=== PATIENT | female | born 1960 | race Caucasian/White ===

== ENCOUNTER 2018-09-24 17:25 | Observation (INO) | payer OTHER ==
[2018-09-24 18:11] LABS: Absolute Lymphocytes (CBC) 2.4 K/uL (0.7-4.9); Absolute Monocytes 0.5 K/uL (0.1-1.3); Absolute Neutrophil 3.2 K/uL (1.8-8.0); Basophils % 0.2 % (0-1.3); Eosinophils % 4.4 % (0-4.4); Hematocrit 39.1 % (36.0-45.0); Lymphocytes % 37.8 % (15.3-44.8); MPV 9.4 fL (7.6-11.3); Monocytes % 7.7 % (3.3-12.3); RBC Red Blood Cell Count 4.21 M/uL (3.86-4.86)
[2018-09-24] MEDS ORDERED: ENOXAPARIN 60 MG/0.6 ML SQ ONE (18:11)
[2018-09-24 18:12] LABS: Protime INR 0.96
[2018-09-24 18:32] LABS: ALT/SGPT 31 U/L (12-78); AST/SGOT 20 U/L (15-37); Albumin 4.6 g/dL (3.4-5.0); Alkaline Phosphatase 106 U/L (45-117); BUN Blood Urea Nitrogen 12 mg/dL (7-18); Bicarbonate 27 mmol/L (21-32); Bilirubin Direct < 0.1 mg/dL (0-0.2); Bilirubin Total 0.3 mg/dL (0.2-1.0); Glucose Level 122 mg/dL (74-106); Magnesium 2.4 mg/dL (1.8-2.4); NT PRO-BNP 16 pg/mL (<125); Potassium 3.5 mmol/L (3.5-5.1); Protein, Total 8.1 g/dL (6.4-8.2); Sodium Level 140 mmol/L (136-145); Troponin (Emerg Dept Use Only) < 0.02 ng/mL (0.0-0.045)
--- NOTE | 2018-09-24 19:06 | RAD REPORT ---
EXAM DESCRIPTION: RAD - Chest Single View - 09/24/2018 6:52 pm CLINICAL HISTORY: Chest pain COMPARISON: July 2017 TECHNIQUE: AP portable chest image was obtained 1819 hours . FINDINGS: No focal lung parenchymal process. Interstitial markings are similar to comparison. Heart and vasculature are normal. No measurable pleural effusion and no pneumothorax. No acute bony abnorma lity seen. No acute aortic findings suspected. IMPRESSION: No acute cardiopulmonary process. No significant interval change.
--- NOTE | 2018-09-24 19:28 | EDPHYS ---
Physician Documentation [facility] Name: Dolores Pérez Age: 58 yrs Sex: Female : 1960 Arrival Date: 09/24/2018 Time: 17:26 Bed 20 Private MD: Melvin Thao R ED Physician Xavi Crow HPI: 09/24 18:00 This 58 yrs old Female presents to ER via Ambulatory with complaints of Chest snw Pain. 18:00 Onset: The symptoms/episode began/occurred 1.5 hour(s) ago, at 16:30. Associated signs snw and symptoms: The patient has no apparent associated signs or symptoms. Modifying factors: The patient symptoms are alleviated by nothing. The patient has experienced a previous episode, approximately 2 years ago, but today's symptoms are worse. It is unknown whether or not the patient has recently seen a physician, sees Dr. Thao. Historical: - Allergies: 17:52 Aspirin; jl7 17:52 NSAIDS; jl7 17:52 peanuts; jl7 17:52 Sulfa (Sulfonamide Antibiotics); jl7 - Home Meds: 17:52 Diltiazem Oral [Active]; levothyroxine 125 mcg tab [Active]; Lipitor Oral [Active]; jl7 losartan Oral [Active]; Omeprazole Oral [Active]; Plavix Oral [Active]; - PMHx: 17:52 Asthma; High Cholesterol; Hypertension; Hypothyroidism; jl7 - PSHx: 17:52 Vocal Nodules removed; Rhinoplasty; jl7 - Immunization history:: Adult Immunizations unknown. - Social history:: Smoking status: Patient/guardian denies using tobacco. - Ebola Screening: : No symptoms or risks identified at this time. ROS: 17:58 Constitutional: Negative for fever, chills, and weight loss, Eyes: Negative for injury, snw pain, redness, and discharge, ENT: Negative for injury, pain, and discharge, Neck: Negative for injury, pain, and swelling, Respiratory: Negative for shortness of breath, cough, wheezing, and pleuritic chest pain, Abdomen/GI: Negative for abdominal pain, nausea, vomiting, diarrhea, and constipation, Back: Negative for injury and pain, : Negative for injury, bleeding, discharge, and swelling, MS/Extremity: Negative for injury and deformity, Skin: Negative for injury, rash, and discoloration, Neuro: Negative for headache, weakness, numbness, tingling, and seizure, Psych: Negative for depression, anxiety, suicide ideation, homicidal ideation, and hallucinations. 17:58 Cardiovascular: Positive for chest pain, of the left breast. Exam: 17:58 Head/Face: Normocephalic, atraumatic. Eyes: Pupils equal round and reactive to light, snw extra-ocular motions intact. Lids and lashes normal. Conjunctiva and sclera are non-icteric and not injected. Cornea within normal limits. Periorbital areas with no swelling, redness, or edema. ENT: Nares patent. No nasal discharge, no septal abnormalities noted. Tympanic membranes are normal and external auditory canals are clear. Oropharynx with no redness, swelling, or masses, exudates, or evidence of obstruction, uvula midline. Mucous membranes moist. Neck: Trachea midline, no thyromegaly or masses palpated, and no cervical lymphadenopathy. Supple, full range of motion without nuchal rigidity, or vertebral point tenderness. No Meningismus. Chest/axilla: Normal chest wall appearance and motion. Nontender with no deformity. No lesions are appreciated. Cardiovascular: Regular rate and rhythm with a normal S1 and S2. No gallops, murmurs, or rubs. Normal PMI, no JVD. No pulse deficits. Respiratory: Lungs have equal breath sounds bilaterally, clear to auscultation and percussion. No rales, rhonchi or wheezes noted. No increased work of breathing, no retractions or nasal flaring. Abdomen/GI: Soft, non-tender, with normal bowel sounds. No distension or tympany. No guarding or rebound. No evidence of tenderness throughout. Back: No spinal tenderness. No costovertebral tenderness. Full range of motion. MS/ Extremity: Pulses equal, no cyanosis. Neurovascular intact. Full, normal range of motion. Neuro: Awake and alert, GCS 15, oriented to person, place, time, and situation. Cranial nerves II-XII grossly intact. Motor strength 5/5 in all extremities. Sensory grossly intact. Cerebellar exam normal. Normal gait. Psych: Awake, alert, with orientation to person, place and time. Behavior, mood, and affect are within normal limits. 17:58 Constitutional: The patient appears alert, awake, anxious, obese, uncomfortable, hyperemic 17:58 Skin: Appearance: Color: erythematous, Temperature: cool, Moisture: dry. Vital Signs: 17:52 BP 157 / 70; Pulse 77; Resp 16 S; Pulse Ox 99% on R/A; Weight 68.04 kg (R); Height 5 jl7 ft. 7 in. (170.18 cm) (R); Pain 8/10; 19:15 BP 122 / 62; Pulse 67; Resp 18; Pulse Ox 98% on R/A; tl2 17:52 Body Mass Index 23.49 (68.04 kg, 170.18 cm) jl7 MDM: 17:43 Patient medically screened. snw 19:24 Data reviewed: vital signs, nurses notes. Data interpreted: Pulse oximetry: on room air snw is 98 %. Interpretation: normal. Counseling: I had a detailed discussion with the patient and/or guardian regarding: the historical points, exam findings, and any diagnostic results supporting the discharge/admit diagnosis, lab results, radiology results. Response to treatment: the patient's symptoms have mildly improved after treatment, 2/10 chest pain. Physician consultation: Melvin Thao MD was called at 19:26, was contacted at 19:26, regarding admission, to the telemetry unit. would like consultation with Dr. Dr. Genao. 19:26 Physician consultation: Dorian Etienne MD was contacted at 19:26, pt to Obs admit for snw Chest pain. 09/24 17:44 Order name: Basic Metabolic Panel; Complete Time: 18:35 snw 09/24 17:44 Order name: CBC with Diff; Complete Time: 18:15 snw 09/24 17:44 Order name: LFT's; Complete Time: 18:35 snw 09/24 17:44 Order name: Magnesium; Complete Time: 18:35 snw 09/24 17:44 Order name: NT PRO-BNP; Complete Time: 18:35 snw 09/24 17:44 Order name: PT-INR; Complete Time: 18:15 snw 09/24 17:44 Order name: Troponin (emerg Dept Use Only); Complete Time: 18:35 snw 09/24 17:44 Order name: XRAY Chest (1 view); Complete Time: 19:12 snw 09/24 17:44 Order name: EKG; Complete Time: 17:45 snw 09/24 17:44 Order name: Cardiac monitoring; Complete Time: 18:36 snw 09/24 17:44 Order name: EKG - Nurse/Tech; Complete Time: 18:36 snw 09/24 17:44 Order name: IV Saline Lock; Complete Time: 18:36 snw 09/24 17:57 Order name: TSH; Complete Time: 19:28 snw 09/24 17:44 Order name: Labs collected and sent; Complete Time: 18:36 snw 09/24 17:44 Order name: O2 Per Protocol; Complete Time: 18:36 snw 09/24 17:44 Order name: O2 Sat Monitoring; Complete Time: 17:58 snw Administered Medications: 18:10 Drug: Lovenox 1 mg/kg Route: Sub-Q; Site: left upper abdomen; jl7 20:56 Follow up: Response: No adverse reaction tl2 Disposition: 09/25 07:21 Co-signature as Attending Physician, Xavi Crow MD I agree with the assessment and kdr plan of care. Disposition: 09/24/18 19:27 Hospitalization ordered by Melvin Thao for Observation. Preliminary diagnosis is Chest pain, unspecified. - Bed requested for Telemetry/MedSurg (observation). - Status is Observation. tl2 - Condition is Stable. - Problem is an acute exacerbation. - Symptoms are unchanged. UTI on Admission? No Signatures: Dispatcher [employer] EDMS Xavi Crow MD MD [facility] Esperanza Redd, CARTON FORMING MACHINE TENDER-C CARTON FORMING MACHINE TENDER-Csnw Ainsley Jordan RN RN cg Hananh Rubin RN RN tl2 Dewayne Coleman RN RN jl7 Corrections: (The following items were deleted from the chart) 09/24 19:53 19:27 Hospitalization Ordered by Melvin Thao MD for Observation. Preliminary diagnosis cg is Chest pain, unspecified. Bed requested for Telemetry/MedSurg (observation). Status is Observation. Condition is Stable. Problem is an acute exacerbation. Symptoms are unchanged. UTI on Admission? No. snw 20:57 19:53 09/24/2018 19:27 Hospitalization Ordered by Melvin Thao MD for Observation. tl2 Preliminary diagnosis is Chest pain, unspecified. Bed requested for Telemetry/MedSurg (observation). Status is Observation. Condition is Stable. Problem is an acute exacerbation. Symptoms are unchanged. UTI on Admission? No. cg
--- NOTE | 2018-09-24 19:28 | ER ---
Nurse's Notes [facility] Name: Dolores Pérez Age: 58 yrs Sex: Female : 1960 Arrival Date: 09/24/2018 Time: 17:26 Bed 20 Private MD: Melvin Thao R Diagnosis: Chest pain, unspecified Presentation: 09/24 17:46 Presenting complaint: Patient states: Intermittent sharp substernal chest pain started jl7 about 1430 today; bottom of left foot is tingling and hurting hurting. Transition of care: patient was not received from another setting of care. Onset of symptoms was September 24, 2018 at 14:30. Risk Assessment: Do you want to hurt yourself or someone else? Patient reports no desire to harm self or others. Initial Sepsis Screen: Does the patient meet any 2 criteria? No. Patient's initial sepsis screen is negative. Does the patient have a suspected source of infection? No. Patient's initial sepsis screen is negative. Care prior to arrival: None. 17:46 Method Of Arrival: Ambulatory [facility] 17:46 Acuity: AARON 3 jl7 Triage Assessment: 17:52 General: Appears in no apparent distress. uncomfortable, Behavior is calm, cooperative, jl7 appropriate for age. Pain: Complains of pain in mid-sternal area Pain does not radiate. Pain currently is 8 out of 10 on a pain scale. Quality of pain is described as sharp, Pain began 4 hours ago. Is intermittent. EENT: No signs and/or symptoms were reported regarding the EENT system. Neuro: Level of Consciousness is awake, alert, obeys commands, Oriented to person, place, time, situation. Cardiovascular: Patient's skin is warm and dry. Respiratory: Airway is patent Respiratory effort is even, unlabored, Respiratory pattern is regular, symmetrical. GI: No signs and/or symptoms were reported involving the gastrointestinal system. Patient currently denies diarrhea, nausea, vomiting. : No signs and/or symptoms were reported regarding the genitourinary system. Derm: Skin is pink, warm \T\ dry. Musculoskeletal: No signs and/or symptoms reported regarding the musculoskeletal system. Historical: - Allergies: 17:52 Aspirin; jl7 17:52 NSAIDS; jl7 17:52 peanuts; jl7 17:52 Sulfa (Sulfonamide Antibiotics); jl7 - Home Meds: 17:52 Diltiazem Oral [Active]; levothyroxine 125 mcg tab [Active]; Lipitor Oral [Active]; jl7 losartan Oral [Active]; Omeprazole Oral [Active]; Plavix Oral [Active]; - PMHx: 17:52 Asthma; High Cholesterol; Hypertension; Hypothyroidism; jl7 - PSHx: 17:52 Vocal Nodules removed; Rhinoplasty; jl7 - Immunization history:: Adult Immunizations unknown. - Social history:: Smoking status: Patient/guardian denies using tobacco. - Ebola Screening: : No symptoms or risks identified at this time. Screenin:55 Abuse screen: Denies threats or abuse. Denies injuries from another. Nutritional jl7 screening: No deficits noted. Tuberculosis screening: No symptoms or risk factors identified. Fall Risk IV access (20 points). Total Ta Fall Scale indicates No Risk (0-24 pts). Assessment: 17:55 General: See triage assessment. jl7 19:16 Reassessment: Patient appears in no apparent distress at this time. Patient and/or tl2 family updated on plan of care and expected duration. Pain level reassessed. Patient is alert, oriented x 3, equal unlabored respirations, skin warm/dry/pink. awaiting results. 20:52 Reassessment: Patient appears in no apparent distress at this time. pt stable and ready tl2 for transport to floor. Pain: Denies pain. Vital Signs: 17:52 BP 157 / 70; Pulse 77; Resp 16 S; Pulse Ox 99% on R/A; Weight 68.04 kg (R); Height 5 jl7 ft. 7 in. (170.18 cm) (R); Pain 8/10; 19:15 BP 122 / 62; Pulse 67; Resp 18; Pulse Ox 98% on R/A; tl2 17:52 Body Mass Index 23.49 (68.04 kg, 170.18 cm) jl7 ED Course: 17:26 Patient arrived in ED. dl4 17:26 Melvin Thao MD is Private Physician. dl4 17:43 Esperanza Redd FNP-C [facility]. snw 17:43 Xavi Crow MD is Attending Physician. snw 17:46 Dewayne Coleman RN is Primary Nurse. jl7 17:48 Triage completed. jl7 17:52 Arm band placed on right wrist. jl7 17:55 Patient has correct armband on for positive identification. Bed in low position. Call jl7 light in reach. Side rails up X 1. telemetry monitor on. Pulse ox on. NIBP on. 17:55 Initial lab(s) drawn, by me, sent to lab. Patient maintains SpO2 saturation greater jl7 than 95% on room air. 18:09 EKG done, by player piano technician. reviewed by Xavi Crow MD. 3 18:52 XRAY Chest (1 view) In Process Unspecified. EDMS 19:27 Melvin Thao MD is Hospitalizing Provider. snw 20:52 No provider procedures requiring assistance completed. Patient admitted, IV remains in tl2 place. Administered Medications: 18:10 Drug: Lovenox 1 mg/kg Route: Sub-Q; Site: left upper abdomen; jl7 20:56 Follow up: Response: No adverse reaction tl2 Outcome: 19:27 Decision to Hospitalize by Provider. snw 20:52 Admitted to Tele accompanied by tech, family with patient, via wheelchair, room 415, tl2 with chart, Report called to JADEN Guerrero 20:52 Condition: stable 20:52 Discharge instructions given to patient, Instructed on the need for admit. 20:57 Patient left the ED. tl2 Signatures: Dispatcher [employer] EDNM Esperanza Redd, PIER WORKER-C PIER WORKER-Csnw Hannah Rubin RN RN tl2 Dewayne Coleman RN RN jl7 Christiane Tejada 3 Sami Mcgee 4
[2018-09-25 00:34] VITALS: BMI 23.5
[2018-09-25 04:55] LABS: Absolute Lymphocytes (CBC) 2.4 K/uL (0.7-4.9); Absolute Monocytes 0.4 K/uL (0.1-1.3); Absolute Neutrophil 2.6 K/uL (1.8-8.0); Basophils % 0.3 % (0-1.3); Eosinophils % 4.4 % (0-4.4); Lymphocytes % 42.9 % (15.3-44.8); MPV 9.8 fL (7.6-11.3); Monocytes % 7.1 % (3.3-12.3); RBC Red Blood Cell Count 3.76 M/uL (3.86-4.86)
[2018-09-25 05:06] LABS: BUN Blood Urea Nitrogen 10 mg/dL (7-18); Bicarbonate 33 mmol/L (21-32); Glucose Level 112 mg/dL (74-106); Potassium 3.9 mmol/L (3.5-5.1); Sodium Level 144 mmol/L (136-145)
[2018-09-25 05:38] LABS: Urine Appearance CLEAR; Urine Bilirubin NEGATIVE (NEG); Urine Blood NEGATIVE (NEG); Urine Color YELLOW; Urine Glucose 1+ (NEG); Urine Protein NEGATIVE (NEG); Urine Urobilinogen 0.2 mg/dL (0.2-1.0)
[2018-09-25 05:46] LABS: Urine Microscopic Reflex NO UMIC
--- NOTE | 2018-09-25 06:02 | EKG ---
Test Date: 2018-09-24 Test Time: 17:36:18 Computer Scientist: BRYSON MEASUREMENT RESULTS: Intervals: Rate: 68 NH: 156 QRSD: 90 QT: 408 QTc: 433 [place]: P: 58 NH: 156 QRS: 30 T: 13 INTERPRETIVE STATEMENTS: Normal sinus rhythm Normal ECG Compared to ECG 11/09/2016 10:25:03 no significant change from previous ECG Electronically Signed On 09-25-18 06:01:54 CDT by Jax Genao
[2018-09-25] MEDS ORDERED: ALBUTEROL INHALER 60 PUFF/8 GM IH PRN (08:17)
[2018-09-25] MEDS ORDERED: ALPRAZOLAM 0.25 MG TABLET PO SCH ×2 (09:00→12:00)
[2018-09-25] MEDS ORDERED: HOME MED 1 EA UNK (Budesonide/Formoterol Fumarate [Symbicort 80-4.5 Mcg Inhaler] 2 PUFF) IH SCH (09:00)
[2018-09-25] MEDS ORDERED: MONTELUKAST 10 MG TAB PO SCH (09:00)
[2018-09-25] MEDS ORDERED: LOSARTAN POTASSIUM 50 MG TABLET PO SCH (09:00)
[2018-09-25] MEDS ORDERED: CLOPIDOGREL 75 MG TABLET PO SCH (09:00)
[2018-09-25] MEDS ORDERED: ENOXAPARIN 80 MG/0.8 ML SQ SCH (09:00)
[2018-09-25] MEDS ORDERED: ENOXAPARIN 60 MG/0.6 ML SQ SCH (09:00)
--- NOTE | 2018-09-25 09:46 | CON ---
Chief Complaint: Chest pain. History Of Present Illness: The patient first started having pain in the sole of her left foot. The n, she noted sharp fleeting pains throughout various parts of her chest. Since she has been in the h ospital, EKGs and cardiac enzymes are normal. The patient has no prior history of heart disease. Mena beth does not have diabetes or history of tobacco use. She has dyslipidemia that seems to be well treat ed. She has had a pharmacological stress test in the past, nuclear, at least once before, I believe twice. The last one was in 2017; it was negative. Outpatient Medications: Nexium, Lipitor, losartan, Plavix, levothyroxine, albuterol, diltiazem, alpr azolam, Singulair, and budesonide. Physical Examination: Vital Signs: 5 feet 7 inches, 150 pounds. General: Alert, oriented, pleasant, not in distress. Lungs: Clear. Carotids: No bruit. Heart: Normal. Abdomen: Soft. Extremities: Normal. Imaging: EKG normal. Laboratory Data: Normal. Recommendation: I recommend we do a stress test. If she can pass that, I do not think she needs to stay in the hospital any longer. KALYN Voice ID: [id number] Report ID: [id number]
--- NOTE | 2018-09-25 14:21 | TREADMILL ---
70% H.R.: 113 85% H.R.: 137 90% H.R.: 145 100% H.R.: 161 DX: ATYPICAL CHEST PAIN Date of Study: 09/25/2018 Ht: 5 7 Wt: 150 lb 0 oz Consulting Physician: BRITTON MEDICATIONS: XANAX, PLAVIX, LIPITOR, COZAAR, SYNTHROID HISTORY: 58 YEAR OLD FEMALE, HISTORY OF HYPERTENSION, HYPERLIPIDEMIA, HYPOTHYROIDISM, ASTHMA, GERD, NON-SMNOKER, OCCASIONAL DRINKER PHYSICIAL EXAMINATION: RESTING B.P.: 153/81 RESTING H.R.: 81 RESTING EKG: NORMAL PROTOCOL: JEFE, ROUTINE EXERCISE TIME: 8:01 MAXIMUM HEART RATE: 139 /86 % OF PREDICTED B.P. AT PEAK STRESS: 109/88 H.R. AT 1 MINUTE POST EXERCISE: 125 IMPRESSION: ROUTINE TREADMILL STOPPED DUE TO TARGET HEART RATE REACHED. NO SUPRAVENTRICULAR TACHYCARDIA, VENTRICULAR TACHYCARDIA, PREMATURE VENTRICULAR TACHYCARDIA. ONE PREMATURE ATRIAL COMPLEX IN RECOVERY. PATIENT REPORTS NO CHEST PAIN. NO ST DEPRESSION WITH LEXISCAN STRESS. NORMAL STRESS TEST.
[2018-09-25 15:04] VITALS: O2SAT 98
[2018-09-25 16:38] VITALS: BP 126/68; TEMP 97.9
[2018-09-25] MEDS ORDERED: ATORVASTATIN 10 MG TAB PO SCH (21:00)
[2018-09-25] MEDS ORDERED: PANTOPRAZOLE 40MG TABLET PO SCH (21:00)
--- NOTE | 2018-09-25 21:19 | EKG ---
Test Date: 2018-09-25 Test Time: 08:24:52 Ring Rolling Machine Operator: KIMBERLEE MEASUREMENT RESULTS: Intervals: Rate: 72 OH: 160 QRSD: 92 QT: 400 QTc: 438 [place]: P: 53 OH: 160 QRS: 27 T: 35 INTERPRETIVE STATEMENTS: Normal sinus rhythm Normal ECG Compared to ECG 09/24/2018 17:36:18 No significant changes Electronically Signed On 09-25-18 21:17:55 CDT by Jax Genao
--- NOTE | 2018-09-26 01:37 | HP ---
Date of Admission: 09/24/2018 Final Diagnoses: 1.Chest pain, nonspecific. 2.Asthma. 3.Hypertension. 4.Hyperlipidemia. History: A 58-year-old female who does not have documented coronary artery disease, was brought to [facility] emergency room with chest pain. After evaluation, her EKG and troponin did not show any acute inj ury. The patient was admitted for observation. Past Medical History: Positive for hypertension, hyperlipidemia, asthma. Family History: Diabetes present, hypertension present. Personal History: Nonsmoker. Allergies: MULTIPLE; INCLUDES ASPIRIN AND SULFA. Home Medicines: Please refer to the chart. Review of Systems: The patient denied any fever, chills, rigors. Physical Examination: General: Revealed a 58-year-old female, not in acute distress. HEENT: Negative. Neck: Supple. JVD negative. Chest: Clear. Heart: Regular. Abdomen: Soft. Extremities: No edema. Laboratory Data: Troponin negative. EKG and chest x-ray, negative. Assessment: 1.Chest pain. 2.Hypertension. 3.Hyperlipidemia. 4.Asthma. 5.Hypothyroidism. 6.Anxiety disorder. Plan: The patient had stress test; it is negative. In view of negative troponin, normal stress test . The patient will be discharged and followed up in the office. CHEL/MAX Voice ID: [id number]
[2018-09-26] MEDS ORDERED: LEVOTHYROXINE SOD 0.125 MG TAB PO SCH (06:00)
[2018-09-26] MEDS ORDERED: LEVOTHYROXINE SOD 0.1 MG TAB PO SCH (06:00)
== END 2018-09-25 16:48 | disposition home or self-care (01) ==
LOC: ER 17:25 → ERHOLD 19:41 → 4TH 20:25
PROVIDERS: ADMIT Internal Medicine; ATTEND Internal Medicine
DX: R07.9 Chest pain, unspecified (principal); J45.909 Unspecified asthma, uncomplicated; I10 Essential (primary) hypertension; E78.5 Hyperlipidemia, unspecified; E03.9 Hypothyroidism, unspecified; F41.9 Anxiety disorder, unspecified; Z88.6 Allergy status to analgesic agent; Z88.2 Allergy status to sulfonamides
CPT/HCPCS: 36415; 71045; 80048; 80076; 81003; 83735; 83880; 84443; 84484; 85025; 85610; 93005; 93017; 96372; 99285; G0378; J1650

== ENCOUNTER 2018-12-16 14:52 | Emergency (ER) | payer OTHER ==
[2018-12-16] MEDS ORDERED: IPRATROPIUM BROM 0.5MG/2.5ML ONE (15:38)
[2018-12-16] MEDS ORDERED: ALBUTEROL 2.5 MG/3 ML NEB SOL ONE (15:38)
--- NOTE | 2018-12-16 15:45 | RAD REPORT ---
EXAM DESCRIPTION: RAD - Chest Pa And Lat (2 Views) - 12/16/2018 3:23 pm CLINICAL HISTORY: Cough and congestion COMPARISON: September 24 TECHNIQUE: PA and lateral views of the chest were obtained. FINDINGS: The lungs are clear of focal infiltrate. No failure or volume overload. Lung markings are similar to comparison. Heart size is normal and central vasculature is within normal limits. No pl eural effusion or pneumothorax seen. No acute bony finding noted. No aortic abnormality. IMPRESSION: No acute cardiopulmonary process.
--- NOTE | 2018-12-16 16:34 | ER ---
Nurse's Notes [facility] Name: Dolores Pérez Age: 58 yrs Sex: Female : 1960 Arrival Date: 12/16/2018 Time: 14:57 Bed 28 Private MD: Melvin Thao R Diagnosis: Cough Presentation: 12/16 14:59 Presenting complaint: Patient states: lasr Friday, i have a high fever and went to my PCP, and was told i have bronchitis and asthma, was given an inhaler and its not working on me right now; i finished Augmentin last Friday and prednisone 2x a day;. Transition of care: patient was not received from another setting of care. Onset of symptoms was December 16, 2018. Risk Assessment: Do you want to hurt yourself or someone else? Patient reports no desire to harm self or others. Initial Sepsis Screen: Does the patient meet any 2 criteria? No. Patient's initial sepsis screen is negative. Does the patient have a suspected source of infection? No. Patient's initial sepsis screen is negative. Care prior to arrival: None. 14:59 Method Of Arrival: Ambulatory 14:59 Acuity: AARON 3 hj Historical: - Allergies: 15:02 Aspirin; 15:02 NSAIDS; 15:02 peanuts; 15:02 Sulfa (Sulfonamide Antibiotics); - Home Meds: 15:35 Diltiazem Oral [Active]; levothyroxine 125 mcg tab [Active]; rv - PMHx: 15:02 Asthma; High Cholesterol; Hypertension; Hypothyroidism; - PSHx: 15:02 Vocal Nodules removed; Rhinoplasty; hj - Immunization history:: Adult Immunizations up to date. - Social history:: Smoking status: Patient/guardian denies using tobacco, never smoked. - Ebola Screening: : No symptoms or risks identified at this time. Screenin:34 Abuse screen: Denies threats or abuse. Denies injuries from another. Nutritional rv screening: No deficits noted. Tuberculosis screening: No symptoms or risk factors identified. Fall Risk None identified. Assessment: 15:33 General: Appears in no apparent distress. comfortable, Behavior is calm, cooperative. rv Pain: Denies pain. Neuro: Level of Consciousness is awake, alert, obeys commands, Oriented to person, place, time, situation. Cardiovascular: Patient's skin is warm and dry. Respiratory: Airway is patent. GI: No signs and/or symptoms were reported involving the gastrointestinal system. : No signs and/or symptoms were reported regarding the genitourinary system. EENT: No signs and/or symptoms were reported regarding the EENT system. Derm: Skin is intact. Musculoskeletal: No signs and/or symptoms reported regarding the musculoskeletal system. Vital Signs: 15:02 BP 146 / 75; Pulse 79; Resp 18; Temp 98.7(O); Pulse Ox 98% on R/A; Weight 65.32 kg; hj Height 5 ft. 7 in. (170.18 cm); Pain 0/10; 15:30 BP 130 / 64; Pulse 73; Resp 17; Pulse Ox 99% on R/A; rv 16:00 BP 130 / 60; Pulse 76; Resp 18; Temp 97.9; Pulse Ox 100% on R/A; rv 15:02 Body Mass Index 22.55 (65.32 kg, 170.18 cm) hj 15:30 before breathing treatment rv 16:00 after breathing treatment rv ED Course: 14:57 Patient arrived in ED. rg4 14:58 Melvin Thao MD is Private Physician. rg4 15:02 Triage completed. hj 15:02 Arm band placed on left wrist. hj 15:04 Felicia Chavez FNP-C is [facility]. kb 15:04 Oniel Ag MD is Attending Physician. kb 15:06 Martínez Rod, JADEN is Primary Nurse. rv 15:24 Chest Pa And Lat (2 Views) XRAY In Process Unspecified. EDMS 15:34 Patient has correct armband on for positive identification. Bed in low position. Call rv light in reach. Side rails up X 1. Pulse ox on. NIBP on. 16:28 No provider procedures requiring assistance completed. Patient did not have IV access rv during this emergency room visit. 16:34 Melvin Thao MD is Referral Physician. kb Administered Medications: 15:30 Drug: DuoNeb (3:1) (2.5 mg - 0.5 mg) 3 ml Route: Nebulizer; rv 16:28 Follow up: Response: No adverse reaction rv Outcome: 16:34 Discharge ordered by . kb 16:41 Discharged to home ambulatory. rv 16:41 Condition: improved 16:41 Discharge instructions given to patient, Instructed on discharge instructions, follow up and referral plans. medication usage, Demonstrated understanding of instructions, follow-up care, medications, Prescriptions given X 1. 16:42 Patient left the ED. rv Signatures: Dispatcher [employer] EDMS Felicia Chavez, KEON CEE-Mohsen Scruggs RN RN Roselyn Jordan rg4 Martínez Rod RN RN rv Corrections: (The following items were deleted from the chart) 15:04 15:02 Pulse 79bpm; Resp 18bpm; Pulse Ox 98% RA; Temp 98.7F Oral; 65.32 kg; Height 5 ft. hj 7 in.; BMI: 22.5; Pain 0/10; hj 15:13 14:59 Presenting complaint: Patient states: las Friday, i have a high fever and went to my PCP, and told i have bronchitis and asthma, was given an inhaler and not working to me right now; i finished Augmentin last Friday and prednisone 2x a day;
--- NOTE | 2018-12-16 16:34 | EDPHYS ---
Physician Documentation [facility] Name: Dolores Pérez Age: 58 yrs Sex: Female : 1960 Arrival Date: 12/16/2018 Time: 14:57 Bed 28 Private MD: Melvin Thao R ED Physician Oniel Ag HPI: 12/16 16:30 This 58 yrs old Female presents to ER via Ambulatory with complaints of Cough.kb 16:30 The patient or guardian reports cough, that is intermittent, described as moderate, kb with no sputum, difficulty breathing. Onset: The symptoms/episode began/occurred 2 week(s) ago. Severity of symptoms: At their worst the symptoms were moderate, in the emergency department the symptoms are unchanged. Modifying factors: The symptoms are alleviated by nothing, the symptoms are aggravated by nothing. Associated signs and symptoms: The patient has no apparent associated signs or symptoms. The patient has not experienced similar symptoms in the past. The patient has not recently seen a physician. Pt reports she started having a cough, dyspnea and fever 2 weeks ago. Was seen by Dr Thao and given antibiotics. Finished those and fever went away, but pt still has the cough. Went to Dr Orourke 2 days ago and was prescribed prednisone. Came in today because she was coughing a lot at work and they told her she needed to get checked out. Reports the cough makes her short of breath. Historical: - Allergies: 15:02 Aspirin; hj 15:02 NSAIDS; hj 15:02 peanuts; hj 15:02 Sulfa (Sulfonamide Antibiotics); hj - Home Meds: 15:35 Diltiazem Oral [Active]; levothyroxine 125 mcg tab [Active]; rv - PMHx: 15:02 Asthma; High Cholesterol; Hypertension; Hypothyroidism; hj - PSHx: 15:02 Vocal Nodules removed; Rhinoplasty; hj - Immunization history:: Adult Immunizations up to date. - Social history:: Smoking status: Patient/guardian denies using tobacco, never smoked. - Ebola Screening: : No symptoms or risks identified at this time. ROS: 16:32 Constitutional: Negative for fever, chills, and weight loss, ENT: Negative for injury, kb pain, and discharge, Neck: Negative for injury, pain, and swelling, Cardiovascular: Negative for chest pain, palpitations, and edema, Abdomen/GI: Negative for abdominal pain, nausea, vomiting, diarrhea, and constipation, Back: Negative for injury and pain, : Negative for injury, bleeding, discharge, and swelling, MS/Extremity: Negative for injury and deformity, Skin: Negative for injury, rash, and discoloration, Neuro: Negative for headache, weakness, numbness, tingling, and seizure. 16:32 Respiratory: Positive for cough, shortness of breath, Negative for dyspnea on exertion, hemoptysis, orthopnea, pleurisy, sputum production, wheezing. Exam: 16:32 Constitutional: This is a well developed, well nourished patient who is awake, alert, kb and in no acute distress. Head/Face: Normocephalic, atraumatic. ENT: Nares patent. No nasal discharge, no septal abnormalities noted. Tympanic membranes are normal and external auditory canals are clear. Oropharynx with no redness, swelling, or masses, exudates, or evidence of obstruction, uvula midline. Mucous membranes moist. Neck: Trachea midline, no thyromegaly or masses palpated, and no cervical lymphadenopathy. Supple, full range of motion without nuchal rigidity, or vertebral point tenderness. No Meningismus. Chest/axilla: Normal chest wall appearance and motion. Nontender with no deformity. No lesions are appreciated. Cardiovascular: Regular rate and rhythm with a normal S1 and S2. No gallops, murmurs, or rubs. Normal PMI, no JVD. No pulse deficits. Respiratory: Lungs have equal breath sounds bilaterally, clear to auscultation and percussion. No rales, rhonchi or wheezes noted. No increased work of breathing, no retractions or nasal flaring. Abdomen/GI: Soft, non-tender, with normal bowel sounds. No distension or tympany. No guarding or rebound. No evidence of tenderness throughout. Skin: Warm, dry with normal turgor. Normal color with no rashes, no lesions, and no evidence of cellulitis. MS/ Extremity: Pulses equal, no cyanosis. Neurovascular intact. Full, normal range of motion. Neuro: Awake and alert, GCS 15, oriented to person, place, time, and situation. Cranial nerves II-XII grossly intact. Motor strength 5/5 in all extremities. Sensory grossly intact. Cerebellar exam normal. Normal gait. Vital Signs: 15:02 BP 146 / 75; Pulse 79; Resp 18; Temp 98.7(O); Pulse Ox 98% on R/A; Weight 65.32 kg; hj Height 5 ft. 7 in. (170.18 cm); Pain 0/10; 15:30 BP 130 / 64; Pulse 73; Resp 17; Pulse Ox 99% on R/A; rv 16:00 BP 130 / 60; Pulse 76; Resp 18; Temp 97.9; Pulse Ox 100% on R/A; rv 15:02 Body Mass Index 22.55 (65.32 kg, 170.18 cm) hj 15:30 before breathing treatment rv 16:00 after breathing treatment rv MDM: 15:04 Patient medically screened. kb 16:28 Data reviewed: vital signs, nurses notes. Data interpreted: Pulse oximetry: on room air kb is 100 %. Interpretation: normal. Counseling: I had a detailed discussion with the patient and/or guardian regarding: the historical points, exam findings, and any diagnostic results supporting the discharge/admit diagnosis, lab results, radiology results, the need for outpatient follow up, a family practitioner, to return to the emergency department if symptoms worsen or persist or if there are any questions or concerns that arise at home. 16:32 ED course: Lungs clear bilaterally. O2 sat has maintained 98-100% during ER visit. kb x-ray is negative. Will send home with brad dunn for cough. Pt to complete prednisone as prescribed by DR Orourke and follow back up with DR Thao. 12/16 15:11 Order name: Flu kb 12/16 15:12 Order name: Influenza Screen (A ; Complete Time: 16:07 EDMS 12/16 15:10 Order name: Chest Pa And Lat (2 Views) XRAY; Complete Time: 16:00 kb Administered Medications: 15:30 Drug: DuoNeb (3:1) (2.5 mg - 0.5 mg) 3 ml Route: Nebulizer; rv 16:28 Follow up: Response: No adverse reaction rv Disposition: 12/16/18 16:34 Discharged to Home. Impression: Cough. - Condition is Stable. - Discharge Instructions: Asthma, Acute Bronchospasm, Cough, Adult, [id number]. - Prescriptions for Daniel Dunn 100 mg Oral Capsule - take 1 capsule by ORAL route every 8 hours As needed; 15 capsule. - Medication Reconciliation Form, Thank You Letter, Antibiotic Education, Prescription Opioid Use, Work release form form. - Follow up: Emergency Department; When: As needed; Reason: Worsening of condition. Follow up: Melvin Thao MD; When: 2 - 3 days; Reason: Recheck today's complaints, Continuance of care, Re-evaluation by your physician. Signatures: Dispatcher [employer] Feliica Chavez, COLEMAN-C GROCERY SACKER-Mohsen Scruggs, RN RN Martínez Rod RN RN rv Corrections: (The following items were deleted from the chart) 16:42 16:34 12/16/2018 16:34 Discharged to Home. Impression: Cough. Condition is Stable. rv Forms are Medication Reconciliation Form, Thank You Letter, Antibiotic Education, Prescription Opioid Use. Follow up: Emergency Department; When: As needed; Reason: Worsening of condition. Follow up: Melvin Thao; When: 2 - 3 days; Reason: Recheck today's complaints, Continuance of care, Re-evaluation by your physician. kb
[2018-12-16 17:10] VITALS: BP 130/60; TEMP 97.9; O2SAT 100
== END 2018-12-16 16:42 | disposition home or self-care (01) ==
LOC: ER 14:52
DX: R05 Cough (principal); I10 Essential (primary) hypertension; E03.9 Hypothyroidism, unspecified; Z88.2 Allergy status to sulfonamides; E78.00 Pure hypercholesterolemia, unspecified; Z88.6 Allergy status to analgesic agent; Z91.010 Allergy to peanuts
CPT/HCPCS: 71046; 87804; 94640; 99284

== ENCOUNTER 2019-11-05 18:55 | Emergency (ER) | payer OTHER ==
--- OUTSIDE RECORDS SUMMARY | 2019-11-05 18:58 | XMS REPORT | Summary of Care ---
:1960 Author Organization [facility] - Health Address [address] [place] [address] Care Team Providers Name Role Phone Melvin Talley MD Unavailable Torres Talley MD Primary Care Provider Reason for Visit Reason Comments Nausea Diarrhea Vomiting Auth/Cert Status Reason Specialty Diagnoses / Referred By Referred To Procedures Contact Contact Emergency Medicine Ad[facility] Em ergency Dept [address] [facility] [place] [phone] Fax: Encounter Details Date Type Department Care Team Description 03/11/2019 Emergency ADC-Emergency Cristobal Kaiser MD Vomiting, intractability Department [address] [place] [address] of vomiting not [address] [facility] [address] specified, [place] [address] nausea not specified, unspecified vomiting type (Breann jania Dx) Allergies Active Allergy Reactions Severity Noted Date Comments Aspirin Rash 10/14/2017 Nsaids (Non-Steroidal Hives 10/14/2017 Anti-Inflammatory Drug) Peanut Anaphylaxis 04/11/2018 Prednisone Other - See comments 04/11/2018 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 Sesame Diarrhea 03/11/2019 Sulfa (Sulfonamide Antibiotics) Rash 8 documented as of this encounter (statuses as of 03/11/2019) Medications Medication Sig Dispensed Refills Start Date End Date Status ALPRAZolam 0.25 mg TAKE 1 TABLET BY 0 09/30/2017 Active tablet MOUTH EVERY DAY NEEDED SYMBICORT 160-4.5 TAKE 2 PUFFS BY 5 10/01/2017 Active mcg/actuation inhaler MOUTH TWICE A DAY clopidogrel 75 mg TAKE 1 TABLET BY 2 08/12/2017 Active tablet MOUTH EVERY MORNING diltiazem 60 mg tablet TAKE 1 TABLET BY 2 09/30/2017 Active MOUTH TWICE A DAY losartan 25 mg tablet TAKE 1 TABLET BY 0 08/22/2017 Active MOUTH EVERY MORNING atorvastatin 10 mg Take 10 mg by 0 Active tablet mouth at bedtime. omeprazole 20 mg Take 20 mg by 0 Active capsule mouth daily. levothyroxine 125 mcg TAKE 1 TABLET BY 90 tablet 2 10/14/2017 Active tablet MOUTH EVERY MORNING benzonatate 100 mg Take 1 capsule 14 capsule 0 04/11/2018 Active capsule by mouth 3 (three) times daily as needed for Cough. acetaminophen-codeine Take 1 tablet by 12 tablet 0 04/11/2018 Active (TYLENOL-CODEINE #3) mouth every 4 300-30 mg tablet (four) hours as needed for Pain (scale 7-10). acetaminophen-codeine Take 1 tablet by 12 tablet 0 04/11/2018 Active (TYLENOL-CODEINE #3) mouth every 4 300-30 mg tablet (four) hours as needed for Pain (scale 7-10). dicyclomine (BENTYL) 10 Take 1 capsule 20 capsule 0 03/11/2019 Active mg capsuleIndications: by mouth 4 Vomiting, (four) times intractability of daily. vomiting not specified, presence of nausea not specified, unspecified vomiting type ondansetron 4 mg Take 1 tablet by 20 tablet 0 03/11/2019 Active disintegrating mouth every 4 tabletIndications: (four) hours as Vomiting, needed for intractability of Nausea and vomiting not specified, Vomiting (N/V). presence of nausea not specified, unspecified vomiting type documented as of this encounter (statuses as of 03/11/2019) Active Problems Problem Noted Date Primary hypothyroidism 10/14/2017 documented as of this encounter (statuses as of 03/11/2019) Social History Tobacco Use Types Packs/Day Years Used Date Never Smoker Sex Assigned at Date Recorded Not on file Job Start Date Occupation Industry Not on file Not on file Not on file Travel History Travel Start Travel End No recent travel history available. documented as of this encounter Last Filed Vital Signs Vital Sign Reading Time Taken Comments Blood Pressure 141/66 03/11/2019 4:00 PM CDT Pulse 97 03/11/2019 4:00 PM CDT Temperature 36.1 C (96.9 F) 03/11/2019 2:13 PM CDT Respiratory Rate 18 03/11/2019 4:00 PM CDT Oxygen Saturation 97% 03/11/2019 4:00 PM CDT Inhaled Oxygen Concentration - - Weight 68 kg (150 lb) 03/11/2019 2:12 PM CDT Height - - Body Mass Index 23.49 04/11/2018 4:32 PM CDT documented in this encounter Discharge Instructions InstructionsCristobal Kaiser MD - 03/11/2019 RETURN FOR ANY QUESTIONS OR CONCERNS Today you were seen by Cristobal Kaiser Jr., MD You were seen today for Chief Complaint Patient presents with Nausea Diarrhea Vomiting Your ER diagnosis was ICD-10-CM ICD-9-CM 1. Vomiting, intractability of vomiting not specified, presence of nausea not specified, unspecifiedvomiting type R11.10 787.03 NO LIFE-THREATENING FINDINGS ON TODAY'S EXAM. YOUR PRESCRIPTIONS : Check out [employer] for medication discounts Medication List ASK your doctor about these medications * acetaminophen-codeine 300-30 mg tablet Commonly known as: TYLENOL-CODEINE #3 Take 1 tablet by mouth every 4 (four) hours as needed for Pain (scale 7-10). * acetaminophen-codeine 300-30 mg tablet Commonly known as: TYLENOL-CODEINE #3 Take 1 tablet by mouth every 4 (four) hours as needed for Pain (scale 7-10). ALPRAZolam 0.25 mg tablet Commonly known as: XANAX atorvastatin 10 mg tablet Commonly known as: LIPITOR benzonatate 100 mg capsule Commonly known as: TESSALON PERLES Take 1 capsule by mouth 3 (three) times daily as needed for Cough. clopidogrel 75 mg tablet Commonly known as: PLAVIX diltiazem 60 mg tablet Commonly known as: CARDIZEM levothyroxine 125 mcg tablet Commonly known as: SYNTHROID TAKE 1 TABLET BY MOUTH EVERY MORNING losartan 25 mg tablet Commonly known as: COZAAR omeprazole 20 mg capsule Commonly known as: PRILOSEC SYMBICORT 160-4.5 mcg/actuation inhaler Generic drug: budesonide-formoterol * This list has 2 medication(s) that are the same as other medications prescribed for you. Read thedirections carefully, and ask your doctor or other care provider to review them with you. ER precautions and follow up : 1. Return to ER if your symptoms should worsen or fail to improve within 72 hours. 2. The care provided in the emergency room was for acute problems only. 3. You should follow up with your primary care provider within 72 hours. 4. Fill and take all your medications as prescribed. 5. Make sure you are staying adequately hydrated. Busque attencion immediatamente si usted tiene los sitomas sigue, vuelve peor o si hay sitomas nuevas o para cualquiera preoccupacion incluyendo dolor del pecho, falta aire, se siente debile, mas fievre, mas dolor, nausea, vomitando, sangrando que no es normal, confusion, baja or pierdas conciencia. MAY FOLLOW-UP WITH A PROVIDER OF YOUR CHOICE, SUCH : 1. A PHYSICIAN OF YOUR CHOICE 2. [facility], . LOCATIONS IN [facility] 3. [facility], [address] [place] [address]; [phone] OR, IF YOU WISH TO FOLLOW-UP WITHIN THE [facility], MAY TRY THESE OPTIONS (CLINIC APPOINTMENTS AVAILABLE ON [id number] BASIS): 1. SCHEDULE AN APPOINTMENT ONLINE AT WWW[facility] 2. OR CALL THE [facility] ACCESS [facility]ENTER AT OR 3. OR CALL YOUR [facility] PHYSICIAN'S OFFICE DIRECTLY IF YOU ARE ALREADY AN ESTABLISHED [facility] PATIENT. [facility] RETURN TO WORK / SCHOOL EXCUSE Dolores Pérez WAS SEEN IN THE ER AND DISCHARGED 03/11/2019 TODAY, 4:24 PM & May return to Work / School / Incarceration on X with activity as tolerated indicated below. ___The following limitations apply until pt is seen by Physician and cleared to return to normal activity. _X_ Off for two days and return to activity as tolerated at work or school ___ No Sports ___ No work ___ Do not return until fever free for 24 hours. ___ No school CRISTOBAL KAISER Jr., MD [facility] EMERGENC[facility] DEPRTMENT [address] [place] [address] [place] [address] ### The patient may have been given Narcotic pain medications during their stay in the ED that may show up on a Drug Screen. The hospital discharge paper work will identify these medications. AttachmentsThe following attachments cannot be sent through Care Everywhere. Vomiting and Diarrhea,Self-Care for (Bulgarian)documented in this encounter Plan of Treatment Health Maintenance Due Date Last Done Comments HEPATITIS C (HCV) SCREEN 1960 DTaP,Tdap,and Td Vaccines (1 - 1978 Tdap) PAP SMEAR 1980 MAMMOGRAM 1999 COLONOSCOPY 2009 Zoster Recombinant Vaccine 2009 (SHINGRIX) (1 of 2) INFLUENZA VACCINE (Retired 03/07/2019 version) PNEUMOCOCCAL 0-64 YEARS COMBINED Aged Out No longer eligible based on SERIES patient's age to complete this topic documented as of this encounter Procedures Procedure Name Priority Date/Time Associated Diagnosis Comme nts CBC WITH STAT 03/11/2019 2:53 Vomiting, Results for this DIFFERENTIAL PM CDT intractability of procedure are in vomiting not the results specified, presence of secti on. nausea not specified, unspecified vomiting type ACTIVATED PARTIAL STAT 03/11/2019 2:53 Vomiting, Result s for this THRMPLAS VANI PM CDT intractability of procedure are in vomiting not the results specified, presence of secti on. nausea not specified, unspecified vomiting type PROTHROMBIN TIME / STAT 03/11/2019 2:53 Vomiting, Resul ts for this INR PM CDT intractability of procedure are in vomiting not the results specified, presence of secti on. nausea not specified, unspecified vomiting type CBC WITH DIFF Routine 03/11/2019 2:53 Vomiting, Results fo r this PM CDT intractability of procedure are in vomiting not the results specified, presence of secti on. nausea not specified, unspecified vomiting type BASIC METABOLIC STAT 03/11/2019 2:53 Vomiting, Results for this PANEL (NA, K, CL, PM CDT intractability of proce dure are in CO2, GLUCOSE, BUN, vomiting not the resul ts CREATININE, CA) specified, presence of se ction. nausea not specified, unspecified vomiting type HEPATIC FUNCTION STAT 03/11/2019 2:53 Vomiting, Results for this PANEL (58131) PM CDT intractability of procedure are in (ALB,T.PRO,BILI vomiting not the results T,BU/BC,ALT,AST,ALK specified, presence o f section. PHOS) nausea not specified, unspecified vomiting type LIPASE STAT 03/11/2019 2:53 Vomiting, Results for this PM CDT intractability of procedure are in vomiting not the results specified, presence of secti on. nausea not specified, unspecified vomiting type NOTICE OF PRIVACY Routine 03/11/2019 1:56 PRACTICES PM CDT documented in this encounter Results CBC WITH DIFFERENTIAL (03/11/2019 2:53 PM CDT) Pathologist Sig nature WBC 9.55 4.30 - 11.10 [facility] 10*3/L [facility] RBC 4.18 3.93 - 5.25 [facility] 10*6/L [facility] HGB 13.3 11.6 - 15.0 [facility] g/dL [facility] HCT 39.1 35.7 - 45.2 % [facility] MCV 93.5 80.6 - 95.5 fL [facility] MCH 31.8 25.9 - 32.8 pg [facility] MCHC 34.0 31.6 - 35.1 [facility] g/dL [facility] RDW-SD 44.3 39.0 - 49.9 fL [facility] RDW-CV 12.9 12.0 - 15.5 % [facility] PLT 217 166 - 358 [facility] 10*3/L [facility] MPV 10.9 9.5 - 12.9 fL [facility] NRBC/100 WBC 0.0 0.0 - 10.0 /100 [facility] WBCs [facility] NRBC x10^3 <0.01 10*3/L [facility] GRAN MAT (NEUT) % 86.3 % [facility] IMM GRAN % 0.50 % [facility] LYMPH % 8.8 % [facility] MONO % 4.0 % [facility] EOS % 0.2 % [facility] BASO % 0.2 % [facility] GRAN MAT x10^3(ANC) 8.24 (H) 1.88 - 7.09 [facility] 10*3/uL HOSPITAL LAB[facility]ATORY IMM GRAN x10^3 0.05 0.00 - 0.06 [facility] 10*3/uL [facility] LYMPH x10^3 0.84 (L) 1.32 - 3.29 [facility] 10*3/uL [facility] MONO x10^3 0.38 0.33 - 0.92 [facility] 10*3/uL [facility] EOS x10^3 <0.03 (L) 0.03 - 0.39 [facility] 10*3/uL [facility] BASO x10^3 <0.03 0.01 - 0.07 [facility] 10*3/uL [facility] Specimen Blood - VENOUS Performing Organization Address City/[facility]/Zipcode Phone Number [facility] CLIA: [id number], [address] [place] [address] Prothrombin Time (PT) / INR (03/11/2019 2:53 PM CDT) PROTIME PATIENT 12.0 12.0 - 14.7 [facility] LABORATORY INR 0.9Comment: Normal [facility] INR <1.1; Warfarin [facility] Therapeutic range LABORATORY 2.0 to 3.0 or 2.5 to 3.5, depending upon the indications. Specimen Blood - VENOUS Performing Organization Address [facility] Phone Number [facility] CLIA: [id number], [address] [place] [address] aPTT (03/11/2019 2:53 PM CDT) Pathologist Sig nature APTT Patient 22 (L) 23 - 38 Seconds [facility] Specimen Blood - VENOUS Narrative Performed At The [facility] patient population mean normal value [facility] for aPTT is 30 seconds. Performing Organization Address City/[facility]/Zipcode Phone Number [facility] CLIA: [id number], [address] [place] [address] Lipase Serum (03/11/2019 2:53 PM CDT) Pathologist Sig nature LIPASE 22 0 - 220 U/L [facility] Specimen Blood - VENOUS Performing Organization Address City/[facility] Phone Number [facility] CLIA: [id number], [address] [place] [address] Hepatic Function Panel (ALB, T.PRO, BILI T, BU/BC, ALT, AST, ALK PHOS) (03/11/2019 2:53 PM CDT) [facility] TOTAL BILI 0.6 0.1 - 1.1 mg/dL [facility] BILI UNCON 0.5 0.1 - 1.1 mg/dL [facility] BILI CONJ 0.0 0.0 - 0.3 mg/dL [facility] T PROTEIN 7.7 6.3 - 8.2 g/dL [facility] ALBUMIN 4.9 3.5 - 5.0 g/dL [facility] ALK PHOS 61 34 - 122 U/L [facility] ALT(SGPT) 26 9 - 51 U/L [facility] AST(SGOT) 28 13 - 40 U/L [facility] Specimen Blood - VENOUS Performing Organization Address City/State/Zipcode Phone Number [facility] CLIA: [id number], [address] [place] [address] Basic Metabolic Panel (NA, K, CL, CO2, GLUCOSE, BUN, CREATININE, CA) (03/11/2019 2:53 PM CDT) [facility] NA 141 135 - 145 [facility] mmol/L [facility] K 3.6 3.5 - 5.0 [facility] mmol/L [facility] CL 104 98 - 108 mmol/L [facility] CO2 TOTAL 24 23 - 31 mmol/L [facility] AGAP 13 2 - 16 [facility] BUN 19 7 - 23 mg/dL [facility] GLUCOSE 161 (H) 70 - 110 mg/dL [facility] CREATININE 0.51 0.50 - 1.04 [facility] mg/dL [facility] CALCIUM 9.4 8.6 - 10.6 [facility] mg/dL [facility] eGFR Calculation 123.4 mL/min/1.73m2 [facility] ([facility]ATORY Malian) eGFR Calculation 149.6 mL/min/1.73m2 [facility] ([facility] LABORATORY Specimen Blood - VENOUS Narrative Performed At Association of Glomerular Filtration Rate (GFR) [facility] and Staging of Kidney Disease* + + +- + | GFR (mL/min/1.73 m2)| With Kidney Damage|Without Kidney Damage + + +- + |>90| Stage one| Normal + + +- + |60-89|S tage two| Decreased GFR + + +- + |30-59|S tage three| Stage three + + +- + |15-29|S tage four | Stage four + + +- + |<15 (or dialysis)|Stage five | Stage five + + +- + *Each stage assumes the associated GFR level has been in effect for at least three months.Stages 1 to 5, with or without kidney disease, indicate chronic kidney disease . Notes: Determination of stages one and two (with eGFR >59mL/min/1.73 m2) requires estimation of kidney damage for at least three months as defined by structural or functional abnormalities of the kidney, manifested by either: Pathological abnormalities or Markers of kidney damage (including abnormalities in the composition of the blood or urine or abnormalities in imaging tests). Performing Organization Address City/State/Zipcode Phone Number [facility] CLIA: [id number], [address] [place], [place] [address] documented in this encounter Visit Diagnoses Diagnosis Vomiting, intractability of vomiting not specified, presence of nausea not specified, unspecified vomiting type - Primary documented in this encounter Administered Medications Medication Order MAR Action Action Date Dose Rate Site NaCl 0.9% (NS) bolus New Bag 03/11/2019 2:53 PM CDT 1,000 mL 99 9 mL/hr infusion 1,000 mL at 999 mL/hr, 1,000 mL, IV Infusion, ONCE, 1 dose, [facility] 03/11/19 at 1430, JEFFREY ondansetron (ZOFRAN (PF)) injection 4 mg Given 03/11/2019 2:53 PM CDT 4 mg 4 mg, Slow IV Push, ONCE, 1 dose, [facility] 03/11/19 at 1530, JEFFREY documented in this encounter documented as of this encounter"
--- OUTSIDE RECORDS SUMMARY | 2019-11-05 18:58 | XMS REPORT ---
:1960 Author Organization [facility] t Address [address] [place] [address] Dr. Joseph [address] [place] [address] Care Team Providers Name Role Phone Unavailable Unavailable Unavailable Problems This patient has no known problems. Allergies, Adverse Reactions, Alerts This patient has no known allergies or adverse reactions. Medications This patient has no known medications.
--- OUTSIDE RECORDS SUMMARY | 2019-11-05 18:58 | XMS REPORT | Summary of Care ---
:1960 Author Organization [facility] - Health Address [address] [place] [address] Care Team Providers Name Role Phone Melvin Talley MD Unavailable Torres Talley MD Primary Care Provider Encounter Details Date Type Department Care Team Description 07/27/2019 Orders Only [facility] Doctor Unassigned, No [address] [place] [address] [address] [place] [phone] Allergies Active Allergy Reactions Severity Noted Date Comments Aspirin Rash 10/14/2017 Nsaids (Non-Steroidal Hives 10/14/2017 Anti-Inflammatory Drug) Peanut Anaphylaxis 04/11/2018 Prednisone Other - See comments 04/11/2018 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 Sesame Diarrhea 03/11/2019 Sulfa (Sulfonamide Antibiotics) Rash 8 documented as of this encounter (statuses as of 07/27/2019) Medications Medication Sig Dispensed Refills Start Date [...] as of this encounter (statuses as of 07/27/2019) Active Problems Problem Noted Date Primary hypothyroidism 10/14/2017 documented as of this encounter (statuses as of 07/27/2019) Social History Tobacco Use Types Packs/Day Years Used Date Never Smoker Sex Assigned at Date Recorded Not on file Job Start Date Occupation Industry Not on file Not on file Not on file Travel History Travel Start Travel End No recent travel history available. documented as of this encounter Last Filed Vital Signs Not on filedocumented in this encounter Plan of Treatment Health Maintenance Due Date Last Done Comments HEPATITIS C (HCV) SCREEN 1960 DTaP,Tdap,and Td Vaccines (1 - 1978 Tdap) PAP SMEAR 1980 Breast Cancer Screening 1999 (MAMMOGRAM) COLONOSCOPY 2009 Zoster Recombinant Vaccine 2009 (SHINGRIX) (1 of 2) INFLUENZA VACCINE (#1) 2019 PNEUMOCOCCAL 0-64 YEARS COMBINED Aged Out No longer eligible based on SERIES patient's age to complete this topic documented as of this encounter Procedures Procedure Name Priority Date/Time Associated Diagnosis Comme nts CONSENT/REFUSAL FOR Routine 07/27/2019 5:47 PM HOSPICE RN DIAGNOSIS AND TREATMENT documented in this encounter Results Not on filedocumented in this encounter Insurance Payer Benefit Plan / Group Subscriber ID Effective Dates Phone Address Type DILEEP FALK II [id number] 2016-Present H [place]/PPO/POS documented as of this encounter
--- OUTSIDE RECORDS SUMMARY | 2019-11-05 18:59 | XMS REPORT | Summary of Care ---
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 [address] ON LICENSE OF [facility] [address] [place] [address] Reason for Visit Reason Comments CHRONIC BRONCHITIS Auth/Cert Status Reason Specialty Diagnoses / Referred By Referred To Procedures Contact Contact Emergency Medicine [facility] Em ergency Dept [address] [place] [address] [place] [address] Fax: Encounter Details Date Type Department Care Team Description 07/27/2019 Emergency ADC-Emergency Ib[place]unle, Lucíausho Cough (Pr imary Dx); 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, 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 Chronic bronchitis with COPD (chronic ob structive pulmonary disease); [address] [place] [address] [address] [facility] Moderate persistent asthma [place] [address] [address] [place] [address] Allergies Active Allergy Reactions Severity Noted Date Comments Aspirin Rash 10/14/2017 Nsaids (Non-Steroidal Hives 10/14/2017 Anti-Inflammatory Drug) Peanut Anaphylaxis 04/11/2018 Prednisone Other - See comments 04/11/2018 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 acetaminophen-codeine Take 1 tablet by 12 tablet 0 04/11/2018 Active (TYLENOL-CODEINE #3) mouth every 4 300-30 mg tablet (four) hours as needed for Pain (scale 7-10). acetaminophen-codeine Take 1 tablet by 12 tablet 0 04/11/2018 Active (TYLENOL-CODEINE #3) mouth every 4 300-30 mg tablet (four) hours as needed for Pain (scale 7-10). dicyclomine (BENTYL) Take 1 capsule by 20 capsule 0 03/11/2019 Active 10 mg mouth 4 (four) capsuleIndications: times daily. Vomiting, intractability of vomiting not specified, presence of nausea not specified, unspecified vomiting type ondansetron 4 mg Take 1 tablet by 20 tablet 0 03/11/2019 Active disintegrating mouth every 4 tabletIndications: (four) hours as Vomiting, needed for Nausea intractability of and Vomiting vomiting not (N/V). specified, presence of nausea not specified, unspecified vomiting type codeine-guaifenesin Take 10 mL by 120 mL 0 07/27/2019 Active 10-100 mg/5 mL mouth every 6 solutionIndications: (six) hours as Cough, Chronic needed for Cough. bronchitis with COPD (chronic obstructive pulmonary disease) albuterol 2.5 mg /3 mL Inhale 3 mL every 1 Box 0 0 Active (0.083 %) nebulizer 4 (four) hours as solutionIndications: needed for Cough, Chronic Wheezing or bronchitis with COPD Shortness of (chronic obstructive Breath. May also pulmonary disease) nebulize one extra every 6 hours. documented as of this encounter (statuses as [...] Sign Reading Time Taken Comments Blood Pressure 143/74 07/27/2019 7:00 PM GORING CUTTER Pulse 70 07/27/2019 7:36 PM GORING CUTTER Temperature 36.6 C (97.8 F) 07/27/2019 6:05 PM GORING CUTTER Respiratory Rate 18 07/27/2019 7:36 PM GORING CUTTER Oxygen Saturation 98% 07/27/2019 7:24 PM GORING CUTTER Inhaled Oxygen Concentration - - Weight 68 kg (150 lb) 07/27/2019 6:05 PM GORING CUTTER Height 170.2 cm (5' 7") 07/27/2019 6:05 PM GORING CUTTER Body Mass Index 23.49 07/27/2019 6:05 PM GORING CUTTER documented in this encounter Discharge Instructions Mariangel Jacinto FNP - 07/27/2019 You were seen today for Chief Complaint Patient presents with CHRONIC BRONCHITIS Your ER diagnosis was ICD-10-CM ICD-9-CM 1. Cough R05 786.2 2. Chronic bronchitis with COPD (chronic obstructive pulmonary disease) J44.9 491.20 NO LIFE-THREATENING FINDINGS ON TODAY'S EXAM. YOUR PRESCRIPTIONS : Medication List START taking these medications albuterol 2.5 mg /3 mL (0.083 %) nebulizer solution Commonly known as: PROVENTIL Inhale 3 mL every 4 (four) hours as needed for Wheezing or Shortness of Breath. May also nebulize one extra every 6 hours. codeine-guaifenesin 10-100 mg/5 mL solution Commonly known as: ROBITUSSIN AC Take 10 mL by mouth every 6 (six) hours as needed for Cough. ASK your doctor about these medications * [...] (three) times daily as needed for Cough. clopidogreL 75 mg tablet Commonly known as: PLAVIX dicyclomine 10 mg capsule Commonly known as: BENTYL Take 1 capsule by mouth 4 (four) times daily. diltiazem 60 mg tablet Commonly known as: CARDIZEM levothyroxine 125 mcg tablet Commonly known as: SYNTHROID TAKE 1 TABLET BY MOUTH EVERY MORNING losartan 25 mg tablet Commonly known as: COZAAR omeprazole 20 mg capsule Commonly known as: PRILOSEC ondansetron 4 mg disintegrating tablet Commonly known as: ZOFRAN-ODT Take 1 tablet by mouth every 4 (four) hours as needed for Nausea and Vomiting (N/V). SYMBICORT 160-4.5 mcg/actuation inhaler Generic drug: budesonide-formoteroL * This list has 2 medication(s) that are the same as other medications prescribed for you. Read thedirections carefully, and ask your doctor or other care provider to review them with you. Where to Get Your Medications You can get these medications from any pharmacy Bring a paper prescription for each of these medications albuterol 2.5 mg /3 mL (0.083 %) nebulizer solution codeine-guaifenesin 10-100 mg/5 mL solution ER precautions and follow up : 1. [...] es normal, confusion, baja or pierdas conciencia. FOLLOW-UP RECOMMENDATIONS: RECOMMEND FOLLOW-UP WITH A PRIMARY CARE PROVIDER OR SPECIALIST IN 2-5 DAYS, ESPECIALLY IF NO IMPROVEMENT IN SYMPTOMS. MAY FOLLOW-UP WITH A PROVIDER OF YOUR CHOICE, SUCH : 1. A PHYSICIAN OF YOUR CHOICE 2. [facility], . LOCATIONS IN [facility] 3. [facility], [address] [place] [address]; [phone] OR, IF YOU WISH TO FOLLOW-UP WITHIN THE [facility], MAY TRY THESE OPTIONS (CLINIC APPOINTMENTS AVAILABLE ON [id number] BASIS): 1. SCHEDULE AN APPOINTMENT ONLINE AT [facility] 2. OR CALL THE [facility] ACCESS C[facility] AT OR 3. OR CALL YOUR [facility] PHYSICIAN'S OFFICE DIRECTLY IF YOU ARE ALREADY AN ESTABLISHED [facility] PATIENT. documented in this encounter Plan of Treatment Name Type Priority Associated Diagnoses Date/Ti me THROAT CULTURE LAB STAT Cough 07/27/2019 6 :55 PM GORING CUTTER Name Type Priority Associated Diagnoses Order S chedule THROAT CULTURE LAB Routine Cough ONCE for 1 Oc currences starting 07/27/2019 unti l 07/27/2019 Health Maintenance Due Date Last Done Comments [...] encounter Procedures Procedure Name Priority Date/Time Associated Comments Diagnosis CBC WITH DIFFERENTIAL STAT 07/27/2019 6:55 Cough Re sults for this PM GORING CUTTER procedure are i n the results section. ADC,CLC OR LCC ONLY - STAT 07/27/2019 6:55 Cough Re sults for this INFLUENZA A & B PM GORING CUTTER procedure ar e in DIRECT ANTIGEN the results section. RAPID STREP SCREEN STAT 07/27/2019 6:55 Cough Resul ts for this FOR GROUP A PM GORING CUTTER procedure are i n the results section. CBC WITH DIFFERENTIAL Routine 07/27/2019 6:55 Cough Re sults for this PM GORING CUTTER procedure are i n the results section. BASIC METABOLIC PANEL STAT 07/27/2019 6:55 Cough Re sults for this (NA, K, CL, CO2, PM GORING CUTTER procedure a re in GLUCOSE, BUN, the results CREATININE, CA) section. HEPATIC FUNCTION STAT 07/27/2019 6:55 Cough Results for this PANEL (98161) PM GORING CUTTER procedure are in (ALB,T.PRO,BILI the results T,BU/BC,ALT,AST,ALK section. PHOS) XR CHEST 2 VW STAT 07/27/2019 6:28 Cough Results fo r this PM GORING CUTTER procedure are i n the results section. documented in this encounter Results ADC,CLC OR LCC ONLY - INFLUENZA A & B DIRECT ANTIGEN (07/27/2019 6:55 PM GORING CUTTER) Pathologist Sig nature Influenza A Negative Negative [facility] Influenza B Negative Negative [facility] Specimen Swab - NARE, LEFT SIDE Performing Organization Address [facility] Phone Number [facility] CLIA: [id number], [address] [place] [address] RAPID STREP SCREEN FOR GROUP A (07/27/2019 6:55 PM GORING CUTTER) Pathologist Sig nature Streptococcus pyogenes Negative Negative [facility] (group A) antigen [facility] Specimen Swab - THROAT Performing Organization Address [facility] Phone Number [facility] CLIA: [id number], [address] [place] [address] CBC WITH DIFFERENTIAL (07/27/2019 6:55 PM GORING CUTTER) WBC 8.82 4.30 - 11.10 [facility] 10*3/L HOSPITAL LAB[facility]ORY RBC 4.42 3.93 - 5.25 [facility] 10*6/L [facility] HGB 13.9 11.6 - 15.0 [facility] g/dL [facility] HCT 40.1 35.7 - 45.2 % [facility] MCV 90.7 80.6 - 95.5 [facility] MCH 31.4 25.9 - 32.8 [facility] pg [facility] MCHC 34.7 31.6 - 35.1 [facility] g/dL [facility] RDW-SD 40.8 39.0 - 49.9 [facility] RDW-CV 12.5 12.0 - 15.5 % [facility] PLT 270 166 - 358 [facility] 10*3/L [facility] MPV 11.0 9.5 - 12.9 fL [facility] IPF % 5.7Comment: Platelet 1.3 - 7.7 % [facility] count measured by HOSPITAL fluorescence method. LABORATORY NRBC/100 WBC 0.0 0.0 - 10.0 [facility] /100 WBCs [facility] NRBC x10^3 <0.01 10*3/L [facility] GRAN MAT (NEUT) % 60.2 % [facility] IMM GRAN % 1.60 % [facility] LYMPH % 29.4 % [facility] MONO % 6.2 % [facility] EOS % 2.3 % [facility] BASO % 0.3 % [facility] GRAN MAT 5.31 1.88 - 7.09 [facility] x10^3(ANC) 10*3/uL HOSPITAL [facility] IMM GRAN x10^3 0.14 (H) 0.00 - 0.06 [facility] 10*3/uL HOSPITAL [facility] LYMPH x10^3 2.59 1.32 - 3.29 [facility] 10*3/uL H[facility]ITAL [facility] MONO x10^3 0.55 0.33 - 0.92 [facility] 10*3/uL HOSPITAL LAB[facility] EOS x10^3 0.20 0.03 - 0.39 [facility] 10*3/uL [facility]PITAL [facility] BASO x10^3 0.03 0.01 - 0.07 [facility] 10*3/uL [facility] Specimen Blood - VENOUS Performing Organization Address City/State/Zipcode Phone Number [facility] CLIA: [id number], [address] Hepatic Function Panel (ALB, T.PRO, BILI T, BU/BC, ALT, AST, ALK PHOS) (07/27/2019 6:55 PM GORING CUTTER) Pathologist Sig nature TOTAL BILI 0.3 0.1 - 1.1 mg/dL [facility] BILI UNCON 0.1 0.1 - 1.1 mg/dL [facility] BILI CONJ 0.0 0.0 - 0.3 mg/dL [facility] T PROTEIN 8.2 6.3 - 8.2 g/dL [facility] ALBUMIN 5.0 3.5 - 5.0 g/dL [facility] ALK PHOS 121 34 - 122 U/L [facility] ALTv 33 5 - 35 U/L [facility] AST(SGOT) 30 13 - 40 U/L [facility] Specimen Blood - VENOUS Performing Organization Address City/State/Zipcode Phone Number [facility] CLIA: [id number], [address] [place] [address] Basic Metabolic Panel (NA, K, CL, CO2, GLUCOSE, BUN, CREATININE, CA) (07/27/2019 6:55 PM GORING CUTTER) NA 137 135 - 145 [facility] mmol/L [facility] K 3.8 3.5 - 5.0 [facility] mmol/L [facility] CL 100 98 - 108 mmol/L [facility] CO2 TOTAL 24 23 - 31 mmol/L [facility] AGAP 13 2 - 16 [facility] BUN 13 7 - 23 mg/dL [facility] GLUCOSE 245 (H) 70 - 110 mg/dL [facility] CREATININE 0.49 (L) 0.50 - 1.04 [facility] mg/dL [facility] CALCIUM 9.8 8.6 - 10.6 [facility] mg/dL HOSPITAL LABORATORY eGFR Calculation 128.8 mL/min/1.73m2 [facility] ([facility] LABORATORY [place]) eGFR Calculation 156.1 mL/min/1.73m2 [facility] () [facility] Specimen Blood - VENOUS Narrative Performed At Association of Glomerular Filtration Rate (GFR) [facility] and Staging of Kidney Disease* + + +- + | GFR (mL/min/1.73 m2) | With Kidney Damage | Without Kidney Damage + + +- + | >90 | Stage one | Normal + + +- + | 60-89 | Stage two | Decreased GFR + + +- + | 30-59 | Stage three | Stage three + + +- + | 15-29 | Stage four | Stage four + + +- + | <15 (or dialysis) | Stage five | Stage five + + +- + *Each stage assumes the associated GFR level has been in effect for at least three months. Stages 1 to 5, with or without kidney disease, indicate chronic kidney disease. Notes: Determination of stages one and two (with eGFR >59mL/min/1.73 m2) requires estimation of kidney damage for at least three months as defined by structural or functional abnormalities of the kidney, manifested by either: Pathological abnormalities or Markers of kidney damage (including abnormalities in the composition of the blood or urine or abnormalities in imaging tests). Performing Organization Address City/State/Zipcode Phone Number [facility] CLIA: [id number], [address] [id number] [address] [facility] XR CHEST 2 VW (07/27/2019 6:28 PM GORING CUTTER) Specimen Impressions Performed At Impression: PACS/VR/DOSE No acute cardiopulmonary changes. Small sized hiatal hernia. Preliminary Report Dictated by Resident: Kb Vergara MD., have reviewed this study and agree with the above report. Narrative Performed At XR CHEST 2 VW PACS/VR/DOSE History: cough Comparison: None available Findings: The lungs are clear. No focal consolidation is present . No pleural effusion or pneumothorax is identified. The heart is normal in size. The osseous structures ar e unremarkable. Small sized hiatal hernia is present. Procedure Note [facility], Radiant Results Inft User - 2019 6:54 PM GORING CUTTER XR CHEST 2 VW History: cough Comparison: None available Findings: The lungs are clear. No focal consolidat ion is present. No pleural effusion or pneumothorax is identified. The heart is normal in size. The osseous structures are unremarkable. Small sized hiatal hernia is present. IMPRESSION Impression: No acute cardiopulmonary changes. Small sized hiatal hernia. Preliminary Report Dictated by Resident: Kb Vergara MD., have r eviewed this study and agree with the above report. Performing Organization Address City/State/Zipcode Phone Number PACS/VR/DOSE documented in this encounter Visit Diagnoses Diagnosis Cough - Primary Chronic bronchitis with COPD (chronic ob structive pulmonary disease) Obstructive chronic bronchitis without e xacerbation Moderate persistent asthma with exacerba tion Unspecified asthma, with exacerbation documented in this encounter Administered Medications Medication Order MAR Action Action Date Dose Rate Site codeine-guaifenesin (ROBITUSSIN Given 07/27/2019 6:55 PM GORING CUTTER 10 mL AC) 10-100 mg/5 mL solution 10 mL 10 mL, Oral, ONCE, 1 dose, 07/27/19 at 1930, JEFFREY ipratropium-albuterol (DUONEB) 0.5 mg-3 mg(2.5 Given 0 07/27/2019 7:21 PM GORING CUTTER 6 mL mg base)/3 mL nebulizer solution 6 mL 6 mL, Inhalation, ONCE, 1 dose, 07/27/19 at 2015, Routine documented in this encounter documented as of this encounter
[2019-11-05 20:09] LABS: Basophils % 0.4 % (0-1.3); Hematocrit 36.7 % (36.0-45.0); Lymphocytes % 34.5 % (15.3-44.8); RBC Red Blood Cell Count 4.03 M/uL (3.86-4.86)
[2019-11-05 20:20] LABS: Protime INR 0.96
[2019-11-05 20:32] LABS: ALT/SGPT 23 U/L (12-78); AST/SGOT 12 U/L (15-37); Alkaline Phosphatase 88 U/L (45-117); BUN Blood Urea Nitrogen 8 mg/dL (7-18); Bicarbonate 24 mmol/L (21-32); Bilirubin Direct < 0.1 mg/dL (0-0.2); Bilirubin Total 0.2 mg/dL (0.2-1.0); Glucose Level 247 mg/dL (74-106); Magnesium 1.9 mg/dL (1.8-2.4); NT PRO-BNP 18 pg/mL (<125); Potassium 3.3 mmol/L (3.5-5.1); Protein, Total 7.7 g/dL (6.4-8.2); Sodium Level 139 mmol/L (136-145); Troponin (Emerg Dept Use Only) < 0.02 ng/mL (0.0-0.045)
--- NOTE | 2019-11-05 20:38 | RAD REPORT ---
EXAM DESCRIPTION: RAD - Chest Single View - 11/05/2019 8:07 pm CLINICAL HISTORY: CHEST PAIN Chest pain. COMPARISON: Chest Pa And Lat (2 Views) dated 12/16/2018; Chest Single View dated 09/24/2018; Chest Sin gle View dated 07/24/2017; Chest Single View dated 11/09/2016 FINDINGS: Portable technique limits examination quality. The lungs are grossly clear. The heart is normal in size. No displaced fractures. IMPRESSION: No acute intrathoracic process suspected.
[2019-11-05] MEDS ORDERED: POTASSIUM CL SA 10 MEQ TAB PO ONE (21:00)
--- NOTE | 2019-11-05 21:08 | ER ---
Nurse's Notes [facility] Name: Dolores Pérez Age: 59 yrs Sex: Female : 1960 Arrival Date: 11/05/2019 Time: 18:57 Bed 18 Private MD: Melvin Thao R Diagnosis: Chest pain. Bronchitis Presentation: 11/04 18:59 Risk Assessment: Do you want to hurt yourself or someone else? Patient reports no sv desire to harm self or others. 18:59 Method Of Arrival: Ambulatory sv 19:00 Chief complaint: Patient states: dizziness, cough, hurts when she breathes in started sv last night, bilateral hand and feet cramping. Coronavirus screen: Surgical mask placed on patient. Patient moved to private room, placed in contact and droplet isolation with eye protection until further assessment. Patient reports a cough. Patient reports shortness of breath or difficulty breathing. Patient denies measured and/or subjective temperature greater than 100.4F prior to today's visit. Patient denies travel on a cruise ship or to a country the [facility] currently lists as an affected area. Patient denies contact with known and/or suspected case of COVID-19. Ebola Screen: No symptoms or risks identified at this time. Onset of symptoms was November 04, 2019. 19:00 Acuity: AARON 3 sv 19:00 Initial Sepsis Screen: Does the patient meet any 2 criteria? No. Patient's initial sv sepsis screen is negative. Does the patient have a suspected source of infection? No. Patient's initial sepsis screen is negative. Triage Assessment: 19:00 General: Appears in no apparent distress. Behavior is calm, cooperative, appropriate sv for age. Pain:. Neuro: Level of Consciousness is awake, alert, obeys commands, Gait is steady. Neuro: Reports dizziness. Respiratory: Respiratory effort is even, unlabored. Historical: - Allergies: 18:59 Aspirin; sv 18:59 NSAIDS; sv 18:59 peanuts; sv 18:59 Sulfa (Sulfonamide Antibiotics); sv - PMHx: 18:59 Asthma; High Cholesterol; Hypertension; Hypothyroidism; sv - PSHx: 18:59 Rhinoplasty; Vocal Nodules removed; sv - Immunization history:: Adult Immunizations up to date. - Social history:: Smoking status: Patient denies any tobacco usage or history of. Screenin:07 Abuse screen: Denies threats or abuse. Denies injuries from another. Nutritional rv screening: No deficits noted. Tuberculosis screening: No symptoms or risk factors identified. Fall Risk None identified. Assessment: 20:07 General: Appears uncomfortable, Behavior is calm, cooperative. Pain: Complains of pain rv in chest. Neuro: Level of Consciousness is awake, alert, obeys commands, Oriented to person, place, time, situation. Cardiovascular: Patient's skin is warm and dry. Rhythm is sinus rhythm. Respiratory: Reports cough that is productive, Airway is patent Respiratory effort is even, unlabored, Breath sounds are clear bilaterally. Vital Signs: 19:00 BP 154 / 77; Pulse 74; Resp 20; Temp 97.9(O); Pulse Ox 97% ; Weight 65.77 kg; Height 5 sv ft. 7 in. (170.18 cm); 20:11 BP 148 / 67; Pulse 70; Resp 17; Pulse Ox 99% on R/A; rv 21:18 BP 130 / 72; Pulse 70; Resp 17; Temp 98; Pulse Ox 99% on R/A; rv 19:00 Body Mass Index 22.71 (65.77 kg, 170.18 cm) sv ED Course: 18:57 Patient arrived in ED. ag5 18:57 Melvin Thao MD is Private Physician. ag5 18:59 Arm band placed on. sv 19:03 Triage completed. sv 19:13 Jaquan Campa MD is Attending Physician. pkl 19:30 Nani Plunkett, JADEN is Primary Nurse. ca1 19:45 Inserted saline lock: 20 gauge in right antecubital area, using aseptic technique. rv Blood collected. 19:45 Initial lab(s) drawn, by me, sent to lab. EKG done, by ED staff, reviewed by Jaquan Campa MD rv Flu and/or RSV swab sent to lab. Strep swab sent to lab. covid test. 20:07 Placed in gown. Bed in low position. Call light in reach. Side rails up X 1. Cardiac rv monitor on. Pulse ox on. NIBP on. 20:08 XRAY Chest (1 view) In Process Unspecified. EDMS 21:07 Melvin Thao MD is Referral Physician. pkl 21:18 No provider procedures requiring assistance completed. IV discontinued, intact, rv bleeding controlled, No redness/swelling at site. Pressure dressing applied. 11/05 11:34 Health Dept notified/ COVID swab sent to lab/ PUI # [id number]/ lab notified. eb Administered Medications: 11/04 20:55 Drug: Potassium Chloride 20 mEq Route: PO; fc 21:15 Follow up: Response: No adverse reaction rv Outcome: 21:08 Discharge ordered by . tiana 21:18 Discharged to home ambulatory. rv 21:18 Condition: good 21:18 Discharge instructions given to patient, Instructed on discharge instructions, follow up and referral plans. Demonstrated understanding of instructions, follow-up care. 21:19 Patient left the ED. rv Addendum: 11/07/2019 17:13 Addendum: Other COVID-19 not detected results called to patient. a a5 Signatures: Dispatcher [employer] Erica Caal RN RN sv Lam, Pin, MD MD pkl Chretien, Felicia, RN RN fc Calderon, Audri, RN RN aa5 Trish March Ronaldo RN JADEN Nani Plunkett RN JADEN [facility] Alejandra Perry ag5 Corrections: (The following items were deleted from the chart) 11/04 19:06 19:00 Chief complaint: Patient states: dizziness, hurts when she breathes in started sv last night, bilateral hand and feet cramping. sv 19:06 19:00 Coronavirus screen: Proceed with normal triage. Patient reports a cough. Patient sv denies shortness of breath or difficulty breathing. Patient denies measured and/or subjective temperature greater than 100.4F prior to today's visit. Patient denies travel on a cruise ship or to a country the [facility] currently lists as an affected area. Patient denies contact with known and/or suspected case of COVID-19. sv 19:06 19:00 65.77 kg; Height 5 ft. 7 in.; BMI: 22.7; sv sv 19:06 19:00 Pulse 74bpm; Resp 20bpm; Pulse Ox 97%; Temp 97.9F Oral; 65.77 kg; Height 5 ft. 7 sv in.; BMI: 22.7; sv
--- NOTE | 2019-11-05 21:09 | EDPHYS ---
Physician Documentation [facility] Name: Dolores Pérez Age: 59 yrs Sex: Female : 1960 Arrival Date: 11/05/2019 Time: 18:57 Bed 18 Private MD: Melvin Thao R ED Physician Jaquan Campa HPI: 11/04 19:40 This 59 yrs old Female presents to ER via Ambulatory with complaints of pkl Dizziness, Leg Pain, Hand Pain. 19:40 The patient or guardian reports chest pain that is located primarily in the left side pkl chest. Onset: last night. The pain does not radiate. Associated signs and symptoms: Pertinent positives: cough, cramping hands and feet. The chest pain is described as dull. Historical: - Allergies: 18:59 Aspirin; sv 18:59 NSAIDS; sv 18:59 peanuts; sv 18:59 Sulfa (Sulfonamide Antibiotics); sv - PMHx: 18:59 Asthma; High Cholesterol; Hypertension; Hypothyroidism; sv - PSHx: 18:59 Rhinoplasty; Vocal Nodules removed; sv - Immunization history:: Adult Immunizations up to date. - Social history:: Smoking status: Patient denies any tobacco usage or history of. ROS: 19:40 Eyes: Negative for injury, pain, redness, and discharge, ENT: Negative for injury, pkl pain, and discharge, Neck: Negative for injury, pain, and swelling. 19:40 Cardiovascular: Positive for chest pain, with cough. 19:40 Respiratory: Positive for cough, with clear sputum. 19:40 Abdomen/GI: Negative for abdominal pain, nausea, vomiting, and diarrhea. 19:40 Back: Negative for acute changes. 19:40 : Negative for urinary symptoms. 19:40 MS/extremity: Negative for acute changes. 19:40 Skin: Negative for rash. 19:40 Neuro: Negative for altered mental status. Exam: 19:40 Head/Face: Normocephalic, atraumatic. Eyes: Pupils equal round and reactive to light, pkl extra-ocular motions intact. Lids and lashes normal. Conjunctiva and sclera are non-icteric and not injected. Cornea within normal limits. Periorbital areas with no swelling, redness, or edema. ENT: Nares patent. No nasal discharge, no septal abnormalities noted. Tympanic membranes are normal and external auditory canals are clear. Oropharynx with no redness, swelling, or masses, exudates, or evidence of obstruction, uvula midline. Mucous membranes moist. Neck: Trachea midline, no thyromegaly or masses palpated, and no cervical lymphadenopathy. Supple, full range of motion without nuchal rigidity, or vertebral point tenderness. No Meningismus. Chest/axilla: Normal chest wall appearance and motion. Nontender with no deformity. No lesions are appreciated. Cardiovascular: Regular rate and rhythm with a normal S1 and S2. No gallops, murmurs, or rubs. Normal PMI, no JVD. No pulse deficits. Respiratory: Lungs have equal breath sounds bilaterally, clear to auscultation and percussion. No rales, rhonchi or wheezes noted. No increased work of breathing, no retractions or nasal flaring. Abdomen/GI: Soft, non-tender, with normal bowel sounds. No distension or tympany. No guarding or rebound. No evidence of tenderness throughout. Back: No spinal tenderness. No costovertebral tenderness. Full range of motion. Skin: Warm, dry with normal turgor. Normal color with no rashes, no lesions, and no evidence of cellulitis. MS/ Extremity: Pulses equal, no cyanosis. Neurovascular intact. Full, normal range of motion. Neuro: Awake and alert, GCS 15, oriented to person, place, time, and situation. Cranial nerves II-XII grossly intact. Motor strength 5/5 in all extremities. Sensory grossly intact. Cerebellar exam normal. Normal gait. Vital Signs: 19:00 BP 154 / 77; Pulse 74; Resp 20; Temp 97.9(O); Pulse Ox 97% ; Weight 65.77 kg; Height 5 sv ft. 7 in. (170.18 cm); 20:11 BP 148 / 67; Pulse 70; Resp 17; Pulse Ox 99% on R/A; rv 21:18 BP 130 / 72; Pulse 70; Resp 17; Temp 98; Pulse Ox 99% on R/A; rv 19:00 Body Mass Index 22.71 (65.77 kg, 170.18 cm) sv MDM: 19:13 Patient medically screened. pkl 21:01 Data reviewed: vital signs, nurses notes, lab test result(s), EKG, radiologic studies, pkl plain films. ED course: Discussed lab. EKG and X' rays results with patient. Advised to stay home until Covid 19 result is available. Advised to follow up with PCP in 2 to 3 days. Patient understood instructions. 11/04 19:23 Order name: Basic Metabolic Panel; Complete Time: 20:39 pkl 11/04 19:23 Order name: CBC with Diff; Complete Time: 20:24 pkl 11/04 19:23 Order name: LFT's; Complete Time: 20:39 pkl 11/04 19:23 Order name: Magnesium; Complete Time: 20:39 pkl 11/04 19:23 Order name: NT PRO-BNP; Complete Time: 20:39 pkl 11/04 19:23 Order name: PT-INR; Complete Time: 20:24 pkl 11/04 19:23 Order name: Troponin (emerg Dept Use Only); Complete Time: 20:39 pkl 11/04 19:23 Order name: XRAY Chest (1 view); Complete Time: 20:59 pkl 11/04 19:23 Order name: D-Dimer; Complete Time: 20:24 pkl 11/04 19:24 Order name: COVID-19 pkl 11/04 19:24 Order name: Flu; Complete Time: 20:33 pkl 11/04 19:24 Order name: Strep; Complete Time: 20:24 pkl 11/04 20:25 Order name: Throat Culture EDVA 11/04 19:23 Order name: EKG; Complete Time: 19:24 pkl 11/04 19:23 Order name: Cardiac monitoring; Complete Time: 20:06 pkl 11/04 19:23 Order name: EKG - Nurse/Tech; Complete Time: 20:06 pkl 11/04 19:23 Order name: IV Saline Lock; Complete Time: 20:06 pkl 11/04 19:23 Order name: Labs collected and sent; Complete Time: 20:07 pkl 11/04 19:23 Order name: O2 Per Protocol; Complete Time: 20:07 pkl 11/04 19:23 Order name: O2 Sat Monitoring; Complete Time: 20:07 pkl 11/04 19:24 Order name: Document PUI#; Complete Time: 20:06 pkl 11/04 19:24 Order name: Droplet/Contact Precautions; Complete Time: 20:06 pkl Administered Medications: 20:55 Drug: Potassium Chloride 20 mEq Route: PO; 21:15 Follow up: Response: No adverse reaction rv Disposition: 11/05/19 21:08 Discharged to Home. Impression: Chest pain. Bronchitis. - Condition is Stable. - Prescriptions for Guaifenesin AC 10- 100 mg/5 mL Oral Liquid - take 10 milliliters by ORAL route every 8 hours As needed; 120 milliliter. - Medication Reconciliation Form, Thank You Letter, Antibiotic Education, Prescription Opioid Use, Work release form form. - Follow up: Melvin Thao MD; When: 2 - 3 days; Reason: Re-evaluation by your physician. - Problem is new. - Symptoms have improved. Signatures: Dispatcher [employer] Erica Caal, RN RN Jaquan Espinoza MD MD pkl Chretien, Felicia, RN RN Martínez Rod RN RN rv Corrections: (The following items were deleted from the chart) 21:19 21:08 11/05/2019 21:08 Discharged to Home. Impression: Chest pain. Bronchitis. rv Condition is Stable. Forms are Medication Reconciliation Form, Thank You Letter, Antibiotic Education, Prescription Opioid Use. Follow up: Melvin Thao; When: 2 - 3 days; Reason: Re-evaluation by your physician. Problem is new. Symptoms have improved. pkl
[2019-11-05 23:01] VITALS: O2SAT 99
[2019-11-05 23:02] VITALS: BP 130/72; TEMP 98
--- NOTE | 2019-11-07 13:11 | EKG ---
Test Date: 2019-11-05 Test Time: 19:58:26 Cook Mess: RV MEASUREMENT RESULTS: Intervals: Rate: 66 WI: 166 QRSD: 94 QT: 430 QTc: 450 [place]: P: 55 WI: 166 QRS: 13 T: 35 INTERPRETIVE STATEMENTS: Normal sinus rhythm Normal ECG Compared to ECG 09/25/2018 08:24:52 No significant changes Electronically Signed On 11-07-19 13:11:06 CDT by George Ma
== END 2019-11-05 21:19 | disposition home or self-care (01) ==
LOC: ER 18:55
DX: J40 Bronchitis, not specified as acute or chronic (principal); Z20.828 Contact with and (suspected) exposure to other viral communicable diseases; I10 Essential (primary) hypertension; Z88.2 Allergy status to sulfonamides; Z88.6 Allergy status to analgesic agent; Z91.010 Allergy to peanuts
CPT/HCPCS: 36415; 71045; 80048; 80076; 83735; 83880; 84484; 85025; 85379; 85610; 87070; 87081; 87804; 93005; 99284

== ENCOUNTER 2019-11-18 12:56 | Day surgery (SDC) | payer OTHER ==
--- OUTSIDE RECORDS SUMMARY | 2019-11-18 13:00 | XMS REPORT ---
:1960 Author Organization [facility] t Address [address] [place] [address] Care Team Providers Name Role Phone DennispatoAda Nation Attending Clinician Doctor Unassigned, Name Attending Clinician Unavailable Nikolas BARON Attending Clinician Problems This patient has no known problems. Allergies, Adverse Reactions, Alerts This patient has no known allergies or adverse reactions. Medications This patient has no known medications. Procedures This patient has no known procedures. Encounters Start End Encounter Admission Attending Care Care Encounter Source Date/Time Date/Time Type Type Clinicians Facility Department ID 2019-07-27 2019-07-27 Emergency COLLIN Ortega [id number] 18:07:12 20:13:00 Mariangel Grace [id number] [place] [id number] [place] [id number] 2019-07-27 2019-07-27 Orders Doctor LING [id number] 00:00:00 00:00:00 Only Unassigned, KIRK [id number] [facility] [phone] [id number] 2019-03-11 2019-03-11 Emergency STALIN Connor [id number] 14:05:54 16:45:00 Cristobal Grace [id number] [place] [id number] [place] [address] [id number] Results This patient has no known results.
[2019-11-18] MEDS ORDERED: NA CHLORIDE 0.9% 500 ML ONE (16:53)
[2019-11-18] MEDS ORDERED: MIDAZOLAM HCL 2 MG/2 ML INJ ONE (17:36)
[2019-11-18] MEDS ORDERED: LIDOCAINE 1% 20 ML MDV ONE (17:36)
[2019-11-18] MEDS ORDERED: ATROPINE SULF 1 MG/10 ML SYR IV ONE (17:36)
[2019-11-18] MEDS ORDERED: FENTANYL CITR 100 MCG/2 ML ONE (17:36)
[2019-11-18] MEDS ORDERED: NICARDIPINE HCL 25 MG/10 ML IV ONE (17:37)
[2019-11-18] MEDS ORDERED: HEPARIN 5000 UNIT/ML 1 ML VIAL ONE (17:37)
[2019-11-18] MEDS ORDERED: NITROGLYCERIN 100 MCG/ML SYR (for cath lab use only) IV ONE (17:37)
[2019-11-18 20:43] VITALS: TEMP 97.6
[2019-11-18 20:50] VITALS: O2SAT 96
[2019-11-18 21:08] VITALS: BP 127/71
--- NOTE | 2019-11-18 23:59 | OP ---
Date of Procedure: 11/18/2019 Surgeon: PATRICIA MACARIO Infrastructure Analyst: Dr. Patricia Macario. Name Of The Procedures: 1.Selective coronary angiogram. 2.Left heart catheterization. Indications: Unstable angina. Credit Assessment Analyst: George Ma M.D. Indications: Access right radial artery 6-Welsh closed with TR band. Description Of Procedure: Patient was brought to the cardiac catheterization laboratory, prepped and draped in usual sterile fashion. Used fentanyl and Versed to achieve adequate moderate sedation. T hen, we accessed the right radial artery using the pediatric micropuncture kit and a 6-Welsh slender sheath was placed and we took a 6-Welsh [place] catheter into the aortic root over a J-wire, engaged the left main coronary artery and standard views were obtained, then again engaged the right coronary artery and standard views were obtained, then we took the catheter out and the sheath out and closed the radial artery with TR band with good hemostasis. Findings: Normal coronary arteries. No significant coronary artery disease. Recommendation: Cardiac risk factor modification and evaluate for other sources of chest pain. SR/MODL Voice ID: [id number] Report ID: [id number]
== END 2019-11-18 21:10 | disposition home or self-care (01) ==
LOC: CCL 12:56
DX: I20.0 Unstable angina (principal); I10 Essential (primary) hypertension; E78.2 Mixed hyperlipidemia; E11.9 Type 2 diabetes mellitus without complications; E03.9 Hypothyroidism, unspecified; K21.9 Gastro-esophageal reflux disease without esophagitis; J45.909 Unspecified asthma, uncomplicated; Z88.6 Allergy status to analgesic agent; Z91.010 Allergy to peanuts; Z88.2 Allergy status to sulfonamides; Z88.8 Allergy status to other drugs, medicaments and biological substances; Z91.018 Allergy to other foods; Z82.49 Family history of ischemic heart disease and other diseases of the circulatory system
CPT/HCPCS: 36415; 84132; 85730; 93458; C1893; J1644; J2250; J3010; J7040

== ENCOUNTER 2020-03-30 18:08 | Emergency (ER) | payer OTHER ==
--- OUTSIDE RECORDS SUMMARY | 2020-03-30 18:10 | XMS REPORT | Continuity of Care Document ---
:1960 Author Organization [facility] t Address [address] [place] [address] Care Team Providers Name Role Phone DennisgildaAda Lynch Attending Clinician Doctor Unassigned, Name Attending Clinician [...] Clinicians Facility Department ID 2019-07-27 2019-07-27 Emergency Shannon [facility] [id number] 18:07:12 20:13:00 Mariangel Grace [id number] [place] [id number] [place] [id number] 2019-07-27 2019-07-27 Orders Doctor LING [id number] 00:00:00 00:00:00 Only Unassigned, KIRK [id number] [place] [facility] [id number] 2019-03-11 2019-03-11 Emergency Nikolas [facility] [id number] 14:05:54 16:45:00 Cristobal Grace [id number] [place] [id number] [place] [address] [id number] Results This patient has no known results.
[2020-03-30 20:15] LABS: Absolute Lymphocytes (CBC) 2.3 K/uL (0.7-4.9); Basophils % 0.3 % (0-1.3); Hematocrit 33.3 % (36.0-45.0); Lymphocytes % 37.2 % (15.3-44.8); MPV 9.5 fL (7.6-11.3); RBC Red Blood Cell Count 3.71 M/uL (3.86-4.86)
[2020-03-30 20:28] LABS: ALT/SGPT 22 U/L (12-78); AST/SGOT 14 U/L (15-37); Albumin 4.2 g/dL (3.4-5.0); Alkaline Phosphatase 64 U/L (45-117); BUN Blood Urea Nitrogen 9 mg/dL (7-18); Bicarbonate 26 mmol/L (21-32); Bilirubin Direct 0.1 mg/dL (0-0.2); Bilirubin Total 0.3 mg/dL (0.2-1.0); Glucose Level 126 mg/dL (74-106); NT PRO-BNP 20 pg/mL (<125); Potassium 3.3 mmol/L (3.5-5.1); Protein, Total 7.6 g/dL (6.4-8.2); Sodium Level 134 mmol/L (136-145); Troponin (Emerg Dept Use Only) < 0.02 ng/mL (0.0-0.045)
--- NOTE | 2020-03-30 20:48 | RAD REPORT ---
EXAM DESCRIPTION: [place] Single View03/30/2020 8:17 pm CLINICAL HISTORY: Chest pain COMPARISON: November 2019 FINDINGS: The lungs are hyperaerated. The lungs appear clear of acute infiltrate. The heart is norm al size IMPRESSION: No acute abnormalities displayed
--- NOTE | 2020-03-30 20:53 | RAD REPORT ---
EXAM DESCRIPTION: RAD - Hand Right 3 View - 03/30/2020 8:46 pm CLINICAL HISTORY: Right hand pain FINDINGS: No fracture or dislocation is seen. Joint spaces are well-maintained. Bones appear somewhat osteoporotic
[2020-03-30 21:23] LABS: Urine Blood NEGATIVE (NEG); Urine Glucose NEGATIVE (NEG); Urine Protein NEGATIVE (NEG); Urine pH 6.5 (5.0-7.0)
[2020-03-30] MEDS ORDERED: METHYLPREDNISOLONE 125 MG INJ ONE (22:03)
[2020-03-30] MEDS ORDERED: IPRATROPIUM BROM 0.5MG/2.5ML ONE (22:03)
[2020-03-30] MEDS ORDERED: predniSONE 20 MG TAB ONE (22:03)
[2020-03-30] MEDS ORDERED: ASPIRIN EC 81 MG TAB PO ONE (22:03)
[2020-03-30] MEDS ORDERED: AZITHROMYCIN 250 MG TAB ONE (22:03)
[2020-03-30] MEDS ORDERED: CEFTRIAXONE/SWI 1gm 1 GM/10 ML SYR ONE (22:04)
[2020-03-30] MEDS ORDERED: LEVALBUTEROL 1.25 MG/3 ML NEB ONE (22:04)
--- NOTE | 2020-03-30 22:07 | ER ---
Nurse's Notes [facility] Name: Dolores Pérez Age: 59 yrs Sex: Female : 1960 Arrival Date: 03/30/2020 Time: 18:10 Bed 20 Private MD: Melvin Thao R Diagnosis: Chronic obstructive pulmonary disease with (acute) exacerbation;Cough;Chest pain, unspecified;Hypokalemia Presentation: 03/30 18:20 Chief complaint: Patient states: i have chest pressure radiating across my back on and mg2 off since yesterday. i also cough and my right little finger hurts. Coronavirus screen: Client denies travel out of the [place] in the last 14 days. Ebola Screen: No symptoms or risks identified at this time. Initial Sepsis Screen: Does the patient meet any 2 criteria? No. Patient's initial sepsis screen is negative. Does the patient have a suspected source of infection? No. Patient's initial sepsis screen is negative. Risk Assessment: Do you want to hurt yourself or someone else? Patient reports no desire to harm self or others. Onset of symptoms was March 30, 2020. 18:20 Method Of Arrival: Ambulatory mg2 18:20 Acuity: AAORN 3 mg2 Triage Assessment: 23:03 General: Behavior is calm, cooperative, appropriate for age. General: Appears in no ll2 apparent distress. Pain: Denies pain. Musculoskeletal: Circulation, motion, and sensation intact. Range of motion: intact in all extremities. Injury Description: pt with unknown injury located right palm. Historical: - Allergies: 18:27 NSAIDS; mg2 18:27 peanuts; mg2 18:27 Sulfa (Sulfonamide Antibiotics); mg2 - Home Meds: 18:27 Hyzaar Oral [Active]; levothyroxine 125 mcg tab [Active]; mg2 - PMHx: 18:27 Asthma; High Cholesterol; Hypertension; Hypothyroidism; COPD; mg2 - PSHx: 18:27 asthma meds; nasal sx; mg2 - Immunization history:: Flu vaccine is up to date. - Social history:: Smoking status: Patient denies any tobacco usage or history of. Patient uses alcohol, but reports only rare drinking. Patient/guardian denies using street drugs, IV drugs. - Family history:: not pertinent. Screenin:30 Abuse screen: Denies threats or abuse. Nutritional screening: No deficits noted. ll2 Tuberculosis screening: No symptoms or risk factors identified. Fall Risk IV access (20 points). Ambulatory Aid- None/Bed Rest/Nurse Assist (0 pts). Gait- Normal/Bed Rest/Wheelchair (0 pts) Mental Status- Oriented to own ability (0 pts). Total Ta Fall Scale indicates No Risk (0-24 pts). Assessment: 18:36 General: Appears in no apparent distress. comfortable. mg2 20:30 Reassessment: No changes from previously documented assessment. Patient and/or family ll2 updated on plan of care and expected duration. Pain level reassessed. Patient is alert, oriented x 3, equal unlabored respirations, skin warm/dry/pink. Vital Signs: 18:20 BP 137 / 78; Pulse 71; Resp 18; Temp 98.1; Pulse Ox 98% on R/A; Weight 66.68 kg; Height mg2 5 ft. 7 in. (170.18 cm); Pain 5/10; 19:49 BP 127 / 67; Pulse 64; Resp 16; Pulse Ox 97% ; ll2 20:29 BP 139 / 61; Pulse 63; Resp 16; Pulse Ox 97% ; ll2 22:10 BP 147 / 125; Pulse 68; Resp 14; Pulse Ox 100% ; ll2 18:20 Body Mass Index 23.02 (66.68 kg, 170.18 cm) mg2 ED Course: 18:10 Patient arrived in ED. ag5 18:10 Melvin Thao MD is Private Physician. ag5 18:24 Triage completed. mg2 18:24 Arm band placed on. mg2 18:35 EKG done, by ED staff, reviewed by Dorian Etienne MD. mg2 19:24 Feng Tian MD is Attending Physician. trent 19:48 Ingris Jarrell, JADEN is Primary Nurse. ll2 19:56 Inserted saline lock: 20 gauge in left antecubital area, using aseptic technique. Blood jd3 collected. 20:17 XRAY Chest (1 view) In Process Unspecified. EDMS 20:46 XRAY Hand RIGHT 3 View In Process Unspecified. EDMS 22:06 Melvin Thao MD is Referral Physician. trent 22:06 Nakul Orourke MD is Referral Physician. trent 23:02 Patient has correct armband on for positive identification. Bed in low position. Call ll2 light in reach. Side rails up X 1. 23:05 No provider procedures requiring assistance completed. IV discontinued, intact, ll2 bleeding controlled, No redness/swelling at site. Pressure dressing applied. Administered Medications: 22:15 Drug: Xopenex 2.5 mg Route: Inhalation; mg2 22:15 Drug: AtroVENT Aerosol 0.5 mg Route: Inhalation; mg2 22:15 Drug: Aspirin 81 mg Route: PO; mg2 23:01 Follow up: Response: No adverse reaction ll2 22:15 Drug: predniSONE 20 mg Route: PO; mg2 23:02 Follow up: Response: No adverse reaction ll2 22:16 Drug: SOLU-Medrol 125 mg Route: IVP; Site: left antecubital; mg2 23:01 Follow up: Response: No adverse reaction ll2 22:16 Drug: Rocephin 1 grams Route: IV; Rate: bolus; Site: left antecubital; mg2 23:01 Follow up: IV Status: Completed infusion ll2 23:01 Follow up: Response: No adverse reaction ll2 22:16 Drug: Zithromax 500 mg Route: PO; mg2 23:01 Follow up: Response: No adverse reaction ll2 23:00 Drug: Potassium Effervescent Tablet 25 mEq Route: PO; ll2 23:00 Follow up: Response: No adverse reaction ll2 Outcome: 22:06 Discharge ordered by . trent 23:05 Discharged to home ambulatory. ll2 23:05 Condition: stable 23:05 Discharge instructions given to patient, Instructed on discharge instructions, follow up and referral plans. medication usage, Demonstrated understanding of instructions, follow-up care, medications, Prescriptions given X 4. 23:06 Patient left the ED. ll2 Signatures: Dispatcher [employer] EDOK Feng Tian MD MD cha Davies, Jonathon, RN RN Gagan Solorzano RN RN mg2 Alejandra Perry 5 Ingris Jarrell RN RN ll2
--- NOTE | 2020-03-30 22:07 | EDPHYS ---
Physician Documentation [facility] Name: Dolores Pérez Age: 59 yrs Sex: Female : 1960 Arrival Date: 03/30/2020 Time: 18:10 Bed 20 Private MD: Melvin Thao R ED Physician Feng Tian HPI: 03/30 21:14 This 59 yrs old Female presents to ER via Ambulatory with complaints of trent Finger Injury, Chest Congestion. 21:14 The patient or guardian reports decreased range of motion, pain. The complaints affect trent the DIP of right little finger, PIP of right little finger and MCP of right little finger. Context: The problem was sustained at an unknown location. The patient has shortness of breath with light activity. Onset: The symptoms/episode began/occurred 1 day(s) ago. Duration: The symptoms are continuous, and are unchanged since they started. The patient's shortness of breath is aggravated by coughing, walking. The patient or guardian reports chest pain that is located primarily in the anterior chest wall, bilaterally. The patient or guardian reports airway noise, cough, described as mild. Historical: - Allergies: 18:27 NSAIDS; mg2 18:27 peanuts; mg2 18:27 Sulfa (Sulfonamide Antibiotics); mg2 - Home Meds: 18:27 Hyzaar Oral [Active]; levothyroxine 125 mcg tab [Active]; mg2 - PMHx: 18:27 Asthma; High Cholesterol; Hypertension; Hypothyroidism; COPD; mg2 - PSHx: 18:27 asthma meds; nasal sx; mg2 - Immunization history:: Flu vaccine is up to date. - Social history:: Smoking status: Patient denies any tobacco usage or history of. Patient uses alcohol, but reports only rare drinking. Patient/guardian denies using street drugs, IV drugs. - Family history:: not pertinent. ROS: 21:14 Constitutional: Negative for fever, chills, and weight loss, Eyes: Negative for injury, trent pain, redness, and discharge, ENT: Negative for injury, pain, and discharge, Neck: Negative for injury, pain, and swelling, Cardiovascular: Negative for chest pain, palpitations, and edema, Abdomen/GI: Negative for abdominal pain, nausea, vomiting, diarrhea, and constipation, Back: Negative for injury and pain, : Negative for injury, bleeding, discharge, and swelling, MS/Extremity: Negative for injury and deformity, Skin: Negative for injury, rash, and discoloration, Neuro: Negative for headache, weakness, numbness, tingling, and seizure, Psych: Negative for depression, anxiety, suicide ideation, homicidal ideation, and hallucinations, Allergy/Immunology: Negative for hives, rash, and allergies, Endocrine: Negative for neck swelling, polydipsia, polyuria, polyphagia, and marked weight changes, Hematologic/Lymphatic: Negative for swollen nodes, abnormal bleeding, and unusual bruising. 21:14 Neck: Negative for mass, pain with movement, pain at rest, rash. 21:14 Respiratory: Positive for cough, wheezing, expiratory. Exam: 21:16 Constitutional: This is a well developed, well nourished patient who is awake, alert, trent and in no acute distress. Head/Face: Normocephalic, atraumatic. Eyes: Pupils equal round and reactive to light, extra-ocular motions intact. Lids and lashes normal. Conjunctiva and sclera are non-icteric and not injected. Cornea within normal limits. Periorbital areas with no swelling, redness, or edema. ENT: Nares patent. No nasal discharge, no septal abnormalities noted. Tympanic membranes are normal and external auditory canals are clear. Oropharynx with no redness, swelling, or masses, exudates, or evidence of obstruction, uvula midline. Mucous membranes moist. Neck: Trachea midline, no thyromegaly or masses palpated, and no cervical lymphadenopathy. Supple, full range of motion without nuchal rigidity, or vertebral point tenderness. No Meningismus. Chest/axilla: Normal chest wall appearance and motion. Nontender with no deformity. No lesions are appreciated. Cardiovascular: Regular rate and rhythm with a normal S1 and S2. No gallops, murmurs, or rubs. Normal PMI, no JVD. No pulse deficits. Abdomen/GI: Soft, non-tender, with normal bowel sounds. No distension or tympany. No guarding or rebound. No evidence of tenderness throughout. Back: No spinal tenderness. No costovertebral tenderness. Full range of motion. Female : Normal external genitalia. Skin: Warm, dry with normal turgor. Normal color with no rashes, no lesions, and no evidence of cellulitis. MS/ Extremity: Pulses equal, no cyanosis. Neurovascular intact. Full, normal range of motion. Neuro: Awake and alert, GCS 15, oriented to person, place, time, and situation. Cranial nerves II-XII grossly intact. Motor strength 5/5 in all extremities. Sensory grossly intact. Cerebellar exam normal. Normal gait. Psych: Awake, alert, with orientation to person, place and time. Behavior, mood, and affect are within normal limits. 21:16 Respiratory: the patient does not display signs of respiratory distress, Respirations: no acute changes, labored breathing, is not present, Breath sounds: bronchial sounds, decreased breath sounds, that are mild. 21:24 ECG was reviewed by the Attending Physician. [facility] Vital Signs: 18:20 BP 137 / 78; Pulse 71; Resp 18; Temp 98.1; Pulse Ox 98% on R/A; Weight 66.68 kg; Height mg2 5 ft. 7 in. (170.18 cm); Pain 5/10; 19:49 BP 127 / 67; Pulse 64; Resp 16; Pulse Ox 97% ; ll2 20:29 BP 139 / 61; Pulse 63; Resp 16; Pulse Ox 97% ; ll2 22:10 BP 147 / 125; Pulse 68; Resp 14; Pulse Ox 100% ; ll2 18:20 Body Mass Index 23.02 (66.68 kg, 170.18 cm) mg2 MDM: 19:24 Patient medically screened. trent 21:17 Differential diagnosis: closed fracture, contusion. Antibiotic administration: Rocephin trent and Zithromax given. HEART Score: History: Slightly Suspicious (0), ECG: Normal (0), Age: > 45 and < 65 years (1), Risk Factors: No Risk Factors Known (0), Troponin: < or = 1 x Normal Limit (0). The patient was given aspirin in the Emergency Department. The patient's Wells Deep Vein Thrombosis Score was calculated as follows: Total Score: 0. This patient was found to be at low risk for a deep vein thrombosis by using the Well's assessment criteria Total Score: 0-2 Pts- Low Risk. The patient's pulmonary embolism risk score was calculated as follows: Total Score: 0-2 points. This patient was found to be at low risk for a pulmonary embolism by using the Well's assessment criteria Total Score: 0-2 points. This patient was found to be at low risk for a pulmonary embolism by using the Well's assessment criteria. NAEEM Risk Score: TOTAL SCORE = 0. Immunization status: Influenza vaccine: Data reviewed: vital signs, nurses notes, lab test result(s), EKG, radiologic studies, plain films. Data interpreted: classroom monitor: rate is 63 beats/min, rhythm is regular, Pulse oximetry: on room air is 97 %. Test interpretation: by ED physician or midlevel provider: ECG, plain radiologic studies. 03/30 19:39 Order name: Basic Metabolic Panel [facility] 03/30 19:39 Order name: CBC with Diff; Complete Time: 22:03 [facility] 03/30 19:39 Order name: LFT's; Complete Time: 22:03 [facility] 03/30 19:39 Order name: Magnesium; Complete Time: 22:03 [facility] 03/30 19:39 Order name: NT PRO-BNP; Complete Time: 22:03 [facility] 03/30 19:39 Order name: Troponin (emerg Dept Use Only); Complete Time: 22:03 [facility] 03/30 19:39 Order name: XRAY Chest (1 view); Complete Time: 22:03 [facility] 03/30 19:39 Order name: Basic Metabolic Panel; Complete Time: 22:03 EDMS 03/30 20:25 Order name: XRAY Hand RIGHT 3 View; Complete Time: 22:03 jd3 03/30 21:08 Order name: Urine Dipstick--Ancillary (enter results); Complete Time: 22:03 ar5 03/30 21:13 Order name: D-Dimer; Complete Time: 22:06 [facility] 03/30 19:39 Order name: EKG; Complete Time: 19:40 [facility] 03/30 19:39 Order name: Cardiac monitoring; Complete Time: 19:40 [facility] 03/30 19:39 Order name: EKG - Nurse/Tech; Complete Time: 19:40 [facility] 03/30 19:39 Order name: IV Saline Lock; Complete Time: 19:56 [facility] 03/30 19:39 Order name: Labs collected and sent; Complete Time: 19:56 [facility] 03/30 19:39 Order name: O2 Per Protocol; Complete Time: 19:40 [facility] 03/30 19:39 Order name: O2 Sat Monitoring; Complete Time: 19:40 [facility] 03/30 19:39 Order name: Urine Dipstick-Ancillary (obtain specimen); Complete Time: 21:07 trent 03/30 22:04 Order name: PO challenge: juice; Complete Time: 23:00 trent EC:24 Rate is 68 beats/min. Rhythm is regular. QRS [place] is Normal. ME interval is normal. QRS trent interval is normal. QT interval is normal. No Q waves. T waves are Normal. No ST changes noted. Clinical impression: NSR w/ Non-specific ST/T Changes and No evidence of ischemia. Interpreted by me. Reviewed by me. Administered Medications: 22:15 Drug: Xopenex 2.5 mg Route: Inhalation; mg2 22:15 Drug: AtroVENT Aerosol 0.5 mg Route: Inhalation; mg2 22:15 Drug: Aspirin 81 mg Route: PO; mg2 23:01 Follow up: Response: No adverse reaction ll2 22:15 Drug: predniSONE 20 mg Route: PO; mg2 23:02 Follow up: Response: No adverse reaction ll2 22:16 Drug: SOLU-Medrol 125 mg Route: IVP; Site: left antecubital; mg2 23:01 Follow up: Response: No adverse reaction ll2 22:16 Drug: Rocephin 1 grams Route: IV; Rate: bolus; Site: left antecubital; mg2 23:01 Follow up: IV Status: Completed infusion ll2 23:01 Follow up: Response: No adverse reaction ll2 22:16 Drug: Zithromax 500 mg Route: PO; mg2 23:01 Follow up: Response: No adverse reaction ll2 23:00 Drug: Potassium Effervescent Tablet 25 mEq Route: PO; ll2 23:00 Follow up: Response: No adverse reaction 2 Disposition: 03/30/20 22:06 Discharged to Home. Impression: Chronic obstructive pulmonary disease with (acute) exacerbation, Cough, Chest pain, unspecified, Hypokalemia. - Condition is Stable. - Discharge Instructions: Nonspecific Chest Pain, Chest Wall Pain, Chronic Bronchitis, Chronic Obstructive Pulmonary Disease, Potassium Content of Foods, Cool Mist Vaporizer, Chest Wall Pain, [id number], Aspirin and Your Heart. - Prescriptions for Albuterol Sulfate 2.5 mg /3 mL (0.083 %) Inhalation Solution for Nebulization - inhale 1 unit by NEBULIZATION route every 8 hours As needed; 1 box. Prednisone 20 mg Oral Tablet - take 2 tablet by ORAL route once daily for 5 days; 10 tablet. Albuterol Sulfate 90 mcg/actuation - inhale 1-2 puff by INHALATION route every 4-6 hours; 1 Inhaler. Zithromax 500 mg Oral Tablet - take 1 tablet by ORAL route once daily for 4 days; 4 tablet. - Medication Reconciliation Form, Thank You Letter, Antibiotic Education, Prescription Opioid Use form. - Follow up: Melvin Thao; When: 2 - 3 days; Reason: Recheck today's complaints, Continuance of care, Re-evaluation by your physician. Follow up: Nakul Orourke; When: 2 - 3 days; Reason: Recheck today's complaints, Continuance of care, Re-evaluation by your physician. - Problem is new. - Symptoms have improved. Signatures: Dispatcher [employer] EDMS Feng Tian MD MD cha Gardose, Michele, RN RN mg2 Ingris Jarrell RN RN ll2 Corrections: (The following items were deleted from the chart) 23:06 22:06 03/30/2020 22:06 Discharged to Home. Impression: Chronic obstructive pulmonary ll2 disease with (acute) exacerbation; Cough; Chest pain, unspecified; Hypokalemia. Condition is Stable. Discharge Instructions: Nonspecific Chest Pain, Chest Wall Pain, Chronic Bronchitis, Chronic Obstructive Pulmonary Disease, Chest Wall Pain, [id number], Aspirin and Your Heart. Prescriptions for Albuterol Sulfate 2.5 mg /3 mL (0.083 %) Inhalation Solution for Nebulization - inhale 1 unit by NEBULIZATION route every 8 hours As needed; 1 box, Prednisone 20 mg Oral Tablet - take 2 tablet by ORAL route once daily for 5 days; 10 tablet, Albuterol Sulfate 90 mcg/actuation - inhale 1-2 puff by INHALATION route every 4-6 hours; 1 Inhaler, Zithromax 500 mg Oral Tablet - take 1 tablet by ORAL route once daily for 4 days; 4 tablet. and Forms are Medication Reconciliation Form, Thank You Letter, Antibiotic Education, Prescription Opioid Use. Follow up: Melvin Thao; When: 2 - 3 days; Reason: Recheck today's complaints, Continuance of care, Re-evaluation by your physician. Follow up: Nakul Orourke; When: 2 - 3 days; Reason: Recheck today's complaints, Continuance of care, Re-evaluation by your physician. Problem is new. Symptoms have improved. trent
[2020-03-30] MEDS ORDERED: POTASSIUM 25 MEQ EFFERV TAB ONE (22:51)
[2020-03-30 23:22] VITALS: TEMP 98.1
[2020-03-30 23:26] VITALS: BP 147/125; O2SAT 100
--- NOTE | 2020-03-31 07:21 | EKG ---
Test Date: 2020-03-30 Test Time: 18:32:18 Fast Food Supervisor: MG MEASUREMENT RESULTS: Intervals: Rate: 68 NH: 144 QRSD: 88 QT: 416 QTc: 442 [place]: P: 43 NH: 144 QRS: 24 T: 65 INTERPRETIVE STATEMENTS: Normal sinus rhythm Normal ECG Compared to ECG 11/05/2019 19:58:26 No significant changes Electronically Signed On 03-31-20 07:20:38 CDT by George Ma
== END 2020-03-30 23:06 | disposition home or self-care (01) ==
LOC: ER 18:08
DX: J44.1 Chronic obstructive pulmonary disease with (acute) exacerbation (principal); R05 Cough; E87.6 Hypokalemia; I10 Essential (primary) hypertension; E03.9 Hypothyroidism, unspecified; Z88.2 Allergy status to sulfonamides; Z88.6 Allergy status to analgesic agent; Z91.010 Allergy to peanuts
CPT/HCPCS: 96365; 93005; 85025; 80048; 36415; 83735; 85379; 80076; 81003; 84484; 83880; 71045; 73130; 96375; 99284; J7512; J0696; J2930

== ENCOUNTER 2020-04-02 18:34 | Emergency (ER) | payer OTHER ==
--- OUTSIDE RECORDS SUMMARY | 2020-04-02 18:36 | XMS REPORT | Continuity of Care Document ---
:1960 Author Organization [facility] t Address [address] [place] [address] Care Team Providers Name Role Phone DennisgildaAda [...] Facility Department ID 2019-07-27 2019-07-27 Emergency Shannon [facility] [[email or web address]] [id number] 18:07:12 20:13:00 Mariangel Grace [id number] [place] [id number] [place] [phone] [id number] 2019-07-27 2019-07-27 Orders Doctor LING [id number] 00:00:00 00:00:00 Only Unassigned, KIRK [id number] [place] [facility] [phone] [id number] 2019-03-11 2019-03-11 Emergency Nikolas [facility] [[email or web address]] [id number] 14:05:54 16:45:00 Cristobal Grace [id number] [place] [id number] [place] [id number] [phone] [id number] Results This patient has no known results.
--- NOTE | 2020-04-02 21:35 | ER ---
Nurse's Notes [facility] Name: Dolores Pérez Age: 59 yrs Sex: Female : 1960 Arrival Date: 04/02/2020 Time: 18:37 Bed 15 Private MD: Diagnosis: Chronic obstructive pulmonary disease, unspecified Presentation: 04/02 18:55 Chief complaint: Patient states: was seen here on , dx with COPD exacerbation, iw started running fever today, highest temp was 99.3, still doesn't feel good, called into work and was told she needed to see the doctor. Initial Sepsis Screen: Does the patient meet any 2 criteria? No. Patient's initial sepsis screen is negative. Does the patient have a suspected source of infection? No. Patient's initial sepsis screen is negative. Risk Assessment: Do you want to hurt yourself or someone else?. Onset of symptoms was April 02, 2020. 18:55 Method Of Arrival: Ambulatory iw 18:55 Acuity: AARON 3 iw 20:00 Coronavirus screen: Client denies travel out of the [place] in the last 14 days. fever. wh Ebola Screen: Patient negative for fever greater than or equal to 101.5 degrees Fahrenheit, and additional compatible Ebola Virus Disease symptoms Patient denies exposure to infectious person. Historical: - Allergies: 19:11 NSAIDS; iw 19:11 peanuts; iw 19:11 Sulfa (Sulfonamide Antibiotics); iw - PMHx: 19:11 Asthma; COPD; High Cholesterol; Hypertension; Hypothyroidism; iw - PSHx: 19:11 nasal sx; iw - Immunization history:: Adult Immunizations up to date. - Social history:: Smoking status: Patient/guardian denies using. Screenin:00 Abuse screen: Denies threats or abuse. Denies injuries from another. Nutritional wh screening: No deficits noted. Tuberculosis screening: No symptoms or risk factors identified. Fall Risk None identified. Assessment: 19:30 General: Appears in no apparent distress. Behavior is calm, cooperative, appropriate wh for age. Pain: Denies pain. Neuro: Level of Consciousness is awake, alert, obeys commands, Oriented to person, place, time, situation, Appropriate for age. Cardiovascular: Heart tones S1 S2. Respiratory: Airway is patent Respiratory effort is even, unlabored, Respiratory pattern is regular, symmetrical, Breath sounds are clear bilaterally. GI: Abdomen is flat, non-distended. : No deficits noted. EENT: No deficits noted. Derm: Skin is intact, is healthy with good turgor, Skin is pink, warm \T\ dry. normal. Musculoskeletal: Circulation, motion, and sensation intact. 21:00 Reassessment: Patient appears in no apparent distress at this time. No changes from previously documented assessment. Patient and/or family updated on plan of care and expected duration. Pain level reassessed. Patient is alert, oriented x 3, equal unlabored respirations, skin warm/dry/pink. 21:58 Reassessment: Patient appears in no apparent distress at this time. Patient and/or wh family updated on plan of care and expected duration. Pain level reassessed. Patient is alert, oriented x 3, equal unlabored respirations, skin warm/dry/pink. Vital Signs: 18:55 BP 151 / 79; Pulse 83; Resp 16 S; Temp 98.3; Pulse Ox 98% on R/A; Weight 63.5 kg; iw Height 5 ft. 7 in. (170.18 cm); 21:00 BP 147 / 76; Pulse 67; Resp 18; Pulse Ox 98% on R/A; wh 21:58 BP 141 / 72; Pulse 63; Resp 18; Pulse Ox 96% on R/A; wh 18:55 Body Mass Index 21.93 (63.50 kg, 170.18 cm) iw ED Course: 18:37 Patient arrived in ED. ds1 18:58 Triage completed. iw 19:11 Arm band placed on. iw 19:15 June Rosario is Primary Nurse. wh 19:28 Esperanza Harrison FNP-C is PHCP. snw 19:28 Jaquan Campa MD is Attending Physician. snw 20:00 Patient has correct armband on for positive identification. Bed in low position. Call light in reach. Side rails up X 1. Pulse ox on. NIBP on. 21:58 No provider procedures requiring assistance completed. Patient did not have IV access during this emergency room visit. Administered Medications: No medications were administered Outcome: 21:35 Discharge ordered by . snw 21:58 Discharged to home ambulatory. wh 21:58 Condition: stable 21:58 Discharge instructions given to patient, Instructed on discharge instructions, follow up and referral plans. no drinking with medication, no driving heavy equipment, medication usage, POC Demonstrated understanding of instructions, follow-up care, medications, POC Prescriptions given X 1. 21:59 Patient left the ED. Signatures: Esperanza Harrison, SALES AND MARKETING COORDINATOR-C SALES AND MARKETING COORDINATOR-Csnw Magdalena Tanner ds1 Shira Madrigal, RN RN June Bonds
--- NOTE | 2020-04-02 21:35 | EDPHYS ---
Physician Documentation [facility] Name: Dolores Pérez Age: 59 yrs Sex: Female : 1960 Arrival Date: 04/02/2020 Time: 18:37 Bed 15 Private MD: ED Physician Jaquan Campa HPI: 04/02 21:57 This 59 yrs old Female presents to ER via Ambulatory with complaints of Fever.snw 21:57 The patient reports fever, not measured (subjective). Onset: The symptoms/episode snw began/occurred acutely. Modifying factors: Recent medications: Zithromax, Other Prednisone, Albuterol. Associated signs and symptoms: Pertinent positives: right upper back pain with cough, movement. Severity of symptoms: At their worst the symptoms were moderate in the emergency department the symptoms are unchanged. The patient has experienced similar episodes in the past. The patient has been recently seen by a physician: The patient has been recently seen at the [facility] Emergency Department, for similar complaints. Historical: - Allergies: 19:11 NSAIDS; iw 19:11 peanuts; iw 19:11 Sulfa (Sulfonamide Antibiotics); iw - PMHx: 19:11 Asthma; COPD; High Cholesterol; Hypertension; Hypothyroidism; iw - PSHx: 19:11 nasal sx; iw - Immunization history:: Adult Immunizations up to date. - Social history:: Smoking status: Patient/guardian denies using. ROS: 21:55 Constitutional: Negative for fever, chills, and weight loss, Eyes: Negative for injury, snw pain, redness, and discharge, ENT: Negative for injury, pain, and discharge, Neck: Negative for injury, pain, and swelling, Cardiovascular: Negative for chest pain, palpitations, and edema, Abdomen/GI: Negative for abdominal pain, nausea, vomiting, diarrhea, and constipation, Back: Negative for injury and pain, : Negative for injury, bleeding, discharge, and swelling, MS/Extremity: Negative for injury and deformity, Skin: Negative for injury, rash, and discoloration, Neuro: Negative for headache, weakness, numbness, tingling, and seizure, Psych: Negative for depression, anxiety, suicide ideation, homicidal ideation, and hallucinations. 21:55 Respiratory: Positive for pleurisy, of the right lateral posterior chest. Exam: 21:55 Constitutional: This is a well developed, well nourished patient who is awake, alert, snw and in no acute distress. Head/Face: Normocephalic, atraumatic. Eyes: Pupils equal round and reactive to light, extra-ocular motions intact. Lids and lashes normal. Conjunctiva and sclera are non-icteric and not injected. Cornea within normal limits. Periorbital areas with no swelling, redness, or edema. ENT: Nares patent. No nasal discharge, no septal abnormalities noted. Tympanic membranes are normal and external auditory canals are clear. Oropharynx with no redness, swelling, or masses, exudates, or evidence of obstruction, uvula midline. Mucous membranes moist. Neck: Trachea midline, no thyromegaly or masses palpated, and no cervical lymphadenopathy. Supple, full range of motion without nuchal rigidity, or vertebral point tenderness. No Meningismus. Chest/axilla: Normal chest wall appearance and motion. Nontender with no deformity. No lesions are appreciated. Cardiovascular: Regular rate and rhythm with a normal S1 and S2. No gallops, murmurs, or rubs. Normal PMI, no JVD. No pulse deficits. Respiratory: Lungs have equal breath sounds bilaterally, clear to auscultation and percussion. No rales, rhonchi or wheezes noted. No increased work of breathing, no retractions or nasal flaring. Abdomen/GI: Soft, non-tender, with normal bowel sounds. No distension or tympany. No guarding or rebound. No evidence of tenderness throughout. Back: No spinal tenderness. No costovertebral tenderness. Full range of motion. Skin: Warm, dry with normal turgor. Normal color with no rashes, no lesions, and no evidence of cellulitis. MS/ Extremity: Pulses equal, no cyanosis. Neurovascular intact. Full, normal range of motion. Neuro: Awake and alert, GCS 15, oriented to person, place, time, and situation. Cranial nerves II-XII grossly intact. Motor strength 5/5 in all extremities. Sensory grossly intact. Cerebellar exam normal. Normal gait. Psych: Awake, alert, with orientation to person, place and time. Behavior, mood, and affect are within normal limits. Vital Signs: 18:55 BP 151 / 79; Pulse 83; Resp 16 S; Temp 98.3; Pulse Ox 98% on R/A; Weight 63.5 kg; iw Height 5 ft. 7 in. (170.18 cm); 21:00 BP 147 / 76; Pulse 67; Resp 18; Pulse Ox 98% on R/A; wh 21:58 BP 141 / 72; Pulse 63; Resp 18; Pulse Ox 96% on R/A; wh 18:55 Body Mass Index 21.93 (63.50 kg, 170.18 cm) iw MDM: 20:09 Patient medically screened. snw 21:56 Data reviewed: vital signs, nurses notes. Data interpreted: Pulse oximetry: on room air snw is 98 %. Interpretation: normal. Counseling: I had a detailed discussion with the patient and/or guardian regarding: the historical points, exam findings, and any diagnostic results supporting the discharge/admit diagnosis, radiology results, the need for outpatient follow up, to return to the emergency department if symptoms worsen or persist or if there are any questions or concerns that arise at home. Special discussion: Based on the history and exam findings, there is no indication for further emergent testing or inpatient evaluation. I discussed with the patient/guardian the need to see the primary care provider for further evaluation of the symptoms. 21:56 Special discussion: Based on the history and exam findings, there is no indication for snw further emergent testing or inpatient evaluation. I discussed with the patient/guardian the need to see the second watch sergeant for further evaluation of the symptoms. 04/02 20:10 Order name: Chest Pa And Lat (2 Views) XRAY snw Administered Medications: No medications were administered Disposition: 04/03 01:21 Co-signature as Attending Physician, Jaquan Campa MD. pkl Disposition: 04/02/20 21:35 Discharged to Home. Impression: Chronic obstructive pulmonary disease, unspecified. - Condition is Stable. - Discharge Instructions: Chronic Bronchitis, Chronic Obstructive Pulmonary Disease, How to Use an Inhaler. - Prescriptions for Ultram 50 mg Oral Tablet - take 1 tablet by ORAL route every 6 hours As needed; 12 tablet. - Medication Reconciliation Form, Thank You Letter, Antibiotic Education, Prescription Opioid Use, Work release form form. - Follow up: Emergency Department; When: As needed; Reason: Worsening of condition. Follow up: Private Physician; When: 2 - 3 days; Reason: Recheck today's complaints, Continuance of care, Re-evaluation by your physician. Signatures: Dispatcher [employer] Jaquan Mehta MD MD pkl Waters, Shelly, JEWEL STRIPPER-C JEWEL STRIPPER-Csnw Shira Madrigal, RN RN June Bonds Corrections: (The following items were deleted from the chart) 04/02 21:59 21:35 04/02/2020 21:35 Discharged to Home. Impression: Chronic obstructive pulmonary wh disease, unspecified. Condition is Stable. Forms are Medication Reconciliation Form, Thank You Letter, Antibiotic Education, Prescription Opioid Use. Follow up: Emergency Department; When: As needed; Reason: Worsening of condition. Follow up: Private Physician; When: 2 - 3 days; Reason: Recheck today's complaints, Continuance of care, Re-evaluation by your physician. snw
[2020-04-02 22:08] VITALS: TEMP 98.3
[2020-04-02 22:10] VITALS: BP 141/72; O2SAT 96
--- NOTE | 2020-04-03 07:28 | RAD REPORT ---
EXAM DESCRIPTION: RAD - Chest Pa And Lat (2 Views) - 04/02/2020 8:43 pm CLINICAL HISTORY: COPD COMPARISON: March 30 TECHNIQUE: Frontal and lateral views of the chest were obtained. FINDINGS: The lungs are clear. Heart size is normal and central vasculature is within normal limit s. No pleural effusion or pneumothorax seen. No acute bony finding noted. No aortic abnormality. IMPRESSION: No acute cardiopulmonary process. No significant change from comparison.
== END 2020-04-02 21:59 | disposition home or self-care (01) ==
LOC: ER 18:34
DX: J44.9 Chronic obstructive pulmonary disease, unspecified (principal)
CPT/HCPCS: 71046; 99283

== ENCOUNTER 2020-04-29 15:37 | Emergency (ER) | payer OTHER ==
--- OUTSIDE RECORDS SUMMARY | 2020-04-29 15:39 | XMS REPORT | Continuity of Care Document ---
:[address] [facility] t Address [address] [place] [address] Care Team Providers Name Role Phone DennisgildaAda [...] Facility Department ID 2019-07-27 2019-07-27 Emergency Shannon [facility] [id number] 18:07:12 20:13:00 Mariangel Grace [id number] [place] [id number] [place] [id number] [id number] 2019-07-27 2019-07-27 Orders Doctor LING [id number] 00:00:00 00:00:00 Only Unassigned, KIRK [id number] [place] [facility] [id number] 2019-03-11 2019-03-11 Emergency Nikolas [facility] [id number] 14:05:54 16:45:00 Cristobal Grace [id number] [place] [id number] [place] [address] [phone] [id number] Results This patient has no known results.
--- NOTE | 2020-04-29 16:55 | ER ---
Nurse's Notes [facility] Name: Dolores Pérez Age: 59 yrs Sex: Female : 1960 Arrival Date: 04/29/2020 Time: 15:42 Bed 20 Private MD: Diagnosis: Person with feared health complaint in whom no diagnosis is made Presentation: 04/29 15:45 Chief complaint: Patient states: "I think I may have taken too much of my medicine." Pt sv took a Tylenol #3 and a Xanax as prescribe and not more than what it says at 1100 today, reports feeling sleepy. Coronavirus screen: Client denies travel out of the [place] in the last 14 days. At this time, the client does not indicate any symptoms associated with coronavirus-19. Ebola Screen: No symptoms or risks identified at this time. Risk Assessment: Do you want to hurt yourself or someone else? Patient reports no desire to harm self or others. Onset of symptoms was April 29, 2020. 15:45 Method Of Arrival: Wheelchair sv 15:45 Acuity: AARON 4 sv 15:47 Initial Sepsis Screen: Does the patient meet any 2 criteria? No. Patient's initial sv sepsis screen is negative. Does the patient have a suspected source of infection? No. Patient's initial sepsis screen is negative. Historical: - Allergies: 15:47 NSAIDS; sv 15:47 peanuts; sv 15:47 Sulfa (Sulfonamide Antibiotics); sv - PMHx: 15:47 Asthma; COPD; High Cholesterol; Hypertension; Hypothyroidism; sv - PSHx: 15:47 nasal sx; sv Screenin:21 Abuse screen: Denies threats or abuse. Nutritional screening: No deficits noted. em Tuberculosis screening: No symptoms or risk factors identified. Fall Risk None identified. Assessment: 17:12 General: Appears in no apparent distress. comfortable, Behavior is calm, cooperative, em appropriate for age. Pain: Denies pain. Neuro: Level of Consciousness is awake, alert, obeys commands, Oriented to person, place, time, situation, Appropriate for age. Cardiovascular: Capillary refill < 3 seconds Patient's skin is warm and dry. Respiratory: Airway is patent Respiratory effort is even, unlabored, Respiratory pattern is regular, symmetrical. Derm: Skin is intact, is healthy with good turgor, Skin is pink, warm \\T\\ dry. Musculoskeletal: Capillary refill < 3 seconds, Range of motion: intact in all extremities. Vital Signs: 15:47 BP 131 / 82; Pulse 85; Resp 18; Temp 98; Pulse Ox 97% ; Weight 62.6 kg; Height 5 ft. 7 sv in. (170.18 cm); 15:47 Body Mass Index 21.62 (62.60 kg, 170.18 cm) sv ED Course: 15:42 Patient arrived in ED. mr 15:45 Arm band placed on. sv 15:46 Triage completed. sv 16:00 Feng Pope PA is PHCP. cp 16:00 Dorian Etienne MD is Attending Physician. cp 17:12 Urine Dipstick--Ancillary (enter results) Sent. sv 17:21 Augustine Bautista, RN is Primary Nurse. em 17:21 Patient has correct armband on for positive identification. Bed in low position. Call em light in reach. Adult w/ patient. Pulse ox on. NIBP on. 17:21 No provider procedures requiring assistance completed. Patient did not have IV access em during this emergency room visit. Administered Medications: No medications were administered Outcome: 16:54 Discharge ordered by . cp 17:21 Discharged to home ambulatory. em 17:21 Condition: good 17:21 Discharge instructions given to patient, Instructed on discharge instructions, follow up and referral plans. Demonstrated understanding of instructions, follow-up care. 17:28 Patient left the ED. em Signatures: Erica Dewitt RN RN Cherise Edmond mr Augustine Bautista RN RN em Feng Pope PA PA cp Corrections: (The following items were deleted from the chart) 15:48 15:45 Chief complaint: Patient states: "I think I may have taken too much of my sv medicine." Pt took a Tylenol #3 and a Xanax at 1100 today, reports feeling sleepy. sv 15:49 15:47 Pulse 85bpm; Resp 18bpm; Pulse Ox 97%; Temp 98F; 62.6 kg; Height 5 ft. 7 in.; sv BMI: 21.6; sv
--- NOTE | 2020-04-29 16:55 | EDPHYS ---
Physician Documentation [facility] Name: Dolores Pérez Age: 59 yrs Sex: Female : 1960 Arrival Date: 04/29/2020 Time: 15:42 Bed 20 Private MD: ED Physician Dorian Etienne HPI: 04/29 16:38 This 59 yrs old Female presents to ER via Wheelchair with complaints of cp Doesn't Feel Right. 16:40 Patient reports she took prescribed Gabapentin and Xanax earlier today and 's cp prescribed Tylenol with codeine for toe pain. Patient reports history of toe fracture 2 weeks ago and being prescribed gabapentin for pain. Xanax is prescribed for anxiety. Patient came to ED because she felt sleepy . Historical: - Allergies: 15:47 NSAIDS; sv 15:47 peanuts; sv 15:47 Sulfa (Sulfonamide Antibiotics); sv - PMHx: 15:47 Asthma; COPD; High Cholesterol; Hypertension; Hypothyroidism; sv - PSHx: 15:47 nasal sx; sv ROS: 16:40 Constitutional: Negative for fever, poor PO intake. cp 16:40 All other systems are negative. cp Exam: 16:45 Constitutional: The patient appears in no acute distress, alert, awake, cp non-diaphoretic, non-toxic, well developed, well nourished. 16:45 Head/Face: Normocephalic, atraumatic. cp 16:45 Eyes: Periorbital structures: appear normal, Conjunctiva: normal, no exudate, no injection, Lids and lashes: appear normal, bilaterally. 16:45 ENT: External ear(s): are unremarkable, Nose: is normal, Mouth: Lips: moist, Oral mucosa: moist, Posterior pharynx: Airway: no evidence of obstruction, patent. 16:45 Chest/axilla: Inspection: normal, Palpation: is normal, no crepitus, no tenderness. 16:45 Cardiovascular: Rate: normal, Rhythm: regular. 16:45 Respiratory: the patient does not display signs of respiratory distress, Respirations: normal, no use of accessory muscles, no retractions, labored breathing, is not present, Breath sounds: are clear throughout, no decreased breath sounds. 16:45 Abdomen/GI: Inspection: abdomen appears normal. 16:45 Skin: cellulitis, is not appreciated. 16:45 Neuro: Orientation: to person, place \T\ time. Mentation: is normal, Cerebellar function: is grossly normal, Motor: moves all fours, strength is normal, Sensation: is normal. Vital Signs: 15:47 BP 131 / 82; Pulse 85; Resp 18; Temp 98; Pulse Ox 97% ; Weight 62.6 kg; Height 5 ft. 7 sv in. (170.18 cm); 15:47 Body Mass Index 21.62 (62.60 kg, 170.18 cm) sv MDM: 16:02 Patient medically screened. cp 16:53 Data reviewed: vital signs, nurses notes, and as a result, I will discharge patient. cp 16:53 Differential diagnosis: acute psychotic break, depression, drug overdose. Counseling: I cp had a detailed discussion with the patient and/or guardian regarding: the historical points, exam findings, and any diagnostic results supporting the discharge/admit diagnosis, to return to the emergency department if symptoms worsen or persist or if there are any questions or concerns that arise at home. 04/29 16:20 Order name: Urine Dipstick--Ancillary (enter results) eb 04/29 16:21 Order name: Urine Dipstick-Ancillary EDMS Administered Medications: No medications were administered Disposition: 17:00 Chart complete. cp 17:30 Co-signature as Attending Physician, Dorian Etienne MD. rn Disposition: 04/29/20 16:54 Discharged to Home. Impression: Person with feared health complaint in whom no diagnosis is made. - Condition is Stable. - Medication Reconciliation Form, Thank You Letter, Antibiotic Education, Prescription Opioid Use form. - Follow up: Private Physician; When: As needed; Reason: Worsening of condition. - Problem is new. - Symptoms are unchanged. Signatures: Dispatcher [employer] EDMS Erica Dewitt RN RN Augustine Bautista RN RN em Nieto, Roman, MD MD rn Page, Corey, PA PA cp Corrections: (The following items were deleted from the chart) 17:28 16:54 04/29/2020 16:54 Discharged to Home. Impression: Person with feared health em complaint in whom no diagnosis is made. Condition is Stable. Forms are Medication Reconciliation Form, Thank You Letter, Antibiotic Education, Prescription Opioid Use. Follow up: Private Physician; When: As needed; Reason: Worsening of condition. Problem is new. Symptoms are unchanged. cp
[2020-04-29 17:04] LABS: Urine Blood NEGATIVE (NEG); Urine Glucose TRACE (NEG); Urine Protein NEGATIVE (NEG); Urine Specific Gravity 1.015 (1.005-1.030); Urine pH 6.5 (5.0-7.0)
[2020-04-29 17:38] VITALS: BP 131/82; TEMP 98; O2SAT 97
== END 2020-04-29 17:28 | disposition home or self-care (01) ==
LOC: ER 15:37
DX: Z71.1 Person with feared health complaint in whom no diagnosis is made (principal); I10 Essential (primary) hypertension; Z88.2 Allergy status to sulfonamides; Z88.6 Allergy status to analgesic agent; Z91.010 Allergy to peanuts
CPT/HCPCS: 81003; 99283

== ENCOUNTER 2020-08-06 16:05 | Emergency (ER) | payer OTHER ==
--- OUTSIDE RECORDS SUMMARY | 2020-08-06 16:07 | XMS REPORT | Continuity of Care Document ---
:1960 Author Organization [facility] t Address [address] [place] [address] Care Team Providers Name Role Phone Ada Miller Attending Clinician Doctor Unassigned, Name Attending Clinician [...] Facility Department ID 2019-07-27 2019-07-27 Emergency Shannon [place] [id number] 18:07:12 20:13:00 Mariangel Grace [id number] [place] [id number] [place] [phone] [id number] 2019-07-27 2019-07-27 Orders Doctor LING [id number] 00:00:00 00:00:00 Only Unassigned, KIRK [id number] [place] [facility] [id number] 2019-03-11 2019-03-11 Emergency STALIN Connor [id number] 14:05:54 16:45:00 Cristobal Grace [id number] [place] [id number] [place] [address] [id number] [id number] Results This patient has no known results.
[2020-08-06] MEDS ORDERED: dexAMETHasone 10 MG/ML VIAL ONE (17:43)
[2020-08-06] MEDS ORDERED: ALBUTEROL 2.5 MG/3 ML NEB SOL ONE (17:44)
[2020-08-06] MEDS ORDERED: IPRATROPIUM BROM 0.5MG/2.5ML ONE (17:44)
[2020-08-06 18:32] LABS: SARS-COV-2 RT PCR POSITIVE (NEGATIVE)
--- NOTE | 2020-08-06 18:38 | RAD REPORT ---
EXAM DESCRIPTION: [place] Single View08/06/2020 6:08 pm CLINICAL HISTORY: cough COMPARISON: March 2020 FINDINGS: The lungs appear clear of acute infiltrate. The heart is normal size IMPRESSION: No acute abnormalities displayed
--- NOTE | 2020-08-06 18:57 | EDPHYS ---
Physician Documentation [facility] Name: Dolores Pérez Age: 60 yrs Sex: Female : 1960 Arrival Date: 08/06/2020 Time: 16:09 Bed 13 Private MD: Melvin Thao R ED Physician Danyell Nascimento HPI: 08/06 17:39 This 60 yrs old Female presents to ER via Ambulatory with complaints of pm1 Shortness Of Breath, Fever. 17:39 The patient or guardian reports cough, with no sputum, SOB, fatigue, weakness. Onset: pm1 The symptoms/episode began/occurred 2 day(s) ago. Severity of symptoms: in the emergency department the symptoms are unchanged. Modifying factors: The symptoms are alleviated by nothing, the symptoms are aggravated by nothing. Associated signs and symptoms: Pertinent positives: fever, SOB, fatigue, weakness. The patient has not experienced similar symptoms in the past. The patient has not recently seen a physician. Historical: - Allergies: 16:23 peanuts; ll1 16:23 Sulfa (Sulfonamide Antibiotics); ll1 16:23 NSAIDS; ll1 - PMHx: 16:23 Asthma; COPD; High Cholesterol; Hypertension; Hypothyroidism; ll1 - PSHx: 16:23 nasal sx; heart cath; ll1 - Immunization history:: Flu vaccine is up to date. - Social history:: Smoking status: Patient denies any tobacco usage or history of. ROS: 17:39 Cardiovascular: Negative for chest pain, palpitations, and edema. pm1 17:39 Abdomen/GI: Negative for abdominal pain, nausea, vomiting, diarrhea, and constipation, Back: Negative for injury and pain, MS/Extremity: Negative for injury and deformity, Skin: Negative for injury, rash, and discoloration, Neuro: Negative for headache, weakness, numbness, tingling, and seizure. 17:39 Constitutional: Positive for fatigue, fever. 17:39 ENT: Negative for ear pain, sore throat. 17:39 Respiratory: Positive for cough, shortness of breath, Negative for sputum production, wheezing. Exam: 17:39 Constitutional: This is a well developed, well nourished patient who is awake, alert, pm1 and in no acute distress. Head/Face: Normocephalic, atraumatic. 17:39 Skin: Warm, dry with normal turgor. Normal color with no rashes, no lesions, and no evidence of cellulitis. MS/ Extremity: Pulses equal, no cyanosis. Neurovascular intact. Full, normal range of motion. 17:39 ENT: Exam is negative for acute changes, External ear(s): are unremarkable, Ear canal(s): are normal, TM's: are normal, Posterior pharynx: is normal, airway is patent, no erythema, no exudate, no peritonsilar mass, no pooling of secretions, no swelling, no acute changes. 17:39 Cardiovascular: Rate: normal, Rhythm: regular, Pulses: no pulse deficits are appreciated. 17:39 Respiratory: Exam negative for acute changes, respiratory distress, shortness of breath, Breath sounds: are clear throughout. 17:39 Abdomen/GI: Inspection: abdomen appears normal, Palpation: abdomen is soft and non-tender, in all quadrants. 17:39 Neuro: Exam negative for acute changes, Orientation: is normal, Mentation: is normal, Motor: is normal. Vital Signs: 16:23 BP 163 / 80; Pulse 94; Resp 17; Temp 99.1; Pulse Ox 97% ; Weight 63.5 kg; Height 5 ft. ll1 7 in. (170.18 cm); Pain 3/10; 16:51 BP 134 / 84; Pulse 97; Resp 18; Pulse Ox 100% on R/A; vg1 18:07 BP 146 / 76; Pulse 98; Resp 18; Pulse Ox 100% on R/A; vg1 16:23 Body Mass Index 21.93 (63.50 kg, 170.18 cm) ll1 MDM: 17:10 Patient medically screened. pm1 18:54 Data reviewed: vital signs. Data interpreted: Pulse oximetry: on room air is 100 %. pm1 Interpretation: normal. Counseling: I had a detailed discussion with the patient and/or guardian regarding: the historical points, exam findings, and any diagnostic results supporting the discharge/admit diagnosis, lab results, radiology results, the need for outpatient follow up, to return to the emergency department if symptoms worsen or persist or if there are any questions or concerns that arise at home. 18:54 ED course: Patient refused ivermectin. Patient with copd, will cover with abx. pm1 08/06 17:12 Order name: Strep; Complete Time: 18:15 pm1 08/06 17:12 Order name: CXR XRAY; Complete Time: 18:48 pm1 08/06 18:08 Order name: Throat Culture EDAZ 08/06 18:33 Order name: COVID-19/FLU A+B; Complete Time: 18:37 EDAZ 08/06 17:12 Order name: Droplet/Contact Precautions; Complete Time: 17:24 pm1 08/06 17:12 Order name: Labs collected and sent; Complete Time: 17:38 pm1 08/06 17:12 Order name: O2 Per Protocol; Complete Time: 17:24 pm1 Administered Medications: 17:38 Drug: Decadron 10 mg Route: IM; Site: right deltoid; vg1 18:07 Follow up: Response: No adverse reaction vg1 17:38 Drug: Albuterol - atroVENT (3:1) (2.5 mg - 0.5 mg) 3 ml Route: Nebulizer; vg1 18:07 Follow up: Response: No adverse reaction vg1 Disposition: 08/07 18:31 Co-signature as Attending Physician, Danyell Nascimento MD I agree with the assessment ma2 and plan of care. Disposition: 08/06/20 18:56 Discharged to Home. Impression: Coronavirus infection, unspecified. - Condition is Stable. - Discharge Instructions: COVID-19. - Prescriptions for Prednisone 20 mg Oral Tablet - take 3 tablet by ORAL route once daily for 5 days; 15 tablet. Zithromax Z- [place] 250 mg Oral Tablet - take 1 tablet by ORAL route as directed for 5 days Day 1 - take two (2) tablets one time. Day 2, 3, 4 , 5 take one (1) tablet once daily.; 6 tablet. Albuterol Sulfate 90 mcg/actuation - inhale 1-2 puff by INHALATION route every 4-6 hours; 1 Inhaler. - Medication Reconciliation Form, Thank You Letter, Antibiotic Education, Prescription Opioid Use form. - Follow up: Emergency Department; When: As needed; Reason: Worsening of condition. Follow up: Private Physician; When: 2 - 3 days; Reason: Recheck today's complaints, Continuance of care, Re-evaluation by your physician. - Problem is new. - Symptoms have improved. Signatures: Dispatcher [employer] [facility] Zac Menendez WAX POURER WAX POURER pm1 Danyell Nascimento MD MD ma2 Quita Jordan, RN RN vg1 Prabha Hummel, RN RN ll1 Corrections: (The following items were deleted from the chart) 08/06 17:41 17:14 Influenza Screen (A \T\ B)+BA.LAB.BRZ ordered. EDAZ EDAZ 17:41 17:14 CORONAVIRUS+MR.LAB.BRZ ordered. [facility] EDAZ 19:23 18:56 08/06/2020 18:56 Discharged to Home. Impression: Coronavirus infection, vg1 unspecified. Condition is Stable. Forms are Medication Reconciliation Form, Thank You Letter, Antibiotic Education, Prescription Opioid Use. Follow up: Emergency Department; When: As needed; Reason: Worsening of condition. Follow up: Private Physician; When: 2 - 3 days; Reason: Recheck today's complaints, Continuance of care, Re-evaluation by your physician. Problem is new. Symptoms have improved. pm1
--- NOTE | 2020-08-06 18:57 | ER ---
Nurse's Notes [facility] Name: Dolores Pérez Age: 60 yrs Sex: Female : 1960 Arrival Date: 08/06/2020 Time: 16:09 Bed 13 Private MD: Melvin Thao R Diagnosis: Coronavirus infection, unspecified Presentation: 08/06 16:23 Chief complaint: Patient states: Cough, SOB, fatigue, weakness, fever for 2 days. ll1 Tongue is dry with white coating on top. Fever 100 last night. Coronavirus screen: chills, cough unrelated to allergies, difficulty breathing, fatigue, fever, Client presents with at least one sign or symptom that may indicate coronavirus-19. Standard/surgical mask placed on the client. Ebola Screen: Patient denies travel to an Ebola-affected area in the 21 days before illness onset. Initial Sepsis Screen: Does the patient meet any 2 criteria? HR > 90 bpm. No. Patient's initial sepsis screen is negative. Does the patient have a suspected source of infection? Yes: Productive cough/pneumonia. Risk Assessment: Do you want to hurt yourself or someone else? Patient reports no desire to harm self or others. Onset of symptoms was August 05, 2020. 16:23 Method Of Arrival: Ambulatory ll1 16:23 Acuity: AARON 3 ll1 Historical: - Allergies: 16:23 peanuts; ll1 16:23 Sulfa (Sulfonamide Antibiotics); ll1 16:23 NSAIDS; ll1 - PMHx: 16:23 Asthma; COPD; High Cholesterol; Hypertension; Hypothyroidism; ll1 - PSHx: 16:23 nasal sx; heart cath; ll1 - Immunization history:: Flu vaccine is up to date. - Social history:: Smoking status: Patient denies any tobacco usage or history of. Screenin:52 Abuse screen: Denies threats or abuse. Nutritional screening: No deficits noted. vg1 Tuberculosis screening: No symptoms or risk factors identified. Fall Risk No fall in past 12 months (0 pts). No secondary diagnosis (0 pts). No IV (0 pts). Ambulatory Aid- None/Bed Rest/Nurse Assist (0 pts). Gait- Normal/Bed Rest/Wheelchair (0 pts) Mental Status- Oriented to own ability (0 pts). Total Ta Fall Scale indicates No Risk (0-24 pts). Assessment: 16:49 General: Appears in no apparent distress. comfortable, Behavior is calm, cooperative. vg1 Pain: Denies pain. Neuro: Level of Consciousness is awake, alert, obeys commands, Oriented to person, place, time, situation. Cardiovascular: Patient's skin is warm and dry. Respiratory: Airway is patent Respiratory effort is even, unlabored, Respiratory pattern is regular, symmetrical. GI: Reports constipation, last BM was Friday. Stated was soft and brown. : No signs and/or symptoms were reported regarding the genitourinary system. EENT: patient has white patches on tongue. . Derm: Skin is intact, is healthy with good turgor. Musculoskeletal: Circulation, motion, and sensation intact. 16:51 Respiratory: Breath sounds are clear bilaterally. vg1 18:07 Reassessment: Patient appears in no apparent distress at this time. No changes from vg1 previously documented assessment. Patient and/or family updated on plan of care and expected duration. Pain level reassessed. Patient is alert, oriented x 3, equal unlabored respirations, skin warm/dry/pink. Patient denies pain at this time. Vital Signs: 16:23 BP 163 / 80; Pulse 94; Resp 17; Temp 99.1; Pulse Ox 97% ; Weight 63.5 kg; Height 5 ft. ll1 7 in. (170.18 cm); Pain 3/10; 16:51 BP 134 / 84; Pulse 97; Resp 18; Pulse Ox 100% on R/A; vg1 18:07 BP 146 / 76; Pulse 98; Resp 18; Pulse Ox 100% on R/A; vg1 16:23 Body Mass Index 21.93 (63.50 kg, 170.18 cm) ll1 ED Course: 16:09 Patient arrived in ED. mr 16:09 Melvin Thao MD is Private Physician. mr 16:22 Arm band placed on. ll1 16:25 Triage completed. ll1 16:41 Zac Menendez NP is PHCP. pm1 16:41 Danyell Nascimento MD is Attending Physician. pm1 16:42 Quita Jordan, RN is Primary Nurse. vg1 16:52 Patient has correct armband on for positive identification. Bed in low position. Call vg1 light in reach. Side rails up X 1. 17:37 COVID swab sent to lab. Flu and/or RSV swab sent to lab. Strep swab sent to lab. jp3 18:08 CXR XRAY In Process Unspecified. EDMS 19:22 No provider procedures requiring assistance completed. Patient did not have IV access vg1 during this emergency room visit. Administered Medications: 17:38 Drug: Decadron 10 mg Route: IM; Site: right deltoid; vg1 18:07 Follow up: Response: No adverse reaction vg1 17:38 Drug: Albuterol - atroVENT (3:1) (2.5 mg - 0.5 mg) 3 ml Route: Nebulizer; vg1 18:07 Follow up: Response: No adverse reaction vg1 Outcome: 18:56 Discharge ordered by . pm1 19:22 Discharged to home ambulatory. vg1 19:22 Condition: stable 19:22 Discharge instructions given to patient, Instructed on discharge instructions, follow up and referral plans. medication usage, Demonstrated understanding of instructions, follow-up care, medications, Prescriptions given X 3. 19:23 Patient left the ED. vg1 Signatures: Dispatcher [employer] [facility] Cherise Edmond [employer]on[employer], TRAFFIC AND TRANSPORT PLANNER TRAFFIC AND TRANSPORT PLANNER pm1 Abhishek Friend jp3 Quita Jordan, RN RN vg1 Prabha Hummel RN RN ll1
[2020-08-06 19:28] VITALS: TEMP 99.1
[2020-08-06 19:29] VITALS: O2SAT 100
[2020-08-06 19:31] VITALS: BP 146/76
== END 2020-08-06 19:23 | disposition home or self-care (01) ==
LOC: ER 16:05
DX: U07.1 COVID-19 (principal); R05 Cough; R06.02 Shortness of breath; Z88.2 Allergy status to sulfonamides; Z91.010 Allergy to peanuts
CPT/HCPCS: 87070; 87081; 0240U; 71045; J1100; 96372; 99284

== ENCOUNTER 2020-08-12 18:33 | Emergency (ER) | payer OTHER ==
--- OUTSIDE RECORDS SUMMARY | 2020-08-12 18:36 | XMS REPORT | Continuity of Care Document ---
:1960 Author Organization [facility] t Address [address] [place] [address] Care Team Providers Name Role Phone Ada [...] Facility Department ID 2019-07-27 2019-07-27 Emergency Shannon [facility] [id number] 18:07:12 20:13:00 Mariangel Grace [id number] [place] [id number] [place] [phone] [id number] 2019-07-27 2019-07-27 Orders Doctor LING [id number] 00:00:00 00:00:00 Only Unassigned, KIRK [id number] [place] [facility] [phone] [id number] 2019-03-11 2019-03-11 Emergency STALIN Connor [id number] 14:05:54 16:45:00 Cristobal Grace [id number] [place] [id number] [place] [phone] [id number] Results This patient has no known results.
[2020-08-12 21:27] LABS: Absolute Lymphocytes (CBC) 1.9 K/uL (0.7-4.9); Basophils % 0.1 % (0-1.3); Hematocrit 38.1 % (36.0-45.0); Lymphocytes % 22.7 % (15.3-44.8); MPV 9.5 fL (7.6-11.3); RBC Red Blood Cell Count 4.25 M/uL (3.86-4.86)
[2020-08-12 21:30] LABS: Protime INR 0.93
[2020-08-12] MEDS ORDERED: ALBUTEROL INHALER 60 PUFF/8 GM IH ONE (21:37)
[2020-08-12 21:45] LABS: ALT/SGPT 42 U/L (12-78); AST/SGOT 20 U/L (15-37); Albumin 3.8 g/dL (3.4-5.0); Alkaline Phosphatase 90 U/L (45-117); BUN Blood Urea Nitrogen 20 mg/dL (7-18); Bicarbonate 25 mmol/L (21-32); Bilirubin Direct 0.1 mg/dL (0-0.2); Bilirubin Total 0.3 mg/dL (0.2-1.0); Glucose Level 290 mg/dL (74-106); Magnesium 2.1 mg/dL (1.8-2.4); NT PRO-BNP 35 pg/mL (<125); Potassium 3.3 mmol/L (3.5-5.1); Protein, Total 7.6 g/dL (6.4-8.2); Sodium Level 137 mmol/L (136-145); Troponin (Emerg Dept Use Only) < 0.02 ng/mL (0.0-0.045)
[2020-08-12 23:10] LABS: Urine Blood TRACE (NEG); Urine Glucose 2+ (NEG); Urine Protein 1+ (NEG); Urine Specific Gravity 1.025 (1.005-1.030)
[2020-08-12] MEDS ORDERED: NA CHLORIDE 0.9% 1,000 ML ONE (23:35)
--- NOTE | 2020-08-13 01:53 | ER ---
Nurse's Notes [facility] Name: Dolores Pérez Age: 60 yrs Sex: Female : 1960 Arrival Date: 08/12/2020 Time: 18:34 Bed 6 Private MD: Melvin Thao R Diagnosis: COVID Pneumonia Presentation: 08/12 19:04 Chief complaint: Patient states: tested positive for COVID last Friday . has been on iw steroids but still having difficulty breathing, still has cough. Coronavirus screen: Client presents with at least one sign or symptom that may indicate coronavirus-19. Standard/surgical mask placed on the client. Provider contacted for isolation considerations. Client reports previous positive COVID test result. Ebola Screen: Patient negative for fever greater than or equal to 101.5 degrees Fahrenheit, and additional compatible Ebola Virus Disease symptoms Patient denies exposure to infectious person. Patient denies travel to an Ebola-affected area in the 21 days before illness onset. No symptoms or risks identified at this time. Initial Sepsis Screen: Does the patient meet any 2 criteria? No. Patient's initial sepsis screen is negative. Does the patient have a suspected source of infection? No. Patient's initial sepsis screen is negative. Risk Assessment: Do you want to hurt yourself or someone else? Patient reports no desire to harm self or others. Onset of symptoms was August 06, 2020. 19:04 Method Of Arrival: Ambulatory iw 19:04 Acuity: AARON 3 iw Triage Assessment: 20:56 Respiratory: the patient has mild shortness of breath. rr5 Historical: - Allergies: 19:07 NSAIDS; iw 19:07 peanuts; iw 19:07 Sulfa (Sulfonamide Antibiotics); iw - Home Meds: 19:07 Hyzaar 100-25 mg oral tab once daily [Active]; levothyroxine 125 mcg tab once daily iw [Active]; - PMHx: 19:07 Asthma; COPD; High Cholesterol; Hypertension; Hypothyroidism; iw - PSHx: 19:07 nasal sx; heart cath; iw - Immunization history:: Adult Immunizations up to date, Flu vaccine is up to date. - Social history:: Smoking status: Patient denies any tobacco usage or history of. Screenin:00 Abuse screen: Denies threats or abuse. Denies injuries from another. Nutritional rr5 screening: No deficits noted. Tuberculosis screening: No symptoms or risk factors identified. Fall Risk None identified. Total Ta Fall Scale indicates No Risk (0-24 pts). Assessment: 20:56 General: Appears in no apparent distress. uncomfortable, Behavior is calm, cooperative, rr5 appropriate for age. Pain: Complains of pain in chest Pain radiates to right shoulder Pain currently is 6 out of 10 on a pain scale. Quality of pain is described as aching, Pain began gradually, Is intermittent. Neuro: Level of Consciousness is awake, alert, obeys commands, Oriented to person, place, time, situation. Cardiovascular: Reports chest pain, Capillary refill < 3 seconds Patient's skin is warm and dry. Respiratory: Reports shortness of breath Airway is patent Respiratory effort is even, unlabored, Respiratory pattern is regular, symmetrical. GI: No signs and/or symptoms were reported involving the gastrointestinal system. : No signs and/or symptoms were reported regarding the genitourinary system. EENT: No signs and/or symptoms were reported regarding the EENT system. Derm: Skin is intact, is healthy with good turgor, Skin is pink, warm \T\ dry. Musculoskeletal: Capillary refill < 3 seconds. 20:56 Cardiovascular: Rhythm is regular. rr5 20:56 Respiratory: rr5 21:30 Reassessment: Patient and/or family updated on plan of care and expected duration. Pain ea level reassessed. Patient is alert, oriented x 3, equal unlabored respirations, skin warm/dry/pink. 22:50 Reassessment: Patient and/or family updated on plan of care and expected duration. Pain ea level reassessed. Patient is alert, oriented x 3, equal unlabored respirations, skin warm/dry/pink. 08/13 00:00 Reassessment: Patient appears in no apparent distress at this time. Patient is alert, rr5 oriented x 3, equal unlabored respirations, skin warm/dry/pink. 01:08 Reassessment: Patient appears in no apparent distress at this time. Patient and/or rr5 family updated on plan of care and expected duration. Pain level reassessed. Patient is alert, oriented x 3, equal unlabored respirations, skin warm/dry/pink. awaiting for results. 01:25 Reassessment: able to ambulate going to restroom, maintaining oxygen saturation at rr5 96-98%. Vital Signs: 08/12 19:04 BP 161 / 78; Pulse 85; Resp 22 S; Pulse Ox 98% on R/A; Weight 63.5 kg; Height 5 ft. 7 iw in. (170.18 cm); Pain 6/10; 22:50 BP 136 / 69; Pulse 80; Resp 18; Pulse Ox 98% on R/A; ea 23:42 BP 166 / 68; Pulse 92; Resp 17; Pulse Ox 99% ; rr5 02 00:16 BP 132 / 67; Pulse 83; Resp 19; Temp 98.3; Pulse Ox 96% ; rr5 01:07 BP 127 / 65; Pulse 75; Resp 16; Pulse Ox 95% ; rr5 01:57 BP 127 / 60; Pulse 70; Resp 18; Pulse Ox 98% on R/A; rr5 08/12 19:04 Body Mass Index 21.93 (63.50 kg, 170.18 cm) iw ED Course: 08/12 18:34 Patient arrived in ED. ag5 18:34 Melvin Thao MD is Private Physician. ag5 19:06 Triage completed. iw 19:07 Arm band placed on. iw 20:47 Juno Khan MD is Attending Physician. mh7 20:50 Tye Aguilera RN is Primary Nurse. rr5 21:00 Patient has correct armband on for positive identification. Call light in reach. Pulse rr5 ox on. NIBP on. 21:20 Inserted saline lock: 20 gauge in right antecubital area, using aseptic technique. rr5 Blood collected. 21:53 XRAY Chest (1 view) In Process Unspecified. EDMS 22:56 Urine collected: clean catch specimen, clear. rr5 23:26 CT Chest For PE Angio In Process Unspecified. EDMS 08/13 01:52 Nakul Orourke MD is Referral Physician. 7 01:56 No provider procedures requiring assistance completed. IV discontinued, intact, ea bleeding controlled, No redness/swelling at site. Pressure dressing applied. Administered Medications: 08/12 21:24 Drug: Albuterol HFA Inhaler 2 puffs Route: Inhalation; rr5 23:56 Drug: NS 0.9% 1000 ml Route: IV; Rate: 1000 ml; Site: right antecubital; rr5 02/07 01:58 Follow up: Response: No adverse reaction; IV Status: Completed infusion; IV Intake: ea 1000ml Intake: 01:58 IV: 1000ml; Total: 1000ml. ea Outcome: 01:53 Discharge ordered by MD. lopez 01:58 Discharged to home ambulatory, with family. adore 01:58 Condition: stable 01:58 Discharge instructions given to patient, Instructed on discharge instructions, follow up and referral plans. medication usage, Demonstrated understanding of instructions, follow-up care, medications, Prescriptions given X 1. 01:58 Patient left the ED. ea Signatures: Dispatcher [employer] EDShira Serra RN Erin Kumar RN RN ea Roque, Raymond, RN RN rr5 Alejandra Perry [facility] Juno Khan MD MD [facility]
--- NOTE | 2020-08-13 01:53 | EDPHYS ---
Physician Documentation [facility] Name: Dolores Pérez Age: 60 yrs Sex: Female : 1960 Arrival Date: 08/12/2020 Time: 18:34 Bed 6 Private MD: Melvin Thao R ED Physician Juno Khan HPI: 08/12 22:38 This 60 yrs old Female presents to ER via Ambulatory with complaints of mh7 Breathing Difficulty, COVID+. 22:38 The patient has shortness of breath at rest, with light activity. mh7 22:39 Onset: The symptoms/episode began/occurred last night. Duration: The symptoms are mh7 intermittent, with no pattern. The patient's shortness of breath is aggravated by coughing, light activity, is alleviated by nothing. Associated signs and symptoms: Pertinent positives: chest pain, non-productive cough, Pertinent negatives: productive cough, diaphoresis, dizziness, fever, hemoptysis, loss of consciousness, nausea, numbness in extremities, visual changes, vomiting. Severity of symptoms: At their worst the symptoms were moderate last night, in the emergency department the symptoms have improved moderately. Diagnosed with COVID 19 last week and taking medications prescribed by PCP. Historical: - Allergies: 19:07 NSAIDS; iw 19:07 peanuts; iw 19:07 Sulfa (Sulfonamide Antibiotics); iw - Home Meds: 19:07 Hyzaar 100-25 mg oral tab once daily [Active]; levothyroxine 125 mcg tab once daily iw [Active]; - PMHx: 19:07 Asthma; COPD; High Cholesterol; Hypertension; Hypothyroidism; iw - PSHx: 19:07 nasal sx; heart cath; iw - Immunization history:: Adult Immunizations up to date, Flu vaccine is up to date. - Social history:: Smoking status: Patient denies any tobacco usage or history of. ROS: 22:39 Constitutional: Negative for fever, chills, and weight loss, Eyes: Negative for injury, mh7 pain, redness, and discharge, ENT: Negative for injury, pain, and discharge, Neck: Negative for injury, pain, and swelling, Abdomen/GI: Negative for abdominal pain, nausea, vomiting, diarrhea, and constipation, Back: Negative for injury and pain, : Negative for injury, bleeding, discharge, and swelling, MS/Extremity: Negative for injury and deformity, Skin: Negative for injury, rash, and discoloration, Neuro: Negative for headache, weakness, numbness, tingling, and seizure, Psych: Negative for depression, anxiety, suicide ideation, homicidal ideation, and hallucinations, Allergy/Immunology: Negative for hives, rash, and allergies, Endocrine: Negative for neck swelling, polydipsia, polyuria, polyphagia, and marked weight changes, Hematologic/Lymphatic: Negative for swollen nodes, abnormal bleeding, and unusual bruising. Exam: 22:39 Constitutional: This is a well developed, well nourished patient who is awake, alert, mh7 and in no acute distress. Head/Face: Normocephalic, atraumatic. Eyes: Pupils equal round and reactive to light, extra-ocular motions intact. Lids and lashes normal. Conjunctiva and sclera are non-icteric and not injected. Cornea within normal limits. Periorbital areas with no swelling, redness, or edema. Neck: Trachea midline, no thyromegaly or masses palpated, and no cervical lymphadenopathy. Supple, full range of motion without nuchal rigidity, or vertebral point tenderness. No Meningismus. 22:39 Cardiovascular: Regular rate and rhythm with a normal S1 and S2. No gallops, murmurs, or rubs. Normal PMI, no JVD. No pulse deficits. Respiratory: Lungs have equal breath sounds bilaterally, clear to auscultation and percussion. No rales, rhonchi or wheezes noted. No increased work of breathing, no retractions or nasal flaring. Abdomen/GI: Soft, non-tender, with normal bowel sounds. No distension or tympany. No guarding or rebound. No evidence of tenderness throughout. Back: No spinal tenderness. No costovertebral tenderness. Full range of motion. Skin: Warm, dry with normal turgor. Normal color with no rashes, no lesions, and no evidence of cellulitis. MS/ Extremity: Pulses equal, no cyanosis. Neurovascular intact. Full, normal range of motion. Neuro: Awake and alert, GCS 15, oriented to person, place, time, and situation. Cranial nerves II-XII grossly intact. Motor strength 5/5 in all extremities. Sensory grossly intact. Cerebellar exam normal. Normal gait. Psych: Awake, alert, with orientation to person, place and time. Behavior, mood, and affect are within normal limits. 22:39 Chest/axilla: Inspection: normal, Palpation: tenderness, that is moderate, of the anterior aspect of right upper chest, that totally reproduces the patient's complaints, Axilla: are normal, Lymph nodes: lymphadenopathy is not appreciated. Vital Signs: 19:04 BP 161 / 78; Pulse 85; Resp 22 S; Pulse Ox 98% on R/A; Weight 63.5 kg; Height 5 ft. 7 iw in. (170.18 cm); Pain 6/10; 22:50 BP 136 / 69; Pulse 80; Resp 18; Pulse Ox 98% on R/A; ea 23:42 BP 166 / 68; Pulse 92; Resp 17; Pulse Ox 99% ; rr5 07 00:16 BP 132 / 67; Pulse 83; Resp 19; Temp 98.3; Pulse Ox 96% ; rr5 01:07 BP 127 / 65; Pulse 75; Resp 16; Pulse Ox 95% ; rr5 01:57 BP 127 / 60; Pulse 70; Resp 18; Pulse Ox 98% on R/A; rr5 0206 19:04 Body Mass Index 21.93 (63.50 kg, 170.18 cm) iw MDM: 01:50 Differential diagnosis: Anemia Anxiety Reaction asthma, Bronchitis CHF exacerbation, mh7 Chronic Obstructive Pulmonary Disease Myocardial Infarction pneumonia, Pneumothorax Psychogenic pulmonary edema, Pulmonary Embolism reactive airway disease. Data reviewed: vital signs, nurses notes, old medical records, lab test result(s), cardiac enzymes, CBC, electrolytes, urinalysis, EKG, radiologic studies, CT scan, plain films. Data interpreted: Pulse oximetry: on room air is 98 %. Interpretation: normal. Counseling: I had a detailed discussion with the patient and/or guardian regarding: the historical points, exam findings, and any diagnostic results supporting the discharge/admit diagnosis, lab results, radiology results, the need for outpatient follow up, to return to the emergency department if symptoms worsen or persist or if there are any questions or concerns that arise at home. Response to treatment: the patient's symptoms have resolved after treatment, the patient's blood pressure is in an acceptable range, mental status has returned to baseline, the patient no longer shows bradycardia, the patient is not short of breath, the patient is not tachycardic, the patient's pain is gone, the patient's temperature has normalized. 01:53 Patient medically screened. [facility] 08/12 21:08 Order name: Basic Metabolic Panel [facility] 08/12 21:08 Order name: CBC with Diff [facility] 08/12 21:08 Order name: LFT's; Complete Time: 22:29 [facility] 08/12 21:08 Order name: Magnesium; Complete Time: 22:29 [facility] 08/12 21:08 Order name: NT PRO-BNP; Complete Time: 22:29 [facility] 08/12 21:08 Order name: PT-INR; Complete Time: 22:29 [facility] 08/12 21:08 Order name: Troponin (emerg Dept Use Only); Complete Time: 22:29 [facility] 08/12 21:08 Order name: XRAY Chest (1 view) [facility] 08/12 21:09 Order name: Basic Metabolic Panel; Complete Time: 22:29 [facility] 08/12 21:09 Order name: CBC with Automated Diff; Complete Time: 22:29 [facility] 08/12 22:35 Order name: CT Chest For PE Angio [facility] 08/12 22:58 Order name: Urine Dipstick--Ancillary (enter results); Complete Time: 23:14 [facility] 08/13 01:47 Order name: Glucose, Ancillary Testing [facility] 08/12 21:08 Order name: EKG; Complete Time: 21:10 [facility] 08/12 21:08 Order name: Cardiac monitoring; Complete Time: 21:16 [facility] 08/12 21:08 Order name: EKG - Nurse/Tech; Complete Time: 21:16 [facility] 08/12 21:08 Order name: IV Saline Lock; Complete Time: 21:16 [facility] 08/12 21:08 Order name: Labs collected and sent; Complete Time: 21:16 [facility] 08/12 21:08 Order name: O2 Per Protocol; Complete Time: 21:16 [facility] 08/12 21:08 Order name: O2 Sat Monitoring; Complete Time: 21:16 [facility] 08/12 22:34 Order name: Urine Dipstick-Ancillary (obtain specimen); Complete Time: 22:56 mh7 Administered Medications: 08/12 21:24 Drug: Albuterol HFA Inhaler 2 puffs Route: Inhalation; rr5 23:56 Drug: NS 0.9% 1000 ml Route: IV; Rate: 1000 ml; Site: right antecubital; rr5 08/13 01:58 Follow up: Response: No adverse reaction; IV Status: Completed infusion; IV Intake: ea 1000ml Disposition: 08/13/20 01:53 Discharged to Home. Impression: COVID Pneumonia. - Condition is Stable. - Discharge Instructions: Viral Respiratory Infection, [id number], COVID-19. - Prescriptions for Tessalon Perles 100 mg Oral Capsule - take 1 capsule by ORAL route every 8 hours As needed; 15 capsule. - Medication Reconciliation Form, Thank You Letter, Antibiotic Education, Prescription Opioid Use form. - Follow up: Private Physician; When: 1 - 2 days; Reason: Worsening of condition, Recheck today's complaints, Continuance of care, Re-evaluation by your physician. Follow up: Nakul Orourke MD; When: 1 - 2 days; Reason: Worsening of condition, Recheck today's complaints. - Problem is an ongoing problem. - Symptoms have improved. Signatures: Dispatcher [employer] EDShira Serra RN RN Erin Silveira RN RN ea Roque, Raymond, RN RN rr5 Juno Khan MD MD mh7 Corrections: (The following items were deleted from the chart) 01:58 01:53 08/13/2020 01:53 Discharged to Home. Impression: COVID Pneumonia. Condition is ea Stable. Forms are Medication Reconciliation Form, Thank You Letter, Antibiotic Education, Prescription Opioid Use. Follow up: Private Physician; When: 1 - 2 days; Reason: Worsening of condition, Recheck today's complaints, Continuance of care, Re-evaluation by your physician. Follow up: Nakul Orourke; When: 1 - 2 days; Reason: Worsening of condition, Recheck today's complaints. Problem is an ongoing problem. Symptoms have improved. mh7
[2020-08-13 02:26] VITALS: TEMP 98.3
[2020-08-13 02:28] VITALS: BP 127/60; O2SAT 98
--- NOTE | 2020-08-13 12:30 | RAD REPORT ---
EXAM DESCRIPTION: RAD - Chest Single View - 08/12/2020 9:53 pm CLINICAL HISTORY: SOB Chest pain. COMPARISON: Chest Single View dated 08/06/2020; Chest Pa And Lat (2 Views) dated 04/02/2020; Chest Sin gle View dated 03/30/2020; Chest Single View dated 11/05/2019 FINDINGS: Portable technique limits examination quality. The lungs are grossly clear. The heart is normal in size. No displaced fractures. IMPRESSION: No acute intrathoracic process suspected.
--- NOTE | 2020-08-14 11:50 | RAD REPORT ---
EXAM DESCRIPTION: CT Angiography Chest With Intravenous Contrast CLINICAL HISTORY: The patient is 60 years old and is Female; SOB TECHNIQUE: Axial computed tomographic angiography images of the chest with intravenous contrast. T his CT exam was performed using one or more of the following dose reduction techniques: automated e xposure control, adjustment of the mA and/or kV according to patient size, and/or use of iterative re construction technique. MIP reconstructed images were created and reviewed. Oblique reformatted images were created and reviewed. DLP: 270 mGy*cm COMPARISON: Chest radiograph of the same day. FINDINGS: PULMONARY ARTERIES: Unremarkable. No pulmonary embolism. AORTA: No acute findings. No thoracic aortic aneurysm. LUNGS: Scattered bilateral ground glass opacities involving predominantly the left upper lobe ling jg. PLEURAL SPACE: Unremarkable. No significant effusion. No pneumothorax. HEART: Unremarkable. No cardiomegaly. No significant pericardial effusion. No evidence of RV dysfunction. MEDIASTINUM: Moderate-sized hiatal hernia. BONES/JOINTS: Osteopenia. No acute fracture. No dislocation. SOFT TISSUES: Unremarkable. LYMPH NODES: Unremarkable. No enlarged lymph nodes. LIVER: Hepatic steatosis. IMPRESSION: 1. No pulmonary embolism. 2. Imaging features can be seen with COVID-19 pneumonia, though are nonspecific and can occur with a variety of infectious and noninfectious processes. PneInd 3. Moderate-sized hiatal hernia. 4. Hepatic steatosis. Electronically signed by: Ilia Mcclure DO 08/12/2020 11:32 PM [employer] Due to temporary technical issues with the PACS/Fluency reporting system, reports are being signed by the in house radiologist without review as a courtesy to ensure prompt reporting. The interpreting r adiologist is fully responsible for the content of the report.
== END 2020-08-13 01:58 | disposition home or self-care (01) ==
LOC: ER 18:33
DX: U07.1 COVID-19 (principal); J12.82 Pneumonia due to coronavirus disease 2019; I10 Essential (primary) hypertension; E03.9 Hypothyroidism, unspecified; E78.00 Pure hypercholesterolemia, unspecified; J44.9 Chronic obstructive pulmonary disease, unspecified; Z88.2 Allergy status to sulfonamides; Z88.6 Allergy status to analgesic agent; Z91.010 Allergy to peanuts
CPT/HCPCS: 96361; 93005; 85025; 80048; 36415; 83735; 85610; 82947; 80076; 81003; 84484; 83880; 71275; 71045; 96360; 99284; Q9967; J7030

== ENCOUNTER 2020-08-14 15:10 | Emergency (ER) | payer OTHER ==
--- NOTE | 2020-08-14 17:58 | RAD REPORT ---
EXAM DESCRIPTION: RAD - Chest Pa And Lat (2 Views) - 08/14/2020 5:32 pm CLINICAL HISTORY: SOB, COVID positive August 06, fever, cough, chest pain COMPARISON: Single-view chest August 12, CT chest August 12 TECHNIQUE: Frontal and lateral views of the chest were obtained. FINDINGS: The lungs are normal volume. Minimal infiltrative changes in the mid left lung field are p resent matching the CT study. No progressive lung parenchymal process. Heart size is normal and iva tral vasculature is within normal limits. No pleural effusion or pneumothorax seen. No acute bony f inding noted. No aortic abnormality. IMPRESSION: Minimal pneumonia changes are present showing no progression from August 12 CT chest.
[2020-08-14] MEDS ORDERED: Magnesium Sulfate 2gm IVPB 2 G/50 ML BAG IV ONE (20:00)
[2020-08-14] MEDS ORDERED: dexAMETHasone 10 MG/ML VIAL ONE (20:00)
[2020-08-14] MEDS ORDERED: LEVALBUTEROL 1.25 MG/3 ML NEB ONE (20:00)
[2020-08-14 20:09] LABS: Absolute Lymphocytes (CBC) 1.5 K/uL (0.7-4.9); Basophils % 0.1 % (0-1.3); Hematocrit 39.3 % (36.0-45.0); Lymphocytes % 22.9 % (15.3-44.8); MPV 9.1 fL (7.6-11.3)
[2020-08-14 20:40] LABS: Albumin 4.1 g/dL (3.4-5.0); Bilirubin Total 0.3 mg/dL (0.2-1.0); C-Reactive Protein 31.9 mg/L (<3.00); Potassium 3.3 mmol/L (3.5-5.1); Protein, Total 8.2 g/dL (6.4-8.2)
--- NOTE | 2020-08-14 20:54 | EDPHYS ---
Physician Documentation [facility] Name: Dolores Pérez Age: 60 yrs Sex: Female : 1960 Arrival Date: 08/14/2020 Time: 15:12 Bed 26 Private MD: ED Physician Danyell Nascimento HPI: 08/14 19:16 This 60 yrs old Female presents to ER via Ambulatory with complaints of Covid jmm + Pneumonia. 19:16 The patient or guardian reports cough. Onset: The symptoms/episode began/occurred jmm gradually, 8 day(s) ago. Modifying factors: The symptoms are alleviated by nothing. the symptoms are aggravated by nothing. Associated signs and symptoms: Pertinent positives:. This is a 60 year old female with a history of COPD, HLP, HTN that presents to the ED with complaints of ongoing shortness of breath and cough. This is her 3rd ER visit. Symptoms began 8 days ago. . Historical: - Allergies: 15:37 NSAIDS; sv 15:37 peanuts; sv 15:37 Sulfa (Sulfonamide Antibiotics); sv - PMHx: 15:37 Asthma; COPD; High Cholesterol; Hypertension; Hypothyroidism; sv - PSHx: 15:37 nasal sx; heart cath; sv - Immunization history:: Adult Immunizations up to date. - Social history:: Smoking status: Patient denies any tobacco usage or history of. ROS: 19:16 Constitutional: Positive for body aches, chills. jmm 19:16 Respiratory: Positive for cough, shortness of breath. 19:16 All other systems are negative. Exam: 19:16 Constitutional: This is a well developed, well nourished patient who is awake, alert, jmm and in no acute distress. Head/Face: atraumatic. Eyes: EOMI, no conjunctival erythema appreciated ENT: Moist Mucus Membranes Neck: Trachea midline, Supple Chest/axilla: Normal chest wall appearance and motion. Cardiovascular: Regular rate and rhythm. No edema appreciated Respiratory: Normal respirations, no respiratory distress appreciated Abdomen/GI: Non distended, soft Back: Normal ROM Skin: General appearance color normal MS/ Extremity: Moves all extremities, no obvious deformities appreciated, no edema noted to the lower extremities Neuro: Awake and alert, normal gait Psych: Behavior is normal, Mood is normal, Patient is cooperative and pleasant Vital Signs: 15:37 BP 156 / 75; Pulse 86; Resp 20; Temp 98.7(TE); Pulse Ox 100% on R/A; Weight 63.5 kg; sv Height 5 ft. 7 in. (170.18 cm); Pain 5/10; 20:45 BP 152 / 63; Pulse 96; Resp 19; Temp 99.3(O); Pulse Ox 97% on R/A; Pain 0/10; fu 15:37 Body Mass Index 21.93 (63.50 kg, 170.18 cm) sv MDM: 19:23 Patient medically screened. [facility] 20:51 Data reviewed: vital signs, nurses notes. Counseling: I had a detailed discussion with [facility] the patient and/or guardian regarding: the historical points, exam findings, and any diagnostic results supporting the discharge/admit diagnosis, lab results, radiology results, the need for outpatient follow up, to return to the emergency department if symptoms worsen or persist or if there are any questions or concerns that arise at home. ED course: Patient is alert and non toxic in appearance in the ED. Not hypoxic. Advised to follow up with pcp and otherwise given strict return precautions. . 08/14 19:24 Order name: CBC with Diff; Complete Time: 20:15 [facility] 08/14 19:24 Order name: CMP; Complete Time: 20:43 [facility] 08/14 16:34 Order name: Chest Pa And Lat (2 Views) XRAY; Complete Time: 19:16 08/14 19:24 Order name: CRP; Complete Time: 20:43 [facility] 08/14 19:25 Order name: D-Dimer; Complete Time: 20:43 [facility] 08/14 19:33 Order name: Misc. Order: ambulate o2; Complete Time: 21:02 [facility] Administered Medications: 19:20 Drug: Magnesium Sulfate 2 grams Route: IVPB; Infused Over: 2 hrs; Site: left ll2 antecubital; 20:10 Drug: Decadron - Dexamethasone 10 mg Route: IVP; Site: left antecubital; fu 20:15 Drug: Xopenex (3) 1.25 mg Route: Inhalation; fu 20:26 Not Given (Physician Discretion): Ivermectin 18 mg PO once ll2 21:10 Not Given (Duplicate Order): Magnesium Sulfate 1 grams IVPB once over 1 hrs ll2 21:10 Drug: XANax Tablet 0.5 mg Route: PO; ll2 Disposition: 08/14/20 20:53 Discharged to Home. Impression: Coronavirus infection, unspecified. - Condition is Stable. - Discharge Instructions: COVID-19. - Prescriptions for ivermectin 3 mg Oral tablet - take 6 tablet by ORAL route as directed Take a dose on day one and on day 3; 12 tablet. Xanax 0.5 mg Oral Tablet - take 1 tablet by ORAL route every 8 hours As needed; 10 tablet. - Medication Reconciliation Form, Thank You Letter, Antibiotic Education, Prescription Opioid Use form. - Follow up: Private Physician; When: 2 - 3 days; Reason: Recheck today's complaints, Continuance of care, Re-evaluation by your physician. Addendum: 08/16/2020 06:56 Co-signature as Attending Physician, Danyell Nascimento MD. m a2 Signatures: Dispatcher [employer] Erica Caal RN Anuj Marie PA PA jmm Umadhay, Felix, RN RN fu Alzahri, Mohammad, MD MD il2 Ingris Jarrell RN RN ll2 Corrections: (The following items were deleted from the chart) 08/14 21:03 20:53 08/14/2020 20:53 Discharged to Home. Impression: Coronavirus infection, ll2 unspecified. Condition is Stable. Forms are Medication Reconciliation Form, Thank You Letter, Antibiotic Education, Prescription Opioid Use. Follow up: Private Physician; When: 2 - 3 days; Reason: Recheck today's complaints, Continuance of care, Re-evaluation by your physician. [facility] 21:08 21:03 08/14/2020 20:53 Discharged to Home. Impression: Coronavirus infection, ll2 unspecified. Condition is Stable. Discharge Instructions: COVID-19. Prescriptions for ivermectin 3 mg Oral tablet - take 6 tablet by ORAL route as directed Take a dose on day one and on day 3; 12 tablet. and Forms are Medication Reconciliation Form, Thank You Letter, Antibiotic Education, Prescription Opioid Use. Follow up: Private Physician; When: 2 - 3 days; Reason: Recheck today's complaints, Continuance of care, Re-evaluation by your physician. ll2 21:20 21:08 08/14/2020 20:53 Discharged to Home. Impression: Coronavirus infection, ll2 unspecified. Condition is Stable. Discharge Instructions: COVID-19. Prescriptions for ivermectin 3 mg Oral tablet - take 6 tablet by ORAL route as directed Take a dose on day one and on day 3; 12 tablet. and Forms are Medication Reconciliation Form, Thank You Letter, Antibiotic Education, Prescription Opioid Use. Follow up: Private Physician; When: 2 - 3 days; Reason: Recheck today's complaints, Continuance of care, Re-evaluation by your physician. ll2
--- NOTE | 2020-08-14 20:54 | ER ---
Nurse's Notes [facility] Name: Dolores Pérez Age: 60 yrs Sex: Female : 1960 Arrival Date: 08/14/2020 Time: 15:12 Bed 26 Private MD: Diagnosis: Coronavirus infection, unspecified Presentation: 08/14 15:34 Chief complaint: Patient states: dx with COVID+ 08/06/20. Dr Thao sent her here to get sv admitted. c/o fever Tmax 100, cough, chest pain with cough since before Friday. Tylenol taken today at 1200/1300. Pt has been seen here 3 times since being diagnosed. Coronavirus screen: Client denies travel out of the [place] in the last 14 days. Client presents with at least one sign or symptom that may indicate coronavirus-19. Standard/surgical mask placed on the client. Provider contacted for isolation considerations. Client reports previous positive COVID test result. Ebola Screen: No symptoms or risks identified at this time. Risk Assessment: Do you want to hurt yourself or someone else? Patient reports no desire to harm self or others. Onset of symptoms was August 06, 2020. 15:34 Method Of Arrival: Ambulatory sv 15:34 Acuity: AARON 3 sv 15:37 Initial Sepsis Screen: Does the patient meet any 2 criteria? No. Patient's initial sv sepsis screen is negative. Does the patient have a suspected source of infection? No. Patient's initial sepsis screen is negative. Triage Assessment: 15:34 General: Appears in no apparent distress. comfortable, Behavior is calm, cooperative, sv appropriate for age. Pain: Complains of pain in chest Pain currently is 5 out of 10 on a pain scale. Aggravated by only with coughing. Neuro: Level of Consciousness is awake, alert, obeys commands, Oriented to person, place, time, situation, Gait is steady. Respiratory: Respiratory effort is even, unlabored. Historical: - Allergies: 15:37 NSAIDS; sv 15:37 peanuts; sv 15:37 Sulfa (Sulfonamide Antibiotics); sv - PMHx: 15:37 Asthma; COPD; High Cholesterol; Hypertension; Hypothyroidism; sv - PSHx: 15:37 nasal sx; heart cath; sv - Immunization history:: Adult Immunizations up to date. - Social history:: Smoking status: Patient denies any tobacco usage or history of. Screenin:20 Abuse screen: Denies threats or abuse. Nutritional screening: No deficits noted. ll2 Tuberculosis screening: No symptoms or risk factors identified. Fall Risk None identified. Assessment: 16:34 Reassessment: Received VO from Dr Etienne for CXR. ss 19:10 General: Appears in no apparent distress. Behavior is calm, cooperative, appropriate ll2 for age. Pain: Denies pain. Neuro: Level of Consciousness is awake, alert, obeys commands, Oriented to person, place, time, situation. Cardiovascular: Patient's skin is warm and dry. Respiratory: Airway is patent Respiratory effort is even, unlabored, Respiratory pattern is regular, symmetrical. 20:50 Reassessment: Patient and/or family updated on plan of care and expected duration. Pain ll2 level reassessed. Patient is alert, oriented x 3, equal unlabored respirations, skin warm/dry/pink. Vital Signs: 15:37 BP 156 / 75; Pulse 86; Resp 20; Temp 98.7(TE); Pulse Ox 100% on R/A; Weight 63.5 kg; sv Height 5 ft. 7 in. (170.18 cm); Pain 5/10; 20:45 BP 152 / 63; Pulse 96; Resp 19; Temp 99.3(O); Pulse Ox 97% on R/A; Pain 0/10; fu 15:37 Body Mass Index 21.93 (63.50 kg, 170.18 cm) sv ED Course: 15:12 Patient arrived in ED. ds1 15:34 Arm band placed on. sv 15:36 Triage completed. sv 17:31 Chest Pa And Lat (2 Views) XRAY In Process Unspecified. EDMS 19:11 Anuj Fernandez PA is PHCP. jmm 19:11 Danyell Nascimento MD is Attending Physician. jmm 19:20 Patient has correct armband on for positive identification. Bed in low position. Call ll2 light in reach. Side rails up X 1. Pulse ox on. NIBP on. 19:20 No provider procedures requiring assistance completed. ll2 20:00 Inserted saline lock: 22 gauge in left antecubital area, using aseptic technique. Blood fu collected. 20:01 CRP Sent. fu 20:01 CMP Sent. fu 20:01 CBC with Diff Sent. fu 20:01 D-Dimer Sent. fu 20:42 Ingris Jarrell, RN is Primary Nurse. ll2 21:07 IV discontinued, intact, bleeding controlled, No redness/swelling at site. Pressure ll2 dressing applied. Administered Medications: 19:20 Drug: Magnesium Sulfate 2 grams Route: IVPB; Infused Over: 2 hrs; Site: left ll2 antecubital; 20:10 Drug: Decadron - Dexamethasone 10 mg Route: IVP; Site: left antecubital; fu 20:15 Drug: Xopenex (3) 1.25 mg Route: Inhalation; fu 20:26 Not Given (Physician Discretion): Ivermectin 18 mg PO once ll2 21:10 Not Given (Duplicate Order): Magnesium Sulfate 1 grams IVPB once over 1 hrs ll2 21:10 Drug: XANax Tablet 0.5 mg Route: PO; ll2 Outcome: 20:53 Discharge ordered by . citlali 21:03 Patient left the ED. ll2 21:07 Discharged to home ambulatory. ll2 21:07 Condition: stable 21:07 Discharge instructions given to patient, Instructed on discharge instructions, follow up and referral plans. medication usage, Demonstrated understanding of instructions, follow-up care, medications, Prescriptions given X 1. 21:08 Patient left the ED. ll2 21:20 Patient left the ED. ll2 Signatures: Dispatcher [employer] EDMS Erica Dewitt RN RN Anuj Fernandez PA PA jmm Sanford, Demi ds1 Adelia Sarah RN RN Bubba Reyna RN RN Ingris Jarrell, RN RN ll2 Corrections: (The following items were deleted from the chart) 15:39 15:34 Chief complaint: Patient states: dx with COVID+ 08/06/20. Dr Thao sent her here sv to get admitted. c/o fever Tmax 100, cough, chest pain with cough since before Friday. Tylenol taken today at 1200/1300. sv 21:05 20:15 Magnesium Sulfate 1 grams IVPB in left antecubital over 1 hrs fu ll2
[2020-08-14] MEDS ORDERED: ALPRAZOLAM 0.5 MG TABLET ONE (21:28)
[2020-08-14 21:56] VITALS: BP 152/63; TEMP 99.3; O2SAT 97
[2020-08-15] MEDS ORDERED: KETOROLAC 30 MG/ML INJ ONE (20:09)
[2020-08-15] MEDS ORDERED: ALBUTEROL INHALER 60 PUFF/8 GM IH ONE (20:09)
[2020-08-15] MEDS ORDERED: NA CHLORIDE 0.9% 1,000 ML ONE (20:09)
[2020-08-15] MEDS ORDERED: LORazepam 2 MG/ML VIAL ONE (20:09)
--- OUTSIDE RECORDS SUMMARY | 2020-08-16 01:34 | XMS REPORT | Continuity of Care Document ---
:1960 Author Organization [facility] t Address [address] [place] [address] Care Team Providers Name Role Phone Ada [...] Facility Department ID 2019-07-27 2019-07-27 Emergency Shannon [facility] [id number] 18:07:12 20:13:00 Mariangel Grace [id number] [place] [id number] [place] [phone] [id number] 2019-07-27 2019-07-27 Orders Doctor LING [id number] 00:00:00 00:00:00 Only Unassigned, KIRK [id number] [place] [facility] [id number] 2019-03-11 2019-03-11 Emergency STALIN Connor [id number] 14:05:54 16:45:00 Cristobal Grace [id number] [place] [id number] [place] [address] [phone] [id number] Results This patient has no known results.
== END 2020-08-14 21:20 | disposition home or self-care (01) ==
LOC: ER 15:10
DX: U07.1 COVID-19 (principal); J12.82 Pneumonia due to coronavirus disease 2019; J44.0 Chronic obstructive pulmonary disease with (acute) lower respiratory infection; E78.00 Pure hypercholesterolemia, unspecified; E03.9 Hypothyroidism, unspecified; I10 Essential (primary) hypertension
CPT/HCPCS: 85025; 36415; 85379; 80053; 86140; 71046; 96375; 96374; 99284; J1100; J3475

== ENCOUNTER 2020-08-15 15:08 | Emergency (ER) | payer OTHER ==
[2020-08-15 20:35] LABS: Absolute Lymphocytes (CBC) 1.5 K/uL (0.7-4.9); Hematocrit 37.4 % (36.0-45.0); Lymphocytes % 21.1 % (15.3-44.8); MPV 9.5 fL (7.6-11.3); RBC Red Blood Cell Count 4.19 M/uL (3.86-4.86)
[2020-08-15 20:43] LABS: ALT/SGPT 24 U/L (12-78); AST/SGOT 16 U/L (15-37); Albumin 3.9 g/dL (3.4-5.0); Alkaline Phosphatase 99 U/L (45-117); BUN Blood Urea Nitrogen 12 mg/dL (7-18); Bicarbonate 24 mmol/L (21-32); Bilirubin Direct < 0.1 mg/dL (0-0.2); Bilirubin Total 0.4 mg/dL (0.2-1.0); Glucose Level 326 mg/dL (74-106); Magnesium 2.2 mg/dL (1.8-2.4); NT PRO-BNP 92 pg/mL (<125); Potassium 3.3 mmol/L (3.5-5.1); Protein, Total 7.9 g/dL (6.4-8.2); Protime INR 0.91; Sodium Level 136 mmol/L (136-145); Troponin (Emerg Dept Use Only) < 0.02 ng/mL (0.0-0.045)
[2020-08-15 21:51] LABS: Barbiturates NEGATIVE (NEGATIVE); Benzodiazepines NEGATIVE (NEGATIVE); Cocaine NEGATIVE (NEGATIVE); METHAMPHETAM NEGATIVE (NEGATIVE); Methadone NEGATIVE (NEGATIVE); Opiates NEGATIVE (NEGATIVE); Phencyclidine NEGATIVE (NEGATIVE); THC Cannibis NEGATIVE (NEGATIVE)
[2020-08-15 21:53] LABS: Urine Blood TRACE (NEG); Urine Glucose 2+ (NEG); Urine Protein NEGATIVE (NEG); Urine Specific Gravity 1.015 (1.005-1.030); Urine pH 6.5 (5.0-7.0)
--- NOTE | 2020-08-15 22:56 | ER ---
Nurse's Notes [facility] Name: Dolores Pérez Age: 60 yrs Sex: Female : 1960 Arrival Date: 08/15/2020 Time: 15:10 Bed 6 Private MD: Melvin Thao R Diagnosis: Coronavirus infection, unspecified Presentation: 08/15 15:17 Chief complaint: Patient states: Here for re-check of covid pneumonia, here last night. ll1 Still didn't meet criteria for admission, very upset about not being admitted. Fever 99.6 at home. Coronavirus screen: Client denies travel out of the [place] in the last 14 days. congestion, cough unrelated to allergies, Client presents with at least one sign or symptom that may indicate coronavirus-19. Standard/surgical mask placed on the client. Ebola Screen: Patient denies travel to an Ebola-affected area in the 21 days before illness onset. Initial Sepsis Screen: Does the patient meet any 2 criteria? No. Patient's initial sepsis screen is negative. Does the patient have a suspected source of infection? Yes: Productive cough/pneumonia. Onset of symptoms was August 15, 2020. 15:17 Method Of Arrival: Ambulatory ll1 15:17 Acuity: AARON 2 jb4 Historical: - Allergies: 15:29 Sulfa (Sulfonamide Antibiotics); ll1 15:29 peanuts; ll1 15:29 NSAIDS; ll1 - PMHx: 15:29 Asthma; High Cholesterol; Hypertension; Hypothyroidism; COPD; ll1 - PSHx: 15:29 nasal sx; heart cath; ll1 - Immunization history:: Flu vaccine is up to date. - Social history:: Smoking status: unknown Patient/guardian denies using alcohol, street drugs, The patient lives with family. - Family history:: not pertinent. Screenin:28 Abuse screen: Denies threats or abuse. Nutritional screening: No deficits noted. jb4 Tuberculosis screening: No symptoms or risk factors identified. Fall Risk None identified. Assessment: 19:28 General: Appears in no apparent distress. comfortable, Behavior is calm, cooperative, jb4 appropriate for age. Pain: Complains of pain in headache Pain does not radiate. Pain currently is 8 out of 10 on a pain scale. Neuro: Level of Consciousness is awake, alert, obeys commands, Oriented to person, place, time, situation. Cardiovascular: Patient's skin is warm and dry. Respiratory: Airway is patent Respiratory effort is even, unlabored, Respiratory pattern is regular, symmetrical. GI: No signs and/or symptoms were reported involving the gastrointestinal system. : No signs and/or symptoms were reported regarding the genitourinary system. EENT: No signs and/or symptoms were reported regarding the EENT system. Derm: Skin is intact, Skin is pink, warm \\T\\ dry. Musculoskeletal: Circulation, motion, and sensation intact. Range of motion: intact in all extremities. 20:00 Reassessment: PT reports suicidal ideations. PT states " I just can't take it any more. jb4 I feel like I should just kill myself. I can't get away from all this stress. My is telling me I am crazy. I just can't do it anymore. I want to just shoot myself and at this point either he or I have to go." Provider notified of patients, SI precautions initiated. 20:53 Reassessment: Patient appears in no apparent distress at this time. Patient and/or jb4 family updated on plan of care and expected duration. Pain level reassessed. Patient is alert, oriented x 3, equal unlabored respirations, skin warm/dry/pink. 21:30 Reassessment: Patient appears in no apparent distress at this time. Patient and/or jb4 family updated on plan of care and expected duration. Pain level reassessed. Patient is alert, oriented x 3, equal unlabored respirations, skin warm/dry/pink. 08/16 00:30 Reassessment: Patient appears in no apparent distress at this time. Patient and/or jb4 family updated on plan of care and expected duration. Pain level reassessed. Patient is alert, oriented x 3, equal unlabored respirations, skin warm/dry/pink. 01:00 Reassessment: a fax has been received with [facility] recommendations post consult with sg patient per Dr.Alzahri Misty notified of outcome, a copy of recommendations has been placed on the chart at this time. 01:06 Reassessment: Patient appears in no apparent distress at this time. Patient and/or jb4 family updated on plan of care and expected duration. Pain level reassessed. Patient is alert, oriented x 3, equal unlabored respirations, skin warm/dry/pink. Vital Signs: 08/15 15:17 BP 169 / 98; Pulse 89; Resp 17; Temp 98.0; Pulse Ox 98% ; Weight 63.5 kg; Height 5 ft. ll1 7 in. (170.18 cm); Pain 8/10; 20:30 BP 159 / 87; Pulse 76; Resp 16; Pulse Ox 99% on R/A; jb4 21:30 BP 150 / 72; Pulse 79; Resp 16; Pulse Ox 99% on R/A; jb4 22:15 BP 141 / 72; Pulse 75; Resp 18; Pulse Ox 100% on R/A; jb4 08/16 01:06 BP 125 / 95; Pulse 78; Resp 17; Pulse Ox 99% on R/A; jb4 08/15 15:17 Body Mass Index 21.93 (63.50 kg, 170.18 cm) ll1 ED Course: 08/15 15:10 Patient arrived in ED. as 15:10 Melvin Thao MD is Private Physician. as 15:25 Triage completed. ll1 15:29 Arm band placed on. ll1 19:15 Nishant Gibbs RN is Primary Nurse. jb4 19:21 Danyell Nascimento MD is Attending Physician. ma2 19:27 Patient has correct armband on for positive identification. Bed in low position. Call ea light in reach. 20:22 XRAY Chest (1 view) In Process Unspecified. EDMS 20:30 Initial lab(s) drawn, by me, sent to lab. Inserted saline lock: 18 gauge in right jb4 antecubital area, using aseptic technique. Blood collected. 22:44 called [facility] Crisis line at [phone] spoke to Elizabeth to have a screener mw2 evaluate patient. 08/16 01:06 No provider procedures requiring assistance completed. IV discontinued, intact, jb4 bleeding controlled, No redness/swelling at site. Pressure dressing applied. Administered Medications: 08/15 20:05 Drug: Ativan 0.5 mg Route: IVP; Site: right antecubital; jb4 20:30 Follow up: Response: No adverse reaction; Anxiety decreased jb4 20:06 Drug: TORadol 30 mg Route: IVP; Site: right antecubital; jb4 20:57 Follow up: Response: No adverse reaction; Pain is decreased jb4 20:07 Drug: NS 0.9% 1000 ml Route: IV; Rate: 1 bolus; Site: right antecubital; jb4 21:00 Follow up: Response: No adverse reaction; IV Status: Completed infusion; IV Intake: jb4 1000ml 20:10 Drug: Albuterol HFA Inhaler 2 puffs Route: Inhalation; jb4 20:58 Follow up: Response: No adverse reaction jb4 Intake: 21:00 IV: 1000ml; Total: 1000ml. jb4 Outcome: 22:56 ER care complete, transfer ordered by . [email or web address] 02 00:33 Discharge ordered by . santiago 01:06 Discharged to home ambulatory. jb4 01:06 Condition: stable 01:06 Discharge instructions given to patient, Instructed on discharge instructions, follow up and referral plans. Demonstrated understanding of instructions, follow-up care. 01:09 Patient left the ED. jb4 Signatures: Dispatcher [employer] EDMS Jasper Moon RN RN sg Martinez, Amelia as Bryson, James, RN RN jb4 Erin Silveira RN RN ea Alzahri, Mohammad, MD MD ma2 [place], MyKena 2 Prabha Hummel RN RN ll1 Corrections: (The following items were deleted from the chart) 08/15 15:30 15:17 Risk Assessment: Do you want to hurt yourself or someone else? Patient reports ll1 desire/thoughts of hurting themselves or someone else. Provider notified. ll1 19:09 15:17 Risk Assessment: Do you want to hurt yourself or someone else? Patient reports ll1 desire/thoughts of hurting themselves or someone else. Provider notified. Other: "shoot myself, but I couldn't get into the safe." ll1 20:57 15:17 Acuity: AARON 3 ll1 jb4
--- NOTE | 2020-08-15 22:56 | EDPHYS ---
Physician Documentation [facility] Name: Dolores Pérez Age: 60 yrs Sex: Female : 1960 Arrival Date: 08/15/2020 Time: 15:10 Bed 6 Private MD: Melvin Thao R ED Physician Danyell Nascimento HPI: 08/15 19:42 This 60 yrs old Female presents to ER via Ambulatory with complaints of covid ma2 pneumonia. 19:42 Onset: The symptoms/episode began/occurred gradually, 1 week(s) ago. Severity of ma2 symptoms: At their worst the symptoms were very mild, in the emergency department the symptoms are unchanged. Associated signs and symptoms: Pertinent negatives: ear ache, nausea, vomiting. The patient has not experienced similar symptoms in the past. Historical: - Allergies: 15:29 Sulfa (Sulfonamide Antibiotics); ll1 15:29 peanuts; ll1 15:29 NSAIDS; ll1 - PMHx: 15:29 Asthma; High Cholesterol; Hypertension; Hypothyroidism; COPD; ll1 - PSHx: 15:29 nasal sx; heart cath; ll1 - Immunization history:: Flu vaccine is up to date. - Social history:: Smoking status: unknown Patient/guardian denies using alcohol, street drugs, The patient lives with family. - Family history:: not pertinent. ROS: 19:42 Constitutional: Negative for fever, chills, and weight loss. ma2 19:42 All other systems are negative. Exam: 19:42 Constitutional: This is a well developed, well nourished patient who is awake, alert, ma2 and in no acute distress. Head/Face: Normocephalic, atraumatic. Eyes: Pupils equal round and reactive to light, extra-ocular motions intact. Lids and lashes normal. Conjunctiva and sclera are non-icteric and not injected. Cornea within normal limits. Periorbital areas with no swelling, redness, or edema. ENT: Nares patent. No nasal discharge, no septal abnormalities noted. Tympanic membranes are normal and external auditory canals are clear. Oropharynx with no redness, swelling, or masses, exudates, or evidence of obstruction, uvula midline. Mucous membranes moist. Neck: Trachea midline, no thyromegaly or masses palpated, and no cervical lymphadenopathy. Supple, full range of motion without nuchal rigidity, or vertebral point tenderness. No Meningismus. Chest/axilla: Normal chest wall appearance and motion. Nontender with no deformity. No lesions are appreciated. Cardiovascular: Regular rate and rhythm with a normal S1 and S2. No gallops, murmurs, or rubs. Normal PMI, no JVD. No pulse deficits. Respiratory: Lungs have equal breath sounds bilaterally, clear to auscultation and percussion. No rales, rhonchi or wheezes noted. No increased work of breathing, no retractions or nasal flaring. Abdomen/GI: Soft, non-tender, with normal bowel sounds. No distension or tympany. No guarding or rebound. No evidence of tenderness throughout. Back: No spinal tenderness. No costovertebral tenderness. Full range of motion. MS/ Extremity: Pulses equal, no cyanosis. Neurovascular intact. Full, normal range of motion. Neuro: Awake and alert, GCS 15, oriented to person, place, time, and situation. Cranial nerves II-XII grossly intact. Motor strength 5/5 in all extremities. Sensory grossly intact. Cerebellar exam normal. Normal gait. Vital Signs: 15:17 BP 169 / 98; Pulse 89; Resp 17; Temp 98.0; Pulse Ox 98% ; Weight 63.5 kg; Height 5 ft. ll1 7 in. (170.18 cm); Pain 8/10; 20:30 BP 159 / 87; Pulse 76; Resp 16; Pulse Ox 99% on R/A; jb4 21:30 BP 150 / 72; Pulse 79; Resp 16; Pulse Ox 99% on R/A; jb4 22:15 BP 141 / 72; Pulse 75; Resp 18; Pulse Ox 100% on R/A; jb4 08/16 01:06 BP 125 / 95; Pulse 78; Resp 17; Pulse Ox 99% on R/A; jb4 08/15 15:17 Body Mass Index 21.93 (63.50 kg, 170.18 cm) ll1 MDM: 08/15 19:21 Patient medically screened. ma2 19:42 Differential Diagnosis: Bronchitis Upper Respiratory Infection Pharyngitis Viral ma2 Syndrome Pneumonia. 21:06 Data reviewed: vital signs, nurses notes. Counseling: I had a detailed discussion with ma2 the patient and/or guardian regarding: the historical points, exam findings, and any diagnostic results supporting the discharge/admit diagnosis, the presence of at least one elevated blood pressure reading (>120/80) during this emergency department visit, the need for outpatient follow up. Response to treatment: the patient's symptoms have markedly improved after treatment. 21:06 ED course: patient states she has active si, with thought to kill herself, she has a ma2 gun at home and her plan is to shoot herself.. She has chronic depression, takes xanax prn, she is agreeable to be transferred to psych facility.. she does have covid with mild cough however her sats are 100% on ra. she has no other symptoms.. her labs are non critical and she is medically cleared for psych dispo.. . 08/16 00:32 ED course: i discussed with donte and after they evaluated her they recommended ma2 outpatient care.. . 08/15 19:41 Order name: Basic Metabolic Panel [facility] 08/15 19:41 Order name: CBC with Diff; Complete Time: 20:44 [facility] 08/15 19:41 Order name: LFT's [facility] 08/15 19:41 Order name: Magnesium; Complete Time: 22:56 [facility] 08/15 19:41 Order name: NT PRO-BNP; Complete Time: 22:56 [facility] 08/15 19:41 Order name: PT-INR; Complete Time: 22:56 [facility] 08/15 19:41 Order name: Troponin (emerg Dept Use Only); Complete Time: 22:56 [facility] 08/15 19:42 Order name: Basic Metabolic Panel; Complete Time: 22:56 [facility] 08/15 19:43 Order name: Liver (Hepatic) Function; Complete Time: 22:56 [facility] 08/15 20:43 Order name: UDS sg 08/15 20:43 Order name: Acetaminophen sg 08/15 20:43 Order name: Salicylate sg 08/15 20:44 Order name: Urine Drug Screen; Complete Time: 22:56 [facility] 08/15 19:41 Order name: XRAY Chest (1 view) [facility] 08/15 19:41 Order name: EKG; Complete Time: 19:43 [facility] 08/15 19:41 Order name: Cardiac monitoring; Complete Time: 20:37 [facility] 08/15 19:41 Order name: EKG - Nurse/Tech; Complete Time: 20:37 ma2 08/15 19:41 Order name: IV Saline Lock; Complete Time: 20:37 ma2 08/15 19:41 Order name: Labs collected and sent; Complete Time: 20:37 ms2 08/15 20:44 Order name: Salicylates Level; Complete Time: 22:56 EDMS 08/15 20:45 Order name: Acetaminophen Level; Complete Time: 22:56 EDMS 08/15 21:44 Order name: Urine Dipstick--Ancillary (enter results); Complete Time: 22:56 2 08/15 22:26 Order name: ETOH Level; Complete Time: 22:56 2 08/15 19:41 Order name: O2 Per Protocol; Complete Time: 19:51 ma2 08/15 19:41 Order name: O2 Sat Monitoring; Complete Time: 19:51 ma2 08/15 20:43 Order name: Urine Dipstick-Ancillary (obtain specimen); Complete Time: 01:06 sg 08/15 20:48 Order name: Labs - recollect needed: Need a RED top drawn and sent for tox; Complete sg Time: 01:06 Administered Medications: 08/15 20:05 Drug: Ativan 0.5 mg Route: IVP; Site: right antecubital; jb4 20:30 Follow up: Response: No adverse reaction; Anxiety decreased jb4 20:06 Drug: TORadol 30 mg Route: IVP; Site: right antecubital; jb4 20:57 Follow up: Response: No adverse reaction; Pain is decreased jb4 20:07 Drug: NS 0.9% 1000 ml Route: IV; Rate: 1 bolus; Site: right antecubital; jb4 21:00 Follow up: Response: No adverse reaction; IV Status: Completed infusion; IV Intake: jb4 1000ml 20:10 Drug: Albuterol HFA Inhaler 2 puffs Route: Inhalation; jb4 20:58 Follow up: Response: No adverse reaction jb4 Disposition: 08/16/20 00:33 Discharged to Home. Impression: Coronavirus infection, unspecified. - Condition is Stable. - Discharge Instructions: COVID-19. - Medication Reconciliation Form, Thank You Letter, Antibiotic Education, Prescription Opioid Use form. - Follow up: Private Physician; When: Tomorrow; Reason: Continuance of care. Signatures: Dispatcher [employer] EDGA Jasper Moon, RN RN sg Nishant Gibbs RN RN jb4 Danyell Nascimento MD MD ma2 Prabha Hummel RN RN ll1 Corrections: (The following items were deleted from the chart) 20:45 20:44 Acetaminophen Level ordered. [facility] 08/16 00:32 0209 22:56 08/15/2020 22:56 Transfer ordered to [facility]. Diagnosis is Suicidal ma2 ideations; Coronavirus infection, unspecified. Reason for transfer: Higher level of care. Accepting physician is os. Condition is Stable. Problem is new. Symptoms are unchanged. [facility] 08/16 01:09 00:33 08/16/2020 00:33 Discharged to Home. Impression: Coronavirus infection, jb4 unspecified. Condition is Stable. Forms are Medication Reconciliation Form, Thank You Letter, Antibiotic Education, Prescription Opioid Use. Follow up: Private Physician; When: Tomorrow; Reason: Continuance of care. ma2
[2020-08-16 01:15] VITALS: TEMP 98
[2020-08-16 01:19] VITALS: BP 125/95; O2SAT 99
--- NOTE | 2020-08-16 07:14 | RAD REPORT ---
EXAM DESCRIPTION: RAD - Chest Single View - 08/15/2020 8:22 pm CLINICAL HISTORY: CONGESTION, COVID-19 pneumonia COMPARISON: Two view chest August 14, CT chest August 12 TECHNIQUE: AP portable chest image was obtained 08/15/2020 8:22 pm . FINDINGS: Lung volumes reduced compared to the chest film. Patchy airspace opacification is present probably not of any significant change given the lower lung volumes and less penetrated film techniqu e. No failure or volume overload. Heart and vasculature are normal. No measurable pleural effusion an d no pneumothorax. No acute bony abnormality seen. No acute aortic findings suspected. IMPRESSION: Mild bilateral pneumonia findings compatible with the history of COVID-19 pneumonia. When adjusting for inspiration and technique differences, pneumonia findings are not substantially di fferent.
--- OUTSIDE RECORDS SUMMARY | 2020-08-16 11:20 | XMS REPORT | Continuity of Care Document ---
:1960 Author Organization [facility] t Address [address] [place] [address] Care Team Providers Name Role Phone Ada [...] Clinicians Facility Department ID 2019-07-27 2019-07-27 Emergency STALIN Ortega [id number] 18:07:12 20:13:00 Mariangel Grace [id number] [place] [id number] [place] [phone] 084 2019-07-27 2019-07-27 Orders Doctor LING [id number] 00:00:00 00:00:00 Only UnassignedKIRK [id number] [place] [facility] [phone] [id number] 2019-03-11 2019-03-11 Emergency STALIN Connor [id number] 14:05:54 16:45:00 Cristobal Grace [id number] [place] [id number] [place] [phone] [phone] Results This patient has no known results.
--- NOTE | 2020-08-16 11:54 | EKG ---
Test Date: 2020-08-15 Test Time: 20:02:35 Health Care Manager: JOHAN MEASUREMENT RESULTS: Intervals: Rate: 85 [place]: 132 QRSD: 88 QT: 382 QTc: 454 [place]: P: 71 [place]: 132 QRS: 58 T: 62 INTERPRETIVE STATEMENTS: Normal sinus rhythm ST abnormality, possible digitalis effect Abnormal ECG Compared to ECG 08/12/2020 21:08:53 ST (T wave) deviation now present Electronically Signed On 08-16-20 11:53:21 FRENCH TEACHER by George Ma
== END 2020-08-16 01:09 | disposition home or self-care (01) ==
LOC: ER 15:08
DX: U07.1 COVID-19 (principal); J12.82 Pneumonia due to coronavirus disease 2019; J44.9 Chronic obstructive pulmonary disease, unspecified; E03.9 Hypothyroidism, unspecified; E78.00 Pure hypercholesterolemia, unspecified; I10 Essential (primary) hypertension
CPT/HCPCS: 36415; 71045; 80048; 80076; 80307; 80320; 80329; 81003; 83735; 83880; 84484; 85025; 85610; 93005; 96361; 96374; 96375; 99284

== ENCOUNTER 2020-08-30 20:23 | Emergency (ER) | payer OTHER ==
--- OUTSIDE RECORDS SUMMARY | 2020-08-30 20:26 | XMS REPORT | Continuity of Care Document ---
:1960 Author Organization [facility] t Address [address] [place] [address] Care Team Providers Name Role Phone Ada [...] [facility] [id number] 18:07:12 20:13:00 Mariangel Grace [id number] [place] [id number] [place] [phone] [id number] 2019-07-27 2019-07-27 Orders Doctor LING [id number] 24 00:00:00 00:00:00 Only Unassigned, KIRK [id number] [place] [facility] [phone] [phone] 2019-03-11 Emergency STALIN Connor [id number] 14:05:54 16:45:00 Cristobal Grace [id number] [place] [id number] [place] [address] [phone] [id number] Results This patient has no known results.
[2020-08-30 22:45] LABS: Urine Blood NEGATIVE (NEG); Urine Glucose NEGATIVE (NEG); Urine Protein NEGATIVE (NEG); Urine pH 6.5 (5.0-7.0)
[2020-08-30 22:46] LABS: Absolute Lymphocytes (CBC) 2.2 K/uL (0.7-4.9); Basophils % 0.3 % (0-1.3); Hematocrit 34.9 % (36.0-45.0); Lymphocytes % 36.7 % (15.3-44.8); MPV 8.8 fL (7.6-11.3); RBC Red Blood Cell Count 3.84 M/uL (3.86-4.86)
[2020-08-30 22:50] LABS: Urine Bacteria <20 /HPF (<20); Urine RBC <5 /HPF (NONE SEEN)
[2020-08-30 22:55] LABS: ALT/SGPT 24 U/L (12-78); AST/SGOT 14 U/L (15-37); Albumin 3.8 g/dL (3.4-5.0); Alkaline Phosphatase 81 U/L (45-117); BUN Blood Urea Nitrogen 7 mg/dL (7-18); Bicarbonate 25 mmol/L (21-32); Bilirubin Direct < 0.1 mg/dL (0-0.2); Bilirubin Total 0.3 mg/dL (0.2-1.0); Glucose Level 185 mg/dL (74-106); Lipase 60 U/L (73-393); Potassium 3.8 mmol/L (3.5-5.1); Protein, Total 7.4 g/dL (6.4-8.2); Sodium Level 140 mmol/L (136-145)
[2020-08-30] MEDS ORDERED: FAMOTIDINE 20 MG/2 ML VIAL IV ONE (23:17)
[2020-08-30] MEDS ORDERED: NA CHLORIDE 0.9% 1,000 ML ONE (23:17)
[2020-08-30] MEDS ORDERED: FLUCONAZOLE 100 MG TAB ONE ×2 (23:20→23:46)
--- NOTE | 2020-08-30 23:38 | EDPHYS ---
Physician Documentation [facility] Name: Dolores Pérez Age: 60 yrs Sex: Female : 1960 Arrival Date: 08/30/2020 Time: 20:26 Bed 17 Private MD: Melvin Thao R ED Physician Feng Tian HPI: 08/30 22:15 This 60 yrs old Female presents to ER via Ambulatory with complaints of Pain jmm With Urination. 22:15 The patient presents with urinary symptoms, dysuria. Onset: The symptoms/episode jmm began/occurred gradually. Modifying factors: The symptoms are alleviated by nothing, the symptoms are aggravated by urinating. Associated signs and symptoms: Pertinent positives: abdominal pain. This is a 60 year old female with ahistory of asthma, copd that presents to the ED with complaints of dysuria, lower abdominal pain, vomiting with cough. Patient states she feels dehydrated beging recently diagnosed with covid 19. . Historical: - Allergies: 21:25 NSAIDS; ca1 21:25 peanuts; ca1 21:25 Sulfa (Sulfonamide Antibiotics); ca1 - Home Meds: 21:25 Spironolactone Oral [Active]; levothyroxine 125 mcg tab once daily [Active]; Albuterol ca1 Inhl [Active]; Tessalon Perles Oral [Active]; Doxycycline Oral [Active]; - PMHx: 21:25 Asthma; High Cholesterol; Hypertension; COPD; Hypothyroidism; ca1 - PSHx: 21:25 nasal sx; heart cath; ca1 - Immunization history:: Flu vaccine is up to date. - Social history:: Smoking status: Patient denies any tobacco usage or history of. ROS: 22:15 Constitutional: Negative for fever, chills, and weight loss, Cardiovascular: Negative jmm for chest pain, palpitations, and edema, Respiratory: Negative for shortness of breath, cough, wheezing, and pleuritic chest pain. 22:15 Abdomen/GI: Positive for abdominal pain. 22:15 : Positive for urinary symptoms. 22:15 All other systems are negative. Exam: 22:15 Constitutional: This is a well developed, well nourished patient who is awake, alert, jmm and in no acute distress. Head/Face: atraumatic. Eyes: EOMI, no conjunctival erythema appreciated ENT: Moist Mucus Membranes Neck: Trachea midline, Supple Chest/axilla: Normal chest wall appearance and motion. Cardiovascular: Regular rate and rhythm. No edema appreciated Respiratory: Normal respirations, no respiratory distress appreciated 22:15 Back: Normal ROM Skin: General appearance color normal MS/ Extremity: Moves all extremities, no obvious deformities appreciated, no edema noted to the lower extremities Neuro: Awake and alert, normal gait Psych: Behavior is normal, Mood is normal, Patient is cooperative and pleasant 22:15 Abdomen/GI: Inspection: abdomen appears normal, Bowel sounds: normal, Palpation: soft, mild abdominal tenderness, in the suprapubic area. Vital Signs: 21:19 BP 138 / 78; Pulse 85; Resp 16 S; Temp 97.4(TE); Pulse Ox 98% on R/A; Weight 63.5 kg ca1 (R); Height 5 ft. 7 in. (170.18 cm) (R); 21:19 Body Mass Index 21.93 (63.50 kg, 170.18 cm) ca1 MDM: 21:42 Patient medically screened. [facility] 23:30 Data reviewed: vital signs, nurses notes. Counseling: I had a detailed discussion with zaria the patient and/or guardian regarding: the historical points, exam findings, and any diagnostic results supporting the discharge/admit diagnosis, lab results, radiology results, the need for outpatient follow up, to return to the emergency department if symptoms worsen or persist or if there are any questions or concerns that arise at home. ED course: Patient is advised to follow up with pcp and otherwise given strict return precautions. Labs unremarkable. Patient prescribed oral abx for dysuria. Patient understood and agrees with the plan of care. . 08/30 22:00 Order name: Urine Culture [facility] 08/30 22:14 Order name: Urine Microscopic Only; Complete Time: 22:57 [facility] 08/30 22:14 Order name: Basic Metabolic Panel; Complete Time: 22:57 [facility] 08/30 22:14 Order name: CBC with Diff; Complete Time: 22:57 [facility] 08/30 22:14 Order name: Hepatic Function; Complete Time: 22:57 [facility] 08/30 22:14 Order name: Lipase; Complete Time: 22:57 [facility] 08/30 22:14 Order name: CT Abd/Pelvis - IV Contrast Only [facility] 08/30 22:35 Order name: Urine Dipstick--Ancillary (enter results); Complete Time: 22:57 tt3 08/30 23:56 Order name: Flu [facility] 08/30 23:56 Order name: COVID-19 : Document "Date of Symptom Onset" if Symptomatic. [facility] 08/30 22:00 Order name: Urine Dipstick-Ancillary (obtain specimen); Complete Time: 22:33 [facility] 08/30 22:14 Order name: IV Saline Lock; Complete Time: 22:33 [facility] 08/30 22:14 Order name: Labs collected and sent; Complete Time: 22:33 [facility] Administered Medications: 22:30 Drug: DiFLUcan 150 mg Route: PO; ll2 23:20 Follow up: Response: No adverse reaction ll2 22:55 Drug: NS 0.9% 1000 ml Route: IV; Rate: 1 bolus; Site: right antecubital; ll2 Disposition: 08/31 06:45 Co-signature as Attending Physician, Feng Tian MD I agree with the assessment and trent plan of care. Disposition: 08/30/20 23:38 Discharged to Home. Impression: Dysuria. - Condition is Stable. - Discharge Instructions: Dysuria. - Prescriptions for Cephalexin 500 mg Oral Capsule - take 1 capsule by ORAL route every 12 hours for 10 days; 20 capsule. - Medication Reconciliation Form, Thank You Letter, Antibiotic Education, Prescription Opioid Use form. - Follow up: Melvin Thao MD; When: 2 - 3 days; Reason: Recheck today's complaints, Continuance of care, Re-evaluation by your physician. Signatures: Dispatcher [employer] EDFeng Silva MD MD cha Mickail, Joel, PA PA [facility] aNni Plunkett RN RN ca1 [place], Lacie, RN RN ll2 Corrections: (The following items were deleted from the chart) 00:56 08/30 23:38 08/30/2020 23:38 Discharged to Home. Impression: Dysuria. Condition is ll2 Stable. Forms are Medication Reconciliation Form, Thank You Letter, Antibiotic Education, Prescription Opioid Use. Follow up: Melvin Thao; When: 2 - 3 days; Reason: Recheck today's complaints, Continuance of care, Re-evaluation by your physician. [facility]
--- NOTE | 2020-08-30 23:38 | ER ---
Nurse's Notes [facility] Name: Dolores Pérez Age: 60 yrs Sex: Female : 1960 Arrival Date: 08/30/2020 Time: 20:26 Bed 17 Private MD: Melvin Thao R Diagnosis: Dysuria Presentation: 08/30 21:19 Chief complaint: Patient states: Covid+ 08/06/2020, S/S started 08/05/2020. Here today ca1 for coughing everything up, couldn't hold anything down, and had diarrhea this morning. Also, burning with urination, suprapubic pain and vaginal itching. Coronavirus screen: Client reports previous positive COVID test result. Date of collection: August 06, 2020. Ebola Screen: Patient negative for fever greater than or equal to 101.5 degrees Fahrenheit, and additional compatible Ebola Virus Disease symptoms Patient denies exposure to infectious person. Patient denies travel to an Ebola-affected area in the 21 days before illness onset. No symptoms or risks identified at this time. Initial Sepsis Screen: Does the patient meet any 2 criteria? No. Patient's initial sepsis screen is negative. Does the patient have a suspected source of infection? No. Patient's initial sepsis screen is negative. Risk Assessment: Do you want to hurt yourself or someone else? Patient reports no desire to harm self or others. Onset of symptoms was August 30, 2020. 21:19 Method Of Arrival: Ambulatory ca1 21:19 Acuity: AARON 3 ca1 Historical: - Allergies: 21:25 NSAIDS; ca1 21:25 peanuts; ca1 21:25 Sulfa (Sulfonamide Antibiotics); ca1 - Home Meds: 21:25 Spironolactone Oral [Active]; levothyroxine 125 mcg tab once daily [Active]; Albuterol ca1 Inhl [Active]; Tessalon Perles Oral [Active]; Doxycycline Oral [Active]; - PMHx: 21:25 Asthma; High Cholesterol; Hypertension; COPD; Hypothyroidism; ca1 - PSHx: 21:25 nasal sx; heart cath; ca1 - Immunization history:: Flu vaccine is up to date. - Social history:: Smoking status: Patient denies any tobacco usage or history of. Vital Signs: 21:19 BP 138 / 78; Pulse 85; Resp 16 S; Temp 97.4(TE); Pulse Ox 98% on R/A; Weight 63.5 kg ca1 (R); Height 5 ft. 7 in. (170.18 cm) (R); 21:19 Body Mass Index 21.93 (63.50 kg, 170.18 cm) ca1 ED Course: 20:26 Patient arrived in ED. am2 20:26 Melvin Thao MD is Private Physician. am2 21:23 Triage completed. ca1 21:25 Arm band placed on right wrist. ca1 21:28 Anuj Fernandez PA is PHCP. [facility] 21:28 Feng Tian MD is Attending Physician. [facility] 22:32 Inserted saline lock: 20 gauge in right antecubital area, using aseptic technique. 4 Blood collected. 22:49 CT Abd/Pelvis - IV Contrast Only In Process Unspecified. EDMS 22:54 Ingris Jarrell RN is Primary Nurse. 2 23:38 Melvin Thao MD is Referral Physician. [facility] 08/31 06:04 COVID-19 : Document "Date of Symptom Onset" if Symptomatic. Sent. 2 06:04 Flu Sent. ll2 Administered Medications: 08/30 22:30 Drug: DiFLUcan 150 mg Route: PO; ll2 23:20 Follow up: Response: No adverse reaction 2 22:55 Drug: NS 0.9% 1000 ml Route: IV; Rate: 1 bolus; Site: right antecubital; 2 Outcome: 23:38 Discharge ordered by . [facility] 08/31 00:56 Patient left the ED. ll2 Addendum: 09/03/2020 11:39 Addendum: COVID-19 Result: Positive result giiven to ED physician to notify pt. e b Physician: Feng Tian MD Physician was able to contact pt and pt was notified of positive COVID-19 swab result. Physician answered pt questions. Signatures: Dispatcher [employer] EDMS Anuj Fernandez PA PA [facility] Donna Marx am2 Trish March Cheryl RN RN ca1 [place] Sauced[place] 4 Ingris Jarrell RN RN ll2
[2020-08-31 02:17] LABS: SARS-COV-2 RT PCR POSITIVE (NEGATIVE)
[2020-08-31 04:11] VITALS: BP 138/78; TEMP 97.4; O2SAT 98
--- NOTE | 2020-08-31 14:29 | RAD REPORT ---
EXAM DESCRIPTION: CT - Abdomen Pelvis W Contrast - 08/31/2020 7:03 am RadLex: CT ABDOMEN PELVIS WITH IV CONTRAST CLINICAL HISTORY: Lower abdominal pain. COMPARISON: CT of the abdomen and pelvis from May 20, 2016. TECHNIQUE: CT of the abdomen and pelvis was performed following intravenous administration of iodina zoila contrast. Arterial phase images through the abdomen and portal venous phase images through the ab domen and pelvis were obtained. Oral contrast was not administered. Axial, coronal, and sagittal soft tissue window reconstructions were created and sent to PACS. This exam was performed according to our departmental dose-optimization program, which includes autom ated exposure control, adjustment of the mA and/or kV according to patient size and/or use of iterati ve reconstruction technique. FINDINGS: Thoracic: No significant abnormality. Hepatobiliary: Diffuse hepatic steatosis. No concerning hepatic lesion identified. The hepatic and po rtal veins are patent. The gallbladder is unremarkable. No biliary ductal dilatation. Pancreas: Unremarkable. Spleen: Unremarkable. Gastrointestinal: Possible tiny sliding-type hiatal hernia. No evidence of bowel obstruction or perie nteric inflammation. The appendix is normal. Small amount of fecal material throughout the colon. Adrenals: No abnormality identified in either adrenal gland. Renal: Moderate diffuse bilateral renal cortical thinning. No concerning parenchymal abnormality in e ither kidney. No hydronephrosis bilaterally. In the right kidney, at the inferior pole, there is a 0. 5 cm calculus as well as a punctate calculus. There is a left interpolar 0.4 cm renal calculus, as we ll as a 0.3 cm calculus at the lower pole. Bladder/Reproductive: Unremarkable appearance of the urinary bladder by CT technique. Grossly unremar kable CT appearance of the uterus and ovaries. Vascular/Lymphatics: No lymphadenopathy identified by CT size criteria. Abdominal aorta is normal in caliber. Mild to moderate atherosclerosis. The major visceral vessels are patent. Musculoskeletal: No concerning osseous lesion identified. Chronic pars interarticularis defect on the left at L5. No anterolisthesis. Osteopenia. Fluid / peritoneum: No significant free fluid. No free intraperitoneal air identified. IMPRESSION 1. No acute abnormality identified in the abdomen or pelvis by CT. 2. Few nonobstructive bilateral renal calculi. 3. Diffuse hepatic steatosis. Electronically signed by: Jewell Martino MD 08/30/2020 11:00 PM MANAGER MINING Due to temporary technical issues with the PACS/Fluency reporting system, reports are being signed by the in house radiologists without review as a courtesy to insure prompt reporting. The interpreting radiologist is fully responsible for the content of the report.
== END 2020-08-31 00:56 | disposition home or self-care (01) ==
LOC: ER 20:23
DX: R30.0 Dysuria (principal); U07.1 COVID-19; I10 Essential (primary) hypertension; J44.9 Chronic obstructive pulmonary disease, unspecified; E03.9 Hypothyroidism, unspecified; E78.00 Pure hypercholesterolemia, unspecified; Z88.2 Allergy status to sulfonamides; Z88.6 Allergy status to analgesic agent; Z91.010 Allergy to peanuts
CPT/HCPCS: 87088; 85025; 87086; 80048; 36415; 82565; 80076; 83690; 0240U; 74177; 99284; Q9967; J7030; 81003; 81015

== ENCOUNTER 2020-12-03 11:07 | Emergency (ER) | payer OTHER ==
--- OUTSIDE RECORDS SUMMARY | 2020-12-03 11:10 | XMS REPORT | Continuity of Care Document ---
:1960 Author Organization [facility] t Address [address] [place] [address] Care Team Providers Name Role Phone Lab, Fam Pob I Attending Clinician Unavailable Arjun Madrigal DO Attending Clinician Ada Miller Attending Clinician Doctor Unassigned, Name [...] Date/Time Type Type Clinicians Facility Department ID 2020-09-16 2020-09-16 Laboratory Lab, [facility] [id number] [id number] 09:44:15 10:04:15 Only Fam Pob I Health [id number] [place] [id number] [facility] [phone] nal [address] 2020-09-13 2020-09-13 Emergency Rohan LAJIA [id number] 20:05:00 22:24:00 Diana Grace [id number] [place] [id number] [place] [phone] [id number] 2019-07-27 2019-07-27 Emergency Shannon LAJIA [id number] 18:07:12 20:13:00 Mariangel Grace [id number] [place] [id number] [place] [phone] [id number] 2019-07-27 2019-07-27 Orders Doctor SUSHIL [id number] 00:00:00 00:00:00 Only Unassigned, KIRK [id number] [place] [phone] [id number] 2019-03-11 2019-03-11 Emergency [facility] [id number] 14:05:54 16:45:00 Cristobalmegha Grace [id number] [place] [id number] [place] [phone] [phone] Results This patient has no known results.
[2020-12-03 11:51] LABS: Urine Blood Negative (Negative); Urine Glucose Trace (Negative); Urine Protein Negative (Negative); Urine Specific Gravity 1.015 (1.005-1.030); Urine pH 7.5 (5.0-7.0)
[2020-12-03 15:01] LABS: Absolute Lymphocytes (CBC) 1.7 K/uL (0.7-4.9); Basophils % 0.2 % (0-1.3); Hematocrit 38.2 % (36.0-45.0); MPV 9.1 fL (7.6-11.3); RBC Red Blood Cell Count 4.18 M/uL (3.86-4.86)
[2020-12-03 15:20] LABS: ALT/SGPT 16 U/L (12-78); AST/SGOT 9 U/L (15-37); Albumin 4.3 g/dL (3.4-5.0); Alkaline Phosphatase 71 U/L (45-117); BUN Blood Urea Nitrogen 7 mg/dL (7-18); Bicarbonate 28 mmol/L (21-32); Bilirubin Direct 0.2 mg/dL (0-0.2); Bilirubin Total 0.5 mg/dL (0.2-1.0); Glucose Level 133 mg/dL (74-106); Lipase 36 U/L (73-393); Potassium 3.4 mmol/L (3.5-5.1); Protein, Total 8.3 g/dL (6.4-8.2); Sodium Level 141 mmol/L (136-145)
--- NOTE | 2020-12-03 15:36 | RAD REPORT ---
EXAM DESCRIPTION: CT - Abdomen Pelvis W Contrast - 12/03/2020 3:10 pm CLINICAL HISTORY: Dysuria;Abd pain COMPARISON: Abdomen Pelvis W Contrast dated 08/30/2020 TECHNIQUE: Biphasic, helical CT imaging of the abdomen and pelvis was performed following 100 ml non -ionic IV contrast. No oral contrast given. All CT scans are performed using dose optimization technique as appropriate and may include automated exposure control or mA/KV adjustment according to patient size. FINDINGS: No suspicious findings in the lung bases. The liver, spleen, and pancreas show no suspicious focal findings. Liver attenuation indicates mild f atty infiltration. Gallbladder and biliary tree are also without suspicious finding. Symmetric renal function is seen with no hydronephrosis or suspicious renal mass. No pyelonephritis o r acute parenchymal process. No bladder abnormalities. No adrenal abnormalities. No uterine or ovaria n abnormality suspected. Stomach and small bowel show no acute findings. No suspicion for appendicitis. From cecum through alfreda cending colon no suspicious finding noted. There is a 12 centimeter long segment of sigmoid colon marietta wing significant irregular circumferential wall thickening. A few diverticula are present in this reg ion. Adjacent edematous/ inflammatory stranding and free fluid are present. No extraluminal free air identified. Pneumatosis is not confirmed. No hernia, mass or bulky lymphadenopathy. No suspicious bony findings. IMPRESSION: Approximately 12 centimeter long length of the sigmoid colon shows circumferential wall thickening and wall nodularity. There is stranding and free fluid in the adjacent fatty tissues. No extraluminal free air, abscess or surgically emergent finding. CT findings are typically acute diverticulitis. Patient only has a few diverticula. A nonspecific col itis would be possible as well. Malignancy is unlikely and does not typically involve such a long randa gth of the colon.
[2020-12-03 16:19] LABS: Urine Bacteria <20 /HPF (<20); Urine RBC <5 /HPF (NONE SEEN)
--- NOTE | 2020-12-03 16:21 | ER ---
Nurse's Notes [facility] Name: Dolores Pérez Age: 60 yrs Sex: Female : 1960 Arrival Date: 12/03/2020 Time: 11:12 Bed 4 Private MD: Diagnosis: Unspecified abdominal pain;Dysuria Presentation: 12/03 11:36 Chief complaint: Patient states: Lower abd pain for 1 day. States her last BM was ll1 yesterday. Reports urinary frequency and hesitancy since this morning. No fever. Coronavirus screen: Client denies travel out of the [place] in the last 14 days. At this time, the client does not indicate any symptoms associated with coronavirus-19. Ebola Screen: Patient denies travel to an Ebola-affected area in the 21 days before illness onset. Initial Sepsis Screen: Does the patient meet any 2 criteria? HR > 90 bpm. No. Patient's initial sepsis screen is negative. Does the patient have a suspected source of infection? Yes:. Risk Assessment: Do you want to hurt yourself or someone else? Patient reports no desire to harm self or others. Onset of symptoms was December 03, 2020. 11:36 Method Of Arrival: Ambulatory ll1 11:36 Acuity: AARON 3 ll1 Triage Assessment: 13:50 General: Appears distressed, uncomfortable, slender, Behavior is cooperative, bp appropriate for age, anxious. Pain: Complains of pain in right lower quadrant and left lower quadrant. EENT: No deficits noted. Neuro: No deficits noted. Cardiovascular: Rhythm is sinus rhythm. Respiratory: No deficits noted. GI: Reports lower abdominal pain. : No signs and/or symptoms were reported regarding the genitourinary system. Derm: No deficits noted. Musculoskeletal: No deficits noted. Historical: - Allergies: 11:38 NSAIDS; ll1 11:38 peanuts; ll1 11:38 Sulfa (Sulfonamide Antibiotics); ll1 - PMHx: 11:38 Asthma; COPD; High Cholesterol; Hypertension; Hypothyroidism; ll1 - PSHx: 11:38 nasal sx; heart cath; ll1 - Immunization history:: Client reports receiving the 2nd dose of the Covid vaccine, Flu vaccine is up to date. - Social history:: Smoking status: Patient denies any tobacco usage or history of. Screenin:50 Abuse screen: Denies threats or abuse. Denies injuries from another. Nutritional bp screening: No deficits noted. Tuberculosis screening: No symptoms or risk factors identified. Fall Risk None identified. Assessment: 13:50 General: SEE TRIAGE NOTE. bp 15:00 Reassessment: PT RETURNED FROM CT. bp Vital Signs: 11:36 BP 144 / 75; Pulse 93; Resp 17; Temp 98.5; Pulse Ox 99% ; Weight 58.97 kg; Height 5 ft. ll1 7 in. (170.18 cm); Pain 8/10; 15:00 BP 134 / 58; Pulse 87; Resp 16; Pulse Ox 97% ; bp 11:36 Body Mass Index 20.36 (58.97 kg, 170.18 cm) ll1 NIH Stroke Scale Scores: 13:50 NIHSS Score: 0 bp ED Course: 11:12 Patient arrived in ED. am4 11:38 Triage completed. ll1 11:39 Arm band placed on. ll1 13:49 Patient placed in an exam room, on a stretcher. ll1 13:50 Patient has correct armband on for positive identification. Bed in low position. Call bp light in reach. Side rails up X2. 13:51 Zac Menendez NP is PHCP. pm1 13:51 Feng Tian MD is Attending Physician. pm1 13:52 Hiro Valentin, JADEN is Primary Nurse. bp 14:52 Initial lab(s) drawn, by sd, sent to lab. Inserted saline lock: 20 gauge in left dh3 antecubital area, using aseptic technique. Blood collected. 15:10 CT Abd/Pelvis - IV Contrast Only In Process Unspecified. EDMS Administered Medications: 16:15 Drug: Cipro (ciprofloxacin) 500 mg Route: PO; bp 16:15 Drug: Flagyl (metroNIDAZOLE) 500 mg Volume: 100 ml; Route: IVPB; Rate: 200 ml/hr; bp Infused Over: 30 mins; Site: left forearm; Outcome: 16:21 Discharge ordered by . pm1 17:49 Patient left the ED. hb NIH Stroke Scale - NIH Stroke Score Date: 12/03/2020 Time: 13:50 Total Score = 0 1a. Level of Consciousness (LOC) - 0(Alert) 1b. Level of Consciousness (LOC) (Year \T\ Age) - 0(Both) 1c. LOC Commands (Open \T\ Closes Eyes/Elevator Adjuster) - 0(Both) 2. Best Gaze (Lateral Gaze Paresis) - 0(Normal) 3. Visual Field Loss - 0(No visual loss) 4. Facial Palsy - 0(Normal) 5a. Left Arm: Motor (10-second hold) - 0(No drift) 5b. Right Arm: Motor (10-second hold) - 0(No drift) 6a. Left Leg: Motor (5-second hold - always test supine) - 0(No drift) 6b. Right Leg: Motor (5-second hold - always test supine) - 0(No drift) 7. Limb Ataxia (finger/nose \T\ heel/cobian - test with eyes open) - 0(Absent) 8. Sensory Loss (pinprick arms/legs/face) - 0(Normal) 9. Best Language: Aphasia (description/naming/reading) - 0(No aphasia) 10. Dysarthria (speech clarity - read or repeat words) - 0(Normal) 11. Extinction and Inattention (visual/tactile/auditory/spatial/personal) - 0(No abnormality) Initials: bp Signatures: Dispatcher [employer] EDMS Zac Menendez, DATA SPECIALIST DATA SPECIALIST pm1 Rocio Read RN RN Carole Velarde 3 Hiro Valentin RN RN bp Prabha Hummel RN RN ll1 Melany Mancia am4
--- NOTE | 2020-12-03 16:21 | EDPHYS ---
Physician Documentation [facility] Name: Dolores Pérez Age: 60 yrs Sex: Female : 1960 Arrival Date: 12/03/2020 Time: 11:12 Bed 4 Private MD: ED Physician Feng Tian HPI: 12/03 14:06 This 60 yrs old Female presents to ER via Ambulatory with complaints of pm1 Abdominal Pain. 14:06 The patient presents with abdominal pain in suprapubic area. pm1 14:06 Onset: The symptoms/episode began/occurred 1 day(s) ago. The symptoms do not radiate. pm1 Associated signs and symptoms: none. Pertinent positives: dysuria, Pertinent negatives: nausea, vomiting, and diarrhea, fever. The symptoms are described as crampy. Modifying factors: The symptoms are alleviated by nothing, the symptoms are aggravated by nothing. Severity of pain: in the emergency department the pain is unchanged. The patient has not experienced similar symptoms in the past. The patient has not recently seen a physician. Patient is concerned about possible cancer due to unintentional weight loss recently around 20 pounds. Historical: - Allergies: 11:38 NSAIDS; ll1 11:38 peanuts; ll1 11:38 Sulfa (Sulfonamide Antibiotics); ll1 - PMHx: 11:38 Asthma; COPD; High Cholesterol; Hypertension; Hypothyroidism; ll1 - PSHx: 11:38 nasal sx; heart cath; ll1 - Immunization history:: Client reports receiving the 2nd dose of the Covid vaccine, Flu vaccine is up to date. - Social history:: Smoking status: Patient denies any tobacco usage or history of. ROS: 14:06 Eyes: Negative for injury, pain, redness, and discharge, ENT: Negative for injury, pm1 pain, and discharge, Neck: Negative for injury, pain, and swelling, Cardiovascular: Negative for chest pain, palpitations, and edema, Respiratory: Negative for shortness of breath, cough, wheezing, and pleuritic chest pain. 14:06 Back: Negative for injury and pain. 14:06 MS/Extremity: Negative for injury and deformity, Skin: Negative for injury, rash, and discoloration, Neuro: Negative for headache, weakness, numbness, tingling, and seizure. 14:06 Constitutional: Positive for weight loss, Negative for fever. 14:06 Abdomen/GI: Positive for abdominal pain, of the suprapubic area, Negative for nausea, vomiting, and diarrhea, constipation. 14:06 : Positive for urinary symptoms. Exam: 14:06 Constitutional: This is a well developed, well nourished patient who is awake, alert, pm1 and in no acute distress. Head/Face: Normocephalic, atraumatic. 14:06 Back: No spinal tenderness. No costovertebral tenderness. Full range of motion. 14:06 Skin: Warm, dry with normal turgor. Normal color with no rashes, no lesions, and no evidence of cellulitis. MS/ Extremity: Pulses equal, no cyanosis. Neurovascular intact. Full, normal range of motion. 14:06 Eyes: Exam is negative for acute changes, Periorbital structures: appear normal, Extraocular movements: intact throughout, Sclera: icterus, is not appreciated. 14:06 ENT: Mouth: Lips: normal, moist, Oral mucosa: normal, pink and intact, moist. 14:06 Cardiovascular: Rate: normal, Rhythm: regular, Pulses: no pulse deficits are appreciated. 14:06 Respiratory: Exam negative for acute changes, respiratory distress, shortness of breath. 14:06 Abdomen/GI: Inspection: abdomen appears normal, Palpation: abdomen is soft and non-tender, in all quadrants. 14:06 Neuro: Orientation: is normal, Mentation: is normal, Motor: is normal, moves all fours, Sensation: is normal, no obvious gross deficits. Vital Signs: 11:36 BP 144 / 75; Pulse 93; Resp 17; Temp 98.5; Pulse Ox 99% ; Weight 58.97 kg; Height 5 ft. ll1 7 in. (170.18 cm); Pain 8/10; 15:00 BP 134 / 58; Pulse 87; Resp 16; Pulse Ox 97% ; bp 11:36 Body Mass Index 20.36 (58.97 kg, 170.18 cm) ll1 NIH Stroke Scale Scores: 13:50 NIHSS Score: 0 bp MDM: 13:51 Patient medically screened. pm1 16:15 Data reviewed: vital signs. Data interpreted: Pulse oximetry: on room air is 97 %. pm1 Interpretation: normal. 16:15 ED course: Patient wanted a CT due to concern over the possibility of cancer due to pm1 unexplained unintentional weight loss. Differential with CT are diverticulitis, colitis, or possible malignancy. Patient without abdominal pain and presented here with dysuria. Will treat the patient with Flagyl and Cipro to cover diverticulitis or colitis. However patient does not have abdominal pain or nausea/vomiting/diarrhea/fever so differential are low to me. Recommended patient to follow up with GI for colonoscopy for further evaluation of possible cancer. 12/03 11:51 Order name: Urine Dipstick-Ancillary; Complete Time: 13:55 EDMS 12/03 14:06 Order name: Basic Metabolic Panel pm1 12/03 14:06 Order name: CBC with Diff; Complete Time: 15:54 pm1 12/03 14:06 Order name: Hepatic Function; Complete Time: 15:54 pm1 12/03 14:06 Order name: Lipase; Complete Time: 15:54 pm1 12/03 14:06 Order name: IV Saline Lock; Complete Time: 14:57 pm1 12/03 14:06 Order name: Labs collected and sent; Complete Time: 14:57 pm1 12/03 14:06 Order name: CT Abd/Pelvis - IV Contrast Only; Complete Time: 15:54 pm1 12/03 14:06 Order name: Urine Microscopic Only; Complete Time: 16:23 EDMS 12/03 14:06 Order name: Basic Metabolic Panel; Complete Time: 15:54 EDMS Administered Medications: 16:15 Drug: Cipro (ciprofloxacin) 500 mg Route: PO; bp 16:15 Drug: Flagyl (metroNIDAZOLE) 500 mg Volume: 100 ml; Route: IVPB; Rate: 200 ml/hr; bp Infused Over: 30 mins; Site: left forearm; Disposition: 12/04 07:30 Co-signature as Attending Physician, Fegn BARON I agree with the assessment and trent plan of care. Disposition: 12/03/20 16:21 Discharged to Home. Impression: Unspecified abdominal pain, Dysuria. - Condition is Stable. - Discharge Instructions: Abdominal Pain, Adult. - Prescriptions for Bentyl 20 mg Oral Tablet - take 1 tablet by ORAL route every 6 hours As needed; 20 tablet. Flagyl 500 mg Oral Tablet - take 1 tablet by ORAL route every 6 hours for 10 days; 40 tablet. Cipro 500 mg Oral Tablet - take 1 tablet by ORAL route every 12 hours for 10 days; 20 tablet. - Medication Reconciliation Form, Thank You Letter, Antibiotic Education, Prescription Opioid Use, Work release form form. - Follow up: Emergency Department; When: As needed; Reason: Worsening of condition. Follow up: Private Physician; When: 2 - 3 days; Reason: Recheck today's complaints, Continuance of care, Re-evaluation by your physician. - Problem is new. - Symptoms have improved. NIH Stroke Scale - NIH Stroke Score Date: 12/03/2020 Time: 13:50 Total Score = 0 1a. Level of Consciousness (LOC) - 0(Alert) 1b. Level of Consciousness (LOC) (Year \T\ Age) - 0(Both) 1c. LOC Commands (Open \T\ Closes Eyes/Grinder Hardboard) - 0(Both) 2. Best Gaze (Lateral Gaze Paresis) - 0(Normal) 3. Visual Field Loss - 0(No visual loss) 4. Facial Palsy - 0(Normal) 5a. Left Arm: Motor (10-second hold) - 0(No drift) 5b. Right Arm: Motor (10-second hold) - 0(No drift) 6a. Left Leg: Motor (5-second hold - always test supine) - 0(No drift) 6b. Right Leg: Motor (5-second hold - always test supine) - 0(No drift) 7. Limb Ataxia (finger/nose \T\ heel/cobian - test with eyes open) - 0(Absent) 8. Sensory Loss (pinprick arms/legs/face) - 0(Normal) 9. Best Language: Aphasia (description/naming/reading) - 0(No aphasia) 10. Dysarthria (speech clarity - read or repeat words) - 0(Normal) 11. Extinction and Inattention (visual/tactile/auditory/spatial/personal) - 0(No abnormality) Initials: bp Signatures: Dispatcher [employer] EDTX Feng Tian MD MD cha Marinas, Patrick, LAVATORY ATTENDANT LAVATORY ATTENDANT pm1 Rocio Read, Hiro Long RN, RN RN bp Lewis, Lynsay, RN RN ll1 Corrections: (The following items were deleted from the chart) 12/03 14:58 14:06 UA MICROSCOPIC+U.LAB.BRZ ordered. [facility] 16:23 16:15 ED course: Patient wanted a CT due to concern over the possibility of pm1 cancer due to unexplained unintentional weight loss. Differential with CT are diverticulitis, colitis, or possible malignancy. Patient without abdominal pain and presented here with dysuria. Will treat the patient with Flagyl and Cipro to cover diverticulitis or colitis. However patient does not have abdominal pain or diarrhea so differential are low to me. Recommended patient to follow up with GI for colonoscopy for further evaluation of possible cancer. pm1 16:23 16:21 12/03/2020 16:21 Discharged to Home. Impression: Urinary tract infection, pm1 site not specified; Unspecified abdominal pain. Condition is Stable. Forms are Medication Reconciliation Form, Thank You Letter, Antibiotic Education, Prescription Opioid Use. Follow up: Emergency Department; When: As needed; Reason: Worsening of condition. Follow up: Private Physician; When: 2 - 3 days; Reason: Recheck today's complaints, Continuance of care, Re-evaluation by your physician. Problem is new. Symptoms have improved. pm1 17:49 16:23 12/03/2020 16:21 Discharged to Home. Impression: Unspecified abdominal hb pain; Dysuria. Condition is Stable. Discharge Instructions: Abdominal Pain, Adult, Urinary Tract Infection, Adult. Prescriptions for Bentyl 20 mg Oral Tablet - take 1 tablet by ORAL route every 6 hours As needed; 20 tablet, Flagyl 500 mg Oral Tablet - take 1 tablet by ORAL route every 6 hours for 10 days; 40 tablet, Cipro 500 mg Oral Tablet - take 1 tablet by ORAL route every 12 hours for 10 days; 20 tablet. and Forms are Medication Reconciliation Form, Thank You Letter, Antibiotic Education, Prescription Opioid Use. Follow up: Emergency Department; When: As needed; Reason: Worsening of condition. Follow up: Private Physician; When: 2 - 3 days; Reason: Recheck today's complaints, Continuance of care, Re-evaluation by your physician. Problem is new. Symptoms have improved. pm1
[2020-12-03] MEDS ORDERED: CIPROFLOXACIN HCL 500 MG TAB ONE (16:46)
[2020-12-03] MEDS ORDERED: METRONIDAZOLE 500mg IVPB 500 MG/100 ML BAG IV ONE (16:46)
[2020-12-03 18:09] VITALS: TEMP 97.6
[2020-12-03 18:15] VITALS: O2SAT 95
[2020-12-03 18:16] VITALS: BP 104/69
== END 2020-12-03 17:49 | disposition home or self-care (01) ==
LOC: ER 11:07
DX: R30.0 Dysuria (principal); I10 Essential (primary) hypertension; Z88.2 Allergy status to sulfonamides; Z88.6 Allergy status to analgesic agent; Z91.010 Allergy to peanuts
CPT/HCPCS: 85025; 80048; 36415; 82565; 80076; 83690; 74177; 96374; 99284; Q9967; 81003; 81015

== ENCOUNTER 2021-02-06 10:35 | Emergency (ER) | payer OTHER ==
--- OUTSIDE RECORDS SUMMARY | 2021-02-06 10:37 | XMS REPORT | Continuity of Care Document ---
:1960 Author Organization [facility] t Address [address] [place] [address] Care Team Providers Name Role Phone Lab, [...] Facility Department ID 2020-09-16 2020-09-16 Laboratory Lab, [facility] [id number] 09:44:15 10:04:15 Only Fam [facility] [id number] [place] [id number] [facility] [phone] [address]al [address] 2020-09-13 2020-09-13 Emergency Rohan COJIA [id number] 20:05:00 22:24:00 Diana Grace [id number] [place] [id number] [place] [phone] [phone] 2019-07-27 Emergency Shannon COJIA [id number] 18:07:12 20:13:00 Mariangel Grace [id number] [place] [id number] [place] [phone] [phone] 2019-07-27 Orders Doctor SUSHIL [id number] 00:00:00 00:00:00 Only Unassigned, KIRK [id number] [place] [phone] [id number] 2019-03-11 2019-03-11 Emergency [facility] [id number] 14:05:54 16:45:00 Cristobalmegha Grace [id number] [place] [id number] [place] [phone] [phone] Results This patient has no known results.
--- NOTE | 2021-02-06 11:03 | RAD REPORT ---
EXAM DESCRIPTION: CT - Head Brain Wo Cont - 02/06/2021 10:49 am CLINICAL HISTORY: Pain;Trauma COMPARISON: No comparisons TECHNIQUE: All CT scans are performed using dose optimization technique as appropriate and may inclu de automated exposure control or mA/KV adjustment according to patient size. FINDINGS: No intracranial hemorrhage, hydrocephalus or extra-axial fluid collection.No areas of brai n edema or evidence of midline shift. Chronic small vessel ischemic changes The paranasal sinuses and mastoids are clear. The calvarium is intact. IMPRESSION: No acute intracranial abnormality.
--- NOTE | 2021-02-06 11:16 | RAD REPORT ---
EXAM DESCRIPTION: RAD - Knee Right 3 View - 02/06/2021 11:04 am CLINICAL HISTORY: PAIN COMPARISON: No comparisons FINDINGS: No right knee fractures identified. No malalignment. Slight medial and lateral compartment joint space narrowing IMPRESSION: No right knee fracture identified.
--- NOTE | 2021-02-06 11:17 | RAD REPORT ---
EXAM DESCRIPTION: RAD - Hip Right 2 View - 02/06/2021 11:04 am CLINICAL HISTORY: PAIN COMPARISON: Hip Right 2 View dated 12/10/2012 FINDINGS: Moderate right acetabular degenerative changes. No right hip fracture or dislocation. IMPRESSION: No right hip fracture or dislocation.
--- NOTE | 2021-02-06 11:23 | EDPHYS ---
Physician Documentation [facility] Name: Dolores Pérez Age: 60 yrs Sex: Female : 1960 Arrival Date: 02/06/2021 Time: 10:37 Bed Waiting Private MD: ED Physician Feng Tian HPI: 02/06 11:20 This 60 yrs old Female presents to ER via Unassigned with complaints of Fall jr8 injury. 11:20 Mechanism of injury: Fall: the patient fell from a standing position. Associated jr8 injuries: The patient sustained injury to the head, right leg. Onset: The symptoms/episode began/occurred acutely, today. The patient has not experienced similar symptoms in the past. The patient has not recently seen a physician. Patient stated that she tripped falling backwards hitting the back of her head. Denies loss of consciousness. Complains of right hip and knee pain as well.. ROS: 11:20 Eyes: Negative for injury, pain, redness, and discharge, ENT: Negative for injury, jr8 pain, and discharge, Neck: Negative for injury, pain, and swelling, Cardiovascular: Negative for chest pain, palpitations, and edema, Respiratory: Negative for shortness of breath, cough, wheezing, and pleuritic chest pain, Abdomen/GI: Negative for abdominal pain, nausea, vomiting, diarrhea, and constipation, Back: Negative for injury and pain, Skin: Negative for injury, rash, and discoloration. 11:20 MS/extremity: Positive for pain, tenderness, of the right leg. 11:20 Neuro: Positive for headache. Exam: 11:20 Constitutional: This is a well developed, well nourished patient who is awake, alert, jr8 and in no acute distress. Cardiovascular: Regular rate and rhythm with a normal S1 and S2. No gallops, murmurs, or rubs. Normal PMI, no JVD. No pulse deficits. Respiratory: Lungs have equal breath sounds bilaterally, clear to auscultation and percussion. No rales, rhonchi or wheezes noted. No increased work of breathing, no retractions or nasal flaring. Abdomen/GI: Soft, non-tender, with normal bowel sounds. No distension or tympany. No guarding or rebound. No evidence of tenderness throughout. Back: No spinal tenderness. No costovertebral tenderness. Full range of motion. Skin: Warm, dry with normal turgor. Normal color with no rashes, no lesions, and no evidence of cellulitis. Neuro: Awake and alert, GCS 15, oriented to person, place, time, and situation. Cranial nerves II-XII grossly intact. Motor strength 5/5 in all extremities. Sensory grossly intact. Cerebellar exam normal. Normal gait. 11:20 Head/face: Noted is Patient has small hematoma to the right occiput without laceration.. 11:20 Musculoskeletal/extremity: Extremities: grossly normal except: noted in the right leg: Patient has tenderness to the right hip and right knee. No external signs of trauma. Full range of motion but pain with range of motion noted., Circulation is intact in all extremities. Sensation intact. Vital Signs: 11:28 BP 156 / 80; Pulse 81; Resp 16; Temp 98.0; Pulse Ox 100% on R/A; iw MDM: 10:41 Patient medically screened. jr8 11:20 Data reviewed: vital signs, nurses notes, radiologic studies, plain films. Data jr8 interpreted: Pulse oximetry: on room air is 100 %. Interpretation: normal. Counseling: I had a detailed discussion with the patient and/or guardian regarding: the historical points, exam findings, and any diagnostic results supporting the discharge/admit diagnosis, radiology results, the need for outpatient follow up, a family practitioner, to return to the emergency department if symptoms worsen or persist or if there are any questions or concerns that arise at home. ED course: Discussed with patient that there is no acute findings on the CT or plain films. Recommend follow-up with physician in the next couple days. If patient were to have worsening of symptoms or signs and symptoms consistent with head injury to come back for further reevaluation. Patient understood all information given to her is good with plan.. 02/06 10:38 Order name: CT Head Brain wo Cont; Complete Time: 11:10 jr8 02/06 10:38 Order name: XRAY Hip RIGHT 2 view; Complete Time: :19 jr8 02/06 10:38 Order name: XRAY Knee RIGHT 3 view; Complete Time: 11: jr8 Administered Medications: No medications were administered Disposition: 02/07 07:04 Co-signature as Attending Physician, Feng Tian MD I agree with the assessment and trent plan of care. Disposition Summary: 02/06/21 11:22 Discharge Ordered Location: Home jr8 Problem: new jr8 Symptoms: have improved jr8 Condition: Stable jr8 Diagnosis - Unspecified superficial injury of other part of head, initial encounter jr8 - Contusion of right knee jr8 - Contusion of right hip jr8 Followup: jr8 - With: Private Physician - When: 2 - 3 days - Reason: Recheck today's complaints, Continuance of care, Re-evaluation by your physician Discharge Instructions: - Discharge Summary Sheet jr8 - Contusion jr8 - Head Injury, Adult jr8 Forms: - Medication Reconciliation Form jr8 - Thank You Letter jr8 - Work release form iw - Antibiotic Education jr8 - Prescription Opioid Use jr8 Signatures: Dispatcher [employer] EDMS Feng Tian MD MD cha Roszak, Josh, PA PA jr8
--- NOTE | 2021-02-06 11:36 | ER ---
Nurse's Notes [facility] Name: Dolores Pérez Age: 60 yrs Sex: Female : 1960 Arrival Date: 02/06/2021 Time: 10:37 Bed Waiting Private MD: Diagnosis: Unspecified superficial injury of other part of head, initial encounter;Contusion of right knee;Contusion of right hip Presentation: 02/06 11:28 Chief complaint: Patient states: slipped on garage bc the floor was wet , hit head and iw knee. Coronavirus screen: At this time, the client does not indicate any symptoms associated with coronavirus-19. Ebola Screen: Patient negative for fever greater than or equal to 101.5 degrees Fahrenheit, and additional compatible Ebola Virus Disease symptoms Patient denies exposure to infectious person. Patient denies travel to an Ebola-affected area in the 21 days before illness onset. No symptoms or risks identified at this time. Initial Sepsis Screen: Does the patient meet any 2 criteria? No. Patient's initial sepsis screen is negative. Does the patient have a suspected source of infection? No. Patient's initial sepsis screen is negative. Risk Assessment: Do you want to hurt yourself or someone else? Patient reports no desire to harm self or others. Onset of symptoms was February 06, 2021. 11:28 Method Of Arrival: EMS iw 11:28 Acuity: AARON 4 iw Screenin:30 Abuse screen: Denies threats or abuse. Denies injuries from another. Nutritional iw screening: No deficits noted. Tuberculosis screening: No symptoms or risk factors identified. Fall Risk Fall in past 12 months (25 points). Assessment: 11:29 General: Appears in no apparent distress. Behavior is calm, cooperative. Pain: iw Complains of pain in head and right leg. Vital Signs: 11:28 BP 156 / 80; Pulse 81; Resp 16; Temp 98.0; Pulse Ox 100% on R/A; iw ED Course: 10:37 Patient arrived in ED. trent 10:37 Narinder Martinez PA is PHCP. jr8 10:37 Feng Tian MD is Attending Physician. jr8 10:47 CT Head Brain wo Cont In Process Unspecified. EDMS 11:04 XRAY Hip RIGHT 2 view In Process Unspecified. EDMS 11:04 XRAY Knee RIGHT 3 view In Process Unspecified. EDMS 11:15 Shira Madrigal, RN is Primary Nurse. iw 11:29 Triage completed. iw 11:29 Arm band placed on. iw Administered Medications: No medications were administered Outcome: : Discharge ordered by . serenity 11:35 Patient left the ED. iw Signatures: Dispatcher [employer] EDWI Feng Tian MD MD cha Williams, Irene, RN RN iw Narinder Martinez PA PA jrEnoc
[2021-02-06 11:41] VITALS: BP 156/80; TEMP 98; O2SAT 100
== END 2021-02-06 11:35 | disposition home or self-care (01) ==
LOC: ER 10:35
DX: S00.80XA Unspecified superficial injury of other part of head, initial encounter (principal); S80.01XA Contusion of right knee, initial encounter; S70.01XA Contusion of right hip, initial encounter; W01.0XXA Fall on same level from slipping, tripping and stumbling without subsequent striking against object, initial encounter
CPT/HCPCS: 70450; 99283

== ENCOUNTER 2021-12-01 09:57 | Emergency (ER) | payer OTHER ==
--- OUTSIDE RECORDS SUMMARY | 2021-12-01 10:04 | XMS REPORT | Continuity of Care Document ---
:1960 Author Organization [facility] t Address [address] [place] [id number] Care Team Providers Name Role Phone Torres DUNHAM Primary Care Physician Unavailable KRYSTLE Attending Clinician Unavailable Krystle CEE Attending Clinician Doctor Unassigned, Name Attending Clinician Unavailable Jeremiah STANLEY, T Attending Clinician Unavailable LEDESMA, R Attending Clinician Unavailable Ledesma FELIPA R Attending Clinician EBRAHIM Attending Clinician Unavailable Ebrahim SALES LEDGER ADMINISTRATOR Attending Clinician YANE Attending Clinician Unavailable Leonarda Jiménez Attending Clinician Yane BARON Attending Clinician LUIS MANUEL Attending Clinician Unavailable Lab, Fam Pob I Attending Clinician Unavailable Luis Manuel SALES LEDGER ADMINISTRATOR Attending Clinician Arjun Berg DO Attending Clinician Shannon CEE, F Attending Clinician Nikolas BARON Attending Clinician KRYSTLE Admitting Clinician Unavailable LEDESMA, R Admitting Clinician Unavailable EBRAHIM Admitting Clinician Unavailable YANE Admitting Clinician Unavailable Yane BARON Admitting Clinician Payers Payer Name Policy Type Policy Number Effective Date Expiration Date Teodora FALK II [id number] 2016 00:00:00 Problems Condition Condition Condition Status Onset Resolution Last Treating Co mments Source Name Details Category Date Date Treatment Clinician Date Primary Primary Disease Active 2020-07 [facility] hypertensi hypertensi 1-14 it y of on on 00:00: [place] [facility] Other Other Disease Active 2020-07 [facility] hyperlipid hyperlipid 1-14 it y of emia emia 00:00: [place] 00 [facility] 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 1-14 ity of ischemic ischemic 00:00: [place] stroke stroke 00 Medical Branch Chest pain Chest pain Disease Active 2020-07 U nivers 1-13 ity of 00:00: [place] 00 [facility] Primary Primary Disease Active Univers hypothyroi hypothyroi 4-10 it y of dism dism 00:00: [place] 00 [facility] Primary Primary Disease Active [facility] hypothyroi hypothyroi 4-10 it y of dism dism 00:00: [place] 00 [facility] Allergies, Adverse Reactions, Alerts Allergy Allergy Status Severity Reaction(s) Onset Inactive Treating Comm ents Source Name Type Date Date Clinician NAPROXEN DRUG Active Rash 2020-07 Univers SODIUM INGREDI 1-13 ity of 00:00: [place] 00 [facility] METFORMI DRUG Active Diarrhea 2020-07 Univer s N INGREDI 1-13 ity of 00:00: [place] 00 Medical [facility] Naproxen Propensi Active Rash 2020-07 Able to Unive rs Sodium ty to 1-13 take ity of adverse 00:00: ibuprofen [place] reaction and asa Medical s Branch Metformi Propensi Active Diarrhea 2020-07 Univ ers n ty to 1-13 ity of adverse 00:00: [place] reaction 00 Medical s Branch SESAME Drug Active Anaphylaxis Unive rs Class 9-05 ity of 00:00: [place] 00 Medical Branch Sesame Propensi Active Anaphylaxis Uni vers ty to 9-05 ity of adverse 00:00: [place] reaction 00 Medical s Branch PEANUT DRUG Active Anaphylaxis 2017-07 Unive rs INGREDI 0-06 ity of 00:00: [place] 00 Medical Branch PREDNISO DRUG Active Other-Cmnt 2017-07 Univ ers NE INGREDI 0-06 ity of 00:00: [place] 00 Medical Branch Peanut Propensi Active Anaphylaxis 2017-07 Uni vers ty to 0-06 ity of adverse 00:00: [place] reaction 00 Medical s Branch Predniso Propensi Active Other - See 2017-07 Leg U nivers ne ty to comments 0-06 cramps ity of adverse 00:00: [place] reaction 00 Medical s Branch Sulfa Propensi Active Rash 2017- Univers (Sulfona ty to 4-10 ity of mide adverse 00:00: [place] Antibiot reaction 00 Medica l ics) s Branch ASPIRIN DRUG Active Unknown-Cmnt Uni vers INGREDI 4-10 ity of 00:00: [place] 00 Medical Branch NSAIDS Drug Active Hives Univers (NON-RYAN Class 4-10 ity of ROIDAL 00:00: [place] ANTI-INF 00 Medical LAMMATOR Branch Y DRUG) SULFA Drug Active Rash Univers (SULFONA Class 4-10 ity of MIDE 00:00: [place] ANTIBIOT 00 Medical ICS) Branch Aspirin Propensi Active Rash Univers ty to 4-10 ity of adverse 00:00: [place] reaction Medical s Branch Nsaids Propensi Active Hives Univers (Non-Ryan ty to 4-10 ity of roidal adverse 00:00: [place] Anti-Inf reaction 00 Medica l lammator s Branch y Drug) Social History Social Habit Start Date Stop Date Quantity Comments Source Exposure to Not sure [facility] SARS-CoV-2 (event) [facility] Tobacco use and 2017-10-14 2017-10-14 Never used [facility] exposure 00:00:00 00:00:00 Medical [place] Sex [birth year] At [birth year] [facility] 00:00:00 00:00:00 Medical [place] [facility] Smoking Status Start Date Stop Date Source Never smoker [facility] Medications Ordered Filled Start Stop Current Ordering Indication Dosage Frequency Signature Comments Components Source Medication Medication Date Date Medication? Clinician (SIG) Name Name benzonatate Yes [id number] 100mg Take 1 Univers 100 mg 2-01 capsule by ity of capsule 00:00: mouth 3 00 (three) Medical times Branch daily as needed for Cough. benzonatate Yes [id number] 100mg Take 1 [facility] 100 mg 2-01 capsule by ity of capsule 00:00: mouth 3 00 (three) Medical times Branch daily as needed for Cough. benzonatate Yes [id number] 100mg Take 1 [facility] 100 mg 2-01 capsule by ity of capsule 00:00: mouth 3 [place] 00 (three) Medical times Branch daily as needed for Cough. benzonatate Yes [id number] 100mg Take 1 [facility] 100 mg 2-01 capsule by ity of capsule 00:00: mouth 3 [place] 00 (three) Medical times Branch daily as needed for Cough. ampicillin- 2020-07- No 3g 3 g, IV Un brice sulbactam 2-25 12-25 Piggyback, ity of (UNASYN) 3 01:00: 00:47 ONCE, 1 [place] as g in NaCl 00 :00 dose, On Medica l 0.9% (NS) Fri Branch 100 mL 06/29/21 MINI-BAG at 1900, Administer over 30 Minutes, 100 mL
R varsha for Anti-Infec tive: Documented Infection< br>Documen zoila Infection Site: Abdominal< br>Dura tion of Therapy: Other (see Comments) iopamidol 2020-07- No [id number] 120mL 120 mL, Univers (ISOVUE 2-25 12-24 Intravenou ity o f 370-500 mL) 00:15: 23:08 s, ONCE, 1 [place] injection 00 :00 dose, On Medica l 120 mL Fri Branch 06/29/21 at 1815, Routine amoxicillin 2020-07- No [id number] 1{tbl} Take 1 Univers -clavulanat 2-24 -04 tablet by it y of e 875-125 00:00: 05:59 mouth [place] mg per 00 :00 every 12 Medical tablet (twelve) Branch hours for 10 days. traMADoL 50 2020-07- No [id number] 50mg Take 1 Uni vers mg tablet 2-24 12-30 tablet by ity of 00:00: 05:59 mouth [place] 00 :00 every 6 Medical (six) Branch hours for 5 days. Indication s: acute pain ondansetron 2020-07- No [id number] 4mg Take 1 Univers 4 mg tablet 2-24 12-30 tablet by it y of 00:00: 05:59 mouth [place] 00 :00 every 8 Medical (eight) Branch hours for 5 days. atorvastati 2020-07 Yes 10mg 10 mg, Univ ers n (LIPITOR) 1-15 Oral, QHS, it y of tablet 10 03:00: First dose [place] mg 00 on [facility] 05/20/21 Branch at 2100, Until Discontinu ed, Routine atorvastati 2020-07 Yes 10mg Take 10 mg Univers n 10 mg 1-14 by mouth ity of tablet 17:23: at [place] 01 bedtime. Medical Branch spironolact 2020-07 Yes 25mg Take 25 mg Univers one 25 mg 1-14 by mouth 2 ity of tablet 17:23: (two) [place] 01 times Medical daily. Branch pantoprazol 2020-07 Yes 40mg Take 40 mg Univers e sodium 1-14 by mouth ity of (PANTOPRAZO 17:23: daily. [place] LE ORAL) Medical Branch magnesium 2020-07 Yes 200mg Take 200 Uni vers gluconate 1-14 mg by ity of 200 mg 17:23: mouth [place] tablet 01 daily. At Medical night as Branch per pt metformin 2020-07 Yes 500mg Take 500 Uni vers HCl 1-14 mg by ity of (METFORMIN 17:23: mouth at [place] as ORAL) 01 bedtime. Medical Branch atorvastati 2020-07 Yes 10mg Take 10 mg Univers n 10 mg 1-14 by mouth ity of tablet 17:23: at [place] 01 bedtime. Medical Branch spironolact 2020-07 Yes 25mg Take 25 mg Univers one 25 mg 1-14 by mouth 2 ity of tablet 17:23: (two) [place] 01 times Medical daily. Branch pantoprazol 2020-07 Yes 40mg Take 40 mg Univers e sodium 1-14 by mouth ity of (PANTOPRAZO 17:23: daily. [place] LE ORAL) Medical Branch magnesium 2020-07 Yes 200mg Take 200 Uni vers gluconate 1-14 mg by ity of 200 mg 17:23: mouth [place] tablet 01 daily. At Medical night as Branch per pt metformin 2020-07 Yes 500mg Take 500 Uni vers HCl 1-14 mg by ity of (METFORMIN 17:23: mouth at [place] as ORAL) 01 bedtime. Medical Branch atorvastati 2020-07 Yes 10mg Take 10 mg Univers n 10 mg 1-14 by mouth ity of tablet 17:23: at [place] bedtime. Medical Branch spironolact 2020-07 Yes 25mg Take 25 mg Univers one 25 mg 1-14 by mouth 2 ity of tablet 17:23: (two) [place] 01 times Medical daily. Branch pantoprazol 2020-07 Yes 40mg Take 40 mg Univers e sodium 1-14 by mouth ity of (PANTOPRAZO 17:23: daily. [place] LE ORAL) Medical Branch magnesium 2020-07 Yes 200mg Take 200 Uni vers gluconate 1-14 mg by ity of 200 mg 17:23: mouth [place] tablet 01 daily. At Medical night as Branch per pt metformin 2020-07 Yes 500mg Take 500 Uni vers HCl 1-14 mg by ity of (METFORMIN 17:23: mouth at Amande[place] as ORAL) bedtime. Medical Branch atorvastati 2020-07 Yes 10mg Take 10 mg Univers n 10 mg 1-14 by mouth ity of tablet 17:23: at [place] bedtime. Medical Branch spironolact 2020-07 Yes 25mg Take 25 mg Univers one 25 mg 1-14 by mouth 2 ity of tablet 17:23: (two) [place] 01 times Medical daily. Branch pantoprazol 2020-07 Yes 40mg Take 40 mg Univers e sodium 1-14 by mouth ity of (PANTOPRAZO 17:23: daily. [place] LE ORAL) Medical Branch magnesium 2020-07 Yes 200mg Take 200 Uni vers gluconate 1-14 mg by ity of 200 mg 17:23: mouth [place] tablet 01 daily. At Medical night as Branch per pt metformin 2020-07 Yes 500mg Take 500 Uni vers HCl 1-14 mg by ity of (METFORMIN 17:23: mouth at [place] as ORAL) bedtime. Medical Branch atorvastati 2020-07 Yes 10mg Take 10 mg Univers n 10 mg 1-14 by mouth ity of tablet 17:23: at [place] bedtime. Medical Branch spironolact 2020-07 Yes 25mg Take 25 mg Univers one 25 mg 1-14 by mouth 2 ity of tablet 17:23: (two) [place] 01 times Medical daily. Branch pantoprazol 2020-07 Yes 40mg Take 40 mg Univers e sodium 1-14 by mouth ity of (PANTOPRAZO 17:23: daily. [place] LE ORAL) Medical Branch magnesium 2020-07 Yes 200mg Take 200 Uni vers gluconate 1-14 mg by ity of 200 mg 17:23: mouth [place] tablet 01 daily. At Medical night as Branch per pt metformin 2020-07 Yes 500mg Take 500 Uni vers HCl 1-14 mg by ity of (METFORMIN 17:23: mouth at [place] as ORAL) 01 bedtime. Medical Branch atorvastati 2020-07 Yes 10mg Take 10 mg Univers n 10 mg 1-14 by mouth ity of tablet 17:23: at [place] 01 bedtime. Medical Branch spironolact 2020-07 Yes 25mg Take 25 mg Univers one 25 mg 1-14 by mouth 2 ity of tablet 17:23: (two) [place] 01 times Medical daily. Branch pantoprazol 2020-07 Yes 40mg Take 40 mg Univers e sodium 1-14 by mouth ity of (PANTOPRAZO 17:23: daily. [place] LE ORAL) Medical Branch magnesium 2020-07 Yes 200mg Take 200 Uni vers gluconate 1-14 mg by ity of 200 mg 17:23: mouth [place] tablet daily. At Medical night as Branch per pt metformin 2020-07 Yes 500mg Take 500 Uni vers HCl 1-14 mg by ity of (METFORMIN 17:23: mouth at [place] as ORAL) bedtime. Medical Branch atorvastati 2020-07 Yes 10mg Take 10 mg Univers n 10 mg 1-14 by mouth ity of tablet 17:23: at [place] bedtime. Medical Branch spironolact 2020-07 Yes 25mg Take 25 mg Univers one 25 mg 1-14 by mouth 2 ity of tablet 17:23: (two) [place] 01 times Medical daily. Branch pantoprazol 2020-07 Yes 40mg Take 40 mg Univers e sodium 1-14 by mouth ity of (PANTOPRAZO 17:23: daily. [place] LE ORAL) Medical Branch magnesium 2020-07 Yes 200mg Take 200 Uni vers gluconate 1-14 mg by ity of 200 mg 17:23: mouth [place] tablet 01 daily. At Medical night as Branch per pt metformin 2020-07 Yes 500mg Take 500 Uni vers HCl 1-14 mg by ity of (METFORMIN 17:23: mouth at [place] as ORAL) bedtime. Medical Branch enoxaparin 2020-07 Yes 40mg 40 mg, Unive rs (LOVENOX) 1-14 Subcutaneo ity of injection 15:00: us, DAILY, [place] 40 mg 00 First dose Medical on [place] [facility] 05/20/21 at 0900, Until Discontinu ed, Routine clopidogreL 2020-07 Yes 75mg 75 mg, Univ ers (PLAVIX) 1-14 Oral, QAM, ity o f tablet 75 15:00: First dose [place] mg 00 on [facility] 05/20/21 Branch at 0900, Until Discontinu ed, Routine ALPRAZolam 2020-07 Yes .5mg 0.5 mg, Univ ers (XANAX) 1-14 Oral, ity of tablet 0.5 15:00: DAILY, [place] mg 00 First dose Medical on [place] [facility] 05/20/21 at 0900, Until Discontinu ed, Routine spironolact 2020-07 Yes 25mg 25 mg, Univ ers one 1-14 Oral, BID, ity of (ALDACTONE) 14:00: First dose [place] tablet 25 00 on [facility] 05/20/21 Branch at 0800, Until Discontinu ed, Routine Sliding 2020-07 Yes Subcutaneo Univ ers Scale 1-14 us, AC, ity of Insulin-Reg 13:30: First dose [place] ular + Fsbg 00 on [facility] Medica l Testing 05/20/21 Branch at 0730, Until Discontinu ed, Routine levothyroxi 2020-07 Yes 100ug 100 mcg, U nivers ne 1-14 Oral, ity of (SYNTHROID) 12:00: QAM-0600, [place] tablet 100 00 First dose Med ical mcg on [place] [facility] 05/20/21 at 0600, Until Discontinu ed, Routine pantoprazol 2020-07 Yes 40mg 40 mg, Univ ers e 1-14 Oral, ity of (PROTONIX) 06:30: DAILY, [place] EC tablet 00 First dose Medi hermelindo 40 mg (after Branch last modificati on) on 05/20/21 at 0030, Until Discontinu ed cyclobenzap 2020-07 Yes 10mg 10 mg, Univ ers rine 1-14 Oral, ity of (FLEXERIL) 06:12: TIDPRN, [place] tablet 10 13 Starting Medica l mg on [facility] 05/20/21 at 0012, Until Discontinu ed, Routine, Muscle Spasms, leg pain polyethylen 2020-07 Yes 17g 17 g, Unive rs e glycol 1-14 Oral, ity of 3350 powder 06:04: [id number], [place] 17 g 16 Starting Medical on [facility] 05/20/21 at 0004, Until Discontinu ed, Routine, Constipati on glucagon 2020-07 Yes 1mg 1 mg, Univers (GLUCAGEN 14 Intramuscu ity of DIAGNOSTIC 05:29: lar, PRN, [place] KIT) 29 Starting Medical injection 1 on [facility] 05/19/21 at 2329, Until Discontinu ed, JEFFREY, Blood Glucose < or = 70 mg/dL and patient is unable to swallow or has mental changes. dextrose 50 2020-07 Yes 25mL 25 mL, Univ ers % in water 14 Slow IV ity of (D50W) 05:29: Push, PRN, [place] injection 29 Starting Medica l 25 mL on [facility] 05/19/21 at 2329, Until Discontinu ed, JEFFREY, Blood Glucose < or = 70 mg/dL and patient is unable to swallow or has mental status changes. ondansetron 2020-07 Yes 4mg 4 mg, Slow Univers (ZOFRAN 14 IV Push, ity of (PF)) 05:29: Q6HPRN, [place] injection 4 21 Starting Medi hermelindo mg on [facility] 05/19/21 at 2329, Until Discontinu ed, Routine, Nausea and Vomiting (N/V) morpHINE 2020-07- No 2mg 2 mg, Slow Un brice injection 2 14 11-15 IV Push, ity of mg 05:29: 05:28 Q4HPRN, [place] 11 :11 Starting Medical on [facility] 05/19/21 at 2329, Until [place] 05/20/21 at 2328, Routine, Pain (scale 7-10), Chest pain traMADoL 2020-07- No 50mg 50 mg, Univer s (ULTRAM) 1-14 11-16 Oral, ity of tablet 50 05:29: 05:28 Q8HPRN, [place] mg 08 :08 Starting Medical on [facility] 05/19/21 at 2329, Until 05/21/21 at 2328, Routine, Pain (scale 4-6) acetaminoph 2020-07 Yes 650mg 650 mg, Un brice en 1-14 Oral, ity of (TYLENOL) 05:29: Q6HPRN, [place] tablet 650 05 Starting Medic al mg on [facility] Branch 05/19/21 at 2329, Until Discontinu ed, Routine, Pain (scale 1-3) omeprazole 2020-07- No 20mg Take 20 mg Univers 20 mg 07-19 by mouth ity of capsule 23:30: 00:00 daily. [place] 33 :00 [facility] guaiFENesin 2020- No 100mg 100 mg, U nivers 100 mg/5 mL 09-14 Oral, ity of solution 05:00: 16:59 ONCE, 1 [place] 100 mg 00 :00 dose, [facility] 09/13/20 at Branch 2300, Routine ketorolac 2020- No 30mg 30 mg, Unive rs (TORADOL) 09-14 Slow IV ity of injection 03:30: 02:27 Push, [place] 30 mg 00 :00 ONCE, 1 Medical dose, [facility] 09/13/20 at 2130, JEFFREY
Fa maria parham healthy member approving Restricted medication : DIANA BERG benzonatate Yes [id number] 100mg Take 1 Univers 100 mg 3-10 capsule by ity of capsule 00:00: mouth 3 [place] 00 (three) Medical times Branch daily as needed for Cough. benzonatate Yes [id number] 100mg Take 1 Univers 100 mg 3-10 capsule by ity of capsule 00:00: mouth 3 [place] 00 (three) Medical times Branch daily as needed for Cough. benzonatate 2020- No [id number] 100mg Take 1 Univers 100 mg 3-10 - capsule by ity of capsule 00:00: 00:00 mouth 3 [place] 00 :00 (three) Medical times Branch daily as needed for Cough. ipratropium 2020- No 6mL 6 mL, Univ ers -albuterol 07-28 Inhalation it y of (DUONEB) 02:15: 01:21 , ONCE, 1 [place] as 0.5 mg-3 00 :00 dose, Tue Medica l mg(2.5 mg 07/27/19 at Bran ch base)/3 mL 2014, nebulizer Routine solution 6 mL codeine-gua 2020-0 2020- No 10mL 10 mL, Uni vers ifenesin 07-28 Oral, ity of (ROBITUSSIN 01:30: 00:55 ONCE, 1 [place] AC) 10-100 00 :00 dose, Tue Medi hermelindo mg/5 mL 07/27/19 at Branch solution 10 0, JEFFREY mL codeine-gua 2020-0 Yes [id number] 10mL Take 10 mL Univers ifenesin 07-27 by mouth ity of 10-100 mg/5 00:00: every 6 [place] as mL solution 00 (six) Medical hours as Branch needed for Cough. albuterol 2020-0 Yes [id number] 2.5mg Inhale 3 Univers 2.5 mg /3 1-21 mL every 4 ity of mL (0.083 00:00: (four) [place] %) 00 hours as Medical nebulizer needed for Bran ch solution Wheezing or Shortness of Breath. May also nebulize one extra every 6 hours. albuterol 2020-0 Yes [id number] 2.5mg Inhale 3 Univers 2.5 mg /3 1-21 mL every 4 ity of mL (0.083 00:00: (four) [place] %) 00 hours as Medical nebulizer needed for Bran ch solution Wheezing or Shortness of Breath. May also nebulize one extra every 6 hours. albuterol 2020-0 Yes [id number] 2.5mg Inhale 3 Univers 2.5 mg /3 1-21 mL every 4 ity of mL (0.083 00:00: (four) [place] %) 00 hours as Medical nebulizer needed for Bran ch solution Wheezing or Shortness of Breath. May also nebulize one extra every 6 hours. albuterol 2020-0 Yes [id number] 2.5mg Inhale 3 Univers 2.5 mg /3 1-21 mL every 4 ity of mL (0.083 00:00: (four) [place] %) 00 hours as Medical nebulizer needed for Bran ch solution Wheezing or Shortness of Breath. May also nebulize one extra every 6 hours. albuterol 2020-0 Yes [id number] 2.5mg Inhale 3 Univers 2.5 mg /3 1-21 mL every 4 ity of mL (0.083 00:00: (four) [place] %) 00 hours as Medical nebulizer needed for Bran ch solution Wheezing or Shortness of Breath. May also nebulize one extra every 6 hours. albuterol 2020-0 Yes [id number] 2.5mg Inhale 3 Univers 2.5 mg /3 1-21 mL every 4 ity of mL (0.083 00:00: (four) [place] %) 00 hours as Medical nebulizer needed for Bran ch solution Wheezing or Shortness of Breath. May also nebulize one extra every 6 hours. albuterol 2020-0 Yes [id number] 2.5mg Inhale 3 Univers 2.5 mg /3 1-21 mL every 4 ity of mL (0.083 00:00: (four) [place] %) 00 hours as Medical nebulizer needed for Bran ch solution Wheezing or Shortness of Breath. May also nebulize one extra every 6 hours. albuterol 2020-0 Yes [id number] 2.5mg Inhale 3 Univers 2.5 mg /3 1-21 mL every 4 ity of mL (0.083 00:00: (four) [place] %) 00 hours as Medical nebulizer needed for Bran ch solution Wheezing or Shortness of Breath. May also nebulize one extra every 6 hours. albuterol 2020-0 Yes [id number] 2.5mg Inhale 3 Univers 2.5 mg /3 1-21 mL every 4 ity of mL (0.083 00:00: (four) [place] %) 00 hours as Medical nebulizer needed for Bran ch solution Wheezing or Shortness of Breath. May also nebulize one extra every 6 hours. albuterol 2020-0 Yes [id number] 2.5mg Inhale 3 Univers 2.5 mg /3 1-21 mL every 4 ity of mL (0.083 00:00: (four) [place] %) 00 hours as Medical nebulizer needed for Bran ch solution Wheezing or Shortness of Breath. May also nebulize one extra every 6 hours. codeine-gua 2019-0 2020- No [id number] 10mL Take 10 mL Univers ifenesin 1-21 03-10 by mouth ity of 10-100 mg/5 00:00: 00:00 every 6 [place] mL solution 00 :00 (six) Medical hours as Branch needed for Cough. ondansetron 2018- 2019- No 4mg 4 mg, Slow Univers (ZOFRAN 03-1105 IV Push, ity of (PF)) 20:30: 19:53 ONCE, 1 [place] injection 4 00 :00 dose, [place] Med ical mg 03/11/19 at Branch 1530, JEFFREY NaCl 0.9% 2019- No 1000mL at 999 Uni vers (NS) bolus 03-11 mL/hr, ity of infusion 19:30: 20:56 1,000 mL, [place] as 1,000 mL 00 :00 IV Medical Infusion, Branch ONCE, 1 dose, [place] 03/11/19 at 1430, JEFFREY dicyclomine 2019-0 Yes [id number] 10mg Take 1 Univers (BENTYL) 10 9-05 capsule by it y of mg capsule 00:00: mouth 4 [place] 00 (four) Medical times Branch daily. ondansetron 2019-0 Yes [id number] 4mg Take 1 Univers 4 mg 9-05 tablet by ity of disintegrat 00:00: mouth [place] ing tablet 00 every 4 Medica l (four) Branch hours as needed for Nausea and Vomiting (N/V). dicyclomine 2019-0 Yes [id number] 10mg Take 1 Univers (BENTYL) 10 9-05 capsule by it y of mg capsule 00:00: mouth 4 [place] 00 (four) Medical times Branch daily. ondansetron 2019-0 Yes [id number] 4mg Take 1 Univers 4 mg 9-05 tablet by ity of disintegrat 00:00: mouth [place] ing tablet 00 every 4 Medica l (four) Branch hours as needed for Nausea and Vomiting (N/V). dicyclomine 2019-0 Yes [id number] 10mg Take 1 Univers (BENTYL) 10 9-05 capsule by it y of mg capsule 00:00: mouth 4 [place] 00 (four) Medical times Branch daily. ondansetron 2019-0 Yes [id number] 4mg Take 1 Univers 4 mg 9-05 tablet by ity of disintegrat 00:00: mouth [place] ing tablet 00 every 4 Medica l (four) Branch hours as needed for Nausea and Vomiting (N/V). dicyclomine 2020- No [id number] 10mg Take 1 Univers (BENTYL) 10 - 03-10 capsule by i ty of mg capsule 00:00: 00:00 mouth 4 [place] as 00 :00 (four) Medical times Branch daily. ondansetron 2020- No [id number] 4mg Take 1 Univers 4 mg 9-05 03-10 tablet by ity of disintegrat 00:00: 00:00 mouth [place] tablet 00 :00 every 4 Medica l (four) Branch hours as needed for Nausea and Vomiting (N/V). benzonatate 2017-07 Yes 100mg Take 1 Uni vers 100 mg 0-06 capsule by ity of capsule 00:00: mouth 3 (three) Medical times Branch daily as needed for Cough. acetaminoph 2017-07 Yes 1{tbl} Take 1 Un brice en-codeine 0-06 tablet by ity of (TYLENOL-CO 00:00: mouth [place] DEINE #3) 00 every 4 Medical 300-30 mg (four) Branch tablet hours as needed for Pain (scale 7-10). acetaminoph 2017-07 Yes 1{tbl} Take 1 Un brice en-codeine 0-06 tablet by ity of (TYLENOL-CO 00:00: mouth [place] DEINE #3) 00 every 4 Medical 300-30 mg (four) Branch tablet hours as needed for Pain (scale 7-10). benzonatate 2017-07 Yes 100mg Take 1 Uni vers 100 mg 0-06 capsule by ity of capsule 00:00: mouth 3 00 (three) Medical times Branch daily as needed for Cough. acetaminoph 2017-07 Yes 1{tbl} Take 1 Un brice en-codeine 0-06 tablet by ity of (TYLENOL-CO 00:00: mouth [place] DEINE #3) 00 every 4 Medical 300-30 mg (four) Branch tablet hours as needed for Pain (scale 7-10). acetaminoph 2017-07 Yes 1{tbl} Take 1 Un brice en-codeine 0-06 tablet by ity of (TYLENOL-CO 00:00: mouth [place] DEINE #3) 00 every 4 Medical 300-30 mg (four) Branch tablet hours as needed for Pain (scale 7-10). benzonatate 2017-07 Yes 100mg Take 1 Uni vers 100 mg 0-06 capsule by ity of capsule 00:00: mouth 3 [place] 00 (three) Medical times Branch daily as needed for Cough. acetaminoph 2017-07 Yes 1{tbl} Take 1 Un brice en-codeine 0-06 tablet by ity of (TYLENOL-CO 00:00: mouth [place] DEINE #3) 00 every 4 Medical 300-30 mg (four) Branch tablet hours as needed for Pain (scale 7-10). acetaminoph 2017-07 Yes 1{tbl} Take 1 Un brice en-codeine 0-06 tablet by ity of (TYLENOL-CO 00:00: mouth [place] DEINE #3) 00 every 4 Medical 300-30 mg (four) Branch tablet hours as needed for Pain (scale 7-10). benzonatate 2017-07- No 100mg Take 1 Un brice 100 mg 0-06 03-10 capsule by ity of capsule 00:00: 00:00 mouth 3 [place] 00 :00 (three) Medical times Branch daily as needed for Cough. acetaminoph 2017-07- No 1{tbl} Take 1 U nivers en-codeine 0-06 03-10 tablet by ity of (TYLENOL-CO 00:00: 00:00 mouth [place] DEINE #3) 00 :00 every 4 Medical 300-30 mg (four) Branch tablet hours as needed for Pain (scale 7-10). acetaminoph 2017-07- No 1{tbl} Take 1 U nivers en-codeine 0-06 03-10 tablet by ity of (TYLENOL-CO 00:00: 00:00 mouth [place] DEINE #3) 00 :00 every 4 Medical 300-30 mg (four) Branch tablet hours as needed for Pain (scale 7-10). atorvastati Yes 10mg Take 10 mg Univers n 10 mg 4-10 by mouth ity of tablet 14:40: at [place] [address] bedtime. Medical Branch omeprazole Yes 20mg Take 20 mg U nivers 20 mg 4-10 by mouth ity of capsule 14:40: daily. [place] [address] Medical Branch atorvastati Yes 10mg Take 10 mg Univers n 10 mg 4-10 by mouth ity of tablet 14:40: at [place] [address] bedtime. Medical Branch omeprazole 2018-0 Yes 20mg Take 20 mg U nivers 20 mg 4-10 by mouth ity of capsule 14:40: daily. [place] [address] Medical Branch atorvastati 2017-0 Yes 10mg Take 10 mg Univers n 10 mg 4-10 by mouth ity of tablet 14:40: at [place] [address] bedtime. Medical Branch omeprazole 2018-0 Yes 20mg Take 20 mg U nivers 20 mg 4-10 by mouth ity of capsule 14:40: daily. [place] [address] Medical Branch atorvastati 2017-0 Yes 10mg Take 10 mg Univers n 10 mg 4-10 by mouth ity of tablet 14:40: at [place] [address] bedtime. Medical Branch omeprazole 2018-0 Yes 20mg Take 20 mg U nivers 20 mg 4-10 by mouth ity of capsule 14:40: daily. [place] [address] Medical Branch atorvastati 2017-0 Yes 10mg Take 10 mg Univers n 10 mg 4-10 by mouth ity of tablet 14:40: at [place] [address] bedtime. Medical Branch omeprazole 2017-0 Yes 20mg Take 20 mg U nivers 20 mg 4-10 by mouth ity of capsule 14:40: daily. [place] [address] Medical Branch levothyroxi 2018-0 Yes TAKE 1 Univ ers ne 125 mcg 4-10 TABLET BY ity of tablet 00:00: MOUTH [place] 00 EVERY Medical MORNING Branch levothyroxi 2018-0 Yes TAKE 1 Univ ers ne 125 mcg 4-10 TABLET BY ity of tablet 00:00: MOUTH [place] EVERY Medical MORNING Branch levothyroxi 2018-0 Yes TAKE 1 Univ ers ne 125 mcg 4-10 TABLET BY ity of tablet 00:00: MOUTH [place] 00 EVERY Medical MORNING Branch levothyroxi 2018-0 Yes TAKE 1 Univ ers ne 125 mcg 4-10 TABLET BY ity of tablet 00:00: MOUTH [place] EVERY Medical MORNING Branch levothyroxi 2018-0 Yes TAKE 1 Univ ers ne 125 mcg 4-10 TABLET BY ity of tablet 00:00: MOUTH [place] EVERY Medical MORNING Branch levothyroxi 2018-0 Yes TAKE 1 Univ ers ne 125 mcg 4-10 TABLET BY ity of tablet 00:00: MOUTH [place] EVERY Medical MORNING Branch levothyroxi 2018-0 Yes TAKE 1 Univ ers ne 125 mcg 4-10 TABLET BY ity of tablet 00:00: MOUTH [place] 00 EVERY Medical MORNING Branch levothyroxi 2018 Yes TAKE 1 Univ ers ne 125 mcg 4-10 TABLET BY ity of tablet 00:00: MOUTH 00 EVERY Medical MORNING Branch levothyroxi Yes TAKE 1 Univ ers ne 125 mcg 4-10 TABLET BY ity of tablet 00:00: MOUTH EVERY Medical MORNING Branch levothyroxi Yes TAKE 1 Univ ers ne 125 mcg 4-10 TABLET BY ity of tablet 00:00: MOUTH EVERY Medical MORNING Branch levothyroxi Yes TAKE 1 Univ ers ne 125 mcg 4-10 TABLET BY ity of tablet 00:00: MOUTH EVERY Medical MORNING Branch levothyroxi Yes TAKE 1 Univ ers ne 125 mcg 4-10 TABLET BY ity of tablet 00:00: MOUTH 00 EVERY Medical MORNING Branch SYMBICORT Yes TAKE 2 Univer s 160-4.5 3-28 PUFFS BY ity of mcg/actuati 00:00: MOUTH [place] on inhaler 00 TWICE A Medica l DAY Branch SYMBICORT Yes TAKE 2 Univer s 160-4.5 3-28 PUFFS BY ity of mcg/actuati 00:00: MOUTH [place] on inhaler 00 TWICE A Medica l DAY Branch SYMBICORT 0 Yes TAKE 2 Univer s 160-4.5 3-28 PUFFS BY ity of mcg/actuati 00:00: MOUTH [place] on inhaler 00 TWICE A Medica l DAY Branch SYMBICORT 0 Yes TAKE 2 Univer s 160-4.5 3-28 PUFFS BY ity of mcg/actuati 00:00: MOUTH [place] on inhaler 00 TWICE A Medica l DAY Branch SYMBICORT 0 Yes TAKE 2 Univer s 160-4.5 3-28 PUFFS BY ity of mcg/actuati 00:00: MOUTH [place] on inhaler 00 TWICE A Medica l DAY Branch SYMBICORT 0 2020- No TAKE 2 Unive rs 160-4.5 3-28 11-13 PUFFS BY ity of mcg/actuati 00:00: 00:00 M[place]TH [place] inhaler 00 :00 TWICE A Medica l DAY Branch ALPRAZolam 2018-0 Yes TAKE 1 Unive rs 0.25 mg 3-27 TABLET BY ity of tablet 00:00: MOUTH [place] 00 EVERY DAY Medical NEEDED Branch diltiazem Yes TAKE 1 Univer s 60 mg 3-27 TABLET BY ity of tablet 00:00: MOUTH [place] 00 TWICE A Medical DAY Branch ALPRAZolam Yes TAKE 1 Unive rs 0.25 mg 3-27 TABLET BY ity of tablet 00:00: MOUTH [place] 00 EVERY DAY Medical NEEDED Branch diltiazem Yes TAKE 1 Univer s 60 mg 3-27 TABLET BY ity of tablet 00:00: MOUTH [place] 00 TWICE A Medical DAY Branch ALPRAZolam Yes .5mg Take 0.5 Uni vers 0.25 mg 3-27 mg by ity of tablet 00:00: mouth [place] 00 daily. Pt Medical taking Branch 0.5mg daily ALPRAZolam Yes .5mg Take 0.5 Uni vers 0.25 mg 3-27 mg by ity of tablet 00:00: mouth [place] 00 daily. Pt Medical taking Branch 0.5mg daily ALPRAZolam Yes .5mg Take 0.5 Uni vers 0.25 mg 3-27 mg by ity of tablet 00:00: mouth [place] 00 daily. Pt Medical taking Branch 0.5mg daily ALPRAZolam Yes TAKE 1 Unive rs 0.25 mg 3-27 TABLET BY ity of tablet 00:00: MOUTH [place] 00 EVERY DAY Medical NEEDED Branch ALPRAZolam Yes .5mg Take 0.5 Uni vers 0.25 mg 3-27 mg by ity of tablet 00:00: mouth [place] 00 daily. Pt Medical taking Branch 0.5mg daily diltiazem Yes TAKE 1 Univer s 60 mg 3-27 TABLET BY ity of tablet 00:00: MOUTH [place] 00 TWICE A Medical DAY Branch ALPRAZolam Yes .5mg Take 0.5 Uni vers 0.25 mg 3-27 mg by ity of tablet 00:00: mouth [place] 00 daily. Pt Medical taking Branch 0.5mg daily ALPRAZolam Yes .5mg Take 0.5 Uni vers 0.25 mg 3-27 mg by ity of tablet 00:00: mouth [place] 00 daily. Pt Medical taking Branch 0.5mg daily ALPRAZolam Yes .5mg Take 0.5 Uni vers 0.25 mg 3-27 mg by ity of tablet 00:00: mouth [place] 00 daily. Pt Medical taking Branch 0.5mg daily ALPRAZolam Yes TAKE 1 Unive rs 0.25 mg 3-27 TABLET BY ity of tablet 00:00: MOUTH [place] 00 EVERY DAY Medical NEEDED Branch diltiazem Yes TAKE 1 Univer s 60 mg 3-27 TABLET BY ity of tablet 00:00: MOUTH [place] 00 TWICE A Medical DAY Branch ALPRAZolam Yes TAKE 1 Unive rs 0.25 mg 3-27 TABLET BY ity of tablet 00:00: MOUTH [place] 00 EVERY DAY Medical NEEDED Branch diltiazem Yes TAKE 1 Univer s 60 mg 3-27 TABLET BY ity of tablet 00:00: MOUTH [place] 00 TWICE A Medical DAY Branch diltiazem 2020- No TAKE 1 Unive rs 60 mg 3-27 11-13 TABLET BY ity of tablet 00:00: 00:00 MOUTH [place] 00 :00 TWICE A Medical DAY Branch losartan 25 Yes TAKE 1 Univ ers mg tablet 2-16 TABLET BY ity o f 00:00: MOUTH [place] 00 EVERY Medical MORNING Branch losartan 25 Yes TAKE 1 Univ ers mg tablet 2-16 TABLET BY ity o f 00:00: MOUTH [place] 00 EVERY Medical MORNING Branch losartan 25 Yes TAKE 1 Univ ers mg tablet 2-16 TABLET BY ity o f 00:00: MOUTH [place] 00 EVERY Medical MORNING Branch losartan 25 Yes TAKE 1 Univ ers mg tablet 2-16 TABLET BY ity o f 00:00: MOUTH [place] 00 EVERY Medical MORNING Branch losartan 25 Yes TAKE 1 Univ ers mg tablet 2-16 TABLET BY ity o f 00:00: MOUTH [place] 00 EVERY Medical MORNING Branch losartan 25 0 1- No TAKE 1 Uni vers mg tablet 2-16 11-13 TABLET BY ity of 00:00: 00:00 MOUTH [place] 00 :00 EVERY Medical MORNING Branch clopidogrel Yes TAKE 1 Univ ers 75 mg 2-06 TABLET BY ity of tablet 00:00: MOUTH [place] 00 EVERY Medical MORNING Branch clopidogrel Yes TAKE 1 Univ ers 75 mg 2-06 TABLET BY ity of tablet 00:00: MOUTH [place] 00 EVERY Medical MORNING Branch clopidogrel 2018-0 Yes TAKE 1 Univ ers 75 mg 2-06 TABLET BY ity of tablet 00:00: MOUTH [place] 00 EVERY Medical MORNING Branch clopidogrel 2018-0 Yes TAKE 1 Univ ers 75 mg 2-06 TABLET BY ity of tablet 00:00: MOUTH [place] 00 EVERY Medical MORNING Branch clopidogrel 2018-0 Yes TAKE 1 Univ ers 75 mg 2-06 TABLET BY ity of tablet 00:00: MOUTH [place] 00 EVERY Medical MORNING Branch clopidogrel 2018-0 Yes TAKE 1 Univ ers 75 mg 2-06 TABLET BY ity of tablet 00:00: MOUTH [place] 00 EVERY Medical MORNING Branch clopidogrel 2018-0 Yes TAKE 1 Univ ers 75 mg 2-06 TABLET BY ity of tablet 00:00: [facility] 00 EVERY Medical MORNING Branch clopidogrel 2018-0 Yes TAKE 1 Univ ers 75 mg 2-06 TABLET BY ity of tablet 00:00: MOUTH [place] 00 EVERY Medical MORNING Branch clopidogrel 2018-0 Yes TAKE 1 Univ ers 75 mg 2-06 TABLET BY ity of tablet 00:00: [facility] 00 EVERY Medical MORNING Branch clopidogrel 2018-0 Yes TAKE 1 Univ ers 75 mg 2-06 TABLET BY ity of tablet 00:00: MOUTH [place] 00 EVERY Medical MORNING Branch clopidogrel 2018-0 Yes TAKE 1 Univ ers 75 mg 2-06 TABLET BY ity of tablet 00:00: [facility] 00 EVERY Medical MORNING Branch clopidogrel 2018-0 Yes TAKE 1 Univ ers 75 mg 2-06 TABLET BY ity of tablet 00:00: [facility] 00 EVERY Medical MORNING Branch Vital Signs Vital Name Observation Time Observation Value Comments Source Systolic blood 2021-09-02 01:52:00 132 mm[Hg] Univer sity of pressure [facility] Diastolic blood 2021-09-02 01:52:00 75 mm[Hg] Unive rsity of pressure [facility] Heart rate 2021-09-02 01:52:00 67 /min [facility] Respiratory rate 2021-09-02 01:52:00 16 /min Univ ersity [facility] Oxygen saturation in 2021-09-02 01:52:00 99 /min [facility] Arterial blood by [facility] Pulse oximetry Branch Body temperature 2021-09-01 23:57:00 36.17 Brittany Univ ersity of [place] [facility] [place] Body height 2021-09-01 23:57:00 170.2 cm Universi ty [facility] [place] [facility] Body weight 2021-09-01 23:57:00 58.968 kg [facility]i ty [facility] [place] [facility] BMI 2021-09-01 23:57:00 20.36 kg/m2 [facility] ty [facility] [place] [facility] Systolic blood 2021-08-07 15:57:00 165 mm[Hg] Univer sity of pressure [place] [facility] Diastolic blood 2021-08-07 15:57:00 71 mm[Hg] Unive rsity of pressure [place] [facility] Heart rate 2021-08-07 15:57:00 97 /min [facility]i ty [facility] [place] [facility] Body temperature 2021-08-07 15:57:00 37.44 Brittany Univ ersity of [place] [facility] Respiratory rate 2021-08-07 15:57:00 18 /min Univ ersity [facility] [place] [facility] Body height 2021-08-07 15:57:00 170.2 cm [facility]i ty [facility] [place] [facility] Body weight 2021-08-07 15:57:00 56.7 kg [facility]i ty [facility] [place] [facility] BMI 2021-08-07 15:57:00 19.58 kg/m2 Universi ty [facility] [place] [facility] Oxygen saturation in 2021-08-07 15:57:00 98 /min University of Arterial blood by [place] [employer]melindo Pulse oximetry Branch Systolic blood 2021-06-30 01:29:00 132 mm[Hg] Univer sity of pressure [place] [facility] Diastolic blood 2021-06-30 01:29:00 75 mm[Hg] Unive rsity of pressure [place] [facility] Heart rate 2021-06-30 01:29:00 75 /min Universi ty [facility] [place] [facility] Respiratory rate 2021-06-30 01:29:00 18 /min Univ ersity of [place] [facility] Oxygen saturation in 2021-06-30 01:29:00 100 /min University of Arterial blood by [place] [employer] hermelindo Pulse oximetry Branch Body temperature 2021-06-29 22:01:00 36.67 Brittany Univ ersity [facility] [place] [facility] Body weight 2021-06-29 22:01:00 53.071 kg Universi ty [facility] [place] [facility] BMI 2021-06-29 22:01:00 18.32 kg/m2 [facility]i ty [facility] [place] [facility] Systolic blood 2021-05-20 21:45:00 137 mm[Hg] Univer sity of pressure [place] [facility] Diastolic blood 2021-05-20 21:45:00 75 mm[Hg] Unive rsity of pressure [place] [facility] Heart rate 2021-05-20 21:45:00 75 /min Universi ty [facility] [place] [facility] Body temperature 2021-05-20 21:45:00 36.5 Brittany Univ ersity of [place] [facility] Respiratory rate 2021-05-20 21:45:00 16 /min Univ ersity of [place] [facility] Oxygen saturation in 2021-05-20 21:45:00 97 /min University of Arterial blood by [place] [employer]indo Pulse oximetry Branch Body weight 2021-05-20 04:14:00 53.479 kg Universi ty [facility] [place] [facility] BMI 2021-05-20 04:14:00 18.47 kg/m2 [facility] ty [facility] [place] [facility] Body height 2021-05-20 03:42:00 170.2 cm [facility]i ty [facility] [place] [facility] Systolic blood 2020-09-14 03:30:00 147 mm[Hg] Univer sity of pressure [place] [facility] Diastolic blood 2020-09-14 03:30:00 89 mm[Hg] Unive rsity of pressure [place] [facility] Heart rate 2020-09-14 03:30:00 73 /min Universi ty [facility] [place] [facility] Respiratory rate 2020-09-14 03:30:00 19 /min Univ ersity of [place] [facility] Oxygen saturation in 2020-09-14 03:30:00 97 /min University of Arterial blood by [facility] hermelindo Pulse oximetry Branch Body temperature 2020-09-14 02:10:00 36.5 Brittany Univ ersity of [place] [facility] Body height 2020-09-14 02:09:00 170.2 cm Universi ty of [place] [facility] Body weight 2020-09-14 02:09:00 61.236 kg Universi ty of [place] [facility] BMI 2020-09-14 02:09:00 21.14 kg/m2 Universi ty of [place] [facility] Systolic blood 2020-09-14 03:30:00 147 mm[Hg] Univer sity of pressure [place] [facility] Diastolic blood 2020-09-14 03:30:00 89 mm[Hg] Unive rsity of pressure [place] [facility] Heart rate 2020-09-14 03:30:00 73 /min Universi ty [facility] [place] [facility] Respiratory rate 2020-09-14 03:30:00 19 /min Univ ersity of [place] [facility] Oxygen saturation in 2020-09-14 03:30:00 97 /min University of Arterial blood by [facility] hermelindo Pulse oximetry Branch Body temperature 2020-09-14 02:10:00 36.5 Brittany Univ ersity of [place] [facility] Body height 2020-09-14 02:09:00 170.2 cm Universi ty [facility] [place] [facility] Body weight 2020-09-14 02:09:00 61.236 kg [facility]i ty [facility] [place] [facility] BMI 2020-09-14 02:09:00 21.14 kg/m2 [facility] [place] [facility] Heart rate 2019-07-28 01:36:00 70 /min [facility] [place] [facility] Respiratory rate 2019-07-28 01:36:00 18 /min Univ ersity of [place] [facility] Oxygen saturation in 2019-07-28 01:24:00 98 /min University of Arterial blood by [facility] Pulse oximetry Branch Systolic blood 2019-07-28 01:00:00 143 mm[Hg] Univer sity of pressure [place] [facility] Diastolic blood 2019-07-28 01:00:00 74 mm[Hg] Unive rsity of pressure [place] [facility] Body temperature 2019-07-28 00:05:00 36.56 Brittany Univ ersity [facility] [place] [facility] Body height 2019-07-28 00:05:00 170.2 cm Universi ty [facility] [place] [facility] Body weight 2019-07-28 00:05:00 68.04 kg [facility]i ty [facility] [place] [facility] BMI 2019-07-28 00:05:00 23.49 kg/m2 [facility] [place] [facility] Heart rate 2019-07-28 01:36:00 70 /min [facility] [place] [facility] Respiratory rate 2019-07-28 01:36:00 18 /min Univ ersity of [place] [facility] Oxygen saturation in 2019-07-28 01:24:00 98 /min University of Arterial blood by [facility] Pulse oximetry Branch Systolic blood 2019-07-28 01:00:00 143 mm[Hg] Univer sity of pressure [place] [facility] Diastolic blood 2019-07-28 01:00:00 74 mm[Hg] Unive rsity of pressure [place] [facility] Body temperature 2019-07-28 00:05:00 36.56 Brittany Univ ersity of [place] [facility] Body height 2019-07-28 00:05:00 170.2 cm [facility]i ty [facility] [place] [facility] Body weight 2019-07-28 00:05:00 68.04 kg [facility]i ty [facility] [place] [facility] BMI 2019-07-28 00:05:00 23.49 kg/m2 [facility] [place] [facility] Systolic blood 2019-03-11 21:00:00 141 mm[Hg] Univer sity of pressure [place] [facility] Diastolic blood 2019-03-11 21:00:00 66 mm[Hg] Unive rsity of pressure [place] [facility] Heart rate 2019-03-11 21:00:00 97 /min Universi ty [facility] [place] [facility] Respiratory rate 2019-03-11 21:00:00 18 /min Univ ersity of [place] [facility] Oxygen saturation in 2019-03-11 21:00:00 97 /min University of Arterial blood by [employer] Pulse oximetry Branch Body temperature 2019-03-11 19:13:00 36.06 Brittany Univ ersity [facility] [place] [facility] Body weight 2019-03-11 19:12:00 68.04 kg Universi ty [facility] [place] [facility] BMI 2019-03-11 19:12:00 23.49 kg/m2 [facility] [place] [facility] Systolic blood 2019-03-11 21:00:00 141 mm[Hg] Univer sity of pressure [place] [facility] Diastolic blood 2019-03-11 21:00:00 66 mm[Hg] Unive rsity of pressure [place] [facility] Heart rate 2019-03-11 21:00:00 97 /min [facility]i ty [facility] [place] [facility] Respiratory rate 2019-03-11 21:00:00 18 /min Univ ersity [facility] [place] [facility] Oxygen saturation in 2019-03-11 21:00:00 97 /min University of Arterial blood by [employer] Pulse oximetry Branch Body temperature 2019-03-11 19:13:00 36.06 Brittany Univ [facility] [place] [facility] Body weight 2019-03-11 19:12:00 68.04 kg [facility] [place] [facility] BMI 2019-03-11 19:12:00 23.49 kg/m2 [facility] [place] [facility] Procedures Procedure Date / Time Performing Clinician Source Performed RAPID INFLUENZA A/B 2021-09-02 00:47:[address] [facility] COVID-19 (ID NOW RAPID 2021-09-02 00:47:00 Cameron Dalton [facility] TESTING) Medical Branch XR CHEST 2 VW 2021-09-02 00:27:31 Krystle [facility] CONSENT/REFUSAL FOR 2021-09-01 23:46:25 [facility] Unassigned, [facility] Name Medical Branch XR CHEST 2 VW 2021-08-07 16:43:01 Darius Ledesma [facility] CONSENT/REFUSAL FOR 2021-08-07 15:37:28 Doctor Unassigned, No [facility] CT ABDOMEN PELVIS W 2021-06-29 23:11:24 Jose Alejandro Castano [facility] CONTRAST Medical Branch LIPASE 2021-06-29 22:18:00 [facility] TROPONIN I 2021-06-29 22:18:00 [facility] COMP. METABOLIC PANEL 2021-06-29 22:18:00 Jose Alejandro Castano [facility] ([id number]) [facility] CBC WITH DIFF 2021-06-29 22:18:00 [facility] URINALYSIS 2021-06-29 22:18:00 [facility] CONSENT/REFUSAL FOR 2021-06-29 21:50:47 Doctor Unassigned, No [facility] POCT GLUCOSE (AUTOMATED) 2021-05-20 17:30:00 Suad Santana [facility] HB ECG ROUTINE & RHYTHM 2021-05-20 15:36:46 Sami Caceres [facility] STRIP [facility] TRANSTHORACIC ECHO (TTE) 2021-05-20 15:19:52 [facility] COMPLETE [facility] TROPONIN I 2021-05-20 11:04:00 Yane [facility] BASIC METABOLIC PANEL 2021-05-20 11:04:00 [facility] (NA, K, CL, CO2, Medical Branch GLUCOSE, BUN, CREATININE, CA) CBC WITH DIFF 2021-05-20 11:04[facility] 2021-05-20 01:56:00 Neida Irving [facility] XR CHEST 1 VW 2021-05-20 00:01:05 Neida Irving [facility] LIPASE 2021-05-19 23:49:00 Neida Irving [facility] MAGNESIUM 2021-05-19 23:49:00 Neida Irving [facility] TROPONIN I 2021-05-19 23:49:00 Neida Irving [facility] COMP. METABOLIC PANEL 2021-05-19 23:49:00 Neida Irving [facility] ([id number]) [facility] CBC WITH DIFF 2021-05-19 23:49:00 Neida Irving [facility] PROTHROMBIN TIME / INR 2021-05-19 23:49:00 Neida Irving [facility] ACTIVATED PARTIAL 2021-05-19 23:49:00 Neida Irving [facility] THRFormerly [facility] COVID-19 (ID NOW RAPID 2021-05-19 23:49:00 Neida Irving [facility] TESTING) [facility] CONSENT/REFUSAL FOR 2021-05-19 23:01:42 Doctor Unassigned, No Un [facility] DIAGNOSIS AND TREATMENT Name [facility] Branch URINALYSIS 2020-09-14 02:42:00 Diana Berg [facility] XR CHEST 1 VW 2020-09-14 02:30:21 Diana Berg [facility] LIPASE 2020-09-14 02:21:00 Diana Berg [facility] TROPONIN I 2020-09-14 02:21:00 Diana Berg [facility] HEPATIC FUNCTION PANEL 2020-09-14 02:21:00 [facility] [place] ([id number] (ALB,T.PRO,BILI Medical Branch T,BU/BC,ALT,AST,ALK PHOS) BASIC METABOLIC PANEL 2020-09-14 02:21:00 Diana Berg [facility] [place] (NA, K, CL, CO2, Medical Branch GLUCOSE, BUN, CREATININE, CA) CBC WITH DIFF 2020-09-14 02:21:00 Diana Berg [facility] N-TERMINAL PRO-BNP 2020-09-14 02:21:00 Diana Berg [facility] COVID-19 (ID NOW RAPID 2020-09-14 02:21:00 [facility] Medical Branch NOTICE OF PRIVACY 2020-09-14 02:00:22 Doctor Unassigned, No [facility] PRACTICES Name Medical Branch CONSENT/REFUSAL FOR 2020-09-14 01:58:28 Doctor Unassigned, No [facility] Name [facility] HEPATIC FUNCTION PANEL 2019-07-28 00:55:00 Mariangel Ortega [facility] [place] ([id number]) (ALB,T.PRO,BILI Medical Branch T,BU/BC,ALT,AST,ALK PHOS) BASIC METABOLIC PANEL 2019-07-28 00:55:00 Mariangel [facility]tega [facility] [place] (NA, K, CL, CO2, Medical Branch GLUCOSE, BUN, CREATININE, CA) CBC WITH DIFFERENTIAL 2019-07-28 00:55:00 Mariangel Ortega Un iversity of [facility] RAPID STREP SCREEN FOR 2019-07-28 00:55:00 Mariangel Ortega U [facility] GROUP A [facility] Branch ADC,CLC OR LCC ONLY - 2019-07-28 00:55:00 Mariangel Ortega Un [facility] [place] INFLUENZA A & B DIRECT Medical B ranch ANTIGEN CBC WITH DIFFERENTIAL 2019-07-28 00:55:00 Mariangel Ortega Un iversity of [facility] XR CHEST 2 VW 2019-07-28 00:28:40 Mariangel Ortega Universi [facility] CONSENT/REFUSAL FOR 2019-07-27 23:47:18 Doctor Perry, Karen [facility] DIAGNOSIS AND TREATMENT Name Medical Branch LIPASE 2019-03-11 19:53:00 Cristobal Connor [place] [facility] HEPATIC FUNCTION PANEL 2019-03-11 19:53:00 Cristobal Connor [facility] ([id number]) (ALB,T.PRO,BILI [facility] T,BU/BC,ALT,AST,ALK PHOS) BASIC METABOLIC PANEL 2019-03-11 19:53:00 Cristobal Connor [facility] (NA, K, CL, CO2, [facility] Branch GLUCOSE, BUN, CREATININE, CA) CBC WITH DIFFERENTIAL 2019-03-11 19:53:00 Cristobal Connor [facility] PROTHROMBIN TIME / INR 2019-03-11 19:53:00 Cristobal Connor [facility] ACTIVATED PARTIAL 2019-03-11 19:53:00 Cristobal Connor [facility] THRMPLAS [facility] NOTICE OF PRIVACY 2019-03-11 18:56:54 Doctor Perry, Karen [facility] PRACTICES Name [facility] Encounters Start End Encounter Admission Attending Care Care Encounter Source Date/Time Date/Time Type Type Clinicians Facility Department ID 2021-05-06 Emergency [facility] [id number] Univers 05:05:13 ity of [facility] 2021-09-01 2021-09-01 Emergency X DALTON, [facility] ERT [id number] Univers 17:59:00 19:56:00 CAMERON delaney [facility] 2021-09-01 2021-09-01 Emergency Dalton, [facility] [id number] Univers 17:59:00 19:56:00 Cameron DENNISON [id number] i ty [facility] [id number] [facility] [id number] [place] [id number] Branch 2021-09-01 2021-09-01 Orders Doctor LING [id number] Univers 00:00:00 00:00:00 Only UnassignedKIRK [id number] ity of [place] [facility] [id number] Amandeep as [phone] [facility] [address] [place] 2021-08-08 2021-08-08 Letter SUSHIL Daniels [id number] Univers 00:00:00 00:00:00 (Out) Nirmala Ballard KIRK [id number] it y of [facility] [id number] Amandeep as [id number] [facility] [address] [place] 2021-08-07 2021-08-07 Emergency X [facility] ERT [id number] Univers 09:58:00 11:43:00 DARIUS ity [facility] 2021-08-07 2021-08-07 Emergency [facility] [id number] Univers 09:58:00 11:43:00 Darius DENNISON [id number] i ty of [place] [id number] [facility] [phone] [address] 2021-08-07 2021-08-07 Orders Doctor LING 1.2.840.114 [id number] Univers 00:00:00 00:00:00 Only Unassigned, KIRK 350.1.13.10 ity of [place] [facility] 4.2.7.2.686 Amandeep as [phone] [facility] [address] [place] 2021-06-29 2021-06-29 Emergency [facility] [id number] Univers 16:04:00 19:33:00 JOSE ALEJANDRO ity [facility] 2021-06-29 2021-06-29 [facility] 1.2.840.114 [id number] Univers 16:04:00 19:33:00 Jose Alejandro DENNISON 350.1.13.10 i ty of [place] 4.2.7.2.686 [facility] [id number] [address] 2021-05-19 2021-05-20 [facility] [id number] Univers 17:04:00 17:03:00 MERCY ity [facility] 2021-05-19 2021-05-20 Emergency Neida Irving [facility] 1.2.840. 114 [id number] [facility] 17:04:00 17:03:00 Suad Santana JESI 350.1.13.10 [facility] 4.2.7.2.686 [facility] [id number] [address] 2020-09-16 2020-09-16 Outpatient [facility] [id number] Univers 10:20:00 10:20:00 [id number] ity [facility] 2020-09-16 2020-09-16 Outpatient R LUIS MANUEL [facility] [id number] Univers 10:20:00 10:20:00 NICOLE [facility] 2020-09-16 2020-09-16 Laboratory Lab, [facility] 1.2.840.114 [id number] 09:44:15 10:04:15 Only Fam Pob I Health 350.1.13.10 [place] 4.2.7.2.686 Professio [phone] [place] [address] [address] 2020-09-16 2020-09-16 Laboratory Lab, [facility] Fam Pob I [facility] 1.2. 840.114 [id number] [facility] 09:44:15 10:04:15 Only Luis Manuel [facility] 350.1.13.10 ity of [place] 4.2.7.2.686 Amandeep as Professio [phone] Al dical [address] Office [address] 2020-09-13 2020-09-13 Emergency [facility] 1.2.840.114 [id number] 20:05:00 22:24:00 Diana Dennison 350.1.13.10 [place] 4.2.7.2.686 [place] [phone] [facility] 2020-09-13 2020-09-13 Emergency [facility] 1.2.840.114 [id number] Univers 20:05:00 22:24:00 Diana Dennison 350.1.13.10 ity of [place] 4.2.7.2.686 [facility] [id number] [address] 2019-07-27 2019-07-27 Emergency Shannon [facility] 1.2.840.114 [id number] 18:07:12 20:13:00 Mariangel Dennison 350.1.13.10 [place] 4.2.7.2.686 [place] [id number] 084 2019-07-27 2019-07-27 Emergency Shannon [facility] 1.2.840.114 [id number] [facility] 18:07:12 20:13:00 Mariangel Dennison 350.1.13.10 ity of [place] 4.2.7.2.686 [facility] [id number] [address] 2019-07-27 2019-07-27 Orders Doctor SUSHIL 1.2.840.114 [id number] 00:00:00 00:00:00 Only Unassigned, KIRK 350.1.13.10 [place] [facility] 4.2.7.2.686 [id number] 009 2019-07-27 2019-07-27 Orders Doctor LING 1.2.840.114 [id number] Univers 00:00:00 00:00:00 Only Unassigned, KIRK 350.1.13.10 ity of [place] [facility] 4.2.7.2.686 [facility] [id number] [address] 2019-03-11 2019-03-11 Emergency [facility] 1.2.425.147 [id number] 14:05:54 16:45:00 Cristobal Dennison 350.1.13.10 [place] 4.2.7.2.686 [place] [phone] [facility] 2019-03-11 2019-03-11 Emergency [facility] [id number] [facility] 14:05:54 16:45:00 Cristobal Dennison 350.1.13.10 i ty of [place] 4.2.7.2.686 [facility] [phone] [address] Results Test Description Test Time Test Comments Results Result Comments Source COMP. METABOLIC PANEL (21077) 2021-06-29 23:10:56 Test Item Value Reference Range Interpretation Comme nts NA (test code = 2365514687) 137 mmol/L 135-145 K (test code = 4702798977) 3.9 mmol/L 3.5-5.0 CL (test code = 1017683167) 102 mmol/L 98-108 CO2 TOTAL (test code = 1200512089) 27 mmol/L 23-31 AGAP (test code = 2470902643) 2-16 BUN (test code = 0506654005) 10 mg/dL 7-23 GLUCOSE (test code = 9215351778) 137 mg/dL 70-110 H CREATININE (test code = 0.69 mg/dL 0.50-1.04 3962320230) TOTAL BILI (test code = 0.5 mg/dL 0.1-1.3 9753722896) CALCIUM (test code = 9927715664) 9.2 mg/dL 8.6-10.6 T PROTEIN (test code = 3635088793) 7.7 g/dL 6.3-8.2 ALBUMIN (test code = 6349465462) 4.9 g/dL 3.5-5.0 ALK PHOS (test code = 6411794130) 73 U/L 34-122 ALTv (test code = 1742-6) 15 U/L 5-35 AST(SGOT) (test code = 1381686092) 21 U/L 13-40 eGFR (test code = 0309525641) mL/min/1.73m2 MADISYN (test code = MADISYN) Association of Glomerular Filtration Rate (GFR) and Staging of Kidney Disease* + +-------- + ------+| GFR (mL/min/1.73 m2) ?| With Kidney Damage ?| ?Without Kidney Damage+ +-- + +| ?>90 ?| ?Stage one ?| ? Normal ?+ +------- + -------+| ?60-89 ?| ?Stage two ?| ? Decreased GFR ? + +-------- + ------+| ?30-59 ?| ?Stage three ?| ? Stage three ? + +-------- + ------+| ?15-29 ?| ?Stage four ? | ? Stage four ?+ +------- + -------+| ?<15 (or dialysis) ? ?| ?Stage five ? | ? Stage five ?+ +------- + -------+ *Each stage assumes the associated GFR level has been in effect for at least three months. ?Stages 1 to 5, with or without kidney disease, indicate chronic kidney disease. Notes: Determination of stages one and two (with eGFR >59mL/min/1.73 m2) requires estimation of kidney damage for at least three months as defined by structural or functional abnormalities of the kidney, manifested by either:Pathological abnormalities or Markers of kidney damage (including abnormalities in the composition of the blood or urine or abnormalities in imaging tests). Lab Interpretation (test code = Abnormal 80156-0) [facility] [id number] 22:59:27 Test Item Value Reference Interpretation Comments Range TROPONIN I (test 0.001 ng/mL See_Comment [Automated code = 3953979921) message] The system which generated this result transmitted reference range : <=0.034. The reference range was not used to interpret this result as normal/abnormal . MADISYN (test code = Reference (Normal) MADISYN) Range (defined by the 99th percentile reference limit): <= 0.034 ng/mL Note: Cardiac troponin begins to rise 3-4 hours after the onset of ischemia. Repeat in 4-6 hours if the sample was drawn within 3-4 hours of the onset of the symptom and found normal. Diagnosis of myocardial injury is made with acute changes in cTn concentrations with at least one serial sample above the 99th percentile upper reference limit (URL), taken together with the patient's clinical presentation. Biotin has been reported to cause a negative bias, interpret results relative to patient's use of biotin. Lab Interpretation Normal (test code = 60664-7) [facility] 22:49:29 Test Item Value Reference Range Interpretation Comments LIPASE (test code = 7304788330) 57 U/L 0-220 Lab Interpretation (test code = Normal 17549-8) [facility] WITH [id number] 22:29:28 Test Item Value Reference Range Interpretation Comments WBC (test code = See_Comment [Automated 3390-2) message] The sy stem which generated this result transmitted reference range : 4.30 - 11.10 10*3/?L. The reference range was not used to interpret this result as normal/abnormal . RBC (test code = See_Comment L [Automated 289-8) message] The sy stem which generated this result transmitted reference range : 3.93 - 5.25 10*6/?L. The reference range was not used to interpret this result as normal/abnormal . HGB (test code = 12.0 g/dL 11.6-15.0 718-7) HCT (test code = 35.1 % 35.7-45.2 L 4544-3) MCV (test code = 93.4 fL 80.6-95.5 787-2) MCH (test code = 31.9 pg 25.9-32.8 785-6) MCHC (test code = 34.2 g/dL 31.6-35.1 786-4) RDW-SD (test code = 43.4 fL 39.0-49.9 59697-6) RDW-CV (test code = 12.7 % 12.0-15.5 788-0) PLT (test code = See_Comment [Automated 777-3) message] The sy stem which generated this result transmitted reference range : 166 - 358 10*3/ ?L. The reference r aiden was not used to interpret this result as normal/abnormal . MPV (test code = 10.7 fL 9.5-12.9 13621-8) NRBC/100 WBC (test See_Comment [Automat ed code = 3619358530) message] The system which generated this result transmitted reference range : 0.0 - 10.0 /100 WBCs. The refer ence range was not u sed to interpret th is result as normal/abnormal . NRBC x10^3 (test code <0.01 See_Comment [Auto mated = 3757350625) message] The s ystem which generated this result transmitted reference range : 10*3/?L. The reference range was not used to interpret this result as normal/abnormal . GRAN MAT (NEUT) % 68.6 % (test code = 770-8) IMM GRAN % (test code 0.40 % = 8556035182) LYMPH % (test code = 22.9 % 736-9) MONO % (test code = 6.3 % 5905-5) EOS % (test code = 1.6 % 713-8) BASO % (test code = 0.2 % 706-2) GRAN MAT x10^3(ANC) 6.89 10*3/uL 1.88-7.09 (test code = 0234576548) IMM GRAN x10^3 (test 0.04 10*3/uL 0.00-0.06 code = 3262443217) LYMPH x10^3 (test code 2.30 10*3/uL 1.32-3.29 = 731-0) MONO x10^3 (test code 0.63 10*3/uL 0.33-0.92 = 742-7) EOS x10^3 (test code = 0.16 10*3/uL 0.03-0.39 711-2) BASO x10^3 (test code <0.03 0.01-0.07 = 704-7) Lab Interpretation Abnormal (test code = 78679-6) [facility]2021-05-20 17:33:00 Test Item Value Reference Range Interpretation Comments POCT GLU (test code = 5824155763) 80 mg/dL 70-110 Lab Interpretation (test code = Normal 97400-0) [facility] [id number] 12:36:17 Test Item Value Reference Interpretation Comments Range TROPONIN I (test 0.002 ng/mL See_Comment [Automated code = 3257872774) message] The system which generated this result transmitted reference range : <=0.034. The reference range was not used to interpret this result as normal/abnormal . MADISYN (test code = Reference (Normal) MADISYN) Range (defined by the 99th percentile reference limit): <= 0.034 ng/mL Note: Cardiac troponin begins to rise 3-4 hours after the onset of ischemia. Repeat in 4-6 hours if the sample was drawn within 3-4 hours of the onset of the symptom and found normal. Diagnosis of myocardial injury is made with acute changes in cTn concentrations with at least one serial sample above the 99th percentile upper reference limit (URL), taken together with the patient's clinical presentation. Biotin has been reported to cause a negative bias, interpret results relative to patient's use of biotin. Lab Interpretation Normal (test code = 97322-4) [facility] (NA, K, CL, CO2, GLUCOSE, BUN, CREATININE, CA)2021-05-20 12:31:20 Test Item Value Reference Range Interpretation Comments NA (test code = 138 mmol/L 135-145 1251566812) K (test code = 4.2 mmol/L 3.5-5.0 1821474670) CL (test code = 106 mmol/L 98-108 9516542589) CO2 TOTAL (test code = 25 mmol/L 23-31 1124742823) AGAP (test code = 2-16 8700770993) BUN (test code = 12 mg/dL 7-23 1770450417) GLUCOSE (test code = 146 mg/dL 70-110 H 3304677095) CREATININE (test code = 0.62 mg/dL 0.50-1.04 7155894889) CALCIUM (test code = 10.0 mg/dL 8.6-10.6 4515806772) eGFR (test code = mL/min/1.73m2 2962089103) MADISYN (test code = MADISYN) Association of Glomerular Filtration Rate (GFR) and Staging of Kidney Disease* + --+ --+ ------+| GFR (mL/min/1.73 m2) ?| With Kidney Damage ?| ?Without Kidney Damage+ --------+ --------+ +| ?>90 ?| ?Stage one ?| ? Normal ?+ ---+ ---+ -------+| ?60-89 ?| ?Stage two ?| ? Decreased GFR ? + --+ --+ ------+| ?30-59 ?| ?Stage three ?| ? Stage three ? + --+ --+ ------+| ?15-29 ?| ?Stage four ? | ? Stage four ?+ ---+ ---+ -------+| ?<15 (or dialysis) ? ?| ?Stage five ? | ? Stage five ?+ ---+ ---+ -------+ *Each stage assumes the associated GFR level has been in effect for at least three months. ?Stages 1 to 5, with or without kidney disease, indicate chronic kidney disease. Notes: Determination of stages one and two (with eGFR >59mL/min/1.73 m2) requires estimation of kidney damage for at least three months as defined by structural or functional abnormalities of the kidney, manifested by either:Pathological abnormalities or Markers of kidney damage (including abnormalities in the composition of the blood or urine or abnormalities in imaging tests). Lab Interpretation Abnormal (test code = 58557-0) [facility] with [id number] 11:49:32 Test Item Value Reference Range Interpretation Comments WBC (test code = See_Comment [Automated 6690-2) message] The sy stem which generated this result transmitted reference range : 4.30 - 11.10 10*3/?L. The reference range was not used to interpret this result as normal/abnormal . RBC (test code = See_Comment L [Automated 789-8) message] The sy stem which generated this result transmitted reference range : 3.93 - 5.25 10*6/?L. The reference range was not used to interpret this result as normal/abnormal . HGB (test code = 11.6 g/dL 11.6-15.0 718-7) HCT (test code = 33.5 % 35.7-45.2 L 4544-3) MCV (test code = 92.5 fL 80.6-95.5 787-2) MCH (test code = 32.0 pg 25.9-32.8 785-6) MCHC (test code = 34.6 g/dL 31.6-35.1 786-4) RDW-SD (test code = 40.3 fL 39.0-49.9 48523-7) RDW-CV (test code = 11.9 % 12.0-15.5 L 788-0) PLT (test code = See_Comment [Automated 777-3) message] The sy stem which generated this result transmitted reference range : 166 - 358 10*3/ ?L. The reference r aiden was not used to interpret this result as normal/abnormal . MPV (test code = 11.3 fL 9.5-12.9 47994-1) NRBC/100 WBC (test See_Comment [Automat ed code = 7316737026) message] The system which generated this result transmitted reference range : 0.0 - 10.0 /100 WBCs. The refer ence range was not u sed to interpret th is result as normal/abnormal . NRBC x10^3 (test code <0.01 See_Comment [Auto mated = 5848605839) message] The s ystem which generated this result transmitted reference range : 10*3/?L. The reference range was not used to interpret this result as normal/abnormal . GRAN MAT (NEUT) % 59.9 % (test code = 770-8) IMM GRAN % (test code 0.50 % = 9323783822) LYMPH % (test code = 30.0 % 736-9) MONO % (test code = 6.4 % 5905-5) EOS % (test code = 2.9 % 713-8) BASO % (test code = 0.3 % 706-2) GRAN MAT x10^3(ANC) 3.72 10*3/uL 1.88-7.09 (test code = 3828797158) IMM GRAN x10^3 (test 0.03 10*3/uL 0.00-0.06 code = 2514632358) LYMPH x10^3 (test code 1.86 10*3/uL 1.32-3.29 = 731-0) MONO x10^3 (test code 0.40 10*3/uL 0.33-0.92 = 742-7) EOS x10^3 (test code = 0.18 10*3/uL 0.03-0.39 711-2) BASO x10^3 (test code <0.03 0.01-0.07 = 704-7) Lab Interpretation Abnormal (test code = 78271-0) [facility] CenterFILOMENAALICIAMARCYGarcia [id number] 02:24:28 Test Item Value Reference Interpretation Comments Range TROPONIN I (test 0.003 ng/mL See_Comment [Automated code = 8221130811) message] The system which generated this result transmitted reference range : <=0.034. The reference range was not used to interpret this result as normal/abnormal . MADISYN (test code = Reference (Normal) MADISYN) Range (defined by the 99th percentile reference limit): <= 0.034 ng/mL Note: Cardiac troponin begins to rise 3-4 hours after the onset of ischemia. Repeat in 4-6 hours if the sample was drawn within 3-4 hours of the onset of the symptom and found normal. Diagnosis of myocardial injury is made with acute changes in cTn concentrations with at least one serial sample above the 99th percentile upper reference limit (URL), taken together with the patient's clinical presentation. Biotin has been reported to cause a negative bias, interpret results relative to patient's use of biotin. Lab Interpretation Normal (test code = 61680-5) [facility]2021-[facility]-14 00:25:00 Test Item Value Reference Range Interpretation Comments MAGNESIUM (test code = 9831752627) 1.9 mg/dL 1.7-2.4 Lab Interpretation (test code = Normal 68403-5) [facility] [id number] 00:20:03 Test Item Value Reference Interpretation Comments Range TROPONIN I (test 0.002 ng/mL See_Comment [Automated code = 1685361414) message] The system which generated this result transmitted reference range : <=0.034. The reference range was not used to interpret this result as normal/abnormal . MADISYN (test code = Reference (Normal) MADISYN) Range (defined by the 99th percentile reference limit): <= 0.034 ng/mL Note: Cardiac troponin begins to rise 3-4 hours after the onset of ischemia. Repeat in 4-6 hours if the sample was drawn within 3-4 hours of the onset of the symptom and found normal. Diagnosis of myocardial injury is made with acute changes in cTn concentrations with at least one serial sample above the 99th percentile upper reference limit (URL), taken together with the patient's clinical presentation. Biotin has been reported to cause a negative bias, interpret results relative to patient's use of biotin. Lab Interpretation Normal (test code = 94830-8) [facility] (31598)2021-05-20 00:09:00 Test Item Value Reference Range Interpretation Comments NA (test code = 139 mmol/L 135-145 8479312808) K (test code = 3.9 mmol/L 3.5-5.0 9983732336) CL (test code = 101 mmol/L 98-108 3311205016) CO2 TOTAL (test code = 28 mmol/L 23-31 0670196309) AGAP (test code = 2-16 6317923677) BUN (test code = 13 mg/dL 7-23 0251693394) GLUCOSE (test code = 143 mg/dL 70-110 H 7838908583) CREATININE (test code = 0.68 mg/dL 0.50-1.04 7801054979) TOTAL BILI (test code = 0.4 mg/dL 0.1-1.7 3580005313) CALCIUM (test code = 10.4 mg/dL 8.6-10.6 7569436534) T PROTEIN (test code = 8.0 g/dL 6.3-8.2 2049188513) ALBUMIN (test code = 5.0 g/dL 3.5-5.0 4651344463) ALK PHOS (test code = 93 U/L 34-122 5123475890) ALTv (test code = 21 U/L 5-35 1742-6) AST(SGOT) (test code = 31 U/L 13-40 1650882646) eGFR (test code = mL/min/1.73m2 2269858691) MADISYN (test code = MADISYN) Association of Glomerular Filtration Rate (GFR) and Staging of Kidney Disease* + --+ --+ ------+| GFR (mL/min/1.73 m2) ?| With Kidney Damage ?| ?Without Kidney Damage+ --------+ --------+ +| ?>90 ?| ?Stage one ?| ? Normal ?+ ---+ ---+ -------+| ?60-89 ?| ?Stage two ?| ? Decreased GFR ? + --+ --+ ------+| ?30-59 ?| ?Stage three ?| ? Stage three ? + --+ --+ ------+| ?15-29 ?| ?Stage four ? | ? Stage four ?+ ---+ ---+ -------+| ?<15 (or dialysis) ? ?| ?Stage five ? | ? Stage five ?+ ---+ ---+ -------+ *Each stage assumes the associated GFR level has been in effect for at least three months. ?Stages 1 to 5, with or without kidney disease, indicate chronic kidney disease. Notes: Determination of stages one and two (with eGFR >59mL/min/1.73 m2) requires estimation of kidney damage for at least three months as defined by structural or functional abnormalities of the kidney, manifested by either:Pathological abnormalities or Markers of kidney damage (including abnormalities in the composition of the blood or urine or abnormalities in imaging tests). Lab Interpretation Abnormal (test code = 11872-3) [facility] 00:08:20 Test Item Value Reference Range Interpretation Comments LIPASE (test code = 4296829472) 66 U/L 0-220 Lab Interpretation (test code = Normal 41881-6) [facility]PTT2021-[facility]-14 00:06:19 Test Item Value Reference Range Interpretation Comments APTT Patient (test See_Comment [Automat ed code = 3173-2) message] The system which generated this result transmitted reference range : 23 - 38 Seconds . The reference range was not used to interpr et this result as normal/abnormal . MADISYN (test code = MADISYN) The [facility] patient population mean normal value for aPTT is 30 seconds. Lab Interpretation Normal (test code = 53542-5) [facility] CenterPROTHROMBIN [facility] / [id number] 00:04:19 Test Item Value Reference Range Interpretation Comments PROTIME PATIENT (test See_Comment [Auto mated message] code = 5964-2) The system wh ich generated this result transmitted ref erence range: 12.0 - 1 4.7 Seconds. The re ference range was not u sed to interpret this result as normal/abnor mal. INR (test code = 6301-6) Nor mal INR <1.1; Warfarin Therap eutic range 2.0 to 3. 0 or 2.5 to 3.5, dep ending upon the indica tions. Lab Interpretation (test Normal code = 38934-0) [facility] WITH [id number] 23:55:39 Test Item Value Reference Range Interpretation Comments WBC (test code = See_Comment [Automated 6090-2) message] The sy stem which generated this result transmitted reference range : 4.30 - 11.10 10*3/?L. The reference range was not used to interpret this result as normal/abnormal . RBC (test code = See_Comment [Automated 719-8) message] The sy stem which generated this result transmitted reference range : 3.93 - 5.25 10*6/?L. The reference range was not used to interpret this result as normal/abnormal . HGB (test code = 12.7 g/dL 11.6-15.0 718-7) HCT (test code = 36.7 % 35.7-45.2 4544-3) MCV (test code = 92.2 fL 80.6-95.5 787-2) MCH (test code = 31.9 pg 25.9-32.8 785-6) MCHC (test code = 34.6 g/dL 31.6-35.1 786-4) RDW-SD (test code = 40.4 fL 39.0-49.9 49532-6) RDW-CV (test code = 11.9 % 12.0-15.5 L 788-0) PLT (test code = See_Comment [Automated 777-3) message] The sy stem which generated this result transmitted reference range : 166 - 358 10*3/ ?L. The reference r aiden was not used to interpret this result as normal/abnormal . MPV (test code = 11.0 fL 9.5-12.9 32517-3) NRBC/100 WBC (test See_Comment [Automat ed code = 0543151400) message] The system which generated this result transmitted reference range : 0.0 - 10.0 /100 WBCs. The refer ence range was not u sed to interpret th is result as normal/abnormal . NRBC x10^3 (test code <0.01 See_Comment [Auto mated = 8373271724) message] The s ystem which generated this result transmitted reference range : 10*3/?L. The reference range was not used to interpret this result as normal/abnormal . GRAN MAT (NEUT) % 53.4 % (test code = 770-8) IMM GRAN % (test code 0.60 % = 9583555219) LYMPH % (test code = 36.2 % 736-9) MONO % (test code = 6.4 % 5905-5) EOS % (test code = 3.3 % 713-8) BASO % (test code = 0.1 % 706-2) GRAN MAT x10^3(ANC) 3.58 10*3/uL 1.88-7.09 (test code = 6982330462) IMM GRAN x10^3 (test 0.04 10*3/uL 0.00-0.06 code = 7447655943) LYMPH x10^3 (test code 2.43 10*3/uL 1.32-3.29 = 731-0) MONO x10^3 (test code 0.43 10*3/uL 0.33-0.92 = 742-7) EOS x10^3 (test code = 0.22 10*3/uL 0.03-0.39 711-2) BASO x10^3 (test code <0.03 0.01-0.07 = 704-7) Lab Interpretation Abnormal (test code = 08079-1) [facility] CenterUrinalysis2021-[facility]-11 03:27:11 Test Item Value Reference Range Interpretation Comments APPEARANCE (test code = Clear Clear 4604913780) COLOR (test code = Straw Yellow A 9616924194) PH (test code = 4.8-8.0 2910418532) SP GRAVITY (test code = 1.003-1.030 7257105323) GLU U QUAL (test code = 500 mg/dL Normal A 6307012112) BLOOD (test code = Negative Negative 1576341702) KETONES (test code = Negative Negative 8842543067) PROTEIN (test code = Negative Negative 2887-8) UROBILIN (test code = Normal Normal 0668595495) BILIRUBIN (test code = Negative Negative 0148876995) NITRITE (test code = Negative Negative 0539751691) LEUK KEVEN (test code = 25/uL Negative A 2090784770) RBC/HPF (test code = See_Comment [Autom ated message] 9486744342) The system [email or web address] generated this result transmit zoila reference range : 0 - 3 HPF. The refe rence range was not u sed to interpret th is result as normal/abnormal . WBC/HPF (test code = See_Comment [Autom ated message] 7256199982) The system [email or web address] generated this result transmit zoila reference range : 0 - 5 HPF. The refe rence range was not u sed to interpret th is result as normal/abnormal . BACTERIA (test code = Negative Negative 6004770859) MUCOUS (test code = Slight Negative LPF A 6517474111) SQ EPITH (test code = HPF 8239099643) Lab Interpretation (test Abnormal code = 79770-7) [facility] Center[facility] [id number] 03:00:28 Test Item Value Reference Range Interpretation Comments TROPONIN I (test <0.012 See_Comment [Automated code = 4290172885) message] The system which generated this result transmitted reference range : <=0.034 ng/mL. The reference range was not used to interpr et this result as normal/abnormal . MADISYN (test code = Equal or Less than MADISYN) 0.034 ng/ml---Normal ?Note: Cardiac troponin begins to rise 3-4 hours after the onset of ischemia. Repeat in 4-6 hours if the sample was drawn within 3-4 hours of the onset of the symptom and found normal. Between 0.035 and 0.120 ng/mL--- Borderline. Questionable myocardial injury or necrosis ? ?Note: Serial measurement may be necessary to confirm or exclude the diagnosis of myocardial injury or necrosis; Clinical correlation (symptoms, EKGs, imaging studies, and others) required; Repeat in 4-6 hours if clinically indicated. ? Equal or Higher than 0.121 ng/mL---Abnormal. Myocardial Injury or Necrosis Likely ? Biotin has been reported to cause a negative bias, interpret results relative to patient's use of biotin. ? Lab Interpretation Normal (test code = 21444-2) [id number] 02:57:10 Test Item Value Reference Range Interpretation Comments NT-proBNP (test code 25 pg/mL See_Comment [Autom ated = 7943317063) message] The system which generated this result transmitted reference range : <=125. The reference range was not used to interpret this result as normal/abnormal . MADISYN (test code = MADISYN) Biotin has been reported to cause a negative bias, interpret results relative to patient's use of biotin. Lab Interpretation Normal (test code = 13049-4) [facility] (NA, K, CL, CO2, GLUCOSE, BUN, CREATININE, CA)2020-09-14 02:48:49 Test Item Value Reference Range Interpretation Comments NA (test code = 135 mmol/L 135-145 6225277888) K (test code = 3.6 mmol/L 3.5-5.0 6905118375) CL (test code = 101 mmol/L 98-108 1542554520) CO2 TOTAL (test code = 23 mmol/L 23-31 8295066690) AGAP (test code = 2-16 4152172121) BUN (test code = 10 mg/dL 7-23 0282734551) GLUCOSE (test code = 296 mg/dL 70-110 H 6545359916) CREATININE (test code = 0.62 mg/dL 0.50-1.04 1816738726) CALCIUM (test code = 9.7 mg/dL 8.6-10.6 1688075646) eGFR Calculation mL/min/1.73m2 (Non-) (test code = 4708889633) eGFR Calculation mL/min/1.73m2 () (test code = 8152468961) MADISYN (test code = MADISYN) Association of Glomerular Filtration Rate (GFR) and Staging of Kidney Disease* + --+ --+ ------+| GFR (mL/min/1.73 m2) ?| With Kidney Damage ?| ?Without Kidney Damage+ --------+ --------+ +| ?>90 ?| ?Stage one ?| ? Normal ?+ ---+ ---+ -------+| ?60-89 ?| ?Stage two ?| ? Decreased GFR ? + --+ --+ ------+| ?30-59 ?| ?Stage three ?| ? Stage three ? + --+ --+ ------+| ?15-29 ?| ?Stage four ? | ? Stage four ?+ ---+ ---+ -------+| ?<15 (or dialysis) ? ?| ?Stage five ? | ? Stage five ?+ ---+ ---+ -------+ *Each stage assumes the associated GFR level has been in effect for at least three months. ?Stages 1 to 5, with or without kidney disease, indicate chronic kidney disease. Notes: Determination of stages one and two (with eGFR >59mL/min/1.73 m2) requires estimation of kidney damage for at least three months as defined by structural or functional abnormalities of the kidney, manifested by either:Pathological abnormalities or Markers of kidney damage (including abnormalities in the composition of the blood or urine or abnormalities in imaging tests). Lab Interpretation Abnormal (test code = 34228-4) [facility] (ALB, T.PRO, BILI T, BU/BC, ALT, AST, ALK PHOS)2020-09-14 02:48:48 Test Item Value Reference Range Interpretation Comments TOTAL BILI (test code = 4485478717) 0.4 mg/dL 0.1-1.1 BILI UNCON (test code = 4941172715) 0.4 mg/dL 0.1-1.1 BILI CONJ (test code = 1089212809) 0.0 mg/dL 0.0-0.3 T PROTEIN (test code = 9674633971) 7.7 g/dL 6.3-8.2 ALBUMIN (test code = 4465254758) 5.0 g/dL 3.5-5.0 ALK PHOS (test code = 1471720298) 78 U/L 34-122 ALTv (test code = 1742-6) 19 U/L 5-35 AST(SGOT) (test code = 2441798751) 25 U/L 13-40 Lab Interpretation (test code = Normal 73968-5) [facility] CenterLipase [id number] 02:48:48 Test Item Value Reference Range Interpretation Comments LIPASE (test code = 3472430694) 38 U/L 0-220 Lab Interpretation (test code = Normal 34288-4) [facility] NOW RAPID TESTING)2020-09-14 02:36:29 Test Item Value Reference Range Interpretation Comments SARS-CoV-2 Rapid ID NOW Positive Not Detected A (test code = 96147-2) MADISYN (test code = MADISYN) ID NOW COVID-19 Assay is an isothermal nucleic acid amplification test intended for the qualitative detection of nucleic acid from SARS-CoV-2 viral RNA in nasopharyngeal (HELP DESK ANALYST) specimens. It is used under Emergency Use Authorization (EUA) by FDA. The limit of detection (LOD) of the assay is 125 Genome Equivalents/mL. A positive result is indicative of the presence of SARS-CoV-2 RNA. ?Clinical correlation with patient history and other diagnostic information is necessary to determine patient infection status. A negative (Not Detected) result does not preclude SARS-CoV-2 infection. In patients with clinical symptoms and other tests that are consistent with SARS-CoV-2 infection, negative results should be treated as presumptive negative and a new specimen should be tested with alternative PCR molecular test. Invalid: Please collect a new specimen for repeat patient testing if clinically indicated. Lab Interpretation Abnormal (test code = 23400-9) [facility] with [id number] 02:30:06 Test Item Value Reference Range Interpretation Comments WBC (test code = See_Comment [Automated message] 6690-2) The system [email or web address] generated this result transmitted ref erence range: 4.30 - 1 1.10 10*3/?L. The re ference range was not u sed to interpret this result as normal/abnor mal. RBC (test code = See_Comment [Automated message] 459-8) The system [email or web address] generated this result transmitted ref erence range: 3.93 - 5 .25 10*6/?L. The re ference range was not u sed to interpret this result as normal/abnor mal. HGB (test code = 12.6 g/dL 11.6-15.0 718-7) HCT (test code = 36.5 % 35.7-45.2 4544-3) MCV (test code = 89.5 fL 80.6-95.5 787-2) MCH (test code = 30.9 pg 25.9-32.8 785-6) MCHC (test code = 34.5 g/dL 31.6-35.1 786-4) RDW-SD (test code 41.8 fL 39.0-49.9 = 62530-1) RDW-CV (test code 12.8 % 12.0-15.5 = 788-0) PLT (test code = See_Comment [Automated message] 397-3) The system [email or web address] generated this result transmitted ref erence range: 166 - 35 8 10*3/?L. The re ference range was not u sed to interpret this result as normal/abnor mal. MPV (test code = 11.2 fL 9.5-12.9 09310-2) NRBC/100 WBC (test See_Comment [Automat ed message] code = 0379599525) The [employer] which generated this result transmitted ref erence range: 0.0 - 10 .0 /100 WBCs. The refer ence range was not u sed to interpret this result as normal/abnor mal. NRBC x10^3 (test <0.01 See_Comment [Automated message] code = 5047599255) The syste m which generated this result transmitted ref erence range: 10*3/?L. The reference range was not used to interpr et this result as normal/abnormal . GRAN MAT (NEUT) % 54.0 % (test code = 770-8) IMM GRAN % (test 0.70 % code = 1128293073) LYMPH % (test code 36.2 % = 736-9) MONO % (test code 6.0 % = 5905-5) EOS % (test code = 2.8 % 713-8) BASO % (test code 0.3 % = 706-2) GRAN MAT 3.13 10*3/uL 1.88-7.09 x10^3(ANC) (test code = 8913031572) IMM GRAN x10^3 0.04 10*3/uL 0.00-0.06 (test code = 6050205613) LYMPH x10^3 (test 2.10 10*3/uL 1.32-3.29 code = 731-0) MONO x10^3 (test 0.35 10*3/uL 0.33-0.92 code = 742-7) EOS x10^3 (test 0.16 10*3/uL 0.03-0.39 code = 711-2) BASO x10^3 (test <0.03 0.01-0.07 code = 704-7) [facility] WITH [id number] 01:35:00 Test Item Value Reference Range Interpretation Comments WBC (test code = See_Comment [Automated 3590-2) message] The sy stem which generated this result transmitted reference range : 4.30 - 11.10 10*3/?L. The reference range was not used to interpret this result as normal/abnormal . RBC (test code = See_Comment [Automated 477-8) message] The sy stem which generated this result transmitted reference range : 3.93 - 5.25 10*6/?L. The reference range was not used to interpret this result as normal/abnormal . HGB (test code = 13.9 g/dL 11.6-15 718-7) HCT (test code = 40.1 % 35.7-45.2 4544-3) MCV (test code = 90.7 fL 80.6-95.5 787-2) MCH (test code = 31.4 pg 25.9-32.8 785-6) MCHC (test code = 34.7 g/dL 31.6-35.1 786-4) RDW-SD (test code = 40.8 fL 39-49.9 24830-8) RDW-CV (test code = 12.5 % 12-15.5 788-0) PLT (test code = See_Comment [Automated 777-3) message] The sy stem which generated this result transmitted reference range : 166 - 358 10*3/ ?L. The reference r aiden was not used to interpret this result as normal/abnormal . MPV (test code = 11.0 fL 9.5-12.9 21583-2) IPF % (test code = 5.7 % 1.3-7.7 Platelet count 1871928746) measured by fluorescence method. NRBC/100 WBC (test See_Comment [Automat ed code = 3676071832) message] The system which generated this result transmitted reference range : 0.0 - 10.0 /100 WBCs. The refer ence range was not u sed to interpret th is result as normal/abnormal . NRBC x10^3 (test code <0.01 See_Comment [Auto mated = 5684644483) message] The s ystem which generated this result transmitted reference range : 10*3/?L. The reference range was not used to interpret this result as normal/abnormal . GRAN MAT (NEUT) % 60.2 % (test code = 770-8) IMM GRAN % (test code 1.60 % = 6041314880) LYMPH % (test code = 29.4 % 736-9) MONO % (test code = 6.2 % 5905-5) EOS % (test code = 2.3 % 713-8) BASO % (test code = 0.3 % 706-2) GRAN MAT x10^3(ANC) 5.31 10*3/uL 1.88-7.09 (test code = 6163623308) IMM GRAN x10^3 (test 0.14 10*3/uL 0-0.06 H code = 8893686627) LYMPH x10^3 (test code 2.59 10*3/uL 1.32-3.29 = 731-0) MONO x10^3 (test code 0.55 10*3/uL 0.33-0.92 = 742-7) EOS x10^3 (test code = 0.20 10*3/uL 0.03-0.39 711-2) BASO x10^3 (test code 0.03 10*3/uL 0.01-0.07 = 704-7) Lab Interpretation Abnormal (test code = 17515-2) [facility] - INFLUENZA A & B DIRECT [id number] 01:26:00 Test Item Value Reference Range Interpretation Comments Influenza A (test code = 86427-5) Negative Negative Influenza B (test code = 97733-9) Negative Negative Lab Interpretation (test code = Normal 09823-6) [facility] Metabolic Panel (NA, K, CL, CO2, GLUCOSE, BUN, CREATININE, CA)2019-07-28 01:21:00 Test Item Value Reference Range Interpretation Comments NA (test code = 137 mmol/L 135-145 3304607873) K (test code = 3.8 mmol/L 3.5-5 9903911466) CL (test code = 100 mmol/L 98-108 8277672417) CO2 TOTAL (test code = 24 mmol/L 23-31 9855095424) AGAP (test code = 2-16 9526014589) BUN (test code = 13 mg/dL 7-23 2642052617) GLUCOSE (test code = 245 mg/dL 70-110 H 3506788791) CREATININE (test code = 0.49 mg/dL 0.5-1.04 L 0335091436) CALCIUM (test code = 9.8 mg/dL 8.6-10.6 1230203019) eGFR Calculation mL/min/1.73m2 (Non-) (test code = 7706040208) eGFR Calculation mL/min/1.73m2 () (test code = 5291761325) MADISYN (test code = MADISYN) Association of Glomerular Filtration Rate (GFR) and Staging of Kidney Disease* + --+ --+ ------+| GFR (mL/min/1.73 m2) ?| With Kidney Damage ?| ?Without Kidney Damage+ --------+ --------+ +| ?>90 ?| ?Stage one ?| ? Normal ?+ ---+ ---+ -------+| ?60-89 ?| ?Stage two ?| ? Decreased GFR ? + --+ --+ ------+| ?30-59 ?| ?Stage three ?| ? Stage three ? + --+ --+ ------+| ?15-29 ?| ?Stage four ? | ? Stage four ?+ ---+ ---+ -------+| ?<15 (or dialysis) ? ?| ?Stage five ? | ? Stage five ?+ ---+ ---+ -------+ *Each stage assumes the associated GFR level has been in effect for at least three months. ?Stages 1 to 5, with or without kidney disease, indicate chronic kidney disease. Notes: Determination of stages one and two (with eGFR >59mL/min/1.73 m2) requires estimation of kidney damage for at least three months as defined by structural or functional abnormalities of the kidney, manifested by either:Pathological abnormalities or Markers of kidney damage (including abnormalities in the composition of the blood or urine or abnormalities in imaging tests). Lab Interpretation Abnormal (test code = 75891-9) [facility] (ALB, T.PRO, BILI T, BU/BC, ALT, AST, ALK PHOS)2019-07-28 01:21:00 Test Item Value Reference Range Interpretation Comments TOTAL BILI (test code = 4140475383) 0.3 mg/dL 0.1-1.1 BILI UNCON (test code = 0968544947) 0.1 mg/dL 0.1-1.1 BILI CONJ (test code = 3956614903) 0.0 mg/dL 0-0.3 T PROTEIN (test code = 2874985259) 8.2 g/dL 6.3-8.2 ALBUMIN (test code = 4208460686) 5.0 g/dL 3.5-5 ALK PHOS (test code = 1317431478) 121 U/L 34-122 ALTv (test code = 1742-6) 33 U/L 5-35 AST(SGOT) (test code = 6042055823) 30 U/L 13-40 Lab Interpretation (test code = Normal 06798-0) [facility] FOR GROUP [id number] 01:19:00 Test Item Value Reference Range Interpretation Comments Streptococcus pyogenes (group A) Negative Negative antigen (test code = 00013-3) Lab Interpretation (test code = Normal 38937-7) [facility] CenterXR [facility] 2 [id number] 00:53:20Impression: No acute cardiopulmonary changes. Small sized hiatal hernia. Preliminary Report Dictatedby Resident: Kb Vergara MD., have reviewed this study and agree withthe above report.XR CHEST 2 VW History: cough Comparison: None available Findings: The lungs are clear. No focal consolidation is present. No pleural effusionor pneumothorax is identified. The heart is normal in size. The osseous structures are unremarkable. Smallsized hiatal hernia is present. Nemb, Radiant Results Inft User - 07/27/2019 6:54 PM CSTXR CHEST 2 VWHistory: cough Comparison: None availableFindings:The lungs are clear. No focal consolidation is present. No pleural effusionor pneumothorax is identified. The heart is normal in size. The osseous structures are unremarkable. Smallsized hiatal hernia is present.IMPRESSIONImpression:No acute cardiopulmonary changes.Small sized hiatal hernia.Preliminary Report Dictated by Resident: Kb Hernandez MD., have reviewed this study and agree withthe above report.[facility] (NA, K, CL, CO2, GLUCOSE, BUN, CREATININE, CA)2019-03-11 20:52:00 Test Item Value Reference Range Interpretation Comments NA (test code = 141 mmol/L 135-145 4343140821) K (test code = 3.6 mmol/L 3.5-5 3563688170) CL (test code = 104 mmol/L 98-108 1376734682) CO2 TOTAL (test code = 24 mmol/L 23-31 8602444156) AGAP (test code = 2-16 5969306976) BUN (test code = 19 mg/dL 7-23 5907826469) GLUCOSE (test code = 161 mg/dL 70-110 H 4433843857) CREATININE (test code = 0.51 mg/dL 0.5-1.04 4842402928) CALCIUM (test code = 9.4 mg/dL 8.6-10.6 6364835096) eGFR Calculation mL/min/1.73m2 (Non-) (test code = 1813627377) eGFR Calculation mL/min/1.73m2 () (test code = 7731483489) MADISYN (test code = MADISYN) Association of Glomerular Filtration Rate (GFR) and Staging of Kidney Disease*+ + + +| GFR (mL/min/1.73 m2)?| With Kidney Damage?|?Without Kidney Damage+ --------+ --------+ +|?>90?|?S tage one?|? Normal?+ ---------+ ---------+ +|?60-89? |?Stage two?|? Decreased GFR? + --+ --+ ------+|?30-59?|?Stage three?|? Stage three? + --+ --+ ------+|?15-29?|?Stage four? |? Stage four?+ -------+ -------+ +|?<15 (or dialysis)?|?Stage five? |? Stage five?+ -------+ -------+ +*Each stage assumes the associated GFR level has been in effect for at least three months.?Stages 1 to 5, with or without kidney disease, indicate chronic kidney disease.Notes: Determination of stages one and two (with eGFR >59mL/min/1.73 m2) requires estimation of kidney damage for at least three months as defined by structural or functional abnormalities of the kidney, manifested by either:Pathological abnormalities or Markers of kidney damage (including abnormalities in the composition of the blood or urine or abnormalities in imaging tests). Lab Interpretation Abnormal (test code = 34956-1) [facility] (ALB, T.PRO, BILI T, BU/BC, ALT, AST, ALK PHOS)2019-03-11 20:52:00 Test Item Value Reference Range Interpretation Comments TOTAL BILI (test code = 2631545444) 0.6 mg/dL 0.1-1.1 BILI UNCON (test code = 7205369079) 0.5 mg/dL 0.1-1.1 BILI CONJ (test code = 4874018117) 0.0 mg/dL 0-0.3 T PROTEIN (test code = 2386080865) 7.7 g/dL 6.3-8.2 ALBUMIN (test code = 3527399985) 4.9 g/dL 3.5-5 ALK PHOS (test code = 0256050926) 61 U/L 34-122 ALT(SGPT) (test code = 1531788926) 26 U/L 9-51 AST(SGOT) (test code = 4391866603) 28 U/L 13-40 Lab Interpretation (test code = Normal 63551-0) [facility] CenterLipase [id number] 20:52:00 Test Item Value Reference Range Interpretation Comments LIPASE (test code = 3462458782) 22 U/L 0-220 Lab Interpretation (test code = Normal 40062-2) [facility] CenteraPTT2019-09-05 20:40:00 Test Item Value Reference Range Interpretation Comments APTT Patient (test See_Comment L [Automat ed code = 3173-2) message] The system which generated this result transmitted reference range : 23 - 38 Seconds . The reference range was not used to interpr et this result as normal/abnormal . MADISYN (test code = MADISYN) The [facility] patient population mean normal value for aPTT is 30 seconds. Lab Interpretation Abnormal (test code = 63178-3) [facility] CenterProthrombin Time (PT) / [id number] 20:38:00 Test Item Value Reference Range Interpretation Comments PROTIME PATIENT (test See_Comment [Auto mated message] code = 5964-2) The system wh ich generated this result transmitted ref erence range: 12.0 - 1 4.7 Seconds. The re ference range was not u sed to interpret this result as normal/abnor mal. INR (test code = 6301-6) Nor mal INR <1.1; Warfarin Therap eutic range 2.0 to 3. 0 or 2.5 to 3.5, dep ending upon the indica tions. Lab Interpretation (test Normal code = 98469-7) [facility] CenterCBC WITH [id number] 20:33:00 Test Item Value Reference Range Interpretation Comments WBC (test code = See_Comment [Automated 6690-2) message] The sy stem which generated this result transmitted reference range : 4.30 - 11.10 10*3/?L. The reference range was not used to interpret this result as normal/abnormal . RBC (test code = See_Comment [Automated 789-8) message] The sy stem which generated this result transmitted reference range : 3.93 - 5.25 10*6/?L. The reference range was not used to interpret this result as normal/abnormal . HGB (test code = 13.3 g/dL 11.6-15 718-7) HCT (test code = 39.1 % 35.7-45.2 4544-3) MCV (test code = 93.5 fL 80.6-95.5 787-2) MCH (test code = 31.8 pg 25.9-32.8 785-6) MCHC (test code = 34.0 g/dL 31.6-35.1 786-4) RDW-SD (test code = 44.3 fL 39-49.9 75660-6) RDW-CV (test code = 12.9 % 12-15.5 788-0) PLT (test code = See_Comment [Automated 777-3) message] The sy stem which generated this result transmitted reference range : 166 - 358 10*3/ ?L. The reference r aiden was not used to interpret this result as normal/abnormal . MPV (test code = 10.9 fL 9.5-12.9 15941-7) NRBC/100 WBC (test See_Comment [Automat ed code = 7795520363) message] The system which generated this result transmitted reference range : 0.0 - 10.0 /100 WBCs. The refer ence range was not u sed to interpret th is result as normal/abnormal . NRBC x10^3 (test code <0.01 See_Comment [Auto mated = 5554769940) message] The s ystem which generated this result transmitted reference range : 10*3/?L. The reference range was not used to interpret this result as normal/abnormal . GRAN MAT (NEUT) % 86.3 % (test code = 770-8) IMM GRAN % (test code 0.50 % = 9945372684) LYMPH % (test code = 8.8 % 736-9) MONO % (test code = 4.0 % 5905-5) EOS % (test code = 0.2 % 713-8) BASO % (test code = 0.2 % 706-2) GRAN MAT x10^3(ANC) 8.24 10*3/uL 1.88-7.09 H (test code = 2888625474) IMM GRAN x10^3 (test 0.05 10*3/uL 0-0.06 code = 6268315178) LYMPH x10^3 (test code 0.84 10*3/uL 1.32-3.29 L = 731-0) MONO x10^3 (test code 0.38 10*3/uL 0.33-0.92 = 742-7) EOS x10^3 (test code = <0.03 0.03-0.39 L 711-2) BASO x10^3 (test code <0.03 0.01-0.07 = 704-7) Lab Interpretation Abnormal (test code = 93142-6) [facility]"
[2021-12-01] MEDS ORDERED: CEFAZOLIN SODIUM 1 GM/VIAL ONE (10:20)
[2021-12-01] MEDS ORDERED: D5W 250 ML IV ONE (10:20)
[2021-12-01] MEDS ORDERED: NA CHLORIDE 0.9% 100 ML ONE (10:20)
[2021-12-01 10:53] LABS: Absolute Lymphocytes (CBC) 1.6 K/uL (0.7-4.9); Hematocrit 35.3 % (36.0-45.0); Lymphocytes % 18.1 % (15.3-44.8); MPV 9.1 fL (7.6-11.3); RBC Red Blood Cell Count 3.86 M/uL (3.86-4.86)
[2021-12-01 11:03] LABS: Potassium 3.8 mmol/L (3.5-5.1)
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
[2021-12-01 11:44] LABS: Barbiturates NEGATIVE (NEGATIVE); Benzodiazepines NEGATIVE (NEGATIVE); METHAMPHETAM NEGATIVE (NEGATIVE); Methadone NEGATIVE (NEGATIVE); Opiates NEGATIVE (NEGATIVE); Phencyclidine NEGATIVE (NEGATIVE); THC Cannibis NEGATIVE (NEGATIVE)
[2021-12-01 11:45] LABS: Urine Blood Negative (Negative); Urine Glucose Negative (Negative); Urine Protein Negative (Negative)
[2021-12-01 11:58] LABS: Protime INR 0.96
[2021-12-01 12:34] LABS: ALT/SGPT 21 U/L (12-78); AST/SGOT 12 U/L (15-37); Albumin 4.2 g/dL (3.4-5.0); Alkaline Phosphatase 74 U/L (45-117); Bilirubin Total 0.3 mg/dL (0.2-1.0); Protein, Total 7.7 g/dL (6.4-8.2)
[2021-12-01 12:35] LABS: Bilirubin Direct < 0.1 mg/dL (0-0.2)
[2021-12-01] MEDS ORDERED: DERMABOND SKIN ADHESIVE TOP ONE (14:45)
[2021-12-01 15:57] LABS: Cocaine NEGATIVE (NEGATIVE)
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
[2021-12-01 19:00] VITALS: O2SAT 98
[2021-12-01 19:01] VITALS: BP 122/63; TEMP 98.1
--- NOTE | 2021-12-04 12:24 | EKG ---
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
== END 2021-12-01 18:46 ==
LOC: ER 09:57
DX: S21.112A Laceration without foreign body of left front wall of thorax without penetration into thoracic cavity, initial encounter (principal); X78.1XXA Intentional self-harm by knife, initial encounter; I10 Essential (primary) hypertension; E03.9 Hypothyroidism, unspecified; E78.00 Pure hypercholesterolemia, unspecified; J44.9 Chronic obstructive pulmonary disease, unspecified; J45.909 Unspecified asthma, uncomplicated; Z88.2 Allergy status to sulfonamides; Z88.6 Allergy status to analgesic agent; Z91.010 Allergy to peanuts; Z20.822 Contact with and (suspected) exposure to COVID-19
CPT/HCPCS: 96365; 93005; 85025; 80048; 36415; 80320; 86900; 86850; 80329 ×2; 85610; 86901; 80076; 85730; 81003; 80307; 71250; 71045; 99291; 99292; 96366; U0003; J7060; J0690

== ENCOUNTER 2022-01-11 15:42 | Emergency (ER) | payer OTHER ==
--- NOTE | 2022-01-11 16:48 | RAD REPORT ---
EXAM DESCRIPTION: [place] Single View01/11/2022 4:22 pm CLINICAL HISTORY: cough COMPARISON: November 2021 FINDINGS: The lungs appear clear of acute infiltrate. The heart is normal size IMPRESSION: No acute abnormalities displayed
--- NOTE | 2022-01-11 19:07 | ER ---
Nurse's Notes [facility] Name: Dolores Pérez Age: 61 yrs Sex: Female : 1960 Arrival Date: 01/11/2022 Time: 15:44 Bed 10 Private MD: Melvin Thao R Diagnosis: Acute bronchitis, unspecified Presentation: 01/11 16:38 Chief complaint: Patient states: Cough, fever, hoarse voice x5 days. Coronavirus jl7 screen: Client presents with at least one sign or symptom that may indicate coronavirus-19. Standard/surgical mask placed on the client. Provider contacted for isolation considerations. Ebola Screen: No symptoms or risks identified at this time. Initial Sepsis Screen: Does the patient meet any 2 criteria? No. Patient's initial sepsis screen is negative. Does the patient have a suspected source of infection? No. Patient's initial sepsis screen is negative. Risk Assessment: Do you want to hurt yourself or someone else? Patient reports no desire to harm self or others. Onset of symptoms was January 06, 2022. 16:38 Method Of Arrival: Ambulatory [facility] 16:38 Acuity: AARON 4 jl7 Triage Assessment: 16:40 General: Appears in no apparent distress. uncomfortable, Behavior is calm, cooperative, jl7 appropriate for age. Pain: Complains of pain in sore throat. EENT: Reports pain in mouth. Historical: - Allergies: 16:40 NSAIDS; jl7 16:40 peanuts; jl7 16:40 Sulfa (Sulfonamide Antibiotics); jl7 16:40 Prednisone; jl7 - PMHx: 16:40 Hypothyroidism; Asthma; COPD; High Cholesterol; Hypertension; Diabetes mellitus; jl7 Transient cerebral ischemia; - Immunization history:: Client reports receiving the 2nd dose of the Covid vaccine. - Social history:: Smoking status: Patient denies any tobacco usage or history of. Screenin:00 Abuse screen: Denies threats or abuse. Denies injuries from another. Nutritional jl7 screening: No deficits noted. Tuberculosis screening: No symptoms or risk factors identified. Fall Risk None identified. Assessment: 16:00 Respiratory: Airway is patent Respiratory effort is even, unlabored, Respiratory jl7 pattern is regular, symmetrical, . EENT: Throat is clear. 17:00 Reassessment: Patient appears in no apparent distress at this time. No changes from jl7 previously documented assessment. Patient and/or family updated on plan of care and expected duration. Pain level reassessed. Patient is alert, oriented x 3, equal unlabored respirations, skin warm/dry/pink. 18:00 Reassessment: Patient appears in no apparent distress at this time. No changes from jl7 previously documented assessment. Patient and/or family updated on plan of care and expected duration. Pain level reassessed. Patient is alert, oriented x 3, equal unlabored respirations, skin warm/dry/pink. 19:47 Reassessment: Patient states feeling better. Patient states symptoms have improved. tw5 Vital Signs: 16:38 BP 147 / 98; Pulse 103; Resp 22; Temp 99; Pulse Ox 99% ; Weight 58.97 kg; Height 5 ft. jl7 7 in. (170.18 cm); 19:47 Pulse 81; Resp 18; Pulse Ox 100% ; tw5 16:38 Body Mass Index 20.36 (58.97 kg, 170.18 cm) jl7 ED Course: 15:44 Patient arrived in ED. am2 15:45 Melvin Thao MD is Private Physician. am2 15:48 Felicia Chavez [facility]-C [facility] kb 15:48 Lam Yi DO is Attending Physician. kb 16:00 No provider procedures requiring assistance completed. jl7 16:00 Patient has correct armband on for positive identification. Bed in low position. Call [facility] light in reach. Side rails up X 1. 16:24 Chest Single View XRAY In Process Unspecified. EDMS 16:24 COVID-19 SARS RT PCR (Document "Date of Onset" if Symptomatic) Sent. mb7 16:24 Flu Sent. mb7 16:40 Triage completed. jl7 16:40 Arm band placed on right wrist. jl7 19:13 Dewayne Coleman, JADEN is Primary Nurse. jl7 19:47 Pulse ox on. tw5 Administered Medications: 19:46 Drug: Xopenex (levalbuterol) 1.25 mg Route: Inhalation; tw5 19:46 Drug: AtroVENT (ipratropium) Aerosol 0.5 mg Route: Inhalation; tw5 Medication: 19:14 VIS not applicable for this client. jl7 Outcome: 19:07 Discharge ordered by . kb 20:04 Patient left the ED. tw5 Signatures: Dispatcher [employer] EDFelicia Triana FNP-C FNP-Dewayne Pimentel RN RN jl7 Donna Marx Tiffany tw5 Cherise Encarnacion mb7
--- NOTE | 2022-01-11 19:07 | EDPHYS ---
Physician Documentation [facility] Name: Dolores Pérez Age: 61 yrs Sex: Female : 1960 Arrival Date: 01/11/2022 Time: 15:44 Bed 10 Private MD: Melvin Thao R ED Physician Lam Yi HPI: 01/11 23:59 This 61 yrs old Female presents to ER via Ambulatory with complaints of Cough, Sore kb Throat. 23:59 The patient has not experienced similar symptoms in the past. The patient has not kb recently seen a physician. 23:59 The patient or guardian reports cough. Onset: The symptoms/episode began/occurred 5 kb day(s) ago, and became worse. Severity of symptoms: At their worst the symptoms were moderate, in the emergency department the symptoms are unchanged. Modifying factors: The symptoms are alleviated by nothing, the symptoms are aggravated by nothing. Associated signs and symptoms: Pertinent positives: fever, sore throat. Pt reports fever, cough and hoarseness that started 5 days ago and has gotten worse. States she tested negative for covid when symptoms started, but her employer is requiring another test now because pt has gotten worse. . Historical: - Allergies: 16:40 NSAIDS; jl7 16:40 peanuts; jl7 16:40 Sulfa (Sulfonamide Antibiotics); jl7 16:40 Prednisone; jl7 - PMHx: 16:40 Hypothyroidism; Asthma; COPD; High Cholesterol; Hypertension; Diabetes mellitus; jl7 Transient cerebral ischemia; - Immunization history:: Client reports receiving the 2nd dose of the Covid vaccine. - Social history:: Smoking status: Patient denies any tobacco usage or history of. ROS: 01/12 00:00 Cardiovascular: Negative for chest pain, palpitations, and edema. kb Constitutional: Positive for fever, malaise. ENT: Positive for hoarseness. Respiratory: Positive for cough. All other systems are negative. Exam: 00:09 Constitutional: This is a well developed, well nourished patient who is awake, alert, kb and in no acute distress. Head/Face: Normocephalic, atraumatic. ENT: Moist Mucous membranes Cardiovascular: Regular rate and rhythm with a normal S1 and S2. No gallops, murmurs, or rubs. No pulse deficits. Abdomen/GI: Soft, non-tender. No distention Skin: Warm, dry with normal turgor. Normal color. MS/ Extremity: Pulses equal, no cyanosis. Neurovascular intact. Full, normal range of motion. Neuro: Awake and alert, GCS 15, oriented to person, place, time, and situation. Moves all extremities. Normal gait. Psych: Awake, alert, with orientation to person, place and time. Behavior, mood, and affect are within normal limits. 00:09 Respiratory: the patient does not display signs of respiratory distress, Respirations: normal, Breath sounds: wheezing: expiratory that is mild, is scattered. Vital Signs: 01/11 16:38 BP 147 / 98; Pulse 103; Resp 22; Temp 99; Pulse Ox 99% ; Weight 58.97 kg; Height 5 ft. jl7 7 in. (170.18 cm); 19:47 Pulse 81; Resp 18; Pulse Ox 100% ; tw5 16:38 Body Mass Index 20.36 (58.97 kg, 170.18 cm) jl7 MDM: 15:55 Patient medically screened. kb 01/12 00:01 Data reviewed: vital signs, nurses notes. Data interpreted: Pulse oximetry: on room air kb is 100 %. Interpretation: normal. Counseling: I had a detailed discussion with the patient and/or guardian regarding: the historical points, exam findings, and any diagnostic results supporting the discharge/admit diagnosis, lab results, radiology results, the need for outpatient follow up, a family practitioner, to return to the emergency department if symptoms worsen or persist or if there are any questions or concerns that arise at home. ED course: Antibiotics given due to history of asthma and COPD. Pt feeling better after neb treatment. 01/11 16:07 Order name: Flu; Complete Time: 17:13 kb 01/11 16:07 Order name: COVID-19 SARS RT PCR (Document "Date of Onset" if Symptomatic); Complete kb Time: 18:41 01/11 16:07 Order name: Chest Single View XRAY; Complete Time: 16:54 kb Administered Medications: 01/11 19:46 Drug: Xopenex (levalbuterol) 1.25 mg Route: Inhalation; tw5 19:46 Drug: AtroVENT (ipratropium) Aerosol 0.5 mg Route: Inhalation; tw5 Disposition Summary: 01/11/22 19:07 Discharge Ordered Location: Home kb Condition: Stable kb Diagnosis - Acute bronchitis, unspecified kb Followup: kb - With: Emergency Department - When: As needed - Reason: Worsening of condition Followup: kb - With: Private Physician - When: 2 - 3 days - Reason: Recheck today's complaints, Continuance of care, Re-evaluation by your physician Discharge Instructions: - Discharge Summary Sheet kb - Acute Bronchitis, Adult, [id number] kb Forms: - Medication Reconciliation Form kb - Thank You Letter kb - Antibiotic Education kb - Prescription Opioid Use kb Prescriptions: - albuterol sulfate 90 mcg/actuation Inhalation HFA aerosol inhaler - inhale 2 puff by INHALATION route every 4-6 hours As needed; 1 Inhaler; kb Refills: 0, Product Selection Permitted - Zithromax 500 mg Oral Tablet - take 1 tablet by ORAL route once daily for 5 days; 5 tablet; Refills: 0, kb Product Selection Permitted Signatures: Dispatcher [employer] EDMS Felicia Chavez, COLEMAN-C COLEMAN-Dewayne Pimentel RN RN jl7 Conchita Syed tw5 Corrections: (The following items were deleted from the chart) 19:14 19:07 Acute upper respiratory infection, unspecified kb kb 01/12 00:09 00:01 ED course: Antibiotics given due to history of asthma and COPD. kb kb
[2022-01-11] MEDS ORDERED: LEVALBUTEROL 1.25 MG/3 ML NEB ONE (19:45)
[2022-01-11] MEDS ORDERED: IPRATROPIUM BROM 0.5MG/2.5ML ONE (19:45)
[2022-01-11 20:08] VITALS: BP 147/98; TEMP 99
[2022-01-11 20:09] VITALS: O2SAT 100
== END 2022-01-11 20:04 | disposition home or self-care (01) ==
LOC: ER 15:42
DX: J20.9 Acute bronchitis, unspecified (principal); Z20.822 Contact with and (suspected) exposure to COVID-19; I10 Essential (primary) hypertension; Z88.2 Allergy status to sulfonamides; Z88.6 Allergy status to analgesic agent; Z88.8 Allergy status to other drugs, medicaments and biological substances; Z91.010 Allergy to peanuts
CPT/HCPCS: 87804 ×2; 71045; U0003

== ENCOUNTER 2022-11-25 19:35 | Emergency (ER) | payer OTHER ==
--- OUTSIDE RECORDS SUMMARY | 2022-11-25 19:42 | XMS REPORT | Continuity of Care Document ---
:1960 Author Organization [facility] t Address [address] [facility] [address] [place] [id number] Care Team Providers Name Role Phone PAULINA DUNHAM Primary Care Physician Unavailable Susan Rodriguez Attending Clinician Unknown, Attending Attending Clinician Unavailable SUSAN LEE Attending Clinician Unavailable Doctor Unassigned, [place] Attending Clinician Unavailable Only, Ang Db Test Attending Clinician Unavailable Monik Charles MD Attending Clinician MONIK CHARLES Attending Clinician Unavailable ALEX OCONNELL Attending Clinician Unavailable Alex Abdi Attending Clinician SHERRILL CONNOR Attending Clinician Unavailable Sherrill Connor MD Attending Clinician CAMERON DALTON Attending Clinician Unavailable Cameron Nick Attending Clinician Nirmala Daniels RN Attending Clinician Unavailable DARIUS LEDESMA Attending Clinician Unavailable Darius Barragan Attending Clinician JOSE ALEJANDRO CASTANO Attending Clinician Unavailable Jose Alejandro Rosas Attending Clinician MARCELINA CHE Attending Clinician Unavailable Neida Jiménez Attending Clinician Marcelina Che MD Attending Clinician NICOLE ISSA Attending Clinician Unavailable Lab, Adc Fam Pob I Attending Clinician Unavailable Nicole Miller Attending Clinician Diana Berg DO Attending Clinician Mariangel Miller Attending Clinician ALEX OCONNELL Admitting Clinician Unavailable CAMERON DALTON Admitting Clinician Unavailable DARIUS LEDESMA Admitting Clinician Unavailable JOSE ALEJANDRO CASTANO Admitting Clinician Unavailable MARCELINA CHE Admitting Clinician Unavailable Marcelina Che MD Admitting Clinician Payers Payer Name Policy Type Policy Number Effective Date Expiration Date Teodora FALK II [id number] 2016 00:00:00 Problems Condition Condition Condition Status [...] 4-10 it y of dism dism 00:00: Medical Branch Primary Primary Disease Active Univers hypothyroi hypothyroi 4-10 it y of dism dism 00:00: [place] 00 Medical Branch Allergies, Adverse Reactions, Alerts Allergy Allergy Status Severity Reaction(s) Onset Inactive Treating Comm ents Source Name Type Date Date Clinician ALBA DRUG Active Anaphylaxis Unive rs INGREDI 01-06 ity of 00:00: [place] [facility] Alba Propensi Active Anaphylaxis Uni vers ty to 01-06 ity of adverse 00:00: [place] reaction 00 Medical s Branch NAPROXEN DRUG Active Rash 2020-07 Univers SODIUM INGREDI 1-13 ity of 00:00: [place] 00 Medical Branch METFORMI DRUG Active Diarrhea 2020-07 Univer s N INGREDI 1 ity of 00:00: [place] 00 Medical Branch Naproxen Propensi Active Rash 2020-07 Able to Unive rs Sodium ty to 13 take ity of adverse 00:00: ibuprofen [place] reaction and asa Medical s Branch Metformi Propensi Active Diarrhea 2020-07 Univ ers n ty to 13 ity of adverse 00:00: [place] reaction 00 [...] 00:00: [place] reaction 00 Medical s Branch ASPIRIN DRUG Active Unknown-Cmnt Uni [...] 4-10 ity of adverse 00:00: [place] reaction 00 Medical s Branch Nsaids Propensi Active Hives Univers (Non-Ryan ty to 4-10 ity of roidal adverse 00:00: [place] Anti-Inf reaction 00 Medica l lammator s Branch y Drug) Sulfa Propensi Active Rash Univers (Sulfona ty to 4-10 ity of mide adverse 00:00: [place] Antibiot reaction 00 Medica l ics) s Branch Sulfa Propensi Active Rash Univers (Sulfona ty to 4-10 ity of mide adverse 00:00: [place] Antibiot reaction 00 Medica l ics) s Branch Social History Social Habit Start Date Stop Date Quantity Comments Source Exposure to 2022-08-14 2022-08-24 Not sure [facility] SARS-CoV-2 00:00:00 09:35:00 [facility] (event) Branch Tobacco use and 2022-08-24 2022-08-24 Smokeless tobacco Un iversity of exposure 00:00:00 00:00:00 non-user [facility] Sex Assigned At [birth year] Universit y of 00:00:00 00:00:00 [facility] Smoking Status Start Date Stop Date Source Never smoked tobacco [facility] Medications Ordered Filled Start Stop Current Ordering Indication Dosage Frequency Signature Comments Components Source Medication Medication Date Date Medication? Clinician (SIG) Name Name altagracia Yes [id number] 5mL Take 5 mL Univers mine-pseudo 2-18 by mouth 4 it y of ephedrine-D 00:00: (four) [place] M (BROMFED 00 times Medical DM) 2-30-10 daily as Bran ch mg/5 mL needed for syrup Congestion /Allergies . benzonatate Yes [id number] 100mg Take 1 Univers 100 mg 7-03 capsule by ity of capsule 00:00: mouth 3 [place] 00 (three) Medical times Branch daily as needed for Cough. loratadine Yes [id number] 10mg Take 1 U nivers (CLARITIN) 7-03 tablet by ity of 10 mg 00:00: mouth at [place] tablet 00 bedtime as Medical needed for Branch Allergies. benzonatate Yes [id number] 100mg Take 1 Univers 100 mg 7-03 capsule by ity of capsule 00:00: mouth 3 [place] 00 (three) Medical times Branch daily as needed for Cough. loratadine Yes [id number] 10mg Take 1 U nivers (CLARITIN) 7-03 tablet by ity of 10 mg 00:00: mouth at [place] tablet 00 bedtime as Medical needed for Branch Allergies. benzonatate 0 Yes [id number] 100mg Take 1 Univers 100 mg 7-03 capsule by ity of capsule 00:00: mouth 3 (three) Medical times Branch daily as needed for Cough. loratadine 2-0 Yes [id number] 10mg Take 1 U nivers (CLARITIN) 7-03 tablet by ity of 10 mg 00:00: mouth at [place] tablet 00 bedtime as Medical needed for Branch Allergies. benzonatate 2-0 Yes [id number] 100mg Take 1 Univers 100 mg 7-03 capsule by ity of capsule 00:00: mouth 3 (three) Medical times Branch daily as needed for Cough. loratadine 2-0 Yes [id number] 10mg Take 1 U nivers (CLARITIN) 7-03 tablet by ity of 10 mg 00:00: mouth at [place] tablet 00 bedtime as Medical needed for Branch Allergies. benzonatate 2-0 Yes [id number] 100mg Take 1 Univers 100 mg 7-03 capsule by ity of capsule 00:00: mouth (three) Medical times Branch daily as needed for Cough. loratadine 2-0 Yes [id number] 10mg Take 1 U nivers (CLARITIN) 7-03 tablet by ity of 10 mg 00:00: mouth at [place] tablet 00 bedtime as Medical needed for Branch Allergies. benzonatate 2-0 Yes [id number] 100mg Take 1 Univers 100 mg 2-01 capsule by ity of capsule 00:00: mouth (three) Medical times Branch daily as needed for Cough. benzonatate 2-0 Yes [id number] 100mg Take 1 Univers 100 mg 2-01 capsule by ity of capsule 00:00: mouth (three) Medical times Branch daily as needed for Cough. benzonatate 2-0 Yes [id number] 100mg Take 1 Univers 100 mg 2-01 capsule by ity of capsule 00:00: mouth (three) Medical times Branch daily as needed for Cough. benzonatate 2022-0 Yes [id number] 100mg Take 1 Univers 100 mg 2-01 capsule by ity of capsule 00:00: mouth (three) Medical times Branch daily as needed for Cough. benzonatate 2022-0 Yes [id number] 100mg Take 1 Univers 100 mg 2-01 capsule by ity of capsule 00:00: mouth (three) Medical times Branch daily as needed for Cough. benzonatate 0 Yes [id number] 100mg Take 1 Univers 100 mg 2-01 capsule by ity of capsule 00:00: mouth 3 00 (three) Medical times Branch daily as needed for Cough. benzonatate 2021-0 Yes [id number] 100mg Take 1 Univers 100 mg 2-01 capsule by ity of capsule 00:00: mouth 3 00 (three) Medical times Branch daily as needed for Cough. benzonatate 0 Yes [id number] 100mg Take 1 Univers 100 mg 2-01 capsule by ity of capsule 00:00: mouth 3 00 (three) Medical times Branch daily as needed for Cough. benzonatate 2021-0 Yes [id number] 100mg Take 1 Univers 100 mg 2-01 capsule by ity of capsule 00:00: mouth 3 [place] 00 (three) Medical times Branch daily as needed for Cough. ampicillin- 2020-07- No 3g 3 g, IV Un brice sulbactam 08-31 Piggyback, ity of (UNASYN) 3 01:00: 00:47 ONCE, 1 [place] as g in NaCl 00 :00 dose, On Medica l 0.9% (NS) Fri Branch 100 mL 06/29/21 MINI-BAG at 1900, Administer over 30 Minutes, 100 mL
R varsha for Anti-Infec tive: Documented Infection< br>Documen zoila Infection Site: Abdominal< br>Dura tion of Therapy: Other (see Comments) iopamidol 2020-07- No [id number] 120mL 120 mL, Univers (ISOVUE 08-31 Intravenou ity o f 370-500 mL) 00:15: 23:08 s, ONCE, 1 [place] injection 00 :00 dose, On Medica l 120 mL Fri Branch 06/29/21 at 1815, Routine amoxicillin 2020-07- No [id number] 1{tbl} Take 1 Univers -clavulanat 08-30 tablet by it y of e 875-125 [...] Indication s: acute pain ondansetron 2020-07- No [id number] 4mg Take 1 Univers 4 mg tablet 2-24 12-30 tablet by it y of 00:00: 05:59 mouth [place] 00 :00 every 8 Medical (eight) Branch hours for 5 days. atorvastati 2020-07 Yes 10mg 10 mg, Univ ers n (LIPITOR) 1-15 Oral, QHS, it y of tablet 10 03:00: First dose [place] mg 00 on [facility] 05/20/21 Branch at 2100, Until Discontinu ed, Routine atorvastati 2020-07 Yes 10mg Take 10 mg Univers n 10 mg 1-14 by mouth ity of tablet 17:23: at [place] bedtime. Medical Branch spironolact 2020-07 Yes 25mg [...] 2 ity of tablet 17:23: (two) [place] times Medical daily. Branch pantoprazol 2020-07 Yes [...] mouth at Amandeep as ORAL) 01 bedtime. [facility] Branch enoxaparin 2020-07 Yes 40mg 40 mg, Unive rs (LOVENOX) 1-14 Subcutaneo ity of injection 15:00: [place], DAILY, [place] 40 mg 00 First dose Medical on [facility] 05/20/21 at 0900, Until Discontinu ed, Routine clopidogreL 2020-07 Yes 75mg 75 mg, Univ ers (PLAVIX) 1-14 Oral, QAM, ity o f tablet 75 15:00: First dose [place] mg 00 on [facility] 05/20/21 Branch at 0900, Until Discontinu ed, Routine ALPRAZolam 2020-07 Yes .5mg 0.5 mg, Univ ers (XANAX) 1-14 Oral, ity of tablet 0.5 15:00: DAILY, [place] mg 00 First dose Medical on [facility] 05/20/21 at 0900, Until Discontinu ed, Routine spironolact 2020-07 Yes 25mg 25 mg, Univ ers one 1-14 Oral, BID, ity of (ALDACTONE) 14:00: First dose [place] tablet 25 00 on [facility] 05/20/21 Branch at 0800, Until Discontinu ed, Routine Sliding 2020-07 Yes Subcutaneo Univ ers Scale 1-14 us, AC, ity of Insulin-Reg 13:30: First dose [place] ular + [facility] Branch at 0730, Until Discontinu ed, Routine levothyroxi 2020-07 Yes 100ug 100 mcg, U nivers ne 1-14 Oral, ity of (SYNTHROID) 12:00: QAM-0600, [place] tablet 100 00 First dose Med ical mcg on [facility] 05/20/21 at 0600, Until Discontinu ed, Routine pantoprazol 2020-07 Yes 40mg 40 mg, Univ ers e 1-14 Oral, ity of (PROTONIX) 06:30: DAILY, [place] EC tablet 00 First dose Medi hermelindo 40 mg (after Branch last modificati on) on [place] 05/20/21 at 0030, Until Discontinu ed cyclobenzap 2020-07 Yes 10mg 10 mg, Univ ers rine 1-14 Oral, ity of (FLEXERIL) 06:12: TIDPRN, [place] tablet 10 13 Starting Medica l mg on [facility] 05/20/21 at 0012, Until Discontinu ed, Routine, Muscle Spasms, leg pain polyethylen 2020-07 Yes 17g 17 g, Unive rs e glycol 1-14 Oral, ity of 3350 powder 06:04: [id number], [place] 17 g 16 Starting Medical on [facility] 05/20/21 at 0004, Until Discontinu ed, Routine, Constipati on glucagon 2020-07 Yes 1mg 1 mg, Univers (GLUCAGEN 1-14 Intramuscu ity of DIAGNOSTIC 05:29: lar, PRN, [place] KIT) 29 Starting Medical injection 1 on [facility] 05/19/21 at 2329, Until Discontinu ed, JEFFREY, Blood Glucose < or = 70 mg/dL and patient is unable to swallow or has mental changes. dextrose 50 2020-07 Yes 25mL 25 mL, Univ ers % in water -14 Slow IV ity of (D50W) 05:29: Push, PRN, [place] injection 29 Starting Medica l 25 mL on [facility] 05/19/21 at 2329, Until Discontinu ed, JEFFREY, Blood Glucose < or = 70 mg/dL and patient is unable to swallow or has mental status changes. ondansetron 2020-07 Yes 4mg 4 mg, Slow Univers (ZOFRAN 1-14 IV Push, ity of (PF)) 05:29: Q6HPRN, [place] injection 4 21 Starting Medi hermelindo mg on [facility] 05/19/21 at 2329, Until Discontinu ed, Routine, Nausea and Vomiting (N/V) morpHINE 2020-07 No 2mg 2 mg, Slow Un brice injection 2 1-14 11-15 IV Push, ity of mg 05:29: 05:28 Q4HPRN, [place] 11 :11 Starting Medical on [facility] Branch 05/19/21 at 2329, Until 05/20/21 at 2328, Routine, Pain (scale 7-10), Chest pain traMADoL 2020-07- No 50mg 50 mg, Univer s (ULTRAM) 07-2016 Oral, ity of tablet 50 05:29: 05:28 Q8HPRN, [place] mg 08 :08 Starting Medical on [facility] Branch 05/19/21 at 2329, Until 05/21/21 at 2328, Routine, Pain (scale 4-6) acetaminoph 2020-07 Yes 650mg 650 mg, Un brice en 14 Oral, ity of (TYLENOL) 05:29: Q6HPRN, [place] tablet 650 05 Starting Medic al mg on [facility] Branch 05/19/21 at 2329, Until Discontinu ed, Routine, Pain (scale 1-3) omeprazole 2020-07- No 20mg Take 20 mg Univers 20 mg 07-1913 by mouth ity of capsule 23:30: 00:00 daily. [place] 33 :00 [facility] guaiFENesin 2020- No 100mg 100 mg, U nivers 100 mg/5 mL 09-1411 Oral, ity of solution 05:00: 16:59 ONCE, 1 [place] 100 mg 00 :00 dose, Fri [facility] 09/13/20 at Branch 2300, Routine ketorolac 2020- No 30mg 30 mg, Unive rs (TORADOL) 09-1411 Slow IV ity of injection 03:30: 02:27 Push, [place] 30 mg 00 :00 ONCE, 1 Medical dose, [facility] 09/13/20 at 2130, JEFFREY
Fa culty member approving Restricted medication : DIANA BERG benzonatate Yes [id number] 100mg Take 1 Univers 100 mg 3-10 capsule by ity of capsule 00:00: mouth 3 [place] 00 (three) Medical times [place] daily as needed for Cough. benzonatate Yes [id number] 100mg Take 1 Univers 100 mg 3-10 capsule by ity of capsule 00:00: mouth 3 [place] 00 (three) Medical times Branch daily as needed for Cough. benzonatate 2020- No [id number] 100mg Take 1 Univers 100 mg 09-13 capsule by ity of capsule 00:00: 00:00 mouth 3 [place] 00 :00 (three) Medical times Branch daily as needed for Cough. ipratropium 2019-0 2019- No 6mL 6 mL, Univ ers -albuterol 07-28 Inhalation it y of (DUONEB) 02:15: 01:21 , ONCE, 1 [place] as 0.5 mg-3 00 :00 dose, Tue Medica l mg(2.5 mg 07/27/19 at Bran ch base)/3 mL 2014, nebulizer Routine solution 6 mL codeine-gua 2019-0 2019- No 10mL 10 mL, Uni vers ifenesin 07-28 Oral, ity of (ROBITUSSIN 01:30: 00:55 ONCE, 1 [place] AC) 10-100 00 :00 dose, Tue Medi hermelindo mg/5 mL 07/27/19 at Branch solution 10 1929, JEFFREY mL codeine-gua 2019-0 Yes [id number] 10mL Take 10 mL Univers ifenesin -21 by mouth ity of 10-100 mg/5 00:00: every 6 [place] as mL solution 00 (six) Medical hours as Branch needed for Cough. albuterol 2020-0 Yes [id number] 2.5mg Inhale 3 Univers 2.5 mg /3 1-21 mL every 4 ity of mL (0.083 00:00: (four) [place] %) 00 hours as Medical nebulizer needed for Bran ch solution Wheezing or Shortness of Breath. May also nebulize one extra every 6 hours. albuterol 2020-0 Yes [id number] 2.5mg Inhale 3 Univers 2.5 mg /3 1-21 mL every 4 ity of mL (0.083 00:00: (four) [place] %) 00 hours as Medical nebulizer needed for Bran ch solution Wheezing or Shortness of Breath. May also nebulize one extra every 6 hours. albuterol 2020-0 Yes [id number] 2.5mg Inhale 3 Univers 2.5 mg /3 1-21 mL every 4 ity of mL (0.083 00:00: (four) [place] %) 00 hours as Medical nebulizer needed for Bran ch solution Wheezing or Shortness of Breath. May also nebulize one extra every 6 hours. albuterol 2020-0 Yes [id number] 2.5mg Inhale 3 Univers 2.5 mg /3 1-21 mL every 4 ity of mL (0.083 00:00: (four) [place] %) 00 hours as Medical nebulizer needed for Bran ch solution Wheezing or Shortness of Breath. May also nebulize one extra every 6 hours. albuterol 2020-0 Yes [id number] 2.5mg Inhale 3 Univers 2.5 mg /3 1-21 mL every 4 ity of mL (0.083 00:00: (four) [place] %) 00 hours as Medical nebulizer needed for Bran ch solution Wheezing or Shortness of Breath. May also nebulize one extra every 6 hours. albuterol 2020-0 Yes [id number] 2.5mg Inhale 3 Univers 2.5 mg /3 1-21 mL every 4 ity of mL (0.083 00:00: (four) [place] %) 00 hours as Medical nebulizer needed for Bran ch solution Wheezing or Shortness of Breath. May also nebulize one extra every 6 hours. albuterol 2020-0 Yes [id number] 2.5mg Inhale 3 Univers 2.5 mg /3 1-21 mL every 4 ity of mL (0.083 00:00: (four) [place] %) 00 hours as Medical nebulizer needed for Bran ch solution Wheezing or Shortness of Breath. May also nebulize one extra every 6 hours. albuterol 2020-0 Yes [id number] 2.5mg Inhale 3 Univers 2.5 mg /3 1-21 mL every 4 ity of mL (0.083 00:00: (four) [place] %) 00 hours as Medical nebulizer needed for Bran ch solution Wheezing or Shortness of Breath. May also nebulize one extra every 6 hours. albuterol 2020-0 Yes [id number] 2.5mg Inhale 3 Univers 2.5 mg /3 1-21 mL every 4 ity of mL (0.083 00:00: (four) [place] %) 00 hours as Medical nebulizer needed for Bran ch solution Wheezing or Shortness of Breath. May also nebulize one extra every 6 hours. albuterol 2020-0 Yes [id number] 2.5mg Inhale 3 Univers 2.5 mg /3 1-21 mL every 4 ity of mL (0.083 00:00: (four) [place] %) 00 hours as Medical nebulizer needed for Bran ch solution Wheezing or Shortness of Breath. May also nebulize one extra every 6 hours. albuterol 2020-0 Yes [id number] 2.5mg Inhale 3 Univers 2.5 mg /3 1-21 mL every 4 ity of mL (0.083 00:00: (four) [place] %) 00 hours as Medical nebulizer needed for Bran ch solution Wheezing or Shortness of Breath. May also nebulize one extra every 6 hours. albuterol 2020-0 Yes [id number] 2.5mg Inhale 3 Univers 2.5 mg /3 1-21 mL every 4 ity of mL (0.083 00:00: (four) [place] %) 00 hours as Medical nebulizer needed for Bran ch solution Wheezing or Shortness of Breath. May also nebulize one extra every 6 hours. albuterol 2020-0 Yes [id number] 2.5mg Inhale 3 Univers 2.5 mg /3 1-21 mL every 4 ity of mL (0.083 00:00: (four) [place] %) 00 hours as Medical nebulizer needed for Bran ch solution Wheezing or Shortness of Breath. May also nebulize one extra every 6 hours. albuterol 2020-0 Yes [id number] 2.5mg Inhale 3 Univers 2.5 mg /3 1-21 mL every 4 ity of mL (0.083 00:00: (four) [place] %) 00 hours as Medical nebulizer needed for Bran ch solution Wheezing or Shortness of Breath. May also nebulize one extra every 6 hours. albuterol 2020-0 Yes [id number] 2.5mg Inhale 3 Univers 2.5 mg /3 1-21 mL every 4 ity of mL (0.083 00:00: (four) [place] %) 00 hours as Medical nebulizer needed for Bran ch solution Wheezing or Shortness of Breath. May also nebulize one extra every 6 hours. codeine-gua 2020-0 2020- No [id number] 10mL Take 10 mL Univers ifenesin 1-21 03-10 by mouth ity of 10-100 mg/5 00:00: 00:00 every 6 [place] mL solution 00 :00 (six) Medical hours as Branch needed for Cough. ondansetron 2018- 2019- No 4mg 4 mg, Slow Univers (ZOFRAN 03-11-05 IV Push, ity of (PF)) 20:30: 19:53 ONCE, 1 [place] injection 4 00 :00 dose, [place] Med ical mg 03/11/19 at Branch 1530, JEFFREY NaCl 0.9% 2019- No 1000mL at 999 Uni vers (NS) bolus 03-1105 mL/hr, ity of infusion 19:30: 20:56 1,000 mL, [place] as 1,000 mL 00 :00 IV Medical Infusion, Branch ONCE, 1 dose, [place] 03/11/19 at 1430, JEFFREY dicyclomine 2018-0 Yes [id number] 10mg Take 1 Univers (BENTYL) 10 9-05 capsule by it y of mg capsule 00:00: mouth 4 [place] 00 (four) Medical times Branch daily. ondansetron 2019-0 Yes [id number] 4mg Take 1 Univers 4 mg 9-05 tablet by ity of disintegrat 00:00: mouth [place] ing tablet 00 every 4 Medica l (four) Branch hours as needed for Nausea and Vomiting (N/V). dicyclomine 2019-0 Yes [id number] 10mg Take 1 Univers (BENTYL) 10 9-05 capsule by it y of mg capsule 00:00: mouth 4 [place] 00 (four) Medical times Branch daily. ondansetron 2019-0 Yes [id number] 4mg Take 1 Univers 4 mg 9-05 tablet by ity of disintegrat 00:00: mouth [place] ing tablet 00 every 4 Medica l (four) Branch hours as needed for Nausea and Vomiting (N/V). dicyclomine 2019-0 Yes [id number] 10mg Take 1 Univers (BENTYL) 10 9-05 capsule by it y of mg capsule 00:00: mouth 4 [place] 00 (four) Medical times Branch daily. ondansetron 2019-0 Yes [id number] 4mg Take 1 Univers 4 mg 9-05 tablet by ity of disintegrat 00:00: mouth [place] ing tablet 00 every 4 Medica l (four) Branch hours as needed for Nausea and Vomiting (N/V). dicyclomine 2020- No [id number] 10mg Take 1 Univers (BENTYL) 10 -05 03-10 capsule by i ty of mg capsule 00:00: 00:00 mouth 4 [place] as 00 :00 (four) Medical times Branch daily. ondansetron 2020- No [id number] 4mg Take 1 Univers 4 mg 9-05 [...] as needed for Pain (scale 7-10). atorvastati 2018 Yes 10mg Take 10 mg Univers n 10 mg 4-10 by mouth ity of tablet 14:40: at [place] [address] bedtime. Medical Branch omeprazole 2018- Yes 20mg Take 20 mg U nivers 20 mg 4-10 by mouth ity of capsule 14:40: daily. [place] [address] Medical Branch atorvastati 2017-0 Yes 10mg Take 10 mg Univers n 10 mg 4-10 by mouth ity of tablet 14:40: at [place] [address] bedtime. Medical Branch omeprazole 2018-0 Yes 20mg Take 20 mg U nivers 20 mg 4-10 by mouth ity of capsule 14:40: daily. [place] [address] Medical Branch atorvastati 2017-0 Yes 10mg Take 10 mg Univers n 10 mg 4-10 by mouth ity of tablet 14:40: at [place] [address] bedtime. Medical Branch omeprazole 2018-0 Yes 20mg Take 20 mg U nivers 20 mg 4-10 by mouth ity of capsule 14:40: daily. [place] [address] Medical Branch atorvastati 2017-0 Yes 10mg Take 10 mg Univers n 10 mg 4-10 by mouth ity of tablet 14:40: at [place] [address] bedtime. Medical Branch omeprazole 2017-0 Yes 20mg Take 20 mg U nivers 20 mg 4-10 by mouth ity of capsule 14:40: daily. [place] [address] Medical Branch atorvastati 2017-0 Yes 10mg Take 10 mg Univers n 10 mg 4-10 by mouth ity of tablet 14:40: at [place] [address] bedtime. Medical Branch omeprazole 2017-0 Yes 20mg Take 20 mg U nivers 20 mg 4-10 by mouth ity of capsule 14:40: daily. [place] [address] Medical Branch levothyroxi 2018-0 Yes TAKE 1 Univ ers ne 125 mcg 4-10 TABLET BY ity of tablet 00:00: MOUTH [place] EVERY Medical MORNING Branch levothyroxi 2018-0 Yes TAKE 1 Univ ers ne 125 mcg 4-10 TABLET BY ity of tablet 00:00: MOUTH [place] EVERY Medical MORNING Branch levothyroxi 2018-0 Yes TAKE 1 Univ ers ne 125 mcg 4-10 TABLET BY ity of tablet 00:00: MOUTH [place] EVERY Medical MORNING Branch levothyroxi 2018-0 Yes TAKE 1 Univ ers ne 125 mcg 4-10 TABLET BY ity of tablet 00:00: MOUTH [place] EVERY Medical MORNING Branch levothyroxi 2018-0 Yes TAKE 1 Univ ers ne 125 mcg 4-10 TABLET BY ity of tablet 00:00: MOUTH [place] EVERY Medical MORNING Branch levothyroxi 2018-0 Yes TAKE 1 Univ ers ne 125 mcg 4-10 TABLET BY ity of tablet 00:00: MOUTH 00 EVERY Medical MORNING Branch levothyroxi 2018-0 Yes TAKE 1 Univ ers ne 125 mcg 4-10 TABLET BY ity of tablet 00:00: MOUTH 00 EVERY Medical MORNING Branch levothyroxi 2018-0 Yes TAKE 1 Univ ers ne 125 mcg 4-10 TABLET BY ity of tablet 00:00: MOUTH 00 EVERY Medical MORNING Branch levothyroxi 2018-0 Yes TAKE 1 Univ ers ne 125 mcg 4-10 TABLET BY ity of tablet 00:00: MOUTH 00 EVERY Medical MORNING Branch levothyroxi 2018-0 Yes TAKE 1 Univ ers ne 125 mcg 4-10 TABLET BY ity of tablet 00:00: MOUTH 00 EVERY Medical MORNING Branch levothyroxi 2018-0 Yes TAKE 1 Univ ers ne 125 mcg 4-10 TABLET BY ity of tablet 00:00: MOUTH EVERY Medical MORNING Branch levothyroxi 2017-0 Yes TAKE 1 Univ ers ne 125 mcg 4-10 TABLET BY ity of tablet 00:00: MOUTH EVERY Medical MORNING Branch levothyroxi 2018-0 Yes TAKE 1 Univ ers ne 125 mcg 4-10 TABLET BY ity of tablet 00:00: MOUTH EVERY Medical MORNING Branch levothyroxi 2018-0 Yes TAKE 1 Univ ers ne 125 mcg 4-10 TABLET BY ity of tablet 00:00: MOUTH 00 EVERY Medical MORNING Branch levothyroxi 2018-0 Yes TAKE 1 Univ ers ne 125 mcg 4-10 TABLET BY ity of tablet 00:00: MOUTH 00 EVERY Medical MORNING Branch levothyroxi 2018-0 Yes TAKE 1 Univ ers ne 125 mcg 4-10 TABLET BY ity of tablet 00:00: MOUTH EVERY Medical MORNING Branch levothyroxi 2018-0 Yes TAKE 1 Univ ers ne 125 mcg 4-10 TABLET BY ity of tablet 00:00: MOUTH EVERY Medical MORNING Branch SYMBICORT 2018-0 Yes TAKE 2 Univer s 160-4.5 3-28 PUFFS BY ity of mcg/actuati 00:00: MOUTH on inhaler 00 TWICE A Medica l DAY Branch SYMBICORT 2018-0 Yes TAKE 2 Univer s 160-4.5 3-28 PUFFS BY ity of mcg/actuati 00:00: MOUTH on inhaler 00 TWICE A Medica l DAY Branch SYMBICORT 2018-0 Yes TAKE 2 Univer s 160-4.5 3-28 [...] TWICE A Medica l DAY Branch SYMBICORT 2020- No TAKE 2 Unive rs 160-4.5 3-28 11-13 PUFFS BY ity of mcg/actuati 00:00: 00:00 MOUTH [place] on inhaler 00 :00 TWICE A Medica l DAY Branch ALPRAZolam Yes TAKE 1 Unive rs 0.25 mg 3-27 TABLET BY ity of tablet 00:00: MOUTH 00 EVERY DAY Medical NEEDED Branch diltiazem Yes TAKE 1 Univer s 60 mg 3-27 TABLET BY ity of tablet 00:00: MOUTH 00 TWICE A Medical DAY Branch ALPRAZolam Yes TAKE 1 Unive rs 0.25 mg 3-27 TABLET BY ity of tablet 00:00: MOUTH 00 EVERY DAY Medical NEEDED Branch diltiazem Yes TAKE 1 Univer s 60 mg 3-27 TABLET BY ity of tablet 00:00: MOUTH 00 TWICE A Medical DAY Branch ALPRAZolam Yes .5mg Take 0.5 Uni vers 0.25 mg 3-27 mg by ity of tablet 00:00: mouth 00 daily. Pt Medical taking Branch 0.5mg daily ALPRAZolam Yes .5mg Take 0.5 Uni vers 0.25 mg 3-27 mg by ity of tablet 00:00: mouth 00 daily. Pt Medical taking Branch 0.5mg daily ALPRAZolam Yes .5mg Take 0.5 Uni vers 0.25 mg 3-27 mg by ity of tablet 00:00: mouth 00 daily. Pt Medical taking Branch 0.5mg [...] 00 TWICE A Medical DAY Branch diltiazem 0 2021- No TAKE 1 Unive rs 60 mg [...] EVERY Medical MORNING Branch losartan 25 0 Yes TAKE 1 Univ ers mg tablet 2-16 TABLET BY ity o f 00:00: MOUTH [place] 00 EVERY Medical MORNING Branch losartan 25 0 Yes TAKE 1 Univ ers mg tablet 2-16 TABLET BY ity o f 00:00: MOUTH [place] 00 EVERY Medical MORNING Branch losartan 25 0 2021- No TAKE 1 Uni vers mg tablet 2-16 11-13 TABLET BY ity of 00:00: 00:00 MOUTH [place] 00 :00 EVERY Medical MORNING Branch clopidogrel Yes TAKE 1 Univ ers 75 mg 2-06 TABLET BY ity of tablet 00:00: MOUTH [place] 00 EVERY Medical MORNING Branch clopidogrel 2017- Yes TAKE 1 Univ ers 75 mg 2-06 TABLET BY ity of tablet 00:00: MOUTH [place] 00 EVERY Medical MORNING Branch clopidogrel Yes TAKE 1 Univ ers 75 mg 2-06 TABLET BY ity of tablet 00:00: MOUTH [place] 00 EVERY Medical MORNING Branch clopidogrel 2017- Yes TAKE 1 Univ ers 75 mg 2-06 TABLET BY ity of tablet 00:00: MOUTH [place] 00 EVERY Medical MORNING Branch clopidogrel 2018-0 Yes TAKE 1 Univ ers 75 mg 2-06 TABLET BY ity of tablet 00:00: MOUTH [place] 00 EVERY Medical MORNING Branch clopidogrel 2018-0 Yes TAKE 1 Univ ers 75 mg 2-06 TABLET BY ity of tablet 00:00: MOUTH [place] 00 EVERY Medical MORNING Branch clopidogrel 2018-0 Yes TAKE 1 Univ ers 75 mg 2-06 TABLET BY ity of tablet 00:00: MOUTH [place] 00 EVERY Medical MORNING Branch clopidogrel 2018-0 Yes TAKE 1 Univ ers 75 mg 2-06 TABLET BY ity of tablet 00:00: MOUTH [place] 00 EVERY Medical MORNING Branch clopidogrel 2018-0 Yes TAKE 1 Univ ers 75 mg 2-06 TABLET BY ity of tablet 00:00: MOUTH [place] 00 EVERY Medical MORNING Branch clopidogrel 2018-0 Yes TAKE 1 Univ ers 75 mg 2-06 TABLET BY ity of tablet 00:00: MOUTH [place] 00 EVERY Medical MORNING Branch clopidogrel 2018-0 Yes TAKE 1 Univ ers 75 mg 2-06 TABLET BY ity of tablet 00:00: [facility] 00 EVERY Medical MORNING Branch clopidogrel 2018-0 Yes TAKE 1 Univ ers 75 mg 2-06 TABLET BY ity of tablet 00:00: [facility] 00 EVERY Medical MORNING Branch clopidogrel 2018-0 Yes TAKE 1 Univ ers 75 mg 2-06 TABLET BY ity of tablet 00:00: [facility] 00 EVERY Medical MORNING Branch clopidogrel 2018-0 Yes TAKE 1 Univ ers 75 mg 2-06 TABLET BY ity of tablet 00:00: [facility] 00 EVERY Medical MORNING Branch clopidogrel 2018-0 Yes TAKE 1 Univ ers 75 mg 2-06 TABLET BY ity of tablet 00:00: [facility] 00 EVERY Medical MORNING Branch clopidogrel 2018-0 Yes TAKE 1 Univ ers 75 mg 2-06 TABLET BY ity of tablet 00:00: [facility] 00 EVERY Medical MORNING Branch clopidogrel 2018-0 Yes TAKE 1 Univ ers 75 mg 2-06 TABLET BY ity of tablet 00:00: [facility] 00 EVERY Medical MORNING Branch Vital Signs Vital Name Observation Time Observation Value Comments Source Systolic blood 2022-08-24 15:43:00 135 mm[Hg] Univer sity of pressure [facility] Diastolic blood 2022-08-24 15:43:00 83 mm[Hg] Unive rsity of pressure [facility] Heart rate 2022-08-24 15:43:00 94 /min [facility] Body temperature 2022-08-24 15:43:00 36.83 Brittany [facility] [place] [facility] Respiratory rate 2022-08-24 15:43:00 18 /min [facility] [place] [facility] Body height 2022-08-24 15:43:00 170.2 cm [facility] [place] [facility] Body weight 2022-08-24 15:43:00 58.968 kg [facility] [place] [facility] BMI 2022-08-24 15:43:00 20.36 kg/m2 [facility] [place] [facility] Oxygen saturation in 2022-08-24 15:43:00 99 /min University of Arterial blood by [facility] Pulse oximetry Branch Systolic blood 2022-01-08 02:02:00 147 mm[Hg] Univer sity of pressure [place] [facility] Diastolic blood 2022-01-08 02:02:00 78 mm[Hg] Unive rsity of pressure [place] [facility] Heart rate 2022-01-08 02:02:00 78 /min [facility] [place] [facility] Respiratory rate 2022-01-08 02:02:00 18 /min [facility] [place] [facility] Oxygen saturation in 2022-01-08 02:02:00 100 /min University [facility] Arterial blood by [facility] Pulse oximetry Branch Body temperature 2022-01-07 23:24:00 37.17 Brittany [facility] [place] [facility] Body weight 2022-01-07 23:24:00 58.968 kg [facility] [place] [facility] BMI 2022-01-07 23:24:00 20.36 kg/m2 [facility] [place] [facility] Systolic blood 2022-01-06 20:29:00 140 mm[Hg] Univer sity of pressure [place] [facility] Diastolic blood 2022-01-06 20:29:00 106 mm[Hg] Unive rsity of pressure [place] [facility] Heart rate 2022-01-06 20:29:00 102 /min [facility] [place] [facility] Body temperature 2022-01-06 20:29:00 37.5 Brittany [facility] [place] [facility] Respiratory rate 2022-01-06 20:29:00 16 /min [facility] [place] [facility] Body height 2022-01-06 20:29:00 170.2 cm [facility] [place] [facility] Body weight 2022-01-06 20:29:00 58.968 kg [facility] [place] [facility] BMI 2022-01-06 20:29:00 20.36 kg/m2 [facility] [place] [facility] Oxygen saturation in 2022-01-06 20:29:00 99 /min [facility] Arterial blood by [facility] Pulse oximetry Branch Systolic blood 2021-09-02 01:52:00 132 mm[Hg] Univer sity of pressure [place] [facility] Diastolic blood 2021-09-02 01:52:00 75 mm[Hg] Unive rsity of pressure [place] [facility] Heart rate 2021-09-02 01:52:00 67 /min [facility] [place] [facility] Respiratory rate 2021-09-02 01:52:00 16 /min [facility] [place] [facility] Oxygen saturation in 2021-09-02 01:52:00 99 /min [facility] Arterial blood by [facility] Pulse oximetry Branch Body temperature 2021-09-01 23:57:00 36.17 Brittany [facility] [place] [facility] Body height 2021-09-01 23:57:00 170.2 cm [facility] [place] [facility] Body weight 2021-09-01 23:57:00 58.968 kg [facility] [place] [facility] BMI 2021-09-01 23:57:00 20.36 kg/m2 [facility] [place] [facility] Systolic blood 2021-08-07 15:57:00 165 mm[Hg] Univer sity of pressure [place] [facility] Diastolic blood 2021-08-07 15:57:00 71 mm[Hg] Unive rsity of pressure [place] [facility] Heart rate 2021-08-07 15:57:00 97 /min [facility] [place] [facility] Body temperature 2021-08-07 15:57:00 37.44 Brittany [facility] [place] [facility] Respiratory rate 2021-08-07 15:57:00 18 /min [facility] [place] [facility] Body height 2021-08-07 15:57:00 170.2 cm [facility] [place] [facility] Body weight 2021-08-07 15:57:00 56.7 kg [facility] [place] [facility] BMI 2021-08-07 15:57:00 19.58 kg/m2 [facility] [place] [facility] Oxygen saturation in 2021-08-07 15:57:00 98 /min [facility] Arterial blood by [facility] hermelindo Pulse oximetry Branch Systolic blood 2021-06-30 01:29:00 132 mm[Hg] Univer sity of pressure [place] [facility] Diastolic blood 2021-06-30 01:29:00 75 mm[Hg] Unive rsity of pressure [place] [facility] Heart rate 2021-06-30 01:29:00 75 /min [facility] [place] [facility] Respiratory rate 2021-06-30 01:29:00 18 /min [facility] [place] [facility] Oxygen saturation in 2021-06-30 01:29:00 100 /min [facility] Arterial blood by [facility] Pulse oximetry Branch Body temperature 2021-06-29 22:01:00 36.67 Brittany [facility] [place] [facility] Body weight 2021-06-29 22:01:00 53.071 kg [facility] [place] [facility] BMI 2021-06-29 22:01:00 18.32 kg/m2 [facility] [place] [facility] Systolic blood 2021-05-20 21:45:00 137 mm[Hg] Univer sity of pressure [place] [facility] Diastolic blood 2021-05-20 21:45:00 75 mm[Hg] Unive rsity of pressure [place] [facility] Heart rate 2021-05-20 21:45:00 75 /min [facility] [place] [facility] Body temperature 2021-05-20 21:45:00 36.5 Brittany [facility] [place] [facility] Respiratory rate 2021-05-20 21:45:00 16 /min [facility] [place] [facility] Oxygen saturation in 2021-05-20 21:45:00 97 /min [facility] Arterial blood by [facility] Pulse oximetry Branch Body weight 2021-05-20 04:14:00 53.479 kg [facility] [place] [facility] BMI 2021-05-20 04:14:00 18.47 kg/m2 [facility] [place] [facility] Body height 2021-05-20 03:42:00 170.2 cm [facility] [place] [facility] Systolic blood 2020-09-14 03:30:00 147 mm[Hg] Univer sity of pressure [place] [facility] Diastolic blood 2020-09-14 03:30:00 89 mm[Hg] Unive rsity of pressure [place] [facility] Heart rate 2020-09-14 03:30:00 73 /min [facility] [place] [facility] Respiratory rate 2020-09-14 03:30:00 19 /min [facility] [place] [facility] Oxygen saturation in 2020-09-14 03:30:00 97 /min [facility] of Arterial blood by [facility] hermelindo Pulse oximetry Branch Body temperature 2020-09-14 02:10:00 36.5 Brittany [facility] [place] [facility] Body height 2020-09-14 02:09:00 170.2 cm [facility] [place] [facility] Body weight 2020-09-14 02:09:00 61.236 kg [facility] [place] [facility] BMI 2020-09-14 02:09:00 21.14 kg/m2 [facility] [place] [facility] Systolic blood 2020-09-14 03:30:00 147 mm[Hg] Univer sity of pressure [place] [facility] Diastolic blood 2020-09-14 03:30:00 89 mm[Hg] Unive rsity of pressure [place] [facility] Heart rate 2020-09-14 03:30:00 73 /min [facility] [place] [facility] Respiratory rate 2020-09-14 03:30:00 19 /min [facility] [place] [facility] Oxygen saturation in 2020-09-14 03:30:00 97 /min [facility] Arterial blood by [facility] Pulse oximetry Branch Body temperature 2020-09-14 02:10:00 36.5 Brittany [facility] [place] [facility] Body height 2020-09-14 02:09:00 170.2 cm [facility] [place] [facility] Body weight 2020-09-14 02:09:00 61.236 kg [facility] [place] [facility] BMI 2020-09-14 02:09:00 21.14 kg/m2 [facility] [place] [facility] Heart rate 2019-07-28 01:36:00 70 /min [facility] [place] [facility] Respiratory rate 2019-07-28 01:36:00 18 /min [facility] [place] [facility] Oxygen saturation in 2019-07-28 01:24:00 98 /min [facility] Arterial blood by [place] [employer] hermelindo Pulse oximetry Branch Systolic blood 2019-07-28 01:00:00 143 mm[Hg] Univer sity of pressure [place] [facility] Diastolic blood 2019-07-28 01:00:00 74 mm[Hg] Unive rsity of pressure [place] [facility] Body temperature 2019-07-28 00:05:00 36.56 Brittany [facility] [place] [facility] Body height 2019-07-28 00:05:00 170.2 cm [facility] [place] [facility] Body weight 2019-07-28 00:05:00 68.04 kg [facility] [place] [facility] BMI 2019-07-28 00:05:00 23.49 kg/m2 [facility] [place] [facility] Heart rate 2019-07-28 01:36:00 70 /min [facility] [place] [facility] Respiratory rate 2019-07-28 01:36:00 18 /min [facility] [place] [facility] Oxygen saturation in 2019-07-28 01:24:00 98 /min [facility] Arterial blood by [facility] Pulse oximetry Branch Systolic blood 2019-07-28 01:00:00 143 mm[Hg] Univer sity of pressure [place] [facility] Diastolic blood 2019-07-28 01:00:00 74 mm[Hg] Unive rsity of pressure [place] [facility] Body temperature 2019-07-28 00:05:00 36.56 Brittany [facility] [place] [facility] Body height 2019-07-28 00:05:00 170.2 cm [facility] [place] [facility] Body weight 2019-07-28 00:05:00 68.04 kg [facility] [place] [facility] BMI 2019-07-28 00:05:00 23.49 kg/m2 [facility] [place] [facility] Systolic blood 2019-03-11 21:00:00 141 mm[Hg] Univer sity of pressure [place] [facility] Diastolic blood 2019-03-11 21:00:00 66 mm[Hg] Unive rsity of pressure [place] [facility] Heart rate 2019-03-11 21:00:00 97 /min [facility] [place] [facility] Respiratory rate 2019-03-11 21:00:00 18 /min [facility] [place] [facility] Oxygen saturation in 2019-03-11 21:00:00 97 /min [facility] Arterial blood by [facility] Pulse oximetry Branch Body temperature 2019-03-11 19:13:00 36.06 Brittany [facility] [place] [facility] Body weight 2019-03-11 19:12:00 68.04 kg [facility] BMI 2019-03-11 19:12:00 23.49 kg/m2 [facility] Systolic blood 2019-03-11 21:00:00 141 mm[facility]Hg[facility] Diastolic blood 2019-03-11 21:00:00 66 mm[Hg] [facility] Heart rate 2019-03-11 21:00:00 97 /min [facility] Respiratory rate 2019-03-11 21:00:00 18 /min [facility] Oxygen saturation in 2019-03-11 21:00:00 97 /min [facility] Arterial blood by [facility] Pulse oximetry [place] Body temperature 2019-03-11 19:13:00 36.06 Brittany [facility] Body weight 2019-03-11 19:12:00 68.04 kg [facility] BMI 2019-03-11 19:12:00 23.49 kg/m2 [facility] Procedures Procedure Date / Time Performing Clinician Source Performed POCT SARS-COV-2 ANTIGEN 2022-08-24 15:52:00 Susan Lee [facility] (BINAX NOW) [facility] POCT MOLECULAR FLU 2022-08-24 15:51:00 Unknown, Attending [facility] ASSIGNMENT OF BENEFITS 2022-08-24 15:38:07 Doctor Unassigned, No [facility] Name [facility] XR CHEST 1 VW 2022-01-08 00:24:42 Alex Oconnell [facility] RAPID STREP SCREEN FOR 2022-01-06 20:47:00 Sherrill Connor [facility] GROUP A Medical Branch COVID-19 (ID NOW RAPID 2022-01-06 20:47:00 Sherrill Connor [facility] TESTING) Medical Branch CONSENT/REFUSAL FOR 2022-01-06 20:26:18 Doctor Unassigned, No [facility] DIAGNOSIS AND TREATMENT Name [facility] RAPID INFLUENZA A/B 2021-09-02 00:47:00 Cameron Dalton [facility] COVID-19 (ID NOW RAPID 2021-09-02 00:47:00 Cameron Dalton [facility] TESTING) Medical Branch XR CHEST 2 VW 2021-09-02 00:27:31 [facility]US[facility] FOR 2021-09-01 23:46:25 Doctor Unassigned, No [facility] Name Medical Branch XR CHEST 2 VW 2021-08-07 16:43:01 Darius [facility] CONSENT/REFUSAL FOR 2021-08-07 15:37:28 Doctor Unassigned, No [facility] Name Medical [facility] CT ABDOMEN PELVIS W 2021-06-29 23:11:24 Jose Alejandro Castano [facility] CONTRAST Medical Branch LIPASE 2021-06-29 22:18[facility] 2021-06-29 22:18:00 Omaira [facility] COMP. METABOLIC PANEL 2021-06-29 22:18:00 Omaira [facility] ([id number]) Medical Branch CBC WITH DIFF 2021-06-29 22:18:00 Omaira [facility] URINALYSIS 2021-06-29 22:18:00 [facility] CONSENT/REFUSAL FOR 2021-06-29 21:50:47 Doctor Unassigned, No [facility] POCT GLUCOSE (AUTOMATED) 2021-05-20 17:30:[address] [facility] HB ECG ROUTINE & RHYTHM 2021-05-20 15:36:46 Sami Caceres [facility] STRIP [facility] TRANSTHORACIC ECHO (TTE) 2021-05-20 15:19:[address] [facility] COMPLETE [facility] TROPONIN I 2021-05-20 11:04:00 Esther [facility] BASIC METABOLIC PANEL 2021-05-20 11:04[facility] (NA, K, CL, CO2, Medical Branch GLUCOSE, BUN, CREATININE, CA) CBC WITH DIFF 2021-05-20 11:04:00 Marcelina Che [facility] TROPONIN I 2021-05-20 01:56:00 Neida Irving [facility] XR CHEST 1 VW 2021-05-20 00:01:05 Neida Irving [facility] LIPASE 2021-05-19 23:49:00 Neida Irving [facility] MAGNESIUM 2021-05-19 23:49:00 Neida Irving [facility] TROPONIN I 2021-05-19 23:49:00 Neida Irving [facility] COMP. METABOLIC PANEL 2021-05-19 23:49:00 Neida Irving [facility] ([id number]) [facility] CBC WITH DIFF 2021-05-19 23:49:00 Neida Irving [facility] PROTHROMBIN TIME / INR 2021-05-19 23:49:00 [facility] ACTIVATED PARTIAL 2021-05-19 23:49:00 Neida Irving [facility] THRMPLAS [facility] COVID-19 (ID NOW RAPID 2021-05-19 23:49:00 Neida Irving [facility] TESTING) [facility] CONSENT/REFUSAL FOR 2021-05-19 23:01:42 Doctor Unassigned, No [facility] DIAGNOSIS AND TREATMENT Name Medical Branch URINALYSIS 2020-09-14 02:42:00 Diana Berg [facility] XR CHEST 1 VW 2020-09-14 02:30:21 Diana Berg [facility] LIPASE 2020-09-14 02:21:00 Diana Berg [facility] TROPONIN I 2020-09-14 02:21:00 Diana Berg [facility] HEPATIC FUNCTION PANEL 2020-09-14 02:21:00 Diana Berg [facility] ([id number]) (ALB,T.PRO,BILI Medical Branch T,BU/BC,ALT,AST,ALK PHOS) BASIC METABOLIC PANEL 2020-09-14 02:21:00 Diana Berg [facility] [place] (NA, K, CL, CO2, Medical Branch GLUCOSE, BUN, CREATININE, CA) CBC WITH DIFF 2020-09-14 02:21:00 Diana Berg [facility] N-TERMINAL PRO-BNP 2020-09-14 02:21:00 Diana Berg [facility] sity [facility] [place] [facility] COVID-19 (ID NOW RAPID 2020-09-14 02:21:00 Diana [facility] [place] [facility] NOTICE OF PRIVACY 2020-09-14 02:00:22 Doctor Unassigned, No [facility] CONSENT/REFUSAL FOR 2020-09-14 01:58:28 Doctor Unassigned, No [facility] [place] DIAGNOSIS AND TREATMENT Name [facility] HEPATIC FUNCTION PANEL 2019-07-28 00:55:00 Mariangel [facility]tega [facility] [place] ([id number]) (ALB,T.PRO,BILI Medical Branch T,BU/BC,ALT,AST,ALK PHOS) BASIC METABOLIC PANEL 2019-07-28 00:55:00 Mariangel Ortega [facility] [place] (NA, K, CL, CO2, Medical Branch GLUCOSE, BUN, CREATININE, CA) CBC WITH DIFFERENTIAL 2019-07-28 00:55:00 Mariangel Ortega Un iversity of [facility] RAPID STREP SCREEN FOR 2019-07-28 00:55:00 Mariangel [facility] ADC,CLC OR LCC ONLY - 2019-07-28 00:55:00 Mariangel Ortega [facility] [place] INFLUENZA A & B DIRECT Medical [facility] ANTIGEN CBC WITH DIFFERENTIAL 2019-07-28 00:55:00 Mariangel Ortega Un iversity of [facility] XR CHEST 2 VW 2019-07-28 00:28:40 Mariangel Ortega [facility] CONSENT/REFUSAL FOR 2019-07-27 23:47:18 Doctor Unassigned, No [facility] [place] DIAGNOSIS AND TREATMENT Name Medical Branch LIPASE 2019-03-11 19:53:00 Sherrill Connor [place] [facility] HEPATIC FUNCTION PANEL 2019-03-11 19:53:00 Sherrill Connor [facility] ([id number]) (ALB,T.PRO,BILI [facility] T,BU/BC,ALT,AST,ALK PHOS) BASIC METABOLIC PANEL 2019-03-11 19:53:00 Sherrill Connor [facility] (NA, K, CL, CO2, [facility] GLUCOSE, BUN, CREATININE, CA) CBC WITH DIFFERENTIAL 2019-03-11 19:53:00 Sherrill Connor [facility] PROTHROMBIN TIME / INR 2019-03-11 19:53:00 Sherrill Connor [facility] ACTIVATED PARTIAL 2019-03-11 19:53:00 Sherrill Connor [facility] THRMPLAS [facility] NOTICE OF PRIVACY 2019-03-11 18:56:54 Doctor Unassigned, No [facility] PRACTICES Name [facility] Encounters Start End Encounter Admission Attending Care Care Encounter Source Date/Time Date/Time Type Type Clinicians Facility Department ID 2021-05-06 Emergency [facility] [id number] Univers 05:05:13 ity of [facility] 2022-08-24 2022-08-24 Urgent Susan Lee [facility] [id number] Univers 09:40:00 10:00:00 Care Unknown, Attending HEALTH [id number] ity [facility] [id number] Amandeep as JOCELYN?BLEA [phone] Ma lennie [address] MEDICAL OFFICE BUILDING 2022-08-24 2022-08-24 Outpatient R TAMIKO [facility] [id number] Univers 09:40:00 09:40:00 SUSAN ity of [facility] 2022-08-24 2022-08-24 Orders Doctor SUSHIL [id number] Univers 00:00:00 00:00:00 Only Unassigned, KIRK [id number] [facility] [id number] Amandeep as [phone] [address] 2022-01-11 2022-01-11 Laboratory Only, Ang Db Test [facility] 1.2.8 [id number] Univers 13:15:00 13:30:00 Only Monik Charles [facility] [id number] [facility] [id number] Amandeep as JOCELYN?BLEA [id number] [address] MEDICAL OFFICE BUILDING 2022-01-11 2022-01-11 [facility] [id number] Univers 13:15:00 13:24:38 MONIK itradha [facility] 2022-01-07 2022-01-07 [facility] ERT [id number] Univers 18:26:00 21:08:00 ALEX garcia [facility] 2022-01-07 2022-01-07 Emergency [place], [facility] [id number] Univers 18:26:00 21:08:00 Alex DENNISON [id number] [facility] [id number] [facility] [id number] [address] 2022-01-06 2022-01-06 Emergency X [facility] ERT [id number] Univers 15:31:00 16:32:00 SHERRILL [facility] 2022-01-06 2022-01-06 [facility] [id number] Univers 15:31:00 16:32:00 Sherrill DENNISON [id number] i ty of [place] [id number] [facility] [id number] [address] 2021-09-01 2021-09-01 Emergency X [facility] ERT [id number] Univers 17:59:00 19:56:00 CAMERON delaney [facility] 2021-09-01 2021-09-01 Emergency [facility] [id number] Univers 17:59:00 19:56:00 Cameron DENNISON [id number] i ty [facility] [id number] [facility] [id number] [address] 2021-09-01 2021-09-01 Orders Doctor SUSHIL [id number] Univers 00:00:00 00:00:00 Only Unassigned, KIRK [id number] ity of [place] [facility] [id number] Amandeep as [id number] [facility] [address] [place] 2021-08-08 2021-08-08 SUSHIL Coe [id number] Univers 00:00:00 00:00:00 (Out) Nirmala Ballard KIRK [id number] it y of HOSPITAL [id number] Amandeep as [id number] [facility] [address] 2021-08-07 2021-08-07 Emergency X [facility] ERT [id number] Univers 09:58:00 11:43:00 DARIUS ity [facility] 2021-08-07 2021-08-07 Emergency [facility] [id number] Univers 09:58:00 11:43:00 Darius DENNISON 350.1.13.10 i ty of [place] 4.2.7.2.686 [facility] [id number] [address] 2021-08-07 2021-08-07 Orders Doctor SUSHIL 1.2.840.114 [id number] Univers 00:00:00 00:00:00 Only Unassigned, KIRK 350.1.13.10 ity of [place] [facility] 4.2.7.2.686 Amandeep as [id number] [address] 2021-06-29 2021-06-29 Emergency X [facility] ERT [id number] Univers 16:04:00 19:33:[address] [facility] 2021-06-29 2021-06-29 [facility] 1.2.840.114 [id number] Univers 16:04:00 19:33:00 Jose Alejandro DENNISON 350.1.13.10 i ty of [place] 4.2.7.2.686 [facility] [id number] [address] 2021-05-19 2021-05-20 Outpatient X [facility] YEISON [id number] Univers 17:04:00 17:03:00 MARCELINA delaney [facility] 2021-05-19 2021-05-20 Emergency Neida Irving [facility] 1.2.840. 114 [id number] Univers 17:04:00 17:03:00 Marcelina Che 350.1.13.10 ity of [place] 4.2.7.2.686 [facility] [id number] [address] 2020-09-16 2020-09-16 Outpatient R LUIS MANUEL [facility] [id number] Univers 10:20:00 10:20:00 NICOLE itradha [facility] 2020-09-16 2020-09-16 Laboratory Lab, [facility] 1.2.840.114 [id number] 09:44:15 10:04:15 Only Fam Pob I Health 350.1.13.10 [place] 4.2.7.2.686 Professio [phone] [place] [address] Office [facility] 2020-09-16 2020-09-16 Laboratory Lab, [facility] Fam Pob I [facility] 1.2. 840.114 [id number] Univers 09:44:15 10:04:15 Only Nicole Issa 350.1.13.10 ity of [place] 4.2.7.2.686 Amandeep as Professio [phone] Ma dical [address] Office [facility] 2020-09-13 2020-09-13 [facility] 1.2.840.114 [id number] 20:05:00 22:24:00 Diana Dennison 350.1.13.10 [place] 4.2.7.2.686 [place] [phone] [facility] 2020-09-13 2020-09-13 [facility] 1.2.840.114 [id number] Univers 20:05:00 22:24:00 Diana Dennison 350.1.13.10 ity of [place] 4.2.7.2.686 [facility] [id number] [address] 2019-07-27 2019-07-27 Emergency Shannon [facility] 1.2.840.114 [id number] 18:07:12 20:13:00 Mariangel Dennison 350.1.13.10 [place] 4.2.7.2.686 [place] [id number] 084 2019-07-27 2019-07-27 Emergency Shannon [facility] 1.2.840.114 [id number] [facility] 18:07:12 20:13:00 Mariangel Dennison 350.1.13.10 ity of [place] 4.2.7.2.686 [facility] [id number] [address] 2019-07-27 2019-07-27 Orders Doctor SUSHIL 1.2.840.114 [id number] 00:00:00 00:00:00 Only Unassigned, KIRK 350.1.13.10 [place] [facility] 4.2.7.2.68 [id number] 009 2019-07-27 2019-07-27 Orders Doctor SUSHIL 1.2.840.114 [id number] Univers 00:00:00 00:00:00 Only Unassigned, KIRK 350.1.13.10 ity of [place] [facility] 4.2.7.2.[address] [place] [phone] 2019-03-11 2019-03-11 [facility] 1.2.444.034 [id number] 14:05:54 16:45:00 Sherrill Dennison 350.1.13.10 [place] 4.2.7.2.686 [place] [phone] [facility] 2019-03-11 2019-03-11 [facility] 1.2.712.906 [id number] [facility] 14:05:54 16:45:00 Sherrill Dennison 350.1.13.10 i ty of [place] 4.2.7.2.686 [facility] [phone] [address] Results Test Description Test Time Test Comments Results Result Comments Source POCT MOLECULAR FLU 2022-08-24 16:02:31 Test Item Value Reference Range Interpretation Comme nts POCT Molecular FluA (test code = 63507-7) Negative Negative POCT Molecular FluB (test code = 55855-5) Negative Negative Lab Interpretation (test code = 17105-3) Normal [facility] SARS-[facility]OV-2 ANTIGEN (BINAX NOW)2022-08-24 15:52:00 Test Item Value Reference Range Interpretation Comments POCT SARS-COV-2 ANTIGEN (test Not Detected Not Detected code = 00823-8) On board controls acceptable Yes with C Line (test code = 3574) Lab Interpretation (test code = Normal 70535-2) [facility]. METABOLIC PANEL (14152)2021-06-29 23:10:56 Test Item Value Reference Range Interpretation Comments NA (test code = 137 mmol/L 135-145 2284128292) K (test code = 3.9 mmol/L 3.5-5.0 3174626151) CL (test code = 102 mmol/L 98-108 2217792136) CO2 TOTAL (test code = 27 mmol/L 23-31 9595133002) AGAP (test code = 2-16 0484286797) BUN (test code = 10 mg/dL 7-23 3691385475) GLUCOSE (test code = 137 mg/dL 70-110 H 1250163799) CREATININE (test code = 0.69 mg/dL 0.50-1.04 3726965257) TOTAL BILI (test code = 0.5 mg/dL 0.1-1.3 8106117382) CALCIUM (test code = 9.2 mg/dL 8.6-10.6 5162854201) T PROTEIN (test code = 7.7 g/dL 6.3-8.2 9610323890) ALBUMIN (test code = 4.9 g/dL 3.5-5.0 6822073594) ALK PHOS (test code = 73 U/L 34-122 0116325904) ALTv (test code = 15 U/L 5-35 1742-6) AST(SGOT) (test code = 21 U/L 13-40 7237654496) eGFR (test code = mL/min/1.73m2 1842812293) MADISYN (test code = MADISYN) Association of [...] tests). Lab Interpretation Abnormal (test code = 59695-0) [facility] [id number] 22:59:27 Test Item Value Reference Interpretation Comments Range TROPONIN I (test 0.001 ng/mL See_Comment [Automated code = 0278848268) message] The system which generated this result [...] biotin. Lab Interpretation Normal (test code = 80907-0) [facility]2021-12-24 22:49:29 Test Item Value Reference Range Interpretation Comments LIPASE (test code = 5871398808) 57 U/L 0-220 Lab Interpretation (test code = Normal 61834-1) [facility] WITH [id number] 22:29:28 Test Item Value Reference Range Interpretation [...] RDW-SD (test code = 43.4 fL 39.0-49.9 91211-0) RDW-CV (test code = 12.7 % 12.0-15.5 788-0) PLT (test code = See_Comment [Automated 777-3) message] The sy stem which generated this result transmitted reference range : 166 - 358 10*3/ ?L. The reference r aiden was not used to interpret this result as normal/abnormal . MPV (test code = 10.7 fL 9.5-12.9 53205-7) NRBC/100 WBC (test See_Comment [Automat ed code = 8692562949) message] The system which generated this result transmitted reference range : 0.0 - 10.0 /100 WBCs. The refer ence range was not u sed to interpret th is result as normal/abnormal . NRBC x10^3 (test code <0.01 See_Comment [Auto mated = 8336741193) message] The s ystem which generated this result transmitted reference range : 10*3/?L. The reference range was not used to interpret this result as normal/abnormal . GRAN MAT (NEUT) % 68.6 % (test code = 770-8) IMM GRAN % (test code 0.40 % = 1848504226) LYMPH % (test code = 22.9 % 736-9) MONO % (test code = 6.3 % 5905-5) EOS % (test code = 1.6 % 713-8) BASO % (test code = 0.2 % 706-2) GRAN MAT x10^3(ANC) 6.89 10*3/uL 1.88-7.09 (test code = 3003115275) IMM GRAN x10^3 (test 0.04 10*3/uL 0.00-0.06 code = 1214424856) LYMPH x10^3 (test code 2.30 10*3/uL 1.32-3.29 = 731-0) MONO x10^3 (test code 0.63 10*3/uL 0.33-0.92 = 742-7) EOS x10^3 (test code = 0.16 10*3/uL 0.03-0.39 711-2) BASO x10^3 (test code <0.03 0.01-0.07 = 704-7) Lab Interpretation Abnormal (test code = 60785-6) [facility] GLU[facility]SE (AUTOMATED)2021-05-20 17:33:00 Test Item Value Reference Range Interpretation Comments POCT GLU (test code = 6698925028) 80 mg/dL 70-110 Lab Interpretation (test code = Normal 07894-5) [facility]landsTROPONIN [id number] 12:36:17 Test Item Value Reference Interpretation Comments Range TROPONIN I (test 0.002 ng/mL See_Comment [Automated code = 0341375097) message] The system which generated this result [...] biotin. Lab Interpretation Normal (test code = 38427-0) [facility] Metabolic Panel (NA, K, CL, CO2, GLUCOSE, BUN, CREATININE, CA)2021-05-20 12:31:20 Test Item Value Reference Range Interpretation Comments NA (test code = 138 mmol/L 135-145 6837773617) K (test code = 4.2 mmol/L 3.5-5.0 0399455542) CL (test code = 106 mmol/L 98-108 8367951855) CO2 TOTAL (test code = 25 mmol/L 23-31 5234227840) AGAP (test code = 2-16 6798940764) BUN (test code = 12 mg/dL 7-23 9224698974) GLUCOSE (test code = 146 mg/dL 70-110 H 6023588874) CREATININE (test code = 0.62 mg/dL 0.50-1.04 7576005556) CALCIUM (test code = 10.0 mg/dL 8.6-10.6 2172028654) eGFR (test code = mL/min/1.73m2 9745199994) MADISYN (test code = MADISYN) Association of [...] tests). Lab Interpretation Abnormal (test code = 95981-0) [facility] with [id number] 11:49:32 Test Item Value Reference Range Interpretation Comments WBC (test code = See_Comment [Automated 9161-2) message] The sy stem which generated this [...] RDW-SD (test code = 40.3 fL 39.0-49.9 32215-5) RDW-CV (test code = 11.9 % 12.0-15.5 L 788-0) PLT (test code = See_Comment [Automated 807-3) message] The sy stem which generated this result transmitted reference range : 166 - 358 10*3/ ?L. The reference r aiden was not used to interpret this result as normal/abnormal . MPV (test code = 11.3 fL 9.5-12.9 95573-1) NRBC/100 WBC (test See_Comment [Automat ed code = 1943976014) message] The system which generated this result transmitted reference range : 0.0 - 10.0 /100 WBCs. The refer ence range was not u sed to interpret th is result as normal/abnormal . NRBC x10^3 (test code <0.01 See_Comment [Auto mated = 7046755314) message] The s ystem which generated this result transmitted reference range : 10*3/?L. The reference range was not used to interpret this result as normal/abnormal . GRAN MAT (NEUT) % 59.9 % (test code = 770-8) IMM GRAN % (test code 0.50 % = 0413683692) LYMPH % (test code = 30.0 % 736-9) MONO % (test code = 6.4 % 5905-5) EOS % (test code = 2.9 % 713-8) BASO % (test code = 0.3 % 706-2) GRAN MAT x10^3(ANC) 3.72 10*3/uL 1.88-7.09 (test code = 6683624505) IMM GRAN x10^3 (test 0.03 10*3/uL 0.00-0.06 code = 9910431459) LYMPH x10^3 (test code 1.86 10*3/uL 1.32-3.29 = 731-0) MONO x10^3 (test code 0.40 10*3/uL 0.33-0.92 = 742-7) EOS x10^3 (test code = 0.18 10*3/uL 0.03-0.39 711-2) BASO x10^3 (test code <0.03 0.01-0.07 = 704-7) Lab Interpretation Abnormal (test code = 31821-3) [facility]landsMARTA [id number] 02:24:28 Test Item Value Reference Interpretation Comments Range TROPONIN I (test 0.003 ng/mL See_Comment [Automated code = 7342198234) message] The system which generated this result [...] biotin. Lab Interpretation Normal (test code = 47472-5) [facility]MAGNESIUM2021-11-14 00:25:00 Test Item Value Reference Range Interpretation Comments MAGNESIUM (test code = 8540136046) 1.9 mg/dL 1.7-2.4 Lab Interpretation (test code = Normal 34579-0) [facility]landsTROPONIN [id number] 00:20:03 Test Item Value Reference Interpretation Comments Range TROPONIN I (test 0.002 ng/mL See_Comment [Automated code = 0476223593) message] The system which generated this result [...] biotin. Lab Interpretation Normal (test code = 45954-6) [facility]. METABOLIC PANEL (02777)2021-05-20 00:09:00 Test Item Value Reference Range Interpretation Comments NA (test code = 139 mmol/L 135-145 2351157157) K (test code = 3.9 mmol/L 3.5-5.0 9516960008) CL (test code = 101 mmol/L 98-108 9749832054) CO2 TOTAL (test code = 28 mmol/L 23-31 7171801175) AGAP (test code = 2-16 7987409424) BUN (test code = 13 mg/dL 7-23 1692875129) GLUCOSE (test code = 143 mg/dL 70-110 H 4076237508) CREATININE (test code = 0.68 mg/dL 0.50-1.04 5888046540) TOTAL BILI (test code = 0.4 mg/dL 0.1-1.1 9316006812) CALCIUM (test code = 10.4 mg/dL 8.6-10.6 7745192684) T PROTEIN (test code = 8.0 g/dL 6.3-8.2 7133981737) ALBUMIN (test code = 5.0 g/dL 3.5-5.0 3230570905) ALK PHOS (test code = 93 U/L 34-122 3195108338) ALTv (test code = 21 U/L 5-35 1742-6) AST(SGOT) (test code = 31 U/L 13-40 2329338662) eGFR (test code = mL/min/1.73m2 5432252283) MADISYN (test code = MADISYN) Association of [...] tests). Lab Interpretation Abnormal (test code = 48638-9) [facility]LIPASE2021-11-14 00:08:20 Test Item Value Reference Range Interpretation Comments LIPASE (test code = 9293626724) 66 U/L 0-220 Lab Interpretation (test code = Normal 90722-1) [facility]landsaPTT2021-11-14 00:06:19 Test Item Value Reference Range Interpretation Comments APTT Patient (test See_Comment [Automat ed code = 3173-2) message] The system which generated this result transmitted reference range : 23 - 38 Seconds . The reference range was not used to interpr et this result as normal/abnormal . MADISYN (test code = MADISYN) The [facility] patient population mean normal value for aPTT is 30 seconds. Lab Interpretation Normal (test code = 57932-3) [facility]landsPROTHROMBIN TIME / [id number] 00:04:19 Test Item Value Reference Range Interpretation [...] tions. Lab Interpretation (test Normal code = 67064-0) [facility] WITH [id number] 23:55:39 Test Item Value Reference Range Interpretation [...] RDW-SD (test code = 40.4 fL 39.0-49.9 24545-5) RDW-CV (test code = 11.9 % 12.0-15.5 L 788-0) PLT (test code = See_Comment [Automated 777-3) message] The sy stem which generated this result transmitted reference range : 166 - 358 10*3/ ?L. The reference r aiden was not used to interpret this result as normal/abnormal . MPV (test code = 11.0 fL 9.5-12.9 39227-7) NRBC/100 WBC (test See_Comment [Automat ed code = 3502487499) message] The system which generated this result transmitted reference range : 0.0 - 10.0 /100 WBCs. The refer ence range was not u sed to interpret th is result as normal/abnormal . NRBC x10^3 (test code <0.01 See_Comment [Auto mated = 4195747263) message] The s ystem which generated this result transmitted reference range : 10*3/?L. The reference range was not used to interpret this result as normal/abnormal . GRAN MAT (NEUT) % 53.4 % (test code = 770-8) IMM GRAN % (test code 0.60 % = 2179207554) LYMPH % (test code = 36.2 % 736-9) MONO % (test code = 6.4 % 5905-5) EOS % (test code = 3.3 % 713-8) BASO % (test code = 0.1 % 706-2) GRAN MAT x10^3(ANC) 3.58 10*3/uL 1.88-7.09 (test code = 7087460842) IMM GRAN x10^3 (test 0.04 10*3/uL 0.00-0.06 code = 1262141464) LYMPH x10^3 (test code 2.43 10*3/uL 1.32-3.29 = 731-0) MONO x10^3 (test code 0.43 10*3/uL 0.33-0.92 = 742-7) EOS x10^3 (test code = 0.22 10*3/uL 0.03-0.39 711-2) BASO x10^3 (test code <0.03 0.01-0.07 = 704-7) Lab Interpretation Abnormal (test code = 71230-7) [facility]landsUrinalysis2021-03-11 03:27:11 Test Item Value Reference Range Interpretation Comments APPEARANCE (test code = Clear Clear 8617791907) COLOR (test code = Straw Yellow A 9756520118) PH (test code = 4.8-8.0 9130939294) SP GRAVITY (test code = 1.003-1.030 9859201649) GLU U QUAL (test code = 500 mg/dL Normal A 7529174273) BLOOD (test code = Negative Negative 6262447918) KETONES (test code = Negative Negative 0841212895) PROTEIN (test code = Negative Negative 2887-8) UROBILIN (test code = Normal Normal 5829196239) BILIRUBIN (test code = Negative Negative 8049952537) NITRITE (test code = Negative Negative 1360334069) LEUK KEVEN (test code = 25/uL Negative A 4411583790) RBC/HPF (test code = See_Comment [Autom ated message] 1719816058) The system [employer] generated this result transmit zoila reference range : 0 - 3 HPF. The refe rence range was not u sed to interpret th is result as normal/abnormal . WBC/HPF (test code = See_Comment [Autom ated message] 1589242834) The system [employer] generated this result transmit zoila reference range : 0 - 5 HPF. The refe rence range was not u sed to interpret th is result as normal/abnormal . BACTERIA (test code = Negative Negative 8680985624) MUCOUS (test code = Slight Negative LPF A 8593009412) SQ EPITH (test code = HPF 4508070360) Lab Interpretation (test Abnormal code = 16228-6) [facility]landsTroponin [id number] 03:00:28 Test Item Value Reference Range Interpretation Comments TROPONIN I (test <0.012 See_Comment [Automated code = 2021491793) message] The system which generated this result [...] ? Lab Interpretation Normal (test code = 92890-4) [facility]landsN-TERMINAL [id number] 02:57:10 Test Item Value Reference Range Interpretation Comments NT-proBNP (test code 25 pg/mL See_Comment [Autom ated = 8798286084) message] The system which generated this result transmitted reference range : <=125. The reference range was not used to interpret this result as normal/abnormal . MADISYN (test code = MADISYN) Biotin has been reported to cause a negative bias, interpret results relative to patient's use of biotin. Lab Interpretation Normal (test code = 12278-0) [facility] Metabolic Panel (NA, K, CL, CO2, GLUCOSE, BUN, CREATININE, CA)2020-09-14 02:48:49 Test Item Value Reference Range Interpretation Comments NA (test code = 135 mmol/L 135-145 9133074819) K (test code = 3.6 mmol/L 3.5-5.0 8555016669) CL (test code = 101 mmol/L 98-108 9737613861) CO2 TOTAL (test code = 23 mmol/L 23-31 9886961983) AGAP (test code = 2-16 0684286968) BUN (test code = 10 mg/dL 7-23 7536969356) GLUCOSE (test code = 296 mg/dL 70-110 H 3937044715) CREATININE (test code = 0.62 mg/dL 0.50-1.04 7814215888) CALCIUM (test code = 9.7 mg/dL 8.6-10.6 5505856202) eGFR Calculation mL/min/1.73m2 (Non-) (test code = 5519924806) eGFR Calculation mL/min/1.73m2 () (test code = 8759008608) MADISYN (test code = MADISYN) Association of [...] tests). Lab Interpretation Abnormal (test code = 34818-5) [facility]landsHepatic Function Panel (ALB, T.PRO, BILI T, BU/BC, ALT, AST, ALK PHOS)2020-09-14 02:48:48 Test Item Value Reference Range Interpretation Comments TOTAL BILI (test code = 1625440638) 0.4 mg/dL 0.1-1.1 BILI UNCON (test code = 4757278423) 0.4 mg/dL 0.1-1.1 BILI CONJ (test code = 7971642612) 0.0 mg/dL 0.0-0.3 T PROTEIN (test code = 0339489094) 7.7 g/dL 6.3-8.2 ALBUMIN (test code = 0604089498) 5.0 g/dL 3.5-5.0 ALK PHOS (test code = 3639589307) 78 U/L 34-122 ALTv (test code = 1742-6) 19 U/L 5-35 AST(SGOT) (test code = 6229299620) 25 U/L 13-40 Lab Interpretation (test code = Normal 62941-2) [facility]landsLipase [id number] 02:48:48 Test Item Value Reference Range Interpretation Comments LIPASE (test code = 8526732420) 38 U/L 0-220 Lab Interpretation (test code = Normal 50689-8) [facility]landsCOVID-19 (ID NOW RAPID TESTING)2020-09-14 02:36:29 Test Item Value Reference Range Interpretation Comments SARS-CoV-2 Rapid ID NOW Positive Not Detected A (test code = 58679-8) MADISYN (test code = MADISYN) ID NOW COVID-19 Assay is an isothermal nucleic acid amplification test intended for the qualitative detection of nucleic acid from SARS-CoV-2 viral RNA in nasopharyngeal (SHAKER OUT) specimens. It is used under Emergency Use [...] indicated. Lab Interpretation Abnormal (test code = 54681-2) [facility] with [id number] 02:30:06 Test Item Value Reference Range Interpretation Comments WBC (test code = See_Comment [Automated message] 6690-2) The system [employer] generated this result transmitted ref erence range: 4.30 - 1 1.10 10*3/?L. The re ference range was not u sed to interpret this result as normal/abnor mal. RBC (test code = See_Comment [Automated message] 789-8) The system [employer] generated this result transmitted ref erence range: [...] RDW-SD (test code 41.8 fL 39.0-49.9 = 03224-2) RDW-CV (test code 12.8 % 12.0-15.5 = 788-0) PLT (test code = See_Comment [Automated message] 777-3) The system whic h generated this result transmitted ref erence range: 166 - 35 8 10*3/?L. The re ference range was not u sed to interpret this result as normal/abnor mal. MPV (test code = 11.2 fL 9.5-12.9 01174-7) NRBC/100 WBC (test See_Comment [Automat ed message] code = 0377933515) The syste m which generated this result transmitted ref erence range: 0.0 - 10 .0 /100 WBCs. The refer ence range was not u sed to interpret this result as normal/abnor mal. NRBC x10^3 (test <0.01 See_Comment [Automated message] code = 8191660634) The syste m which generated this result transmitted ref erence range: 10*3/?L. The reference range was not used to interpr et this result as normal/abnormal . GRAN MAT (NEUT) % 54.0 % (test code = 770-8) IMM GRAN % (test 0.70 % code = 2381439631) LYMPH % (test code 36.2 % = 736-9) MONO % (test code 6.0 % = 5905-5) EOS % (test code = 2.8 % 713-8) BASO % (test code 0.3 % = 706-2) GRAN MAT 3.13 10*3/uL 1.88-7.09 x10^3(ANC) (test code = 4683086035) IMM GRAN x10^3 0.04 10*3/uL 0.00-0.06 (test code = 8981975022) LYMPH x10^3 (test 2.10 10*3/uL 1.32-3.29 code = 731-0) MONO x10^3 (test 0.35 10*3/uL 0.33-0.92 code = 742-7) EOS x10^3 (test 0.16 10*3/uL 0.03-0.39 code = 711-2) BASO x10^3 (test <0.03 0.01-0.07 code = 704-7) [facility] WITH [id number] 01:35:00 Test Item Value Reference Range Interpretation [...] RDW-SD (test code = 40.8 fL 39-49.9 92486-0) RDW-CV (test code = 12.5 % 12-15.5 788-0) PLT (test code = See_Comment [Automated 777-3) message] The sy stem which generated this result transmitted reference range : 166 - 358 10*3/ ?L. The reference r aiden was not used to interpret this result as normal/abnormal . MPV (test code = 11.0 fL 9.5-12.9 29429-5) IPF % (test code = 5.7 % 1.3-7.7 Platelet count 3806931577) measured by fluorescence method. NRBC/100 WBC (test See_Comment [Automat ed code = 1487939527) message] The system which generated this result transmitted reference range : 0.0 - 10.0 /100 WBCs. The refer ence range was not u sed to interpret th is result as normal/abnormal . NRBC x10^3 (test code <0.01 See_Comment [Auto mated = 1113906961) message] The s ystem which generated this result transmitted reference range : 10*3/?L. The reference range was not used to interpret this result as normal/abnormal . GRAN MAT (NEUT) % 60.2 % (test code = 770-8) IMM GRAN % (test code 1.60 % = 9264175833) LYMPH % (test code = 29.4 % 736-9) MONO % (test code = 6.2 % 5905-5) EOS % (test code = 2.3 % 713-8) BASO % (test code = 0.3 % 706-2) GRAN MAT x10^3(ANC) 5.31 10*3/uL 1.88-7.09 (test code = 1440141858) IMM GRAN x10^3 (test 0.14 10*3/uL 0-0.06 H code = 4961521817) LYMPH x10^3 (test code 2.59 10*3/uL 1.32-3.29 = 731-0) MONO x10^3 (test code 0.55 10*3/uL 0.33-0.92 = 742-7) EOS x10^3 (test code = 0.20 10*3/uL 0.03-0.39 711-2) BASO x10^3 (test code 0.03 10*3/uL 0.01-0.07 = 704-7) Lab Interpretation Abnormal (test code = 44804-4) [facility] - INFLUENZA A & B DIRECT [id number] 01:26:00 Test Item Value Reference Range Interpretation Comments Influenza A (test code = 01257-5) Negative Negative Influenza B (test code = 78381-2) Negative Negative Lab Interpretation (test code = Normal 75799-1) [facility] Metabolic Panel (NA, K, CL, CO2, GLUCOSE, BUN, CREATININE, CA)2019-07-28 01:21:00 Test Item Value Reference Range Interpretation Comments NA (test code = 137 mmol/L 135-145 [id number]) K (test code = 3.8 mmol/L 3.5-5 7840437779) CL (test code = 100 mmol/L 98-108 6566891670) CO2 TOTAL (test code = 24 mmol/L 23-31 3332710995) AGAP (test code = 2-16 2352146987) BUN (test code = 13 mg/dL 7-23 3231166627) GLUCOSE (test code = 245 mg/dL 70-110 H 6117378725) CREATININE (test code = 0.49 mg/dL 0.5-1.04 L 2400103196) CALCIUM (test code = 9.8 mg/dL 8.6-10.6 8849399208) eGFR Calculation mL/min/1.73m2 (Non-) (test code = 0513753572) eGFR Calculation mL/min/1.73m2 () (test code = 8466814323) MADISYN (test code = MADISYN) Association of [...] tests). Lab Interpretation Abnormal (test code = 84411-4) [facility] (ALB, T.PRO, BILI T, BU/BC, ALT, AST, ALK PHOS)2019-07-28 01:21:00 Test Item Value Reference Range Interpretation Comments TOTAL BILI (test code = 0865119871) 0.3 mg/dL 0.1-1.1 BILI UNCON (test code = 6595972929) 0.1 mg/dL 0.1-1.1 BILI CONJ (test code = 4784019955) 0.0 mg/dL 0-0.3 T PROTEIN (test code = 9442956775) 8.2 g/dL 6.3-8.2 ALBUMIN (test code = 7077179188) 5.0 g/dL 3.5-5 ALK PHOS (test code = 6690963289) 121 U/L 34-122 ALTv (test code = 1742-6) 33 U/L 5-35 AST(SGOT) (test code = 2289466830) 30 U/L 13-40 Lab Interpretation (test code = Normal 57223-5) [facility]landsRAPID STREP SCREEN FOR GROUP [id number] 01:19:00 Test Item Value Reference Range Interpretation Comments Streptococcus pyogenes (group A) Negative Negative antigen (test code = 96697-5) Lab Interpretation (test code = Normal 62138-4) [facility] CHEST 2 [id number] 00:53:20Impression: No acute cardiopulmonary changes. Small sized hiatal hernia. Preliminary Report Dictatedby Resident: Kb Vergara MD., have reviewed this study and agree withthe above report.XR CHEST 2 VW History: cough Comparison: None available Findings: The lungs are clear. No focal consolidation is present. No pleural effusionor pneumothorax is identified. The heart isnormal in size. The osseous structures are unremarkable. Smallsized hiatal hernia is present. [facility], Radiant Results Inft User - 07/27/2019 6:54 [...] reviewed this study and agree withthe above report.[facility] (NA, K, CL, CO2, GLUCOSE, BUN, CREATININE, CA)2019-03-11 20:52:00 Test Item Value Reference Range Interpretation Comments NA (test code = 141 mmol/L 135-145 5668195160) K (test code = 3.6 mmol/L 3.5-5 9784897106) CL (test code = 104 mmol/L 98-108 4963134000) CO2 TOTAL (test code = 24 mmol/L 23-31 8772248902) AGAP (test code = 2-16 6208924648) BUN (test code = 19 mg/dL 7-23 1310475087) GLUCOSE (test code = 161 mg/dL 70-110 H 4180057036) CREATININE (test code = 0.51 mg/dL 0.5-1.04 7363785464) CALCIUM (test code = 9.4 mg/dL 8.6-10.6 9397990589) eGFR Calculation mL/min/1.73m2 (Non-) (test code = 0151622641) eGFR Calculation mL/min/1.73m2 () (test code = 4014418227) MADISYN (test code = MADISYN) Association of [...] tests). Lab Interpretation Abnormal (test code = 83416-0) [facility] (ALB, T.PRO, BILI T, BU/BC, ALT, AST, ALK PHOS)2019-03-11 20:52:00 Test Item Value Reference Range Interpretation Comments TOTAL BILI (test code = 6230205911) 0.6 mg/dL 0.1-1.1 BILI UNCON (test code = 4731295102) 0.5 mg/dL 0.1-1.1 BILI CONJ (test code = 7051667315) 0.0 mg/dL 0-0.3 T PROTEIN (test code = 7363578284) 7.7 g/dL 6.3-8.2 ALBUMIN (test code = 8664652066) 4.9 g/dL 3.5-5 ALK PHOS (test code = 8891967222) 61 U/L 34-122 ALT(SGPT) (test code = 6848568959) 26 U/L 9-51 AST(SGOT) (test code = 1060841890) 28 U/L 13-40 Lab Interpretation (test code = Normal 57576-5) [facility]landsLipase [id number] 20:52:00 Test Item Value Reference Range Interpretation Comments LIPASE (test code = 1951093748) 22 U/L 0-220 Lab Interpretation (test code = Normal 37303-9) [facility]landsaPTT2019-09-05 20:40:00 Test Item Value Reference Range Interpretation Comments APTT Patient (test See_Comment L [Automat ed code = 3173-2) message] The system which generated this result transmitted reference range : 23 - 38 Seconds . The reference range was not used to interpr et this result as normal/abnormal . MADISYN (test code = MADISYN) The [facility] patient population mean normal value for aPTT is 30 seconds. Lab Interpretation Abnormal (test code = 50413-1) [facility]landsProthrombin Time (PT) / [id number] 20:38:00 Test Item Value Reference Range Interpretation [...] tions. Lab Interpretation (test Normal code = 34061-3) [facility] WITH [id number] 20:33:00 Test Item Value Reference Range Interpretation Comments WBC (test code = See_Comment [Automated 4390-2) message] The sy stem which generated this result transmitted reference range : 4.30 - 11.10 10*3/?L. The reference range was not used to interpret this result as normal/abnormal . RBC (test code = See_Comment [Automated 119-8) message] The sy stem which generated this [...] RDW-SD (test code = 44.3 fL 39-49.9 14503-7) RDW-CV (test code = 12.9 % 12-15.5 788-0) PLT (test code = See_Comment [Automated 777-3) message] The sy stem which generated this result transmitted reference range : 166 - 358 10*3/ ?L. The reference r aiden was not used to interpret this result as normal/abnormal . MPV (test code = 10.9 fL 9.5-12.9 60883-3) NRBC/100 WBC (test See_Comment [Automat ed code = 3264919203) message] The system which generated this result transmitted reference range : 0.0 - 10.0 /100 WBCs. The refer ence range was not u sed to interpret th is result as normal/abnormal . NRBC x10^3 (test code <0.01 See_Comment [Auto mated = 1969436373) message] The s ystem which generated this result transmitted reference range : 10*3/?L. The reference range was not used to interpret this result as normal/abnormal . GRAN MAT (NEUT) % 86.3 % (test code = 770-8) IMM GRAN % (test code 0.50 % = 8059208458) LYMPH % (test code = 8.8 % 736-9) MONO % (test code = 4.0 % 5905-5) EOS % (test code = 0.2 % 713-8) BASO % (test code = 0.2 % 706-2) GRAN MAT x10^3(ANC) 8.24 10*3/uL 1.88-7.09 H (test code = 1598843641) IMM GRAN x10^3 (test 0.05 10*3/uL 0-0.06 code = 3362001815) LYMPH x10^3 (test code 0.84 10*3/uL 1.32-3.29 L = 731-0) MONO x10^3 (test code 0.38 10*3/uL 0.33-0.92 = 742-7) EOS x10^3 (test code = <0.03 0.03-0.39 L 711-2) BASO x10^3 (test code <0.03 0.01-0.07 = 704-7) Lab Interpretation Abnormal (test code = 28185-3) [facility]"
[2022-11-25 20:54] LABS: Absolute Lymphocytes (CBC) 2.1 K/uL (0.7-4.9); Hematocrit 34.5 % (36.0-45.0); Lymphocytes % 28.3 % (15.3-44.8); MCV 91.4 fL (80-100); MPV 8.5 fL (7.6-11.3); RBC Red Blood Cell Count 3.77 M/uL (3.86-4.86)
[2022-11-25] MEDS ORDERED: LORazepam 2 MG/ML VIAL ONE (21:03)
[2022-11-25 21:10] LABS: Potassium 3.9 mEq/L (3.5-5.1); Troponin High Sensitivity 4.7 pg/mL (<58.9)
--- NOTE | 2022-11-25 21:57 | EDPHYS ---
Physician Documentation [facility] Name: Dolores Pérez Age: 62 yrs Sex: Female : 1960 Arrival Date: 11/25/2022 Time: 19:35 Bed 8 Private MD: ED Physician Crystal Levy HPI: 11/25 21:53 This 62 yrs old Female presents to ER via Ambulatory with complaints of High Blood jmm Pressure. 21:53 Onset: The symptoms/episode began/occurred today. This is a 62 year old female with a jmm history of asthma, tia, hlp dm, that present to the D with complaints of anxiety and elevated blood pressure. Patient is worried she may have a heart attack. Currently having no chest pain or shortness of breath. Denies weakness. States having increased stress due to taking care of her and paying her bills. . Historical: - Allergies: 20:02 NSAIDS; kd3 20:02 peanuts; kd3 20:02 Sulfa (Sulfonamide Antibiotics); kd3 20:02 Prednisone; kd3 - PMHx: 20:02 Asthma; Transient cerebral ischemia; High Cholesterol; diabetes mellitus; Hypertension; kd3 COPD; Hypothyroidism; - Immunization history:: Adult Immunizations up to date. - Social history:: Smoking status: Patient denies any tobacco usage or history of. ROS: 21:53 Constitutional: Negative for fever, chills, and weight loss, Cardiovascular: Negative jmm for chest pain, palpitations, and edema, Respiratory: Negative for shortness of breath, cough, wheezing, and pleuritic chest pain. 21:53 Psych: Positive for anxiety. 21:53 All other systems are negative. Exam: 21:53 Head/Face: atraumatic. Eyes: EOMI, no conjunctival erythema appreciated ENT: Moist jmm Mucus Membranes Neck: Trachea midline, Supple Chest/axilla: Normal chest wall appearance and motion. Cardiovascular: Regular rate and rhythm. No edema appreciated Respiratory: Normal respirations, no respiratory distress appreciated Abdomen/GI: Non distended Back: Normal ROM Skin: General appearance color normal MS/ Extremity: Moves all extremities, no obvious deformities appreciated, no edema noted to the lower extremities Neuro: Awake and alert 21:53 Constitutional: The patient appears alert, awake, anxious. 21:53 Psych: Behavior/mood is pleasant, cooperative, anxious. Vital Signs: 19:58 BP 176 / 74; Pulse 88; Resp 21; Temp 99.3; Pulse Ox 96% on R/A; Weight 58.51 kg; Height kd3 5 ft. 7 in. ; 20:09 BP 165 / 75; Pulse 86; Resp 19; Pulse Ox 98% on R/A; kd3 20:21 BP 155 / 73; Pulse 76; Resp 18; Pulse Ox 97% on R/A; kd3 22:00 BP 127 / 66; Pulse 70; Resp 18; Pulse Ox 96% on R/A; vc1 19:58 Body Mass Index 20.20 (58.51 kg, 170.18 cm) kd3 MDM: 20:11 Patient medically screened. [facility] 21:55 Differential diagnosis: hypertensive crisis, Malignant HTN, CVA. Data reviewed: vital [facility] signs, nurses notes, lab test result(s), EKG. I considered the following discharge prescriptions or medication management in the emergency department Medications were administered in the Emergency Department. See MAR. Counseling: I had a detailed discussion with the patient and/or guardian regarding: the historical points, exam findings, and any diagnostic results supporting the discharge/admit diagnosis, lab results, the need for outpatient follow up, to return to the emergency department if symptoms worsen or persist or if there are any questions or concerns that arise at home. ED course: Patient states feeling much better. Patient is advised to follow up with pcp and otherwise given strict return precautions. patient understood and agrees with the plan of care. . 11/25 20:11 Order name: Basic Metabolic Panel; Complete Time: 21: [facility] 11/25 20:11 Order name: CBC with Diff; Complete Time: 21:02 [facility] 11/25 20:11 Order name: Troponin HS; Complete Time: 21: [facility] 11/25 20:11 Order name: EKG; Complete Time: 20:11 [facility] 11/25 20:11 Order name: Cardiac monitoring; Complete Time: 21:02 [facility] 11/25 20:11 Order name: EKG - Nurse/Tech; Complete Time: 20:12 [facility] 11/25 20:11 Order name: IV Saline Lock; Complete Time: 20:41 [facility] 11/25 20:11 Order name: Labs collected and sent; Complete Time: 20:41 [facility] 11/25 20:11 Order name: O2 Per Protocol; Complete Time: 21:02 [facility] 11/25 20:11 Order name: O2 Sat Monitoring; Complete Time: 21: [facility] Administered Medications: 21: Drug: Ativan IVP 1 mg Route: IVP; Site: left forearm; mb9 22:18 Follow up: Response: No adverse reaction; Marked relief of symptoms; Blood pressure is vc1 lowered Disposition Summary: 11/25/22 21:57 Discharge Ordered Location: Home [facility] Condition: Stable [facility] Diagnosis - Generalized anxiety disorder [facility] - Elevated Blood Pressure [facility] Followup: [facility] - With: Private Physician - When: 2 - 3 days - Reason: Recheck today's complaints, Continuance of care, Re-evaluation by your physician Discharge Instructions: - Discharge Summary Sheet [facility] - Panic Attack jmm - Generalized Anxiety Disorder, Adult [facility] Forms: - Medication Reconciliation Form [facility] - Thank You Letter [facility] - Antibiotic Education [facility] - Prescription Opioid Use [facility] Prescriptions: - Hydroxyzine HCl 25 mg Oral Tablet - take 1 tablet by ORAL route every 6 hours As needed; 30 tablet; Refills: 0, [facility] Product Selection Permitted Signatures: Dispatcher [employer] EDMS Anuj Fernandez PA PA [facility] Suzanne Banuelos RN RN kd3 Cherise Encarnacion RN RN mb9 Spring Ramirez RN vc1 Corrections: (The following items were deleted from the chart) :57 21:57 Elevated blood-pressure reading, without diagnosis of hypertension [facility]
--- NOTE | 2022-11-25 21:57 | ER ---
Nurse's Notes [facility] Name: Dolores Pérez Age: 62 yrs Sex: Female : 1960 Arrival Date: 11/25/2022 Time: 19:35 Bed 8 Private MD: Diagnosis: Generalized anxiety disorder;Elevated Blood Pressure Presentation: 11/25 19:59 Chief complaint: Patient states: I am very stressed. My went into the hospital kd3 and I am having to pay for all of our bills out of my inheritance. I do not work. I feel like I am going to pop and my blood pressure is really high. I am already taking pills for anxiety and depression. Coronavirus screen: Vaccine status: Patient reports receiving the 2nd dose of the covid vaccine. Ebola Screen: No symptoms or risks identified at this time. Initial Sepsis Screen: Does the patient meet any 2 criteria? No. Patient's initial sepsis screen is negative. Does the patient have a suspected source of infection? No. Patient's initial sepsis screen is negative. Risk Assessment: Do you want to hurt yourself or someone else? Patient reports no desire to harm self or others. Onset of symptoms was November 25, 2022. 19:59 Method Of Arrival: Ambulatory kd3 19:59 Acuity: AARON 3 kd3 Triage Assessment: 20:02 General: Appears distressed, Behavior is anxious. General: Behavior is crying. Pain: kd3 Denies pain. Neuro: Level of Consciousness is awake, alert, obeys commands, Oriented to person, place, time, situation. Historical: - Allergies: 20:02 NSAIDS; kd3 20:02 peanuts; kd3 20:02 Sulfa (Sulfonamide Antibiotics); kd3 20:02 Prednisone; kd3 - PMHx: 20:02 Asthma; Transient cerebral ischemia; High Cholesterol; diabetes mellitus; Hypertension; kd3 COPD; Hypothyroidism; - Immunization history:: Adult Immunizations up to date. - Social history:: Smoking status: Patient denies any tobacco usage or history of. Screenin:03 [facility] ED Fall Risk Assessment (Adult) History of falling in the last 3 months, mb9 including since admission No falls in past 3 months (0 pts) Confusion or Disorientation No (0 pts) Intoxicated or Sedated No (0 pts) Impaired Gait No (0 pts) Mobility Assist Device Used No (0 pt) Altered Elimination No (0 pt) Score/Fall Risk Level 0 - 2 = Low Risk Oriented to surroundings, Maintained a safe environment, Educated pt \T\ family on fall prevention, incl call for assistance when getting out of bed. Abuse screen: Denies threats or abuse. Nutritional screening: No deficits noted. Tuberculosis screening: No symptoms or risk factors identified. Assessment: 21:02 General: Appears in no apparent distress. Behavior is anxious. Pain: Denies pain. mb9 Neuro: Level of Consciousness is awake, alert, obeys commands, Oriented to person, place, time, situation, Appropriate for age. Cardiovascular: Rhythm is regular. Respiratory: Airway is patent Respiratory effort is even, unlabored, Respiratory pattern is regular, symmetrical. Derm: Skin is pink, warm \T\ dry. 21:59 Reassessment: No changes from previously documented assessment. Patient and/or family vc1 updated on plan of care and expected duration. Pain level reassessed. Patient is alert, oriented x 3, equal unlabored respirations, skin warm/dry/pink. Vital Signs: 19:58 BP 176 / 74; Pulse 88; Resp 21; Temp 99.3; Pulse Ox 96% on R/A; Weight 58.51 kg; Height kd3 5 ft. 7 in. ; 20:09 BP 165 / 75; Pulse 86; Resp 19; Pulse Ox 98% on R/A; kd3 20:21 BP 155 / 73; Pulse 76; Resp 18; Pulse Ox 97% on R/A; kd3 22:00 BP 127 / 66; Pulse 70; Resp 18; Pulse Ox 96% on R/A; vc1 19:58 Body Mass Index 20.20 (58.51 kg, 170.18 cm) kd3 ED Course: 19:40 Patient arrived in ED. ja2 20:02 Triage completed. kd3 20:02 Arm band placed on right wrist. kd3 20:03 Anuj Fernandez PA is PHCP. [facility] 20:03 Crystal Levy MD is Attending Physician. [facility] 20:41 Initial lab(s) drawn, by ri, sent to lab. Inserted saline lock: 22 gauge in left jw7 antecubital area, using aseptic technique. Blood collected. 20:42 Basic Metabolic Panel Sent. jw7 20:42 CBC with Diff Sent. jw7 20:42 Troponin HS Sent. jw7 20:52 Cherise Encarnacion, RN is Primary Nurse. mb9 20:57 Basic Metabolic Panel Sent. jw7 20:57 CBC with Diff Sent. jw7 20:57 Troponin HS Sent. jw7 21:03 Placed in gown. Bed in low position. Call light in reach. Side rails up X 1. Client mb9 placed on continuous cardiac and pulse oximetry monitoring. NIBP monitoring applied. school bus monitor on. 22:17 No provider procedures requiring assistance completed. IV discontinued, intact, vc1 bleeding controlled, No redness/swelling at site. Pressure dressing applied. Administered Medications: 21:02 Drug: Ativan IVP 1 mg Route: IVP; Site: left forearm; mb9 22:18 Follow up: Response: No adverse reaction; Marked relief of symptoms; Blood pressure is vc1 lowered Medication: 21:03 VIS not applicable for this client. mb9 Outcome: 21:57 Discharge ordered by . zaria 22:17 Discharged to home ambulatory. vc1 22:17 Condition: good 22:17 Discharge instructions given to patient, Instructed on discharge instructions, follow up and referral plans. medication usage, Demonstrated understanding of instructions, follow-up care, medications, Prescriptions given X 1. 22:18 Patient left the ED. vc1 Signatures: Anuj Fernandez PA PA jmm Alexander, Jessica ja2 Doucette, Kyli RN RN kd3 Spring Ramirez RN RN vc1 Lorena Valdez jw7 Cherise Encarnacion, RN RN mb9
[2022-11-25 23:22] VITALS: TEMP 99.3
[2022-11-25 23:26] VITALS: BP 127/66; O2SAT 96
--- NOTE | 2022-11-27 04:58 | EKG ---
Test Date: 2022-11-25 Test Time: 20:09:03 End Worker: HARPAL MEASUREMENT RESULTS: Intervals: Rate: 84 DC: 142 QRSD: 88 QT: 376 QTc: 444 Curtis: P: 77 DC: 142 QRS: 60 T: 70 INTERPRETIVE STATEMENTS: Normal sinus rhythm Nonspecific ST abnormality Abnormal ECG Compared to ECG 05/08/2022 20:03:47 No significant changes Electronically Signed On 11-27-22 04:54:31 CDT by George Ma
== END 2022-11-25 22:18 | disposition home or self-care (01) ==
LOC: ER 19:35
DX: F41.1 Generalized anxiety disorder (principal); I10 Essential (primary) hypertension; E11.9 Type 2 diabetes mellitus without complications; E78.00 Pure hypercholesterolemia, unspecified; J44.9 Chronic obstructive pulmonary disease, unspecified; Z86.73 Personal history of transient ischemic attack (TIA), and cerebral infarction without residual deficits; Z88.2 Allergy status to sulfonamides; Z88.6 Allergy status to analgesic agent; Z88.8 Allergy status to other drugs, medicaments and biological substances; Z91.010 Allergy to peanuts
CPT/HCPCS: 36415; 80048; 84484; 85025; 93005

== ENCOUNTER 2022-11-30 13:20 | Emergency (ER) | payer OTHER ==
--- OUTSIDE RECORDS SUMMARY | 2022-11-30 13:27 | XMS REPORT | Continuity of Care Document ---
:1960 Author Organization [facility] t Address [address] [facility] [address] [place] [id number] Care Team Providers Name Role Phone PAULINA DUNHAM Primary Care Physician Unavailable Susan Rodriguez Attending Clinician Unknown, Attending Attending Clinician Unavailable SUSAN LEE Attending Clinician Unavailable Doctor Unassigned, [place] Attending Clinician Unavailable Only, Ang Db Test [...] Effective Date Expiration Date Teodora FALK II [id number] 2016 00:00:00 Problems Condition Condition Condition Status [...] to 4-10 ity of mide adverse 00:00: [place] Antibiot reaction 00 Medica l ics) s Branch Social History Social Habit Start Date Stop Date Quantity Comments Source Exposure to 2022-08-14 2022-08-24 Not sure [facility] SARS-CoV-2 00:00:00 09:35:00 [facility] (event) Branch Tobacco use and 2022-08-24 2022-08-24 Smokeless tobacco Un iversity of exposure 00:00:00 00:00:00 non-[address] [facility] Sex Assigned At [birth year] Universit y of 00:00:00 00:00:[address] [facility] Smoking Status Start Date Stop Date Source Never smoked tobacco [facility] Medications Ordered Filled Start Stop Current Ordering Indication Dosage Frequency Signature Comments Components Source Medication Medication Date Date Medication? Clinician (SIG) Name Name altagracia Yes [id number] 5mL Take 5 mL Univers mine-pseudo 2-18 by mouth 4 it y of ephedrine-D 00:00: (four[place] (BROMFED 00 times Medical DM) 2-30-10 daily as Bran ch mg/5 mL needed for syrup Congestion /Allergies . benzonatate Yes [id number] 100mg Take 1 Univers 100 mg 7-03 capsule by ity of capsule 00:00: mouth 3 [place] 00 (three) Medical times Branch daily as needed for Cough. loratadine Yes [id number] 10mg Take 1 U nivers (CLARITIN) 7-03 tablet by ity of 10 mg 00:00: mouth at [place] tablet 00 bedtime as Medical needed for Branch Allergies. benzonatate Yes [id number] 100mg Take 1 Univers 100 mg 7-03 capsule by ity of capsule 00:00: mouth 3 [place] 00 (three) Medical times Branch daily as needed for Cough. loratadine Yes [id number] 10mg Take 1 U nivers (CLARITIN) 7-03 tablet by ity of 10 mg 00:00: mouth at [place] tablet 00 bedtime as Medical needed for Branch Allergies. benzonatate 0 Yes [id number] 100mg Take 1 [facility] 100 mg 7-03 capsule by ity of capsule 00:00: mouth 3 (three) Medical times Branch daily as needed for Cough. loratadine 2-0 Yes [id number] 10mg Take 1 U nivers (CLARITIN) 7-03 tablet by ity of 10 mg 00:00: mouth at [place] tablet 00 bedtime as Medical needed for Branch Allergies. benzonatate 2-0 Yes [id number] 100mg Take 1 [facility] 100 mg 7-03 capsule by ity of capsule 00:00: mouth 3 (three) Medical times Branch daily as needed for Cough. loratadine 2-0 Yes [id number] 10mg Take 1 U nivers (CLARITIN) 7-03 tablet by ity of 10 mg 00:00: mouth at [place] tablet 00 bedtime as Medical needed for Branch Allergies. benzonatate 2-0 Yes [id number] 100mg Take 1 Univers 100 mg 7-03 capsule by ity of capsule 00:00: mouth (three) Medical times Branch daily as needed for Cough. loratadine 2-0 Yes [id number] 10mg Take 1 U nivers (CLARITIN) 7-03 tablet by ity of 10 mg 00:00: mouth at [place] tablet 00 bedtime as Medical needed for Branch Allergies. benzonatate 2-0 Yes [id number] 100mg Take 1 Univers 100 mg 2-01 capsule by ity of capsule 00:00: mouth (three) Medical times Branch daily as needed for Cough. benzonatate 2-0 Yes [id number] 100mg Take 1 [facility] 100 mg 2-01 capsule by ity of capsule 00:00: mouth (three) Medical times Branch daily as needed for Cough. benzonatate 2-0 Yes [id number] 100mg Take 1 [facility] 100 mg 2-01 capsule by ity of capsule 00:00: mouth (three) Medical times Branch daily as needed for Cough. benzonatate 2022-0 Yes [id number] 100mg Take 1 [facility] 100 mg 2-01 capsule by ity of capsule 00:00: mouth (three) Medical times Branch daily as needed for Cough. benzonatate 2022-0 Yes [id number] 100mg Take 1 [facility] 100 mg 2-01 capsule by ity of capsule 00:00: mouth (three) Medical times Branch daily as needed for Cough. benzonatate 0 Yes [id number] 100mg Take 1 [facility] 100 mg 2-01 capsule by ity of capsule 00:00: mouth 3 00 (three) Medical times Branch daily as needed for Cough. benzonatate 2021-0 Yes [id number] 100mg Take 1 [facility] 100 mg 2-01 capsule by ity of capsule 00:00: mouth 3 00 (three) Medical times Branch daily as needed for Cough. benzonatate 0 Yes [id number] 100mg Take 1 [facility] 100 mg 2-01 capsule by ity of capsule 00:00: mouth 3 00 (three) Medical times Branch daily as needed for Cough. benzonatate 2021-0 Yes [id number] 100mg Take 1 Univers 100 mg 2-01 [...] Therapy: Other (see Comments) iopamidol 2020-07- No [id number] 120mL 120 mL, Univers (ISOVUE 08-31 Intravenou ity o f 370-500 mL) 00:15: 23:08 s, ONCE, 1 [place] injection 00 :00 dose, On Medica l 120 mL Fri Branch 06/29/21 at 1815, Routine amoxicillin 2020-07- No [id number] 1{tbl} Take 1 Univers -clavulanat 08-30 tablet [...] Indication s: acute pain ondansetron 2020-07- No [id number] 4mg Take 1 Univers 4 mg tablet 2-24 12-30 tablet by it y of 00:00: 05:59 mouth [place] 00 :00 every 8 Medical (eight) Branch hours for 5 days. atorvastati 2020-07 Yes 10mg 10 mg, Univ ers n (LIPITOR) 1-15 Oral, QHS, it y of tablet 10 03:00: First dose [place] mg 00 on [facility] 05/20/21 Branch at 2100, Until Discontinu ed, Routine atorvastati 2020-07 Yes 10mg Take 10 mg Univers n 10 mg 1-14 by mouth ity of tablet 17:23: at [place] bedtime. Medical Branch spironolact 2020-07 Yes 25mg [...] mouth at [place] as ORAL) 01 bedtime. [facility] Branch enoxaparin 2020-07 Yes 40mg 40 mg, Unive rs (LOVENOX) 1-14 Subcutaneo ity of injection 15:00: us, DAILY, [place] 40 mg 00 First dose Medical on [facility] 05/20/21 at 0900, Until Discontinu ed, Routine clopidogreL 2020-07 Yes 75mg 75 mg, Univ ers (PLAVIX) 1-14 Oral, QAM, ity o f tablet 75 15:00: First dose [place] mg 00 on [facility] 05/20/21 Branch at 0900, Until Discontinu ed, Routine ALPRAZolam 2020-07 Yes .5mg 0.5 mg, Univ ers (XANAX) 1-14 Oral, ity of tablet 0.5 15:00: DAILY, [place] mg 00 First dose Medical on [facility] 05/20/21 at 0900, Until Discontinu ed, Routine spironolact 2020-07 Yes 25mg 25 mg, Univ ers one 1-14 Oral, BID, ity of (ALDACTONE) 14:00: First dose [place] tablet 25 00 on [facility] 05/20/21 Branch at 0800, Until Discontinu ed, Routine Sliding 2020-07 Yes Subcutaneo Univ ers Scale 1-14 us, AC, ity of Insulin-Reg 13:30: First dose [place] ular + Fsbg [facility] Branch at 0730, Until Discontinu ed, Routine levothyroxi 2020-07 Yes 100ug 100 mcg, U nivers ne 1-14 Oral, ity of (SYNTHROID) 12:00: QAM-0600, [place] tablet 100 00 First dose Med ical mcg on [facility] 05/20/21 at 0600, Until Discontinu ed, Routine pantoprazol 2020-07 Yes 40mg 40 mg, Univ ers e 1-14 Oral, ity of (PROTONIX) 06:30: DAILY, [place] EC tablet 00 First dose Medi hermelindo 40 mg (after Branch last modificati on) on [place] 05/20/21 at 0030, Until Discontinu ed cyclobenzap 2020-07 Yes 10mg 10 mg, Univ ers rine 1-14 Oral, ity of (FLEXERIL) 06:12: TIDPRN, [place] tablet 10 13 Starting Medica l mg on [facility] 05/20/21 at 0012, Until Discontinu ed, Routine, Muscle Spasms, leg pain polyethylen 2020-07 Yes 17g 17 g, Unive rs e glycol 1-14 Oral, ity of 3350 powder 06:04: [id number], [place] 17 g 16 Starting Medical on [facility] 05/20/21 at 0004, Until Discontinu ed, Routine, Constipati on glucagon 2020-07 Yes 1mg 1 mg, Univers (GLUCAGEN 1-14 Intramuscu ity of DIAGNOSTIC 05:29: lar, PRN, [place] KIT) 29 Starting Medical injection 1 on [facility] 05/19/21 at 2329, Until Discontinu ed, [...] Q4HPRN, [place] 11 :11 Starting Medical on [facility] Branch 05/19/21 at 2329, Until 05/20/21 at 2328, Routine, Pain (scale 7-10), Chest pain traMADoL 2020-07- No 50mg 50 mg, Univer s (ULTRAM) 07-2016 Oral, ity of tablet 50 05:29: 05:28 Q8HPRN, [place] mg 08 :08 Starting Medical on [facility] Branch 05/19/21 at 2329, Until 05/21/21 at 2328, Routine, Pain (scale 4-6) acetaminoph 2020-07 Yes 650mg 650 mg, Un brice en 14 Oral, ity of (TYLENOL) 05:29: Q6HPRN, [place] tablet 650 05 Starting Medic al mg on [facility] Branch 05/19/21 at 2329, Until Discontinu ed, Routine, Pain (scale 1-3) omeprazole 2020-07- No 20mg Take 20 mg Univers 20 mg 07-1913 by mouth ity of capsule 23:30: 00:00 daily. [place] 33 :00 [facility] guaiFENesin 2020- No 100mg 100 mg, U nivers 100 mg/5 mL 09-1411 Oral, ity of solution 05:00: 16:59 ONCE, 1 [place] 100 mg 00 :00 dose, Fri [facility] 09/13/20 at Branch 2300, Routine ketorolac 2020- No 30mg 30 mg, Unive rs (TORADOL) 09-1411 Slow IV ity of injection 03:30: 02:27 Push, [place] 30 mg 00 :00 ONCE, 1 Medical dose, [facility] 09/13/20 at 2130, JEFFREY
Fa culty member approving Restricted medication : DIANA BERG benzonatate Yes [id number] 100mg Take 1 [facility] 100 mg 3-10 capsule by ity of capsule 00:00: mouth 3 [place] 00 (three) Medical times [place] daily as needed for Cough. benzonatate Yes [id number] 100mg Take 1 [facility] 100 mg 3-10 capsule by ity of capsule 00:00: mouth 3 [place] 00 (three) Medical times Branch daily as needed for Cough. benzonatate 2020- No [id number] 100mg Take 1 Univers 100 mg 09-13 [...] 10 1929, JEFFREY mL codeine-gua 2019-0 Yes [id number] 10mL Take 10 mL Univers ifenesin -21 by mouth ity of 10-100 mg/5 00:00: every 6 [place] as mL solution 00 (six) Medical hours as Branch needed for Cough. albuterol 2020-0 Yes [id number] 2.5mg Inhale 3 Univers 2.5 mg /3 1-21 mL every 4 ity of mL (0.083 00:00: (four) [place] %) 00 hours as Medical nebulizer needed for Bran ch solution Wheezing or Shortness of Breath. May also nebulize one extra every 6 hours. albuterol 2020-0 Yes [id number] 2.5mg Inhale 3 Univers 2.5 mg /3 1-21 mL every 4 ity of mL (0.083 00:00: (four) [place] %) 00 hours as Medical nebulizer needed for Bran ch solution Wheezing or Shortness of Breath. May also nebulize one extra every 6 hours. albuterol 2020-0 Yes [id number] 2.5mg Inhale 3 Univers 2.5 mg /3 1-21 mL every 4 ity of mL (0.083 00:00: (four) [place] %) 00 hours as Medical nebulizer needed for Bran ch solution Wheezing or Shortness of Breath. May also nebulize one extra every 6 hours. albuterol 2020-0 Yes [id number] 2.5mg Inhale 3 Univers 2.5 mg /3 1-21 mL every 4 ity of mL (0.083 00:00: (four) [place] %) 00 hours as Medical nebulizer needed for Bran ch solution Wheezing or Shortness of Breath. May also nebulize one extra every 6 hours. albuterol 2020-0 Yes [id number] 2.5mg Inhale 3 Univers 2.5 mg /3 1-21 mL every 4 ity of mL (0.083 00:00: (four) [place] %) 00 hours as Medical nebulizer needed for Bran ch solution Wheezing or Shortness of Breath. May also nebulize one extra every 6 hours. albuterol 2020-0 Yes [id number] 2.5mg Inhale 3 Univers 2.5 mg /3 1-21 mL every 4 ity of mL (0.083 00:00: (four) [place] %) 00 hours as Medical nebulizer needed for Bran ch solution Wheezing or Shortness of Breath. May also nebulize one extra every 6 hours. albuterol 2020-0 Yes [id number] 2.5mg Inhale 3 Univers 2.5 mg /3 1-21 mL every 4 ity of mL (0.083 00:00: (four) [place] %) 00 hours as Medical nebulizer needed for Bran ch solution Wheezing or Shortness of Breath. May also nebulize one extra every 6 hours. albuterol 2020-0 Yes [id number] 2.5mg Inhale 3 Univers 2.5 mg /3 1-21 mL every 4 ity of mL (0.083 00:00: (four) [place] %) 00 hours as Medical nebulizer needed for Bran ch solution Wheezing or Shortness of Breath. May also nebulize one extra every 6 hours. albuterol 2020-0 Yes [id number] 2.5mg Inhale 3 Univers 2.5 mg /3 1-21 mL every 4 ity of mL (0.083 00:00: (four) [place] %) 00 hours as Medical nebulizer needed for Bran ch solution Wheezing or Shortness of Breath. May also nebulize one extra every 6 hours. albuterol 2020-0 Yes [id number] 2.5mg Inhale 3 Univers 2.5 mg /3 1-21 mL every 4 ity of mL (0.083 00:00: (four) [place] %) 00 hours as Medical nebulizer needed for Bran ch solution Wheezing or Shortness of Breath. May also nebulize one extra every 6 hours. albuterol 2020-0 Yes [id number] 2.5mg Inhale 3 Univers 2.5 mg /3 1-21 mL every 4 ity of mL (0.083 00:00: (four) [place] %) 00 hours as Medical nebulizer needed for Bran ch solution Wheezing or Shortness of Breath. May also nebulize one extra every 6 hours. albuterol 2020-0 Yes [id number] 2.5mg Inhale 3 Univers 2.5 mg /3 1-21 mL every 4 ity of mL (0.083 00:00: (four) [place] %) 00 hours as Medical nebulizer needed for Bran ch solution Wheezing or Shortness of Breath. May also nebulize one extra every 6 hours. albuterol 2020-0 Yes [id number] 2.5mg Inhale 3 Univers 2.5 mg /3 1-21 mL every 4 ity of mL (0.083 00:00: (four) [place] %) 00 hours as Medical nebulizer needed for Bran ch solution Wheezing or Shortness of Breath. May also nebulize one extra every 6 hours. albuterol 2020-0 Yes [id number] 2.5mg Inhale 3 Univers 2.5 mg /3 1-21 mL every 4 ity of mL (0.083 00:00: (four) [place] %) 00 hours as Medical nebulizer needed for Bran ch solution Wheezing or Shortness of Breath. May also nebulize one extra every 6 hours. albuterol 2020-0 Yes [id number] 2.5mg Inhale 3 Univers 2.5 mg /3 1-21 mL every 4 ity of mL (0.083 00:00: (four) [place] %) 00 hours as Medical nebulizer needed for Bran ch solution Wheezing or Shortness of Breath. May also nebulize one extra every 6 hours. codeine-gua 2020-0 2020- No [id number] 10mL Take 10 mL Univers ifenesin 1-21 [...] 03/11/19 at 1430, JEFFREY dicyclomine 2018-0 Yes [id number] 10mg Take 1 Univers (BENTYL) 10 9-05 capsule by it y of mg capsule 00:00: mouth 4 [place] 00 (four) Medical times Branch daily. ondansetron 2019-0 Yes [id number] 4mg Take 1 Univers 4 mg 9-05 tablet by ity of disintegrat 00:00: mouth [place] ing tablet 00 every 4 Medica l (four) Branch hours as needed for Nausea and Vomiting (N/V). dicyclomine 2019-0 Yes [id number] 10mg Take 1 Univers (BENTYL) 10 9-05 capsule by it y of mg capsule 00:00: mouth 4 [place] 00 (four) Medical times Branch daily. ondansetron 2019-0 Yes [id number] 4mg Take 1 Univers 4 mg 9-05 tablet by ity of disintegrat 00:00: mouth [place] ing tablet 00 every 4 Medica l (four) Branch hours as needed for Nausea and Vomiting (N/V). dicyclomine 2019-0 Yes [id number] 10mg Take 1 Univers (BENTYL) 10 9-05 capsule by it y of mg capsule 00:00: mouth 4 [place] 00 (four) Medical times Branch daily. ondansetron 2019-0 Yes [id number] 4mg Take 1 Univers 4 mg 9-05 tablet by ity of disintegrat 00:00: mouth [place] ing tablet 00 every 4 Medica l (four) Branch hours as needed for Nausea and Vomiting (N/V). dicyclomine 2020- No [id number] 10mg Take 1 Univers (BENTYL) 10 -05 03-10 capsule by i ty of mg capsule 00:00: 00:00 mouth 4 [place] as 00 :00 (four) Medical times Branch daily. ondansetron 2020- No [id number] 4mg Take 1 Univers 4 mg 9-05 [...] by mouth ity of tablet 14:40: at [place] [address] bedtime. Medical Branch omeprazole 2018- Yes 20mg Take 20 mg U nivers 20 mg 4-10 by mouth ity of capsule 14:40: daily. [place] [address] Medical Branch atorvastati 2017-0 Yes 10mg Take 10 mg Univers n 10 mg 4-10 by mouth ity of tablet 14:40: at [place] [address] bedtime. Medical Branch omeprazole 2018-0 Yes 20mg Take 20 mg U nivers 20 mg 4-10 by mouth ity of capsule 14:40: daily. [place] [address] Medical Branch atorvastati 2017-0 Yes 10mg Take 10 mg Univers n 10 mg 4-10 by mouth ity of tablet 14:40: at [place] [address] bedtime. Medical Branch omeprazole 2018-0 Yes 20mg Take 20 mg U nivers 20 mg 4-10 by mouth ity of capsule 14:40: daily. [place] [address] Medical Branch atorvastati 2017-0 Yes 10mg Take 10 mg Univers n 10 mg 4-10 by mouth ity of tablet 14:40: at [place] [address] bedtime. Medical Branch omeprazole 2017-0 Yes 20mg Take 20 mg U nivers 20 mg 4-10 by mouth ity of capsule 14:40: daily. [place] [address] Medical Branch atorvastati 2017-0 Yes 10mg Take 10 mg Univers n 10 mg 4-10 by mouth ity of tablet 14:40: at [place] [address] bedtime. Medical Branch omeprazole 2017-0 Yes 20mg Take 20 mg U nivers 20 mg 4-10 by mouth ity of capsule 14:40: daily. [place] [address] Medical Branch levothyroxi 2018-0 Yes TAKE 1 Univ ers ne 125 mcg 4-10 TABLET BY ity of tablet 00:00: MOUTH [place] EVERY Medical MORNING Branch levothyroxi 2018-0 Yes TAKE 1 Univ ers ne 125 mcg 4-10 TABLET BY ity of tablet 00:00: MOUTH [place] EVERY Medical MORNING Branch levothyroxi 2018-0 Yes TAKE 1 Univ ers ne 125 mcg 4-10 TABLET BY ity of tablet 00:00: MOUTH [place] EVERY Medical MORNING Branch levothyroxi 2018-0 Yes TAKE 1 Univ ers ne 125 mcg 4-10 TABLET BY ity of tablet 00:00: MOUTH [place] EVERY Medical MORNING Branch levothyroxi 2018-0 Yes TAKE 1 Univ ers ne 125 mcg 4-10 TABLET BY ity of tablet 00:00: MOUTH [place] EVERY Medical MORNING Branch levothyroxi 2018-0 Yes [...] TABLET BY ity of tablet 00:00: MOUTH [place] 00 EVERY Medical MORNING Branch clopidogrel 2018-0 Yes TAKE 1 Univ ers 75 mg 2-06 TABLET BY ity of tablet 00:00: MOUTH [place] 00 EVERY Medical MORNING Branch clopidogrel 2018-0 Yes TAKE 1 Univ ers 75 mg 2-06 TABLET BY ity of tablet 00:00: MOUTH [place] 00 EVERY Medical MORNING Branch clopidogrel 2018-0 Yes TAKE 1 Univ ers 75 mg 2-06 TABLET BY ity of tablet 00:00: MOUTH [place] 00 EVERY Medical MORNING Branch clopidogrel 2018-0 Yes TAKE 1 Univ ers 75 mg 2-06 TABLET BY ity of tablet 00:00: MOUTH [place] 00 EVERY Medical MORNING Branch clopidogrel 2018-0 Yes TAKE 1 Univ ers 75 mg 2-06 TABLET BY ity of tablet 00:00: MOUTH [place] 00 EVERY Medical MORNING Branch clopidogrel 2018-0 Yes TAKE 1 Univ ers 75 mg 2-06 TABLET BY ity of tablet 00:00: [facility] 00 EVERY Medical MORNING Branch clopidogrel 2018-0 Yes TAKE 1 Univ ers 75 mg 2-06 TABLET BY ity of tablet 00:00: [facility] 00 EVERY Medical MORNING Branch clopidogrel 2018-0 Yes TAKE 1 Univ ers 75 mg 2-06 TABLET BY ity of tablet 00:00: [facility] 00 EVERY Medical MORNING Branch clopidogrel 2018-0 Yes TAKE 1 Univ ers 75 mg 2-06 TABLET BY ity of tablet 00:00: [facility] 00 EVERY Medical MORNING Branch clopidogrel 2018-0 Yes TAKE 1 Univ ers 75 mg 2-06 TABLET BY ity of tablet 00:00: [facility] 00 EVERY Medical MORNING Branch clopidogrel 2018-0 Yes TAKE 1 Univ ers 75 mg 2-06 TABLET BY ity of tablet 00:00: [facility] 00 EVERY Medical MORNING Branch clopidogrel 2018-0 Yes TAKE 1 Univ ers 75 mg 2-06 TABLET BY ity of tablet 00:00: [facility] 00 EVERY Medical MORNING Branch Vital Signs Vital Name Observation Time Observation Value Comments Source Systolic blood 2022-08-24 15:43:00 135 mm[Hg] Univer sity of pressure [facility] Diastolic blood 2022-08-24 15:43:00 83 mm[Hg] Unive rsity of pressure [facility] Heart rate 2022-08-24 15:43:00 94 /min [facility] Body temperature 2022-08-24 15:43:00 36.83 [place]any Univ ers[facility] [place] [facility] Respiratory rate 2022-08-24 15:43:00 18 /min Univ [facility] [place] [facility] Body height 2022-08-24 15:43:00 170.2 cm [facility] [place] [facility] Body weight 2022-08-24 15:43:00 58.968 kg [facility] [place] [facility] BMI 2022-08-24 15:43:00 20.36 kg/m2 [facility] [place] [facility] Oxygen saturation in 2022-08-24 15:43:00 99 /min University of Arterial blood by [facility] Pulse oximetry Branch Systolic blood 2022-01-08 02:02:00 147 mm[Hg] Univer sity of pressure [place] [facility] Diastolic blood 2022-01-08 02:02:00 78 mm[Hg] Unive rsity of pressure [place] [facility] Heart rate 2022-01-08 02:02:00 78 /min [facility] [place] [facility] Respiratory rate 2022-01-08 02:02:00 18 /min Univ ers[facility] [place] [facility] Oxygen saturation in 2022-01-08 02:02:00 100 /min University of Arterial blood by [facility] Pulse oximetry Branch Body temperature 2022-01-07 23:24:00 37.17 [place]any [facility] [place] [facility] Body weight 2022-01-07 23:24:00 58.968 kg Universi ty [facility] [place] [facility] BMI 2022-01-07 23:24:00 20.36 kg/m2 [facility] [place] [facility] Systolic blood 2022-01-06 20:29:00 140 mm[Hg] Univer sity of pressure [place] [facility] Diastolic blood 2022-01-06 20:29:00 106 mm[Hg] Unive rsity of pressure [place] [facility] Heart rate 2022-01-06 20:29:00 102 /min [facility] [place] [facility] Body temperature 2022-01-06 20:29:00 37.5 [place] [facility] [place] [facility] Respiratory rate 2022-01-06 20:29:00 16 /min Univ [facility] [place] [facility] Body height 2022-01-06 20:29:00 170.2 cm [facility] [place] [facility] Body weight 2022-01-06 20:29:00 58.968 kg [facility] [place] [facility] BMI 2022-01-06 20:29:00 20.36 kg/m2 [facility] [place] [facility] Oxygen saturation in 2022-01-06 20:29:00 99 /min University of Arterial blood by [facility] Pulse oximetry Branch Systolic blood 2021-09-02 01:52:00 132 mm[Hg] Univer sity of pressure [place] [facility] Diastolic blood 2021-09-02 01:52:00 75 mm[Hg] Unive rsity of pressure [place] [facility] Heart rate 2021-09-02 01:52:00 67 /min [facility] [place] [facility] Respiratory rate 2021-09-02 01:52:00 16 /min Univ ers[facility] [place] [facility] Oxygen saturation in 2021-09-02 01:52:00 99 /min University of Arterial blood by [facility] Pulse oximetry Branch Body temperature 2021-09-01 23:57:00 36.17 [place]any [facility] [place] [facility] Body height 2021-09-01 23:57:00 170.2 cm [facility] [place] [facility] Body weight 2021-09-01 23:57:00 58.968 kg [facility] [place] [facility] BMI 2021-09-01 23:57:00 20.36 kg/m2 [facility] [place] [facility] Systolic blood 2021-08-07 15:57:00 165 mm[Hg] Univer sity of pressure [place] [facility] Diastolic blood 2021-08-07 15:57:00 71 mm[Hg] Unive rsity of pressure [place] [facility] Heart rate 2021-08-07 15:57:00 97 /min [facility] [place] [facility] Body temperature 2021-08-07 15:57:00 37.44 Brittany [facility] [place] [facility] Respiratory rate 2021-08-07 15:57:00 18 /min [facility] [place] [facility] Body height 2021-08-07 15:57:00 170.2 cm [facility] [place] [facility] Body weight 2021-08-07 15:57:00 56.7 kg [facility] [place] [facility] BMI 2021-08-07 15:57:00 19.58 kg/m2 [facility] [place] [facility] Oxygen saturation in 2021-08-07 15:57:00 98 /min University of Arterial blood by [place] [facility] hermelindo Pulse oximetry Branch Systolic blood 2021-06-30 01:29:00 132 mm[Hg] Univer sity of pressure [place] [facility] Diastolic blood 2021-06-30 01:29:00 75 mm[Hg] Unive rsity of pressure [place] [facility] Heart rate 2021-06-30 01:29:00 75 /min [facility] [place] [facility] Respiratory rate 2021-06-30 01:29:00 18 /min [facility] [place] [facility] Oxygen saturation in 2021-06-30 01:29:00 100 /min University of Arterial blood by [facility] Pulse oximetry Branch Body temperature 2021-06-29 22:01:00 36.67 Brittany [facility] [place] [facility] Body weight 2021-06-29 22:01:00 53.071 kg [facility] [place] [facility] BMI 2021-06-29 22:01:00 18.32 kg/m2 [facility] [place] [facility] Systolic blood 2021-05-20 21:45:00 137 mm[Hg] Univer sity of pressure [place] [facility] Diastolic blood 2021-05-20 21:45:00 75 mm[Hg] Unive rsity of pressure [place] [facility] Heart rate 2021-05-20 21:45:00 75 /min [facility] [place] [facility] Body temperature 2021-05-20 21:45:00 36.5 [place]any [facility] [place] [facility] Respiratory rate 2021-05-20 21:45:00 16 /min [facility] [place] [facility] Oxygen saturation in 2021-05-20 21:45:00 97 /min University of Arterial blood by [facility] Pulse oximetry Branch Body weight 2021-05-20 04:14:00 53.479 kg [facility] BMI 2021-05-20 04:14:00 18.47 kg/m2 [facility] Body height 2021-05-20 03:42:00 170.2 cm [facility] Systolic blood 2020-09-14 03:30:00 147 mm[Hg] [facility] [place] [facility] Diastolic blood 2020-09-14 03:30:00 89 mm[Hg] [facility] [place] [facility] Heart rate 2020-09-14 03:30:00 73 /min [facility] Respiratory rate 2020-09-14 03:30:00 19 /min [facility] [place] [facility] Oxygen saturation in 2020-09-14 03:30:00 97 /min [facility] of Arterial blood by [facility] hermelindo Pulse oximetry Branch Body temperature 2020-09-14 02:10:00 36.5 Brittany [facility] [place] [facility] Body height 2020-09-14 02:09:00 170.2 cm [facility] Body weight 2020-09-14 02:09:00 61.236 kg [facility] BMI 2020-09-14 02:09:00 21.14 kg/m2 [facility] [place] [facility] Systolic blood 2020-09-14 03:30:00 147 mm[Hg] [facility] [place] [facility] Diastolic blood 2020-09-14 03:30:00 89 mm[Hg] [facility] [place] [facility] Heart rate 2020-09-14 03:30:00 73 /min [facility] Respiratory rate 2020-09-14 03:30:00 19 /min [facility] [place] [facility] Oxygen saturation in 2020-09-14 03:30:00 97 /min [facility] of Arterial blood by [facility] Pulse oximetry Branch Body temperature 2020-09-14 02:10:00 36.5 Brittany [facility] [place] [facility] Body height 2020-09-14 02:09:00 170.2 cm [facility] Body weight 2020-09-14 02:09:00 61.236 kg [facility] BMI 2020-09-14 02:09:00 21.14 kg/m2 [facility] Heart rate 2019-07-28 01:36:00 70 /min [facility] [place] [facility] Respiratory rate 2019-07-28 01:36:00 18 /min [facility] [place] [facility] Oxygen saturation in 2019-07-28 01:24:00 98 /min [facility]ial blood by [place] [facility] hermelindo Pulse oximetry Branch Systolic blood 2019-07-28 01:00:00 143 mm[Hg] [facility] [place] [facility] Diastolic blood 2019-07-28 01:00:00 74 mm[Hg] [facility] [place] [facility] Body temperature 2019-07-28 00:05:00 36.56 Brittany [facility] [place] [facility] Body height 2019-07-28 00:05:00 170.2 cm [facility] [place] [facility] Body weight 2019-07-28 00:05:00 68.04 kg [facility] [place] [facility] BMI 2019-07-28 00:05:00 23.49 kg/m2 [facility] [place] [facility] Heart rate 2019-07-28 01:36:00 70 /min [facility] [place] [facility] Respiratory rate 2019-07-28 01:36:00 18 /min [facility] [place] [facility] Oxygen saturation in 2019-07-28 01:24:00 98 /min [facility] of Arterial blood by [facility] Pulse oximetry Branch Systolic blood 2019-07-28 01:00:00 143 mm[Hg] [facility] [place] [facility] Diastolic blood 2019-07-28 01:00:00 74 mm[Hg] [facility] [place] [facility] Body temperature 2019-07-28 00:05:00 36.56 Brittany [facility] [place] [facility] Body height 2019-07-28 00:05:00 170.2 cm [facility] [place] [facility] Body weight 2019-07-28 00:05:00 68.04 kg [facility] [place] [facility] BMI 2019-07-28 00:05:00 23.49 kg/m2 [facility] [place] [facility] Systolic blood 2019-03-11 21:00:00 141 mm[Hg] [facility] [place] [facility] Diastolic blood 2019-03-11 21:00:00 66 mm[Hg] [facility] [place] [facility] Heart rate 2019-03-11 21:00:00 97 /min [facility] [place] [facility] Respiratory rate 2019-03-11 21:00:00 18 /min [facility] [place] [facility] Oxygen saturation in 2019-03-11 21:00:00 97 /min [facility] Arterial blood by [facility] Pulse oximetry Branch Body temperature 2019-03-11 19:13:00 36.06 Brittany [facility] [place] [facility] Body weight 2019-03-11 19:12:00 [facility]04 [facility] BMI 2019-03-11 19:12:00 23.49 kg/m2 [facility] Systolic blood 2019-03-11 21:00:00 141 mm[facility]Hg[facility] Diastolic blood 2019-03-11 21:00:00 66 mm[Hg] [facility] Heart rate 2019-03-11 21:00:00 97 /min [facility] Respiratory rate 2019-03-11 21:00:00 18 /min [facility] Oxygen saturation in 2019-03-11 21:00:00 97 /min [facility] Arterial blood by [facility] Pulse oximetry [place] Body temperature 2019-03-11 19:13:00 36.06 Brittany [facility] Body weight 2019-03-11 19:12:00 68.04 kg [facility] BMI 2019-03-11 19:12:00 23.49 kg/m2 [facility] Procedures Procedure Date / Time Performing Clinician Source Performed POCT SARS-COV-2 ANTIGEN 2022-08-24 15:52:00 Susan Lee [facility] (BINAX NOW) [facility] POCT MOLECULAR FLU 2022-08-24 15:51:00 Unknown, Attending [facility] ASSIGNMENT OF BENEFITS 2022-08-24 15:38:07 Doctor Unassigned, No [facility] Name [facility] XR CHEST 1 VW 2022-01-08 00:24:42 Alex O[facility]nell [facility] RAPID STREP SCREEN FOR 2022-01-06 20:47:00 [facility] Medical Branch COVID-19 (ID NOW RAPID 2022-01-06 20:47:00 Sher[facility] Medical Branch CONSENT/REFUSAL FOR 2022-01-06 20:26:18 Doctor Unassigned, No [facility] DIAGNOSIS AND TREATMENT Name [facility] RAPID INFLUENZA A/B 2021-09-02 00:47:00 Cameron Dalton [facility] COVID-19 (ID NOW RAPID 2021-09-02 00:47:00 Cameron Dalton [facility] TESTING) Medical Branch XR CHEST 2 VW 2021-09-02 00:27:31 [facility] FOR 2021-09-01 23:46:25 Doctor Unassigned, No [facility] Name Medical Branch XR CHEST 2 VW 2021-08-07 16:43:01 Darius Ledesma [facility] CONSENT/REFUSAL FOR 2021-08-07 15:37:28 Doctor Unassigned, No [facility] Name [facility] Branch CT ABDOMEN PELVIS W 2021-06-29 23:11:24 Jose Alejandro Castano [facility] CONTRAST Medical Branch LIPASE 2021-06-29 22:18[facility] 2021-06-29 22:18:00 [facility] COMP. METABOLIC PANEL 2021-06-29 22:18:00 Omaira [facility] ([id number]) Medical Branch CBC WITH DIFF 2021-06-29 22:18:00 [facility] URINALYSIS 2021-06-29 22:18:00 [facility] CONSENT/REFUSAL FOR 2021-06-29 21:50:47 Doctor Unassigned, No [facility] POCT GLUCOSE (AUTOMATED) 2021-05-20 17:30:00 [facility] HB ECG ROUTINE & RHYTHM 2021-05-20 15:36:46 Sami Caceres [facility] STRIP [facility] TRANSTHORACIC ECHO (TTE) 2021-05-20 15:19:52 [facility] COMPLETE [facility] TROPONIN I 2021-05-20 11:04:00 Esther [facility] BASIC METABOLIC PANEL 2021-05-20 11:04:[facility] ([facility], K, CL, CO2, Medical Branch GLUCOSE, BUN, CREATININE, CA) CBC WITH DIFF 2021-05-20 11:04:00 Marcelina Che [facility] TROPONIN I 2021-05-20 01:56:00 Neida Irving [facility] XR CHEST 1 VW 2021-05-20 00:01:05 Neida Irving [facility] LIPASE 2021-05-19 23:49:00 Neida Irving [facility] MAGNESIUM 2021-05-19 23:49:00 Neida Irving [facility] TROPONIN I 2021-05-19 23:49:00 Neida Irving [facility] COMP. METABOLIC PANEL 2021-05-19 23:49:00 Neida Irving [facility] ([id number]) [facility] CBC WITH DIFF 2021-05-19 23:49:00 Neida Irving [facility] PROTHROMBIN TIME / INR 2021-05-19 23:49:00 [facility]ida [facility] ACTIVATED PARTIAL 2021-05-19 23:49:00 Neida Irving [facility] THRMPLAS [facility] COVID-19 (ID NOW RAPID 2021-05-19 23:49:00 Neida [facility] TESTING) [facility] CONSENT/REFUSAL FOR 2021-05-19 23:01:42 Doctor Unassigned, No [facility] DIAGNOSIS AND TREATMENT Name Medical Branch URINALYSIS 2020-09-14 02:42:[address] [facility] XR CHEST 1 VW 2020-09-14 02:30:[address] [facility] LIPASE 2020-09-14 02:21:[address] [facility] TROPONIN I 2020-09-14 02:21:[address] [facility] HEPATIC FUNCTION PANEL 2020-09-14 02:21:00 Diana Berg [facility] ([id number]) (ALB,T.PRO,BILI Medical Branch T,BU/BC,ALT,AST,ALK PHOS) BASIC METABOLIC PANEL 2020-09-14 02:21:00 Diana Berg [facility] [place] (NA, K, CL, CO2, Medical Branch GLUCOSE, BUN, CREATININE, CA) CBC WITH DIFF 2020-09-14 02:21:[address] [facility] N-TERMINAL PRO-BNP 2020-09-14 02:21:00 Diana Berg [facility] sity [facility] [place] COVID-19 (ID NOW RAPID 2020-09-14 02:21:00 Diana Berg [facility] [place] [facility] Medical Branch NOTICE OF PRIVACY 2020-09-14 02:00:22 Doctor Unassigned, No [facility] CONSENT/REFUSAL FOR 2020-09-14 01:58:28 Doctor Unassigned, No [facility] [place] DIAGNOSIS AND TREATMENT Name [facility] HEPATIC FUNCTION PANEL 2019-07-28 00:55:00 Mariangel Ortega [facility] [place] ([id number]) (ALB,T.PRO,BILI Medical Branch T,BU/BC,ALT,AST,ALK PHOS) BASIC METABOLIC PANEL 2019-07-28 00:55:00 Mariangel Ortega [facility] [place] (NA, K, CL, CO2, Medical Branch GLUCOSE, BUN, CREATININE, CA) CBC WITH DIFFERENTIAL 2019-07-28 00:55:00 Mariangel Ortega Un iversity of [facility] RAPID STREP SCREEN FOR 2019-07-28 00:55:00 Mariangel [facility] ADC,CLC OR LCC ONLY - 2019-07-28 00:55:00 Mariangel Ortega [facility] [place] INFLUENZA A & B DIRECT Medical B ranch ANTIGEN CBC WITH DIFFERENTIAL 2019-07-28 00:55:00 Mariangel Ortega Un iversity of [facility] XR CHEST 2 VW 2019-07-28 00:28:40 Mariangel [facility] CONSENT/REFUSAL FOR 2019-07-27 23:47:18 Doctor Unassigned, No [facility] [place] DIAGNOSIS AND TREATMENT Name Medical Branch LIPASE 2019-03-11 19:53:00 Sherrill Connor Sabin o f [facility] HEPATIC FUNCTION PANEL 2019-03-11 19:53:00 Sherrill [facility] ([id number]) (ALB,T.PRO,BILI [facility] T,BU/BC,ALT,AST,ALK PHOS) BASIC METABOLIC PANEL 2019-03-11 19:53:00 Sherrill Connor [facility] (NA, K, CL, CO2, [facility] GLUCOSE, BUN, CREATININE, CA) CBC WITH DIFFERENTIAL 2019-03-11 19:53:00 Sherrill Connor [facility] PROTHROMBIN TIME / INR 2019-03-11 19:53:00 Sherrill Connor [facility] ACTIVATED PARTIAL 2019-03-11 19:53:00 Sherrill Connor [facility] THRMPLAS [facility] NOTICE OF PRIVACY 2019-03-11 18:56:54 Doctor Unassigned, No [facility] PRACTICES Name [facility] Encounters Start End Encounter Admission Attending Care Care Encounter Source Date/Time Date/Time Type Type Clinicians Facility Department ID 2021-05-06 Emergency [facility] [id number] Univers 05:05:[address] [facility] 2022-08-24 2022-08-24 Urgent Susan Lee [facility] [id number] Univers 09:40:00 10:00:00 Care Unknown, Attending HEALTH [id number] ity [facility] [id number] Amandeep as JOCELYN?BLEA [id number] Oh lennie [address] MEDICAL OFFICE BUILDING 2022-08-24 2022-08-24 Outpatient R TAM[facility]KO [facility] [id number] Univers 09:40:00 09:40:00 SUSAN ity of [facility] 2022-08-24 2022-08-24 Orders Doctor SUSHIL [id number] Univers 00:00:00 00:00:00 Only Unassigned, KIRK [id number] [facility] [id number] Amandeep as [phone] [address] 2022-01-11 2022-01-11 Laboratory Only, Ang Db Test [facility] 1.2.8 40.114 [id number] Univers 13:15:00 13:30:00 Only Monik Charles [facility] [id number] it[facility] [id number] Amandeep as JOCELYN?BLEA [id number] [address] MEDICAL OFFICE BUILDING 2022-01-11 2022-01-11 [facility] [id number] Univers 13:15:00 13:24:[address] [facility] [place] 2022-01-07 2022-01-07 [facility] ERT [id number] Univers 18:26:00 21:08:[address] [facility] [place] 2022-01-07 2022-01-07 Emergency [place], [facility] [id number] Univers 18:26:00 21:08:00 Alex DENNISON [id number] ity of [place] [facility] 4.2.7.2.686 [facility] [id number] [address] 2022-01-06 2022-01-06 Emergency X [facility] ERT [id number] Univers 15:31:00 16:32:00 SHERRILL [facility] 2022-01-06 2022-01-06 [facility] [id number] Univers 15:31:00 16:32:00 Sherrill DENNISON [id number] i ty of [place] 4.2.7.2.686 [facility] [id number] [address] 2021-09-01 2021-09-01 Emergency X [facility] ERT [id number] Univers 17:59:00 19:56:[address] [facility] [place] 2021-09-01 2021-09-01 Emergency [facility] 1.2.840.114 [id number] Univers 17:59:00 19:56:00 Cameron DENNISON [id number] i ty of [place] [facility] 4.2.7.2.686 [facility] [id number] [address] 2021-09-01 2021-09-01 Orders Doctor SUSHIL 1.2.840.114 [id number] Univers 00:00:00 00:00:00 Only Unassigned, KIRK [id number] ity of [place] [facility] 4.2.7.2.686 Amandeep as [id number] [facility] [address] [place] 2021-08-08 2021-08-08 SUSHIL Coe 1.2.840.114 [id number] Univers 00:00:00 00:00:00 (Out) Nirmala Ballard KIRK [id number] it y of HOSPITAL 4.2.7.2.686 Amandeep as [id number] [facility] 019 Branch 2021-08-07 2021-08-07 Emergency X [facility] ERT [id number] Univers 09:58:00 11:43:[address] [facility] [place] 2021-08-07 2021-08-07 Emergency [facility] [id number] Univers 09:58:00 11:43:00 Darius DENNISON [id number] i ty of [place] 4.2.7.2.686 [facility] [id number] [address] 2021-08-07 2021-08-07 Orders Doctor SUSHIL 1.2.840.114 [id number] Univers 00:00:00 00:00:00 Only Unassigned, KIRK [id number] ity of [place] [facility] 4.2.7.2.686 Amandeep as [id number] [address] 2021-06-29 2021-06-29 Emergency X [facility] ERT [id number] Univers 16:04:00 19:33:00 [facility]ANC[facility]CA [facility] 2021-06-29 2021-06-29 [facility] 1.2.840.114 [id number] Univers 16:04:00 19:33:00 Jose Alejandro DENNISON 350.1.13.10 i ty of [place] 4.2.7.2.686 [facility] [id number] [address] 2021-05-19 2021-05-20 Outpatient X [facility] YE[facility] [id number] Univers 17:04:00 17:03:[address] [facility] [place] 2021-05-19 2021-05-20 Emergency Neida Irving [facility] 1.2.840. 114 [id number] Univers 17:04:00 17:03:00 Marcelina Che 350.1.13.10 ity of [place] 4.2.7.2.686 [facility] [id number] [address] 2020-09-16 2020-09-16 Outpatient R [facility]IS [facility] [id number] Univers 10:20:00 10:20:[address] [facility] [place] 2020-09-16 2020-09-16 Laboratory Lab, [facility] 1.2.840.114 [id number] 09:44:15 10:04:15 Only Fam Pob I Health [id number] [place] 4.2.7.2.686 Professio [phone] [place] [address] Office [facility] 2020-09-16 2020-09-16 Laboratory Lab, [facility] Fam Pob I [facility] 1.2. 840.114 [id number] Univers 09:44:15 10:04:15 Only Nicole Issa 350.1.13.10 ity of [place] 4.2.7.2.686 Amandeep as Professio [phone] Oh dical [address] Office [facility] 2020-09-13 2020-09-13 [facility] 1.2.840.114 [id number] 20:05:00 22:24:00 Diana Dennison 350.1.13.10 [place] 4.2.7.2.686 [place] [id number] [facility] 2020-09-13 2020-09-13 [facility] 1.2.840.114 [id number] Univers 20:05:00 22:24:00 Diana Dennison 350.1.13.10 ity of [place] 4.2.7.2.686 [facility] [id number] [address] 2019-07-27 2019-07-27 Emergency Shannon [facility] 1.2.840.114 [id number] 18:07:12 20:13:00 Mariangel Dennison 350.1.13.10 [place] 4.2.7.2.686 [place] [id number] 2019-07-27 2019-07-27 Emergency Shannon [facility] 1.2.840.114 [id number] [facility] 18:07:12 20:13:00 Mariangel Dennison 350.1.13.10 ity of [place] 4.2.7.2.686 [facility] [id number] [address] 2019-07-27 2019-07-27 Orders Doctor SUSHIL 1.2.840.114 [id number] 00:00:00 00:00:00 Only Unassigned, KIRK 350.1.13.10 [place] [facility] 4.2.7.2.68 [id number] 2019-07-27 2019-07-27 Orders Doctor SUSHIL 1.2.840.114 [id number] Univers 00:00:00 00:00:00 Only Unassigned, KIRK 350.1.13.10 ity of [place] [facility] 4.[address] [place] [id number] 2019-03-11 2019-03-11 [facility] [id number] 14:05:54 16:45:00 Sherrill Dennison 350.1.13.10 [place] 4.2.7.2.686 [place] [id number] [facility] 2019-03-11 2019-03-11 [facility] [id number] [facility] 14:05:54 16:45:00 Sherrill Dennison 350.1.13.10 i ty of [place] 4.2.7.2.686 [facility] [id number] [address] Results Test Description Test Time Test Comments Results Result Comments Source POCT MOLECULAR FLU 2022-08-24 16:02:31 Test Item Value Reference Range Interpretation Comme nts POCT Molecular FluA (test code = 56756-5) Negative Negative POCT Molecular FluB (test code = 45958-3) Negative Negative Lab Interpretation (test code = 70954-1) Normal [facility] ANTIGEN (BINAX NOW)2022-08-24 15:52:00 Test Item Value Reference Range Interpretation Comments POCT SARS-COV-2 ANTIGEN (test Not Detected Not Detected code = 91611-7) On board controls acceptable Yes with C Line (test code = 3574) Lab Interpretation (test code = Normal 64752-3) [facility] METABOLIC PANEL ([id number])2021-06-29 23:10:56 Test Item Value Reference Range Interpretation Comments NA (test code = 137 mmol/L 135-145 1345033940) K (test code = 3.9 mmol/L 3.5-5.0 7405301435) CL (test code = 102 mmol/L 98-108 5372861065) CO2 TOTAL (test code = 27 mmol/L 23-31 3145718873) AGAP (test code = 2-16 4283057400) BUN (test code = 10 mg/dL 7-23 7355799449) GLUCOSE (test code = 137 mg/dL 70-110 H 5001872805) CREATININE (test code = 0.69 mg/dL 0.50-1.04 5977779211) TOTAL BILI (test code = 0.5 mg/dL 0.1-1.8 9803220778) CALCIUM (test code = 9.2 mg/dL 8.6-10.6 1244179750) T PROTEIN (test code = 7.7 g/dL 6.3-8.2 5962228519) ALBUMIN (test code = 4.9 g/dL 3.5-5.0 5299469437) ALK PHOS (test code = 73 U/L 34-122 2346801227) ALTv (test code = 15 U/L 5-35 1742-6) AST(SGOT) (test code = 21 U/L 13-40 8377370523) eGFR (test code = mL/min/1.73m2 8158787717) MADISYN (test code = MADISYN) Association of [...] tests). Lab Interpretation Abnormal (test code = 65518-2) [facility] [id number] 22:59:27 Test Item Value Reference Interpretation Comments Range TROPONIN I (test 0.001 ng/mL See_Comment [Automated code = 5250384360) message] The system which generated this result [...] biotin. Lab Interpretation Normal (test code = 83660-6) [facility]2021-[facility]-24 22:49:29 Test Item Value Reference Range Interpretation Comments LIPASE (test code = 6731889480) 57 U/L 0-220 Lab Interpretation (test code = Normal 75373-1) [facility] Center[facility] WITH [id number] 22:29:28 Test Item Value Reference Range Interpretation [...] RDW-SD (test code = 43.4 fL 39.0-49.9 31794-1) RDW-CV (test code = 12.7 % 12.0-15.5 788-0) PLT (test code = See_Comment [Automated 777-3) message] The sy stem which generated this result transmitted reference range : 166 - 358 10*3/ ?L. The reference r aiden was not used to interpret this result as normal/abnormal . MPV (test code = 10.7 fL 9.5-12.9 23429-7) NRBC/100 WBC (test See_Comment [Automat ed code = 8614179297) message] The system which generated this result transmitted reference range : 0.0 - 10.0 /100 WBCs. The refer ence range was not u sed to interpret th is result as normal/abnormal . NRBC x10^3 (test code <0.01 See_Comment [Auto mated = 4338811873) message] The s ystem which generated this result transmitted reference range : 10*3/?L. The reference range was not used to interpret this result as normal/abnormal . GRAN MAT (NEUT) % 68.6 % (test code = 770-8) IMM GRAN % (test code 0.40 % = 9260321482) LYMPH % (test code = 22.9 % 736-9) MONO % (test code = 6.3 % 5905-5) EOS % (test code = 1.6 % 713-8) BASO % (test code = 0.2 % 706-2) GRAN MAT x10^3(ANC) 6.89 10*3/uL 1.88-7.09 (test code = 7979036694) IMM GRAN x10^3 (test 0.04 10*3/uL 0.00-0.06 code = 1867775006) LYMPH x10^3 (test code 2.30 10*3/uL 1.32-3.29 = 731-0) MONO x10^3 (test code 0.63 10*3/uL 0.33-0.92 = 742-7) EOS x10^3 (test code = 0.16 10*3/uL 0.03-0.39 711-2) BASO x10^3 (test code <0.03 0.01-0.07 = 704-7) Lab Interpretation Abnormal (test code = 39467-5) [facility] (AUTOMATED)2021-05-20 17:33:00 Test Item Value Reference Range Interpretation Comments POCT GLU (test code = 7449135975) 80 mg/dL 70-110 Lab Interpretation (test code = Normal 46853-2) [facility] CenterTR[facility] [id number] 12:36:17 Test Item Value Reference Interpretation Comments Range TROPONIN I (test 0.002 ng/mL See_Comment [Automated code = 9335387158) message] The system which generated this result [...] biotin. Lab Interpretation Normal (test code = 81357-2) [facility] Metabolic Panel (NA, K, CL, CO2, GLUCOSE, BUN, CREATININE, CA)2021-05-20 12:31:20 Test Item Value Reference Range Interpretation Comments NA (test code = 138 mmol/L 135-145 9619101705) K (test code = 4.2 mmol/L 3.5-5.0 7583853024) CL (test code = 106 mmol/L 98-108 1242299201) CO2 TOTAL (test code = 25 mmol/L 23-31 7521985940) AGAP (test code = 2-16 8077337042) BUN (test code = 12 mg/dL 7-23 4462480710) GLUCOSE (test code = 146 mg/dL 70-110 H 3637074852) CREATININE (test code = 0.62 mg/dL 0.50-1.04 8428063220) CALCIUM (test code = 10.0 mg/dL 8.6-10.6 7590095607) eGFR (test code = mL/min/1.73m2 1920889437) MADISYN (test code = MADISYN) Association of [...] tests). Lab Interpretation Abnormal (test code = 45595-9) [facility] with [id number] 11:49:32 Test Item Value Reference Range Interpretation Comments WBC (test code = See_Comment [Automated 4792-2) message] The sy stem which generated this result transmitted reference range : 4.30 - 11.10 10*3/?L. The reference range was not used to interpret this result as normal/abnormal . RBC (test code = See_Comment L [Automated 759-8) message] The sy stem which generated this [...] RDW-SD (test code = 40.3 fL 39.0-49.9 67541-4) RDW-CV (test code = 11.9 % 12.0-15.5 L 788-0) PLT (test code = See_Comment [Automated 827-3) message] The sy stem which generated this result transmitted reference range : 166 - 358 10*3/ ?L. The reference r aiden was not used to interpret this result as normal/abnormal . MPV (test code = 11.3 fL 9.5-12.9 34810-3) NRBC/100 WBC (test See_Comment [Automat ed code = 0042735282) message] The system which generated this result transmitted reference range : 0.0 - 10.0 /100 WBCs. The refer ence range was not u sed to interpret th is result as normal/abnormal . NRBC x10^3 (test code <0.01 See_Comment [Auto mated = 0773631671) message] The s ystem which generated this result transmitted reference range : 10*3/?L. The reference range was not used to interpret this result as normal/abnormal . GRAN MAT (NEUT) % 59.9 % (test code = 770-8) IMM GRAN % (test code 0.50 % = 4450079983) LYMPH % (test code = 30.0 % 736-9) MONO % (test code = 6.4 % 5905-5) EOS % (test code = 2.9 % 713-8) BASO % (test code = 0.3 % 706-2) GRAN MAT x10^3(ANC) 3.72 10*3/uL 1.88-7.09 (test code = 3179405383) IMM GRAN x10^3 (test 0.03 10*3/uL 0.00-0.06 code = 1845419647) LYMPH x10^3 (test code 1.86 10*3/uL 1.32-3.29 = 731-0) MONO x10^3 (test code 0.40 10*3/uL 0.33-0.92 = 742-7) EOS x10^3 (test code = 0.18 10*3/uL 0.03-0.39 711-2) BASO x10^3 (test code <0.03 0.01-0.07 = 704-7) Lab Interpretation Abnormal (test code = 86281-6) [facility] CenterMART[facility] [id number] 02:24:28 Test Item Value Reference Interpretation Comments Range TROPONIN I (test 0.003 ng/mL See_Comment [Automated code = 7600771777) message] The system which generated this result [...] biotin. Lab Interpretation Normal (test code = 63883-6) [facility] CenterMAGNESIUM2021-11-14 00:25:00 Test Item Value Reference Range Interpretation Comments MAGNESIUM (test code = 2401907746) 1.9 mg/dL 1.7-2.4 Lab Interpretation (test code = Normal 15381-9) [facility] CenterTROPONIN [id number] 00:20:03 Test Item Value Reference Interpretation Comments Range TROPONIN I (test 0.002 ng/mL See_Comment [Automated code = 6698154320) message] The system which generated this result [...] biotin. Lab Interpretation Normal (test code = 39859-3) [facility]. METABOLIC PANEL (96642)2021-05-20 00:09:00 Test Item Value Reference Range Interpretation Comments NA (test code = 139 mmol/L 135-145 2158390444) K (test code = 3.9 mmol/L 3.5-5.0 0799144872) CL (test code = 101 mmol/L 98-108 2260085327) CO2 TOTAL (test code = 28 mmol/L 23-31 3494709476) AGAP (test code = 2-16 0781612768) BUN (test code = 13 mg/dL 7-23 8075781205) GLUCOSE (test code = 143 mg/dL 70-110 H 3267238196) CREATININE (test code = 0.68 mg/dL 0.50-1.04 9716428638) TOTAL BILI (test code = 0.4 mg/dL 0.1-1.4 6578949506) CALCIUM (test code = 10.4 mg/dL 8.6-10.6 9721517291) T PROTEIN (test code = 8.0 g/dL 6.3-8.2 7167250247) ALBUMIN (test code = 5.0 g/dL 3.5-5.0 0443646047) ALK PHOS (test code = 93 U/L 34-122 0372206148) ALTv (test code = 21 U/L 5-35 1742-6) AST(SGOT) (test code = 31 U/L 13-40 6145766415) eGFR (test code = mL/min/1.73m2 6271818838) MADISYN (test code = MADISYN) Association of [...] tests). Lab Interpretation Abnormal (test code = 30930-9) [facility] CenterLIP[facility]2021-[facility] 00:08:20 Test Item Value Reference Range Interpretation Comments LIPASE (test code = 8763440307) 66 U/L 0-220 Lab Interpretation (test code = Normal 02596-5) [facility] CenteraPTT2021-11-14 00:06:19 Test Item Value Reference Range Interpretation Comments APTT Patient (test See_Comment [Automat ed code = 3173-2) message] The system which generated this result transmitted reference range : 23 - 38 Seconds . The reference range was not used to interpr et this result as normal/abnormal . MADISYN (test code = MADISYN) The [facility] patient population mean normal value for aPTT is 30 seconds. Lab Interpretation Normal (test code = 60217-8) [facility] CenterPROTHROMBIN TIME / [id number] 00:04:19 Test Item Value Reference Range Interpretation [...] tions. Lab Interpretation (test Normal code = 89749-2) [facility] CenterCB WITH [id number] 23:55:39 Test Item Value Reference Range Interpretation [...] RDW-SD (test code = 40.4 fL 39.0-49.9 76515-4) RDW-CV (test code = 11.9 % 12.0-15.5 L 788-0) PLT (test code = See_Comment [Automated 777-3) message] The sy stem which generated this result transmitted reference range : 166 - 358 10*3/ ?L. The reference r aiden was not used to interpret this result as normal/abnormal . MPV (test code = 11.0 fL 9.5-12.9 42024-5) NRBC/100 WBC (test See_Comment [Automat ed code = 2264290712) message] The system which generated this result transmitted reference range : 0.0 - 10.0 /100 WBCs. The refer ence range was not u sed to interpret th is result as normal/abnormal . NRBC x10^3 (test code <0.01 See_Comment [Auto mated = 6495348353) message] The s ystem which generated this result transmitted reference range : 10*3/?L. The reference range was not used to interpret this result as normal/abnormal . GRAN MAT (NEUT) % 53.4 % (test code = 770-8) IMM GRAN % (test code 0.60 % = 7285180279) LYMPH % (test code = 36.2 % 736-9) MONO % (test code = 6.4 % 5905-5) EOS % (test code = 3.3 % 713-8) BASO % (test code = 0.1 % 706-2) GRAN MAT x10^3(ANC) 3.58 10*3/uL 1.88-7.09 (test code = 1976240814) IMM GRAN x10^3 (test 0.04 10*3/uL 0.00-0.06 code = 1767645284) LYMPH x10^3 (test code 2.43 10*3/uL 1.32-3.29 = 731-0) MONO x10^3 (test code 0.43 10*3/uL 0.33-0.92 = 742-7) EOS x10^3 (test code = 0.22 10*3/uL 0.03-0.39 711-2) BASO x10^3 (test code <0.03 0.01-0.07 = 704-7) Lab Interpretation Abnormal (test code = 56388-0) [facility] CenterUrinalysis2021-03-11 03:27:11 Test Item Value Reference Range Interpretation Comments APPEARANCE (test code = Clear Clear 5038150444) COLOR (test code = Straw Yellow A 1040864926) PH (test code = 4.8-8.0 6102393080) SP GRAVITY (test code = 1.003-1.030 9231268563) GLU U QUAL (test code = 500 mg/dL Normal A 4208847630) BLOOD (test code = Negative Negative 1030800390) KETONES (test code = Negative Negative 9375769812) PROTEIN (test code = Negative Negative 2887-8) UROBILIN (test code = Normal Normal 5084916618) BILIRUBIN (test code = Negative Negative 8367360647) NITRITE (test code = Negative Negative 5736442144) LEUK KEVEN (test code = 25/uL Negative A 9083072579) RBC/HPF (test code = See_Comment [Autom ated message] 2264868518) The system [employer] generated this result transmit zoila reference range : 0 - 3 HPF. The refe rence range was not u sed to interpret th is result as normal/abnormal . WBC/HPF (test code = See_Comment [Autom ated message] 9554658141) The system [employer] generated this result transmit zoila reference range : 0 - 5 HPF. The refe rence range was not u sed to interpret th is result as normal/abnormal . BACTERIA (test code = Negative Negative 7993376103) MUCOUS (test code = Slight Negative LPF A 1073736523) SQ EPITH (test code = HPF 9465442023) Lab Interpretation (test Abnormal code = 21689-0) [facility] CenterTroponin [id number] 03:00:28 Test Item Value Reference Range Interpretation Comments TROPONIN I (test <0.012 See_Comment [Automated code = 9717386400) message] The system which generated this result [...] ? Lab Interpretation Normal (test code = 48605-3) [facility] CenterN-TERMINAL [id number] 02:57:10 Test Item Value Reference Range Interpretation Comments NT-proBNP (test code 25 pg/mL See_Comment [Autom ated = 4037029258) message] The system which generated this result transmitted reference range : <=125. The reference range was not used to interpret this result as normal/abnormal . MADISYN (test code = MADISYN) Biotin has been reported to cause a negative bias, interpret results relative to patient's use of biotin. Lab Interpretation Normal (test code = 48030-8) [facility] Metabolic Panel (NA, K, CL, CO2, GLUCOSE, BUN, CREATININE, CA)2020-09-14 02:48:49 Test Item Value Reference Range Interpretation Comments NA (test code = 135 mmol/L 135-145 4887856718) K (test code = 3.6 mmol/L 3.5-5.0 0620913777) CL (test code = 101 mmol/L 98-108 9847339025) CO2 TOTAL (test code = 23 mmol/L 23-31 3483125353) AGAP (test code = 2-16 8367016748) BUN (test code = 10 mg/dL 7-23 9443451954) GLUCOSE (test code = 296 mg/dL 70-110 H 1164987433) CREATININE (test code = 0.62 mg/dL 0.50-1.04 8360848685) CALCIUM (test code = 9.7 mg/dL 8.6-10.6 8847028143) eGFR Calculation mL/min/1.73m2 (Non-) (test code = 6709952082) eGFR Calculation mL/min/1.73m2 () (test code = 6080491950) MADISYN (test code = MADISYN) Association of [...] tests). Lab Interpretation Abnormal (test code = 12349-6) [facility] CenterHepatic Function Panel (ALB, T.PRO, BILI T, BU/BC, ALT, AST, ALK PHOS)2020-09-14 02:48:48 Test Item Value Reference Range Interpretation Comments TOTAL BILI (test code = 3245605522) 0.4 mg/dL 0.1-1.1 BILI UNCON (test code = 2158185681) 0.4 mg/dL 0.1-1.1 BILI CONJ (test code = 9211646730) 0.0 mg/dL 0.0-0.3 T PROTEIN (test code = 6974434122) 7.7 g/dL 6.3-8.2 ALBUMIN (test code = 0246359621) 5.0 g/dL 3.5-5.0 ALK PHOS (test code = 0551059879) 78 U/L 34-122 ALTv (test code = 1742-6) 19 U/L 5-35 AST(SGOT) (test code = 2005209269) 25 U/L 13-40 Lab Interpretation (test code = Normal 53887-8) [facility] CenterLipase [id number] 02:48:48 Test Item Value Reference Range Interpretation Comments LIPASE (test code = 1056919807) 38 U/L 0-220 Lab Interpretation (test code = Normal 31576-1) [facility] CenterCOVID-19 (ID NOW RAPID TESTING)2020-09-14 02:36:29 Test Item Value Reference Range Interpretation Comments SARS-CoV-2 Rapid ID NOW Positive Not Detected A (test code = 28068-3) MADISYN (test code = MADISYN) ID NOW COVID-19 Assay is an isothermal nucleic acid amplification test intended for the qualitative detection of nucleic acid from SARS-CoV-2 viral RNA in nasopharyngeal ([employer]) specimens. It is used under Emergency Use [...] indicated. Lab Interpretation Abnormal (test code = 69213-1) [facility] with [id number] 02:30:06 Test Item Value Reference Range Interpretation Comments WBC (test code = See_Comment [Automated message] 6690-2) The system [employer] generated this result transmitted ref erence range: 4.30 - 1 1.10 10*3/?L. The re ference range was not u sed to interpret this result as normal/abnor mal. RBC (test code = See_Comment [Automated message] 789-8) The system [employer] generated this result transmitted ref erence range: [...] RDW-SD (test code 41.8 fL 39.0-49.9 = 10027-7) RDW-CV (test code 12.8 % 12.0-15.5 = 788-0) PLT (test code = See_Comment [Automated message] 777-3) The system whic h generated this result transmitted ref erence range: 166 - 35 8 10*3/?L. The re ference range was not u sed to interpret this result as normal/abnor mal. MPV (test code = 11.2 fL 9.5-12.9 71192-4) NRBC/100 WBC (test See_Comment [Automat ed message] code = 0990107180) The syste m which generated this result transmitted ref erence range: 0.0 - 10 .0 /100 WBCs. The refer ence range was not u sed to interpret this result as normal/abnor mal. NRBC x10^3 (test <0.01 See_Comment [Automated message] code = 6813556171) The syste m which generated this result transmitted ref erence range: 10*3/?L. The reference range was not used to interpr et this result as normal/abnormal . GRAN MAT (NEUT) % 54.0 % (test code = 770-8) IMM GRAN % (test 0.70 % code = 5526703137) LYMPH % (test code 36.2 % = 736-9) MONO % (test code 6.0 % = 5905-5) EOS % (test code = 2.8 % 713-8) BASO % (test code 0.3 % = 706-2) GRAN MAT 3.13 10*3/uL 1.88-7.09 x10^3(ANC) (test code = 6401403305) IMM GRAN x10^3 0.04 10*3/uL 0.00-0.06 (test code = 5555771387) LYMPH x10^3 (test 2.10 10*3/uL 1.32-3.29 code = 731-0) MONO x10^3 (test 0.35 10*3/uL 0.33-0.92 code = 742-7) EOS x10^3 (test 0.16 10*3/uL 0.03-0.39 code = 711-2) BASO x10^3 (test <0.03 0.01-0.07 code = 704-7) [facility] WITH [id number] 01:35:00 Test Item Value Reference Range Interpretation [...] RDW-SD (test code = 40.8 fL 39-49.9 75145-0) RDW-CV (test code = 12.5 % 12-15.5 788-0) PLT (test code = See_Comment [Automated 777-3) message] The sy stem which generated this result transmitted reference range : 166 - 358 10*3/ ?L. The reference r aiden was not used to interpret this result as normal/abnormal . MPV (test code = 11.0 fL 9.5-12.9 25203-4) IPF % (test code = 5.7 % 1.3-7.7 Platelet count 2307974621) measured by fluorescence method. NRBC/100 WBC (test See_Comment [Automat ed code = 1487973708) message] The system which generated this result transmitted reference range : 0.0 - 10.0 /100 WBCs. The refer ence range was not u sed to interpret th is result as normal/abnormal . NRBC x10^3 (test code <0.01 See_Comment [Auto mated = 4832622640) message] The s ystem which generated this result transmitted reference range : 10*3/?L. The reference range was not used to interpret this result as normal/abnormal . GRAN MAT (NEUT) % 60.2 % (test code = 770-8) IMM GRAN % (test code 1.60 % = 6006288963) LYMPH % (test code = 29.4 % 736-9) MONO % (test code = 6.2 % 5905-5) EOS % (test code = 2.3 % 713-8) BASO % (test code = 0.3 % 706-2) GRAN MAT x10^3(ANC) 5.31 10*3/uL 1.88-7.09 (test code = 6212977020) IMM GRAN x10^3 (test 0.14 10*3/uL 0-0.06 H code = 5025059797) LYMPH x10^3 (test code 2.59 10*3/uL 1.32-3.29 = 731-0) MONO x10^3 (test code 0.55 10*3/uL 0.33-0.92 = 742-7) EOS x10^3 (test code = 0.20 10*3/uL 0.03-0.39 711-2) BASO x10^3 (test code 0.03 10*3/uL 0.01-0.07 = 704-7) Lab Interpretation Abnormal (test code = 83489-3) [facility] CenterAD,CLC OR [facility] ONLY - INFLUENZA A & B DIRECT [id number] 01:26:00 Test Item Value Reference Range Interpretation Comments Influenza A (test code = 48869-4) Negative Negative Influenza B (test code = 84689-6) Negative Negative Lab Interpretation (test code = Normal 70719-2) [facility] Metabolic Panel (NA, K, CL, CO2, GLUCOSE, BUN, CREATININE, CA)2019-07-28 01:21:00 Test Item Value Reference Range Interpretation Comments NA (test code = 137 mmol/L 135-145 4125140105) K (test code = 3.8 mmol/L 3.5-5 3808181300) CL (test code = 100 mmol/L 98-108 7856226584) CO2 TOTAL (test code = 24 mmol/L 23-31 5494430727) AGAP (test code = 2-16 3872006059) BUN (test code = 13 mg/dL 7-23 4897325780) GLUCOSE (test code = 245 mg/dL 70-110 H 8782137541) CREATININE (test code = 0.49 mg/dL 0.5-1.04 L 2595793339) CALCIUM (test code = 9.8 mg/dL 8.6-10.6 7945174185) eGFR Calculation mL/min/1.73m2 (Non-) (test code = 2611796881) eGFR Calculation mL/min/1.73m2 () (test code = 4657023392) MADISYN (test code = MADISYN) Association of [...] tests). Lab Interpretation Abnormal (test code = 10153-4) [facility] CenterHepatic Function Panel (ALB, T.PRO, BILI T, BU/BC, ALT, AST, ALK PHOS)2019-07-28 01:21:00 Test Item Value Reference Range Interpretation Comments TOTAL BILI (test code = 6576534625) 0.3 mg/dL 0.1-1.1 BILI UNCON (test code = 4427302598) 0.1 mg/dL 0.1-1.1 BILI CONJ (test code = 0678645038) 0.0 mg/dL 0-0.3 T PROTEIN (test code = 3101387730) 8.2 g/dL 6.3-8.2 ALBUMIN (test code = 9773599397) 5.0 g/dL 3.5-5 ALK PHOS (test code = 6865322766) 121 U/L 34-122 ALTv (test code = 1742-6) 33 U/L 5-35 AST(SGOT) (test code = 0258974921) 30 U/L 13-40 Lab Interpretation (test code = Normal 40365-8) [facility] CenterRAPID STREP SCREEN FOR GROUP [id number] 01:19:00 Test Item Value Reference Range Interpretation Comments Streptococcus pyogenes (group A) Negative Negative antigen (test code = 07371-7) Lab Interpretation (test code = Normal 69713-6) [facility] CenterXR CHEST 2 [id number] 00:53:20Impression: No acute cardiopulmonary changes. Small sized [...] reviewed this study and agree withthe above report.[facility] CenterB[facility] Met[facility] (NA, K, CL, CO2, GLUCOSE, BUN, CREATININE, CA)2019-03-11 20:52:00 Test Item Value Reference Range Interpretation Comments NA (test code = 141 mmol/L 135-145 1360795845) K (test code = 3.6 mmol/L 3.5-5 4243954293) CL (test code = 104 mmol/L 98-108 8154935842) CO2 TOTAL (test code = 24 mmol/L 23-31 6859460633) AGAP (test code = 2-16 9070782853) BUN (test code = 19 mg/dL 7-23 8856884377) GLUCOSE (test code = 161 mg/dL 70-110 H 4376605088) CREATININE (test code = 0.51 mg/dL 0.5-1.04 3039739028) CALCIUM (test code = 9.4 mg/dL 8.6-10.6 6216898246) eGFR Calculation mL/min/1.73m2 (Non-) (test code = 3254984708) eGFR Calculation mL/min/1.73m2 () (test code = 7706746136) MADISYN (test code = MADISYN) Association of [...] tests). Lab Interpretation Abnormal (test code = 99957-9) [facility] CenterHepatic Function Panel (ALB, T.PRO, BILI T, BU/BC, ALT, AST, ALK PHOS)2019-03-11 20:52:00 Test Item Value Reference Range Interpretation Comments TOTAL BILI (test code = 3740381290) 0.6 mg/dL 0.1-1.1 BILI UNCON (test code = 0489854339) 0.5 mg/dL 0.1-1.1 BILI CONJ (test code = 6901506307) 0.0 mg/dL 0-0.3 T PROTEIN (test code = 7109797871) 7.7 g/dL 6.3-8.2 ALBUMIN (test code = 9785076462) 4.9 g/dL 3.5-5 ALK PHOS (test code = 1424412242) 61 U/L 34-122 ALT(SGPT) (test code = 6497818950) 26 U/L 9-51 AST(SGOT) (test code = 6762539456) 28 U/L 13-40 Lab Interpretation (test code = Normal 97456-3) [facility] CenterLipase [id number] 20:52:00 Test Item Value Reference Range Interpretation Comments LIPASE (test code = 8892294189) 22 U/L 0-220 Lab Interpretation (test code = Normal 74273-3) [facility] CenteraPTT2019-09-05 20:40:00 Test Item Value Reference Range Interpretation Comments APTT Patient (test See_Comment L [Automat ed code = 3173-2) message] The system which generated this result transmitted reference range : 23 - 38 Seconds . The reference range was not used to interpr et this result as normal/abnormal . MADISYN (test code = MADISYN) The [facility] patient population mean normal value for aPTT is 30 seconds. Lab Interpretation Abnormal (test code = 19896-5) [facility] CenterProthrombin Time (PT) / [id number] 20:38:00 Test Item Value Reference Range Interpretation [...] tions. Lab Interpretation (test Normal code = 45106-1) [facility] WITH [id number] 20:33:00 Test Item Value Reference Range Interpretation Comments WBC (test code = See_Comment [Automated 2690-2) message] The sy stem which generated this result transmitted reference range : 4.30 - 11.10 10*3/?L. The reference range was not used to interpret this result as normal/abnormal . RBC (test code = See_Comment [Automated 019-8) message] The sy stem which generated this [...] RDW-SD (test code = 44.3 fL 39-49.9 15511-1) RDW-CV (test code = 12.9 % 12-15.5 788-0) PLT (test code = See_Comment [Automated 777-3) message] The sy stem which generated this result transmitted reference range : 166 - 358 10*3/ ?L. The reference r aiden was not used to interpret this result as normal/abnormal . MPV (test code = 10.9 fL 9.5-12.9 65491-6) NRBC/100 WBC (test See_Comment [Automat ed code = 1199930560) message] The system which generated this result transmitted reference range : 0.0 - 10.0 /100 WBCs. The refer ence range was not u sed to interpret th is result as normal/abnormal . NRBC x10^3 (test code <0.01 See_Comment [Auto mated = 4236119437) message] The s ystem which generated this result transmitted reference range : 10*3/?L. The reference range was not used to interpret this result as normal/abnormal . GRAN MAT (NEUT) % 86.3 % (test code = 770-8) IMM GRAN % (test code 0.50 % = 4548759480) LYMPH % (test code = 8.8 % 736-9) MONO % (test code = 4.0 % 5905-5) EOS % (test code = 0.2 % 713-8) BASO % (test code = 0.2 % 706-2) GRAN MAT x10^3(ANC) 8.24 10*3/uL 1.88-7.09 H (test code = 3242636626) IMM GRAN x10^3 (test 0.05 10*3/uL 0-0.06 code = 8613379906) LYMPH x10^3 (test code 0.84 10*3/uL 1.32-3.29 L = 731-0) MONO x10^3 (test code 0.38 10*3/uL 0.33-0.92 = 742-7) EOS x10^3 (test code = <0.03 0.03-0.39 L 711-2) BASO x10^3 (test code <0.03 0.01-0.07 = 704-7) Lab Interpretation Abnormal (test code = 05933-1) [facility]"
[2022-11-30 14:57] LABS: Absolute Lymphocytes (CBC) 1.8 K/uL (0.7-4.9); Lymphocytes % 24.7 % (15.3-44.8); MCV 91.4 fL (80-100); MPV 8.4 fL (7.6-11.3); RBC Red Blood Cell Count 4.16 M/uL (3.86-4.86)
[2022-11-30 15:14] LABS: BUN Blood Urea Nitrogen 11 mg/dL (7-18); Bicarbonate 27 mEq/L (21-32); Glucose Level 181 mg/dL (74-106); Potassium 3.9 mEq/L (3.5-5.1); Sodium Level 133 mEq/L (136-145)
[2022-11-30 15:15] LABS: Glomerular Filtration Rate 74 ml/min (=/>90)
[2022-11-30 15:16] LABS: Troponin High Sensitivity < 3.0 pg/mL (<58.9)
[2022-11-30] MEDS ORDERED: LORazepam 2 MG/ML VIAL ONE (15:23)
--- NOTE | 2022-11-30 15:49 | EDPHYS ---
Physician Documentation [facility] Name: Dolores Pérez Age: 62 yrs Sex: Female : 1960 Arrival Date: 11/30/2022 Time: 13:20 Bed 14 Private MD: ED Physician Feng Tian HPI: 11/30 13:42 This 62 yrs old Female presents to ER via Ambulatory with complaints of Anxiety, jmm Depression. 13:42 This is a 62-year-old female with history of asthma, COPD, diabetes mellitus, jmm hyperlipidemia, hypertension the presents emerged department with complaints of elevated blood pressure and anxiety. Patient is concerned she may be having a heart attack. Denies chest pain. Denies weakness. Patient was recently seen for similar episode. Historical: - Allergies: 13:40 NSAIDS; nj1 13:40 peanuts; nj1 13:40 Prednisone; nj1 13:40 Sulfa (Sulfonamide Antibiotics); nj1 - PMHx: 13:40 Asthma; COPD; diabetes mellitus; High Cholesterol; Hypertension; Hypothyroidism; nj1 Transient cerebral ischemia; - Immunization history:: Client reports receiving the 2nd dose of the Covid vaccine. - Social history:: Smoking status: Patient denies any tobacco usage or history of. ROS: 13:42 Constitutional: Negative for fever, chills, and weight loss, Cardiovascular: Negative jmm for chest pain, palpitations, and edema, Respiratory: Negative for shortness of breath, cough, wheezing, and pleuritic chest pain. 13:42 Psych: Positive for anxiety. 13:42 All other systems are negative. Exam: 13:42 Constitutional: This is a well developed, well nourished patient who is awake, alert, jmm and in no acute distress. Head/Face: atraumatic. Eyes: EOMI, no conjunctival erythema appreciated ENT: Moist Mucus Membranes Neck: Trachea midline, Supple Chest/axilla: Normal chest wall appearance and motion. Cardiovascular: Regular rate and rhythm. No edema appreciated Respiratory: Normal respirations, no respiratory distress appreciated Abdomen/GI: Non distended Back: Normal ROM Skin: General appearance color normal MS/ Extremity: Moves all extremities, no obvious deformities appreciated, no edema noted to the lower extremities Neuro: Awake and alert Psych: Behavior is normal, Mood is normal, Patient is cooperative and pleasant Vital Signs: 13:33 BP 197 / 93; Pulse 86; Resp 18; Temp 98.2(O); Pulse Ox 100% ; Weight 56.7 kg; Height 5 nj1 ft. 7 in. ; Pain 0/10; 15:29 BP 161 / 64; Pulse 72; Resp 19; Pulse Ox 100% ; db 13:33 Body Mass Index 19.58 (56.70 kg, 170.18 cm) nj1 13:33 Pain Scale: Adult nj1 MDM: 13:42 Patient medically screened. zaria 15:45 Differential diagnosis: Anxiety attack, hypertension, acute kidney injury, ACS. Data jmtabatha reviewed: vital signs, nurses notes, lab test result(s). I considered the following discharge prescriptions or medication management in the emergency department Medications were administered in the Emergency Department. See MAR. Counseling: I had a detailed discussion with the patient and/or guardian regarding: the historical points, exam findings, and any diagnostic results supporting the discharge/admit diagnosis, lab results, the need for outpatient follow up, to return to the emergency department if symptoms worsen or persist or if there are any questions or concerns that arise at home. 15:45 ED course: Patient states feeling much better. Blood pressure has decreased. Patient citlalim advised to follow-up with PCP for reevaluation otherwise given strict return precautions. Patient and family understood and agrees plan of care.. 11/30 13:43 Order name: Basic Metabolic Panel; Complete Time: 15:18 [facility] 11/30 13:43 Order name: CBC with Diff; Complete Time: 15:02 [facility] 11/30 13:43 Order name: Troponin HS; Complete Time: 15:18 [facility] 11/30 13:43 Order name: EKG; Complete Time: 13:43 [facility] 11/30 13:43 Order name: Cardiac monitoring; Complete Time: 15:26 [facility] 11/30 13:43 Order name: EKG - Nurse/Tech; Complete Time: 15:26 [facility] 11/30 13:43 Order name: IV Saline Lock; Complete Time: 14:52 [facility] 11/30 13:43 Order name: Labs collected and sent; Complete Time: 14:52 [facility] 11/30 13:43 Order name: O2 Per Protocol; Complete Time: 15:26 [facility] 11/30 13:43 Order name: O2 Sat Monitoring; Complete Time: 15:26 jmm Administered Medications: 15:19 Drug: Ativan IVP 1 mg Route: IVP; Site: left antecubital; nj1 Disposition Summary: 11/30/22 15:48 Discharge Ordered Location: Home [facility] Condition: Stable jmm Diagnosis - Anxiety disorder, unspecified jmm - Elevated Blood Pressure jm Followup: jmm - With: Private Physician - When: 1 - 2 days - Reason: Recheck today's complaints, Continuance of care, Re-evaluation by your physician Discharge Instructions: - Discharge Summary Sheet jm - Panic Attack [facility] Forms: - Medication Reconciliation Form [facility] - Thank You Letter [facility] - Antibiotic Education jm - Prescription Opioid Use [facility] Prescriptions: - Hydroxyzine HCl 25 mg Oral Tablet - take 1 tablet by ORAL route every 6 hours As needed; 30 tablet; Refills: 0, [facility] Product Selection Permitted Signatures: Dispatcher [employer] EDAnuj Peterson PA PA jmm Jaco, Norma RN RN nj1 Corrections: (The following items were deleted from the chart) 13:41 13:40 PSHx: Tonsillectomy; nj1 nj1
--- NOTE | 2022-11-30 15:49 | ER ---
Nurse's Notes [facility] Name: Dolores Pérez Age: 62 yrs Sex: Female : 1960 Arrival Date: 11/30/2022 Time: 13:20 Bed 14 Private MD: Diagnosis: Anxiety disorder, unspecified;Elevated Blood Pressure Presentation: 11/30 13:33 Chief complaint: Patient states: I was here Friday night for the same. "I have been nj1 taking care of my but it is not reciprocating, im the only one for him and he doesn't appreciate that". Denies suicidal ideations. "Im afraid im going to have a stroke or a heart attack". Coronavirus screen: Vaccine status: Patient reports receiving the 2nd dose of the covid vaccine. Ebola Screen: Patient denies travel to an Ebola-affected area in the 21 days before illness onset. Initial Sepsis Screen: Does the patient meet any 2 criteria? No. Patient's initial sepsis screen is negative. Does the patient have a suspected source of infection? No. Patient's initial sepsis screen is negative. Risk Assessment: Do you want to hurt yourself or someone else? Patient reports no desire to harm self or others. Onset of symptoms was November 30, 2022. 13:33 Method Of Arrival: Ambulatory [facility] 13:33 Acuity: AARON 3 nj1 Triage Assessment: 16:15 General: Appears in no apparent distress. Behavior is. Pain: Denies pain. db Historical: - Allergies: 13:40 NSAIDS; nj1 13:40 peanuts; nj1 13:40 Prednisone; mi1 13:40 Sulfa (Sulfonamide Antibiotics); nj1 - PMHx: 13:40 Asthma; COPD; diabetes mellitus; High Cholesterol; Hypertension; Hypothyroidism; nj1 Transient cerebral ischemia; - Immunization history:: Client reports receiving the 2nd dose of the Covid vaccine. - Social history:: Smoking status: Patient denies any tobacco usage or history of. Screenin:15 [facility] ED Fall Risk Assessment (Adult) History of falling in the last 3 months, db including since admission No falls in past 3 months (0 pts) Confusion or Disorientation No (0 pts) Intoxicated or Sedated No (0 pts) Impaired Gait No (0 pts) Mobility Assist Device Used No (0 pt) Altered Elimination No (0 pt) Score/Fall Risk Level 0 - 2 = Low Risk Oriented to surroundings, Educated pt \\T\\ family on fall prevention, incl call for assistance when getting out of bed. Abuse screen: Denies threats or abuse. Denies injuries from another. Nutritional screening: No deficits noted. Tuberculosis screening: No symptoms or risk factors identified. Assessment: 15:30 Reassessment: Patient appears in no apparent distress at this time. Patient and/or db family updated on plan of care and expected duration. Pain level reassessed. Patient is alert, oriented x 3, equal unlabored respirations, skin warm/dry/pink. General: Appears in no apparent distress. comfortable, Behavior is calm, cooperative. Pain: Denies pain. Neuro: Level of Consciousness is awake, alert, obeys commands, Oriented to person, place, time, situation. 16:15 Reassessment: Patient appears in no apparent distress at this time. Patient and/or db family updated on plan of care and expected duration. Pain level reassessed. Patient is alert, oriented x 3, equal unlabored respirations, skin warm/dry/pink. General: Appears in no apparent distress. comfortable, Behavior is calm, cooperative. Psych: 16:15 Pt denies substance abuse. db 16:31 [place] Suicide Severity Screening: In the past month, have you wished you were db or wished you could go to sleep and not wake up? Patient responds "No." "In the past month, have you actually had any thoughts of killing yourself?" Patient responds "no." "In your lifetime, have you ever done anything, started to do anything, or prepared to do anything to end your life?" Patient responds "no.". Objective: Patient is cooperative. Interventions: Patient reassessed during use of restraints. Patient is physically safe. Safety Checks: Visitors are present. 16:32 Subjective:. db Vital Signs: 13:33 BP 197 / 93; Pulse 86; Resp 18; Temp 98.2(O); Pulse Ox 100% ; Weight 56.7 kg; Height 5 nj1 ft. 7 in. ; Pain 0/10; 15:29 BP 161 / 64; Pulse 72; Resp 19; Pulse Ox 100% ; db 13:33 Body Mass Index 19.58 (56.70 kg, 170.18 cm) [facility] 13:33 Pain Scale: Adult [facility] ED Course: 13:22 Patient arrived in ED. ts1 13:28 Anuj Fernandez PA is PHCP. [facility] 13:28 Feng Tian MD is Attending Physician. [facility] 13:40 Triage completed. nj1 13:41 Arm band placed on right wrist. nj1 14:52 Basic Metabolic Panel Sent. bc6 14:52 CBC with Diff Sent. bc6 14:52 Troponin HS Sent. bc6 14:52 Inserted saline lock: 20 gauge in left antecubital area, using aseptic technique. bc6 15:45 Callie Berg, RN is Primary Nurse. db 16:15 Patient has correct armband on for positive identification. db 16:15 No provider procedures requiring assistance completed. IV discontinued, intact, db bleeding controlled, No redness/swelling at site. Administered Medications: 15:19 Drug: Ativan IVP 1 mg Route: IVP; Site: left antecubital; [facility] Medication: 16:15 VIS not applicable for this client. db Outcome: 15:48 Discharge ordered by MD. [facility] 16:15 Discharged to home ambulatory. db 16:15 Condition: stable 16:15 Discharge instructions given to patient, Instructed on discharge instructions, follow up and referral plans. Prescriptions given X 1. 16:16 Patient left the ED. Signatures: Anuj Fernandez PA PA [facility] Rocio Read, JADEN STANLEY Callie Berg, RN RN Leeanna Werner 6 Lisa Velazquez RN RN nj1 Uma Acharya, LACEY PAS ts1 Corrections: (The following items were deleted from the chart) 13:41 13:40 PSHx: Tonsillectomy; nj1 nj1
[2022-11-30 16:25] VITALS: TEMP 98.2; O2SAT 100
[2022-11-30 16:31] VITALS: BP 161/64
--- NOTE | 2022-12-01 07:27 | EKG ---
Test Date: 2022-11-30 Test Time: 15:23:01 Diploma Maker: BROOK MEASUREMENT RESULTS: Intervals: Rate: 74 NH: 162 QRSD: 90 QT: 402 QTc: 446 [place]: P: 66 NH: 162 QRS: 49 T: 55 INTERPRETIVE STATEMENTS: Normal sinus rhythm Normal ECG Compared to ECG 11/25/2022 20:09:03 ST (T wave) deviation no longer present Electronically Signed On 12-01-22 07:25:20 CDT by George Ma
== END 2022-11-30 16:16 | disposition home or self-care (01) ==
LOC: ER 13:20
DX: F41.9 Anxiety disorder, unspecified (principal); I10 Essential (primary) hypertension; Z88.2 Allergy status to sulfonamides; Z88.6 Allergy status to analgesic agent; Z88.8 Allergy status to other drugs, medicaments and biological substances; Z91.010 Allergy to peanuts
CPT/HCPCS: 36415; 80048; 84484; 85025; 93005; 96374; 99284

== ENCOUNTER 2022-12-28 10:33 | Emergency (ER) | payer OTHER ==
--- OUTSIDE RECORDS SUMMARY | 2022-12-28 10:40 | XMS REPORT | Continuity of Care Document ---
:1960 Author Organization [facility] t Address [address] [facility] [address] [place] [id number] Care Team Providers Name Role Phone PAULINA DUNHAM Primary Care Physician Unavailable Susan Rodriguez Attending Clinician Unknown, Attending Attending Clinician Unavailable SUSAN LEE Attending Clinician Unavailable Doctor Unassigned, [place] Attending Clinician Unavailable Only, Ang Db Test [...] Effective Date Expiration Date Teodora FALK II [id number] 2016 00:00:00 Problems Condition Condition Condition Status [...] 01-06 ity of 00:00: [place] [facility] Fajardo Propensi Active Anaphylaxis Uni vers ty to [...] to 4-10 ity of mide adverse 00:00: [place] Antibiot reaction 00 Medica l ics) s Branch Social History Social Habit Start Date Stop Date Quantity Comments Source Exposure to 2022-08-14 2022-08-24 Not sure [facility] SARS-CoV-2 00:00:00 09:35:00 [facility] (event) Branch Tobacco use and 2022-08-24 2022-08-24 Smokeless tobacco Un iversity of exposure 00:00:00 00:00:00 non-user [facility] Sex Ass[birth year] At [birth year] Universit y of 00:00:00 00:00:00 [facility] Smoking Status Start Date Stop Date Source Never smoked tobacco [facility] Medications Ordered Filled Start Stop Current Ordering Indication Dosage Frequency Signature Comments Components Source Medication Medication Date Date Medication? Clinician (SIG) Name Name altagracia Yes [id number] 5mL Take 5 mL Univers mine-pseudo 2-18 by mouth 4 it y of ephedrine-D 00:00: (four[place] (BROMFED 00 times Medical DM) 2-30-10 daily as Bran ch mg/5 mL needed for syrup Congestion /Allergies . benzonatate Yes [id number] 100mg Take 1 Univers 100 mg 7-03 capsule by ity of capsule 00:00: mouth 3 [place] 00 (three) Medical times Branch daily as needed for Cough. loratadine Yes [id number] 10mg Take 1 U nivers (CLARITIN) 7-03 tablet by ity of 10 mg 00:00: mouth at [place] tablet 00 bedtime as Medical needed for Branch Allergies. benzonatate Yes [id number] 100mg Take 1 Univers 100 mg 7-03 capsule by ity of capsule 00:00: mouth 3 [place] 00 (three) Medical times Branch daily as needed for Cough. loratadine Yes [id number] 10mg Take 1 U nivers (CLARITIN) 7-03 tablet by ity of 10 mg 00:00: mouth at [place] tablet 00 bedtime as Medical needed for Branch Allergies. benzonatate 0 Yes [id number] 100mg Take 1 Univers 100 mg 7-03 capsule by ity of capsule 00:00: mouth 3 (three) Medical times Branch daily as needed for Cough. loratadine 2-0 Yes [id number] 10mg Take 1 U nivers (CLARITIN) 7-03 tablet by ity of 10 mg 00:00: mouth at [place] tablet 00 bedtime as Medical needed for Branch Allergies. benzonatate 2-0 Yes [id number] 100mg Take 1 Univers 100 mg 7-03 capsule by ity of capsule 00:00: mouth 3 (three) Medical times Branch daily as needed for Cough. loratadine 2-0 Yes [id number] 10mg Take 1 U nivers (CLARITIN) 7-03 tablet by ity of 10 mg 00:00: mouth at [place] tablet 00 bedtime as Medical needed for Branch Allergies. benzonatate 2-0 Yes [id number] 100mg Take 1 Univers 100 mg 7-03 capsule by ity of capsule 00:00: mouth (three) Medical times Branch daily as needed for Cough. loratadine 2-0 Yes [id number] 10mg Take 1 U nivers (CLARITIN) 7-03 tablet by ity of 10 mg 00:00: mouth at [place] tablet 00 bedtime as Medical needed for Branch Allergies. benzonatate 2-0 Yes [id number] 100mg Take 1 Univers 100 mg 2-01 capsule by ity of capsule 00:00: mouth (three) Medical times Branch daily as needed for Cough. benzonatate 2-0 Yes [id number] 100mg Take 1 Univers 100 mg 2-01 capsule by ity of capsule 00:00: mouth (three) Medical times Branch daily as needed for Cough. benzonatate 2-0 Yes [id number] 100mg Take 1 Univers 100 mg 2-01 capsule by ity of capsule 00:00: mouth (three) Medical times Branch daily as needed for Cough. benzonatate 2022-0 Yes [id number] 100mg Take 1 Univers 100 mg 2-01 capsule by ity of capsule 00:00: mouth (three) Medical times Branch daily as needed for Cough. benzonatate 2022-0 Yes [id number] 100mg Take 1 Univers 100 mg 2-01 capsule by ity of capsule 00:00: mouth (three) Medical times Branch daily as needed for Cough. benzonatate 0 Yes [id number] 100mg Take 1 Univers 100 mg 2-01 capsule by ity of capsule 00:00: mouth 3 00 (three) Medical times Branch daily as needed for Cough. benzonatate 2021-0 Yes [id number] 100mg Take 1 Univers 100 mg 2-01 capsule by ity of capsule 00:00: mouth 3 00 (three) Medical times Branch daily as needed for Cough. benzonatate 0 Yes [id number] 100mg Take 1 Univers 100 mg 2-01 capsule by ity of capsule 00:00: mouth 3 00 (three) Medical times Branch daily as needed for Cough. benzonatate 2021-0 Yes [id number] 100mg Take 1 Univers 100 mg 2-01 [...] Therapy: Other (see Comments) iopamidol 2020-07- No [id number] 120mL 120 mL, Univers (ISOVUE 08-31 Intravenou ity o f 370-500 mL) 00:15: 23:08 s, ONCE, 1 [place] injection 00 :00 dose, On Medica l 120 mL Fri Branch 06/29/21 at 1815, Routine amoxicillin 2020-07- No [id number] 1{tbl} Take 1 Univers -clavulanat 08-30 tablet [...] Indication s: acute pain ondansetron 2020-07- No [id number] 4mg Take 1 Univers 4 mg tablet 2-24 12-30 tablet by it y of 00:00: 05:59 mouth [place] 00 :00 every 8 Medical (eight) Branch hours for 5 days. atorvastati 2020-07 Yes 10mg 10 mg, Univ ers n (LIPITOR) 1-15 Oral, QHS, it y of tablet 10 03:00: First dose [place] mg 00 on [facility] 05/20/21 Branch at 2100, Until Discontinu ed, Routine atorvastati 2020-07 Yes 10mg Take 10 mg Univers n 10 mg 1-14 by mouth ity of tablet 17:23: at [place] bedtime. Medical Branch spironolact 2020-07 Yes 25mg [...] mouth at [place] as ORAL) 01 bedtime. [facility] Branch enoxaparin 2020-07 Yes 40mg 40 mg, Unive rs (LOVENOX) 1-14 Subcutaneo ity of injection 15:00: us, DAILY, [place] 40 mg 00 First dose Medical on [facility] 05/20/21 at 0900, Until Discontinu ed, Routine clopidogreL 2020-07 Yes 75mg 75 mg, Univ ers (PLAVIX) 1-14 Oral, QAM, ity o f tablet 75 15:00: First dose [place] mg 00 on [facility] 05/20/21 Branch at 0900, Until Discontinu ed, Routine ALPRAZolam 2020-07 Yes .5mg 0.5 mg, Univ ers (XANAX) 1-14 Oral, ity of tablet 0.5 15:00: DAILY, [place] mg 00 First dose Medical on [facility] 05/20/21 at 0900, Until Discontinu ed, Routine spironolact 2020-07 Yes 25mg 25 mg, Univ ers one 1-14 Oral, BID, ity of (ALDACTONE) 14:00: First dose [place] tablet 25 00 on [facility] 05/20/21 Branch at 0800, Until Discontinu ed, Routine Sliding 2020-07 Yes Subcutaneo Univ ers Scale 1-14 us, AC, ity of Insulin-Reg 13:30: First dose [place] ular + Fsbg 00 on [facility] Branch at 0730, Until Discontinu ed, Routine levothyroxi 2020-07 Yes 100ug 100 mcg, U nivers ne 1-14 Oral, ity of (SYNTHROID) 12:00: QAM-0600, [place] tablet 100 00 First dose Med ical mcg on [facility] 05/20/21 at 0600, Until Discontinu ed, Routine pantoprazol 2020-07 Yes 40mg 40 mg, Univ ers e 1-14 Oral, ity of (PROTONIX) 06:30: DAILY, [place] EC tablet 00 First dose Medi hermelindo 40 mg (after Branch last modificati on) on [place] 05/20/21 at 0030, Until Discontinu ed cyclobenzap 2020-07 Yes 10mg 10 mg, Univ ers rine 1-14 Oral, ity of (FLEXERIL) 06:12: TIDPRN, [place] tablet 10 13 Starting Medica l mg on [facility] 05/20/21 at 0012, Until Discontinu ed, Routine, Muscle Spasms, leg pain polyethylen 2020-07 Yes 17g 17 g, Unive rs e glycol 1-14 Oral, ity of 3350 powder 06:04: C64CMIP, [place] 17 g 16 Starting Medical on [facility] 05/20/21 at 0004, Until Discontinu ed, Routine, Constipati on glucagon 2020-07 Yes 1mg 1 mg, Univers (GLUCAGEN 1-14 Intramuscu ity of DIAGNOSTIC 05:29: lar, PRN, [place] KIT) 29 Starting Medical injection 1 on [facility] 05/19/21 at 2329, Until Discontinu ed, JEFFREY, Blood Glucose < or = 70 mg/dL and patient is unable to swallow or has mental changes. dextrose 50 2020-07 Yes 25mL 25 mL, Univ ers % in water -14 Slow IV ity of (D50W) 05:29: Push, PRN, [place] injection 29 Starting Medica l 25 mL on [facility] 05/19/21 at 2329, Until Discontinu ed, JEFFREY, Blood Glucose < or = 70 mg/dL and patient is unable to swallow or has mental status changes. ondansetron 2020-07 Yes 4mg 4 mg, Slow Univers (ZOFRAN 1-14 IV Push, ity of (PF)) 05:29: Q6HPRN, [place] injection 4 21 Starting Medi hermelindo mg on [facility] 05/19/21 at 2329, Until Discontinu ed, [...] 14 Oral, ity of (TYLENOL) 05:29: Q6HPRN, [place] tablet 650 05 Starting Medic al mg on [facility] Branch 05/19/21 at 2329, Until Discontinu ed, Routine, Pain (scale 1-3) omeprazole 2020-07- No 20mg Take 20 mg Univers 20 mg 07-1913 by mouth ity of capsule 23:30: 00:00 daily. [place] 33 :00 [facility] guaiFENesin 2020- No 100mg 100 mg, U nivers 100 mg/5 mL 09-1411 Oral, ity of solution 05:00: 16:59 ONCE, 1 [place] 100 mg 00 :00 dose, Fri [facility] 09/13/20 at Branch 2300, Routine ketorolac 2020- No 30mg 30 mg, Unive rs (TORADOL) 09-1411 Slow IV ity of injection 03:30: 02:27 Push, [place] 30 mg 00 :00 ONCE, 1 Medical dose, [facility] 09/13/20 at 2130, JEFFREY
Fa culty member approving Restricted medication : DIANA BERG benzonatate Yes [id number] 100mg Take 1 Univers 100 mg 3-10 capsule by ity of capsule 00:00: mouth 3 [place] 00 (three) Medical times [place] daily as needed for Cough. benzonatate Yes [id number] 100mg Take 1 Univers 100 mg 3-10 capsule by ity of capsule 00:00: mouth 3 [place] 00 (three) Medical times Branch daily as needed for Cough. benzonatate 2020- No [id number] 100mg Take 1 Univers 100 mg 09-13 [...] 10 1929, JEFFREY mL codeine-gua 2019-0 Yes [id number] 10mL Take 10 mL Univers ifenesin -21 by mouth ity of 10-100 mg/5 00:00: every 6 [place] as mL solution 00 (six) Medical hours as Branch needed for Cough. albuterol 2020-0 Yes [id number] 2.5mg Inhale 3 Univers 2.5 mg /3 1-21 mL every 4 ity of mL (0.083 00:00: (four) [place] %) 00 hours as Medical nebulizer needed for Bran ch solution Wheezing or Shortness of Breath. May also nebulize one extra every 6 hours. albuterol 2020-0 Yes [id number] 2.5mg Inhale 3 Univers 2.5 mg /3 1-21 mL every 4 ity of mL (0.083 00:00: (four) [place] %) 00 hours as Medical nebulizer needed for Bran ch solution Wheezing or Shortness of Breath. May also nebulize one extra every 6 hours. albuterol 2020-0 Yes [id number] 2.5mg Inhale 3 Univers 2.5 mg /3 1-21 mL every 4 ity of mL (0.083 00:00: (four) [place] %) 00 hours as Medical nebulizer needed for Bran ch solution Wheezing or Shortness of Breath. May also nebulize one extra every 6 hours. albuterol 2020-0 Yes [id number] 2.5mg Inhale 3 Univers 2.5 mg /3 1-21 mL every 4 ity of mL (0.083 00:00: (four) [place] %) 00 hours as Medical nebulizer needed for Bran ch solution Wheezing or Shortness of Breath. May also nebulize one extra every 6 hours. albuterol 2020-0 Yes [id number] 2.5mg Inhale 3 Univers 2.5 mg /3 1-21 mL every 4 ity of mL (0.083 00:00: (four) [place] %) 00 hours as Medical nebulizer needed for Bran ch solution Wheezing or Shortness of Breath. May also nebulize one extra every 6 hours. albuterol 2020-0 Yes [id number] 2.5mg Inhale 3 Univers 2.5 mg /3 1-21 mL every 4 ity of mL (0.083 00:00: (four) [place] %) 00 hours as Medical nebulizer needed for Bran ch solution Wheezing or Shortness of Breath. May also nebulize one extra every 6 hours. albuterol 2020-0 Yes [id number] 2.5mg Inhale 3 Univers 2.5 mg /3 1-21 mL every 4 ity of mL (0.083 00:00: (four) [place] %) 00 hours as Medical nebulizer needed for Bran ch solution Wheezing or Shortness of Breath. May also nebulize one extra every 6 hours. albuterol 2020-0 Yes [id number] 2.5mg Inhale 3 Univers 2.5 mg /3 1-21 mL every 4 ity of mL (0.083 00:00: (four) [place] %) 00 hours as Medical nebulizer needed for Bran ch solution Wheezing or Shortness of Breath. May also nebulize one extra every 6 hours. albuterol 2020-0 Yes [id number] 2.5mg Inhale 3 Univers 2.5 mg /3 1-21 mL every 4 ity of mL (0.083 00:00: (four) [place] %) 00 hours as Medical nebulizer needed for Bran ch solution Wheezing or Shortness of Breath. May also nebulize one extra every 6 hours. albuterol 2020-0 Yes [id number] 2.5mg Inhale 3 Univers 2.5 mg /3 1-21 mL every 4 ity of mL (0.083 00:00: (four) [place] %) 00 hours as Medical nebulizer needed for Bran ch solution Wheezing or Shortness of Breath. May also nebulize one extra every 6 hours. albuterol 2020-0 Yes [id number] 2.5mg Inhale 3 Univers 2.5 mg /3 1-21 mL every 4 ity of mL (0.083 00:00: (four) [place] %) 00 hours as Medical nebulizer needed for Bran ch solution Wheezing or Shortness of Breath. May also nebulize one extra every 6 hours. albuterol 2020-0 Yes [id number] 2.5mg Inhale 3 Univers 2.5 mg /3 1-21 mL every 4 ity of mL (0.083 00:00: (four) [place] %) 00 hours as Medical nebulizer needed for Bran ch solution Wheezing or Shortness of Breath. May also nebulize one extra every 6 hours. albuterol 2020-0 Yes [id number] 2.5mg Inhale 3 Univers 2.5 mg /3 1-21 mL every 4 ity of mL (0.083 00:00: (four) [place] %) 00 hours as Medical nebulizer needed for Bran ch solution Wheezing or Shortness of Breath. May also nebulize one extra every 6 hours. albuterol 2020-0 Yes [id number] 2.5mg Inhale 3 Univers 2.5 mg /3 1-21 mL every 4 ity of mL (0.083 00:00: (four) [place] %) 00 hours as Medical nebulizer needed for Bran ch solution Wheezing or Shortness of Breath. May also nebulize one extra every 6 hours. albuterol 2020-0 Yes [id number] 2.5mg Inhale 3 Univers 2.5 mg /3 1-21 mL every 4 ity of mL (0.083 00:00: (four) [place] %) 00 hours as Medical nebulizer needed for Bran ch solution Wheezing or Shortness of Breath. May also nebulize one extra every 6 hours. codeine-gua 2020-0 2020- No [id number] 10mL Take 10 mL Univers ifenesin 1-21 [...] 03/11/19 at 1430, JEFFREY dicyclomine 2018-0 Yes [id number] 10mg Take 1 Univers (BENTYL) 10 9-05 capsule by it y of mg capsule 00:00: mouth 4 [place] 00 (four) Medical times Branch daily. ondansetron 2019-0 Yes [id number] 4mg Take 1 Univers 4 mg 9-05 tablet by ity of disintegrat 00:00: mouth [place] ing tablet 00 every 4 Medica l (four) Branch hours as needed for Nausea and Vomiting (N/V). dicyclomine 2019-0 Yes [id number] 10mg Take 1 Univers (BENTYL) 10 9-05 capsule by it y of mg capsule 00:00: mouth 4 [place] 00 (four) Medical times Branch daily. ondansetron 2019-0 Yes [id number] 4mg Take 1 Univers 4 mg 9-05 tablet by ity of disintegrat 00:00: mouth [place] ing tablet 00 every 4 Medica l (four) Branch hours as needed for Nausea and Vomiting (N/V). dicyclomine 2019-0 Yes [id number] 10mg Take 1 Univers (BENTYL) 10 9-05 capsule by it y of mg capsule 00:00: mouth 4 [place] (four) Medical times Branch daily. ondansetron 2019-0 Yes [id number] 4mg Take 1 Univers 4 mg 9-05 tablet by ity of disintegrat 00:00: mouth [place] ing tablet 00 every 4 Medica l (four) Branch hours as needed for Nausea and Vomiting (N/V). dicyclomine 2020- No [id number] 10mg Take 1 Univers (BENTYL) 10 -05 03-10 capsule by i ty of mg capsule 00:00: 00:00 mouth 4 [place] as 00 :00 (four) Medical times Branch daily. ondansetron 2020- No [id number] 4mg Take 1 Univers 4 mg 9-05 [...] by mouth ity of tablet 14:40: at [place] [address] bedtime. Medical Branch omeprazole 2018- Yes 20mg Take 20 mg U nivers 20 mg 4-10 by mouth ity of capsule 14:40: daily. [place] [address] Medical Branch atorvastati 2017-0 Yes 10mg Take 10 mg Univers n 10 mg 4-10 by mouth ity of tablet 14:40: at [place] [address] bedtime. Medical Branch omeprazole 2018-0 Yes 20mg Take 20 mg U nivers 20 mg 4-10 by mouth ity of capsule 14:40: daily. [place] [address] Medical Branch atorvastati 2017-0 Yes 10mg Take 10 mg Univers n 10 mg 4-10 by mouth ity of tablet 14:40: at [place] [address] bedtime. Medical Branch omeprazole 2018-0 Yes 20mg Take 20 mg U nivers 20 mg 4-10 by mouth ity of capsule 14:40: daily. [place] [address] Medical Branch atorvastati 2017-0 Yes 10mg Take 10 mg Univers n 10 mg 4-10 by mouth ity of tablet 14:40: at [place] [address] bedtime. Medical Branch omeprazole 2017-0 Yes 20mg Take 20 mg U nivers 20 mg 4-10 by mouth ity of capsule 14:40: daily. [place] [address] Medical Branch atorvastati 2017-0 Yes 10mg Take 10 mg Univers n 10 mg 4-10 by mouth ity of tablet 14:40: at [place] [address] bedtime. Medical Branch omeprazole 2017-0 Yes 20mg Take 20 mg U nivers 20 mg 4-10 by mouth ity of capsule 14:40: daily. [place] [address] Medical Branch levothyroxi 2018-0 Yes TAKE 1 Univ ers ne 125 mcg 4-10 TABLET BY ity of tablet 00:00: MOUTH [place] EVERY Medical MORNING Branch levothyroxi 2018-0 Yes TAKE 1 Univ ers ne 125 mcg 4-10 TABLET BY ity of tablet 00:00: MOUTH [place] EVERY Medical MORNING Branch levothyroxi 2018-0 Yes TAKE 1 Univ ers ne 125 mcg 4-10 TABLET BY ity of tablet 00:00: MOUTH [place] EVERY Medical MORNING Branch levothyroxi 2018-0 Yes TAKE 1 Univ ers ne 125 mcg 4-10 TABLET BY ity of tablet 00:00: MOUTH [place] EVERY Medical MORNING Branch levothyroxi 2018-0 Yes TAKE 1 Univ ers ne 125 mcg 4-10 TABLET BY ity of tablet 00:00: MOUTH [place] EVERY Medical MORNING Branch levothyroxi 2018-0 Yes [...] TABLET BY ity of tablet 00:00: MOUTH [place] 00 EVERY Medical MORNING Branch clopidogrel 2018-0 Yes TAKE 1 Univ ers 75 mg 2-06 TABLET BY ity of tablet 00:00: MOUTH [place] 00 EVERY Medical MORNING Branch clopidogrel 2018-0 Yes TAKE 1 Univ ers 75 mg 2-06 TABLET BY ity of tablet 00:00: MOUTH [place] 00 EVERY Medical MORNING Branch clopidogrel 2018-0 Yes TAKE 1 Univ ers 75 mg 2-06 TABLET BY ity of tablet 00:00: MOUTH [place] 00 EVERY Medical MORNING Branch clopidogrel 2018-0 Yes TAKE 1 Univ ers 75 mg 2-06 TABLET BY ity of tablet 00:00: MOUTH [place] 00 EVERY Medical MORNING Branch clopidogrel 2018-0 Yes TAKE 1 Univ ers 75 mg 2-06 TABLET BY ity of tablet 00:00: MOUTH [place] 00 EVERY Medical MORNING Branch clopidogrel 2018-0 Yes TAKE 1 Univ ers 75 mg 2-06 TABLET BY ity of tablet 00:00: [facility] 00 EVERY Medical MORNING Branch clopidogrel 2018-0 Yes TAKE 1 Univ ers 75 mg 2-06 TABLET BY ity of tablet 00:00: [facility] 00 EVERY Medical MORNING Branch clopidogrel 2018-0 Yes TAKE 1 Univ ers 75 mg 2-06 TABLET BY ity of tablet 00:00: [facility] 00 EVERY Medical MORNING Branch clopidogrel 2018-0 Yes TAKE 1 Univ ers 75 mg 2-06 TABLET BY ity of tablet 00:00: [facility] 00 EVERY Medical MORNING Branch clopidogrel 2018-0 Yes TAKE 1 Univ ers 75 mg 2-06 TABLET BY ity of tablet 00:00: [facility] 00 EVERY Medical MORNING Branch clopidogrel 2018-0 Yes TAKE 1 Univ ers 75 mg 2-06 TABLET BY ity of tablet 00:00: [facility] 00 EVERY Medical MORNING Branch clopidogrel 2018-0 Yes TAKE 1 Univ ers 75 mg 2-06 TABLET BY ity of tablet 00:00: [facility] 00 EVERY Medical MORNING Branch Vital Signs Vital Name Observation Time Observation Value Comments Source Systolic blood 2022-08-24 15:43:00 135 mm[Hg] Univer sity of pressure [facility] Diastolic blood 2022-08-24 15:43:00 83 mm[Hg] Unive rsity of pressure [facility] Heart rate 2022-08-24 15:43:00 94 /min [facility] Body temperature 2022-08-24 15:43:00 36.83 Brittany Univ ersity of [place] [facility] Respiratory rate 2022-08-24 15:43:00 18 /min Univ ersity [facility] [place] [facility] Body height 2022-08-24 15:43:00 170.2 cm [facility] [place] [facility] Body weight 2022-08-24 15:43:00 58.968 kg Universi ty [facility] [place] [facility] BMI 2022-08-24 15:43:00 20.36 kg/m2 [facility] ty [facility] [place] [facility] Oxygen saturation in 2022-08-24 15:43:00 99 /min University of Arterial blood by [facility] Pulse oximetry Branch Systolic blood 2022-01-08 02:02:00 147 mm[Hg] Univer sity of pressure [place] [facility] Diastolic blood 2022-01-08 02:02:00 78 mm[Hg] Unive rsity of pressure [place] [facility] Heart rate 2022-01-08 02:02:00 78 /min Universi ty of [place] [facility] Respiratory rate 2022-01-08 02:02:00 18 /min Univ ersity of [place] [facility] Oxygen saturation in 2022-01-08 02:02:00 100 /min University of Arterial blood by [facility] Pulse oximetry Branch Body temperature 2022-01-07 23:24:00 37.17 Brittany [facility] [place] [facility] Body weight 2022-01-07 23:24:00 58.968 kg Universi ty [facility] [place] [facility] BMI 2022-01-07 23:24:00 20.36 kg/m2 [facility] [place] [facility] Systolic blood 2022-01-06 20:29:00 140 mm[Hg] Univer sity of pressure [place] [facility] Diastolic blood 2022-01-06 20:29:00 106 mm[Hg] Unive rsity of pressure [place] [facility] Heart rate 2022-01-06 20:29:00 102 /min [facility] [place] [facility] Body temperature 2022-01-06 20:29:00 37.5 Brittany [facility] [place] [facility] Respiratory rate 2022-01-06 20:29:00 16 /min Univ ers[facility] [place] [facility] Body height 2022-01-06 20:29:00 170.2 cm [facility] [place] [facility] Body weight 2022-01-06 20:29:00 58.968 kg [facility] [place] [facility] BMI 2022-01-06 20:29:00 20.36 kg/m2 [facility] [place] [facility] Oxygen saturation in 2022-01-06 20:29:00 99 /min University of Arterial blood by [facility] Pulse oximetry Branch Systolic blood 2021-09-02 01:52:00 132 mm[Hg] Univer sity of pressure [place] [facility] Diastolic blood 2021-09-02 01:52:00 75 mm[Hg] Unive rsity of pressure [place] [facility] Heart rate 2021-09-02 01:52:00 67 /min [facility] [place] [facility] Respiratory rate 2021-09-02 01:52:00 16 /min Univ ersity [facility] [place] [facility] Oxygen saturation in 2021-09-02 01:52:00 99 /min University of Arterial blood by [facility] Pulse oximetry Branch Body temperature 2021-09-01 23:57:00 36.17 Brittany [facility] [place] [facility] Body height 2021-09-01 23:57:00 170.2 cm [facility] [place] [facility] Body weight 2021-09-01 23:57:00 58.968 kg [facility] [place] [facility] BMI 2021-09-01 23:57:00 20.36 kg/m2 [facility] [place] [facility] Systolic blood 2021-08-07 15:57:00 165 mm[Hg] Univer sity of pressure [place] [facility] Diastolic blood 2021-08-07 15:57:00 71 mm[Hg] Unive rsity of pressure [place] [facility] Heart rate 2021-08-07 15:57:00 97 /min [facility] [place] [facility] Body temperature 2021-08-07 15:57:00 37.44 Brittany [facility] [place] [facility] Respiratory rate 2021-08-07 15:57:00 18 /min [facility] [place] [facility] Body height 2021-08-07 15:57:00 170.2 cm [facility] [place] [facility] Body weight 2021-08-07 15:57:00 56.7 kg [facility] [place] [facility] BMI 2021-08-07 15:57:00 19.58 kg/m2 [facility] [place] [facility] Oxygen saturation in 2021-08-07 15:57:00 98 /min University of Arterial blood by [facility] hermelindo Pulse oximetry Branch Systolic blood 2021-06-30 01:29:00 132 mm[Hg] Univer sity of pressure [place] [facility] Diastolic blood 2021-06-30 01:29:00 75 mm[Hg] Unive rsity of pressure [place] [facility] Heart rate 2021-06-30 01:29:00 75 /min [facility] [place] [facility] Respiratory rate 2021-06-30 01:29:00 18 /min Univ [facility] [place] [facility] Oxygen saturation in 2021-06-30 01:29:00 100 /min University of Arterial blood by [facility] Pulse oximetry Branch Body temperature 2021-06-29 22:01:00 36.67 Brittany [facility] [place] [facility] Body weight 2021-06-29 22:01:00 53.071 kg [facility] [place] [facility] BMI 2021-06-29 22:01:00 18.32 kg/m2 [facility] [place] [facility] Systolic blood 2021-05-20 21:45:00 137 mm[Hg] Univer sity of pressure [place] [facility] Diastolic blood 2021-05-20 21:45:00 75 mm[Hg] Unive rsity of pressure [place] [facility] Heart rate 2021-05-20 21:45:00 75 /min Universi ty of [facility] Body temperature 2021-05-20 21:45:00 36.5 Brittany [facility] Respiratory rate 2021-05-20 21:45:00 16 /min [facility] Oxygen saturation in 2021-05-20 21:45:00 97 /min [facility] Arterial blood by [facility] Pulse oximetry Branch Body weight 2021-05-20 04:14:00 53.479 kg [facility] BMI 2021-05-20 04:14:00 18.47 kg/m2 [facility] Body height 2021-05-20 03:42:00 170.2 cm [facility] Systolic blood 2020-09-14 03:30:00 147 mm[Hg] [facility] Diastolic blood 2020-09-14 03:30:00 89 mm[Hg] Unive rsity of pressure [facility] Heart rate 2020-09-14 03:30:00 73 /min [facility] Respiratory rate 2020-09-14 03:30:00 19 /min [facility] Oxygen saturation in 2020-09-14 03:30:00 97 /min [facility] Arterial blood by [facility] hermelindo Pulse oximetry Branch Body temperature 2020-09-14 02:10:00 36.5 Brittany [facility] Body height 2020-09-14 02:09:00 170.2 cm [facility] Body weight 2020-09-14 02:09:00 61.236 kg [facility] BMI 2020-09-14 02:09:00 21.14 kg/m2 [facility] Systolic blood 2020-09-14 03:30:00 147 mm[Hg] [facility] Diastolic blood 2020-09-14 03:30:00 89 mm[Hg] [facility] Heart rate 2020-09-14 03:30:00 73 /min [facility] Respiratory rate 2020-09-14 03:30:00 19 /min [facility] Oxygen saturation in 2020-09-14 03:30:00 97 /min [facility] Arterial blood by [facility] Pulse oximetry Branch Body temperature 2020-09-14 02:10:00 36.5 Brittany [facility] Body height 2020-09-14 02:09:00 170.2 cm [facility] Body weight 2020-09-14 02:09:00 61.236 kg [facility] BMI 2020-09-14 02:09:00 21.14 kg/m2 [facility] Heart rate 2019-07-28 01:36:00 70 /min [facility] Respiratory rate 2019-07-28 01:36:00 18 /min [facility] Oxygen saturation in 2019-07-28 01:24:00 98 /min [facility] by [place] [facility] hermelindo Pulse oximetry Branch Systolic blood 2019-07-28 01:00:00 143 mm[Hg] [facility] Diastolic blood 2019-07-28 01:00:00 74 mm[Hg] [facility] Body temperature 2019-07-28 00:05:00 36.56 Brittany [facility] Body height 2019-07-28 00:05:00 170.2 cm [facility] Body weight 2019-07-28 00:05:00 68.04 kg [facility] BMI 2019-07-28 00:05:00 23.49 kg/m2 [facility] Heart rate 2019-07-28 01:36:00 70 /min [facility] Respiratory rate 2019-07-28 01:36:00 18 /min [facility] Oxygen saturation in 2019-07-28 01:24:00 98 /min [facility] Arterial blood by [facility] Pulse oximetry Branch Systolic blood 2019-07-28 01:00:00 143 mm[Hg] [facility] [place] [facility] Diastolic blood 2019-07-28 01:00:00 74 mm[Hg] [facility] Body temperature 2019-07-28 00:05:00 36.56 Brittany [facility] Body height 2019-07-28 00:05:00 170.2 cm [facility] Body weight 2019-07-28 00:05:00 68.04 kg [facility] BMI 2019-07-28 00:05:00 23.49 kg/m2 [facility] Systolic blood 2019-03-11 21:00:00 141 mm[Hg] [facility] Diastolic blood 2019-03-11 21:00:00 66 mm[Hg] [facility] Heart rate 2019-03-11 21:00:00 97 /min [facility] Respiratory rate 2019-03-11 21:00:00 18 /min [facility] Oxygen saturation in 2019-03-11 21:00:00 97 /min [facility] Arterial blood by [facility] Pulse oximetry Branch Body temperature 2019-03-11 19:13:00 36.06 Brittany [facility] Body weight 2019-03-11 19:12:00 68.04 kg [facility] BMI 2019-03-11 19:12:00 23.49 kg/m2 [facility] Systolic blood 2019-03-11 21:00:00 141 mm[Hg] [facility] pressure [facility] Diastolic blood 2019-03-11 21:00:00 66 mm[Hg] [facility] Heart rate 2019-03-11 21:00:00 97 /min [facility] Respiratory rate 2019-03-11 21:00:00 18 /min [facility] Oxygen saturation in 2019-03-11 21:00:00 97 /min [facility] Arterial blood by [facility] Pulse oximetry [place] Body temperature 2019-03-11 19:13:00 36.06 Brittany [facility] Body weight 2019-03-11 19:12:00 68.04 kg [facility] BMI 2019-03-11 19:12:00 23.49 kg/m2 [facility] Procedures Procedure Date / Time Performing Clinician Source Performed POCT SARS-COV-2 ANTIGEN 2022-08-24 15:52:00 Susan Lee [facility] (BINAX NOW) [facility] POCT MOLECULAR FLU 2022-08-24 15:51:00 Unknown, Attending [facility] ASSIGNMENT OF BENEFITS 2022-08-24 15:38:07 Doctor Unassigned, No [facility] Name [facility] Branch XR CHEST 1 VW 2022-01-08 00:24:42 Alex Oconnell [facility] RAPID STREP SCREEN FOR 2022-01-06 20:47:00 Sherrill Connor [facility] GROUP A Medical Branch COVID-19 (ID NOW RAPID 2022-01-06 20:47:00 Sherrill Connor [facility] TESTING) Medical Branch CONSENT/REFUSAL FOR 2022-01-06 20:26:18 Doctor Unassigned, No [facility] DIAGNOSIS AND TREATMENT Name [facility] RAPID INFLUENZA A/B 2021-09-02 00:47:00 Cameron Dalton [facility] COVID-19 (ID NOW RAPID 2021-09-02 00:47:00 Cameron Dalton [facility] TESTING) Medical Branch XR CHEST 2 VW 2021-09-02 00:27:31 [facility] CONSENT/REFUSAL FOR 2021-09-01 23:46:25 Doctor Unassigned, No [facility] Name Medical Branch XR CHEST 2 VW 2021-08-07 16:43:01 Darius [facility] CONSENT/REFUSAL FOR 2021-08-07 15:37:28 Doctor Unassigned, No [facility] Name Medical Branch CT ABDOMEN PELVIS W 2021-06-29 23:11:[address] [facility] CONTRAST Medical Branch LIPASE 2021-06-29 22:18:00 [facility] 2021-06-29 22:18:00 Omaira [facility] COMP. METABOLIC PANEL 2021-06-29 22:18:00 Omaira [facility] ([id number]) Medical Branch CBC WITH DIFF 2021-06-29 22:18:00 Omaira [facility] URINALYSIS 2021-06-29 22:18:00 [facility] CONSENT/REFUSAL FOR 2021-06-29 21:50:47 Doctor Unassigned, No [facility] POCT GLUCOSE (AUTOMATED) 2021-05-20 17:30:00 [facility] HB ECG ROUTINE & RHYTHM 2021-05-20 15:36:46 Sami Caceres [facility] STRIP [facility] Branch TRANSTHORACIC ECHO (TTE) 2021-05-20 15:19:52 Esther [facility] COMPLETE [facility] TROPONIN I 2021-05-20 11:04:00 Esther [facility] BASIC METABOLIC PANEL 2021-05-20 11:04[facility] ([facility], K, CL, CO2, Medical Branch GLUCOSE, BUN, CREATININE, CA) CBC WITH DIFF 2021-05-20 11:04:00 Marcelina Che [facility] TROPONIN I 2021-05-20 01:56:00 Neida Irving [facility] XR CHEST 1 VW 2021-05-20 00:01:05 Neida Irving [facility] LIPASE 2021-05-19 23:49:00 Neida Irving [facility] MAGNESIUM 2021-05-19 23:49:00 Neida Irving [facility] TROPONIN I 2021-05-19 23:49:00 Neida Irving [facility] COMP. METABOLIC PANEL 2021-05-19 23:49:00 Neida Irving [facility] ([id number]) [facility] CBC WITH DIFF 2021-05-19 23:49:00 Neida Irving [facility] PROTHROMBIN TIME / INR 2021-05-19 23:49:00 Neida Irving [facility] ACTIVATED PARTIAL 2021-05-19 23:49:00 Neida Irving [facility] THRMPLAS [facility] COVID-19 (ID NOW RAPID 2021-05-19 23:49:00 Neida Irving [facility] TESTING) [facility] CONSENT/REFUSAL FOR 2021-05-19 23:01:42 Doctor Unassigned, No [facility] DIAGNOSIS AND TREATMENT Name Medical Branch URINALYSIS 2020-09-14 02:42:00 Diana Berg [facility] XR CHEST 1 VW 2020-09-14 02:30:21 Diana Berg [facility] LIPASE 2020-09-14 02:21:00 Diana Berg [facility] TROPONIN I 2020-09-14 02:21:00 Diana Berg [facility] HEPATIC FUNCTION PANEL 2020-09-14 02:21:00 Diana Berg [facility] ([id number]) (ALB,T.PRO,BILI Medical Branch T,BU/BC,ALT,AST,ALK PHOS) BASIC METABOLIC PANEL 2020-09-14 02:21:00 Diana [facility] [place] (NA, K, CL, CO2, Medical Branch GLUCOSE, BUN, CREATININE, CA) CBC WITH DIFF 2020-09-14 02:21:00 Diana Berg [facility] N-TERMINAL PRO-BNP 2020-09-14 02:21:00 Diana Berg [facility] sity [facility] COVID-19 (ID NOW RAPID 2020-09-14 02:21:00 Diana [facility] [place] [facility] NOTICE OF PRIVACY 2020-09-14 02:00:22 Doctor Unassigned, No [facility] CONSENT/REFUSAL FOR 2020-09-14 01:58:28 Doctor Unassigned, No [facility] [place] [facility]REAT[facility] Name [facility] HEPATIC FUNCTION PANEL 2019-07-28 00:55:00 Mariangel Ortega [facility] [place] ([id number]) (ALB,T.PRO,BILI Medical Branch T,BU/BC,ALT,AST,ALK PHOS) BASIC METABOLIC PANEL 2019-07-28 00:55:00 Mariangel Ortega [facility] [place] (NA, K, CL, CO2, Medical Branch GLUCOSE, BUN, CREATININE, CA) CBC WITH DIFFERENTIAL 2019-07-28 00:55:00 Mariangel Ortega Un iversity of [facility] RAPID STREP SCREEN FOR 2019-07-28 00:55:00 Mariangel [facility] A [facility] ADC,CLC OR LCC ONLY - 2019-07-28 00:55:00 Mariangel Ortega [facility] [place] INFLUENZA A & B DIRECT Medical B ranch ANTIGEN CBC WITH DIFFERENTIAL 2019-07-28 00:55:00 Mariangel Ortega Un iversity of [facility] XR CHEST 2 VW 2019-07-28 00:28:40 Mariangel Ortega [facility] CONSENT/REFUSAL FOR 2019-07-27 23:47:18 Doctor Unassigned, No [facility] [place] DIAGNOSIS AND TREATMENT Name Medical Branch LIPASE 2019-03-11 19:53:00 Sherrill Connor Lejunior o f [facility] HEPATIC FUNCTION PANEL 2019-03-11 19:53:00 Sherrill Connor [facility] ([id number]) (ALB,T.PRO,BILI [facility] T,BU/BC,ALT,AST,ALK PHOS) BASIC METABOLIC PANEL 2019-03-11 19:53:00 Sherrill Connor [facility] (NA, K, CL, CO2, [facility] Branch GLUCOSE, BUN, CREATININE, CA) CBC WITH DIFFERENTIAL 2019-03-11 19:53:00 Sherrill Connor [facility] PROTHROMBIN TIME / INR 2019-03-11 19:53:00 Sherrill Connor [facility] ACTIVATED PARTIAL 2019-03-11 19:53:00 Sherrill Connor [facility] THRMPLAS [facility] NOTICE OF PRIVACY 2019-03-11 18:56:54 Doctor Unassigned, No [facility] PRACTICES Name [facility] Encounters Start End Encounter Admission Attending Care Care Encounter Source Date/Time Date/Time Type Type Clinicians Facility Department ID 2021-05-06 Emergency [facility] [id number] Univers 05:05:13 ity of [facility] 2022-08-24 2022-08-24 Urgent Susan Lee [facility] [id number] Univers 09:40:00 10:00:00 Care Unknown, Attending HEALTH [id number] ity [facility] 4.2.7.2.686 Amandeep as JOCELYN?BLEA [phone] Or lennie [address] MEDICAL OFFICE BUILDING 2022-08-24 2022-08-24 Outpatient R TAMIKO [facility] [id number] Univers 09:40:00 09:40:00 SUSAN ity of [facility] 2022-08-24 2022-08-24 Orders Doctor SUSHIL [id number] Univers 00:00:00 00:00:00 Only Unassigned, KIRK [id number] [facility] [id number] Amandeep as [phone] [address] 2022-01-11 2022-01-11 Laboratory Only, Ang Db Test [facility] 1.2.8 40.114 [id number] Univers 13:15:00 13:30:00 Only Monik Charles [facility] [id number] ity [facility] 4.2.7.2.686 Amandeep as JOCELYN?BLEA [phone] [address] MEDICAL OFFICE BUILDING 2022-01-11 2022-01-11 [facility] [id number] Univers 13:15:00 13:24:38 MONIK itradha [facility] 2022-01-07 2022-01-07 Emergency X [facility] ERT [id number] Univers 18:26:00 21:08:00 ALEX garcia [facility] 2022-01-07 2022-01-07 Emergency [place], [facility] [id number] Univers 18:26:00 21:08:00 Alex DENNISON [id number] ity of [facility] 4.2.7.2.686 [facility] [id number] [address] 2022-01-06 2022-01-06 Emergency X [facility] ERT [id number] Univers 15:31:00 16:32:00 SHERRILL [facility] 2022-01-06 2022-01-06 Emergency [facility] [id number] Univers 15:31:00 16:32:00 Sherrill DENNISON [id number] i ty of [place] 4.2.7.2.686 [facility] [id number] [address] 2021-09-01 2021-09-01 Emergency X [facility] ERT [id number] Univers 17:59:00 19:56:00 CAMERON delaney [facility] 2021-09-01 2021-09-01 Emergency [facility] 1.2.840.114 [id number] Univers 17:59:00 19:56:00 Cameron DENNISON 350.1.13.10 i ty of [facility] 4.2.7.2.686 [facility] [id number] [address] 2021-09-01 2021-09-01 Orders Doctor SUSHIL 1.2.840.114 [id number] Univers 00:00:00 00:00:00 Only Unassigned, KIRK [id number] ity [place] [facility] 4.2.7.2.686 Amandeep as [phone] [facility] 009 [place] 2021-08-08 2021-08-08 SUSHIL Coe 1.2.840.114 [id number] Univers 00:00:00 00:00:00 (Out) Nirmala Ballard KIRK 350.1.13.10 it y of HOSPITAL 4.2.7.2.686 Amandeep as [id number] [facility] 019 Branch 2021-08-07 2021-08-07 Emergency X [facility] ERT [id number] Univers 09:58:00 11:43:00 DARIUS ity [facility] 2021-08-07 2021-08-07 Emergency [facility] [id number] Univers 09:58:00 11:43:00 Darius DENNISON 350.1.13.10 i ty of [place] 4.2.7.2.686 [facility] [id number] [address] 2021-08-07 2021-08-07 Orders Doctor SUSHIL 1.2.840.114 [id number] Univers 00:00:00 00:00:00 Only Unassigned, KIRK [id number] [place]y [place] [facility] 4.2.7.2.686 Amandeep as [phone] [address] 2021-06-29 2021-06-29 Emergency X [facility] ERT [id number] Univers 16:04:00 19:33:00 [facility] 2021-06-29 2021-06-29 [facility] 1.2.840.114 [id number] Univers 16:04:00 19:33:00 Jose Alejandro DENNISON 350.1.13.10 i ty of [place] 4.2.7.2.686 [facility] [id number] [address] 2021-05-19 2021-05-20 [facility] [id number] Univers 17:04:00 17:03:00 MARCELINA delaney [facility] 2021-05-19 2021-05-20 Emergency Neida Irving [facility] 1.2.840. 114 [id number] Univers 17:04:00 17:03:00 Marcelina Che 350.1.13.10 ity of [place] 4.2.7.2.686 [facility] [id number] [address] 2020-09-16 2020-09-16 Outpatient R LUIS MANUEL [facility] [id number] Univers 10:20:00 10:20:00 NICOLE itradha [facility] 2020-09-16 2020-09-16 Laboratory Lab, [facility] 1.2.840.114 [id number] 09:44:15 10:04:15 Only Fam Pob I Health 350.1.13.10 [place] 4.2.7.2.686 Professio [id number] [place] [address] Office [facility] 2020-09-16 2020-09-16 Laboratory Lab, [facility] Fam Pob I [facility] 1.2. 840.114 [id number] Univers 09:44:15 10:04:15 Only Nicole Issa 350.1.13.10 ity of [place] 4.2.7.2.686 Amandeep as Professio [phone] Or dical [address] Office [facility] 2020-09-13 2020-09-13 [facility] 1.2.840.114 [id number] 20:05:00 22:24:00 Diana Dennison 350.1.13.10 [place] 4.2.7.2.686 [place] [id number] [facility] 2020-09-13 2020-09-13 [facility] 1.2.840.114 [id number] Univers 20:05:00 22:24:00 Diana Dennison 350.1.13.10 ity of [place] 4.2.7.2.686 [facility] [id number] [address] 2019-07-27 2019-07-27 Emergency Shannon [facility] 1.2.840.114 [id number] 18:07:12 20:13:00 Mariangel Dennison 350.1.13.10 [place] 4.2.7.2.686 [place] [id number] 2019-07-27 2019-07-27 Emergency Shannon [facility] 1.2.840.114 [id number] [facility] 18:07:12 20:13:00 Mariangel Dennison 350.1.13.10 ity of [place] 4.2.7.2.686 [facility] [id number] [address] 2019-07-27 2019-07-27 Orders Doctor SUSHIL 1.2.840.114 [id number] 00:00:00 00:00:00 Only Unassigned, KIRK 350.1.13.10 [place] [facility] 4.2.7.2.68 [id number] 2019-07-27 2019-07-27 Orders Doctor SUSHIL 1.2.840.114 [id number] Univers 00:00:00 00:00:00 Only Unassigned, KIRK 350.1.13.10 ity of [place] [facility] [address] [place] [id number] 2019-03-11 2019-03-11 [facility] [id number] 14:05:54 16:45:00 Sherrill Dennison 350.1.13.10 [place] 4.2.7.2.686 [place] [id number] [facility] 2019-03-11 2019-03-11 [facility] [id number] [facility] 14:05:54 16:45:00 Sherrill Dennison 350.1.13.10 i ty of [place] 4.2.7.2.686 [facility] [id number] [address] Results Test Description Test Time Test Comments Results Result Comments Source POCT MOLECULAR FLU 2022-08-24 16:02:31 Test Item Value Reference Range Interpretation Comme nts POCT Molecular FluA (test code = 62842-2) Negative Negative POCT Molecular FluB (test code = 65304-5) Negative Negative Lab Interpretation (test code = 53227-9) Normal [facility] ANTIGEN (BINAX NOW)2022-08-24 15:52:00 Test Item Value Reference Range Interpretation Comments POCT SARS-COV-2 ANTIGEN (test Not Detected Not Detected code = 70173-9) On board controls acceptable Yes with C Line (test code = 3574) Lab Interpretation (test code = Normal 88077-5) [facility]. METABOLIC PANEL (65562)2021-06-29 23:10:56 Test Item Value Reference Range Interpretation Comments NA (test code = 137 mmol/L 135-145 6346866025) K (test code = 3.9 mmol/L 3.5-5.0 3006321673) CL (test code = 102 mmol/L 98-108 9099075985) CO2 TOTAL (test code = 27 mmol/L 23-31 9953530562) AGAP (test code = 2-16 7275568261) BUN (test code = 10 mg/dL 7-23 1857894282) GLUCOSE (test code = 137 mg/dL 70-110 H 9020912470) CREATININE (test code = 0.69 mg/dL 0.50-1.04 4508908927) TOTAL BILI (test code = 0.5 mg/dL 0.1-1.7 3600182788) CALCIUM (test code = 9.2 mg/dL 8.6-10.6 4395801096) T PROTEIN (test code = 7.7 g/dL 6.3-8.2 5124180402) ALBUMIN (test code = 4.9 g/dL 3.5-5.0 0694990598) ALK PHOS (test code = 73 U/L 34-122 9957870859) ALTv (test code = 15 U/L 5-35 1742-6) AST(SGOT) (test code = 21 U/L 13-40 2441123269) eGFR (test code = mL/min/1.73m2 6477648980) MADISYN (test code = MADISYN) Association of [...] tests). Lab Interpretation Abnormal (test code = 90415-1) [facility] [id number] 22:59:27 Test Item Value Reference Interpretation Comments Range TROPONIN I (test 0.001 ng/mL See_Comment [Automated code = 2009835913) message] The system which generated this result [...] biotin. Lab Interpretation Normal (test code = 99898-6) [facility] 22:49:29 Test Item Value Reference Range Interpretation Comments LIPASE (test code = 2727436178) 57 U/L 0-220 Lab Interpretation (test code = Normal 40972-2) [facility] WITH [id number] 22:29:28 Test Item Value Reference Range Interpretation [...] RDW-SD (test code = 43.4 fL 39.0-49.9 61324-2) RDW-CV (test code = 12.7 % 12.0-15.5 788-0) PLT (test code = See_Comment [Automated 777-3) message] The sy stem which generated this result transmitted reference range : 166 - 358 10*3/ ?L. The reference r aiden was not used to interpret this result as normal/abnormal . MPV (test code = 10.7 fL 9.5-12.9 89908-1) NRBC/100 WBC (test See_Comment [Automat ed code = 9064381786) message] The system which generated this result transmitted reference range : 0.0 - 10.0 /100 WBCs. The refer ence range was not u sed to interpret th is result as normal/abnormal . NRBC x10^3 (test code <0.01 See_Comment [Auto mated = 9654770058) message] The s ystem which generated this result transmitted reference range : 10*3/?L. The reference range was not used to interpret this result as normal/abnormal . GRAN MAT (NEUT) % 68.6 % (test code = 770-8) IMM GRAN % (test code 0.40 % = 5702007832) LYMPH % (test code = 22.9 % 736-9) MONO % (test code = 6.3 % 5905-5) EOS % (test code = 1.6 % 713-8) BASO % (test code = 0.2 % 706-2) GRAN MAT x10^3(ANC) 6.89 10*3/uL 1.88-7.09 (test code = 1555025109) IMM GRAN x10^3 (test 0.04 10*3/uL 0.00-0.06 code = 9035099623) LYMPH x10^3 (test code 2.30 10*3/uL 1.32-3.29 = 731-0) MONO x10^3 (test code 0.63 10*3/uL 0.33-0.92 = 742-7) EOS x10^3 (test code = 0.16 10*3/uL 0.03-0.39 711-2) BASO x10^3 (test code <0.03 0.01-0.07 = 704-7) Lab Interpretation Abnormal (test code = 45898-1) [facility]2021-05-20 17:33:00 Test Item Value Reference Range Interpretation Comments POCT GLU (test code = 7888709548) 80 mg/dL 70-110 Lab Interpretation (test code = Normal 86432-7) [facility] [id number] 12:36:17 Test Item Value Reference Interpretation Comments Range TROPONIN I (test 0.002 ng/mL See_Comment [Automated code = 4523627681) message] The system which generated this result [...] biotin. Lab Interpretation Normal (test code = 91207-0) [facility] Metabolic Panel (NA, K, CL, CO2, GLUCOSE, BUN, CREATININE, CA)2021-05-20 12:31:20 Test Item Value Reference Range Interpretation Comments NA (test code = 138 mmol/L 135-145 1894330250) K (test code = 4.2 mmol/L 3.5-5.0 6855841902) CL (test code = 106 mmol/L 98-108 4171190336) CO2 TOTAL (test code = 25 mmol/L 23-31 3685294336) AGAP (test code = 2-16 6605428629) BUN (test code = 12 mg/dL 7-23 4324615506) GLUCOSE (test code = 146 mg/dL 70-110 H 4566291825) CREATININE (test code = 0.62 mg/dL 0.50-1.04 4596439489) CALCIUM (test code = 10.0 mg/dL 8.6-10.6 6861642507) eGFR (test code = mL/min/1.73m2 4466309360) MADISYN (test code = MADISYN) Association of [...] tests). Lab Interpretation Abnormal (test code = 28683-1) [facility] with [id number] 11:49:32 Test Item Value Reference Range Interpretation Comments WBC (test code = See_Comment [Automated 8337-2) message] The sy stem which generated this result transmitted reference range : 4.30 - 11.10 10*3/?L. The reference range was not used to interpret this result as normal/abnormal . RBC (test code = See_Comment L [Automated 319-8) message] The sy stem which generated this [...] RDW-SD (test code = 40.3 fL 39.0-49.9 87279-7) RDW-CV (test code = 11.9 % 12.0-15.5 L 788-0) PLT (test code = See_Comment [Automated 007-3) message] The sy stem which generated this result transmitted reference range : 166 - 358 10*3/ ?L. The reference r aiden was not used to interpret this result as normal/abnormal . MPV (test code = 11.3 fL 9.5-12.9 02461-9) NRBC/100 WBC (test See_Comment [Automat ed code = 8485906258) message] The system which generated this result transmitted reference range : 0.0 - 10.0 /100 WBCs. The refer ence range was not u sed to interpret th is result as normal/abnormal . NRBC x10^3 (test code <0.01 See_Comment [Auto mated = 6906111508) message] The s ystem which generated this result transmitted reference range : 10*3/?L. The reference range was not used to interpret this result as normal/abnormal . GRAN MAT (NEUT) % 59.9 % (test code = 770-8) IMM GRAN % (test code 0.50 % = 5297561921) LYMPH % (test code = 30.0 % 736-9) MONO % (test code = 6.4 % 5905-5) EOS % (test code = 2.9 % 713-8) BASO % (test code = 0.3 % 706-2) GRAN MAT x10^3(ANC) 3.72 10*3/uL 1.88-7.09 (test code = 7640236588) IMM GRAN x10^3 (test 0.03 10*3/uL 0.00-0.06 code = 0812763923) LYMPH x10^3 (test code 1.86 10*3/uL 1.32-3.29 = 731-0) MONO x10^3 (test code 0.40 10*3/uL 0.33-0.92 = 742-7) EOS x10^3 (test code = 0.18 10*3/uL 0.03-0.39 711-2) BASO x10^3 (test code <0.03 0.01-0.07 = 704-7) Lab Interpretation Abnormal (test code = 21894-7) [facility] [id number] 02:24:28 Test Item Value Reference Interpretation Comments Range TROPONIN I (test 0.003 ng/mL See_Comment [Automated code = 2204612475) message] The system which generated this result [...] biotin. Lab Interpretation Normal (test code = 88920-3) [facility]14 00:25:00 Test Item Value Reference Range Interpretation Comments MAGNESIUM (test code = 4961874793) 1.9 mg/dL 1.7-2.4 Lab Interpretation (test code = Normal 18267-7) [facility] [id number] 00:20:03 Test Item Value Reference Interpretation Comments Range TROPONIN I (test 0.002 ng/mL See_Comment [Automated code = 9510700325) message] The system which generated this result [...] biotin. Lab Interpretation Normal (test code = 43398-8) [facility]. METABOLIC PANEL (34831)2021-05-20 00:09:00 Test Item Value Reference Range Interpretation Comments NA (test code = 139 mmol/L 135-145 5065156302) K (test code = 3.9 mmol/L 3.5-5.0 8365102803) CL (test code = 101 mmol/L 98-108 1417711792) CO2 TOTAL (test code = 28 mmol/L 23-31 6932348882) AGAP (test code = 2-16 3860219735) BUN (test code = 13 mg/dL 7-23 6107937171) GLUCOSE (test code = 143 mg/dL 70-110 H 0972335375) CREATININE (test code = 0.68 mg/dL 0.50-1.04 7352090002) TOTAL BILI (test code = 0.4 mg/dL 0.1-1.7 5459424382) CALCIUM (test code = 10.4 mg/dL 8.6-10.6 4339357358) T PROTEIN (test code = 8.0 g/dL 6.3-8.2 6262043296) ALBUMIN (test code = 5.0 g/dL 3.5-5.0 6586808859) ALK PHOS (test code = 93 U/L 34-122 4170562178) ALTv (test code = 21 U/L 5-35 1742-6) AST(SGOT) (test code = 31 U/L 13-40 7873087853) eGFR (test code = mL/min/1.73m2 7156450650) MADISYN (test code = MADISYN) Association of [...] tests). Lab Interpretation Abnormal (test code = 52407-0) [facility] 00:08:20 Test Item Value Reference Range Interpretation Comments LIPASE (test code = 2646392885) 66 U/L 0-220 Lab Interpretation (test code = Normal 07331-3) [facility]2021-[facility]14 00:06:19 Test Item Value Reference Range Interpretation Comments APTT Patient (test See_Comment [Automat ed code = 3173-2) message] The system which generated this result transmitted reference range : 23 - 38 Seconds . The reference range was not used to interpr et this result as normal/abnormal . MADISYN (test code = MADISYN) The [facility] patient population mean normal value for aPTT is 30 seconds. Lab Interpretation Normal (test code = 91288-6) [facility] CentralPROTHROMBIN TIME / [id number] 00:04:19 Test Item Value Reference Range Interpretation [...] tions. Lab Interpretation (test Normal code = 32133-4) [facility] WITH [id number] 23:55:39 Test Item Value Reference Range Interpretation [...] RDW-SD (test code = 40.4 fL 39.0-49.9 44047-5) RDW-CV (test code = 11.9 % 12.0-15.5 L 788-0) PLT (test code = See_Comment [Automated 777-3) message] The sy stem which generated this result transmitted reference range : 166 - 358 10*3/ ?L. The reference r aiden was not used to interpret this result as normal/abnormal . MPV (test code = 11.0 fL 9.5-12.9 90974-5) NRBC/100 WBC (test See_Comment [Automat ed code = 2773939404) message] The system which generated this result transmitted reference range : 0.0 - 10.0 /100 WBCs. The refer ence range was not u sed to interpret th is result as normal/abnormal . NRBC x10^3 (test code <0.01 See_Comment [Auto mated = 6438603189) message] The s ystem which generated this result transmitted reference range : 10*3/?L. The reference range was not used to interpret this result as normal/abnormal . GRAN MAT (NEUT) % 53.4 % (test code = 770-8) IMM GRAN % (test code 0.60 % = 3122475093) LYMPH % (test code = 36.2 % 736-9) MONO % (test code = 6.4 % 5905-5) EOS % (test code = 3.3 % 713-8) BASO % (test code = 0.1 % 706-2) GRAN MAT x10^3(ANC) 3.58 10*3/uL 1.88-7.09 (test code = 4061600575) IMM GRAN x10^3 (test 0.04 10*3/uL 0.00-0.06 code = 0355428977) LYMPH x10^3 (test code 2.43 10*3/uL 1.32-3.29 = 731-0) MONO x10^3 (test code 0.43 10*3/uL 0.33-0.92 = 742-7) EOS x10^3 (test code = 0.22 10*3/uL 0.03-0.39 711-2) BASO x10^3 (test code <0.03 0.01-0.07 = 704-7) Lab Interpretation Abnormal (test code = 77617-0) [facility] Central[facility]inalysis2021-[facility]11 03:27:11 Test Item Value Reference Range Interpretation Comments APPEARANCE (test code = Clear Clear 9054443408) COLOR (test code = Straw Yellow A 1426081652) PH (test code = 4.8-8.0 3162169596) SP GRAVITY (test code = 1.003-1.030 4625567203) GLU U QUAL (test code = 500 mg/dL Normal A 8362262821) BLOOD (test code = Negative Negative 2626120612) KETONES (test code = Negative Negative 3831965614) PROTEIN (test code = Negative Negative 2887-8) UROBILIN (test code = Normal Normal 6781120406) BILIRUBIN (test code = Negative Negative 6237039474) NITRITE (test code = Negative Negative 1857819619) LEUK KEVEN (test code = 25/uL Negative A 5170427706) RBC/HPF (test code = See_Comment [Autom ated message] 7161169735) The system [employer] generated this result transmit zoila reference range : 0 - 3 HPF. The refe rence range was not u sed to interpret th is result as normal/abnormal . WBC/HPF (test code = See_Comment [Autom ated message] 9227936836) The system [employer] generated this result transmit zoila reference range : 0 - 5 HPF. The refe rence range was not u sed to interpret th is result as normal/abnormal . BACTERIA (test code = Negative Negative 6843428869) MUCOUS (test code = Slight Negative LPF A 2141071791) SQ EPITH (test code = HPF 9356258491) Lab Interpretation (test Abnormal code = 40310-1) [facility] CentralTroponin [id number] 03:00:28 Test Item Value Reference Range Interpretation Comments TROPONIN I (test <0.012 See_Comment [Automated code = 4518012881) message] The system which generated this result [...] ? Lab Interpretation Normal (test code = 96512-6) [facility] CentralN-TERMINAL [id number] 02:57:10 Test Item Value Reference Range Interpretation Comments NT-proBNP (test code 25 pg/mL See_Comment [Autom ated = 8810127439) message] The system which generated this result transmitted reference range : <=125. The reference range was not used to interpret this result as normal/abnormal . MADISYN (test code = MADISYN) Biotin has been reported to cause a negative bias, interpret results relative to patient's use of biotin. Lab Interpretation Normal (test code = 57548-1) [facility] Metabolic Panel (NA, K, CL, CO2, GLUCOSE, BUN, CREATININE, CA)2020-09-14 02:48:49 Test Item Value Reference Range Interpretation Comments NA (test code = 135 mmol/L 135-145 8104078747) K (test code = 3.6 mmol/L 3.5-5.0 7419917967) CL (test code = 101 mmol/L 98-108 1205338578) CO2 TOTAL (test code = 23 mmol/L 23-31 7908419475) AGAP (test code = 2-16 9466774335) BUN (test code = 10 mg/dL 7-23 4115922481) GLUCOSE (test code = 296 mg/dL 70-110 H 1205108400) CREATININE (test code = 0.62 mg/dL 0.50-1.04 0452705255) CALCIUM (test code = 9.7 mg/dL 8.6-10.6 6408487308) eGFR Calculation mL/min/1.73m2 (Non-) (test code = 4420839411) eGFR Calculation mL/min/1.73m2 () (test code = 2282470880) MADISYN (test code = MADISYN) Association of [...] tests). Lab Interpretation Abnormal (test code = 33313-3) [facility] (ALB, T.PRO, BILI T, BU/BC, ALT, AST, ALK PHOS)2020-09-14 02:48:48 Test Item Value Reference Range Interpretation Comments TOTAL BILI (test code = 7244155110) 0.4 mg/dL 0.1-1.1 BILI UNCON (test code = 1528736094) 0.4 mg/dL 0.1-1.1 BILI CONJ (test code = 9547651129) 0.0 mg/dL 0.0-0.3 T PROTEIN (test code = 8675288293) 7.7 g/dL 6.3-8.2 ALBUMIN (test code = 9599648446) 5.0 g/dL 3.5-5.0 ALK PHOS (test code = 4242764345) 78 U/L 34-122 ALTv (test code = 1742-6) 19 U/L 5-35 AST(SGOT) (test code = 0866254103) 25 U/L 13-40 Lab Interpretation (test code = Normal 59838-1) [facility] CentralLipase [id number] 02:48:48 Test Item Value Reference Range Interpretation Comments LIPASE (test code = 3199182180) 38 U/L 0-220 Lab Interpretation (test code = Normal 16307-3) [facility] Central[facility]OVID[facility] (ID NOW RAPID TESTING)2020-09-14 02:36:29 Test Item Value Reference Range Interpretation Comments SARS-CoV-2 Rapid ID NOW Positive Not Detected A (test code = 36500-5) MADISYN (test code = MADISYN) ID NOW COVID-19 Assay is an isothermal nucleic acid amplification test intended for the qualitative detection of nucleic acid from SARS-CoV-2 viral RNA in nasopharyngeal ([employer]EF[employer]IST) specimens. It is used under Emergency Use [...] indicated. Lab Interpretation Abnormal (test code = 72603-0) [facility] with [id number] 02:30:06 Test Item Value Reference Range Interpretation Comments WBC (test code = See_Comment [Automated message] 6690-2) The system [employer] generated this result transmitted ref erence range: 4.30 - 1 1.10 10*3/?L. The re ference range was not u sed to interpret this result as normal/abnor mal. RBC (test code = See_Comment [Automated message] 789-8) The system [employer] generated this result transmitted ref erence range: [...] RDW-SD (test code 41.8 fL 39.0-49.9 = 33973-6) RDW-CV (test code 12.8 % 12.0-15.5 = 788-0) PLT (test code = See_Comment [Automated message] 777-3) The system whic h generated this result transmitted ref erence range: 166 - 35 8 10*3/?L. The re ference range was not u sed to interpret this result as normal/abnor mal. MPV (test code = 11.2 fL 9.5-12.9 85831-5) NRBC/100 WBC (test See_Comment [Automat ed message] code = 6051976536) The syste m which generated this result transmitted ref erence range: 0.0 - 10 .0 /100 WBCs. The refer ence range was not u sed to interpret this result as normal/abnor mal. NRBC x10^3 (test <0.01 See_Comment [Automated message] code = 5476515746) The syste m which generated this result transmitted ref erence range: 10*3/?L. The reference range was not used to interpr et this result as normal/abnormal . GRAN MAT (NEUT) % 54.0 % (test code = 770-8) IMM GRAN % (test 0.70 % code = 0019740598) LYMPH % (test code 36.2 % = 736-9) MONO % (test code 6.0 % = 5905-5) EOS % (test code = 2.8 % 713-8) BASO % (test code 0.3 % = 706-2) GRAN MAT 3.13 10*3/uL 1.88-7.09 x10^3(ANC) (test code = 8233231634) IMM GRAN x10^3 0.04 10*3/uL 0.00-0.06 (test code = 5292841745) LYMPH x10^3 (test 2.10 10*3/uL 1.32-3.29 code = 731-0) MONO x10^3 (test 0.35 10*3/uL 0.33-0.92 code = 742-7) EOS x10^3 (test 0.16 10*3/uL 0.03-0.39 code = 711-2) BASO x10^3 (test <0.03 0.01-0.07 code = 704-7) [facility] WITH [id number] 01:35:00 Test Item Value Reference Range Interpretation [...] RDW-SD (test code = 40.8 fL 39-49.9 37920-6) RDW-CV (test code = 12.5 % 12-15.5 788-0) PLT (test code = See_Comment [Automated 777-3) message] The sy stem which generated this result transmitted reference range : 166 - 358 10*3/ ?L. The reference r aiden was not used to interpret this result as normal/abnormal . MPV (test code = 11.0 fL 9.5-12.9 94472-1) IPF % (test code = 5.7 % 1.3-7.7 Platelet count 1119524189) measured by fluorescence method. NRBC/100 WBC (test See_Comment [Automat ed code = 1722830468) message] The system which generated this result transmitted reference range : 0.0 - 10.0 /100 WBCs. The refer ence range was not u sed to interpret th is result as normal/abnormal . NRBC x10^3 (test code <0.01 See_Comment [Auto mated = 6762988071) message] The s ystem which generated this result transmitted reference range : 10*3/?L. The reference range was not used to interpret this result as normal/abnormal . GRAN MAT (NEUT) % 60.2 % (test code = 770-8) IMM GRAN % (test code 1.60 % = 3767065019) LYMPH % (test code = 29.4 % 736-9) MONO % (test code = 6.2 % 5905-5) EOS % (test code = 2.3 % 713-8) BASO % (test code = 0.3 % 706-2) GRAN MAT x10^3(ANC) 5.31 10*3/uL 1.88-7.09 (test code = 1044518374) IMM GRAN x10^3 (test 0.14 10*3/uL 0-0.06 H code = 7203442541) LYMPH x10^3 (test code 2.59 10*3/uL 1.32-3.29 = 731-0) MONO x10^3 (test code 0.55 10*3/uL 0.33-0.92 = 742-7) EOS x10^3 (test code = 0.20 10*3/uL 0.03-0.39 711-2) BASO x10^3 (test code 0.03 10*3/uL 0.01-0.07 = 704-7) Lab Interpretation Abnormal (test code = 58043-9) [facility],CLC OR [facility] ONLY - INFLUENZA A & B DIRECT [id number] 01:26:00 Test Item Value Reference Range Interpretation Comments Influenza A (test code = 24181-5) Negative Negative Influenza B (test code = 59232-2) Negative Negative Lab Interpretation (test code = Normal 11557-3) [facility] Metabolic Panel (NA, K, CL, CO2, GLUCOSE, BUN, CREATININE, CA)2019-07-28 01:21:00 Test Item Value Reference Range Interpretation Comments NA (test code = 137 mmol/L 135-145 4312438706) K (test code = 3.8 mmol/L 3.5-5 6590905037) CL (test code = 100 mmol/L 98-108 7088566652) CO2 TOTAL (test code = 24 mmol/L 23-31 7754677986) AGAP (test code = 2-16 0932294592) BUN (test code = 13 mg/dL 7-23 3153215460) GLUCOSE (test code = 245 mg/dL 70-110 H 6363076986) CREATININE (test code = 0.49 mg/dL 0.5-1.04 L 2491575286) CALCIUM (test code = 9.8 mg/dL 8.6-10.6 1264678457) eGFR Calculation mL/min/1.73m2 (Non-) (test code = 2508355449) eGFR Calculation mL/min/1.73m2 () (test code = 7285816445) MADISYN (test code = MADISYN) Association of [...] tests). Lab Interpretation Abnormal (test code = 19277-4) [facility] (ALB, T.PRO, BILI T, BU/BC, ALT, AST, ALK PHOS)2019-07-28 01:21:00 Test Item Value Reference Range Interpretation Comments TOTAL BILI (test code = 0372759760) 0.3 mg/dL 0.1-1.1 BILI UNCON (test code = 7383266146) 0.1 mg/dL 0.1-1.1 BILI CONJ (test code = 1303835040) 0.0 mg/dL 0-0.3 T PROTEIN (test code = 2333493731) 8.2 g/dL 6.3-8.2 ALBUMIN (test code = 9190705476) 5.0 g/dL 3.5-5 ALK PHOS (test code = 3894542303) 121 U/L 34-122 ALTv (test code = 1742-6) 33 U/L 5-35 AST(SGOT) (test code = 8811244833) 30 U/L 13-40 Lab Interpretation (test code = Normal 98744-4) [facility] CentralRAPID STREP SCREEN FOR GROUP [id number] 01:19:00 Test Item Value Reference Range Interpretation Comments Streptococcus pyogenes (group A) Negative Negative antigen (test code = 34420-9) Lab Interpretation (test code = Normal 93709-8) [facility] CentralXR CHEST 2 [id number] 00:53:20Impression: No acute cardiopulmonary changes. Small sized [...] reviewed this study and agree withthe above report.[facility] (NA, K, CL, CO2, GLUCOSE, BUN, CREATININE, CA)2019-03-11 20:52:00 Test Item Value Reference Range Interpretation Comments NA (test code = 141 mmol/L 135-145 1305890823) K (test code = 3.6 mmol/L 3.5-5 8307144850) CL (test code = 104 mmol/L 98-108 4312490962) CO2 TOTAL (test code = 24 mmol/L 23-31 4863427244) AGAP (test code = 2-16 2687204891) BUN (test code = 19 mg/dL 7-23 9965306738) GLUCOSE (test code = 161 mg/dL 70-110 H 2921732408) CREATININE (test code = 0.51 mg/dL 0.5-1.04 0422819826) CALCIUM (test code = 9.4 mg/dL 8.6-10.6 4846981594) eGFR Calculation mL/min/1.73m2 (Non-) (test code = 8978855460) eGFR Calculation mL/min/1.73m2 () (test code = 6507613112) MADISYN (test code = MADISYN) Association of [...] tests). Lab Interpretation Abnormal (test code = 25703-9) [facility] (ALB, T.PRO, BILI T, BU/BC, ALT, AST, ALK PHOS)2019-03-11 20:52:00 Test Item Value Reference Range Interpretation Comments TOTAL BILI (test code = 3038860428) 0.6 mg/dL 0.1-1.1 BILI UNCON (test code = 1209279306) 0.5 mg/dL 0.1-1.1 BILI CONJ (test code = 4499554189) 0.0 mg/dL 0-0.3 T PROTEIN (test code = 5809976409) 7.7 g/dL 6.3-8.2 ALBUMIN (test code = 6647634793) 4.9 g/dL 3.5-5 ALK PHOS (test code = 6119971169) 61 U/L 34-122 ALT(SGPT) (test code = 7975483745) 26 U/L 9-51 AST(SGOT) (test code = 5642578099) 28 U/L 13-40 Lab Interpretation (test code = Normal 14489-7) [facility] CentralLipase [id number] 20:52:00 Test Item Value Reference Range Interpretation Comments LIPASE (test code = 0930976071) 22 U/L 0-220 Lab Interpretation (test code = Normal 05261-6) [facility] CentralaPTT2019-09-05 20:40:00 Test Item Value Reference Range Interpretation Comments APTT Patient (test See_Comment L [Automat ed code = 3173-2) message] The system which generated this result transmitted reference range : 23 - 38 Seconds . The reference range was not used to interpr et this result as normal/abnormal . MADISYN (test code = MADISYN) The [facility] patient population mean normal value for aPTT is 30 seconds. Lab Interpretation Abnormal (test code = 16363-5) [facility] CentralProthrombin Time (PT) / [id number] 20:38:00 Test Item Value Reference Range Interpretation [...] tions. Lab Interpretation (test Normal code = 18961-6) [facility] WITH [id number] 20:33:00 Test Item Value Reference Range Interpretation Comments WBC (test code = See_Comment [Automated 5190-2) message] The sy stem which generated this result transmitted reference range : 4.30 - 11.10 10*3/?L. The reference range was not used to interpret this result as normal/abnormal . RBC (test code = See_Comment [Automated 309-8) message] The sy stem which generated this [...] RDW-SD (test code = 44.3 fL 39-49.9 44600-5) RDW-CV (test code = 12.9 % 12-15.5 788-0) PLT (test code = See_Comment [Automated 777-3) message] The sy stem which generated this result transmitted reference range : 166 - 358 10*3/ ?L. The reference r aiden was not used to interpret this result as normal/abnormal . MPV (test code = 10.9 fL 9.5-12.9 76110-5) NRBC/100 WBC (test See_Comment [Automat ed code = 9049596325) message] The system which generated this result transmitted reference range : 0.0 - 10.0 /100 WBCs. The refer ence range was not u sed to interpret th is result as normal/abnormal . NRBC x10^3 (test code <0.01 See_Comment [Auto mated = 0317016645) message] The s ystem which generated this result transmitted reference range : 10*3/?L. The reference range was not used to interpret this result as normal/abnormal . GRAN MAT (NEUT) % 86.3 % (test code = 770-8) IMM GRAN % (test code 0.50 % = 9639621746) LYMPH % (test code = 8.8 % 736-9) MONO % (test code = 4.0 % 5905-5) EOS % (test code = 0.2 % 713-8) BASO % (test code = 0.2 % 706-2) GRAN MAT x10^3(ANC) 8.24 10*3/uL 1.88-7.09 H (test code = 5666236550) IMM GRAN x10^3 (test 0.05 10*3/uL 0-0.06 code = 7982892871) LYMPH x10^3 (test code 0.84 10*3/uL 1.32-3.29 L = 731-0) MONO x10^3 (test code 0.38 10*3/uL 0.33-0.92 = 742-7) EOS x10^3 (test code = <0.03 0.03-0.39 L 711-2) BASO x10^3 (test code <0.03 0.01-0.07 = 704-7) Lab Interpretation Abnormal (test code = 99401-3) [facility]"
--- NOTE | 2022-12-28 11:40 | RAD REPORT ---
EXAM DESCRIPTION: RAD - Foot Left 3 View - 12/28/2022 11:25 am CLINICAL HISTORY: Left Foot pain FINDINGS: No fracture or dislocation is seen. Osteoporosis
--- NOTE | 2022-12-28 11:43 | ER ---
Nurse's Notes [facility] – [place], [place] Name: Dolores Pérez Age: 62 yrs Sex: Female : 1960 Arrival Date: 12/28/2022 Time: 10:33 Bed 12 Private MD: Diagnosis: Sprain of toe Presentation: 12/28 10:56 Chief complaint: Patient states: twisted her left 2nd toe yesterday , now has pain to iw the toe. Coronavirus screen: At this time, the client does not indicate any symptoms associated with coronavirus-19. Ebola Screen: Patient negative for fever greater than or equal to 101.5 degrees Fahrenheit, and additional compatible Ebola Virus Disease symptoms Patient denies exposure to infectious person. Patient denies travel to an Ebola-affected area in the 21 days before illness onset. No symptoms or risks identified at this time. Initial Sepsis Screen: Does the patient meet any 2 criteria? No. Patient's initial sepsis screen is negative. Does the patient have a suspected source of infection? No. Patient's initial sepsis screen is negative. Risk Assessment: Do you want to hurt yourself or someone else? Patient reports no desire to harm self or others. 10:56 Method Of Arrival: Wheelchair iw 10:56 Acuity: AARON 4 iw 10:56 Onset of symptoms was December 27, 2029. iw Triage Assessment: 12:45 General: Appears in no apparent distress. Behavior is calm, cooperative, appropriate db for age. Pain: Complains of pain in left foot. Musculoskeletal: Swelling present in left foot. 12:46 Injury Description: Left 2nd toe inside rotation with ankle. db Historical: - Allergies: 10:57 NSAIDS; iw 10:57 peanuts; iw 10:57 Prednisone; iw 10:57 Sulfa (Sulfonamide Antibiotics); iw - PMHx: 10:57 Asthma; COPD; diabetes mellitus; High Cholesterol; Hypertension; Hypothyroidism; iw Transient cerebral ischemia; - Immunization history:: Adult Immunizations up to date. Screenin:44 [facility] ED Fall Risk Assessment (Adult) History of falling in the last 3 months, db including since admission No falls in past 3 months (0 pts) Confusion or Disorientation No (0 pts) Intoxicated or Sedated No (0 pts) Impaired Gait No (0 pts) Mobility Assist Device Used Yes (1 pt). Abuse screen: Denies threats or abuse. Nutritional screening: No deficits noted. Tuberculosis screening: No symptoms or risk factors identified. Vital Signs: 10:56 BP 127 / 76; Pulse 75; Resp 16; Temp 98.4; Pulse Ox 98% ; Pain 8/10; iw 12:44 BP 124 / 80; Pulse 77; Resp 18; Pulse Ox 98% on R/A; db 10:56 Pain Scale: Adult iw ED Course: 10:39 Patient arrived in ED. im 10:41 Esperanza Harrison FNP-C is PHCP. snw 10:41 Feng Tian MD is Attending Physician. snw 10:57 Triage completed. iw 10:57 Arm band placed on. iw 10:58 Shira Madrigal, RN is Primary Nurse. iw 11:27 Foot Left 3 View XRAY In Process Unspecified. EDMS 11:31 Wound care: ice pack applied. tm3 12:45 No provider procedures requiring assistance completed. db 12:46 Patient did not have IV access during this emergency room visit. db Administered Medications: 12:10 Drug: HYDROcodone-acetaminophen PO 5 mg-325 mg 1 tabs Route: PO; os 12:44 Follow up: Response: No adverse reaction; Pain is decreased db Outcome: 11:42 Discharge ordered by MD. snw 12:45 Discharged to home ambulatory. db 12:45 Condition: improved 12:45 Discharge instructions given to patient, Instructed on discharge instructions, Demonstrated understanding of instructions, follow-up care. 12:46 Patient left the ED. iw Signatures: Dispatcher [employer] EDMS Aaron Toney tm3 Esperanza Harrison FNP-C NUCLEAR CARDIOLOGY TECHNOLOGIST-Csnw Shira Madrigal RN RN iw Callie Berg RN RN db Osmin Ríos RN RN os Jenn Brady im Corrections: (The following items were deleted from the chart) 10:58 10:56 Pulse 75bpm; Resp 16bpm; Pulse Ox 98%; Temp 98.4F; iw iw
--- NOTE | 2022-12-28 11:43 | EDPHYS ---
Physician Documentation [facility] Name: Dolores Pérez Age: 62 yrs Sex: Female : 1960 Arrival Date: 12/28/2022 Time: 10:33 Bed 12 Private MD: MICHEAL Physician Feng Tian HPI: 12/28 11:02 This 62 yrs old Female presents to ER via Wheelchair with complaints of Foot Injury. snw 11:02 The patient presents with pain, that is acute. The complaints affect the dorsum of left snw foot. Context: The problem was sustained at home, resulted from the patient tripping, the patient can fully bear weight, the patient is able to ambulate. Onset: The symptoms/episode began/occurred suddenly, yesterday. Treatment prior to arrival includes: no previous treatment. Severity of symptoms: At their worst the symptoms were mild. The patient has not experienced similar symptoms in the past. Saw Dr. Ma with BP medication change. Historical: - Allergies: 10:57 NSAIDS; iw 10:57 peanuts; iw 10:57 Prednisone; iw 10:57 Sulfa (Sulfonamide Antibiotics); iw - PMHx: 10:57 Asthma; COPD; diabetes mellitus; High Cholesterol; Hypertension; Hypothyroidism; iw Transient cerebral ischemia; - Immunization history:: Adult Immunizations up to date. ROS: 11:02 Constitutional: Negative for fever, chills, and weight loss, Eyes: Negative for injury, snw pain, redness, and discharge, ENT: Negative for injury, pain, and discharge, Neck: Negative for injury, pain, and swelling, Cardiovascular: Negative for chest pain, palpitations, and edema, Respiratory: Negative for shortness of breath, cough, wheezing, and pleuritic chest pain, Abdomen/GI: Negative for abdominal pain, nausea, vomiting, diarrhea, and constipation, Back: Negative for injury and pain, : Negative for injury, bleeding, discharge, and swelling, MS/Extremity: Positive for injury, no deformity, Skin: Negative for injury, rash, and discoloration, Neuro: Negative for headache, weakness, numbness, tingling, and seizure, Psych: Negative for depression, anxiety, suicide ideation, homicidal ideation, and hallucinations. Exam: 11:01 Constitutional: This is a well developed, well nourished patient who is awake, alert, snw and in no acute distress. Head/Face: Normocephalic, atraumatic. Eyes: Pupils equal round and reactive to light, extra-ocular motions intact. Lids and lashes normal. Conjunctiva and sclera are non-icteric and not injected. Cornea within normal limits. Periorbital areas with no swelling, redness, or edema. ENT: Nares patent. No nasal discharge, no septal abnormalities noted. Tympanic membranes are normal and external auditory canals are clear. Oropharynx with no redness, swelling, or masses, exudates, or evidence of obstruction, uvula midline. Mucous membranes moist. Neck: Trachea midline, no thyromegaly or masses palpated, and no cervical lymphadenopathy. Supple, full range of motion without nuchal rigidity, or vertebral point tenderness. No Meningismus. Chest/axilla: Normal chest wall appearance and motion. Nontender with no deformity. No lesions are appreciated. Cardiovascular: Regular rate and rhythm with a normal S1 and S2. No gallops, murmurs, or rubs. Normal PMI, no JVD. No pulse deficits. Respiratory: Lungs have equal breath sounds bilaterally, clear to auscultation and percussion. No rales, rhonchi or wheezes noted. No increased work of breathing, no retractions or nasal flaring. Abdomen/GI: Soft, non-tender, with normal bowel sounds. No distension or tympany. No guarding or rebound. No evidence of tenderness throughout. Back: No spinal tenderness. No costovertebral tenderness. Full range of motion. Skin: Warm, dry with normal turgor. Normal color with no rashes, no lesions, and no evidence of cellulitis. Neuro: Awake and alert, GCS 15, oriented to person, place, time, and situation. Cranial nerves II-XII grossly intact. Motor strength 5/5 in all extremities. Sensory grossly intact. Cerebellar exam normal. Normal gait. Psych: Awake, alert, with orientation to person, place and time. Behavior, mood, and affect are within normal limits. 11:01 Musculoskeletal/extremity: Extremities: grossly normal except: noted in the dorsum of left foot: swelling, tenderness. Vital Signs: 10:56 BP 127 / 76; Pulse 75; Resp 16; Temp 98.4; Pulse Ox 98% ; Pain 8/10; iw 12:44 BP 124 / 80; Pulse 77; Resp 18; Pulse Ox 98% on R/A; db 10:56 Pain Scale: Adult iw MDM: 10:59 Patient medically screened. snw 11:41 Differential diagnosis: dislocation, closed fracture, contusion, tendonitis, sprain. snw Data reviewed: vital signs, nurses notes. Counseling: I had a detailed discussion with the patient and/or guardian regarding: the historical points, exam findings, and any diagnostic results supporting the discharge/admit diagnosis, the need for outpatient follow up, for definitive care, to return to the emergency department if symptoms worsen or persist or if there are any questions or concerns that arise at home. Special discussion: Based on the history and exam findings, there is no indication for further emergent testing or inpatient evaluation. I discussed with the patient/guardian the need to see the primary care provider for further evaluation of the symptoms. 12/28 11:01 Order name: Foot Left 3 View XRAY; Complete Time: 11:40 snw 12/28 11:44 Order name: Post-op shoe snw Administered Medications: 12:10 Drug: HYDROcodone-acetaminophen PO 5 mg-325 mg 1 tabs Route: PO; os 12:44 Follow up: Response: No adverse reaction; Pain is decreased db Disposition Summary: 12/28/22 11:42 Discharge Ordered Location: Home snw Condition: Stable snw Diagnosis - Sprain of toe snw Followup: snw - With: Emergency Department - When: As needed - Reason: Worsening of condition Followup: snw - With: Private Physician - When: 2 - 3 days - Reason: Recheck today's complaints, Continuance of care, Re-evaluation by your physician Discharge Instructions: - Discharge Summary Sheet snw - Foot Sprain snw - How to Use a Cast Shoe snw Forms: - Medication Reconciliation Form snw - Thank You Letter snw - Antibiotic Education snw - Prescription Opioid Use snw Signatures: Dispatcher [employer] Esperanza Sagastume FNP-C HYDRAULIC PRESS OPERATOR-Csnw Shira Madrigal RN RN iw Callie Berg RN RN db Osmin Ríos RN RN os
[2022-12-28] MEDS ORDERED: HYDROCODONE/APAP 5/325 MG TAB ONE (12:16)
[2022-12-28 12:51] VITALS: TEMP 98.4; O2SAT 98
[2022-12-28 12:53] VITALS: BP 124/80
== END 2022-12-28 12:46 | disposition home or self-care (01) ==
LOC: ER 10:33
DX: S93.505A Unspecified sprain of left lesser toe(s), initial encounter (principal)
CPT/HCPCS: 99284

== ENCOUNTER 2023-01-12 10:24 | Observation (INO) | payer OTHER ==
--- OUTSIDE RECORDS SUMMARY | 2023-01-12 10:30 | XMS REPORT | Continuity of Care Document ---
:1960 Author Organization [facility] t Address [address] [place] [address] Care Team Providers Name Role Phone PAULINA DUNHAM Primary Care Physician Unavailable Susan Rodriguez Attending Clinician Unknown, Attending Attending Clinician Unavailable SUSAN LEE Attending Clinician Unavailable Doctor Unassigned, [place] Attending Clinician Unavailable Only, Ang Db Test [...] Attending Clinician Diana Berg DO Attending Clinician Shannon CEE, Mariangel Caballero Attending Clinician ALEX OCONNELL Admitting Clinician Unavailable CAMERON DALTON Admitting Clinician Unavailable DARIUS LEDESMA Admitting Clinician Unavailable JOSE ALEJANDRO CASTANO Admitting Clinician Unavailable MARCELINA CHE Admitting Clinician Unavailable Marcelina Che MD Admitting Clinician Payers Payer Name Policy Type Policy Number Effective Date Expiration Date Teodora FALK II [id number] 2016 00:00:00 Problems Condition Condition Condition Status Onset Resolution Last Treating Co mments Source Name Details Category Date Date Treatment Clinician Date Primary Primary Disease Active 2020-07 Univers hypertensi hypertensi 1-14 it y of on on 00:00: Medical Branch Other Other Disease Active 2020-07 [...] ALBA DRUG Active Anaphylaxis Unive rs INGREDI - ity of 00:00: [place] 00 Medical Branch Alba Propensi Active Anaphylaxis Uni [...] 00 Medical Branch NSAIDS Drug Active Hives 2017- Univers (NON-RYAN Class 4-10 ity of ROIDAL 00:00: [place] ANTI-INF 00 Medical LAMMATOR Branch Y DRUG) SULFA Drug Active Rash Univers (SULFONA Class 4-10 ity of MIDE 00:00: [place] ANTIBIOT 00 Medical ICS) Branch Aspirin Propensi Active Rash Univers ty to 4-10 ity of adverse 00:00: [place] reaction 00 Medical s Branch Nsaids Propensi Active Hives 2017- Univers (Non-Ryan ty to 4-10 ity of roidal adverse 00:00: [place] Anti-Inf reaction 00 Medica l lammator s Branch y Drug) Sulfa Propensi Active Rash Univers (Sulfona ty to 4-10 ity of mide adverse 00:00: [place] Antibiot reaction 00 Medica l ics) s Branch Sulfa Propensi Active Rash Univers (Sulfona ty to 4-10 ity of mide adverse 00:00: [place] Antibiot reaction 00 Medica l ics) s Branch Social History Social Habit Start Date Stop Date Quantity Comments Source Exposure to 2022-08-14 2022-08-24 Not sure [facility] SARS-CoV-2 00:00:00 09:35:00 [place] Medical (event) Branch Tobacco use and 2022-08-24 2022-08-24 Smokeless tobacco Un iversity of exposure 00:00:00 00:00:00 non-user [facility] Sex Ass[birth year] At [birth year] Universit y of 00:00:00 00:00:00 [facility] Smoking Status Start Date Stop Date Source Never smoked tobacco [facility] Medications Ordered Filled Start Stop Current Ordering Indication Dosage Frequency Signature Comments Components Source Medication Medication Date Date Medication? Clinician (SIG) Name Name chiragphentracy Yes [id number] 5mL Take 5 mL Univers mine-pseudo 2-18 by mouth 4 it y of ephedrine-D 00:00: (four[place] M (BROMFED 00 times Medical DM) 2-30-10 daily as Bran ch mg/5 mL needed for syrup Congestion /Allergies . benzonatate Yes [id number] 100mg Take 1 Univers 100 mg 7-03 capsule by ity of capsule 00:00: mouth 3 [place] 00 (three) Medical times Branch daily as needed for Cough. loratadine Yes [id number] 10mg Take 1 U nivers (CLARITIN) 7-03 tablet by ity of 10 mg 00:00: mouth at [place] tablet 00 bedtime as Medical needed for Branch Allergies. benzonatate Yes [id number] 100mg Take 1 Univers 100 mg 7-03 capsule by ity of capsule 00:00: mouth 3 [place] 00 (three) Medical times Branch daily as needed for Cough. loratadine 0 Yes [id number] 10mg Take 1 U nivers (CLARITIN) 7-03 tablet by ity of 10 mg 00:00: mouth at [place] tablet 00 bedtime as Medical needed for Branch Allergies. benzonatate 0 Yes [id number] 100mg Take 1 Univers 100 mg 7-03 capsule by ity of capsule 00:00: mouth 3 [place] 00 (three) Medical times Branch daily as needed for Cough. loratadine 2-0 Yes [id number] 10mg Take 1 U nivers (CLARITIN) 7-03 tablet by ity of 10 mg 00:00: mouth at [place] tablet 00 bedtime as Medical needed for Branch Allergies. benzonatate 2021-0 Yes [id number] 100mg Take 1 Univers 100 mg 7-03 capsule by ity of capsule 00:00: mouth 3 (three) Medical times Branch daily as needed for Cough. loratadine 2-0 Yes [id number] 10mg Take 1 U nivers (CLARITIN) 7-03 tablet by ity of 10 mg 00:00: mouth at [place] tablet 00 bedtime as Medical needed for Branch Allergies. benzonatate 2021-0 Yes [id number] 100mg Take 1 Univers 100 mg 7-03 capsule by ity of capsule 00:00: mouth (three) Medical times Branch daily as needed for Cough. loratadine 2021-0 Yes [id number] 10mg Take 1 U nivers (CLARITIN) 7-03 tablet by ity of 10 mg 00:00: mouth at [place] tablet 00 bedtime as Medical needed for Branch Allergies. benzonatate 2021-0 Yes [id number] 100mg Take 1 Univers 100 mg 2-01 capsule by ity of capsule 00:00: mouth (three) Medical times Branch daily as needed for Cough. benzonatate 2021-0 Yes [id number] 100mg Take 1 Univers 100 mg 2-01 capsule by ity of capsule 00:00: mouth (three) Medical times Branch daily as needed for Cough. benzonatate 2021-0 Yes [id number] 100mg Take 1 Univers 100 mg 2-01 capsule by ity of capsule 00:00: mouth (three) Medical times Branch daily as needed for Cough. benzonatate 2021-0 Yes [id number] 100mg Take 1 Univers 100 mg 2-01 capsule by ity of capsule 00:00: mouth (three) Medical times Branch daily as needed for Cough. benzonatate 2-0 Yes [id number] 100mg Take 1 Univers 100 mg 2-01 capsule by ity of capsule 00:00: mouth (three) Medical times Branch daily as needed for Cough. benzonatate 2022-0 Yes [id number] 100mg Take 1 Univers 100 mg 2-01 capsule by ity of capsule 00:00: mouth 3 [place] 00 (three) Medical times Branch daily as needed for Cough. benzonatate 0 Yes [id number] 100mg Take 1 Univers 100 mg 2-01 capsule by ity of capsule 00:00: mouth 3 [place] 00 (three) Medical times Branch daily as needed for Cough. benzonatate 0 Yes [id number] 100mg Take 1 Univers 100 mg 2-01 capsule by ity of capsule 00:00: mouth 3 [place] 00 (three) Medical times Branch daily as needed for Cough. benzonatate 0 Yes [id number] 100mg Take 1 Univers 100 mg 2-01 capsule by ity of capsule 00:00: mouth 3 [place] 00 (three) Medical times Branch daily as needed for Cough. ampicillin- 2020-07- No 3g 3 g, IV Un brice sulbactam 08-31- Piggyback, ity of (UNASYN) 3 01:00: 00:47 ONCE, 1 [place] as g in NaCl 00 :00 dose, On Medica l 0.9% (NS) Fri Branch 100 mL 06/29/21 MINI-BAG at 1900, Administer over 30 Minutes, 100 mL
R varsha for Anti-Infec tive: Documented Infection< br>Documen zoila Infection Site: Abdominal< br>Dura tion of Therapy: Other (see Comments) iopamidol 2020-07- No [id number] 120mL 120 mL, Univers (ISOVUE 08-31 12-24 Intravenou ity o f 370-500 mL) 00:15: 23:08 s, ONCE, 1 [place] injection 00 :00 dose, On Medica l 120 mL Fri Branch 06/29/21 at 1815, Routine amoxicillin 2020-07- No [id number] 1{tbl} Take 1 Univers -clavulanat 2-24 -04 [...] Indication s: acute pain ondansetron 2020-07- No [id number] 4mg Take 1 Univers 4 mg tablet 2-24 12-30 tablet by it y of 00:00: 05:59 mouth [place] 00 :00 every 8 Medical (eight) Branch hours for 5 days. atorvastati 2020-07 Yes 10mg 10 mg, Univ ers n (LIPITOR) 1-15 Oral, QHS, it y of tablet 10 03:00: First dose [place] mg 00 on [facility] 05/20/21 Branch at 2100, Until Discontinu ed, Routine atorvastati 2020-07 Yes 10mg Take 10 mg Univers n 10 mg 1-14 by mouth ity of tablet 17:23: at [place] bedtime. Medical Branch spironolact 2020-07 Yes 25mg [...] by mouth ity of tablet 17:23: at [place] bedtime. Medical Branch spironolact 2020-07 Yes 25mg [...] by ity of (METFORMIN 17:23: mouth at [place] as ORAL) 01 bedtime. Medical Branch enoxaparin 2020-07 Yes 40mg 40 mg, Unive rs (LOVENOX) 1-14 Subcutaneo ity of injection 15:00: us, DAILY, [place] 40 mg 00 First dose Medical on [facility] 05/20/21 at 0900, Until Discontinu ed, Routine clopidogreL 2020-07 Yes 75mg 75 mg, Univ ers (PLAVIX) 1-14 Oral, QAM, ity o f tablet 75 15:00: First dose [place] mg 00 on [facility] 05/20/21 Branch at 0900, Until Discontinu ed, Routine ALPRAZolam 2020-07 Yes .5mg 0.5 mg, Univ ers (XANAX) 1-14 Oral, ity of tablet 0.5 15:00: DAILY, [place] mg 00 First dose Medical on [facility] 05/20/21 at 0900, Until Discontinu ed, Routine spironolact 2020-07 Yes 25mg 25 mg, Univ ers one 1-14 Oral, BID, ity of (ALDACTONE) 14:00: First dose [place] tablet 25 00 on [facility] mg 05/20/21 Branch at 0800, Until Discontinu ed, Routine Sliding 2020-07 Yes Subcutaneo Univ ers Scale 1-14 us, AC, ity of Insulin-Reg 13:30: First dose [place] ular + [facility]sbg [facility] Branch at 0730, Until Discontinu ed, Routine levothyroxi 2020-07 Yes 100ug 100 mcg, U nivers ne 1-14 Oral, ity of (SYNTHROID) 12:00: QAM-0600, [place] tablet 100 00 First dose Med ical mcg on [facility] 05/20/21 at 0600, Until Discontinu ed, Routine pantoprazol 2020-07 Yes 40mg 40 mg, Univ ers e 1-14 Oral, ity of (PROTONIX) 06:30: DAILY, [place] EC tablet 00 First dose Medi hermelindo 40 mg (after Branch last modificati on) on [place] 05/20/21 at 0030, Until Discontinu ed cyclobenzap 2020-07 Yes 10mg 10 mg, Univ ers rine 1-14 Oral, ity of (FLEXERIL) 06:12: TIDPRN, [place] tablet 10 13 Starting Medica l mg on [facility] 05/20/21 at 0012, Until Discontinu ed, Routine, Muscle Spasms, leg pain polyethylen 2020-07 Yes 17g 17 g, Unive rs e glycol 1-14 Oral, ity of 3350 powder 06:04: [id number], [place] 17 g 16 Starting Medical on [facility] 05/20/21 at 0004, Until Discontinu ed, Routine, Constipati on glucagon 2020-07 Yes 1mg 1 mg, Univers (GLUCAGEN -14 Intramuscu ity of DIAGNOSTIC 05:29: lar, PRN, [place] KIT) 29 Starting Medical injection 1 on [facility] 05/19/21 at 2329, Until Discontinu ed, JEFFREY, Blood Glucose < or = 70 mg/dL and patient is unable to swallow or has mental changes. dextrose 50 2020-07 Yes 25mL 25 mL, Univ ers % in water 14 Slow IV ity of (D50W) 05:29: Push, PRN, [place] injection 29 Starting Medica l 25 mL on [facility] 05/19/21 at 2329, Until Discontinu ed, JEFFREY, Blood Glucose < or = 70 mg/dL and patient is unable to swallow or has mental status changes. ondansetron 2020-07 Yes 4mg 4 mg, Slow Univers (ZOFRAN 1-14 IV Push, ity of (PF)) 05:29: Q6HPRN, [place] injection 4 21 Starting Medi hermelindo mg on [facility] Branch 05/19/21 at 2329, Until Discontinu ed, Routine, Nausea and Vomiting (N/V) morpHINE 2020-07 No 2mg 2 mg, Slow Un brice injection 2 14 11-15 IV Push, ity of mg 05:29: 05:28 Q4HPRN, [place] 11 :11 Starting Medical on [facility] Branch 05/19/21 at 2329, Until 05/20/21 at 2328, Routine, Pain (scale 7-10), Chest pain traMADoL 2020-07- No 50mg 50 mg, Univer s (ULTRAM) 07-20 1116 Oral, ity of tablet 50 05:29: 05:28 Q8HPRN, [place] mg 08 :08 Starting Medical on [facility] Branch 05/19/21 at 2329, Until 05/21/21 at 2328, Routine, Pain (scale 4-6) acetaminoph 2020-07 Yes 650mg 650 mg, Un brice en 14 Oral, ity of (TYLENOL) 05:29: Q6HPRN, [place] tablet 650 05 Starting Medic al mg on [facility] Branch 05/19/21 at 2329, Until Discontinu ed, Routine, Pain (scale 1-3) omeprazole 2020-07- No 20mg Take 20 mg Univers 20 mg 07-19 by mouth ity of capsule 23:30: 00:00 daily. [place] 33 :00 [facility] guaiFENesin 2020- No 100mg 100 mg, U nivers 100 mg/5 mL 09-14 Oral, ity of solution 05:00: 16:59 ONCE, 1 [place] 100 mg 00 :00 dose, Fri Medical 09/13/20 at Branch 2300, Routine ketorolac 2020- No 30mg 30 mg, Unive rs (TORADOL) 09-1411 Slow IV ity of injection 03:30: 02:27 Push, [place] 30 mg 00 :00 ONCE, 1 Medical dose, [facility] 09/13/20 at 2130, JEFFREY
Fa culty member approving Restricted medication : DIANA BERG benzonatate Yes [id number] 100mg Take 1 Univers 100 mg 3-10 capsule by ity of capsule 00:00: mouth 3 [place] 00 (three) Medical times [place] daily as needed for Cough. benzonatate Yes [id number] 100mg Take 1 Univers 100 mg 3-10 capsule by ity of capsule 00:00: mouth 3 [place] 00 (three) Medical times Branch daily as needed for Cough. benzonatate 2020- No [id number] 100mg Take 1 Univers 100 mg 09-13- capsule by ity of capsule 00:00: 00:00 [...] mg/5 mL 07/27/19 at Branch solution 10 193, JEFFREY mL codeine-gua 2019-0 Yes [id number] 10mL Take 10 mL Univers ifenesin -21 by mouth ity of 10-100 mg/5 00:00: every 6 [place] as mL solution 00 (six) Medical hours as Branch needed for Cough. albuterol 2020-0 Yes [id number] 2.5mg Inhale 3 Univers 2.5 mg /3 1-21 mL every 4 ity of mL (0.083 00:00: (four) [place] %) 00 hours as Medical nebulizer needed for Bran ch solution Wheezing or Shortness of Breath. May also nebulize one extra every 6 hours. albuterol 2020-0 Yes [id number] 2.5mg Inhale 3 Univers 2.5 mg /3 1-21 mL every 4 ity of mL (0.083 00:00: (four) [place] %) 00 hours as Medical nebulizer needed for Bran ch solution Wheezing or Shortness of Breath. May also nebulize one extra every 6 hours. albuterol 2020-0 Yes [id number] 2.5mg Inhale 3 Univers 2.5 mg /3 1-21 mL every 4 ity of mL (0.083 00:00: (four) [place] %) 00 hours as Medical nebulizer needed for Bran ch solution Wheezing or Shortness of Breath. May also nebulize one extra every 6 hours. albuterol 2020-0 Yes [id number] 2.5mg Inhale 3 Univers 2.5 mg /3 1-21 mL every 4 ity of mL (0.083 00:00: (four) [place] %) 00 hours as Medical nebulizer needed for Bran ch solution Wheezing or Shortness of Breath. May also nebulize one extra every 6 hours. albuterol 2020-0 Yes [id number] 2.5mg Inhale 3 Univers 2.5 mg /3 1-21 mL every 4 ity of mL (0.083 00:00: (four) [place] %) 00 hours as Medical nebulizer needed for Bran ch solution Wheezing or Shortness of Breath. May also nebulize one extra every 6 hours. albuterol 2020-0 Yes [id number] 2.5mg Inhale 3 Univers 2.5 mg /3 1-21 mL every 4 ity of mL (0.083 00:00: (four) [place] %) 00 hours as Medical nebulizer needed for Bran ch solution Wheezing or Shortness of Breath. May also nebulize one extra every 6 hours. albuterol 2020-0 Yes [id number] 2.5mg Inhale 3 Univers 2.5 mg /3 1-21 mL every 4 ity of mL (0.083 00:00: (four) [place] %) 00 hours as Medical nebulizer needed for Bran ch solution Wheezing or Shortness of Breath. May also nebulize one extra every 6 hours. albuterol 2020-0 Yes [id number] 2.5mg Inhale 3 Univers 2.5 mg /3 1-21 mL every 4 ity of mL (0.083 00:00: (four) [place] %) 00 hours as Medical nebulizer needed for Bran ch solution Wheezing or Shortness of Breath. May also nebulize one extra every 6 hours. albuterol 2020-0 Yes [id number] 2.5mg Inhale 3 Univers 2.5 mg /3 1-21 mL every 4 ity of mL (0.083 00:00: (four) [place] %) 00 hours as Medical nebulizer needed for Bran ch solution Wheezing or Shortness of Breath. May also nebulize one extra every 6 hours. albuterol 2020-0 Yes [id number] 2.5mg Inhale 3 Univers 2.5 mg /3 1-21 mL every 4 ity of mL (0.083 00:00: (four) [place] %) 00 hours as Medical nebulizer needed for Bran ch solution Wheezing or Shortness of Breath. May also nebulize one extra every 6 hours. albuterol 2020-0 Yes [id number] 2.5mg Inhale 3 Univers 2.5 mg /3 1-21 mL every 4 ity of mL (0.083 00:00: (four) [place] %) 00 hours as Medical nebulizer needed for Bran ch solution Wheezing or Shortness of Breath. May also nebulize one extra every 6 hours. albuterol 2020-0 Yes [id number] 2.5mg Inhale 3 Univers 2.5 mg /3 1-21 mL every 4 ity of mL (0.083 00:00: (four) [place] %) 00 hours as Medical nebulizer needed for Bran ch solution Wheezing or Shortness of Breath. May also nebulize one extra every 6 hours. albuterol 2020-0 Yes [id number] 2.5mg Inhale 3 Univers 2.5 mg /3 1-21 mL every 4 ity of mL (0.083 00:00: (four) [place] %) 00 hours as Medical nebulizer needed for Bran ch solution Wheezing or Shortness of Breath. May also nebulize one extra every 6 hours. albuterol 2020-0 Yes [id number] 2.5mg Inhale 3 Univers 2.5 mg /3 1-21 mL every 4 ity of mL (0.083 00:00: (four) [place] %) 00 hours as Medical nebulizer needed for Bran ch solution Wheezing or Shortness of Breath. May also nebulize one extra every 6 hours. albuterol 2020-0 Yes [id number] 2.5mg Inhale 3 Univers 2.5 mg /3 1-21 mL every 4 ity of mL (0.083 00:00: (four) [place] %) 00 hours as Medical nebulizer needed for Bran ch solution Wheezing or Shortness of Breath. May also nebulize one extra every 6 hours. codeine-gua 2020-0 2020- No [id number] 10mL Take 10 mL Univers ifenesin 1-21 [...] 03/11/19 at 1430, JEFFREY dicyclomine 2018-0 Yes [id number] 10mg Take 1 Univers (BENTYL) 10 9-05 capsule by it y of mg capsule 00:00: mouth 4 [place] 00 (four) Medical times Branch daily. ondansetron 2018-0 Yes [id number] 4mg Take 1 Univers 4 mg 9-05 tablet by ity of disintegrat 00:00: mouth [place] ing tablet 00 every 4 Medica l (four) Branch hours as needed for Nausea and Vomiting (N/V). dicyclomine 2019-0 Yes [id number] 10mg Take 1 Univers (BENTYL) 10 9-05 capsule by it y of mg capsule 00:00: mouth 4 [place] 00 (four) Medical times Branch daily. ondansetron 2019-0 Yes [id number] 4mg Take 1 Univers 4 mg 9-05 tablet by ity of disintegrat 00:00: mouth [place] ing tablet 00 every 4 Medica l (four) Branch hours as needed for Nausea and Vomiting (N/V). dicyclomine 2019-0 Yes [id number] 10mg Take 1 Univers (BENTYL) 10 9-05 capsule by it y of mg capsule 00:00: mouth 4 [place] 00 (four) Medical times Branch daily. ondansetron 2019-0 Yes [id number] 4mg Take 1 Univers 4 mg 9-05 tablet by ity of disintegrat 00:00: mouth [place] ing tablet 00 every 4 Medica l (four) Branch hours as needed for Nausea and Vomiting (N/V). dicyclomine 2020- No [id number] 10mg Take 1 Univers (BENTYL) 10 03-11 03-10 capsule by i ty of mg capsule 00:00: 00:00 mouth 4 [place] as 00 :00 (four) Medical times Branch daily. ondansetron 2020- No [id number] 4mg Take 1 Univers 4 mg 9-05 [...] as needed for Pain (scale 7-10). atorvastati 2018-0 Yes 10mg Take 10 mg Univers n 10 mg 4-10 by mouth ity of tablet 14:40: at [place] [address] bedtime. Medical Branch omeprazole 2018 Yes 20mg Take 20 mg U nivers 20 mg 4-10 by mouth ity of capsule 14:40: daily. [place] [address] Medical Branch atorvastati 2018-0 Yes 10mg Take 10 mg Univers n 10 mg 4-10 by mouth ity of tablet 14:40: at [place] [address] bedtime. Medical Branch omeprazole 2018-0 Yes 20mg Take 20 mg U nivers 20 mg 4-10 by mouth ity of capsule 14:40: daily. [place] [address] Medical Branch atorvastati 2018-0 Yes 10mg Take 10 mg Univers n 10 mg 4-10 by mouth ity of tablet 14:40: at [place] [address] bedtime. Medical Branch omeprazole 2017-0 Yes 20mg Take 20 mg U nivers 20 mg 4-10 by mouth ity of capsule 14:40: daily. [place] [address] Medical Branch atorvastati 2017-0 Yes 10mg Take 10 mg Univers n 10 mg 4-10 by mouth ity of tablet 14:40: at [place] [address] bedtime. Medical Branch omeprazole 2017-0 Yes 20mg Take 20 mg U nivers 20 mg 4-10 by mouth ity of capsule 14:40: daily. [place] [address] Medical Branch atorvastati 2017-0 Yes 10mg Take 10 mg Univers n 10 mg 4-10 by mouth ity of tablet 14:40: at [place] [address] bedtime. Medical Branch omeprazole 2017-0 Yes 20mg Take 20 mg U nivers 20 mg 4-10 by mouth ity of capsule 14:40: daily. [place] [address] Medical Branch levothyroxi 2018-0 Yes TAKE 1 Univ ers ne 125 mcg 4-10 TABLET BY ity of tablet 00:00: MOUTH [place] 00 EVERY Medical MORNING Branch levothyroxi 2018-0 Yes TAKE 1 Univ ers ne 125 mcg 4-10 TABLET BY ity of tablet 00:00: MOUTH [place] EVERY Medical MORNING Branch levothyroxi 2018-0 Yes TAKE 1 Univ ers ne 125 mcg 4-10 TABLET BY ity of tablet 00:00: MOUTH [place] 00 EVERY Medical MORNING Branch levothyroxi 2018-0 Yes TAKE 1 Univ ers ne 125 mcg 4-10 TABLET BY ity of tablet 00:00: MOUTH [place] EVERY Medical MORNING Branch levothyroxi 2018-0 Yes TAKE 1 Univ ers ne 125 mcg 4-10 TABLET BY ity of tablet 00:00: MOUTH [place] EVERY Medical MORNING Branch levothyroxi 2018-0 Yes TAKE 1 Univ ers ne 125 mcg 4-10 TABLET BY ity of tablet 00:00: MOUTH [place] EVERY Medical MORNING Branch levothyroxi 2018-0 Yes [...] 4-10 TABLET BY ity of tablet 00:00: EVERY Medical MORNING Branch levothyroxi 2018-0 Yes [...] TWICE A Medica l DAY Branch SYMBICORT 1- No TAKE 2 Unive rs 160-4.5 3-28 [...] TWICE A Medical DAY Branch diltiazem 0 1- No TAKE 1 Unive rs 60 mg [...] 00 EVERY Medical MORNING Branch losartan 25 2017-0 Yes TAKE 1 Univ ers mg tablet 2-16 TABLET BY ity o f 00:00: MOUTH [place] 00 EVERY Medical MORNING Branch losartan 25 2017-0 1- No TAKE 1 Uni vers mg tablet 2-16 11-13 TABLET BY ity of 00:00: 00:00 MOUTH [place] 00 :00 EVERY Medical MORNING Branch clopidogrel 2017-0 Yes TAKE 1 Univ ers 75 mg [...] [place] 00 EVERY Medical MORNING Branch clopidogrel 2017-0 Yes TAKE 1 Univ ers 75 mg 2-06 TABLET BY ity of tablet 00:00: MOUTH [place] 00 EVERY Medical MORNING Branch clopidogrel 2017-0 Yes TAKE 1 Univ ers 75 mg 2-06 TABLET BY ity of tablet 00:00: MOUTH 00 EVERY Medical MORNING Branch clopidogrel 2018-0 Yes TAKE 1 Univ ers 75 mg 2-06 TABLET BY ity of tablet 00:00: MOUTH [place] 00 EVERY Medical MORNING Branch clopidogrel 2018-0 Yes TAKE 1 Univ ers 75 mg 2-06 TABLET BY ity of tablet 00:00: MOUTH 00 EVERY Medical MORNING Branch clopidogrel 2018-0 Yes TAKE 1 Univ ers 75 mg 2-06 TABLET BY ity of tablet 00:00: MOUTH [place] 00 EVERY Medical MORNING Branch clopidogrel 2018-0 Yes TAKE 1 Univ ers 75 mg 2-06 TABLET BY ity of tablet 00:00: MOUTH 00 EVERY Medical MORNING Branch clopidogrel 2018-0 Yes TAKE 1 Univ ers 75 mg 2-06 TABLET BY ity of tablet 00:00: MOUTH [place] 00 EVERY Medical MORNING Branch clopidogrel 2018-0 Yes TAKE 1 Univ ers 75 mg 2-06 TABLET BY ity of tablet 00:00: MOUTH [place] 00 EVERY Medical MORNING Branch clopidogrel 2018-0 Yes TAKE 1 Univ ers 75 mg 2-06 TABLET BY ity of tablet 00:00: MOUTH [place] 00 EVERY Medical MORNING Branch clopidogrel 2018-0 Yes TAKE 1 Univ ers 75 mg 2-06 TABLET BY ity of tablet 00:00: MOUTH [place] 00 EVERY Medical MORNING Branch clopidogrel 2018-0 Yes TAKE 1 Univ ers 75 mg 2-06 TABLET BY ity of tablet 00:00: MOUTH [place] 00 EVERY Medical MORNING Branch clopidogrel 2018-0 Yes TAKE 1 Univ ers 75 mg 2-06 TABLET BY ity of tablet 00:00: MOUTH [place] 00 EVERY Medical MORNING Branch clopidogrel 2018-0 Yes TAKE 1 Univ ers 75 mg 2-06 TABLET BY ity of tablet 00:00: MOUTH [place] 00 EVERY Medical MORNING Branch clopidogrel 2018-0 Yes TAKE 1 Univ ers 75 mg 2-06 TABLET BY ity of tablet 00:00: MOUTH [place] 00 EVERY Medical MORNING Branch Vital Signs Vital Name Observation Time Observation Value Comments Source Systolic blood 2022-08-24 15:43:00 135 mm[Hg] Univer sity of pressure [facility] Diastolic blood 2022-08-24 15:43:00 83 mm[Hg] Unive rsity of pressure [facility] Heart rate 2022-08-24 15:43:00 94 /min [facility] of [facility] Body temperature 2022-08-24 15:43:00 36.83 Brittany Univ ersity of [place] [facility] Respiratory rate 2022-08-24 15:43:00 18 /min Univ ers[facility] [place] [facility] Body height 2022-08-24 15:43:00 170.2 cm [facility] [place] [facility] Body weight 2022-08-24 15:43:00 58.968 kg [facility] [place] [facility] BMI 2022-08-24 15:43:00 20.36 kg/m2 [facility] ty [facility] [place] [facility] Oxygen saturation in 2022-08-24 15:43:00 99 /min University of Arterial blood by [facility] Pulse oximetry Branch Systolic blood 2022-01-08 02:02:00 147 mm[Hg] Univer sity of pressure [place] [facility] Diastolic blood 2022-01-08 02:02:00 78 mm[Hg] Unive rsity of pressure [place] [facility] Heart rate 2022-01-08 02:02:00 78 /min [facility]i ty [facility] [place] [facility] Respiratory rate 2022-01-08 02:02:00 18 /min Univ ersity of [place] [facility] Oxygen saturation in 2022-01-08 02:02:00 100 /min University of Arterial blood by [facility] Pulse oximetry Branch Body temperature 2022-01-07 23:24:00 37.17 Brittany Univ ers[facility] [place] [facility] Body weight 2022-01-07 23:24:00 58.968 kg [facility] BMI 2022-01-07 23:24:00 20.36 kg/m2 [facility] Systolic blood 2022-01-06 20:29:00 140 mm[Hg] [facility] Diastolic blood 2022-01-06 20:29:00 106 mm[Hg] [facility] Heart rate 2022-01-06 20:29:00 102 /min [facility] Body temperature 2022-01-06 20:29:00 37.5 Brittany [facility] Respiratory rate 2022-01-06 20:29:00 16 /min [facility] Body height 2022-01-06 20:29:00 170.2 cm [facility] Body weight 2022-01-06 20:29:00 58.968 kg [facility] BMI 2022-01-06 20:29:00 20.36 kg/m2 [facility] Oxygen saturation in 2022-01-06 20:29:00 99 /min [facility] Arterial blood by [facility] Pulse oximetry Branch Systolic blood 2021-09-02 01:52:00 132 mm[Hg] [facility] Diastolic blood 2021-09-02 01:52:00 75 mm[Hg] [facility] Heart rate 2021-09-02 01:52:00 67 /min [facility] Respiratory rate 2021-09-02 01:52:00 16 /min [facility] Oxygen saturation in 2021-09-02 01:52:00 99 /min [facility] Arterial blood by [facility] Pulse oximetry Branch Body temperature 2021-09-01 23:57:00 36.17 Brittany [facility] Body height 2021-09-01 23:57:00 170.2 cm [facility] Body weight 2021-09-01 23:57:00 58.968 kg [facility] BMI 2021-09-01 23:57:00 20.36 kg/m2 [facility] Systolic blood 2021-08-07 15:57:00 165 mm[Hg] [facility] Diastolic blood 2021-08-07 15:57:00 71 mm[Hg] [facility] Heart rate 2021-08-07 15:57:00 97 /min [facility] Body temperature 2021-08-07 15:57:00 37.44 Brittany [facility] Respiratory rate 2021-08-07 15:57:00 18 /min [facility] Body height 2021-08-07 15:57:00 170.2 cm [facility] Body weight 2021-08-07 15:57:00 56.7 kg [facility] BMI 2021-08-07 15:57:00 19.58 kg/m2 [facility] Oxygen saturation in 2021-08-07 15:57:00 98 /min [facility] Arterial blood by [facility] Pulse oximetry Branch Systolic blood 2021-06-30 01:29:00 132 mm[Hg] [facility] Diastolic blood 2021-06-30 01:29:00 75 mm[Hg] [facility] Heart rate 2021-06-30 01:29:00 75 /min [facility] Respiratory rate 2021-06-30 01:29:00 18 /min [facility] Oxygen saturation in 2021-06-30 01:29:00 100 /min [facility] Arterial blood by [facility] Pulse oximetry Branch Body temperature 2021-06-29 22:01:00 36.67 Brittany [facility] Body weight 2021-06-29 22:01:00 53.071 kg [facility] BMI 2021-06-29 22:01:00 18.32 kg/m2 [facility] Systolic blood 2021-05-20 21:45:00 137 mm[Hg] [facility] Diastolic blood 2021-05-20 21:45:00 75 mm[Hg] [facility] Heart rate 2021-05-20 21:45:00 75 /min [facility] Body temperature 2021-05-20 21:45:00 36.5 Brittany [facility] Respiratory rate 2021-05-20 21:45:00 16 /min [facility] Oxygen saturation in 2021-05-20 21:45:00 97 /min [facility] Arterial blood by [facility] Pulse oximetry Branch Body weight 2021-05-20 04:14:00 53.479 kg [facility] BMI 2021-05-20 04:14:00 18.47 kg/m2 [facility] Body height 2021-05-20 03:42:00 170.2 cm [facility] Systolic blood 2020-09-14 03:30:00 147 mm[Hg] [facility] Diastolic blood 2020-09-14 03:30:00 89 mm[Hg] [facility] Heart rate 2020-09-14 03:30:00 73 /min [facility] Respiratory rate 2020-09-14 03:30:00 19 /min [facility] Oxygen saturation in 2020-09-14 03:30:00 97 /min [facility] Arterial blood by [facility] Pulse oximetry Branch Body temperature 2020-09-14 02:10:00 36.5 Brittany [facility] Body height 2020-09-14 02:09:00 170.2 cm [facility] Body weight 2020-09-14 02:09:00 61.236 kg [facility] BMI 2020-09-14 02:09:00 21.14 kg/m2 [facility] Systolic blood 2020-09-14 03:30:00 147 mm[Hg] [facility] Diastolic blood 2020-09-14 03:30:00 89 mm[Hg] [facility] Heart rate 2020-09-14 03:30:00 73 /min [facility] Respiratory rate 2020-09-14 03:30:00 19 /min [facility] Oxygen saturation in 2020-09-14 03:30:00 97 /min [facility] Arterial blood by [facility] Pulse oximetry Branch Body temperature 2020-09-14 02:10:00 36.5 Brittany [facility] Body height 2020-09-14 02:09:00 170.2 cm [facility] Body weight 2020-09-14 02:09:00 61.236 kg [facility] BMI 2020-09-14 02:09:00 21.14 kg/m2 [facility] Heart rate 2019-07-28 01:36:00 70 /min [facility] Respiratory rate 2019-07-28 01:36:00 18 /min [facility] Oxygen saturation in 2019-07-28 01:24:00 98 /min [facility] Arterial blood by [facility] Pulse oximetry Branch Systolic blood 2019-07-28 01:00:00 143 mm[Hg] [facility] Diastolic blood 2019-07-28 01:00:00 74 mm[Hg] [facility] Body temperature 2019-07-28 00:05:00 36.56 Brittany [facility] Body height 2019-07-28 00:05:00 170.2 cm [facility] Body weight 2019-07-28 00:05:00 68.04 kg [facility] BMI 2019-07-28 00:05:00 23.49 kg/m2 [facility] Heart rate 2019-07-28 01:36:00 70 /min [facility] Respiratory rate 2019-07-28 01:36:00 18 /min [facility] Oxygen saturation in 2019-07-28 01:24:00 98 /min [facility] Arterial blood by [facility] Pulse oximetry Branch Systolic blood 2019-07-28 01:00:00 143 mm[Hg] [facility] Diastolic blood 2019-07-28 01:00:00 74 mm[Hg] [facility] Body temperature 2019-07-28 00:05:00 36.56 Brittany [facility] Body height 2019-07-28 00:05:00 170.2 cm [facility] Body weight 2019-07-28 00:05:00 68.04 kg [facility] BMI 2019-07-28 00:05:00 23.49 kg/m2 [facility] Systolic blood 2019-03-11 21:00:00 141 mm[Hg] [facility] Diastolic blood 2019-03-11 21:00:00 66 mm[Hg] [facility] Heart rate 2019-03-11 21:00:00 97 /min [facility] Respiratory rate 2019-03-11 21:00:00 18 /min [facility] Oxygen saturation in 2019-03-11 21:00:00 97 /min [facility] Arterial blood by [facility] Pulse oximetry Branch Body temperature 2019-03-11 19:13:00 36.06 Brittany [facility] Body weight 2019-03-11 19:12:[address] [facility] BMI 2019-03-11 19:12:00 23.49 kg/m2 [facility] Systolic blood 2019-03-11 21:00:00 141 mm[Hg] [facility] Diastolic blood 2019-03-11 21:00:00 66 mm[Hg] [facility] Heart rate 2019-03-11 21:00:00 97 /min [facility] Respiratory rate 2019-03-11 21:00:00 18 /min [facility] acute hospital Oxygen saturation in 2019-03-11 21:00:00 97 /min [facility] Arterial blood by [facility] Pulse oximetry [place] Body temperature 2019-03-11 19:13:00 36.06 Brittany [facility] Body weight 2019-03-11 19:12:[address] [facility] BMI 2019-03-11 19:12:00 23.49 kg/m2 [facility] Procedures Procedure Date / Time Performing Clinician Source Performed POCT SARS-COV-2 ANTIGEN 2022-08-24 15:52:00 Susan Lee [facility] (BINAX NOW) [facility] POCT MOLECULAR FLU 2022-08-24 15:51:00 Unknown, Attending [facility] ASSIGNMENT OF BENEFITS 2022-08-24 15:38:07 Doctor Unassigned, No [facility] Name [facility] XR CHEST 1 VW 2022-01-08 00:24:[address] [facility] RAPID STREP SCREEN FOR 2022-01-06 20:47:00 Sherrill Connor [facility] GROUP A Medical Branch COVID-19 (ID NOW RAPID 2022-01-06 20:47:00 Sherrill Connor [facility] TESTING) Medical Branch CONSENT/REFUSAL FOR 2022-01-06 20:26:18 Doctor Unassigned, No [facility] DIAGNOSIS AND TREATMENT Name [facility] RAPID INFLUENZA A/B 2021-09-02 00:47:00 Cameron Dalton [facility] COVID-19 (ID NOW RAPID 2021-09-02 00:47:00 [facility] XR CHEST 2 VW 2021-09-02 00:27:31 Miki [facility] CONSENT/REFUSAL FOR 2021-09-01 23:46:25 Doctor Unassigned, No [facility] Name Medical Branch XR CHEST 2 VW 2021-08-07 16:43:01 Darius Ledesma [facility] CONSENT/REFUSAL FOR 2021-08-07 15:37:28 Doctor Unassigned, No [facility] [place] [facility] Name [facility] CT ABDOMEN PELVIS W 2021-06-29 23:11:24 Jose Alejandro Castano [facility] CONTRAST Medical Branch LIPASE 2021-06-29 22:18:00 [facility] TROPONIN I 2021-06-29 22:18:00 [facility] COMP. METABOLIC PANEL 2021-06-29 22:18:00 Omaira [facility] ([id number]) Medical Branch CBC WITH DIFF 2021-06-29 22:18:00 [facility] URINALYSIS 2021-06-29 22:18:00 [facility] CONSENT/REFUSAL FOR 2021-06-29 21:50:47 Doctor Unassigned, No [facility] [place] [facility] POCT GLUCOSE (AUTOMATED) 2021-05-20 17:30:00 Marcelina Che [facility] HB ECG ROUTINE & RHYTHM 2021-05-20 15:36:46 Sami Caceres [facility] STRIP [facility] TRANSTHORACIC ECHO (TTE) 2021-05-20 15:19:52 [facility] COMPLETE [facility] TROPONIN I 2021-05-20 11:04:00 Esther [facility] BASIC METABOLIC PANEL 2021-05-20 11:04:00 Esther [facility] (NA, K, CL, CO2, Medical Branch GLUCOSE, BUN, CREATININE, CA) CBC WITH DIFF 2021-05-20 11:04:00 Marcelina Che [facility] TROPONIN I 2021-05-20 01:56:00 Neida Irving [facility] XR CHEST 1 VW 2021-05-20 00:01:05 Neida Irving [facility] LIPASE 2021-05-19 23:49:00 Neida Irving [facility] MAGNESIUM 2021-05-19 23:49:00 Neida Irving [facility] TROPONIN I 2021-05-19 23:49:00 Neida Irving [facility] COMP. METABOLIC PANEL 2021-05-19 23:49:00 Neida Irving [facility] ([id number]) [facility] CBC WITH DIFF 2021-05-19 23:49:00 Neida Irving [facility] PROTHROMBIN TIME / INR 2021-05-19 23:49:00 Neida Irving [facility] ACTIVATED PARTIAL 2021-05-19 23:49:00 Neida Irving [facility] THRMPLAS [facility] COVID-19 (ID NOW RAPID 2021-05-19 23:49:00 Neida Irving [facility] TESTING) [facility] CONSENT/REFUSAL FOR 2021-05-19 23:01:42 Doctor Unassigned, No Un [facility] DIAGNOSIS AND TREATMENT Name Medical Branch URINALYSIS 2020-09-14 02:42:00 Diana Berg [facility] XR CHEST 1 VW 2020-09-14 02:30:21 Diana Berg [facility] LIPASE 2020-09-14 02:21:00 Diana Berg [facility] TROPONIN I 2020-09-14 02:21:00 Diana Berg [facility] HEPATIC FUNCTION PANEL 2020-09-14 02:21:00 Diana Berg [facility] ([id number]) (ALB,T.PRO,BILI Medical Branch T,BU/BC,ALT,AST,ALK PHOS) BASIC METABOLIC PANEL 2020-09-14 02:21:00 Diana [facility] [place] (NA, K, CL, CO2, Medical Branch GLUCOSE, BUN, CREATININE, CA) CBC WITH DIFF 2020-09-14 02:21:00 Diana Berg [facility] N-TERMINAL PRO-BNP 2020-09-14 02:21:00 Diana Berg [facility] COVID-19 (ID NOW RAPID 2020-09-14 02:21:00 Diana [facility] NOTICE OF PRIVACY 2020-09-14 02:00:22 Doctor Unassigned, No Univ [facility] PRACTICES Name [facility] CONSENT/REFUSAL FOR 2020-09-14 01:58:28 Doctor Unassigned, No [facility] [place] [facility] Name [facility] HEPATIC FUNCTION PANEL 2019-07-28 00:55:00 Mariangel [facility] [place] ([id number] (ALB,T.PRO,BILI Medical Branch T,BU/BC,ALT,AST,ALK PHOS) BASIC METABOLIC PANEL 2019-07-28 00:55:00 Mariangel Ortega [facility] [place] (NA, K, CL, CO2, Medical Branch GLUCOSE, BUN, CREATININE, CA) CBC WITH DIFFERENTIAL 2019-07-28 00:55:00 Mariangel [facility] RAPID STREP SCREEN FOR 2019-07-28 00:55:00 [facility] ADC,CLC OR LCC ONLY - 2019-07-28 00:55:00 Mariangel Ortega [facility] [place] INFLUENZA A & B DIRECT [facility] ANTIGEN CBC WITH DIFFERENTIAL 2019-07-28 00:55:00 Mariangel [facility] XR CHEST 2 VW 2019-07-28 00:28:[address] [facility] CONSENT/REFUSAL FOR 2019-07-27 23:47:18 Doctor Unassigned, No [facility] [place] [facility] Name Medical Branch LIPASE 2019-03-11 19:53:00 Sherrill Connor [place] [facility] HEPATIC FUNCTION PANEL 2019-03-11 19:53:00 Sherrill Connor [facility] ([id number]) (ALB,T.PRO,BILI [facility] T,BU/BC,ALT,AST,ALK PHOS) BASIC METABOLIC PANEL 2019-03-11 19:53:00 Sherrill Connor [facility] (NA, K, CL, CO2, Medical Branch GLUCOSE, BUN, CREATININE, CA) CBC WITH DIFFERENTIAL 2019-03-11 19:53:00 Sherrill Connor [facility] PROTHROMBIN TIME / INR 2019-03-11 19:53:00 Sherrill Connor [facility] ACTIVATED PARTIAL 2019-03-11 19:53:00 Sherrill Connor [facility] THRMPLAS [facility] NOTICE OF PRIVACY 2019-03-11 18:56:54 Doctor Unassigned, [facility] PRACTICES Name [facility] Encounters Start End Encounter Admission Attending Care Care Encounter Source Date/Time Date/Time Type Type Clinicians Facility Department ID 2021-05-06 Emergency [facility] [id number] Univers 05:05:13 ity of [facility] 2022-08-24 2022-08-24 Urgent Susan Lee [facility] [id number] Univers 09:40:00 10:00:00 Care Unknown, [facility]ending [id number] [id number] Amandeep as JOCELYN?BLEA [id number] Ne dical [address] MEDICAL OFFICE BUILDING 2022-08-24 2022-08-24 Outpatient R TAMIKO [facility] [id number] Univers 09:40:00 09:40:00 SUSAN ity of [facility] 2022-08-24 2022-08-24 Orders Doctor SUSHIL [id number] Univers 00:00:00 00:00:00 Only Unassigned, KIRK [id number] ity of [facility] [id number] Amandeep as [id number] [address] 2022-01-11 2022-01-11 Laboratory Only, Ang Db Test [facility] 1.2.8 40.114 [id number] Univers 13:15:00 13:30:00 Only Monik Charles [facility] [id number] ity of [place] [id number] Amandeep as JOCELYN?BLEA [phone] Ne lennie [address] MEDICAL OFFICE BUILDING 2022-01-11 2022-01-[address] [facility] [id number] Univers 13:15:00 13:24:38 MONIK radha [facility] 2022-01-07 2022-01-07 Emergency X [facility] ERT [id number] Univers 18:26:00 21:08:00 [facility] 2022-01-07 2022-01-07 Emergency [facility] [id number] Univers 18:26:00 21:08:00 Alex DENNISON [id number] ity of [place] [id number] [facility] [id number] [address] 2022-01-06 2022-01-06 Emergency X CONNORRUST ERT [id number] Univers 15:31:00 16:32:00 SHERRILL [facility] 2022-01-06 2022-01-06 Emergency NikolasRUST [id number] Univers 15:31:00 16:32:00 Sherrill DENNISON [id number] i ty of [place] [id number] [facility] [id number] [address] 2021-09-01 2021-09-01 Emergency X DALTONRUST ERT [id number] Univers 17:59:00 19:56:00 CAMERON delaney [facility] 2021-09-01 2021-09-01 Emergency [facility] 1.2.840.114 [id number] Univers 17:59:00 19:56:00 Cameron DENNISON [id number] i ty of [facility] [id number] [facility] [id number] [address] 2021-09-01 2021-09-01 Orders Doctor LING 1.2.840.114 [id number] Univers 00:00:00 00:00:00 Only Unassigned, KIRK [id number] ity of [place] [facility] [id number] Amandeep as [phone] [facility] 009 Branch 2021-08-08 2021-08-08 Letter SUSHIL Daniels 1.2.840.114 [id number] Univers 00:00:00 00:00:00 (Out) Nirmala Ballard KIRK [id number] it y of HOSPITAL [id number] Amandeep as [phone] [facility] 019 Branch 2021-08-07 2021-08-07 Emergency X [facility] ERT [id number] Univers 09:58:00 11:43:00 DARIUS ity of [facility] 2021-08-07 2021-08-07 Emergency [facility] [id number] Univers 09:58:00 11:43:00 Darius DENNISON [id number] i ty of [place] 4.2.7.2.6 [facility] [phone] [facility] [address] [place] 2021-08-07 2021-08-07 Orders Doctor LING 1.2.840.114 [id number] Univers 00:00:00 00:00:00 Only Unassigned, KIRK [id number] ity of [place] [facility] [id number] Amandeep as [phone] [facility] 009 Branch 2021-06-29 2021-06-29 Emergency X [facility] ERT [id number] Univers 16:04:00 19:33:00 JOSE ALEJANDRO ity [facility] 2021-06-29 2021-06-29 Emergency [facility] 1.2.840.114 [id number] Univers 16:04:00 19:33:00 Jose Alejandro DENNISON [id number] i ty of [place] [id number] [facility] [id number] [address] 2021-05-19 2021-05-20 Outpatient [facility] YEISON [id number] Univers 17:04:00 17:03:00 MARCELINA itradha [facility] 2021-05-19 2021-05-20 Emergency Neida Irving [facility] 1.2.840. 114 [id number] [facility] 17:04:00 17:03:00 Marcelina Che [id number] ity of [facility] [id number] [place] [id number] [address] 2020-09-16 2020-09-16 Outpatient R LUIS MANUEL [facility] [id number] Univers 10:20:00 10:20:00 NICOLE ity [facility] 2020-09-16 2020-09-16 Laboratory Lab, [facility] 1.2.840.114 [id number] 09:44:15 10:04:15 Only Fam Pob I Health [id number] [place] 4.2.7.2.686 Professio [id number] [place] [address] [address] 2020-09-16 2020-09-16 Laboratory Lab, [facility] Fam Pob I [facility] 1.2. 840.114 [id number] [facility] 09:44:15 10:04:15 Only Nicole Issa [id number] ity of [place] 4.2.7.2.686 Amandeep as Professio [phone] Ne dical [address] Office [facility] One 2020-09-13 2020-09-13 Emergency RohanRUST 1.2.840.114 [id number] 20:05:00 22:24:00 Diaan Dennison [id number] [place] 4.2.7.2.686 [place] [id number] [facility] 2020-09-13 2020-09-13 Emergency RohanRUST 1.2.840.114 [id number] [facility] 20:05:00 22:24:00 Diana Dennison [id number] ity of [place].2.[place] [id number] [address] 2019-07-27 2019-07-27 Emergency Shannon [facility] 1.2.840.114 [id number] 18:07:12 20:13:00 Mariangel Dennison [id number] [place] 4.2.7.2.686 [place] [id number] 2019-07-27 2019-07-27 Emergency ShannonRUST 1.2.840.114 [id number] [facility] 18:07:12 20:13:00 Mariangel Dennison [id number] ity of [place] 4.2.7.2.686 [facility] [id number] [address] 2019-07-27 2019-07-27 Orders Doctor SUSHIL 1.2.840.114 [id number] 00:00:00 00:00:00 Only Unassigned, KIRK 350.1.13.10 [place] [facility] 4.2.7.2.686 [id number] 2019-07-27 2019-07-27 Orders Doctor SUSHIL 1.2.840.114 [id number] Univers 00:00:00 00:00:00 Only Unassigned, KIRK [id number] ity of [place] [facility] [id number] Amandeep [id number] [address] 2019-03-11 2019-03-11 Emergency [facility] [id number] 14:05:54 16:45:00 Sherrill Dennison [id number] [place] 4.2.7.2.686 [place] [id number] [facility] 2019-03-11 2019-03-11 [facility] [id number] [facility] 14:05:54 16:45:00 Sherrill Dennison [id number] i ty of [place] 4.2.7.2.686 [facility] [id number] [address] Results Test Description Test Time Test Comments Results Result Comments Source POCT MOLECULAR FLU 2022-08-24 16:02:31 Test Item Value Reference Range Interpretation Comme nts POCT Molecular FluA (test code = 70186-0) Negative Negative POCT Molecular FluB (test code = 09676-2) Negative Negative Lab Interpretation (test code = 19969-1) [facility] SARS-COV-2 ANTIGEN (BINAX NOW)2022-08-24 15:52:00 Test Item Value Reference Range Interpretation Comments POCT SARS-COV-2 ANTIGEN (test Not Detected Not Detected code = 79698-4) On board controls acceptable Yes with C Line (test code = 3574) Lab Interpretation (test code = Normal 27037-0) [facility]. METABOLIC PANEL (52462)2021-06-29 23:10:56 Test Item Value Reference Range Interpretation Comments NA (test code = 137 mmol/L 135-145 2726461675) K (test code = 3.9 mmol/L 3.5-5.0 7689992404) CL (test code = 102 mmol/L 98-108 5419967616) CO2 TOTAL (test code = 27 mmol/L 23-31 0690539485) AGAP (test code = 2-16 2190089246) BUN (test code = 10 mg/dL 7-23 2270929017) GLUCOSE (test code = 137 mg/dL 70-110 H 9563408108) CREATININE (test code = 0.69 mg/dL 0.50-1.04 0261512257) TOTAL BILI (test code = 0.5 mg/dL 0.1-1.2 9900924180) CALCIUM (test code = 9.2 mg/dL 8.6-10.6 4431180550) T PROTEIN (test code = 7.7 g/dL 6.3-8.2 0247464942) ALBUMIN (test code = 4.9 g/dL 3.5-5.0 5424366619) ALK PHOS (test code = 73 U/L 34-122 8995194023) ALTv (test code = 15 U/L 5-35 1742-6) AST(SGOT) (test code = 21 U/L 13-40 4950476613) eGFR (test code = mL/min/1.73m2 2320363373) MADISYN (test code = MADISYN) Association of [...] tests). Lab Interpretation Abnormal (test code = 76502-6) [id number] 22:59:27 Test Item Value Reference Interpretation Comments Range TROPONIN I (test 0.001 ng/mL See_Comment [Automated code = 3250024164) message] The system which generated this result transmitted reference range : <=0.034. The reference range was not used to interpret this result as normal/abnormal . MADISYN (test code = Reference (Normal) AMDISYN) Range (defined by the 99th percentile reference [...] biotin. Lab Interpretation Normal (test code = 32469-0) [facility]29 Test Item Value Reference Range Interpretation Comments LIPASE (test code = 3486119430) 57 U/L 0-220 Lab Interpretation (test code = Normal 03793-3) [facility] WITH [id number] 22:29:28 Test Item Value Reference Range Interpretation [...] RDW-SD (test code = 43.4 fL 39.0-49.9 30020-3) RDW-CV (test code = 12.7 % 12.0-15.5 788-0) PLT (test code = See_Comment [Automated 777-3) message] The sy stem which generated this result transmitted reference range : 166 - 358 10*3/ ?L. The reference r aiden was not used to interpret this result as normal/abnormal . MPV (test code = 10.7 fL 9.5-12.9 04481-3) NRBC/100 WBC (test See_Comment [Automat ed code = 4536076475) message] The system which generated this result transmitted reference range : 0.0 - 10.0 /100 WBCs. The refer ence range was not u sed to interpret th is result as normal/abnormal . NRBC x10^3 (test code <0.01 See_Comment [Auto mated = 5532988666) message] The s ystem which generated this result transmitted reference range : 10*3/?L. The reference range was not used to interpret this result as normal/abnormal . GRAN MAT (NEUT) % 68.6 % (test code = 770-8) IMM GRAN % (test code 0.40 % = 1874441171) LYMPH % (test code = 22.9 % 736-9) MONO % (test code = 6.3 % 5905-5) EOS % (test code = 1.6 % 713-8) BASO % (test code = 0.2 % 706-2) GRAN MAT x10^3(ANC) 6.89 10*3/uL 1.88-7.09 (test code = 6814426175) IMM GRAN x10^3 (test 0.04 10*3/uL 0.00-0.06 code = 8766434859) LYMPH x10^3 (test code 2.30 10*3/uL 1.32-3.29 = 731-0) MONO x10^3 (test code 0.63 10*3/uL 0.33-0.92 = 742-7) EOS x10^3 (test code = 0.16 10*3/uL 0.03-0.39 711-2) BASO x10^3 (test code <0.03 0.01-0.07 = 704-7) Lab Interpretation Abnormal (test code = 69633-2) [facility]2021-[facility]-20 17:33:00 Test Item Value Reference Range Interpretation Comments POCT GLU (test code = 8091566361) 80 mg/dL 70-110 Lab Interpretation (test code = Normal 67652-3) [facility]TR[facility] [id number] 12:36:17 Test Item Value Reference Interpretation Comments Range TROPONIN I (test 0.002 ng/mL See_Comment [Automated code = 5898403376) message] The system which generated this result [...] biotin. Lab Interpretation Normal (test code = 24489-4) [facility] Metabolic Panel (NA, K, CL, CO2, GLUCOSE, BUN, CREATININE, CA)2021-05-20 12:31:20 Test Item Value Reference Range Interpretation Comments NA (test code = 138 mmol/L 135-145 6983283155) K (test code = 4.2 mmol/L 3.5-5.0 6463530668) CL (test code = 106 mmol/L 98-108 3717354711) CO2 TOTAL (test code = 25 mmol/L 23-31 0888151539) AGAP (test code = 2-16 9129650326) BUN (test code = 12 mg/dL 7-23 6808833821) GLUCOSE (test code = 146 mg/dL 70-110 H 5842657629) CREATININE (test code = 0.62 mg/dL 0.50-1.04 5686804762) CALCIUM (test code = 10.0 mg/dL 8.6-10.6 0737325131) eGFR (test code = mL/min/1.73m2 8868752967) MADISYN (test code = MADISYN) Association of [...] tests). Lab Interpretation Abnormal (test code = 85063-9) [facility] with [id number] 11:49:32 Test Item Value Reference Range Interpretation Comments WBC (test code = See_Comment [Automated 2115-2) message] The sy stem which generated this result transmitted reference range : 4.30 - 11.10 10*3/?L. The reference range was not used to interpret this result as normal/abnormal . RBC (test code = See_Comment L [Automated 349-8) message] The sy stem which generated this [...] RDW-SD (test code = 40.3 fL 39.0-49.9 58157-7) RDW-CV (test code = 11.9 % 12.0-15.5 L 788-0) PLT (test code = See_Comment [Automated 497-3) message] The sy stem which generated this result transmitted reference range : 166 - 358 10*3/ ?L. The reference r aiden was not used to interpret this result as normal/abnormal . MPV (test code = 11.3 fL 9.5-12.9 39731-3) NRBC/100 WBC (test See_Comment [Automat ed code = 9537198641) message] The system which generated this result transmitted reference range : 0.0 - 10.0 /100 WBCs. The refer ence range was not u sed to interpret th is result as normal/abnormal . NRBC x10^3 (test code <0.01 See_Comment [Auto mated = 9810968136) message] The s ystem which generated this result transmitted reference range : 10*3/?L. The reference range was not used to interpret this result as normal/abnormal . GRAN MAT (NEUT) % 59.9 % (test code = 770-8) IMM GRAN % (test code 0.50 % = 8939795550) LYMPH % (test code = 30.0 % 736-9) MONO % (test code = 6.4 % 5905-5) EOS % (test code = 2.9 % 713-8) BASO % (test code = 0.3 % 706-2) GRAN MAT x10^3(ANC) 3.72 10*3/uL 1.88-7.09 (test code = 2576220813) IMM GRAN x10^3 (test 0.03 10*3/uL 0.00-0.06 code = 5763716164) LYMPH x10^3 (test code 1.86 10*3/uL 1.32-3.29 = 731-0) MONO x10^3 (test code 0.40 10*3/uL 0.33-0.92 = 742-7) EOS x10^3 (test code = 0.18 10*3/uL 0.03-0.39 711-2) BASO x10^3 (test code <0.03 0.01-0.07 = 704-7) Lab Interpretation Abnormal (test code = 97091-4) [facility] HospitalMARTA [id number] 02:24:28 Test Item Value Reference Interpretation Comments Range TROPONIN I (test 0.003 ng/mL See_Comment [Automated code = 8420606818) message] The system which generated this result [...] biotin. Lab Interpretation Normal (test code = 60392-1) [facility]MAG[facility]UM2021-[facility]-14 00:25:00 Test Item Value Reference Range Interpretation Comments MAGNESIUM (test code = 6672957874) 1.9 mg/dL 1.7-2.4 Lab Interpretation (test code = Normal 70260-6) [facility] HospitalTROPONIN [id number] 00:20:03 Test Item Value Reference Interpretation Comments Range TROPONIN I (test 0.002 ng/mL See_Comment [Automated code = 9614640198) message] The system which generated this result [...] biotin. Lab Interpretation Normal (test code = 14566-5) [facility] HospitalCOM. METABOLIC PANEL (39985)2021-05-20 00:09:00 Test Item Value Reference Range Interpretation Comments NA (test code = 139 mmol/L 135-145 0629733077) K (test code = 3.9 mmol/L 3.5-5.0 6744060955) CL (test code = 101 mmol/L 98-108 4381687622) CO2 TOTAL (test code = 28 mmol/L 23-31 4365681206) AGAP (test code = 2-16 0888395663) BUN (test code = 13 mg/dL 7-23 3170564970) GLUCOSE (test code = 143 mg/dL 70-110 H 4882639980) CREATININE (test code = 0.68 mg/dL 0.50-1.04 1714943726) TOTAL BILI (test code = 0.4 mg/dL 0.1-1.1 2187787527) CALCIUM (test code = 10.4 mg/dL 8.6-10.6 2136963288) T PROTEIN (test code = 8.0 g/dL 6.3-8.2 6388829012) ALBUMIN (test code = 5.0 g/dL 3.5-5.0 5881948629) ALK PHOS (test code = 93 U/L 34-122 3984529039) ALTv (test code = 21 U/L 5-35 1742-6) AST(SGOT) (test code = 31 U/L 13-40 7879102319) eGFR (test code = mL/min/1.73m2 5189873935) MADISYN (test code = MADISYN) Association of [...] tests). Lab Interpretation Abnormal (test code = 15736-2) [facility] 00:08:20 Test Item Value Reference Range Interpretation Comments LIPASE (test code = 6711961868) 66 U/L 0-220 Lab Interpretation (test code = Normal 31319-1) [facility] HospitalaPTT2021-11-14 00:06:19 Test Item Value Reference Range Interpretation Comments APTT Patient (test See_Comment [Automat ed code = 3173-2) message] The system which generated this result transmitted reference range : 23 - 38 Seconds . The reference range was not used to interpr et this result as normal/abnormal . MADISYN (test code = MADISYN) The [facility] patient population mean normal value for aPTT is 30 seconds. Lab Interpretation Normal (test code = 69261-0) [facility] HospitalPROTHROMBIN TIME / [id number] 00:04:19 Test Item Value Reference Range Interpretation [...] tions. Lab Interpretation (test Normal code = 13118-6) [facility] HospitalCBC WITH [id number] 23:55:39 Test Item Value Reference Range Interpretation [...] RDW-SD (test code = 40.4 fL 39.0-49.9 20222-4) RDW-CV (test code = 11.9 % 12.0-15.5 L 788-0) PLT (test code = See_Comment [Automated 777-3) message] The sy stem which generated this result transmitted reference range : 166 - 358 10*3/ ?L. The reference r aiden was not used to interpret this result as normal/abnormal . MPV (test code = 11.0 fL 9.5-12.9 79073-5) NRBC/100 WBC (test See_Comment [Automat ed code = 6801567917) message] The system which generated this result transmitted reference range : 0.0 - 10.0 /100 WBCs. The refer ence range was not u sed to interpret th is result as normal/abnormal . NRBC x10^3 (test code <0.01 See_Comment [Auto mated = 1458960520) message] The s ystem which generated this result transmitted reference range : 10*3/?L. The reference range was not used to interpret this result as normal/abnormal . GRAN MAT (NEUT) % 53.4 % (test code = 770-8) IMM GRAN % (test code 0.60 % = 9701541066) LYMPH % (test code = 36.2 % 736-9) MONO % (test code = 6.4 % 5905-5) EOS % (test code = 3.3 % 713-8) BASO % (test code = 0.1 % 706-2) GRAN MAT x10^3(ANC) 3.58 10*3/uL 1.88-7.09 (test code = 7895817654) IMM GRAN x10^3 (test 0.04 10*3/uL 0.00-0.06 code = 8212681689) LYMPH x10^3 (test code 2.43 10*3/uL 1.32-3.29 = 731-0) MONO x10^3 (test code 0.43 10*3/uL 0.33-0.92 = 742-7) EOS x10^3 (test code = 0.22 10*3/uL 0.03-0.39 711-2) BASO x10^3 (test code <0.03 0.01-0.07 = 704-7) Lab Interpretation Abnormal (test code = 82522-6) [facility] HospitalUrinalysis2021-03-11 03:27:11 Test Item Value Reference Range Interpretation Comments APPEARANCE (test code = Clear Clear 9219706022) COLOR (test code = Straw Yellow A 7334821410) PH (test code = 4.8-8.0 8913009627) SP GRAVITY (test code = 1.003-1.030 9762054611) GLU U QUAL (test code = 500 mg/dL Normal A 7712225804) BLOOD (test code = Negative Negative 4423212757) KETONES (test code = Negative Negative 5885986671) PROTEIN (test code = Negative Negative 2887-8) UROBILIN (test code = Normal Normal 9627403389) BILIRUBIN (test code = Negative Negative 1914634247) NITRITE (test code = Negative Negative 3593599980) LEUK KEVEN (test code = 25/uL Negative A 1521400064) RBC/HPF (test code = See_Comment [Autom ated message] 9914846246) The system [employer] generated this result transmit zoila reference range : 0 - 3 HPF. The refe rence range was not u sed to interpret th is result as normal/abnormal . WBC/HPF (test code = See_Comment [Autom ated message] 5831654688) The system [employer] generated this result transmit zoila reference range : 0 - 5 HPF. The refe rence range was not u sed to interpret th is result as normal/abnormal . BACTERIA (test code = Negative Negative 3137195630) MUCOUS (test code = Slight Negative LPF A 2372943727) SQ EPITH (test code = HPF 0140242840) Lab Interpretation (test Abnormal code = 39584-3) [facility] HospitalTroponin [id number] 03:00:28 Test Item Value Reference Range Interpretation Comments TROPONIN I (test <0.012 See_Comment [Automated code = 3332029983) message] The system which generated this result [...] ? Lab Interpretation Normal (test code = 78797-4) [facility] HospitalN-TERMINAL [id number] 02:57:10 Test Item Value Reference Range Interpretation Comments NT-proBNP (test code 25 pg/mL See_Comment [Autom ated = 9087922558) message] The system which generated this result transmitted reference range : <=125. The reference range was not used to interpret this result as normal/abnormal . MADISYN (test code = MADISYN) Biotin has been reported to cause a negative bias, interpret results relative to patient's use of biotin. Lab Interpretation Normal (test code = 28291-7) [facility] Metabolic Panel (NA, K, CL, CO2, GLUCOSE, BUN, CREATININE, CA)2020-09-14 02:48:49 Test Item Value Reference Range Interpretation Comments NA (test code = 135 mmol/L 135-145 5911081195) K (test code = 3.6 mmol/L 3.5-5.0 2809207882) CL (test code = 101 mmol/L 98-108 4123114892) CO2 TOTAL (test code = 23 mmol/L 23-31 5954136550) AGAP (test code = 2-16 5511633725) BUN (test code = 10 mg/dL 7-23 2829863937) GLUCOSE (test code = 296 mg/dL 70-110 H 5704032443) CREATININE (test code = 0.62 mg/dL 0.50-1.04 5440508002) CALCIUM (test code = 9.7 mg/dL 8.6-10.6 5618847584) eGFR Calculation mL/min/1.73m2 (Non-) (test code = 8064473257) eGFR Calculation mL/min/1.73m2 () (test code = 6453157492) MADISYN (test code = MADISYN) Association of [...] tests). Lab Interpretation Abnormal (test code = 82716-5) [facility] HospitalHepatic Function Panel (ALB, T.PRO, BILI T, BU/BC, ALT, AST, ALK PHOS)2020-09-14 02:48:48 Test Item Value Reference Range Interpretation Comments TOTAL BILI (test code = 0842912053) 0.4 mg/dL 0.1-1.1 BILI UNCON (test code = 8059954482) 0.4 mg/dL 0.1-1.1 BILI CONJ (test code = 3863437911) 0.0 mg/dL 0.0-0.3 T PROTEIN (test code = 2924005949) 7.7 g/dL 6.3-8.2 ALBUMIN (test code = 6003739687) 5.0 g/dL 3.5-5.0 ALK PHOS (test code = 3856713540) 78 U/L 34-122 ALTv (test code = 1742-6) 19 U/L 5-35 AST(SGOT) (test code = 2394941142) 25 U/L 13-40 Lab Interpretation (test code = Normal 07659-8) [facility] HospitalLipase [id number] 02:48:48 Test Item Value Reference Range Interpretation Comments LIPASE (test code = 4995273643) 38 U/L 0-220 Lab Interpretation (test code = Normal 33965-3) [facility] HospitalCOVID-19 (ID NOW RAPID TESTING)2020-09-14 02:36:29 Test Item Value Reference Range Interpretation Comments SARS-CoV-2 Rapid ID NOW Positive Not Detected A (test code = 22870-7) MADISYN (test code = MADISYN) ID NOW COVID-19 Assay is an isothermal nucleic acid amplification test intended for the qualitative detection of nucleic acid from SARS-CoV-2 viral RNA in nasopharyngeal (WOOD T[employer] ERECTOR) specimens. It is used under Emergency Use [...] indicated. Lab Interpretation Abnormal (test code = 12119-7) [facility] with Ommhxenkdctw0794-52-27 02:30:06 Test Item Value Reference Range Interpretation Comments WBC (test code = See_Comment [Automated message] 3690-2) The system [employer] generated this result transmitted ref erence range: 4.30 - 1 1.10 10*3/?L. The re ference range was not u sed to interpret this result as normal/abnor mal. RBC (test code = See_Comment [Automated message] 789-8) The system [employer] generated this result transmitted ref erence range: [...] RDW-SD (test code 41.8 fL 39.0-49.9 = 00282-8) RDW-CV (test code 12.8 % 12.0-15.5 = 788-0) PLT (test code = See_Comment [Automated message] 777-3) The system whic h generated this result transmitted ref erence range: 166 - 35 8 10*3/?L. The re ference range was not u sed to interpret this result as normal/abnor mal. MPV (test code = 11.2 fL 9.5-12.9 00265-8) NRBC/100 WBC (test See_Comment [Automat ed message] code = 7775507203) The syste m which generated this result transmitted ref erence range: 0.0 - 10 .0 /100 WBCs. The refer ence range was not u sed to interpret this result as normal/abnor mal. NRBC x10^3 (test <0.01 See_Comment [Automated message] code = 9252831275) The syste m which generated this result transmitted ref erence range: 10*3/?L. The reference range was not used to interpr et this result as normal/abnormal . GRAN MAT (NEUT) % 54.0 % (test code = 770-8) IMM GRAN % (test 0.70 % code = 8198181020) LYMPH % (test code 36.2 % = 736-9) MONO % (test code 6.0 % = 5905-5) EOS % (test code = 2.8 % 713-8) BASO % (test code 0.3 % = 706-2) GRAN MAT 3.13 10*3/uL 1.88-7.09 x10^3(ANC) (test code = 4253633192) IMM GRAN x10^3 0.04 10*3/uL 0.00-0.06 (test code = 0433450630) LYMPH x10^3 (test 2.10 10*3/uL 1.32-3.29 code = 731-0) MONO x10^3 (test 0.35 10*3/uL 0.33-0.92 code = 742-7) EOS x10^3 (test 0.16 10*3/uL 0.03-0.39 code = 711-2) BASO x10^3 (test <0.03 0.01-0.07 code = 704-7) [facility] WITH [id number] 01:35:00 Test Item Value Reference Range Interpretation [...] RDW-SD (test code = 40.8 fL 39-49.9 58827-5) RDW-CV (test code = 12.5 % 12-15.5 788-0) PLT (test code = See_Comment [Automated 777-3) message] The sy stem which generated this result transmitted reference range : 166 - 358 10*3/ ?L. The reference r aiden was not used to interpret this result as normal/abnormal . MPV (test code = 11.0 fL 9.5-12.9 91508-8) IPF % (test code = 5.7 % 1.3-7.7 Platelet count 6628260826) measured by fluorescence method. NRBC/100 WBC (test See_Comment [Automat ed code = 9693269016) message] The system which generated this result transmitted reference range : 0.0 - 10.0 /100 WBCs. The refer ence range was not u sed to interpret th is result as normal/abnormal . NRBC x10^3 (test code <0.01 See_Comment [Auto mated = 7632439738) message] The s ystem which generated this result transmitted reference range : 10*3/?L. The reference range was not used to interpret this result as normal/abnormal . GRAN MAT (NEUT) % 60.2 % (test code = 770-8) IMM GRAN % (test code 1.60 % = 1890208451) LYMPH % (test code = 29.4 % 736-9) MONO % (test code = 6.2 % 5905-5) EOS % (test code = 2.3 % 713-8) BASO % (test code = 0.3 % 706-2) GRAN MAT x10^3(ANC) 5.31 10*3/uL 1.88-7.09 (test code = 8013338691) IMM GRAN x10^3 (test 0.14 10*3/uL 0-0.06 H code = 0669595505) LYMPH x10^3 (test code 2.59 10*3/uL 1.32-3.29 = 731-0) MONO x10^3 (test code 0.55 10*3/uL 0.33-0.92 = 742-7) EOS x10^3 (test code = 0.20 10*3/uL 0.03-0.39 711-2) BASO x10^3 (test code 0.03 10*3/uL 0.01-0.07 = 704-7) Lab Interpretation Abnormal (test code = 31392-3) [facility] HospitalAD,CLC OR LCC ONLY - INFLUENZA A & B DIRECT [id number] 01:26:00 Test Item Value Reference Range Interpretation Comments Influenza A (test code = 91740-3) Negative Negative Influenza B (test code = 40053-0) Negative Negative Lab Interpretation (test code = Normal 62663-6) [facility] Metabolic Panel (NA, K, CL, CO2, GLUCOSE, BUN, CREATININE, CA)2019-07-28 01:21:00 Test Item Value Reference Range Interpretation Comments NA (test code = 137 mmol/L 135-145 1675599088) K (test code = 3.8 mmol/L 3.5-5 5973229641) CL (test code = 100 mmol/L 98-108 0241926673) CO2 TOTAL (test code = 24 mmol/L 23-31 0832751842) AGAP (test code = 2-16 4878953187) BUN (test code = 13 mg/dL 7-23 1193246253) GLUCOSE (test code = 245 mg/dL 70-110 H 8352286036) CREATININE (test code = 0.49 mg/dL 0.5-1.04 L 1513408393) CALCIUM (test code = 9.8 mg/dL 8.6-10.6 0616982789) eGFR Calculation mL/min/1.73m2 (Non-) (test code = 6825361736) eGFR Calculation mL/min/1.73m2 () (test code = 8596580946) MADISYN (test code = MADISYN) Association of [...] tests). Lab Interpretation Abnormal (test code = 87347-1) [facility] HospitalHepatic Function Panel (ALB, T.PRO, BILI T, BU/BC, ALT, AST, ALK PHOS)2019-07-28 01:21:00 Test Item Value Reference Range Interpretation Comments TOTAL BILI (test code = 5738144059) 0.3 mg/dL 0.1-1.1 BILI UNCON (test code = 5251075761) 0.1 mg/dL 0.1-1.1 BILI CONJ (test code = 8464655735) 0.0 mg/dL 0-0.3 T PROTEIN (test code = 6146760607) 8.2 g/dL 6.3-8.2 ALBUMIN (test code = 4520538888) 5.0 g/dL 3.5-5 ALK PHOS (test code = 8246254971) 121 U/L 34-122 ALTv (test code = 1742-6) 33 U/L 5-35 AST(SGOT) (test code = 8865696472) 30 U/L 13-40 Lab Interpretation (test code = Normal 99420-5) [facility] HospitalRAPID STREP SCREEN FOR GROUP [id number] 01:19:00 Test Item Value Reference Range Interpretation Comments Streptococcus pyogenes (group A) Negative Negative antigen (test code = 34238-5) Lab Interpretation (test code = Normal 71323-4) [facility] HospitalXR CHEST 2 [id number] 00:53:20Impression: No acute cardiopulmonary changes. Small sized [...] reviewed this study and agree withthe above report.[facility] (NA, K, CL, CO2, GLUCOSE, BUN, CREATININE, CA)2019-03-11 20:52:00 Test Item Value Reference Range Interpretation Comments NA (test code = 141 mmol/L 135-145 3876941801) K (test code = 3.6 mmol/L 3.5-5 9723166496) CL (test code = 104 mmol/L 98-108 5286913520) CO2 TOTAL (test code = 24 mmol/L 23-31 2381819071) AGAP (test code = 2-16 4101555651) BUN (test code = 19 mg/dL 7-23 9479687508) GLUCOSE (test code = 161 mg/dL 70-110 H 6353840131) CREATININE (test code = 0.51 mg/dL 0.5-1.04 6524001666) CALCIUM (test code = 9.4 mg/dL 8.6-10.6 6345072279) eGFR Calculation mL/min/1.73m2 (Non-) (test code = 7030249866) eGFR Calculation mL/min/1.73m2 () (test code = 7940769099) MADISYN (test code = MADISYN) Association of [...] tests). Lab Interpretation Abnormal (test code = 24592-8) [facility] HospitalHep[facility] Function Panel (ALB, T.PRO, BILI T, BU/BC, ALT, AST, ALK PHOS)2019-03-11 20:52:00 Test Item Value Reference Range Interpretation Comments TOTAL BILI (test code = 0651499881) 0.6 mg/dL 0.1-1.1 BILI UNCON (test code = 7052826406) 0.5 mg/dL 0.1-1.1 BILI CONJ (test code = 1451169270) 0.0 mg/dL 0-0.3 T PROTEIN (test code = 7661720817) 7.7 g/dL 6.3-8.2 ALBUMIN (test code = 9033926203) 4.9 g/dL 3.5-5 ALK PHOS (test code = 6736022408) 61 U/L 34-122 ALT(SGPT) (test code = 2922329007) 26 U/L 9-51 AST(SGOT) (test code = 9348951394) 28 U/L 13-40 Lab Interpretation (test code = Normal 13572-3) [facility] HospitalLipase [id number] 20:52:00 Test Item Value Reference Range Interpretation Comments LIPASE (test code = 8696966686) 22 U/L 0-220 Lab Interpretation (test code = Normal 23034-5) [facility] HospitalaPTT2019-09-05 20:40:00 Test Item Value Reference Range Interpretation Comments APTT Patient (test See_Comment L [Automat ed code = 3173-2) message] The system which generated this result transmitted reference range : 23 - 38 Seconds . The reference range was not used to interpr et this result as normal/abnormal . MADISYN (test code = MADISYN) The [facility] patient population mean normal value for aPTT is 30 seconds. Lab Interpretation Abnormal (test code = 27351-5) [facility] HospitalProthrombin Time (PT) / [id number] 20:38:00 Test Item Value Reference Range Interpretation [...] tions. Lab Interpretation (test Normal code = 99919-6) [facility] WITH [id number] 20:33:00 Test Item Value Reference Range Interpretation Comments WBC (test code = See_Comment [Automated 7690-2) message] The sy stem which generated this [...] RDW-SD (test code = 44.3 fL 39-49.9 25842-1) RDW-CV (test code = 12.9 % 12-15.5 788-0) PLT (test code = See_Comment [Automated 777-3) message] The sy stem which generated this result transmitted reference range : 166 - 358 10*3/ ?L. The reference r aiden was not used to interpret this result as normal/abnormal . MPV (test code = 10.9 fL 9.5-12.9 59611-4) NRBC/100 WBC (test See_Comment [Automat ed code = 4859576714) message] The system which generated this result transmitted reference range : 0.0 - 10.0 /100 WBCs. The refer ence range was not u sed to interpret th is result as normal/abnormal . NRBC x10^3 (test code <0.01 See_Comment [Auto mated = 8585698990) message] The s ystem which generated this result transmitted reference range : 10*3/?L. The reference range was not used to interpret this result as normal/abnormal . GRAN MAT (NEUT) % 86.3 % (test code = 770-8) IMM GRAN % (test code 0.50 % = [id number]) LYMPH % (test code = 8.8 % 736-9) MONO % (test code = 4.0 % 5905-5) EOS % (test code = 0.2 % 713-8) BASO % (test code = 0.2 % 706-2) GRAN MAT x10^3(ANC) 8.24 10*3/uL 1.88-7.09 H (test code = [id number]) IMM GRAN x10^3 (test 0.05 10*3/uL 0-0.06 code = [id number]) LYMPH x10^3 (test code 0.84 10*3/uL 1.32-3.29 L = 731-0) MONO x10^3 (test code 0.38 10*3/uL 0.33-0.92 = 742-7) EOS x10^3 (test code = <0.03 0.03-0.39 L 711-2) BASO x10^3 (test code <0.03 0.01-0.07 = 704-7) Lab Interpretation Abnormal (test code = 09869-9) [facility]"
--- NOTE | 2023-01-12 11:18 | EDPHYS ---
Physician Documentation [facility] Name: Dolores Pérez Age: 62 yrs Sex: Female : 1960 Arrival Date: 01/12/2023 Time: 10:24 Bed 6 Private MD: ED Physician Feng Tian HPI: 01/12 11:13 This 62 yrs old Female presents to ER via EMS with complaints of syncopex trent multiple episodes. 11:13 The patient or guardian reports injury, swelling, tenderness. The complaints affect the trent top of head, right frontal area, right side of the back of head and right temporal area. Context of injury: The problem was sustained at home, resulted from a fall. 11:14 Onset: The symptoms/episode began/occurred yesterday. Associated signs and symptoms: trent Loss of consciousness: This patient experience a loss of consciousness, for an unknown period of time. The patient has experienced syncope, became unresponsive, collapsed. Onset: The symptoms/episode began/occurred last night. Severity of symptoms: At their worst the symptoms were mild, in the emergency department the symptoms are unchanged. Historical: - Allergies: 10:35 Prednisone; bp 10:35 Sulfa (Sulfonamide Antibiotics); bp 10:35 peanuts; bp 10:35 NSAIDS; bp - Home Meds: 10:35 levothyroxine 125 mcg tab once daily [Active]; ropinirole oral [Active]; Trazodone Oral bp [Active]; Spironolactone Oral [Active]; losartan oral [Active]; Plavix 75 mg Oral tablet daily [Active]; Metformin Oral [Active]; Lipitor Oral [Active]; gabapentin oral [Active]; sertraline oral [Active]; Alprazolam Oral [Active]; - PMHx: 10:35 Asthma; COPD; diabetes mellitus; High Cholesterol; Hypertension; Hypothyroidism; bp Transient cerebral ischemia; Anxiety; Depressive disorder; - Immunization history:: Adult Immunizations up to date. - Social history:: Smoking status: Patient denies any tobacco usage or history of. - Family history:: not pertinent. ROS: 11:14 Constitutional: Negative for fever, chills, and weight loss, Eyes: Negative for injury, trent pain, redness, and discharge, ENT: Negative for injury, pain, and discharge, Neck: Negative for injury, pain, and swelling, Cardiovascular: Negative for chest pain, palpitations, and edema, Respiratory: Negative for shortness of breath, cough, wheezing, and pleuritic chest pain, Abdomen/GI: Negative for abdominal pain, nausea, vomiting, diarrhea, and constipation, Back: Negative for injury and pain, : Negative for injury, bleeding, discharge, and swelling, MS/Extremity: Negative for injury and deformity, Skin: Negative for injury, rash, and discoloration, Psych: Negative for depression, anxiety, suicide ideation, homicidal ideation, and hallucinations, Allergy/Immunology: Negative for hives, rash, and allergies, Endocrine: Negative for neck swelling, polydipsia, polyuria, polyphagia, and marked weight changes, Hematologic/Lymphatic: Negative for swollen nodes, abnormal bleeding, and unusual bruising. 11:14 Constitutional: Positive for 11:14 Neuro: Positive for syncope, near syncope, weakness. Exam: 11:14 Abdomen/GI: Exam negative for Inspection: abdomen appears normal, Bowel sounds: normal, trent Palpation: abdomen is soft and non-tender. 11:14 Constitutional: This is a well developed, well nourished patient who is awake, alert, and in no acute distress. Head/Face: Normocephalic, atraumatic. Eyes: Pupils equal round and reactive to light, extra-ocular motions intact. Lids and lashes normal. Conjunctiva and sclera are non-icteric and not injected. Cornea within normal limits. Periorbital areas with no swelling, redness, or edema. ENT: Nares patent. No nasal discharge, no septal abnormalities noted. Tympanic membranes are normal and external auditory canals are clear. Oropharynx with no redness, swelling, or masses, exudates, or evidence of obstruction, uvula midline. Mucous membranes moist. Neck: Trachea midline, no thyromegaly or masses palpated, and no cervical lymphadenopathy. Supple, full range of motion without nuchal rigidity, or vertebral point tenderness. No Meningismus. Chest/axilla: Normal chest wall appearance and motion. Nontender with no deformity. No lesions are appreciated. Cardiovascular: Regular rate and rhythm with a normal S1 and S2. No gallops, murmurs, or rubs. Normal PMI, no JVD. No pulse deficits. Respiratory: Lungs have equal breath sounds bilaterally, clear to auscultation and percussion. No rales, rhonchi or wheezes noted. No increased work of breathing, no retractions or nasal flaring. Abdomen/GI: Soft, non-tender, with normal bowel sounds. No distension or tympany. No guarding or rebound. No evidence of tenderness throughout. Back: No spinal tenderness. No costovertebral tenderness. Full range of motion. Skin: Warm, dry with normal turgor. Normal color with no rashes, no lesions, and no evidence of cellulitis. MS/ Extremity: Pulses equal, no cyanosis. Neurovascular intact. Full, normal range of motion. Neuro: Awake and alert, GCS 15, oriented to person, place, time, and situation. Cranial nerves II-XII grossly intact. Motor strength 5/5 in all extremities. Sensory grossly intact. Cerebellar exam normal. Normal gait. Psych: Awake, alert, with orientation to person, place and time. Behavior, mood, and affect are within normal limits. 11:14 Musculoskeletal/extremity: DVT Exam: No signs of deep vein thrombosis. no pain, no swelling, no tenderness, negative Homans' sign noted on exam, no appreciated bluish discoloration, no erythema, no increased warmth. 11:20 ECG was reviewed by the Attending Physician. [facility] Vital Signs: 10:34 BP 112 / 80; Pulse 85; Resp 18; Temp 98; Pulse Ox 96% ; Weight 58.97 kg; Height 5 ft. 7 bp in. ; 11:30 BP 122 / 58; Pulse 83; Resp 16; Pulse Ox 97% on R/A; eh3 13:00 BP 126 / 61; Pulse 65; Resp 17; Pulse Ox 98% on R/A; hb 14:55 BP 125 / 60; Pulse 72; Resp 16; Pulse Ox 98% ; bp 10:34 Body Mass Index 20.36 (58.97 kg, 170.18 cm) bp [place] Coma Score: 11:14 Eye Response: spontaneous(4). Motor Response: obeys commands(6). Verbal Response: trent oriented(5). Total: 15. 11:16 Eye Response: spontaneous(4). Motor Response: obeys commands(6). Verbal Response: trent oriented(5). Total: 15. MDM: 10:38 Patient medically screened. [facility] 11:16 Differential diagnosis: Contusion of Hematoma on Laceration of Intracranial bleed- trent cerebral contusion. Differential Diagnosis: cardiac arrhythmia, cerebrovascular accident, emotional response, GI bleed, pseudo seizure, seizure, vasovagal episode. Data reviewed: vital signs, nurses notes, EMS record, lab test result(s), EKG, radiologic studies, CT scan, plain films. Consideration of Admission/Observation Escalation of care including admission/observation considered. I considered the following discharge prescriptions or medication management in the emergency department Medications were administered in the Emergency Department. See MAR. Test considered but Not performed: Ultrasound no 2d echo. Care significantly affected by the following chronic conditions: Diabetes, Hypertension, Chronic Obstructive Pulmonary Disease, asthma, high cholesterol. 01/12 11:08 Order name: Basic Metabolic Panel; Complete Time: 12:14 [facility] 01/12 11:08 Order name: CBC with Diff [facility] 01/12 11:08 Order name: LFT's; Complete Time: 12:14 [facility] 01/12 11:08 Order name: Magnesium; Complete Time: 12:14 [facility] 01/12 11:08 Order name: NT PRO-BNP; Complete Time: 12:14 [facility] 01/12 11:08 Order name: PT-INR; Complete Time: 11:58 [facility] 01/12 11:08 Order name: Troponin HS; Complete Time: 12:14 [facility] 01/12 11:08 Order name: Lipase; Complete Time: 12:14 [facility] 01/12 11:08 Order name: Urinalysis w/ reflexes [facility] 01/12 11:08 Order name: TSH; Complete Time: 12:14 [facility] 01/12 11:52 Order name: CBC Smear Scan [facility]MO 01/12 12:06 Order name: SARS RAPID [facility] 01/12 12:06 Order name: Flu [facility] 01/12 13:57 Order name: Urinalysis w/ reflexes [facility]MO 01/12 13:57 Order name: Basic Metabolic Panel EDMS 01/12 13:57 Order name: Basic Metabolic Panel [facility]MS 01/12 13:57 Order name: CBC with Automated Diff [facility]MS 01/12 13:57 Order name: CBC with Automated Diff EDMS 01/12 13:57 Order name: Magnesium EDMS 01/12 13:57 Order name: Magnesium EDMS 01/12 13:57 Order name: Phosphorus EDMS 01/12 13:57 Order name: Phosphorus EDMS 01/12 13:57 Order name: Troponin High Sensitivity [facility]MS 01/12 13:57 Order name: Troponin High Sensitivity [facility]MS 01/12 13:57 Order name: Troponin High Sensitivity [facility] 01/12 13:57 Order name: Troponin High Sensitivity [facility] 01/12 14:08 Order name: Blood Culture Adult (2) [facility] 01/12 14:08 Order name: Lactate w/ 2H reflex if indic. [facility] 01/12 14:12 Order name: Hemoglobin A1c [facility] 01/12 14:12 Order name: Procalcitonin [facility] 01/12 14:12 Order name: T4 Free [facility] 01/12 11:08 Order name: XRAY Chest (1 view); Complete Time: 12:05 [facility] 01/12 11:08 Order name: CT Traumagram (Head C Spine CAP W Con) [facility] 01/12 14:12 Order name: Echo with Doppler [facility] 01/12 14:12 Order name: Echo with Doppler [facility] 01/12 14:12 Order name: ERT ORTHOSTATIC V/S [facility] 01/12 10:44 Order name: EKG; Complete Time: 11:19 bp 01/12 13:57 Order name: Heart Healthy [facility] 01/12 10:44 Order name: EKG - Nurse/Tech; Complete Time: 10:44 bp 01/12 11:08 Order name: Cardiac monitoring; Complete Time: 11:08 [facility] 01/12 11:08 Order name: IV Saline Lock; Complete Time: 11:08 [facility] 01/12 11:08 Order name: Labs collected and sent; Complete Time: 11:23 [facility] 01/12 11:08 Order name: O2 Per Protocol; Complete Time: 11:08 [facility] 01/12 11:08 Order name: O2 Sat Monitoring; Complete Time: 11:08 [facility] EC:20 Rate is 78 beats/min. Rhythm is regular. QRS [place] is Normal. IA interval is normal. QRS trent interval is normal. QT interval is normal. No Q waves. T waves are Normal. No ST changes noted. Clinical impression: NSR w/ Non-specific ST/T Changes and No evidence of ischemia. Interpreted by me. Reviewed by me. Administered Medications: 11:20 Drug: NS 0.9% IV 1000 ml Route: IV; Rate: 1 bolus; Site: right forearm; bp 14:58 Follow up: IV Status: Completed infusion; IV Intake: 1000ml bp 11:20 Drug: Famotidine IVP 20 mg Route: IVP; Site: right forearm; bp 14:58 Follow up: Response: No adverse reaction bp 14:52 Drug: Rocephin IV 2 grams Route: IV; Rate: per protocol; Site: right forearm; bp 14:58 Follow up: IV Status: Completed infusion; IV Intake: 100ml bp 14:52 Drug: Zithromax IVPB 500 mg Route: IVPB; Infused Over: 1 hrs; Site: right forearm; bp 14:57 Follow up: IV Status: Completed infusion; IV Intake: 250ml bp 14:52 Drug: NS 0.9% IV 1000 ml Route: IV; Rate: 1 bolus; Site: right forearm; bp 14:57 Follow up: IV Status: Infusion continued upon admission bp Disposition Summary: 01/12/23 11:18 Hospitalization Ordered Provider: Vlad Bland cha Condition: Fair trent Problem: new trent Symptoms: have improved trent Bed/Room Type: Standard trent Hospitalization Status: Inpatient Admission(01/12/23 14:11) trent Location: Telemetry/MedSurg (Inpatient)(01/12/23 14:11) trent Room Assignment: 409(01/12/23 14:34) eb Diagnosis - Fall on same level, unspecified trent - Syncope Near trent - Weakness trent - Pneumonia due to other specified bacteria - multifocal right lung trent Forms: - Medication Reconciliation Form trent - SBAR form trent Signatures: Dispatcher [employer] EDFeng Silva MD MD cha Peltier, Brian, RN RN bp Trish March Corrections: (The following items were deleted from the chart) 14:06 11:18 trent eb 14:11 11:18 Observation trent trent 14:11 11:18 Telemetry/MedSurg (observation) trent trent 14:11 14:[address] [place] [address] 14:34 14:11 trent eb
--- NOTE | 2023-01-12 11:18 | ER ---
Nurse's Notes [facility] [place] [place] Name: Dolores Pérez Age: 62 yrs Sex: Female : 1960 Arrival Date: 01/12/2023 Time: 10:24 Bed 6 Private MD: Diagnosis: Fall on same level, unspecified;Syncope Near;Weakness;Pneumonia due to other specified bacteria-multifocal right lung Presentation: 01/12 10:34 Chief complaint: EMS states: DIZZINESS AND SYNCOPE THIS AM. Coronavirus screen: At this bp time, the client does not indicate any symptoms associated with coronavirus-19. Ebola Screen: No symptoms or risks identified at this time. Initial Sepsis Screen: Does the patient meet any 2 criteria? No. Patient's initial sepsis screen is negative. Does the patient have a suspected source of infection? No. Patient's initial sepsis screen is negative. Risk Assessment: Do you want to hurt yourself or someone else? Patient reports no desire to harm self or others. Onset of symptoms was January 12, 2023. Care prior to arrival: IV initiated. 20 GA, in the right antecubital area, Glucose check: 325. 10:34 Method Of Arrival: EMS: [facility] bp 10:34 Acuity: AARON 3 bp Triage Assessment: 10:35 General: Appears in no apparent distress. Behavior is cooperative, appropriate for age, bp anxious. Pain: Complains of pain in right temporal area, left elbow and right knee. Historical: - Allergies: 10:35 Prednisone; bp 10:35 Sulfa (Sulfonamide Antibiotics); bp 10:35 peanuts; bp 10:35 NSAIDS; bp - Home Meds: 10:35 levothyroxine 125 mcg tab once daily [Active]; ropinirole oral [Active]; Trazodone Oral bp [Active]; Spironolactone Oral [Active]; losartan oral [Active]; Plavix 75 mg Oral tablet daily [Active]; Metformin Oral [Active]; Lipitor Oral [Active]; gabapentin oral [Active]; sertraline oral [Active]; Alprazolam Oral [Active]; - PMHx: 10:35 Asthma; COPD; diabetes mellitus; High Cholesterol; Hypertension; Hypothyroidism; bp Transient cerebral ischemia; Anxiety; Depressive disorder; - Immunization history:: Adult Immunizations up to date. - Social history:: Smoking status: Patient denies any tobacco usage or history of. - Family history:: not pertinent. Screenin:00 Tuberculosis screening: No symptoms or risk factors identified. hb 13:10 [facility] ED Fall Risk Assessment (Adult) Score/Fall Risk Level 0 - 2 = Low Risk hb Oriented to surroundings, Maintained a safe environment. Abuse screen: Denies threats or abuse. Denies injuries from another. Nutritional screening: No deficits noted. Assessment: 12:45 Reassessment: Admission ordered, awaiting inpatient orders at this time. NAD, VSS. hb 14:55 Reassessment: ADMIT COMPLETE FOR 409 TO SHANE STANLEY. bp Vital Signs: 10:34 BP 112 / 80; Pulse 85; Resp 18; Temp 98; Pulse Ox 96% ; Weight 58.97 kg; Height 5 ft. 7 bp in. ; 11:30 BP 122 / 58; Pulse 83; Resp 16; Pulse Ox 97% on R/A; eh3 13:00 BP 126 / 61; Pulse 65; Resp 17; Pulse Ox 98% on R/A; hb 14:55 BP 125 / 60; Pulse 72; Resp 16; Pulse Ox 98% ; bp 10:34 Body Mass Index 20.36 (58.97 kg, 170.18 cm) bp [place] Coma Score: 11:14 Eye Response: spontaneous(4). Motor Response: obeys commands(6). Verbal Response: ternt oriented(5). Total: 15. 11:16 Eye Response: spontaneous(4). Motor Response: obeys commands(6). Verbal Response: trent oriented(5). Total: 15. ED Course: 10:30 Patient arrived in ED. eb 10:34 Hiro Valentin, RN is Primary Nurse. bp 10:35 Triage completed. bp 10:35 Arm band placed on. bp 10:38 Feng Tian MD is Attending Physician. trent 10:43 Maintain EMS IV. Dressing intact. Good blood return noted. Site clean \T\ dry. Gauge \T\ bp site: 20 GA R AC. 11:17 Vlad Bland MD is Hospitalizing Provider. trent 11:28 XRAY Chest (1 view) In Process Unspecified. EDMS 12:26 CT Traumagram (Head C Spine CAP W Con) In Process Unspecified. EDMS 12:48 Flu Sent. hb 12:48 SARS RAPID Sent. hb 14:55 Patient has correct armband on for positive identification. Bed in low position. Call bp light in reach. Side rails up X2. 14:55 No provider procedures requiring assistance completed. Patient admitted, IV remains in bp place. Administered Medications: 11:20 Drug: NS 0.9% IV 1000 ml Route: IV; Rate: 1 bolus; Site: right forearm; bp 14:58 Follow up: IV Status: Completed infusion; IV Intake: 1000ml bp 11:20 Drug: Famotidine IVP 20 mg Route: IVP; Site: right forearm; bp 14:58 Follow up: Response: No adverse reaction bp 14:52 Drug: Rocephin IV 2 grams Route: IV; Rate: per protocol; Site: right forearm; bp 14:58 Follow up: IV Status: Completed infusion; IV Intake: 100ml bp 14:52 Drug: Zithromax IVPB 500 mg Route: IVPB; Infused Over: 1 hrs; Site: right forearm; bp 14:57 Follow up: IV Status: Completed infusion; IV Intake: 250ml bp 14:52 Drug: NS 0.9% IV 1000 ml Route: IV; Rate: 1 bolus; Site: right forearm; bp 14:57 Follow up: IV Status: Infusion continued upon admission bp Medication: 14:55 VIS not applicable for this client. bp Intake: 14:57 IV: 250ml; Total: 250ml. bp 14:58 IV: 100ml; Total: 350ml. bp 14:58 IV: 1000ml; Total: 1350ml. bp Outcome: 11:18 Decision to Hospitalize by Provider. [facility] 14:55 Admitted to Med/surg accompanied by tech, family with patient, via wheelchair, room bp 409, with chart, Report called to SHANE STANLEY 14:55 Condition: stable 14:55 Instructed on the need for admit. 15:05 Patient left the ED. bp Signatures: Dispatcher [employer] EDFeng Silva MD MD cha Baxter, Heather, RN RN Hiro Bee, RN RN Trish Henry Erin, JADEN RN eh3
[2023-01-12 11:42] LABS: Protime INR 1.02
[2023-01-12 11:47] LABS: Absolute Lymphocytes (CBC) 0.7 K/uL (0.7-4.9); Hematocrit 31.8 % (36.0-45.0); Lymphocytes % 5.1 % (15.3-44.8); MCV 91.3 fL (80-100); MPV 8.8 fL (7.6-11.3); RBC Red Blood Cell Count 3.49 M/uL (3.86-4.86)
[2023-01-12] MEDS ORDERED: NA CHLORIDE 0.9% 1,000 ML ONE ×2 (11:50→14:45)
[2023-01-12] MEDS ORDERED: FAMOTIDINE 20 MG/2 ML VIAL IV ONE (11:50)
--- NOTE | 2023-01-12 11:59 | RAD REPORT ---
EXAM DESCRIPTION: RADChest Single View01/12/2023 11:26 am CLINICAL HISTORY: COUGH COMPARISON: Chest Pa And Lat (2 Views) dated 09/06/2022; Chest Single View dated 05/08/2022; Chest Sing le View dated 01/11/2022; Chest Single View dated 12/01/2021 TECHNIQUE: Portable AP view of the chest. FINDINGS: The lungs show no focal consolidation. Mild perihilar streaky opacities, could reflect bro nchial wall thickening. No pneumothorax or effusion. The cardiomediastinal contours are unremarkable . IMPRESSION: Findings suggestive of reactive airway changes or viral infection. No evidence of focal pneumonia.
[2023-01-12 12:05] LABS: ALT/SGPT 18 U/L (13-56); AST/SGOT 12 U/L (15-37); Albumin 3.8 g/dL (3.4-5.0); Alkaline Phosphatase 73 U/L (45-117); BUN Blood Urea Nitrogen 15 mg/dL (7-18); Bicarbonate 24 mEq/L (21-32); Bilirubin Total 0.3 mg/dL (0.2-1.0); Glomerular Filtration Rate 66 ml/min (=/>90); Glucose Level 243 mg/dL (74-106); Lipase 19 U/L (13-75); Magnesium 2.2 mg/dL (1.6-2.4); NT PRO-BNP 145 pg/mL (<125); Potassium 3.8 mEq/L (3.5-5.1); Protein, Total 7.4 g/dL (6.4-8.2); Sodium Level 130 mEq/L (136-145); Thyroid Stimulating Hormone 0.085 uIU/mL (0.358-3.740); Troponin High Sensitivity 3.5 pg/mL (<58.9)
[2023-01-12 12:08] LABS: Bilirubin Direct < 0.1 mg/dL (0-0.2); Bilirubin Indirect, Calculated ND mg/dL (0.2-0.8)
[2023-01-12 12:22] LABS: Urine Bacteria None Seen /HPF (<20); Urine Bilirubin NEGATIVE (Negative); Urine Blood Negative (Negative); Urine Clarity Turbid (Clear); Urine Color Light-Yellow (Yellow); Urine Glucose 1+ (Negative); Urine Mucus Slight /HPF (None Seen); Urine Protein NEGATIVE (Negative); Urine RBC None Seen /HPF (None Seen); Urine Urobilinogen Normal (Normal); Urine pH 5.5 (5.0-7.0)
[2023-01-12 12:52] LABS: Blood Morphology Comment NOT SEEN (NOT SEEN); Platelet Estimate ADEQ; White Blood Cell Scan NEUTROPHILIA (OK)
[2023-01-12 13:13] LABS: SARS-CoV-2 Antigen Rapid Res Negative (Negative)
--- NOTE | 2023-01-12 13:25 | RAD REPORT ---
EXAM DESCRIPTION: CT - Head C Spine Cap Cheikh Quiles - 01/12/2023 12:24 pm CLINICAL HISTORY: PAIN. Dizziness and syncope. COMPARISON: Chest Single View dated 01/12/2023; Chest For Pe Angio dated 05/08/2022 TECHNIQUE: Head and cervical spine CT images were obtained without IV contrast. Chest, abdomen, and pelvis CT images were obtained following intravenous administration of 95 mL Isovue-300. Multiplanar reformats were generated and reviewed. All CT scans are performed using dose optimization technique as appropriate and may include automated exposure control or mA/KV adjustment according to patient size. FINDINGS: CT HEAD: No intracranial hemorrhage, mass effect, or edema. No evidence of acute territorial infarct. No midli ne shift or abnormal fluid collection. The ventricles are normal in caliber and configuration for age . Basal cisterns are patent. Mastoid aircells and paranasal sinuses are clear. No acute skull fractur e. CT CERVICAL SPINE: No acute cervical spine fracture or subluxation. Vertebral body heights are well maintained. Facet iveth ints are normal in alignment, with mild degenerative changes. Multilevel disc space narrowing, most p ronounced at C5-6. No hyperattenuating canal hematoma. Prevertebral and paraspinous soft tissues are unremarkable. CT CHEST: No pneumothorax, pulmonary contusion or pleural fluid collection. Multifocal airspace opacities throu ghout the right lung, most confluent in the peripheral right basal lower lobe. Left lung is clear. No mediastinal hematoma and the aorta and pulmonary arteries are unremarkable. No chest will mass or ab normal axillary finding. No displaced rib fracture or other significant bony finding. CT ABDOMEN/ PELVIS: No evidence of traumatic injury to solid abdominal viscera. Right lower renal pole calculi, largest m easuring 4 millimeter. Small hiatal hernia. Colonic diverticulosis. Gallbladder and biliary tree are unremarkable. No bowel injury or significant finding. No free air, free fluid or abnormal fat strandi ng. No urinary bladder abnormality. No significant bony finding. IMPRESSION: No acute traumatic abnormalities. Multifocal airspace opacities throughout the right lung most confluent in the peripheral right basal lower lobe, concerning for pneumonia. Other incidental findings as above, including nonobstructing right lower renal pole calculi.
--- NOTE | 2023-01-12 13:58 | P.HP ---
Certification for Inpatient Patient admitted to: Observation With expected LOS: <2 Midnights Patient will require the following post-hospital care: None Practitioner: I am a practitioner with admitting privileges, knowledge of patient current condition, hospital course, and medical plan of care. Services: Services provided to patient in accordance with Admission requirements found in Title 42 Section 412.3 of the Code of Federal Regulations Patient History Date of Service: 01/12/23 Reason for admission: Syncope History of Present Illness: Ms. Dolores Pérez is a 62 year old female who has a past medical history of a possible transient ischemic attack, type II diabetes mellitus, cervical radiculopathy, hypertension, hypothyroidism, dyslipidemia, asthma, depression, anxiety, and restless leg syndrome who presents to the [facility] Emergency Department for syncope. She reports that, this morning around 04:30 AM, while walking into her kitchen to taken her morning medications, she began to feel significant dizziness. She states that she does not remember any other events, except waking up on the floor. She believes she hit her head, but does not recall the events. She denies any obvious inciting or alleviating factors. However, she states that, about 3 weeks ago, her PCP started her on losartan-hydrochlorothiazide for hypertension. On review of systems, she denies any fevers, chills, headaches, chest pain, palpitations, shortness of breath, wheezing, cough, abdominal pain, nausea/vomiting, diarrhea, constipation, hematochezia, melena, dysuria, hematuria, myalgia, or any other symptoms. She presented to the Emergency Department for further evaluation. Upon presentation, her vital signs were stable. Her laboratory studies were notable for a white blood cell count of 13,300, a sodium of 130, a glucose of 243, and a TSH of 0.085. Blood cultures x 2 were obtained. EKG was without STEMI criteria. Chest x-ray revealed findings concerning for a viral infection/reactive airway disease. Her CT head/cervical spine/chest/abdomen/pelvis revealed, "no acute traumatic abnormalities. Multifocal airspace opacities throughout the right lung most confluent in the peripheral right basal lower lobe, concerning for pneumonia. Other incidental findings as above, including nonobstructing right lower renal pole calculi." In the Emergency Department, she was given ceftriaxone, azithromycin, famotidine, and 2 L Normal Saline. She was admitted to the General Internal Medicine service for further evaluation. Allergies aspirin Allergy (Verified 11/17/19 11:43) Hives/Rash sesame seed Allergy (Verified 11/17/19 11:43) Anaphylaxis Sulfa (Sulfonamide Antibiotics) [Sulfa(Sulfonamide Antibiotics)] Allergy (Verified 11/17/19 11:43) Anaphylaxis GRAPES Allergy (Uncoded 11/17/19 11:43) Unknown NSAIDS Allergy (Uncoded 11/17/19 11:43) Hives/Rash peanuts Allergy (Uncoded 11/17/19 11:43) Anaphylaxis oranges Adverse Reaction (Uncoded 11/17/19 11:43) reflux Home medications list reviewed: Yes Home Medications: Albuterol Sulfate [Proair Respiclick] 2 puff IH Q8HP PRN 09/10/16 Atorvastatin Calcium [Lipitor*] 40 mg PO DAILY 09/10/16 Clopidogrel Bisulfate [Plavix*] 75 mg PO DAILY 09/10/16 Levothyroxine [Synthroid*] 0.1 mg PO DAILY 09/10/16 ALPRAZolam [Alprazolam] 0.25 mg PO DAILY 09/24/18 Fluticasone/Umeclidin/Vilanter [Trelegy Ellipta 200-62.5-25] 1 puff IN DAILY 01/12/23 Gabapentin 300 mg PO TID 01/12/23 Losartan/Hydrochlorothiazide [Losartan-Hctz 100-25 mg Tab] 1 each PO DAILY 01/12/23 Metformin HCl [Metformin HCl ER] 750 mg PO DAILY 01/12/23 Ropinirole HCl 0.25 mg PO BEDTIME 01/12/23 Sertraline [Zoloft] 100 mg PO DAILY 01/12/23 Spironolactone 25 mg PO DAILY 01/12/23 Trazodone HCl 100 mg PO BEDTIME 01/12/23 - Past Medical/Surgical History Diabetic: No -: Hypertension -: Hyperlipidemia -: Hypothyroidism -: Asthma -: GERD -: Anxiety -: Depression -: TIA? -: DM2 -: rhinoplasty -: vocal nodules removed -: adenoids removed - Family History Father -: Stroke, Other (see notes) Notes: heart attack Mother -: GI disease, Cancer Notes: colorectal cancer, chrons disease - Social History Alcohol use: No CD- Drugs: No Caffeine use: Yes Review of Systems General: Weakness (generalized) Eyes: Unremarkable ENT: Unremarkable Respiratory: Cough Cardiovascular: Unremarkable Gastrointestinal: Unremarkable Genitourinary: Unremarkable Musculoskeletal: Unremarkable Integumentary: Unremarkable Neurological: Other (syncope) Lymphatics: Unremarkable Physical Examination - Vital Signs Temperature: 98.0 F Blood Pressure: 112/80 Pulse: 85 Respirations: 18 Pulse Ox (%): 96 - Physical Exam General: Alert, In no apparent distress, Oriented x3 HEENT: Atraumatic, Mucous membr. moist/pink, Sclerae nonicteric Neck: JVD not distended Respiratory: Diminished, Rhonchi/gurgles (right lower lung grimm) Cardiovascular: No edema, Regular rate/rhythm, Normal S1 S2, No gallops, No rubs, No murmurs Gastrointestinal: Normal bowel sounds, Soft and benign, Non-distended, No tenderness, No rebound, No guarding Musculoskeletal: No clubbing, Other (small cut to left elbow, small bruise to right anterior cobian) Integumentary: No rashes Neurological: Normal speech, Normal affect - Studies Laboratory Data (last 24 hrs) 01/12/23 11:21: PT 11.2, INR 1.02 01/12/23 11:21: WBC 13.30 H, Hgb 10.5 L, Hct 31.8 L, Plt Count 275 01/12/23 11:21: Sodium 130 L, Potassium 3.8, BUN 15, Creatinine 0.96, Glucose 243 H, Magnesium 2.2, Total Bilirubin 0.3, AST 12 L, ALT 18, Alkaline Phosphatase 73, Lipase 19 Microbiology Data (last 24 hrs): 01/12/23 12:46 Nasopharnyx Influenza Type A Antigen Screen - Final 01/12/23 12:46 Nasopharnyx Influenza Type B Antigen Screen - Final Assessment and Plan - Plan # Syncope Differential diagnoses include, but are not limited to, vasovagal syncope, ortho static hypotension, cardiac etiology (i.e. arrhythmia, valvulopathy), and neurogenic etiologies. She was also recently started on losartan- hydrochlorothiazide, which may be contributing to her syncopal episoe. - Orthostatic vital signs Telemetry - EKG, serial troponin - Transthoracic echocardiogram - Serial neuro checks # Suspect Aspiration Pneumonia due to Syncope - Evaluation thus far: - Does not meet sepsis criteria - Procalcitonin = pending - Infulenza = negative - CT head/cervical spine/chest/abdomen/pelvis revealed, "no acute traumatic abnormalities. Multifocal airspace opacities throughout the right lung most confluent in the peripheral right basal lower lobe, concerning for pneumonia. Other incidental findings as above, including nonobstructing right lower renal pole calculi." - Management plan: - Continue ceftriaxone + azithromycin - Consulted Respiratory Therapy - Supplemental oxygen to maintain SpO2 > 92% - As needed guaifenesin, benzonatate - Encouraged incentive spirometry # Hyperglycemia in Type II Diabetes Mellitus - Hgb A1c ordered - Hold home metformin - Correction scale insulin # Hyperthyroidism due to Oversupplementation # Hypothyroidism - TSH 0.085 - Requested Free T4 - Hold home levothyroxine # Right Cervical Radiculopathy - Hold gabapentin given syncopal episode # Cerebrovascular Disease - reported possible prior Transient Ischemic Attack # Hypertension # Dyslipidemia - Continue home atorvastatin, clopidogrel - Hold home losartan-hydrochlorothiazide, spironolactone # Asthma - Continue home Trelegy, PRN albuterol # Depression # Anxiety - Continue home sertraline, alprazolam # Restless Leg Syndrome - Continue home ropinirole Vlad Bland M.D. - Advance Directives Does patient have a Living Will: No Does patient have a Durable POA for Healthcare: No
[2023-01-12] MEDS ORDERED: CEFTRIAXONE 1000 MG/VIAL ONE (14:44)
[2023-01-12] MEDS ORDERED: AZITHROMYCIN 500 MG INJ IVPB ONE (14:45)
[2023-01-12] MEDS ORDERED: guaiFENesin 100 MG/5 ML UCUP PO PRN (15:20)
[2023-01-12] MEDS ORDERED: Albuterol Sulfate [Proair Respiclick] 90 MCG Aer.Pow.Ba IH PRN (15:22)
[2023-01-12 15:23] VITALS: O2SAT 98
[2023-01-12] MEDS ORDERED: GLUCAGON 1 MG/VIAL IM PRN (15:29)
[2023-01-12] MEDS ORDERED: D50W 25 GM/50 ML SYRINGE IV PRN (15:29)
[2023-01-12] MEDS ORDERED: D10W 125 ML IV PRN (15:32)
[2023-01-12] MEDS ORDERED: ACETAMINOPHEN 325 MG TABLET ONE (15:33)
[2023-01-12 15:42] VITALS: BMI 20.3
[2023-01-12] MEDS: INSULIN -REGULAR HUMAN 50 UNIT/0.5 ML ML SQ SCH ×2 (16:18→21:00)
[2023-01-12] MEDS: ACETAMINOPHEN 325 MG TABLET PO PRN (19:53)
[2023-01-12] MEDS ORDERED: ATORVASTATIN 40 MG TAB PO SCH (21:00)
[2023-01-12] MEDS ORDERED: ROPINIROLE HCL 0.25 MG TAB PO SCH (21:00)
[2023-01-12] MEDS: BENZONATATE 100 MG CAP PO PRN (22:26)
[2023-01-13] MEDS: ACETAMINOPHEN 325 MG TABLET PO PRN ×2 (00:21→13:44)
[2023-01-13] MEDS ORDERED: CYCLOBENZAPRINE 10 MG TAB PO ONE (02:05)
[2023-01-13 03:57] LABS: Absolute Lymphocytes (CBC) 1.8 K/uL (0.7-4.9); Hematocrit 29.1 % (36.0-45.0); Lymphocytes % 22.7 % (15.3-44.8); MCV 90.4 fL (80-100); MPV 9.1 fL (7.6-11.3); RBC Red Blood Cell Count 3.22 M/uL (3.86-4.86)
[2023-01-13 04:03] LABS: Magnesium 2.3 mg/dL (1.6-2.4); Phosphorus 2.4 mg/dL (2.5-4.9); Potassium 3.7 mEq/L (3.5-5.1)
[2023-01-13] MEDS: INSULIN -REGULAR HUMAN 50 UNIT/0.5 ML ML SQ SCH ×3 (07:30→16:30)
[2023-01-13] MEDS ORDERED: AZITHROMYCIN IV 500 MG in NA CHLORIDE 0.9% 250 ML IVPB SCH (09:00)
[2023-01-13] MEDS ORDERED: CLOPIDOGREL 75 MG TABLET PO SCH (09:00)
[2023-01-13] MEDS ORDERED: Fluticasone/Umeclidin/Vilanter [Trelegy Ellipta 200-62.5-25] Blst.W.Dev IH SCH (09:00)
[2023-01-13] MEDS ORDERED: ALPRAZOLAM 0.25 MG TABLET PO SCH (09:00)
[2023-01-13] MEDS ORDERED: SERTRALINE HCL 100 MG TAB PO SCH (09:00)
[2023-01-13] MEDS ORDERED: ENOXAPARIN 40 MG/0.4 ML SQ SCH (09:00)
[2023-01-13] MEDS ORDERED: CEFTRIAXONE 1,000 MG in NA CHLORIDE 0.9% 50 ML IVPB SCH (09:00)
[2023-01-13] MEDS: BENZONATATE 100 MG CAP PO PRN (09:12)
[2023-01-13 10:14] VITALS: TEMP 97.9
--- NOTE | 2023-01-13 17:13 | EKG ---
Test Date: 2023-01-12 Test Time: 10:43:18 Loss Prevention Specialist: JOSE MEASUREMENT RESULTS: Intervals: Rate: 78 MI: 154 QRSD: 98 QT: 388 QTc: 442 [place]: P: 62 MI: 154 QRS: 34 T: 63 INTERPRETIVE STATEMENTS: Normal sinus rhythm Normal ECG Compared to ECG 11/30/2022 15:23:01 No significant changes Electronically Signed On 01-13-23 17:11:05 CDT by Stephen Childress
--- NOTE | 2023-01-13 18:22 | P.DS ---
Admission Date: 01/12/23 Discharge Date: 01/13/23 Disposition: ROUTINE DISCHARGE Discharge Condition: FAIR Reason for Admission: Syncope Brief History of Present Illness: Ms. Dolores Pérez is a 62 year old female who has a past medical history of a possible transient ischemic attack, type II diabetes mellitus, cervical radiculopathy, hypertension, hypothyroidism, dyslipidemia, asthma, depression, anxiety, and restless leg syndrome who presents to the [facility] Emergency Department for syncope. She reports that, while walking into her kitchen to taken her morning medications, she began to feel significant dizziness. No known preceding event or symptoms. She reported hitting her head. She stated that, about 3 weeks ago, her PCP started her on losartan-hydrochlorothiazide for hypertension. Upon presentation, her vital signs were stable. Her laboratory studies were notable for a white blood cell count of 13,300, a sodium of 130, a glucose of 243, and a TSH of 0.085. Blood cultures x 2 were obtained. EKG was without STEMI criteria. Chest x-ray revealed findings concerning for a viral infection/reactive airway disease. Her CT head/cervical spine/chest/abdomen/pelvis revealed, "no acute traumatic abnormalities. Multifocal airspace opacities throughout the right lung most confluent in the peripheral right basal lower lobe, concerning for pneumonia. Other incidental findings as above, including nonobstructing right lower renal pole calculi." In the Emergency Department, she was given ceftriaxone, azithromycin, famotidine, and 2 L Normal Saline. She was admitted to the General Internal Medicine service for further evaluation. Hospital Course: Patient was placed under observation on the medical floor for syncope work-up. Orthostatic vitals were negative. Echocardiogram done showed normal EF, no significant valvular abnormality. Patient was ambulatory, tolerated her diet. EKG on presentation demonstrated normal sinus rhythm. Orthostatic hypotension s econdary to antihypertensives suspected. Patient was recently started on losartan hydrochlorothiazide which has been discontinued on discharge. She is informed to monitor her blood pressure and to call her PCP for a different antihypertensive class as needed for hypertension. Vital Signs/Physical Exam: Temp Pulse Resp BP Pulse Ox 97.9 F 71 18 120/48 L 100 01/13/23 08:00 01/13/23 08:00 01/13/23 08:00 01/13/23 08:00 01/13/23 08:00 General: Alert, In no apparent distress, Oriented x3 HEENT: Mucous membr. moist/pink Neck: JVD not distended Respiratory: Clear to auscultation bilaterally, Normal air movement Cardiovascular: No edema, Regular rate/rhythm, Normal S1 S2 Gastrointestinal: Soft and benign, Non-distended, No tenderness Musculoskeletal: No swelling Integumentary: No rashes, No cyanosis Neurological: Normal strength at 5/5 x4 extr Laboratory Data at Discharge: WBC 7.90 thou/uL (4.3-10.9) 01/13/23 02:21 Hgb 10.1 g/dL (12.0-15.0) L 01/13/23 02:21 Hct 29.1 % (36.0-45.0) L 01/13/23 02:21 Plt Count 249 thou/uL (152-406) 01/13/23 02:21 PT 11.2 SECONDS (9.5-12.5) 01/12/23 11:21 INR 1.02 01/12/23 11:21 Sodium 137 mEq/L (136-145) D 01/13/23 02:21 Potassium 3.7 mEq/L (3.5-5.1) 01/13/23 02:21 BUN 9 mg/dL (7-18) 01/13/23 02:21 Creatinine 0.67 mg/dL (0.55-1.02) 01/13/23 02:21 Glucose 159 mg/dL (74-106) H 01/13/23 02:21 Phosphorus 2.4 mg/dL (2.5-4.9) L 01/13/23 02:21 Magnesium 2.3 mg/dL (1.6-2.4) 01/13/23 02:21 Total Bilirubin 0.3 mg/dL (0.2-1.0) 01/12/23 11:21 AST 12 U/L (15-37) L 01/12/23 11:21 ALT 18 U/L (13-56) 01/12/23 11:21 Alkaline Phosphatase 73 U/L (45-117) 01/12/23 11:21 Lipase 19 U/L (13-75) 01/12/23 11:21 Home Medications: Albuterol Sulfate [Proair Respiclick] 2 puff IH Q8HP PRN 09/10/16 Atorvastatin Calcium [Lipitor*] 40 mg PO DAILY 09/10/16 Clopidogrel Bisulfate [Plavix*] 75 mg PO DAILY 09/10/16 Levothyroxine [Synthroid*] 0.1 mg PO DAILY 09/10/16 ALPRAZolam [Alprazolam] 0.25 mg PO DAILY 09/24/18 Fluticasone/Umeclidin/Vilanter [Trelegy Ellipta 200-62.5-25] 1 puff IN DAILY 01/12/23 Gabapentin 300 mg PO TID 01/12/23 Metformin HCl [Metformin HCl ER] 750 mg PO DAILY 01/12/23 Pantoprazole Sodium [Protonix] 40 mg PO DAILY 01/12/23 Ropinirole HCl 0.25 mg PO BEDTIME 01/12/23 Sertraline [Zoloft*] 100 mg PO DAILY 01/12/23 Spironolactone 25 mg PO DAILY 01/12/23 Trazodone HCl 100 mg PO BEDTIME 01/12/23 Azithromycin [Zithromax] 500 mg PO DAILY #7 tab 01/13/23 Cefuroxime Axetil [Cefuroxime] 500 mg PO BID #14 tab 01/13/23 guaiFENesin [Robitussin 100MG/5ML*] 5 ml PO QID PRN #237 ml 01/13/23 New Medications: Cefuroxime Axetil [Cefuroxime] 500 mg PO BID #14 tab guaiFENesin [Robitussin 100MG/5ML*] 5 ml PO QID PRN #237 ml PRN Reason: COUGH - 2ND LINE Azithromycin [Zithromax] 500 mg PO DAILY #7 tab Diet: AHA Activity: Ad cynthia Followup: Unknown,U [Primary Care Provider] - Time spent managing pt's care (in minutes): 28
[2023-01-13 18:32] VITALS: BP 148/61
--- NOTE | 2023-01-14 06:58 | ECHO ---
HEIGHT: 5 ft 7 in WEIGHT: 130 lb 0 oz DATE OF STUDY: 01/13/[address]: Vlad Bland MD 2-DIMENSIONAL: YES M.MODE: YES DOPPLER: YES COLOR FLOW: YES TDS: PORTABLE: YES DEFINITY: BUBBLE STUDY: DIAGNOSIS: SYNCOPE CARDIAC HISTORY: CATHERIZATION: NO SURGERY: NO PROSTHETIC VALVE: NO PACEMAKER: NO MEASUREMENTS (cm) DIASTOLIC (NORMALS) SYSTOLIC (NORMALS) IVSd 1.0 (0.6-1.2) LA Diam 2.0 (1.9-4.0) LVEF 62% LVIDd 4.1 (3.5-5.7) LVIDs 2.8 (2.0-3.5) %FS 33% LVPWd 1.1 (0.6-1.2) Ao Diam 2.3 (2.0-3.7) 2 DIMENSIONAL ASSESSMENT: RIGHT ATRIUM: NORMAL LEFT ATRIUM: NORMAL RIGHT VENTRICLE: NORMAL LEFT VENTRICLE: NORMAL TRICUSPID VALVE: MILD TRICUSPID REGURGITATION MITRAL VALVE: MILD MITRAL REGURGITATION PULMONIC VALVE: NORMAL AORTIC VALVE: MILD AORTIC INSUFFICIENCY PERICARDIAL EFFUSION: NONE AORTIC ROOT: NORMAL LEFT VENTRICULAR WALL MOTION: NORMAL DOPPLER/COLOR FLOW: SEE BELOW COMMENTS: 1. NORMAL LEFT VENTRICULAR EJECTION FRACTION 60-65% 2. NORMAL WALL MOTION 3. NORMAL DIASTOLIC FUNCTION 4. MILD MITRAL REGURGITATION, AORTIC INSUFFICIENCY, TRICUSPID REGURGITATION TECHNOLOGIST: KANDY BERG
[2023-01-14] MEDS ORDERED: Fluticasone/Umeclidin/Vilanter [Trelegy Ellipta 200-62.5-25] Blst.W.Dev IH SCH (09:00)
== END 2023-01-13 18:50 | disposition home or self-care (01) ==
LOC: ER 10:24 → ERHOLD 13:53 → 4TH 14:34
PROVIDERS: ADMIT Internal Medicine; ATTEND Internal Medicine
DX: R55 Syncope and collapse (principal); I95.9 Hypotension, unspecified; I10 Essential (primary) hypertension; E03.9 Hypothyroidism, unspecified; E78.5 Hyperlipidemia, unspecified; E11.65 Type 2 diabetes mellitus with hyperglycemia; J45.909 Unspecified asthma, uncomplicated; F32.A Depression, unspecified; F41.9 Anxiety disorder, unspecified; M54.12 Radiculopathy, cervical region; G25.81 Restless legs syndrome; Z86.73 Personal history of transient ischemic attack (TIA), and cerebral infarction without residual deficits; Z88.2 Allergy status to sulfonamides
CPT/HCPCS: 96361; 93005; 93306; 87040 ×2; 85025 ×2; 81001; 80048 ×2; 36415 ×2; 83735 ×2; 84100; 85610; 82947 ×5; 80076; 83605; 84443; 83036; 84484 ×4; 84439; 83690; 84145; 83880; 87804 ×2; 70450; 72125; 71260; 74177; 71045; 94010; 96375; 96374; 99285; 87811; Q9967; J1650; J7050; J7030 ×2; J0696 ×2; G0378

== ENCOUNTER 2023-01-15 14:58 | Emergency (ER) | payer OTHER ==
[2023-01-15 16:51] LABS: Absolute Lymphocytes (CBC) 1.8 K/uL (0.7-4.9); Hematocrit 31.7 % (36.0-45.0); Lymphocytes % 23.1 % (15.3-44.8); MCV 90.2 fL (80-100); MPV 8.3 fL (7.6-11.3); RBC Red Blood Cell Count 3.51 M/uL (3.86-4.86)
[2023-01-15] MEDS ORDERED: FOLIC ACID 1 MG, MULTIVITAMINS INJ 10 ML, THIAMINE HCL 100 MG in NA CHLORIDE 0.9% 1,000 ML IV ONE (17:00)
[2023-01-15 17:01] LABS: Albumin 4.1 g/dL (3.4-5.0); Bilirubin Total 0.2 mg/dL (0.2-1.0); Potassium 3.4 mEq/L (3.5-5.1); Protein, Total 7.9 g/dL (6.4-8.2)
[2023-01-15] MEDS ORDERED: POTASSIUM 25 MEQ EFFERV TAB ONE (17:26)
--- NOTE | 2023-01-15 17:47 | RAD REPORT ---
EXAM DESCRIPTION: RAD - Chest Single View - 01/15/2023 5:35 pm CLINICAL HISTORY: COUGH COMPARISON: Chest Single View dated 01/12/2023; Chest Pa And Lat (2 Views) dated 09/06/2022; Chest Singl e View dated 05/08/2022; Chest Single View dated 01/11/2022 FINDINGS: Lines: None. Lungs: No evidence of edema or pneumonia. Pleural: No significant pleural effusions or pneumothorax. Cardiac: The heart size is within normal limits. Mediastinum: Within normal limits. Bones: No acute fractures. Other: None IMPRESSION: No acute cardiopulmonary disease.
--- NOTE | 2023-01-15 20:02 | RAD REPORT ---
EXAM DESCRIPTION: MRI - Brain Wo Cont - 01/15/2023 7:41 pm CLINICAL HISTORY: WEAKNESS COMPARISON: No comparisons TECHNIQUE: Sagittal T1-weighted images were obtained along with PD/heavily T2-weighted and T2-FLAIR images. Axial DWI and ADC mapping sequences were also obtained along with coronal heavily T2-weighted images were obtained. FINDINGS: No intracranial hemorrhage, mass or acute infarction. There is no edema or shift of midlin e structures. No extra-axial fluid collections. Signal voids are seen as a normal finding in the di r intracranial vessels. Mild T2/FLAIR hyperintense signal foci throughout the subcortical and deep wh ite matter. Mastoid air cells and paranasal sinuses are clear. IMPRESSION: No acute intracranial abnormality. Specifically, no evidence of acute infarct. Mild to m oderate chronic small vessel ischemic changes.
--- NOTE | 2023-01-15 20:16 | EDPHYS ---
Physician Documentation [facility] Name: Dolores Pérez Age: 62 yrs Sex: Female : 1960 Arrival Date: 01/15/2023 Time: 14:58 Bed 10 Private MD: Arianna Ford ED Physician Feng Tian HPI: 01/15 17:07 This 62 yrs old Female presents to ER via Wheelchair with complaints of Fall trent Injury - 3 days ago, Trouble Walking. 17:07 Details of fall: The patient fell from an upright position, while walking. Onset: The trent symptoms/episode began/occurred 3 day(s) ago. Associated injuries: The patient sustained left arm and right leg, contusion. Severity of symptoms: At their worst the symptoms were mild, in the emergency department the symptoms are unchanged. The patient has experienced similar episodes in the past, several times. Historical: - Allergies: 15:33 NSAIDS; ll1 15:33 peanuts; ll1 15:33 Prednisone; ll1 15:33 Sulfa (Sulfonamide Antibiotics); ll1 15:33 sesame seed; ll1 - PMHx: 15:33 COPD; depressive disorder; High Cholesterol; Hypertension; diabetes mellitus; Asthma; ll1 Anxiety; Hypothyroidism; Transient cerebral ischemia; - Immunization history:: Adult Immunizations up to date. - Social history:: Smoking status: Patient denies any tobacco usage or history of. ROS: 17:09 Constitutional: Negative for fever, chills, and weight loss, Eyes: Negative for injury, trent pain, redness, and discharge, ENT: Negative for injury, pain, and discharge, Neck: Negative for injury, pain, and swelling, Cardiovascular: Negative for chest pain, palpitations, and edema, Respiratory: Negative for shortness of breath, cough, wheezing, and pleuritic chest pain, Abdomen/GI: Negative for abdominal pain, nausea, vomiting, diarrhea, and constipation, Back: Negative for injury and pain, : Negative for injury, bleeding, discharge, and swelling, MS/Extremity: Negative for injury and deformity, Skin: Negative for injury, rash, and discoloration, Neuro: Negative for headache, weakness, numbness, tingling, and seizure, Psych: Negative for depression, anxiety, suicide ideation, homicidal ideation, and hallucinations, Allergy/Immunology: Negative for hives, rash, and allergies, Endocrine: Negative for neck swelling, polydipsia, polyuria, polyphagia, and marked weight changes, Hematologic/Lymphatic: Negative for swollen nodes, abnormal bleeding, and unusual bruising. 17:09 Neuro: Positive for weakness, of the right leg and left leg. Exam: 17:09 Constitutional: This is a well developed, well nourished patient who is awake, alert, trent and in no acute distress. Head/Face: Normocephalic, atraumatic. Eyes: Pupils equal round and reactive to light, extra-ocular motions intact. Lids and lashes normal. Conjunctiva and sclera are non-icteric and not injected. Cornea within normal limits. Periorbital areas with no swelling, redness, or edema. ENT: Nares patent. No nasal discharge, no septal abnormalities noted. Tympanic membranes are normal and external auditory canals are clear. Oropharynx with no redness, swelling, or masses, exudates, or evidence of obstruction, uvula midline. Mucous membranes moist. Neck: Trachea midline, no thyromegaly or masses palpated, and no cervical lymphadenopathy. Supple, full range of motion without nuchal rigidity, or vertebral point tenderness. No Meningismus. Chest/axilla: Normal chest wall appearance and motion. Nontender with no deformity. No lesions are appreciated. Cardiovascular: Regular rate and rhythm with a normal S1 and S2. No gallops, murmurs, or rubs. Normal PMI, no JVD. No pulse deficits. Respiratory: Lungs have equal breath sounds bilaterally, clear to auscultation and percussion. No rales, rhonchi or wheezes noted. No increased work of breathing, no retractions or nasal flaring. Abdomen/GI: Soft, non-tender, with normal bowel sounds. No distension or tympany. No guarding or rebound. No evidence of tenderness throughout. Back: No spinal tenderness. No costovertebral tenderness. Full range of motion. Female : Normal external genitalia. Skin: Warm, dry with normal turgor. Normal color with no rashes, no lesions, and no evidence of cellulitis. MS/ Extremity: Pulses equal, no cyanosis. Neurovascular intact. Full, normal range of motion. Neuro: Awake and alert, GCS 15, oriented to person, place, time, and situation. Cranial nerves II-XII grossly intact. Motor strength 5/5 in all extremities. Sensory grossly intact. Cerebellar exam normal. Normal gait. Psych: Awake, alert, with orientation to person, place and time. Behavior, mood, and affect are within normal limits. 17:09 Musculoskeletal/extremity: DVT Exam: No signs of deep vein thrombosis. no pain, no swelling, no tenderness, negative Homans' sign noted on exam, no appreciated bluish discoloration, no erythema, no increased warmth. Vital Signs: 15:30 BP 146 / 75; Pulse 84; Resp 16; Temp 98.5; Pulse Ox 98% ; Weight 58.97 kg; Height 5 ft. ll1 7 in. ; Pain 6/10; 16:39 BP 129 / 79; Pulse 74; Resp 18; Pulse Ox 100% on R/A; mb9 20:02 BP 122 / 81; Pulse 79; Resp 16; Pulse Ox 99% on R/A; mb9 15:30 Body Mass Index 20.36 (58.97 kg, 170.18 cm) ll1 15:30 Pain Scale: Adult ll1 MDM: 15:[address] [facility] 17:11 Differential diagnosis: abrasion, tendonitis. Differential Diagnosis. Data reviewed: [facility] vital signs, nurses notes, lab test result(s), radiologic studies, MRI, plain films. Consideration of Admission/Observation Escalation of care including admission/observation considered. I considered the following discharge prescriptions or medication management in the emergency department Medications were administered in the Emergency Department. See MAR. Test considered but Not performed: MRI: NO MRI LUMBAR , REVIEW RECENT TRAUMAGRAM. Care significantly affected by the following chronic conditions: Diabetes, Hypertension, Chronic Obstructive Pulmonary Disease, DEPRESSIVE, HIGH CHOLESTEROL. Counseling: I had a detailed discussion with the patient and/or guardian regarding: the historical points, exam findings, and any diagnostic results supporting the discharge/admit diagnosis, lab results, radiology results, the need for outpatient follow up, for definitive care, a family practitioner, a neurologist. 01/15 16:25 Order name: CBC with Diff; Complete Time: 17:06 [facility] 01/15 16:25 Order name: Comprehensive Metabolic Panel; Complete Time: 17:06 [facility] 01/15 16:25 Order name: Chest Single View XRAY; Complete Time: 18:07 [facility] 01/15 19:17 Order name: Brain Wo Cont; Complete Time: 20:15 EDMS 01/15 16:27 Order name: IV Start; Complete Time: 16:39 mb9 Administered Medications: 16:40 Drug: Thiamine IV 100 mg Route: IV; Rate: bolus; Site: right forearm; mb9 17:04 Drug: Banana Bag - (NS 0.9% IV 1000 ml, foLIC Acid IVPB 1 mg, Thiamine IV 100 mg, mb9 Multivitamin IV 1 amp) Route: IV; Rate: 500 ml/hr; Site: right forearm; 17:20 Drug: Potassium PO Effervescent Tablet 25 mEq Route: PO; mb9 20:02 Follow up: Response: No adverse reaction mb9 Disposition Summary: 01/15/23 20:15 Discharge Ordered Location: Home trent Problem: new trent Symptoms: have improved trent Condition: Stable trent Diagnosis - Weakness trent - Repeated falls trent - Abrasion of left elbow trent - Abrasion of lower leg trent - Hypokalemia trent Followup: trent - With: - When: 2 - 3 days - Reason: Recheck today's complaints, Continuance of care, Re-evaluation by your physician Followup: trent - With: - When: 2 - 3 days - Reason: Recheck today's complaints, Re-evaluation by your physician Discharge Instructions: - Discharge Summary Sheet trent - Potassium Content of Foods trent - Fall Prevention in the Home, Adult trent - Weakness trent - Fatigue trent - Weakness, [id number] trent - Hypokalemia trent - Deconditioning trent Forms: - Medication Reconciliation Form trent - Thank You Letter trent - Antibiotic Education trent - Prescription Opioid Use trent - Patient Portal [email or web address] trent Signatures: Dispatcher [employer] EDFeng Silva MD MD cha Lewis, Lynsay RN RN ll1 Cherise Encarnacion RN RN mb9 Corrections: (The following items were deleted from the chart) 19:17 16:26 MR STROKE PROTOCOL+MRI.RAD.BRZ ordered. EDUT EDMS
--- NOTE | 2023-01-15 20:16 | ER ---
Nurse's Notes [facility] Name: Dolores Pérez Age: 62 yrs Sex: Female : 1960 Arrival Date: 01/15/2023 Time: 14:58 Bed 10 Private MD: Arianna Ford Diagnosis: Weakness;Repeated falls;Abrasion of left elbow;Abrasion of lower leg;Hypokalemia Presentation: 01/15 15:30 Chief complaint: Patient states: 2 syncopal events Friday. Was seen here and admitted ll1 for possible aspiration pneumonia. Released Friday night. States she still has FERNANDO and pain in her extremities which causes her to worry about falling again. Coronavirus screen: Vaccine status: Patient reports receiving the 2nd dose of the covid vaccine. Client denies travel out of the [place] in the last 14 days. At this time, the client does not indicate any symptoms associated with coronavirus-19. Ebola Screen: Patient denies travel to an Ebola-affected area in the 21 days before illness onset. Initial Sepsis Screen: Does the patient meet any 2 criteria? No. Patient's initial sepsis screen is negative. Does the patient have a suspected source of infection? No. Patient's initial sepsis screen is negative. Risk Assessment: Do you want to hurt yourself or someone else? Patient reports no desire to harm self or others. Onset of symptoms was January 12, 2023. 15:30 Method Of Arrival: Wheelchair ll1 15:30 Acuity: AARON 4 ll1 16:52 Acuity: AARON 3 mb9 Triage Assessment: 15:33 General: Appears uncomfortable, Behavior is calm, cooperative, appropriate for age. ll1 Pain: Complains of pain in right leg Quality of pain is described as aching. Neuro: Reports headache weakness. Musculoskeletal: Reports pain in left arm and right leg. Historical: - Allergies: 15:33 NSAIDS; ll1 15:33 peanuts; ll1 15:33 Prednisone; ll1 15:33 Sulfa (Sulfonamide Antibiotics); ll1 15:33 sesame seed; ll1 - PMHx: 15:33 COPD; depressive disorder; High Cholesterol; Hypertension; diabetes mellitus; Asthma; ll1 Anxiety; Hypothyroidism; Transient cerebral ischemia; - Immunization history:: Adult Immunizations up to date. - Social history:: Smoking status: Patient denies any tobacco usage or history of. Screenin:38 [facility] ED Fall Risk Assessment (Adult) History of falling in the last 3 months, mb9 including since admission Yes- fall prone (multiple falls) (3 pts) Confusion or Disorientation No (0 pts) Intoxicated or Sedated No (0 pts) Impaired Gait Yes (1 pt) Mobility Assist Device Used Yes (1 pt) Altered Elimination No (0 pt) Score/Fall Risk Level 3 or more points = High Risk Oriented to surroundings, Maintained a safe environment, Educated pt \T\ family on fall prevention, incl call for assistance when getting out of bed. Abuse screen: Denies threats or abuse. Nutritional screening: No deficits noted. Tuberculosis screening: No symptoms or risk factors identified. Assessment: 16:38 General: Appears in no apparent distress. Pain: Complains of pain in right leg and mb9 head. Neuro: Gardner Agitation-Sedation Scale (RASS): 0 - Alert and Calm Level of Consciousness is awake, alert, obeys commands, Oriented to person, place, time, situation, Appropriate for age Reports headache. Respiratory: Airway is patent Respiratory effort is even, unlabored, Respiratory pattern is regular, symmetrical. Derm: Skin is pink, warm \T\ dry. Musculoskeletal: Range of motion: intact in all extremities. 18:55 Reassessment: No changes from previously documented assessment. Patient and/or family mb9 updated on plan of care and expected duration. Pain level reassessed. Patient is alert, oriented x 3, equal unlabored respirations, skin warm/dry/pink. 20:02 Reassessment: No changes from previously documented assessment. Patient and/or family mb9 updated on plan of care and expected duration. Pain level reassessed. Patient is alert, oriented x 3, equal unlabored respirations, skin warm/dry/pink. Vital Signs: 15:30 BP 146 / 75; Pulse 84; Resp 16; Temp 98.5; Pulse Ox 98% ; Weight 58.97 kg; Height 5 ft. ll1 7 in. ; Pain 6/10; 16:39 BP 129 / 79; Pulse 74; Resp 18; Pulse Ox 100% on R/A; mb9 20:02 BP 122 / 81; Pulse 79; Resp 16; Pulse Ox 99% on R/A; mb9 15:30 Body Mass Index 20.36 (58.97 kg, 170.18 cm) ll1 15:30 Pain Scale: Adult ll1 ED Course: 14:59 Patient arrived in ED. am2 15:00 Arianna Ford DO is Private Physician. am2 15:05 Feng Tian MD is Attending Physician. trent 15:33 Triage completed. ll1 15:35 Arm band placed on. ll1 15:38 Cherise Encarnacion, JADEN is Primary Nurse. mb9 15:38 Placed in gown. Bed in low position. Call light in reach. Side rails up X 1. Client mb9 placed on continuous cardiac and pulse oximetry monitoring. NIBP monitoring applied. 15:39 No provider procedures requiring assistance completed. mb9 16:25 Inserted saline lock: 22 gauge in right forearm, using aseptic technique. mb9 16:39 Comprehensive Metabolic Panel Sent. mb9 16:39 CBC with Diff Sent. mb9 17:36 Chest Single View XRAY In Process Unspecified. EDMS 19:25 Brain Wo Cont In Process Unspecified. EDMS 20:15 Arianna Ford DO is Referral Physician. trent 20:15 Davide Gonzalez MD is Referral Physician. trent 20:23 IV discontinued, intact, bleeding controlled, No redness/swelling at site. Pressure mb9 dressing applied. Administered Medications: 16:40 Drug: Thiamine IV 100 mg Route: IV; Rate: bolus; Site: right forearm; mb9 17:04 Drug: Banana Bag - (NS 0.9% IV 1000 ml, foLIC Acid IVPB 1 mg, Thiamine IV 100 mg, mb9 Multivitamin IV 1 amp) Route: IV; Rate: 500 ml/hr; Site: right forearm; 17:20 Drug: Potassium PO Effervescent Tablet 25 mEq Route: PO; mb9 20:02 Follow up: Response: No adverse reaction mb9 Medication: 15:38 VIS not applicable for this client. mb9 Outcome: 20:15 Discharge ordered by . trent 20:23 Discharged to home ambulatory. mb9 20:23 Condition: stable 20:23 Discharge instructions given to patient, Instructed on discharge instructions, follow up and referral plans. Demonstrated understanding of instructions, follow-up care. 20:23 Patient left the ED. mb9 Signatures: Dispatcher [employer] EDMS Feng Tian MD MD cha Moreno, Amanda [facility] Prabha Hummel RN RN ll1 Cherise Encarnacion RN RN mb9 Corrections: (The following items were deleted from the chart) 15:35 15:30 Chief complaint: Patient states: 2 syncopal events Friday. Was seen here and ll1 admitted for possible aspiration pneumonia. Released Friday. States she still has FERNANDO and pain in her extremities. ll1
[2023-01-15 21:59] VITALS: TEMP 98.5
[2023-01-15 22:02] VITALS: BP 122/81; O2SAT 99
== END 2023-01-15 20:23 | disposition home or self-care (01) ==
LOC: ER 14:58
DX: R53.1 Weakness (principal); R29.6 Repeated falls; S50.312A Abrasion of left elbow, initial encounter; S80.812A Abrasion, left lower leg, initial encounter; E87.6 Hypokalemia; I10 Essential (primary) hypertension; Z88.2 Allergy status to sulfonamides; Z88.6 Allergy status to analgesic agent; Z88.8 Allergy status to other drugs, medicaments and biological substances; Z91.018 Allergy to other foods
CPT/HCPCS: 85025; 36415; 80053; 71045; 70551; J3411; J7030

== ENCOUNTER 2023-01-21 22:29 | Emergency (ER) | payer OTHER ==
--- OUTSIDE RECORDS SUMMARY | 2023-01-21 23:02 | XMS REPORT | Continuity of Care Document ---
:1960 Author Organization [facility] t Address [address] [place] [address] Care Team Providers Name Role Phone PAULINA DUNHAM Primary Care Physician Unavailable Susan Rodriguez Attending Clinician Unknown, Attending Attending Clinician Unavailable SUSAN LEE Attending Clinician Unavailable Doctor Unassigned, [place] Attending Clinician Unavailable Only, Ang Db Test [...] Fam Pob I Attending Clinician Unavailable Nicole Mliler Attending Clinician Diana Berg DO Attending Clinician Shannon CEE, Mariangel Caballero Attending Clinician ALEX OCONNELL Admitting Clinician Unavailable CAMERON DALTON Admitting Clinician Unavailable DARIUS LEDESMA Admitting Clinician Unavailable JOSE ALEJANDRO CASTANO Admitting Clinician Unavailable MARCELINA CHE Admitting Clinician Unavailable Marcelina Che MD Admitting Clinician Payers Payer Name Policy Type Policy Number Effective Date Expiration Date Teodora FALK II [id number] 2016 00:00:00 Problems Condition Condition Condition Status [...] to 4-10 ity of mide adverse 00:00: [place] Antibiot reaction 00 Medica l ics) s Branch Social History Social Habit Start Date Stop Date Quantity Comments Source Exposure to 2022-08-14 2022-08-24 Not sure [facility] SARS-CoV-2 00:00:00 09:35:00 [place] Medical (event) Branch Tobacco use and 2022-08-24 2022-08-24 Smokeless tobacco Un iversity of exposure 00:00:00 00:00:00 non-user [facility] Sex Ass[birth year] At [birth year] Universit y of 00:00:00 00:00:00 [facility] Smoking Status Start Date Stop Date Source Never smoked tobacco [facility] Medications Ordered Filled Start Stop Current Ordering Indication Dosage Frequency Signature Comments Components Source Medication Medication Date Date Medication? Clinician (SIG) Name Name chiragphentracy Yes [id number] 5mL Take 5 mL Univers mine-pseudo 2-18 by mouth 4 it y of ephedrine-D 00:00[place] (four[place] (BROMFED 00 times Medical DM) 2-30-10 daily as Bran ch mg/5 mL needed for syrup Congestion /Allergies . benzonatate Yes [id number] 100mg Take 1 Univers 100 mg 7-03 capsule by ity of capsule 00:00: mouth 3 [place] 00 (three) Medical times Branch daily as needed for Cough. loratadine Yes [id number] 10mg Take 1 U nivers (CLARITIN) 7-03 tablet by ity of 10 mg 00:00: mouth at [place] tablet 00 bedtime as Medical needed for Branch Allergies. benzonatate Yes [id number] 100mg Take 1 Univers 100 mg 7-03 capsule by ity of capsule 00:00: mouth 3 [place] 00 (three) Medical times Branch daily as needed for Cough. loratadine 0 Yes [id number] 10mg Take 1 U nivers (CLARITIN) 7-03 tablet by ity of 10 mg 00:00: mouth at [place] tablet 00 bedtime as Medical needed for Branch Allergies. benzonatate 0 Yes [id number] 100mg Take 1 Univers 100 mg 7-03 capsule by ity of capsule 00:00: mouth 3 [place] 00 (three) Medical times Branch daily as needed for Cough. loratadine 2-0 Yes [id number] 10mg Take 1 U nivers (CLARITIN) 7-03 tablet by ity of 10 mg 00:00: mouth at [place] tablet 00 bedtime as Medical needed for Branch Allergies. benzonatate 2021-0 Yes [id number] 100mg Take 1 Univers 100 mg 7-03 capsule by ity of capsule 00:00: mouth 3 (three) Medical times Branch daily as needed for Cough. loratadine 2-0 Yes [id number] 10mg Take 1 U nivers (CLARITIN) 7-03 tablet by ity of 10 mg 00:00: mouth at [place] tablet 00 bedtime as Medical needed for Branch Allergies. benzonatate 2021-0 Yes [id number] 100mg Take 1 Univers 100 mg 7-03 capsule by ity of capsule 00:00: mouth (three) Medical times Branch daily as needed for Cough. loratadine 2021-0 Yes [id number] 10mg Take 1 U nivers (CLARITIN) 7-03 tablet by ity of 10 mg 00:00: mouth at [place] tablet 00 bedtime as Medical needed for Branch Allergies. benzonatate 2021-0 Yes [id number] 100mg Take 1 Univers 100 mg 2-01 capsule by ity of capsule 00:00: mouth (three) Medical times Branch daily as needed for Cough. benzonatate 2021-0 Yes [id number] 100mg Take 1 Univers 100 mg 2-01 capsule by ity of capsule 00:00: mouth (three) Medical times Branch daily as needed for Cough. benzonatate 2021-0 Yes [id number] 100mg Take 1 Univers 100 mg 2-01 capsule by ity of capsule 00:00: mouth (three) Medical times Branch daily as needed for Cough. benzonatate 2021-0 Yes [id number] 100mg Take 1 Univers 100 mg 2-01 capsule by ity of capsule 00:00: mouth (three) Medical times Branch daily as needed for Cough. benzonatate 2-0 Yes [id number] 100mg Take 1 Univers 100 mg 2-01 capsule by ity of capsule 00:00: mouth (three) Medical times Branch daily as needed for Cough. benzonatate 2022-0 Yes [id number] 100mg Take 1 Univers 100 mg 2-01 capsule by ity of capsule 00:00: mouth 3 [place] 00 (three) Medical times Branch daily as needed for Cough. benzonatate 0 Yes [id number] 100mg Take 1 Univers 100 mg 2-01 capsule by ity of capsule 00:00: mouth 3 [place] 00 (three) Medical times Branch daily as needed for Cough. benzonatate 0 Yes [id number] 100mg Take 1 Univers 100 mg 2-01 capsule by ity of capsule 00:00: mouth 3 [place] 00 (three) Medical times Branch daily as needed for Cough. benzonatate 0 Yes [id number] 100mg Take 1 Univers 100 mg 2-01 [...] Therapy: Other (see Comments) iopamidol 2020-07- No [id number] 120mL 120 mL, Univers (ISOVUE 08-31 12-24 Intravenou ity o f 370-500 mL) 00:15: 23:08 s, ONCE, 1 [place] injection 00 :00 dose, On Medica l 120 mL Fri Branch 06/29/21 at 1815, Routine amoxicillin 2020-07- No [id number] 1{tbl} Take 1 Univers -clavulanat 2-24 -04 [...] Indication s: acute pain ondansetron 2020-07- No [id number] 4mg Take 1 Univers 4 mg tablet 2-24 12-30 tablet by it y of 00:00: 05:59 mouth [place] 00 :00 every 8 Medical (eight) Branch hours for 5 days. atorvastati 2020-07 Yes 10mg 10 mg, Univ ers n (LIPITOR) 1-15 Oral, QHS, it y of tablet 10 03:00: First dose [place] mg 00 on [facility] 05/20/21 Branch at 2100, Until Discontinu ed, Routine atorvastati 2020-07 Yes 10mg Take 10 mg Univers n 10 mg 1-14 by mouth ity of tablet 17:23: at [place] bedtime. Medical Branch spironolact 2020-07 Yes 25mg [...] by mouth ity of tablet 17:23: at [place] bedtime. Medical Branch spironolact 2020-07 Yes 25mg [...] Amandeep as ORAL) 01 bedtime. Medical Branch enoxaparin 2020-07 Yes 40mg 40 mg, Unive rs (LOVENOX) 1-14 Subcutaneo ity of injection 15:00: us, DAILY, [place] 40 mg 00 First dose Medical on [facility] 05/20/21 at 0900, Until Discontinu ed, Routine clopidogreL 2020-07 Yes 75mg 75 mg, Univ ers (PLAVIX) 1-14 Oral, QAM, ity o f tablet 75 15:00: First dose [place] mg 00 on [facility] 05/20/21 Branch at 0900, Until Discontinu ed, Routine ALPRAZolam 2020-07 Yes .5mg 0.5 mg, Univ ers (XANAX) 1-14 Oral, ity of tablet 0.5 15:00: DAILY, [place] mg 00 First dose Medical on [facility] 05/20/21 at 0900, Until Discontinu ed, Routine spironolact 2020-07 Yes 25mg 25 mg, Univ ers one 1-14 Oral, BID, ity of (ALDACTONE) 14:00: First dose [place] tablet 25 00 on [facility] mg 05/20/21 Branch at 0800, Until Discontinu ed, Routine Sliding 2020-07 Yes Subcutaneo Univ ers Scale 1-14 us, AC, ity of Insulin-Reg 13:30: First dose [place] ular + [facility] Branch at 0730, Until Discontinu ed, Routine levothyroxi 2020-07 Yes 100ug 100 mcg, U nivers ne 1-14 Oral, ity of (SYNTHROID) 12:00: QAM-0600, [place] tablet 100 00 First dose Med ical mcg on [facility] 05/20/21 at 0600, Until Discontinu ed, Routine pantoprazol 2020-07 Yes 40mg 40 mg, Univ ers e 1-14 Oral, ity of (PROTONIX) 06:30: DAILY, [place] EC tablet 00 First dose Medi hermelindo 40 mg (after Branch last modificati on) on [facility] 05/20/21 at 0030, Until Discontinu ed cyclobenzap 2020-07 Yes 10mg 10 mg, Univ ers rine 1-14 Oral, ity of (FLEXERIL) 06:12: TIDPRN, [place] tablet 10 13 Starting Medica l mg on [facility] 05/20/21 at 0012, Until Discontinu ed, Routine, Muscle Spasms, leg pain polyethylen 2020-07 Yes 17g 17 g, Unive rs e glycol 1-14 Oral, ity of 3350 powder 06:04: C28BGDB, [place] 17 g 16 Starting Medical on [facility] 05/20/21 at 0004, Until Discontinu ed, Routine, Constipati on glucagon 2020-07 Yes 1mg 1 mg, Univers (GLUCAGEN -14 Intramuscu ity of DIAGNOSTIC 05:29: lar, PRN, [place] KIT) 29 Starting Medical injection 1 on [facility] 05/19/21 at 2329, Until Discontinu ed, JEFFREY, Blood Glucose < or = 70 mg/dL and patient is unable to swallow or has mental changes. dextrose 50 2020-07 Yes 25mL 25 mL, Univ ers % in water 14 Slow IV ity of (D50W) 05:29: Push, PRN, [place] injection 29 Starting Medica l 25 mL on [facility] 05/19/21 at 2329, Until Discontinu ed, JEFFREY, Blood Glucose < or = 70 mg/dL and patient is unable to swallow or has mental status changes. ondansetron 2020-07 Yes 4mg 4 mg, Slow Univers (ZOFRAN 1-14 IV Push, ity of (PF)) 05:29: Q6HPRN, [place] injection 4 21 Starting Medi hermelindo mg on [facility] Branch 05/19/21 at 2329, Until Discontinu ed, Routine, Nausea and Vomiting (N/V) morpHINE 2020-07 No 2mg 2 mg, Slow Un brice injection 2 14 11-15 IV Push, ity of mg 05:29: 05:28 Q4HPRN, [place] 11 :11 Starting Medical on [facility] Branch 05/19/21 at 2329, Until 05/20/21 at 2328, Routine, Pain (scale 7-10), Chest pain traMADoL 2020-07- No 50mg 50 mg, Univer s (ULTRAM) 07-20 1116 Oral, ity of tablet 50 05:29: 05:28 Q8HPRN, [place] mg 08 :08 Starting Medical on [facility] Branch 05/19/21 at 2329, Until 05/21/21 at 2328, Routine, Pain (scale 4-6) acetaminoph 2020-07 Yes 650mg 650 mg, Un brice en 14 Oral, ity of (TYLENOL) 05:29: Q6HPRN, [place] tablet 650 05 Starting Medic al mg on [facility] Branch 05/19/21 at 2329, Until Discontinu ed, Routine, Pain (scale 1-3) omeprazole 2020-07- No 20mg Take 20 mg Univers 20 mg 07-19 by mouth ity of capsule 23:30: 00:00 daily. [place] 33 :00 [facility] guaiFENesin 2020- No 100mg 100 mg, U nivers 100 mg/5 mL 09-14 Oral, ity of solution 05:00: 16:59 ONCE, 1 [place] 100 mg 00 :00 dose, Fri Medical 09/13/20 at Branch 2300, Routine ketorolac 2020- No 30mg 30 mg, Unive rs (TORADOL) 09-1411 Slow IV ity of injection 03:30: 02:27 Push, [place] 30 mg 00 :00 ONCE, 1 Medical dose, [facility] 09/13/20 at 2130, JEFFREY
Fa culty member approving Restricted medication : DIANA BERG benzonatate Yes [id number] 100mg Take 1 Univers 100 mg 3-10 capsule by ity of capsule 00:00: mouth 3 [place] 00 (three) Medical times [place] daily as needed for Cough. benzonatate Yes [id number] 100mg Take 1 Univers 100 mg 3-10 capsule by ity of capsule 00:00: mouth 3 [place] 00 (three) Medical times Branch daily as needed for Cough. benzonatate 2020- No [id number] 100mg Take 1 Univers 100 mg 09-13- [...] 10 193, JEFFREY mL codeine-gua 2019-0 Yes [id number] 10mL Take 10 mL Univers ifenesin -21 by mouth ity of 10-100 mg/5 00:00: every 6 [place] as mL solution 00 (six) Medical hours as Branch needed for Cough. albuterol 2020-0 Yes [id number] 2.5mg Inhale 3 Univers 2.5 mg /3 1-21 mL every 4 ity of mL (0.083 00:00: (four) [place] %) 00 hours as Medical nebulizer needed for Bran ch solution Wheezing or Shortness of Breath. May also nebulize one extra every 6 hours. albuterol 2020-0 Yes [id number] 2.5mg Inhale 3 Univers 2.5 mg /3 1-21 mL every 4 ity of mL (0.083 00:00: (four) [place] %) 00 hours as Medical nebulizer needed for Bran ch solution Wheezing or Shortness of Breath. May also nebulize one extra every 6 hours. albuterol 2020-0 Yes [id number] 2.5mg Inhale 3 Univers 2.5 mg /3 1-21 mL every 4 ity of mL (0.083 00:00: (four) [place] %) 00 hours as Medical nebulizer needed for Bran ch solution Wheezing or Shortness of Breath. May also nebulize one extra every 6 hours. albuterol 2020-0 Yes [id number] 2.5mg Inhale 3 Univers 2.5 mg /3 1-21 mL every 4 ity of mL (0.083 00:00: (four) [place] %) 00 hours as Medical nebulizer needed for Bran ch solution Wheezing or Shortness of Breath. May also nebulize one extra every 6 hours. albuterol 2020-0 Yes [id number] 2.5mg Inhale 3 Univers 2.5 mg /3 1-21 mL every 4 ity of mL (0.083 00:00: (four) [place] %) 00 hours as Medical nebulizer needed for Bran ch solution Wheezing or Shortness of Breath. May also nebulize one extra every 6 hours. albuterol 2020-0 Yes [id number] 2.5mg Inhale 3 Univers 2.5 mg /3 1-21 mL every 4 ity of mL (0.083 00:00: (four) [place] %) 00 hours as Medical nebulizer needed for Bran ch solution Wheezing or Shortness of Breath. May also nebulize one extra every 6 hours. albuterol 2020-0 Yes [id number] 2.5mg Inhale 3 Univers 2.5 mg /3 1-21 mL every 4 ity of mL (0.083 00:00: (four) [place] %) 00 hours as Medical nebulizer needed for Bran ch solution Wheezing or Shortness of Breath. May also nebulize one extra every 6 hours. albuterol 2020-0 Yes [id number] 2.5mg Inhale 3 Univers 2.5 mg /3 1-21 mL every 4 ity of mL (0.083 00:00: (four) [place] %) 00 hours as Medical nebulizer needed for Bran ch solution Wheezing or Shortness of Breath. May also nebulize one extra every 6 hours. albuterol 2020-0 Yes [id number] 2.5mg Inhale 3 Univers 2.5 mg /3 1-21 mL every 4 ity of mL (0.083 00:00: (four) [place] %) 00 hours as Medical nebulizer needed for Bran ch solution Wheezing or Shortness of Breath. May also nebulize one extra every 6 hours. albuterol 2020-0 Yes [id number] 2.5mg Inhale 3 Univers 2.5 mg /3 1-21 mL every 4 ity of mL (0.083 00:00: (four) [place] %) 00 hours as Medical nebulizer needed for Bran ch solution Wheezing or Shortness of Breath. May also nebulize one extra every 6 hours. albuterol 2020-0 Yes [id number] 2.5mg Inhale 3 Univers 2.5 mg /3 1-21 mL every 4 ity of mL (0.083 00:00: (four) [place] %) 00 hours as Medical nebulizer needed for Bran ch solution Wheezing or Shortness of Breath. May also nebulize one extra every 6 hours. albuterol 2020-0 Yes [id number] 2.5mg Inhale 3 Univers 2.5 mg /3 1-21 mL every 4 ity of mL (0.083 00:00: (four) [place] %) 00 hours as Medical nebulizer needed for Bran ch solution Wheezing or Shortness of Breath. May also nebulize one extra every 6 hours. albuterol 2020-0 Yes [id number] 2.5mg Inhale 3 Univers 2.5 mg /3 1-21 mL every 4 ity of mL (0.083 00:00: (four) [place] %) 00 hours as Medical nebulizer needed for Bran ch solution Wheezing or Shortness of Breath. May also nebulize one extra every 6 hours. albuterol 2020-0 Yes [id number] 2.5mg Inhale 3 Univers 2.5 mg /3 1-21 mL every 4 ity of mL (0.083 00:00: (four) [place] %) 00 hours as Medical nebulizer needed for Bran ch solution Wheezing or Shortness of Breath. May also nebulize one extra every 6 hours. albuterol 2020-0 Yes [id number] 2.5mg Inhale 3 Univers 2.5 mg /3 1-21 mL every 4 ity of mL (0.083 00:00: (four) [place] %) 00 hours as Medical nebulizer needed for Bran ch solution Wheezing or Shortness of Breath. May also nebulize one extra every 6 hours. codeine-gua 2020-0 2020- No [id number] 10mL Take 10 mL Univers ifenesin 1-21 [...] 03/11/19 at 1430, JEFFREY dicyclomine 2018-0 Yes [id number] 10mg Take 1 Univers (BENTYL) 10 9-05 capsule by it y of mg capsule 00:00: mouth 4 [place] 00 (four) Medical times Branch daily. ondansetron 2018-0 Yes [id number] 4mg Take 1 Univers 4 mg 9-05 tablet by ity of disintegrat 00:00: mouth [place] ing tablet 00 every 4 Medica l (four) Branch hours as needed for Nausea and Vomiting (N/V). dicyclomine 2019-0 Yes [id number] 10mg Take 1 Univers (BENTYL) 10 9-05 capsule by it y of mg capsule 00:00: mouth 4 [place] 00 (four) Medical times Branch daily. ondansetron 2019-0 Yes [id number] 4mg Take 1 Univers 4 mg 9-05 tablet by ity of disintegrat 00:00: mouth [place] ing tablet 00 every 4 Medica l (four) Branch hours as needed for Nausea and Vomiting (N/V). dicyclomine 2019-0 Yes [id number] 10mg Take 1 Univers (BENTYL) 10 9-05 capsule by it y of mg capsule 00:00: mouth 4 [place] 00 (four) Medical times Branch daily. ondansetron 2019-0 Yes [id number] 4mg Take 1 Univers 4 mg 9-05 tablet by ity of disintegrat 00:00: mouth [place] ing tablet 00 every 4 Medica l (four) Branch hours as needed for Nausea and Vomiting (N/V). dicyclomine 2020- No [id number] 10mg Take 1 Univers (BENTYL) 10 03-11 03-10 capsule by i ty of mg capsule 00:00: 00:00 mouth 4 [place] as 00 :00 (four) Medical times Branch daily. ondansetron 2020- No [id number] 4mg Take 1 Univers 4 mg 9-05 [...] by mouth ity of tablet 14:40: at [place] [address] bedtime. Medical Branch omeprazole 2018 Yes 20mg Take 20 mg U nivers 20 mg 4-10 by mouth ity of capsule 14:40: daily. [place] [address] Medical Branch atorvastati 2018-0 Yes 10mg Take 10 mg Univers n 10 mg 4-10 by mouth ity of tablet 14:40: at [place] [address] bedtime. Medical Branch omeprazole 2018-0 Yes 20mg Take 20 mg U nivers 20 mg 4-10 by mouth ity of capsule 14:40: daily. [place] [address] Medical Branch atorvastati 2018-0 Yes 10mg Take 10 mg Univers n 10 mg 4-10 by mouth ity of tablet 14:40: at [place] [address] bedtime. Medical Branch omeprazole 2017-0 Yes 20mg Take 20 mg U nivers 20 mg 4-10 by mouth ity of capsule 14:40: daily. [place] [address] Medical Branch atorvastati 2017-0 Yes 10mg Take 10 mg Univers n 10 mg 4-10 by mouth ity of tablet 14:40: at [place] [address] bedtime. Medical Branch omeprazole 2017-0 Yes 20mg Take 20 mg U nivers 20 mg 4-10 by mouth ity of capsule 14:40: daily. [place] [address] Medical Branch atorvastati 2017-0 Yes 10mg Take 10 mg Univers n 10 mg 4-10 by mouth ity of tablet 14:40: at [place] [address] bedtime. Medical Branch omeprazole 2017-0 Yes 20mg Take 20 mg U nivers 20 mg 4-10 by mouth ity of capsule 14:40: daily. [place] [address] Medical Branch levothyroxi 2018-0 Yes TAKE 1 Univ ers ne 125 mcg 4-10 TABLET BY ity of tablet 00:00: MOUTH [place] 00 EVERY Medical MORNING Branch levothyroxi 2018-0 Yes TAKE 1 Univ ers ne 125 mcg 4-10 TABLET BY ity of tablet 00:00: MOUTH [place] EVERY Medical MORNING Branch levothyroxi 2018-0 Yes TAKE 1 Univ ers ne 125 mcg 4-10 TABLET BY ity of tablet 00:00: MOUTH [place] 00 EVERY Medical MORNING Branch levothyroxi 2018-0 Yes TAKE 1 Univ ers ne 125 mcg 4-10 TABLET BY ity of tablet 00:00: MOUTH [place] EVERY Medical MORNING Branch levothyroxi 2018-0 Yes TAKE 1 Univ ers ne 125 mcg 4-10 TABLET BY ity of tablet 00:00: MOUTH [place] EVERY Medical MORNING Branch levothyroxi 2018-0 Yes TAKE 1 Univ ers ne 125 mcg 4-10 TABLET BY ity of tablet 00:00: MOUTH [place] EVERY Medical MORNING Branch levothyroxi 2018-0 Yes [...] TABLET BY ity of tablet 00:00: MOUTH [place] 00 EVERY Medical MORNING Branch clopidogrel 2018-0 Yes TAKE 1 Univ ers 75 mg 2-06 TABLET BY ity of tablet 00:00: MOUTH 00 EVERY Medical MORNING Branch clopidogrel 2018-0 Yes TAKE 1 Univ ers 75 mg 2-06 TABLET BY ity of tablet 00:00: MOUTH [place] 00 EVERY Medical MORNING Branch clopidogrel 2018-0 Yes TAKE 1 Univ ers 75 mg 2-06 TABLET BY ity of tablet 00:00: MOUTH 00 EVERY Medical MORNING Branch clopidogrel 2018-0 Yes TAKE 1 Univ ers 75 mg 2-06 TABLET BY ity of tablet 00:00: MOUTH [place] 00 EVERY Medical MORNING Branch clopidogrel 2018-0 Yes TAKE 1 Univ ers 75 mg 2-06 TABLET BY ity of tablet 00:00: MOUTH [place] 00 EVERY Medical MORNING Branch clopidogrel 2018-0 Yes TAKE 1 Univ ers 75 mg 2-06 TABLET BY ity of tablet 00:00: MOUTH [place] 00 EVERY Medical MORNING Branch clopidogrel 2018-0 Yes TAKE 1 Univ ers 75 mg 2-06 TABLET BY ity of tablet 00:00: MOUTH [place] 00 EVERY Medical MORNING Branch clopidogrel 2018-0 Yes TAKE 1 Univ ers 75 mg 2-06 TABLET BY ity of tablet 00:00: MOUTH [place] 00 EVERY Medical MORNING Branch clopidogrel 2018-0 Yes TAKE 1 Univ ers 75 mg 2-06 TABLET BY ity of tablet 00:00: MOUTH [place] 00 EVERY Medical MORNING Branch clopidogrel 2018-0 Yes TAKE 1 Univ ers 75 mg 2-06 TABLET BY ity of tablet 00:00: MOUTH [place] 00 EVERY Medical MORNING Branch clopidogrel 2018-0 Yes TAKE 1 Univ ers 75 mg 2-06 TABLET BY ity of tablet 00:00: MOUTH [place] 00 EVERY Medical MORNING Branch Vital Signs Vital Name Observation Time Observation Value Comments Source Systolic blood 2022-08-24 15:43:00 135 mm[Hg] Univer sity of pressure [facility] Diastolic blood 2022-08-24 15:43:00 83 mm[Hg] Unive rsity of pressure [facility] Heart rate 2022-08-24 15:43:00 94 /min [facility] Body temperature 2022-08-24 15:43:00 36.83 Brittany Univ ers[facility] of [place] [facility] Respiratory rate 2022-08-24 15:43:00 18 /min Univ ers[facility] of [place] [facility] Body height 2022-08-24 15:43:00 170.2 cm Universi ty [facility] [place] [facility] Body weight 2022-08-24 15:43:00 58.968 kg Universi ty of [place] [facility] BMI 2022-08-24 15:43:00 20.36 kg/m2 Universi ty of [place] [facility] Oxygen saturation in 2022-08-24 15:43:00 99 /min University of Arterial blood by [facility] [place] [facility] Pulse oximetry Branch Systolic blood 2022-01-08 02:02:00 147 mm[Hg] Univer sity of pressure [place] [facility] Diastolic blood 2022-01-08 02:02:00 78 mm[Hg] Unive rsity of pressure [place] [facility] Heart rate 2022-01-08 02:02:00 78 /min Universi ty of [place] [facility] Respiratory rate 2022-01-08 02:02:00 18 /min Univ ersity of [place] [facility] Oxygen saturation in 2022-01-08 02:02:00 100 /min University of Arterial blood by [facility] [place] [facility] Pulse oximetry Branch Body temperature 2022-01-07 23:24:00 37.17 Brittany [facility] [place] [facility] Body weight 2022-01-07 23:24:00 58.968 kg Universi ty [facility] [place] [facility] BMI 2022-01-07 23:24:00 20.36 kg/m2 [facility] [place] [facility] Systolic blood 2022-01-06 20:29:00 140 mm[Hg] Univer sity of pressure [place] [facility] Diastolic blood 2022-01-06 20:29:00 106 mm[Hg] Unive rsity of pressure [place] [facility] Heart rate 2022-01-06 20:29:00 102 /min [facility]i ty [facility] [place] [facility] Body temperature 2022-01-06 20:29:00 37.5 Brittany [facility] [place] [facility] Respiratory rate 2022-01-06 20:29:00 16 /min Univ ers[facility] of [place] [facility] Body height 2022-01-06 20:29:00 170.2 cm [facility] [place] [facility] Body weight 2022-01-06 20:29:00 58.968 kg [facility] [place] [facility] BMI 2022-01-06 20:29:00 20.36 kg/m2 [facility] [place] [facility] Oxygen saturation in 2022-01-06 20:29:00 99 /min University of Arterial blood by [facility] [place] [facility] Pulse oximetry Branch Systolic blood 2021-09-02 01:52:00 132 mm[Hg] Univer sity of pressure [place] [facility] Diastolic blood 2021-09-02 01:52:00 75 mm[Hg] Unive rsity of pressure [place] [facility] Heart rate 2021-09-02 01:52:00 67 /min [facility] [place] [facility] Respiratory rate 2021-09-02 01:52:00 16 /min Univ ersity of [place] [facility] Oxygen saturation in 2021-09-02 01:52:00 99 /min University of Arterial blood by [facility] [place] [facility] Pulse oximetry Branch Body temperature 2021-09-01 23:57:00 36.17 Brittany [facility] [place] [facility] Body height 2021-09-01 23:57:00 170.2 cm [facility] [place] [facility] Body weight 2021-09-01 23:57:00 58.968 kg [facility] [place] [facility] BMI 2021-09-01 23:57:00 20.36 kg/m2 [facility] [place] [facility] Systolic blood 2021-08-07 15:57:00 165 mm[Hg] Univer sity of pressure [place] [facility] Diastolic blood 2021-08-07 15:57:00 71 mm[Hg] Unive rsity of pressure [place] [facility] Heart rate 2021-08-07 15:57:00 97 /min [facility] [place] [facility] Body temperature 2021-08-07 15:57:00 37.44 Brittany [facility] [place] [facility] Respiratory rate 2021-08-07 15:57:00 18 /min [facility] [place] [facility] Body height 2021-08-07 15:57:00 170.2 cm [facility] [place] [facility] Body weight 2021-08-07 15:57:00 56.7 kg [facility] [place] [facility] BMI 2021-08-07 15:57:00 19.58 kg/m2 [facility] [place] [facility] Oxygen saturation in 2021-08-07 15:57:00 98 /min University of Arterial blood by [facility] [place] [facility] Pulse oximetry Branch Systolic blood 2021-06-30 01:29:00 132 mm[Hg] [facility] Diastolic blood 2021-06-30 01:29:00 75 mm[Hg] [facility] Heart rate 2021-06-30 01:29:00 75 /min [facility] Respiratory rate 2021-06-30 01:29:00 18 /min [facility] Oxygen saturation in 2021-06-30 01:29:00 100 /min University of Arterial blood by [facility] Pulse oximetry Branch Body temperature 2021-06-29 22:01:00 36.67 Brittany [facility] Body weight 2021-06-29 22:01:00 53.071 kg [facility] BMI 2021-06-29 22:01:00 18.32 kg/m2 [facility] Systolic blood 2021-05-20 21:45:00 137 mm[Hg] [facility] Diastolic blood 2021-05-20 21:45:00 75 mm[Hg] [facility] Heart rate 2021-05-20 21:45:00 75 /min [facility] Body temperature 2021-05-20 21:45:00 36.5 Brittany [facility] Respiratory rate 2021-05-20 21:45:00 16 /min [facility] Oxygen saturation in 2021-05-20 21:45:00 97 /min University of Arterial blood by [facility] Pulse oximetry Branch Body weight 2021-05-20 04:14:00 53.479 kg [facility] BMI 2021-05-20 04:14:00 18.47 kg/m2 [facility] Body height 2021-05-20 03:42:00 170.2 cm [facility] Systolic blood 2020-09-14 03:30:00 147 mm[Hg] [facility] Diastolic blood 2020-09-14 03:30:00 89 mm[Hg] [facility] Heart rate 2020-09-14 03:30:00 73 /min [facility] Respiratory rate 2020-09-14 03:30:00 19 /min [facility] Oxygen saturation in 2020-09-14 03:30:00 97 /min University of Arterial blood by [facility] Pulse oximetry Branch Body temperature 2020-09-14 02:10:00 36.5 Brittany [facility] Body height 2020-09-14 02:09:00 170.2 cm [facility] Body weight 2020-09-14 02:09:00 61.236 kg [facility] BMI 2020-09-14 02:09:00 21.14 kg/m2 [facility] Systolic blood 2020-09-14 03:30:00 147 mm[Hg] [facility] Diastolic blood 2020-09-14 03:30:00 89 mm[Hg] [facility] Heart rate 2020-09-14 03:30:00 73 /min [facility] Respiratory rate 2020-09-14 03:30:00 19 /min [facility] Oxygen saturation in 2020-09-14 03:30:00 97 /min University [facility] Arterial blood by [facility] Pulse oximetry Branch Body temperature 2020-09-14 02:10:00 36.5 Brittany [facility] Body height 2020-09-14 02:09:00 170.2 [...] 98 /min University [facility] Arterial blood by [facility] Pulse oximetry Branch Systolic blood 2019-07-28 01:00:00 143 mm[Hg] [facility] Diastolic blood 2019-07-28 01:00:00 74 mm[Hg] [facility] Body temperature 2019-07-28 00:05:00 36.56 Brittany [facility] Body height 2019-07-28 00:05:00 170.2 cm [facility] Body weight 2019-07-28 00:05:00 68.04 kg [facility] BMI 2019-07-28 00:05:00 23.49 kg/m2 [facility] Heart rate 2019-07-28 01:36:00 70 /min [facility] Respiratory rate 2019-07-28 01:36:00 18 /min [facility] Oxygen saturation in 2019-07-28 01:24:00 98 /min [facility] Arterial blood by [facility] Pulse oximetry Branch Systolic blood 2019-07-28 01:00:00 143 mm[Hg] [facility] Diastolic blood 2019-07-28 01:00:00 74 mm[Hg] [facility] Body temperature 2019-07-28 00:05:00 36.56 Brittany [facility] Body height 2019-07-28 00:05:00 170.2 cm [facility] Body weight 2019-07-28 00:05:00 68.04 kg [facility] BMI 2019-07-28 00:05:00 23.49 kg/m2 [facility] Systolic blood 2019-03-11 21:00:00 141 mm[Hg] [facility] Diastolic blood 2019-03-11 21:00:00 66 mm[Hg] [facility] Heart rate 2019-03-11 21:00:00 97 /min [facility] Respiratory rate 2019-03-11 21:00:00 18 /min [facility] Oxygen saturation in 2019-03-11 21:00:00 97 /min University [facility] Arterial blood by [facility] Pulse oximetry Branch Body temperature 2019-03-11 19:13:00 36.06 Brittany [facility] Body weight 2019-03-11 19:12:00 68.04 kg [facility] BMI 2019-03-11 19:12:00 23.49 kg/m2 [facility] Systolic blood 2019-03-11 21:00:00 141 mm[Hg] [facility] Diastolic blood 2019-03-11 21:00:00 66 mm[Hg] [facility] Heart rate 2019-03-11 21:00:00 97 /min [facility] Respiratory rate 2019-03-11 21:00:00 18 /min [facility] Oxygen saturation in 2019-03-11 21:00:00 97 /min [facility] Arterial blood by [facility] Pulse oximetry [place] Body temperature 2019-03-11 19:13:00 36.06 Brittany [facility] Body weight 2019-03-11 19:12:00 68.04 kg [facility] BMI 2019-03-11 19:12:00 23.49 kg/m2 [facility] Procedures Procedure Date / Time Performing Clinician Source Performed POCT SARS-COV-2 ANTIGEN 2022-08-24 15:52:00 Susan Lee [facility] (BINAX NOW) [facility] POCT MOLECULAR FLU 2022-08-24 15:51:00 Unknown, Attending [facility] ASSIGNMENT OF BENEFITS 2022-08-24 15:38:07 Doctor Unassigned, No [facility] Name [facility] XR CHEST 1 VW 2022-01-08 00:24:42 Alex Oconnell [facility] RAPID STREP SCREEN FOR 2022-01-06 20:47:00 Sherrill [facility] GROUP A Medical Branch COVID-19 (ID NOW RAPID 2022-01-06 20:47:00 Sherrill Connor [facility] TESTING) Medical Branch CONSENT/REFUSAL FOR 2022-01-06 20:26:18 Doctor Unassigned, No [facility] DIAGNOSIS AND TREATMENT Name [facility] RAPID INFLUENZA A/B 2021-09-02 00:47:00 Cameron Dalton [facility] COVID-19 (ID NOW RAPID 2021-09-02 00:47:00 [facility] XR CHEST 2 VW 2021-09-02 00:27:31 [facility] FOR 2021-09-01 23:46:25 Doctor Unassigned, No [facility] Name Medical Branch XR CHEST 2 VW 2021-08-07 16:43:01 Darius Ledesma [facility] CONSENT/REFUSAL FOR 2021-08-07 15:37:28 Doctor Unassigned, No [facility] [place] [facility] Name Medical Branch CT ABDOMEN PELVIS W 2021-06-29 23:11:24 Jose Alejandro Castano [facility] CONTRAST Medical Branch LIPASE 2021-06-29 22:18:00 Omaira [facility] TROPONIN I 2021-06-29 22:18:00 [facility] COMP. METABOLIC PANEL 2021-06-29 22:18:00 Omaira [facility] ([id number]) Medical Branch CBC WITH DIFF 2021-06-29 22:18:00 [facility] URINALYSIS 2021-06-29 22:18:00 O[facility] CONSENT/REFUSAL FOR 2021-06-29 21:50:47 Doctor Unassigned, No [facility] [place] [facility] TREATMENT [facility] POCT GLUCOSE (AUTOMATED) 2021-05-20 17:30:00 Marcelina Che [facility] HB ECG ROUTINE & RHYTHM 2021-05-20 15:36:46 Sami Caceres [facility] STRIP [facility] TRANSTHORACIC ECHO (TTE) 2021-05-20 15:19:52 [facility] COMPLETE [facility] TROPONIN I 2021-05-20 11:04:00 Esther [facility] BASIC METABOLIC PANEL 2021-05-20 11:04:00 Esther [facility] (NA, K, CL, CO2, Medical Branch GLUCOSE, BUN, CREATININE, CA) CBC WITH DIFF 2021-05-20 11:04:00 Marcelina Che [facility] TROPONIN I 2021-05-20 01:56:00 Neida Irving [facility] XR CHEST 1 VW 2021-05-20 00:01:05 Neida Irving [facility] LIPASE 2021-05-19 23:49:00 Neida Irving [facility] MAGNESIUM 2021-05-19 23:49:00 Neida Irving [facility] TROPONIN I 2021-05-19 23:49:00 Neida Irving [facility] COMP. METABOLIC PANEL 2021-05-19 23:49:00 Neida Irving [facility] ([id number]) [facility] CBC WITH DIFF 2021-05-19 23:49:00 Neida Irving [facility] PROTHROMBIN TIME / INR 2021-05-19 23:49:00 Neida [facility] ACTIVATED PARTIAL 2021-05-19 23:49:00 Neida Irving [facility] THRMPLAS [facility] COVID-19 (ID NOW RAPID 2021-05-19 23:49:00 Neida Irving [facility] TESTING) [facility] CONSENT/REFUSAL FOR 2021-05-19 23:01:42 Doctor Unassigned, No Un [facility] DIAGNOSIS AND TREATMENT Name Medical Branch URINALYSIS 2020-09-14 02:42:00 Diana Berg [facility] XR CHEST 1 VW 2020-09-14 02:30:21 Diana Berg [facility] LIPASE 2020-09-14 02:21:00 Diana Berg [facility] TROPONIN I 2020-09-14 02:21:00 Diana Berg [facility] HEPATIC FUNCTION PANEL 2020-09-14 02:21:00 Diana Berg [facility] ([id number]) (ALB,T.PRO,BILI Medical Branch T,BU/BC,ALT,AST,ALK PHOS) BASIC METABOLIC PANEL 2020-09-14 02:21:00 Diana Berg [facility] [place] (NA, K, CL, CO2, Medical Branch GLUCOSE, BUN, CREATININE, CA) CBC WITH DIFF 2020-09-14 02:21:00 Diana Berg [facility] N-TERMINAL PRO-BNP 2020-09-14 02:21:00 Diana Berg [facility] COVID-19 (ID NOW RAPID 2020-09-14 02:21:00 Diana [facility] [place] [facility] Medical Branch NOTICE OF PRIVACY 2020-09-14 02:00:22 Doctor Unassigned, No Univ [facility] PRACTICES Name [facility] CONSENT/REFUSAL FOR 2020-09-14 01:58:28 Doctor Unassigned, No [facility] [place] DI[facility] TREATMENT Name [facility] HEPATIC FUNCTION PANEL 2019-07-28 00:55:00 Mariangel [facility]tega [facility] [place] ([id number]) (ALB,T.PRO,BILI Medical Branch T,BU/BC,ALT,AST,ALK PHOS) BASIC METABOLIC PANEL 2019-07-28 00:55:00 Mariangel Ortega [facility] [place] (NA, K, CL, CO2, Medical Branch GLUCOSE, BUN, CREATININE, CA) CBC WITH DIFFERENTIAL 2019-07-28 00:55:00 Mariangel Ortega [facility] RAPID STREP SCREEN FOR 2019-07-28 00:55:00 [facility] ADC,CLC OR LCC ONLY - 2019-07-28 00:55:00 Mariangel Ortega [facility] [place] INFLUENZA A & B DIRECT Medical [facility] [place] ANTIGEN CBC WITH DIFFERENTIAL 2019-07-28 00:55:00 Mariangel Ortega [facility] XR CHEST 2 VW 2019-07-28 00:28:40 Mariangel Ortega [facility] CONSENT/REFUSAL FOR 2019-07-27 23:47:18 Doctor Unassigned, No [facility] [place] DI[facility]NOSIS AND TREATMENT Name Medical Branch LIPASE 2019-03-11 19:53:00 Sherrill Connor [place] [facility] HEPATIC FUNCTION PANEL 2019-03-11 19:53:00 Sherrill Connor [facility] ([id number]) (ALB,T.PRO,BILI [facility] T,BU/BC,ALT,AST,ALK PHOS) BASIC METABOLIC PANEL 2019-03-11 19:53:00 Sherrill Connor [facility] (NA, K, CL, CO2, Medical Branch GLUCOSE, BUN, CREATININE, CA) CBC WITH DIFFERENTIAL 2019-03-11 19:53:00 Sherrill Connor [facility] PROTHROMBIN TIME / INR 2019-03-11 19:53:00 Sherrill Connor [facility] ACTIVATED PARTIAL 2019-03-11 19:53:00 Sherrill Connor [facility] THRMPLAS [facility] NOTICE OF PRIVACY 2019-03-11 18:56:54 Doctor Unassigned, [facility] PRACTICES Name [facility] Encounters Start End Encounter Admission Attending Care Care Encounter Source Date/Time Date/Time Type Type Clinicians Facility Department ID 2021-05-06 Emergency [facility] [id number] Univers 05:05:13 ity of [facility] 2022-08-24 2022-08-24 Urgent Susan Lee [facility] [id number] Univers 09:40:00 10:00:00 Care Unknown, Attending [id number] Amandeep as JOCELYN?BLEA [phone] Nv dical [address] MEDICAL OFFICE BUILDING 2022-08-24 2022-08-24 Outpatient R TAMIKO [facility] [id number] Univers 09:40:00 09:40:00 SUSAN ity of [facility] 2022-08-24 2022-08-24 Orders Doctor SUSHIL [id number] Univers 00:00:00 00:00:00 Only Unassigned, KIRK [id number] [facility] [id number] Amandeep as [id number] [address] 2022-01-11 2022-01-11 Laboratory Only, Ang Db Test [facility] 1.2.8 40.114 [id number] Univers 13:15:00 13:30:00 Only Monik Charles [facility] [id number] ity of [place] [id number] Amandeep as JOCELYN?BLEA [phone] Nv lennie [address] MEDICAL OFFICE BUILDING 2022-01-11 2022-01-11 [facility] [id number] Univers 13:15:00 13:24:38 MONIK radha [facility] 2022-01-07 2022-01-07 Emergency X [facility] ERT [id number] Univers 18:26:00 21:08:[address] [facility] [facility] 2022-01-07 2022-01-07 Emergency [facility] [id number] Univers 18:26:00 21:08:00 Alex DENNISON [id number] ity of [place] 4.2.7.2.686 [facility] [id number] [address] 2022-01-06 2022-01-06 Emergency [facility] [id number] Univers 15:31:00 16:32:00 SHERRILL [facility] 2022-01-06 2022-01-06 [facility] [id number] Univers 15:31:00 16:32:00 Sherrill DENNISON [id number] i ty of [place] 4.2.7.2.686 [facility] [id number] [address] 2021-09-01 2021-09-01 Emergency [facility] [id number] Univers 17:59:00 19:56:00 CAMERON delaney [facility] 2021-09-01 2021-09-01 Emergency [facility] 1.2.840.114 [id number] Univers 17:59:00 19:56:00 Cameron DENNISON [id number] i ty of [place] 4.2.7.2.686 [facility] [id number] [address] 2021-09-01 2021-09-01 Orders Doctor LING 1.2.840.114 [id number] Univers 00:00:00 00:00:00 Only Unassigned, KIRK [id number] ity of [place] [facility] 4.2.7.2.686 Amandeep as [phone] [facility] 009 Branch 2021-08-08 2021-08-08 Letter SUSHIL Daniels 1.2.840.114 [id number] Univers 00:00:00 00:00:00 (Out) Nirmala Balalrd KIRK [id number] it y of HOSPITAL 4.2.7.2.686 Amandeep as [id number] [facility] 019 Branch 2021-08-07 2021-08-07 Emergency X [facility] ERT [id number] Univers 09:58:00 11:43:00 DARIUS ity of [facility] 2021-08-07 2021-08-07 Emergency [facility] [id number] Univers 09:58:00 11:43:00 Darius DENNISON [id number] i ty of [place] 4.2.7.2.6 [facility] [id number] [facility] 084 [place] 2021-08-07 2021-08-07 Orders Doctor LING 1.2.840.114 [id number] Univers 00:00:00 00:00:00 Only Unassigned, KIRK [id number] ity of [place] [facility] [id number] Amandeep as [phone] [facility] 009 Branch 2021-06-29 2021-06-29 Emergency X [facility] ERT [id number] Univers 16:04:00 19:33:00 JOSE ALEJANDRO ity [facility] 2021-06-29 2021-06-29 Emergency [facility] 1.2.840.114 [id number] Univers 16:04:00 19:33:00 Jose Alejandro DENNISON [id number] i ty of [place] 4.2.7.2.686 [facility] [id number] [address] 2021-05-19 2021-05-20 [facility]patient [facility] [id number] Univers 17:04:00 17:03:00 MARCELINA itradha [facility] 2021-05-19 2021-05-20 Emergency Neida Irving [facility] 1.2.840. 114 [id number] [facility] 17:04:00 17:03:00 Marcelina Che 350.1.13.10 ity of [place] [id number] [address] 2020-09-16 2020-09-16 Outpatient R LUIS MANUEL [facility] [id number] Univers 10:20:00 10:20:00 NICOLE ity [facility] 2020-09-16 2020-09-16 Laboratory Lab, [facility] 1.2.840.114 [id number] 09:44:15 10:04:15 Only Fam Pob I Health [id number] [place] 4.2.7.2.686 Professio [phone] [place] [address] [address] 2020-09-16 2020-09-16 Laboratory Lab, [facility] Fam Pob I [facility] 1.2. 840.114 [id number] [facility] 09:44:15 10:04:15 Only Nicole Issa [id number] ity of [place] 4.2.7.2.686 Amandeep as Professio [phone] Nv dical [address] Office [facility] One 2020-09-13 2020-09-13 Emergency [facility] 1.2.840.114 [id number] 20:05:00 22:24:00 Diana Dennison 350.1.13.10 [place] 4.2.7.2.686 [place] [id number] [facility] 2020-09-13 2020-09-13 Emergency [facility] 1.2.840.114 [id number] [facility] 20:05:00 22:24:00 Diana Dennison 350.1.13.10 [place].2.[place] [id number] [address] 2019-07-27 2019-07-27 Emergency Shannon [facility] 1.2.840.114 [id number] 18:07:12 20:13:00 Mariangel Dennison 350.1.13.10 [place] 4.2.7.2.686 [place] [id number] [id number] 2019-07-27 2019-07-27 [facility] 1.2.840.114 [id number] [facility] 18:07:12 20:13:00 Mariangel Dennison 350.1.13.10 ity of [place] 4.2.7.2.686 [facility] [id number] [address] 2019-07-27 2019-07-27 Orders Doctor SUSHIL 1.2.840.114 [id number] 00:00:00 00:00:00 Only Unassigned, KIRK 350.1.13.10 [place] [facility] 4.2.7.2.686 [id number] 009 2019-07-27 2019-07-27 Orders Doctor SUSHIL 1.2.840.114 [id number] Univers 00:00:00 00:00:00 Only Unassigned, KIRK 350.1.13.10 ity of [place] [facility] 4.2.7.2.686 Amandeep [id number] [address] 2019-03-11 2019-03-11 Emergency [facility] [id number] 14:05:54 16:45:00 Sherrill Dennison 350.1.13.10 [place] 4.2.7.2.686 [place] [phone] [facility] 2019-03-11 2019-03-11 [facility] [id number] [facility] 14:05:54 16:45:00 Sherrill Dennison 350.1.13.10 i ty of [place] 4.2.7.2.686 [facility] [id number] [address] Results Test Description Test Time Test Comments Results Result Comments Source POCT MOLECULAR FLU 2022-08-24 16:02:31 Test Item Value Reference Range Interpretation Comme nts POCT Molecular FluA (test code = 04432-2) Negative Negative POCT Molecular FluB (test code = 38672-5) Negative Negative Lab Interpretation (test code = 77184-6) [facility] SARS-COV-2 ANTIGEN (BINAX NOW)2022-08-24 15:52:00 Test Item Value Reference Range Interpretation Comments POCT SARS-COV-2 ANTIGEN (test Not Detected Not Detected code = 15835-3) On board controls acceptable Yes with C Line (test code = 3574) Lab Interpretation (test code = Normal 94564-6) [facility]. METABOLIC PANEL (47884)2021-06-29 23:10:56 Test Item Value Reference Range Interpretation Comments NA (test code = 137 mmol/L 135-145 4179918977) K (test code = 3.9 mmol/L 3.5-5.0 1221130371) CL (test code = 102 mmol/L 98-108 8800952440) CO2 TOTAL (test code = 27 mmol/L 23-31 3020916326) AGAP (test code = 2-16 9911953218) BUN (test code = 10 mg/dL 7-23 3327298423) GLUCOSE (test code = 137 mg/dL 70-110 H 6746269486) CREATININE (test code = 0.69 mg/dL 0.50-1.04 9576257950) TOTAL BILI (test code = 0.5 mg/dL 0.1-1.7 9283303300) CALCIUM (test code = 9.2 mg/dL 8.6-10.6 4781289436) T PROTEIN (test code = 7.7 g/dL 6.3-8.2 3007164418) ALBUMIN (test code = 4.9 g/dL 3.5-5.0 9765717038) ALK PHOS (test code = 73 U/L 34-122 1511435517) ALTv (test code = 15 U/L 5-35 1742-6) AST(SGOT) (test code = 21 U/L 13-40 1112524298) eGFR (test code = mL/min/1.73m2 7218217619) MADISYN (test code = MADISYN) Association of [...] tests). Lab Interpretation Abnormal (test code = 57496-1) [facility] [id number] 22:59:27 Test Item Value Reference Interpretation Comments Range TROPONIN I (test 0.001 ng/mL See_Comment [Automated code = 3277982754) message] The system which generated this result [...] biotin. Lab Interpretation Normal (test code = 17906-1) [facility] 22:49:29 Test Item Value Reference Range Interpretation Comments LIPASE (test code = 3972187976) 57 U/L 0-220 Lab Interpretation (test code = Normal 24708-7) [facility] WITH [id number] 22:29:28 Test Item Value Reference Range Interpretation [...] RDW-SD (test code = 43.4 fL 39.0-49.9 49437-0) RDW-CV (test code = 12.7 % 12.0-15.5 788-0) PLT (test code = See_Comment [Automated 777-3) message] The sy stem which generated this result transmitted reference range : 166 - 358 10*3/ ?L. The reference r aiden was not used to interpret this result as normal/abnormal . MPV (test code = 10.7 fL 9.5-12.9 34354-6) NRBC/100 WBC (test See_Comment [Automat ed code = 8490312569) message] The system which generated this result transmitted reference range : 0.0 - 10.0 /100 WBCs. The refer ence range was not u sed to interpret th is result as normal/abnormal . NRBC x10^3 (test code <0.01 See_Comment [Auto mated = 1808448737) message] The s ystem which generated this result transmitted reference range : 10*3/?L. The reference range was not used to interpret this result as normal/abnormal . GRAN MAT (NEUT) % 68.6 % (test code = 770-8) IMM GRAN % (test code 0.40 % = 9266704631) LYMPH % (test code = 22.9 % 736-9) MONO % (test code = 6.3 % 5905-5) EOS % (test code = 1.6 % 713-8) BASO % (test code = 0.2 % 706-2) GRAN MAT x10^3(ANC) 6.89 10*3/uL 1.88-7.09 (test code = 4246328237) IMM GRAN x10^3 (test 0.04 10*3/uL 0.00-0.06 code = 9973006566) LYMPH x10^3 (test code 2.30 10*3/uL 1.32-3.29 = 731-0) MONO x10^3 (test code 0.63 10*3/uL 0.33-0.92 = 742-7) EOS x10^3 (test code = 0.16 10*3/uL 0.03-0.39 711-2) BASO x10^3 (test code <0.03 0.01-0.07 = 704-7) Lab Interpretation Abnormal (test code = 49867-6) [facility]2021-05-20 17:33:00 Test Item Value Reference Range Interpretation Comments POCT GLU (test code = 4146429720) 80 mg/dL 70-110 Lab Interpretation (test code = Normal 60987-6) [facility] [id number] 12:36:17 Test Item Value Reference Interpretation Comments Range TROPONIN I (test 0.002 ng/mL See_Comment [Automated code = 5788665955) message] The system which generated this result [...] biotin. Lab Interpretation Normal (test code = 46356-6) [facility] Metabolic Panel (NA, K, CL, CO2, GLUCOSE, BUN, CREATININE, [place])2021-05-20 12:31:20 Test Item Value Reference Range Interpretation Comments NA (test code = 138 mmol/L 135-145 0252221908) K (test code = 4.2 mmol/L 3.5-5.0 6318334916) CL (test code = 106 mmol/L 98-108 1679570053) CO2 TOTAL (test code = 25 mmol/L 23-31 0012774896) AGAP (test code = 2-16 1624182188) BUN (test code = 12 mg/dL 7-23 0820689156) GLUCOSE (test code = 146 mg/dL 70-110 H 5294939383) CREATININE (test code = 0.62 mg/dL 0.50-1.04 4428905079) CALCIUM (test code = 10.0 mg/dL 8.6-10.6 1580555150) eGFR (test code = mL/min/1.73m2 1907785839) MADISYN (test code = MADISYN) Association of [...] tests). Lab Interpretation Abnormal (test code = 83516-3) [facility] with [id number] 11:49:32 Test Item Value Reference Range Interpretation Comments WBC (test code = See_Comment [Automated 2250-2) message] The sy stem which generated this result transmitted reference range : 4.30 - 11.10 10*3/?L. The reference range was not used to interpret this result as normal/abnormal . RBC (test code = See_Comment L [Automated 869-8) message] The sy stem which generated this [...] RDW-SD (test code = 40.3 fL 39.0-49.9 51770-7) RDW-CV (test code = 11.9 % 12.0-15.5 L 788-0) PLT (test code = See_Comment [Automated 597-3) message] The sy stem which generated this result transmitted reference range : 166 - 358 10*3/ ?L. The reference r aiden was not used to interpret this result as normal/abnormal . MPV (test code = 11.3 fL 9.5-12.9 57978-3) NRBC/100 WBC (test See_Comment [Automat ed code = 3138111122) message] The system which generated this result transmitted reference range : 0.0 - 10.0 /100 WBCs. The refer ence range was not u sed to interpret th is result as normal/abnormal . NRBC x10^3 (test code <0.01 See_Comment [Auto mated = 7684054273) message] The s ystem which generated this result transmitted reference range : 10*3/?L. The reference range was not used to interpret this result as normal/abnormal . GRAN MAT (NEUT) % 59.9 % (test code = 770-8) IMM GRAN % (test code 0.50 % = 9680134735) LYMPH % (test code = 30.0 % 736-9) MONO % (test code = 6.4 % 5905-5) EOS % (test code = 2.9 % 713-8) BASO % (test code = 0.3 % 706-2) GRAN MAT x10^3(ANC) 3.72 10*3/uL 1.88-7.09 (test code = 4003375593) IMM GRAN x10^3 (test 0.03 10*3/uL 0.00-0.06 code = 6101128805) LYMPH x10^3 (test code 1.86 10*3/uL 1.32-3.29 = 731-0) MONO x10^3 (test code 0.40 10*3/uL 0.33-0.92 = 742-7) EOS x10^3 (test code = 0.18 10*3/uL 0.03-0.39 711-2) BASO x10^3 (test code <0.03 0.01-0.07 = 704-7) Lab Interpretation Abnormal (test code = 34804-2) [id number] 02:24:28 Test Item Value Reference Interpretation Comments Range TROPONIN I (test 0.003 ng/mL See_Comment [Automated code = 7202940706) message] The system which generated this result [...] biotin. Lab Interpretation Normal (test code = 17153-7) [facility]20[facility] 00:25:00 Test Item Value Reference Range Interpretation Comments MAGNESIUM (test code = 3086762611) 1.9 mg/dL 1.7-2.4 Lab Interpretation (test code = Normal 27629-4) [facility] CenterTROP[facility] [id number] 00:20:03 Test Item Value Reference Interpretation Comments Range TROPONIN I (test 0.002 ng/mL See_Comment [Automated code = 2393901375) message] The system which generated this result [...] biotin. Lab Interpretation Normal (test code = 85776-8) [facility] CenterCOM[facility]OL[facility] PAN[facility] (15297)2021-05-20 00:09:00 Test Item Value Reference Range Interpretation Comments NA (test code = 139 mmol/L 135-145 5769026796) K (test code = 3.9 mmol/L 3.5-5.0 1986786096) CL (test code = 101 mmol/L 98-108 8073326947) CO2 TOTAL (test code = 28 mmol/L 23-31 7970312151) AGAP (test code = 2-16 6508120228) BUN (test code = 13 mg/dL 7-23 4991786933) GLUCOSE (test code = 143 mg/dL 70-110 H 6629488334) CREATININE (test code = 0.68 mg/dL 0.50-1.04 5964763384) TOTAL BILI (test code = 0.4 mg/dL 0.1-1.1 8765451352) CALCIUM (test code = 10.4 mg/dL 8.6-10.6 3324720864) T PROTEIN (test code = 8.0 g/dL 6.3-8.2 2085078766) ALBUMIN (test code = 5.0 g/dL 3.5-5.0 7953158570) ALK PHOS (test code = 93 U/L 34-122 6665654768) ALTv (test code = 21 U/L 5-35 1742-6) AST(SGOT) (test code = 31 U/L 13-40 2379131729) eGFR (test code = mL/min/1.73m2 7748169060) MADISYN (test code = MADISYN) Association of [...] tests). Lab Interpretation Abnormal (test code = 19094-0) [facility] 00:08:20 Test Item Value Reference Range Interpretation Comments LIPASE (test code = 0757252091) 66 U/L 0-220 Lab Interpretation (test code = Normal 28670-1) [facility] CenteraPTT2021-11-14 00:06:19 Test Item Value Reference Range Interpretation Comments APTT Patient (test See_Comment [Automat ed code = 3173-2) message] The system which generated this result transmitted reference range : 23 - 38 Seconds . The reference range was not used to interpr et this result as normal/abnormal . MADISYN (test code = MADISYN) The [facility] patient population mean normal value for aPTT is 30 seconds. Lab Interpretation Normal (test code = 78136-0) [facility] CenterPROTHROMBIN TIME / [id number] 00:04:19 Test Item Value Reference Range Interpretation [...] tions. Lab Interpretation (test Normal code = 77829-6) [facility] CenterCBC WITH [id number] 23:55:39 Test Item Value Reference Range Interpretation [...] RDW-SD (test code = 40.4 fL 39.0-49.9 12881-3) RDW-CV (test code = 11.9 % 12.0-15.5 L 788-0) PLT (test code = See_Comment [Automated 777-3) message] The sy stem which generated this result transmitted reference range : 166 - 358 10*3/ ?L. The reference r aiden was not used to interpret this result as normal/abnormal . MPV (test code = 11.0 fL 9.5-12.9 62957-7) NRBC/100 WBC (test See_Comment [Automat ed code = 9887746209) message] The system which generated this result transmitted reference range : 0.0 - 10.0 /100 WBCs. The refer ence range was not u sed to interpret th is result as normal/abnormal . NRBC x10^3 (test code <0.01 See_Comment [Auto mated = 7182893589) message] The s ystem which generated this result transmitted reference range : 10*3/?L. The reference range was not used to interpret this result as normal/abnormal . GRAN MAT (NEUT) % 53.4 % (test code = 770-8) IMM GRAN % (test code 0.60 % = 9861562129) LYMPH % (test code = 36.2 % 736-9) MONO % (test code = 6.4 % 5905-5) EOS % (test code = 3.3 % 713-8) BASO % (test code = 0.1 % 706-2) GRAN MAT x10^3(ANC) 3.58 10*3/uL 1.88-7.09 (test code = 1628058004) IMM GRAN x10^3 (test 0.04 10*3/uL 0.00-0.06 code = 2742170962) LYMPH x10^3 (test code 2.43 10*3/uL 1.32-3.29 = 731-0) MONO x10^3 (test code 0.43 10*3/uL 0.33-0.92 = 742-7) EOS x10^3 (test code = 0.22 10*3/uL 0.03-0.39 711-2) BASO x10^3 (test code <0.03 0.01-0.07 = 704-7) Lab Interpretation Abnormal (test code = 94613-6) [facility] CenterUrinalysis2021-03-11 03:27:11 Test Item Value Reference Range Interpretation Comments APPEARANCE (test code = Clear Clear 8827035720) COLOR (test code = Straw Yellow A 3618483978) PH (test code = 4.8-8.0 1950750146) SP GRAVITY (test code = 1.003-1.030 5681541265) GLU U QUAL (test code = 500 mg/dL Normal A 3568689223) BLOOD (test code = Negative Negative 2184241486) KETONES (test code = Negative Negative 9314564643) PROTEIN (test code = Negative Negative 2887-8) UROBILIN (test code = Normal Normal 4476616030) BILIRUBIN (test code = Negative Negative 7556554301) NITRITE (test code = Negative Negative 7327545640) LEUK KEVEN (test code = 25/uL Negative A 3507506587) RBC/HPF (test code = See_Comment [Autom ated message] 5424907732) The system [employer] generated this result transmit zoila reference range : 0 - 3 HPF. The refe rence range was not u sed to interpret th is result as normal/abnormal . WBC/HPF (test code = See_Comment [Autom ated message] 2479962102) The system [employer] generated this result transmit zoila reference range : 0 - 5 HPF. The refe rence range was not u sed to interpret th is result as normal/abnormal . BACTERIA (test code = Negative Negative 5034683249) MUCOUS (test code = Slight Negative LPF A 9693443996) SQ EPITH (test code = HPF 1715371903) Lab Interpretation (test Abnormal code = 37822-9) [facility] CenterTroponin [id number] 03:00:28 Test Item Value Reference Range Interpretation Comments TROPONIN I (test <0.012 See_Comment [Automated code = 4323615716) message] The system which generated this result [...] ? Lab Interpretation Normal (test code = 19458-4) [facility] CenterN-TERMINAL [id number] 02:57:10 Test Item Value Reference Range Interpretation Comments NT-proBNP (test code 25 pg/mL See_Comment [Autom ated = 5487560885) message] The system which generated this result transmitted reference range : <=125. The reference range was not used to interpret this result as normal/abnormal . MADISYN (test code = MADISYN) Biotin has been reported to cause a negative bias, interpret results relative to patient's use of biotin. Lab Interpretation Normal (test code = 67612-7) [facility] Metabolic Panel (NA, K, CL, CO2, GLUCOSE, BUN, CREATININE, CA)2020-09-14 02:48:49 Test Item Value Reference Range Interpretation Comments NA (test code = 135 mmol/L 135-145 0648939133) K (test code = 3.6 mmol/L 3.5-5.0 5279680369) CL (test code = 101 mmol/L 98-108 3605342407) CO2 TOTAL (test code = 23 mmol/L 23-31 6659835579) AGAP (test code = 2-16 6789791938) BUN (test code = 10 mg/dL 7-23 7503681007) GLUCOSE (test code = 296 mg/dL 70-110 H 4884041901) CREATININE (test code = 0.62 mg/dL 0.50-1.04 6304086976) CALCIUM (test code = 9.7 mg/dL 8.6-10.6 6889010531) eGFR Calculation mL/min/1.73m2 (Non-) (test code = 9648260477) eGFR Calculation mL/min/1.73m2 () (test code = 7076049080) MADISYN (test code = MADISYN) Association of [...] tests). Lab Interpretation Abnormal (test code = 43288-7) [facility] CenterHepatic Function Panel (ALB, T.PRO, BILI T, BU/BC, ALT, AST, ALK PHOS)2020-09-14 02:48:48 Test Item Value Reference Range Interpretation Comments TOTAL BILI (test code = 4735162577) 0.4 mg/dL 0.1-1.1 BILI UNCON (test code = 6242749877) 0.4 mg/dL 0.1-1.1 BILI CONJ (test code = 2428885442) 0.0 mg/dL 0.0-0.3 T PROTEIN (test code = 3191762437) 7.7 g/dL 6.3-8.2 ALBUMIN (test code = 4232719829) 5.0 g/dL 3.5-5.0 ALK PHOS (test code = 5453227789) 78 U/L 34-122 ALTv (test code = 1742-6) 19 U/L 5-35 AST(SGOT) (test code = 5797832658) 25 U/L 13-40 Lab Interpretation (test code = Normal 11026-5) [facility] CenterLipase [id number] 02:48:48 Test Item Value Reference Range Interpretation Comments LIPASE (test code = 1459014498) 38 U/L 0-220 Lab Interpretation (test code = Normal 89121-8) [facility] CenterCOVID-19 (ID NOW RAPID TESTING)2020-09-14 02:36:29 Test Item Value Reference Range Interpretation Comments SARS-CoV-2 Rapid ID NOW Positive Not Detected A (test code = 67252-2) MADISYN (test code = MADISYN) ID NOW COVID-19 Assay is an isothermal nucleic acid amplification test intended for the qualitative detection of nucleic acid from SARS-CoV-2 viral RNA in nasopharyngeal (LOAD DISPATCHER LOCAL) specimens. It is used under Emergency Use [...] indicated. Lab Interpretation Abnormal (test code = 88046-3) [facility] with Bnrdadvykcmj8376-82-41 02:30:06 Test Item Value Reference Range Interpretation Comments WBC (test code = See_Comment [Automated message] 7490-2) The system [employer] generated this result transmitted ref erence range: 4.30 - 1 1.10 10*3/?L. The re ference range was not u sed to interpret this result as normal/abnor mal. RBC (test code = See_Comment [Automated message] 789-8) The system [employer] generated this result transmitted ref erence range: [...] RDW-SD (test code 41.8 fL 39.0-49.9 = 58463-0) RDW-CV (test code 12.8 % 12.0-15.5 = 788-0) PLT (test code = See_Comment [Automated message] 777-3) The system whic h generated this result transmitted ref erence range: 166 - 35 8 10*3/?L. The re ference range was not u sed to interpret this result as normal/abnor mal. MPV (test code = 11.2 fL 9.5-12.9 14950-2) NRBC/100 WBC (test See_Comment [Automat ed message] code = 7818084295) The syste m which generated this result transmitted ref erence range: 0.0 - 10 .0 /100 WBCs. The refer ence range was not u sed to interpret this result as normal/abnor mal. NRBC x10^3 (test <0.01 See_Comment [Automated message] code = 3687871697) The syste m which generated this result transmitted ref erence range: 10*3/?L. The reference range was not used to interpr et this result as normal/abnormal . GRAN MAT (NEUT) % 54.0 % (test code = 770-8) IMM GRAN % (test 0.70 % code = 1557392622) LYMPH % (test code 36.2 % = 736-9) MONO % (test code 6.0 % = 5905-5) EOS % (test code = 2.8 % 713-8) BASO % (test code 0.3 % = 706-2) GRAN MAT 3.13 10*3/uL 1.88-7.09 x10^3(ANC) (test code = 6001192842) IMM GRAN x10^3 0.04 10*3/uL 0.00-0.06 (test code = 4900452925) LYMPH x10^3 (test 2.10 10*3/uL 1.32-3.29 code = 731-0) MONO x10^3 (test 0.35 10*3/uL 0.33-0.92 code = 742-7) EOS x10^3 (test 0.16 10*3/uL 0.03-0.39 code = 711-2) BASO x10^3 (test <0.03 0.01-0.07 code = 704-7) [facility] WITH [id number] 01:35:00 Test Item Value Reference Range Interpretation [...] RDW-SD (test code = 40.8 fL 39-49.9 05959-2) RDW-CV (test code = 12.5 % 12-15.5 788-0) PLT (test code = See_Comment [Automated 777-3) message] The sy stem which generated this result transmitted reference range : 166 - 358 10*3/ ?L. The reference r aiden was not used to interpret this result as normal/abnormal . MPV (test code = 11.0 fL 9.5-12.9 00958-1) IPF % (test code = 5.7 % 1.3-7.7 Platelet count 1292309564) measured by fluorescence method. NRBC/100 WBC (test See_Comment [Automat ed code = 0936782836) message] The system which generated this result transmitted reference range : 0.0 - 10.0 /100 WBCs. The refer ence range was not u sed to interpret th is result as normal/abnormal . NRBC x10^3 (test code <0.01 See_Comment [Auto mated = 2669860575) message] The s ystem which generated this result transmitted reference range : 10*3/?L. The reference range was not used to interpret this result as normal/abnormal . GRAN MAT (NEUT) % 60.2 % (test code = 770-8) IMM GRAN % (test code 1.60 % = 2054156293) LYMPH % (test code = 29.4 % 736-9) MONO % (test code = 6.2 % 5905-5) EOS % (test code = 2.3 % 713-8) BASO % (test code = 0.3 % 706-2) GRAN MAT x10^3(ANC) 5.31 10*3/uL 1.88-7.09 (test code = 4066493943) IMM GRAN x10^3 (test 0.14 10*3/uL 0-0.06 H code = 8486557314) LYMPH x10^3 (test code 2.59 10*3/uL 1.32-3.29 = 731-0) MONO x10^3 (test code 0.55 10*3/uL 0.33-0.92 = 742-7) EOS x10^3 (test code = 0.20 10*3/uL 0.03-0.39 711-2) BASO x10^3 (test code 0.03 10*3/uL 0.01-0.07 = 704-7) Lab Interpretation Abnormal (test code = 12192-9) [facility] CenterAD,CLC OR L[facility] ONLY - INFLUENZA A & B DIRECT [id number] 01:26:00 Test Item Value Reference Range Interpretation Comments Influenza A (test code = 93501-1) Negative Negative Influenza B (test code = 82998-4) Negative Negative Lab Interpretation (test code = Normal 99320-1) [facility] Metabolic Panel (NA, K, CL, CO2, GLUCOSE, BUN, CREATININE, CA)2019-07-28 01:21:00 Test Item Value Reference Range Interpretation Comments NA (test code = 137 mmol/L 135-145 5746044436) K (test code = 3.8 mmol/L 3.5-5 0825292743) CL (test code = 100 mmol/L 98-108 4163547957) CO2 TOTAL (test code = 24 mmol/L 23-31 6211550938) AGAP (test code = 2-16 2756567227) BUN (test code = 13 mg/dL 7-23 5918290524) GLUCOSE (test code = 245 mg/dL 70-110 H 6744624215) CREATININE (test code = 0.49 mg/dL 0.5-1.04 L 8351756820) CALCIUM (test code = 9.8 mg/dL 8.6-10.6 4384738768) eGFR Calculation mL/min/1.73m2 (Non-) (test code = 7522608866) eGFR Calculation mL/min/1.73m2 () (test code = 1002635805) MADISYN (test code = MADISYN) Association of [...] tests). Lab Interpretation Abnormal (test code = 51448-7) [facility] CenterHep[facility] Function [facility] (ALB, T.PRO, BILI T, BU/BC, ALT, AST, ALK PHOS)2019-07-28 01:21:00 Test Item Value Reference Range Interpretation Comments TOTAL BILI (test code = 5367842314) 0.3 mg/dL 0.1-1.1 BILI UNCON (test code = 1162704043) 0.1 mg/dL 0.1-1.1 BILI CONJ (test code = 4087254290) 0.0 mg/dL 0-0.3 T PROTEIN (test code = 5891866705) 8.2 g/dL 6.3-8.2 ALBUMIN (test code = 8690354862) 5.0 g/dL 3.5-5 ALK PHOS (test code = 7273133431) 121 U/L 34-122 ALTv (test code = 1742-6) 33 U/L 5-35 AST(SGOT) (test code = 1660268229) 30 U/L 13-40 Lab Interpretation (test code = Normal 82610-3) [facility] CenterRAPID STREP SCREEN FOR GROUP [id number] 01:19:00 Test Item Value Reference Range Interpretation Comments Streptococcus pyogenes (group A) Negative Negative antigen (test code = 10529-8) Lab Interpretation (test code = Normal 93600-1) [facility] CenterXR CHEST 2 [id number] 00:53:20Impression: No acute cardiopulmonary changes. Small sized [...] reviewed this study and agree withthe above report.[facility] (NA, K, CL, CO2, GLUCOSE, BUN, CREATININE, CA)2019-03-11 20:52:00 Test Item Value Reference Range Interpretation Comments NA (test code = 141 mmol/L 135-145 4992684587) K (test code = 3.6 mmol/L 3.5-5 5535274098) CL (test code = 104 mmol/L 98-108 7050197739) CO2 TOTAL (test code = 24 mmol/L 23-31 3870127901) AGAP (test code = 2-16 6483465319) BUN (test code = 19 mg/dL 7-23 0006654742) GLUCOSE (test code = 161 mg/dL 70-110 H 2521560939) CREATININE (test code = 0.51 mg/dL 0.5-1.04 5469767875) CALCIUM (test code = 9.4 mg/dL 8.6-10.6 1791029157) eGFR Calculation mL/min/1.73m2 (Non-) (test code = 0991228485) eGFR Calculation mL/min/1.73m2 () (test code = 1407819164) MADISYN (test code = MADISYN) Association of [...] tests). Lab Interpretation Abnormal (test code = 76605-3) [facility] CenterHep[facility] Function [facility] (ALB, T.PRO, BILI T, BU/BC, ALT, AST, ALK PHOS)2019-03-11 20:52:00 Test Item Value Reference Range Interpretation Comments TOTAL BILI (test code = 0027452841) 0.6 mg/dL 0.1-1.1 BILI UNCON (test code = 7251955587) 0.5 mg/dL 0.1-1.1 BILI CONJ (test code = 5370873638) 0.0 mg/dL 0-0.3 T PROTEIN (test code = 4586219308) 7.7 g/dL 6.3-8.2 ALBUMIN (test code = 5700518152) 4.9 g/dL 3.5-5 ALK PHOS (test code = 4319470865) 61 U/L 34-122 ALT(SGPT) (test code = 2746252082) 26 U/L 9-51 AST(SGOT) (test code = 9401168265) 28 U/L 13-40 Lab Interpretation (test code = Normal 99446-6) [facility] CenterLipase [id number] 20:52:00 Test Item Value Reference Range Interpretation Comments LIPASE (test code = 7893121095) 22 U/L 0-220 Lab Interpretation (test code = Normal 03294-7) [facility] CenteraPTT2019-09-05 20:40:00 Test Item Value Reference Range Interpretation Comments APTT Patient (test See_Comment L [Automat ed code = 3173-2) message] The system which generated this result transmitted reference range : 23 - 38 Seconds . The reference range was not used to interpr et this result as normal/abnormal . MADISYN (test code = MADISYN) The [facility] patient population mean normal value for aPTT is 30 seconds. Lab Interpretation Abnormal (test code = 27734-9) [facility] CenterProthrombin Time (PT) / [id number] 20:38:00 Test Item Value Reference Range Interpretation [...] tions. Lab Interpretation (test Normal code = 45824-3) [facility] WITH [id number] 20:33:00 Test Item Value Reference Range Interpretation Comments WBC (test code = See_Comment [Automated 3690-2) message] The sy stem which generated this [...] RDW-SD (test code = 44.3 fL 39-49.9 14553-2) RDW-CV (test code = 12.9 % 12-15.5 788-0) PLT (test code = See_Comment [Automated 777-3) message] The sy stem which generated this result transmitted reference range : 166 - 358 10*3/ ?L. The reference r aiden was not used to interpret this result as normal/abnormal . MPV (test code = 10.9 fL 9.5-12.9 88236-8) NRBC/100 WBC (test See_Comment [Automat ed code = 3158483924) message] The system which generated this result transmitted reference range : 0.0 - 10.0 /100 WBCs. The refer ence range was not u sed to interpret th is result as normal/abnormal . NRBC x10^3 (test code <0.01 See_Comment [Auto mated = 1053442493) message] The s ystem which generated this result transmitted reference range : 10*3/?L. The reference range was not used to interpret this result as normal/abnormal . GRAN MAT (NEUT) % 86.3 % (test code = 770-8) IMM GRAN % (test code 0.50 % = 5509751886) LYMPH % (test code = 8.8 % 736-9) MONO % (test code = 4.0 % 5905-5) EOS % (test code = 0.2 % 713-8) BASO % (test code = 0.2 % 706-2) GRAN MAT x10^3(ANC) 8.24 10*3/uL 1.88-7.09 H (test code = 8014672588) IMM GRAN x10^3 (test 0.05 10*3/uL 0-0.06 code = 2363226678) LYMPH x10^3 (test code 0.84 10*3/uL 1.32-3.29 L = 731-0) MONO x10^3 (test code 0.38 10*3/uL 0.33-0.92 = 742-7) EOS x10^3 (test code = <0.03 0.03-0.39 L 711-2) BASO x10^3 (test code <0.03 0.01-0.07 = 704-7) Lab Interpretation Abnormal (test code = 11037-2) [facility]"
--- NOTE | 2023-01-21 23:30 | EDPHYS ---
Physician Documentation [facility] Name: Dolores Pérez Age: 62 yrs Sex: Female : 1960 Arrival Date: 01/21/2023 Time: 22:29 Bed 6 Private MD: ED Physician Crystal Levy HPI: 01/21 23:06 This 62 yrs old Female presents to ER via Wheelchair with complaints of Cough. sp3 23:06 62-year-old female with a history of hypertension, TIA, anxiety, hypothyroidism, and sp3 recent pneumonia who just finished Zithromax 2 days ago who is still on Keflex prescribed by other physicians presents to the ED for recurrent worsening cough that started at 5 PM today. She states she is anxious about the cough and wants to "get ahead of it". She denies any fever, chest pain, back pain, production of the cough, wheezing, abdominal pain, nausea, vomiting, diarrhea, rash, syncope, neuro symptoms, travel history, or any other signs or symptoms on ROS at this time.. Historical: - Allergies: 22:38 NSAIDS; as6 22:38 peanuts; as6 22:38 Prednisone; as6 22:38 sesame seed; as6 22:38 Sulfa (Sulfonamide Antibiotics); as6 - PMHx: 22:38 Anxiety; Transient cerebral ischemia; Hypertension; Hypothyroidism; High Cholesterol; as6 diabetes mellitus; depressive disorder; COPD; Asthma; - Immunization history:: Client reports receiving the 2nd dose of the Covid vaccine, pfizer. - Social history:: Smoking status: Patient denies any tobacco usage or history of. ROS: 23:08 Constitutional: Negative for fever, chills, and weight loss, Eyes: Negative for injury, sp3 pain, redness, and discharge, ENT: Negative for injury, pain, and discharge, Neck: Negative for injury, pain, and swelling, Cardiovascular: Negative for chest pain, palpitations, and edema, Abdomen/GI: Negative for abdominal pain, nausea, vomiting, diarrhea, and constipation, Back: Negative for injury and pain, MS/Extremity: Negative for injury and deformity, Skin: Negative for injury, rash, and discoloration, Neuro: Negative for headache, weakness, numbness, tingling, and seizure, Psych: Negative for depression, anxiety, suicide ideation, homicidal ideation, and hallucinations, Allergy/Immunology: Negative for hives, rash, and allergies, Endocrine: Negative for neck swelling, polydipsia, polyuria, polyphagia, and marked weight changes, Hematologic/Lymphatic: Negative for swollen nodes, abnormal bleeding, and unusual bruising. 23:08 All other systems are negative. Exam: 23:08 Constitutional: This is a well developed, well nourished patient who is awake, alert, sp3 and in no acute distress. Head/Face: Normocephalic, atraumatic. Eyes: Pupils equal round and reactive to light, extra-ocular motions intact. Lids and lashes normal. Conjunctiva and sclera are non-icteric and not injected. Cornea within normal limits. Periorbital areas with no swelling, redness, or edema. Neck: Trachea midline, no thyromegaly or masses palpated, and no cervical lymphadenopathy. Supple, full range of motion without nuchal rigidity, or vertebral point tenderness. No Meningismus. Chest/axilla: Normal chest wall appearance and motion. Nontender with no deformity. No lesions are appreciated. Cardiovascular: Regular rate and rhythm with a normal S1 and S2. No gallops, murmurs, or rubs. Normal PMI, no JVD. No pulse deficits. Respiratory: Lungs have equal breath sounds bilaterally, clear to auscultation and percussion. No rales, rhonchi or wheezes noted. No increased work of breathing, no retractions or nasal flaring. Abdomen/GI: Soft, non-tender, with normal bowel sounds. No distension or tympany. No guarding or rebound. No evidence of tenderness throughout. Back: No spinal tenderness. No costovertebral tenderness. Full range of motion. Skin: Warm, dry with normal turgor. Normal color with no rashes, no lesions, and no evidence of cellulitis. MS/ Extremity: Pulses equal, no cyanosis. Neurovascular intact. Full, normal range of motion. Neuro: Awake and alert, GCS 15, oriented to person, place, time, and situation. Cranial nerves II-XII grossly intact. Motor strength 5/5 in all extremities. Sensory grossly intact. Cerebellar exam normal. Normal gait. Psych: Awake, alert, with orientation to person, place and time. Behavior, mood, and affect are within normal limits. Vital Signs: 22:37 BP 130 / 63; Pulse 68; Resp 18 S; Temp 97.5(TE); Pulse Ox 98% on R/A; Weight 58.97 kg as6 (R); Height 5 ft. 7 in. (R); Pain 0/10; 23:31 BP 136 / 62; Pulse 66; Resp 16; Pulse Ox 100% on R/A; mb9 22:37 Body Mass Index 20.36 (58.97 kg, 170.18 cm) as6 22:37 Pain Scale: Adult as6 MDM: 22:44 Patient medically screened. sp3 23:08 Data reviewed: vital signs, nurses notes, radiologic studies. ED course: 62-year-old sp3 female who still on antibiotics with the PMH above now presents with a cough x6 hours. I am not highly concerned that this is sepsis, severe pneumonia, acute coronary syndrome, PE, or any other critical findings at this time.. 23:29 ED course: X-ray demonstrates no pneumonia or other infectious findings. Will discharge sp3 patient on Tessalon Perles and follow-up with her PCP.. 01/21 22:44 Order name: CXR XRAY sp3 Administered Medications: No medications were administered Disposition Summary: 01/21/23 23:30 Discharge Ordered Location: Home sp3 Condition: Stable sp3 Diagnosis - Cough sp3 Followup: sp3 - With: Private Physician - When: Upon discharge from the Emergency Department - Reason: Continuance of care Discharge Instructions: - Discharge Summary Sheet sp3 - Cough, Adult, [id number] sp3 Forms: - Medication Reconciliation Form sp3 - Thank You Letter sp3 - Antibiotic Education sp3 - Prescription Opioid Use sp3 - Patient Portal Instructions sp3 Prescriptions: - Tessalon Perles 100 mg Oral Capsule - take 1 capsule by ORAL route every 8 hours As needed; 15 capsule; Refills: 0, sp3 Product Selection Permitted Signatures: Dispatcher [employer] EDMS Crystal Levy MD MD sp3 Luis Felipe Ro RN RN as6
--- NOTE | 2023-01-21 23:30 | ER ---
Nurse's Notes [facility] Name: Dolores Pérez Age: 62 yrs Sex: Female : 1960 Arrival Date: 01/21/2023 Time: 22:29 Bed 6 Private MD: Diagnosis: Cough Presentation: 01/21 22:34 Chief complaint: Patient states: "I can't stop coughing. I was here recently and had as6 pneumonia". Coronavirus screen: At this time, the client does not indicate any symptoms associated with coronavirus-19. Ebola Screen: No symptoms or risks identified at this time. Risk Assessment: Do you want to hurt yourself or someone else? Patient reports no desire to harm self or others. 22:34 Method Of Arrival: Wheelchair as6 22:37 Initial Sepsis Screen: Does the patient meet any 2 criteria? No. Patient's initial as6 sepsis screen is negative. Does the patient have a suspected source of infection? No. Patient's initial sepsis screen is negative. Onset of symptoms was January 21, 2023. 22:37 Acuity: AARON 4 as6 Historical: - Allergies: 22:38 NSAIDS; as6 22:38 peanuts; as6 22:38 Prednisone; as6 22:38 sesame seed; as6 22:38 Sulfa (Sulfonamide Antibiotics); as6 - PMHx: 22:38 Anxiety; Transient cerebral ischemia; Hypertension; Hypothyroidism; High Cholesterol; as6 diabetes mellitus; depressive disorder; COPD; Asthma; - Immunization history:: Client reports receiving the 2nd dose of the Covid vaccine, pfizer. - Social history:: Smoking status: Patient denies any tobacco usage or history of. Screenin:40 [facility] ED Fall Risk Assessment (Adult) History of falling in the last 3 months, mb9 including since admission Yes- fall prone (multiple falls) (3 pts) Confusion or Disorientation No (0 pts) Intoxicated or Sedated No (0 pts) Impaired Gait Yes (1 pt) Mobility Assist Device Used Yes (1 pt) Altered Elimination No (0 pt) Score/Fall Risk Level 3 or more points = High Risk Oriented to surroundings, Maintained a safe environment, Educated pt \\T\\ family on fall prevention, incl call for assistance when getting out of bed, Assessed \\T\\ reinforced patient's understanding of fall precautions, Used ambulatory aids as needed (educated on \\T\\ assisted with). Abuse screen: Denies threats or abuse. Nutritional screening: No deficits noted. Tuberculosis screening: No symptoms or risk factors identified. Assessment: 22:44 General: Appears in no apparent distress. Behavior is calm, cooperative. Pain: Denies mb9 pain. Neuro: Gardner Agitation-Sedation Scale (RASS): 0 - Alert and Calm Level of Consciousness is awake, alert, obeys commands, Oriented to person, place, time, situation, Appropriate for age. Cardiovascular: Patient's skin is warm and dry. Respiratory: Reports cough that is non-productive, Breath sounds are clear bilaterally. GI: No signs and/or symptoms were reported involving the gastrointestinal system. : No signs and/or symptoms were reported regarding the genitourinary system. Derm: Skin is pink, warm \\T\\ dry. Musculoskeletal: Range of motion: intact in all extremities. 23:31 Reassessment: No changes from previously documented assessment. Patient and/or family mb9 updated on plan of care and expected duration. Pain level reassessed. Patient is alert, oriented x 3, equal unlabored respirations, skin warm/dry/pink. Vital Signs: 22:37 BP 130 / 63; Pulse 68; Resp 18 S; Temp 97.5(TE); Pulse Ox 98% on R/A; Weight 58.97 kg as6 (R); Height 5 ft. 7 in. (R); Pain 0/10; 23:31 BP 136 / 62; Pulse 66; Resp 16; Pulse Ox 100% on R/A; mb9 22:37 Body Mass Index 20.36 (58.97 kg, 170.18 cm) as6 22:37 Pain Scale: Adult as6 ED Course: 22:33 Patient arrived in ED. mr 22:35 Crystal Levy MD is Attending Physician. sp3 22:35 Arm band placed on. as6 22:38 Triage completed. as6 22:39 Cherise Encarnacion RN is Primary Nurse. mb9 22:39 Placed in gown. Bed in low position. Call light in reach. Side rails up X 1. Client mb9 placed on continuous cardiac and pulse oximetry monitoring. NIBP monitoring applied. 22:40 No provider procedures requiring assistance completed. mb9 22:45 Patient did not have IV access during this emergency room visit. mb9 23:23 CXR XRAY In Process Unspecified. EDMS Administered Medications: No medications were administered Medication: 22:40 VIS not applicable for this client. mb9 Outcome: 23:30 Discharge ordered by . sp3 23:32 Discharged to home ambulatory. mb9 23:32 Condition: stable 23:32 Discharge instructions given to patient, Instructed on discharge instructions, follow up and referral plans. Demonstrated understanding of instructions, follow-up care, medications, Prescriptions given X 1. 23:38 Patient left the ED. mb9 Signatures: Dispatcher [employer] MICHEALHI Cherise Edmond Crystal Levy MD MD sp3 Luis Felipe Ro RN RN as6 Cherise Encarnacion, RN RN mb9
[2023-01-22 01:23] VITALS: TEMP 97.5
[2023-01-22 01:24] VITALS: BP 136/62; O2SAT 100
--- NOTE | 2023-01-22 12:33 | RAD REPORT ---
EXAM DESCRIPTION: Chest Single View CLINICAL HISTORY: 62 years Female COUGH COMPARISON: None FINDINGS: Lung volumes adequate. Cardiac silhouette is normal in size. No pneumothorax. No large pleural effusion. No focal consolidation. No acute bony finding. IMPRESSION: No acute cardiopulmonary abnormality. Electronically signed by: Smitha Klein MD 01/21/2023 11:31 PM CDT Due to temporary technical issues with the PACS/Fluency reporting system, reports are being signed by the in house radiologists without review as a courtesy to insure prompt reporting. The interpreting radiologist is fully responsible for the content of the report.
== END 2023-01-21 23:38 | disposition home or self-care (01) ==
LOC: ER 22:29
DX: R05.9 Cough, unspecified (principal); J44.9 Chronic obstructive pulmonary disease, unspecified; Z88.2 Allergy status to sulfonamides; Z88.6 Allergy status to analgesic agent; Z88.8 Allergy status to other drugs, medicaments and biological substances; Z91.010 Allergy to peanuts; Z91.018 Allergy to other foods; Z91.048 Other nonmedicinal substance allergy status
CPT/HCPCS: 71045; 99283

== ENCOUNTER 2023-01-29 22:06 | Emergency (ER) | payer OTHER ==
--- OUTSIDE RECORDS SUMMARY | 2023-01-29 22:14 | XMS REPORT | Continuity of Care Document ---
:1960 Author Organization [facility] t Address [address] [place] [address] Care Team Providers Name Role Phone PAULINA DUNHAM Primary Care Physician Unavailable Susan Rodriguez Attending Clinician Unknown, Attending Attending Clinician Unavailable SUSAN LEE Attending Clinician Unavailable Doctor Unassigned, [place] Attending Clinician Unavailable Only, Ang Db Test [...] Attending Clinician Unavailable Neida Jiménez Attending Clinician Mareclina Che MD Attending Clinician NICOLE ISSA Attending [...] Effective Date Expiration Date Teodora FALK II [id number] 2016 00:00:00 Problems Condition Condition Condition Status [...] to 4-10 ity of mide adverse 00:00: [place] Antibiot reaction 00 Medica l ics) s Branch Social History Social Habit Start Date Stop Date Quantity Comments Source Exposure to 2022-08-14 2022-08-24 Not sure [facility] SARS-CoV-2 00:00:00 09:35:00 [place] [facility] (event) Branch Tobacco use and 2022-08-24 2022-08-24 Smokeless tobacco Un iversity of exposure 00:00:00 00:00:00 non-user [facility] Sex Ass[birth year] At [birth year] Universit y of 00:00:00 00:00:00 [facility] Smoking Status Start Date Stop Date Source Never smoked tobacco [facility] Medications Ordered Filled Start Stop Current Ordering Indication Dosage Frequency Signature Comments Components Source Medication Medication Date Date Medication? Clinician (SIG) Name Name chiragphentracy Yes [id number] 5mL Take 5 mL Univers mine-pseudo 2-18 by mouth 4 it y of ephedrine-D 00:00[place] (four[place] (BROMFED 00 times Medical DM) 2-30-10 daily as Bran ch mg/5 mL needed for syrup Congestion /Allergies . benzonatate Yes [id number] 100mg Take 1 Univers 100 mg 7-03 capsule by ity of capsule 00:00: mouth 3 [place] 00 (three) Medical times Branch daily as needed for Cough. loratadine Yes [id number] 10mg Take 1 U nivers (CLARITIN) 7-03 tablet by ity of 10 mg 00:00: mouth at [place] tablet 00 bedtime as Medical needed for Branch Allergies. benzonatate Yes [id number] 100mg Take 1 Univers 100 mg 7-03 capsule by ity of capsule 00:00: mouth 3 [place] 00 (three) Medical times Branch daily as needed for Cough. loratadine 0 Yes [id number] 10mg Take 1 U nivers (CLARITIN) 7-03 tablet by ity of 10 mg 00:00: mouth at [place] tablet 00 bedtime as Medical needed for Branch Allergies. benzonatate 0 Yes [id number] 100mg Take 1 Univers 100 mg 7-03 capsule by ity of capsule 00:00: mouth 3 [place] 00 (three) Medical times Branch daily as needed for Cough. loratadine 2-0 Yes [id number] 10mg Take 1 U nivers (CLARITIN) 7-03 tablet by ity of 10 mg 00:00: mouth at [place] tablet 00 bedtime as Medical needed for Branch Allergies. benzonatate 2021-0 Yes [id number] 100mg Take 1 Univers 100 mg 7-03 capsule by ity of capsule 00:00: mouth 3 (three) Medical times Branch daily as needed for Cough. loratadine 2-0 Yes [id number] 10mg Take 1 U nivers (CLARITIN) 7-03 tablet by ity of 10 mg 00:00: mouth at [place] tablet 00 bedtime as Medical needed for Branch Allergies. benzonatate 2021-0 Yes [id number] 100mg Take 1 Univers 100 mg 7-03 capsule by ity of capsule 00:00: mouth (three) Medical times Branch daily as needed for Cough. loratadine 2021-0 Yes [id number] 10mg Take 1 U nivers (CLARITIN) 7-03 tablet by ity of 10 mg 00:00: mouth at [place] tablet 00 bedtime as Medical needed for Branch Allergies. benzonatate 2021-0 Yes [id number] 100mg Take 1 Univers 100 mg 2-01 capsule by ity of capsule 00:00: mouth (three) Medical times Branch daily as needed for Cough. benzonatate 2021-0 Yes [id number] 100mg Take 1 Univers 100 mg 2-01 capsule by ity of capsule 00:00: mouth (three) Medical times Branch daily as needed for Cough. benzonatate 2021-0 Yes [id number] 100mg Take 1 Univers 100 mg 2-01 capsule by ity of capsule 00:00: mouth (three) Medical times Branch daily as needed for Cough. benzonatate 2021-0 Yes [id number] 100mg Take 1 Univers 100 mg 2-01 capsule by ity of capsule 00:00: mouth (three) Medical times Branch daily as needed for Cough. benzonatate 2-0 Yes [id number] 100mg Take 1 Univers 100 mg 2-01 capsule by ity of capsule 00:00: mouth (three) Medical times Branch daily as needed for Cough. benzonatate 2022-0 Yes [id number] 100mg Take 1 Univers 100 mg 2-01 capsule by ity of capsule 00:00: mouth 3 [place] 00 (three) Medical times Branch daily as needed for Cough. benzonatate 0 Yes [id number] 100mg Take 1 Univers 100 mg 2-01 capsule by ity of capsule 00:00: mouth 3 [place] 00 (three) Medical times Branch daily as needed for Cough. benzonatate 0 Yes [id number] 100mg Take 1 Univers 100 mg 2-01 capsule by ity of capsule 00:00: mouth 3 [place] 00 (three) Medical times Branch daily as needed for Cough. benzonatate 0 Yes [id number] 100mg Take 1 Univers 100 mg 2-01 [...] Therapy: Other (see Comments) iopamidol 2020-07- No [id number] 120mL 120 mL, Univers (ISOVUE 08-31 12-24 Intravenou ity o f 370-500 mL) 00:15: 23:08 s, ONCE, 1 [place] injection 00 :00 dose, On Medica l 120 mL Fri Branch 06/29/21 at 1815, Routine amoxicillin 2020-07- No [id number] 1{tbl} Take 1 Univers -clavulanat 2-24 -04 [...] Indication s: acute pain ondansetron 2020-07- No [id number] 4mg Take 1 Univers 4 mg tablet 2-24 12-30 tablet by it y of 00:00: 05:59 mouth [place] 00 :00 every 8 Medical (eight) Branch hours for 5 days. atorvastati 2020-07 Yes 10mg 10 mg, Univ ers n (LIPITOR) 1-15 Oral, QHS, it y of tablet 10 03:00: First dose [place] mg 00 on [facility] 05/20/21 Branch at 2100, Until Discontinu ed, Routine atorvastati 2020-07 Yes 10mg Take 10 mg Univers n 10 mg 1-14 by mouth ity of tablet 17:23: at [place] bedtime. Medical Branch spironolact 2020-07 Yes 25mg [...] by mouth ity of tablet 17:23: at [place] bedtime. Medical Branch spironolact 2020-07 Yes 25mg [...] by ity of (METFORMIN 17:23: mouth at [place] as ORAL) bedtime. Medical Branch atorvastati 2020-07 [...] 00 First dose Medical on [facility] 05/20/21 at 0900, Until Discontinu ed, Routine clopidogreL 2020-07 Yes 75mg 75 mg, Univ ers (PLAVIX) 1-14 Oral, QAM, ity o f tablet 75 15:00: First dose [place] mg 00 on [facility] 05/20/21 Branch at 0900, Until Discontinu ed, Routine ALPRAZolam 2020-07 Yes .5mg 0.5 mg, Univ ers (XANAX) 1-14 Oral, ity of tablet 0.5 15:00: DAILY, [place] mg 00 First dose Medical on [facility] 05/20/21 at 0900, Until Discontinu ed, Routine spironolact 2020-07 Yes 25mg 25 mg, Univ ers one 1-14 Oral, BID, ity of (ALDACTONE) 14:00: First dose [place] tablet 25 00 on [facility] mg 05/20/21 Branch at 0800, Until Discontinu ed, Routine Sliding 2020-07 Yes Subcutaneo Univ ers Scale 1-14 us, AC, ity of Insulin-Reg 13:30: First dose [place] ular [facility] Branch at 0730, Until Discontinu ed, Routine levothyroxi 2020-07 Yes 100ug 100 mcg, U nivers ne 1-14 Oral, ity of (SYNTHROID) 12:00: QAM-0600, [place] tablet 100 00 First dose Med ical mcg on [facility] 05/20/21 at 0600, Until Discontinu ed, Routine pantoprazol 2020-07 Yes 40mg 40 mg, Univ ers e 1-14 Oral, ity of (PROTONIX) 06:30: DAILY, [place] EC tablet 00 First dose Medi hermelindo 40 mg (after Branch last modificati on) on [place] 05/20/21 at 0030, Until Discontinu ed cyclobenzap 2020-07 Yes 10mg 10 mg, Univ ers rine 1-14 Oral, ity of (FLEXERIL) 06:12: TIDPRN, [place] tablet 10 13 Starting Medica l mg on [facility] 05/20/21 at 0012, Until Discontinu ed, Routine, Muscle Spasms, leg pain polyethylen 2020-07 Yes 17g 17 g, Unive rs e glycol 1-14 Oral, ity of 3350 powder 06:04: D36SUIC, [place] 17 g 16 Starting Medical on [facility] 05/20/21 at 0004, Until Discontinu ed, Routine, Constipati on glucagon 2020-07 Yes 1mg 1 mg, Univers (GLUCAGEN -14 Intramuscu ity of DIAGNOSTIC 05:29: lar, PRN, [place] KIT) 29 Starting Medical injection 1 on [facility] 05/19/21 at 2329, Until Discontinu ed, JEFFREY, Blood Glucose < or = 70 mg/dL and patient is unable to swallow or has mental changes. dextrose 50 2020-07 Yes 25mL 25 mL, Univ ers % in water 14 Slow IV ity of (D50W) 05:29: Push, PRN, [place] injection 29 Starting Medica l [address] [facility] 05/19/21 at 2329, Until Discontinu ed, JEFFREY, Blood Glucose < or = 70 mg/dL and patient is unable to swallow or has mental status changes. ondansetron 2020-07 Yes 4mg 4 mg, Slow Univers (ZOFRAN 1-14 IV Push, ity of (PF)) 05:29: Q6HPRN, [place] injection 4 21 Starting Medi hermelindo mg on [facility] Branch 05/19/21 at 2329, Until Discontinu ed, Routine, Nausea and Vomiting (N/V) morpHINE 2020-07 No 2mg 2 mg, Slow Un brice injection 2 14 11-15 IV Push, ity of mg 05:29: 05:28 Q4HPRN, [place] 11 :11 Starting Medical on [facility] Branch 05/19/21 at 2329, Until 05/20/21 at 2328, Routine, Pain (scale 7-10), Chest pain traMADoL 2020-07- No 50mg 50 mg, Univer s (ULTRAM) 07-20 1116 Oral, ity of tablet 50 05:29: 05:28 Q8HPRN, [place] mg 08 :08 Starting Medical on [facility] Branch 05/19/21 at 2329, Until 05/21/21 at 2328, Routine, Pain (scale 4-6) acetaminoph 2020-07 Yes 650mg 650 mg, Un brice en 14 Oral, ity of (TYLENOL) 05:29: Q6HPRN, [place] tablet 650 05 Starting Medic al mg on [facility] Branch 05/19/21 at 2329, Until Discontinu ed, Routine, Pain (scale 1-3) omeprazole 2020-07- No 20mg Take 20 mg Univers 20 mg 07-19 by mouth ity of capsule 23:30: 00:00 daily. [place] 33 :00 [facility] guaiFENesin 2020- No 100mg 100 mg, U nivers 100 mg/5 mL 09-14 Oral, ity of solution 05:00: 16:59 ONCE, 1 [place] 100 mg 00 :00 dose, Fri Medical 09/13/20 at Branch 2300, Routine ketorolac 2020- No 30mg 30 mg, Unive rs (TORADOL) 09-1411 Slow IV ity of injection 03:30: 02:27 Push, [place] 30 mg 00 :00 ONCE, 1 Medical dose, [facility] 09/13/20 at 2130, JEFFREY
Fa culty member approving Restricted medication : DIANA BERG benzonatate Yes [id number] 100mg Take 1 Univers 100 mg 3-10 capsule by ity of capsule 00:00: mouth 3 [place] 00 (three) Medical times [place] daily as needed for Cough. benzonatate Yes [id number] 100mg Take 1 Univers 100 mg 3-10 capsule by ity of capsule 00:00: mouth 3 [place] 00 (three) Medical times Branch daily as needed for Cough. benzonatate 2020- No [id number] 100mg Take 1 Univers 100 mg 09-13- [...] 10 193, JEFFREY mL codeine-gua 2019-0 Yes [id number] 10mL Take 10 mL Univers ifenesin -21 by mouth ity of 10-100 mg/5 00:00: every 6 [place] as mL solution 00 (six) Medical hours as Branch needed for Cough. albuterol 2020-0 Yes [id number] 2.5mg Inhale 3 Univers 2.5 mg /3 1-21 mL every 4 ity of mL (0.083 00:00: (four) [place] %) 00 hours as Medical nebulizer needed for Bran ch solution Wheezing or Shortness of Breath. May also nebulize one extra every 6 hours. albuterol 2020-0 Yes [id number] 2.5mg Inhale 3 Univers 2.5 mg /3 1-21 mL every 4 ity of mL (0.083 00:00: (four) [place] %) 00 hours as Medical nebulizer needed for Bran ch solution Wheezing or Shortness of Breath. May also nebulize one extra every 6 hours. albuterol 2020-0 Yes [id number] 2.5mg Inhale 3 Univers 2.5 mg /3 1-21 mL every 4 ity of mL (0.083 00:00: (four) [place] %) 00 hours as Medical nebulizer needed for Bran ch solution Wheezing or Shortness of Breath. May also nebulize one extra every 6 hours. albuterol 2020-0 Yes [id number] 2.5mg Inhale 3 Univers 2.5 mg /3 1-21 mL every 4 ity of mL (0.083 00:00: (four) [place] %) 00 hours as Medical nebulizer needed for Bran ch solution Wheezing or Shortness of Breath. May also nebulize one extra every 6 hours. albuterol 2020-0 Yes [id number] 2.5mg Inhale 3 Univers 2.5 mg /3 1-21 mL every 4 ity of mL (0.083 00:00: (four) [place] %) 00 hours as Medical nebulizer needed for Bran ch solution Wheezing or Shortness of Breath. May also nebulize one extra every 6 hours. albuterol 2020-0 Yes [id number] 2.5mg Inhale 3 Univers 2.5 mg /3 1-21 mL every 4 ity of mL (0.083 00:00: (four) [place] %) 00 hours as Medical nebulizer needed for Bran ch solution Wheezing or Shortness of Breath. May also nebulize one extra every 6 hours. albuterol 2020-0 Yes [id number] 2.5mg Inhale 3 Univers 2.5 mg /3 1-21 mL every 4 ity of mL (0.083 00:00: (four) [place] %) 00 hours as Medical nebulizer needed for Bran ch solution Wheezing or Shortness of Breath. May also nebulize one extra every 6 hours. albuterol 2020-0 Yes [id number] 2.5mg Inhale 3 Univers 2.5 mg /3 1-21 mL every 4 ity of mL (0.083 00:00: (four) [place] %) 00 hours as Medical nebulizer needed for Bran ch solution Wheezing or Shortness of Breath. May also nebulize one extra every 6 hours. albuterol 2020-0 Yes [id number] 2.5mg Inhale 3 Univers 2.5 mg /3 1-21 mL every 4 ity of mL (0.083 00:00: (four) [place] %) 00 hours as Medical nebulizer needed for Bran ch solution Wheezing or Shortness of Breath. May also nebulize one extra every 6 hours. albuterol 2020-0 Yes [id number] 2.5mg Inhale 3 Univers 2.5 mg /3 1-21 mL every 4 ity of mL (0.083 00:00: (four) [place] %) 00 hours as Medical nebulizer needed for Bran ch solution Wheezing or Shortness of Breath. May also nebulize one extra every 6 hours. albuterol 2020-0 Yes [id number] 2.5mg Inhale 3 Univers 2.5 mg /3 1-21 mL every 4 ity of mL (0.083 00:00: (four) [place] %) 00 hours as Medical nebulizer needed for Bran ch solution Wheezing or Shortness of Breath. May also nebulize one extra every 6 hours. albuterol 2020-0 Yes [id number] 2.5mg Inhale 3 Univers 2.5 mg /3 1-21 mL every 4 ity of mL (0.083 00:00: (four) [place] %) 00 hours as Medical nebulizer needed for Bran ch solution Wheezing or Shortness of Breath. May also nebulize one extra every 6 hours. albuterol 2020-0 Yes [id number] 2.5mg Inhale 3 Univers 2.5 mg /3 1-21 mL every 4 ity of mL (0.083 00:00: (four) [place] %) 00 hours as Medical nebulizer needed for Bran ch solution Wheezing or Shortness of Breath. May also nebulize one extra every 6 hours. albuterol 2020-0 Yes [id number] 2.5mg Inhale 3 Univers 2.5 mg /3 1-21 mL every 4 ity of mL (0.083 00:00: (four) [place] %) 00 hours as Medical nebulizer needed for Bran ch solution Wheezing or Shortness of Breath. May also nebulize one extra every 6 hours. albuterol 2020-0 Yes [id number] 2.5mg Inhale 3 Univers 2.5 mg /3 1-21 mL every 4 ity of mL (0.083 00:00: (four) [place] %) 00 hours as Medical nebulizer needed for Bran ch solution Wheezing or Shortness of Breath. May also nebulize one extra every 6 hours. codeine-gua 2020-0 2020- No [id number] 10mL Take 10 mL Univers ifenesin 1-21 [...] 03/11/19 at 1430, JEFF[place] dicyclomine 2018-0 Yes [id number] 10mg Take 1 Univers (BENTYL) 10 9-05 capsule by it y of mg capsule 00:00: mouth 4 [place] (four) Medical times Branch daily. ondansetron 2018-0 Yes [id number] 4mg Take 1 Univers 4 mg 9-05 tablet by ity of disintegrat 00:00: mouth [place] ing tablet 00 every 4 Medica l (four) Branch hours as needed for Nausea and Vomiting (N/V). dicyclomine 2019-0 Yes [id number] 10mg Take 1 Univers (BENTYL) 10 9-05 capsule by it y of mg capsule 00:00: mouth 4 [place] 00 (four) Medical times Branch daily. ondansetron 2019-0 Yes [id number] 4mg Take 1 Univers 4 mg 9-05 tablet by ity of disintegrat 00:00: mouth [place] ing tablet 00 every 4 Medica l (four) Branch hours as needed for Nausea and Vomiting (N/V). dicyclomine 2019-0 Yes [id number] 10mg Take 1 Univers (BENTYL) 10 9-05 capsule by it y of mg capsule 00:00: mouth 4 [place] 00 (four) Medical times Branch daily. ondansetron 2019-0 Yes [id number] 4mg Take 1 Univers 4 mg 9-05 tablet by ity of disintegrat 00:00: mouth [place] ing tablet 00 every 4 Medica l (four) Branch hours as needed for Nausea and Vomiting (N/V). dicyclomine 2020- No [id number] 10mg Take 1 Univers (BENTYL) 10 03-11 03-10 capsule by i ty of mg capsule 00:00: 00:00 mouth 4 [place] as 00 :00 (four) Medical times Branch daily. ondansetron 2020- No [id number] 4mg Take 1 Univers 4 mg 9-05 [...] by mouth ity of tablet 14:40: at [place] [address] bedtime. Medical Branch omeprazole 2018 Yes 20mg Take 20 mg U nivers 20 mg 4-10 by mouth ity of capsule 14:40: daily. [place] [address] Medical Branch atorvastati 2018-0 Yes 10mg Take 10 mg Univers n 10 mg 4-10 by mouth ity of tablet 14:40: at [place] [address] bedtime. Medical Branch omeprazole 2018-0 Yes 20mg Take 20 mg U nivers 20 mg 4-10 by mouth ity of capsule 14:40: daily. [place] [address] Medical Branch atorvastati 2018-0 Yes 10mg Take 10 mg Univers n 10 mg 4-10 by mouth ity of tablet 14:40: at [place] [address] bedtime. Medical Branch omeprazole 2017-0 Yes 20mg Take 20 mg U nivers 20 mg 4-10 by mouth ity of capsule 14:40: daily. [place] [address] Medical Branch atorvastati 2017-0 Yes 10mg Take 10 mg Univers n 10 mg 4-10 by mouth ity of tablet 14:40: at [place] [address] bedtime. Medical Branch omeprazole 2017-0 Yes 20mg Take 20 mg U nivers 20 mg 4-10 by mouth ity of capsule 14:40: daily. [place] [address] Medical Branch atorvastati 2017-0 Yes 10mg Take 10 mg Univers n 10 mg 4-10 by mouth ity of tablet 14:40: at [place] [address] bedtime. Medical Branch omeprazole 2017-0 Yes 20mg Take 20 mg U nivers 20 mg 4-10 by mouth ity of capsule 14:40: daily. [place] [address] Medical Branch levothyroxi 2018-0 Yes TAKE 1 Univ ers ne 125 mcg 4-10 TABLET BY ity of tablet 00:00: MOUTH [place] 00 EVERY Medical MORNING Branch levothyroxi 2018-0 Yes TAKE 1 Univ ers ne 125 mcg 4-10 TABLET BY ity of tablet 00:00: MOUTH [place] EVERY Medical MORNING Branch levothyroxi 2018-0 Yes TAKE 1 Univ ers ne 125 mcg 4-10 TABLET BY ity of tablet 00:00: MOUTH [place] 00 EVERY Medical MORNING Branch levothyroxi 2018-0 Yes TAKE 1 Univ ers ne 125 mcg 4-10 TABLET BY ity of tablet 00:00: MOUTH [place] EVERY Medical MORNING Branch levothyroxi 2018-0 Yes TAKE 1 Univ ers ne 125 mcg 4-10 TABLET BY ity of tablet 00:00: MOUTH [place] EVERY Medical MORNING Branch levothyroxi 2018-0 Yes TAKE 1 Univ ers ne 125 mcg 4-10 TABLET BY ity of tablet 00:00: MOUTH [place] EVERY Medical MORNING Branch levothyroxi 2018-0 Yes [...] TABLET BY ity of tablet 00:00: MOUTH [place] 00 EVERY Medical MORNING Branch clopidogrel 2018-0 Yes TAKE 1 Univ ers 75 mg 2-06 TABLET BY ity of tablet 00:00: MOUTH 00 EVERY Medical MORNING Branch clopidogrel 2018-0 Yes TAKE 1 Univ ers 75 mg 2-06 TABLET BY ity of tablet 00:00: MOUTH [place] 00 EVERY Medical MORNING Branch clopidogrel 2018-0 Yes TAKE 1 Univ ers 75 mg 2-06 TABLET BY ity of tablet 00:00: MOUTH 00 EVERY Medical MORNING Branch clopidogrel 2018-0 Yes TAKE 1 Univ ers 75 mg 2-06 TABLET BY ity of tablet 00:00: MOUTH [place] 00 EVERY Medical MORNING Branch clopidogrel 2018-0 Yes TAKE 1 Univ ers 75 mg 2-06 TABLET BY ity of tablet 00:00: MOUTH [place] 00 EVERY Medical MORNING Branch clopidogrel 2018-0 Yes TAKE 1 Univ ers 75 mg 2-06 TABLET BY ity of tablet 00:00: MOUTH [place] 00 EVERY Medical MORNING Branch clopidogrel 2018-0 Yes TAKE 1 Univ ers 75 mg 2-06 TABLET BY ity of tablet 00:00: MOUTH [place] 00 EVERY Medical MORNING Branch clopidogrel 2018-0 Yes TAKE 1 Univ ers 75 mg 2-06 TABLET BY ity of tablet 00:00: MOUTH [place] 00 EVERY Medical MORNING Branch clopidogrel 2018-0 Yes TAKE 1 Univ ers 75 mg 2-06 TABLET BY ity of tablet 00:00: MOUTH [place] 00 EVERY Medical MORNING Branch clopidogrel 2018-0 Yes TAKE 1 Univ ers 75 mg 2-06 TABLET BY ity of tablet 00:00: MOUTH [place] 00 EVERY Medical MORNING Branch clopidogrel 2018-0 Yes TAKE 1 Univ ers 75 mg 2-06 TABLET BY ity of tablet 00:00: MOUTH [place] 00 EVERY Medical MORNING Branch Vital Signs Vital Name Observation Time Observation Value Comments Source Systolic blood 2022-08-24 15:43:00 135 mm[Hg] Univer sity of pressure [facility] Diastolic blood 2022-08-24 15:43:00 83 mm[Hg] Unive rsity of pressure [facility] Heart rate 2022-08-24 15:43:00 94 /min [facility] Body temperature 2022-08-24 15:43:00 36.83 Brittany Univ ers[facility] [place] [facility] Respiratory rate 2022-08-24 15:43:00 18 /min [facility] [place] [facility] Body height 2022-08-24 15:43:00 170.2 cm [facility] [place] [facility] Body weight 2022-08-24 15:43:00 58.968 kg [facility] [place] [facility] BMI 2022-08-24 15:43:00 20.36 kg/m2 [facility] [place] [facility] Oxygen saturation in 2022-08-24 15:43:00 99 /min University of Arterial blood by [facility] Pulse oximetry Branch Systolic blood 2022-01-08 02:02:00 147 mm[Hg] Univer sity of pressure [place] [facility] Diastolic blood 2022-01-08 02:02:00 78 mm[Hg] Unive rsity of pressure [place] [facility] Heart rate 2022-01-08 02:02:00 78 /min Universi ty [facility] [place] [facility] Respiratory rate 2022-01-08 02:02:00 18 /min Univ ersity of [place] [facility] Oxygen saturation in 2022-01-08 02:02:00 100 /min University of Arterial blood by [facility] Pulse oximetry Branch Body temperature 2022-01-07 23:24:00 37.17 Brittany [facility] [place] [facility] Body weight 2022-01-07 23:24:00 58.968 kg [facility]i [facility] [place] [facility] BMI 2022-01-07 23:24:00 20.36 kg/m2 [facility] [place] [facility] Systolic blood 2022-01-06 20:29:00 140 mm[Hg] Univer sity of pressure [place] [facility] Diastolic blood 2022-01-06 20:29:00 106 mm[Hg] Unive rsity of pressure [place] [facility] Heart rate 2022-01-06 20:29:00 102 /min [facility]i [facility] [place] [facility] Body temperature 2022-01-06 20:29:00 37.5 Brittany [facility] [place] [facility] Respiratory rate 2022-01-06 20:29:00 16 /min Univ [facility] [place] [facility] Body height 2022-01-06 20:29:00 170.2 cm [facility] [place] [facility] Body weight 2022-01-06 20:29:00 58.968 kg [facility] [place] [facility] BMI 2022-01-06 20:29:00 20.36 kg/m2 [facility] [place] [facility] Oxygen saturation in 2022-01-06 20:29:00 99 /min University of Arterial blood by [facility] Pulse oximetry Branch Systolic blood 2021-09-02 01:52:00 132 mm[Hg] Univer sity of pressure [place] [facility] Diastolic blood 2021-09-02 01:52:00 75 mm[Hg] Unive rsity of pressure [place] [facility] Heart rate 2021-09-02 01:52:00 67 /min [facility] [place] [facility] Respiratory rate 2021-09-02 01:52:00 16 /min Univ ers[facility] [place] [facility] Oxygen saturation in 2021-09-02 01:52:00 99 /min University of Arterial blood by [facility] Pulse oximetry Branch Body temperature 2021-09-01 23:57:00 36.17 Brittany [facility] [place] [facility] Body height 2021-09-01 23:57:00 170.2 cm [facility] [place] [facility] Body weight 2021-09-01 23:57:00 58.968 kg [facility] [place] [facility] BMI 2021-09-01 23:57:00 20.36 kg/m2 [facility] [place] [facility] Systolic blood 2021-08-07 15:57:00 165 mm[Hg] Univer sity of pressure [place] [facility] Diastolic blood 2021-08-07 15:57:00 71 mm[Hg] Unive rsity of pressure [place] [facility] Heart rate 2021-08-07 15:57:00 97 /min [facility] [place] [facility] Body temperature 2021-08-07 15:57:00 37.44 Brittany [facility] [place] [facility] Respiratory rate 2021-08-07 15:57:00 18 /min [facility] [place] [facility] Body height 2021-08-07 15:57:00 170.2 cm [facility] [place] [facility] Body weight 2021-08-07 15:57:00 56.7 kg [facility] [place] [facility] BMI 2021-08-07 15:57:00 19.58 kg/m2 [facility] [place] [facility] Oxygen saturation in 2021-08-07 15:57:00 98 /min University of Arterial blood by [facility] Pulse oximetry Branch Systolic blood 2021-06-30 01:29:00 132 mm[Hg] Univer sity of pressure [place] [facility] Diastolic blood 2021-06-30 01:29:00 75 mm[Hg] Unive rsity of pressure [place] [facility] Heart rate 2021-06-30 01:29:00 75 /min [facility] [place] [facility] Respiratory rate 2021-06-30 01:29:00 18 /min [facility] [place] [facility] Oxygen saturation in 2021-06-30 01:29:00 100 /min University of Arterial blood by [facility] Pulse oximetry Branch Body temperature 2021-06-29 22:01:00 36.67 Brittany [facility] [place] [facility] Body weight 2021-06-29 22:01:00 53.071 kg Universi [facility] [place] [facility] BMI 2021-06-29 22:01:00 18.32 kg/m2 [facility] [place] [facility] Systolic blood 2021-05-20 21:45:00 137 mm[Hg] [facility] [place] [facility] Diastolic blood 2021-05-20 21:45:00 75 mm[Hg] [facility] [place] [facility] Heart rate 2021-05-20 21:45:00 75 /min [facility] [place] [facility] Body temperature 2021-05-20 21:45:00 36.5 Brittany [facility] [place] [facility] Respiratory rate 2021-05-20 21:45:00 16 /min [facility] [place] [facility] Oxygen saturation in 2021-05-20 21:45:00 97 /min [facility] of Arterial blood by [facility] Pulse oximetry Branch Body weight 2021-05-20 04:14:00 53.479 kg [facility] [place] [facility] BMI 2021-05-20 04:14:00 18.47 kg/m2 [facility] [place] [facility] Body height 2021-05-20 03:42:00 170.2 cm [facility] [place] [facility] Systolic blood 2020-09-14 03:30:00 147 mm[Hg] [facility] [place] [facility] Diastolic blood 2020-09-14 03:30:00 89 mm[Hg] [facility] [place] [facility] Heart rate 2020-09-14 03:30:00 73 /min [facility] [place] [facility] Respiratory rate 2020-09-14 03:30:00 19 /min [facility] [place] [facility] Oxygen saturation in 2020-09-14 03:30:00 97 /min [facility] Arterial blood by [facility] Pulse oximetry Branch Body temperature 2020-09-14 02:10:00 36.5 Brittany [facility] [place] [facility] Body height 2020-09-14 02:09:00 170.2 cm [facility] [place] [facility] Body weight 2020-09-14 02:09:00 61.236 kg [facility] [place] [facility] BMI 2020-09-14 02:09:00 21.14 kg/m2 [facility] [place] [facility] Systolic blood 2020-09-14 03:30:00 147 mm[Hg] [facility] [place] [facility] Diastolic blood 2020-09-14 03:30:00 89 mm[Hg] [facility] [place] [facility] Heart rate 2020-09-14 03:30:00 73 /min [facility] [place] [facility] Respiratory rate 2020-09-14 03:30:00 19 /min [facility] [place] [facility] Oxygen saturation in 2020-09-14 03:30:00 97 /min [facility] Ar[facility] blood by [facility] Pulse oximetry Branch Body temperature 2020-09-14 02:10:00 36.5 Brittany [facility] [place] [facility] Body height 2020-09-14 02:09:00 170.2 [...] 98 /min [facility] Arterial blood by [facility] Pulse oximetry Branch Systolic blood 2019-07-28 01:00:00 143 mm[Hg] [facility] [place] [facility] Diastolic blood 2019-07-28 01:00:00 74 mm[Hg] [facility] [place] [facility] Body temperature 2019-07-28 00:05:00 36.56 Brittany [facility] [place] [facility] Body height 2019-07-28 00:05:00 170.2 cm [facility] [place] [facility] Body weight 2019-07-28 00:05:00 68.04 kg [facility] [place] [facility] BMI 2019-07-28 00:05:00 23.49 kg/m2 [facility] [place] [facility] Heart rate 2019-07-28 01:36:00 70 /min [facility] [place] [facility] Respiratory rate 2019-07-28 01:36:00 18 /min [facility] [place] [facility] Oxygen saturation in 2019-07-28 01:24:00 98 /min [facility] Arterial blood by [facility] Pulse oximetry Branch Systolic blood 2019-07-28 01:00:00 143 mm[Hg] [facility] [place] [facility] Diastolic blood 2019-07-28 01:00:00 74 mm[Hg] [facility] [place] [facility] Body temperature 2019-07-28 00:05:00 36.56 Brittany [facility] [place] [facility] Body height 2019-07-28 00:05:00 170.2 cm [facility] [place] [facility] Body weight 2019-07-28 00:05:00 68.04 kg [facility] [place] [facility] BMI 2019-07-28 00:05:00 23.49 kg/m2 [facility] Systolic blood 2019-03-11 21:00:00 141 mm[Hg] [facility] [place] [facility] Diastolic blood 2019-03-11 21:00:00 66 mm[Hg] [facility] [place] [facility] Heart rate 2019-03-11 21:00:00 97 /min [facility] [place] [facility] Respiratory rate 2019-03-11 21:00:00 18 /min [facility] [place] [facility] Oxygen saturation in 2019-03-11 21:00:00 97 /min [facility] Arter[facility] blood by [facility] Pulse oximetry Branch Body temperature 2019-03-11 19:13:00 36.06 Brittany [facility] [place] [facility] Body weight 2019-03-11 19:12:00 68.04 kg [facility] BMI 2019-03-11 19:12:00 23.49 kg/m2 [facility] Systolic blood 2019-03-11 21:00:00 141 mm[Hg] [facility] Diastolic blood 2019-03-11 21:00:00 66 mm[Hg] [facility] Heart rate 2019-03-11 21:00:00 97 /min [facility] Respiratory rate 2019-03-11 21:00:00 18 /min [facility] Oxygen saturation in 2019-03-11 21:00:00 97 /min [facility] Arterial blood by [facility] Pulse oximetry [place] Body temperature 2019-03-11 19:13:[address] [facility] Body weight 2019-03-11 19:12:00 68.04 kg [facility] BMI 2019-03-11 19:12:00 23.49 kg/m2 [facility] Procedures Procedure Date / Time Performing Clinician Source Performed POCT SARS-COV-2 ANTIGEN 2022-08-24 15:52:00 Susan Lee [facility] (BINAX NOW) [facility] POCT MOLECULAR FLU 2022-08-24 15:51:00 Unknown, Attending [facility] ASSIGNMENT OF BENEFITS 2022-08-24 15:38:07 Doctor Unassigned, No [facility] Name [facility] XR CHEST 1 VW 2022-01-08 00:24:42 Alex Oconnell [facility] RAPID STREP SCREEN FOR 2022-01-06 20:47:00 [facility] Medical Branch COVID-19 (ID NOW RAPID 2022-01-06 20:47:00 Sherrill Connor [facility] TESTING) Medical Branch CONSENT/REFUSAL FOR 2022-01-06 20:26:18 Doctor Unassigned, No [facility] DIAGNOSIS AND TREATMENT Name [facility] RAPID INFLUENZA A/B 2021-09-02 00:47:00 Cameron Dalton [facility] COVID-19 (ID NOW RAPID 2021-09-02 00:47:00 [facility] XR CHEST 2 VW 2021-09-02 00:27:31 Miki [facility] CONSENT/REFUSAL FOR 2021-09-01 23:46:25 Doctor Unassigned, No [facility] Name Medical Branch XR CHEST 2 VW 2021-08-07 16:43:01 Darius Ledesma [facility] CONSENT/REFUSAL FOR 2021-08-07 15:37:28 Doctor Unassigned, No [facility] [place] [facility] Name Medical Branch CT ABDOMEN PELVIS W 2021-06-29 23:11:24 Jose Alejandro Castano [facility] CONTRAST Medical Branch LIPASE 2021-06-29 22:18:00 Omaira [facility] TROPONIN I 2021-06-29 22:18:00 [facility] COMP. METABOLIC PANEL 2021-06-29 22:18:00 Omaira [facility] ([id number]) Medical Branch CBC WITH DIFF 2021-06-29 22:18:00 [facility] URINALYSIS 2021-06-29 22:18:00 [facility] CONSENT/REFUSAL FOR 2021-06-29 21:50:47 Doctor Unassigned, No [facility] [place] [facility] POCT GLUCOSE (AUTOMATED) 2021-05-20 17:30:00 Marcelina Che [facility] HB ECG ROUTINE & RHYTHM 2021-05-20 15:36:46 Sami Caceres [facility] STRIP [facility] TRANSTHORACIC ECHO (TTE) 2021-05-20 15:19:52 [facility] COMPLETE [facility] TROPONIN I 2021-05-20 11:04:00 Esther [facility] BASIC METABOLIC PANEL 2021-05-20 11:04:00 Esther [facility] (NA, K, CL, CO2, Medical Branch GLUCOSE, BUN, CREATININE, CA) CBC WITH DIFF 2021-05-20 11:04:[address] [facility] TROPONIN I 2021-05-20 01:56:[address] [facility] XR CHEST 1 VW 2021-05-20 00:01:[address] [facility] LIPASE 2021-05-19 23:49:[address] [facility] MAGNESIUM 2021-05-19 23:49:[address] [facility] TROPONIN I 2021-05-19 23:49:[address] [facility] COMP. METABOLIC PANEL 2021-05-19 23:49:[address] [facility] ([id number]) [facility] CBC WITH DIFF 2021-05-19 23:49:[address] [facility] PROTHROMBIN TIME / INR 2021-05-19 23:49:00 [facility]ida [facility] ACTIVATED PARTIAL 2021-05-19 23:49:00 Neida Irving [facility] THRMPLAS [facility] COVID-19 (ID NOW RAPID 2021-05-19 23:49:00 Neida Irving [facility] TESTING) [facility] CONSENT/REFUSAL FOR 2021-05-19 23:01:42 Doctor Unassigned, No Un [facility] DIAGNOSIS AND TREATMENT Name Medical Branch URINALYSIS 2020-09-14 02:42:00 Diana Berg [facility] XR CHEST 1 VW 2020-09-14 02:30:21 Diana Berg [facility] LIPASE 2020-09-14 02:21:00 Diana Berg [facility] TROPONIN I 2020-09-14 02:21:00 Diana Berg [facility] HEPATIC FUNCTION PANEL 2020-09-14 02:21:00 Diana Berg [facility] ([id number]) (ALB,T.PRO,BILI Medical Branch T,BU/BC,ALT,AST,ALK PHOS) BASIC METABOLIC PANEL 2020-09-14 02:21:00 Diana [facility] [place] (NA, K, CL, CO2, Medical Branch GLUCOSE, BUN, CREATININE, CA) CBC WITH DIFF 2020-09-14 02:21:00 Diana Berg [facility] N-TERMINAL PRO-BNP 2020-09-14 02:21:00 Diana Berg [facility] COVID-19 (ID NOW RAPID 2020-09-14 02:21:00 Diana [facility] [place] [facility] Medical [facility] NOTICE OF PRIVACY 2020-09-14 02:00:22 Doctor Unassigned, No Univ [facility] PRACTICES Name [facility] CONSENT/REFUSAL FOR 2020-09-14 01:58:28 Doctor Unassigned, No [facility] [place] [facility] TREATMENT Name [facility] HEPATIC FUNCTION PANEL 2019-07-28 00:55:00 [facility]angel [facility] ([id number] (ALB,T.PRO,BILI Medical Branch T,BU/BC,ALT,AST,ALK PHOS) BASIC METABOLIC PANEL 2019-07-28 00:55:00 Mariangel Ortega [facility] [place] (NA, K, CL, CO2, Medical Branch GLUCOSE, BUN, CREATININE, CA) CBC WITH DIFFERENTIAL 2019-07-28 00:55:00 Mariangel [facility] RAPID STREP SCREEN FOR 2019-07-28 00:55:00 [facility] ADC,CLC OR LCC ONLY - 2019-07-28 00:55:00 Mariangel Ortega [facility] [place] INFLUENZA A & B DIRECT Medical [facility] [place] ANTIGEN CBC WITH DIFFERENTIAL 2019-07-28 00:55:00 Mariangel [facility] XR CHEST 2 VW 2019-07-28 00:28:40 Mariangel Ortega [facility] CONSENT/REFUSAL FOR 2019-07-27 23:47:18 Doctor Unassigned, No [facility] [place] DI[facility]NOSIS [facility] TREATMENT Name Medical Branch LIPASE 2019-03-11 19:53:00 Sherrill Connor [place] [facility] HEPATIC FUNCTION PANEL 2019-03-11 19:53:00 Sherrill Connor [facility] ([id number]) (ALB,T.PRO,BILI [facility] T,BU/BC,ALT,AST,ALK PHOS) BASIC METABOLIC PANEL 2019-03-11 19:53:[address] [facility] (NA, K, CL, CO2, Medical Branch GLUCOSE, BUN, CREATININE, CA) CBC WITH DIFFERENTIAL 2019-03-11 19:53:00 Sherrill Connor [facility] PROTHROMBIN TIME / INR 2019-03-11 19:53:00 Sherrill Connor [facility] ACTIVATED PARTIAL 2019-03-11 19:53:00 Sherrill Connor [facility] THRMPLAS [facility] NOTICE OF PRIVACY 2019-03-11 18:56:54 Doctor Unassigned, [facility] PRACTICES Name [facility] Encounters Start End Encounter Admission Attending Care Care Encounter Source Date/Time Date/Time Type Type Clinicians Facility Department ID 2021-05-06 Emergency [facility] [id number] Univers 05:05:13 ity of [facility] 2022-08-24 2022-08-24 Urgent Susan Lee [facility] [id number] Univers 09:40:00 10:00:00 Care Unknown, [id number] [id number] Amandeep as JOCELYN?BLEA [phone] Ak dical [address] MEDICAL OFFICE BUILDING 2022-08-24 2022-08-24 Outpatient R TAMIKO [facility] [id number] Univers 09:40:00 09:40:00 SUSAN ity of [facility] 2022-08-24 2022-08-24 Orders Doctor SUSHIL [id number] Univers 00:00:00 00:00:00 Only Unassigned, KIRK [id number] [facility] [id number] Amandeep as [id number] [address] 2022-01-11 2022-01-11 Laboratory Only, Ang Db Test [facility] 1.2.8 40.114 [id number] Univers 13:15:00 13:30:00 Only Monik Charles [facility] [id number] ity of [place] 4.2.7.2.686 Amandeep as JOCELYN?BLEA [phone] Ak lennie [address] MEDICAL OFFICE BUILDING 2022-01-11 2022-01-11 [facility] [id number] Univers 13:15:00 13:24:38 MONIK radha [facility] 2022-01-07 2022-01-07 Emergency X [facility] ERT [id number] Univers 18:26:00 21:08:00 [facility] 2022-01-07 2022-01-07 Emergency [facility] [id number] Univers 18:26:00 21:08:00 Alex DENNISON [id number] ity of [place] [id number] [facility] [id number] [address] 2022-01-06 2022-01-06 Emergency [facility] [id number] Univers 15:31:00 16:32:00 SHERRILL [facility] 2022-01-06 2022-01-06 Emergency [facility] [id number] Univers 15:31:00 16:32:00 Sherrill DENNISON [id number] i ty of [place] 4.2.7.2.686 [facility] [id number] [address] 2021-09-01 2021-09-01 Emergency [facility] [id number] Univers 17:59:00 19:56:00 CAMERON delaney [facility] 2021-09-01 2021-09-01 Emergency [facility] 1.2.840.114 [id number] Univers 17:59:00 19:56:00 Cameron DENNISON [id number] i ty [facility] 4.2.7.[address] [facility] [id number] [address] 2021-09-01 2021-09-01 Orders Doctor LING 1.2.840.114 [id number] Univers 00:00:00 00:00:00 Only Unassigned, KIRK [id number] ity of [place] [facility] 4.2.7.2.686 Amandeep as [id number] [facility] 009 Branch 2021-08-08 2021-08-08 Letter SUSHIL Daniels 1.2.840.114 [id number] Univers 00:00:00 00:00:00 (Out) Nirmala Ballard KIRK [id number] it y of HOSPITAL 4.2.7.2.686 Amandeep as [phone] [facility] 019 Branch 2021-08-07 2021-08-07 Emergency X [facility] [id number] Univers 09:58:00 11:43:00 DARIUS ity of [facility] 2021-08-07 2021-08-07 Emergency [facility] [id number] Univers 09:58:00 11:43:00 Darius DENNISON [id number] i ty of [place] 4.2.7.2.6 [facility] [id number] [facility] 084 [place] 2021-08-07 2021-08-07 Orders Doctor LING 1.2.840.114 [id number] Univers 00:00:00 00:00:00 Only Unassigned, KIRK [id number] ity of [place] [facility] 4.2.7.2.686 Amandeep as [phone] [facility] 009 Branch 2021-06-29 2021-06-29 Emergency X [facility] ERT [id number] Univers 16:04:00 19:33:00 JOSE ALEJANDRO ity [facility] 2021-06-29 2021-06-29 Emergency [facility] 1.2.840.114 [id number] Univers 16:04:00 19:33:00 Jose Alejandro DENNISON [id number] i ty of [place] 4.2.7.2.686 [facility] [id number] [address] 2021-05-19 2021-05-20 [facility] [id number] Univers 17:04:00 17:03:00 MARCELINA itradha [facility] 2021-05-19 2021-05-20 Emergency Neida Irving [facility] 1.2.840. 114 [id number] [facility] 17:04:00 17:03:00 Marcelina Che 350.1.13.10 ity of [facility] [place].7.2.[place] [id number] [address] 2020-09-16 2020-09-16 Outpatient R LUIS MANUEL [facility] [id number] Univers 10:20:00 10:20:00 NICOLE ity [facility] 2020-09-16 2020-09-16 [facility] 1.2.840.114 [id number] 09:44:15 10:04:15 Only Fam Pob I Health [id number] [place] 4.2.7.2.686 Professio [phone] [place] [address] [address] 2020-09-16 2020-09-16 Laboratory Lab, [facility] Fam Pob I [facility] 1.2. 840.114 [id number] [facility] 09:44:15 10:04:15 Only Nicole Issa 350.1.13.10 ity of [place] 4.2.7.2.686 Amandeep as Professio [phone] Ak dical [address] Office [facility] One 2020-09-13 2020-09-13 Emergency [facility] 1.2.840.114 [id number] 20:05:00 22:24:00 Diana Dennison [id number] [place] 4.2.7.2.686 [place] [id number] [facility] 2020-09-13 2020-09-13 Emergency [facility] 1.2.840.114 [id number] [facility] 20:05:00 22:24:00 Diana Dennison 350.1.13.10 ity [place].2.686 [place] [id number] [address] 2019-07-27 2019-07-27 Emergency Shannon [facility] 1.2.840.114 [id number] 18:07:12 20:13:00 Mariangel Dennison 350.1.13.10 [place] 4.2.7.2.686 [place] [id number] 2019-07-27 2019-07-27 Emergency [facility] 1.2.840.114 [id number] [facility] 18:07:12 20:13:00 Mariangel Dennison 350.1.13.10 ity of [place] 4.2.7.2.686 [facility] [id number] [address] 2019-07-27 2019-07-27 Orders Doctor SUSHIL 1.2.840.114 [id number] 00:00:00 00:00:00 Only Unassigned, KIRK 350.1.13.10 [place] [facility] 4.2.7.2.686 [id number] 009 2019-07-27 2019-07-27 Orders Doctor SUSHIL 1.2.840.114 [id number] Univers 00:00:00 00:00:00 Only Unassigned, KIRK 350.1.13.10 ity of [place] [facility] 4.2.7.2.686 Amandeep [id number] [address] 2019-03-11 2019-03-11 Emergency [facility] [id number] 14:05:54 16:45:00 Sherrill Dennison 350.1.13.10 [place] 4.2.7.2.686 [place] [id number] [facility] 2019-03-11 2019-03-11 [facility] [id number] [facility] 14:05:54 16:45:00 Sherrill Dennison 350.1.13.10 i ty of [place] 4.2.7.2.686 [facility] [id number] [address] Results Test Description Test Time Test Comments Results Result Comments Source POCT MOLECULAR FLU 2022-08-24 16:02:31 Test Item Value Reference Range Interpretation Comme nts POCT Molecular FluA (test code = 83525-2) Negative Negative POCT Molecular FluB (test code = 07280-3) Negative Negative Lab Interpretation (test code = 69357-0) [facility] SARS-COV-2 ANTIGEN (BINAX NOW)2022-08-24 15:52:00 Test Item Value Reference Range Interpretation Comments POCT SARS-COV-2 ANTIGEN (test Not Detected Not Detected code = 71399-8) On board controls acceptable Yes with C Line (test code = 3574) Lab Interpretation (test code = Normal 51624-9) [facility]. METABOLIC PANEL (23300)2021-06-29 23:10:56 Test Item Value Reference Range Interpretation Comments NA (test code = 137 mmol/L 135-145 6381209463) K (test code = 3.9 mmol/L 3.5-5.0 8132992779) CL (test code = 102 mmol/L 98-108 6352518158) CO2 TOTAL (test code = 27 mmol/L 23-31 0596557058) AGAP (test code = 2-16 1317327422) BUN (test code = 10 mg/dL 7-23 9474493094) GLUCOSE (test code = 137 mg/dL 70-110 H 3621836387) CREATININE (test code = 0.69 mg/dL 0.50-1.04 8130897351) TOTAL BILI (test code = 0.5 mg/dL 0.1-1.1 6901516741) CALCIUM (test code = 9.2 mg/dL 8.6-10.6 1545829665) T PROTEIN (test code = 7.7 g/dL 6.3-8.2 4368295838) ALBUMIN (test code = 4.9 g/dL 3.5-5.0 6018713112) ALK PHOS (test code = 73 U/L 34-122 5876122780) ALTv (test code = 15 U/L 5-35 1742-6) AST(SGOT) (test code = 21 U/L 13-40 2912280468) eGFR (test code = mL/min/1.73m2 3297681385) MADISYN (test code = MADISYN) Association of [...] tests). Lab Interpretation Abnormal (test code = 45833-3) [facility] [id number] 22:59:27 Test Item Value Reference Interpretation Comments Range TROPONIN I (test 0.001 ng/mL See_Comment [Automated code = 2962532640) message] The system which generated this result [...] biotin. Lab Interpretation Normal (test code = 61396-9) [facility] 22:49:29 Test Item Value Reference Range Interpretation Comments LIPASE (test code = 4631269414) 57 U/L 0-220 Lab Interpretation (test code = Normal 43163-4) General acute hospital WITH [id number] 22:29:28 Test Item Value Reference Range Interpretation [...] RDW-SD (test code = 43.4 fL 39.0-49.9 44795-1) RDW-CV (test code = 12.7 % 12.0-15.5 788-0) PLT (test code = See_Comment [Automated 777-3) message] The sy stem which generated this result transmitted reference range : 166 - 358 10*3/ ?L. The reference r aiden was not used to interpret this result as normal/abnormal . MPV (test code = 10.7 fL 9.5-12.9 83620-7) NRBC/100 WBC (test See_Comment [Automat ed code = 8586296159) message] The system which generated this result transmitted reference range : 0.0 - 10.0 /100 WBCs. The refer ence range was not u sed to interpret th is result as normal/abnormal . NRBC x10^3 (test code <0.01 See_Comment [Auto mated = 9239131138) message] The s ystem which generated this result transmitted reference range : 10*3/?L. The reference range was not used to interpret this result as normal/abnormal . GRAN MAT (NEUT) % 68.6 % (test code = 770-8) IMM GRAN % (test code 0.40 % = 2968137474) LYMPH % (test code = 22.9 % 736-9) MONO % (test code = 6.3 % 5905-5) EOS % (test code = 1.6 % 713-8) BASO % (test code = 0.2 % 706-2) GRAN MAT x10^3(ANC) 6.89 10*3/uL 1.88-7.09 (test code = 2691976088) IMM GRAN x10^3 (test 0.04 10*3/uL 0.00-0.06 code = 1311274664) LYMPH x10^3 (test code 2.30 10*3/uL 1.32-3.29 = 731-0) MONO x10^3 (test code 0.63 10*3/uL 0.33-0.92 = 742-7) EOS x10^3 (test code = 0.16 10*3/uL 0.03-0.39 711-2) BASO x10^3 (test code <0.03 0.01-0.07 = 704-7) Lab Interpretation Abnormal (test code = 95226-0) [facility]2021-05-20 17:33:00 Test Item Value Reference Range Interpretation Comments POCT GLU (test code = 3273633623) 80 mg/dL 70-110 Lab Interpretation (test code = Normal 39754-4) [facility] [id number] 12:36:17 Test Item Value Reference Interpretation Comments Range TROPONIN I (test 0.002 ng/mL See_Comment [Automated code = 4960303679) message] The system which generated this result [...] biotin. Lab Interpretation Normal (test code = 89064-0) [facility] Metabolic Panel (NA, K, CL, CO2, GLUCOSE, BUN, CREATININE, CA)2021-05-20 12:31:20 Test Item Value Reference Range Interpretation Comments NA (test code = 138 mmol/L 135-145 6546561037) K (test code = 4.2 mmol/L 3.5-5.0 2977117656) CL (test code = 106 mmol/L 98-108 2709166101) CO2 TOTAL (test code = 25 mmol/L 23-31 5194171154) AGAP (test code = 2-16 8310519149) BUN (test code = 12 mg/dL 7-23 7772954405) GLUCOSE (test code = 146 mg/dL 70-110 H 6527764162) CREATININE (test code = 0.62 mg/dL 0.50-1.04 1012003430) CALCIUM (test code = 10.0 mg/dL 8.6-10.6 5502169594) eGFR (test code = mL/min/1.73m2 6607369560) MADISYN (test code = MADISYN) Association of [...] tests). Lab Interpretation Abnormal (test code = 81678-1) [facility] hospital with [id number] 11:49:32 Test Item Value Reference Range Interpretation Comments WBC (test code = See_Comment [Automated 0325-2) message] The sy stem which generated this result transmitted reference range : 4.30 - 11.10 10*3/?L. The reference range was not used to interpret this result as normal/abnormal . RBC (test code = See_Comment L [Automated 109-8) message] The sy stem which generated this [...] RDW-SD (test code = 40.3 fL 39.0-49.9 33858-8) RDW-CV (test code = 11.9 % 12.0-15.5 L 788-0) PLT (test code = See_Comment [Automated 257-3) message] The sy stem which generated this result transmitted reference range : 166 - 358 10*3/ ?L. The reference r aiden was not used to interpret this result as normal/abnormal . MPV (test code = 11.3 fL 9.5-12.9 23060-7) NRBC/100 WBC (test See_Comment [Automat ed code = 2173998691) message] The system which generated this result transmitted reference range : 0.0 - 10.0 /100 WBCs. The refer ence range was not u sed to interpret th is result as normal/abnormal . NRBC x10^3 (test code <0.01 See_Comment [Auto mated = 3984020420) message] The s ystem which generated this result transmitted reference range : 10*3/?L. The reference range was not used to interpret this result as normal/abnormal . GRAN MAT (NEUT) % 59.9 % (test code = 770-8) IMM GRAN % (test code 0.50 % = 0234710882) LYMPH % (test code = 30.0 % 736-9) MONO % (test code = 6.4 % 5905-5) EOS % (test code = 2.9 % 713-8) BASO % (test code = 0.3 % 706-2) GRAN MAT x10^3(ANC) 3.72 10*3/uL 1.88-7.09 (test code = 3097141183) IMM GRAN x10^3 (test 0.03 10*3/uL 0.00-0.06 code = 1559197060) LYMPH x10^3 (test code 1.86 10*3/uL 1.32-3.29 = 731-0) MONO x10^3 (test code 0.40 10*3/uL 0.33-0.92 = 742-7) EOS x10^3 (test code = 0.18 10*3/uL 0.03-0.39 711-2) BASO x10^3 (test code <0.03 0.01-0.07 = 704-7) Lab Interpretation Abnormal (test code = 27611-1) [id number] 02:24[facility]28 Test Item Value Reference Interpretation Comments Range TROPONIN I (test 0.003 ng/mL See_Comment [Automated code = 6453465256) message] The system which generated this result [...] biotin. Lab Interpretation Normal (test code = 79472-8) [facility] 00:25:00 Test Item Value Reference Range Interpretation Comments MAGNESIUM (test code = 4781904856) 1.9 mg/dL 1.7-2.4 Lab Interpretation (test code = Normal 67671-3) [facility] CenterTROP[facility] [id number] 00:20:03 Test Item Value Reference Interpretation Comments Range TROPONIN I (test 0.002 ng/mL See_Comment [Automated code = 9244125147) message] The system which generated this result [...] biotin. Lab Interpretation Normal (test code = 88222-2) [facility] CenterCOM. METABOLIC PANEL (23750)2021-05-20 00:09:00 Test Item Value Reference Range Interpretation Comments NA (test code = 139 mmol/L 135-145 9071086811) K (test code = 3.9 mmol/L 3.5-5.0 1293433616) CL (test code = 101 mmol/L 98-108 4731286857) CO2 TOTAL (test code = 28 mmol/L 23-31 8347853372) AGAP (test code = 2-16 1303277770) BUN (test code = 13 mg/dL 7-23 6793304803) GLUCOSE (test code = 143 mg/dL 70-110 H 5939537303) CREATININE (test code = 0.68 mg/dL 0.50-1.04 4388640778) TOTAL BILI (test code = 0.4 mg/dL 0.1-1.4 7766573529) CALCIUM (test code = 10.4 mg/dL 8.6-10.6 0046817129) T PROTEIN (test code = 8.0 g/dL 6.3-8.2 8946183591) ALBUMIN (test code = 5.0 g/dL 3.5-5.0 2353975677) ALK PHOS (test code = 93 U/L 34-122 3653999270) ALTv (test code = 21 U/L 5-35 1742-6) AST(SGOT) (test code = 31 U/L 13-40 6500797199) eGFR (test code = mL/min/1.73m2 0494632791) MADISYN (test code = MADISYN) Association of [...] tests). Lab Interpretation Abnormal (test code = 27112-3) [facility]LIP[facility]2021[facility] 00:08:20 Test Item Value Reference Range Interpretation Comments LIPASE (test code = 6814079067) 66 U/L 0-220 Lab Interpretation (test code = Normal 62087-7) [facility] CenteraPTT2021-[facility]-14 00:06:19 Test Item Value Reference Range Interpretation Comments APTT Patient (test See_Comment [Automat ed code = 3173-2) message] The system which generated this result transmitted reference range : 23 - 38 Seconds . The reference range was not used to interpr et this result as normal/abnormal . MADISYN (test code = MADISYN) The [facility] patient population mean normal value for aPTT is 30 seconds. Lab Interpretation Normal (test code = 49757-0) [facility] CenterPROTHROMBIN TIME / [id number] 00:04:19 Test Item Value Reference Range Interpretation [...] tions. Lab Interpretation (test Normal code = 15740-3) [facility] CenterCBC WITH [id number] 23:55:39 Test Item Value Reference Range Interpretation [...] RDW-SD (test code = 40.4 fL 39.0-49.9 60528-5) RDW-CV (test code = 11.9 % 12.0-15.5 L 788-0) PLT (test code = See_Comment [Automated 777-3) message] The sy stem which generated this result transmitted reference range : 166 - 358 10*3/ ?L. The reference r aiden was not used to interpret this result as normal/abnormal . MPV (test code = 11.0 fL 9.5-12.9 29670-9) NRBC/100 WBC (test See_Comment [Automat ed code = 5782975086) message] The system which generated this result transmitted reference range : 0.0 - 10.0 /100 WBCs. The refer ence range was not u sed to interpret th is result as normal/abnormal . NRBC x10^3 (test code <0.01 See_Comment [Auto mated = 4910207480) message] The s ystem which generated this result transmitted reference range : 10*3/?L. The reference range was not used to interpret this result as normal/abnormal . GRAN MAT (NEUT) % 53.4 % (test code = 770-8) IMM GRAN % (test code 0.60 % = 7148315516) LYMPH % (test code = 36.2 % 736-9) MONO % (test code = 6.4 % 5905-5) EOS % (test code = 3.3 % 713-8) BASO % (test code = 0.1 % 706-2) GRAN MAT x10^3(ANC) 3.58 10*3/uL 1.88-7.09 (test code = 0015366559) IMM GRAN x10^3 (test 0.04 10*3/uL 0.00-0.06 code = 6182881658) LYMPH x10^3 (test code 2.43 10*3/uL 1.32-3.29 = 731-0) MONO x10^3 (test code 0.43 10*3/uL 0.33-0.92 = 742-7) EOS x10^3 (test code = 0.22 10*3/uL 0.03-0.39 711-2) BASO x10^3 (test code <0.03 0.01-0.07 = 704-7) Lab Interpretation Abnormal (test code = 06777-2) [facility] CenterUrinalysis2021-03-11 03:27:11 Test Item Value Reference Range Interpretation Comments APPEARANCE (test code = Clear Clear 5684776794) COLOR (test code = Straw Yellow A 5174248166) PH (test code = 4.8-8.0 7106754925) SP GRAVITY (test code = 1.003-1.030 8561518718) GLU U QUAL (test code = 500 mg/dL Normal A 8114310043) BLOOD (test code = Negative Negative 5640535936) KETONES (test code = Negative Negative 3468226707) PROTEIN (test code = Negative Negative 2887-8) UROBILIN (test code = Normal Normal 6572983475) BILIRUBIN (test code = Negative Negative 5810284196) NITRITE (test code = Negative Negative 8009269777) LEUK KEVEN (test code = 25/uL Negative A 6781862442) RBC/HPF (test code = See_Comment [Autom ated message] 3896334817) The system [employer] generated this result transmit zoila reference range : 0 - 3 HPF. The refe rence range was not u sed to interpret th is result as normal/abnormal . WBC/HPF (test code = See_Comment [Autom ated message] 8737175560) The system [employer] generated this result transmit zoila reference range : 0 - 5 HPF. The refe rence range was not u sed to interpret th is result as normal/abnormal . BACTERIA (test code = Negative Negative 0619292882) MUCOUS (test code = Slight Negative LPF A 5922895780) SQ EPITH (test code = HPF 3583903161) Lab Interpretation (test Abnormal code = 34054-8) [facility] CenterTroponin [id number] 03:00:28 Test Item Value Reference Range Interpretation Comments TROPONIN I (test <0.012 See_Comment [Automated code = 4885414340) message] The system which generated this result [...] ? Lab Interpretation Normal (test code = 75450-4) [facility] CenterN-TERMINAL [id number] 02:57:10 Test Item Value Reference Range Interpretation Comments NT-proBNP (test code 25 pg/mL See_Comment [Autom ated = 6519326555) message] The system which generated this result transmitted reference range : <=125. The reference range was not used to interpret this result as normal/abnormal . MADISYN (test code = MADISYN) Biotin has been reported to cause a negative bias, interpret results relative to patient's use of biotin. Lab Interpretation Normal (test code = 78648-5) [facility] Metabolic Panel (NA, K, CL, CO2, GLUCOSE, BUN, CREATININE, CA)2020-09-14 02:48:49 Test Item Value Reference Range Interpretation Comments NA (test code = 135 mmol/L 135-145 9785319738) K (test code = 3.6 mmol/L 3.5-5.0 9659287764) CL (test code = 101 mmol/L 98-108 1840442010) CO2 TOTAL (test code = 23 mmol/L 23-31 0774171172) AGAP (test code = 2-16 4519288244) BUN (test code = 10 mg/dL 7-23 8787614979) GLUCOSE (test code = 296 mg/dL 70-110 H 8485742505) CREATININE (test code = 0.62 mg/dL 0.50-1.04 8769136466) CALCIUM (test code = 9.7 mg/dL 8.6-10.6 5828330057) eGFR Calculation mL/min/1.73m2 (Non-) (test code = 4512931094) eGFR Calculation mL/min/1.73m2 () (test code = 4763960759) MADISYN (test code = MADISYN) Association of [...] tests). Lab Interpretation Abnormal (test code = 60624-3) [facility] CenterHepatic Function Panel (ALB, T.PRO, BILI T, BU/BC, ALT, AST, ALK PHOS)2020-09-14 02:48:48 Test Item Value Reference Range Interpretation Comments TOTAL BILI (test code = 7488977465) 0.4 mg/dL 0.1-1.1 BILI UNCON (test code = 9099021226) 0.4 mg/dL 0.1-1.1 BILI CONJ (test code = 7901064001) 0.0 mg/dL 0.0-0.3 T PROTEIN (test code = 1854525171) 7.7 g/dL 6.3-8.2 ALBUMIN (test code = 2605043997) 5.0 g/dL 3.5-5.0 ALK PHOS (test code = 7945485026) 78 U/L 34-122 ALTv (test code = 1742-6) 19 U/L 5-35 AST(SGOT) (test code = 9877232257) 25 U/L 13-40 Lab Interpretation (test code = Normal 24564-0) [facility] CenterLipase [id number] 02:48:48 Test Item Value Reference Range Interpretation Comments LIPASE (test code = 0101465691) 38 U/L 0-220 Lab Interpretation (test code = Normal 06003-0) [facility] CenterCOVID-19 (ID NOW RAPID TESTING)2020-09-14 02:36:29 Test Item Value Reference Range Interpretation Comments SARS-CoV-2 Rapid ID NOW Positive Not Detected A (test code = 58461-9) MADISYN (test code = MADISYN) ID NOW COVID-19 Assay is an isothermal nucleic acid amplification test intended for the qualitative detection of nucleic acid from SARS-CoV-2 viral RNA in nasopharyngeal (PARTNER MA[employer]ANT) specimens. It is used under Emergency Use [...] indicated. Lab Interpretation Abnormal (test code = 81821-0) General acute hospital with Ujymxzpeevzq6539-63-01 02:30:06 Test Item Value Reference Range Interpretation Comments WBC (test code = See_Comment [Automated message] 6790-2) The system [employer] generated this result transmitted ref erence range: 4.30 - 1 1.10 10*3/?L. The re ference range was not u sed to interpret this result as normal/abnor mal. RBC (test code = See_Comment [Automated message] 789-8) The system [employer] generated this result transmitted ref erence range: [...] RDW-SD (test code 41.8 fL 39.0-49.9 = 98570-4) RDW-CV (test code 12.8 % 12.0-15.5 = 788-0) PLT (test code = See_Comment [Automated message] 777-3) The system whic h generated this result transmitted ref erence range: 166 - 35 8 10*3/?L. The re ference range was not u sed to interpret this result as normal/abnor mal. MPV (test code = 11.2 fL 9.5-12.9 24260-2) NRBC/100 WBC (test See_Comment [Automat ed message] code = 6056844277) The syste m which generated this result transmitted ref erence range: 0.0 - 10 .0 /100 WBCs. The refer ence range was not u sed to interpret this result as normal/abnor mal. NRBC x10^3 (test <0.01 See_Comment [Automated message] code = 5838350912) The syste m which generated this result transmitted ref erence range: 10*3/?L. The reference range was not used to interpr et this result as normal/abnormal . GRAN MAT (NEUT) % 54.0 % (test code = 770-8) IMM GRAN % (test 0.70 % code = 8410901595) LYMPH % (test code 36.2 % = 736-9) MONO % (test code 6.0 % = 5905-5) EOS % (test code = 2.8 % 713-8) BASO % (test code 0.3 % = 706-2) GRAN MAT 3.13 10*3/uL 1.88-7.09 x10^3(ANC) (test code = 3544232893) IMM GRAN x10^3 0.04 10*3/uL 0.00-0.06 (test code = 3249071476) LYMPH x10^3 (test 2.10 10*3/uL 1.32-3.29 code = 731-0) MONO x10^3 (test 0.35 10*3/uL 0.33-0.92 code = 742-7) EOS x10^3 (test 0.16 10*3/uL 0.03-0.39 code = 711-2) BASO x10^3 (test <0.03 0.01-0.07 code = 704-7) General acute hospital WITH [id number] 01:35:00 Test Item Value Reference Range Interpretation [...] RDW-SD (test code = 40.8 fL 39-49.9 35485-4) RDW-CV (test code = 12.5 % 12-15.5 788-0) PLT (test code = See_Comment [Automated 777-3) message] The sy stem which generated this result transmitted reference range : 166 - 358 10*3/ ?L. The reference r aiden was not used to interpret this result as normal/abnormal . MPV (test code = 11.0 fL 9.5-12.9 49302-0) IPF % (test code = 5.7 % 1.3-7.7 Platelet count 7727046886) measured by fluorescence method. NRBC/100 WBC (test See_Comment [Automat ed code = 2991780331) message] The system which generated this result transmitted reference range : 0.0 - 10.0 /100 WBCs. The refer ence range was not u sed to interpret th is result as normal/abnormal . NRBC x10^3 (test code <0.01 See_Comment [Auto mated = 0114384626) message] The s ystem which generated this result transmitted reference range : 10*3/?L. The reference range was not used to interpret this result as normal/abnormal . GRAN MAT (NEUT) % 60.2 % (test code = 770-8) IMM GRAN % (test code 1.60 % = 1575146165) LYMPH % (test code = 29.4 % 736-9) MONO % (test code = 6.2 % 5905-5) EOS % (test code = 2.3 % 713-8) BASO % (test code = 0.3 % 706-2) GRAN MAT x10^3(ANC) 5.31 10*3/uL 1.88-7.09 (test code = 0801022357) IMM GRAN x10^3 (test 0.14 10*3/uL 0-0.06 H code = 8736247647) LYMPH x10^3 (test code 2.59 10*3/uL 1.32-3.29 = 731-0) MONO x10^3 (test code 0.55 10*3/uL 0.33-0.92 = 742-7) EOS x10^3 (test code = 0.20 10*3/uL 0.03-0.39 711-2) BASO x10^3 (test code 0.03 10*3/uL 0.01-0.07 = 704-7) Lab Interpretation Abnormal (test code = 45804-7) [facility] CenterAD,CLC OR [facility] ONLY - INFLUENZA A & B DIRECT [id number] 01:26:00 Test Item Value Reference Range Interpretation Comments Influenza A (test code = 93413-7) Negative Negative Influenza B (test code = 74034-1) Negative Negative Lab Interpretation (test code = Normal 72325-2) [facility] Metabolic Panel (NA, K, CL, CO2, GLUCOSE, BUN, CREATININE, CA)2019-07-28 01:21:00 Test Item Value Reference Range Interpretation Comments NA (test code = 137 mmol/L 135-145 4659949845) K (test code = 3.8 mmol/L 3.5-5 4351467409) CL (test code = 100 mmol/L 98-108 2665725785) CO2 TOTAL (test code = 24 mmol/L 23-31 1767161602) AGAP (test code = 2-16 5792264805) BUN (test code = 13 mg/dL 7-23 4526475925) GLUCOSE (test code = 245 mg/dL 70-110 H 3877375888) CREATININE (test code = 0.49 mg/dL 0.5-1.04 L 6905103303) CALCIUM (test code = 9.8 mg/dL 8.6-10.6 5110409750) eGFR Calculation mL/min/1.73m2 (Non-) (test code = 6149248176) eGFR Calculation mL/min/1.73m2 () (test code = 4087833727) MADISYN (test code = MADISYN) Association of [...] tests). Lab Interpretation Abnormal (test code = 19300-3) [facility] CenterHepatic Function Panel (ALB, T.PRO, BILI T, BU/BC, ALT, AST, ALK PHOS)2019-07-28 01:21:00 Test Item Value Reference Range Interpretation Comments TOTAL BILI (test code = 7811970259) 0.3 mg/dL 0.1-1.1 BILI UNCON (test code = 0452845773) 0.1 mg/dL 0.1-1.1 BILI CONJ (test code = 2721960797) 0.0 mg/dL 0-0.3 T PROTEIN (test code = 0954247970) 8.2 g/dL 6.3-8.2 ALBUMIN (test code = 6815908815) 5.0 g/dL 3.5-5 ALK PHOS (test code = 3401004251) 121 U/L 34-122 ALTv (test code = 1742-6) 33 U/L 5-35 AST(SGOT) (test code = 3136506537) 30 U/L 13-40 Lab Interpretation (test code = Normal 52489-4) [facility] CenterRAPID STREP SCREEN FOR GROUP [id number] 01:19:00 Test Item Value Reference Range Interpretation Comments Streptococcus pyogenes (group A) Negative Negative antigen (test code = 31792-7) Lab Interpretation (test code = Normal 82917-3) [facility] CenterXR CHEST 2 [id number] 00:53:20Impression: No acute cardiopulmonary changes. Small sized [...] reviewed this study and agree withthe above report.[facility] (NA, K, CL, CO2, GLUCOSE, BUN, CREATININE, CA)2019-03-11 20:52:00 Test Item Value Reference Range Interpretation Comments NA (test code = 141 mmol/L 135-145 0510648044) K (test code = 3.6 mmol/L 3.5-5 4458900598) CL (test code = 104 mmol/L 98-108 4337780359) CO2 TOTAL (test code = 24 mmol/L 23-31 7842834523) AGAP (test code = 2-16 0334990604) BUN (test code = 19 mg/dL 7-23 6793272087) GLUCOSE (test code = 161 mg/dL 70-110 H 7740841428) CREATININE (test code = 0.51 mg/dL 0.5-1.04 1674326144) CALCIUM (test code = 9.4 mg/dL 8.6-10.6 7755233083) eGFR Calculation mL/min/1.73m2 (Non-) (test code = 0607235889) eGFR Calculation mL/min/1.73m2 () (test code = 5436725168) MADISYN (test code = MADISYN) Association of [...] tests). Lab Interpretation Abnormal (test code = 53355-5) [facility] CenterHepatic Function Panel (ALB, T.PRO, BILI T, BU/BC, ALT, AST, ALK PHOS)2019-03-11 20:52:00 Test Item Value Reference Range Interpretation Comments TOTAL BILI (test code = 9153780465) 0.6 mg/dL 0.1-1.1 BILI UNCON (test code = 7082797172) 0.5 mg/dL 0.1-1.1 BILI CONJ (test code = 8577548595) 0.0 mg/dL 0-0.3 T PROTEIN (test code = 9633325840) 7.7 g/dL 6.3-8.2 ALBUMIN (test code = 4834666383) 4.9 g/dL 3.5-5 ALK PHOS (test code = 6529628358) 61 U/L 34-122 ALT(SGPT) (test code = 1793014559) 26 U/L 9-51 AST(SGOT) (test code = 3654351121) 28 U/L 13-40 Lab Interpretation (test code = Normal 33535-7) [facility] CenterLipase [id number] 20:52:00 Test Item Value Reference Range Interpretation Comments LIPASE (test code = 2246981060) 22 U/L 0-220 Lab Interpretation (test code = Normal 50815-1) [facility] CenteraPTT2019-09-05 20:40:00 Test Item Value Reference Range Interpretation Comments APTT Patient (test See_Comment L [Automat ed code = 3173-2) message] The system which generated this result transmitted reference range : 23 - 38 Seconds . The reference range was not used to interpr et this result as normal/abnormal . MADISYN (test code = MADISYN) The [facility] patient population mean normal value for aPTT is 30 seconds. Lab Interpretation Abnormal (test code = 24944-3) [facility] CenterProthrombin Time (PT) / [id number] 20:38:00 Test Item Value Reference Range Interpretation [...] tions. Lab Interpretation (test Normal code = 77748-1) General acute hospital WITH [id number] 20:33:00 Test Item Value Reference Range Interpretation Comments WBC (test code = See_Comment [Automated 1590-2) message] The sy stem which generated this [...] RDW-SD (test code = 44.3 fL 39-49.9 70923-0) RDW-CV (test code = 12.9 % 12-15.5 788-0) PLT (test code = See_Comment [Automated 777-3) message] The sy stem which generated this result transmitted reference range : 166 - 358 10*3/ ?L. The reference r aiden was not used to interpret this result as normal/abnormal . MPV (test code = 10.9 fL 9.5-12.9 61916-9) NRBC/100 WBC (test See_Comment [Automat ed code = 6335872249) message] The system which generated this result transmitted reference range : 0.0 - 10.0 /100 WBCs. The refer ence range was not u sed to interpret th is result as normal/abnormal . NRBC x10^3 (test code <0.01 See_Comment [Auto mated = 1732195774) message] The s ystem which generated this result transmitted reference range : 10*3/?L. The reference range was not used to interpret this result as normal/abnormal . GRAN MAT (NEUT) % 86.3 % (test code = 770-8) IMM GRAN % (test code 0.50 % = 1280039909) LYMPH % (test code = 8.8 % 736-9) MONO % (test code = 4.0 % 5905-5) EOS % (test code = 0.2 % 713-8) BASO % (test code = 0.2 % 706-2) GRAN MAT x10^3(ANC) 8.24 10*3/uL 1.88-7.09 H (test code = 1541047326) IMM GRAN x10^3 (test 0.05 10*3/uL 0-0.06 code = 7928092061) LYMPH x10^3 (test code 0.84 10*3/uL 1.32-3.29 L = 731-0) MONO x10^3 (test code 0.38 10*3/uL 0.33-0.92 = 742-7) EOS x10^3 (test code = <0.03 0.03-0.39 L 711-2) BASO x10^3 (test code <0.03 0.01-0.07 = 704-7) Lab Interpretation Abnormal (test code = 83611-7) [facility]"
[2023-01-29 22:40] LABS: Absolute Lymphocytes (CBC) 2.6 K/uL (0.7-4.9); Hematocrit 29.5 % (36.0-45.0); Lymphocytes % 37.1 % (15.3-44.8); MPV 8.2 fL (7.6-11.3); RBC Red Blood Cell Count 3.27 M/uL (3.86-4.86)
[2023-01-29 22:58] LABS: Protime INR 0.92
[2023-01-29 22:59] LABS: Magnesium 2.1 mg/dL (1.6-2.4); Potassium 3.5 mEq/L (3.5-5.1); Troponin High Sensitivity 3.7 pg/mL (<58.9)
[2023-01-29] MEDS ORDERED: ONDANSETRON 4 MG/2 ML VIAL ONE (23:10)
[2023-01-29] MEDS ORDERED: MORPHINE 2 MG/ML SYR ONE (23:10)
[2023-01-30] MEDS ORDERED: MORPHINE 2 MG/ML SYR ONE (00:11)
--- NOTE | 2023-01-30 03:20 | EDPHYS ---
Physician Documentation [facility] Name: Dolores Pérez Age: 62 yrs Sex: Female : 1960 Arrival Date: 01/29/2023 Time: 22:06 Bed 8 Private MD: ED Physician Helio Laura HPI: 01/29 22:20 This 62 yrs old Female presents to ER via Ambulatory with complaints of Chest Pain. cp 22:20 The patient or guardian reports chest pain that is located primarily in the anterior cp chest wall, bilaterally. 22:20 Onset: today, about 1700. Associated signs and symptoms: Pertinent positives: cough, cp lower extremity pain, Pertinent negatives: abdominal pain, diaphoresis, shortness of breath, vomiting. The chest pain is described as aching. Modifying factors: the symptoms are aggravated by cough, deep breath. Severity of pain: in the emergency department the pain is unchanged despite home interventions. Historical: - Allergies: 22:24 NSAIDS; vc1 22:24 peanuts; vc1 22:24 Prednisone; vc1 22:24 sesame seed; vc1 22:24 Sulfa (Sulfonamide Antibiotics); vc1 - PMHx: 22:24 Anxiety; Asthma; COPD; depressive disorder; diabetes mellitus; High Cholesterol; vc1 Hypertension; Hypothyroidism; Transient cerebral ischemia; - PSHx: 22:24 None; vc1 - Immunization history:: Client reports receiving the 2nd dose of the Covid vaccine, Pneumococcal vaccine is not up to date, Flu vaccine is up to date. - Social history:: Smoking status: Patient denies any tobacco usage or history of. ROS: 22:23 Constitutional: Negative for body aches, chills, fever, poor PO intake. cp 22:23 Cardiovascular: Positive for chest pain, Negative for edema, palpitations. cp 22:23 Respiratory: Positive for cough, Negative for shortness of breath, wheezing. 22:23 Abdomen/GI: Negative for abdominal pain, nausea, vomiting, and diarrhea. 22:23 Eyes: Negative for injury, pain, redness, and discharge. cp 22:23 ENT: Negative for drainage from ear(s), ear pain, sore throat, difficulty swallowing, cp difficulty handling secretions. 22:23 Back: Negative for pain at rest, pain with movement. 22:23 Neuro: Negative for altered mental status, dizziness, headache, numbness, tingling, weakness. 22:23 All other systems are negative. Exam: 22:22 ECG was reviewed by the Attending Physician. cp 22:25 Constitutional: The patient appears in no acute distress, alert, awake, cp non-diaphoretic, non-toxic, well developed, well nourished. 22:25 Head/Face: Normocephalic, atraumatic. cp 22:25 Eyes: Periorbital structures: appear normal, Conjunctiva: normal, no exudate, no injection, Sclera: no appreciated abnormality, Lids and lashes: appear normal, bilaterally. 22:25 ENT: External ear(s): are unremarkable, Nose: is normal, Mouth: Lips: moist, Oral mucosa: pink and intact, moist, Posterior pharynx: is normal, airway is patent, no erythema, no exudate. 22:25 Neck: ROM/movement: is normal, is supple, without pain, no range of motions limitations. 22:25 Chest/axilla: Inspection: normal. 22:25 Cardiovascular: Rate: normal, Rhythm: regular, Edema: is not appreciated, JVD: is not appreciated. 22:25 Respiratory: the patient does not display signs of respiratory distress, Respirations: normal, no use of accessory muscles, no retractions, labored breathing, is not present, Breath sounds: are clear throughout, no decreased breath sounds, no stridor, no wheezing. 22:25 Abdomen/GI: Inspection: abdomen appears normal, Palpation: abdomen is soft and non-tender, in all quadrants. 22:25 Back: CVA tenderness, is absent, vertebral tenderness, is not appreciated. 22:25 Musculoskeletal/extremity: Extremities: grossly normal except: noted in the right lower leg: pain, swelling, tenderness. 22:25 Skin: cellulitis, is not appreciated, no rash present. 22:25 Neuro: Orientation: to person, place \T\ time. Mentation: is normal, Motor: moves all fours, strength is normal. Vital Signs: 22:21 BP 137 / 73; Pulse 72; Resp 17; Temp 97.8; Pulse Ox 100% ; Weight 58.97 kg; Height 5 vc1 ft. 7 in. ; Pain 7/10; 23:07 BP 135 / 63; Pulse 65; Resp 21 S; Pulse Ox 94% on R/A; as6 23:30 BP 135 / 63; Pulse 65; Resp 16; Pulse Ox 98% on R/A; vc1 01/30 00:30 BP 129 / 52; Pulse 67; Resp 17; Pulse Ox 96% on R/A; vc1 01:29 BP 126 / 64; Pulse 62; Resp 17; Pulse Ox 96% on R/A; vc1 01:30 BP 125 / 67; Pulse 61; Resp 17; Pulse Ox 96% ; vc1 02:30 BP 116 / 64; Pulse 60; Resp 16; Pulse Ox 96% on R/A; vc1 03:29 BP 120 / 67; Pulse 61; Resp 17; Pulse Ox 98% on R/A; kl 01/29 22:21 Body Mass Index 20.36 (58.97 kg, 170.18 cm) vc1 01/29 22:21 Pain Scale: Adult vc1 MDM: 01/29 22:09 Patient medically screened. 23:00 Differential diagnosis: abnormal EKG, acute myocardial infarction, acute pericarditis, pancreatitis, pericarditis, pleurisy, pneumonia, pneumothorax, pulmonary embolus, stable angina, thoracic aortic disection, unstable angina. 01/30 03:12 Data reviewed: vital signs, nurses notes, lab test result(s), EKG, radiologic studies, sp4 CT scan. 03:12 Consideration of Admission/Observation Escalation of care including admission/observation considered. 03:12 I considered the following discharge prescriptions or medication management in the emergency department Medications were administered in the Emergency Department. See MAR. Care significantly affected by the following chronic conditions: Diabetes, Hypertension, Chronic Obstructive Pulmonary Disease. Counseling: I had a detailed discussion with the patient and/or guardian regarding: the historical points, exam findings, and any diagnostic results supporting the discharge/admit diagnosis, lab results, radiology results, to return to the emergency department if symptoms worsen or persist or if there are any questions or concerns that arise at home. Response to treatment: the patient's symptoms have markedly improved after treatment, and as a result, I will discharge patient. Special discussion: Based on the patient's history, exam, and Dx evaluation, there is no indication for emergent intervention or inpatient Tx. It is understood by the patient/guardian that if the Sx's persist or worsen they need to return immediately for re-evaluation. 01/29 22:14 Order name: Basic Metabolic Panel; Complete Time: 23:24 01/29 23:25 Interpretation: Normal except: NA 131; GLUC 108; GFR 83. 01/29 22:14 Order name: CBC with Diff; Complete Time: 22:52 01/29 22:53 Interpretation: Normal except: RBC 3.27; HGB 10.2; HCT 29.5; EOSINOPHIL % 5.4. 01/29 22:14 Order name: Magnesium; Complete Time: 23:24 cp 01/29 22:14 Order name: NT PRO-BNP; Complete Time: 23:24 cp 01/29 22:14 Order name: PT-INR; Complete Time: 23:24 cp 01/29 22:14 Order name: Troponin HS; Complete Time: 23:24 01/29 23:25 Interpretation: Reviewed. 01/29 22:56 Order name: LAB Add On 01/29 22:58 Order name: D-Dimer; Complete Time: 23:24 EDMS 01/30 01:15 Order name: Troponin HS; Complete Time: 02:49 01/30 02:49 Interpretation: Reviewed. 01/29 22:14 Order name: XRAY Chest (1 view) 01/29 22:54 Order name: US Extremity Venous Unilateral Ltd 01/29 22:14 Order name: EKG; Complete Time: 22:15 01/29 22:14 Order name: Cardiac monitoring; Complete Time: 22:23 01/29 22:14 Order name: EKG - Nurse/Tech; Complete Time: 22:23 01/29 22:14 Order name: IV Saline Lock; Complete Time: 22:34 01/29 22:14 Order name: Labs collected and sent; Complete Time: 22:34 01/29 22:14 Order name: O2 Per Protocol; Complete Time: 22:34 01/29 22:14 Order name: O2 Sat Monitoring; Complete Time: 22:34 01/29 22:44 Order name: Misc. Order: RECOLLECT BLUE TOP; Complete Time: 22:49 rv1 EC/26 22:22 Rate is 70 beats/min. Rhythm is regular. IL interval is normal. QRS interval is normal. cp QT interval is normal. T waves are Inverted in leads aVL, aVR. Interpreted by me. Reviewed by me. Administered Medications: 23:06 Drug: Ondansetron IVP 4 mg Route: IVP; Site: right forearm; as6 01/30 00:13 Follow up: Response: No adverse reaction; Marked relief of symptoms vc1 01/29 23:07 Drug: morphine IVP or IV 2 mg Route: IVP; Infused Over: 4 mins; Site: right forearm; as6 01/30 00:00 Follow up: Response: No adverse reaction; Pain is unchanged, physician notified vc1 00:12 Drug: morphine IVP or IV 2 mg Route: IVP; Infused Over: 4 mins; Site: right hand; vc1 03:06 Follow up: Response: No adverse reaction; No change in condition vc1 Disposition: :23 Co-signature as Attending Physician, Helio Laura MD I agree with the assessment sp4 and plan of care. I reviewed the patient's care provided by the Advanced Practice Provider and agree with the diagnosis and treatment plan. Disposition Summary: 01/30/23 03:19 Discharge Ordered Location: Home cp Problem: new cp Symptoms: have improved cp Condition: Stable cp Diagnosis - Chest pain, unspecified cp Followup: cp - With: Private Physician - When: 1 - 2 days - Reason: Recheck today's complaints Discharge Instructions: - Discharge Summary Sheet cp - Nonspecific Chest Pain, Adult cp Forms: - Medication Reconciliation Form cp - Thank You Letter cp - Antibiotic Education cp - Prescription Opioid Use cp - Patient Portal Instructions cp Signatures: Dispatcher [employer] EDMS Feng Poep PA PA cp Luis Felipe Ro RN RN as6 Spring Ramirez RN RN vc1 Ashtyn Melendez 1 Helio Laura MD MD sp4 Corrections: (The following items were deleted from the chart) 01/29 22:58 22:57 D-DIMER+[id number].LAB.BRZ ordered. EDMS EDMS
--- NOTE | 2023-01-30 03:20 | ER ---
Nurse's Notes [facility] Name: Dolores Pérez Age: 62 yrs Sex: Female : 1960 Arrival Date: 01/29/2023 Time: 22:06 Bed 8 Private MD: Diagnosis: Chest pain, unspecified Presentation: 01/29 22:21 Chief complaint: Patient states: I've been sick for almost 3 weeks with a cough and vc1 pneumonia. Today around 5 pm I started having chest pain all the way across. Coronavirus screen: Vaccine status: Patient reports receiving the 2nd dose of the covid vaccine. [place] Client denies travel out of the [place] in the last 14 days. cough unrelated to allergies, muscle pain, Client presents with at least one sign or symptom that may indicate coronavirus-19. Ebola Screen: Patient negative for fever greater than or equal to 101.5 degrees Fahrenheit, and additional compatible Ebola Virus Disease symptoms Patient denies exposure to infectious person. Patient denies travel to an Ebola-affected area in the 21 days before illness onset. No symptoms or risks identified at this time. Initial Sepsis Screen: Does the patient meet any 2 criteria? No. Patient's initial sepsis screen is negative. Does the patient have a suspected source of infection? No. Patient's initial sepsis screen is negative. Risk Assessment: Do you want to hurt yourself or someone else? Patient reports no desire to harm self or others. Onset of symptoms was January 29, 2023 at 17:00. 22:21 Method Of Arrival: Ambulatory vc1 22:21 Acuity: AARON 3 vc1 Triage Assessment: 22:25 General: Appears in no apparent distress. uncomfortable, ill, slender, Behavior is vc1 cooperative. Pain: Complains of pain in anterior aspect of right upper chest and anterior aspect of left upper chest Pain does not radiate. Pain currently is 7 out of 10 on a pain scale. Aggravated by deep breaths Also complains of cough. EENT: No deficits noted. No signs and/or symptoms were reported regarding the EENT system. Neuro: Level of Consciousness is awake, alert, obeys commands, Oriented to person, place, time, situation, Appropriate for age. Cardiovascular: Chest pain is described as mild, quality is pressure. Respiratory: Reports cough that is pain with cough Airway is patent Respiratory effort is even, unlabored, Respiratory pattern is regular, symmetrical, the patient has mild shortness of breath. GI: No deficits noted. No signs and/or symptoms were reported involving the gastrointestinal system. : No deficits noted. No signs and/or symptoms were reported regarding the genitourinary system. Derm: No deficits noted. No signs and/or symptoms reported regarding the dermatologic system. Musculoskeletal: No deficits noted. No signs and/or symptoms reported regarding the musculoskeletal system. Historical: - Allergies: 22:24 NSAIDS; vc1 22:24 peanuts; vc1 22:24 Prednisone; vc1 22:24 sesame seed; vc1 22:24 Sulfa (Sulfonamide Antibiotics); vc1 - PMHx: 22:24 Anxiety; Asthma; COPD; depressive disorder; diabetes mellitus; High Cholesterol; vc1 Hypertension; Hypothyroidism; Transient cerebral ischemia; - PSHx: 22:24 None; vc1 - Immunization history:: Client reports receiving the 2nd dose of the Covid vaccine, Pneumococcal vaccine is not up to date, Flu vaccine is up to date. - Social history:: Smoking status: Patient denies any tobacco usage or history of. Screenin:28 [facility] ED Fall Risk Assessment (Adult) History of falling in the last 3 months, vc1 including since admission No falls in past 3 months (0 pts) Confusion or Disorientation No (0 pts) Intoxicated or Sedated No (0 pts) Impaired Gait No (0 pts) Mobility Assist Device Used No (0 pt) Altered Elimination No (0 pt) Score/Fall Risk Level 0 - 2 = Low Risk Oriented to surroundings, Maintained a safe environment, Educated pt \T\ family on fall prevention, incl call for assistance when getting out of bed. Abuse screen: Denies threats or abuse. Nutritional screening: No deficits noted. Tuberculosis screening: No symptoms or risk factors identified. Assessment: 22:36 General: see triage assessment. as6 23:30 Reassessment: No changes from previously documented assessment. Patient and/or family vc1 updated on plan of care and expected duration. Pain level reassessed. Patient is alert, oriented x 3, equal unlabored respirations, skin warm/dry/pink. Pain: Complains of pain in anterior aspect of left upper chest and anterior aspect of right upper chest Pain does not radiate. Pain began around 5 pm - 5:30 pm. 01/30 00:30 Reassessment: No changes from previously documented assessment. Patient and/or family vc1 updated on plan of care and expected duration. Pain level reassessed. 01:28 Reassessment: No changes from previously documented assessment. Patient and/or family vc1 updated on plan of care and expected duration. Pain level reassessed. Patient is alert, oriented x 3, equal unlabored respirations, skin warm/dry/pink. 02:00 Reassessment: No changes from previously documented assessment. Patient and/or family vc1 updated on plan of care and expected duration. Pain level reassessed. Patient is alert, oriented x 3, equal unlabored respirations, skin warm/dry/pink. 03:00 Reassessment: No changes from previously documented assessment. Patient and/or family vc1 updated on plan of care and expected duration. Pain level reassessed. Patient is alert, oriented x 3, equal unlabored respirations, skin warm/dry/pink. Vital Signs: 01/29 22:21 BP 137 / 73; Pulse 72; Resp 17; Temp 97.8; Pulse Ox 100% ; Weight 58.97 kg; Height 5 vc1 ft. 7 in. ; Pain 7/10; 23:07 BP 135 / 63; Pulse 65; Resp 21 S; Pulse Ox 94% on R/A; as6 23:30 BP 135 / 63; Pulse 65; Resp 16; Pulse Ox 98% on R/A; vc1 01/30 00:30 BP 129 / 52; Pulse 67; Resp 17; Pulse Ox 96% on R/A; vc1 01:29 BP 126 / 64; Pulse 62; Resp 17; Pulse Ox 96% on R/A; vc1 01:30 BP 125 / 67; Pulse 61; Resp 17; Pulse Ox 96% ; vc1 02:30 BP 116 / 64; Pulse 60; Resp 16; Pulse Ox 96% on R/A; vc1 03:29 BP 120 / 67; Pulse 61; Resp 17; Pulse Ox 98% on R/A; kl 01/29 22:21 Body Mass Index 20.36 (58.97 kg, 170.18 cm) vc1 01/29 22:21 Pain Scale: Adult vc1 ED Course: 01/29 22:08 Patient arrived in ED. jj6 22:09 Feng Pope PA is PHCP. cp 22:09 Helio Laura MD is Attending Physician. cp 22:24 Triage completed. vc1 22:25 Arm band placed on right wrist. vc1 22:25 Patient has correct armband on for positive identification. Placed in gown. Bed in low vc1 position. Call light in reach. Side rails up X2. Client placed on continuous cardiac and pulse oximetry monitoring. NIBP monitoring applied. 22:25 EKG completed in triage. Results shown to MD. vc1 22:37 Inserted saline lock: 20 gauge in right hand, using aseptic technique. jb5 22:40 XRAY Chest (1 view) In Process Unspecified. EDMS 22:49 Basic Metabolic Panel Sent. rv1 22:49 Magnesium Sent. rv1 22:49 NT PRO-BNP Sent. rv1 22:49 PT-INR Sent. rv1 22:49 Troponin HS Sent. rv1 22:56 Luis Felipe Ro, RN is Primary Nurse. as6 23:27 US Extremity Venous Unilateral Ltd In Process Unspecified. EDMS 23:52 CT Chest For PE Angio In Process Unspecified. EDMS 01/30 01:26 Troponin HS Sent. vc1 03:30 No provider procedures requiring assistance completed. IV discontinued, intact, kl bleeding controlled, No redness/swelling at site. Pressure dressing applied. Patient maintains SpO2 saturation greater than 95% on room air. Administered Medications: 01/29 23:06 Drug: Ondansetron IVP 4 mg Route: IVP; Site: right forearm; as6 01/30 00:13 Follow up: Response: No adverse reaction; Marked relief of symptoms vc1 01/29 23:07 Drug: morphine IVP or IV 2 mg Route: IVP; Infused Over: 4 mins; Site: right forearm; as6 01/30 00:00 Follow up: Response: No adverse reaction; Pain is unchanged, physician notified vc1 00:12 Drug: morphine IVP or IV 2 mg Route: IVP; Infused Over: 4 mins; Site: right hand; vc1 03:06 Follow up: Response: No adverse reaction; No change in condition vc1 Medication: 01/29 23:49 VIS not applicable for this client. vc1 Outcome: 01/30 03:19 Discharge ordered by . cp 03:30 Discharged to home ambulatory. kl 03:30 Condition: stable 03:30 Discharge instructions given to patient, Instructed on discharge instructions, follow up and referral plans. Demonstrated understanding of instructions, follow-up care. 03:30 Patient left the ED. rylan Signatures: Dispatcher [employer] Cielo Lopez RN RN Feng Milton PA PA cp Broussard, Jennifer jb5 Minnie Alonzoj6 Luis Felipe Ro RN RN as6 Spring Ramirez RN RN 1 Ashtyn Melendez [facility]
[2023-01-30 03:35] VITALS: TEMP 97.8
[2023-01-30 03:47] VITALS: BP 120/67; O2SAT 98
--- NOTE | 2023-01-30 10:56 | RAD REPORT ---
EXAM DESCRIPTION: XR Chest, 1 View CLINICAL HISTORY: The patient is 62 years old and is Female; CHEST PAIN TECHNIQUE: Frontal view of the chest. COMPARISON: XR Chest dated January 21 2023 FINDINGS: LUNGS: Unremarkable. No consolidation. PLEURAL SPACE: Unremarkable. No pneumothorax. HEART: Unremarkable. No cardiomegaly. MEDIASTINUM: Unremarkable. BONES/JOINTS: Unremarkable. UPPER ABDOMEN: Unremarkable as visualized. IMPRESSION: No acute cardiopulmonary process. Electronically signed by: Adelia Altamirano MD 01/29/2023 11:47 PM CDT Due to temporary technical issues with the PACS/Fluency reporting system, reports are being signed by the in house radiologists without review as a courtesy to insure prompt reporting. The interpreting radiologist is fully responsible for the content of the report.
--- NOTE | 2023-01-30 10:58 | RAD REPORT ---
EXAM DESCRIPTION: US Duplex Right Lower Extremity Veins CLINICAL HISTORY: The patient is 62 years old and is Female; PAIN TECHNIQUE: Real-time duplex ultrasound scan of the right lower extremity veins integrating B-mode tw o-dimensional vascular structure, Doppler spectral analysis, color flow Doppler imaging and compressi on. COMPARISON: No relevant prior studies available. FINDINGS: DEEP VEINS: Unremarkable. No DVT in the visualized common femoral, femoral, proximal d eep femoral or popliteal veins. The veins demonstrate normal color flow, are normally compressible, with normal phasic flow and/or augmentation response. SUPERFICIAL VEINS: Unremarkable. No thrombus in the visualized great saphenous vein. SOFT TISSUES: No acute findings. No popliteal cyst. IMPRESSION: Normal right lower extremity duplex venous ultrasound. Electronically signed by: Adelia Altamirano MD 01/29/2023 11:48 PM CDT Due to temporary technical issues with the PACS/Fluency reporting system, reports are being signed by the in house radiologists without review as a courtesy to insure prompt reporting. The interpreting radiologist is fully responsible for the content of the report.
--- NOTE | 2023-01-30 11:09 | RAD REPORT ---
EXAM DESCRIPTION: CT Angiography Chest With Intravenous Contrast CLINICAL HISTORY: The patient is 62 years old and is Female; chest pain, cough, pneumonia TECHNIQUE: Axial computed tomographic angiography images of the chest with intravenous contrast. S agittal and coronal reformatted images were created and reviewed. This CT exam was performed using one or more of the following dose reduction techniques: automated exposure control, adjustment of t he mA and/or kV according to patient size, and/or use of iterative reconstruction technique. MIP reconstructed images were created and reviewed. COMPARISON: No relevant prior studies available. FINDINGS: PULMONARY ARTERIES: Unremarkable. No pulmonary embolism. AORTA: No acute findings. No thoracic aortic aneurysm. LUNGS: Unremarkable. No mass. No consolidation. PLEURAL SPACE: Unremarkable. No significant effusion. No pneumothorax. HEART: Unremarkable. No cardiomegaly. No significant pericardial effusion. No evidence of R V dysfunction. BONES/JOINTS: No acute fracture. No dislocation. SOFT TISSUES: Unremarkable. LYMPH NODES: Unremarkable. No enlarged lymph nodes. IMPRESSION: Normal chest CTA. No pulmonary embolism. Electronically signed by: Adelia Altamirano MD 01/30/2023 2:10 AM CDT Due to temporary technical issues with the PACS/Fluency reporting system, reports are being signed by the in house radiologists without review as a courtesy to insure prompt reporting. The interpreting radiologist is fully responsible for the content of the report.
--- NOTE | 2023-01-30 13:18 | EKG ---
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
== END 2023-01-30 03:30 | disposition home or self-care (01) ==
LOC: ER 22:06
DX: R07.89 Other chest pain (principal); I10 Essential (primary) hypertension; Z88.2 Allergy status to sulfonamides; Z88.6 Allergy status to analgesic agent; Z88.8 Allergy status to other drugs, medicaments and biological substances; Z91.010 Allergy to peanuts; Z91.018 Allergy to other foods
CPT/HCPCS: 93005; 85025; 80048; 36415; 83735; 85610; 85379; 84484 ×2; 83880; 71275; 71045; 93971; 99285; Q9967; J2270 ×2; J2405

== ENCOUNTER 2023-02-11 15:24 | Emergency (ER) | payer OTHER ==
--- OUTSIDE RECORDS SUMMARY | 2023-02-11 15:31 | XMS REPORT | Continuity of Care Document ---
:1960 Author Organization [facility] t Address [address] [facility]. [address] [place] [address] Care Team Providers Name Role Phone PAULINA DUNHAM Primary Care Physician Unavailable Susan Rodriguez Attending Clinician Unknown, Attending Attending Clinician Unavailable SUSAN LEE Attending Clinician Unavailable Doctor Unassigned, [place] Attending Clinician Unavailable Only, Ang Db Test [...] Clinician Diana Berg DO Attending Clinician Shannon ECE, Mariangel Caballero Attending Clinician ALEX OCONNELL Admitting Clinician Unavailable CAMERON DALTON Admitting Clinician Unavailable DARIUS LEDESMA Admitting Clinician Unavailable JOSE ALEJANDRO CASTANO Admitting Clinician Unavailable MARCELINA CHE Admitting Clinician Unavailable Marcelina Che MD Admitting Clinician Payers Payer Name Policy Type Policy Number Effective Date Expiration Date Teodora FALK II [id number] 2016 00:00:00 Problems Condition Condition Condition Status [...] to 4-10 ity of mide adverse 00:00: [place] Antibiot reaction 00 Medica l ics) s Branch Social History Social Habit Start Date Stop Date Quantity Comments Source Exposure to 2022-08-14 2022-08-24 Not sure [facility] SARS-CoV-2 00:00:00 09:35:00 [place] Medical (event) Branch Tobacco use and 2022-08-24 2022-08-24 Smokeless tobacco Un iversity of exposure 00:00:00 00:00:00 non-user [facility] Sex Ass[birth year] At [birth year] Universit y of 00:00:00 00:00:00 [facility] Smoking Status Start Date Stop Date Source Never smoked tobacco [facility] Medications Ordered Filled Start Stop Current Ordering Indication Dosage Frequency Signature Comments Components Source Medication Medication Date Date Medication? Clinician (SIG) Name Name chiragphentracy Yes [id number] 5mL Take 5 mL Univers mine-pseudo 2-18 by mouth 4 it y of ephedrine-D 00:00: (four[place] (BROMFED 00 times Medical DM) 2-30-10 daily as Bran ch mg/5 mL needed for syrup Congestion /Allergies . benzonatate Yes [id number] 100mg Take 1 Univers 100 mg 7-03 capsule by ity of capsule 00:00: mouth 3 [place] 00 (three) Medical times Branch daily as needed for Cough. loratadine Yes [id number] 10mg Take 1 U nivers (CLARITIN) 7-03 tablet by ity of 10 mg 00:00: mouth at [place] tablet 00 bedtime as Medical needed for Branch Allergies. benzonatate Yes [id number] 100mg Take 1 Univers 100 mg 7-03 capsule by ity of capsule 00:00: mouth 3 [place] 00 (three) Medical times Branch daily as needed for Cough. loratadine 0 Yes [id number] 10mg Take 1 U nivers (CLARITIN) 7-03 tablet by ity of 10 mg 00:00: mouth at [place] tablet 00 bedtime as Medical needed for Branch Allergies. benzonatate 0 Yes [id number] 100mg Take 1 Univers 100 mg 7-03 capsule by ity of capsule 00:00: mouth 3 [place] 00 (three) Medical times Branch daily as needed for Cough. loratadine 2-0 Yes [id number] 10mg Take 1 U nivers (CLARITIN) 7-03 tablet by ity of 10 mg 00:00: mouth at [place] tablet 00 bedtime as Medical needed for Branch Allergies. benzonatate 2021-0 Yes [id number] 100mg Take 1 Univers 100 mg 7-03 capsule by ity of capsule 00:00: mouth 3 (three) Medical times Branch daily as needed for Cough. loratadine 2-0 Yes [id number] 10mg Take 1 U nivers (CLARITIN) 7-03 tablet by ity of 10 mg 00:00: mouth at [place] tablet 00 bedtime as Medical needed for Branch Allergies. benzonatate 2021-0 Yes [id number] 100mg Take 1 Univers 100 mg 7-03 capsule by ity of capsule 00:00: mouth (three) Medical times Branch daily as needed for Cough. loratadine 2021-0 Yes [id number] 10mg Take 1 U nivers (CLARITIN) 7-03 tablet by ity of 10 mg 00:00: mouth at [place] tablet 00 bedtime as Medical needed for Branch Allergies. benzonatate 2021-0 Yes [id number] 100mg Take 1 Univers 100 mg 2-01 capsule by ity of capsule 00:00: mouth (three) Medical times Branch daily as needed for Cough. benzonatate 2021-0 Yes [id number] 100mg Take 1 Univers 100 mg 2-01 capsule by ity of capsule 00:00: mouth (three) Medical times Branch daily as needed for Cough. benzonatate 2021-0 Yes [id number] 100mg Take 1 Univers 100 mg 2-01 capsule by ity of capsule 00:00: mouth (three) Medical times Branch daily as needed for Cough. benzonatate 2021-0 Yes [id number] 100mg Take 1 Univers 100 mg 2-01 capsule by ity of capsule 00:00: mouth (three) Medical times Branch daily as needed for Cough. benzonatate 2-0 Yes [id number] 100mg Take 1 Univers 100 mg 2-01 capsule by ity of capsule 00:00: mouth (three) Medical times Branch daily as needed for Cough. benzonatate 2022-0 Yes [id number] 100mg Take 1 Univers 100 mg 2-01 capsule by ity of capsule 00:00: mouth 3 [place] 00 (three) Medical times Branch daily as needed for Cough. benzonatate 0 Yes [id number] 100mg Take 1 Univers 100 mg 2-01 capsule by ity of capsule 00:00: mouth 3 [place] 00 (three) Medical times Branch daily as needed for Cough. benzonatate 0 Yes [id number] 100mg Take 1 Univers 100 mg 2-01 capsule by ity of capsule 00:00: mouth 3 [place] 00 (three) Medical times Branch daily as needed for Cough. benzonatate 0 Yes [id number] 100mg Take 1 Univers 100 mg 2-01 [...] Therapy: Other (see Comments) iopamidol 2020-07- No [id number] 120mL 120 mL, Univers (ISOVUE 08-31 12-24 Intravenou ity o f 370-500 mL) 00:15: 23:08 s, ONCE, 1 [place] injection 00 :00 dose, On Medica l 120 mL Fri Branch 06/29/21 at 1815, Routine amoxicillin 2020-07- No [id number] 1{tbl} Take 1 Univers -clavulanat 2-24 -04 [...] Indication s: acute pain ondansetron 2020-07- No [id number] 4mg Take 1 Univers 4 mg tablet 2-24 12-30 tablet by it y of 00:00: 05:59 mouth [place] 00 :00 every 8 Medical (eight) Branch hours for 5 days. atorvastati 2020-07 Yes 10mg 10 mg, Univ ers n (LIPITOR) 1-15 Oral, QHS, it y of tablet 10 03:00: First dose [place] mg 00 on [facility] 05/20/21 Branch at 2100, Until Discontinu ed, Routine atorvastati 2020-07 Yes 10mg Take 10 mg Univers n 10 mg 1-14 by mouth ity of tablet 17:23: at [place] bedtime. Medical Branch spironolact 2020-07 Yes 25mg [...] by mouth ity of tablet 17:23: at [place] bedtime. Medical Branch spironolact 2020-07 Yes 25mg [...] by ity of (METFORMIN 17:23: mouth at [place] as ORAL) bedtime. Medical Branch atorvastati 2020-07 [...] 40 mg 00 First dose Medical on [facility] 05/20/21 at 0900, Until Discontinu ed, Routine clopidogreL 2020-07 Yes 75mg 75 mg, Univ ers (PLAVIX) 1-14 Oral, QAM, ity o f tablet 75 15:00: First dose [place] mg 00 on [facility] 05/20/21 Branch at 0900, Until Discontinu ed, Routine ALPRAZolam 2020-07 Yes .5mg 0.5 mg, Univ ers (XANAX) 1-14 Oral, ity of tablet 0.5 15:00: DAILY, [place] mg 00 First dose Medical on [facility] 05/20/21 at 0900, Until Discontinu ed, Routine spironolact 2020-07 Yes 25mg 25 mg, Univ ers one 1-14 Oral, BID, ity of (ALDACTONE) 14:00: First dose [place] tablet 25 00 on [facility] mg 05/20/21 Branch at 0800, Until Discontinu ed, Routine Sliding 2020-07 Yes Subcutaneo Univ ers Scale 1-14 us, AC, ity of Insulin-Reg 13:30: First dose [place] ular + [facility]sbg [facility] Branch at 0730, Until Discontinu ed, Routine levothyroxi 2020-07 Yes 100ug 100 mcg, U nivers ne 1-14 Oral, ity of (SYNTHROID) 12:00: QAM-0600, [place] tablet 100 00 First dose Med ical mcg on [facility] 05/20/21 at 0600, Until Discontinu ed, Routine pantoprazol 2020-07 Yes 40mg 40 mg, Univ ers e 1-14 Oral, ity of (PROTONIX) 06:30: DAILY, [place] EC tablet 00 First dose Medi hermelindo 40 mg (after Branch last modificati on) on [place] 05/20/21 at 0030, Until Discontinu ed cyclobenzap 2020-07 Yes 10mg 10 mg, Univ ers rine 1-14 Oral, ity of (FLEXERIL) 06:12: TIDPRN, [place] tablet 10 13 Starting Medica l mg on [facility] 05/20/21 at 0012, Until Discontinu ed, Routine, Muscle Spasms, leg pain polyethylen 2020-07 Yes 17g 17 g, Unive rs e glycol 1-14 Oral, ity of 3350 powder 06:04: [id number], [place] 17 g 16 Starting Medical on [facility] 05/20/21 at 0004, Until Discontinu ed, Routine, Constipati on glucagon 2020-07 Yes 1mg 1 mg, Univers (GLUCAGEN -14 Intramuscu ity of DIAGNOSTIC 05:29: lar, PRN, [place] KIT) 29 Starting Medical injection 1 on [facility] 05/19/21 at 2329, Until Discontinu ed, JEFFREY, Blood Glucose < or = 70 mg/dL and patient is unable to swallow or has mental changes. dextrose 50 2020-07 Yes 25mL 25 mL, Univ ers % in water 14 Slow IV ity of (D50W) 05:29: Push, PRN, [place] injection 29 Starting Medica l [address] [facility] 05/19/21 at 2329, Until Discontinu ed, JEFFREY, Blood Glucose < or = 70 mg/dL and patient is unable to swallow or has mental status changes. ondansetron 2020-07 Yes 4mg 4 mg, Slow Univers (ZOFRAN 1-14 IV Push, ity of (PF)) 05:29: Q6HPRN, [place] injection 4 21 Starting Medi hermelindo [facility] 05/19/21 at 2329, Until Discontinu ed, Routine, Nausea and Vomiting (N/V) morpHINE 2020-07 No 2mg 2 mg, Slow Un brice injection 2 14 11-15 IV Push, ity of mg 05:29: 05:28 Q4HPRN, [place] 11 :11 Starting Medical on [facility] 05/19/21 at 2329, Until 05/20/21 at 2328, Routine, Pain (scale 7-10), Chest pain traMADoL 2020-07- No 50mg 50 mg, Univer s (ULTRAM) 07-20 1116 Oral, ity of tablet 50 05:29: 05:28 Q8HPRN, [place] mg 08 :08 Starting Medical on [facility] 05/19/21 at 2329, Until 05/21/21 at 2328, Routine, Pain (scale 4-6) acetaminoph 2020-07 Yes 650mg 650 mg, Un brice en 14 Oral, ity of (TYLENOL) 05:29: Q6HPRN, [place] tablet 650 05 Starting Medic al mg on [facility] 05/19/21 at 2329, Until Discontinu ed, Routine, Pain (scale 1-3) omeprazole 2020-07- No 20mg Take 20 mg Univers 20 mg 07-19 by mouth ity of capsule 23:30: 00:00 daily. [place] 33 :00 [facility] guaiFENesin 2020- No 100mg 100 mg, U nivers 100 mg/5 mL 09-14 Oral, ity of solution 05:00: 16:59 ONCE, 1 [place] 100 mg 00 :00 dose, Fri Medical 09/13/20 at Branch 2300, Routine ketorolac 2020- No 30mg 30 mg, Unive rs (TORADOL) 09-1411 Slow IV ity of injection 03:30: 02:27 Push, [place] 30 mg 00 :00 ONCE, 1 Medical dose, [facility] 09/13/20 at 2130, JEFFREY
Fa culty member approving Restricted medication : DIANA BERG benzonatate Yes [id number] 100mg Take 1 Univers 100 mg 3-10 capsule by ity of capsule 00:00: mouth 3 [place] 00 (three) Medical times [place] daily as needed for Cough. benzonatate Yes [id number] 100mg Take 1 Univers 100 mg 3-10 capsule by ity of capsule 00:00: mouth 3 [place] 00 (three) Medical times Branch daily as needed for Cough. benzonatate 2020- No [id number] 100mg Take 1 Univers 100 mg 09-13- [...] 10 193, JEFFREY mL codeine-gua 2019-0 Yes [id number] 10mL Take 10 mL Univers ifenesin -21 by mouth ity of 10-100 mg/5 00:00: every 6 [place] as mL solution 00 (six) Medical hours as Branch needed for Cough. albuterol 2020-0 Yes [id number] 2.5mg Inhale 3 Univers 2.5 mg /3 1-21 mL every 4 ity of mL (0.083 00:00: (four) [place] %) 00 hours as Medical nebulizer needed for Bran ch solution Wheezing or Shortness of Breath. May also nebulize one extra every 6 hours. albuterol 2020-0 Yes [id number] 2.5mg Inhale 3 Univers 2.5 mg /3 1-21 mL every 4 ity of mL (0.083 00:00: (four) [place] %) 00 hours as Medical nebulizer needed for Bran ch solution Wheezing or Shortness of Breath. May also nebulize one extra every 6 hours. albuterol 2020-0 Yes [id number] 2.5mg Inhale 3 Univers 2.5 mg /3 1-21 mL every 4 ity of mL (0.083 00:00: (four) [place] %) 00 hours as Medical nebulizer needed for Bran ch solution Wheezing or Shortness of Breath. May also nebulize one extra every 6 hours. albuterol 2020-0 Yes [id number] 2.5mg Inhale 3 Univers 2.5 mg /3 1-21 mL every 4 ity of mL (0.083 00:00: (four) [place] %) 00 hours as Medical nebulizer needed for Bran ch solution Wheezing or Shortness of Breath. May also nebulize one extra every 6 hours. albuterol 2020-0 Yes [id number] 2.5mg Inhale 3 Univers 2.5 mg /3 1-21 mL every 4 ity of mL (0.083 00:00: (four) [place] %) 00 hours as Medical nebulizer needed for Bran ch solution Wheezing or Shortness of Breath. May also nebulize one extra every 6 hours. albuterol 2020-0 Yes [id number] 2.5mg Inhale 3 Univers 2.5 mg /3 1-21 mL every 4 ity of mL (0.083 00:00: (four) [place] %) 00 hours as Medical nebulizer needed for Bran ch solution Wheezing or Shortness of Breath. May also nebulize one extra every 6 hours. albuterol 2020-0 Yes [id number] 2.5mg Inhale 3 Univers 2.5 mg /3 1-21 mL every 4 ity of mL (0.083 00:00: (four) [place] %) 00 hours as Medical nebulizer needed for Bran ch solution Wheezing or Shortness of Breath. May also nebulize one extra every 6 hours. albuterol 2020-0 Yes [id number] 2.5mg Inhale 3 Univers 2.5 mg /3 1-21 mL every 4 ity of mL (0.083 00:00: (four) [place] %) 00 hours as Medical nebulizer needed for Bran ch solution Wheezing or Shortness of Breath. May also nebulize one extra every 6 hours. albuterol 2020-0 Yes [id number] 2.5mg Inhale 3 Univers 2.5 mg /3 1-21 mL every 4 ity of mL (0.083 00:00: (four) [place] %) 00 hours as Medical nebulizer needed for Bran ch solution Wheezing or Shortness of Breath. May also nebulize one extra every 6 hours. albuterol 2020-0 Yes [id number] 2.5mg Inhale 3 Univers 2.5 mg /3 1-21 mL every 4 ity of mL (0.083 00:00: (four) [place] %) 00 hours as Medical nebulizer needed for Bran ch solution Wheezing or Shortness of Breath. May also nebulize one extra every 6 hours. albuterol 2020-0 Yes [id number] 2.5mg Inhale 3 Univers 2.5 mg /3 1-21 mL every 4 ity of mL (0.083 00:00: (four) [place] %) 00 hours as Medical nebulizer needed for Bran ch solution Wheezing or Shortness of Breath. May also nebulize one extra every 6 hours. albuterol 2020-0 Yes [id number] 2.5mg Inhale 3 Univers 2.5 mg /3 1-21 mL every 4 ity of mL (0.083 00:00: (four) [place] %) 00 hours as Medical nebulizer needed for Bran ch solution Wheezing or Shortness of Breath. May also nebulize one extra every 6 hours. albuterol 2020-0 Yes [id number] 2.5mg Inhale 3 Univers 2.5 mg /3 1-21 mL every 4 ity of mL (0.083 00:00: (four) [place] %) 00 hours as Medical nebulizer needed for Bran ch solution Wheezing or Shortness of Breath. May also nebulize one extra every 6 hours. albuterol 2020-0 Yes [id number] 2.5mg Inhale 3 Univers 2.5 mg /3 1-21 mL every 4 ity of mL (0.083 00:00: (four) [place] %) 00 hours as Medical nebulizer needed for Bran ch solution Wheezing or Shortness of Breath. May also nebulize one extra every 6 hours. albuterol 2020-0 Yes [id number] 2.5mg Inhale 3 Univers 2.5 mg /3 1-21 mL every 4 ity of mL (0.083 00:00: (four) [place] %) 00 hours as Medical nebulizer needed for Bran ch solution Wheezing or Shortness of Breath. May also nebulize one extra every 6 hours. codeine-gua 2020-0 2020- No [id number] 10mL Take 10 mL Univers ifenesin 1-21 [...] 03/11/19 at 1430, JEFF[place] dicyclomine 2018-0 Yes [id number] 10mg Take 1 Univers (BENTYL) 10 9-05 capsule by it y of mg capsule 00:00: mouth 4 [place] (four) Medical times Branch daily. ondansetron 2018-0 Yes [id number] 4mg Take 1 Univers 4 mg 9-05 tablet by ity of disintegrat 00:00: mouth [place] ing tablet 00 every 4 Medica l (four) Branch hours as needed for Nausea and Vomiting (N/V). dicyclomine 2019-0 Yes [id number] 10mg Take 1 Univers (BENTYL) 10 9-05 capsule by it y of mg capsule 00:00: mouth 4 [place] 00 (four) Medical times Branch daily. ondansetron 2019-0 Yes [id number] 4mg Take 1 Univers 4 mg 9-05 tablet by ity of disintegrat 00:00: mouth [place] ing tablet 00 every 4 Medica l (four) Branch hours as needed for Nausea and Vomiting (N/V). dicyclomine 2019-0 Yes [id number] 10mg Take 1 Univers (BENTYL) 10 9-05 capsule by it y of mg capsule 00:00: mouth 4 [place] 00 (four) Medical times Branch daily. ondansetron 2019-0 Yes [id number] 4mg Take 1 Univers 4 mg 9-05 tablet by ity of disintegrat 00:00: mouth [place] ing tablet 00 every 4 Medica l (four) Branch hours as needed for Nausea and Vomiting (N/V). dicyclomine 2020- No [id number] 10mg Take 1 Univers (BENTYL) 10 03-11 03-10 capsule by i ty of mg capsule 00:00: 00:00 mouth 4 [place] as 00 :00 (four) Medical times Branch daily. ondansetron 2020- No [id number] 4mg Take 1 Univers 4 mg 9-05 [...] by mouth ity of tablet 14:40: at [place] [address] bedtime. Medical Branch omeprazole 2018 Yes 20mg Take 20 mg U nivers 20 mg 4-10 by mouth ity of capsule 14:40: daily. [place] [address] Medical Branch atorvastati 2018-0 Yes 10mg Take 10 mg Univers n 10 mg 4-10 by mouth ity of tablet 14:40: at [place] [address] bedtime. Medical Branch omeprazole 2018-0 Yes 20mg Take 20 mg U nivers 20 mg 4-10 by mouth ity of capsule 14:40: daily. [place] [address] Medical Branch atorvastati 2018-0 Yes 10mg Take 10 mg Univers n 10 mg 4-10 by mouth ity of tablet 14:40: at [place] [address] bedtime. Medical Branch omeprazole 2017-0 Yes 20mg Take 20 mg U nivers 20 mg 4-10 by mouth ity of capsule 14:40: daily. [place] [address] Medical Branch atorvastati 2017-0 Yes 10mg Take 10 mg Univers n 10 mg 4-10 by mouth ity of tablet 14:40: at [place] [address] bedtime. Medical Branch omeprazole 2017-0 Yes 20mg Take 20 mg U nivers 20 mg 4-10 by mouth ity of capsule 14:40: daily. [place] [address] Medical Branch atorvastati 2017-0 Yes 10mg Take 10 mg Univers n 10 mg 4-10 by mouth ity of tablet 14:40: at [place] [address] bedtime. Medical Branch omeprazole 2017-0 Yes 20mg Take 20 mg U nivers 20 mg 4-10 by mouth ity of capsule 14:40: daily. [place] [address] Medical Branch levothyroxi 2018-0 Yes TAKE 1 Univ ers ne 125 mcg 4-10 TABLET BY ity of tablet 00:00: MOUTH [place] 00 EVERY Medical MORNING Branch levothyroxi 2018-0 Yes TAKE 1 Univ ers ne 125 mcg 4-10 TABLET BY ity of tablet 00:00: MOUTH [place] EVERY Medical MORNING Branch levothyroxi 2018-0 Yes TAKE 1 Univ ers ne 125 mcg 4-10 TABLET BY ity of tablet 00:00: MOUTH [place] 00 EVERY Medical MORNING Branch levothyroxi 2018-0 Yes TAKE 1 Univ ers ne 125 mcg 4-10 TABLET BY ity of tablet 00:00: MOUTH [place] EVERY Medical MORNING Branch levothyroxi 2018-0 Yes TAKE 1 Univ ers ne 125 mcg 4-10 TABLET BY ity of tablet 00:00: MOUTH [place] EVERY Medical MORNING Branch levothyroxi 2018-0 Yes TAKE 1 Univ ers ne 125 mcg 4-10 TABLET BY ity of tablet 00:00: MOUTH [place] EVERY Medical MORNING Branch levothyroxi 2018-0 Yes [...] TABLET BY ity of tablet 00:00: MOUTH [place] 00 EVERY Medical MORNING Branch clopidogrel 2018-0 Yes TAKE 1 Univ ers 75 mg 2-06 TABLET BY ity of tablet 00:00: MOUTH 00 EVERY Medical MORNING Branch clopidogrel 2018-0 Yes TAKE 1 Univ ers 75 mg 2-06 TABLET BY ity of tablet 00:00: MOUTH [place] 00 EVERY Medical MORNING Branch clopidogrel 2018-0 Yes TAKE 1 Univ ers 75 mg 2-06 TABLET BY ity of tablet 00:00: MOUTH 00 EVERY Medical MORNING Branch clopidogrel 2018-0 Yes TAKE 1 Univ ers 75 mg 2-06 TABLET BY ity of tablet 00:00: MOUTH [place] 00 EVERY Medical MORNING Branch clopidogrel 2018-0 Yes TAKE 1 Univ ers 75 mg 2-06 TABLET BY ity of tablet 00:00: MOUTH [place] 00 EVERY Medical MORNING Branch clopidogrel 2018-0 Yes TAKE 1 Univ ers 75 mg 2-06 TABLET BY ity of tablet 00:00: MOUTH [place] 00 EVERY Medical MORNING Branch clopidogrel 2018-0 Yes TAKE 1 Univ ers 75 mg 2-06 TABLET BY ity of tablet 00:00: MOUTH [place] 00 EVERY Medical MORNING Branch clopidogrel 2018-0 Yes TAKE 1 Univ ers 75 mg 2-06 TABLET BY ity of tablet 00:00: MOUTH [place] 00 EVERY Medical MORNING Branch clopidogrel 2018-0 Yes TAKE 1 Univ ers 75 mg 2-06 TABLET BY ity of tablet 00:00: MOUTH [place] 00 EVERY Medical MORNING Branch clopidogrel 2018-0 Yes TAKE 1 Univ ers 75 mg 2-06 TABLET BY ity of tablet 00:00: MOUTH [place] 00 EVERY Medical MORNING Branch clopidogrel 2018-0 Yes TAKE 1 Univ ers 75 mg 2-06 TABLET BY ity of tablet 00:00: MOUTH [place] 00 EVERY Medical MORNING Branch Vital Signs Vital Name Observation Time Observation Value Comments Source Systolic blood 2022-08-24 15:43:00 135 mm[Hg] Univer sity of pressure [facility] Diastolic blood 2022-08-24 15:43:00 83 mm[Hg] Unive rsity of pressure [facility] Heart rate 2022-08-24 15:43:00 94 /min [facility] Body temperature 2022-08-24 15:43:00 36.83 Brittany Univ ersity of [place] [facility] Respiratory rate 2022-08-24 15:43:00 18 /min Univ ersity of [place] [facility] Body height 2022-08-24 15:43:00 170.2 cm Universi ty of [place] [facility] Body weight 2022-08-24 15:43:00 58.968 kg Universi ty of [place] [facility] BMI 2022-08-24 15:43:00 20.36 kg/m2 Universi ty of [place] [facility] Oxygen saturation in 2022-08-24 15:43:00 99 /min University of Arterial blood by [place] [facility] Pulse oximetry Branch Systolic blood 2022-01-08 02:02:00 147 mm[Hg] Univer sity of pressure [place] [facility] Diastolic blood 2022-01-08 02:02:00 78 mm[Hg] Unive rsity of pressure [place] [facility] Heart rate 2022-01-08 02:02:00 78 /min Universi ty of [place] [facility] Respiratory rate 2022-01-08 02:02:00 18 /min Univ ersity of [place] [facility] Oxygen saturation in 2022-01-08 02:02:00 100 /min University of Arterial blood by [place] [facility] Pulse oximetry Branch Body temperature 2022-01-07 23:24:00 37.17 Brittany Univ ersity of [place] [facility] Body weight 2022-01-07 23:24:00 58.968 kg Universi ty of [place] [facility] BMI 2022-01-07 23:24:00 20.36 kg/m2 Univers[facility] ty of [place] [facility] Systolic blood 2022-01-06 20:29:00 140 mm[Hg] Univer sity of pressure [place] [facility] Diastolic blood 2022-01-06 20:29:00 106 mm[Hg] Unive rsity of pressure [place] [facility] Heart rate 2022-01-06 20:29:00 102 /min Universi ty of [place] [facility] Body temperature 2022-01-06 20:29:00 37.5 Brittany Univ ersity of [place] [facility] Respiratory rate 2022-01-06 20:29:00 16 /min Univ ersity of [place] [facility] Body height 2022-01-06 20:29:00 170.2 cm Universi ty of [place] [facility] Body weight 2022-01-06 20:29:00 58.968 kg Universi ty of [place] [facility] BMI 2022-01-06 20:29:00 20.36 kg/m2 Universi ty of [place] [facility] Oxygen saturation in 2022-01-06 20:29:00 99 /min University of Arterial blood by [place] [facility] Pulse oximetry Branch Systolic blood 2021-09-02 01:52:00 132 mm[Hg] Univer sity of pressure [place] [facility] Diastolic blood 2021-09-02 01:52:00 75 mm[Hg] Unive rsity of pressure [place] [facility] Heart rate 2021-09-02 01:52:00 67 /min Universi ty of [place] [facility] Respiratory rate 2021-09-02 01:52:00 16 /min Univ ersity of [place] [facility] Oxygen saturation in 2021-09-02 01:52:00 99 /min University of Arterial blood by [place] [facility] Pulse oximetry Branch Body temperature 2021-09-01 23:57:00 36.17 Brittany Univ ersity of [place] [facility] Body height 2021-09-01 23:57:00 170.2 cm [facility] [place] [facility] Body weight 2021-09-01 23:57:00 58.968 kg Universi ty of [place] [facility] BMI 2021-09-01 23:57:00 20.36 kg/m2 [facility] [place] [facility] Systolic blood 2021-08-07 15:57:00 165 mm[Hg] Univer sity of pressure [place] [facility] Diastolic blood 2021-08-07 15:57:00 71 mm[Hg] Unive rsity of pressure [place] [facility] Heart rate 2021-08-07 15:57:00 97 /min [facility] [place] [facility] Body temperature 2021-08-07 15:57:00 37.44 Brittany Univ [facility] [place] [facility] Respiratory rate 2021-08-07 15:57:00 18 /min Univ ersity of [place] [facility] Body height 2021-08-07 15:57:00 170.2 cm [facility] [place] [facility] Body weight 2021-08-07 15:57:00 56.7 kg [facility] [place] [facility] BMI 2021-08-07 15:57:00 19.58 kg/m2 [facility] ty of [place] [facility] Oxygen saturation in 2021-08-07 15:57:00 98 /min University of Arterial blood by [place] [facility] Pulse oximetry Branch Systolic blood 2021-06-30 01:29:00 132 mm[Hg] [facility] [place] [facility] Diastolic blood 2021-06-30 01:29:00 75 mm[Hg] [facility] [place] [facility] Heart rate 2021-06-30 01:29:00 75 /min [facility] [place] [facility] Respiratory rate 2021-06-30 01:29:00 18 /min [facility] [place] [facility] Oxygen saturation in 2021-06-30 01:29:00 100 /min University of Arterial blood by [facility] Pulse oximetry Branch Body temperature 2021-06-29 22:01:00 36.67 Brittany [facility] [place] [facility] Body weight 2021-06-29 22:01:00 53.071 kg [facility] [place] [facility] BMI 2021-06-29 22:01:00 18.32 kg/m2 [facility] [place] [facility] Systolic blood 2021-05-20 21:45:00 137 mm[Hg] [facility] [place] [facility] Diastolic blood 2021-05-20 21:45:00 75 mm[Hg] [facility] [place] [facility] Heart rate 2021-05-20 21:45:00 75 /min [facility] [place] [facility] Body temperature 2021-05-20 21:45:00 36.5 Brittany [facility] [place] [facility] Respiratory rate 2021-05-20 21:45:00 16 /min [facility] [place] [facility] Oxygen saturation in 2021-05-20 21:45:00 97 /min University of Arterial blood by [facility] Pulse oximetry Branch Body weight 2021-05-20 04:14:00 53.479 kg [facility] BMI 2021-05-20 04:14:00 18.47 kg/m2 [facility] [place] [facility] Body height 2021-05-20 03:42:00 170.2 cm [facility] [place] [facility] Systolic blood 2020-09-14 03:30:00 147 mm[Hg] [facility] [place] [facility] Diastolic blood 2020-09-14 03:30:00 89 mm[Hg] [facility] [place] [facility] Heart rate 2020-09-14 03:30:00 73 /min [facility] [place] [facility] Respiratory rate 2020-09-14 03:30:00 19 /min [facility] [place] [facility] Oxygen saturation in 2020-09-14 03:30:00 97 /min [facility] of Arterial blood by [facility] Pulse oximetry Branch Body temperature 2020-09-14 02:10:00 36.5 Brittany [facility] [place] [facility] Body height 2020-09-14 02:09:00 170.2 cm [facility] Body weight 2020-09-14 02:09:00 61.236 kg [facility] [place] [facility] BMI 2020-09-14 02:09:00 21.14 kg/m2 [facility] [place] [facility] Systolic blood 2020-09-14 03:30:00 147 mm[Hg] [facility] [place] [facility] Diastolic blood 2020-09-14 03:30:00 89 mm[Hg] [facility] [place] [facility] Heart rate 2020-09-14 03:30:00 73 /min [facility] [place] [facility] Respiratory rate 2020-09-14 03:30:00 19 /min [facility] [place] [facility] Oxygen saturation in 2020-09-14 03:30:00 97 /min [facility] of Arterial blood by [facility] Pulse oximetry Branch Body temperature 2020-09-14 02:10:00 36.5 Brittany [facility] [place] [facility] Body height 2020-09-14 02:09:00 170.2 [...] /min University of Arterial blood by [facility] Pulse oximetry Branch Systolic blood 2019-07-28 01:00:00 143 mm[Hg] [facility] [place] [facility] Diastolic blood 2019-07-28 01:00:00 74 mm[Hg] [facility] [place] [facility] Body temperature 2019-07-28 00:05:00 36.56 Brittany [facility] [place] [facility] Body height 2019-07-28 00:05:00 170.2 cm [facility] [place] [facility] Body weight 2019-07-28 00:05:00 68.04 kg [facility] [place] [facility] BMI 2019-07-28 00:05:00 23.49 kg/m2 [facility] [place] [facility] Heart rate 2019-07-28 01:36:00 70 /min [facility] [place] [facility] Respiratory rate 2019-07-28 01:36:00 18 /min [facility] [place] [facility] Oxygen saturation in 2019-07-28 01:24:00 98 /min University of Arterial blood by [facility] Pulse oximetry Branch Systolic blood 2019-07-28 01:00:00 143 mm[Hg] [facility] [place] [facility] Diastolic blood 2019-07-28 01:00:00 74 mm[Hg] [facility] [place] [facility] Body temperature 2019-07-28 00:05:00 36.56 Brittany [facility] [place] [facility] Body height 2019-07-28 00:05:00 170.2 cm [facility] [place] [facility] Body weight 2019-07-28 00:05:00 68.04 kg [facility] [place] [facility] BMI 2019-07-28 00:05:00 23.49 kg/m2 [facility] Systolic blood 2019-03-11 21:00:00 141 mm[Hg] [facility] [place] [facility] Diastolic blood 2019-03-11 21:00:00 66 mm[Hg] [facility] [place] [facility] Heart rate 2019-03-11 21:00:00 97 /min [facility] [place] [facility] Respiratory rate 2019-03-11 21:00:00 18 /min [facility] [place] [facility] Oxygen saturation in 2019-03-11 21:00:00 97 /min [facility] Arterial blood by [facility] Pulse oximetry Branch Body temperature 2019-03-11 19:13:00 36.06 Brittany [facility] [place] [facility] Body weight 2019-03-11 19:12:00 68.04 kg [facility] BMI 2019-03-11 19:12:00 23.49 kg/m2 [facility] Systolic blood 2019-03-11 21:00:00 141 mm[Hg] [facility] Diastolic blood 2019-03-11 21:00:00 66 mm[Hg] [facility] Heart rate 2019-03-11 21:00:00 97 /min [facility] Respiratory rate 2019-03-11 21:00:00 18 /min [facility] Oxygen saturation in 2019-03-11 21:00:00 97 /min [facility] Arterial blood by [facility] Pulse oximetry [place] Body temperature 2019-03-11 19:13:00 36.06 Brittany [facility] Body weight 2019-03-11 19:12:00 68.04 kg [facility] BMI 2019-03-11 19:12:00 23.49 kg/m2 [facility] Procedures Procedure Date / Time Performing Clinician Source Performed POCT SARS-COV-2 ANTIGEN 2022-08-24 15:52:00 Susan Lee [facility] (BINAX NOW) [facility] POCT MOLECULAR FLU 2022-08-24 15:51:00 Unknown, Attending [facility] ASSIGNMENT OF BENEFITS 2022-08-24 15:38:07 Doctor Unassigned, No [facility] Name [facility] XR CHEST 1 VW 2022-01-08 00:24:42 Alex Oconnell [facility] RAPID STREP SCREEN FOR 2022-01-06 20:47:00 Sherrill [facility] Medical Branch COVID-19 (ID NOW RAPID 2022-01-06 20:47:00 Sherrill Connor [facility] TESTING) Medical Branch CONSENT/REFUSAL FOR 2022-01-06 20:26:18 Doctor Unassigned, No [facility] DIAGNOSIS AND TREATMENT Name [facility] RAPID INFLUENZA A/B 2021-09-02 00:47:00 Cameron Dalton [facility] COVID-19 (ID NOW RAPID 2021-09-02 00:47:00 [facility] Branch XR CHEST 2 VW 2021-09-02 00:27:31 Miki [facility] CONSENT/REFUSAL FOR 2021-09-01 23:46:25 Doctor Unassigned, No [facility] Name Medical Branch XR CHEST 2 VW 2021-08-07 16:43:01 Darius Ledesma [facility] CONSENT/REFUSAL FOR 2021-08-07 15:37:28 Doctor Unassigned, No [facility] [place] DIAGNOSIS AND TREATMENT Name Medical Branch CT ABDOMEN PELVIS W 2021-06-29 23:11:24 Jose Alejandro Castano [facility] CONTRAST Medical Branch LIPASE 2021-06-29 22:18:00 Omaira [facility] TROPONIN I 2021-06-29 22:18:00 Omaira [facility] COMP. METABOLIC PANEL 2021-06-29 22:18:00 Omaira [facility] ([id number]) Medical Branch CBC WITH DIFF 2021-06-29 22:18:00 Omaira [facility] URINALYSIS 2021-06-29 22:18:00 Omaira [facility] CONSENT/REFUSAL FOR 2021-06-29 21:50:47 Doctor Unassigned, No [facility] [place] DIAGNOSIS [facility] TREATMENT [facility] POCT GLUCOSE (AUTOMATED) 2021-05-20 17:30:00 Marcelina Che [facility] HB ECG ROUTINE & RHYTHM 2021-05-20 15:36:46 Sami Caceres [facility] STRIP [facility] TRANSTHORACIC ECHO (TTE) 2021-05-20 15:19:52 [facility] COMPLETE [facility] TROPONIN I 2021-05-20 11:04:00 Esther [facility] BASIC METABOLIC PANEL 2021-05-20 11:04:00 Esther [facility] (NA, K, CL, CO2, Medical Branch GLUCOSE, BUN, CREATININE, CA) CBC WITH DIFF 2021-05-20 11:04:00 Marcelina Che [facility] TROPONIN I 2021-05-20 01:56:00 Neida [facility] XR CHEST 1 VW 2021-05-20 00:01:05 Neida [facility] LIPASE 2021-05-19 23:49:00 Neida [facility] MAGNESIUM 2021-05-19 23:49:00 Neida [facility] TROPONIN I 2021-05-19 23:49:00 Neida [facility] COMP. METABOLIC PANEL 2021-05-19 23:49:00 Neida Irving [facility] ([id number]) [facility] CBC WITH DIFF 2021-05-19 23:49:00 Neida [facility] PROTHROMBIN TIME / INR 2021-05-19 23:49:00 [facility]ida [facility] ACTIVATED PARTIAL 2021-05-19 23:49:00 Neida Irving [facility] THRMPLAS [facility] COVID-19 (ID NOW RAPID 2021-05-19 23:49:00 Neida Irving [facility] TESTING) [facility] CONSENT/REFUSAL FOR 2021-05-19 23:01:42 Doctor Unassigned, No Un [facility] DIAGNOSIS AND TREATMENT Name Medical Branch URINALYSIS 2020-09-14 02:42:[address] [facility] XR CHEST 1 VW 2020-09-14 02:30:[address] [facility] LIPASE 2020-09-14 02:21:[address] [facility] TROPONIN I 2020-09-14 02:21:[address] [facility] HEPATIC FUNCTION PANEL 2020-09-14 02:21:00 Diana Berg [facility] ([id number]) (ALB,T.PRO,BILI Medical Branch T,BU/BC,ALT,AST,ALK PHOS) BASIC METABOLIC PANEL 2020-09-14 02:21:00 Diana Berg [facility] [place] (NA, K, CL, CO2, Medical Branch GLUCOSE, BUN, CREATININE, CA) CBC WITH DIFF 2020-09-14 02:21:[address] [facility] N-TERMINAL PRO-BNP 2020-09-14 02:21:00 Diana Berg [facility] COVID-19 (ID NOW RAPID 2020-09-14 02:21:00 Diana [facility] [place] [facility] Medical Branch NOTICE OF PRIVACY 2020-09-14 02:00:22 Doctor Unassigned, No Univ [facility] PRACTICES Name [facility] CONSENT/REFUSAL FOR 2020-09-14 01:58:28 Doctor Unassigned, No [facility] [place] DIAGNOSIS AND TREATMENT Name [facility] HEPATIC FUNCTION PANEL 2019-07-28 00:55:00 Mariangel [facility]tega [facility] [place] ([id number]) (ALB,T.PRO,BILI Medical Branch T,BU/BC,ALT,AST,ALK PHOS) BASIC METABOLIC PANEL 2019-07-28 00:55:00 Mariangel Ortega [facility] [place] (NA, K, CL, CO2, Medical Branch GLUCOSE, BUN, CREATININE, CA) CBC WITH DIFFERENTIAL 2019-07-28 00:55:00 Mariangel Ortega [facility] RAPID STREP SCREEN FOR 2019-07-28 00:55:00 [facility] ADC,CLC OR LCC ONLY - 2019-07-28 00:55:00 Mariangel Ortega [facility] [place] INFLUENZA A & B DIRECT Medical [place] ANTIGEN CBC WITH DIFFERENTIAL 2019-07-28 00:55:00 Mariangel [facility]tega [facility] XR CHEST 2 VW 2019-07-28 00:28:40 Mariangel Ortega [facility] CONSENT/REFUSAL FOR 2019-07-27 23:47:18 Doctor Unassigned, No [facility] [place] DIAGNOSIS AND TREATMENT Name Medical Branch LIPASE 2019-03-11 19:53:00 Sherrill Connor Ogden o f [facility] HEPATIC FUNCTION PANEL 2019-03-11 19:53:00 Sherrill Connor [facility] ([id number]) (ALB,T.PRO,BILI [facility] T,BU/BC,ALT,AST,ALK PHOS) BASIC METABOLIC PANEL 2019-03-11 19:53:00 Sherrill Connor [facility] (NA, K, CL, CO2, Medical Branch GLUCOSE, BUN, CREATININE, CA) CBC WITH DIFFERENTIAL 2019-03-11 19:53:00 Sherrill Connor [facility] PROTHROMBIN TIME / INR 2019-03-11 19:53:00 Sherrill Connor [facility] ACTIVATED PARTIAL 2019-03-11 19:53:00 Sherrill Connor [facility] THRMPLAS [facility] NOTICE OF PRIVACY 2019-03-11 18:56:54 Doctor Unassigned, [facility] PRACTICES Name [facility] Encounters Start End Encounter Admission Attending Care Care Encounter Source Date/Time Date/Time Type Type Clinicians Facility Department ID 2021-05-06 Emergency [facility] [id number] Univers 05:05:13 ity of [facility] 2022-08-24 2022-08-24 Urgent Susan Lee [facility] [id number] Univers 09:40:00 10:00:00 Care Unknown, Attending [id number] [id number] Amandeep as JOCELYN?BLEA [id number] [place] [address] MEDICAL OFFICE BUILDING 2022-08-24 2022-08-24 Outpatient R TAMIKO [facility] [id number] Univers 09:40:00 09:40:00 SUSAN ity of [facility] 2022-08-24 2022-08-24 Orders Doctor SUSHIL [id number] Univers 00:00:00 00:00:00 Only Unassigned, KIRK [id number] [facility] [id number] Amandeep as [phone] [address] 2022-01-11 2022-01-11 Laboratory Only, Ang Db Test [facility] 1.2.8 40.114 [id number] Univers 13:15:00 13:30:00 Only Monik Charles [facility] [id number] ity of [place] 4.2.7.2.686 Amandeep as JOCELYN?BLEA [id number] [place] lennie [address] MEDICAL OFFICE BUILDING 2022-01-11 2022-01-11 [facility] [id number] Univers 13:15:00 13:24:38 MONIK radha [facility] 2022-01-07 2022-01-07 Emergency X [facility] ERT [id number] Univers 18:26:00 21:08:00 [facility] 2022-01-07 2022-01-07 Emergency [facility] [id number] Univers 18:26:00 21:08:00 Alex DENNISON [id number] ity of [place] 4.2.7.2.686 [facility] [id number] [address] 2022-01-06 2022-01-06 Emergency [facility] [id number] Univers 15:31:00 16:32:00 SHERRILL [facility] 2022-01-06 2022-01-06 Emergency [facility] [id number] Univers 15:31:00 16:32:00 Sherrill DENNISON [id number] i ty of [place] 4.2.7.2.686 [facility] [id number] [address] 2021-09-01 2021-09-01 Emergency [facility] [id number] Univers 17:59:00 19:56:00 CAMERON delaney [facility] 2021-09-01 2021-09-01 Emergency [facility] 1.2.840.114 [id number] Univers 17:59:00 19:56:00 Cameron DENNISON [id number] i ty of [facility] 4.2.7.2.686 [facility] [id number] [address] 2021-09-01 2021-09-01 Orders Doctor LING 1.2.840.114 [id number] Univers 00:00:00 00:00:00 Only Unassigned, KIRK [id number] ity of [place] [facility] 4.2.7.2.686 Amandeep as [phone] [facility] 009 Branch 2021-08-08 2021-08-08 Letter SUSHIL Daniels 1.2.840.114 [id number] Univers 00:00:00 00:00:00 (Out) Nirmala Ballard KIRK [id number] it y of HOSPITAL 4.2.7.2.686 Amandeep as [phone] [facility] 019 Branch 2021-08-07 2021-08-07 Emergency X [facility] ERT [id number] Univers 09:58:00 11:43:00 DARIUS ity of [facility] 2021-08-07 2021-08-07 Emergency [facility] [id number] Univers 09:58:00 11:43:00 Darius DENNISON [id number] i ty of [place] 4.2.7.2.6 [facility] [id number] [facility] 084 [place] 2021-08-07 2021-08-07 Orders Doctor LING 1.2.840.114 [id number] Univers 00:00:00 00:00:00 Only Unassigned, KIRK 350.1.13.10 ity of [place] [facility] 4.2.7.2.686 Amandeep as [phone] [facility] 009 Branch 2021-06-29 2021-06-29 Emergency X [facility] ERT [id number] Univers 16:04:00 19:33:00 JOSE ALEJANDRO ity [facility] 2021-06-29 2021-06-29 Emergency [facility] 1.2.840.114 [id number] Univers 16:04:00 19:33:00 Jose Alejandro DENNISON 350.1.13.10 i ty of [place] 4.2.7.2.686 [facility] [id number] [address] 2021-05-19 2021-05-20 [facility] [id number] Univers 17:04:00 17:03:00 MARCELINA itradha [facility] 2021-05-19 2021-05-20 Emergency Neida Irving [facility] 1.2.840. 114 [id number] [facility] 17:04:00 17:03:00 Marcelina Che 350.1.13.10 ity of [facility] 4.2.7.2.686 [place] [id number] [address] 2020-09-16 2020-09-16 Outpatient R LUIS MANUEL [facility] [id number] Univers 10:20:00 10:20:00 NICOLE ity [facility] 2020-09-16 2020-09-16 Laboratory Lab, [facility] 1.2.840.114 [id number] 09:44:15 10:04:15 Only Fam Pob I Health 350.1.13.10 [place] 4.2.7.2.686 Professio [id number] [place] [address] [address] 2020-09-16 2020-09-16 Laboratory Lab, [facility] Fam Pob I [facility] 1.2. 840.114 [id number] [facility] 09:44:15 10:04:15 Only Nicole Issa 350.1.13.10 ity of [place] 4.2.7.2.686 Amandeep as Professio [id number] [place] dical [address] Office [facility] One 2020-09-13 2020-09-13 Emergency [facility] 1.2.840.114 [id number] 20:05:00 22:24:00 Diana Dennison 350.1.13.10 [place] 4.2.7.2.686 [place] [id number] [facility] 2020-09-13 2020-09-13 Emergency [facility] 1.2.840.114 [id number] [facility] 20:05:00 22:24:00 Diana Dennison 350.1.13.10 ity of [place] 4[place]2.7.2.686 [place] [id number] [address] 2019-07-27 2019-07-27 Emergency Shannon [facility] 1.2.840.114 [id number] 18:07:12 20:13:00 Mariangel Dennison 350.1.13.10 [place] 4.2.7.2.686 [place] [id number] 2019-07-27 2019-07-27 Emergency [facility] 1.2.840.114 [id number] [facility] 18:07:12 20:13:00 Mariangel Dennison 350.1.13.10 ity of [place] 4.2.7.2.686 [facility] [id number] [address] 2019-07-27 2019-07-27 Orders Doctor SUSHIL 1.2.840.114 [id number] 00:00:00 00:00:00 Only Unassigned, KIRK 350.1.13.10 [place] [facility] 4.2.7.2.686 [id number] 2019-07-27 2019-07-27 Orders Doctor SUSHIL 1.2.840.114 [id number] Univers 00:00:00 00:00:00 Only Unassigned, KIRK 350.1.13.10 ity of [place] [facility] 4.2.7.2.686 Amandeep [id number] [address] 2019-03-11 2019-03-11 Emergency [facility] [id number] 14:05:54 16:45:00 Sherrill Dennison 350.1.13.10 [place] 4.2.7.2.686 [place] [id number] [facility] 2019-03-11 2019-03-11 [facility] [id number] [facility] 14:05:54 16:45:00 Sherrill Dennison 350.1.13.10 i ty of [place] 4.2.7.2.686 [facility] [id number] [address] Results Test Description Test Time Test Comments Results Result Comments Source POCT MOLECULAR FLU 2022-08-24 16:02:31 Test Item Value Reference Range Interpretation Comme nts POCT Molecular FluA (test code = 72580-2) Negative Negative POCT Molecular FluB (test code = 65409-6) Negative Negative Lab Interpretation (test code = 81493-5) [facility] SARS-COV-2 ANTIGEN (BINAX NOW)2022-08-24 15:52:00 Test Item Value Reference Range Interpretation Comments POCT SARS-COV-2 ANTIGEN (test Not Detected Not Detected code = 43521-3) On board controls acceptable Yes with C Line (test code = 3574) Lab Interpretation (test code = Normal 88605-9) [facility]. METABOLIC PANEL (96470)2021-06-29 23:10:56 Test Item Value Reference Range Interpretation Comments NA (test code = 137 mmol/L 135-145 2243528839) K (test code = 3.9 mmol/L 3.5-5.0 0003817010) CL (test code = 102 mmol/L 98-108 8899820128) CO2 TOTAL (test code = 27 mmol/L 23-31 6900167284) AGAP (test code = 2-16 3832579101) BUN (test code = 10 mg/dL 7-23 8948717962) GLUCOSE (test code = 137 mg/dL 70-110 H 5394864938) CREATININE (test code = 0.69 mg/dL 0.50-1.04 3313119309) TOTAL BILI (test code = 0.5 mg/dL 0.1-1.7 7679706343) CALCIUM (test code = 9.2 mg/dL 8.6-10.6 0317034877) T PROTEIN (test code = 7.7 g/dL 6.3-8.2 6283967302) ALBUMIN (test code = 4.9 g/dL 3.5-5.0 7860576966) ALK PHOS (test code = 73 U/L 34-122 3495536201) ALTv (test code = 15 U/L 5-35 1742-6) AST(SGOT) (test code = 21 U/L 13-40 8040624084) eGFR (test code = mL/min/1.73m2 7804603323) MADISYN (test code = MADISYN) Association of [...] tests). Lab Interpretation Abnormal (test code = 77093-4) [id number] 22:59:27 Test Item Value Reference Interpretation Comments Range TROPONIN I (test 0.001 ng/mL See_Comment [Automated code = 4736099727) message] The system which generated this result [...] biotin. Lab Interpretation Normal (test code = 22120-6) [facility] 22:49:29 Test Item Value Reference Range Interpretation Comments LIPASE (test code = 3583617212) 57 U/L 0-220 Lab Interpretation (test code = Normal 45429-9) [facility] WITH [id number] 22:29:28 Test Item Value Reference Range Interpretation [...] RDW-SD (test code = 43.4 fL 39.0-49.9 66054-4) RDW-CV (test code = 12.7 % 12.0-15.5 788-0) PLT (test code = See_Comment [Automated 777-3) message] The sy stem which generated this result transmitted reference range : 166 - 358 10*3/ ?L. The reference r aiden was not used to interpret this result as normal/abnormal . MPV (test code = 10.7 fL 9.5-12.9 03984-1) NRBC/100 WBC (test See_Comment [Automat ed code = 0597717078) message] The system which generated this result transmitted reference range : 0.0 - 10.0 /100 WBCs. The refer ence range was not u sed to interpret th is result as normal/abnormal . NRBC x10^3 (test code <0.01 See_Comment [Auto mated = 2344226663) message] The s ystem which generated this result transmitted reference range : 10*3/?L. The reference range was not used to interpret this result as normal/abnormal . GRAN MAT (NEUT) % 68.6 % (test code = 770-8) IMM GRAN % (test code 0.40 % = 1670489955) LYMPH % (test code = 22.9 % 736-9) MONO % (test code = 6.3 % 5905-5) EOS % (test code = 1.6 % 713-8) BASO % (test code = 0.2 % 706-2) GRAN MAT x10^3(ANC) 6.89 10*3/uL 1.88-7.09 (test code = 9738529872) IMM GRAN x10^3 (test 0.04 10*3/uL 0.00-0.06 code = 1925567668) LYMPH x10^3 (test code 2.30 10*3/uL 1.32-3.29 = 731-0) MONO x10^3 (test code 0.63 10*3/uL 0.33-0.92 = 742-7) EOS x10^3 (test code = 0.16 10*3/uL 0.03-0.39 711-2) BASO x10^3 (test code <0.03 0.01-0.07 = 704-7) Lab Interpretation Abnormal (test code = 22841-1) [facility]21-[facility]-20 17:33:00 Test Item Value Reference Range Interpretation Comments POCT GLU (test code = 5575820533) 80 mg/dL 70-110 Lab Interpretation (test code = Normal 02677-2) [facility] [id number] 12:36:17 Test Item Value Reference Interpretation Comments Range TROPONIN I (test 0.002 ng/mL See_Comment [Automated code = 2215366442) message] The system which generated this result [...] biotin. Lab Interpretation Normal (test code = 60557-8) [facility] [place] [facility] (NA, K, CL, CO2, GLUCOSE, BUN, CREATININE, [place])2021-05-20 12:31:20 Test Item Value Reference Range Interpretation Comments NA (test code = 138 mmol/L 135-145 3981755353) K (test code = 4.2 mmol/L 3.5-5.0 9399278746) CL (test code = 106 mmol/L 98-108 9690738065) CO2 TOTAL (test code = 25 mmol/L 23-31 7196963849) AGAP (test code = 2-16 6170747176) BUN (test code = 12 mg/dL 7-23 5723618753) GLUCOSE (test code = 146 mg/dL 70-110 H 2685111221) CREATININE (test code = 0.62 mg/dL 0.50-1.04 3684818528) CALCIUM (test code = 10.0 mg/dL 8.6-10.6 2640923723) eGFR (test code = mL/min/1.73m2 4637658968) MADISYN (test code = MADISYN) Association of [...] tests). Lab Interpretation Abnormal (test code = 53641-6) [facility] with [id number] 11:49:32 Test Item Value Reference Range Interpretation Comments WBC (test code = See_Comment [Automated 6817-2) message] The sy stem which generated this result transmitted reference range : 4.30 - 11.10 10*3/?L. The reference range was not used to interpret this result as normal/abnormal . RBC (test code = See_Comment L [Automated 469-8) message] The sy stem which generated this [...] RDW-SD (test code = 40.3 fL 39.0-49.9 70601-6) RDW-CV (test code = 11.9 % 12.0-15.5 L 788-0) PLT (test code = See_Comment [Automated 027-3) message] The sy stem which generated this result transmitted reference range : 166 - 358 10*3/ ?L. The reference r aiden was not used to interpret this result as normal/abnormal . MPV (test code = 11.3 fL 9.5-12.9 57534-5) NRBC/100 WBC (test See_Comment [Automat ed code = 5989918510) message] The system which generated this result transmitted reference range : 0.0 - 10.0 /100 WBCs. The refer ence range was not u sed to interpret th is result as normal/abnormal . NRBC x10^3 (test code <0.01 See_Comment [Auto mated = 0761452878) message] The s ystem which generated this result transmitted reference range : 10*3/?L. The reference range was not used to interpret this result as normal/abnormal . GRAN MAT (NEUT) % 59.9 % (test code = 770-8) IMM GRAN % (test code 0.50 % = 8197287579) LYMPH % (test code = 30.0 % 736-9) MONO % (test code = 6.4 % 5905-5) EOS % (test code = 2.9 % 713-8) BASO % (test code = 0.3 % 706-2) GRAN MAT x10^3(ANC) 3.72 10*3/uL 1.88-7.09 (test code = 7681649504) IMM GRAN x10^3 (test 0.03 10*3/uL 0.00-0.06 code = 4213525019) LYMPH x10^3 (test code 1.86 10*3/uL 1.32-3.29 = 731-0) MONO x10^3 (test code 0.40 10*3/uL 0.33-0.92 = 742-7) EOS x10^3 (test code = 0.18 10*3/uL 0.03-0.39 711-2) BASO x10^3 (test code <0.03 0.01-0.07 = 704-7) Lab Interpretation Abnormal (test code = 65040-8) [id number] 02:24:28 Test Item Value Reference Interpretation Comments Range TROPONIN I (test 0.003 ng/mL See_Comment [Automated code = 7927047043) message] The system which generated this result [...] biotin. Lab Interpretation Normal (test code = 82883-8) [facility] 00:25:00 Test Item Value Reference Range Interpretation Comments MAGNESIUM (test code = 9800555868) 1.9 mg/dL 1.7-2.4 Lab Interpretation (test code = Normal 78477-6) [facility] CenterTROP[facility] [id number] 00:20:03 Test Item Value Reference Interpretation Comments Range TROPONIN I (test 0.002 ng/mL See_Comment [Automated code = 6111177162) message] The system which generated this result [...] biotin. Lab Interpretation Normal (test code = 62677-4) [facility] CenterCOM[facility]OL[facility] PAN[facility] (12126)2021-05-20 00:09:00 Test Item Value Reference Range Interpretation Comments NA (test code = 139 mmol/L 135-145 5107652083) K (test code = 3.9 mmol/L 3.5-5.0 8979969375) CL (test code = 101 mmol/L 98-108 6113952602) CO2 TOTAL (test code = 28 mmol/L 23-31 7871583542) AGAP (test code = 2-16 8595378293) BUN (test code = 13 mg/dL 7-23 7812110732) GLUCOSE (test code = 143 mg/dL 70-110 H 6342285203) CREATININE (test code = 0.68 mg/dL 0.50-1.04 6663774259) TOTAL BILI (test code = 0.4 mg/dL 0.1-1.0 6842598685) CALCIUM (test code = 10.4 mg/dL 8.6-10.6 4546205948) T PROTEIN (test code = 8.0 g/dL 6.3-8.2 2032384789) ALBUMIN (test code = 5.0 g/dL 3.5-5.0 2707017753) ALK PHOS (test code = 93 U/L 34-122 0273055567) ALTv (test code = 21 U/L 5-35 1742-6) AST(SGOT) (test code = 31 U/L 13-40 6028688606) eGFR (test code = mL/min/1.73m2 8742867630) MADISYN (test code = MADISYN) Association of [...] tests). Lab Interpretation Abnormal (test code = 42307-3) [facility]LIP[facility] 00:08:20 Test Item Value Reference Range Interpretation Comments LIPASE (test code = 2304725391) 66 U/L 0-220 Lab Interpretation (test code = Normal 14264-3) [facility]eraPTT20[facility]-14 00:06:19 Test Item Value Reference [...] seconds. Lab Interpretation Normal (test code = 81327-7) [facility] CenterPROTHROMBIN TIME / [id number] 00:04:19 Test Item Value Reference Range Interpretation [...] tions. Lab Interpretation (test Normal code = 48998-1) [facility] CenterCBC WITH [id number] 23:55:39 Test Item Value Reference Range Interpretation [...] RDW-SD (test code = 40.4 fL 39.0-49.9 01542-4) RDW-CV (test code = 11.9 % 12.0-15.5 L 788-0) PLT (test code = See_Comment [Automated 777-3) message] The sy stem which generated this result transmitted reference range : 166 - 358 10*3/ ?L. The reference r aiden was not used to interpret this result as normal/abnormal . MPV (test code = 11.0 fL 9.5-12.9 53478-6) NRBC/100 WBC (test See_Comment [Automat ed code = 8134378098) message] The system which generated this result transmitted reference range : 0.0 - 10.0 /100 WBCs. The refer ence range was not u sed to interpret th is result as normal/abnormal . NRBC x10^3 (test code <0.01 See_Comment [Auto mated = 3909104093) message] The s ystem which generated this result transmitted reference range : 10*3/?L. The reference range was not used to interpret this result as normal/abnormal . GRAN MAT (NEUT) % 53.4 % (test code = 770-8) IMM GRAN % (test code 0.60 % = 1891565020) LYMPH % (test code = 36.2 % 736-9) MONO % (test code = 6.4 % 5905-5) EOS % (test code = 3.3 % 713-8) BASO % (test code = 0.1 % 706-2) GRAN MAT x10^3(ANC) 3.58 10*3/uL 1.88-7.09 (test code = 5380363313) IMM GRAN x10^3 (test 0.04 10*3/uL 0.00-0.06 code = 1274093709) LYMPH x10^3 (test code 2.43 10*3/uL 1.32-3.29 = 731-0) MONO x10^3 (test code 0.43 10*3/uL 0.33-0.92 = 742-7) EOS x10^3 (test code = 0.22 10*3/uL 0.03-0.39 711-2) BASO x10^3 (test code <0.03 0.01-0.07 = 704-7) Lab Interpretation Abnormal (test code = 75148-6) [facility] CenterUrinalysis2021-03-11 03:27:11 Test Item Value Reference Range Interpretation Comments APPEARANCE (test code = Clear Clear 4399910535) COLOR (test code = Straw Yellow A 7226276775) PH (test code = 4.8-8.0 9445956480) SP GRAVITY (test code = 1.003-1.030 0795350365) GLU U QUAL (test code = 500 mg/dL Normal A 2231090681) BLOOD (test code = Negative Negative 5185853536) KETONES (test code = Negative Negative 8567288964) PROTEIN (test code = Negative Negative 2887-8) UROBILIN (test code = Normal Normal 1196360129) BILIRUBIN (test code = Negative Negative 8212255884) NITRITE (test code = Negative Negative 2980329886) LEUK KEVEN (test code = 25/uL Negative A 1943178753) RBC/HPF (test code = See_Comment [Autom ated message] 5114166623) The system [employer] generated this result transmit zoila reference range : 0 - 3 HPF. The refe rence range was not u sed to interpret th is result as normal/abnormal . WBC/HPF (test code = See_Comment [Autom ated message] 2974650485) The system [employer] generated this result transmit zoila reference range : 0 - 5 HPF. The refe rence range was not u sed to interpret th is result as normal/abnormal . BACTERIA (test code = Negative Negative 3704402575) MUCOUS (test code = Slight Negative LPF A 6154230723) SQ EPITH (test code = HPF 3961658918) Lab Interpretation (test Abnormal code = 98264-3) [facility] CenterTroponin [id number] 03:00:28 Test Item Value Reference Range Interpretation Comments TROPONIN I (test <0.012 See_Comment [Automated code = 3776136107) message] The system which generated this result [...] ? Lab Interpretation Normal (test code = 55834-2) [facility] CenterN-TERMINAL [id number] 02:57:10 Test Item Value Reference Range Interpretation Comments NT-proBNP (test code 25 pg/mL See_Comment [Autom ated = 7098484248) message] The system which generated this result transmitted reference range : <=125. The reference range was not used to interpret this result as normal/abnormal . MADISYN (test code = MADISYN) Biotin has been reported to cause a negative bias, interpret results relative to patient's use of biotin. Lab Interpretation Normal (test code = 55285-8) [facility] [place] Metabolic Panel (NA, K, CL, CO2, GLUCOSE, BUN, CREATININE, CA)2020-09-14 02:48:49 Test Item Value Reference Range Interpretation Comments NA (test code = 135 mmol/L 135-145 9166939256) K (test code = 3.6 mmol/L 3.5-5.0 8466705631) CL (test code = 101 mmol/L 98-108 5034852231) CO2 TOTAL (test code = 23 mmol/L 23-31 0586784794) AGAP (test code = 2-16 4048709200) BUN (test code = 10 mg/dL 7-23 7790251513) GLUCOSE (test code = 296 mg/dL 70-110 H 8311033328) CREATININE (test code = 0.62 mg/dL 0.50-1.04 7064165953) CALCIUM (test code = 9.7 mg/dL 8.6-10.6 3793451554) eGFR Calculation mL/min/1.73m2 (Non-) (test code = 1422919638) eGFR Calculation mL/min/1.73m2 () (test code = 2216719551) MADISYN (test code = MADISYN) Association of [...] tests). Lab Interpretation Abnormal (test code = 63194-5) [facility] CenterHepatic Function [facility] (ALB, T.PRO, BILI T, BU/BC, ALT, AST, ALK PHOS)2020-09-14 02:48:48 Test Item Value Reference Range Interpretation Comments TOTAL BILI (test code = 6195906313) 0.4 mg/dL 0.1-1.1 BILI UNCON (test code = 3245205339) 0.4 mg/dL 0.1-1.1 BILI CONJ (test code = 4165646148) 0.0 mg/dL 0.0-0.3 T PROTEIN (test code = 7956322730) 7.7 g/dL 6.3-8.2 ALBUMIN (test code = 9783740227) 5.0 g/dL 3.5-5.0 ALK PHOS (test code = 3460887242) 78 U/L 34-122 ALTv (test code = 1742-6) 19 U/L 5-35 AST(SGOT) (test code = 5402346052) 25 U/L 13-40 Lab Interpretation (test code = Normal 38962-3) [facility] CenterLipase [id number] 02:48:48 Test Item Value Reference Range Interpretation Comments LIPASE (test code = 1254892540) 38 U/L 0-220 Lab Interpretation (test code = Normal 18002-5) [facility] CenterCOVID-19 (ID NOW RAPID TESTING)2020-09-14 02:36:29 Test Item Value Reference Range Interpretation Comments SARS-CoV-2 Rapid ID NOW Positive Not Detected A (test code = 41057-2) MADISYN (test code = MADISYN) ID NOW COVID-19 Assay is an isothermal nucleic acid amplification test intended for the qualitative detection of nucleic acid from SARS-CoV-2 viral RNA in nasopharyngeal (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 It is used under Emergency Use [...] indicated. Lab Interpretation Abnormal (test code = 57148-0) [facility] with [id number] 02:30:06 Test Item Value Reference Range Interpretation Comments WBC (test code = See_Comment [Automated message] 7790-2) The system [employer] generated this result transmitted ref erence range: 4.30 - 1 1.10 10*3/?L. The re ference range was not u sed to interpret this result as normal/abnor mal. RBC (test code = See_Comment [Automated message] 789-8) The system [employer] generated this result transmitted ref erence range: [...] RDW-SD (test code 41.8 fL 39.0-49.9 = 68897-1) RDW-CV (test code 12.8 % 12.0-15.5 = 788-0) PLT (test code = See_Comment [Automated message] 777-3) The system whic h generated this result transmitted ref erence range: 166 - 35 8 10*3/?L. The re ference range was not u sed to interpret this result as normal/abnor mal. MPV (test code = 11.2 fL 9.5-12.9 87143-0) NRBC/100 WBC (test See_Comment [Automat ed message] code = 6202563290) The syste m which generated this result transmitted ref erence range: 0.0 - 10 .0 /100 WBCs. The refer ence range was not u sed to interpret this result as normal/abnor mal. NRBC x10^3 (test <0.01 See_Comment [Automated message] code = 0958264285) The syste m which generated this result transmitted ref erence range: 10*3/?L. The reference range was not used to interpr et this result as normal/abnormal . GRAN MAT (NEUT) % 54.0 % (test code = 770-8) IMM GRAN % (test 0.70 % code = 6621656291) LYMPH % (test code 36.2 % = 736-9) MONO % (test code 6.0 % = 5905-5) EOS % (test code = 2.8 % 713-8) BASO % (test code 0.3 % = 706-2) GRAN MAT 3.13 10*3/uL 1.88-7.09 x10^3(ANC) (test code = 1749240803) IMM GRAN x10^3 0.04 10*3/uL 0.00-0.06 (test code = 4318914309) LYMPH x10^3 (test 2.10 10*3/uL 1.32-3.29 code = 731-0) MONO x10^3 (test 0.35 10*3/uL 0.33-0.92 code = 742-7) EOS x10^3 (test 0.16 10*3/uL 0.03-0.39 code = 711-2) BASO x10^3 (test <0.03 0.01-0.07 code = 704-7) [facility] WITH [id number] 01:35:00 Test Item Value Reference Range Interpretation [...] RDW-SD (test code = 40.8 fL 39-49.9 20043-0) RDW-CV (test code = 12.5 % 12-15.5 788-0) PLT (test code = See_Comment [Automated 777-3) message] The sy stem which generated this result transmitted reference range : 166 - 358 10*3/ ?L. The reference r aiden was not used to interpret this result as normal/abnormal . MPV (test code = 11.0 fL 9.5-12.9 36133-9) IPF % (test code = 5.7 % 1.3-7.7 Platelet count 1874740889) measured by fluorescence method. NRBC/100 WBC (test See_Comment [Automat ed code = 1436577336) message] The system which generated this result transmitted reference range : 0.0 - 10.0 /100 WBCs. The refer ence range was not u sed to interpret th is result as normal/abnormal . NRBC x10^3 (test code <0.01 See_Comment [Auto mated = 2628022288) message] The s ystem which generated this result transmitted reference range : 10*3/?L. The reference range was not used to interpret this result as normal/abnormal . GRAN MAT (NEUT) % 60.2 % (test code = 770-8) IMM GRAN % (test code 1.60 % = 6445389409) LYMPH % (test code = 29.4 % 736-9) MONO % (test code = 6.2 % 5905-5) EOS % (test code = 2.3 % 713-8) BASO % (test code = 0.3 % 706-2) GRAN MAT x10^3(ANC) 5.31 10*3/uL 1.88-7.09 (test code = 1460572756) IMM GRAN x10^3 (test 0.14 10*3/uL 0-0.06 H code = 3030053182) LYMPH x10^3 (test code 2.59 10*3/uL 1.32-3.29 = 731-0) MONO x10^3 (test code 0.55 10*3/uL 0.33-0.92 = 742-7) EOS x10^3 (test code = 0.20 10*3/uL 0.03-0.39 711-2) BASO x10^3 (test code 0.03 10*3/uL 0.01-0.07 = 704-7) Lab Interpretation Abnormal (test code = 59298-9) [facility] CenterAD,CLC OR [facility] ONLY - INFLUENZA A & B DIRECT [id number] 01:26:00 Test Item Value Reference Range Interpretation Comments Influenza A (test code = 82232-6) Negative Negative Influenza B (test code = 51719-7) Negative Negative Lab Interpretation (test code = Normal 24175-5) [facility] [place] Metabolic Panel (NA, K, CL, CO2, GLUCOSE, BUN, CREATININE, CA)2019-07-28 01:21:00 Test Item Value Reference Range Interpretation Comments NA (test code = 137 mmol/L 135-145 9249204857) K (test code = 3.8 mmol/L 3.5-5 8440504212) CL (test code = 100 mmol/L 98-108 9111425033) CO2 TOTAL (test code = 24 mmol/L 23-31 2657613058) AGAP (test code = 2-16 3121123287) BUN (test code = 13 mg/dL 7-23 3676844474) GLUCOSE (test code = 245 mg/dL 70-110 H 4822210517) CREATININE (test code = 0.49 mg/dL 0.5-1.04 L 2248489060) CALCIUM (test code = 9.8 mg/dL 8.6-10.6 2962043389) eGFR Calculation mL/min/1.73m2 (Non-) (test code = 9292825570) eGFR Calculation mL/min/1.73m2 () (test code = 7799732872) MADISYN (test code = MADISYN) Association of [...] tests). Lab Interpretation Abnormal (test code = 21114-3) [facility] CenterHepatic Function [facility] (ALB, T.PRO, BILI T, BU/BC, ALT, AST, ALK PHOS)2019-07-28 01:21:00 Test Item Value Reference Range Interpretation Comments TOTAL BILI (test code = 6382976178) 0.3 mg/dL 0.1-1.1 BILI UNCON (test code = 9540149808) 0.1 mg/dL 0.1-1.1 BILI CONJ (test code = 7676691590) 0.0 mg/dL 0-0.3 T PROTEIN (test code = 8020714376) 8.2 g/dL 6.3-8.2 ALBUMIN (test code = 4330230536) 5.0 g/dL 3.5-5 ALK PHOS (test code = 8523570410) 121 U/L 34-122 ALTv (test code = 1742-6) 33 U/L 5-35 AST(SGOT) (test code = 9072010893) 30 U/L 13-40 Lab Interpretation (test code = Normal 77935-5) [facility] CenterRAPID STREP SCREEN FOR GROUP [id number] 01:19:00 Test Item Value Reference Range Interpretation Comments Streptococcus pyogenes (group A) Negative Negative antigen (test code = 26230-6) Lab Interpretation (test code = Normal 41336-0) [facility] CenterXR CHEST 2 [id number] 00:53:20Impression: No acute cardiopulmonary changes. Small sized [...] reviewed this study and agree withthe above report.[facility] (NA, K, CL, CO2, GLUCOSE, BUN, CREATININE, CA)2019-03-11 20:52:00 Test Item Value Reference Range Interpretation Comments NA (test code = 141 mmol/L 135-145 1988924753) K (test code = 3.6 mmol/L 3.5-5 5701847750) CL (test code = 104 mmol/L 98-108 3811228032) CO2 TOTAL (test code = 24 mmol/L 23-31 5344943334) AGAP (test code = 2-16 3353873663) BUN (test code = 19 mg/dL 7-23 3494329015) GLUCOSE (test code = 161 mg/dL 70-110 H 1495147788) CREATININE (test code = 0.51 mg/dL 0.5-1.04 7554897800) CALCIUM (test code = 9.4 mg/dL 8.6-10.6 0354677204) eGFR Calculation mL/min/1.73m2 (Non-) (test code = 8612204833) eGFR Calculation mL/min/1.73m2 () (test code = 4208950462) MADISYN (test code = MADISYN) Association of [...] tests). Lab Interpretation Abnormal (test code = 50741-1) [facility] CenterHep[facility] Function [facility] (ALB, T.PRO, BILI T, BU/BC, ALT, AST, ALK PHOS)2019-03-11 20:52:00 Test Item Value Reference Range Interpretation Comments TOTAL BILI (test code = 3563706009) 0.6 mg/dL 0.1-1.1 BILI UNCON (test code = 0485981692) 0.5 mg/dL 0.1-1.1 BILI CONJ (test code = 4104607291) 0.0 mg/dL 0-0.3 T PROTEIN (test code = 8343396480) 7.7 g/dL 6.3-8.2 ALBUMIN (test code = 3574599904) 4.9 g/dL 3.5-5 ALK PHOS (test code = 3329325796) 61 U/L 34-122 ALT(SGPT) (test code = 6525663811) 26 U/L 9-51 AST(SGOT) (test code = 8412020722) 28 U/L 13-40 Lab Interpretation (test code = Normal 78812-3) [facility] CenterLipase [id number] 20:52:00 Test Item Value Reference Range Interpretation Comments LIPASE (test code = 8990885103) 22 U/L 0-220 Lab Interpretation (test code = Normal 51463-1) [facility] CenteraPTT2019-09-05 20:40:00 Test Item Value Reference [...] seconds. Lab Interpretation Abnormal (test code = 31338-3) [facility] CenterProthrombin Time (PT) / [id number] 20:38:00 Test Item Value Reference Range Interpretation [...] tions. Lab Interpretation (test Normal code = 90403-0) [facility] WITH [id number] 20:33:00 Test Item Value Reference Range Interpretation Comments WBC (test code = See_Comment [Automated 4990-2) message] The sy stem which generated this [...] RDW-SD (test code = 44.3 fL 39-49.9 11043-5) RDW-CV (test code = 12.9 % 12-15.5 788-0) PLT (test code = See_Comment [Automated 777-3) message] The sy stem which generated this result transmitted reference range : 166 - 358 10*3/ ?L. The reference r aiden was not used to interpret this result as normal/abnormal . MPV (test code = 10.9 fL 9.5-12.9 72113-8) NRBC/100 WBC (test See_Comment [Automat ed code = 0356379550) message] The system which generated this result transmitted reference range : 0.0 - 10.0 /100 WBCs. The refer ence range was not u sed to interpret th is result as normal/abnormal . NRBC x10^3 (test code <0.01 See_Comment [Auto mated = 0586069179) message] The s ystem which generated this result transmitted reference range : 10*3/?L. The reference range was not used to interpret this result as normal/abnormal . GRAN MAT (NEUT) % 86.3 % (test code = 770-8) IMM GRAN % (test code 0.50 % = 6368108299) LYMPH % (test code = 8.8 % 736-9) MONO % (test code = 4.0 % 5905-5) EOS % (test code = 0.2 % 713-8) BASO % (test code = 0.2 % 706-2) GRAN MAT x10^3(ANC) 8.24 10*3/uL 1.88-7.09 H (test code = 5379270198) IMM GRAN x10^3 (test 0.05 10*3/uL 0-0.06 code = 4873471441) LYMPH x10^3 (test code 0.84 10*3/uL 1.32-3.29 L = 731-0) MONO x10^3 (test code 0.38 10*3/uL 0.33-0.92 = 742-7) EOS x10^3 (test code = <0.03 0.03-0.39 L 711-2) BASO x10^3 (test code <0.03 0.01-0.07 = 704-7) Lab Interpretation Abnormal (test code = 20461-2) [facility]"
--- NOTE | 2023-02-11 16:32 | RAD REPORT ---
EXAM DESCRIPTION: RADChest Single View02/11/2023 4:05 pm CLINICAL HISTORY: eval for aspiration;Chest pain COMPARISON: Chest Single View dated 01/29/2023; Chest Single View dated 01/25/2023; Chest Single View dated 01/21/2023; Chest Single View dated 01/15/2023 TECHNIQUE: Portable AP view of the chest. FINDINGS: The lungs are clear. No pneumothorax or effusion. The cardiomediastinal contours are unrem arkable. IMPRESSION: No acute cardiopulmonary process.
[2023-02-11 16:41] LABS: Hematocrit 33.4 % (36.0-45.0); Lymphocytes % 30.8 % (15.3-44.8); MCV 90.8 fL (80-100); MPV 8.1 fL (7.6-11.3); Platelets 276 thou/uL (152-406); RBC Red Blood Cell Count 3.67 M/uL (3.86-4.86)
[2023-02-11 17:17] LABS: Potassium 3.3 mEq/L (3.5-5.1); Troponin High Sensitivity 3.4 pg/mL (<58.9)
[2023-02-11] MEDS ORDERED: NA CHLORIDE 0.9% 1,000 ML ONE (18:00)
--- NOTE | 2023-02-11 18:21 | RAD REPORT ---
EXAM DESCRIPTION: CT - Soft Tissue Neck W/Contr CLINICAL HISTORY: dysphagia COMPARISON: No comparisons TECHNIQUE: Thin axial CT images of the neck, performed following intravenous administration of 70 m L Isovue-300. Multiplanar reformats were generated and reviewed. All CT scans are performed using dose optimization technique as appropriate and may include automated exposure control or mA/KV adjustment according to patient size. FINDINGS: Nasopharyngeal tissues are normal in appearance. Fossa Rosenmller are normal. Parapharyngeal fat triangles are symmetric. Tongue base structures are normal. Epiglottis and aryepiglottic folds are normal. Piriform sinuses are well aerated. The vocal cords are normal in appearance. No suspicious adenopathy. Salivary glands are normal in appearance. Upper lung grimm are clear. Included intracranial contents are unremarkable. IMPRESSION: No acute abnormality. No suspicious mucosal mass or adenopathy.
--- NOTE | 2023-02-11 18:24 | EDPHYS ---
Physician Documentation [facility] Name: Dolores Pérez Age: 62 yrs Sex: Female : 1960 Arrival Date: 02/11/2023 Time: 15:24 Bed 2 Private MD: ED Physician Dorian Etienne HPI: 02/11 17:30 This 62 yrs old Female presents to ER via Ambulatory with complaints of trouble rn swallowing. 17:40 The patient presents with dysphagia. Onset: The symptoms/episode began/occurred 2 rn month(s) ago. Severity of symptoms: At their worst the symptoms were moderate, in the emergency department the symptoms are unchanged. Modifying factors: The symptoms are alleviated by nothing, the symptoms are aggravated by swallowing. The patient has experienced similar episodes in the past. The patient has been recently seen by a physician:. Pt reports trouble swallowing for months, has been seen for this, thought to be neurological or TIA, made appt with Dr. Gonzalez, has had CT head as well as MRI. REports continues to cough when eating/drinking/talking and has gotten tired of it so came in. No gross changes. No fever. Was treated for aspiration pneumonia a couple of weeks ago and feels better. . Historical: - Allergies: 15:36 NSAIDS; nj1 15:36 peanuts; nj1 15:36 Prednisone; nj1 15:36 sesame seed; nj1 15:36 Sulfa (Sulfonamide Antibiotics); nj1 - PMHx: 15:36 Anxiety; Asthma; COPD; depressive disorder; diabetes mellitus; High Cholesterol; nj1 Hypertension; Hypothyroidism; Transient cerebral ischemia; - Immunization history:: Client reports receiving the 2nd dose of the Covid vaccine. - Social history:: Smoking status: Patient denies any tobacco usage or history of. - Family history:: not pertinent. - Hospitalizations: : No recent hospitalization is reported. ROS: 17:40 Constitutional: Negative for fever, chills, and weight loss, Eyes: Negative for injury, rn pain, redness, and discharge, Cardiovascular: Negative for palpitations, and edema, Respiratory: Negative for wheezing, and pleuritic chest pain, Abdomen/GI: Negative for abdominal pain, nausea, vomiting, diarrhea, and constipation, MS/Extremity: Negative for injury and deformity, Skin: Negative for injury, rash, and discoloration, Neuro: Negative for headache, weakness, numbness, tingling, and seizure. Exam: 17:40 Constitutional: This is a well developed, well nourished patient who is awake, alert, rn and in no acute distress. Head/Face: Normocephalic, atraumatic. ENT: dry MM Cardiovascular: Regular rate and rhythm. No pulse deficits. Respiratory: . No increased work of breathing, no retractions or nasal flaring. Skin: Warm, dry MS/ Extremity: Pulses equal, no cyanosis. Neurovascular intact. Full, normal range of motion. Equal circumference. Neuro: Awake and alert, GCS 15, oriented to person, place, time, and situation. Cranial nerves II-XII grossly intact. Vital Signs: 15:32 BP 143 / 76; Pulse 78; Resp 18; Temp 98.6; Pulse Ox 100% on R/A; Weight 58.06 kg; nj1 Height 5 ft. 7 in. ; Pain 9/10; 17:54 BP 135 / 65; Pulse 69; Resp 18; Pulse Ox 96% on R/A; ld1 18:59 BP 175 / 81; Pulse 77; Resp 18; Pulse Ox 98% on R/A; ld1 19:45 BP 132 / 64; Pulse 64; Resp 16; Pulse Ox 98% on R/A; jb4 15:32 Body Mass Index 20.05 (58.06 kg, 170.18 cm) nj1 15:32 Pain Scale: Adult nj1 MDM: 15:41 Patient medically screened. rn 18:22 Differential diagnosis: neck mass, neuromuscular problem, vocal cord problem. Data rn reviewed: vital signs, nurses notes, lab test result(s), EKG, radiologic studies, CT scan, and as a result, I will discharge patient. Counseling: I had a detailed discussion with the patient and/or guardian regarding: the historical points, exam findings, and any diagnostic results supporting the discharge/admit diagnosis, lab results, radiology results, the need for outpatient follow up, to return to the emergency department if symptoms worsen or persist or if there are any questions or concerns that arise at home. Special discussion: I discussed with the patient/guardian in detail that at this point there is no indication for admission to the hospital. It is understood, however, that if the symptoms persist or worsen the patient needs to return immediately for re-evaluation. Based on the history and exam findings, there is no indication for further emergent testing or inpatient evaluation. I discussed with the patient/guardian the need to see the neurologist for further evaluation of the symptoms. 02/11 15:51 Order name: CBC with Diff; Complete Time: 17:14 rn 02/11 15:51 Order name: Basic Metabolic Panel; Complete Time: 17:26 rn 02/11 15:51 Order name: Troponin High Sensitivity; Complete Time: 17:26 rn 02/11 19:33 Order name: UAM; Complete Time: 20:02 jb4 02/11 20:03 Order name: Urine Culture EDMS 02/11 15:51 Order name: CT Soft Tissue Neck W/contr; Complete Time: 18:22 rn 02/11 15:51 Order name: XRAY Chest (1 view); Complete Time: 17:14 rn 02/11 15:51 Order name: EKG; Complete Time: 15:52 rn 02/11 15:51 Order name: IV Start; Complete Time: 16:33 rn 02/11 15:51 Order name: EKG - Nurse/Tech; Complete Time: 16:33 rn Administered Medications: 17:54 Drug: NS 0.9% IV 1000 ml Route: IV; Rate: 1000 ml; Site: right antecubital; ld1 20:03 Drug: Nitrofurantoin PO 100 mg Route: PO; jb4 Disposition Summary: 02/11/23 18:23 Discharge Ordered Location: Home rn Problem: an ongoing problem rn Symptoms: are unchanged rn Condition: Stable rn Diagnosis - Dysphagia, unspecified rn Followup: rn - With: - When: As needed - Reason: Recheck today's complaints, Re-evaluation by your physician Discharge Instructions: - Discharge Summary Sheet rn - Dysphagia rn - Aspiration Precautions, Adult rn Forms: - Medication Reconciliation Form rn - Thank You Letter rn - Antibiotic 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 Head/Face: Normocephalic, atraumatic. Cardiovascular: Regular rate and rhythm. No pulse deficits. Respiratory: . No increased work of breathing, no retractions or nasal flaring. Skin: Warm, dry MS/ Extremity: Pulses equal, no cyanosis. Neurovascular intact. Full, normal range of motion. Equal circumference. Neuro: Awake and alert, GCS 15, oriented to person, place, time, and situation. Cranial nerves II-XII grossly intact. rn
--- NOTE | 2023-02-11 18:24 | ER ---
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 After that, she nj1 started having chest pain on/off. She also co stanley leg pain for about a month. States she also has trouble swallowing since January 12, told she was going to be referred to neurologist. Coronavirus screen: Vaccine status: Patient reports receiving the 2nd dose of the covid vaccine. Ebola Screen: Patient denies travel to an Ebola-affected area in the 21 days before illness onset. Initial Sepsis Screen: Does the patient meet any 2 criteria? No. Patient's initial sepsis screen is negative. Does the patient have a suspected source of infection? No. Patient's initial sepsis screen is negative. Risk Assessment: Do you want to hurt yourself or someone else? Patient reports no desire to harm self or others. Onset of symptoms was January 12, 2023. 15:32 Method Of Arrival: Ambulatory nj 15:32 Acuity: AARON 3 nj1 Historical: - Allergies: 15:36 NSAIDS; nj1 15:36 peanuts; nj1 15:36 Prednisone; nj1 15:36 sesame seed; nj1 15:36 Sulfa (Sulfonamide Antibiotics); nj1 - PMHx: 15:36 Anxiety; Asthma; COPD; depressive disorder; diabetes mellitus; High Cholesterol; nj1 Hypertension; Hypothyroidism; Transient cerebral ischemia; - Immunization history:: Client reports receiving the 2nd dose of the Covid vaccine. - Social history:: Smoking status: Patient denies any tobacco usage or history of. - Family history:: not pertinent. - Hospitalizations: : No recent hospitalization is reported. Screenin:54 [facility] ED Fall Risk Assessment (Adult) History of falling in the last 3 months, ld1 including since admission No falls in past 3 months (0 pts). Abuse screen: Denies threats or abuse. Denies injuries from another. Nutritional screening: No deficits noted. Tuberculosis screening: No symptoms or risk factors identified. Assessment: 17:54 General: Appears in no apparent distress. comfortable, Behavior is calm, cooperative, ld1 appropriate for age. Pain: Denies pain. Neuro: Level of Consciousness is awake, alert, obeys commands, Oriented to person, place, time, situation. Cardiovascular: Capillary refill < 3 seconds Patient's skin is warm and dry. Rhythm is sinus rhythm. Respiratory: Airway is patent Respiratory effort is even, unlabored. GI: Abdomen is flat, non-distended. : No signs and/or symptoms were reported regarding the genitourinary system. EENT: Reports difficulty swallowing food X 4 months. Derm: No signs and/or symptoms reported regarding the dermatologic system. Musculoskeletal: No signs and/or symptoms reported regarding the musculoskeletal system. 18:59 Reassessment: Patient appears in no apparent distress at this time. No changes from ld1 previously documented assessment. Patient and/or family updated on plan of care and expected duration. Pain level reassessed. Patient is alert, oriented x 3, equal unlabored respirations, skin warm/dry/pink. 19:20 Reassessment: Patient appears in no apparent distress at this time. Patient and/or jb4 family updated on plan of care and expected duration. Pain level reassessed. Patient is alert, oriented x 3, equal unlabored respirations, skin warm/dry/pink. Pt now reporting blood when wiping. Dr hess is aware. D/c pending urine results. 20:09 Reassessment: Patient appears in no apparent distress at this time. Patient and/or jb4 family updated on plan of care and expected duration. Pain level reassessed. Patient is alert, oriented x 3, equal unlabored respirations, skin warm/dry/pink. Vital Signs: 15:32 BP 143 / 76; Pulse 78; Resp 18; Temp 98.6; Pulse Ox 100% on R/A; Weight 58.06 kg; nj1 Height 5 ft. 7 in. ; Pain 9/10; 17:54 BP 135 / 65; Pulse 69; Resp 18; Pulse Ox 96% on R/A; ld1 18:59 BP 175 / 81; Pulse 77; Resp 18; Pulse Ox 98% on R/A; ld1 19:45 BP 132 / 64; Pulse 64; Resp 16; Pulse Ox 98% on R/A; jb4 15:32 Body Mass Index 20.05 (58.06 kg, 170.18 cm) nj1 15:32 Pain Scale: Adult [facility] ED Course: 15:27 Patient arrived in ED. im 15:36 Triage completed. nj1 15:37 Arm band placed on right wrist. nj1 15:41 Dorian Etienne MD is Attending Physician. rn 16:06 XRAY Chest (1 view) In Process Unspecified. EDMS 16:33 Troponin High Sensitivity Sent. bc6 16:33 Basic Metabolic Panel Sent. bc6 16:33 CBC with Diff Sent. bc6 16:33 Inserted saline lock: 22 gauge in right antecubital area, using aseptic technique. bc6 Blood collected. 17:41 CT Soft Tissue Neck W/contr In Process Unspecified. EDMS 17:54 Cornelia Yi, RN is Primary Nurse. ld1 17:54 Patient has correct armband on for positive identification. Placed in gown. Bed in low ld1 position. Call light in reach. Side rails up X2. 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 Pulse ox on. NIBP on. Door closed. Noise minimized. Warm blanket given. 17:54 No provider procedures requiring assistance completed. Patient maintains SpO2 ld1 saturation greater than 95% on room air. 18:23 Davide Gonzalez MD is Referral Physician. rn 20:10 IV discontinued, intact, bleeding controlled, No redness/swelling at site. Pressure jb4 dressing applied. Administered Medications: 17:54 Drug: NS 0.9% IV 1000 ml Route: IV; Rate: 1000 ml; Site: right antecubital; ld1 20:03 Drug: Nitrofurantoin PO 100 mg Route: PO; jb4 Outcome: 18:23 Discharge ordered by . rn 20:11 Discharged to home via wheelchair. jb4 20:11 Condition: stable 20:11 Discharge instructions given to patient, Instructed on discharge instructions, follow up and referral plans. medication usage, Demonstrated understanding of instructions, follow-up care, medications, Prescriptions given X 1. 20:11 Patient left the ED. jb4 Signatures: Dispatcher [employer] EDMS Dorian Etienne MD MD rn Bryson, James, RN RN jb4 Cornelia Yi RN RN ld1 Leeanna Werner 6 Lisa Velazquez RN RN nj1 Jenn Brady Corrections: (The following items were deleted from the chart) 19:57 19:20 Reassessment: Patient appears in no apparent distress at this time. Patient jb4 and/or family updated on plan of care and expected duration. Pain level reassessed. Patient is alert, oriented x 3, equal unlabored respirations, skin warm/dry/pink. Pt now reporting blood when wiping. Dr hess is aware. jb4
[2023-02-11 19:54] LABS: Specific Gravity 1.013 (1.005-1.030); Urine Bacteria None Seen /HPF (<20); Urine Bilirubin NEGATIVE (Negative); Urine Blood 3+ (OVER) (Negative); Urine Clarity Clear (Clear); Urine Color Colorless (Yellow); Urine Glucose NEGATIVE (Negative); Urine Mucus Slight /HPF (None Seen); Urine Protein NEGATIVE (Negative); Urine RBC <5 /HPF (None Seen); Urine Urobilinogen Normal (Normal)
[2023-02-11] MEDS ORDERED: NITROFURAN MACRO 100 MG CAP PO ONE (20:12)
[2023-02-11 20:28] VITALS: TEMP 98.6
[2023-02-11 20:38] VITALS: O2SAT 98
[2023-02-11 20:40] VITALS: BP 132/64
--- NOTE | 2023-02-12 18:08 | EKG ---
Test Date: 2023-02-11 Test Time: 16:38:39 Avionics Repair Technician: ARNAV MEASUREMENT RESULTS: Intervals: Rate: 67 KS: 142 QRSD: 94 QT: 418 QTc: 441 Lloyd: P: 62 KS: 142 QRS: 69 T: 58 INTERPRETIVE STATEMENTS: Normal sinus rhythm Nonspecific ST abnormality Abnormal ECG Compared to ECG 01/29/2023 22:15:24 ST (T wave) deviation now present Electronically Signed On 02-12-23 18:07:12 CDT by Stephen Childress
== END 2023-02-11 20:11 | disposition home or self-care (01) ==
LOC: ER 15:24
DX: R13.10 Dysphagia, unspecified (principal); I10 Essential (primary) hypertension; Z86.73 Personal history of transient ischemic attack (TIA), and cerebral infarction without residual deficits; Z88.2 Allergy status to sulfonamides; Z88.6 Allergy status to analgesic agent; Z88.8 Allergy status to other drugs, medicaments and biological substances; Z91.010 Allergy to peanuts; Z91.018 Allergy to other foods
CPT/HCPCS: 93005; 87088; 85025; 81001; 87086; 80048; 36415; 84484; 70491; 71045; 99285; Q9967; J7030

== ENCOUNTER 2023-03-09 16:52 | Emergency (ER) | payer OTHER ==
--- OUTSIDE RECORDS SUMMARY | 2023-03-09 17:00 | XMS REPORT | Continuity of Care Document ---
:1960 Author Organization [facility] [place] [facility] t Address [address] [facility] [address] [place] [address] Care Team Providers Name Role Phone PAULINA DUNHAM Primary Care Physician Unavailable Neida DUGGAN Attending Clinician Unavailable Neida Jiménez Attending Clinician Susan Rodriguez Attending Clinician Unknown, Attending Attending Clinician Unavailable SUSAN LEE Attending Clinician Unavailable Doctor Unassigned, [place] Attending Clinician Unavailable Only, Ang Db Test Attending Clinician Unavailable Monik Charles MD Attending Clinician MONIK CHARLES Attending Clinician Unavailable ALEX OCONNELL Attending Clinician Unavailable NewtonAlex Alarcon Attending Clinician SHERRILL CONNOR Attending Clinician Unavailable Sherrill Connor MD Attending Clinician CAMERON DALTON Attending Clinician Unavailable Cameron Nick Attending Clinician Nirmala Daniels RN Attending Clinician Unavailable DARIUS LEDESMA Attending Clinician Unavailable Darius Barragan Attending Clinician JOSE ALEJANDRO CASTANO Attending Clinician Unavailable Jose Alejandro Rosas Attending Clinician MARCELINA CHE Attending Clinician Unavailable Marcelina Che MD Attending Clinician NICOLE ISSA Attending Clinician Unavailable Lab, Adc Fam Pob I Attending Clinician Unavailable Nicole Miller Attending Clinician Diana Berg DO Attending Clinician Mariangel Miller Attending Clinician Neida DUGGAN Admitting Clinician Unavailable ALEX OCONNELL Admitting Clinician Unavailable CAMERON DALTON Admitting Clinician Unavailable DARIUS LEDESMA Admitting Clinician Unavailable JOSE ALEJANDRO CASTANO Admitting Clinician Unavailable MARCELINA CHE Admitting Clinician Unavailable Marcelina Che MD Admitting Clinician Payers Payer Name Policy Type Policy Number Effective Date Expiration Date Teodora FALK II [id number] 2016 00:00:00 Problems Condition Condition Condition Status Onset Resolution Last Treating Co mments Source Name Details Category Date Date Treatment Clinician Date Primary Primary Disease Active 2020-07 Univers hypertensi hypertensi 1-14 it y of on on 00:00: [place] [facility] Other Other Disease Active 2020-07 [facility] hyperlipid hyperlipid 1-14 it y of emia emia 00:00: 00 Medical [facility] 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 1-14 ity of ischemic ischemic 00:00: [place] stroke stroke 00 Medical Branch Chest pain Chest pain Disease Active 2020-07 U nivers 1-13 ity of 00:00: 00 [facility] Primary Primary Disease Active Univers hypothyroi hypothyroi 4-10 it y of dism dism 00:00: Medical Branch Primary Primary Disease Active Univers hypothyroi hypothyroi 4-10 it y of dism dism 00:00: 00 [facility] Allergies, Adverse Reactions, Alerts Allergy Allergy Status Severity Reaction(s) Onset Inactive Treating Comm ents Source Name Type Date Date Clinician ALBA DRUG Active Anaphylaxis Unive rs INGREDI 7-03 ity of 00:00: [place] 00 Medical Branch Merrill Propensi Active Anaphylaxis Uni vers ty to 7-03 ity of adverse 00:00: [place] reaction 00 Medical s Branch Naproxen Propensi Active Rash 2020-07 Able to Unive rs Sodium ty to 1-13 take ity of adverse 00:00: ibuprofen [place] reaction 00 and asa Medical s Branch Metformi Propensi Active Diarrhea 2020-07 Univ ers n ty to 13 ity of adverse 00:00: [place] reaction 00 Medical s Branch NAPROXEN DRUG Active Rash 2020-07 Univers SODIUM INGREDI 13 ity of 00:00: [place] 00 Medical Branch METFORMI DRUG Active Diarrhea 2020-07 Univer s N INGREDI 07-19 ity of 00:00: [place] 00 Medical Branch SESAME Drug Active Anaphylaxis Unive rs [...] ics) s Branch Sulfa Propensi Active Rash 2017-0 Univers (Sulfona ty to 4-10 ity of mide adverse 00:00: [place] Antibiot reaction 00 Medica l ics) s Branch Social History Social Habit Start Date Stop Date Quantity Comments Source Gender identity [facility] Social 2023-02-26 2023-02-26 Univers ity of function 00:00:00 00:00:00 [facility] Exposure to 2022-08-14 2022-08-24 Not sure [facility] SARS-CoV-2 (event) 00:00:00 09:35:00 [facility] Tobacco use and 2022-08-24 2022-08-24 Smokeless Universit y of exposure 00:00:00 00:00:00 tobacco non-user [facility] Sex Assigned At [birth year] Universit y of 00:00:00 00:00:00 [facility] Smoking Status Start Date Stop Date Source Never smoked tobacco [facility] Medications Ordered Filled Start Stop Current Ordering Indication Dosage Frequency Signature Comments Components Source Medication Medication Date Date Medication? Clinician (SIG) Name Name bromphenira Yes [id number] 5mL Take 5 mL Univers mine-pseudo 2-18 by mouth 4 it y of ephedrine-D 00:00[place] (four[place] (BROMFED 00 times Medical DM) 2-30-10 daily as Bran ch mg/5 mL needed for syrup Congestion /Allergies . bromphenira Yes [id number] 5mL Take 5 mL Univers mine-pseudo 2-18 by mouth 4 it y of ephedrine-D 00:00: (four[place] M (BROMFED 00 times Medical DM) 2-30-10 daily as Bran ch mg/5 mL needed for syrup Congestion /Allergies . benzonatate Yes [id number] 100mg Take 1 Univers 100 mg 7-03 capsule by ity of capsule 00:00: mouth 3 [place] 00 (three) Medical times [place] daily as needed for Cough. loratadine Yes [id number] 10mg Take 1 U nivers (CLARITIN) 7-03 tablet by ity of 10 mg 00:00: mouth at [place] tablet 00 bedtime as Medical needed for Branch Allergies. benzonatate 2022-0 Yes [id number] 100mg Take 1 Univers 100 mg 7-03 capsule by ity of capsule 00:00: mouth 3 [place] 00 (three) Medical times Branch daily as needed for Cough. loratadine 2-0 Yes [id number] 10mg Take 1 U nivers (CLARITIN) 7-03 tablet by ity of 10 mg 00:00: mouth at [place] tablet 00 bedtime as Medical needed for Branch Allergies. benzonatate 2-0 Yes [id number] 100mg Take 1 Univers 100 mg 7-03 capsule by ity of capsule 00:00: mouth 3 [place] 00 (three) Medical times Branch daily as needed for Cough. loratadine 2-0 Yes [id number] 10mg Take 1 U nivers (CLARITIN) 7-03 tablet by ity of 10 mg 00:00: mouth at [place] tablet 00 bedtime as Medical needed for Branch Allergies. benzonatate 2-0 Yes [id number] 100mg Take 1 Univers 100 mg 7-03 capsule by ity of capsule 00:00: mouth 3 (three) Medical times Branch daily as needed for Cough. loratadine 2-0 Yes [id number] 10mg Take 1 U nivers (CLARITIN) 7-03 tablet by ity of 10 mg 00:00: mouth at [place] tablet 00 bedtime as Medical needed for Branch Allergies. benzonatate 2-0 Yes [id number] 100mg Take 1 Univers 100 mg 7-03 capsule by ity of capsule 00:00: mouth 3 00 (three) Medical times Branch daily as needed for Cough. loratadine 2-0 Yes [id number] 10mg Take 1 U nivers (CLARITIN) 7-03 tablet by ity of 10 mg 00:00: mouth at [place] tablet 00 bedtime as Medical needed for Branch Allergies. benzonatate 2022-0 Yes [id number] 100mg Take 1 Univers 100 mg 7-03 capsule by ity of capsule 00:00: mouth 3 [place] 00 (three) Medical times Branch daily as needed for Cough. loratadine 2022-0 Yes [id number] 10mg Take 1 U nivers (CLARITIN) 7-03 tablet by ity of 10 mg 00:00: mouth at [place] tablet 00 bedtime as Medical needed for Branch Allergies. benzonatate 2021-0 Yes [id number] 100mg Take 1 Univers 100 mg 2-01 capsule by ity of capsule 00:00: mouth 3 (three) Medical times Branch daily as needed for Cough. benzonatate 2021-0 Yes [id number] 100mg Take 1 Univers 100 mg 2-01 capsule by ity of capsule 00:00: mouth 3 (three) Medical times Branch daily as needed for Cough. benzonatate 2021-0 Yes [id number] 100mg Take 1 Univers 100 mg 2-01 capsule by ity of capsule 00:00: mouth (three) Medical times Branch daily as needed for Cough. benzonatate 2021-0 Yes [id number] 100mg Take 1 Univers 100 mg 2-01 capsule by ity of capsule 00:00: mouth (three) Medical times Branch daily as needed for Cough. benzonatate 2021-0 Yes [id number] 100mg Take 1 Univers 100 mg 2-01 capsule by ity of capsule 00:00: mouth (three) Medical times Branch daily as needed for Cough. benzonatate 2021-0 Yes [id number] 100mg Take 1 Univers 100 mg 2-01 capsule by ity of capsule 00:00: mouth (three) Medical times Branch daily as needed for Cough. benzonatate 2021-0 Yes [id number] 100mg Take 1 Univers 100 mg 2-01 capsule by ity of capsule 00:00: mouth (three) Medical times Branch daily as needed for Cough. benzonatate 2021-0 Yes [id number] 100mg Take 1 Univers 100 mg 2-01 capsule by ity of capsule 00:00: mouth (three) Medical times Branch daily as needed for Cough. benzonatate 2021-0 Yes [id number] 100mg Take 1 Univers 100 mg 2-01 capsule by ity of capsule 00:00: mouth (three) Medical times Branch daily as needed for Cough. benzonatate 2-0 Yes [id number] 100mg Take 1 Univers 100 mg 2-01 [...] Therapy: Other (see Comments) iopamidol 2020-07- No [id number] 120mL 120 mL, Univers (ISOVUE 2-25 12-24 Intravenou ity o f 370-500 mL) 00:15: 23:08 s, ONCE, 1 [place] injection 00 :00 dose, On Medica l 120 mL Fri Branch 06/29/21 at 1815, Routine amoxicillin 2020-07- No [id number] 1{tbl} Take 1 Univers -clavulanat 2-24 -04 [...] Indication s: acute pain ondansetron 2020-07- No [id number] 4mg Take 1 Univers 4 mg tablet 2-24 12-30 tablet by it y of 00:00: 05:59 mouth [place] 00 :00 every 8 Medical (eight) Branch hours for 5 days. atorvastati 2020-07 Yes 10mg 10 mg, Univ ers n (LIPITOR) 1-15 Oral, QHS, it y of tablet 10 03:00: First dose [place] mg 00 on [facility] 05/20/21 Branch at 2100, Until Discontinu ed, Routine atorvastati 2020-07 Yes 10mg Take 10 mg Univers n 10 mg 1-14 by mouth ity of tablet 17:23: at [place] 01 bedtime. Medical Branch spironolact 2020-07 Yes [...] by ity of (METFORMIN 17:23: mouth at [place] as ORAL) bedtime. Medical Branch atorvastati 2020-07 [...] 40 mg 00 First dose Medical on [facility] 05/20/21 at 0900, Until Discontinu ed, Routine clopidogreL 2020-07 Yes 75mg 75 mg, Univ ers (PLAVIX) 1-14 Oral, QAM, ity o f tablet 75 15:00: First dose [place] mg 00 on [facility] 05/20/21 Branch at 0900, Until Discontinu ed, Routine ALPRAZolam 2020-07 Yes .5mg 0.5 mg, Univ ers (XANAX) 1-14 Oral, ity of tablet 0.5 15:00: DAILY, [place] mg 00 First dose Medical on [facility] 05/20/21 at 0900, Until Discontinu ed, Routine spironolact 2020-07 Yes 25mg 25 mg, Univ ers one 1-14 Oral, BID, ity of (ALDACTONE) 14:00: First dose [place] tablet 25 00 on [facility] mg 05/20/21 Branch at 0800, Until Discontinu ed, Routine Sliding 2020-07 Yes Subcutaneo Univ ers Scale 1-14 us, AC, ity of Insulin-Reg 13:30: First dose [place] ular + Fsbg [facility] Branch at 0730, Until Discontinu ed, Routine levothyroxi 2020-07 Yes 100ug 100 mcg, U nivers ne 1-14 Oral, ity of (SYNTHROID) 12:00: QAM-0600, [place] tablet 100 00 First dose Med ical mcg on [facility] 05/20/21 at 0600, Until Discontinu ed, Routine pantoprazol 2020-07 Yes 40mg 40 mg, Univ ers e 1-14 Oral, ity of (PROTONIX) 06:30: DAILY, [place] EC tablet 00 First dose Medi hermelindo 40 mg (after Branch last modificati on) on [place] 05/20/21 at 0030, Until Discontinu ed cyclobenzap 2020-07 Yes 10mg 10 mg, Univ ers rine 1-14 Oral, ity of (FLEXERIL) 06:12: TIDPRN, [place] tablet 10 13 Starting Medica l mg on [facility] 05/20/21 at 0012, Until Discontinu ed, Routine, Muscle Spasms, leg pain polyethylen 2020-07 Yes 17g 17 g, Unive rs e glycol 1-14 Oral, ity of 3350 powder 06:04: [id number], [place] 17 g 16 Starting Medical on [facility] 05/20/21 at 0004, Until Discontinu ed, Routine, Constipati on glucagon 2020-07 Yes 1mg 1 mg, Univers (GLUCAGEN -14 Intramuscu ity of DIAGNOSTIC 05:29: lar, PRN, [place] KIT) 29 Starting Medical injection 1 on [facility] 05/19/21 at 2329, Until Discontinu ed, JEFFREY, Blood Glucose < or = 70 mg/dL and patient is unable to swallow or has mental changes. dextrose 50 2020-07 Yes 25mL 25 mL, Univ ers % in water 14 Slow IV ity of (D50W) 05:29: Push, PRN, [place] injection 29 Starting Medica l 25 mL on [facility] 05/19/21 at 2329, Until Discontinu ed, JEFFREY, Blood Glucose < or = 70 mg/dL and patient is unable to swallow or has mental status changes. ondansetron 2020-07 Yes 4mg 4 mg, Slow Univers (ZOFRAN 1-14 IV Push, ity of (PF)) 05:29: Q6HPRN, [place] injection 4 21 Starting Medi hermelindo mg on [facility] 05/19/21 at 2329, Until Discontinu ed, Routine, Nausea and Vomiting (N/V) morpHINE 2020-07 No 2mg 2 mg, Slow Un brice injection 2 14 11-15 IV Push, ity of mg 05:29: 05:28 Q4HPRN, [place] 11 :11 Starting Medical on [facility] Branch 05/19/21 at 2329, Until 05/20/21 at 2328, Routine, Pain (scale 7-10), Chest pain traMADoL 2020-07- No 50mg 50 mg, Univer s (ULTRAM) 07-2016 Oral, ity of tablet 50 05:29: 05:28 Q8HPRN, [place] mg 08 :08 Starting Medical on [facility] Branch 05/19/21 at 2329, Until 05/21/21 at 2328, Routine, Pain (scale 4-6) acetaminoph 2020-07 Yes 650mg 650 mg, Un brice en 14 Oral, ity of (TYLENOL) 05:29: Q6HPRN, [place] tablet 650 05 Starting Medic al mg on [facility] Branch 05/19/21 at 2329, Until Discontinu ed, Routine, Pain (scale 1-3) omeprazole 2020-07- No 20mg Take 20 mg Univers 20 mg 07-19 by mouth ity of capsule 23:30: 00:00 daily. [place] 33 :00 [facility] guaiFENesin 2020- No 100mg 100 mg, U nivers 100 mg/5 mL 09-14 Oral, ity of solution 05:00: 16:59 ONCE, 1 [place] 100 mg 00 :00 dose, Fri [facility] 09/13/20 at Branch 2300, Routine ketorolac 2020- No 30mg 30 mg, Unive rs (TORADOL) 09-1411 Slow IV ity of injection 03:30: 02:27 Push, [place] 30 mg 00 :00 ONCE, 1 Medical dose, [facility] 09/13/20 at 2130, JEFFREY
Fa culty member approving Restricted medication : DIANA BERG benzonatate Yes [id number] 100mg Take 1 Univers 100 mg 3-10 capsule by ity of capsule 00:00: mouth 3 [place] 00 (three) Medical times Branch daily as needed for Cough. benzonatate Yes [id number] 100mg Take 1 Univers 100 mg 3-10 capsule by ity of capsule 00:00: mouth 3 [place] 00 (three) Medical times Branch daily as needed for Cough. benzonatate 2020- No [id number] 100mg Take 1 Univers 100 mg 09-13- capsule by ity of capsule 00:00: 00:00 mouth 3 [place] 00 :00 (three) Medical times Branch daily as needed for Cough. ipratropium 2019- No 6mL 6 mL, Univ ers -albuterol 07-28 Inhalation it y of (DUONEB) 02:15: 01:21 , ONCE, 1 [place] as 0.5 mg-3 00 :00 dose, Tue Medica l mg(2.5 mg 07/27/19 at Bran ch base)/3 mL 2014, nebulizer Routine solution 6 mL codeine-gua 0 2019- No 10mL 10 mL, Uni vers ifenesin 07-28 Oral, ity of (ROBITUSSIN 01:30: 00:55 ONCE, 1 [place] AC) 10-100 00 :00 dose, Tue Medi hermelindo mg/5 mL 07/27/19 at Branch solution 10 1929, JEFFREY mL codeine-gua 2019-0 Yes [id number] 10mL Take 10 mL Univers ifenesin -21 by mouth ity of 10-100 mg/5 00:00: every 6 [place] as mL solution 00 (six) Medical hours as Branch needed for Cough. albuterol 2020-0 Yes [id number] 2.5mg Inhale 3 Univers 2.5 mg /3 1-21 mL every 4 ity of mL (0.083 00:00: (four) [place] %) 00 hours as Medical nebulizer needed for Bran ch solution Wheezing or Shortness of Breath. May also nebulize one extra every 6 hours. albuterol 2020-0 Yes [id number] 2.5mg Inhale 3 Univers 2.5 mg /3 1-21 mL every 4 ity of mL (0.083 00:00: (four) [place] %) 00 hours as Medical nebulizer needed for Bran ch solution Wheezing or Shortness of Breath. May also nebulize one extra every 6 hours. albuterol 2020-0 Yes [id number] 2.5mg Inhale 3 Univers 2.5 mg /3 1-21 mL every 4 ity of mL (0.083 00:00: (four) [place] %) 00 hours as Medical nebulizer needed for Bran ch solution Wheezing or Shortness of Breath. May also nebulize one extra every 6 hours. albuterol 2020-0 Yes [id number] 2.5mg Inhale 3 Univers 2.5 mg /3 1-21 mL every 4 ity of mL (0.083 00:00: (four) [place] %) 00 hours as Medical nebulizer needed for Bran ch solution Wheezing or Shortness of Breath. May also nebulize one extra every 6 hours. albuterol 2020-0 Yes [id number] 2.5mg Inhale 3 Univers 2.5 mg /3 1-21 mL every 4 ity of mL (0.083 00:00: (four) [place] %) 00 hours as Medical nebulizer needed for Bran ch solution Wheezing or Shortness of Breath. May also nebulize one extra every 6 hours. albuterol 2020-0 Yes [id number] 2.5mg Inhale 3 Univers 2.5 mg /3 1-21 mL every 4 ity of mL (0.083 00:00: ([facility]) [place] %) 00 hours as Medical nebulizer needed for Bran ch solution Wheezing or Shortness of Breath. May also nebulize one extra every 6 hours. albuterol 2020-0 Yes [id number] 2.5mg Inhale 3 Univers 2.5 mg /3 1-21 mL every 4 ity of mL (0.083 00:00: (four) [place] %) 00 hours as Medical nebulizer needed for Bran ch solution Wheezing or Shortness of Breath. May also nebulize one extra every 6 hours. albuterol 2020-0 Yes [id number] 2.5mg Inhale 3 Univers 2.5 mg /3 1-21 mL every 4 ity of mL (0.083 00:00: (four) [place] %) 00 hours as Medical nebulizer needed for Bran ch solution Wheezing or Shortness of Breath. May also nebulize one extra every 6 hours. albuterol 2020-0 Yes [id number] 2.5mg Inhale 3 Univers 2.5 mg /3 1-21 mL every 4 ity of mL (0.083 00:00: (four) [place] %) 00 hours as Medical nebulizer needed for Bran ch solution Wheezing or Shortness of Breath. May also nebulize one extra every 6 hours. albuterol 2020-0 Yes [id number] 2.5mg Inhale 3 Univers 2.5 mg /3 1-21 mL every 4 ity of mL (0.083 00:00: (four) [place] %) 00 hours as Medical nebulizer needed for Bran ch solution Wheezing or Shortness of Breath. May also nebulize one extra every 6 hours. albuterol 2020-0 Yes [id number] 2.5mg Inhale 3 Univers 2.5 mg /3 1-21 mL every 4 ity of mL (0.083 00:00: (four) [place] %) 00 hours as Medical nebulizer needed for Bran ch solution Wheezing or Shortness of Breath. May also nebulize one extra every 6 hours. albuterol 2020-0 Yes [id number] 2.5mg Inhale 3 Univers 2.5 mg /3 1-21 mL every 4 ity of mL (0.083 00:00: (four) [place] %) 00 hours as Medical nebulizer needed for Bran ch solution Wheezing or Shortness of Breath. May also nebulize one extra every 6 hours. albuterol 2020-0 Yes [id number] 2.5mg Inhale 3 Univers 2.5 mg /3 1-21 mL every 4 ity of mL (0.083 00:00: (four) [place] %) 00 hours as Medical nebulizer needed for Bran ch solution Wheezing or Shortness of Breath. May also nebulize one extra every 6 hours. albuterol 2020-0 Yes [id number] 2.5mg Inhale 3 Univers 2.5 mg /3 1-21 mL every 4 ity of mL (0.083 00:00: (four) [place] %) 00 hours as Medical nebulizer needed for Bran ch solution Wheezing or Shortness of Breath. May also nebulize one extra every 6 hours. albuterol 2020-0 Yes [id number] 2.5mg Inhale 3 Univers 2.5 mg /3 1-21 mL every 4 ity of mL (0.083 00:00: (four) [place] %) 00 hours as Medical nebulizer needed for Bran ch solution Wheezing or Shortness of Breath. May also nebulize one extra every 6 hours. albuterol 2020-0 Yes [id number] 2.5mg Inhale 3 Univers 2.5 mg /3 1-21 mL every 4 ity of mL (0.083 00:00: (four) [place] %) 00 hours as Medical nebulizer needed for Bran ch solution Wheezing or Shortness of Breath. May also nebulize one extra every 6 hours. codeine-gua 2020- No [id number] 10mL Take 10 mL Univers ifenesin 07-27 03-10 by mouth ity of 10-100 mg/5 00:00: 00:00 every 6 [place] mL solution 00 :00 (six) Medical hours as Branch needed for Cough. ondansetron 2018- No 4mg 4 mg, Slow Univers (ZOFRAN 03-11 09-05 IV Push, ity of (PF)) 20:30: 19:53 ONCE, 1 [place] injection 4 00 :00 dose, [place] Med ical mg 03/11/19 at Branch 1530, JEFFREY NaCl 0.9% 2018- No 1000mL at 999 Uni vers (NS) bolus 03-1105 mL/hr, ity of infusion 19:30: 20:56 1,000 mL, [place] as 1,000 mL 00 :00 IV Medical Infusion, Branch ONCE, 1 dose, [place] 03/11/19 at 1430, JEFFREY dicyclomine 2018- Yes [id number] 10mg Take 1 Univers (BENTYL) 10 9-05 capsule by it y of mg capsule 00:00: mouth 4 [place] 00 (four) Medical times Branch daily. ondansetron 2018- Yes [id number] 4mg Take 1 Univers 4 mg 9-05 tablet by ity of disintegrat 00:00: mouth [place] ing tablet 00 every 4 Medica l (four) Branch hours as needed for Nausea and Vomiting (N/V). dicyclomine 2019-0 Yes [id number] 10mg Take 1 Univers (BENTYL) 10 9-05 capsule by it y of mg capsule 00:00: mouth 4 [place] 00 (four) Medical times Branch daily. ondansetron 2019-0 Yes [id number] 4mg Take 1 Univers 4 mg 9-05 tablet by ity of disintegrat 00:00: mouth [place] ing tablet 00 every 4 Medica l (four) Branch hours as needed for Nausea and Vomiting (N/V). dicyclomine 2019-0 Yes [id number] 10mg Take 1 Univers (BENTYL) 10 9-05 capsule by it y of mg capsule 00:00: mouth 4 [place] 00 (four) Medical times Branch daily. ondansetron Yes [id number] 4mg Take 1 Univers 4 mg 9-05 tablet by ity of disintegrat 00:00: mouth [place] ing tablet 00 every 4 Medica l (four) Branch hours as needed for Nausea and Vomiting (N/V). dicyclomine 2020- No [id number] 10mg Take 1 Univers (BENTYL) 10 9-05 03-10 capsule by i ty of mg capsule 00:00: 00:00 mouth 4 [place] as 00 :00 (four) Medical times Branch daily. ondansetron 2020- No [id number] 4mg Take 1 Univers 4 mg 9-05 [...] ity of tablet 14:40: at [place] [address] bedtime. Medical Branch omeprazole 2018-0 Yes 20mg Take 20 mg U nivers 20 mg 4-10 by mouth ity of capsule 14:40: daily. [place] [address] Medical Branch atorvastati 2018-0 Yes 10mg Take 10 mg Univers n 10 mg 4-10 by mouth ity of tablet 14:40: at [place] [address] bedtime. Medical Branch omeprazole 2018-0 Yes 20mg Take 20 mg U nivers 20 mg 4-10 by mouth ity of capsule 14:40: daily. [place] [address] Medical Branch atorvastati 2017-0 Yes 10mg Take 10 mg Univers n 10 mg 4-10 by mouth ity of tablet 14:40: at [place] [address] bedtime. Medical Branch omeprazole 2018-0 Yes 20mg Take 20 mg U nivers 20 mg 4-10 by mouth ity of capsule 14:40: daily. [place] [address] Medical Branch atorvastati 2017-0 Yes 10mg Take 10 mg Univers n 10 mg 4-10 by mouth ity of tablet 14:40: at [place] [address] bedtime. Medical Branch omeprazole 2017-0 Yes 20mg Take 20 mg U nivers 20 mg 4-10 by mouth ity of capsule 14:40: daily. [place] [address] Medical Branch atorvastati 2017-0 Yes 10mg Take 10 mg Univers n 10 mg 4-10 by mouth ity of tablet 14:40: at [place] [address] bedtime. Medical Branch omeprazole 2018-0 Yes 20mg Take 20 mg U nivers 20 mg 4-10 by mouth ity of capsule 14:40: daily. [place] [address] Medical Branch levothyroxi 0 Yes TAKE 1 Univ ers ne 125 mcg 4-10 TABLET BY ity of tablet 00:00: MOUTH [place] 00 EVERY Medical MORNING Branch levothyroxi 2017-0 Yes TAKE 1 Univ ers ne 125 mcg 4-10 TABLET BY ity of tablet 00:00: MOUTH [place] EVERY Medical MORNING Branch levothyroxi 2018-0 Yes TAKE 1 Univ ers ne 125 mcg 4-10 TABLET BY ity of tablet 00:00: MOUTH [place] EVERY Medical MORNING Branch levothyroxi 2017-0 Yes TAKE 1 Univ ers ne 125 mcg 4-10 TABLET BY ity of tablet 00:00: MOUTH [place] EVERY Medical MORNING Branch levothyroxi 2018-0 Yes TAKE 1 Univ ers ne 125 mcg 4-10 TABLET BY ity of tablet 00:00: MOUTH [place] 00 EVERY Medical MORNING Branch levothyroxi 2018-0 Yes TAKE 1 Univ ers ne 125 mcg 4-10 TABLET BY ity of tablet 00:00: MOUTH [place] 00 EVERY Medical MORNING Branch levothyroxi 2018-0 [...] MOUTH 00 EVERY Medical MORNING Branch SYMBICORT 2018-0 Yes [...] Pt Medical taking Branch 0.5mg daily ALPRAZolam 2018-0 Yes .5mg Take 0.5 Uni vers 0.25 [...] 00 EVERY Medical MORNING Branch losartan 25 1- No TAKE 1 Uni vers mg tablet 2-16 11-13 TABLET BY ity of 00:00: 00:00 MOUTH [place] 00 :00 EVERY Medical MORNING Branch clopidogrel 2018-0 Yes TAKE 1 Univ ers 75 mg 2-06 TABLET BY ity of tablet 00:00: MOUTH [place] 00 EVERY Medical MORNING Branch clopidogrel 2018-0 Yes TAKE 1 Univ ers 75 mg 2-06 TABLET BY ity of tablet 00:00: MOUTH [place] 00 EVERY Medical MORNING Branch clopidogrel 2018-0 Yes TAKE 1 Univ ers 75 mg 2-06 TABLET BY ity of tablet 00:00: MOUTH [place] 00 EVERY Medical MORNING Branch clopidogrel 2018-0 Yes TAKE 1 Univ ers 75 mg 2-06 TABLET BY ity of tablet 00:00: MOUTH [place] 00 EVERY Medical MORNING Branch clopidogrel 2018-0 Yes TAKE 1 Univ ers 75 mg 2-06 TABLET BY ity of tablet 00:00: MOUTH [place] 00 EVERY Medical MORNING Branch clopidogrel 2018-0 Yes TAKE 1 Univ ers 75 mg 2-06 TABLET BY ity of tablet 00:00: MOUTH [place] 00 EVERY Medical MORNING Branch clopidogrel 2018-0 Yes TAKE 1 Univ ers 75 mg 2-06 TABLET BY ity of tablet 00:00: MOUTH [place] 00 EVERY Medical MORNING Branch clopidogrel 2018-0 Yes TAKE 1 Univ ers 75 mg 2-06 TABLET BY ity of tablet 00:00: MOUTH [place] 00 EVERY Medical MORNING Branch clopidogrel 2018-0 Yes TAKE 1 Univ ers 75 mg 2-06 TABLET BY ity of tablet 00:00: MOUTH [place] 00 EVERY Medical MORNING Branch clopidogrel 2018-0 Yes TAKE 1 Univ ers 75 mg 2-06 TABLET BY ity of tablet 00:00: [facility] 00 EVERY Medical MORNING Branch clopidogrel 2018-0 Yes TAKE 1 Univ ers 75 mg 2-06 TABLET BY ity of tablet 00:00: MOUTH [place] 00 EVERY Medical MORNING Branch clopidogrel 2018-0 Yes TAKE 1 Univ ers 75 mg 2-06 TABLET BY ity of tablet 00:00: MOUTH [place] 00 EVERY Medical MORNING Branch clopidogrel 2018-0 Yes TAKE 1 Univ ers 75 mg 2-06 TABLET BY ity of tablet 00:00: MOUTH [place] 00 EVERY Medical MORNING Branch clopidogrel 2018-0 Yes TAKE 1 Univ ers 75 mg 2-06 TABLET BY ity of tablet 00:00: MOUTH [place] 00 EVERY Medical MORNING Branch clopidogrel 2018-0 Yes TAKE 1 Univ ers 75 mg 2-06 TABLET BY ity of tablet 00:00: MOUTH [place] 00 EVERY Medical MORNING Branch clopidogrel 2018-0 Yes TAKE 1 Univ ers 75 mg 2-06 TABLET BY ity of tablet 00:00: MOUTH EVERY Medical MORNING Branch clopidogrel 2018-0 Yes TAKE 1 Univ ers 75 mg 2-06 TABLET BY ity of tablet 00:00: MOUTH EVERY Medical MORNING Branch clopidogrel 2018-0 Yes TAKE 1 Univ ers 75 mg 2-06 TABLET BY ity of tablet 00:00: MOUTH EVERY Medical MORNING Branch Vital Signs Vital Name Observation Time Observation Value Comments Source Systolic blood 2023-02-26 20:38:00 149 mm[Hg] Univer sity of pressure [place] [facility] [place] Diastolic blood 2023-02-26 20:38:00 75 mm[Hg] Unive rsity of [facility] Heart rate 2023-02-26 20:38:00 81 /min Universi ty of [facility] Body temperature 2023-02-26 20:38:00 36.72 Brittany [facility] 2023-02-26 20:38:00 18 /min [facility] Body height 2023-02-26 20:38:00 170.2 cm Universi ty of [facility] Body weight 2023-02-26 20:38:00 57.607 kg Universi ty of [facility] BMI 2023-02-26 20:38:00 19.89 kg/m2 Universi ty [facility] Oxygen saturation in 2023-02-26 20:38:00 100 /min [facility] Arterial blood by [facility] Pulse oximetry Branch Systolic blood 2022-08-24 15:43:00 135 mm[Hg] Univer sity of [facility] Diastolic blood 2022-08-24 15:43:00 83 mm[Hg] Unive rsity of [facility] Heart rate 2022-08-24 15:43:00 94 /min Universi ty of [facility] Body temperature 2022-08-24 15:43:00 36.83 Brittany Univ ersity of [facility] Respiratory rate 2022-08-24 15:43:00 18 /min Univ ersity of [facility] Body height 2022-08-24 15:43:00 170.2 cm Universi ty of [facility] Body weight 2022-08-24 15:43:00 58.968 kg Universi ty of [facility] BMI 2022-08-24 15:43:00 20.36 kg/m2 Universi ty of [place] [facility] Oxygen saturation in 2022-08-24 15:43:00 99 /min University of Arterial blood by [facility] hermelindo Pulse oximetry Branch Systolic blood 2022-01-08 02:02:00 147 mm[Hg] Univer sity of pressure [place] [facility] Diastolic blood 2022-01-08 02:02:00 78 mm[Hg] Unive rsity of pressure [place] [facility] Heart rate 2022-01-08 02:02:00 78 /min Universi ty of [place] [facility] Respiratory rate 2022-01-08 02:02:00 18 /min Univ ersity of [place] [facility] Oxygen saturation in 2022-01-08 02:02:00 100 /min University of Arterial blood by [facility] Pulse oximetry Branch Body temperature 2022-01-07 23:24:00 37.17 Brittany Univ ersity of [place] [facility] Body weight 2022-01-07 23:24:00 58.968 kg Universi ty [facility] [place] [facility] BMI 2022-01-07 23:24:00 20.36 kg/m2 Universi ty [facility] [place] [facility] Systolic blood 2022-01-06 20:29:00 140 mm[Hg] Univer sity of pressure [place] [facility] Diastolic blood 2022-01-06 20:29:00 106 mm[Hg] Unive rsity of pressure [place] [facility] Heart rate 2022-01-06 20:29:00 102 /min Universi ty of [place] [facility] Body temperature 2022-01-06 20:29:00 37.5 Brittany Univ ersity of [place] [facility] Respiratory rate 2022-01-06 20:29:00 16 /min Univ ersity of [place] [facility] Body height 2022-01-06 20:29:00 170.2 cm Universi ty [facility] [place] [facility] Body weight 2022-01-06 20:29:00 58.968 kg Universi ty [facility] [place] [facility] BMI 2022-01-06 20:29:00 20.36 kg/m2 Universi ty of [place] [facility] Oxygen saturation in 2022-01-06 20:29:00 99 /min University of Arterial blood by [facility] Pulse oximetry Branch Systolic blood 2021-09-02 01:52:00 132 mm[Hg] Univer sity of pressure [place] [facility] Diastolic blood 2021-09-02 01:52:00 75 mm[Hg] Unive rsity of pressure [place] [facility] Heart rate 2021-09-02 01:52:00 67 /min Universi ty of [place] [facility] Respiratory rate 2021-09-02 01:52:00 16 /min Univ ersity of [place] [facility] Oxygen saturation in 2021-09-02 01:52:00 99 /min University of Arterial blood by [facility] Pulse oximetry Branch Body temperature 2021-09-01 23:57:00 36.17 Brittany Univ ersity of [place] [facility] Body height 2021-09-01 23:57:00 170.2 cm Universi ty [facility] [place] [facility] Body weight 2021-09-01 23:57:00 58.968 kg Universi ty [facility] [place] [facility] BMI 2021-09-01 23:57:00 20.36 kg/m2 Universi ty [facility] [place] [facility] Systolic blood 2021-08-07 15:57:00 165 mm[Hg] Univer sity of pressure [place] [facility] Diastolic blood 2021-08-07 15:57:00 71 mm[Hg] Unive rsity of pressure [place] [facility] Heart rate 2021-08-07 15:57:00 97 /min Universi ty [facility] [place] [facility] Body temperature 2021-08-07 15:57:00 37.44 Brittany Univ ersity of [place] [facility] Respiratory rate 2021-08-07 15:57:00 18 /min Univ ersity of [place] [facility] Body height 2021-08-07 15:57:00 170.2 cm Universi ty [facility] [place] [facility] Body weight 2021-08-07 15:57:00 56.7 kg Universi ty [facility] [place] [facility] BMI 2021-08-07 15:57:00 19.58 kg/m2 Universi ty of [place] [facility] Oxygen saturation in 2021-08-07 15:57:00 98 /min University of Arterial blood by [facility] Pulse oximetry Branch Systolic blood 2021-06-30 01:29:00 132 mm[Hg] Univer sity of pressure [place] [facility] Diastolic blood 2021-06-30 01:29:00 75 mm[Hg] Unive rsity of pressure [place] [facility] Heart rate 2021-06-30 01:29:00 75 /min Universi ty of [place] [facility] Respiratory rate 2021-06-30 01:29:00 18 /min Univ ersity of [place] [facility] Oxygen saturation in 2021-06-30 01:29:00 100 /min University of Arterial blood by [facility] Pulse oximetry Branch Body temperature 2021-06-29 22:01:00 36.67 Brittany Univ ersity of [place] [facility] Body weight 2021-06-29 22:01:00 53.071 kg Universi ty [facility] [place] [facility] BMI 2021-06-29 22:01:00 18.32 kg/m2 Universi ty [facility] [place] [facility] Systolic blood 2021-05-20 21:45:00 137 mm[Hg] Univer sity of pressure [place] [facility] Diastolic blood 2021-05-20 21:45:00 75 mm[Hg] Unive rsity of pressure [place] [facility] Heart rate 2021-05-20 21:45:00 75 /min Universi ty [facility] [place] [facility] Body temperature 2021-05-20 21:45:00 36.5 Brittany Univ ersity of [place] [facility] Respiratory rate 2021-05-20 21:45:00 16 /min Univ ersity of [place] [facility] Oxygen saturation in 2021-05-20 21:45:00 97 /min University of Arterial blood by [facility] Pulse oximetry Branch Body weight [...] /min University of Arterial blood by [facility] Pulse oximetry Branch Body temperature 2020-09-14 02:10:00 36.5 Brittany Univ ersity of [place] [facility] Body height 2020-09-14 02:09:00 170.2 cm Universi ty [facility] [place] [facility] Body weight 2020-09-14 02:09:00 61.236 kg Universi ty [facility] [place] [facility] BMI 2020-09-14 02:09:00 21.14 kg/m2 Universi ty [facility] [place] [facility] Systolic blood 2020-09-14 03:30:00 147 mm[Hg] Univer sity of pressure [place] [facility] Diastolic blood 2020-09-14 03:30:00 89 mm[Hg] Unive rsity of pressure [place] [facility] Heart rate 2020-09-14 03:30:00 73 /min Universi ty of [place] [facility] Respiratory rate 2020-09-14 03:30:00 19 /min Univ ersity of [place] [facility] Oxygen saturation in 2020-09-14 03:30:00 97 /min University of Arterial blood by [place] [employer] hermelindo Pulse oximetry Branch Body temperature 2020-09-14 02:10:00 36.5 Brittany Univ ersity of [place] [facility] Body height 2020-09-14 02:09:00 170.2 cm Universi ty [facility] [place] [facility] Body weight 2020-09-14 02:09:00 61.236 kg Universi ty [facility] [place] [facility] BMI 2020-09-14 02:09:00 21.14 kg/m2 Universi ty [facility] [place] [facility] Heart rate 2019-07-28 01:36:00 70 /min Universi ty [facility] [place] [facility] Respiratory rate 2019-07-28 01:36:00 18 /min Univ ersity of [place] [facility] Oxygen saturation in 2019-07-28 01:24:00 98 /min University of Arterial blood by [place] [employer] hermelindo Pulse oximetry Branch Systolic blood 2019-07-28 01:00:00 143 mm[Hg] Univer sity of pressure [place] [facility] Diastolic blood 2019-07-28 01:00:00 74 mm[Hg] Unive rsity of pressure [place] [facility] Body temperature 2019-07-28 00:05:00 36.56 Brittany Univ ersity of [place] [facility] Body height 2019-07-28 00:05:00 170.2 cm Universi ty [facility] [place] [facility] Body weight 2019-07-28 00:05:00 68.04 kg Universi ty [facility] [place] [facility] BMI 2019-07-28 00:05:00 23.49 kg/m2 Universi ty [facility] [place] [facility] Heart rate 2019-07-28 01:36:00 70 /min Universi ty [facility] [place] [facility] Respiratory rate 2019-07-28 01:36:00 18 /min Univ ersity of [place] [facility] Oxygen saturation in 2019-07-28 01:24:00 98 /min University of Arterial blood by [place] [employer] hermelindo Pulse oximetry Branch Systolic blood 2019-07-28 01:00:00 143 mm[Hg] Univer sity of pressure [place] [facility] Diastolic blood 2019-07-28 01:00:00 74 mm[Hg] Unive rsity of pressure [place] [facility] Body temperature 2019-07-28 00:05:00 36.56 Brittany Univ ersity of [place] [facility] Body height 2019-07-28 00:05:00 170.2 cm Universi ty [facility] [place] [facility] [place] Body weight 2019-07-28 00:05:00 68.04 kg Universi ty [facility] [place] [facility] BMI 2019-07-28 00:05:00 23.49 kg/m2 Universi ty [facility] [place] [facility] Systolic blood 2019-03-11 21:00:00 141 mm[Hg] Univer sity of pressure [place] [facility] Diastolic blood 2019-03-11 21:00:00 66 mm[Hg] Unive rsity of pressure [place] [facility] Heart rate 2019-03-11 21:00:00 97 /min Universi ty [facility] [place] [facility] Respiratory rate 2019-03-11 21:00:00 18 /min Univ ersity of [place] [facility] Oxygen saturation in 2019-03-11 21:00:00 97 /min University of Arterial blood by [facility] Pulse oximetry Branch Body temperature 2019-03-11 19:13:00 36.06 Brittany Univ ersity of [place] [facility] Body weight 2019-03-11 19:12:00 68.04 kg Universi ty [facility] [place] [facility] BMI 2019-03-11 19:12:00 23.49 kg/m2 Universi ty [facility] [place] [facility] Systolic blood 2019-03-11 21:00:00 141 mm[Hg] Univer sity of pressure [place] [facility] Diastolic blood 2019-03-11 21:00:00 66 mm[Hg] Unive rsity of pressure [place] [facility] Heart rate 2019-03-11 21:00:00 97 /min [facility] Respiratory rate 2019-03-11 21:00:00 18 /min [facility] Oxygen saturation in 2019-03-11 21:00:00 97 /min [facility] Arterial blood by [facility] Pulse oximetry [place] Body temperature 2019-03-11 19:13:00 36.06 Brittany [facility] Body weight 2019-03-11 19:12:00 68.04 kg [facility] BMI 2019-03-11 19:12:00 23.49 kg/m2 [facility] Procedures Procedure Date / Time Performing Clinician Source Performed COMP. METABOLIC PANEL 2023-02-26 21:14:00 Neida Duggan [facility] ([id number]) [facility] CBC WITH DIFF 2023-02-26 21:14:00 Neida Duggan [place] [facility] CONSENT/REFUSAL FOR 2023-02-26 20:33:07 Doctor Unassigned, No Un [facility] DIAGNOSIS AND TREATMENT Name [facility] POCT SARS-COV-2 ANTIGEN 2022-08-24 15:52:00 Susan Lee [facility] (BINAX NOW) [facility] POCT MOLECULAR FLU 2022-08-24 15:51:00 Unknown, Attending [facility] ASSIGNMENT OF BENEFITS 2022-08-24 15:38:07 Doctor Unassigned, No [facility] Name [facility] XR CHEST 1 VW 2022-01-08 00:24:42 Alex Oconnell [facility] RAPID STREP SCREEN FOR 2022-01-06 20:47:00 [facility]rill [facility] GROUP A Medical Branch COVID-19 (ID NOW RAPID 2022-01-06 20:47:00 Sherrill [facility] TESTING) Medical Branch CONSENT/REFUSAL FOR 2022-01-06 20:26:18 Doctor Unassigned, No Un [facility] DIAGNOSIS AND TREATMENT Name [facility] RAPID INFLUENZA A/B 2021-09-02 00:47:00 Cameron Dalton [facility] COVID-19 (ID NOW RAPID 2021-09-02 00:47:00 Cameron Dalton [facility] TESTING) Medical Branch XR CHEST 2 VW 2021-09-02 00:27:31 [facility] [place] [facility] CONSENT/REFUSAL FOR 2021-09-01 23:46:25 Doctor Un[facility]igned, No [facility] Name [facility] Branch XR CHEST 2 VW 2021-08-07 16:43:01 Darius [facility] CONSENT/REFUSAL FOR 2021-08-07 15:37:28 [facility]igned, No [facility] Name [facility] CT ABDOMEN PELVIS W 2021-06-29 23:11:24 Jose Alejandro Castano [facility] CONTRAST Medical Branch LIPASE 2021-06-29 [facility]:18[facility] 2021-06-29 22:18:00 Omaira [facility] COMP. METABOLIC PANEL 2021-06-29 22:18:00 Omaira [facility] ([id number]) Medical Branch CBC WITH DIFF 2021-06-29 22:18:00 Omaira [facility] URINALYSIS 2021-06-29 22:18[facility] CONSENT/REFUSAL FOR 2021-06-29 21:50:47 Doctor Unassigned, No [facility] Name [facility] POCT GLUCOSE (AUTOMATED) 2021-05-20 17:30:00 Marcelina Che [facility] HB ECG ROUTINE & RHYTHM 2021-05-20 15:36:46 Sami Caceres [facility] STRIP [facility] Branch TRANSTHORACIC ECHO (TTE) 2021-05-20 15:19:[address] [facility] COMPLETE [facility] TROPONIN I 2021-05-20 11:04:00 Yane [facility] BASIC METABOLIC PANEL 2021-05-20 11:04:00 [facility] (NA, K, CL, CO2, Medical Branch GLUCOSE, BUN, CREATININE, CA) CBC WITH DIFF 2021-05-20 11:04:00 Marcelina [facility] TROPONIN I 2021-05-20 01:56:00 Neida [facility] XR CHEST 1 VW 2021-05-20 00:01:05 Neida [facility] LIPASE 2021-05-19 23:49:00 Neida [facility] MAGNESIUM 2021-05-19 23:49:00 Neida [facility] TROPONIN I 2021-05-19 23:49:00 Neida [facility] COMP. METABOLIC PANEL 2021-05-19 23:49:00 Neida Duggan [facility] ([id number]) [facility] CBC WITH DIFF 2021-05-19 23:49:00 Neida [facility] PROTHROMBIN TIME / INR 2021-05-19 23:49:00 [facility] ACTIVATED PARTIAL 2021-05-19 23:49:00 Neida Duggan [facility] THRMPLAS [facility] COVID-19 (ID NOW RAPID 2021-05-19 23:49:00 Neida Duggan [facility] TESTING) [facility] CONSENT/REFUSAL FOR 2021-05-19 23:01:42 Doctor Unassigned, No [facility] DIAGNOSIS AND TREATMENT Name Medical Branch URINALYSIS 2020-09-14 02:42:00 Diana Berg [facility] XR CHEST 1 VW 2020-09-14 02:30:21 Diana Berg [facility] LIPASE 2020-09-14 02:21:00 Diana Berg [facility] TROPONIN I 2020-09-14 02:21:00 Diana Berg [facility] HEPATIC FUNCTION PANEL 2020-09-14 02:21:00 Diana Berg [facility] ([id number]) (ALB,T.PRO,BILI Medical Branch T,BU/BC,ALT,AST,ALK PHOS) BASIC METABOLIC PANEL 2020-09-14 02:21:00 Diana Berg [facility] [place] (NA, K, CL, CO2, Medical Branch GLUCOSE, BUN, CREATININE, CA) CBC WITH DIFF 2020-09-14 02:21:00 Diana Berg [facility] N-TERMINAL PRO-BNP 2020-09-14 02:21:00 Diana Berg [facility] COVID-[facility] (ID NOW RAPID 2020-09-14 02:21:00 Diana [facility] [place] [facility] NOTICE OF PRIVACY 2020-09-14 02:00:22 Doctor Unassigned, No [facility] Name [facility] CONSENT/REFUSAL FOR 2020-09-14 01:58:28 Doctor Unassigned, No Un [facility] [place] DIAGNOSIS AND TREATMENT Name [facility] HEPATIC FUNCTION PANEL 2019-07-28 00:55:00 [facility] ([id number] (ALB,T.PRO,BILI Medical Branch T,BU/BC,ALT,AST,ALK PHOS) BASIC METABOLIC PANEL 2019-07-28 00:55:00 Mariangel [facility]ga [facility] [place] (NA, K, CL, CO2, Medical Branch GLUCOSE, BUN, CREATININE, CA) CBC WITH DIFFERENTIAL 2019-07-28 00:55:00 Mariangel Ortega [facility] RAPID STREP SCREEN FOR 2019-07-28 00:55:00 [facility]angel [facility] A [facility] ADC,CLC OR LCC ONLY - 2019-07-28 00:55:00 Mariangel Ortega Un [facility] [place] INFLUENZA A & B DIRECT Medical B ranch ANTIGEN CBC WITH DIFFERENTIAL 2019-07-28 00:55:00 Mariangel [facility]tega [facility] XR CHEST 2 VW 2019-07-28 00:28:40 Mariangel Ortega [facility] CONSENT/REFUSAL FOR 2019-07-27 23:47:18 Doctor Unassigned, No Un [facility] [place] DIAGNOSIS AND TREATMENT Name Medical Branch LIPASE 2019-03-11 19:53:00 Sherrill Connor [place] [facility] HEPATIC FUNCTION PANEL 2019-03-11 19:53:00 Sherrill Connor [facility] ([id number]) (ALB,T.PRO,BILI [facility] Branch T,BU/BC,ALT,AST,ALK PHOS) BASIC METABOLIC PANEL 2019-03-11 19:53:00 Sherrill Connor [facility] (NA, K, CL, CO2, Medical Branch GLUCOSE, BUN, CREATININE, CA) CBC WITH DIFFERENTIAL 2019-03-11 19:53:00 Sherrill Connor [facility] PROTHROMBIN TIME / INR 2019-03-11 19:53:00 Sherrill Connor [facility] ACTIVATED PARTIAL 2019-03-11 19:53:00 Sherrill Connor [facility] OF PRIVACY 2019-03-11 18:56:54 Doctor Unassigned, No Univ [facility] PRACTICES Name [facility] Encounters Start End Encounter Admission Attending Care Care Encounter Source Date/Time Date/Time Type Type Clinicians Facility Department ID 2021-05-06 Emergency [facility] [id number] Univers 05:05:13 ity of [facility] 2023-02-26 2023-02-26 Emergency X OLGA LIDIA Neida [facility] ERT [id number] Univers 15:53:00 17:52:00 ity of [facility] 2023-02-26 2023-02-26 Emergency Olga LidiaNeida [facility] [id number] Univers 15:53:00 17:52:00 Leonarda DENNISON [id number] i ty of [id number] [facility] [id number] [facility] 084 Branch 2022-08-24 2022-08-24 Urgent Susan Lee [facility] [id number] Univers 09:40:00 10:00:00 Care Unknown, Attending HEALTH [id number] ity of [place] [id number] Amandeep as JOCELYN?BLEA [id number] Fl dical [address] MEDICAL OFFICE BUILDING 2022-08-24 2022-08-24 Outpatient R [facility] [id number] Univers 09:40:00 09:40:00 SUSAN ity of [facility] 2022-08-24 2022-08-24 Orders Doctor SUSHIL [id number] Univers 00:00:00 00:00:00 Only Unassigned, KIRK [id number] ity of [place] [facility] [id number] Amandeep as [id number] [address] 2022-01-11 2022-01-11 Laboratory Only, Ang Db Test [facility] 1.2.8 40.114 [id number] Univers 13:15:00 13:30:00 Only Monik Charles [facility] [id number] ity of [place] [id number] Amandeep as JOCELYN?BLEA [id number] [address] MEDICAL OFFICE BUILDING 2022-01-11 2022-01-11 Outpatient Torres [facility] [id number] Univers 13:15:00 13:24:38 MONIK delaney [facility] 2022-01-07 2022-01-07 Emergency [facility] [id number] Univers 18:26:00 21:08:00 ALEX garcia [facility] 2022-01-07 2022-01-07 [facility] [id number] Univers 18:26:00 21:08:00 Alex DENNISON [id number] ity of [place] [id number] [facility] [id number] [address] 2022-01-06 2022-01-06 Emergency [facility] [id number] Univers 15:31:00 16:32:00 SHERRILL delaney [facility] 2022-01-06 2022-01-06 Emergency [facility] [id number] Univers 15:31:00 16:32:00 Sherrill DENNISON [id number] i ty [facility] [id number] [facility] [id number] [address] 2021-09-01 2021-09-01 Emergency X [facility] ERT [id number] Univers 17:59:00 19:56:00 CAMERON delaney [facility] 2021-09-01 2021-09-01 Emergency [facility] [id number] Univers 17:59:00 19:56:00 Cameron DENNISON [id number] i ty [id number] [id number] [id number] 2021-09-01 2021-09-01 Orders Doctor SUSHIL [id number] Univers 00:00:00 00:00:00 Only Unassigned, KIRK [id number] ity of [place] [facility] [id number] Amandeep as [id number] [facility] 009 [place] 2021-08-08 2021-08-08 Letter SUSHIL Daniels [id number] Univers 00:00:00 00:00:00 (Out) Nirmala BRADLEY [id number] it y of HOSPITAL [id number] Amandeep as [id number] [facility] 019 [place] 2021-08-07 2021-08-07 Emergency X [facility] ERT [id number] Univers 09:58:00 11:43:00 DARIUS delaney of [facility] 2021-08-07 2021-08-07 Emergency [facility] [id number] Univers 09:58:00 11:43:00 Darius BRAGGDORINA [id number] i ty of [id number] [facility] [id number] [place] [id number] [place] 2021-08-07 2021-08-07 Orders Doctor SUSHIL [id number] [id number] Univers 00:00:00 00:00:00 Only Unassigned, KIRK [id number] ity of [place] [facility] [id number] Amandeep as [phone] [facility] 009 [place] 2021-06-29 2021-06-29 Emergency X OMAIRA [facility] ERT [id number] Univers 16:04:00 19:33:00 JOSE ALEJANDRO delaney [facility] 2021-06-29 2021-06-29 Emergency Omaira [facility] 1.2.840.114 [id number] Univers 16:04:00 19:33:00 Jose Alejandro DENNISON 350.1.13.10 i ty [facility] 4.2.7.2.686 [facility] [id number] [address] 2021-05-19 2021-05-20 [facility] [id number] Univers 17:04:00 17:03:00 MARCELINA delaney [facility] 2021-05-19 2021-05-20 Emergency Neida Duggan Leonarda [facility] 1..840. 114 [id number] Univers 17:04:00 17:03:00 Marcelina Che JESI 350.1.13.10 ity [facility] 4.2.7.2.686 [facility] [phone] [address] 2020-09-16 2020-09-16 Outpatient R [facility] [id number] Univers 10:20:00 10:20:00 NICOLE ity [facility] 2020-09-16 2020-09-16 Laboratory Lab, [facility] 1..840.114 [id number] 09:44:15 10:04:15 Only Fam Pob I Health 350.1.13.10 [place] 4.2.7.2.686 Professio [id number] [place] [address] [address] 2020-09-16 2020-09-16 Laboratory Lab, [facility] Fam Pob I [facility] 1.. 840.114 [id number] Univers 09:44:15 10:04:15 Only Nicole [facility] 350.1.13.10 ity of [place] 4.2.7.2.686 Amandeep as Professio [phone] Fl dical [address] Office [address] 2020-09-13 2020-09-13 [facility] 1.2.840.114 [id number] 20:05:00 22:24:00 Diana Dennison 350.1.13.10 [place] 4.2.7.2.686 [place] [id number] [facility] 2020-09-13 2020-09-13 Emergency Rohan, [facility] 1.2.840.114 [id number] [facility] 20:05:00 22:24:00 Diana Braggton 350.1.13.10 ity of [place] 4.2.7.2.686 [facility] [id number] [address] 2019-07-27 2019-07-27 Emergency [facility] 1.2.840.114 [id number] 18:07:12 20:13:00 Mariangel Ada Jesi 350.1.13.10 [place] 4.2.7.2.686 [place] [id number] [facility] 2019-07-27 2019-07-27 Emergency [facility] 1.2.840.114 [id number] [facility] 18:07:12 20:13:00 Mariangel Dennison 350.1.13.10 ity of [place] 4.2.7.2.686 [facility] [id number] [address] 2019-07-27 2019-07-27 Orders Doctor LING 1.2.840.114 [id number] 00:00:00 00:00:00 Only Unassigned, KIRK 350.1.13.10 [facility] [facility] 4.2.7.2.686 [id number] [facility] 2019-07-27 2019-07-27 Orders Doctor LING 1.2.840.114 [id number] Univers 00:00:00 00:00:00 Only Unassigned, KIRK 350.1.13.10 ity of [place] [facility] 4.2.7.2.686 Amandeep [id number] [address] 2019-03-11 2019-03-11 Emergency [facility] 1.2.733.768 [id number] 14:05:54 16:45:00 Sherrill Dennison 350.1.13.10 [place] 4.2.7.2.686 [place] [id number] [facility] 2019-03-11 2019-03-11 Emergency [facility] 1.2.950.541 [id number] Univers 14:05:54 16:45:00 Sherrill Dennison 350.1.13.10 i [facility] 4.2.7.2.686 [facility] [id number] [facility] 084 Branch Results Test Description Test Time Test Comments Results Result Comments Source COMP. METABOLIC PANEL (56893) 2023-02-26 22:05:45 Test Item Value Reference Range Interpretation Comme nts NA (test code = 5698392880) 136 mmol/L 135-145 K (test code = 7201595789) 3.7 mmol/L 3.5-5.0 CL (test code = 2630565164) 100 mmol/L 98-108 CO2 TOTAL (test code = 9434101796) 26 mmol/L 23-31 AGAP (test code = 6073383275) 10 2-16 BUN (test code = 9729830342) 11 mg/dL 7-23 GLUCOSE (test code = 6190652352) 123 mg/dL 70-110 H CREATININE (test code = 0.61 mg/dL 0.50-1.04 0627209848) TOTAL BILI (test code = 0.2 mg/dL 0.1-1.3 4700257841) CALCIUM (test code = 9701918879) 9.6 mg/dL 8.6-10.6 T PROTEIN (test code = 9095059957) 7.6 g/dL 6.3-8.2 ALBUMIN (test code = 6069641637) 4.8 g/dL 3.5-5.0 ALK PHOS (test code = 8527439493) 83 U/L 34-122 ALTv (test code = 1742-6) 20 U/L 5-35 AST(SGOT) (test code = 7197717912) 28 U/L 13-40 eGFR (test code = 2784489595) 99.1 mL/min/1.73m2 MADISYN (test code = MADISYN) Association [...] tests). Lab Interpretation (test code = Abnormal 18366-9) [facility] WITH [id number] 21:53:23 Test Item Value Reference Range Interpretation Comments WBC (test code = 6.64 See_Comment [Automated 0390-2) message] The sy stem which generated this result transmitted reference range : 4.30 - 11.10 10*3/?L. The reference range was not used to interpret this result as normal/abnormal . RBC (test code = 3.46 See_Comment L [Automated 559-8) message] The sy stem which generated this result transmitted reference range : 3.93 - 5.25 10*6/?L. The reference range was not used to interpret this result as normal/abnormal . HGB (test code = 11.1 g/dL 11.6-15.0 L 718-7) HCT (test code = 31.3 % 35.7-45.2 L 4544-3) MCV (test code = 90.5 fL 80.6-95.5 787-2) MCH (test code = 32.1 pg 25.9-32.8 785-6) MCHC (test code = 35.5 g/dL 31.6-35.1 H 786-4) RDW-SD (test code = 42.1 fL 39.0-49.9 32260-5) RDW-CV (test code = 12.9 % 12.0-15.5 788-0) PLT (test code = 274 See_Comment [Automated 777-3) message] The sy stem which generated this result transmitted reference range : 166 - 358 10*3/ ?L. The reference r aiden was not used to interpret this result as normal/abnormal . MPV (test code = 10.4 fL 9.5-12.9 97325-2) NRBC/100 WBC (test 0.0 See_Comment [Automat ed code = 3822222391) message] The system which generated this result transmitted reference range : 0.0 - 10.0 /100 WBCs. The refer ence range was not u sed to interpret th is result as normal/abnormal . NRBC x10^3 (test code See_Comment [Auto mated = 6171823023) message] The s ystem which generated this result transmitted reference range : 10*3/?L. The reference range was not used to interpret this result as normal/abnormal . GRAN MAT (NEUT) % 52.0 % (test code = 770-8) IMM GRAN % (test code 0.50 % = 4596513386) LYMPH % (test code = 34.2 % 736-9) MONO % (test code = 6.8 % 5905-5) EOS % (test code = 6.2 % 713-8) BASO % (test code = 0.3 % 706-2) GRAN MAT x10^3(ANC) 3.46 10*3/uL 1.88-7.09 (test code = 1072699748) IMM GRAN x10^3 (test 0.03 10*3/uL 0.00-0.06 code = 2655890798) LYMPH x10^3 (test code 2.27 10*3/uL 1.32-3.29 = 731-0) MONO x10^3 (test code 0.45 10*3/uL 0.33-0.92 = 742-7) EOS x10^3 (test code = 0.41 10*3/uL 0.03-0.39 H 711-2) BASO x10^3 (test code 0.01-0.07 = 704-7) Lab Interpretation Abnormal (test code = 57434-4) [facility] MOLECULAR [id number] 16:02:31 Test Item Value Reference Range Interpretation Comments POCT Molecular FluA (test code = Negative Negative 64492-8) POCT Molecular FluB (test code = Negative Negative 30149-7) Lab Interpretation (test code = Normal 18772-1) [facility] SARS-COV-2 ANTIGEN (BINAX NOW)2022-08-24 15:52:00 Test Item Value Reference Range Interpretation Comments POCT SARS-COV-2 ANTIGEN (test Not Detected Not Detected code = 07880-2) On board controls acceptable Yes with C Line (test code = 3574) Lab Interpretation (test code = Normal 86275-5) [facility] METABOLIC PANEL (53546)2021-06-29 23:10:56 Test Item Value Reference Range Interpretation Comments NA (test code = 137 mmol/L 135-145 3801688277) K (test code = 3.9 mmol/L 3.5-5.0 0849512225) CL (test code = 102 mmol/L 98-108 5220535915) CO2 TOTAL (test code = 27 mmol/L 23-31 7607025798) AGAP (test code = 2-16 5126741988) BUN (test code = 10 mg/dL 7-23 1700447190) GLUCOSE (test code = 137 mg/dL 70-110 H 3453757026) CREATININE (test code = 0.69 mg/dL 0.50-1.04 7441758072) TOTAL BILI (test code = 0.5 mg/dL 0.1-1.3 5797874792) CALCIUM (test code = 9.2 mg/dL 8.6-10.6 1894118761) T PROTEIN (test code = 7.7 g/dL 6.3-8.2 6950847267) ALBUMIN (test code = 4.9 g/dL 3.5-5.0 8806610302) ALK PHOS (test code = 73 U/L 34-122 6254797839) ALTv (test code = 15 U/L 5-35 1742-6) AST(SGOT) (test code = 21 U/L 13-40 6574186074) eGFR (test code = mL/min/1.73m2 3394124234) MADISYN (test code = MADISYN) Association of [...] tests). Lab Interpretation Abnormal (test code = 34340-1) [facility] [id number] 22:59:27 Test Item Value Reference Interpretation Comments Range TROPONIN I (test 0.001 ng/mL See_Comment [Automated code = 1484044885) message] The system which generated this result [...] biotin. Lab Interpretation Normal (test code = 00302-3) [facility]2021-[facility]-24 22:49:29 Test Item Value Reference Range Interpretation Comments LIPASE (test code = 2081969283) 57 U/L 0-220 Lab Interpretation (test code = Normal 37895-4) [facility] WITH [id number] 22:29:28 Test Item Value Reference Range Interpretation Comments WBC (test code = See_Comment [Automated 0890-2) message] The sy stem which generated this result transmitted reference range : 4.30 - 11.10 10*3/?L. The reference range was not used to interpret this result as normal/abnormal . RBC (test code = See_Comment L [Automated 939-8) message] The sy stem which generated this [...] RDW-SD (test code = 43.4 fL 39.0-49.9 59627-7) RDW-CV (test code = 12.7 % 12.0-15.5 788-0) PLT (test code = See_Comment [Automated 537-3) message] The sy stem which generated this result transmitted reference range : 166 - 358 10*3/ ?L. The reference r aiden was not used to interpret this result as normal/abnormal . MPV (test code = 10.7 fL 9.5-12.9 99738-0) NRBC/100 WBC (test See_Comment [Automat ed code = 1685310563) message] The system which generated this result transmitted reference range : 0.0 - 10.0 /100 WBCs. The refer ence range was not u sed to interpret th is result as normal/abnormal . NRBC x10^3 (test code <0.01 See_Comment [Auto mated = 7800430317) message] The s ystem which generated this result transmitted reference range : 10*3/?L. The reference range was not used to interpret this result as normal/abnormal . GRAN MAT (NEUT) % 68.6 % (test code = 770-8) IMM GRAN % (test code 0.40 % = 8906241813) LYMPH % (test code = 22.9 % 736-9) MONO % (test code = 6.3 % 5905-5) EOS % (test code = 1.6 % 713-8) BASO % (test code = 0.2 % 706-2) GRAN MAT x10^3(ANC) 6.89 10*3/uL 1.88-7.09 (test code = 6740395862) IMM GRAN x10^3 (test 0.04 10*3/uL 0.00-0.06 code = 7746962504) LYMPH x10^3 (test code 2.30 10*3/uL 1.32-3.29 = 731-0) MONO x10^3 (test code 0.63 10*3/uL 0.33-0.92 = 742-7) EOS x10^3 (test code = 0.16 10*3/uL 0.03-0.39 711-2) BASO x10^3 (test code <0.03 0.01-0.07 = 704-7) Lab Interpretation Abnormal (test code = 42919-5) [facility] (AUTOMATED)2021-05-20 17:33:00 Test Item Value Reference Range Interpretation Comments POCT GLU (test code = 8645226456) 80 mg/dL 70-110 Lab Interpretation (test code = Normal 80009-2) [facility]ney[facility] [id number] 12:36:17 Test Item Value Reference Interpretation Comments Range TROPONIN I (test 0.002 ng/mL See_Comment [Automated code = 7327751926) message] The system which generated this result [...] biotin. Lab Interpretation Normal (test code = 41050-4) [facility] Metabolic Panel (NA, K, CL, CO2, GLUCOSE, BUN, CREATININE, CA)2021-05-20 12:31:20 Test Item Value Reference Range Interpretation Comments NA (test code = 138 mmol/L 135-145 4633000189) K (test code = 4.2 mmol/L 3.5-5.0 5513472100) CL (test code = 106 mmol/L 98-108 4661275169) CO2 TOTAL (test code = 25 mmol/L 23-31 5393980883) AGAP (test code = 2-16 6004936426) BUN (test code = 12 mg/dL 7-23 5379823917) GLUCOSE (test code = 146 mg/dL 70-110 H 8728930692) CREATININE (test code = 0.62 mg/dL 0.50-1.04 0723272839) CALCIUM (test code = 10.0 mg/dL 8.6-10.6 5489094625) eGFR (test code = mL/min/1.73m2 5888135337) MADISYN (test code = MADISYN) Association of [...] tests). Lab Interpretation Abnormal (test code = 85544-6) [facility] with [id number] 11:49:32 Test Item Value Reference Range Interpretation Comments WBC (test code = See_Comment [Automated 5190-2) message] The sy stem which generated this result transmitted reference range : 4.30 - 11.10 10*3/?L. The reference range was not used to interpret this result as normal/abnormal . RBC (test code = See_Comment L [Automated 808-8) message] The sy stem which generated this [...] RDW-SD (test code = 40.3 fL 39.0-49.9 20325-0) RDW-CV (test code = 11.9 % 12.0-15.5 L 788-0) PLT (test code = See_Comment [Automated 777-3) message] The sy stem which generated this result transmitted reference range : 166 - 358 10*3/ ?L. The reference r aiden was not used to interpret this result as normal/abnormal . MPV (test code = 11.3 fL 9.5-12.9 93798-1) NRBC/100 WBC (test See_Comment [Automat ed code = 8823376581) message] The system which generated this result transmitted reference range : 0.0 - 10.0 /100 WBCs. The refer ence range was not u sed to interpret th is result as normal/abnormal . NRBC x10^3 (test code <0.01 See_Comment [Auto mated = 2054146985) message] The s ystem which generated this result transmitted reference range : 10*3/?L. The reference range was not used to interpret this result as normal/abnormal . GRAN MAT (NEUT) % 59.9 % (test code = 770-8) IMM GRAN % (test code 0.50 % = 5603749272) LYMPH % (test code = 30.0 % 736-9) MONO % (test code = 6.4 % 5905-5) EOS % (test code = 2.9 % 713-8) BASO % (test code = 0.3 % 706-2) GRAN MAT x10^3(ANC) 3.72 10*3/uL 1.88-7.09 (test code = 0825747827) IMM GRAN x10^3 (test 0.03 10*3/uL 0.00-0.06 code = 5640821681) LYMPH x10^3 (test code 1.86 10*3/uL 1.32-3.29 = 731-0) MONO x10^3 (test code 0.40 10*3/uL 0.33-0.92 = 742-7) EOS x10^3 (test code = 0.18 10*3/uL 0.03-0.39 711-2) BASO x10^3 (test code <0.03 0.01-0.07 = 704-7) Lab Interpretation Abnormal (test code = 86738-3) [facility] [id number] 02:24:28 Test Item Value Reference Interpretation Comments Range TROPONIN I (test 0.003 ng/mL See_Comment [Automated code = 2793888296) message] The system which generated this result [...] biotin. Lab Interpretation Normal (test code = 34445-8) [facility] Test Item Value Reference Range Interpretation Comments MAGNESIUM (test code = 3579565206) 1.9 mg/dL 1.7-2.4 Lab Interpretation (test code = Normal 09684-0) [facility] [id number] 00:20:03 Test Item Value Reference Interpretation Comments Range TROPONIN I (test 0.002 ng/mL See_Comment [Automated code = 3920148360) message] The system which generated this result [...] biotin. Lab Interpretation Normal (test code = 82157-4) [facility]. METABOLIC PANEL (25937)2021-05-20 00:09:00 Test Item Value Reference Range Interpretation Comments NA (test code = 139 mmol/L 135-145 1911230320) K (test code = 3.9 mmol/L 3.5-5.0 9978440528) CL (test code = 101 mmol/L 98-108 5202893663) CO2 TOTAL (test code = 28 mmol/L 23-31 5949068789) AGAP (test code = 2-16 2495289813) BUN (test code = 13 mg/dL 7-23 4576739476) GLUCOSE (test code = 143 mg/dL 70-110 H 7336162597) CREATININE (test code = 0.68 mg/dL 0.50-1.04 6191422866) TOTAL BILI (test code = 0.4 mg/dL 0.1-1.0 4111032537) CALCIUM (test code = 10.4 mg/dL 8.6-10.6 2153982155) T PROTEIN (test code = 8.0 g/dL 6.3-8.2 0919845095) ALBUMIN (test code = 5.0 g/dL 3.5-5.0 8588575437) ALK PHOS (test code = 93 U/L 34-122 0884396415) ALTv (test code = 21 U/L 5-35 1742-6) AST(SGOT) (test code = 31 U/L 13-40 3026519803) eGFR (test code = mL/min/1.73m2 2529411196) MADISYN (test code = MADISYN) Association of [...] tests). Lab Interpretation Abnormal (test code = 02630-6) [facility]21-[facility]14 00:08:20 Test Item Value Reference Range Interpretation Comments LIPASE (test code = 5896227078) 66 U/L 0-220 Lab Interpretation (test code = Normal 65490-6) [facility]2021-11-14 00:06:19 Test Item Value Reference Range Interpretation Comments APTT Patient (test See_Comment [Automat ed code = 3173-2) message] The system which generated this result transmitted reference range : 23 - 38 Seconds . The reference range was not used to interpr et this result as normal/abnormal . MADISYN (test code = MADISYN) The [facility] patient population mean normal value for aPTT is 30 seconds. Lab Interpretation Normal (test code = 73427-5) [facility]neyPROTHROM[facility] / [id number] 00:04:19 Test Item Value Reference Range Interpretation [...] tions. Lab Interpretation (test Normal code = 55475-3) [facility] WITH [id number] 23:55:39 Test Item Value Reference Range Interpretation Comments WBC (test code = See_Comment [Automated 3490-2) message] The sy stem which generated this [...] RDW-SD (test code = 40.4 fL 39.0-49.9 57404-5) RDW-CV (test code = 11.9 % 12.0-15.5 L 788-0) PLT (test code = See_Comment [Automated 777-3) message] The sy stem which generated this result transmitted reference range : 166 - 358 10*3/ ?L. The reference r aiden was not used to interpret this result as normal/abnormal . MPV (test code = 11.0 fL 9.5-12.9 66458-8) NRBC/100 WBC (test See_Comment [Automat ed code = 2581044090) message] The system which generated this result transmitted reference range : 0.0 - 10.0 /100 WBCs. The refer ence range was not u sed to interpret th is result as normal/abnormal . NRBC x10^3 (test code <0.01 See_Comment [Auto mated = 8999759464) message] The s ystem which generated this result transmitted reference range : 10*3/?L. The reference range was not used to interpret this result as normal/abnormal . GRAN MAT (NEUT) % 53.4 % (test code = 770-8) IMM GRAN % (test code 0.60 % = 7871922144) LYMPH % (test code = 36.2 % 736-9) MONO % (test code = 6.4 % 5905-5) EOS % (test code = 3.3 % 713-8) BASO % (test code = 0.1 % 706-2) GRAN MAT x10^3(ANC) 3.58 10*3/uL 1.88-7.09 (test code = 4907923878) IMM GRAN x10^3 (test 0.04 10*3/uL 0.00-0.06 code = 9129723461) LYMPH x10^3 (test code 2.43 10*3/uL 1.32-3.29 = 731-0) MONO x10^3 (test code 0.43 10*3/uL 0.33-0.92 = 742-7) EOS x10^3 (test code = 0.22 10*3/uL 0.03-0.39 711-2) BASO x10^3 (test code <0.03 0.01-0.07 = 704-7) Lab Interpretation Abnormal (test code = 05978-5) [facility]ney[facility]inalysis2021-03-11 03:27:11 Test Item Value Reference Range Interpretation Comments APPEARANCE (test code = Clear Clear 3904849577) COLOR (test code = Straw Yellow A 8704397382) PH (test code = 4.8-8.0 3147334750) SP GRAVITY (test code = 1.003-1.030 5532170754) GLU U QUAL (test code = 500 mg/dL Normal A 0819325332) BLOOD (test code = Negative Negative 4649300508) KETONES (test code = Negative Negative 3742231817) PROTEIN (test code = Negative Negative 2887-8) UROBILIN (test code = Normal Normal 8870553356) BILIRUBIN (test code = Negative Negative 0040493124) NITRITE (test code = Negative Negative 5333646721) LEUK KEVEN (test code = 25/uL Negative A 5096971028) RBC/HPF (test code = See_Comment [Autom ated message] 3354640774) The system [employer] generated this result transmit zoila reference range : 0 - 3 HPF. The refe rence range was not u sed to interpret th is result as normal/abnormal . WBC/HPF (test code = See_Comment [Autom ated message] 8331813817) The system [employer] generated this result transmit zoila reference range : 0 - 5 HPF. The refe rence range was not u sed to interpret th is result as normal/abnormal . BACTERIA (test code = Negative Negative 0467315996) MUCOUS (test code = Slight Negative LPF A 2196083612) SQ EPITH (test code = HPF 5536132334) Lab Interpretation (test Abnormal code = 95112-6) [facility] [id number] 03:00:28 Test Item Value Reference Range Interpretation Comments TROPONIN I (test <0.012 See_Comment [Automated code = 4558832653) message] The system which generated this result [...] ? Lab Interpretation Normal (test code = 16614-4) [facility] McKinneyN-TERMINAL [id number] 02:57:10 Test Item Value Reference Range Interpretation Comments NT-proBNP (test code 25 pg/mL See_Comment [Autom ated = 9768084721) message] The system which generated this result transmitted reference range : <=125. The reference range was not used to interpret this result as normal/abnormal . MADISYN (test code = MADISYN) Biotin has been reported to cause a negative bias, interpret results relative to patient's use of biotin. Lab Interpretation Normal (test code = 91745-8) [facility]neyBasi Metabolic Panel (NA, K, CL, CO2, GLUCOSE, BUN, CREATININE, CA)2020-09-14 02:48:49 Test Item Value Reference Range Interpretation Comments NA (test code = 135 mmol/L 135-145 2612816562) K (test code = 3.6 mmol/L 3.5-5.0 4175031186) CL (test code = 101 mmol/L 98-108 8194791301) CO2 TOTAL (test code = 23 mmol/L 23-31 8450389374) AGAP (test code = 2-16 2854308193) BUN (test code = 10 mg/dL 7-23 1632255172) GLUCOSE (test code = 296 mg/dL 70-110 H 1373467511) CREATININE (test code = 0.62 mg/dL 0.50-1.04 6266635053) CALCIUM (test code = 9.7 mg/dL 8.6-10.6 8949732521) eGFR Calculation mL/min/1.73m2 (Non-) (test code = 2936378842) eGFR Calculation mL/min/1.73m2 () (test code = 3570420052) MADISYN (test code = MADISYN) Association of [...] tests). Lab Interpretation Abnormal (test code = 48581-1) [facility]neyHepatic Function Panel (ALB, T.PRO, BILI T, BU/BC, ALT, AST, ALK PHOS)2020-09-14 02:48:48 Test Item Value Reference Range Interpretation Comments TOTAL BILI (test code = 0146610534) 0.4 mg/dL 0.1-1.1 BILI UNCON (test code = 2085406491) 0.4 mg/dL 0.1-1.1 BILI CONJ (test code = 5641612238) 0.0 mg/dL 0.0-0.3 T PROTEIN (test code = 2179438759) 7.7 g/dL 6.3-8.2 ALBUMIN (test code = 1062067116) 5.0 g/dL 3.5-5.0 ALK PHOS (test code = 0586808464) 78 U/L 34-122 ALTv (test code = 1742-6) 19 U/L 5-35 AST(SGOT) (test code = 4492356095) 25 U/L 13-40 Lab Interpretation (test code = Normal 54507-3) [facility]neyLip[facility] [id number] 02:48:48 Test Item Value Reference Range Interpretation Comments LIPASE (test code = 0733307604) 38 U/L 0-220 Lab Interpretation (test code = Normal 70440-8) [facility]neyCOVID-19 (ID NOW RAPID TESTING)2020-09-14 02:36:29 Test Item Value Reference Range Interpretation Comments SARS-CoV-2 Rapid ID NOW Positive Not Detected A (test code = 28816-0) MADISYN (test code = MADISYN) ID NOW COVID-19 Assay is an isothermal nucleic acid amplification test intended for the qualitative detection of nucleic acid from SARS-CoV-2 viral RNA in nasopharyngeal (WALL INSULATION SPRAYER) specimens. It is used under Emergency Use [...] indicated. Lab Interpretation Abnormal (test code = 90642-5) [facility]neyCBC with [id number] 02:30:06 Test Item Value Reference Range Interpretation Comments WBC (test code = See_Comment [Automated message] 6690-2) The system [employer] generated this result transmitted ref erence range: 4.30 - 1 1.10 10*3/?L. The re ference range was not u sed to interpret this result as normal/abnor mal. RBC (test code = See_Comment [Automated message] 789-8) The system [employer] generated this result transmitted ref erence range: [...] RDW-SD (test code 41.8 fL 39.0-49.9 = 64642-1) RDW-CV (test code 12.8 % 12.0-15.5 = 788-0) PLT (test code = See_Comment [Automated message] 777-3) The system whic h generated this result transmitted ref erence range: 166 - 35 8 10*3/?L. The re ference range was not u sed to interpret this result as normal/abnor mal. MPV (test code = 11.2 fL 9.5-12.9 52024-7) NRBC/100 WBC (test See_Comment [Automat ed message] code = [id number]) The syste m which generated this result transmitted ref erence range: 0.0 - 10 .0 /100 WBCs. The refer ence range was not u sed to interpret this result as normal/abnor mal. NRBC x10^3 (test <0.01 See_Comment [Automated message] code = 3142830341) The syste m which generated this result transmitted ref erence range: 10*3/?L. The reference range was not used to interpr et this result as normal/abnormal . GRAN MAT (NEUT) % 54.0 % (test code = 770-8) IMM GRAN % (test 0.70 % code = 3241303944) LYMPH % (test code 36.2 % = 736-9) MONO % (test code 6.0 % = 5905-5) EOS % (test code = 2.8 % 713-8) BASO % (test code 0.3 % = 706-2) GRAN MAT 3.13 10*3/uL 1.88-7.09 x10^3(ANC) (test code = 4503983549) IMM GRAN x10^3 0.04 10*3/uL 0.00-0.06 (test code = 1111729640) LYMPH x10^3 (test 2.10 10*3/uL 1.32-3.29 code = 731-0) MONO x10^3 (test 0.35 10*3/uL 0.33-0.92 code = 742-7) EOS x10^3 (test 0.16 10*3/uL 0.03-0.39 code = 711-2) BASO x10^3 (test <0.03 0.01-0.07 code = 704-7) [facility] WITH [id number] 01:35:00 Test Item Value Reference Range Interpretation Comments WBC (test code = See_Comment [Automated 3688-2) message] The sy stem which generated this result transmitted reference range : 4.30 - 11.10 10*3/?L. The reference range was not used to interpret this result as normal/abnormal . RBC (test code = See_Comment [Automated 349-8) message] The sy stem which [...] RDW-SD (test code = 40.8 fL 39-49.9 75616-7) RDW-CV (test code = 12.5 % 12-15.5 788-0) PLT (test code = See_Comment [Automated 777-3) message] The sy stem which generated this result transmitted reference range : 166 - 358 10*3/ ?L. The reference r aiden was not used to interpret this result as normal/abnormal . MPV (test code = 11.0 fL 9.5-12.9 59371-0) IPF % (test code = 5.7 % 1.3-7.7 Platelet count 5215443107) measured by fluorescence method. NRBC/100 WBC (test See_Comment [Automat ed code = 9960891520) message] The system which generated this result transmitted reference range : 0.0 - 10.0 /100 WBCs. The refer ence range was not u sed to interpret th is result as normal/abnormal . NRBC x10^3 (test code <0.01 See_Comment [Auto mated = 3369446502) message] The s ystem which generated this result transmitted reference range : 10*3/?L. The reference range was not used to interpret this result as normal/abnormal . GRAN MAT (NEUT) % 60.2 % (test code = 770-8) IMM GRAN % (test code 1.60 % = 4591379075) LYMPH % (test code = 29.4 % 736-9) MONO % (test code = 6.2 % 5905-5) EOS % (test code = 2.3 % 713-8) BASO % (test code = 0.3 % 706-2) GRAN MAT x10^3(ANC) 5.31 10*3/uL 1.88-7.09 (test code = 1707257467) IMM GRAN x10^3 (test 0.14 10*3/uL 0-0.06 H code = 3364798272) LYMPH x10^3 (test code 2.59 10*3/uL 1.32-3.29 = 731-0) MONO x10^3 (test code 0.55 10*3/uL 0.33-0.92 = 742-7) EOS x10^3 (test code = 0.20 10*3/uL 0.03-0.39 711-2) BASO x10^3 (test code 0.03 10*3/uL 0.01-0.07 = 704-7) Lab Interpretation Abnormal (test code = 29328-6) [facility] - INFLUENZA A & B DIRECT [id number] 01:26:00 Test Item Value Reference Range Interpretation Comments Influenza A (test code = 87445-5) Negative Negative Influenza B (test code = 26626-1) Negative Negative Lab Interpretation (test code = Normal 25640-3) [facility] Metabolic Panel (NA, K, CL, CO2, GLUCOSE, BUN, CREATININE, CA)2019-07-28 01:21:00 Test Item Value Reference Range Interpretation Comments NA (test code = 137 mmol/L 135-145 5951472168) K (test code = 3.8 mmol/L 3.5-5 8121184897) CL (test code = 100 mmol/L 98-108 6144252144) CO2 TOTAL (test code = 24 mmol/L 23-31 5566989140) AGAP (test code = 2-16 1367920607) BUN (test code = 13 mg/dL 7-23 5305099078) GLUCOSE (test code = 245 mg/dL 70-110 H 1264704533) CREATININE (test code = 0.49 mg/dL 0.5-1.04 L 7291659450) CALCIUM (test code = 9.8 mg/dL 8.6-10.6 2997673565) eGFR Calculation mL/min/1.73m2 (Non-) (test code = 0549702767) eGFR Calculation mL/min/1.73m2 () (test code = 4514840276) MADISYN (test code = MADISYN) Association of [...] tests). Lab Interpretation Abnormal (test code = 70555-6) [facility] (ALB, T.PRO, BILI T, BU/BC, ALT, AST, ALK PHOS)2019-07-28 01:21:00 Test Item Value Reference Range Interpretation Comments TOTAL BILI (test code = 4324268396) 0.3 mg/dL 0.1-1.1 BILI UNCON (test code = 1467144699) 0.1 mg/dL 0.1-1.1 BILI CONJ (test code = 5840064347) 0.0 mg/dL 0-0.3 T PROTEIN (test code = 6128453584) 8.2 g/dL 6.3-8.2 ALBUMIN (test code = 2823016856) 5.0 g/dL 3.5-5 ALK PHOS (test code = 2851447984) 121 U/L 34-122 ALTv (test code = 1742-6) 33 U/L 5-35 AST(SGOT) (test code = 5539960567) 30 U/L 13-40 Lab Interpretation (test code = Normal 71512-1) [facility]neyRAPID STREP SCREEN FOR GROUP [id number] 01:19:00 Test Item Value Reference Range Interpretation Comments Streptococcus pyogenes (group A) Negative Negative antigen (test code = 31207-9) Lab Interpretation (test code = Normal 78246-8) [facility]neyXR CHEST 2 [id number] 00:53:20Impression: No acute cardiopulmonary changes. Small sized [...] are unremarkable. Smallsized hiatal hernia is present. [facility], Radiant Results Inft User - 07/27/2019 6:54 [...] reviewed this study and agree withthe above report.[facility] (NA, K, CL, CO2, GLUCOSE, BUN, CREATININE, CA)2019-03-11 20:52:00 Test Item Value Reference Range Interpretation Comments NA (test code = 141 mmol/L 135-145 2782225096) K (test code = 3.6 mmol/L 3.5-5 3910370256) CL (test code = 104 mmol/L 98-108 2315140969) CO2 TOTAL (test code = 24 mmol/L 23-31 0775963642) AGAP (test code = 2-16 4394199664) BUN (test code = 19 mg/dL 7-23 5803953796) GLUCOSE (test code = 161 mg/dL 70-110 H 0030552472) CREATININE (test code = 0.51 mg/dL 0.5-1.04 4007010932) CALCIUM (test code = 9.4 mg/dL 8.6-10.6 7081657486) eGFR Calculation mL/min/1.73m2 (Non-) (test code = 9825894115) eGFR Calculation mL/min/1.73m2 () (test code = 5127737844) MADISYN (test code = MADISYN) Association of [...] tests). Lab Interpretation Abnormal (test code = 57890-9) [facility] (ALB, T.PRO, BILI T, BU/BC, ALT, AST, ALK PHOS)2019-03-11 20:52:00 Test Item Value Reference Range Interpretation Comments TOTAL BILI (test code = 4313668406) 0.6 mg/dL 0.1-1.1 BILI UNCON (test code = 2894741073) 0.5 mg/dL 0.1-1.1 BILI CONJ (test code = 9001818503) 0.0 mg/dL 0-0.3 T PROTEIN (test code = 8952607547) 7.7 g/dL 6.3-8.2 ALBUMIN (test code = 2906019201) 4.9 g/dL 3.5-5 ALK PHOS (test code = 5638193292) 61 U/L 34-122 ALT(SGPT) (test code = 5270694222) 26 U/L 9-51 AST(SGOT) (test code = 6288948951) 28 U/L 13-40 Lab Interpretation (test code = Normal 86027-3) [facility] McKinneyLipase [id number] 20:52:00 Test Item Value Reference Range Interpretation Comments LIPASE (test code = 0787914710) 22 U/L 0-220 Lab Interpretation (test code = Normal 55679-0) [facility]neyaPTT2019-09-05 20:40:00 Test Item Value Reference Range Interpretation Comments APTT Patient (test See_Comment L [Automat ed code = 3173-2) message] The system which generated this result transmitted reference range : 23 - 38 Seconds . The reference range was not used to interpr et this result as normal/abnormal . MADISYN (test code = MADISYN) The [facility] patient population mean normal value for aPTT is 30 seconds. Lab Interpretation Abnormal (test code = 19788-7) [facility] McKinneyProthrombin Time (PT) / [id number] 20:38:00 Test Item Value Reference Range Interpretation [...] tions. Lab Interpretation (test Normal code = 67055-8) [facility] McKinneyCBC WITH [id number] 20:33:00 Test Item Value Reference Range Interpretation Comments WBC (test code = See_Comment [Automated 3390-2) message] The sy stem which generated this result transmitted reference range : 4.30 - 11.10 10*3/?L. The reference range was not used to interpret this result as normal/abnormal . RBC (test code = See_Comment [Automated 619-8) message] The sy stem which generated this [...] RDW-SD (test code = 44.3 fL 39-49.9 63433-5) RDW-CV (test code = 12.9 % 12-15.5 788-0) PLT (test code = See_Comment [Automated 777-3) message] The sy stem which generated this result transmitted reference range : 166 - 358 10*3/ ?L. The reference r aiden was not used to interpret this result as normal/abnormal . MPV (test code = 10.9 fL 9.5-12.9 15970-2) NRBC/100 WBC (test See_Comment [Automat ed code = 6219231130) message] The system which generated this result transmitted reference range : 0.0 - 10.0 /100 WBCs. The refer ence range was not u sed to interpret th is result as normal/abnormal . NRBC x10^3 (test code <0.01 See_Comment [Auto mated = 3144761361) message] The s ystem which generated this result transmitted reference range : 10*3/?L. The reference range was not used to interpret this result as normal/abnormal . GRAN MAT (NEUT) % 86.3 % (test code = 770-8) IMM GRAN % (test code 0.50 % = 0782771656) LYMPH % (test code = 8.8 % 736-9) MONO % (test code = 4.0 % 5905-5) EOS % (test code = 0.2 % 713-8) BASO % (test code = 0.2 % 706-2) GRAN MAT x10^3(ANC) 8.24 10*3/uL 1.88-7.09 H (test code = 5047820539) IMM GRAN x10^3 (test 0.05 10*3/uL 0-0.06 code = 5477230854) LYMPH x10^3 (test code 0.84 10*3/uL 1.32-3.29 L = 731-0) MONO x10^3 (test code 0.38 10*3/uL 0.33-0.92 = 742-7) EOS x10^3 (test code = <0.03 0.03-0.39 L 711-2) BASO x10^3 (test code <0.03 0.01-0.07 = 704-7) Lab Interpretation Abnormal (test code = 57960-5) [facility] Notes Date/Time Note Provider Source 2023-02-26 17:51:24-00:00 Formatting of this note migh t be different from the original. Lynsey Kong RN [facility] PT also refused dc vitals Electronically signed by Lynsey Kong RN at 5:51 PM CDT 2023-02-26 17:48:45-00:00 Formatting of this note migh t be different from the original. [facility] Pt given printed and verbal discharge instructions regarding dysphagia, pt signed the dc paper and threw at nurses's face. Pt did not take her dc paper upon discharge and left the room. Pt was given full explanatio n of her condition by ABEL Brower, prior to discharge. Electronically signed by Lynsey Kong RN at 5:51 PM CDT 2023-02-26 15:36:27-00:00 Formatting of this note migh t be different from the original. Lina Rao RN [facility] Pt to ed with 32 oz soda. Al ert and ambulatory via pov. Vss. C/o difficulty swallowing since January 12 after falling. Has been dealing with same issue since then with no worsening of condition. States th at liquids are worse and has had aspiration PNA. Has seen primary doctor about concerns. Went to neurologist yesterday.no new concerns. Denies any other symptoms at this time. Electronically signed by Lina Rao RN at 0 02/26/2023 3:40 PM CDT"
--- NOTE | 2023-03-09 17:54 | EDPHYS ---
Physician Documentation [facility] Name: Dolores Pérez Age: 62 yrs Sex: Female : 1960 Arrival Date: 03/09/2023 Time: 16:52 Bed 16 Private MD: ED Physician Crystal Levy HPI: 03/09 17:36 This 62 yrs old Female presents to ER via Ambulatory with complaints of Cough, Chest sp3 Pain, Upper back pain. 17:36 62-year-old female with history of diabetes, hypertension, anxiety now presents to the [facility] ED with recurrent chest pain is very similar to her multiple prior episodes that she has had. She has seen Dr. Gonzalez and also has another appointment with her PCP later this week. She denies trauma, syncope, neurodeficits, shortness of breath but does endorse mild cough. Remainder of ROS is negative.. Historical: - Allergies: 17:06 NSAIDS; iw 17:06 peanuts; iw 17:06 Prednisone; iw 17:06 sesame seed; iw 17:06 Sulfa (Sulfonamide Antibiotics); iw - Home Meds: 17:50 Alprazolam Oral [Active]; gabapentin oral [Active]; levothyroxine 50 mcg oral tablet me1 [Active]; Lipitor Oral [Active]; - PMHx: 17:06 diabetes mellitus; Anxiety; Asthma; Hypertension; Hypothyroidism; Transient cerebral iw ischemia; High Cholesterol; depressive disorder; COPD; - Immunization history:: Adult Immunizations unknown. - Social history:: Smoking status: unknown. ROS: 17:51 Constitutional: Negative for fever, chills, and weight loss, Eyes: Negative for injury, sp3 pain, redness, and discharge, Neck: Negative for injury, pain, and swelling, Abdomen/GI: Negative for abdominal pain, nausea, vomiting, diarrhea, and constipation, Back: Negative for injury and pain, MS/Extremity: Negative for injury and deformity, Skin: Negative for injury, rash, and discoloration, Neuro: Negative for headache, weakness, numbness, tingling, and seizure, Psych: Negative for depression, anxiety, suicide ideation, homicidal ideation, and hallucinations, Allergy/Immunology: Negative for hives, rash, and allergies, Endocrine: Negative for neck swelling, polydipsia, polyuria, polyphagia, and marked weight changes. 17:51 All other systems are negative. Exam: 17:51 Constitutional: This is a well developed, well nourished patient who is awake, alert, sp3 and in no acute distress. Head/Face: Normocephalic, atraumatic. Eyes: Pupils equal round and reactive to light, extra-ocular motions intact. Lids and lashes normal. Conjunctiva and sclera are non-icteric and not injected. Cornea within normal limits. Periorbital areas with no swelling, redness, or edema. ENT: Nares patent. No nasal discharge, no septal abnormalities noted. External auditory canals are clear. Oropharynx with no redness, swelling, or masses, exudates, or evidence of obstruction, uvula midline. Mucous membranes moist. Neck: Trachea midline, no thyromegaly or masses palpated, and no cervical lymphadenopathy. Supple, full range of motion without nuchal rigidity, or vertebral point tenderness. No Meningismus. Chest/axilla: Normal chest wall appearance and motion. Nontender with no deformity. No lesions are appreciated. Cardiovascular: Regular rate and rhythm with a normal S1 and S2. No gallops, murmurs, or rubs. Normal PMI, no JVD. No pulse deficits. Respiratory: Lungs have equal breath sounds bilaterally, clear to auscultation and percussion. No rales, rhonchi or wheezes noted. No increased work of breathing, no retractions or nasal flaring. Abdomen/GI: Soft, non-tender, with normal bowel sounds. No distension or tympany. No guarding or rebound. No evidence of tenderness throughout. Back: No spinal tenderness. No costovertebral tenderness. Full range of motion. Skin: Warm, dry with normal turgor. Normal color with no rashes, no lesions, and no evidence of cellulitis. MS/ Extremity: Pulses equal, no cyanosis. Neurovascular intact. Full, normal range of motion. Neuro: Awake and alert, GCS 15, oriented to person, place, time, and situation. Cranial nerves II-XII grossly intact. Motor strength 5/5 in all extremities. Sensory grossly intact. Cerebellar exam normal. Normal gait. Psych: Awake, alert, with orientation to person, place and time. Behavior, mood, and affect are within normal limits. 17:51 ECG was reviewed by the Attending Physician. EKG demonstrates normal sinus rhythm 75 bpm with normal intervals, normal QRS, normal axis, nonspecific diffuse ST/T segments without evidence of acute ischemia. Vital Signs: 17:04 BP 174 / 69; Pulse 85; Resp 16; Temp 98.2; Pulse Ox 98% on R/A; Weight 56.7 kg; Height iw 5 ft. 7 in. ; 17:46 BP 156 / 76; Pulse 75; Resp 18; Pulse Ox 98% on R/A; me1 18:20 BP 153 / 59; Pulse 70; Resp 17; Pulse Ox 97% on R/A; me1 17:04 Body Mass Index 19.58 (56.70 kg, 170.18 cm) iw MDM: 17:15 Patient medically screened. sp3 17:52 Data reviewed: vital signs, nurses notes, lab test result(s), EKG. ED course: sp3 62-year-old female with recurrent chest pain and mild cough. EKG demonstrates no acute abnormality. Troponin is negative. We will send patient home on [place] as she request something for her cough along with some Tessalon Perles. She has an appointment with her PCP this week for follow-up. There is no acute emergency or other critical pathology at this time including acute coronary syndrome, PE, aortic pathology including dissection and aneurysm, sepsis, shock.. 03/09 16:56 Order name: Troponin HS; Complete Time: 17:52 sp3 03/09 16:56 Order name: EKG; Complete Time: 16:56 sp3 03/09 16:56 Order name: EKG - Nurse/Tech; Complete Time: 17:41 sp3 Administered Medications: No medications were administered Disposition Summary: 03/09/23 17:54 Discharge Ordered Location: Home sp3 Condition: Stable sp3 Diagnosis - Cough, nonspecific chest pain now resolved sp3 Followup: sp3 - With: Private Physician - When: Upon discharge from the Emergency Department - Reason: Continuance of care Discharge Instructions: - Discharge Summary Sheet sp3 - Cough, Adult sp3 Forms: - Medication Reconciliation Form sp3 - Thank You Letter sp3 - Antibiotic Education sp3 - Prescription Opioid Use sp3 - Patient Portal Instructions sp3 - Leadership Thank You Letter sp3 Prescriptions: - Tessalon Perles 100 mg Oral Capsule - take 1 capsule by ORAL route every 8 hours As needed; 15 capsule; Refills: 0, sp3 Product Selection Permitted - Zithromax Z-[place] 250 mg Oral Tablet - take 1 tablet by ORAL route as directed for 5 days Day 1 - take two (2) tablets sp3 one time. Day 2, 3, 4 , 5 take one (1) tablet once daily.; 6 tablet; Refills: 0, Product Selection Permitted Signatures: Dispatcher [employer] Shira Garza RN RN iw Crystal Levy MD MD sp3 Breanna Jacobo RN RN me1
--- NOTE | 2023-03-09 17:54 | ER ---
Nurse's Notes [facility] Name: Dolores Pérez Age: 62 yrs Sex: Female : 1960 Arrival Date: 03/09/2023 Time: 16:52 Bed 16 Private MD: Diagnosis: Cough, nonspecific chest pain now resolved Presentation: 03/09 17:04 Chief complaint: Patient states: had a cough since January after having a fall, the cough iw is always there , it's a dry cough , thinks the she aspirated her trelegy when she fell , she has pain in her chest and shoulder when she coughs. Coronavirus screen: Client presents with at least one sign or symptom that may indicate coronavirus-19. Ebola Screen: Patient negative for fever greater than or equal to 101.5 degrees Fahrenheit, and additional compatible Ebola Virus Disease symptoms Patient denies exposure to infectious person. Patient denies travel to an Ebola-affected area in the 21 days before illness onset. No symptoms or risks identified at this time. Initial Sepsis Screen: Does the patient meet any 2 criteria? No. Patient's initial sepsis screen is negative. Does the patient have a suspected source of infection? No. Patient's initial sepsis screen is negative. Risk Assessment: Do you want to hurt yourself or someone else? Patient reports no desire to harm self or others. Onset of symptoms was January 2023. 17:04 Method Of Arrival: Ambulatory iw 17:04 Acuity: AARON 4 iw Historical: - Allergies: 17:06 NSAIDS; iw 17:06 peanuts; iw 17:06 Prednisone; iw 17:06 sesame seed; iw 17:06 Sulfa (Sulfonamide Antibiotics); iw - Home Meds: 17:50 Alprazolam Oral [Active]; gabapentin oral [Active]; levothyroxine 50 mcg oral tablet me1 [Active]; Lipitor Oral [Active]; - PMHx: 17:06 diabetes mellitus; Anxiety; Asthma; Hypertension; Hypothyroidism; Transient cerebral iw ischemia; High Cholesterol; depressive disorder; COPD; - Immunization history:: Adult Immunizations unknown. - Social history:: Smoking status: unknown. Screenin:[address] [facility] ED Fall Risk Assessment (Adult) History of falling in the last 3 months, me1 including since admission Yes- single mechanical fall (1 pt) Confusion or Disorientation No (0 pts) Intoxicated or Sedated No (0 pts) Impaired Gait No (0 pts) Mobility Assist Device Used No (0 pt) Altered Elimination No (0 pt) Score/Fall Risk Level 0 - 2 = Low Risk. Abuse screen: Denies threats or abuse. Nutritional screening: No deficits noted. Tuberculosis screening: No symptoms or risk factors identified. Assessment: 17:46 General: Appears uncomfortable, Behavior is cooperative, appropriate for age, anxious, me1 restless, Reports having a cough since she aspirated in January. Reports that she coughs so much that her back and shoulder hurt when she coughs. Denies fever, feeling ill, fatigue, chills. Pain: Complains of pain in back Pain does not radiate. Pain at worst was 10 out of 10 on a pain scale. Quality of pain is described as sharp, squeezing, Pain began since January when she aspirated. Is intermittent, Aggravated by cough. Neuro: Level of Consciousness is awake, alert, obeys commands, Oriented to person, place, time, situation, Appropriate for age. Cardiovascular: Capillary refill < 3 seconds Patient's skin is warm and dry. Respiratory: Reports cough that is non-productive, dry, persistent since January when she aspirated. Airway is patent Respiratory effort is even, unlabored, Respiratory pattern is regular, symmetrical. Vital Signs: 17:04 BP 174 / 69; Pulse 85; Resp 16; Temp 98.2; Pulse Ox 98% on R/A; Weight 56.7 kg; Height iw 5 ft. 7 in. ; 17:46 BP 156 / 76; Pulse 75; Resp 18; Pulse Ox 98% on R/A; me1 18:20 BP 153 / 59; Pulse 70; Resp 17; Pulse Ox 97% on R/A; me1 17:04 Body Mass Index 19.58 (56.70 kg, 170.18 cm) iw ED Course: 16:54 Patient arrived in ED. im 16:55 Crystal Levy MD is Attending Physician. sp3 17:06 Triage completed. iw 17:06 Arm band placed on. iw 17:19 Troponin HS Sent. iw 17:32 Breanna Jacobo, RN is Primary Nurse. me1 17:46 Patient has correct armband on for positive identification. Bed in low position. Call me1 light in reach. Side rails up X2. Provided Education on: POC. Verbalized understanding.. Client placed on continuous cardiac and pulse oximetry monitoring. NIBP monitoring applied. 17:46 No provider procedures requiring assistance completed. Flushed right forearm. Patient me1 maintains SpO2 saturation greater than 95% on room air. 17:52 Inserted saline lock: 22 gauge in right forearm, using aseptic technique. me1 18:25 IV discontinued, intact, bleeding controlled, No redness/swelling at site. Pressure me1 dressing applied. Administered Medications: No medications were administered Medication: 17:46 VIS not applicable for this client. me1 Outcome: 17:54 Discharge ordered by . spCole 18:25 Discharged to home ambulatory. me1 18:25 Condition: stable 18:25 Discharge instructions given to patient, Instructed on discharge instructions, follow up and referral plans. medication usage, Demonstrated understanding of instructions, follow-up care, medications, Prescriptions given X 1. 18:26 Patient left the ED. me1 Signatures: Shira Madrigal RN RN iw Crystal Levy MD MD sp3 Jenn Brady Michelle, RN RN me1 Corrections: (The following items were deleted from the chart) 17:46 17:04 Chief complaint: Patient states: had a cough since January after having a fall, the me1 cough is always there , it's a dry cough , thinks the she aspirated her trelegy when she fell , she has pain in her chest and shoulder when she coughs iw
[2023-03-09 19:23] VITALS: TEMP 98.2
[2023-03-09 19:24] VITALS: BP 153/59; O2SAT 97
--- NOTE | 2023-03-11 16:51 | EKG ---
Test Date: 2023-03-09 Test Time: 17:39:02 Dispatcher Relay: MEASUREMENT RESULTS: Intervals: Rate: 75 ME: 170 QRSD: 92 QT: 392 QTc: 437 [place]: P: 53 ME: 170 QRS: 57 T: 100 INTERPRETIVE STATEMENTS: Normal sinus rhythm Nonspecific ST and T wave abnormality Abnormal ECG Compared to ECG 02/11/2023 16:38:39 No significant changes Electronically Signed On 03-11-23 16:45:28 CDT by Stephen Childress
== END 2023-03-09 18:26 | disposition home or self-care (01) ==
LOC: ER 16:52
DX: R05.9 Cough, unspecified (principal); F41.9 Anxiety disorder, unspecified; I10 Essential (primary) hypertension; E11.9 Type 2 diabetes mellitus without complications; E03.9 Hypothyroidism, unspecified; Z88.2 Allergy status to sulfonamides; Z88.6 Allergy status to analgesic agent; Z91.010 Allergy to peanuts; Z91.018 Allergy to other foods
CPT/HCPCS: 36415; 84484; 93005; 99284

== ENCOUNTER 2023-03-21 16:29 | Emergency (ER) | payer OTHER ==
--- OUTSIDE RECORDS SUMMARY | 2023-03-21 16:37 | XMS REPORT | Continuity of Care Document ---
:1960 Author Organization [facility] t Address [address] [facility] [address] [place] [address] Care Team Providers Name Role Phone PAULINA DUNHAM Primary Care Physician Unavailable Neida DUGGAN Attending Clinician Unavailable Neida Jiménez Attending Clinician Susan Rodriguez Attending Clinician Unknown, Attending Attending Clinician Unavailable SUSAN LEE Attending Clinician Unavailable Doctor Unassigned, [place] Attending Clinician Unavailable Only, Ang Db Test Attending Clinician Unavailable Monik Charles MD Attending Clinician MONIK CHARLES Attending Clinician Unavailable ALEX OCONNELL Attending Clinician Unavailable ConcordAlex Alarcon Attending Clinician SHERRILL CONNOR Attending Clinician [...] Effective Date Expiration Date Teodora FALK II [id number] 2016 00:00:00 Problems Condition Condition Condition Status [...] to 4-10 ity of mide adverse 00:00: [place] Antibiot reaction 00 Medica l ics) s Branch Social History Social Habit Start Date Stop Date Quantity Comments Source Gender identity [facility] Social 2023-02-26 2023-02-26 Univers ity of function 00:00:00 00:00:00 [facility] Exposure to 2022-08-14 2022-08-24 Not sure [facility] SARS-CoV-2 (event) 00:00:00 09:35:00 [facility] Tobacco use and 2022-08-24 2022-08-24 Smokeless Universit y of exposure 00:00:00 00:00:00 tobacco non-user [facility] Sex Assigned At [birth year] Universit [facility] of 00:00:00 00:00:00 [facility] Smoking Status Start Date Stop Date Source Never smoked tobacco [facility] Medications Ordered Filled Start Stop Current Ordering Indication Dosage Frequency Signature Comments Components Source Medication Medication Date Date Medication? Clinician (SIG) Name Name bromphenira Yes [id number] 5mL Take 5 mL Univers mine-pseudo 2-18 by mouth 4 it y of ephedrine-D 00:00[place] ([place] (BROMFED 00 times Medical DM) 2-30-10 daily as Bran ch mg/5 mL needed for syrup Congestion /Allergies . bromphenira Yes [id number] 5mL Take 5 mL Univers mine-pseudo 2-18 by mouth 4 it y of ephedrine-D 00:00: (four[place] (BROMFED 00 times Medical DM) 2-30-10 daily as Bran ch mg/5 mL needed for syrup Congestion /Allergies . benzonatate Yes [id number] 100mg Take 1 Univers 100 mg 7-03 capsule by ity of capsule 00:00: mouth 3 [place] 00 (three) Medical times [place] daily as needed for Cough. loratadine Yes [id number] 10mg Take 1 U nivers (CLARITIN) 7-03 tablet by ity of 10 mg 00:00: mouth at [place] tablet 00 bedtime as Medical needed for Branch Allergies. benzonatate 2022-0 Yes [id number] 100mg Take 1 Univers 100 mg 7-03 capsule by ity of capsule 00:00: mouth 3 [place] 00 (three) Medical times Branch daily as needed for Cough. loratadine 2-0 Yes [id number] 10mg Take 1 U nivers (CLARITIN) 7-03 tablet by ity of 10 mg 00:00: mouth at [place] tablet 00 bedtime as Medical needed for Branch Allergies. benzonatate 2-0 Yes [id number] 100mg Take 1 Univers 100 mg 7-03 capsule by ity of capsule 00:00: mouth 3 [place] 00 (three) Medical times Branch daily as needed for Cough. loratadine 2-0 Yes [id number] 10mg Take 1 U nivers (CLARITIN) 7-03 tablet by ity of 10 mg 00:00: mouth at [place] tablet 00 bedtime as Medical needed for Branch Allergies. benzonatate 2-0 Yes [id number] 100mg Take 1 Univers 100 mg 7-03 capsule by ity of capsule 00:00: mouth 3 (three) Medical times Branch daily as needed for Cough. loratadine 2-0 Yes [id number] 10mg Take 1 U nivers (CLARITIN) 7-03 tablet by ity of 10 mg 00:00: mouth at [place] tablet 00 bedtime as Medical needed for Branch Allergies. benzonatate 2-0 Yes [id number] 100mg Take 1 Univers 100 mg 7-03 capsule by ity of capsule 00:00: mouth 3 00 (three) Medical times Branch daily as needed for Cough. loratadine 2-0 Yes [id number] 10mg Take 1 U nivers (CLARITIN) 7-03 tablet by ity of 10 mg 00:00: mouth at [place] tablet 00 bedtime as Medical needed for Branch Allergies. benzonatate 2022-0 Yes [id number] 100mg Take 1 Univers 100 mg 7-03 capsule by ity of capsule 00:00: mouth 3 [place] 00 (three) Medical times Branch daily as needed for Cough. loratadine 2022-0 Yes [id number] 10mg Take 1 U nivers (CLARITIN) 7-03 tablet by ity of 10 mg 00:00: mouth at [place] tablet 00 bedtime as Medical needed for Branch Allergies. benzonatate 2021-0 Yes [id number] 100mg Take 1 Univers 100 mg 2-01 capsule by ity of capsule 00:00: mouth 3 (three) Medical times Branch daily as needed for Cough. benzonatate 2021-0 Yes [id number] 100mg Take 1 Univers 100 mg 2-01 capsule by ity of capsule 00:00: mouth 3 (three) Medical times Branch daily as needed for Cough. benzonatate 2021-0 Yes [id number] 100mg Take 1 Univers 100 mg 2-01 capsule by ity of capsule 00:00: mouth (three) Medical times Branch daily as needed for Cough. benzonatate 2021-0 Yes [id number] 100mg Take 1 Univers 100 mg 2-01 capsule by ity of capsule 00:00: mouth (three) Medical times Branch daily as needed for Cough. benzonatate 2021-0 Yes [id number] 100mg Take 1 Univers 100 mg 2-01 capsule by ity of capsule 00:00: mouth (three) Medical times Branch daily as needed for Cough. benzonatate 2021-0 Yes [id number] 100mg Take 1 Univers 100 mg 2-01 capsule by ity of capsule 00:00: mouth (three) Medical times Branch daily as needed for Cough. benzonatate 2021-0 Yes [id number] 100mg Take 1 Univers 100 mg 2-01 capsule by ity of capsule 00:00: mouth (three) Medical times Branch daily as needed for Cough. benzonatate 2021-0 Yes [id number] 100mg Take 1 Univers 100 mg 2-01 capsule by ity of capsule 00:00: mouth (three) Medical times Branch daily as needed for Cough. benzonatate 2021-0 Yes [id number] 100mg Take 1 Univers 100 mg 2-01 capsule by ity of capsule 00:00: mouth (three) Medical times Branch daily as needed for Cough. benzonatate 2-0 Yes [id number] 100mg Take 1 Univers 100 mg 2-01 [...] Therapy: Other (see Comments) iopamidol 2020-07- No [id number] 120mL 120 mL, Univers (ISOVUE 2-25 12-24 Intravenou ity o f 370-500 mL) 00:15: 23:08 s, ONCE, 1 [place] injection 00 :00 dose, On Medica l 120 mL Fri Branch 06/29/21 at 1815, Routine amoxicillin 2020-07- No [id number] 1{tbl} Take 1 Univers -clavulanat 2-24 -04 [...] Indication s: acute pain ondansetron 2020-07- No [id number] 4mg Take 1 Univers 4 mg tablet 2-24 12-30 tablet by it y of 00:00: 05:59 mouth [place] 00 :00 every 8 Medical (eight) Branch hours for 5 days. atorvastati 2020-07 Yes 10mg 10 mg, Univ ers n (LIPITOR) 1-15 Oral, QHS, it y of tablet 10 03:00: First dose [place] mg 00 on [facility] 05/20/21 Branch at 2100, Until Discontinu ed, Routine atorvastati 2020-07 Yes 10mg Take 10 mg Univers n 10 mg 1-14 by mouth ity of tablet 17:23: at [place] 01 bedtime. Medical Branch spironolact 2020-07 Yes [...] 00 First dose Medical on [facility] 05/20/21 at 0900, Until Discontinu ed, Routine clopidogreL 2020-07 Yes 75mg 75 mg, Univ ers (PLAVIX) 1-14 Oral, QAM, ity o f tablet 75 15:00: First dose [place] mg 00 on [facility] 05/20/21 Branch at 0900, Until Discontinu ed, Routine ALPRAZolam 2020-07 Yes .5mg 0.5 mg, Univ ers (XANAX) 1-14 Oral, ity of tablet 0.5 15:00: DAILY, [place] mg 00 First dose Medical on [facility] 05/20/21 at 0900, Until Discontinu ed, Routine spironolact 2020-07 Yes 25mg 25 mg, Univ ers one 1-14 Oral, BID, ity of (ALDACTONE) 14:00: First dose [place] tablet 25 00 on [facility] mg 05/20/21 Branch at 0800, Until Discontinu ed, Routine Sliding 2020-07 Yes Subcutaneo Univ ers Scale 1-14 us, AC, ity of Insulin-Reg 13:30: First dose [place] ular + Fsbg 00 on [facility] 05/20/21 Branch at 0730, Until Discontinu ed, Routine levothyroxi 2020-07 Yes 100ug 100 mcg, U nivers ne 1-14 Oral, ity of (SYNTHROID) 12:00: QAM-0600, [place] tablet 100 00 First dose Med ical mcg on [facility] 05/20/21 at 0600, Until Discontinu ed, Routine pantoprazol 2020-07 Yes 40mg 40 mg, Univ ers e 1-14 Oral, ity of (PROTONIX) 06:30: DAILY, [place] EC tablet 00 First dose Medi hermelindo 40 mg (after Branch last modificati on) on [place] 05/20/21 at 0030, Until Discontinu ed cyclobenzap 2020-07 Yes 10mg 10 mg, Univ ers rine 1-14 Oral, ity of (FLEXERIL) 06:12: TIDPRN, [place] tablet 10 13 Starting Medica l mg on [facility] 05/20/21 at 0012, Until Discontinu ed, Routine, Muscle Spasms, leg pain polyethylen 2020-07 Yes 17g 17 g, Unive rs e glycol 1-14 Oral, ity of 3350 powder 06:04: [id number], [place] 17 g 16 Starting Medical on [facility] 05/20/21 at 0004, Until Discontinu ed, Routine, Constipati on glucagon 2020-07 Yes 1mg 1 mg, Univers (GLUCAGEN -14 Intramuscu ity of DIAGNOSTIC 05:29: lar, PRN, [place] KIT) 29 Starting Medical injection 1 on [facility] 05/19/21 at 2329, Until Discontinu ed, JEFFREY, Blood Glucose < or = 70 mg/dL and patient is unable to swallow or has mental changes. dextrose 50 2020-07 Yes 25mL 25 mL, Univ ers % in water 14 Slow IV ity of (D50W) 05:29: Push, PRN, [place] injection 29 Starting Medica l 25 mL on [facility] 05/19/21 at 2329, Until Discontinu ed, JEFFREY, Blood Glucose < or = 70 mg/dL and patient is unable to swallow or has mental status changes. ondansetron 2020-07 Yes 4mg 4 mg, Slow Univers (ZOFRAN 1-14 IV Push, ity of (PF)) 05:29: Q6HPRN, [place] injection 4 21 Starting Medi hermelindo mg on [facility] 05/19/21 at 2329, Until Discontinu ed, Routine, Nausea and Vomiting (N/V) morpHINE 2020-07 No 2mg 2 mg, Slow Un brice injection 2 14 11-15 IV Push, ity of mg 05:29: 05:28 Q4HPRN, [place] 11 :11 Starting Medical on [facility] Branch 05/19/21 at 2329, Until 05/20/21 at 2328, Routine, Pain (scale 7-10), Chest pain traMADoL 2020-07- No 50mg 50 mg, Univer s (ULTRAM) 07-2016 Oral, ity of tablet 50 05:29: 05:28 Q8HPRN, [place] mg 08 :08 Starting Medical on [facility] Branch 05/19/21 at 2329, Until 05/21/21 at 2328, Routine, Pain (scale 4-6) acetaminoph 2020-07 Yes 650mg 650 mg, Un brice en 14 Oral, ity of (TYLENOL) 05:29: Q6HPRN, [place] tablet 650 05 Starting Medic al mg on [facility] Branch 05/19/21 at 2329, Until Discontinu ed, Routine, Pain (scale 1-3) omeprazole 2020-07- No 20mg Take 20 mg Univers 20 mg 07-19 by mouth ity of capsule 23:30: 00:00 daily. [place] 33 :00 [facility] guaiFENesin 2020- No 100mg 100 mg, U nivers 100 mg/5 mL 09-14 Oral, ity of solution 05:00: 16:59 ONCE, 1 [place] 100 mg 00 :00 dose, Fri [facility] 09/13/20 at Branch 2300, Routine ketorolac 2020- No 30mg 30 mg, Unive rs (TORADOL) 09-1411 Slow IV ity of injection 03:30: 02:27 Push, [place] 30 mg 00 :00 ONCE, 1 Medical dose, [facility] 09/13/20 at 2130, JEFFREY
Fa culty member approving Restricted medication : DIANA BERG benzonatate Yes [id number] 100mg Take 1 Univers 100 mg 3-10 capsule by ity of capsule 00:00: mouth 3 [place] 00 (three) Medical times Branch daily as needed for Cough. benzonatate Yes [id number] 100mg Take 1 Univers 100 mg 3-10 capsule by ity of capsule 00:00: mouth 3 [place] 00 (three) Medical times Branch daily as needed for Cough. benzonatate 2020- No [id number] 100mg Take 1 Univers 100 mg 09-13- [...] 10 1929, JEFFREY mL codeine-gua 2019-0 Yes [id number] 10mL Take 10 mL Univers ifenesin -21 by mouth ity of 10-100 mg/5 00:00: every 6 [place] as mL solution 00 (six) Medical hours as Branch needed for Cough. albuterol 2020-0 Yes [id number] 2.5mg Inhale 3 Univers 2.5 mg /3 1-21 mL every 4 ity of mL (0.083 00:00: (four) [place] %) 00 hours as Medical nebulizer needed for Bran ch solution Wheezing or Shortness of Breath. May also nebulize one extra every 6 hours. albuterol 2020-0 Yes [id number] 2.5mg Inhale 3 Univers 2.5 mg /3 1-21 mL every 4 ity of mL (0.083 00:00: (four) [place] %) 00 hours as Medical nebulizer needed for Bran ch solution Wheezing or Shortness of Breath. May also nebulize one extra every 6 hours. albuterol 2020-0 Yes [id number] 2.5mg Inhale 3 Univers 2.5 mg /3 1-21 mL every 4 ity of mL (0.083 00:00: (four) [place] %) 00 hours as Medical nebulizer needed for Bran ch solution Wheezing or Shortness of Breath. May also nebulize one extra every 6 hours. albuterol 2020-0 Yes [id number] 2.5mg Inhale 3 Univers 2.5 mg /3 1-21 mL every 4 ity of mL (0.083 00:00: (four) [place] %) 00 hours as Medical nebulizer needed for Bran ch solution Wheezing or Shortness of Breath. May also nebulize one extra every 6 hours. albuterol 2020-0 Yes [id number] 2.5mg Inhale 3 Univers 2.5 mg /3 1-21 mL every 4 ity of mL (0.083 00:00: (four) [place] %) 00 hours as Medical nebulizer needed for Bran ch solution Wheezing or Shortness of Breath. May also nebulize one extra every 6 hours. albuterol 2020-0 Yes [id number] 2.5mg Inhale 3 Univers 2.5 mg /3 1-21 mL every 4 ity of mL (0.083 00:00: ([facility]) [place] %) 00 hours as Medical nebulizer needed for Bran ch solution Wheezing or Shortness of Breath. May also nebulize one extra every 6 hours. albuterol 2020-0 Yes [id number] 2.5mg Inhale 3 Univers 2.5 mg /3 1-21 mL every 4 ity of mL (0.083 00:00: (four) [place] %) 00 hours as Medical nebulizer needed for Bran ch solution Wheezing or Shortness of Breath. May also nebulize one extra every 6 hours. albuterol 2020-0 Yes [id number] 2.5mg Inhale 3 Univers 2.5 mg /3 1-21 mL every 4 ity of mL (0.083 00:00: (four) [place] %) 00 hours as Medical nebulizer needed for Bran ch solution Wheezing or Shortness of Breath. May also nebulize one extra every 6 hours. albuterol 2020-0 Yes [id number] 2.5mg Inhale 3 Univers 2.5 mg /3 1-21 mL every 4 ity of mL (0.083 00:00: (four) [place] %) 00 hours as Medical nebulizer needed for Bran ch solution Wheezing or Shortness of Breath. May also nebulize one extra every 6 hours. albuterol 2020-0 Yes [id number] 2.5mg Inhale 3 Univers 2.5 mg /3 1-21 mL every 4 ity of mL (0.083 00:00: (four) [place] %) 00 hours as Medical nebulizer needed for Bran ch solution Wheezing or Shortness of Breath. May also nebulize one extra every 6 hours. albuterol 2020-0 Yes [id number] 2.5mg Inhale 3 Univers 2.5 mg /3 1-21 mL every 4 ity of mL (0.083 00:00: (four) [place] %) 00 hours as Medical nebulizer needed for Bran ch solution Wheezing or Shortness of Breath. May also nebulize one extra every 6 hours. albuterol 2020-0 Yes [id number] 2.5mg Inhale 3 Univers 2.5 mg /3 1-21 mL every 4 ity of mL (0.083 00:00: (four) [place] %) 00 hours as Medical nebulizer needed for Bran ch solution Wheezing or Shortness of Breath. May also nebulize one extra every 6 hours. albuterol 2020-0 Yes [id number] 2.5mg Inhale 3 Univers 2.5 mg /3 1-21 mL every 4 ity of mL (0.083 00:00: (four) [place] %) 00 hours as Medical nebulizer needed for Bran ch solution Wheezing or Shortness of Breath. May also nebulize one extra every 6 hours. albuterol 2020-0 Yes [id number] 2.5mg Inhale 3 Univers 2.5 mg /3 1-21 mL every 4 ity of mL (0.083 00:00: (four) [place] %) 00 hours as Medical nebulizer needed for Bran ch solution Wheezing or Shortness of Breath. May also nebulize one extra every 6 hours. albuterol 2020-0 Yes [id number] 2.5mg Inhale 3 Univers 2.5 mg /3 1-21 mL every 4 ity of mL (0.083 00:00: (four) [place] %) 00 hours as Medical nebulizer needed for Bran ch solution Wheezing or Shortness of Breath. May also nebulize one extra every 6 hours. albuterol 2020-0 Yes [id number] 2.5mg Inhale 3 Univers 2.5 mg /3 1-21 mL every 4 ity of mL (0.083 00:00: (four) [place] %) 00 hours as Medical nebulizer needed for Bran ch solution Wheezing or Shortness of Breath. May also nebulize one extra every 6 hours. codeine-gua 2020- No [id number] 10mL Take 10 mL Univers ifenesin 07-27 [...] 03/11/19 at 1430, JEFFREY dicyclomine 2018- Yes [id number] 10mg Take 1 Univers (BENTYL) 10 9-05 capsule by it y of mg capsule 00:00: mouth 4 [place] 00 (four) Medical times Branch daily. ondansetron 2018- Yes [id number] 4mg Take 1 Univers 4 mg 9-05 tablet by ity of disintegrat 00:00: mouth [place] ing tablet 00 every 4 Medica l (four) Branch hours as needed for Nausea and Vomiting (N/V). dicyclomine 2019-0 Yes [id number] 10mg Take 1 Univers (BENTYL) 10 9-05 capsule by it y of mg capsule 00:00: mouth 4 [place] 00 (four) Medical times Branch daily. ondansetron 2019-0 Yes [id number] 4mg Take 1 Univers 4 mg 9-05 tablet by ity of disintegrat 00:00: mouth [place] ing tablet 00 every 4 Medica l (four) Branch hours as needed for Nausea and Vomiting (N/V). dicyclomine 2019-0 Yes [id number] 10mg Take 1 Univers (BENTYL) 10 9-05 capsule by it y of mg capsule 00:00: mouth 4 [place] 00 (four) Medical times Branch daily. ondansetron Yes [id number] 4mg Take 1 Univers 4 mg 9-05 tablet by ity of disintegrat 00:00: mouth [place] ing tablet 00 every 4 Medica l (four) Branch hours as needed for Nausea and Vomiting (N/V). dicyclomine 2020- No [id number] 10mg Take 1 Univers (BENTYL) 10 9-05 03-10 capsule by i ty of mg capsule 00:00: 00:00 mouth 4 [place] as 00 :00 (four) Medical times Branch daily. ondansetron 2020- No [id number] 4mg Take 1 Univers 4 mg 9-05 [...] by mouth ity of tablet 14:40: at [place] [address] bedtime. Medical Branch omeprazole 2018-0 Yes 20mg Take 20 mg U nivers 20 mg 4-10 by mouth ity of capsule 14:40: daily. [place] [address] Medical Branch atorvastati 2018-0 Yes 10mg Take 10 mg Univers n 10 mg 4-10 by mouth ity of tablet 14:40: at [place] [address] bedtime. Medical Branch omeprazole 2018-0 Yes 20mg Take 20 mg U nivers 20 mg 4-10 by mouth ity of capsule 14:40: daily. [place] [address] Medical Branch atorvastati 2017-0 Yes 10mg Take 10 mg Univers n 10 mg 4-10 by mouth ity of tablet 14:40: at [place] [address] bedtime. Medical Branch omeprazole 2018-0 Yes 20mg Take 20 mg U nivers 20 mg 4-10 by mouth ity of capsule 14:40: daily. [place] [address] Medical Branch atorvastati 2017-0 Yes 10mg Take 10 mg Univers n 10 mg 4-10 by mouth ity of tablet 14:40: at [place] [address] bedtime. Medical Branch omeprazole 2017-0 Yes 20mg Take 20 mg U nivers 20 mg 4-10 by mouth ity of capsule 14:40: daily. [place] [address] Medical Branch atorvastati 2017-0 Yes 10mg Take 10 mg Univers n 10 mg 4-10 by mouth ity of tablet 14:40: at [place] [address] bedtime. Medical Branch omeprazole 2018-0 Yes 20mg Take 20 mg U nivers 20 mg 4-10 by mouth ity of capsule 14:40: daily. [place] [address] Medical Branch levothyroxi 0 Yes TAKE 1 Univ ers ne 125 mcg 4-10 TABLET BY ity of tablet 00:00: MOUTH [place] 00 EVERY Medical MORNING Branch levothyroxi 2017-0 Yes TAKE 1 Univ ers ne 125 mcg 4-10 TABLET BY ity of tablet 00:00: MOUTH [place] EVERY Medical MORNING Branch levothyroxi 2018-0 Yes TAKE 1 Univ ers ne 125 mcg 4-10 TABLET BY ity of tablet 00:00: MOUTH [place] EVERY Medical MORNING Branch levothyroxi 2017-0 Yes TAKE 1 Univ ers ne 125 mcg 4-10 TABLET BY ity of tablet 00:00: MOUTH [place] EVERY Medical MORNING Branch levothyroxi 2018-0 Yes [...] TABLET BY ity of tablet 00:00: MOUTH [place] 00 EVERY Medical MORNING Branch clopidogrel 2018-0 Yes TAKE 1 Univ ers 75 mg 2-06 TABLET BY ity of tablet 00:00: MOUTH [place] 00 EVERY Medical MORNING Branch clopidogrel 2018-0 Yes TAKE 1 Univ ers 75 mg 2-06 TABLET BY ity of tablet 00:00: MOUTH [place] 00 EVERY Medical MORNING Branch clopidogrel 2018-0 Yes TAKE 1 Univ ers 75 mg 2-06 TABLET BY ity of tablet 00:00: MOUTH [place] 00 EVERY Medical MORNING Branch clopidogrel 2018-0 Yes TAKE 1 Univ ers 75 mg 2-06 TABLET BY ity of tablet 00:00: MOUTH [place] 00 EVERY Medical MORNING Branch clopidogrel 2018-0 Yes TAKE 1 Univ ers 75 mg 2-06 TABLET BY ity of tablet 00:00: MOUTH [place] 00 EVERY Medical MORNING Branch clopidogrel 2018-0 Yes TAKE 1 Univ ers 75 mg 2-06 TABLET BY ity of tablet 00:00: MOUTH [place] 00 EVERY Medical MORNING Branch clopidogrel 2018-0 Yes TAKE 1 Univ ers 75 mg 2-06 TABLET BY ity of tablet 00:00: MOUTH [place] 00 EVERY Medical MORNING Branch clopidogrel 2018-0 Yes TAKE 1 Univ ers 75 mg 2-06 TABLET BY ity of tablet 00:00: [facility] 00 EVERY Medical MORNING Branch clopidogrel 2018-0 Yes TAKE 1 Univ ers 75 mg 2-06 TABLET BY ity of tablet 00:00: MOUTH [place] 00 EVERY Medical MORNING Branch clopidogrel 2018-0 Yes TAKE 1 Univ ers 75 mg 2-06 TABLET BY ity of tablet 00:00: MOUTH [place] 00 EVERY Medical MORNING Branch clopidogrel 2018-0 Yes TAKE 1 Univ ers 75 mg 2-06 TABLET BY ity of tablet 00:00: MOUTH [place] 00 EVERY Medical MORNING Branch clopidogrel 2018-0 Yes TAKE 1 Univ ers 75 mg 2-06 TABLET BY ity of tablet 00:00: MOUTH [place] 00 EVERY Medical MORNING Branch clopidogrel 2018-0 Yes TAKE 1 Univ ers 75 mg 2-06 TABLET BY ity of tablet 00:00: MOUTH [place] 00 EVERY Medical MORNING Branch clopidogrel 2018-0 [...] 20:38:00 149 mm[Hg] Univer sity of pressure [place] Medical [place] Diastolic blood 2023-02-26 20:38:00 75 mm[Hg] Unive rsity of [facility] Heart rate 2023-02-26 20:38:00 81 /min Universi ty of [facility] Body temperature 2023-02-26 20:38:00 36.72 Brittany [facility] 2023-02-26 20:38:00 18 /min [facility] Body height 2023-02-26 20:38:00 170.2 cm Universi ty of [facility] Body weight 2023-02-26 20:38:00 57.607 kg Universi ty of [facility] BMI 2023-02-26 20:38:00 19.89 kg/m2 Universi ty [facility] Oxygen saturation in 2023-02-26 20:38:00 100 /min [facility] Arterial blood by [facility] Pulse oximetry Branch Systolic blood 2022-08-24 15:43:00 135 mm[Hg] Univer sity of [facility] Diastolic blood 2022-08-24 15:43:00 83 mm[Hg] Unive rsity of [facility] Heart rate 2022-08-24 15:43:00 94 /min Universi ty of [facility] Body temperature 2022-08-24 15:43:00 36.83 Brittany Univ ersity of [facility] Respiratory rate 2022-08-24 15:43:00 18 /min Univ ersity of [facility] Body height 2022-08-24 15:43:00 170.2 cm Universi ty of [facility] Body weight 2022-08-24 15:43:00 58.968 kg Universi ty of [facility] BMI 2022-08-24 15:43:00 20.36 kg/m2 Universi ty of [place] [facility] Oxygen saturation in 2022-08-24 15:43:00 99 /min University of Arterial blood by [facility] hermelindo Pulse oximetry Branch Systolic blood 2022-01-08 02:02:00 147 mm[Hg] Univer sity of pressure [place] [facility] Diastolic blood 2022-01-08 02:02:00 78 mm[Hg] Unive rsity of pressure [place] [facility] Heart rate 2022-01-08 02:02:00 78 /min Universi ty of [place] [facility] Respiratory rate 2022-01-08 02:02:00 18 /min Univ ersity of [place] [facility] Oxygen saturation in 2022-01-08 02:02:00 100 /min University of Arterial blood by [facility] Pulse oximetry Branch Body temperature 2022-01-07 23:24:00 37.17 Brittany Univ ersity of [place] [facility] Body weight 2022-01-07 23:24:00 58.968 kg Universi ty of [place] [facility] BMI 2022-01-07 23:24:00 20.36 kg/m2 Universi ty of [place] [facility] Systolic blood 2022-01-06 20:29:00 140 mm[Hg] Univer sity of pressure [place] [facility] Diastolic blood 2022-01-06 20:29:00 106 mm[Hg] Unive rsity of pressure [place] [facility] Heart rate 2022-01-06 20:29:00 102 /min Universi ty of [place] [facility] Body temperature 2022-01-06 20:29:00 37.5 Brittany Univ ersity of [place] [facility] Respiratory rate 2022-01-06 20:29:00 16 /min Univ ersity of [place] [facility] Body height 2022-01-06 20:29:00 170.2 cm Universi ty of [place] [facility] Body weight 2022-01-06 20:29:00 58.968 kg [facility] BMI 2022-01-06 20:29:00 20.36 kg/m2 [facility] Oxygen saturation in 2022-01-06 20:29:00 99 /min [facility] Arterial blood by [facility] Pulse oximetry Branch Systolic blood 2021-09-02 01:52:00 132 mm[Hg] [facility] [place] [facility] Diastolic blood 2021-09-02 01:52:00 75 mm[Hg] [facility] [place] [facility] Heart rate 2021-09-02 01:52:00 67 /min [facility] Respiratory rate 2021-09-02 01:52:00 16 /min [facility] [place] [facility] Oxygen saturation in 2021-09-02 01:52:00 99 /min [facility] Arterial blood by [facility] Pulse oximetry Branch Body temperature 2021-09-01 23:57:00 36.17 Brittany [facility] [place] [facility] Body height 2021-09-01 23:57:00 170.2 cm [facility] Body weight 2021-09-01 23:57:00 58.968 kg [facility] BMI 2021-09-01 23:57:00 20.36 kg/m2 [facility] Systolic blood 2021-08-07 15:57:00 165 mm[Hg] [facility] [place] [facility] Diastolic blood 2021-08-07 15:57:00 71 mm[Hg] [facility] Heart rate 2021-08-07 15:57:00 97 /min [facility] Body temperature 2021-08-07 15:57:00 37.44 Brittany [facility] [place] [facility] Respiratory rate 2021-08-07 15:57:00 18 /min [facility] Body height 2021-08-07 15:57:00 170.2 cm [facility] Body weight 2021-08-07 15:57:00 56.7 kg [facility] BMI 2021-08-07 15:57:00 19.58 kg/m2 [facility] Oxygen saturation in 2021-08-07 15:57:00 98 /min [facility] Arterial blood by [facility] Pulse oximetry Branch Systolic blood 2021-06-30 01:29:00 132 mm[Hg] [facility] [place] [facility] Diastolic blood 2021-06-30 01:29:00 75 mm[Hg] [facility] [place] [facility] Heart rate 2021-06-30 01:29:00 75 /min [facility] [place] [facility] Respiratory rate 2021-06-30 01:29:00 18 /min [facility] [place] [facility] Oxygen saturation in 2021-06-30 01:29:00 100 /min [facility] Arterial blood by [facility] Pulse oximetry Branch Body temperature 2021-06-29 22:01:00 36.67 Brittany [facility] [place] [facility] Body weight 2021-06-29 22:01:00 53.071 kg [facility] BMI 2021-06-29 22:01:00 18.32 kg/m2 [facility] Systolic blood 2021-05-20 21:45:00 137 mm[Hg] [facility] Diastolic blood 2021-05-20 21:45:00 75 mm[Hg] [facility] Heart rate 2021-05-20 21:45:00 75 /min [facility] Body temperature 2021-05-20 21:45:00 36.5 Brittany [facility] [place] [facility] Respiratory rate 2021-05-20 21:45:00 16 /min [facility] [place] [facility] Oxygen saturation in 2021-05-20 21:45:00 97 /min [facility] Arterial blood by [facility] Pulse oximetry Branch Body weight 2021-05-20 04:14:00 [...] 97 /min [facility]terial blood by [facility] Pulse oximetry Branch Body temperature 2020-09-14 02:10:00 36.5 Brittany [facility] [place] [facility] Body height 2020-09-14 02:09:00 170.2 cm [facility] Body weight 2020-09-14 02:09:00 61.236 kg [facility] BMI 2020-09-14 02:09:00 21.14 kg/m2 [facility] Systolic blood 2020-09-14 03:30:00 147 mm[Hg] [facility] [place] [facility] Diastolic blood 2020-09-14 03:30:00 89 mm[Hg] [facility] Heart rate 2020-09-14 03:30:00 73 /min [facility] Respiratory rate 2020-09-14 03:30:00 19 /min [facility] [place] [facility] Oxygen saturation in 2020-09-14 03:30:00 97 /min [facility] blood by [place] [facility] hermelindo Pulse oximetry Branch Body temperature 2020-09-14 02:10:00 36.5 Brittany [facility] [place] [facility] Body height 2020-09-14 02:09:00 170.2 cm [facility] Body weight 2020-09-14 02:09:00 61.236 kg [facility] BMI 2020-09-14 02:09:00 21.14 kg/m2 [facility] Heart rate 2019-07-28 01:36:00 70 /min [facility] Respiratory rate 2019-07-28 01:36:00 18 /min [facility] [place] [facility] Oxygen saturation in 2019-07-28 01:24:00 98 /min [facility] by [place] [facility]mel[facility] Pulse oximetry Branch Systolic blood 2019-07-28 01:00:00 143 mm[Hg] [facility] [place] [facility] Diastolic blood 2019-07-28 01:00:00 74 mm[Hg] [facility] [place] [facility] Body temperature 2019-07-28 00:05:00 36.56 Brittany [facility] [place] [facility] Body height 2019-07-28 00:05:00 170.2 cm [facility] Body weight 2019-07-28 00:05:00 68.04 kg [facility] BMI 2019-07-28 00:05:00 23.49 kg/m2 [facility] Heart rate 2019-07-28 01:36:00 70 /min [facility] Respiratory rate 2019-07-28 01:36:00 18 /min [facility] [place] [facility] Oxygen saturation in 2019-07-28 01:24:00 98 /min [facility] [place] [facility] Pulse oximetry Branch Systolic blood 2019-07-28 01:00:00 143 mm[Hg] [facility] [place] [facility] Diastolic blood 2019-07-28 01:00:00 74 mm[Hg] [facility] [place] [facility] Body temperature 2019-07-28 00:05:00 36.56 Brittany [facility] [place] [facility] Body height 2019-07-28 00:05:00 170.2 cm [facility] [place] [facility] [place] Body weight 2019-07-28 00:05:00 68.04 kg [facility] BMI 2019-07-28 00:05:00 23.49 kg/m2 [facility] Systolic blood 2019-03-11 21:00:00 141 mm[Hg] [facility] [place] [facility] Diastolic blood 2019-03-11 21:00:00 66 mm[Hg] [facility] [place] [facility] Heart rate 2019-03-11 21:00:00 97 /min [facility] Respiratory rate 2019-03-11 21:00:00 18 /min [facility] [place] [facility] Oxygen saturation in 2019-03-11 21:00:00 97 /min [facility] Arterial blood by [facility] Pulse oximetry Branch Body temperature 2019-03-11 19:13:00 36.06 Brittany [facility] [place] [facility] Body weight 2019-03-11 19:12:00 68.04 kg [facility] BMI 2019-03-11 19:12:00 23.49 kg/m2 [facility] Systolic blood 2019-03-11 21:00:00 141 mm[Hg] [facility] [place] [facility] Diastolic blood 2019-03-11 21:00:00 66 mm[Hg] [facility] [place] [facility] Heart rate 2019-03-11 21:00:00 97 /min [facility] Respiratory rate 2019-03-11 21:00:00 18 /min [facility] Oxygen saturation in 2019-03-11 21:00:00 97 /min [facility] Arterial blood by [facility] Pulse oximetry [place] Body temperature 2019-03-11 19:13:00 36.06 Brittany [facility] Body weight 2019-03-11 19:12:00 68.04 kg [facility] BMI 2019-03-11 19:12:00 23.49 kg/m2 [facility] Procedures Procedure Date / Time Performing Clinician Source Performed COMP. METABOLIC PANEL 2023-02-26 21:14:00 Neida Duggan [facility] ([id number]) [facility] CBC WITH DIFF 2023-02-26 21:14:00 Neida Duggan [place] [facility] CONSENT/REFUSAL FOR 2023-02-26 20:33:07 Doctor Unassigned, No Un [facility] DIAGNOSIS AND TREATMENT Name [facility] POCT SARS-COV-2 ANTIGEN 2022-08-24 15:52:00 Susan Lee [facility] (BINAX NOW) [facility] POCT MOLECULAR FLU 2022-08-24 15:51:00 Unknown, Attending [facility] ASSIGNMENT OF BENEFITS 2022-08-24 15:38:07 Doctor Unassigned, No [facility] Name [facility] XR CHEST 1 VW 2022-01-08 00:24:42 Alex Oconnell [facility] RAPID STREP SCREEN FOR 2022-01-06 20:47:00 [facility] GROUP A Medical Branch COVID-19 (ID NOW RAPID 2022-01-06 20:47:00 Sherrill [facility] TESTING) Medical Branch CONSENT/REFUSAL FOR 2022-01-06 20:26:18 Doctor Unassigned, No Un [facility] DIAGNOSIS AND TREATMENT Name [facility] RAPID INFLUENZA A/B 2021-09-02 00:47:00 Cameron Dalton [facility] COVID-19 (ID NOW RAPID 2021-09-02 00:47:00 Cameron Dalton [facility] TESTING) Medical Branch XR CHEST 2 VW 2021-09-02 00:27:31 [facility] 2021-09-01 23:46:25 [facility]igned, No [facility] Name Medical Branch XR CHEST 2 VW 2021-08-07 16:43:01 Darius Ledesma [facility] CONSENT/REFUSAL FOR 2021-08-07 15:37:28 Doctor Unassigned, No [facility] Name [facility] CT ABDOMEN PELVIS W 2021-06-29 23:11:24 Jose Alejandro Castano [facility] CONTRAST Medical Branch LIPASE 2021-06-29 22:18[facility]00 [facility] 2021-06-29 22:18:00 [facility] COMP. METABOLIC PANEL 2021-06-29 22:18:00 Omaira [facility] ([id number]) Medical Branch CBC WITH DIFF 2021-06-29 22:18:00 [facility] URINALYSIS 2021-06-29 22:18:00 [facility] CONSENT/REFUSAL FOR 2021-06-29 21:50:47 Doctor Unassigned, No [facility] Name [facility] POCT GLUCOSE (AUTOMATED) 2021-05-20 17:30:00 Marcelina Che [facility] HB ECG ROUTINE & RHYTHM 2021-05-20 15:36:46 Sami Caceres [facility] STRIP [facility] Branch TRANSTHORACIC ECHO (TTE) 2021-05-20 15:19:52 [facility] COMPLETE [facility] TROPONIN I 2021-05-20 11:04:00 Yane [facility] BASIC METABOLIC PANEL 2021-05-20 11:04:00 [facility] (NA, K, CL, CO2, Medical Branch GLUCOSE, BUN, CREATININE, CA) CBC WITH DIFF 2021-05-20 11:04:00 Marcelina Che [facility] TROPONIN I 2021-05-20 01:56:00 Neida Duggan [facility] XR CHEST 1 VW 2021-05-20 00:01:05 Neida Duggan [facility] LIPASE 2021-05-19 23:49:00 Neida Duggan [facility] MAGNESIUM 2021-05-19 23:49:00 Neida Duggan [facility] TROPONIN I 2021-05-19 23:49:00 Neida Duggan [facility] COMP. METABOLIC PANEL 2021-05-19 23:49:00 Neida Duggan [facility] ([id number]) [facility] CBC WITH DIFF 2021-05-19 23:49:00 Neida Duggan [facility] PROTHROMBIN TIME / INR 2021-05-19 23:49:00 Neida [facility]gan [facility] ACTIVATED PARTIAL 2021-05-19 23:49:00 Neida Duggan [facility] THRMPLAS [facility] COVID-19 (ID NOW RAPID 2021-05-19 23:49:00 Neida Duggan [facility] TESTING) [facility] CONSENT/REFUSAL FOR 2021-05-19 23:01:42 Doctor Unassigned, No [facility] DIAGNOSIS AND TREATMENT Name Medical Branch URINALYSIS 2020-09-14 02:42:00 Diana Berg [facility] XR CHEST 1 VW 2020-09-14 02:30:21 Diana Berg [facility] LIPASE 2020-09-14 02:21:00 Diana Berg [facility] TROPONIN I 2020-09-14 02:21:00 Diana Berg [facility] HEPATIC FUNCTION PANEL 2020-09-14 02:21:00 Diana Berg [facility] ([id number]) (ALB,T.PRO,BILI Medical Branch T,BU/BC,ALT,AST,ALK PHOS) BASIC METABOLIC PANEL 2020-09-14 02:21:00 Diana [facility] [place] (NA, K, CL, CO2, Medical Branch GLUCOSE, BUN, CREATININE, CA) CBC WITH DIFF 2020-09-14 02:21:00 Diana Berg [facility] N-TERMINAL PRO-BNP 2020-09-14 02:21:00 Diana Berg [facility] (ID NOW RAPID 2020-09-14 02:21:00 [facility] NOTICE OF PRIVACY 2020-09-14 02:00:22 Doctor Unassigned, No [facility] Name [facility] CONSENT/REFUSAL FOR 2020-09-14 01:58:28 Doctor Unassigned, No [facility] [place] [facility]REAT[facility] Name [facility] HEPATIC FUNCTION PANEL 2019-07-28 00:55:00 [facility] ([id number] (ALB,T.PRO,BILI Medical Branch T,BU/BC,ALT,AST,ALK PHOS) BASIC METABOLIC PANEL 2019-07-28 00:55:00 Mariangel [facility] (NA, K, CL, CO2, Medical Branch GLUCOSE, BUN, CREATININE, CA) CBC WITH DIFFERENTIAL 2019-07-28 00:55:00 Mariangel [facility] RAPID STREP SCREEN FOR 2019-07-28 00:55:00 Mariangel [facility] GROUP A [facility] ADC,CLC OR LCC ONLY - 2019-07-28 00:55:00 Mariangel Ortega [facility] [place] INFLUENZA A & B DIRECT Medical B ranch ANTIGEN CBC WITH DIFFERENTIAL 2019-07-28 00:55:00 Mariangel [facility] XR CHEST 2 VW 2019-07-28 00:28:40 Mariangel Ortega [facility] CONSENT/REFUSAL FOR 2019-07-27 23:47:18 Doctor Unassigned, No [facility] [place] DIAGNOSIS [facility] TREATMENT Name Medical Branch LIPASE 2019-03-11 19:53:00 Sherrill Connor [place] [facility] HEPATIC FUNCTION PANEL 2019-03-11 19:53:00 Sherrill Connor [facility] ([id number]) (ALB,T.PRO,BILI [facility] Branch T,BU/BC,ALT,AST,ALK PHOS) BASIC METABOLIC PANEL 2019-03-11 19:53:00 Sherrill Connor [facility] (NA, K, CL, CO2, Medical Branch GLUCOSE, BUN, CREATININE, CA) CBC WITH DIFFERENTIAL 2019-03-11 19:53:00 Sherrill Connor [facility] PROTHROMBIN TIME / INR 2019-03-11 19:53:00 Sherrill Connor [facility] ACTIVATED PARTIAL 2019-03-11 19:53:00 Sherrill Connor [facility] NOTICE OF PRIVACY 2019-03-11 18:56:54 Doctor Unassigned, No Univ [facility] PRACTICES Name [facility] Encounters Start End Encounter Admission Attending Care Care Encounter Source Date/Time Date/Time Type Type Clinicians Facility Department ID 2021-05-06 Emergency [facility] [id number] Univers 05:05:13 ity of [facility] 2023-02-26 2023-02-26 Emergency X OLGA LIDIA Neida [facility] ERT [id number] Univers 15:53:00 17:52:00 ity of [facility] 2023-02-26 2023-02-26 Emergency Olga LidiaNeida [facility] 1.2.840.114 [id number] Univers 15:53:00 17:52:00 Leonarda DENNISON [id number] i ty of [place] [id number] [facility] [place] [id number] [facility] 084 Branch 2022-08-24 2022-08-24 Urgent Susan Lee [facility] 1.2.840.11 [id number] Univers 09:40:00 10:00:00 Care Unknown, Attending HEALTH [id number] ity of [place] [id number] Amandeep as JOCELYN?BLEA [id number] [place] dical [address] MEDICAL OFFICE BUILDING 2022-08-24 2022-08-24 Outpatient R TAMIKO [facility] [id number] Univers 09:40:00 09:40:00 SUSAN ity of [facility] 2022-08-24 2022-08-24 Orders Doctor SUSHIL 1.2.840.114 [id number] Univers 00:00:00 00:00:00 Only Unassigned, KIRK [id number] ity of [place] [facility] [id number] Amandeep as [phone] [address] 2022-01-11 2022-01-11 Laboratory Only, Ang Db Test [facility] 1.2.8 40.114 [id number] Univers 13:15:00 13:30:00 Only Monik Charles [facility] [id number] ity of [place] 4.2.7.2.686 Amandeep as JOCELYN?BLEA [id number] [address] MEDICAL OFFICE BUILDING 2022-01-11 2022-01-11 Outpatient Torres CHARLES [facility] [id number] Univers 13:15:00 13:24:38 MONIK delaney [facility] 2022-01-07 2022-01-07 Emergency [facility] [id number] Univers 18:26:00 21:08:00 ALEX garcia [facility] 2022-01-07 2022-01-07 [facility] 1.2.093.001 [id number] Univers 18:26:00 21:08:00 Alex DENNISON [id number] ity of [place] 4.2.7.2.686 [facility] [id number] [address] 2022-01-06 2022-01-06 [facility] [id number] Univers 15:31:00 16:32:00 SHERRILL delaney [facility] 2022-01-06 2022-01-06 Emergency [facility] 1.2.055.085 [id number] Univers 15:31:00 16:32:00 Sherrill DENNISON 350.1.13.10 i ty of [facility] 4.2.7.2.686 [facility] [id number] [address] 2021-09-01 2021-09-01 Emergency X [facility] ERT [id number] Univers 17:59:00 19:56:00 CAMERON delaney [facility] 2021-09-01 2021-09-01 Emergency [facility] 1.2.840.114 [id number] Univers 17:59:00 19:56:00 Cameron DENNISON 350.1.13.10 i ty [place] [id number] [place] 837[address] [place] 2021-09-01 2021-09-01 Orders Doctor SUSHIL 1.2.840.114 [id number] Univers 00:00:00 00:00:00 Only Unassigned, KIRK 350.1.13.10 ity of [place] [facility] 4.2.7.2.686 Amandeep as [id number] [facility] 009 [place] 2021-08-08 2021-08-08 Letter SUSHIL Daniels 1.2.840.114 [id number] Univers 00:00:00 00:00:00 (Out) Nirmala BRADLEY 350.1.13.10 it y of HOSPITAL 4.2.7.2.686 Amandeep as [id number] [facility] 019 [place] 2021-08-07 2021-08-07 Emergency X [facility] ERT [id number] Univers 09:58:00 11:43:00 DARIUS delaney of [facility] 2021-08-07 2021-08-07 Emergency [facility] 1.2.400.787 [id number] Univers 09:58:00 11:43:00 Darius BRAGGDORINA 350.1.13.10 i ty of [place] 4.2[address]7.[address] [facility] [phone] [place] 837334 [place] 2021-08-07 2021-08-07 Orders Doctor SUSHIL 1.2.840.114 [id number] Univers 00:00:00 00:00:00 Only Unassigned, KIRK 350.1.13.10 ity of [place] [facility] 4.2.7.2.686 Amandeep as [id number] [facility] 009 [place] 2021-06-29 2021-06-29 Emergency X OMAIRA [facility] ERT [id number] Univers 16:04:00 19:33:00 JOSE ALEJANDRO delaney [facility] 2021-06-29 2021-06-29 Emergency Omaira [facility] 1.2.840.114 [id number] Univers 16:04:00 19:33:00 Jose Alejandro DENNISON 350.1.13.10 i ty of [facility] 4.2.7.2.686 [facility] [id number] [address] 2021-05-19 2021-05-20 Outpatient X [facility]REE [facility] [id number] Univers 17:04:00 17:03:00 MARCELINA delaney [facility] 2021-05-19 2021-05-20 Emergency Neida Duggan Leonarda [facility] 1..840. 114 [id number] Univers 17:04:00 17:03:00 Marcelina Che JESI 350.1.13.10 ity [facility] [id number] [facility] [id number] [address] 2020-09-16 2020-09-16 Outpatient R LUIS MANUEL [facility] [id number] Univers 10:20:00 10:20:00 NICOLE ity [facility] 2020-09-16 2020-09-16 Laboratory Lab, [facility] 1..840.114 [id number] 09:44:15 10:04:15 Only Fam Pob I Health 350.1.13.10 [place] 4.2.7.2.686 Professio [phone] [place] [address] [address] 2020-09-16 2020-09-16 Laboratory Lab, [facility] Fam Pob I [facility] 1.. 840.114 [id number] Univers 09:44:15 10:04:15 Only Nicole [facility] 350.1.13.10 ity of [place] 4.2.7.2.686 Amandeep as Professio [id number] La dical [address] Office [address] 2020-09-13 2020-09-13 Emergency [facility] 1.2.840.114 [id number] 20:05:00 22:24:00 Diana Dennison 350.1.13.10 [place] 4.2.7.2.686 [place] [id number] [facility] 2020-09-13 2020-09-13 Emergency Rohan, [facility] 1.2.840.114 [id number] [facility] 20:05:00 22:24:00 Diana Braggton 350.1.13.10 ity of [place] 4.2.7.2.686 [facility] [id number] [address] 2019-07-27 2019-07-27 Emergency [facility] 1.2.840.114 [id number] 18:07:12 20:13:00 Mariangel Ada Jesi 350.1.13.10 [place] 4.2.7.2.686 [place] [id number] [facility] 2019-07-27 2019-07-27 Emergency [facility] 1.2.840.114 [id number] [facility] 18:07:12 20:13:00 Mariangel Dennison 350.1.13.10 ity of [place] 4.2.7.2.686 [facility] [id number] [address] 2019-07-27 2019-07-27 Orders Doctor LING 1.2.840.114 [id number] 00:00:00 00:00:00 Only Unassigned, KIRK 350.1.13.10 [place] [facility] 4.2.7.2.686 [id number] [facility] 2019-07-27 2019-07-27 Orders Doctor LING 1.2.840.114 [id number] Univers 00:00:00 00:00:00 Only Unassigned, KIRK 350.1.13.10 ity of [place] [facility] 4.2.7.2.686 Amandeep [id number] [address] 2019-03-11 2019-03-11 Emergency [facility] 1.2.407.442 [id number] 14:05:54 16:45:00 Sherrill Dennison 350.1.13.10 [place] 4.2.7.2.686 [place] [id number] [facility] 2019-03-11 2019-03-11 Emergency [facility] 1.2.706.164 [id number] Univers 14:05:54 16:45:00 Sherrill Dennison 350.1.13.10 i [facility] 4.2.7.2.686 [facility] [id number] [facility] 084 Branch Results Test Description Test Time Test Comments Results Result Comments Source COMP. METABOLIC PANEL (01052) 2023-02-26 22:05:45 Test Item Value Reference Range Interpretation Comme nts NA (test code = 4763907285) 136 mmol/L 135-145 K (test code = 4179510837) 3.7 mmol/L 3.5-5.0 CL (test code = 8393837829) 100 mmol/L 98-108 CO2 TOTAL (test code = 0771410940) 26 mmol/L 23-31 AGAP (test code = 4562660891) 10 2-16 BUN (test code = 8219798335) 11 mg/dL 7-23 GLUCOSE (test code = 0720857754) 123 mg/dL 70-110 H CREATININE (test code = 0.61 mg/dL 0.50-1.04 9137690725) TOTAL BILI (test code = 0.2 mg/dL 0.1-1.8 6099121388) CALCIUM (test code = 1830109575) 9.6 mg/dL 8.6-10.6 T PROTEIN (test code = 6962197062) 7.6 g/dL 6.3-8.2 ALBUMIN (test code = 0529965851) 4.8 g/dL 3.5-5.0 ALK PHOS (test code = 1305985580) 83 U/L 34-122 ALTv (test code = 1742-6) 20 U/L 5-35 AST(SGOT) (test code = 5751515655) 28 U/L 13-40 eGFR (test code = 6747925798) 99.1 mL/min/1.73m2 MADISYN (test code = MADISYN) [...] tests). Lab Interpretation (test code = Abnormal 27092-0) [facility] WITH [id number] 21:53:23 Test Item Value Reference Range Interpretation Comments WBC (test code = 6.64 See_Comment [Automated 9890-2) message] The sy stem which generated this result transmitted reference range : 4.30 - 11.10 10*3/?L. The reference range was not used to interpret this result as normal/abnormal . RBC (test code = 3.46 See_Comment L [Automated 419-8) message] The sy stem which generated this [...] RDW-SD (test code = 42.1 fL 39.0-49.9 50929-1) RDW-CV (test code = 12.9 % 12.0-15.5 788-0) PLT (test code = 274 See_Comment [Automated 777-3) message] The sy stem which generated this result transmitted reference range : 166 - 358 10*3/ ?L. The reference r aiden was not used to interpret this result as normal/abnormal . MPV (test code = 10.4 fL 9.5-12.9 57974-4) NRBC/100 WBC (test 0.0 See_Comment [Automat ed code = 0282732161) message] The system which generated this result transmitted reference range : 0.0 - 10.0 /100 WBCs. The refer ence range was not u sed to interpret th is result as normal/abnormal . NRBC x10^3 (test code See_Comment [Auto mated = 8871173327) message] The s ystem which generated this result transmitted reference range : 10*3/?L. The reference range was not used to interpret this result as normal/abnormal . GRAN MAT (NEUT) % 52.0 % (test code = 770-8) IMM GRAN % (test code 0.50 % = 3856118272) LYMPH % (test code = 34.2 % 736-9) MONO % (test code = 6.8 % 5905-5) EOS % (test code = 6.2 % 713-8) BASO % (test code = 0.3 % 706-2) GRAN MAT x10^3(ANC) 3.46 10*3/uL 1.88-7.09 (test code = 0509019113) IMM GRAN x10^3 (test 0.03 10*3/uL 0.00-0.06 code = 2778660472) LYMPH x10^3 (test code 2.27 10*3/uL 1.32-3.29 = 731-0) MONO x10^3 (test code 0.45 10*3/uL 0.33-0.92 = 742-7) EOS x10^3 (test code = 0.41 10*3/uL 0.03-0.39 H 711-2) BASO x10^3 (test code 0.01-0.07 = 704-7) Lab Interpretation Abnormal (test code = 04806-6) [facility] MOLECULAR [id number] 16:02:31 Test Item Value Reference Range Interpretation Comments POCT Molecular FluA (test code = Negative Negative 36332-3) POCT Molecular FluB (test code = Negative Negative 30418-2) Lab Interpretation (test code = Normal 51446-1) [facility] SARS-COV-2 ANTIGEN (BINAX NOW)2022-08-24 15:52:00 Test Item Value Reference Range Interpretation Comments POCT SARS-COV-2 ANTIGEN (test Not Detected Not Detected code = 90963-7) On board controls acceptable Yes with C Line (test code = 3574) Lab Interpretation (test code = Normal 47696-4) [facility] METABOLIC PANEL ([id number])2021-06-29 23:10:56 Test Item Value Reference Range Interpretation Comments NA (test code = 137 mmol/L 135-145 2181577774) K (test code = 3.9 mmol/L 3.5-5.0 8496277906) CL (test code = 102 mmol/L 98-108 8168174172) CO2 TOTAL (test code = 27 mmol/L 23-31 4550138000) AGAP (test code = 2-16 1705208973) BUN (test code = 10 mg/dL 7-23 6793927495) GLUCOSE (test code = 137 mg/dL 70-110 H 3694277237) CREATININE (test code = 0.69 mg/dL 0.50-1.04 7488856751) TOTAL BILI (test code = 0.5 mg/dL 0.1-1.8 6679117021) CALCIUM (test code = 9.2 mg/dL 8.6-10.6 4677961904) T PROTEIN (test code = 7.7 g/dL 6.3-8.2 4068191022) ALBUMIN (test code = 4.9 g/dL 3.5-5.0 4876618784) ALK PHOS (test code = 73 U/L 34-122 4710039830) ALTv (test code = 15 U/L 5-35 1742-6) AST(SGOT) (test code = 21 U/L 13-40 4461563445) eGFR (test code = mL/min/1.73m2 0523520112) MADISYN (test code = MADISYN) Association of [...] tests). Lab Interpretation Abnormal (test code = 29350-2) [id number]:59[facility] Test Item Value Reference Interpretation Comments Range TROPONIN I (test 0.001 ng/mL See_Comment [Automated code = 5901467754) message] The system which generated this result [...] biotin. Lab Interpretation Normal (test code = 13761-5) [facility]29 Test Item Value Reference Range Interpretation Comments LIPASE (test code = 4481628010) 57 U/L 0-220 Lab Interpretation (test code = Normal 47752-7) [facility] [id number] 22:29:28 Test Item Value Reference Range Interpretation Comments WBC (test code = See_Comment [Automated 8790-2) message] The sy stem which generated this result transmitted reference range : 4.30 - 11.10 10*3/?L. The reference range was not used to interpret this result as normal/abnormal . RBC (test code = See_Comment L [Automated 329-8) message] The sy stem which generated this [...] RDW-SD (test code = 43.4 fL 39.0-49.9 51223-6) RDW-CV (test code = 12.7 % 12.0-15.5 788-0) PLT (test code = See_Comment [Automated 367-3) message] The sy stem which generated this result transmitted reference range : 166 - 358 10*3/ ?L. The reference r aiden was not used to interpret this result as normal/abnormal . MPV (test code = 10.7 fL 9.5-12.9 72378-5) NRBC/100 WBC (test See_Comment [Automat ed code = 9753942194) message] The system which generated this result transmitted reference range : 0.0 - 10.0 /100 WBCs. The refer ence range was not u sed to interpret th is result as normal/abnormal . NRBC x10^3 (test code <0.01 See_Comment [Auto mated = 1219416291) message] The s ystem which generated this result transmitted reference range : 10*3/?L. The reference range was not used to interpret this result as normal/abnormal . GRAN MAT (NEUT) % 68.6 % (test code = 770-8) IMM GRAN % (test code 0.40 % = 4111724727) LYMPH % (test code = 22.9 % 736-9) MONO % (test code = 6.3 % 5905-5) EOS % (test code = 1.6 % 713-8) BASO % (test code = 0.2 % 706-2) GRAN MAT x10^3(ANC) 6.89 10*3/uL 1.88-7.09 (test code = 8459300675) IMM GRAN x10^3 (test 0.04 10*3/uL 0.00-0.06 code = 2320356855) LYMPH x10^3 (test code 2.30 10*3/uL 1.32-3.29 = 731-0) MONO x10^3 (test code 0.63 10*3/uL 0.33-0.92 = 742-7) EOS x10^3 (test code = 0.16 10*3/uL 0.03-0.39 711-2) BASO x10^3 (test code <0.03 0.01-0.07 = 704-7) Lab Interpretation Abnormal (test code = 68177-8) [facility] 17:33:00 Test Item Value Reference Range Interpretation Comments POCT GLU (test code = 5439493122) 80 mg/dL 70-110 Lab Interpretation (test code = Normal 29166-4) [facility] [id number] 12:36:17 Test Item Value Reference Interpretation Comments Range TROPONIN I (test 0.002 ng/mL See_Comment [Automated code = 6482003718) message] The system which generated this result [...] biotin. Lab Interpretation Normal (test code = 95781-3) [facility] Metabolic Panel (NA, K, CL, CO2, GLUCOSE, BUN, CREATININE, CA)2021-05-20 12:31:20 Test Item Value Reference Range Interpretation Comments NA (test code = 138 mmol/L 135-145 2106629793) K (test code = 4.2 mmol/L 3.5-5.0 5684996644) CL (test code = 106 mmol/L 98-108 6350756272) CO2 TOTAL (test code = 25 mmol/L 23-31 7625999289) AGAP (test code = 2-16 9510078623) BUN (test code = 12 mg/dL 7-23 5395047308) GLUCOSE (test code = 146 mg/dL 70-110 H 3846111779) CREATININE (test code = 0.62 mg/dL 0.50-1.04 2796847135) CALCIUM (test code = 10.0 mg/dL 8.6-10.6 3136204861) eGFR (test code = mL/min/1.73m2 7893599805) MADISYN (test code = MADISYN) Association of [...] tests). Lab Interpretation Abnormal (test code = 49590-6) [facility] with [id number] 11:49:32 Test Item Value Reference Range Interpretation Comments WBC (test code = See_Comment [Automated 6752-2) message] The sy stem which generated this result transmitted reference range : 4.30 - 11.10 10*3/?L. The reference range was not used to interpret this result as normal/abnormal . RBC (test code = See_Comment L [Automated 900-8) message] The sy stem which generated this [...] RDW-SD (test code = 40.3 fL 39.0-49.9 26510-1) RDW-CV (test code = 11.9 % 12.0-15.5 L 788-0) PLT (test code = See_Comment [Automated 777-3) message] The sy stem which generated this result transmitted reference range : 166 - 358 10*3/ ?L. The reference r aiden was not used to interpret this result as normal/abnormal . MPV (test code = 11.3 fL 9.5-12.9 00806-7) NRBC/100 WBC (test See_Comment [Automat ed code = 1465814467) message] The system which generated this result transmitted reference range : 0.0 - 10.0 /100 WBCs. The refer ence range was not u sed to interpret th is result as normal/abnormal . NRBC x10^3 (test code <0.01 See_Comment [Auto mated = 4860370607) message] The s ystem which generated this result transmitted reference range : 10*3/?L. The reference range was not used to interpret this result as normal/abnormal . GRAN MAT (NEUT) % 59.9 % (test code = 770-8) IMM GRAN % (test code 0.50 % = 5503208743) LYMPH % (test code = 30.0 % 736-9) MONO % (test code = 6.4 % 5905-5) EOS % (test code = 2.9 % 713-8) BASO % (test code = 0.3 % 706-2) GRAN MAT x10^3(ANC) 3.72 10*3/uL 1.88-7.09 (test code = 0183495096) IMM GRAN x10^3 (test 0.03 10*3/uL 0.00-0.06 code = 7381032878) LYMPH x10^3 (test code 1.86 10*3/uL 1.32-3.29 = 731-0) MONO x10^3 (test code 0.40 10*3/uL 0.33-0.92 = 742-7) EOS x10^3 (test code = 0.18 10*3/uL 0.03-0.39 711-2) BASO x10^3 (test code <0.03 0.01-0.07 = 704-7) Lab Interpretation Abnormal (test code = 71528-1) [facility] [id number] 02:24:28 Test Item Value Reference Interpretation Comments Range TROPONIN I (test 0.003 ng/mL See_Comment [Automated code = 9126602046) message] The system which generated this result [...] biotin. Lab Interpretation Normal (test code = 90340-0) [facility] Test Item Value Reference Range Interpretation Comments MAGNESIUM (test code = 5215566341) 1.9 mg/dL 1.7-2.4 Lab Interpretation (test code = Normal 33525-1) [facility] [id number] 00:20:03 Test Item Value Reference Interpretation Comments Range TROPONIN I (test 0.002 ng/mL See_Comment [Automated code = 4626478876) message] The system which generated this result [...] biotin. Lab Interpretation Normal (test code = 48286-0) [facility]. METABOLIC PANEL (09569)2021-05-20 00:09:00 Test Item Value Reference Range Interpretation Comments NA (test code = 139 mmol/L 135-145 1997996919) K (test code = 3.9 mmol/L 3.5-5.0 0450425911) CL (test code = 101 mmol/L 98-108 2075907976) CO2 TOTAL (test code = 28 mmol/L 23-31 0953504380) AGAP (test code = 2-16 1926652428) BUN (test code = 13 mg/dL 7-23 7015438195) GLUCOSE (test code = 143 mg/dL 70-110 H 1693036286) CREATININE (test code = 0.68 mg/dL 0.50-1.04 4656277818) TOTAL BILI (test code = 0.4 mg/dL 0.1-1.8 2064988664) CALCIUM (test code = 10.4 mg/dL 8.6-10.6 0274054090) T PROTEIN (test code = 8.0 g/dL 6.3-8.2 2415177384) ALBUMIN (test code = 5.0 g/dL 3.5-5.0 9092399240) ALK PHOS (test code = 93 U/L 34-122 6446270690) ALTv (test code = 21 U/L 5-35 1742-6) AST(SGOT) (test code = 31 U/L 13-40 7454848224) eGFR (test code = mL/min/1.73m2 0517005227) MADISYN (test code = MADISYN) Association of [...] tests). Lab Interpretation Abnormal (test code = 66496-8) [facility]:08[facility]20 Test Item Value Reference Range Interpretation Comments LIPASE (test code = 5170974422) 66 U/L 0-220 Lab Interpretation (test code = Normal 85141-7) [facility] 00:06:19 Test Item Value Reference Range Interpretation Comments APTT Patient (test See_Comment [Automat ed code = 3173-2) message] The system which generated this result transmitted reference range : 23 - 38 Seconds . The reference range was not used to interpr et this result as normal/abnormal . MADISYN (test code = MADISYN) The [facility] patient population mean normal value for aPTT is 30 seconds. Lab Interpretation Normal (test code = 55718-4) [facility] / [id number] 00:04:19 Test Item Value Reference Range Interpretation [...] tions. Lab Interpretation (test Normal code = 85214-7) [facility] WITH [id number] 23:55:39 Test Item Value Reference Range Interpretation Comments WBC (test code = See_Comment [Automated 8990-2) message] The sy stem which generated this [...] RDW-SD (test code = 40.4 fL 39.0-49.9 11050-6) RDW-CV (test code = 11.9 % 12.0-15.5 L 788-0) PLT (test code = See_Comment [Automated 777-3) message] The sy stem which generated this result transmitted reference range : 166 - 358 10*3/ ?L. The reference r aiden was not used to interpret this result as normal/abnormal . MPV (test code = 11.0 fL 9.5-12.9 23814-1) NRBC/100 WBC (test See_Comment [Automat ed code = 8998387751) message] The system which generated this result transmitted reference range : 0.0 - 10.0 /100 WBCs. The refer ence range was not u sed to interpret th is result as normal/abnormal . NRBC x10^3 (test code <0.01 See_Comment [Auto mated = 0014217914) message] The s ystem which generated this result transmitted reference range : 10*3/?L. The reference range was not used to interpret this result as normal/abnormal . GRAN MAT (NEUT) % 53.4 % (test code = 770-8) IMM GRAN % (test code 0.60 % = 7098051665) LYMPH % (test code = 36.2 % 736-9) MONO % (test code = 6.4 % 5905-5) EOS % (test code = 3.3 % 713-8) BASO % (test code = 0.1 % 706-2) GRAN MAT x10^3(ANC) 3.58 10*3/uL 1.88-7.09 (test code = 0003116519) IMM GRAN x10^3 (test 0.04 10*3/uL 0.00-0.06 code = 8832240367) LYMPH x10^3 (test code 2.43 10*3/uL 1.32-3.29 = 731-0) MONO x10^3 (test code 0.43 10*3/uL 0.33-0.92 = 742-7) EOS x10^3 (test code = 0.22 10*3/uL 0.03-0.39 711-2) BASO x10^3 (test code <0.03 0.01-0.07 = 704-7) Lab Interpretation Abnormal (test code = 92142-5) [facility] 03:27:11 Test Item Value Reference Range Interpretation Comments APPEARANCE (test code = Clear Clear 7212918321) COLOR (test code = Straw Yellow A 3889712084) PH (test code = 4.8-8.0 7878690055) SP GRAVITY (test code = 1.003-1.030 8602860094) GLU U QUAL (test code = 500 mg/dL Normal A 8804288275) BLOOD (test code = Negative Negative 8540313569) KETONES (test code = Negative Negative 9533218245) PROTEIN (test code = Negative Negative 2887-8) UROBILIN (test code = Normal Normal 0131506244) BILIRUBIN (test code = Negative Negative 4424910769) NITRITE (test code = Negative Negative 0801839231) LEUK KEVEN (test code = 25/uL Negative A 9286680286) RBC/HPF (test code = See_Comment [Autom ated message] 3490934462) The system [employer] generated this result transmit zoila reference range : 0 - 3 HPF. The refe rence range was not u sed to interpret th is result as normal/abnormal . WBC/HPF (test code = See_Comment [Autom ated message] 9753119748) The system [employer] generated this result transmit zoila reference range : 0 - 5 HPF. The refe rence range was not u sed to interpret th is result as normal/abnormal . BACTERIA (test code = Negative Negative 5589492758) MUCOUS (test code = Slight Negative LPF A 4209863548) SQ EPITH (test code = HPF 4586059168) Lab Interpretation (test Abnormal code = 71928-3) [facility] [id number] 03:00:28 Test Item Value Reference Range Interpretation Comments TROPONIN I (test <0.012 See_Comment [Automated code = 6294638078) message] The system which generated this result [...] ? Lab Interpretation Normal (test code = 08051-5) [facility] [id number] 02:57:10 Test Item Value Reference Range Interpretation Comments NT-proBNP (test code 25 pg/mL See_Comment [Autom ated = 2698634310) message] The system which generated this result transmitted reference range : <=125. The reference range was not used to interpret this result as normal/abnormal . MADISYN (test code = MADISYN) Biotin has been reported to cause a negative bias, interpret results relative to patient's use of biotin. Lab Interpretation Normal (test code = 30139-4) [facility] (NA, K, CL, CO2, GLUCOSE, BUN, CREATININE, CA)2020-09-14 02:48:49 Test Item Value Reference Range Interpretation Comments NA (test code = 135 mmol/L 135-145 0573749730) K (test code = 3.6 mmol/L 3.5-5.0 6454140519) CL (test code = 101 mmol/L 98-108 4100374655) CO2 TOTAL (test code = 23 mmol/L 23-31 1819752097) AGAP (test code = 2-16 2938963294) BUN (test code = 10 mg/dL 7-23 3359279057) GLUCOSE (test code = 296 mg/dL 70-110 H 3774526107) CREATININE (test code = 0.62 mg/dL 0.50-1.04 4936762690) CALCIUM (test code = 9.7 mg/dL 8.6-10.6 0840679998) eGFR Calculation mL/min/1.73m2 (Non-) (test code = 1003502350) eGFR Calculation mL/min/1.73m2 () (test code = 0345691619) MADISYN (test code = MADISYN) Association of [...] tests). Lab Interpretation Abnormal (test code = 77871-6) [facility] (ALB, T.PRO, BILI T, BU/BC, ALT, AST, ALK PHOS)2020-09-14 02:48:48 Test Item Value Reference Range Interpretation Comments TOTAL BILI (test code = 1844601563) 0.4 mg/dL 0.1-1.1 BILI UNCON (test code = 4324255148) 0.4 mg/dL 0.1-1.1 BILI CONJ (test code = 3293105544) 0.0 mg/dL 0.0-0.3 T PROTEIN (test code = 4826916748) 7.7 g/dL 6.3-8.2 ALBUMIN (test code = 8345392500) 5.0 g/dL 3.5-5.0 ALK PHOS (test code = 6496388213) 78 U/L 34-122 ALTv (test code = 1742-6) 19 U/L 5-35 AST(SGOT) (test code = 0912595827) 25 U/L 13-40 Lab Interpretation (test code = Normal 35599-7) [facility] [id number] 02:48:48 Test Item Value Reference Range Interpretation Comments LIPASE (test code = 7786775097) 38 U/L 0-220 Lab Interpretation (test code = Normal 57856-1) [facility] (ID NOW RAPID TESTING)2020-09-14 02:36:29 Test Item Value Reference Range Interpretation Comments SARS-CoV-2 Rapid ID NOW Positive Not Detected A (test code = 65366-2) MADISYN (test code = MADISYN) ID NOW COVID-19 Assay is an isothermal nucleic acid amplification test intended for the qualitative detection of nucleic acid from SARS-CoV-2 viral RNA in nasopharyngeal (BOW[employer]ER) specimens. It is used under Emergency Use [...] indicated. Lab Interpretation Abnormal (test code = 61875-7) [facility] with [id number] 02:30:06 Test Item Value Reference Range Interpretation Comments WBC (test code = See_Comment [Automated message] 6690-2) The system [employer] generated this result transmitted ref erence range: 4.30 - 1 1.10 10*3/?L. The re ference range was not u sed to interpret this result as normal/abnor mal. RBC (test code = See_Comment [Automated message] 789-8) The system [employer] generated this result transmitted ref erence range: [...] RDW-SD (test code 41.8 fL 39.0-49.9 = 95872-2) RDW-CV (test code 12.8 % 12.0-15.5 = 788-0) PLT (test code = See_Comment [Automated message] 777-3) The system whic h generated this result transmitted ref erence range: 166 - 35 8 10*3/?L. The re ference range was not u sed to interpret this result as normal/abnor mal. MPV (test code = 11.2 fL 9.5-12.9 04326-0) NRBC/100 WBC (test See_Comment [Automat ed message] code = 6499052633) The syste m which generated this result transmitted ref erence range: 0.0 - 10 .0 /100 WBCs. The refer ence range was not u sed to interpret this result as normal/abnor mal. NRBC x10^3 (test <0.01 See_Comment [Automated message] code = 3516104246) The syste m which generated this result transmitted ref erence range: 10*3/?L. The reference range was not used to interpr et this result as normal/abnormal . GRAN MAT (NEUT) % 54.0 % (test code = 770-8) IMM GRAN % (test 0.70 % code = 8024421466) LYMPH % (test code 36.2 % = 736-9) MONO % (test code 6.0 % = 5905-5) EOS % (test code = 2.8 % 713-8) BASO % (test code 0.3 % = 706-2) GRAN MAT 3.13 10*3/uL 1.88-7.09 x10^3(ANC) (test code = 7243105189) IMM GRAN x10^3 0.04 10*3/uL 0.00-0.06 (test code = 0426034822) LYMPH x10^3 (test 2.10 10*3/uL 1.32-3.29 code = 731-0) MONO x10^3 (test 0.35 10*3/uL 0.33-0.92 code = 742-7) EOS x10^3 (test 0.16 10*3/uL 0.03-0.39 code = 711-2) BASO x10^3 (test <0.03 0.01-0.07 code = 704-7) [facility] WITH [id number] 01:35:00 Test Item Value Reference Range Interpretation Comments WBC (test code = See_Comment [Automated 2167-2) message] The sy stem which generated this result transmitted reference range : 4.30 - 11.10 10*3/?L. The reference range was not used to interpret this result as normal/abnormal . RBC (test code = See_Comment [Automated 539-8) message] The sy stem which generated this [...] RDW-SD (test code = 40.8 fL 39-49.9 60208-7) RDW-CV (test code = 12.5 % 12-15.5 788-0) PLT (test code = See_Comment [Automated 777-3) message] The sy stem which generated this result transmitted reference range : 166 - 358 10*3/ ?L. The reference r aiden was not used to interpret this result as normal/abnormal . MPV (test code = 11.0 fL 9.5-12.9 55088-0) IPF % (test code = 5.7 % 1.3-7.7 Platelet count 7887463950) measured by fluorescence method. NRBC/100 WBC (test See_Comment [Automat ed code = 0015079134) message] The system which generated this result transmitted reference range : 0.0 - 10.0 /100 WBCs. The refer ence range was not u sed to interpret th is result as normal/abnormal . NRBC x10^3 (test code <0.01 See_Comment [Auto mated = 0791736204) message] The s ystem which generated this result transmitted reference range : 10*3/?L. The reference range was not used to interpret this result as normal/abnormal . GRAN MAT (NEUT) % 60.2 % (test code = 770-8) IMM GRAN % (test code 1.60 % = 7917333479) LYMPH % (test code = 29.4 % 736-9) MONO % (test code = 6.2 % 5905-5) EOS % (test code = 2.3 % 713-8) BASO % (test code = 0.3 % 706-2) GRAN MAT x10^3(ANC) 5.31 10*3/uL 1.88-7.09 (test code = 7845062258) IMM GRAN x10^3 (test 0.14 10*3/uL 0-0.06 H code = 6656863425) LYMPH x10^3 (test code 2.59 10*3/uL 1.32-3.29 = 731-0) MONO x10^3 (test code 0.55 10*3/uL 0.33-0.92 = 742-7) EOS x10^3 (test code = 0.20 10*3/uL 0.03-0.39 711-2) BASO x10^3 (test code 0.03 10*3/uL 0.01-0.07 = 704-7) Lab Interpretation Abnormal (test code = 69267-6) [facility] - INFLUENZA A & B DIRECT [id number] 01:26:00 Test Item Value Reference Range Interpretation Comments Influenza A (test code = 06212-7) Negative Negative Influenza B (test code = 82218-0) Negative Negative Lab Interpretation (test code = Normal 86824-0) [facility] Metabolic Panel (NA, K, CL, CO2, GLUCOSE, BUN, CREATININE, CA)2019-07-28 01:21:00 Test Item Value Reference Range Interpretation Comments NA (test code = 137 mmol/L 135-145 5684023490) K (test code = 3.8 mmol/L 3.5-5 2232508923) CL (test code = 100 mmol/L 98-108 8110924204) CO2 TOTAL (test code = 24 mmol/L 23-31 0839310159) AGAP (test code = 2-16 2281813598) BUN (test code = 13 mg/dL 7-23 0405979660) GLUCOSE (test code = 245 mg/dL 70-110 H 2792788630) CREATININE (test code = 0.49 mg/dL 0.5-1.04 L 1377296041) CALCIUM (test code = 9.8 mg/dL 8.6-10.6 0414238636) eGFR Calculation mL/min/1.73m2 (Non-) (test code = 1287343437) eGFR Calculation mL/min/1.73m2 () (test code = 2279499923) MADISYN (test code = MADISYN) Association of [...] tests). Lab Interpretation Abnormal (test code = 18075-6) [facility] (ALB, T.PRO, BILI T, BU/BC, ALT, AST, ALK PHOS)2019-07-28 01:21:00 Test Item Value Reference Range Interpretation Comments TOTAL BILI (test code = 0179012898) 0.3 mg/dL 0.1-1.1 BILI UNCON (test code = 2391779289) 0.1 mg/dL 0.1-1.1 BILI CONJ (test code = 3664220857) 0.0 mg/dL 0-0.3 T PROTEIN (test code = 9985155231) 8.2 g/dL 6.3-8.2 ALBUMIN (test code = 9429721474) 5.0 g/dL 3.5-5 ALK PHOS (test code = 0717845074) 121 U/L 34-122 ALTv (test code = 1742-6) 33 U/L 5-35 AST(SGOT) (test code = 5768922195) 30 U/L 13-40 Lab Interpretation (test code = Normal 42508-7) [facility] [id number] 01:19:00 Test Item Value Reference Range Interpretation Comments Streptococcus pyogenes (group A) Negative Negative antigen (test code = 81550-9) Lab Interpretation (test code = Normal 67793-1) [facility] [id number] 00:53:20Impression: No acute cardiopulmonary changes. Small sized [...] are unremarkable. Smallsized hiatal hernia is present. [facility], Radiant Results Inft User - 07/27/2019 6:54 [...] reviewed this study and agree withthe above report.[facility] (NA, K, CL, CO2, GLUCOSE, BUN, CREATININE, CA)2019-03-11 20:52:00 Test Item Value Reference Range Interpretation Comments NA (test code = 141 mmol/L 135-145 3233909486) K (test code = 3.6 mmol/L 3.5-5 1132769208) CL (test code = 104 mmol/L 98-108 2700961899) CO2 TOTAL (test code = 24 mmol/L 23-31 3506886008) AGAP (test code = 2-16 7775247755) BUN (test code = 19 mg/dL 7-23 1458660584) GLUCOSE (test code = 161 mg/dL 70-110 H 6405808267) CREATININE (test code = 0.51 mg/dL 0.5-1.04 6168245595) CALCIUM (test code = 9.4 mg/dL 8.6-10.6 3220674324) eGFR Calculation mL/min/1.73m2 (Non-) (test code = 0473353977) eGFR Calculation mL/min/1.73m2 () (test code = 7089203584) MADISYN (test code = MADISYN) Association of [...] tests). Lab Interpretation Abnormal (test code = 13765-3) [facility] (ALB, T.PRO, BILI T, BU/BC, ALT, AST, ALK PHOS)2019-03-11 20:52:00 Test Item Value Reference Range Interpretation Comments TOTAL BILI (test code = 9319101988) 0.6 mg/dL 0.1-1.1 BILI UNCON (test code = 1022236206) 0.5 mg/dL 0.1-1.1 BILI CONJ (test code = 0799006195) 0.0 mg/dL 0-0.3 T PROTEIN (test code = 5611348071) 7.7 g/dL 6.3-8.2 ALBUMIN (test code = 0446700826) 4.9 g/dL 3.5-5 ALK PHOS (test code = 9392981669) 61 U/L 34-122 ALT(SGPT) (test code = 5272245672) 26 U/L 9-51 AST(SGOT) (test code = 6817704356) 28 U/L 13-40 Lab Interpretation (test code = Normal 23149-6) [facility] [id number] 20:52:00 Test Item Value Reference Range Interpretation Comments LIPASE (test code = 9203536036) 22 U/L 0-220 Lab Interpretation (test code = Normal 24672-7) [facility]00 Test Item Value Reference Range Interpretation Comments APTT Patient (test See_Comment L [Automat ed code = 3173-2) message] The system which generated this result transmitted reference range : 23 - 38 Seconds . The reference range was not used to interpr et this result as normal/abnormal . MADISYN (test code = MADISYN) The [facility] patient population mean normal value for aPTT is 30 seconds. Lab Interpretation Abnormal (test code = 65656-1) [facility] / [id number] 20:38:00 Test Item Value Reference Range Interpretation [...] tions. Lab Interpretation (test Normal code = 12880-2) [facility] WITH [id number] 20:33:00 Test Item Value Reference Range Interpretation Comments WBC (test code = See_Comment [Automated 9890-2) message] The sy stem which generated this result transmitted reference range : 4.30 - 11.10 10*3/?L. The reference range was not used to interpret this result as normal/abnormal . RBC (test code = See_Comment [Automated 839-8) message] The sy stem which generated this [...] RDW-SD (test code = 44.3 fL 39-49.9 89092-7) RDW-CV (test code = 12.9 % 12-15.5 788-0) PLT (test code = See_Comment [Automated 777-3) message] The sy stem which generated this result transmitted reference range : 166 - 358 10*3/ ?L. The reference r aiden was not used to interpret this result as normal/abnormal . MPV (test code = 10.9 fL 9.5-12.9 72748-5) NRBC/100 WBC (test See_Comment [Automat ed code = 3537073181) message] The system which generated this result transmitted reference range : 0.0 - 10.0 /100 WBCs. The refer ence range was not u sed to interpret th is result as normal/abnormal . NRBC x10^3 (test code <0.01 See_Comment [Auto mated = 2509851776) message] The s ystem which generated this result transmitted reference range : 10*3/?L. The reference range was not used to interpret this result as normal/abnormal . GRAN MAT (NEUT) % 86.3 % (test code = 770-8) IMM GRAN % (test code 0.50 % = 8062044296) LYMPH % (test code = 8.8 % 736-9) MONO % (test code = 4.0 % 5905-5) EOS % (test code = 0.2 % 713-8) BASO % (test code = 0.2 % 706-2) GRAN MAT x10^3(ANC) 8.24 10*3/uL 1.88-7.09 H (test code = 1544442151) IMM GRAN x10^3 (test 0.05 10*3/uL 0-0.06 code = 4105269495) LYMPH x10^3 (test code 0.84 10*3/uL 1.32-3.29 L = 731-0) MONO x10^3 (test code 0.38 10*3/uL 0.33-0.92 = 742-7) EOS x10^3 (test code = <0.03 0.03-0.39 L 711-2) BASO x10^3 (test code <0.03 0.01-0.07 = 704-7) Lab Interpretation Abnormal (test code = 12452-3) [facility] Notes Date/Time Note Provider Source 2023-02-26 17:51:24-00:00 Formatting of this note migh t be different from the original. Lynsey Kong RN [facility] PT also refused dc vitals Electronically signed by Lynsey Kong RN at 5:51 PM CDT 2023-02-26 17:48:45-00:00 Formatting of this note migh t be different from the original. [facility] Pt given printed and verbal discharge instructions [...] different from the original. Lina Rao RN [facility] Pt to ed with 32 oz soda. [...]
[2023-03-21 17:24] LABS: Absolute Lymphocytes (CBC) 2.2 K/uL (0.7-4.9); Hematocrit 30.8 % (36.0-45.0); Lymphocytes % 34.1 % (15.3-44.8); Platelets 282 thou/uL (152-406); RBC Red Blood Cell Count 3.38 M/uL (3.86-4.86)
[2023-03-21 17:41] LABS: Albumin 4.2 g/dL (3.4-5.0); Bilirubin Total 0.2 mg/dL (0.2-1.0); Potassium 3.3 mEq/L (3.5-5.1); Protein, Total 7.3 g/dL (6.4-8.2)
[2023-03-21 17:56] LABS: Specific Gravity 1.005 (1.005-1.030); Urine Bacteria None Seen /HPF (<20); Urine Bilirubin NEGATIVE (Negative); Urine Blood Negative (Negative); Urine Clarity Clear (Clear); Urine Color Colorless (Yellow); Urine Glucose NEGATIVE (Negative); Urine Protein NEGATIVE (Negative); Urine RBC <5 /HPF (None Seen); Urine Urobilinogen Normal (Normal)
[2023-03-21] MEDS ORDERED: NA CHLORIDE 0.9% 1,000 ML ONE (18:07)
--- NOTE | 2023-03-21 18:36 | RAD REPORT ---
EXAM DESCRIPTION: CT - Abdomen Pelvis W Contrast - 03/21/2023 6:11 pm CLINICAL HISTORY: Abdominal pain COMPARISON: 2020 TECHNIQUE: Computed axial tomography of the abdomen pelvis was obtained. 100 cc Isovue-300 was admin istered intravenously. Oral contrast was not requested which limits evaluation of bowel and appendix All CT scans are performed using dose optimization technique as appropriate and may include automated exposure control or mA/KV adjustment according to patient size. FINDINGS: The liver, spleen, pancreas and adrenals unremarkable Small bilateral renal calculi. No hydronephrosis. Small hiatal hernia There is no evidence of diverticulitis. Normal appendix. No adnexal mass Mild thickening of loop of the wall of a loop of jejunum IMPRESSION: Mild thickening of loop of the wall of a loop of jejunum may indicate an enteritis Small nonobstructing renal calculi
--- NOTE | 2023-03-21 18:43 | EDPHYS ---
Physician Documentation [facility] Name: Dolores Pérez Age: 62 yrs Sex: Female : 1960 Arrival Date: 03/21/2023 Time: 16:29 Bed 17 Private MD: ED Physician Lam Yi HPI: 03/21 17:24 This 62 yrs old Female presents to ER via Ambulatory with complaints of Abdominal Pain. sb4 17:24 The patient presents with abdominal pain right lower quadrant. Onset: The sb4 symptoms/episode began/occurred 4 hour(s) ago. The symptoms do not radiate. Associated signs and symptoms: none. The symptoms are described as stabbing. Modifying factors: The symptoms are alleviated by nothing, the symptoms are aggravated by nothing. The patient has not experienced similar symptoms in the past. 17:24 The patient has been recently seen at the [facility] Emergency sb4 Department, last week. Historical: - Allergies: 16:49 NSAIDS; hb 16:49 peanuts; hb 16:49 Prednisone; hb 16:49 sesame seed; hb 16:49 Sulfa (Sulfonamide Antibiotics); hb - PMHx: 16:49 Anxiety; Asthma; COPD; depressive disorder; diabetes mellitus; High Cholesterol; hb Hypertension; Hypothyroidism; Transient cerebral ischemia; - Immunization history:: Adult Immunizations up to date. - Social history:: Smoking status: unknown. ROS: 17:26 Constitutional: Negative for fever, chills, and weight loss. sb4 17:26 Abdomen/GI: Positive for abdominal pain, Negative for nausea, vomiting, and diarrhea. 17:26 All other systems are negative. Exam: 17:26 Constitutional: This is a well developed, well nourished patient who is awake, alert, sb4 and in no acute distress. Head/Face: Normocephalic, atraumatic. Eyes: Extra-ocular motions intact. Periorbital areas with no swelling, redness, or edema. ENT: Mucous membranes moist. Cardiovascular: Regular rate and rhythm with a normal S1 and S2. Respiratory: Lungs have equal breath sounds bilaterally, clear to auscultation and percussion. No rales, rhonchi or wheezes noted. No increased work of breathing, no retractions or nasal flaring. Abdomen/GI: Soft, non-tender, no distension. Skin: Warm, dry with normal turgor. Normal color with no rashes, no lesions, and no evidence of cellulitis. MS/ Extremity: Pulses equal, no cyanosis. Neurovascular intact. Full, normal range of motion. Neuro: Awake and alert, GCS 15, oriented to person, place, time, and situation. Cranial nerves II-XII grossly intact. Motor strength 5/5 in all extremities. Sensory grossly intact. Cerebellar exam normal. Normal gait. 17:26 Abdomen/GI: Indicators: McBurney's point is not tender, Stewart's sign is negative, Rovsing's sign is negative. Vital Signs: 16:48 BP 169 / 56; Pulse 71; Resp 16; Temp 97.8(O); Pulse Ox 98% on R/A; Weight 56.7 kg; hb Height 5 ft. 7 in. ; Pain 7/10; 19:25 BP 123 / 59; Pulse 61; Resp 17 S; Pulse Ox 99% on R/A; ap3 16:48 Body Mass Index 19.58 (56.70 kg, 170.18 cm) hb 16:48 Pain Scale: Adult hb MDM: 16:43 Patient medically screened. sb4 17:26 Differential diagnosis: appendicitis, bowel obstruction, diverticulitis, non-specific sb4 abd pain, urinary tract infection. Data reviewed:. 18:41 Data reviewed: vital signs, nurses notes, lab test result(s), radiologic studies, and sb4 as a result, I will discharge patient. I considered the following discharge prescriptions or medication management in the emergency department Antibiotics: At this time antibiotics are not recommended, Pain Medications: At this time, prescription pain medications are not recommended. Care significantly affected by the following chronic conditions: Diabetes, Hypertension, Chronic Obstructive Pulmonary Disease. Counseling: I had a detailed discussion with the patient and/or guardian regarding the historical points, exam findings, and any diagnostic results supporting the discharge/admit diagnosis, the presence of at least one elevated blood pressure reading (>120/80) during this emergency department visit, lab results, radiology results, to return to the emergency department if symptoms worsen or persist or if there are any questions or concerns that arise at home. 03/21 16:46 Order name: CBC with Diff; Complete Time: 17:27 sb4 03/21 16:46 Order name: CMP; Complete Time: 17:44 sb4 03/21 16:46 Order name: Lipase; Complete Time: 17:44 sb4 03/21 16:46 Order name: UAM; Complete Time: 17:56 sb4 03/21 16:46 Order name: CT Abd/Pelvis - IV Contrast Only; Complete Time: 18:36 sb4 03/21 16:46 Order name: IV Saline Lock; Complete Time: 17:14 sb4 03/21 16:46 Order name: Labs collected and sent; Complete Time: 17:14 sb4 Administered Medications: 18:15 Drug: NS 0.9% IV 1000 ml Route: IV; Rate: 1 bolus; Site: right antecubital; ap3 20:14 Follow up: Response: No adverse reaction; IV Status: Completed infusion; IV Intake: ap3 1000ml Disposition: 19:31 Co-signature as Attending Physician, Lam CALLEJAS was immediately available on-site ms3 in the Emergency Department for consultation in the care of the patient. Disposition Summary: 03/21/23 18:42 Discharge Ordered Location: Home sb4 Problem: new sb4 Symptoms: have improved sb4 Condition: Stable sb4 Diagnosis - Other viral enteritis sb4 - Lower abdominal pain, unspecified sb4 Followup: sb4 - With: Private Physician - When: As needed - Reason: Recheck today's complaints, Continuance of care, Re-evaluation by your physician Discharge Instructions: - Discharge Summary Sheet sb4 - Abdominal Pain, Adult, [id number] sb4 Forms: - Medication Reconciliation Form sb4 - Thank You Letter sb4 - Antibiotic Education sb4 - Prescription Opioid Use sb4 - Patient Portal Instructions sb4 - Leadership Thank You Letter sb4 Signatures: Dispatcher [employer] Rocio Diaz RN Donna Jimenes RN RN apLam Kaiser DO DO ms3 Serina Rogers PA-C PA-C sb4 Corrections: (The following items were deleted from the chart) 17:25 17:24 The patient has been recently seen at the [facility] sb4 Emergency Department, sb4
--- NOTE | 2023-03-21 18:43 | ER ---
Nurse's Notes [facility] Name: Dolores Pérez Age: 62 yrs Sex: Female : 1960 Arrival Date: 03/21/2023 Time: 16:29 Bed 17 Private MD: Diagnosis: Other viral enteritis;Lower abdominal pain, unspecified Presentation: 03/21 16:48 Chief complaint: Sharp intermittent right sided abdominal pain and nausea x 3 hours. hb Coronavirus screen: At this time, the client does not indicate any symptoms associated with coronavirus-19. Ebola Screen: No symptoms or risks identified at this time. Initial Sepsis Screen: Does the patient meet any 2 criteria? No. Patient's initial sepsis screen is negative. Does the patient have a suspected source of infection? No. Patient's initial sepsis screen is negative. Risk Assessment: Do you want to hurt yourself or someone else? Patient reports no desire to harm self or others. Onset of symptoms was March 21, 2023. 16:48 Method Of Arrival: Ambulatory hb 16:48 Acuity: AARON 3 hb Historical: - Allergies: 16:49 NSAIDS; hb 16:49 peanuts; hb 16:49 Prednisone; hb 16:49 sesame seed; hb 16:49 Sulfa (Sulfonamide Antibiotics); hb - PMHx: 16:49 Anxiety; Asthma; COPD; depressive disorder; diabetes mellitus; High Cholesterol; hb Hypertension; Hypothyroidism; Transient cerebral ischemia; - Immunization history:: Adult Immunizations up to date. - Social history:: Smoking status: unknown. Screenin:15 [facility] ED Fall Risk Assessment (Adult) History of falling in the last 3 months, ap3 including since admission No falls in past 3 months (0 pts). Abuse screen: Denies threats or abuse. Nutritional screening: No deficits noted. Tuberculosis screening: No symptoms or risk factors identified. Assessment: 17:15 General: Appears in no apparent distress. Behavior is calm, cooperative, appropriate ap3 for age. Pain: Complains of pain in right lower quadrant. Pain: Pain began suddenly, 4 hours ago. Neuro: Level of Consciousness is awake, alert, obeys commands, Oriented to person, place, time, situation. Cardiovascular: Patient's skin is warm and dry. Respiratory: Airway is patent Respiratory effort is even, unlabored, Respiratory pattern is regular, symmetrical. GI: Abdomen is round non-distended, Bowel sounds present X 4 quads. Abd is soft. 19:20 Reassessment: discharge pending on fluids to be completed. ap3 19:25 General: Appears comfortable, Behavior is calm, cooperative. Pain: Denies pain. Neuro: ap3 Level of Consciousness is awake, alert, obeys commands, Oriented to person, place, time, situation. Cardiovascular: Patient's skin is warm and dry. Respiratory: Airway is patent Respiratory effort is even, unlabored, Respiratory pattern is regular, symmetrical. Vital Signs: 16:48 BP 169 / 56; Pulse 71; Resp 16; Temp 97.8(O); Pulse Ox 98% on R/A; Weight 56.7 kg; hb Height 5 ft. 7 in. ; Pain 7/10; 19:25 BP 123 / 59; Pulse 61; Resp 17 S; Pulse Ox 99% on R/A; ap3 16:48 Body Mass Index 19.58 (56.70 kg, 170.18 cm) hb 16:48 Pain Scale: Adult hb ED Course: 16:32 Patient arrived in ED. im 16:35 Serina Rogers PA-C is PHCP. sb4 16:35 Lam Yi DO is Attending Physician. sb4 16:49 Triage completed. hb 17:02 Donna Lawrence, JADEN is Primary Nurse. ap3 17:14 Initial lab(s) drawn, by ia, sent to lab. Inserted saline lock: 20 gauge in right ap3 antecubital area, using aseptic technique. Blood collected. 17:16 Arm band placed on right wrist. ap3 17:16 Patient has correct armband on for positive identification. Bed in low position. Call ap3 light in reach. Side rails up X 1. Pulse ox on. NIBP on. 17:49 [facility] Sent. mb9 18:12 CT Abd/Pelvis - IV Contrast Only In Process Unspecified. EDMS 19:05 Report received from JADEN Thompson. ap3 20:13 No provider procedures requiring assistance completed. IV discontinued, intact, ap3 bleeding controlled, No redness/swelling at site. Pressure dressing applied. 20:14 Provided Education on: follow up . ap3 Administered Medications: 18:15 Drug: NS 0.9% IV 1000 ml Route: IV; Rate: 1 bolus; Site: right antecubital; ap3 20:14 Follow up: Response: No adverse reaction; IV Status: Completed infusion; IV Intake: ap3 1000ml Medication: 19:52 VIS not applicable for this client. ap3 Intake: 20:14 IV: 1000ml; Total: 1000ml. ap3 Outcome: 18:42 Discharge ordered by . sb4 20:13 Discharged to home ambulatory. ap3 20:13 Condition: stable 20:13 Discharge instructions given to patient, Instructed on discharge instructions, follow up and referral plans. Demonstrated understanding of instructions, follow-up care. 20:14 Patient left the ED. ap3 Signatures: Dispatcher [employer] EDMS Rocio Raed RN RN Donna Lawrence RN RN ap3 Serina Rogers, PAIbethC PAIbethC Cherise Mccollum, RN RN mb9 Jenn Brady
[2023-03-21 20:20] VITALS: TEMP 97.8
[2023-03-21 20:21] VITALS: BP 123/59; O2SAT 99
== END 2023-03-21 20:14 | disposition home or self-care (01) ==
LOC: ER 16:29
DX: A08.39 Other viral enteritis (principal); Z88.2 Allergy status to sulfonamides; Z88.6 Allergy status to analgesic agent; Z91.010 Allergy to peanuts; Z91.018 Allergy to other foods
CPT/HCPCS: 96361; 85025; 81001; 36415; 83690; 80053; 74177; 96360; 99284; Q9967; J7030

== ENCOUNTER 2023-04-24 15:20 | Emergency (ER) | payer OTHER ==
--- OUTSIDE RECORDS SUMMARY | 2023-04-24 15:48 | XMS REPORT | Continuity of Care Document ---
:1960 Author Organization [facility] t Address [address] [facility] [address] [place] [address] Care Team Providers Name Role Phone PAULINA DUNHAM Primary Care Physician Unavailable Neida DUGGAN Attending Clinician Unavailable Neida Jiménez Attending Clinician Susan Rodriguez Attending Clinician Unknown, Attending Attending Clinician Unavailable SUSAN LEE Attending Clinician Unavailable Doctor Unassigned, [place] Attending Clinician Unavailable Only, Ang Db Test Attending Clinician Unavailable Monik Charles MD Attending Clinician MONIK CHARLES Attending Clinician Unavailable ALEX OCONNELL Attending Clinician Unavailable [place] Attending Clinician SHERRILL CONNOR Attending Clinician [...] Effective Date Expiration Date Teodora FALK II [id number] 2016 00:00:00 Problems Condition Condition Condition Status [...] ity of 00:00: [place] 00 Medical Branch [place] [employer] Active Anaphylaxis Uni vers ty to [...] Comments Source Gender identity [facility]it y of [facility] Social 2023-02-26 2023-02-26 Univers ity of function 00:00:00 00:00:00 [facility] Exposure to 2022-08-14 2022-08-24 Not sure [facility] SARS-CoV-2 (event) 00:00:00 09:35:00 [facility] Tobacco use and 2022-08-24 2022-08-24 Smokeless Universit y of exposure 00:00:00 00:00:00 tobacco non-user [facility] Sex Assigned At [birth year] Universit y of 00:00:00 00:00:00 [facility] Smoking Status Start Date Stop Date Source Never smoked tobacco [facility] Medications Ordered Filled Start Stop Current Ordering Indication Dosage Frequency Signature Comments Components Source Medication Medication Date Date Medication? Clinician (SIG) Name Name bromphenira Yes [id number] 5mL Take 5 mL Univers mine-pseudo 2-18 by mouth 4 it y of ephedrine-D 00:00[place] (four[place] (BROMF[place] 00 times Medical DM) 2-30-10 daily as Bran ch mg/5 mL needed for syrup Congestion /Allergies . bromphenira Yes [id number] 5mL Take 5 mL Univers mine-pseudo 2-18 by mouth 4 it y of ephedrine-D 00:00: (four[place] (BROMFED 00 times Medical DM) 2-30-10 daily as Bran ch mg/5 mL needed for syrup Congestion /Allergies . benzonatate Yes [id number] 100mg Take 1 Univers 100 mg 7-03 capsule by ity of capsule 00:00: mouth 3 [place] 00 (three) Medical times [place] daily as needed for Cough. loratadine Yes [id number] 10mg Take 1 U nivers (CLARITIN) 7-03 tablet by ity of 10 mg 00:00: mouth at [place] tablet 00 bedtime as Medical needed for Branch Allergies. benzonatate 2022-0 Yes [id number] 100mg Take 1 Univers 100 mg 7-03 capsule by ity of capsule 00:00: mouth 3 [place] 00 (three) Medical times Branch daily as needed for Cough. loratadine 2-0 Yes [id number] 10mg Take 1 U nivers (CLARITIN) 7-03 tablet by ity of 10 mg 00:00: mouth at [place] tablet 00 bedtime as Medical needed for Branch Allergies. benzonatate 2-0 Yes [id number] 100mg Take 1 Univers 100 mg 7-03 capsule by ity of capsule 00:00: mouth 3 [place] 00 (three) Medical times Branch daily as needed for Cough. loratadine 2-0 Yes [id number] 10mg Take 1 U nivers (CLARITIN) 7-03 tablet by ity of 10 mg 00:00: mouth at [place] tablet 00 bedtime as Medical needed for Branch Allergies. benzonatate 2-0 Yes [id number] 100mg Take 1 Univers 100 mg 7-03 capsule by ity of capsule 00:00: mouth 3 (three) Medical times Branch daily as needed for Cough. loratadine 2-0 Yes [id number] 10mg Take 1 U nivers (CLARITIN) 7-03 tablet by ity of 10 mg 00:00: mouth at [place] tablet 00 bedtime as Medical needed for Branch Allergies. benzonatate 2-0 Yes [id number] 100mg Take 1 Univers 100 mg 7-03 capsule by ity of capsule 00:00: mouth 3 00 (three) Medical times Branch daily as needed for Cough. loratadine 2-0 Yes [id number] 10mg Take 1 U nivers (CLARITIN) 7-03 tablet by ity of 10 mg 00:00: mouth at [place] tablet 00 bedtime as Medical needed for Branch Allergies. benzonatate 2022-0 Yes [id number] 100mg Take 1 Univers 100 mg 7-03 capsule by ity of capsule 00:00: mouth 3 [place] 00 (three) Medical times Branch daily as needed for Cough. loratadine 2022-0 Yes [id number] 10mg Take 1 U nivers (CLARITIN) 7-03 tablet by ity of 10 mg 00:00: mouth at [place] tablet 00 bedtime as Medical needed for Branch Allergies. benzonatate 2021-0 Yes [id number] 100mg Take 1 Univers 100 mg 2-01 capsule by ity of capsule 00:00: mouth 3 (three) Medical times Branch daily as needed for Cough. benzonatate 2021-0 Yes [id number] 100mg Take 1 Univers 100 mg 2-01 capsule by ity of capsule 00:00: mouth 3 (three) Medical times Branch daily as needed for Cough. benzonatate 2021-0 Yes [id number] 100mg Take 1 Univers 100 mg 2-01 capsule by ity of capsule 00:00: mouth (three) Medical times Branch daily as needed for Cough. benzonatate 2021-0 Yes [id number] 100mg Take 1 Univers 100 mg 2-01 capsule by ity of capsule 00:00: mouth (three) Medical times Branch daily as needed for Cough. benzonatate 2021-0 Yes [id number] 100mg Take 1 Univers 100 mg 2-01 capsule by ity of capsule 00:00: mouth (three) Medical times Branch daily as needed for Cough. benzonatate 2021-0 Yes [id number] 100mg Take 1 Univers 100 mg 2-01 capsule by ity of capsule 00:00: mouth (three) Medical times Branch daily as needed for Cough. benzonatate 2021-0 Yes [id number] 100mg Take 1 Univers 100 mg 2-01 capsule by ity of capsule 00:00: mouth (three) Medical times Branch daily as needed for Cough. benzonatate 2021-0 Yes [id number] 100mg Take 1 Univers 100 mg 2-01 capsule by ity of capsule 00:00: mouth (three) Medical times Branch daily as needed for Cough. benzonatate 2021-0 Yes [id number] 100mg Take 1 Univers 100 mg 2-01 capsule by ity of capsule 00:00: mouth (three) Medical times Branch daily as needed for Cough. benzonatate 2-0 Yes [id number] 100mg Take 1 Univers 100 mg 2-01 [...] Therapy: Other (see Comments) iopamidol 2020-07- No [id number] 120mL 120 mL, Univers (ISOVUE 2-25 12-24 Intravenou ity o f 370-500 mL) 00:15: 23:08 s, ONCE, 1 [place] injection 00 :00 dose, On Medica l 120 mL Fri Branch 06/29/21 at 1815, Routine amoxicillin 2020-07- No [id number] 1{tbl} Take 1 Univers -clavulanat 2-24 -04 [...] Indication s: acute pain ondansetron 2020-07- No [id number] 4mg Take 1 Univers 4 mg tablet 2-24 12-30 tablet by it y of 00:00: 05:59 mouth [place] 00 :00 every 8 Medical (eight) Branch hours for 5 days. atorvastati 2020-07 Yes 10mg 10 mg, Univ ers n (LIPITOR) 1-15 Oral, QHS, it y of tablet 10 03:00: First [place] 00 on [facility] 05/20/21 Branch at 2100, Until [...] 40 mg 00 First dose Medical on [facility] 05/20/21 at 0900, Until Discontinu ed, Routine clopidogreL 2020-07 Yes 75mg 75 mg, Univ ers (PLAVIX) 1-14 Oral, QAM, ity o f tablet 75 15:00: First [place] 00 on [facility] 05/20/21 Branch at 0900, Until Discontinu ed, Routine ALPRAZolam 2020-07 Yes .5mg 0.5 mg, Univ ers (XANAX) 1-14 Oral, ity of tablet 0.5 15:00: DAILY, [place] mg 00 First dose Medical on [facility] 05/20/21 at 0900, Until Discontinu ed, Routine spironolact 2020-07 Yes 25mg 25 mg, Univ ers one 1-14 Oral, BID, ity of (ALDACTONE) 14:00: First dose [place] tablet 25 00 on [facility] mg 05/20/21 Branch at 0800, Until Discontinu ed, Routine Sliding 2020-07 Yes Subcutaneo Univ ers Scale 1-14 us, AC, ity of Insulin-Reg 13:30: First dose [place] ular + [facility] Branch at 0730, Until Discontinu ed, Routine levothyroxi 2020-07 Yes 100ug 100 mcg, U nivers ne 1-14 Oral, ity of (SYNTHROID) 12:00: QAM-0600, [place] tablet 100 00 First dose Med ical mcg on [facility] 05/20/21 at 0600, Until Discontinu ed, Routine pantoprazol 2020-07 Yes 40mg 40 mg, Univ ers e 1-14 Oral, ity of (PROTONIX) 06:30: DAILY, [place] EC tablet 00 First dose Medi hermelindo 40 mg (after Branch last modificati on) on [place] 05/20/21 at 0030, Until Discontinu ed cyclobenzap 2020-07 Yes 10mg 10 mg, Univ ers rine 1-14 Oral, ity of (FLEXERIL) 06:12: TIDPRN, [place] tablet 10 13 Starting Medica [place] mg on [facility] 05/20/21 at 0012, Until Discontinu ed, Routine, Muscle Spasms, leg pain polyethylen 2020-07 Yes 17g 17 g, Unive rs e glycol 1-14 Oral, ity of 3350 powder 06:04: U39UPHN, [place] 17 g 16 Starting Medical on [facility] 05/20/21 at 0004, Until Discontinu ed, Routine, Constipati on glucagon 2020-07 Yes 1mg 1 mg, Univers (GLUCAGEN -14 Intramuscu ity of DIAGNOSTIC 05:29: lar, PRN, [place] KIT) 29 Starting Medical injection 1 on [facility] 05/19/21 at 2329, Until Discontinu ed, JEFFREY, Blood Glucose < or = 70 mg/dL and patient is unable to swallow or has mental changes. dextrose 50 2020-07 Yes 25mL 25 mL, Univ ers % in water 14 Slow IV ity of (D50W) 05:29: Push, PRN, [place] injection 29 Starting Medica l 25 mL on [facility] 05/19/21 at 2329, Until Discontinu ed, JEFFREY, Blood Glucose < or = 70 mg/dL and patient is unable to swallow or has mental status changes. ondansetron 2020-07 Yes 4mg 4 mg, Slow Univers (ZOFRAN 1-14 IV Push, ity of (PF)) 05:29: Q6HPRN, [place] injection 4 21 Starting Medi hermelindo mg on [facility] 05/19/21 at 2329, Until Discontinu ed, Routine, Nausea and Vomiting (N/V) morpHINE 2020-07 No 2mg 2 mg, Slow Un brice injection 2 14 11-15 IV Push, ity of mg 05:29: 05:28 Q4HPRN, [place] 11 :11 Starting Medical on [facility] Branch 05/19/21 at 2329, Until 05/20/21 at 2328, Routine, Pain (scale 7-10), Chest pain traMADoL 2020-07- No 50mg 50 mg, Univer s (ULTRAM) 07-2016 Oral, ity of tablet 50 05:29: 05:28 Q8HPRN, [place] mg 08 :08 Starting Medical on [facility] Branch 05/19/21 at 2329, Until 05/21/21 at 2328, Routine, Pain (scale 4-6) acetaminoph 2020-07 Yes 650mg 650 mg, Un brice en 14 Oral, ity of (TYLENOL) 05:29: Q6HPRN, [place] tablet 650 05 Starting Medic al mg on [facility] Branch 05/19/21 at 2329, Until Discontinu ed, Routine, Pain (scale 1-3) omeprazole 2020-07- No 20mg Take 20 mg Univers 20 mg 07-19 by mouth ity of capsule 23:30: 00:00 daily. [place] 33 :00 [facility] guaiFENesin 2020- No 100mg 100 mg, U nivers 100 mg/5 mL 09-14 Oral, ity of solution 05:00: 16:59 ONCE, 1 [place] 100 mg 00 :00 dose, Fri [facility] 09/13/20 at Branch 2300, Routine ketorolac 2020- No 30mg 30 mg, Unive rs (TORADOL) 09-1411 Slow IV ity of injection 03:30: 02:27 Push, [place] 30 mg 00 :00 ONCE, 1 Medical dose, [facility] 09/13/20 at 2130, JEFFREY
Fa culty member approving Restricted medication : DIANA BERG benzonatate Yes [id number] 100mg Take 1 Univers 100 mg 3-10 capsule by ity of capsule 00:00: mouth 3 [place] 00 (three) Medical times Branch daily as needed for Cough. benzonatate Yes [id number] 100mg Take 1 Univers 100 mg 3-10 capsule by ity of capsule 00:00: mouth 3 [place] 00 (three) Medical times Branch daily as needed for Cough. benzonatate 2020- No [id number] 100mg Take 1 Univers 100 mg 09-13- [...] 10 1929, JEFFREY mL codeine-gua 2019-0 Yes [id number] 10mL Take 10 mL Univers ifenesin -21 by mouth ity of 10-100 mg/5 00:00: every 6 [place] as mL solution 00 (six) Medical hours as Branch needed for Cough. albuterol 2020-0 Yes [id number] 2.5mg Inhale 3 Univers 2.5 mg /3 1-21 mL every 4 ity of mL (0.083 00:00: (four) [place] %) 00 hours as Medical nebulizer needed for Bran ch solution Wheezing or Shortness of Breath. May also nebulize one extra every 6 hours. albuterol 2020-0 Yes [id number] 2.5mg Inhale 3 Univers 2.5 mg /3 1-21 mL every 4 ity of mL (0.083 00:00: (four) [place] %) 00 hours as Medical nebulizer needed for Bran ch solution Wheezing or Shortness of Breath. May also nebulize one extra every 6 hours. albuterol 2020-0 Yes [id number] 2.5mg Inhale 3 Univers 2.5 mg /3 1-21 mL every 4 ity of mL (0.083 00:00: (four) [place] %) 00 hours as Medical nebulizer needed for Bran ch solution Wheezing or Shortness of Breath. May also nebulize one extra every 6 hours. albuterol 2020-0 Yes [id number] 2.5mg Inhale 3 Univers 2.5 mg /3 1-21 mL every 4 ity of mL (0.083 00:00: (four) [place] %) 00 hours as Medical nebulizer needed for Bran ch solution Wheezing or Shortness of Breath. May also nebulize one extra every 6 hours. albuterol 2020-0 Yes [id number] 2.5mg Inhale 3 Univers 2.5 mg /3 1-21 mL every 4 ity of mL (0.083 00:00: (four) [place] %) 00 hours as Medical nebulizer needed for Bran ch solution Wheezing or Shortness of Breath. May also nebulize one extra every 6 hours. albuterol 2020-0 Yes [id number] 2.5mg Inhale 3 Univers 2.5 mg /3 1-21 mL every 4 ity of mL (0.083 00:00: ([facility]) [place] %) 00 hours as Medical nebulizer needed for Bran ch solution Wheezing or Shortness of Breath. May also nebulize one extra every 6 hours. albuterol 2020-0 Yes [id number] 2.5mg Inhale 3 Univers 2.5 mg /3 1-21 mL every 4 ity of mL (0.083 00:00: (four) [place] %) 00 hours as Medical nebulizer needed for Bran ch solution Wheezing or Shortness of Breath. May also nebulize one extra every 6 hours. albuterol 2020-0 Yes [id number] 2.5mg Inhale 3 Univers 2.5 mg /3 1-21 mL every 4 ity of mL (0.083 00:00: (four) [place] %) 00 hours as Medical nebulizer needed for Bran ch solution Wheezing or Shortness of Breath. May also nebulize one extra every 6 hours. albuterol 2020-0 Yes [id number] 2.5mg Inhale 3 Univers 2.5 mg /3 1-21 mL every 4 ity of mL (0.083 00:00: (four) [place] %) 00 hours as Medical nebulizer needed for Bran ch solution Wheezing or Shortness of Breath. May also nebulize one extra every 6 hours. albuterol 2020-0 Yes [id number] 2.5mg Inhale 3 Univers 2.5 mg /3 1-21 mL every 4 ity of mL (0.083 00:00: (four) [place] %) 00 hours as Medical nebulizer needed for Bran ch solution Wheezing or Shortness of Breath. May also nebulize one extra every 6 hours. albuterol 2020-0 Yes [id number] 2.5mg Inhale 3 Univers 2.5 mg /3 1-21 mL every 4 ity of mL (0.083 00:00: (four) [place] %) 00 hours as Medical nebulizer needed for Bran ch solution Wheezing or Shortness of Breath. May also nebulize one extra every 6 hours. albuterol 2020-0 Yes [id number] 2.5mg Inhale 3 Univers 2.5 mg /3 1-21 mL every 4 ity of mL (0.083 00:00: (four) [place] %) 00 hours as Medical nebulizer needed for Bran ch solution Wheezing or Shortness of Breath. May also nebulize one extra every 6 hours. albuterol 2020-0 Yes [id number] 2.5mg Inhale 3 Univers 2.5 mg /3 1-21 mL every 4 ity of mL (0.083 00:00: (four) [place] %) 00 hours as Medical nebulizer needed for Bran ch solution Wheezing or Shortness of Breath. May also nebulize one extra every 6 hours. albuterol 2020-0 Yes [id number] 2.5mg Inhale 3 Univers 2.5 mg /3 1-21 mL every 4 ity of mL (0.083 00:00: (four) [place] %) 00 hours as Medical nebulizer needed for Bran ch solution Wheezing or Shortness of Breath. May also nebulize one extra every 6 hours. albuterol 2020-0 Yes [id number] 2.5mg Inhale 3 Univers 2.5 mg /3 1-21 mL every 4 ity of mL (0.083 00:00: (four) [place] %) 00 hours as Medical nebulizer needed for Bran ch solution Wheezing or Shortness of Breath. May also nebulize one extra every 6 hours. albuterol 2020-0 Yes [id number] 2.5mg Inhale 3 Univers 2.5 mg /3 1-21 mL every 4 ity of mL (0.083 00:00: (four) [place] %) 00 hours as Medical nebulizer needed for Bran ch solution Wheezing or Shortness of Breath. May also nebulize one extra every 6 hours. codeine-gua 2020- No [id number] 10mL Take 10 mL Univers ifenesin 07-27 [...] 03/11/19 at 1430, JEFFREY dicyclomine 2018- Yes [id number] 10mg Take 1 Univers (BENTYL) 10 9-05 capsule by it y of mg capsule 00:00: mouth 4 [place] (four) Medical times Branch daily. ondansetron 2018- Yes [id number] 4mg Take 1 Univers 4 mg 9-05 tablet by ity of disintegrat 00:00: mouth [place] ing tablet 00 every 4 Medica l (four) Branch hours as needed for Nausea and Vomiting (N/V). dicyclomine 2019-0 Yes [id number] 10mg Take 1 Univers (BENTYL) 10 9-05 capsule by it y of mg capsule 00:00: mouth 4 [place] 00 (four) Medical times Branch daily. ondansetron 2019-0 Yes [id number] 4mg Take 1 Univers 4 mg 9-05 tablet by ity of disintegrat 00:00: mouth [place] ing tablet 00 every 4 Medica l (four) Branch hours as needed for Nausea and Vomiting (N/V). dicyclomine 2019-0 Yes [id number] 10mg Take 1 Univers (BENTYL) 10 9-05 capsule by it y of mg capsule 00:00: mouth 4 [place] (four) Medical times Branch daily. ondansetron Yes [id number] 4mg Take 1 Univers 4 mg 9-05 tablet by ity of disintegrat 00:00: mouth [place] ing tablet 00 every 4 Medica l (four) Branch hours as needed for Nausea and Vomiting (N/V). dicyclomine 2020- No [id number] 10mg Take 1 Univers (BENTYL) 10 9-05 03-10 capsule by i ty of mg capsule 00:00: 00:00 mouth 4 [place] as 00 :00 (four) Medical times Branch daily. ondansetron 2020- No [id number] 4mg Take 1 Univers 4 mg 9-05 [...] by mouth ity of tablet 14:40: at [place] [address] bedtime. Medical Branch omeprazole 2018-0 Yes 20mg Take 20 mg U nivers 20 mg 4-10 by mouth ity of capsule 14:40: daily. [place] [address] Medical Branch atorvastati 2018-0 Yes 10mg Take 10 mg Univers n 10 mg 4-10 by mouth ity of tablet 14:40: at [place] [address] bedtime. Medical Branch omeprazole 2018-0 Yes 20mg Take 20 mg U nivers 20 mg 4-10 by mouth ity of capsule 14:40: daily. [place] [address] Medical Branch atorvastati 2017-0 Yes 10mg Take 10 mg Univers n 10 mg 4-10 by mouth ity of tablet 14:40: at [place] [address] bedtime. Medical Branch omeprazole 2018-0 Yes 20mg Take 20 mg U nivers 20 mg 4-10 by mouth ity of capsule 14:40: daily. [place] [address] Medical Branch atorvastati 2017-0 Yes 10mg Take 10 mg Univers n 10 mg 4-10 by mouth ity of tablet 14:40: at [place] [address] bedtime. Medical Branch omeprazole 2017-0 Yes 20mg Take 20 mg U nivers 20 mg 4-10 by mouth ity of capsule 14:40: daily. [place] [address] Medical Branch atorvastati 2017-0 Yes 10mg Take 10 mg Univers n 10 mg 4-10 by mouth ity of tablet 14:40: at [place] [address] bedtime. Medical Branch omeprazole 2018-0 Yes 20mg Take 20 mg U nivers 20 mg 4-10 by mouth ity of capsule 14:40: daily. [place] [address] Medical Branch levothyroxi 0 Yes TAKE 1 [...] 2-06 TABLET BY ity of tablet 00:00: [facility] 00 EVERY Medical MORNING Branch clopidogrel [...] mm[Hg] Univer sity of pressure [place] Medical [place] Diastolic blood 2023-02-26 20:38:00 75 mm[Hg] Unive rsity of [facility] Heart rate 2023-02-26 20:38:00 81 /min Universi ty of [facility] Body temperature 2023-02-26 20:38:00 36.72 Brittany [facility] 2023-02-26 20:38:00 18 /min [facility] Body height 2023-02-26 20:38:00 170.2 cm Universi ty of [facility] Body weight 2023-02-26 20:38:00 57.607 kg Universi ty of [facility] BMI 2023-02-26 20:38:00 19.89 kg/m2 Universi ty [facility] Oxygen saturation in 2023-02-26 20:38:00 100 /min [facility] Arterial blood by [facility] Pulse oximetry Branch Systolic blood 2022-08-24 15:43:00 135 mm[Hg] Univer sity of [facility] Diastolic blood 2022-08-24 15:43:00 83 mm[Hg] Unive rsity of [facility] Heart rate 2022-08-24 15:43:00 94 /min Universi ty of [facility] Body temperature 2022-08-24 15:43:00 36.83 Brittany Univ ersity of [facility] Respiratory rate 2022-08-24 15:43:00 18 /min Univ ersity of [facility] Body height 2022-08-24 15:43:00 170.2 cm Universi ty of [facility] Body weight 2022-08-24 15:43:00 58.968 kg Universi ty of [facility] BMI 2022-08-24 15:43:00 20.36 kg/m2 Universi ty of [place] [facility] Oxygen saturation in 2022-08-24 15:43:00 99 /min University of Arterial blood by [facility] hermelindo Pulse oximetry Branch Systolic blood 2022-01-08 [...] blood by [facility] Pulse oximetry Branch Body temperature [...] blood by [facility] Pulse oximetry Branch Systolic blood [...] blood by [facility] Pulse oximetry Branch Body temperature [...] blood by [facility] Pulse oximetry Branch Systolic blood [...] blood by [facility] Pulse oximetry Branch Body temperature [...] blood by [facility] Pulse oximetry Branch Body weight [...] blood by [facility] Pulse oximetry Branch Body temperature [...] /min University of Arterial blood by [place] [address] hermelindo Pulse oximetry Branch Body temperature 2020-09-14 [...] /min University of Arterial blood by [place] [address] hermelindo Pulse oximetry Branch Systolic blood 2019-07-28 [...] /min University of Arterial blood by [place] [address] hermelindo Pulse oximetry Branch Systolic blood 2019-07-28 01:00:00 143 mm[Hg] Univer sity of pressure [place] [facility] Diastolic blood 2019-07-28 01:00:00 74 mm[Hg] Unive rsity of pressure [place] [facility] Body temperature 2019-07-28 00:05:00 36.56 Brittany Univ ersity of [place] [facility] Body height 2019-07-28 00:05:00 170.2 cm Universi ty of [place] [facility] [place] Body weight 2019-07-28 00:05:00 68.04 kg Universi [...] blood by [facility] Pulse oximetry Branch Body temperature [...] Branch Heart rate 2019-03-11 21:00:00 97 /min [facility] Respiratory rate 2019-03-11 21:00:00 18 /min [facility] Oxygen saturation in 2019-03-11 21:00:00 97 /min [facility] Arterial blood by [facility] Pulse oximetry [place] Body temperature 2019-03-11 19:13:00 36.06 Brittany [facility] Body weight 2019-03-11 19:12:00 68.04 kg [facility] BMI 2019-03-11 19:12:00 23.49 kg/m2 [facility] Procedures Procedure Date / Time Performing Clinician Source Performed COMP. METABOLIC PANEL 2023-02-26 21:14:00 Neida Duggan [facility] ([id number]) [facility] CBC WITH DIFF 2023-02-26 21:14:00 Neida Duggan [place] o f [facility] CONSENT/REFUSAL FOR 2023-02-26 20:33:07 Doctor Unassigned, No Un [facility] DIAGNOSIS AND TREATMENT Name [facility] POCT SARS-COV-2 ANTIGEN 2022-08-24 15:52:00 Susan Lee [facility] (BINAX NOW) [facility] POCT MOLECULAR FLU 2022-08-24 15:51:00 Unknown, Attending [facility] ASSIGNMENT OF BENEFITS 2022-08-24 15:38:07 Doctor Unassigned, No [facility] Name [facility] XR CHEST 1 VW 2022-01-08 00:24:42 Alex Oconnell [facility] RAPID STREP SCREEN FOR 2022-01-06 20:47:00 [facility] Medical Branch COVID-19 (ID NOW RAPID 2022-01-06 20:47:00 [facility] TEST[facility]) Medical Branch CONSENT/REFUSAL FOR 2022-01-06 20:26:18 Doctor Unassigned, No Un [facility] DIAGNOSIS AND TREATMENT Name [facility] RAPID INFLUENZA A/B 2021-09-02 00:47:00 Cameron Dalton [facility] COVID-19 (ID NOW RAPID 2021-09-02 00:47:00 Cameron Dalton [facility] TESTING) Medical Branch XR CHEST 2 VW 2021-09-02 00:27[facility]31 [facility] 2021-09-01 23:46:25 [facility]igned, No [facility] [facility] Name Medical Branch XR CHEST 2 VW 2021-08-07 16:43:01 Darius [facility] CONSENT/REFUSAL FOR 2021-08-07 15:37:28 Doctor Unassigned, No [facility] Name Medical Branch CT ABDOMEN PELVIS W 2021-06-29 23:11:24 Jose Alejandro Castano [facility] CONTRAST Medical Branch LIPASE 2021-06-29 22:18:00 [facility] 2021-06-29 22:18:00 Omaira [facility] COMP. METABOLIC PANEL 2021-06-29 22:18:00 Omaira [facility] ([id number]) Medical Branch CBC WITH DIFF 2021-06-29 22:18:00 Omaira [facility] URINALYSIS 2021-06-29 22:18:00 [facility] CONSENT/REFUSAL FOR 2021-06-29 21:50:47 Doctor Unassigned, No [facility] Name [facility] POCT GLUCOSE (AUTOMATED) 2021-05-20 17:30:00 Marcelina Che [facility] HB ECG ROUTINE & RHYTHM 2021-05-20 15:36:46 Sami Caceres [facility] STRIP [facility] Branch TRANSTHORACIC ECHO (TTE) 2021-05-20 15:19:[address] [facility] COMPLETE [facility] TROPONIN I 2021-05-20 11:04:00 Yane [facility] BASIC METABOLIC PANEL 2021-05-20 11:04[facility] ([facility], K, CL, CO2, Medical Branch GLUCOSE, BUN, CREATININE, CA) CBC WITH DIFF 2021-05-20 11:04:00 Marcelina [facility] TROPONIN I 2021-05-20 01:56:00 Neida [facility] XR CHEST 1 VW 2021-05-20 00:01:05 Neida [facility] LIPASE 2021-05-19 23:49:00 Neida [facility] MAGNESIUM 2021-05-19 23:49:00 Neida [facility] TROPONIN I 2021-05-19 23:49:00 Neida [facility] COMP. METABOLIC PANEL 2021-05-19 23:49:00 Neida Duggan [facility] ([id number]) [facility] CBC WITH DIFF 2021-05-19 23:49:00 Neida [facility] PROTHROMBIN TIME / INR 2021-05-19 23:49:00 [facility] ACTIV[facility] PARTIAL 2021-05-19 23:49:00 Neida Duggan [facility] THRMPLAS [facility] COVID-19 (ID NOW RAPID 2021-05-19 23:49:00 Neida Duggan [facility] TESTING) [facility] CONSENT/REFUSAL FOR 2021-05-19 23:01:42 Doctor Unassigned, No [facility] DIAGNOSIS AND TREATMENT Name Medical Branch URINALYSIS 2020-09-14 02:42:00 Diana Berg [facility] XR CHEST 1 VW 2020-09-14 02:30:21 Diana Berg [facility] LIPASE 2020-09-14 02:21:00 Diana Berg [facility] TROPONIN I 2020-09-14 02:21:00 Diana Berg [facility] HEPATIC FUNCTION PANEL 2020-09-14 02:21:00 Diana Berg [facility] ([id number]) (ALB,T.PRO,BILI Medical Branch T,BU/BC,ALT,AST,ALK PHOS) BASIC METABOLIC PANEL 2020-09-14 02:21:00 Diana [facility] [place] (NA, K, CL, CO2, Medical Branch GLUCOSE, BUN, CREATININE, CA) CBC WITH DIFF 2020-09-14 02:21:00 Diana Berg [facility] N-TERMINAL PRO-BNP 2020-09-14 02:21:00 Diana [facility] (ID NOW RAPID 2020-09-14 02:21:00 Diana [facility] [place] [facility] NOTICE OF PRIVACY 2020-09-14 02:00:22 Doctor Unassigned, No [facility] Name [facility] CONSENT/REFUSAL FOR 2020-09-14 01:58:28 Doctor Unassigned, No [facility] [place] [facility] Name [facility] HEPATIC FUNCTION PANEL 2019-07-28 00:55:00 [facility]angel [facility]ga [facility] ([id number] (ALB,T.PRO,BILI Medical Branch T,BU/BC,ALT,AST,ALK PHOS) BASIC METABOLIC PANEL 2019-07-28 00:55:00 Mariangel Ortega [facility] [place] (NA, K, CL, CO2, Medical Branch GLUCOSE, BUN, CREATININE, CA) CBC WITH DIFFERENTIAL 2019-07-28 00:55:00 Mariangel Ortega [facility] RAPID STREP SCREEN FOR 2019-07-28 00:55:00 Mariangel [facility] GROUP A [facility] ADC,CLC OR LCC ONLY - 2019-07-28 00:55:00 Mariangel Ortega [facility] [place] INFLUENZA A & B DIRECT Medical [facility] [place] ANTIGEN CBC WITH DIFFERENTIAL 2019-07-28 00:55:00 Mariangel Ortega [facility] XR CHEST 2 VW 2019-07-28 00:28:40 Mariangel Ortega [facility] CONSENT/REFUSAL FOR 2019-07-27 23:47:18 Doctor Unassigned, No [facility] [place] [facility] TREATMENT Name Medical Branch LIPASE 2019-03-11 19:53:00 Sherrill Connor Gustine o f [facility] HEPATIC FUNCTION PANEL 2019-03-11 19:53:00 Sherrill Connor [facility] ([id number]) (ALB,T.PRO,BILI [facility] Branch T,BU/BC,ALT,AST,ALK PHOS) BASIC METABOLIC PANEL 2019-03-11 19:53:00 Sherrill Connor [facility] (NA, K, CL, CO2, Medical Branch GLUCOSE, BUN, CREATININE, CA) CBC WITH DIFFERENTIAL 2019-03-11 19:53:00 Sherrill Connor [facility] PROTHROMBIN TIME / INR 2019-03-11 19:53:00 Sherrill Connor [facility] ACTIVATED PARTIAL 2019-03-11 19:53:00 Sherrill Connor [facility] NOTICE OF PRIVACY 2019-03-11 18:56:54 Doctor Unassigned, No Univ [facility] PRACTICES Name [facility] Encounters Start End Encounter Admission Attending Care Care Encounter Source Date/Time Date/Time Type Type Clinicians Facility Department ID 2021-05-06 Emergency [facility] [id number] Univers 05:05:13 ity of [facility] 2023-02-26 2023-02-26 Emergency X OLGA LIDIA Neida [facility] ERT [id number] Univers 15:53:00 17:52:00 ity of [facility] 2023-02-26 2023-02-26 Emergency Olga LidiaNeida [facility] 1.2.840.114 [id number] Univers 15:53:00 17:52:00 Leonarda DENNISON [id number] i ty of [place] 4.2.7.2.686 [place] [facility] [id number] [facility] 084 Branch 2022-08-24 2022-08-24 Urgent Susan Lee [facility] 1.2.840.11 [id number] Univers 09:40:00 10:00:00 Care Unknown, Attending HEALTH [id number] ity of [place] 4.2.7.2.686 Amandeep as JOCELYN?BLEA [phone] [place] [address] MEDICAL OFFICE BUILDING 2022-08-24 2022-08-24 Outpatient R TAMIKO [facility] [id number] Univers 09:40:00 09:40:00 SUSAN ity of [facility] 2022-08-24 2022-08-24 Orders Doctor SUSHIL 1.2.840.114 [id number] Univers 00:00:00 00:00:00 Only Unassigned, KIRK [id number] ity of [place] [facility] 4.2.7.2.686 Amandeep as [phone] [address] 2022-01-11 2022-01-11 Laboratory Only, Ang Db Test [facility] 1.2.8 40.114 [id number] Univers 13:15:00 13:30:00 Only Monik Charles [facility] [id number] ity of [place] 4.2.7.2.686 Amandeep as JOCELYN?BLEA [id number] [address] MEDICAL OFFICE BUILDING 2022-01-11 2022-01-11 Outpatient Torres CHARLES [facility] [id number] Univers 13:15:00 13:24:38 MONIK delaney [facility] 2022-01-07 2022-01-07 [facility] [id number] Univers 18:26:00 21:08:00 ALEX garcia [facility] 2022-01-07 2022-01-07 Emergency [facility] 1.2.661.134 [id number] Univers 18:26:00 21:08:00 Alex DENNISON [id number] ity of [place] 4.2.7.2.686 [facility] [id number] [address] 2022-01-06 2022-01-06 Emergency [facility] [id number] Univers 15:31:00 16:32:00 SHERRILL delaney [facility] 2022-01-06 2022-01-06 Emergency [facility] 1.2.197.825 [id number] Univers 15:31:00 16:32:00 Sherrill DENNISON 350.1.13.10 i ty of [facility] 4.2.7.2.686 [facility] [phone] [address] 2021-09-01 2021-09-01 Emergency X [facility] ERT [id number] Univers 17:59:00 19:56:00 CAMERON delaney [facility] 2021-09-01 2021-09-01 Emergency [facility] 1.2.840.114 [id number] Univers 17:59:00 19:56:00 Cameron DENNISON 350.1.13.10 i ty of [place].7.2.[place] [id number] [place] [address]34 [place] 2021-09-01 2021-09-01 Orders Doctor SUSHIL 1.2.840.114 [id number] Univers 00:00:00 00:00:00 Only Unassigned, KIRK 350.1.13.10 ity of [place] HOSPITAL 4.2.7.2.686 Amandeep as [phone] [facility] [address] [place] 2021-08-08 2021-08-08 Letter SUSHIL Daniels 1.2.840.114 [id number] Univers 00:00:00 00:00:00 (Out) Nirmala BRADLEY 350.1.13.10 it y of HOSPITAL 4.2.7.2.686 Amandeep as [id number] [facility] 019 [place] 2021-08-07 2021-08-07 Emergency X [facility] ERT [id number] Univers 09:58:00 11:43:00 DARIUS delaney of [facility] 2021-08-07 2021-08-07 Emergency [facility] [id number] Univers 09:58:00 11:43:00 Darius BRAGGDORINA 350.1.13.10 i ty of [place] 4.2.7.2.686 [place] [facility] [phone] [place] 309834 [place] 2021-08-07 2021-08-07 Orders Doctor SUSHIL 1.2.840.114 [id number] Univers 00:00:00 00:00:00 Only Unassigned, KIRK 350.1.13.10 ity of [place] HOSPITAL 4.2.7.2.686 Amandeep as [phone] [facility] [address] [place] 2021-06-29 2021-06-29 Emergency X OMAIRA [facility] ERT [id number] Univers 16:04:00 19:33:00 JOSE ALEJANDRO delaney [facility] 2021-06-29 2021-06-29 Emergency Omaira [facility] 1.2.840.114 [id number] Univers 16:04:00 19:33:00 Jose Alejandro DENNISON 350.1.13.10 i ty of [facility] 4.2.7.2.686 [facility] [id number] [address] 2021-05-19 2021-05-20 [facility] [id number] Univers 17:04:00 17:03:00 MARCELINA delaney [facility] 2021-05-19 2021-05-20 Emergency Neida Duggan Leonarda [facility] 1..840. 114 [id number] Univers 17:04:00 17:03:00 Marcelina Che JESI 350.1.13.10 ity [facility] 4.2.7.2.686 [facility] [id number] [address] 2020-09-16 2020-09-16 Outpatient R LUIS MANUEL [facility] [id number] Univers 10:20:00 10:20:00 NICOLE ity [facility] 2020-09-16 2020-09-16 Laboratory Lab, [facility] 1..840.114 [id number] 09:44:15 10:04:15 Only Fam Pob I Health 350.1.13.10 [place] 4.2.7.2.686 Professio [id number] [place] [address] [address] 2020-09-16 2020-09-16 Laboratory Lab, [facility] Fam Pob I [facility] 1.. 840.114 [id number] Univers 09:44:15 10:04:15 Only Nicole [facility] 350.1.13.10 ity of [place] 4.2.7.2.686 Amandeep as Professio [phone] [place] dical [address] Office [address] 2020-09-13 2020-09-13 Emergency [facility] 1.2.840.114 [id number] 20:05:00 22:24:00 Diana Dennison 350.1.13.10 [place] 4.2.7.2.686 [place] [id number] [facility] 2020-09-13 2020-09-13 Emergency Rohan, [facility] 1.2.840.114 [id number] [facility] 20:05:00 22:24:00 Diana Braggton 350.1.13.10 ity of [place] 4.2.7.2.686 [facility] [id number] [address] 2019-07-27 2019-07-27 Emergency [facility] 1.2.840.114 [id number] 18:07:12 20:13:00 Mariangel Ada Jesi 350.1.13.10 [place] 4.2.7.2.686 [place] [id number] [facility] 2019-07-27 2019-07-27 Emergency [facility] 1.2.840.114 [id number] [facility] 18:07:12 20:13:00 Mariangel Dennison 350.1.13.10 ity of [place] 4.2.7.2.686 [facility] [id number] [address] 2019-07-27 2019-07-27 Orders Doctor LING 1.2.840.114 [id number] 00:00:00 00:00:00 Only Unassigned, KIRK 350.1.13.10 [place] [facility] 4.2.7.2.686 [id number] [facility] 2019-07-27 2019-07-27 Orders Doctor LING 1.2.840.114 [id number] Univers 00:00:00 00:00:00 Only Unassigned, KIRK 350.1.13.10 ity of [place] HOSPITAL 4.2.7.2.686 Amandeep [phone] [address] 2019-03-11 2019-03-11 Emergency [facility] 1.2.351.292 [id number] 14:05:54 16:45:00 Sherrill Dennison 350.1.13.10 [place] 4.2.7.2.686 [place] [id number] [facility] 2019-03-11 2019-03-11 Emergency [facility] 1.2.759.457 [id number] Univers 14:05:54 16:45:00 Sherrill Dennison 350.1.13.10 i [facility] 4.2.7.2.686 [facility] [phone] [facility] 084 Branch Results Test Description Test Time Test Comments Results Result Comments Source COMP. METABOLIC PANEL (21428) 2023-02-26 22:05:45 Test Item Value Reference Range Interpretation Comme nts NA (test code = 6657908720) 136 mmol/L 135-145 K (test code = 4881189999) 3.7 mmol/L 3.5-5.0 CL (test code = 1320416963) 100 mmol/L 98-108 CO2 TOTAL (test code = 6298451917) 26 mmol/L 23-31 AGAP (test code = 1262206166) 10 2-16 BUN (test code = 0775354115) 11 mg/dL 7-23 GLUCOSE (test code = 3044479928) 123 mg/dL 70-110 H CREATININE (test code = 0.61 mg/dL 0.50-1.04 6843909463) TOTAL BILI (test code = 0.2 mg/dL 0.1-1.0 5855372231) CALCIUM (test code = 3512074900) 9.6 mg/dL 8.6-10.6 T PROTEIN (test code = 7443014516) 7.6 g/dL 6.3-8.2 ALBUMIN (test code = 3014819401) 4.8 g/dL 3.5-5.0 ALK PHOS (test code = 4369967097) 83 U/L 34-122 ALTv (test code = 1742-6) 20 U/L 5-35 AST(SGOT) (test code = 0148118656) 28 U/L 13-40 eGFR (test code = 5589900943) 99.1 mL/min/1.73m2 MADISYN (test code = MADISYN) [...] tests). Lab Interpretation (test code = Abnormal 48873-3) [facility] WITH [id number] 21:53:23 Test Item Value Reference Range Interpretation Comments WBC (test code = 6.64 See_Comment [Automated 5990-2) message] The sy stem which generated this result transmitted reference range : 4.30 - 11.10 10*3/?L. The reference range was not used to interpret this result as normal/abnormal . RBC (test code = 3.46 See_Comment L [Automated 719-8) message] The sy stem which [...] RDW-SD (test code = 42.1 fL 39.0-49.9 46753-2) RDW-CV (test code = 12.9 % 12.0-15.5 788-0) PLT (test code = 274 See_Comment [Automated 777-3) message] The sy stem which generated this result transmitted reference range : 166 - 358 10*3/ ?L. The reference r aiden was not used to interpret this result as normal/abnormal . MPV (test code = 10.4 fL 9.5-12.9 51006-8) NRBC/100 WBC (test 0.0 See_Comment [Automat ed code = 6917414667) message] The system which generated this result transmitted reference range : 0.0 - 10.0 /100 WBCs. The refer ence range was not u sed to interpret th is result as normal/abnormal . NRBC x10^3 (test code See_Comment [Auto mated = 6573200350) message] The s ystem which generated this result transmitted reference range : 10*3/?L. The reference range was not used to interpret this result as normal/abnormal . GRAN MAT (NEUT) % 52.0 % (test code = 770-8) IMM GRAN % (test code 0.50 % = 4686080306) LYMPH % (test code = 34.2 % 736-9) MONO % (test code = 6.8 % 5905-5) EOS % (test code = 6.2 % 713-8) BASO % (test code = 0.3 % 706-2) GRAN MAT x10^3(ANC) 3.46 10*3/uL 1.88-7.09 (test code = 5512811869) IMM GRAN x10^3 (test 0.03 10*3/uL 0.00-0.06 code = 0018691827) LYMPH x10^3 (test code 2.27 10*3/uL 1.32-3.29 = 731-0) MONO x10^3 (test code 0.45 10*3/uL 0.33-0.92 = 742-7) EOS x10^3 (test code = 0.41 10*3/uL 0.03-0.39 H 711-2) BASO x10^3 (test code 0.01-0.07 = 704-7) Lab Interpretation Abnormal (test code = 30186-0) [facility] MOLECULAR [id number] 16:02:31 Test Item Value Reference Range Interpretation Comments POCT Molecular FluA (test code = Negative Negative 33092-6) POCT Molecular FluB (test code = Negative Negative 68599-6) Lab Interpretation (test code = Normal 16312-3) [facility] SARS-COV-2 ANTIGEN (BINAX NOW)2022-08-24 15:52:00 Test Item Value Reference Range Interpretation Comments POCT SARS-COV-2 ANTIGEN (test Not Detected Not Detected code = 44352-0) On board controls acceptable Yes with C Line (test code = 3574) Lab Interpretation (test code = Normal 79597-0) [facility] METABOLIC PANEL (51707)2021-06-29 23:10:56 Test Item Value Reference Range Interpretation Comments NA (test code = 137 mmol/L 135-145 5269751467) K (test code = 3.9 mmol/L 3.5-5.0 3941014904) CL (test code = 102 mmol/L 98-108 6993595308) CO2 TOTAL (test code = 27 mmol/L 23-31 7763093391) AGAP (test code = 2-16 2977360262) BUN (test code = 10 mg/dL 7-23 5295092810) GLUCOSE (test code = 137 mg/dL 70-110 H 3636155879) CREATININE (test code = 0.69 mg/dL 0.50-1.04 4596601619) TOTAL BILI (test code = 0.5 mg/dL 0.1-1.4 6476006681) CALCIUM (test code = 9.2 mg/dL 8.6-10.6 4075069821) T PROTEIN (test code = 7.7 g/dL 6.3-8.2 2974065343) ALBUMIN (test code = 4.9 g/dL 3.5-5.0 8674946265) ALK PHOS (test code = 73 U/L 34-122 3374117558) ALTv (test code = 15 U/L 5-35 1742-6) AST(SGOT) (test code = 21 U/L 13-40 0004932089) eGFR (test code = mL/min/1.73m2 5569794862) MADISYN (test code = MADISYN) Association of [...] tests). Lab Interpretation Abnormal (test code = 86512-2) [facility] [id number] 22:59:27 Test Item Value Reference Interpretation Comments Range TROPONIN I (test 0.001 ng/mL See_Comment [Automated code = 5241649321) message] The system which generated this result [...] biotin. Lab Interpretation Normal (test code = 49684-5) [facility] 22:49:29 Test Item Value Reference Range Interpretation Comments LIPASE (test code = 4831904041) 57 U/L 0-220 Lab Interpretation (test code = Normal 83924-2) [facility] [id number] 22:29:28 Test Item Value Reference Range Interpretation [...] RDW-SD (test code = 43.4 fL 39.0-49.9 87790-6) RDW-CV (test code = 12.7 % 12.0-15.5 788-0) PLT (test code = See_Comment [Automated 277-3) message] The sy stem which generated this result transmitted reference range : 166 - 358 10*3/ ?L. The reference r aiden was not used to interpret this result as normal/abnormal . MPV (test code = 10.7 fL 9.5-12.9 66826-2) NRBC/100 WBC (test See_Comment [Automat ed code = 0949776190) message] The system which generated this result transmitted reference range : 0.0 - 10.0 /100 WBCs. The refer ence range was not u sed to interpret th is result as normal/abnormal . NRBC x10^3 (test code <0.01 See_Comment [Auto mated = 8186586440) message] The s ystem which generated this result transmitted reference range : 10*3/?L. The reference range was not used to interpret this result as normal/abnormal . GRAN MAT (NEUT) % 68.6 % (test code = 770-8) IMM GRAN % (test code 0.40 % = 8201732696) LYMPH % (test code = 22.9 % 736-9) MONO % (test code = 6.3 % 5905-5) EOS % (test code = 1.6 % 713-8) BASO % (test code = 0.2 % 706-2) GRAN MAT x10^3(ANC) 6.89 10*3/uL 1.88-7.09 (test code = 4143384320) IMM GRAN x10^3 (test 0.04 10*3/uL 0.00-0.06 code = 0658020821) LYMPH x10^3 (test code 2.30 10*3/uL 1.32-3.29 = 731-0) MONO x10^3 (test code 0.63 10*3/uL 0.33-0.92 = 742-7) EOS x10^3 (test code = 0.16 10*3/uL 0.03-0.39 711-2) BASO x10^3 (test code <0.03 0.01-0.07 = 704-7) Lab Interpretation Abnormal (test code = 90033-7) [facility])2021-05-20 17:33:00 Test Item Value Reference Range Interpretation Comments POCT GLU (test code = 1991518422) 80 mg/dL 70-110 Lab Interpretation (test code = Normal 77753-5) [facility] [id number] 12:36:17 Test Item Value Reference Interpretation Comments Range TROPONIN I (test 0.002 ng/mL See_Comment [Automated code = 7323349761) message] The system which generated this result [...] biotin. Lab Interpretation Normal (test code = 84054-4) [facility] Metabolic Panel (NA, K, CL, CO2, GLUCOSE, BUN, CREATININE, CA)2021-05-20 12:31:20 Test Item Value Reference Range Interpretation Comments NA (test code = 138 mmol/L 135-145 6429682226) K (test code = 4.2 mmol/L 3.5-5.0 7853566830) CL (test code = 106 mmol/L 98-108 7198529624) CO2 TOTAL (test code = 25 mmol/L 23-31 6396155362) AGAP (test code = 2-16 4105867448) BUN (test code = 12 mg/dL 7-23 5080326377) GLUCOSE (test code = 146 mg/dL 70-110 H 9372922215) CREATININE (test code = 0.62 mg/dL 0.50-1.04 2429415769) CALCIUM (test code = 10.0 mg/dL 8.6-10.6 2270009347) eGFR (test code = mL/min/1.73m2 0198592323) MADISYN (test code = MADISYN) Association of [...] tests). Lab Interpretation Abnormal (test code = 19373-3) [facility] with [id number] 11:49:32 Test Item Value Reference Range Interpretation Comments WBC (test code = See_Comment [Automated 5298-2) message] The sy stem which generated this result transmitted reference range : 4.30 - 11.10 10*3/?L. The reference range was not used to interpret this result as normal/abnormal . RBC (test code = See_Comment L [Automated 697-8) message] The sy stem which generated this [...] RDW-SD (test code = 40.3 fL 39.0-49.9 93393-5) RDW-CV (test code = 11.9 % 12.0-15.5 L 788-0) PLT (test code = See_Comment [Automated 777-3) message] The sy stem which generated this result transmitted reference range : 166 - 358 10*3/ ?L. The reference r aiden was not used to interpret this result as normal/abnormal . MPV (test code = 11.3 fL 9.5-12.9 15061-2) NRBC/100 WBC (test See_Comment [Automat ed code = 6257212819) message] The system which generated this result transmitted reference range : 0.0 - 10.0 /100 WBCs. The refer ence range was not u sed to interpret th is result as normal/abnormal . NRBC x10^3 (test code <0.01 See_Comment [Auto mated = 3577067966) message] The s ystem which generated this result transmitted reference range : 10*3/?L. The reference range was not used to interpret this result as normal/abnormal . GRAN MAT (NEUT) % 59.9 % (test code = 770-8) IMM GRAN % (test code 0.50 % = 0876569983) LYMPH % (test code = 30.0 % 736-9) MONO % (test code = 6.4 % 5905-5) EOS % (test code = 2.9 % 713-8) BASO % (test code = 0.3 % 706-2) GRAN MAT x10^3(ANC) 3.72 10*3/uL 1.88-7.09 (test code = 7944966436) IMM GRAN x10^3 (test 0.03 10*3/uL 0.00-0.06 code = 2085385800) LYMPH x10^3 (test code 1.86 10*3/uL 1.32-3.29 = 731-0) MONO x10^3 (test code 0.40 10*3/uL 0.33-0.92 = 742-7) EOS x10^3 (test code = 0.18 10*3/uL 0.03-0.39 711-2) BASO x10^3 (test code <0.03 0.01-0.07 = 704-7) Lab Interpretation Abnormal (test code = 92624-9) [facility] [id number] 02:24:28 Test Item Value Reference Interpretation Comments Range TROPONIN I (test 0.003 ng/mL See_Comment [Automated code = [id number]) message] The system which generated this result [...] biotin. Lab Interpretation Normal (test code = 34833-4) [facility] Test Item Value Reference Range Interpretation Comments MAGNESIUM (test code = [id number]) 1.9 mg/dL 1.7-2.4 Lab Interpretation (test code = Normal 61581-0) [facility] [id number] 00:20:03 Test Item Value Reference Interpretation Comments Range TROPONIN I (test 0.002 ng/mL See_Comment [Automated code = [id number]) message] The system which generated this result [...] biotin. Lab Interpretation Normal (test code = 96741-1) [facility]. METABOLIC PANEL (64065)2021-05-20 00:09:00 Test Item Value Reference Range Interpretation Comments NA (test code = 139 mmol/L 135-145 7649857988) K (test code = 3.9 mmol/L 3.5-5.0 6801292482) CL (test code = 101 mmol/L 98-108 0041063631) CO2 TOTAL (test code = 28 mmol/L 23-31 1392886851) AGAP (test code = 2-16 4262751943) BUN (test code = 13 mg/dL 7-23 6633358312) GLUCOSE (test code = 143 mg/dL 70-110 H 1639120919) CREATININE (test code = 0.68 mg/dL 0.50-1.04 0031066279) TOTAL BILI (test code = 0.4 mg/dL 0.1-1.6 9171328546) CALCIUM (test code = 10.4 mg/dL 8.6-10.6 0539744360) T PROTEIN (test code = 8.0 g/dL 6.3-8.2 1049670758) ALBUMIN (test code = 5.0 g/dL 3.5-5.0 5014115534) ALK PHOS (test code = 93 U/L 34-122 8638228873) ALTv (test code = 21 U/L 5-35 1742-6) AST(SGOT) (test code = 31 U/L 13-40 8686451802) eGFR (test code = mL/min/1.73m2 7115335935) MADISYN (test code = MADISYN) Association of [...] tests). Lab Interpretation Abnormal (test code = 69865-4) [facility] Test Item Value Reference Range Interpretation Comments LIPASE (test code = 2979144497) 66 U/L 0-220 Lab Interpretation (test code = Normal 34284-5) [facility]aPTT2021-[facility] 00:06:19 Test Item Value Reference Range [...] seconds. Lab Interpretation Normal (test code = 83403-8) [facility] HospitalPROTHROMBIN TIME / [id number] 00:04:19 Test Item Value Reference Range Interpretation [...] tions. Lab Interpretation (test Normal code = 92963-1) [facility] WITH [id number] 23:55:39 Test Item Value Reference Range Interpretation Comments WBC (test code = See_Comment [Automated 1990-2) message] The sy stem which generated this [...] RDW-SD (test code = 40.4 fL 39.0-49.9 04241-6) RDW-CV (test code = 11.9 % 12.0-15.5 L 788-0) PLT (test code = See_Comment [Automated 777-3) message] The sy stem which generated this result transmitted reference range : 166 - 358 10*3/ ?L. The reference r aiden was not used to interpret this result as normal/abnormal . MPV (test code = 11.0 fL 9.5-12.9 32925-6) NRBC/100 WBC (test See_Comment [Automat ed code = 6428418824) message] The system which generated this result transmitted reference range : 0.0 - 10.0 /100 WBCs. The refer ence range was not u sed to interpret th is result as normal/abnormal . NRBC x10^3 (test code <0.01 See_Comment [Auto mated = 8842080422) message] The s ystem which generated this result transmitted reference range : 10*3/?L. The reference range was not used to interpret this result as normal/abnormal . GRAN MAT (NEUT) % 53.4 % (test code = 770-8) IMM GRAN % (test code 0.60 % = 6161664467) LYMPH % (test code = 36.2 % 736-9) MONO % (test code = 6.4 % 5905-5) EOS % (test code = 3.3 % 713-8) BASO % (test code = 0.1 % 706-2) GRAN MAT x10^3(ANC) 3.58 10*3/uL 1.88-7.09 (test code = 9454175404) IMM GRAN x10^3 (test 0.04 10*3/uL 0.00-0.06 code = 9259461990) LYMPH x10^3 (test code 2.43 10*3/uL 1.32-3.29 = 731-0) MONO x10^3 (test code 0.43 10*3/uL 0.33-0.92 = 742-7) EOS x10^3 (test code = 0.22 10*3/uL 0.03-0.39 711-2) BASO x10^3 (test code <0.03 0.01-0.07 = 704-7) Lab Interpretation Abnormal (test code = 01361-7) [facility]inalysis2021-[facility] 03:27:11 Test Item Value Reference Range Interpretation Comments APPEARANCE (test code = Clear Clear 5074732872) COLOR (test code = Straw Yellow A 4015182331) PH (test code = 4.8-8.0 0106654316) SP GRAVITY (test code = 1.003-1.030 0934242256) GLU U QUAL (test code = 500 mg/dL Normal A 6884231032) BLOOD (test code = Negative Negative 4913579406) KETONES (test code = Negative Negative 2699288658) PROTEIN (test code = Negative Negative 2887-8) UROBILIN (test code = Normal Normal 9050904949) BILIRUBIN (test code = Negative Negative 9628285668) NITRITE (test code = Negative Negative 2087133974) LEUK KEVEN (test code = 25/uL Negative A 4317652550) RBC/HPF (test code = See_Comment [Autom ated message] 1850866602) The system Ancestry generated this result transmit zolia reference range : 0 - 3 HPF. The refe rence range was not u sed to interpret th is result as normal/abnormal . WBC/HPF (test code = See_Comment [Autom ated message] 6098349920) The system Ancestry generated this result transmit zoila reference range : 0 - 5 HPF. The refe rence range was not u sed to interpret th is result as normal/abnormal . BACTERIA (test code = Negative Negative 9649785530) MUCOUS (test code = Slight Negative LPF A 4364065595) SQ EPITH (test code = HPF 5175159614) Lab Interpretation (test Abnormal code = 10092-7) [facility] [id number] 03:00:28 Test Item Value Reference Range Interpretation Comments TROPONIN I (test <0.012 See_Comment [Automated code = 0926478907) message] The system which generated this result [...] ? Lab Interpretation Normal (test code = 30573-0) [facility] HospitalN-TERMINAL [id number] 02:57:10 Test Item Value Reference Range Interpretation Comments NT-proBNP (test code 25 pg/mL See_Comment [Autom ated = 0115807883) message] The system which generated this result transmitted reference range : <=125. The reference range was not used to interpret this result as normal/abnormal . MADISYN (test code = MADISYN) Biotin has been reported to cause a negative bias, interpret results relative to patient's use of biotin. Lab Interpretation Normal (test code = 82841-9) [facility] HospitalBasi Metabolic Panel (NA, K, CL, CO2, GLUCOSE, BUN, CREATININE, CA)2020-09-14 02:48:49 Test Item Value Reference Range Interpretation Comments NA (test code = 135 mmol/L 135-145 2462048933) K (test code = 3.6 mmol/L 3.5-5.0 7733343095) CL (test code = 101 mmol/L 98-108 1586728007) CO2 TOTAL (test code = 23 mmol/L 23-31 1289360022) AGAP (test code = 2-16 7278695266) BUN (test code = 10 mg/dL 7-23 0014841107) GLUCOSE (test code = 296 mg/dL 70-110 H 3250282113) CREATININE (test code = 0.62 mg/dL 0.50-1.04 1682843078) CALCIUM (test code = 9.7 mg/dL 8.6-10.6 4715281200) eGFR Calculation mL/min/1.73m2 (Non-) (test code = 5373880157) eGFR Calculation mL/min/1.73m2 () (test code = 5504584761) MADISYN (test code = MADISYN) Association of [...] tests). Lab Interpretation Abnormal (test code = 31787-2) [facility] HospitalHepatic Function Panel (ALB, T.PRO, BILI T, BU/BC, ALT, AST, ALK PHOS)2020-09-14 02:48:48 Test Item Value Reference Range Interpretation Comments TOTAL BILI (test code = 2554018665) 0.4 mg/dL 0.1-1.1 BILI UNCON (test code = 8496188245) 0.4 mg/dL 0.1-1.1 BILI CONJ (test code = 5873022985) 0.0 mg/dL 0.0-0.3 T PROTEIN (test code = 8806133051) 7.7 g/dL 6.3-8.2 ALBUMIN (test code = 5587826333) 5.0 g/dL 3.5-5.0 ALK PHOS (test code = 3000783692) 78 U/L 34-122 ALTv (test code = 1742-6) 19 U/L 5-35 AST(SGOT) (test code = 1130585468) 25 U/L 13-40 Lab Interpretation (test code = Normal 23613-2) [facility] HospitalLipase [id number] 02:48:48 Test Item Value Reference Range Interpretation Comments LIPASE (test code = 1341947740) 38 U/L 0-220 Lab Interpretation (test code = Normal 29913-2) [facility] HospitalCOVID-19 (ID NOW RAPID TESTING)2020-09-14 02:36:29 Test Item Value Reference Range Interpretation Comments SARS-CoV-2 Rapid ID NOW Positive Not Detected A (test code = 53966-6) MADISYN (test code = MADISYN) ID NOW COVID-19 Assay is an isothermal nucleic acid amplification test intended for the qualitative detection of nucleic acid from SARS-CoV-2 viral RNA in nasopharyngeal ([employer]) specimens. It is used under Emergency Use [...] indicated. Lab Interpretation Abnormal (test code = 48362-7) [facility] HospitalCBC with [id number] 02:30:06 Test Item Value Reference Range Interpretation Comments WBC (test code = See_Comment [Automated message] 6690-2) The system Ancestry generated this result transmitted ref erence range: 4.30 - 1 1.10 10*3/?L. The re ference range was not u sed to interpret this result as normal/abnor mal. RBC (test code = See_Comment [Automated message] 789-8) The system [employer] generated this result transmitted ref erence range: [...] RDW-SD (test code 41.8 fL 39.0-49.9 = 63309-9) RDW-CV (test code 12.8 % 12.0-15.5 = 788-0) PLT (test code = See_Comment [Automated message] 777-3) The system whic h generated this result transmitted ref erence range: 166 - 35 8 10*3/?L. The re ference range was not u sed to interpret this result as normal/abnor mal. MPV (test code = 11.2 fL 9.5-12.9 54953-1) NRBC/100 WBC (test See_Comment [Automat ed message] code = 8600710125) The syste m which generated this result transmitted ref erence range: 0.0 - 10 .0 /100 WBCs. The refer ence range was not u sed to interpret this result as normal/abnor mal. NRBC x10^3 (test <0.01 See_Comment [Automated message] code = 3537405222) The syste m which generated this result transmitted ref erence range: 10*3/?L. The reference range was not used to interpr et this result as normal/abnormal . GRAN MAT (NEUT) % 54.0 % (test code = 770-8) IMM GRAN % (test 0.70 % code = 0454104943) LYMPH % (test code 36.2 % = 736-9) MONO % (test code 6.0 % = 5905-5) EOS % (test code = 2.8 % 713-8) BASO % (test code 0.3 % = 706-2) GRAN MAT 3.13 10*3/uL 1.88-7.09 x10^3(ANC) (test code = 6621539143) IMM GRAN x10^3 0.04 10*3/uL 0.00-0.06 (test code = 6723152204) LYMPH x10^3 (test 2.10 10*3/uL 1.32-3.29 code = 731-0) MONO x10^3 (test 0.35 10*3/uL 0.33-0.92 code = 742-7) EOS x10^3 (test 0.16 10*3/uL 0.03-0.39 code = 711-2) BASO x10^3 (test <0.03 0.01-0.07 code = 704-7) [facility] WITH [id number] 01:35:00 Test Item Value Reference Range Interpretation Comments WBC (test code = See_Comment [Automated 2159-2) message] The sy stem which generated this result transmitted reference range : 4.30 - 11.10 10*3/?L. The reference range was not used to interpret this result as normal/abnormal . RBC (test code = See_Comment [Automated 699-8) message] The sy stem which generated this [...] RDW-SD (test code = 40.8 fL 39-49.9 18248-4) RDW-CV (test code = 12.5 % 12-15.5 788-0) PLT (test code = See_Comment [Automated 777-3) message] The sy stem which generated this result transmitted reference range : 166 - 358 10*3/ ?L. The reference r aiden was not used to interpret this result as normal/abnormal . MPV (test code = 11.0 fL 9.5-12.9 65236-9) IPF % (test code = 5.7 % 1.3-7.7 Platelet count 6745562738) measured by fluorescence method. NRBC/100 WBC (test See_Comment [Automat ed code = 1659151560) message] The system which generated this result transmitted reference range : 0.0 - 10.0 /100 WBCs. The refer ence range was not u sed to interpret th is result as normal/abnormal . NRBC x10^3 (test code <0.01 See_Comment [Auto mated = 7532300385) message] The s ystem which generated this result transmitted reference range : 10*3/?L. The reference range was not used to interpret this result as normal/abnormal . GRAN MAT (NEUT) % 60.2 % (test code = 770-8) IMM GRAN % (test code 1.60 % = 8067481993) LYMPH % (test code = 29.4 % 736-9) MONO % (test code = 6.2 % 5905-5) EOS % (test code = 2.3 % 713-8) BASO % (test code = 0.3 % 706-2) GRAN MAT x10^3(ANC) 5.31 10*3/uL 1.88-7.09 (test code = 2577371622) IMM GRAN x10^3 (test 0.14 10*3/uL 0-0.06 H code = 6847663446) LYMPH x10^3 (test code 2.59 10*3/uL 1.32-3.29 = 731-0) MONO x10^3 (test code 0.55 10*3/uL 0.33-0.92 = 742-7) EOS x10^3 (test code = 0.20 10*3/uL 0.03-0.39 711-2) BASO x10^3 (test code 0.03 10*3/uL 0.01-0.07 = 704-7) Lab Interpretation Abnormal (test code = 66148-5) [facility] HospitalAD,CLC OR LCC ONLY - INFLUENZA A & B DIRECT [id number] 01:26:00 Test Item Value Reference Range Interpretation Comments Influenza A (test code = 13337-4) Negative Negative Influenza B (test code = 81885-4) Negative Negative Lab Interpretation (test code = Normal 98698-2) [facility] Metabolic Panel (NA, K, CL, CO2, GLUCOSE, BUN, CREATININE, CA)2019-07-28 01:21:00 Test Item Value Reference Range Interpretation Comments NA (test code = 137 mmol/L 135-145 7179410313) K (test code = 3.8 mmol/L 3.5-5 2766958779) CL (test code = 100 mmol/L 98-108 9065467098) CO2 TOTAL (test code = 24 mmol/L 23-31 0007368665) AGAP (test code = 2-16 0170408919) BUN (test code = 13 mg/dL 7-23 0289332930) GLUCOSE (test code = 245 mg/dL 70-110 H 2489507496) CREATININE (test code = 0.49 mg/dL 0.5-1.04 L 0338180005) CALCIUM (test code = 9.8 mg/dL 8.6-10.6 1082286657) eGFR Calculation mL/min/1.73m2 (Non-) (test code = 0018629861) eGFR Calculation mL/min/1.73m2 () (test code = 2539585741) MADISYN (test code = MADISYN) Association of [...] tests). Lab Interpretation Abnormal (test code = 81878-3) [facility] HospitalHepatic Function Panel (ALB, T.PRO, BILI T, BU/BC, ALT, AST, ALK PHOS)2019-07-28 01:21:00 Test Item Value Reference Range Interpretation Comments TOTAL BILI (test code = 6362065978) 0.3 mg/dL 0.1-1.1 BILI UNCON (test code = 7985170609) 0.1 mg/dL 0.1-1.1 BILI CONJ (test code = 9898960820) 0.0 mg/dL 0-0.3 T PROTEIN (test code = 8932311706) 8.2 g/dL 6.3-8.2 ALBUMIN (test code = 3938496479) 5.0 g/dL 3.5-5 ALK PHOS (test code = 0242943385) 121 U/L 34-122 ALTv (test code = 1742-6) 33 U/L 5-35 AST(SGOT) (test code = 1626381101) 30 U/L 13-40 Lab Interpretation (test code = Normal 81133-3) [facility] HospitalRAPID STREP SCREEN FOR GROUP [id number] 01:19:00 Test Item Value Reference Range Interpretation Comments Streptococcus pyogenes (group A) Negative Negative antigen (test code = 69610-9) Lab Interpretation (test code = Normal 77575-8) [facility] HospitalXR CHEST 2 [id number] 00:53:20Impression: No acute cardiopulmonary changes. Small sized [...] unremarkable. Smallsized hiatal hernia is present. [facility], Radiant Results Inft User - 07/27/2019 6:54 [...] reviewed this study and agree withthe above report.[facility] (NA, K, CL, CO2, GLUCOSE, BUN, CREATININE, CA)2019-03-11 20:52:00 Test Item Value Reference Range Interpretation Comments NA (test code = 141 mmol/L 135-145 7090877585) K (test code = 3.6 mmol/L 3.5-5 1946993948) CL (test code = 104 mmol/L 98-108 2327658980) CO2 TOTAL (test code = 24 mmol/L 23-31 3944970494) AGAP (test code = 2-16 8416500392) BUN (test code = 19 mg/dL 7-23 9701700072) GLUCOSE (test code = 161 mg/dL 70-110 H 0792377051) CREATININE (test code = 0.51 mg/dL 0.5-1.04 2486845287) CALCIUM (test code = 9.4 mg/dL 8.6-10.6 6318665204) eGFR Calculation mL/min/1.73m2 (Non-) (test code = 4118368781) eGFR Calculation mL/min/1.73m2 () (test code = 1514840894) MADISYN (test code = MADISYN) Association of [...] tests). Lab Interpretation Abnormal (test code = 69959-4) [facility] HospitalHepatic Function Panel (ALB, T.PRO, BILI T, BU/BC, ALT, AST, ALK PHOS)2019-03-11 20:52:00 Test Item Value Reference Range Interpretation Comments TOTAL BILI (test code = 9919991748) 0.6 mg/dL 0.1-1.1 BILI UNCON (test code = 8510996996) 0.5 mg/dL 0.1-1.1 BILI CONJ (test code = 8803671206) 0.0 mg/dL 0-0.3 T PROTEIN (test code = 9771376046) 7.7 g/dL 6.3-8.2 ALBUMIN (test code = 8342101822) 4.9 g/dL 3.5-5 ALK PHOS (test code = 9903047348) 61 U/L 34-122 ALT(SGPT) (test code = 0305039942) 26 U/L 9-51 AST(SGOT) (test code = 7417618755) 28 U/L 13-40 Lab Interpretation (test code = Normal 21948-5) [facility] HospitalLipase [id number] 20:52:00 Test Item Value Reference Range Interpretation Comments LIPASE (test code = 3154485287) 22 U/L 0-220 Lab Interpretation (test code = Normal 06528-0) [facility] HospitalaPTT2019-09-05 20:40:00 Test Item Value Reference Range [...] seconds. Lab Interpretation Abnormal (test code = 91860-0) [facility] HospitalProthrombin Time (PT) / [id number] 20:38:00 Test Item Value Reference Range Interpretation [...] tions. Lab Interpretation (test Normal code = 32146-0) [facility] HospitalCBC WITH [id number] 20:33:00 Test Item Value Reference Range Interpretation Comments WBC (test code = See_Comment [Automated 8790-2) message] The sy stem which generated this result transmitted reference range : 4.30 - 11.10 10*3/?L. The reference range was not used to interpret this result as normal/abnormal . RBC (test code = See_Comment [Automated 979-8) message] The sy stem which generated this [...] RDW-SD (test code = 44.3 fL 39-49.9 05091-3) RDW-CV (test code = 12.9 % 12-15.5 788-0) PLT (test code = See_Comment [Automated 777-3) message] The sy stem which generated this result transmitted reference range : 166 - 358 10*3/ ?L. The reference r aiden was not used to interpret this result as normal/abnormal . MPV (test code = 10.9 fL 9.5-12.9 33283-8) NRBC/100 WBC (test See_Comment [Automat ed code = 9740381132) message] The system which generated this result transmitted reference range : 0.0 - 10.0 /100 WBCs. The refer ence range was not u sed to interpret th is result as normal/abnormal . NRBC x10^3 (test code <0.01 See_Comment [Auto mated = 9158317473) message] The s ystem which generated this result transmitted reference range : 10*3/?L. The reference range was not used to interpret this result as normal/abnormal . GRAN MAT (NEUT) % 86.3 % (test code = 770-8) IMM GRAN % (test code 0.50 % = 9634088413) LYMPH % (test code = 8.8 % 736-9) MONO % (test code = 4.0 % 5905-5) EOS % (test code = 0.2 % 713-8) BASO % (test code = 0.2 % 706-2) GRAN MAT x10^3(ANC) 8.24 10*3/uL 1.88-7.09 H (test code = 2879717493) IMM GRAN x10^3 (test 0.05 10*3/uL 0-0.06 code = 2763915745) LYMPH x10^3 (test code 0.84 10*3/uL 1.32-3.29 L = 731-0) MONO x10^3 (test code 0.38 10*3/uL 0.33-0.92 = 742-7) EOS x10^3 (test code = <0.03 0.03-0.39 L 711-2) BASO x10^3 (test code <0.03 0.01-0.07 = 704-7) Lab Interpretation Abnormal (test code = 66865-7) [facility]"
[2023-04-24] MEDS ORDERED: HYDROCODONE/APAP 5/325 MG TAB ONE (15:59)
--- NOTE | 2023-04-24 16:58 | RAD REPORT ---
EXAM DESCRIPTION: RAD - Foot Left 3 View - 04/24/2023 4:09 pm CLINICAL HISTORY: PAIN COMPARISON: Foot Left 3 View dated 12/28/2022; Foot Left 3 View dated 03/30/2017 TECHNIQUE: Left foot, 3 views. FINDINGS: No fracture, dislocation or periosteal reaction. No air or foreign body in the soft tissues. IMPRESSION: Negative left foot radiographs.
--- NOTE | 2023-04-24 17:01 | ER ---
Nurse's Notes [facility] Name: Dolores Pérez Age: 62 yrs Sex: Female : 1960 Arrival Date: 04/24/2023 Time: 15:20 Bed 11 Private MD: Diagnosis: Planter fasciitis of the left foot Presentation: 04/24 15:33 Chief complaint: Patient states: "I have plantar fascitis on my left foot, and it hurts rs5 a lot today ". Coronavirus screen: At this time, the client does not indicate any symptoms associated with coronavirus-19. Ebola Screen: No symptoms or risks identified at this time. Risk Assessment: Do you want to hurt yourself or someone else? Patient reports no desire to harm self or others. Onset of symptoms was April 24, 2023. 15:33 Method Of Arrival: Wheelchair rs5 15:33 Acuity: AARON 4 rs5 17:16 Initial Sepsis Screen: Does the patient meet any 2 criteria? No. Patient's initial ap3 sepsis screen is negative. Does the patient have a suspected source of infection? No. Patient's initial sepsis screen is negative. Triage Assessment: 17:15 General: Appears in no apparent distress. Behavior is calm, cooperative, appropriate ap3 for age. Pain: Complains of pain in left foot. Cardiovascular: Patient's skin is warm and dry. Respiratory: Airway is patent Respiratory effort is even, unlabored, Respiratory pattern is regular, symmetrical. Historical: - Allergies: 15:35 Prednisone; rs5 15:35 sesame seed; rs5 15:35 Sulfa (Sulfonamide Antibiotics); rs5 15:35 peanuts; rs5 15:35 NSAIDS; rs5 - PMHx: 15:35 Hypothyroidism; Hypertension; High Cholesterol; diabetes mellitus; rs5 - Immunization history:: Adult Immunizations unknown. - Social history:: Smoking status: Patient denies any tobacco usage or history of. Screenin:15 [facility] ED Fall Risk Assessment (Adult) History of falling in the last 3 months, ap3 including since admission No falls in past 3 months (0 pts). Abuse screen: Denies threats or abuse. Nutritional screening: No deficits noted. Tuberculosis screening: No symptoms or risk factors identified. Assessment: 15:45 General: Appears in no apparent distress. comfortable, Behavior is calm, cooperative. rs5 15:45 Pain: Complains of pain in left foot. Neuro: Level of Consciousness is awake, alert, rs5 obeys commands, Oriented to person, place, time. Cardiovascular: Heart tones S1 S2 present Patient's skin is warm and dry. Rhythm is regular. Respiratory: Airway is patent Respiratory effort is even, unlabored, Respiratory pattern is regular, symmetrical, Breath sounds are clear bilaterally. GI: Abdomen is round non-distended, Bowel sounds present X 4 quads. Abd is soft and non tender X 4 quads. : No signs and/or symptoms were reported regarding the genitourinary system. EENT: No signs and/or symptoms were reported regarding the EENT system. Derm: Skin is intact, Skin is pink, warm \\T\\ dry. Musculoskeletal: Range of motion: intact in all extremities. Vital Signs: 15:43 Weight 58.06 kg; Height 5 ft. 7 in. ; kj1 17:16 BP 145 / 76; Pulse 76; Resp 17; Pulse Ox 100% ; ap3 15:43 Body Mass Index 20.05 (58.06 kg, 170.18 cm) kj1 ED Course: 15:23 Patient arrived in ED. im 15:26 Minnie Edwards, COLEMAN [facility] jh7 15:26 Crystal Levy MD is Attending Physician. jh7 15:35 Triage completed. rs5 16:04 Rosales Parekh, RN is Primary Nurse. rs5 16:10 XRAY Foot LEFT 3 View In Process Unspecified. EDMS 17:15 Arm band placed on right wrist. ap3 17:15 Patient has correct armband on for positive identification. Provided Education on: ap3 discharge instructions. Pulse ox on. NIBP on. 17:15 No provider procedures requiring assistance completed. Patient did not have IV access ap3 during this emergency room visit. Administered Medications: 15:37 Drug: HYDROcodone-acetaminophen PO 5 mg-325 mg 1 tabs PO once Route: PO; rs5 17:16 Follow up: Response: No adverse reaction ap3 Medication: 17:16 VIS not applicable for this client. ap3 Outcome: 17:00 Discharge ordered by . jh7 17:16 Discharged to home ambulatory, ap3 17:16 Condition: good 17:16 Discharge instructions given to patient, Instructed on discharge instructions, follow up and referral plans. Demonstrated understanding of instructions, follow-up care, 17:17 Patient left the ED. ap3 Signatures: Dispatcher [employer] Donna Mendez RN RN ap3 Renuka Chavez kj1 Minnie Edwards, TOOLROOM CLERK TOOLROOM CLERK jh7 Rosales Parekh RN RN rs5 Jenn Brady
--- NOTE | 2023-04-24 17:01 | EDPHYS ---
Physician Documentation [facility] Name: Dolores Pérez Age: 62 yrs Sex: Female : 1960 Arrival Date: 04/24/2023 Time: 15:20 Bed 11 Private MD: ED Physician Crystal Levy HPI: 04/24 15:35 This 62 yrs old Female presents to ER via Wheelchair with complaints of Foot Pain. jh7 15:35 The patient presents with pain, that is acute. The complaints affect the Plantar jh7 surface of left foot. 16:57 Patient reports that she has left plantar fasciitis pain and is requesting an x-ray. jh7 Stated that she may have stepped on something because her pain is not where it usually is. No known injury.. Historical: - Allergies: 15:35 Prednisone; rs5 15:35 sesame seed; rs5 15:35 Sulfa (Sulfonamide Antibiotics); rs5 15:35 peanuts; rs5 15:35 NSAIDS; rs5 - PMHx: 15:35 Hypothyroidism; Hypertension; High Cholesterol; diabetes mellitus; rs5 - Immunization history:: Adult Immunizations unknown. - Social history:: Smoking status: Patient denies any tobacco usage or history of. ROS: 16:57 Constitutional: Negative for fever, chills, and weight loss, Eyes: Negative for injury, jh7 pain, redness, and discharge, Cardiovascular: Negative for chest pain, palpitations, and edema, Respiratory: Negative for shortness of breath, cough, wheezing, and pleuritic chest pain, Back: Negative for injury and pain, Skin: Negative for injury, rash, and discoloration, Neuro: Negative for headache, weakness, numbness, tingling, and seizure, 16:57 MS/extremity: Positive for pain, of the left foot, Negative for injury or acute deformity, 16:57 All other systems are negative, Exam: 16:57 Constitutional: This is a well developed, well nourished patient who is awake, alert, jh7 and in no acute distress. Cardiovascular: Regular rate and rhythm with a normal S1 and S2. No gallops, murmurs, or rubs. Normal PMI, no JVD. No pulse deficits. Respiratory: Lungs have equal breath sounds bilaterally, clear to auscultation and percussion. No rales, rhonchi or wheezes noted. No increased work of breathing, no retractions or nasal flaring. Skin: Warm, dry with normal turgor. Normal color with no rashes, no lesions, and no evidence of cellulitis. Neuro: Awake and alert, GCS 15, oriented to person, place, time, and situation. Motor strength 5/5 in all extremities. Sensory grossly intact. Normal gait. 16:57 Musculoskeletal/extremity: Extremities: noted in the plantar surface of L foot: ROM: full active range of motion, Circulation is intact in all extremities. Perfusion: the extremity is normally perfused throughout, pink, warm, with brisk capillary refill, Sensation intact. Vital Signs: 15:43 Weight 58.06 kg; Height 5 ft. 7 in. ; kj1 17:16 BP 145 / 76; Pulse 76; Resp 17; Pulse Ox 100% ; ap3 15:43 Body Mass Index 20.05 (58.06 kg, 170.18 cm) kj1 MDM: 15:26 Patient medically screened. [facility] 17:03 Differential diagnosis: tendonitis, Plantar fasciitis. Data reviewed: vital signs, [facility] nurses notes, radiologic studies, plain films. Care significantly affected by the following chronic conditions: Hypertension. Counseling: I had a detailed discussion with the patient and/or guardian regarding the historical points, exam findings, and any diagnostic results supporting the discharge/admit diagnosis, to return to the emergency department if symptoms worsen or persist or if there are any questions or concerns that arise at home. 04/24 15:33 Order name: XRAY Foot LEFT 3 View; Complete Time: 16:59 [facility] Administered Medications: 15:37 Drug: HYDROcodone-acetaminophen PO 5 mg-325 mg 1 tabs PO once Route: PO; rs5 17:16 Follow up: Response: No adverse reaction ap3 Disposition Summary: 04/24/23 17:00 Discharge Ordered Notes: Location: Home [facility] Problem: chronic [facility] Symptoms: have worsened [facility] Condition: Stable [facility] Diagnosis - Planter fasciitis of the left foot [facility] Followup: [facility] - With: Private Physician - When: 2 - 3 days - Reason: Recheck today's complaints Discharge Instructions: - Discharge Summary Sheet [facility] - Plantar Fasciitis [facility] Forms: - Medication Reconciliation Form [facility] - Thank You Letter [facility] - Patient Portal Instructions jh7 - Leadership Thank You Letter [facility] Signatures: Minnie Hudson, [employer] TECHNICIAN jh7 Rosales Parekh RN RN rs5 Donna Lawrence RN ap3
[2023-04-24 17:34] VITALS: BP 145/76; O2SAT 100
== END 2023-04-24 17:17 | disposition home or self-care (01) ==
LOC: ER 15:20
DX: M72.2 Plantar fascial fibromatosis (principal)
CPT/HCPCS: 99283

== ENCOUNTER 2023-05-02 18:29 | Emergency (ER) | payer OTHER ==
--- OUTSIDE RECORDS SUMMARY | 2023-05-02 18:37 | XMS REPORT | Continuity of Care Document ---
:[address] [facility] t Address [address] [facility] [address] [place] [address] Care Team Providers Name Role Phone PAULINA DUNHAM Primary Care Physician Unavailable Neida DUGGAN Attending Clinician Unavailable Neida Jiménez Attending Clinician Susan Rodriguez Attending Clinician Unknown, Attending Attending Clinician Unavailable SUSAN LEE Attending Clinician Unavailable Doctor Unassigned, [place] Attending Clinician Unavailable Only, Ang Db Test Attending Clinician Unavailable Monik Charles MD Attending Clinician MONIK CHARLES Attending Clinician Unavailable ALEX OCONNELL Attending Clinician Unavailable SeymourAlex Alarcon Attending Clinician SHERRILL CONNOR Attending Clinician [...] Effective Date Expiration Date Teodora FALK II [id number] 2016 00:00:00 Problems Condition Condition Condition Status [...] ity of 00:00: [place] 00 Medical Branch [place] [employer] Active Anaphylaxis Uni vers ty to [...] to 4-10 ity of mide adverse 00:00: [place] Antibiot reaction 00 Medica l ics) s Branch Social History Social Habit Start Date Stop Date Quantity Comments Source Gender identity [facility] [place] [facility] of Social 2023-02-26 2023-02-26 Univers ity of function 00:00:00 00:00:00 [facility] Exposure to 2022-08-14 2022-08-24 Not sure [facility] SARS-CoV-2 (event) 00:00:00 09:35:00 [facility] Tobacco use and 2022-08-24 2022-08-24 Smokeless Universit y of exposure 00:00:00 00:00:00 tobacco non-user [facility] Sex Assigned At [birth year] Universit y of 00:00:00 00:00:00 [facility] Smoking Status Start Date Stop Date Source Never smoked tobacco [facility] Medications Ordered Filled Start Stop Current Ordering Indication Dosage Frequency Signature Comments Components Source Medication Medication Date Date Medication? Clinician (SIG) Name Name bromphenira Yes [id number] 5mL Take 5 mL Univers mine-pseudo 2-18 by mouth 4 it y of ephedrine-D 00:00[place] (four[place] (BROMFED 00 times Medical DM) 2-30-10 daily as Bran ch mg/5 mL needed for syrup Congestion /Allergies . bromphenira Yes [id number] 5mL Take 5 mL Univers mine-pseudo 2-18 by mouth 4 it y of ephedrine-D 00:00: (four[place] (BROMFED 00 times Medical DM) 2-30-10 daily as Bran ch mg/5 mL needed for syrup Congestion /Allergies . benzonatate Yes [id number] 100mg Take 1 Univers 100 mg 7-03 capsule by ity of capsule 00:00: mouth 3 [place] 00 (three) Medical times [place] daily as needed for Cough. loratadine Yes [id number] 10mg Take 1 U nivers (CLARITIN) 7-03 tablet by ity of 10 mg 00:00: mouth at [place] tablet 00 bedtime as Medical needed for Branch Allergies. benzonatate 2022-0 Yes [id number] 100mg Take 1 Univers 100 mg 7-03 capsule by ity of capsule 00:00: mouth 3 [place] 00 (three) Medical times Branch daily as needed for Cough. loratadine 2-0 Yes [id number] 10mg Take 1 U nivers (CLARITIN) 7-03 tablet by ity of 10 mg 00:00: mouth at [place] tablet 00 bedtime as Medical needed for Branch Allergies. benzonatate 2-0 Yes [id number] 100mg Take 1 Univers 100 mg 7-03 capsule by ity of capsule 00:00: mouth 3 [place] 00 (three) Medical times Branch daily as needed for Cough. loratadine 2-0 Yes [id number] 10mg Take 1 U nivers (CLARITIN) 7-03 tablet by ity of 10 mg 00:00: mouth at [place] tablet 00 bedtime as Medical needed for Branch Allergies. benzonatate 2-0 Yes [id number] 100mg Take 1 Univers 100 mg 7-03 capsule by ity of capsule 00:00: mouth 3 (three) Medical times Branch daily as needed for Cough. loratadine 2-0 Yes [id number] 10mg Take 1 U nivers (CLARITIN) 7-03 tablet by ity of 10 mg 00:00: mouth at [place] tablet 00 bedtime as Medical needed for Branch Allergies. benzonatate 2-0 Yes [id number] 100mg Take 1 Univers 100 mg 7-03 capsule by ity of capsule 00:00: mouth 3 00 (three) Medical times Branch daily as needed for Cough. loratadine 2-0 Yes [id number] 10mg Take 1 U nivers (CLARITIN) 7-03 tablet by ity of 10 mg 00:00: mouth at [place] tablet 00 bedtime as Medical needed for Branch Allergies. benzonatate 2022-0 Yes [id number] 100mg Take 1 Univers 100 mg 7-03 capsule by ity of capsule 00:00: mouth 3 [place] 00 (three) Medical times Branch daily as needed for Cough. loratadine 2022-0 Yes [id number] 10mg Take 1 U nivers (CLARITIN) 7-03 tablet by ity of 10 mg 00:00: mouth at [place] tablet 00 bedtime as Medical needed for Branch Allergies. benzonatate 2021-0 Yes [id number] 100mg Take 1 Univers 100 mg 2-01 capsule by ity of capsule 00:00: mouth 3 (three) Medical times Branch daily as needed for Cough. benzonatate 2021-0 Yes [id number] 100mg Take 1 Univers 100 mg 2-01 capsule by ity of capsule 00:00: mouth 3 (three) Medical times Branch daily as needed for Cough. benzonatate 2021-0 Yes [id number] 100mg Take 1 Univers 100 mg 2-01 capsule by ity of capsule 00:00: mouth (three) Medical times Branch daily as needed for Cough. benzonatate 2021-0 Yes [id number] 100mg Take 1 Univers 100 mg 2-01 capsule by ity of capsule 00:00: mouth (three) Medical times Branch daily as needed for Cough. benzonatate 2021-0 Yes [id number] 100mg Take 1 Univers 100 mg 2-01 capsule by ity of capsule 00:00: mouth (three) Medical times Branch daily as needed for Cough. benzonatate 2021-0 Yes [id number] 100mg Take 1 Univers 100 mg 2-01 capsule by ity of capsule 00:00: mouth (three) Medical times Branch daily as needed for Cough. benzonatate 2021-0 Yes [id number] 100mg Take 1 Univers 100 mg 2-01 capsule by ity of capsule 00:00: mouth (three) Medical times Branch daily as needed for Cough. benzonatate 2021-0 Yes [id number] 100mg Take 1 Univers 100 mg 2-01 capsule by ity of capsule 00:00: mouth (three) Medical times Branch daily as needed for Cough. benzonatate 2021-0 Yes [id number] 100mg Take 1 Univers 100 mg 2-01 capsule by ity of capsule 00:00: mouth (three) Medical times Branch daily as needed for Cough. benzonatate 2-0 Yes [id number] 100mg Take 1 Univers 100 mg 2-01 [...] Therapy: Other (see Comments) iopamidol 2020-07- No [id number] 120mL 120 mL, Univers (ISOVUE 2-25 12-24 Intravenou ity o f 370-500 mL) 00:15: 23:08 s, ONCE, 1 [place] injection 00 :00 dose, On Medica l 120 mL Fri Branch 06/29/21 at 1815, Routine amoxicillin 2020-07- No [id number] 1{tbl} Take 1 Univers -clavulanat 2-24 -04 [...] Indication s: acute pain ondansetron 2020-07- No [id number] 4mg Take 1 Univers 4 mg tablet 2-24 12-30 tablet by it y of 00:00: 05:59 mouth [place] 00 :00 every 8 Medical (eight) Branch hours for 5 days. atorvastati 2020-07 Yes 10mg 10 mg, Univ ers n (LIPITOR) 1-15 Oral, QHS, it y of tablet 10 03:00: First dose [place] mg 00 on [facility] 05/20/21 Branch at 2100, Until Discontinu ed, Routine atorvastati 2020-07 Yes 10mg Take 10 mg Univers n 10 mg 1-14 by mouth ity of tablet 17:23: at [place] 01 bedtime. Medical Branch spironolact 2020-07 Yes [...] 40 mg 00 First dose Medical on [facility] 05/20/21 at 0900, Until Discontinu ed, Routine clopidogreL 2020-07 Yes 75mg 75 mg, Univ ers (PLAVIX) 1-14 Oral, QAM, ity o f tablet 75 15:00: First dose [place] mg 00 on [facility] 05/20/21 Branch at 0900, Until Discontinu ed, Routine ALPRAZolam 2020-07 Yes .5mg 0.5 mg, Univ ers (XANAX) 1-14 Oral, ity of tablet 0.5 15:00: DAILY, [place] mg 00 First dose Medical on [facility] 05/20/21 at 0900, Until Discontinu ed, Routine spironolact 2020-07 Yes 25mg 25 mg, Univ ers one 1-14 Oral, BID, ity of (ALDACTONE) 14:00: First dose [place] tablet 25 00 on [facility] mg 05/20/21 Branch at 0800, Until Discontinu ed, Routine Sliding 2020-07 Yes Subcutaneo Univ ers Scale 1-14 us, AC, ity of Insulin-Reg 13:30: First dose [place] ular + Fsbg 00 on [facility] 05/20/21 Branch at 0730, Until Discontinu ed, Routine levothyroxi 2020-07 Yes 100ug 100 mcg, U nivers ne 1-14 Oral, ity of (SYNTHROID) 12:00: QAM-0600, [place] tablet 100 00 First dose Med ical mcg on [facility] 05/20/21 at 0600, Until Discontinu ed, Routine pantoprazol 2020-07 Yes 40mg 40 mg, Univ ers e 1-14 Oral, ity of (PROTONIX) 06:30: DAILY, [place] EC tablet 00 First dose Medi hermelindo 40 mg (after Branch last modificati on) on [place] 05/20/21 at 0030, Until Discontinu ed cyclobenzap 2020-07 Yes 10mg 10 mg, Univ ers rine 1-14 Oral, ity of (FLEXERIL) 06:12: TIDPRN, [place] tablet 10 13 Starting Medica l mg on [facility] 05/20/21 at 0012, Until Discontinu ed, Routine, Muscle Spasms, leg pain polyethylen 2020-07 Yes 17g 17 g, Unive rs e glycol 1-14 Oral, ity of 3350 powder 06:04: [id number], [place] 17 g 16 Starting Medical on [facility] 05/20/21 at 0004, Until Discontinu ed, Routine, Constipati on glucagon 2020-07 Yes 1mg 1 mg, Univers (GLUCAGEN -14 Intramuscu ity of DIAGNOSTIC 05:29: lar, PRN, [place] KIT) 29 Starting Medical injection 1 on [facility] 05/19/21 at 2329, Until Discontinu ed, JEFFREY, Blood Glucose < or = 70 mg/dL and patient is unable to swallow or has mental changes. dextrose 50 2020-07 Yes 25mL 25 mL, Univ ers % in water 14 Slow IV ity of (D50W) 05:29: Push, PRN, [place] injection 29 Starting Medica l 25 mL on [facility] 05/19/21 at 2329, Until Discontinu ed, JEFFREY, Blood Glucose < or = 70 mg/dL and patient is unable to swallow or has mental status changes. ondansetron 2020-07 Yes 4mg 4 mg, Slow Univers (ZOFRAN 1-14 IV Push, ity of (PF)) 05:29: Q6HPRN, [place] injection 4 21 Starting Medi hermelindo mg on [facility] 05/19/21 at 2329, Until Discontinu ed, Routine, Nausea and Vomiting (N/V) morpHINE 2020-07 No 2mg 2 mg, Slow Un brice injection 2 14 11-15 IV Push, ity of mg 05:29: 05:28 Q4HPRN, [place] 11 :11 Starting Medical on [facility] Branch 05/19/21 at 2329, Until 05/20/21 at 2328, Routine, Pain (scale 7-10), Chest pain traMADoL 2020-07- No 50mg 50 mg, Univer s (ULTRAM) 07-2016 Oral, ity of tablet 50 05:29: 05:28 Q8HPRN, [place] mg 08 :08 Starting Medical on [facility] 05/19/21 at 2329, Until 05/21/21 at 2328, Routine, Pain (scale 4-6) acetaminoph 2020-07 Yes 650mg 650 mg, Un brice en 14 Oral, ity of (TYLENOL) 05:29: Q6HPRN, [place] tablet 650 05 Starting Medic al mg on [facility] Branch 05/19/21 at 2329, Until Discontinu ed, Routine, Pain (scale 1-3) omeprazole 2020-07- No 20mg Take 20 mg Univers 20 mg 07-19 by mouth ity of capsule 23:30: 00:00 daily. [place] 33 :00 [facility] guaiFENesin 2020- No 100mg 100 mg, U nivers 100 mg/5 mL 09-14 Oral, ity of solution 05:00: 16:59 ONCE, 1 [place] 100 mg 00 :00 dose, Fri [facility] 09/13/20 at Branch 2300, Routine ketorolac 2020- No 30mg 30 mg, Unive rs (TORADOL) 09-1411 Slow IV ity of injection 03:30: 02:27 Push, [place] 30 mg 00 :00 ONCE, 1 Medical dose, [facility] 09/13/20 at 2130, JEFFREY
Fa culty member approving Restricted medication : DIANA BERG benzonatate Yes [id number] 100mg Take 1 Univers 100 mg 3-10 capsule by ity of capsule 00:00: mouth 3 [place] 00 (three) Medical times Branch daily as needed for Cough. benzonatate Yes [id number] 100mg Take 1 Univers 100 mg 3-10 capsule by ity of capsule 00:00: mouth 3 [place] 00 (three) Medical times Branch daily as needed for Cough. benzonatate 2020- No [id number] 100mg Take 1 Univers 100 mg 09-13- [...] 10 1929, JEFFREY mL codeine-gua 2019-0 Yes [id number] 10mL Take 10 mL Univers ifenesin -21 by mouth ity of 10-100 mg/5 00:00: every 6 [place] as mL solution 00 (six) Medical hours as Branch needed for Cough. albuterol 2020-0 Yes [id number] 2.5mg Inhale 3 Univers 2.5 mg /3 1-21 mL every 4 ity of mL (0.083 00:00: (four) [place] %) 00 hours as Medical nebulizer needed for Bran ch solution Wheezing or Shortness of Breath. May also nebulize one extra every 6 hours. albuterol 2020-0 Yes [id number] 2.5mg Inhale 3 Univers 2.5 mg /3 1-21 mL every 4 ity of mL (0.083 00:00: (four) [place] %) 00 hours as Medical nebulizer needed for Bran ch solution Wheezing or Shortness of Breath. May also nebulize one extra every 6 hours. albuterol 2020-0 Yes [id number] 2.5mg Inhale 3 Univers 2.5 mg /3 1-21 mL every 4 ity of mL (0.083 00:00: (four) [place] %) 00 hours as Medical nebulizer needed for Bran ch solution Wheezing or Shortness of Breath. May also nebulize one extra every 6 hours. albuterol 2020-0 Yes [id number] 2.5mg Inhale 3 Univers 2.5 mg /3 1-21 mL every 4 ity of mL (0.083 00:00: (four) [place] %) 00 hours as Medical nebulizer needed for Bran ch solution Wheezing or Shortness of Breath. May also nebulize one extra every 6 hours. albuterol 2020-0 Yes [id number] 2.5mg Inhale 3 Univers 2.5 mg /3 1-21 mL every 4 ity of mL (0.083 00:00: (four) [place] %) 00 hours as Medical nebulizer needed for Bran ch solution Wheezing or Shortness of Breath. May also nebulize one extra every 6 hours. albuterol 2020-0 Yes [id number] 2.5mg Inhale 3 Univers 2.5 mg /3 1-21 mL every 4 ity of mL (0.083 00:00: ([facility]) [place] %) 00 hours as Medical nebulizer needed for Bran ch solution Wheezing or Shortness of Breath. May also nebulize one extra every 6 hours. albuterol 2020-0 Yes [id number] 2.5mg Inhale 3 Univers 2.5 mg /3 1-21 mL every 4 ity of mL (0.083 00:00: (four) [place] %) 00 hours as Medical nebulizer needed for Bran ch solution Wheezing or Shortness of Breath. May also nebulize one extra every 6 hours. albuterol 2020-0 Yes [id number] 2.5mg Inhale 3 Univers 2.5 mg /3 1-21 mL every 4 ity of mL (0.083 00:00: (four) [place] %) 00 hours as Medical nebulizer needed for Bran ch solution Wheezing or Shortness of Breath. May also nebulize one extra every 6 hours. albuterol 2020-0 Yes [id number] 2.5mg Inhale 3 Univers 2.5 mg /3 1-21 mL every 4 ity of mL (0.083 00:00: (four) [place] %) 00 hours as Medical nebulizer needed for Bran ch solution Wheezing or Shortness of Breath. May also nebulize one extra every 6 hours. albuterol 2020-0 Yes [id number] 2.5mg Inhale 3 Univers 2.5 mg /3 1-21 mL every 4 ity of mL (0.083 00:00: (four) [place] %) 00 hours as Medical nebulizer needed for Bran ch solution Wheezing or Shortness of Breath. May also nebulize one extra every 6 hours. albuterol 2020-0 Yes [id number] 2.5mg Inhale 3 Univers 2.5 mg /3 1-21 mL every 4 ity of mL (0.083 00:00: (four) [place] %) 00 hours as Medical nebulizer needed for Bran ch solution Wheezing or Shortness of Breath. May also nebulize one extra every 6 hours. albuterol 2020-0 Yes [id number] 2.5mg Inhale 3 Univers 2.5 mg /3 1-21 mL every 4 ity of mL (0.083 00:00: (four) [place] %) 00 hours as Medical nebulizer needed for Bran ch solution Wheezing or Shortness of Breath. May also nebulize one extra every 6 hours. albuterol 2020-0 Yes [id number] 2.5mg Inhale 3 Univers 2.5 mg /3 1-21 mL every 4 ity of mL (0.083 00:00: (four) [place] %) 00 hours as Medical nebulizer needed for Bran ch solution Wheezing or Shortness of Breath. May also nebulize one extra every 6 hours. albuterol 2020-0 Yes [id number] 2.5mg Inhale 3 Univers 2.5 mg /3 1-21 mL every 4 ity of mL (0.083 00:00: (four) [place] %) 00 hours as Medical nebulizer needed for Bran ch solution Wheezing or Shortness of Breath. May also nebulize one extra every 6 hours. albuterol 2020-0 Yes [id number] 2.5mg Inhale 3 Univers 2.5 mg /3 1-21 mL every 4 ity of mL (0.083 00:00: (four) [place] %) 00 hours as Medical nebulizer needed for Bran ch solution Wheezing or Shortness of Breath. May also nebulize one extra every 6 hours. albuterol 2020-0 Yes [id number] 2.5mg Inhale 3 Univers 2.5 mg /3 1-21 mL every 4 ity of mL (0.083 00:00: (four) [place] %) 00 hours as Medical nebulizer needed for Bran ch solution Wheezing or Shortness of Breath. May also nebulize one extra every 6 hours. codeine-gua 2020- No [id number] 10mL Take 10 mL Univers ifenesin 07-27 [...] 03/11/19 at 1430, JEFFREY dicyclomine 2018- Yes [id number] 10mg Take 1 Univers (BENTYL) 10 9-05 capsule by it y of mg capsule 00:00: mouth 4 [place] 00 (four) Medical times Branch daily. ondansetron 2018- Yes [id number] 4mg Take 1 Univers 4 mg 9-05 tablet by ity of disintegrat 00:00: mouth [place] ing tablet 00 every 4 Medica l (four) Branch hours as needed for Nausea and Vomiting (N/V). dicyclomine 2019-0 Yes [id number] 10mg Take 1 Univers (BENTYL) 10 9-05 capsule by it y of mg capsule 00:00: mouth 4 [place] 00 (four) Medical times Branch daily. ondansetron 2019-0 Yes [id number] 4mg Take 1 Univers 4 mg 9-05 tablet by ity of disintegrat 00:00: mouth [place] ing tablet 00 every 4 Medica l (four) Branch hours as needed for Nausea and Vomiting (N/V). dicyclomine 2019-0 Yes [id number] 10mg Take 1 Univers (BENTYL) 10 9-05 capsule by it y of mg capsule 00:00: mouth 4 [place] 00 (four) Medical times Branch daily. ondansetron Yes [id number] 4mg Take 1 Univers 4 mg 9-05 tablet by ity of disintegrat 00:00: mouth [place] ing tablet 00 every 4 Medica l (four) Branch hours as needed for Nausea and Vomiting (N/V). dicyclomine 2020- No [id number] 10mg Take 1 Univers (BENTYL) 10 9-05 03-10 capsule by i ty of mg capsule 00:00: 00:00 mouth 4 [place] as 00 :00 (four) Medical times Branch daily. ondansetron 2020- No [id number] 4mg Take 1 Univers 4 mg 9-05 [...] ity of tablet 14:40: at [place] [address] bedtime. Medical Branch omeprazole 2018-0 Yes 20mg Take 20 mg U nivers 20 mg 4-10 by mouth ity of capsule 14:40: daily. [place] [address] Medical Branch atorvastati 2018-0 Yes 10mg Take 10 mg Univers n 10 mg 4-10 by mouth ity of tablet 14:40: at [place] [address] bedtime. Medical Branch omeprazole 2018-0 Yes 20mg Take 20 mg U nivers 20 mg 4-10 by mouth ity of capsule 14:40: daily. [place] [address] Medical Branch atorvastati 2017-0 Yes 10mg Take 10 mg Univers n 10 mg 4-10 by mouth ity of tablet 14:40: at [place] [address] bedtime. Medical Branch omeprazole 2018-0 Yes 20mg Take 20 mg U nivers 20 mg 4-10 by mouth ity of capsule 14:40: daily. [place] [address] Medical Branch atorvastati 2017-0 Yes 10mg Take 10 mg Univers n 10 mg 4-10 by mouth ity of tablet 14:40: at [place] [address] bedtime. Medical Branch omeprazole 2017-0 Yes 20mg Take 20 mg U nivers 20 mg 4-10 by mouth ity of capsule 14:40: daily. [place] [address] Medical Branch atorvastati 2017-0 Yes 10mg Take 10 mg Univers n 10 mg 4-10 by mouth ity of tablet 14:40: at [place] [address] bedtime. Medical Branch omeprazole 2018-0 Yes 20mg Take 20 mg U nivers 20 mg 4-10 by mouth ity of capsule 14:40: daily. [place] [address] Medical Branch levothyroxi 0 Yes TAKE 1 Univ ers ne 125 mcg 4-10 TABLET BY ity of tablet 00:00: MOUTH [place] 00 EVERY Medical MORNING Branch levothyroxi 2017-0 Yes TAKE 1 Univ ers ne 125 mcg 4-10 TABLET BY ity of tablet 00:00: MOUTH [place] EVERY Medical MORNING Branch levothyroxi 2018-0 Yes TAKE 1 Univ ers ne 125 mcg 4-10 TABLET BY ity of tablet 00:00: MOUTH [place] EVERY Medical MORNING Branch levothyroxi 2017-0 Yes TAKE 1 Univ ers ne 125 mcg 4-10 TABLET BY ity of tablet 00:00: MOUTH [place] EVERY Medical MORNING Branch levothyroxi 2018-0 Yes [...] TABLET BY ity of tablet 00:00: MOUTH [place] 00 EVERY Medical MORNING Branch clopidogrel 2018-0 Yes TAKE 1 Univ ers 75 mg 2-06 TABLET BY ity of tablet 00:00: MOUTH [place] 00 EVERY Medical MORNING Branch clopidogrel 2018-0 Yes TAKE 1 Univ ers 75 mg 2-06 TABLET BY ity of tablet 00:00: MOUTH [place] 00 EVERY Medical MORNING Branch clopidogrel 2018-0 Yes TAKE 1 Univ ers 75 mg 2-06 TABLET BY ity of tablet 00:00: MOUTH [place] 00 EVERY Medical MORNING Branch clopidogrel 2018-0 Yes TAKE 1 Univ ers 75 mg 2-06 TABLET BY ity of tablet 00:00: MOUTH [place] 00 EVERY Medical MORNING Branch clopidogrel 2018-0 Yes TAKE 1 Univ ers 75 mg 2-06 TABLET BY ity of tablet 00:00: MOUTH [place] 00 EVERY Medical MORNING Branch clopidogrel 2018-0 Yes TAKE 1 Univ ers 75 mg 2-06 TABLET BY ity of tablet 00:00: MOUTH [place] 00 EVERY Medical MORNING Branch clopidogrel 2018-0 Yes TAKE 1 Univ ers 75 mg 2-06 TABLET BY ity of tablet 00:00: MOUTH [place] 00 EVERY Medical MORNING Branch clopidogrel 2018-0 Yes TAKE 1 Univ ers 75 mg 2-06 TABLET BY ity of tablet 00:00: [facility] 00 EVERY Medical MORNING Branch clopidogrel 2018-0 Yes TAKE 1 Univ ers 75 mg 2-06 TABLET BY ity of tablet 00:00: MOUTH [place] 00 EVERY Medical MORNING Branch clopidogrel 2018-0 Yes TAKE 1 Univ ers 75 mg 2-06 TABLET BY ity of tablet 00:00: MOUTH [place] 00 EVERY Medical MORNING Branch clopidogrel 2018-0 Yes TAKE 1 Univ ers 75 mg 2-06 TABLET BY ity of tablet 00:00: MOUTH [place] 00 EVERY Medical MORNING Branch clopidogrel 2018-0 Yes TAKE 1 Univ ers 75 mg 2-06 TABLET BY ity of tablet 00:00: MOUTH [place] 00 EVERY Medical MORNING Branch clopidogrel 2018-0 Yes TAKE 1 Univ ers 75 mg 2-06 TABLET BY ity of tablet 00:00: MOUTH [place] 00 EVERY Medical MORNING Branch clopidogrel 2018-0 [...] 20:38:00 149 mm[Hg] Univer sity of pressure [place] Medical [place] Diastolic blood 2023-02-26 20:38:00 75 mm[Hg] Unive rsity of [facility] Heart rate 2023-02-26 20:38:00 81 /min Universi ty of [facility] Body temperature 2023-02-26 20:38:00 36.72 Brittany [facility] Res[facility] rate 2023-02-26 20:38:00 18 /min [facility] Body height 2023-02-26 20:38:00 170.2 cm Universi ty of [facility] Body weight 2023-02-26 20:38:00 57.607 kg Universi ty of [facility] BMI 2023-02-26 20:38:00 19.89 kg/m2 Universi ty [facility] Oxygen saturation in 2023-02-26 20:38:00 100 /min [facility] Arterial blood by [facility] Pulse oximetry Branch Systolic blood 2022-08-24 15:43:00 135 mm[Hg] Univer sity of [facility] Diastolic blood 2022-08-24 15:43:00 83 mm[Hg] Unive rsity of [facility] Heart rate 2022-08-24 15:43:00 94 /min Universi ty of [facility] Body temperature 2022-08-24 15:43:00 36.83 Brittany Univ ersity of [facility] Respiratory rate 2022-08-24 15:43:00 18 /min Univ ersity of [facility] Body height 2022-08-24 15:43:00 170.2 cm Universi ty of [facility] Body weight 2022-08-24 15:43:00 58.968 kg Universi ty of [facility] BMI 2022-08-24 15:43:00 20.36 kg/m2 Universi ty of [place] [facility] Oxygen saturation in 2022-08-24 15:43:00 99 /min University of Arterial blood by [facility] hermelindo Pulse oximetry Branch Systolic blood 2022-01-08 02:02:00 147 mm[Hg] Univer sity of pressure [place] [facility] Diastolic blood 2022-01-08 02:02:00 78 mm[Hg] Unive rsity of pressure [place] [facility] Heart rate 2022-01-08 02:02:00 78 /min Universi ty of [place] [facility] Respiratory rate 2022-01-08 02:02:00 18 /min Univ ersity of [place] [facility] Oxygen saturation in 2022-01-08 02:02:00 100 /min University of Arterial blood by [facility] Pulse oximetry Branch Body temperature 2022-01-07 23:24:00 37.17 Brittany Univ ersity of [place] [facility] Body weight 2022-01-07 23:24:00 58.968 kg Universi ty of [place] [facility] BMI 2022-01-07 23:24:00 20.36 kg/m2 Universi ty of [place] [facility] Systolic blood 2022-01-06 20:29:00 140 mm[Hg] Univer sity of pressure [place] [facility] Diastolic blood 2022-01-06 20:29:00 106 mm[Hg] Unive rsity of pressure [place] [facility] Heart rate 2022-01-06 20:29:00 102 /min Universi ty of [place] [facility] Body temperature 2022-01-06 20:29:00 37.5 Brittany Univ ersity of [place] [facility] Respiratory rate 2022-01-06 20:29:00 16 /min Univ ersity of [place] [facility] Body height 2022-01-06 20:29:00 170.2 cm Universi ty of [place] [facility] Body weight 2022-01-06 20:29:00 58.968 kg Universi ty of [place] [facility] BMI 2022-01-06 20:29:00 20.36 kg/m2 Universi ty of [place] [facility] Oxygen saturation in 2022-01-06 20:29:00 99 /min University of Arterial blood by [facility] Pulse oximetry Branch Systolic blood 2021-09-02 01:52:00 132 mm[Hg] Univer sity of pressure [place] [facility] Diastolic blood 2021-09-02 01:52:00 75 mm[Hg] Unive rsity of pressure [place] [facility] Heart rate 2021-09-02 01:52:00 67 /min [facility] [place] [facility] Respiratory rate 2021-09-02 01:52:00 16 /min [facility] [place] [facility] Oxygen saturation in 2021-09-02 01:52:00 99 /min [facility] of Arterial blood by [facility] Pulse oximetry Branch Body temperature 2021-09-01 23:57:00 36.17 Brittany [facility] [place] [facility] Body height 2021-09-01 23:57:00 170.2 cm [facility] [place] [facility] Body weight 2021-09-01 23:57:00 58.968 kg [facility] [place] [facility] BMI 2021-09-01 23:57:00 20.36 kg/m2 [facility] [place] [facility] Systolic blood 2021-08-07 15:57:00 165 mm[Hg] [facility] [place] [facility] Diastolic blood 2021-08-07 15:57:00 71 mm[Hg] [facility] [place] [facility] Heart rate 2021-08-07 15:57:00 97 /min [facility] [place] [facility] Body temperature 2021-08-07 15:57:00 37.44 Brittany [facility] [place] [facility] Respiratory rate 2021-08-07 15:57:00 18 /min [facility] [place] [facility] Body height 2021-08-07 15:57:00 170.2 cm [facility] [place] [facility] Body weight 2021-08-07 15:57:00 56.7 kg [facility] [place] [facility] BMI 2021-08-07 15:57:00 19.58 kg/m2 [facility] [place] [facility] Oxygen saturation in 2021-08-07 15:57:00 98 /min [facility] Arterial blood by [facility] Pulse oximetry Branch Systolic blood 2021-06-30 01:29:00 132 mm[Hg] [facility] [place] [facility] Diastolic blood 2021-06-30 01:29:00 75 mm[Hg] [facility] [place] [facility] Heart rate 2021-06-30 01:29:00 75 /min [facility] [place] [facility] Respiratory rate 2021-06-30 01:29:00 18 /min [facility] [place] [facility] Oxygen saturation in 2021-06-30 01:29:00 100 /min [facility] Arterial blood by [facility] Pulse oximetry Branch Body temperature 2021-06-29 22:01:00 36.67 Brittany [facility] [place] [facility] Body weight 2021-06-29 22:01:00 53.071 kg [facility] [place] [facility] BMI 2021-06-29 22:01:00 18.32 kg/m2 [facility] [place] [facility] Systolic blood 2021-05-20 21:45:00 137 mm[Hg] [facility] [place] [facility] Diastolic blood 2021-05-20 21:45:00 75 mm[Hg] [facility] [place] [facility] Heart rate 2021-05-20 21:45:00 75 /min [facility] [place] [facility] Body temperature 2021-05-20 21:45:00 36.5 Brittany [facility] [place] [facility] Respiratory rate 2021-05-20 21:45:00 16 /min [facility] [place] [facility] Oxygen saturation in 2021-05-20 21:45:00 97 /min [facility] Arterial blood by [facility] Pulse oximetry Branch Body weight 2021-05-20 [...] 97 /min [facility] Arterial blood by [facility] Pulse oximetry Branch Body temperature 2020-09-14 02:10:00 36.5 Brittany [facility] [place] [facility] Body height 2020-09-14 02:09:00 170.2 cm [facility] [place] [facility] Body weight 2020-09-14 02:09:00 61.236 kg [facility] [place] [facility] BMI 2020-09-14 02:09:00 21.14 kg/m2 [facility] [place] [facility] Systolic blood 2020-09-14 03:30:00 147 mm[Hg] [facility] [place] [facility] Diastolic blood 2020-09-14 03:30:00 89 mm[Hg] [facility] [place] [facility] Heart rate 2020-09-14 03:30:00 73 /min [facility] [place] [facility] Respiratory rate 2020-09-14 03:30:00 19 /min [facility] [place] [facility] Oxygen saturation in 2020-09-14 03:30:00 97 /min [facility] Arterial blood by [place] [facility] Pulse oximetry Branch Body temperature 2020-09-14 02:10:00 36.5 Brittany [facility] [place] [facility] Body height 2020-09-14 02:09:00 170.2 cm [facility] [place] [facility] Body weight 2020-09-14 02:09:00 61.236 kg [facility] [place] [facility] BMI 2020-09-14 02:09:00 21.14 kg/m2 [facility] [place] [facility] Heart rate 2019-07-28 01:36:00 70 /min [facility] [place] [facility] Respiratory rate 2019-07-28 01:36:00 18 /min [facility] [place] [facility] Oxygen saturation in 2019-07-28 01:24:00 98 /min [facility] Arterial blood by [place] [facility] Pulse oximetry Branch Systolic blood 2019-07-28 01:00:00 143 mm[Hg] [facility] [place] [facility] Diastolic blood 2019-07-28 01:00:00 74 mm[Hg] [facility] [place] [facility] Body temperature 2019-07-28 00:05:00 36.56 Brittany [facility] [place] [facility] Body height 2019-07-28 00:05:00 170.2 cm [facility] [place] [facility] Body weight 2019-07-28 00:05:00 68.04 kg [facility] [place] [facility] BMI 2019-07-28 00:05:00 23.49 kg/m2 [facility] [place] [facility] Heart rate 2019-07-28 01:36:00 70 /min [facility] [place] [facility] Respiratory rate 2019-07-28 01:36:00 18 /min [facility] [place] [facility] Oxygen saturation in 2019-07-28 01:24:00 98 /min [facility] Arterial blood by [place] [facility] Pulse oximetry Branch Systolic blood 2019-07-28 01:00:00 143 mm[Hg] [facility] [place] [facility] Diastolic blood 2019-07-28 01:00:00 74 mm[Hg] [facility] [place] [facility] Body temperature 2019-07-28 00:05:00 36.56 Brittany [facility] [place] [facility] Body height 2019-07-28 00:05:00 170.2 cm [facility] [place] [facility] [place] Body weight 2019-07-28 00:05:00 68.04 kg [facility] [place] [facility] BMI 2019-07-28 00:05:00 23.49 kg/m2 [facility] [place] [facility] Systolic blood 2019-03-11 21:00:00 141 mm[Hg] [facility] [place] [facility] Diastolic blood 2019-03-11 21:00:00 66 mm[Hg] [facility] [place] [facility] Heart rate 2019-03-11 21:00:00 97 /min [facility] [place] [facility] Respiratory rate 2019-03-11 21:00:00 18 /min [facility] [place] [facility] Oxygen saturation in 2019-03-11 21:00:00 97 /min [facility] Arterial blood by [facility] Pulse oximetry Branch Body temperature 2019-03-11 19:13:00 36.06 Brittany [facility] [place] [facility] Body weight 2019-03-11 19:12:00 68.04 kg [facility] [place] [facility] BMI 2019-03-11 19:12:00 23.49 kg/m2 [facility] [place] [facility] Systolic blood 2019-03-11 21:00:00 141 mm[Hg] [facility] [place] [facility] Diastolic blood 2019-03-11 21:00:00 66 mm[Hg] [facility] [place] [facility] Heart rate 2019-03-11 21:00:00 97 /min [facility] Respiratory rate 2019-03-11 21:00:00 18 /min [facility] Oxygen saturation in 2019-03-11 21:00:00 97 /min [facility] Arterial blood by [facility] Pulse oximetry [place] Body temperature 2019-03-11 19:13:00 36.06 Brittany [facility] Body weight 2019-03-11 19:12:00 68.04 kg [facility] BMI 2019-03-11 19:12:00 23.49 kg/m2 [facility] Procedures Procedure Date / Time Performing Clinician Source Performed COMP. METABOLIC PANEL 2023-02-26 21:14:00 Neida Duggan [facility] ([id number]) [facility] CBC WITH DIFF 2023-02-26 21:14:00 Neida Duggan [place] [facility] CONSENT/REFUSAL FOR 2023-02-26 20:33:07 Doctor Unassigned, No Un [facility] DIAGNOSIS AND TREATMENT Name [facility] POCT SARS-COV-2 ANTIGEN 2022-08-24 15:52:00 Susan Lee [facility] (BINAX NOW) [facility] POCT MOLECULAR FLU 2022-08-24 15:51:00 Unknown, Attending [facility] ASSIGNMENT OF BENEFITS 2022-08-24 15:38:07 Doctor Unassigned, No [facility] Name [facility] XR CHEST 1 VW 2022-01-08 00:24:42 Alex Oconnell [facility] RAPID STREP SCREEN FOR 2022-01-06 20:47:00 Sherrill [facility] GROUP A Medical Branch COVID-19 (ID NOW RAPID 2022-01-06 20:47:00 Sherrill Connor [facility] TESTING) Medical Branch CONSENT/REFUSAL FOR 2022-01-06 20:26:18 Doctor Unassigned, No Un [facility] DIAGNOSIS AND TREATMENT Name [facility] RAPID INFLUENZA A/B 2021-09-02 00:47:00 Cameron Dalton [facility] COVID-19 (ID NOW RAPID 2021-09-02 00:47:00 Cameron Dalton [facility] TESTING) Medical Branch XR CHEST 2 VW 2021-09-02 00:27:31 [facility] FOR 2021-09-01 23:46:25 Doctor Unassigned, No [facility] Name Medical Branch XR CHEST 2 VW 2021-08-07 16:43:01 Darius Ledesma [facility] CONSENT/REFUSAL FOR 2021-08-07 15:37:28 [facility] Un[facility]igned, No [facility] Name [facility] ABDOMEN PELVIS W 2021-06-29 23:11:[address] [facility] CONTRAST Medical Branch LIPASE 2021-06-29 22:18[facility] 2021-06-29 22:18:00 Omaira [facility] COMP. METABOLIC PANEL 2021-06-29 22:18:00 Omaira [facility] ([id number]) Medical Branch CBC WITH DIFF 2021-06-29 22:18:00 Omaira [facility] URINALYSIS 2021-06-29 22:18[facility] CONSENT/REFUSAL FOR 2021-06-29 21:50:47 Doctor Unassigned, No [facility] Name [facility] POCT GLUCOSE (AUTOMATED) 2021-05-20 17:30:00 Marcelina Che [facility] HB ECG ROUTINE & RHYTHM 2021-05-20 15:36:46 Sami Caceres [facility] STRIP [facility] Branch TRANSTHORACIC ECHO (TTE) 2021-05-20 15:19:52 [facility] COMPLETE [facility] TROPONIN I 2021-05-20 11:04:00 Yane [facility] BASIC METABOLIC PANEL 2021-05-20 11:04:00 [facility] ([facility], K, CL, CO2, Medical Branch GLUCOSE, BUN, CREATININE, CA) CBC WITH DIFF 2021-05-20 11:04:00 Marcelina Che [facility] TROPONIN I 2021-05-20 01:56:00 Neida Duggan [facility] XR CHEST 1 VW 2021-05-20 00:01:05 Neida Duggan [facility] LIPASE 2021-05-19 23:49:00 Neida Duggan [facility] MAGNESIUM 2021-05-19 23:49:00 Neida Duggan [facility] TROPONIN I 2021-05-19 23:49:00 Neida Duggan [facility] COMP. METABOLIC PANEL 2021-05-19 23:49:00 Neida Duggan [facility] ([id number]) [facility] CBC WITH DIFF 2021-05-19 23:49:00 Neida Duggan [facility] PROTHROMBIN TIME / INR 2021-05-19 23:49:00 Neida [facility]uggan [facility] ACTIVATED PARTIAL 2021-05-19 23:49:00 Neida Duggan [facility] THRMPLAS [facility] COVID-19 (ID NOW RAPID 2021-05-19 23:49:00 Neida Duggan [facility] TESTING) [facility] CONSENT/REFUSAL FOR 2021-05-19 23:01:42 Doctor Unassigned, No [facility] DIAGNOSIS AND TREATMENT Name Medical Branch URINALYSIS 2020-09-14 02:42:00 Diana Berg [facility] XR CHEST 1 VW 2020-09-14 02:30:21 Diana Berg [facility] LIPASE 2020-09-14 02:21:00 Diana Berg [facility] TROPONIN I 2020-09-14 02:21:00 Diana Berg [facility] HEPATIC FUNCTION PANEL 2020-09-14 02:21:[address] [facility] ([id number]) (ALB,T.PRO,BILI Medical Branch T,BU/BC,ALT,AST,ALK PHOS) BASIC METABOLIC PANEL 2020-09-14 02:21:00 Diana Berg [facility] [place] (NA, K, CL, CO2, Medical Branch GLUCOSE, BUN, CREATININE, CA) CBC WITH DIFF 2020-09-14 02:21:00 Diana Berg [facility] N-TERMINAL PRO-BNP 2020-09-14 02:21:00 [facility] [place] [facility] (ID NOW RAPID 2020-09-14 02:21:00 Diana [facility] [place] [facility] NOTICE OF PRIVACY 2020-09-14 02:00:22 Doctor Unassigned, No [facility] Name [facility] CONSENT/REFUSAL FOR 2020-09-14 01:58:28 Doctor Unassigned, No Un [facility] [place] [facility] Name [facility] HEPATIC FUNCTION PANEL 2019-07-28 00:55:00 [facility] ([id number] (ALB,T.PRO,BILI Medical Branch T,BU/BC,ALT,AST,ALK PHOS) BASIC METABOLIC PANEL 2019-07-28 00:55:00 Mariangel [facility]tega [facility] [place] (NA, K, CL, CO2, Medical Branch GLUCOSE, BUN, CREATININE, CA) CBC WITH DIFFERENTIAL 2019-07-28 00:55:00 Mariangel [facility]tega [facility] RAPID STREP SCREEN FOR 2019-07-28 00:55:00 [facility]angel [facility] ADC,CLC OR LCC ONLY - 2019-07-28 00:55:00 Mraiangel Ortega [facility] [place] INFLUENZA A & B DIRECT Medical B ranch ANTIGEN CBC WITH DIFFERENTIAL 2019-07-28 00:55:00 Mariangel [facility]tega [facility] XR CHEST 2 VW 2019-07-28 00:28:40 Mariangel Ortega [facility] CONSENT/REFUSAL FOR 2019-07-27 23:47:18 Doctor Unassigned, No Un [facility] [place] DI[facility]NOSIS [facility] TREATMENT Name Medical Branch LIPASE 2019-03-11 19:53:00 Sherrill Connor [place] [facility] HEPATIC FUNCTION PANEL 2019-03-11 19:53:00 Sherrill Connor [facility] ([id number]) (ALB,T.PRO,BILI [facility] Branch T,BU/BC,ALT,AST,ALK PHOS) BASIC METABOLIC PANEL 2019-03-11 19:53:00 Sherrill Connor [facility] (NA, K, CL, CO2, Medical Branch GLUCOSE, BUN, CREATININE, CA) CBC WITH DIFFERENTIAL 2019-03-11 19:53:00 Sherrill Connor [facility] PROTHROMBIN TIME / INR 2019-03-11 19:53:00 Sherrill Connor [facility] ACTIVATED PARTIAL 2019-03-11 19:53:00 Sherrill [facility] NOTICE OF PRIVACY 2019-03-11 18:56:54 Doctor Unassigned, No Univ [facility] PRACTICES Name [facility] Encounters Start End Encounter Admission Attending Care Care Encounter Source Date/Time Date/Time Type Type Clinicians Facility Department ID 2021-05-06 Emergency [facility] [id number] Univers 05:05:13 ity of [facility] 2023-02-26 2023-02-26 Emergency X OLGA LIDIA Neida [facility] ERT [id number] Univers 15:53:00 17:52:00 ity of [facility] 2023-02-26 2023-02-26 Emergency Olga LidiaNeida [facility] 1.2.840.114 [id number] Univers 15:53:00 17:52:00 Leonarda DENNISON [id number] i ty of [place] 4.2.7.2.686 [facility] [id number] [facility] 084 Branch 2022-08-24 2022-08-24 Urgent Susan Lee [facility] 1.2.840.11 [id number] Univers 09:40:00 10:00:00 Care Unknown, Attending HEALTH [id number] ity of [place] [id number] Amandeep as JOCELYN?BLEA [id number] Ia dical [address] MEDICAL OFFICE BUILDING 2022-08-24 2022-08-24 Outpatient R TAMIKO [facility] [id number] Univers 09:40:00 09:40:00 SUSAN ity of [facility] 2022-08-24 2022-08-24 Orders Doctor SUSHIL 1.2.840.114 [id number] Univers 00:00:00 00:00:00 Only Unassigned, KIRK [id number] ity of [place] [facility] [id number] Amandeep as [id number] [address] 2022-01-11 2022-01-11 Laboratory Only, Ang Db Test [facility] 1.2.8 40.114 [id number] Univers 13:15:00 13:30:00 Only Monik Charles [facility] [id number] ity of [place] 4.2.7.2.686 Amandeep as JOCELYN?BLEA [id number] [address] MEDICAL OFFICE BUILDING 2022-01-11 2022-01-11 Outpatient Torres CHARLES [facility] [id number] Univers 13:15:00 13:24:38 MONIK delaney [facility] 2022-01-07 2022-01-07 [facility] [id number] Univers 18:26:00 21:08:00 ALEX garcia [facility] 2022-01-07 2022-01-07 [facility] 1.2.922.046 [id number] Univers 18:26:00 21:08:00 Alex DENNISON [id number] ity of [place] 4.2.7.2.686 [facility] [id number] [address] 2022-01-06 2022-01-06 Emergency [facility] [id number] Univers 15:31:00 16:32:00 SHERRILL delaney [facility] 2022-01-06 2022-01-06 [facility] 1.2.211.917 [id number] Univers 15:31:00 16:32:00 Sherrill DENNISON [id number] i ty [facility] 4.2.7.2.686 [facility] [id number] [address] 2021-09-01 2021-09-01 Emergency X [facility] ERT [id number] Univers 17:59:00 19:56:00 CAMERON delaney [facility] 2021-09-01 2021-09-01 Emergency [facility] 1.2.840.114 [id number] Univers 17:59:00 19:56:00 Cameron DENNISON [id number] i ty [place].2.[place] [id number] [place] [address]49[address] [place] 2021-09-01 2021-09-01 Orders Doctor SUSHIL 1.2.840.114 [id number] Univers 00:00:00 00:00:00 Only Unassigned, KIRK [id number] ity of [place] [facility] 4.2.7.2.686 Amandeep as [id number] [facility] 009 [place] 2021-08-08 2021-08-08 Letter SUSHIL Daniels 1.2.840.114 [id number] Univers 00:00:00 00:00:00 (Out) Nirmala BRADLEY 350.1.13.10 it y of HOSPITAL 4.2.7.2.686 Amandeep as [id number] [facility] 019 [place] 2021-08-07 2021-08-07 Emergency X [facility] ERT [id number] Univers 09:58:00 11:43:00 DARIUS delaney of [facility] 2021-08-07 2021-08-07 Emergency [facility] 1.2.442.910 [id number] Univers 09:58:00 11:43:00 Darius BRAGGDORINA 350.1.13.10 i ty of [place] 4.2.7.2.686 [facility] [id number] [place] [address]49294 [place] 2021-08-07 2021-08-07 Orders Doctor SUSHIL 1.2.840.114 [id number] Univers 00:00:00 00:00:00 Only Unassigned, KIRK 350.1.13.10 ity of [place] [facility] 4.2.7.2.686 Amandeep as [id number] [facility] 009 [place] 2021-06-29 2021-06-29 Emergency X OMAIRA [facility] ERT [id number] Univers 16:04:00 19:33:00 JOSE ALEJANDRO delaney [facility] 2021-06-29 2021-06-29 Emergency Omaira [facility] 1.2.840.114 [id number] Univers 16:04:00 19:33:00 Jose Alejandro DENNISON 350.1.13.10 i ty [facility] 4.2.7.2.686 [facility] [id number] [address] 2021-05-19 2021-05-20 [facility] [id number] Univers 17:04:00 17:03:00 MARCELINA delaney [facility] 2021-05-19 2021-05-20 Emergency Neida Duggan Leonarda [facility] 1..840. 114 [id number] Univers 17:04:00 17:03:00 Marcelina Che JESI 350.1.13.10 ity [facility] 4.2.7.2.686 [facility] [id number] [address] 2020-09-16 2020-09-16 Outpatient R LUISM ANUEL [facility] [id number] Univers 10:20:00 10:20:00 NICOLE ity [facility] 2020-09-16 2020-09-16 Laboratory Lab, [facility] 1..840.114 [id number] 09:44:15 10:04:15 Only Fam Pob I Health 350.1.13.10 [place] 4.2.7.2.686 Professio [id number] [place] [address] [address] 2020-09-16 2020-09-16 Laboratory Lab, [employer] Fam Pob I [facility] 1.. 840.114 [id number] Univers 09:44:15 10:04:15 Only Nicole [facility] 350.1.13.10 ity of [place] 4.2.7.2.686 Amandeep as Professio [id number] Ia dical [address] Office [address] 2020-09-13 2020-09-13 [facility] 1.2.840.114 [id number] 20:05:00 22:24:00 Diana Dennison 350.1.13.10 [place] 4.2.7.2.686 [place] [id number] [facility] 2020-09-13 2020-09-13 Emergency Rohan, [facility] 1.2.840.114 [id number] [facility] 20:05:00 22:24:00 Diana Braggton 350.1.13.10 ity of [place] 4.2.7.2.686 [facility] [id number] [address] 2019-07-27 2019-07-27 Emergency [facility] 1.2.840.114 [id number] 18:07:12 20:13:00 Mariangel Ada Jesi 350.1.13.10 [place] 4.2.7.2.686 [place] [id number] [facility] 2019-07-27 2019-07-27 Emergency [facility] 1.2.840.114 [id number] [facility] 18:07:12 20:13:00 Mariangel Dennison 350.1.13.10 ity of [place] 4.2.7.2.686 [facility] [id number] [address] 2019-07-27 2019-07-27 Orders Doctor LING 1.2.840.114 [id number] 00:00:00 00:00:00 Only Unassigned, KIRK 350.1.13.10 [place] [facility] 4.2.7.2.686 [id number] [facility] 2019-07-27 2019-07-27 Orders Doctor LING 1.2.840.114 [id number] Univers 00:00:00 00:00:00 Only Unassigned, KIRK 350.1.13.10 ity of [place] [facility] 4.2.7.2.686 Amandeep [id number] [address] 2019-03-11 2019-03-11 Emergency [facility] 1.2.910.384 [id number] 14:05:54 16:45:00 Sherrill Dennison 350.1.13.10 [place] 4.2.7.2.686 [place] [id number] [facility] 2019-03-11 2019-03-11 Emergency [facility] 1.2.470.036 [id number] Univers 14:05:54 16:45:00 Sherrill Dennison 350.1.13.10 i [facility] 4.2.7.2.686 [facility] [id number] [facility] 084 Branch Results Test Description Test Time Test Comments Results Result Comments Source COMP. METABOLIC PANEL (79424) 2023-02-26 22:05:45 Test Item Value Reference Range Interpretation Comme nts NA (test code = 8631534337) 136 mmol/L 135-145 K (test code = 0944931825) 3.7 mmol/L 3.5-5.0 CL (test code = 3774549564) 100 mmol/L 98-108 CO2 TOTAL (test code = 0936855274) 26 mmol/L 23-31 AGAP (test code = 5622535051) 10 2-16 BUN (test code = 3563643303) 11 mg/dL 7-23 GLUCOSE (test code = 0195671940) 123 mg/dL 70-110 H CREATININE (test code = 0.61 mg/dL 0.50-1.04 5410178327) TOTAL BILI (test code = 0.2 mg/dL 0.1-1.8 6900352845) CALCIUM (test code = 4684888433) 9.6 mg/dL 8.6-10.6 T PROTEIN (test code = 9449660697) 7.6 g/dL 6.3-8.2 ALBUMIN (test code = 0603244078) 4.8 g/dL 3.5-5.0 ALK PHOS (test code = 5559212517) 83 U/L 34-122 ALTv (test code = 1742-6) 20 U/L 5-35 AST(SGOT) (test code = 8913304735) 28 U/L 13-40 eGFR (test code = 5559787166) 99.1 mL/min/1.73m2 MADISYN (test code = MADISYN) [...] tests). Lab Interpretation (test code = Abnormal 13507-9) [facility] WITH [id number] 21:53:23 Test Item Value Reference Range Interpretation Comments WBC (test code = 6.64 See_Comment [Automated 8190-2) message] The sy stem which generated this result transmitted reference range : 4.30 - 11.10 10*3/?L. The reference range was not used to interpret this result as normal/abnormal . RBC (test code = 3.46 See_Comment L [Automated 939-8) message] The sy [...] RDW-SD (test code = 42.1 fL 39.0-49.9 55084-3) RDW-CV (test code = 12.9 % 12.0-15.5 788-0) PLT (test code = 274 See_Comment [Automated 777-3) message] The sy stem which generated this result transmitted reference range : 166 - 358 10*3/ ?L. The reference r aiden was not used to interpret this result as normal/abnormal . MPV (test code = 10.4 fL 9.5-12.9 51903-5) NRBC/100 WBC (test 0.0 See_Comment [Automat ed code = 9416297464) message] The system which generated this result transmitted reference range : 0.0 - 10.0 /100 WBCs. The refer ence range was not u sed to interpret th is result as normal/abnormal . NRBC x10^3 (test code See_Comment [Auto mated = 5367287124) message] The s ystem which generated this result transmitted reference range : 10*3/?L. The reference range was not used to interpret this result as normal/abnormal . GRAN MAT (NEUT) % 52.0 % (test code = 770-8) IMM GRAN % (test code 0.50 % = 3788410116) LYMPH % (test code = 34.2 % 736-9) MONO % (test code = 6.8 % 5905-5) EOS % (test code = 6.2 % 713-8) BASO % (test code = 0.3 % 706-2) GRAN MAT x10^3(ANC) 3.46 10*3/uL 1.88-7.09 (test code = 0273536610) IMM GRAN x10^3 (test 0.03 10*3/uL 0.00-0.06 code = 2284514616) LYMPH x10^3 (test code 2.27 10*3/uL 1.32-3.29 = 731-0) MONO x10^3 (test code 0.45 10*3/uL 0.33-0.92 = 742-7) EOS x10^3 (test code = 0.41 10*3/uL 0.03-0.39 H 711-2) BASO x10^3 (test code 0.01-0.07 = 704-7) Lab Interpretation Abnormal (test code = 56071-7) [facility] MOLECULAR [id number] 16:02:31 Test Item Value Reference Range Interpretation Comments POCT Molecular FluA (test code = Negative Negative 82272-5) POCT Molecular FluB (test code = Negative Negative 04297-6) Lab Interpretation (test code = Normal 72808-0) [facility] SARS-COV-2 ANTIGEN (BINAX NOW)2022-08-24 15:52:00 Test Item Value Reference Range Interpretation Comments POCT SARS-COV-2 ANTIGEN (test Not Detected Not Detected code = 77587-2) On board controls acceptable Yes with C Line (test code = 3574) Lab Interpretation (test code = Normal 41531-0) [facility] METABOLIC PANEL (98094)2021-06-29 23:10:56 Test Item Value Reference Range Interpretation Comments NA (test code = 137 mmol/L 135-145 8282114672) K (test code = 3.9 mmol/L 3.5-5.0 1176948697) CL (test code = 102 mmol/L 98-108 3380820418) CO2 TOTAL (test code = 27 mmol/L 23-31 4604392286) AGAP (test code = 2-16 5836313651) BUN (test code = 10 mg/dL 7-23 4966541128) GLUCOSE (test code = 137 mg/dL 70-110 H 0250694019) CREATININE (test code = 0.69 mg/dL 0.50-1.04 4260415927) TOTAL BILI (test code = 0.5 mg/dL 0.1-1.9 3743793179) CALCIUM (test code = 9.2 mg/dL 8.6-10.6 2752597405) T PROTEIN (test code = 7.7 g/dL 6.3-8.2 3125742512) ALBUMIN (test code = 4.9 g/dL 3.5-5.0 2116539016) ALK PHOS (test code = 73 U/L 34-122 6360679047) ALTv (test code = 15 U/L 5-35 1742-6) AST(SGOT) (test code = 21 U/L 13-40 4456556030) eGFR (test code = mL/min/1.73m2 7413003210) MADISYN (test code = MADISYN) Association of [...] tests). Lab Interpretation Abnormal (test code = 37988-3) [id number] 22:59:27 Test Item Value Reference Interpretation Comments Range TROPONIN I (test 0.001 ng/mL See_Comment [Automated code = 8217119188) message] The system which generated this result [...] biotin. Lab Interpretation Normal (test code = 82318-5) [facility] 22:49[facility]29 Test Item Value Reference Range Interpretation Comments LIPASE (test code = 1670636252) 57 U/L 0-220 Lab Interpretation (test code = Normal 73270-3) [facility] [id number] 22:29:28 Test Item Value Reference Range Interpretation Comments WBC (test code = See_Comment [Automated 5490-2) message] The sy stem which generated this result transmitted reference range : 4.30 - 11.10 10*3/?L. The reference range was not used to interpret this result as normal/abnormal . RBC (test code = See_Comment L [Automated 299-8) message] The sy stem which generated this [...] RDW-SD (test code = 43.4 fL 39.0-49.9 20737-1) RDW-CV (test code = 12.7 % 12.0-15.5 788-0) PLT (test code = See_Comment [Automated 837-3) message] The sy stem which generated this result transmitted reference range : 166 - 358 10*3/ ?L. The reference r aiden was not used to interpret this result as normal/abnormal . MPV (test code = 10.7 fL 9.5-12.9 00156-3) NRBC/100 WBC (test See_Comment [Automat ed code = 7544803148) message] The system which generated this result transmitted reference range : 0.0 - 10.0 /100 WBCs. The refer ence range was not u sed to interpret th is result as normal/abnormal . NRBC x10^3 (test code <0.01 See_Comment [Auto mated = 3317596643) message] The s ystem which generated this result transmitted reference range : 10*3/?L. The reference range was not used to interpret this result as normal/abnormal . GRAN MAT (NEUT) % 68.6 % (test code = 770-8) IMM GRAN % (test code 0.40 % = 8229158881) LYMPH % (test code = 22.9 % 736-9) MONO % (test code = 6.3 % 5905-5) EOS % (test code = 1.6 % 713-8) BASO % (test code = 0.2 % 706-2) GRAN MAT x10^3(ANC) 6.89 10*3/uL 1.88-7.09 (test code = 5464085135) IMM GRAN x10^3 (test 0.04 10*3/uL 0.00-0.06 code = 3152848681) LYMPH x10^3 (test code 2.30 10*3/uL 1.32-3.29 = 731-0) MONO x10^3 (test code 0.63 10*3/uL 0.33-0.92 = 742-7) EOS x10^3 (test code = 0.16 10*3/uL 0.03-0.39 711-2) BASO x10^3 (test code <0.03 0.01-0.07 = 704-7) Lab Interpretation Abnormal (test code = 31215-4) [facility] 17:33:00 Test Item Value Reference Range Interpretation Comments POCT GLU (test code = 8791341684) 80 mg/dL 70-110 Lab Interpretation (test code = Normal 92983-9) [facility]TR[facility] [id number] 12:36:17 Test Item Value Reference Interpretation Comments Range TROPONIN I (test 0.002 ng/mL See_Comment [Automated code = 9807974094) message] The system which generated this result [...] biotin. Lab Interpretation Normal (test code = 54991-6) [facility] Metabolic Panel (NA, K, CL, CO2, GLUCOSE, BUN, CREATININE, [place])2021-05-20 12:31:20 Test Item Value Reference Range Interpretation Comments NA (test code = 138 mmol/L 135-145 0089887614) K (test code = 4.2 mmol/L 3.5-5.0 5898357829) CL (test code = 106 mmol/L 98-108 2191036080) CO2 TOTAL (test code = 25 mmol/L 23-31 5177831619) AGAP (test code = 2-16 2557268769) BUN (test code = 12 mg/dL 7-23 9699576733) GLUCOSE (test code = 146 mg/dL 70-110 H 5622930793) CREATININE (test code = 0.62 mg/dL 0.50-1.04 1733958533) CALCIUM (test code = 10.0 mg/dL 8.6-10.6 2528445478) eGFR (test code = mL/min/1.73m2 0954326838) MADISYN (test code = MADISYN) Association of [...] tests). Lab Interpretation Abnormal (test code = 34922-2) [facility] with Tjgldcrhdoim4548-41-78 11:49:32 Test Item Value Reference Range Interpretation Comments WBC (test code = See_Comment [Automated 7058-2) message] The sy stem which generated this result transmitted reference range : 4.30 - 11.10 10*3/?L. The reference range was not used to interpret this result as normal/abnormal . RBC (test code = See_Comment L [Automated 505-8) message] The sy stem which generated this [...] RDW-SD (test code = 40.3 fL 39.0-49.9 37942-6) RDW-CV (test code = 11.9 % 12.0-15.5 L 788-0) PLT (test code = See_Comment [Automated 777-3) message] The sy stem which generated this result transmitted reference range : 166 - 358 10*3/ ?L. The reference r aiden was not used to interpret this result as normal/abnormal . MPV (test code = 11.3 fL 9.5-12.9 28786-4) NRBC/100 WBC (test See_Comment [Automat ed code = 2066208636) message] The system which generated this result transmitted reference range : 0.0 - 10.0 /100 WBCs. The refer ence range was not u sed to interpret th is result as normal/abnormal . NRBC x10^3 (test code <0.01 See_Comment [Auto mated = 4471403106) message] The s ystem which generated this result transmitted reference range : 10*3/?L. The reference range was not used to interpret this result as normal/abnormal . GRAN MAT (NEUT) % 59.9 % (test code = 770-8) IMM GRAN % (test code 0.50 % = 5247558247) LYMPH % (test code = 30.0 % 736-9) MONO % (test code = 6.4 % 5905-5) EOS % (test code = 2.9 % 713-8) BASO % (test code = 0.3 % 706-2) GRAN MAT x10^3(ANC) 3.72 10*3/uL 1.88-7.09 (test code = 2521684226) IMM GRAN x10^3 (test 0.03 10*3/uL 0.00-0.06 code = 7264661884) LYMPH x10^3 (test code 1.86 10*3/uL 1.32-3.29 = 731-0) MONO x10^3 (test code 0.40 10*3/uL 0.33-0.92 = 742-7) EOS x10^3 (test code = 0.18 10*3/uL 0.03-0.39 711-2) BASO x10^3 (test code <0.03 0.01-0.07 = 704-7) Lab Interpretation Abnormal (test code = 05615-2) [facility] [id number] 02:24:28 Test Item Value Reference Interpretation Comments Range TROPONIN I (test 0.003 ng/mL See_Comment [Automated code = 2244991855) message] The system which generated this result [...] biotin. Lab Interpretation Normal (test code = 37490-5) [facility] Test Item Value Reference Range Interpretation Comments MAGNESIUM (test code = 7835811254) 1.9 mg/dL 1.7-2.4 Lab Interpretation (test code = Normal 54603-0) [facility] [id number] 00:20:03 Test Item Value Reference Interpretation Comments Range TROPONIN I (test 0.002 ng/mL See_Comment [Automated code = 2463471261) message] The system which generated this result [...] biotin. Lab Interpretation Normal (test code = 01432-2) [facility]. METABOLIC PANEL (52407)2021-05-20 00:09:00 Test Item Value Reference Range Interpretation Comments NA (test code = 139 mmol/L 135-145 8057672499) K (test code = 3.9 mmol/L 3.5-5.0 8796327437) CL (test code = 101 mmol/L 98-108 6858221674) CO2 TOTAL (test code = 28 mmol/L 23-31 1800665430) AGAP (test code = 2-16 5628687453) BUN (test code = 13 mg/dL 7-23 0679486837) GLUCOSE (test code = 143 mg/dL 70-110 H 4809562135) CREATININE (test code = 0.68 mg/dL 0.50-1.04 8718700112) TOTAL BILI (test code = 0.4 mg/dL 0.1-1.2 3770745920) CALCIUM (test code = 10.4 mg/dL 8.6-10.6 1891840337) T PROTEIN (test code = 8.0 g/dL 6.3-8.2 9854143075) ALBUMIN (test code = 5.0 g/dL 3.5-5.0 4875204336) ALK PHOS (test code = 93 U/L 34-122 9015846526) ALTv (test code = 21 U/L 5-35 1742-6) AST(SGOT) (test code = 31 U/L 13-40 9019192439) eGFR (test code = mL/min/1.73m2 6615116945) MADISYN (test code = MADISYN) Association of [...] tests). Lab Interpretation Abnormal (test code = 78690-7) [facility]:08[facility]20 Test Item Value Reference Range Interpretation Comments LIPASE (test code = 2550959967) 66 U/L 0-220 Lab Interpretation (test code = Normal 61485-3) [facility]eraPTT[facility] 00:06:19 Test Item Value Reference Range Interpretation Comments APTT Patient (test See_Comment [Automat ed code = 3173-2) message] The system which generated this result transmitted reference range : 23 - 38 Seconds . The reference range was not used to interpr et this result as normal/abnormal . MADISYN (test code = MADISYN) The [facility] patient population mean normal value for aPTT is 30 seconds. Lab Interpretation Normal (test code = 44562-6) [facility] CenterPROTHROMBIN [facility] / [id number] 00:04:19 Test Item Value Reference Range Interpretation [...] tions. Lab Interpretation (test Normal code = 61204-3) [facility] WITH [id number] 23:55:39 Test Item Value Reference Range Interpretation Comments WBC (test code = See_Comment [Automated 3190-2) message] The sy stem which generated this [...] RDW-SD (test code = 40.4 fL 39.0-49.9 74626-1) RDW-CV (test code = 11.9 % 12.0-15.5 L 788-0) PLT (test code = See_Comment [Automated 777-3) message] The sy stem which generated this result transmitted reference range : 166 - 358 10*3/ ?L. The reference r aiden was not used to interpret this result as normal/abnormal . MPV (test code = 11.0 fL 9.5-12.9 09741-0) NRBC/100 WBC (test See_Comment [Automat ed code = 9366352743) message] The system which generated this result transmitted reference range : 0.0 - 10.0 /100 WBCs. The refer ence range was not u sed to interpret th is result as normal/abnormal . NRBC x10^3 (test code <0.01 See_Comment [Auto mated = 0883559920) message] The s ystem which generated this result transmitted reference range : 10*3/?L. The reference range was not used to interpret this result as normal/abnormal . GRAN MAT (NEUT) % 53.4 % (test code = 770-8) IMM GRAN % (test code 0.60 % = 3943687696) LYMPH % (test code = 36.2 % 736-9) MONO % (test code = 6.4 % 5905-5) EOS % (test code = 3.3 % 713-8) BASO % (test code = 0.1 % 706-2) GRAN MAT x10^3(ANC) 3.58 10*3/uL 1.88-7.09 (test code = 2384402638) IMM GRAN x10^3 (test 0.04 10*3/uL 0.00-0.06 code = 2899456801) LYMPH x10^3 (test code 2.43 10*3/uL 1.32-3.29 = 731-0) MONO x10^3 (test code 0.43 10*3/uL 0.33-0.92 = 742-7) EOS x10^3 (test code = 0.22 10*3/uL 0.03-0.39 711-2) BASO x10^3 (test code <0.03 0.01-0.07 = 704-7) Lab Interpretation Abnormal (test code = 83319-4) [facility]inalysis[facility] 03:27:11 Test Item Value Reference Range Interpretation Comments APPEARANCE (test code = Clear Clear 5624297729) COLOR (test code = Straw Yellow A 7097034769) PH (test code = 4.8-8.0 6118387265) SP GRAVITY (test code = 1.003-1.030 5807876075) GLU U QUAL (test code = 500 mg/dL Normal A 0716392190) BLOOD (test code = Negative Negative 1583525506) KETONES (test code = Negative Negative 6677198549) PROTEIN (test code = Negative Negative 2887-8) UROBILIN (test code = Normal Normal 9750339432) BILIRUBIN (test code = Negative Negative 4687628247) NITRITE (test code = Negative Negative 7988881025) LEUK KEVEN (test code = 25/uL Negative A 3532873688) RBC/HPF (test code = See_Comment [Autom ated message] 3561306847) The system [employer] generated this result transmit zoila reference range : 0 - 3 HPF. The refe rence range was not u sed to interpret th is result as normal/abnormal . WBC/HPF (test code = See_Comment [Autom ated message] 2715116746) The system [employer] generated this result transmit zoila reference range : 0 - 5 HPF. The refe rence range was not u sed to interpret th is result as normal/abnormal . BACTERIA (test code = Negative Negative 2589361409) MUCOUS (test code = Slight Negative LPF A 1012197160) SQ EPITH (test code = HPF 7768439102) Lab Interpretation (test Abnormal code = 28067-9) [facility] [id number] 03:00:28 Test Item Value Reference Range Interpretation Comments TROPONIN I (test <0.012 See_Comment [Automated code = 5022296489) message] The system which generated this result [...] ? Lab Interpretation Normal (test code = 13331-5) [facility]AL EOD-[id number] 02:57:10 Test Item Value Reference Range Interpretation Comments NT-proBNP (test code 25 pg/mL See_Comment [Autom ated = 1328962391) message] The system which generated this result transmitted reference range : <=125. The reference range was not used to interpret this result as normal/abnormal . MADISYN (test code = MADISYN) Biotin has been reported to cause a negative bias, interpret results relative to patient's use of biotin. Lab Interpretation Normal (test code = 37147-3) [facility] Center[facility]asi Met[facility] (NA, K, CL, CO2, GLUCOSE, BUN, CREATININE, CA)2020-09-14 02:48:49 Test Item Value Reference Range Interpretation Comments NA (test code = 135 mmol/L 135-145 9213299985) K (test code = 3.6 mmol/L 3.5-5.0 0826558335) CL (test code = 101 mmol/L 98-108 0467806468) CO2 TOTAL (test code = 23 mmol/L 23-31 1075642319) AGAP (test code = 2-16 3323090180) BUN (test code = 10 mg/dL 7-23 3022136911) GLUCOSE (test code = 296 mg/dL 70-110 H 1506744416) CREATININE (test code = 0.62 mg/dL 0.50-1.04 2380228270) CALCIUM (test code = 9.7 mg/dL 8.6-10.6 7181021763) eGFR Calculation mL/min/1.73m2 (Non-) (test code = 6652687257) eGFR Calculation mL/min/1.73m2 () (test code = 1324559262) MADISYN (test code = MADISYN) Association of [...] tests). Lab Interpretation Abnormal (test code = 37769-3) [facility] Center[facility] Function [facility] (ALB, T.PRO, BILI T, BU/BC, ALT, AST, ALK PHOS)2020-09-14 02:48:48 Test Item Value Reference Range Interpretation Comments TOTAL BILI (test code = 4446341998) 0.4 mg/dL 0.1-1.1 BILI UNCON (test code = 8019756723) 0.4 mg/dL 0.1-1.1 BILI CONJ (test code = 6900002971) 0.0 mg/dL 0.0-0.3 T PROTEIN (test code = 0422385542) 7.7 g/dL 6.3-8.2 ALBUMIN (test code = 9619513235) 5.0 g/dL 3.5-5.0 ALK PHOS (test code = 5589342238) 78 U/L 34-122 ALTv (test code = 1742-6) 19 U/L 5-35 AST(SGOT) (test code = 1155367361) 25 U/L 13-40 Lab Interpretation (test code = Normal 49475-3) [facility] CenterLipase [id number] 02:48:48 Test Item Value Reference Range Interpretation Comments LIPASE (test code = 4287173705) 38 U/L 0-220 Lab Interpretation (test code = Normal 00593-5) [facility] CenterCOVID-19 (ID NOW RAPID TESTING)2020-09-14 02:36:29 Test Item Value Reference Range Interpretation Comments SARS-CoV-2 Rapid ID NOW Positive Not Detected A (test code = 83452-3) MADISYN (test code = MADISYN) ID NOW COVID-19 Assay is an isothermal nucleic acid amplification test intended for the qualitative detection of nucleic acid from SARS-CoV-2 viral RNA in nasopharyngeal (HUM[employer]OURCE STATISTICIAN) specimens. It is used under Emergency Use [...] indicated. Lab Interpretation Abnormal (test code = 83442-8) [facility] CenterCBC with Swnjcefmgvfb3024-68-39 02:30:06 Test Item Value Reference Range Interpretation Comments WBC (test code = See_Comment [Automated message] 6690-2) The system [employer] generated this result transmitted ref erence range: 4.30 - 1 1.10 10*3/?L. The re ference range was not u sed to interpret this result as normal/abnor mal. RBC (test code = See_Comment [Automated message] 789-8) The system [employer] generated this result transmitted ref erence range: [...] RDW-SD (test code 41.8 fL 39.0-49.9 = 66744-4) RDW-CV (test code 12.8 % 12.0-15.5 = 788-0) PLT (test code = See_Comment [Automated message] 777-3) The system whic h generated this result transmitted ref erence range: 166 - 35 8 10*3/?L. The re ference range was not u sed to interpret this result as normal/abnor mal. MPV (test code = 11.2 fL 9.5-12.9 09027-4) NRBC/100 WBC (test See_Comment [Automat ed message] code = 0401646482) The syste m which generated this result transmitted ref erence range: 0.0 - 10 .0 /100 WBCs. The refer ence range was not u sed to interpret this result as normal/abnor mal. NRBC x10^3 (test <0.01 See_Comment [Automated message] code = 9329224511) The syste m which generated this result transmitted ref erence range: 10*3/?L. The reference range was not used to interpr et this result as normal/abnormal . GRAN MAT (NEUT) % 54.0 % (test code = 770-8) IMM GRAN % (test 0.70 % code = 7643606299) LYMPH % (test code 36.2 % = 736-9) MONO % (test code 6.0 % = 5905-5) EOS % (test code = 2.8 % 713-8) BASO % (test code 0.3 % = 706-2) GRAN MAT 3.13 10*3/uL 1.88-7.09 x10^3(ANC) (test code = 7180376242) IMM GRAN x10^3 0.04 10*3/uL 0.00-0.06 (test code = 4140321333) LYMPH x10^3 (test 2.10 10*3/uL 1.32-3.29 code = 731-0) MONO x10^3 (test 0.35 10*3/uL 0.33-0.92 code = 742-7) EOS x10^3 (test 0.16 10*3/uL 0.03-0.39 code = 711-2) BASO x10^3 (test <0.03 0.01-0.07 code = 704-7) [facility] WITH [id number] 01:35:00 Test Item Value Reference Range Interpretation Comments WBC (test code = See_Comment [Automated 9944-2) message] The sy stem which generated this result transmitted reference range : 4.30 - 11.10 10*3/?L. The reference range was not used to interpret this result as normal/abnormal . RBC (test code = See_Comment [Automated 429-8) message] The sy stem which generated this [...] RDW-SD (test code = 40.8 fL 39-49.9 59237-9) RDW-CV (test code = 12.5 % 12-15.5 788-0) PLT (test code = See_Comment [Automated 777-3) message] The sy stem which generated this result transmitted reference range : 166 - 358 10*3/ ?L. The reference r aiden was not used to interpret this result as normal/abnormal . MPV (test code = 11.0 fL 9.5-12.9 07269-0) IPF % (test code = 5.7 % 1.3-7.7 Platelet count 6341741949) measured by fluorescence method. NRBC/100 WBC (test See_Comment [Automat ed code = 5256294465) message] The system which generated this result transmitted reference range : 0.0 - 10.0 /100 WBCs. The refer ence range was not u sed to interpret th is result as normal/abnormal . NRBC x10^3 (test code <0.01 See_Comment [Auto mated = 3630660785) message] The s ystem which generated this result transmitted reference range : 10*3/?L. The reference range was not used to interpret this result as normal/abnormal . GRAN MAT (NEUT) % 60.2 % (test code = 770-8) IMM GRAN % (test code 1.60 % = 4566543279) LYMPH % (test code = 29.4 % 736-9) MONO % (test code = 6.2 % 5905-5) EOS % (test code = 2.3 % 713-8) BASO % (test code = 0.3 % 706-2) GRAN MAT x10^3(ANC) 5.31 10*3/uL 1.88-7.09 (test code = 8603196938) IMM GRAN x10^3 (test 0.14 10*3/uL 0-0.06 H code = 9851091456) LYMPH x10^3 (test code 2.59 10*3/uL 1.32-3.29 = 731-0) MONO x10^3 (test code 0.55 10*3/uL 0.33-0.92 = 742-7) EOS x10^3 (test code = 0.20 10*3/uL 0.03-0.39 711-2) BASO x10^3 (test code 0.03 10*3/uL 0.01-0.07 = 704-7) Lab Interpretation Abnormal (test code = 20755-2) [facility] CenterAD,CLC OR [facility] ONLY - INFLUENZA A & B DIRECT [id number] 01:26:00 Test Item Value Reference Range Interpretation Comments Influenza A (test code = 72070-7) Negative Negative Influenza B (test code = 90590-0) Negative Negative Lab Interpretation (test code = Normal 08901-4) [facility] Metabolic Panel (NA, K, CL, CO2, GLUCOSE, BUN, CREATININE, CA)2019-07-28 01:21:00 Test Item Value Reference Range Interpretation Comments NA (test code = 137 mmol/L 135-145 7966937159) K (test code = 3.8 mmol/L 3.5-5 5970053944) CL (test code = 100 mmol/L 98-108 4501830190) CO2 TOTAL (test code = 24 mmol/L 23-31 9615573909) AGAP (test code = 2-16 8261854986) BUN (test code = 13 mg/dL 7-23 1552400859) GLUCOSE (test code = 245 mg/dL 70-110 H 4028413457) CREATININE (test code = 0.49 mg/dL 0.5-1.04 L 4049287555) CALCIUM (test code = 9.8 mg/dL 8.6-10.6 7081781463) eGFR Calculation mL/min/1.73m2 (Non-) (test code = 5902060533) eGFR Calculation mL/min/1.73m2 () (test code = 7131890984) MADISYN (test code = MADISYN) Association of [...] tests). Lab Interpretation Abnormal (test code = 64699-8) [facility] CenterHep[facility] (ALB, T.PRO, BILI T, BU/BC, ALT, AST, ALK PHOS)2019-07-28 01:21:00 Test Item Value Reference Range Interpretation Comments TOTAL BILI (test code = 6521080453) 0.3 mg/dL 0.1-1.1 BILI UNCON (test code = 9625181433) 0.1 mg/dL 0.1-1.1 BILI CONJ (test code = 3978482407) 0.0 mg/dL 0-0.3 T PROTEIN (test code = 8086724879) 8.2 g/dL 6.3-8.2 ALBUMIN (test code = 6170939962) 5.0 g/dL 3.5-5 ALK PHOS (test code = 5359056265) 121 U/L 34-122 ALTv (test code = 1742-6) 33 U/L 5-35 AST(SGOT) (test code = 7561883110) 30 U/L 13-40 Lab Interpretation (test code = Normal 68947-1) [facility] CenterRAPID STREP SCREEN FOR GROUP [id number] 01:19:00 Test Item Value Reference Range Interpretation Comments Streptococcus pyogenes (group A) Negative Negative antigen (test code = 78026-2) Lab Interpretation (test code = Normal 60759-5) [facility] CenterXR CHEST 2 [id number] 00:53:20Impression: No acute cardiopulmonary changes. Small sized [...] are unremarkable. Smallsized hiatal hernia is present. [facility], Radiant Results Inft User - 07/27/2019 [...] reviewed this study and agree withthe above report.[facility] (NA, K, CL, CO2, GLUCOSE, BUN, CREATININE, CA)2019-03-11 20:52:00 Test Item Value Reference Range Interpretation Comments NA (test code = 141 mmol/L 135-145 7613463276) K (test code = 3.6 mmol/L 3.5-5 9776578456) CL (test code = 104 mmol/L 98-108 8245611149) CO2 TOTAL (test code = 24 mmol/L 23-31 8499914078) AGAP (test code = 2-16 8580699677) BUN (test code = 19 mg/dL 7-23 9967322551) GLUCOSE (test code = 161 mg/dL 70-110 H 4684550596) CREATININE (test code = 0.51 mg/dL 0.5-1.04 3693900442) CALCIUM (test code = 9.4 mg/dL 8.6-10.6 8738386461) eGFR Calculation mL/min/1.73m2 (Non-) (test code = 5678180510) eGFR Calculation mL/min/1.73m2 () (test code = 5823701205) MADISYN (test code = MADISYN) Association of [...] tests). Lab Interpretation Abnormal (test code = 87118-7) [facility]B, T.PRO, BILI T, BU/BC, ALT, AST, ALK PHOS)2019-03-11 20:52:00 Test Item Value Reference Range Interpretation Comments TOTAL BILI (test code = 9210753905) 0.6 mg/dL 0.1-1.1 BILI UNCON (test code = 8835227540) 0.5 mg/dL 0.1-1.1 BILI CONJ (test code = 0726837969) 0.0 mg/dL 0-0.3 T PROTEIN (test code = 2438162571) 7.7 g/dL 6.3-8.2 ALBUMIN (test code = 9729742411) 4.9 g/dL 3.5-5 ALK PHOS (test code = [id number]) 61 U/L 34-122 ALT(SGPT) (test code = 2817752286) 26 U/L 9-51 AST(SGOT) (test code = 2447686357) 28 U/L 13-40 Lab Interpretation (test code = Normal 11199-2) [id number] 20:52:00 Test Item Value Reference Range Interpretation Comments LIPASE (test code = 9541428298) 22 U/L 0-220 Lab Interpretation (test code = Normal 48238-9) [facility] 20:40:00 Test Item Value Reference Range Interpretation Comments APTT Patient (test See_Comment L [Automat ed code = 3173-2) message] The system which generated this result transmitted reference range : 23 - 38 Seconds . The reference range was not used to interpr et this result as normal/abnormal . MADISYN (test code = MADISYN) The [facility] patient population mean normal value for aPTT is 30 seconds. Lab Interpretation Abnormal (test code = 72641-0) [facility] (PT[facility] / [id number] 20:38:00 Test Item Value Reference Range Interpretation [...] tions. Lab Interpretation (test Normal code = 12729-0) [facility]CBC WITH [id number] 20:33:00 Test Item Value Reference Range Interpretation Comments WBC (test code = See_Comment [Automated 6990-2) message] The sy stem which generated this result transmitted reference range : 4.30 - 11.10 10*3/?L. The reference range was not used to interpret this result as normal/abnormal . RBC (test code = See_Comment [Automated 909-8) message] The sy stem which generated this [...] RDW-SD (test code = 44.3 fL 39-49.9 07370-0) RDW-CV (test code = 12.9 % 12-15.5 788-0) PLT (test code = See_Comment [Automated 777-3) message] The sy stem which generated this result transmitted reference range : 166 - 358 10*3/ ?L. The reference r aiden was not used to interpret this result as normal/abnormal . MPV (test code = 10.9 fL 9.5-12.9 39789-2) NRBC/100 WBC (test See_Comment [Automat ed code = 8662412893) message] The system which generated this result transmitted reference range : 0.0 - 10.0 /100 WBCs. The refer ence range was not u sed to interpret th is result as normal/abnormal . NRBC x10^3 (test code <0.01 See_Comment [Auto mated = 3651814359) message] The s ystem which generated this result transmitted reference range : 10*3/?L. The reference range was not used to interpret this result as normal/abnormal . GRAN MAT (NEUT) % 86.3 % (test code = 770-8) IMM GRAN % (test code 0.50 % = 1593551364) LYMPH % (test code = 8.8 % 736-9) MONO % (test code = 4.0 % 5905-5) EOS % (test code = 0.2 % 713-8) BASO % (test code = 0.2 % 706-2) GRAN MAT x10^3(ANC) 8.24 10*3/uL 1.88-7.09 H (test code = 4630213159) IMM GRAN x10^3 (test 0.05 10*3/uL 0-0.06 code = 3991157920) LYMPH x10^3 (test code 0.84 10*3/uL 1.32-3.29 L = 731-0) MONO x10^3 (test code 0.38 10*3/uL 0.33-0.92 = 742-7) EOS x10^3 (test code = <0.03 0.03-0.39 L 711-2) BASO x10^3 (test code <0.03 0.01-0.07 = 704-7) Lab Interpretation Abnormal (test code = 26933-7) [facility]"
[2023-05-02 20:35] LABS: Absolute Lymphocytes (CBC) 2.1 K/uL (0.7-4.9); Hematocrit 31.9 % (36.0-45.0); Lymphocytes % 29.9 % (15.3-44.8); MCV 90.4 fL (80-100); MPV 8.2 fL (7.6-11.3); Platelets 279 thou/uL (152-406); RBC Red Blood Cell Count 3.53 M/uL (3.86-4.86)
--- NOTE | 2023-05-02 21:01 | RAD REPORT ---
EXAM DESCRIPTION: [facility] Single View05/02/2023 8:30 pm CLINICAL HISTORY: Dysphagia COMPARISON: March 2023 FINDINGS: The lungs appear clear of acute infiltrate. The heart is normal size IMPRESSION: No acute abnormalities displayed
[2023-05-02] MEDS ORDERED: LORazepam 2 MG/ML VIAL ONE (21:35)
[2023-05-02] MEDS ORDERED: GLUCAGON 1 MG/VIAL ONE (21:40)
[2023-05-02 21:47] LABS: Potassium 3.9 mEq/L (3.5-5.1); Troponin High Sensitivity 3.8 pg/mL (<58.9)
--- NOTE | 2023-05-03 00:16 | ER ---
Nurse's Notes [facility] Name: Dolores Pérez Age: 62 yrs Sex: Female : 1960 Arrival Date: 05/02/2023 Time: 18:29 Bed 4 Private MD: Diagnosis: Cough;Dysphagia, unspecified Presentation: 05/02 18:51 Chief complaint: Patient states: Sore throat from gagging - endoscopy Friday. ld1 Coronavirus screen: At this time, the client does not indicate any symptoms associated with coronavirus-19. Ebola Screen: No symptoms or risks identified at this time. Risk Assessment: Do you want to hurt yourself or someone else? Patient reports no desire to harm self or others. Onset of symptoms was May 02, 2023. 18:51 Method Of Arrival: Ambulatory ld1 18:51 Acuity: AARON 3 ld1 18:51 Initial Sepsis Screen: Does the patient meet any 2 criteria? No. Patient's initial ld1 sepsis screen is negative. Does the patient have a suspected source of infection? No. Patient's initial sepsis screen is negative. Triage Assessment: 18:53 General: Appears in no apparent distress. comfortable, Behavior is calm, cooperative, ld1 appropriate for age. Pain: Complains of pain in uvula, left aspect of posterior pharynx and right aspect of posterior pharynx Pain does not radiate. Pain currently is 9 out of 10 on a pain scale. Quality of pain is described as throbbing, Pain began 2-3 days ago. Is continuous. EENT: Reports pain in uvula, left aspect of posterior pharynx and right aspect of posterior pharynx. Neuro: Level of Consciousness is awake, alert, obeys commands, Oriented to person, place, time, situation. Cardiovascular: Capillary refill < 3 seconds Patient's skin is warm and dry. Respiratory: Airway is patent Respiratory effort is even, unlabored. GI: Abdomen is round non-distended. : No signs and/or symptoms were reported regarding the genitourinary system. Derm: No signs and/or symptoms reported regarding the dermatologic system. Musculoskeletal: No signs and/or symptoms reported regarding the musculoskeletal system. Historical: - Allergies: 18:53 NSAIDS; ld1 18:53 peanuts; ld1 18:53 Prednisone; ld1 18:53 sesame seed; ld1 18:53 Sulfa (Sulfonamide Antibiotics); ld1 - PMHx: 18:53 Anxiety; Asthma; COPD; depressive disorder; diabetes mellitus; High Cholesterol; ld1 Hypertension; Hypothyroidism; Transient cerebral ischemia; - Immunization history:: Adult Immunizations up to date. - Social history:: Smoking status: Patient denies any tobacco usage or history of. Patient/guardian denies using alcohol. Screenin/28 00:27 [facility] ED Fall Risk Assessment (Adult) History of falling in the last 3 months, jb4 including since admission No falls in past 3 months (0 pts) Confusion or Disorientation No (0 pts) Score/Fall Risk Level 0 - 2 = Low Risk Oriented to surroundings, Maintained a safe environment. Abuse screen: Denies threats or abuse. Nutritional screening: No deficits noted. Tuberculosis screening: No symptoms or risk factors identified. Assessment: 05/02 20:05 General: Appears in no apparent distress. comfortable, Behavior is calm, cooperative, jb4 appropriate for age. Pain: Complains of pain in throat Pain does not radiate. Pain currently is 5 out of 10 on a pain scale. Neuro: Level of Consciousness is awake, alert, obeys commands, Oriented to person, place, time, situation. Cardiovascular: Patient's skin is warm and dry. Respiratory: Airway is patent Respiratory effort is even, unlabored, Respiratory pattern is regular, symmetrical. GI: No signs and/or symptoms were reported involving the gastrointestinal system. : No signs and/or symptoms were reported regarding the genitourinary system. EENT: Throat is clear with gag reflex present, Reports Coughing when trying to swallow food and/or water.. Derm: Skin is intact, Skin is pink, warm \T\ dry. 21:06 Reassessment: Patient appears in no apparent distress at this time. Patient and/or jb4 family updated on plan of care and expected duration. Pain level reassessed. Patient is alert, oriented x 3, equal unlabored respirations, skin warm/dry/pink. 22:00 Reassessment: Patient appears in no apparent distress at this time. Patient and/or jb4 family updated on plan of care and expected duration. Pain level reassessed. Patient is alert, oriented x 3, equal unlabored respirations, skin warm/dry/pink. 23:00 Reassessment: Patient appears in no apparent distress at this time. Patient and/or jb4 family updated on plan of care and expected duration. Pain level reassessed. Patient is alert, oriented x 3, equal unlabored respirations, skin warm/dry/pink. 05/03 00:02 Reassessment: Patient appears in no apparent distress at this time. Patient and/or jb4 family updated on plan of care and expected duration. Pain level reassessed. Patient is alert, oriented x 3, equal unlabored respirations, skin warm/dry/pink. Vital Signs: 05/02 18:51 Weight 54.88 kg; Height 5 ft. 7 in. ; Pain 9/10; ld1 18:55 BP 138 / 73; Pulse 72; Resp 18; Temp 98.2(TE); ld1 18:55 Pulse Ox 100% on R/A; ld1 21:06 BP 153 / 98; Pulse 92; Resp 17; Pulse Ox 99% on R/A; jb4 21:48 BP 147 / 71; Pulse 66; Resp 17; Pulse Ox 98% on R/A; jb4 22:39 BP 138 / 69; Pulse 69; Resp 16; Pulse Ox 96% on R/A; jb4 23:30 BP 139 / 68; Pulse 67; Resp 16; Pulse Ox 98% on R/A; jb4 18:51 Body Mass Index 18.95 (54.88 kg, 170.18 cm) ld1 18:51 Pain Scale: Adult ld1 ED Course: 18:33 Patient arrived in ED. ts1 18:52 Triage completed. ld1 18:53 Arm band placed on right wrist. ld1 18:57 [facility] cp 18:57 Feng Tian MD is Attending Physician. cp 20:09 Breanna Jacobo, JADEN is Primary Nurse. me1 20:32 XRAY Chest (1 view) In Process Unspecified. EDMS 20:37 Missed attempt(s): 22 gauge in right antecubital area. Bleeding controlled, band aid kmf applied, catheter tip intact. 20:39 Inserted saline lock: 22 gauge in right wrist, using aseptic technique. Blood collected.kmf 23:00 CT Soft Tissue Neck W/contr In Process Unspecified. EDMS 23:00 CT Chest W/ Con In Process Unspecified. EDMS 05/03 00:15 Gertrude Dior MD is Referral Physician. cp 00:27 Patient has correct armband on for positive identification. Bed in low position. Call jb4 light in reach. Side rails up X 1. 00:27 No provider procedures requiring assistance completed. IV discontinued, intact, jb4 bleeding controlled, No redness/swelling at site. Pressure dressing applied. Administered Medications: 05/02 21:25 Drug: Ativan IVP 0.5 mg IVP once Route: IVP; Site: right forearm; jb4 21:38 Drug: Glucagon IVP 1 mg IVP once Route: IVP; Site: right forearm; jb4 Outcome: 05/03 00:15 Discharge ordered by MD. cp 00:27 Discharged to home ambulatory, jb4 00:27 Condition: stable 00:27 Discharge instructions given to patient, Instructed on discharge instructions, follow up and referral plans. medication usage, Demonstrated understanding of instructions, follow-up care, medications, Prescriptions given X 2, 00:28 Patient left the ED. jb4 Signatures: Dispatcher [employer] EDMS Feng Pope PA PA cp Bryson, James, JADEN STANLEY jb4 Cornelia Yi RN RN ld1 Uma Acharya PAS PAS ts1 Breanna Jacobo RN RN me1 Yanci Logan [facility] Corrections: (The following items were deleted from the chart) 05/02 18:54 18:51 BP 149 / 76; Pulse 82bpm; Resp 18bpm; Pulse Ox 99% RA; Temp 98.2F Temporal; 54.88 ld1 kg; Height 5 ft. 7 in.; BMI: 18.9; Pain 0/10, Adult; ld1 21:48 20:05 EENT: No signs and/or symptoms were reported regarding the EENT system. Throat is jb4 clear with gag reflex present, jb4
--- NOTE | 2023-05-03 00:16 | EDPHYS ---
Physician Documentation [facility] Name: Dolores Pérez Age: 62 yrs Sex: Female : 1960 Arrival Date: 05/02/2023 Time: 18:29 Bed 4 Private MD: ED Physician Feng Tian HPI: 05/02 20:00 This 62 yrs old Female presents to ER via Ambulatory with complaints of Sore Throat. cp 20:00 The patient presents with sore throat. cp 20:00 The patient describes throat pain as raw. Onset: The symptoms/episode began/occurred 4 cp day(s) ago. Associated signs and symptoms: Pertinent positives: cough, dysphagia, Pertinent negatives chest pain, fever, flu-like symptoms, vomiting. Historical: - Allergies: 18:53 NSAIDS; ld1 18:53 peanuts; ld1 18:53 Prednisone; ld1 18:53 sesame seed; ld1 18:53 Sulfa (Sulfonamide Antibiotics); ld1 - PMHx: 18:53 Anxiety; Asthma; COPD; depressive disorder; diabetes mellitus; High Cholesterol; ld1 Hypertension; Hypothyroidism; Transient cerebral ischemia; - Immunization history:: Adult Immunizations up to date. - Social history:: Smoking status: Patient denies any tobacco usage or history of. Patient/guardian denies using alcohol. ROS: 20:05 Constitutional: Negative for body aches, chills, fever, poor PO intake, cp 20:05 Cardiovascular: Negative for chest pain, edema, palpitations, cp 20:05 Eyes: Negative for injury, pain, redness, and discharge, cp 20:05 Constitutional: Negative for weight loss, 20:05 ENT: Positive for difficulty swallowing, sore throat, Negative for drainage from ear(s), ear pain, difficulty handling secretions, 20:05 Respiratory: Positive for cough, "sounds productive", Negative for wheezing, 20:05 Abdomen/GI: Negative for vomiting, diarrhea, constipation, 20:05 Back: Negative for pain at rest, pain with movement, 20:05 Neuro: Negative for altered mental status, dizziness, headache, numbness, syncope, weakness, 20:05 All other systems are negative, Exam: 20:10 Constitutional: The patient appears in no acute distress, alert, awake, cp 20:10 Head/Face: Normocephalic, atraumatic. cp 20:10 Eyes: Periorbital structures: appear normal, Conjunctiva: normal, no exudate, no cp injection, Sclera: no appreciated abnormality, Lids and lashes: appear normal, bilaterally, 20:10 ENT: External ear(s): are unremarkable, Ear canal(s): are normal, clear, TM's: bulging, is not appreciated, bilaterally, dullness, bilaterally, erythema, is not appreciated, bilaterally, Nose: is normal, Mouth: Lips: moist, Oral mucosa: moist, Posterior pharynx: Airway: no evidence of obstruction, patent, swelling, is not appreciated, erythema, that is mild, exudate, is not appreciated, Voice: is normal, 20:10 Neck: ROM/movement: is normal, is supple, without pain, no range of motions limitations, no meningismus, Lymph nodes: no appreciated lymphadenopathy, 20:10 Chest/axilla: Inspection: normal, 20:10 Cardiovascular: Rate: normal, Rhythm: regular, 20:10 Respiratory: the patient does not display signs of respiratory distress, Respirations: normal, no use of accessory muscles, no retractions, labored breathing, is not present, Breath sounds: are clear throughout, no decreased breath sounds, no stridor, no wheezing, 20:10 Abdomen/GI: Inspection: abdomen appears normal, Palpation: abdomen is soft and non-tender, in all quadrants, 20:10 Back: pain, is absent, ROM is normal, 20:10 Skin: cellulitis, is not appreciated, no rash present. 20:10 Neuro: Orientation: to person, place \\T\\ time. Mentation: is normal, Motor: moves all fours, strength is normal, 21:05 ECG was reviewed by the Attending Physician. cp Vital Signs: 18:51 Weight 54.88 kg; Height 5 ft. 7 in. ; Pain 9/10; ld1 18:55 BP 138 / 73; Pulse 72; Resp 18; Temp 98.2(TE); ld1 18:55 Pulse Ox 100% on R/A; ld1 21:06 BP 153 / 98; Pulse 92; Resp 17; Pulse Ox 99% on R/A; jb4 21:48 BP 147 / 71; Pulse 66; Resp 17; Pulse Ox 98% on R/A; jb4 22:39 BP 138 / 69; Pulse 69; Resp 16; Pulse Ox 96% on R/A; jb4 23:30 BP 139 / 68; Pulse 67; Resp 16; Pulse Ox 98% on R/A; jb4 18:51 Body Mass Index 18.95 (54.88 kg, 170.18 cm) ld1 18:51 Pain Scale: Adult ld1 MDM: 18:57 Patient medically screened. 20:00 Differential diagnosis: apthous stomatitis, apthous ulcer, shaun-dean virus, group A cp strep tonsillitis, laryngitis, peritonsillar abscess retropharyngeal abcess tonsillitis, uvulitis. 05/03 00:15 Data reviewed: vital signs, nurses notes, lab test result(s), EKG, radiologic studies, cp CT scan, plain films. 00:15 I considered the following discharge prescriptions or medication management in the emergency department Medications were administered in the Emergency Department. See MAR. Independent interpretation of the following test(s) in the Emergency Department EKG: See my EKG interpretation above. Care significantly affected by the following chronic conditions: Diabetes, Hypertension, Chronic Obstructive Pulmonary Disease. Counseling: I had a detailed discussion with the patient and/or guardian regarding the historical points, exam findings, and any diagnostic results supporting the discharge/admit diagnosis, lab results, radiology results, the need for outpatient follow up, for definitive care, a felt washing machine tender, to return to the emergency department if symptoms worsen or persist or if there are any questions or concerns that arise at home. Response to treatment: the patient's symptoms have mildly improved after treatment, cough improved, patient observed tolerating po fluids. Will discharge to home for continued monitoring. 05/02 19:50 Order name: Strep; Complete Time: 21:02 05/03 00:09 Interpretation: Reviewed. 05/02 19:50 Order name: Basic Metabolic Panel; Complete Time: 00:09 05/03 00:09 Interpretation: Normal except: NA 132; GLUC 120. 05/02 19:50 Order name: CBC with Diff; Complete Time: 21:02 05/02 21:03 Interpretation: Normal except: RBC 3.53; HGB 11.4; HCT 31.9; EOSINOPHIL % 4.6. 05/02 19:50 Order name: Troponin HS; Complete Time: 00:09 05/03 00:09 Interpretation: Troponin HS 3.8; Reviewed. cp 05/02 20:59 Order name: Throat Culture EDMS 05/02 19:50 Order name: XRAY Chest (1 view); Complete Time: 21:02 cp 05/02 21:36 Order name: CT Soft Tissue Neck W/contr cp 05/02 21:36 Order name: CT Chest W/ Con cp 05/02 19:50 Order name: EKG; Complete Time: 19:51 cp 05/02 19:50 Order name: Cardiac monitoring; Complete Time: 20:49 cp 05/02 19:50 Order name: EKG - Nurse/Tech; Complete Time: 21:07 cp 05/02 19:50 Order name: IV Saline Lock; Complete Time: 20:49 cp 05/02 19:50 Order name: Labs collected and sent; Complete Time: 20:49 cp 05/02 19:50 Order name: O2 Per Protocol; Complete Time: 20:49 cp 05/02 19:50 Order name: O2 Sat Monitoring; Complete Time: 20:49 cp EC/27 21:05 Rate is 66 beats/min. Rhythm is regular. SC interval is normal. QRS interval is normal. cp QT interval is normal. T waves are Inverted in lead aVR. Interpreted by me. Reviewed by me. Administered Medications: 21:25 Drug: Ativan IVP 0.5 mg IVP once Route: IVP; Site: right forearm; jb4 21:38 Drug: Glucagon IVP 1 mg IVP once Route: IVP; Site: right forearm; jb4 Disposition Summary: 05/03/23 00:15 Discharge Ordered Notes: Location: Home cp Problem: an ongoing problem cp Symptoms: have improved cp Condition: Stable cp Diagnosis - Cough cp - Dysphagia, unspecified cp Followup: cp - With: Gertrude Dior MD - When: 2 - 3 days - Reason: Recheck today's complaints Discharge Instructions: - Discharge Summary Sheet cp - Dysphagia cp - Barium Swallow cp - Cough, Adult cp Forms: - Medication Reconciliation Form cp - Thank You Letter cp - Antibiotic Education cp - Prescription Opioid Use cp - Patient Portal Instructions cp - Leadership Thank You Letter cp Prescriptions: - Bromfed DM 2-30-10 mg/5 mL Oral syrup - administer 10 milliliter ORAL route every 6 hours As needed; 180 milliliter; cp Refills: 0, Product Selection Permitted - Zofran 4 mg Oral Tablet - take 1 tablet ORAL route every 12 hours As needed; 20 tablet; Refills: 0, cp Product Selection Permitted Signatures: Dispatcher [employer] Feng Lawrence PA PA cp Bryson, James RN RN jb4 Cornelia Yi RN RN ld1
[2023-05-03 00:34] VITALS: TEMP 98.2
[2023-05-03 00:41] VITALS: BP 139/68; O2SAT 98
--- NOTE | 2023-05-03 20:12 | RAD REPORT ---
EXAM DESCRIPTION: CT - Soft Tissue Neck W/Contr - 05/03/2023 6:53 am CLINICAL HISTORY: Dysphagia. COMPARISON: Neck from February 11, 2023. TECHNIQUE: CT of the neck was performed following intravenous administration of iodinated contrast. Axial, coronal, and sagittal reconstructions were created and sent to PACS. This exam was performed according to our departmental dose-optimization program, which includes autom ated exposure control, adjustment of the mA and/or kV according to patient size and/or use of iterati ve reconstruction technique. FINDINGS: Unremarkable appearance of the upper esophagus. No foreign object identified.. The airway is patent. No fluid collections identified. No lymphadenopathy. Specifically, no retropharyngeal flui d collection. No edema or fluid collection involving the floor of the mouth. No epiglottic thickening . The visualized paranasal sinuses and mastoid air cells are clear. Unremarkable appearance of the vi sualized portions of the brain parenchyma. Unremarkable appearance of the orbital contents. Unremarka ble appearance of the thyroid gland. No acute findings in the lung apices. No concerning osseous abno rmality identified. IMPRESSION: No acute abnormality identified. Electronically signed by: Jewell Martino MD 05/02/2023 11:10 PM CDT Due to temporary technical issues with the PACS/Fluency reporting system, reports are being signed by the in house radiologists without review as a courtesy to insure prompt reporting. The interpreting radiologist is fully responsible for the content of the report.
--- NOTE | 2023-05-03 20:14 | RAD REPORT ---
EXAM DESCRIPTION: CT - Thorax W/ Con - 05/03/2023 6:53 am CLINICAL HISTORY: 62 years Female, dysphagia TECHNIQUE: Helical CT axial images of the thorax with IV contrast. Multiplanar reconstruction. Thi s exam was performed according to our departmental dose-optimization program, which includes automate d exposure control, adjustment of the mA and/or kV according to patient size and/or use of iterative reconstruction technique. COMPARISON: CTA chest January 29, 2023 FINDINGS: LUNGS: The lung parenchyma is clear. No pulmonary masses or suspicious nodules. MEDIASTINUM: Tiny hiatal hernia. No abnormally enlarged mediastinal or hilar lymph nodes. PLEURA: No pleural effusion. No pneumothorax. CARDIAC: Normal heart size. No pericardial effusion. VASCULAR: Thoracic aorta is normal in caliber without aneurysm. The pulmonary vasculature demonstrate s no significant dilatation. CHEST WALL: Chest wall is intact. No abnormal axillary lymphadenopathy. BONES: No suspicious osseous lytic or blastic lesions seen. UPPER ABDOMEN: The visualized upper abdomen demonstrates no acute abnormality. IMPRESSION: 1. No acute cardiopulmonary disease. 2. Tiny hiatal hernia. Electronically signed by: Camilo Ricci MD 05/02/2023 11:13 PM CDT Due to temporary technical issues with the PACS/Fluency reporting system, reports are being signed by the in house radiologists without review as a courtesy to insure prompt reporting. The interpreting radiologist is fully responsible for the content of the report.
--- NOTE | 2023-05-06 08:01 | EKG ---
Test Date: 2023-05-02 Test Time: 20:58:44 Packaging Operator: JOSE RAFAEL MEASUREMENT RESULTS: Intervals: Rate: 66 UT: 190 QRSD: 96 QT: 424 QTc: 444 [place]: P: 76 UT: 190 QRS: 57 T: 62 INTERPRETIVE STATEMENTS: Normal sinus rhythm Normal ECG Compared to ECG 03/09/2023 17:39:02 ST (T wave) deviation no longer present Electronically Signed On 05-06-23 07:53:53 CDT by Stephen Childress
== END 2023-05-03 00:28 | disposition home or self-care (01) ==
LOC: ER 18:29
DX: R05.9 Cough, unspecified (principal); R13.10 Dysphagia, unspecified; R07.0 Pain in throat; Z88.2 Allergy status to sulfonamides; Z88.6 Allergy status to analgesic agent; Z91.010 Allergy to peanuts; Z91.018 Allergy to other foods
CPT/HCPCS: 93005; 87070; 85025; 80048; 36415; 87081; 84484; 71260; 70491; 71045; 96375; 96374; 99284; Q9967; J1610

== ENCOUNTER 2023-05-07 17:52 | Emergency (ER) | payer OTHER ==
--- OUTSIDE RECORDS SUMMARY | 2023-05-07 17:58 | XMS REPORT | Continuity of Care Document ---
:1960 Author Organization [facility] t Address [address] [facility] [address] [place] [address] Care Team Providers Name Role Phone PAULINA DUNHAM Primary Care Physician Unavailable Neida DUGGAN Attending Clinician Unavailable Neida Jiménez Attending Clinician Susan Rodriguez Attending Clinician Unknown, Attending Attending Clinician Unavailable SUSAN LEE Attending Clinician Unavailable Doctor Unassigned, [place] Attending Clinician Unavailable Only, Ang Db Test Attending Clinician Unavailable Monik Charles MD Attending Clinician MONIK CHARLES Attending Clinician Unavailable ALEX OCONNELL Attending Clinician Unavailable [place] Alarcon Attending Clinician SHERRILL CONNOR Attending Clinician [...] Effective Date Expiration Date Teodora FALK II [id number] 2016 00:00:00 Problems Condition Condition Condition Status [...] ity of 00:00: [place] 00 Medical Branch [employer] [employer] Active Anaphylaxis Uni vers ty to [...] to 4-10 ity of mide adverse 00:00: [place] Antibiot reaction 00 Medica l ics) s Branch Social History Social Habit Start Date Stop Date Quantity Comments Source Gender identity [facility] of Social 2023-02-26 2023-02-26 Univers ity of function 00:00:00 00:00:00 [facility] Exposure to 2022-08-14 2022-08-24 Not sure [facility] SARS-CoV-2 (event) 00:00:00 09:35:00 [facility] Tobacco use and 2022-08-24 2022-08-24 Smokeless Universit y of exposure 00:00:00 00:00:00 tobacco non-user [facility] Sex Assigned At [birth year] Universit y of 00:00:00 00:00:00 [facility] Smoking Status Start Date Stop Date Source Never smoked tobacco [facility] Medications Ordered Filled Start Stop Current Ordering Indication Dosage Frequency Signature Comments Components Source Medication Medication Date Date Medication? Clinician (SIG) Name Name bromphenira Yes [id number] 5mL Take 5 mL Univers mine-pseudo 2-18 by mouth 4 it y of ephedrine-D 00:00[place] (four[place] (BROMFED 00 times Medical DM) 2-30-10 daily as Bran ch mg/5 mL needed for syrup Congestion /Allergies . bromphenira Yes [id number] 5mL Take 5 mL Univers mine-pseudo 2-18 by mouth 4 it y of ephedrine-D 00:00: (four[place] (BROMFED 00 times Medical DM) 2-30-10 daily as Bran ch mg/5 mL needed for syrup Congestion /Allergies . benzonatate Yes [id number] 100mg Take 1 Univers 100 mg 7-03 capsule by ity of capsule 00:00: mouth 3 [place] 00 (three) Medical times [place] daily as needed for Cough. loratadine Yes [id number] 10mg Take 1 U nivers (CLARITIN) 7-03 tablet by ity of 10 mg 00:00: mouth at [place] tablet 00 bedtime as Medical needed for Branch Allergies. benzonatate 2022-0 Yes [id number] 100mg Take 1 Univers 100 mg 7-03 capsule by ity of capsule 00:00: mouth 3 [place] 00 (three) Medical times Branch daily as needed for Cough. loratadine 2-0 Yes [id number] 10mg Take 1 U nivers (CLARITIN) 7-03 tablet by ity of 10 mg 00:00: mouth at [place] tablet 00 bedtime as Medical needed for Branch Allergies. benzonatate 2-0 Yes [id number] 100mg Take 1 Univers 100 mg 7-03 capsule by ity of capsule 00:00: mouth 3 [place] 00 (three) Medical times Branch daily as needed for Cough. loratadine 2-0 Yes [id number] 10mg Take 1 U nivers (CLARITIN) 7-03 tablet by ity of 10 mg 00:00: mouth at [place] tablet 00 bedtime as Medical needed for Branch Allergies. benzonatate 2-0 Yes [id number] 100mg Take 1 Univers 100 mg 7-03 capsule by ity of capsule 00:00: mouth 3 (three) Medical times Branch daily as needed for Cough. loratadine 2-0 Yes [id number] 10mg Take 1 U nivers (CLARITIN) 7-03 tablet by ity of 10 mg 00:00: mouth at [place] tablet 00 bedtime as Medical needed for Branch Allergies. benzonatate 2-0 Yes [id number] 100mg Take 1 Univers 100 mg 7-03 capsule by ity of capsule 00:00: mouth 3 00 (three) Medical times Branch daily as needed for Cough. loratadine 2-0 Yes [id number] 10mg Take 1 U nivers (CLARITIN) 7-03 tablet by ity of 10 mg 00:00: mouth at [place] tablet 00 bedtime as Medical needed for Branch Allergies. benzonatate 2022-0 Yes [id number] 100mg Take 1 Univers 100 mg 7-03 capsule by ity of capsule 00:00: mouth 3 [place] 00 (three) Medical times Branch daily as needed for Cough. loratadine 2022-0 Yes [id number] 10mg Take 1 U nivers (CLARITIN) 7-03 tablet by ity of 10 mg 00:00: mouth at [place] tablet 00 bedtime as Medical needed for Branch Allergies. benzonatate 2021-0 Yes [id number] 100mg Take 1 Univers 100 mg 2-01 capsule by ity of capsule 00:00: mouth 3 (three) Medical times Branch daily as needed for Cough. benzonatate 2021-0 Yes [id number] 100mg Take 1 Univers 100 mg 2-01 capsule by ity of capsule 00:00: mouth 3 (three) Medical times Branch daily as needed for Cough. benzonatate 2021-0 Yes [id number] 100mg Take 1 Univers 100 mg 2-01 capsule by ity of capsule 00:00: mouth (three) Medical times Branch daily as needed for Cough. benzonatate 2021-0 Yes [id number] 100mg Take 1 Univers 100 mg 2-01 capsule by ity of capsule 00:00: mouth (three) Medical times Branch daily as needed for Cough. benzonatate 2021-0 Yes [id number] 100mg Take 1 Univers 100 mg 2-01 capsule by ity of capsule 00:00: mouth (three) Medical times Branch daily as needed for Cough. benzonatate 2021-0 Yes [id number] 100mg Take 1 Univers 100 mg 2-01 capsule by ity of capsule 00:00: mouth (three) Medical times Branch daily as needed for Cough. benzonatate 2021-0 Yes [id number] 100mg Take 1 Univers 100 mg 2-01 capsule by ity of capsule 00:00: mouth (three) Medical times Branch daily as needed for Cough. benzonatate 2021-0 Yes [id number] 100mg Take 1 Univers 100 mg 2-01 capsule by ity of capsule 00:00: mouth (three) Medical times Branch daily as needed for Cough. benzonatate 2021-0 Yes [id number] 100mg Take 1 Univers 100 mg 2-01 capsule by ity of capsule 00:00: mouth (three) Medical times Branch daily as needed for Cough. benzonatate 2-0 Yes [id number] 100mg Take 1 Univers 100 mg 2-01 [...] Therapy: Other (see Comments) iopamidol 2020-07- No [id number] 120mL 120 mL, Univers (ISOVUE 2-25 12-24 Intravenou ity o f 370-500 mL) 00:15: 23:08 s, ONCE, 1 [place] injection 00 :00 dose, On Medica l 120 mL Fri Branch 06/29/21 at 1815, Routine amoxicillin 2020-07- No [id number] 1{tbl} Take 1 Univers -clavulanat 2-24 -04 [...] Indication s: acute pain ondansetron 2020-07- No [id number] 4mg Take 1 Univers 4 mg tablet 2-24 12-30 tablet by it y of 00:00: 05:59 mouth [place] 00 :00 every 8 Medical (eight) Branch hours for 5 days. atorvastati 2020-07 Yes 10mg 10 mg, Univ ers n (LIPITOR) 1-15 Oral, QHS, it y of tablet 10 03:00: First dose [place] mg 00 on [facility] 05/20/21 Branch at 2100, Until Discontinu ed, Routine atorvastati 2020-07 Yes 10mg Take 10 mg Univers n 10 mg 1-14 by mouth ity of tablet 17:23: at [place] 01 bedtime. Medical Branch spironolact 2020-07 Yes [...] 40 mg 00 First dose Medical on [facility] 05/20/21 at 0900, Until Discontinu ed, Routine clopidogreL 2020-07 Yes 75mg 75 mg, Univ ers (PLAVIX) 1-14 Oral, QAM, ity o f tablet 75 15:00: First dose [place] mg 00 on [facility] 05/20/21 Branch at 0900, Until Discontinu ed, Routine ALPRAZolam 2020-07 Yes .5mg 0.5 mg, Univ ers (XANAX) 1-14 Oral, ity of tablet 0.5 15:00: DAILY, [place] mg 00 First dose Medical on [facility] 05/20/21 at 0900, Until Discontinu ed, Routine spironolact 2020-07 Yes 25mg 25 mg, Univ ers one 1-14 Oral, BID, ity of (ALDACTONE) 14:00: First dose [place] tablet 25 00 on [facility] mg 05/20/21 Branch at 0800, Until Discontinu ed, Routine Sliding 2020-07 Yes Subcutaneo Univ ers Scale 1-14 us, AC, ity of Insulin-Reg 13:30: First dose [place] ular + Fsbg 00 on [facility]21 Branch at 0730, Until Discontinu ed, Routine levothyroxi 2020-07 Yes 100ug 100 mcg, U nivers ne 1-14 Oral, ity of (SYNTHROID) 12:00: QAM-0600, [place] tablet 100 00 First dose Med ical mcg on [facility] 05/20/21 at 0600, Until Discontinu ed, Routine pantoprazol 2020-07 Yes 40mg 40 mg, Univ ers e 1-14 Oral, ity of (PROTONIX) 06:30: DAILY, [place] EC tablet 00 First dose Medi hermelindo 40 mg (after Branch last modificati on) on [place] 05/20/21 at 0030, Until Discontinu ed cyclobenzap 2020-07 Yes 10mg 10 mg, Univ ers rine 1-14 Oral, ity of (FLEXERIL) 06:12: TIDPRN, [place] tablet 10 13 Starting Medica l mg on [facility] 05/20/21 at 0012, Until Discontinu ed, Routine, Muscle Spasms, leg pain polyethylen 2020-07 Yes 17g 17 g, Unive rs e glycol 1-14 Oral, ity of 3350 powder 06:04: [id number], [place] 17 g 16 Starting Medical on [facility] 05/20/21 at 0004, Until Discontinu ed, Routine, Constipati on glucagon 2020-07 Yes 1mg 1 mg, Univers (GLUCAGEN -14 Intramuscu ity of DIAGNOSTIC 05:29: lar, PRN, [place] KIT) 29 Starting Medical injection 1 on [facility] 05/19/21 at 2329, Until Discontinu ed, JEFFREY, Blood Glucose < or = 70 mg/dL and patient is unable to swallow or has mental changes. dextrose 50 2020-07 Yes 25mL 25 mL, Univ ers % in water 14 Slow IV ity of (D50W) 05:29: Push, PRN, [place] injection 29 Starting Medica l 25 mL on [facility] 05/19/21 at 2329, Until Discontinu ed, JEFFREY, Blood Glucose < or = 70 mg/dL and patient is unable to swallow or has mental status changes. ondansetron 2020-07 Yes 4mg 4 mg, Slow Univers (ZOFRAN 1-14 IV Push, ity of (PF)) 05:29: Q6HPRN, [place] injection 4 21 Starting Medi hermelindo mg on [facility] 05/19/21 at 2329, Until Discontinu ed, Routine, Nausea and Vomiting (N/V) morpHINE 2020-07 No 2mg 2 mg, Slow Un brice injection 2 14 11-15 IV Push, ity of mg 05:29: 05:28 Q4HPRN, [place] 11 :11 Starting Medical on [facility] Branch 05/19/21 at 2329, Until 05/20/21 at 2328, Routine, Pain (scale 7-10), Chest pain traMADoL 2020-07- No 50mg 50 mg, Univer s (ULTRAM) 07-2016 Oral, ity of tablet 50 05:29: 05:28 Q8HPRN, [place] mg 08 :08 Starting Medical on [facility] Branch 05/19/21 at 2329, Until 05/21/21 at 2328, Routine, Pain (scale 4-6) acetaminoph 2020-07 Yes 650mg 650 mg, Un brice en 14 Oral, ity of (TYLENOL) 05:29: Q6HPRN, [place] tablet 650 05 Starting Medic al mg on [facility] Branch 05/19/21 at 2329, Until Discontinu ed, Routine, Pain (scale 1-3) omeprazole 2020-07- No 20mg Take 20 mg Univers 20 mg 07-19 by mouth ity of capsule 23:30: 00:00 daily. [place] 33 :[address] [facility] guaiFENesin 2020- No 100mg 100 mg, U nivers 100 mg/5 mL 09-14 Oral, ity of solution 05:00: 16:59 ONCE, 1 [place] 100 mg 00 :00 dose, Fri [facility] 09/13/20 at Branch 2300, Routine ketorolac 2020- No 30mg 30 mg, Unive rs (TORADOL) 09-1411 Slow IV ity of injection 03:30: 02:27 Push, [place] 30 mg 00 :00 ONCE, 1 Medical dose, [facility] 09/13/20 at 2130, JEFFREY
Fa culty member approving Restricted medication : DIANA BERG benzonatate Yes [id number] 100mg Take 1 Univers 100 mg 3-10 capsule by ity of capsule 00:00: mouth 3 [place] 00 (three) Medical times Branch daily as needed for Cough. benzonatate Yes [id number] 100mg Take 1 Univers 100 mg 3-10 capsule by ity of capsule 00:00: mouth 3 [place] 00 (three) Medical times Branch daily as needed for Cough. benzonatate 2020- No [id number] 100mg Take 1 Univers 100 mg 09-13- [...] 10 1929, JEFFREY mL codeine-gua 2019-0 Yes [id number] 10mL Take 10 mL Univers ifenesin -21 by mouth ity of 10-100 mg/5 00:00: every 6 [place] as mL solution 00 (six) Medical hours as Branch needed for Cough. albuterol 2020-0 Yes [id number] 2.5mg Inhale 3 Univers 2.5 mg /3 1-21 mL every 4 ity of mL (0.083 00:00: (four) [place] %) 00 hours as Medical nebulizer needed for Bran ch solution Wheezing or Shortness of Breath. May also nebulize one extra every 6 hours. albuterol 2020-0 Yes [id number] 2.5mg Inhale 3 Univers 2.5 mg /3 1-21 mL every 4 ity of mL (0.083 00:00: (four) [place] %) 00 hours as Medical nebulizer needed for Bran ch solution Wheezing or Shortness of Breath. May also nebulize one extra every 6 hours. albuterol 2020-0 Yes [id number] 2.5mg Inhale 3 Univers 2.5 mg /3 1-21 mL every 4 ity of mL (0.083 00:00: (four) [place] %) 00 hours as Medical nebulizer needed for Bran ch solution Wheezing or Shortness of Breath. May also nebulize one extra every 6 hours. albuterol 2020-0 Yes [id number] 2.5mg Inhale 3 Univers 2.5 mg /3 1-21 mL every 4 ity of mL (0.083 00:00: (four) [place] %) 00 hours as Medical nebulizer needed for Bran ch solution Wheezing or Shortness of Breath. May also nebulize one extra every 6 hours. albuterol 2020-0 Yes [id number] 2.5mg Inhale 3 Univers 2.5 mg /3 1-21 mL every 4 ity of mL (0.083 00:00: (four) [place] %) 00 hours as Medical nebulizer needed for Bran ch solution Wheezing or Shortness of Breath. May also nebulize one extra every 6 hours. albuterol 2020-0 Yes [id number] 2.5mg Inhale 3 Univers 2.5 mg /3 1-21 mL every 4 ity of mL (0.083 00:00: ([facility]) [place] %) 00 hours as Medical nebulizer needed for Bran ch solution Wheezing or Shortness of Breath. May also nebulize one extra every 6 hours. albuterol 2020-0 Yes [id number] 2.5mg Inhale 3 Univers 2.5 mg /3 1-21 mL every 4 ity of mL (0.083 00:00: (four) [place] %) 00 hours as Medical nebulizer needed for Bran ch solution Wheezing or Shortness of Breath. May also nebulize one extra every 6 hours. albuterol 2020-0 Yes [id number] 2.5mg Inhale 3 Univers 2.5 mg /3 1-21 mL every 4 ity of mL (0.083 00:00: (four) [place] %) 00 hours as Medical nebulizer needed for Bran ch solution Wheezing or Shortness of Breath. May also nebulize one extra every 6 hours. albuterol 2020-0 Yes [id number] 2.5mg Inhale 3 Univers 2.5 mg /3 1-21 mL every 4 ity of mL (0.083 00:00: (four) [place] %) 00 hours as Medical nebulizer needed for Bran ch solution Wheezing or Shortness of Breath. May also nebulize one extra every 6 hours. albuterol 2020-0 Yes [id number] 2.5mg Inhale 3 Univers 2.5 mg /3 1-21 mL every 4 ity of mL (0.083 00:00: (four) [place] %) 00 hours as Medical nebulizer needed for Bran ch solution Wheezing or Shortness of Breath. May also nebulize one extra every 6 hours. albuterol 2020-0 Yes [id number] 2.5mg Inhale 3 Univers 2.5 mg /3 1-21 mL every 4 ity of mL (0.083 00:00: (four) [place] %) 00 hours as Medical nebulizer needed for Bran ch solution Wheezing or Shortness of Breath. May also nebulize one extra every 6 hours. albuterol 2020-0 Yes [id number] 2.5mg Inhale 3 Univers 2.5 mg /3 1-21 mL every 4 ity of mL (0.083 00:00: (four) [place] %) 00 hours as Medical nebulizer needed for Bran ch solution Wheezing or Shortness of Breath. May also nebulize one extra every 6 hours. albuterol 2020-0 Yes [id number] 2.5mg Inhale 3 Univers 2.5 mg /3 1-21 mL every 4 ity of mL (0.083 00:00: (four) [place] %) 00 hours as Medical nebulizer needed for Bran ch solution Wheezing or Shortness of Breath. May also nebulize one extra every 6 hours. albuterol 2020-0 Yes [id number] 2.5mg Inhale 3 Univers 2.5 mg /3 1-21 mL every 4 ity of mL (0.083 00:00: (four) [place] %) 00 hours as Medical nebulizer needed for Bran ch solution Wheezing or Shortness of Breath. May also nebulize one extra every 6 hours. albuterol 2020-0 Yes [id number] 2.5mg Inhale 3 Univers 2.5 mg /3 1-21 mL every 4 ity of mL (0.083 00:00: (four) [place] %) 00 hours as Medical nebulizer needed for Bran ch solution Wheezing or Shortness of Breath. May also nebulize one extra every 6 hours. albuterol 2020-0 Yes [id number] 2.5mg Inhale 3 Univers 2.5 mg /3 1-21 mL every 4 ity of mL (0.083 00:00: (four) [place] %) 00 hours as Medical nebulizer needed for Bran ch solution Wheezing or Shortness of Breath. May also nebulize one extra every 6 hours. codeine-gua 2020- No [id number] 10mL Take 10 mL Univers ifenesin 07-27 [...] 03/11/19 at 1430, JEFFREY dicyclomine 2018- Yes [id number] 10mg Take 1 Univers (BENTYL) 10 9-05 capsule by it y of mg capsule 00:00: mouth 4 [place] 00 (four) Medical times Branch daily. ondansetron 2018- Yes [id number] 4mg Take 1 Univers 4 mg 9-05 tablet by ity of disintegrat 00:00: mouth [place] ing tablet 00 every 4 Medica l (four) Branch hours as needed for Nausea and Vomiting (N/V). dicyclomine 2019-0 Yes [id number] 10mg Take 1 Univers (BENTYL) 10 9-05 capsule by it y of mg capsule 00:00: mouth 4 [place] 00 (four) Medical times Branch daily. ondansetron 2019-0 Yes [id number] 4mg Take 1 Univers 4 mg 9-05 tablet by ity of disintegrat 00:00: mouth [place] ing tablet 00 every 4 Medica l (four) Branch hours as needed for Nausea and Vomiting (N/V). dicyclomine 2019-0 Yes [id number] 10mg Take 1 Univers (BENTYL) 10 9-05 capsule by it y of mg capsule 00:00: mouth 4 [place] 00 (four) Medical times Branch daily. ondansetron Yes [id number] 4mg Take 1 Univers 4 mg 9-05 tablet by ity of disintegrat 00:00: mouth [place] ing tablet 00 every 4 Medica l (four) Branch hours as needed for Nausea and Vomiting (N/V). dicyclomine 2020- No [id number] 10mg Take 1 Univers (BENTYL) 10 9-05 03-10 capsule by i ty of mg capsule 00:00: 00:00 mouth 4 [place] as 00 :00 (four) Medical times Branch daily. ondansetron 2020- No [id number] 4mg Take 1 Univers 4 mg 9-05 [...] by mouth ity of tablet 14:40: at [place] [address] bedtime. Medical Branch omeprazole 2018-0 Yes 20mg Take 20 mg U nivers 20 mg 4-10 by mouth ity of capsule 14:40: daily. [place] [address] Medical Branch atorvastati 2018-0 Yes 10mg Take 10 mg Univers n 10 mg 4-10 by mouth ity of tablet 14:40: at [place] [address] bedtime. Medical Branch omeprazole 2018-0 Yes 20mg Take 20 mg U nivers 20 mg 4-10 by mouth ity of capsule 14:40: daily. [place] [address] Medical Branch atorvastati 2017-0 Yes 10mg Take 10 mg Univers n 10 mg 4-10 by mouth ity of tablet 14:40: at [place] [address] bedtime. Medical Branch omeprazole 2018-0 Yes 20mg Take 20 mg U nivers 20 mg 4-10 by mouth ity of capsule 14:40: daily. [place] [address] Medical Branch atorvastati 2017-0 Yes 10mg Take 10 mg Univers n 10 mg 4-10 by mouth ity of tablet 14:40: at [place] [address] bedtime. Medical Branch omeprazole 2017-0 Yes 20mg Take 20 mg U nivers 20 mg 4-10 by mouth ity of capsule 14:40: daily. [place] [address] Medical Branch atorvastati 2017-0 Yes 10mg Take 10 mg Univers n 10 mg 4-10 by mouth ity of tablet 14:40: at [place] [address] bedtime. Medical Branch omeprazole 2018-0 Yes 20mg Take 20 mg U nivers 20 mg 4-10 by mouth ity of capsule 14:40: daily. [place] [address] Medical Branch levothyroxi 0 Yes TAKE 1 Univ ers ne 125 mcg 4-10 TABLET BY ity of tablet 00:00: MOUTH [place] 00 EVERY Medical MORNING Branch levothyroxi 2017-0 Yes TAKE 1 Univ ers ne 125 mcg 4-10 TABLET BY ity of tablet 00:00: MOUTH [place] EVERY Medical MORNING Branch levothyroxi 2018-0 Yes TAKE 1 Univ ers ne 125 mcg 4-10 TABLET BY ity of tablet 00:00: MOUTH [place] EVERY Medical MORNING Branch levothyroxi 2017-0 Yes TAKE 1 Univ ers ne 125 mcg 4-10 TABLET BY ity of tablet 00:00: MOUTH [place] EVERY Medical MORNING Branch levothyroxi 2018-0 Yes [...] TABLET BY ity of tablet 00:00: MOUTH [place] 00 EVERY Medical MORNING Branch clopidogrel 2018-0 Yes TAKE 1 Univ ers 75 mg 2-06 TABLET BY ity of tablet 00:00: MOUTH [place] 00 EVERY Medical MORNING Branch clopidogrel 2018-0 Yes TAKE 1 Univ ers 75 mg 2-06 TABLET BY ity of tablet 00:00: MOUTH [place] 00 EVERY Medical MORNING Branch clopidogrel 2018-0 Yes TAKE 1 Univ ers 75 mg 2-06 TABLET BY ity of tablet 00:00: MOUTH [place] 00 EVERY Medical MORNING Branch clopidogrel 2018-0 Yes TAKE 1 Univ ers 75 mg 2-06 TABLET BY ity of tablet 00:00: MOUTH [place] 00 EVERY Medical MORNING Branch clopidogrel 2018-0 Yes TAKE 1 Univ ers 75 mg 2-06 TABLET BY ity of tablet 00:00: MOUTH [place] 00 EVERY Medical MORNING Branch clopidogrel 2018-0 Yes TAKE 1 Univ ers 75 mg 2-06 TABLET BY ity of tablet 00:00: MOUTH [place] 00 EVERY Medical MORNING Branch clopidogrel 2018-0 Yes TAKE 1 Univ ers 75 mg 2-06 TABLET BY ity of tablet 00:00: MOUTH [place] 00 EVERY Medical MORNING Branch clopidogrel 2018-0 Yes TAKE 1 Univ ers 75 mg 2-06 TABLET BY ity of tablet 00:00: [facility] 00 EVERY Medical MORNING Branch clopidogrel 2018-0 Yes TAKE 1 Univ ers 75 mg 2-06 TABLET BY ity of tablet 00:00: MOUTH [place] 00 EVERY Medical MORNING Branch clopidogrel 2018-0 Yes TAKE 1 Univ ers 75 mg 2-06 TABLET BY ity of tablet 00:00: MOUTH [place] 00 EVERY Medical MORNING Branch clopidogrel 2018-0 Yes TAKE 1 Univ ers 75 mg 2-06 TABLET BY ity of tablet 00:00: MOUTH [place] 00 EVERY Medical MORNING Branch clopidogrel 2018-0 Yes TAKE 1 Univ ers 75 mg 2-06 TABLET BY ity of tablet 00:00: MOUTH [place] 00 EVERY Medical MORNING Branch clopidogrel 2018-0 Yes TAKE 1 Univ ers 75 mg 2-06 TABLET BY ity of tablet 00:00: MOUTH [place] 00 EVERY Medical MORNING Branch clopidogrel 2018-0 [...] 20:38:00 149 mm[Hg] Univer sity of pressure [place] [facility] [place] Diastolic blood 2023-02-26 20:38:00 75 mm[Hg] Unive rsity of [facility] Heart rate 2023-02-26 20:38:00 81 /min [facility]i ty [facility] Body temperature 2023-02-26 20:38:00 36.72 [facility] 2023-02-26 20:38:00 18 /[facility] Body height 2023-02-26 20:38:00 170.2 cm Universi ty [facility] Body weight 2023-02-26 20:38:00 57.607 kg Universi ty of [facility] BMI 2023-02-26 20:38:00 19.89 kg/m2 Universi ty [facility] Oxygen saturation in 2023-02-26 20:38:00 100 /min [facility] Arterial blood by [facility] Pulse oximetry Branch Systolic blood 2022-08-24 15:43:00 135 mm[Hg] Univer sity of [facility] Diastolic blood 2022-08-24 15:43:00 83 mm[Hg] Unive rsity of [facility] Heart rate 2022-08-24 15:43:00 94 /min Universi ty of [facility] Body temperature 2022-08-24 15:43:00 36.83 Brittany Univ ersity of [facility] Respiratory rate 2022-08-24 15:43:00 18 /min Univ ersity of [facility] Body height 2022-08-24 15:43:00 170.2 cm Universi ty of [facility] Body weight 2022-08-24 15:43:00 58.968 kg Universi ty of [facility] BMI 2022-08-24 15:43:00 20.36 kg/m2 Universi ty of [place] [facility] Oxygen saturation in 2022-08-24 15:43:00 99 /min University of Arterial blood by [facility] hermelindo Pulse oximetry Branch Systolic blood 2022-01-08 02:02:00 147 mm[Hg] Univer sity of pressure [place] [facility] Diastolic blood 2022-01-08 02:02:00 78 mm[Hg] Unive rsity of pressure [place] [facility] Heart rate 2022-01-08 02:02:00 78 /min Universi ty of [place] [facility] Respiratory rate 2022-01-08 02:02:00 18 /min Univ ersity of [place] [facility] Oxygen saturation in 2022-01-08 02:02:00 100 /min University of Arterial blood by [facility] Pulse oximetry Branch Body temperature 2022-01-07 23:24:00 37.17 Brittany Univ ersity of [place] [facility] Body weight 2022-01-07 23:24:00 58.968 kg Universi ty of [place] [facility] BMI 2022-01-07 23:24:00 20.36 kg/m2 Universi ty of [place] [facility] Systolic blood 2022-01-06 20:29:00 140 mm[Hg] Univer sity of pressure [place] [facility] Diastolic blood 2022-01-06 20:29:00 106 mm[Hg] Unive rsity of pressure [place] [facility] Heart rate 2022-01-06 20:29:00 102 /min Universi ty of [place] [facility] Body temperature 2022-01-06 20:29:00 37.5 Brittany Univ ersity of [place] [facility] Respiratory rate 2022-01-06 20:29:00 16 /min Univ ersity of [place] [facility] Body height 2022-01-06 20:29:00 170.2 cm Universi ty of [place] [facility] Body weight 2022-01-06 20:29:00 58.968 kg Universi ty of [place] [facility] BMI 2022-01-06 20:29:00 20.36 kg/m2 Universi ty of [place] [facility] Oxygen saturation in 2022-01-06 20:29:00 99 /min University of Arterial blood by [facility] Pulse oximetry Branch Systolic blood 2021-09-02 01:52:00 132 mm[Hg] Univer sity of pressure [place] [facility] Diastolic blood 2021-09-02 01:52:00 75 mm[Hg] Unive rsity of pressure [place] [facility] Heart rate 2021-09-02 01:52:00 67 /min Universi ty of [place] [facility] Respiratory rate 2021-09-02 01:52:00 16 /min Univ ersity of [place] [facility] Oxygen saturation in 2021-09-02 01:52:00 99 /min University of Arterial blood by [facility] Pulse oximetry Branch Body temperature 2021-09-01 23:57:00 36.17 Brittany [facility] Body height 2021-09-01 23:57:00 170.2 cm [facility] Body weight 2021-09-01 23:57:00 58.968 kg [facility] BMI 2021-09-01 23:57:00 20.36 kg/m2 [facility] Systolic blood 2021-08-07 15:57:00 165 mm[Hg] [facility] [place] [facility] Diastolic blood 2021-08-07 15:57:00 71 mm[Hg] [facility] [place] [facility] Heart rate 2021-08-07 15:57:00 97 /min [facility] Body temperature 2021-08-07 15:57:00 37.44 Brittany [facility] Respiratory rate 2021-08-07 15:57:00 18 /min [facility] Body height 2021-08-07 15:57:00 170.2 cm [facility] Body weight 2021-08-07 15:57:00 56.7 kg [facility] BMI 2021-08-07 15:57:00 19.58 kg/m2 [facility] Oxygen saturation in 2021-08-07 15:57:00 98 /min [facility] of Arterial blood by [facility] Pulse oximetry Branch Systolic blood 2021-06-30 01:29:00 132 mm[Hg] [facility] [place] [facility] Diastolic blood 2021-06-30 01:29:00 75 mm[Hg] [facility] [place] [facility] Heart rate 2021-06-30 01:29:00 75 /min [facility] [place] [facility] Respiratory rate 2021-06-30 01:29:00 18 /min [facility] [place] [facility] Oxygen saturation in 2021-06-30 01:29:00 100 /min [facility] Arterial blood by [facility] Pulse oximetry Branch Body temperature 2021-06-29 22:01:00 36.67 Brittany [facility] [place] [facility] Body weight 2021-06-29 22:01:00 53.071 kg [facility] [place] [facility] BMI 2021-06-29 22:01:00 18.32 kg/m2 [facility] [place] [facility] Systolic blood 2021-05-20 21:45:00 137 mm[Hg] [facility] [place] [facility] Diastolic blood 2021-05-20 21:45:00 75 mm[Hg] [facility] [place] [facility] Heart rate 2021-05-20 21:45:00 75 /min [facility] Body temperature 2021-05-20 21:45:00 36.5 Brittany [facility] [place] [facility] Respiratory rate 2021-05-20 21:45:00 16 /min [facility] [place] [facility] Oxygen saturation in 2021-05-20 21:45:00 97 /min [facility] Arterial blood by [facility] Pulse oximetry Branch Body weight [...] /min [facility] Arterial blood by [facility] Pulse oximetry Branch Body temperature 2020-09-14 02:10:00 36.5 Brittany [facility] Body height 2020-09-14 02:09:00 170.2 cm [facility] Body weight 2020-09-14 02:09:00 61.236 kg [facility] BMI 2020-09-14 02:09:00 21.14 kg/m2 [facility] Systolic blood 2020-09-14 03:30:00 147 mm[Hg] [facility] [place] [facility] Diastolic blood 2020-09-14 03:30:00 89 mm[Hg] [facility] [place] [facility] Heart rate 2020-09-14 03:30:00 73 /min [facility] Respiratory rate 2020-09-14 03:30:00 19 /min [facility] Oxygen saturation in 2020-09-14 03:30:00 97 /min [facility] [place] [facility] Pulse oximetry Branch Body temperature 2020-09-14 02:10:00 36.5 Brittany [facility] [place] [facility] Body height 2020-09-14 02:09:00 170.2 cm [facility] Body weight 2020-09-14 02:09:00 61.236 kg [facility] BMI 2020-09-14 02:09:00 21.14 kg/m2 [facility] Heart rate 2019-07-28 01:36:00 70 /min [facility] Respiratory rate 2019-07-28 01:36:00 18 /min [facility] [place] [facility] Oxygen saturation in 2019-07-28 01:24:00 98 /min [facility] [place] by [place] [facility] Pulse oximetry Branch Systolic blood 2019-07-28 01:00:00 143 mm[Hg] [facility] [place] [facility] Diastolic blood 2019-07-28 01:00:00 74 mm[Hg] [facility] [place] [facility] Body temperature 2019-07-28 00:05:00 36.56 Brittany [facility] [place] [facility] Body height 2019-07-28 00:05:00 170.2 cm [facility] Body weight 2019-07-28 00:05:00 68.04 kg [facility] BMI 2019-07-28 00:05:00 23.49 kg/m2 [facility] Heart rate 2019-07-28 01:36:00 70 /min [facility] Respiratory rate 2019-07-28 01:36:00 18 /min [facility] [place] [facility] Oxygen saturation in 2019-07-28 01:24:00 98 /min [facility] by [place] [facility] Pulse oximetry Branch Systolic blood 2019-07-28 01:00:00 143 mm[Hg] [facility] [place] [facility] Diastolic blood 2019-07-28 01:00:00 74 mm[Hg] [facility] [place] [facility] Body temperature 2019-07-28 00:05:00 36.56 Brittany [facility] [place] [facility] Body height 2019-07-28 00:05:00 170.2 cm [facility] [place] [facility] [place] Body weight 2019-07-28 00:05:00 68.04 kg [facility] BMI 2019-07-28 00:05:00 23.49 kg/m2 [facility] Systolic blood 2019-03-11 21:00:00 141 mm[Hg] [facility] [place] [facility] Diastolic blood 2019-03-11 21:00:00 66 mm[Hg] [facility] [place] [facility] Heart rate 2019-03-11 21:00:00 97 /min [facility] Respiratory rate 2019-03-11 21:00:00 18 /min [facility] [place] [facility] Oxygen saturation in 2019-03-11 21:00:00 97 /min [facility] Arterial blood by [facility] Pulse oximetry Branch Body temperature 2019-03-11 19:13:00 36.06 Brittany [facility] Body weight 2019-03-11 19:12:00 68.04 kg [facility] BMI 2019-03-11 19:12:00 23.49 kg/m2 [facility] Systolic blood 2019-03-11 21:00:00 141 mm[Hg] [facility] [place] [facility] Diastolic blood 2019-03-11 21:00:00 66 mm[Hg] [facility] [place] [facility] Heart rate 2019-03-11 21:00:00 97 /min [facility] Respiratory rate 2019-03-11 21:00:00 18 /min [facility] Oxygen saturation in 2019-03-11 21:00:00 97 /min [facility] Arterial blood by [facility] Pulse oximetry [place] Body temperature 2019-03-11 19:13:00 36.06 Brittany [facility] Body weight 2019-03-11 19:12:00 68.04 kg [facility] BMI 2019-03-11 19:12:00 23.49 kg/m2 [facility] Procedures Procedure Date / Time Performing Clinician Source Performed COMP. METABOLIC PANEL 2023-02-26 21:14:00 Neida Duggan [facility] ([id number]) [facility] CBC WITH DIFF 2023-02-26 21:14:00 Neida Duggan [place] [facility] CONSENT/REFUSAL FOR 2023-02-26 20:33:07 Doctor Unassigned, No Un [facility] DIAGNOSIS AND TREATMENT Name [facility] POCT SARS-COV-2 ANTIGEN 2022-08-24 15:52:00 Susan Lee [facility] (BINAX NOW) [facility] POCT MOLECULAR FLU 2022-08-24 15:51:00 Unknown, Attending [facility] ASSIGNMENT OF BENEFITS 2022-08-24 15:38:07 Doctor Unassigned, No [facility] Name [facility] XR CHEST 1 VW 2022-01-08 00:24:42 Alex Oconnell [facility] RAPID STREP SCREEN FOR 2022-01-06 20:47:00 [facility] GROUP A Medical Branch COVID-19 (ID NOW RAPID 2022-01-06 20:47:00 Sherrill [facility] TESTING) Medical Branch CONSENT/REFUSAL FOR 2022-01-06 20:26:18 Doctor Unassigned, No Un [facility] DIAGNOSIS AND TREATMENT Name [facility] RAPID INFLUENZA A/B 2021-09-02 00:47:00 Cameron Dalton [facility] COVID-19 (ID NOW RAPID 2021-09-02 00:47:00 Cameron Dalton [facility] TESTING) Medical Branch XR CHEST 2 VW 2021-09-02 00:27:[facility] 2021-09-01 23:46:25 Doctor Unassigned, No [facility] Name Medical Branch XR CHEST 2 VW 2021-08-07 16:43:[address] [facility] CONSENT/REFUSAL FOR 2021-08-07 15:37:28 Doctor Unassigned, No [facility] Name [facility] CT ABDOMEN PELVIS W 2021-06-29 23:11:24 Jose Alejandro Castano [facility] CONTRAST Medical Branch LIPASE 2021-06-29 22:18:[facility] I 2021-06-29 22:18:00 Omaira [facility] COMP. METABOLIC PANEL 2021-06-29 22:18:00 Omiara [facility] ([id number]) Medical Branch CBC WITH DIFF 2021-06-29 22:18:00 Omaira [facility] URINALYSIS 2021-06-29 22:18:00 [facility] CONSENT[facility]REFUSAL FOR 2021-06-29 21:50:47 Doctor Unassigned, No [facility] Name [facility] POCT GLUCOSE (AUTOMATED) 2021-05-20 17:30:00 Marcelina Che [facility] HB ECG ROUTINE & RHYTHM 2021-05-20 15:36:46 Sami Caceres [facility] STRIP [facility] TRANSTHORACIC ECHO (TTE) 2021-05-20 15:19:52 [facility] COMPLETE [facility] TROPONIN I 2021-05-20 11:04:00 Yane [facility] BASIC METABOLIC PANEL 2021-05-20 [facility] ([facility], K, CL, CO2, Medical Branch GLUCOSE, BUN, CREATININE, CA) CBC WITH DIFF 2021-05-20 11:04:[address] [facility] TROPONIN I 2021-05-20 01:56:[address] [facility] XR CHEST 1 VW 2021-05-20 00:01:[address] [facility] LIPASE 2021-05-19 23:49:[address] [facility] MAGNESIUM 2021-05-19 23:49:[address] [facility] TROPONIN I 2021-05-19 23:49:[address] [facility] COMP. METABOLIC PANEL 2021-05-19 23:49:00 Neida Duggan [facility] ([id number]) [facility] CBC WITH DIFF 2021-05-19 23:49:[address] [facility] PROTHROMBIN TIME / INR 2021-05-19 23:49:00 Neida [facility] ACTIVATED PARTIAL 2021-05-19 23:49:00 Neida Duggan [facility] THRMPLAS [facility] COVID-19 (ID NOW RAPID 2021-05-19 23:49:00 Neida Duggan [facility] TESTING) [facility] CONSENT/REFUSAL FOR 2021-05-19 23:01:42 Doctor Unassigned, No [facility] DIAGNOSIS AND TREATMENT Name Medical Branch URINALYSIS 2020-09-14 02:42:00 Diana [facility] XR CHEST 1 VW 2020-09-14 02:30:21 Diana [facility] LIPASE 2020-09-14 02:21:00 Diana [facility] TROPONIN I 2020-09-14 02:21:00 Diana [facility] HEPATIC FUNCTION PANEL 2020-09-14 02:21:00 Diana Berg [facility] ([id number]) (ALB,T.PRO,BILI Medical Branch T,BU/BC,ALT,AST,ALK PHOS) BASIC METABOLIC PANEL 2020-09-14 02:21:00 Diana [facility] [place] (NA, K, CL, CO2, Medical Branch GLUCOSE, BUN, CREATININE, CA) CBC WITH DIFF 2020-09-14 02:21:00 Diana [facility] N-TERMINAL PRO-BNP 2020-09-14 02:21:00 Diana [facility] COVID-[facility] (ID NOW RAPID 2020-09-14 02:21:00 [facility] NOTICE OF PRIVACY 2020-09-14 02:00:22 Doctor Unassigned, No [facility] CONSENT/REFUSAL FOR 2020-09-14 01:58:28 Doctor Unassigned, No [facility] [place] DIAG[facility] TREATMENT Name [facility] HEPATIC FUNCTION PANEL 2019-07-28 00:55:00 [facility]angel [facility] ([id number] (ALB,T.PRO,BILI Medical Branch T,BU/BC,ALT,AST,ALK PHOS) BASIC METABOLIC PANEL 2019-07-28 00:55:00 Mariangel [facility] (NA, K, CL, CO2, Medical Branch GLUCOSE, BUN, CREATININE, CA) CBC WITH DIFFERENTIAL 2019-07-28 00:55:00 Mariangel [facility]ga [facility] RAPID STREP SCREEN FOR 2019-07-28 00:55:00 Mariangel [facility] GROUP A [facility] ADC,CLC OR LCC ONLY - 2019-07-28 00:55:00 Mariangel Ortega [facility] [place] INFLUENZA A & B DIRECT Medical [facility] ANTIGEN CBC WITH DIFFERENTIAL 2019-07-28 00:55:00 Mariangel [facility]ga [facility] XR CHEST 2 VW 2019-07-28 00:28:40 Mariangel Ortega [facility] CONSENT/REFUSAL FOR 2019-07-27 23:47:18 Doctor Unassigned, No [facility] [place] DIAGNOSIS AND TREATMENT Name Medical Branch LIPASE 2019-03-11 19:53:00 Sherrill Connor [place] [facility] HEPATIC FUNCTION PANEL 2019-03-11 19:53:00 Sherrill Connor [facility] ([id number]) (ALB,T.PRO,BILI [facility] T,BU/BC,ALT,AST,ALK PHOS) BASIC METABOLIC PANEL 2019-03-11 19:53:00 Sherrill Connor [facility] (NA, K, CL, CO2, Medical Branch GLUCOSE, BUN, CREATININE, CA) CBC WITH DIFFERENTIAL 2019-03-11 19:53:00 Sherrill Connor [facility] PROTHROMBIN TIME / INR 2019-03-11 19:53:00 Sherrill Connor [facility] ACTIVATED PARTIAL 2019-03-11 19:53:00 Sherrill Connor [facility] NOTICE OF PRIVACY 2019-03-11 18:56:54 Doctor Unassigned, No Univ [facility] PRACTICES Name [facility] Encounters Start End Encounter Admission Attending Care Care Encounter Source Date/Time Date/Time Type Type Clinicians Facility Department ID 2021-05-06 Emergency [facility] [id number] Univers 05:05:13 [facility] 2023-02-26 2023-02-26 Emergency X OLGA LIDIA Neida [facility] ERT [id number] Univers 15:53:00 17:52:00 ity [facility] 2023-02-26 2023-02-26 Emergency Olga LidiaNeida [facility] 1.2.840.114 [id number] Univers 15:53:00 17:52:00 Leonarda DENNISON [id number] i ty of [place] [id number] [facility] [id number] [facility] 084 Branch 2022-08-24 2022-08-24 Urgent Susan Lee [facility] 1.2.840.11 [id number] Univers 09:40:00 10:00:00 Care Unknown, Attending HEALTH [id number] ity of [place] [id number] Amandeep as JOCELYN?BLEA [id number] Fl dical [address] MEDICAL OFFICE BUILDING 2022-08-24 2022-08-24 Outpatient R TAMIKO [facility] [id number] Univers 09:40:00 09:40:00 SUSAN it[facility] 2022-08-24 2022-08-24 Orders Doctor SUSHIL 1.2.840.114 [id number] Univers 00:00:00 00:00:00 Only Unassigned, KIRK [id number] ity of [place] [facility] [id number] Amandeep as [id number] [address] 2022-01-11 2022-01-11 Laboratory Only, Ang Db Test [facility] 1.2.8 40.114 [id number] Univers 13:15:00 13:30:00 Only Monik Charles [facility] [id number] ity of [place] [id number] Amandeep as JOCELYN?BLEA [id number] [address] MEDICAL OFFICE BUILDING 2022-01-11 2022-01-11 Outpatient Torres CHARLES [facility] [id number] Univers 13:15:00 13:24:38 MONIK delaney [facility] 2022-01-07 2022-01-07 [facility] [id number] Univers 18:26:00 21:08:00 ALEX garcia [facility] 2022-01-07 2022-01-07 Emergency [facility] [id number] Univers 18:26:00 21:08:00 Alex DENNISON [id number] ity of [place] [id number] [facility] [id number] [address] 2022-01-06 2022-01-06 Emergency [facility] [id number] Univers 15:31:00 16:32:00 SHERRILL delaney [facility] 2022-01-06 2022-01-06 Emergency [facility] [id number] Univers 15:31:00 16:32:00 Sherrill DENNISON [id number] i ty of [facility] [id number] [facility] [id number] [address] 2021-09-01 2021-09-01 Emergency X [facility] ERT [id number] Univers 17:59:00 19:56:00 CAMERON delaney [facility] 2021-09-01 2021-09-01 Emergency [facility] 1.2.840.114 [id number] Univers 17:59:00 19:56:00 Cameron DENNISON [id number] i ty of [place] 4.2.7.2.686 [place] [id number] [place] [address] [place] 2021-09-01 2021-09-01 Orders Doctor SUSHIL 1.2.840.114 [id number] Univers 00:00:00 00:00:00 Only Unassigned, KIRK [id number] ity of [place] [facility] 4.2.7.2.686 Amandeep as [id number] [facility] 009 [place] 2021-08-08 2021-08-08 Letter SUSHIL Daniels 1.2.840.114 [id number] Univers 00:00:00 00:00:00 (Out) Nirmala BRADLEY [id number] it y of HOSPITAL 4.2.7.2.686 Amandeep as [id number] [facility] 019 [place] 2021-08-07 2021-08-07 Emergency X [facility] ERT [id number] Univers 09:58:00 11:43:00 DARIUS delaney of [facility] 2021-08-07 2021-08-07 Emergency [facility] [id number] Univers 09:58:00 11:43:00 Darius BRAGGDORINA 350.1.13.10 i ty of [place] 4.2.7.2.686 [facility] [id number] [place] [address] [place] 2021-08-07 2021-08-07 Orders Doctor SUSHIL 1.2.840.114 [id number] Univers 00:00:00 00:00:00 Only Unassigned, KIRK [id number] ity of [place] [facility] 4.2.7.2.686 Amandeep as [id number] [facility] 009 [place] 2021-06-29 2021-06-29 Emergency X OMAIRA [facility] ERT [id number] Univers 16:04:00 19:33:00 JOSE ALEJANDRO delaney [facility] 2021-06-29 2021-06-29 Emergency Omaira [facility] 1.2.840.114 [id number] Univers 16:04:00 19:33:00 Jose Alejandro DENNISON 350.1.13.10 i ty of [facility] 4.2.7.2.686 [facility] [id number] [address] 2021-05-19 2021-05-20 [facility] [id number] Univers 17:04:00 17:03:00 MARCELINA delaney [facility] 2021-05-19 2021-05-20 Emergency Neida Duggan Leonarda [facility] 1..840. 114 [id number] Univers 17:04:00 17:03:00 Marcelina Che JESI 350.1.13.10 ity [facility] [id number] [facility] [id number] [address] 2020-09-16 2020-09-16 Outpatient R LUIS MANUEL [facility] [id number] Univers 10:20:00 10:20:00 NICOLE ity [facility] 2020-09-16 2020-09-16 Laboratory Lab, [facility] 1..840.114 [id number] 09:44:15 10:04:15 Only Fam Pob I Health 350.1.13.10 [place] 4.2.7.2.686 Professio [id number] [place] [address] [address] 2020-09-16 2020-09-16 Laboratory Lab, [facility] Fam Pob I [facility] 1.. 840.114 [id number] Univers 09:44:15 10:04:15 Only Nicole [facility] 350.1.13.10 ity of [place] 4.2.7.2.686 Amandeep as Professio [id number] Fl dical [address] Office [address] 2020-09-13 2020-09-13 Emergency [facility] 1.2.840.114 [id number] 20:05:00 22:24:00 Diana Dennison 350.1.13.10 [place] 4.2.7.2.[address] [place] [id number] [facility] 2020-09-13 2020-09-13 Emergency Rohan, [facility] 1.2.840.114 [id number] [facility] 20:05:00 22:24:00 Diana Braggton 350.1.13.10 ity of [place] 4.2.7.2.686 [facility] [id number] [address] 2019-07-27 2019-07-27 Emergency [facility] 1.2.840.114 [id number] 18:07:12 20:13:00 Mariangel Ada Jesi 350.1.13.10 [place] 4.2.7.2.[address] [place] [id number] [facility] 2019-07-27 2019-07-27 Emergency [facility] 1.2.840.114 [id number] [facility] 18:07:12 20:13:00 Mariangel Dennison 350.1.13.10 ity of [place] 4.2.7.2.686 [facility] [id number] [address] 2019-07-27 2019-07-27 Orders Doctor LING 1.2.840.114 [id number] 00:00:00 00:00:00 Only Unassigned, KIRK 350.1.13.10 [place] [facility] 4.2.7.2.686 [id number] [facility] 2019-07-27 2019-07-27 Orders Doctor LING 1.2.840.114 [id number] Univers 00:00:00 00:00:00 Only Unassigned, KIRK 350.1.13.10 ity of [place] [facility] 4.2.7.2.686 Amandeep [id number] [address] 2019-03-11 2019-03-11 Emergency [facility] [id number] 14:05:54 16:45:00 Sherrill Dennison 350.1.13.10 [place] 4.2.7.2.[address] [place] [id number] [facility] 2019-03-11 2019-03-11 Emergency [facility] 1.2.189.491 [id number] Univers 14:05:54 16:45:00 Sherrill Dennison 350.1.13.10 i [facility] 4.2.7.2.686 [facility] [id number] [facility] 084 Branch Results Test Description Test Time Test Comments Results Result Comments Source COMP. METABOLIC PANEL (29391) 2023-02-26 22:05:45 Test Item Value Reference Range Interpretation Comme nts NA (test code = 8015393102) 136 mmol/L 135-145 K (test code = 3200858247) 3.7 mmol/L 3.5-5.0 CL (test code = 9935912075) 100 mmol/L 98-108 CO2 TOTAL (test code = 2958024704) 26 mmol/L 23-31 AGAP (test code = 1658566947) 10 2-16 BUN (test code = 2800735299) 11 mg/dL 7-23 GLUCOSE (test code = 1237411075) 123 mg/dL 70-110 H CREATININE (test code = 0.61 mg/dL 0.50-1.04 0517040083) TOTAL BILI (test code = 0.2 mg/dL 0.1-1.1 5990624784) CALCIUM (test code = 3160292946) 9.6 mg/dL 8.6-10.6 T PROTEIN (test code = 7762036942) 7.6 g/dL 6.3-8.2 ALBUMIN (test code = 6848830625) 4.8 g/dL 3.5-5.0 ALK PHOS (test code = 4225594792) 83 U/L 34-122 ALTv (test code = 1742-6) 20 U/L 5-35 AST(SGOT) (test code = 2192613048) 28 U/L 13-40 eGFR (test code = 0816564719) 99.1 mL/min/1.73m2 MADISYN (test code = MADISYN) [...] tests). Lab Interpretation (test code = Abnormal 23708-8) [facility] [id number] 21:53:23 Test Item Value Reference Range Interpretation Comments WBC (test code = 6.64 See_Comment [Automated 1790-2) message] The sy stem which generated this result transmitted reference range : 4.30 - 11.10 10*3/?L. The reference range was not used to interpret this result as normal/abnormal . RBC (test code = 3.46 See_Comment L [Automated 049-8) message] The sy stem which generated this [...] RDW-SD (test code = 42.1 fL 39.0-49.9 28846-4) RDW-CV (test code = 12.9 % 12.0-15.5 788-0) PLT (test code = 274 See_Comment [Automated 777-3) message] The sy stem which generated this result transmitted reference range : 166 - 358 10*3/ ?L. The reference r aiden was not used to interpret this result as normal/abnormal . MPV (test code = 10.4 fL 9.5-12.9 95014-4) NRBC/100 WBC (test 0.0 See_Comment [Automat ed code = 0065690913) message] The system which generated this result transmitted reference range : 0.0 - 10.0 /100 WBCs. The refer ence range was not u sed to interpret th is result as normal/abnormal . NRBC x10^3 (test code See_Comment [Auto mated = 5551774785) message] The s ystem which generated this result transmitted reference range : 10*3/?L. The reference range was not used to interpret this result as normal/abnormal . GRAN MAT (NEUT) % 52.0 % (test code = 770-8) IMM GRAN % (test code 0.50 % = 6285071540) LYMPH % (test code = 34.2 % 736-9) MONO % (test code = 6.8 % 5905-5) EOS % (test code = 6.2 % 713-8) BASO % (test code = 0.3 % 706-2) GRAN MAT x10^3(ANC) 3.46 10*3/uL 1.88-7.09 (test code = 8804645227) IMM GRAN x10^3 (test 0.03 10*3/uL 0.00-0.06 code = 4874697974) LYMPH x10^3 (test code 2.27 10*3/uL 1.32-3.29 = 731-0) MONO x10^3 (test code 0.45 10*3/uL 0.33-0.92 = 742-7) EOS x10^3 (test code = 0.41 10*3/uL 0.03-0.39 H 711-2) BASO x10^3 (test code 0.01-0.07 = 704-7) Lab Interpretation Abnormal (test code = 82842-4) [facility] MOLECULAR [id number] 16:02:31 Test Item Value Reference Range Interpretation Comments POCT Molecular FluA (test code = Negative Negative 68230-6) POCT Molecular FluB (test code = Negative Negative 72767-9) Lab Interpretation (test code = Normal 79470-4) [facility] SARS-COV-2 ANTIGEN (BINAX NOW)2022-08-24 15:52:00 Test Item Value Reference Range Interpretation Comments POCT SARS-COV-2 ANTIGEN (test Not Detected Not Detected code = 96583-6) On board controls acceptable Yes with C Line (test code = 3574) Lab Interpretation (test code = Normal 17172-3) [facility] METABOLIC PANEL (56050)2021-06-29 23:10:56 Test Item Value Reference Range Interpretation Comments NA (test code = 137 mmol/L 135-145 0789392798) K (test code = 3.9 mmol/L 3.5-5.0 2363103845) CL (test code = 102 mmol/L 98-108 1728461685) CO2 TOTAL (test code = 27 mmol/L 23-31 0484047582) AGAP (test code = 2-16 8244846593) BUN (test code = 10 mg/dL 7-23 1950264773) GLUCOSE (test code = 137 mg/dL 70-110 H 2155958826) CREATININE (test code = 0.69 mg/dL 0.50-1.04 9338573415) TOTAL BILI (test code = 0.5 mg/dL 0.1-1.2 2469332998) CALCIUM (test code = 9.2 mg/dL 8.6-10.6 2207670278) T PROTEIN (test code = 7.7 g/dL 6.3-8.2 6154138092) ALBUMIN (test code = 4.9 g/dL 3.5-5.0 2140505498) ALK PHOS (test code = 73 U/L 34-122 9422486538) ALTv (test code = 15 U/L 5-35 1742-6) AST(SGOT) (test code = 21 U/L 13-40 1733848160) eGFR (test code = mL/min/1.73m2 2117787859) MADISYN (test code = MADISYN) Association of [...] tests). Lab Interpretation Abnormal (test code = 66478-0) [facility] [id number] 22:59:27 Test Item Value Reference Interpretation Comments Range TROPONIN I (test 0.001 ng/mL See_Comment [Automated code = 0134362320) message] The system which generated this result [...] biotin. Lab Interpretation Normal (test code = 84358-2) [facility] 22:49:29 Test Item Value Reference Range Interpretation Comments LIPASE (test code = 3355476663) 57 U/L 0-220 Lab Interpretation (test code = Normal 62938-2) [facility] WITH [id number] 22:29:28 Test Item Value Reference Range Interpretation Comments WBC (test code = See_Comment [Automated 9590-2) message] The sy stem which generated this result transmitted reference range : 4.30 - 11.10 10*3/?L. The reference range was not used to interpret this result as normal/abnormal . RBC (test code = See_Comment L [Automated 839-8) message] The sy stem which [...] RDW-SD (test code = 43.4 fL 39.0-49.9 15041-8) RDW-CV (test code = 12.7 % 12.0-15.5 788-0) PLT (test code = See_Comment [Automated 417-3) message] The sy stem which generated this result transmitted reference range : 166 - 358 10*3/ ?L. The reference r aiden was not used to interpret this result as normal/abnormal . MPV (test code = 10.7 fL 9.5-12.9 32287-6) NRBC/100 WBC (test See_Comment [Automat ed code = 2682828640) message] The system which generated this result transmitted reference range : 0.0 - 10.0 /100 WBCs. The refer ence range was not u sed to interpret th is result as normal/abnormal . NRBC x10^3 (test code <0.01 See_Comment [Auto mated = 3810196665) message] The s ystem which generated this result transmitted reference range : 10*3/?L. The reference range was not used to interpret this result as normal/abnormal . GRAN MAT (NEUT) % 68.6 % (test code = 770-8) IMM GRAN % (test code 0.40 % = 9724773779) LYMPH % (test code = 22.9 % 736-9) MONO % (test code = 6.3 % 5905-5) EOS % (test code = 1.6 % 713-8) BASO % (test code = 0.2 % 706-2) GRAN MAT x10^3(ANC) 6.89 10*3/uL 1.88-7.09 (test code = 4679551324) IMM GRAN x10^3 (test 0.04 10*3/uL 0.00-0.06 code = 9616329424) LYMPH x10^3 (test code 2.30 10*3/uL 1.32-3.29 = 731-0) MONO x10^3 (test code 0.63 10*3/uL 0.33-0.92 = 742-7) EOS x10^3 (test code = 0.16 10*3/uL 0.03-0.39 711-2) BASO x10^3 (test code <0.03 0.01-0.07 = 704-7) Lab Interpretation Abnormal (test code = 09852-0) [facility] (AUTOMATED)2021-05-20 17:33:00 Test Item Value Reference Range Interpretation Comments POCT GLU (test code = 6662934289) 80 mg/dL 70-110 Lab Interpretation (test code = Normal 71968-0) [facility] RegionalTROPONIN [id number] 12:36:17 Test Item Value Reference Interpretation Comments Range TROPONIN I (test 0.002 ng/mL See_Comment [Automated code = 9977883291) message] The system which generated this result [...] biotin. Lab Interpretation Normal (test code = 36105-2) [facility] Metabolic Panel (NA, K, CL, CO2, GLUCOSE, BUN, CREATININE, CA)2021-05-20 12:31:20 Test Item Value Reference Range Interpretation Comments NA (test code = 138 mmol/L 135-145 4306554267) K (test code = 4.2 mmol/L 3.5-5.0 8383723456) CL (test code = 106 mmol/L 98-108 9433670942) CO2 TOTAL (test code = 25 mmol/L 23-31 9683701031) AGAP (test code = 2-16 1779678910) BUN (test code = 12 mg/dL 7-23 5554793940) GLUCOSE (test code = 146 mg/dL 70-110 H 2849361347) CREATININE (test code = 0.62 mg/dL 0.50-1.04 4251413561) CALCIUM (test code = 10.0 mg/dL 8.6-10.6 9750173913) eGFR (test code = mL/min/1.73m2 6176039908) MADISYN (test code = MADISYN) Association of [...] tests). Lab Interpretation Abnormal (test code = 51639-5) [facility] [id number] 11:49:32 Test Item Value Reference Range Interpretation Comments WBC (test code = See_Comment [Automated 1148-2) message] The sy stem which generated this result transmitted reference range : 4.30 - 11.10 10*3/?L. The reference range was not used to interpret this result as normal/abnormal . RBC (test code = See_Comment L [Automated 201-8) message] The sy stem which generated this [...] RDW-SD (test code = 40.3 fL 39.0-49.9 24078-0) RDW-CV (test code = 11.9 % 12.0-15.5 L 788-0) PLT (test code = See_Comment [Automated 777-3) message] The sy stem which generated this result transmitted reference range : 166 - 358 10*3/ ?L. The reference r aiden was not used to interpret this result as normal/abnormal . MPV (test code = 11.3 fL 9.5-12.9 57979-2) NRBC/100 WBC (test See_Comment [Automat ed code = 6000544312) message] The system which generated this result transmitted reference range : 0.0 - 10.0 /100 WBCs. The refer ence range was not u sed to interpret th is result as normal/abnormal . NRBC x10^3 (test code <0.01 See_Comment [Auto mated = 7071084954) message] The s ystem which generated this result transmitted reference range : 10*3/?L. The reference range was not used to interpret this result as normal/abnormal . GRAN MAT (NEUT) % 59.9 % (test code = 770-8) IMM GRAN % (test code 0.50 % = 6446173947) LYMPH % (test code = 30.0 % 736-9) MONO % (test code = 6.4 % 5905-5) EOS % (test code = 2.9 % 713-8) BASO % (test code = 0.3 % 706-2) GRAN MAT x10^3(ANC) 3.72 10*3/uL 1.88-7.09 (test code = 0203849923) IMM GRAN x10^3 (test 0.03 10*3/uL 0.00-0.06 code = 3085360659) LYMPH x10^3 (test code 1.86 10*3/uL 1.32-3.29 = 731-0) MONO x10^3 (test code 0.40 10*3/uL 0.33-0.92 = 742-7) EOS x10^3 (test code = 0.18 10*3/uL 0.03-0.39 711-2) BASO x10^3 (test code <0.03 0.01-0.07 = 704-7) Lab Interpretation Abnormal (test code = 55786-4) [facility] [id number] 02:24:28 Test Item Value Reference Interpretation Comments Range TROPONIN I (test 0.003 ng/mL See_Comment [Automated code = 8398901632) message] The system which generated this result [...] biotin. Lab Interpretation Normal (test code = 46657-5) [facility] Test Item Value Reference Range Interpretation Comments MAGNESIUM (test code = 7185796566) 1.9 mg/dL 1.7-2.4 Lab Interpretation (test code = Normal 60211-7) [facility] [id number] 00:20:03 Test Item Value Reference Interpretation Comments Range TROPONIN I (test 0.002 ng/mL See_Comment [Automated code = 3108869135) message] The system which generated this result [...] biotin. Lab Interpretation Normal (test code = 09669-5) [facility]. METABOLIC PANEL (94204)2021-05-20 00:09:00 Test Item Value Reference Range Interpretation Comments NA (test code = 139 mmol/L 135-145 1148093120) K (test code = 3.9 mmol/L 3.5-5.0 5829657981) CL (test code = 101 mmol/L 98-108 7518510177) CO2 TOTAL (test code = 28 mmol/L 23-31 8714962826) AGAP (test code = 2-16 5272848501) BUN (test code = 13 mg/dL 7-23 1448225659) GLUCOSE (test code = 143 mg/dL 70-110 H 5056057359) CREATININE (test code = 0.68 mg/dL 0.50-1.04 3234778970) TOTAL BILI (test code = 0.4 mg/dL 0.1-1.2 1826966397) CALCIUM (test code = 10.4 mg/dL 8.6-10.6 2480080785) T PROTEIN (test code = 8.0 g/dL 6.3-8.2 7923921083) ALBUMIN (test code = 5.0 g/dL 3.5-5.0 0655033262) ALK PHOS (test code = 93 U/L 34-122 7598371113) ALTv (test code = 21 U/L 5-35 1742-6) AST(SGOT) (test code = 31 U/L 13-40 2638901865) eGFR (test code = mL/min/1.73m2 7228341132) MADISYN (test code = MADISYN) Association of [...] tests). Lab Interpretation Abnormal (test code = 85249-6) [facility] 00:08:20 Test Item Value Reference Range Interpretation Comments LIPASE (test code = 6828066993) 66 U/L 0-220 Lab Interpretation (test code = Normal 00972-3) [facility] RegionalaPTT2021-11-14 00:06:19 Test Item Value Reference Range Interpretation Comments APTT Patient (test See_Comment [Automat ed code = 3173-2) message] The system which generated this result transmitted reference range : 23 - 38 Seconds . The reference range was not used to interpr et this result as normal/abnormal . MADISYN (test code = MADISYN) The [facility] patient population mean normal value for aPTT is 30 seconds. Lab Interpretation Normal (test code = 74477-3) [facility] RegionalPROTHROMBIN TIME / [id number] 00:04:19 Test Item Value Reference Range Interpretation [...] tions. Lab Interpretation (test Normal code = 08921-9) [facility] [id number] 23:55:39 Test Item Value Reference Range Interpretation Comments WBC (test code = See_Comment [Automated 0590-2) message] The sy stem which generated this [...] RDW-SD (test code = 40.4 fL 39.0-49.9 65365-1) RDW-CV (test code = 11.9 % 12.0-15.5 L 788-0) PLT (test code = See_Comment [Automated 777-3) message] The sy stem which generated this result transmitted reference range : 166 - 358 10*3/ ?L. The reference r aiden was not used to interpret this result as normal/abnormal . MPV (test code = 11.0 fL 9.5-12.9 22148-2) NRBC/100 WBC (test See_Comment [Automat ed code = 7996249661) message] The system which generated this result transmitted reference range : 0.0 - 10.0 /100 WBCs. The refer ence range was not u sed to interpret th is result as normal/abnormal . NRBC x10^3 (test code <0.01 See_Comment [Auto mated = 9944550403) message] The s ystem which generated this result transmitted reference range : 10*3/?L. The reference range was not used to interpret this result as normal/abnormal . GRAN MAT (NEUT) % 53.4 % (test code = 770-8) IMM GRAN % (test code 0.60 % = 4382160756) LYMPH % (test code = 36.2 % 736-9) MONO % (test code = 6.4 % 5905-5) EOS % (test code = 3.3 % 713-8) BASO % (test code = 0.1 % 706-2) GRAN MAT x10^3(ANC) 3.58 10*3/uL 1.88-7.09 (test code = 1270145317) IMM GRAN x10^3 (test 0.04 10*3/uL 0.00-0.06 code = 5336932454) LYMPH x10^3 (test code 2.43 10*3/uL 1.32-3.29 = 731-0) MONO x10^3 (test code 0.43 10*3/uL 0.33-0.92 = 742-7) EOS x10^3 (test code = 0.22 10*3/uL 0.03-0.39 711-2) BASO x10^3 (test code <0.03 0.01-0.07 = 704-7) Lab Interpretation Abnormal (test code = 01175-8) [facility] RegionalUrinalysis2021-03-11 03:27:11 Test Item Value Reference Range Interpretation Comments APPEARANCE (test code = Clear Clear 9201407227) COLOR (test code = Straw Yellow A 9842801057) PH (test code = 4.8-8.0 2412844727) SP GRAVITY (test code = 1.003-1.030 5708352738) GLU U QUAL (test code = 500 mg/dL Normal A 9139028601) BLOOD (test code = Negative Negative 6691612824) KETONES (test code = Negative Negative 4867648837) PROTEIN (test code = Negative Negative 2887-8) UROBILIN (test code = Normal Normal 3514153373) BILIRUBIN (test code = Negative Negative 1843189414) NITRITE (test code = Negative Negative 5001907837) LEUK KEVEN (test code = 25/uL Negative A 9076132176) RBC/HPF (test code = See_Comment [Autom ated message] 5863685250) The system [employer] generated this result transmit zoila reference range : 0 - 3 HPF. The refe rence range was not u sed to interpret th is result as normal/abnormal . WBC/HPF (test code = See_Comment [Autom ated message] 2787534631) The system [employer] generated this result transmit zoila reference range : 0 - 5 HPF. The refe rence range was not u sed to interpret th is result as normal/abnormal . BACTERIA (test code = Negative Negative 5690805149) MUCOUS (test code = Slight Negative LPF A 3189113103) SQ EPITH (test code = HPF 9924990459) Lab Interpretation (test Abnormal code = 97866-4) [facility] [id number] 03:00:28 Test Item Value Reference Range Interpretation Comments TROPONIN I (test <0.012 See_Comment [Automated code = 3777017481) message] The system which generated this result [...] ? Lab Interpretation Normal (test code = 94996-7) [facility] RegionalN-TERMINAL [id number] 02:57:10 Test Item Value Reference Range Interpretation Comments NT-proBNP (test code 25 pg/mL See_Comment [Autom ated = 7244787156) message] The system which generated this result transmitted reference range : <=125. The reference range was not used to interpret this result as normal/abnormal . MADISYN (test code = MADISYN) Biotin has been reported to cause a negative bias, interpret results relative to patient's use of biotin. Lab Interpretation Normal (test code = 62015-3) [facility] RegionalB[facility] Metabolic Panel (NA, K, CL, CO2, GLUCOSE, BUN, CREATININE, CA)2020-09-14 02:48:49 Test Item Value Reference Range Interpretation Comments NA (test code = 135 mmol/L 135-145 5345714621) K (test code = 3.6 mmol/L 3.5-5.0 9856714632) CL (test code = 101 mmol/L 98-108 8200844998) CO2 TOTAL (test code = 23 mmol/L 23-31 3411685087) AGAP (test code = 2-16 9190781346) BUN (test code = 10 mg/dL 7-23 1101899697) GLUCOSE (test code = 296 mg/dL 70-110 H 0861878334) CREATININE (test code = 0.62 mg/dL 0.50-1.04 1332364559) CALCIUM (test code = 9.7 mg/dL 8.6-10.6 9504880751) eGFR Calculation mL/min/1.73m2 (Non-) (test code = 4845759167) eGFR Calculation mL/min/1.73m2 () (test code = 6785987640) MADISYN (test code = MADISYN) Association of [...] tests). Lab Interpretation Abnormal (test code = 21709-7) [facility] RegionalHepatic Function Panel (ALB, T.PRO, BILI T, BU/BC, ALT, AST, ALK PHOS)2020-09-14 02:48:48 Test Item Value Reference Range Interpretation Comments TOTAL BILI (test code = 9873589201) 0.4 mg/dL 0.1-1.1 BILI UNCON (test code = 0034110690) 0.4 mg/dL 0.1-1.1 BILI CONJ (test code = 1908476203) 0.0 mg/dL 0.0-0.3 T PROTEIN (test code = 6363411625) 7.7 g/dL 6.3-8.2 ALBUMIN (test code = 4246774017) 5.0 g/dL 3.5-5.0 ALK PHOS (test code = 0263356936) 78 U/L 34-122 ALTv (test code = 1742-6) 19 U/L 5-35 AST(SGOT) (test code = 2902567901) 25 U/L 13-40 Lab Interpretation (test code = Normal 71170-0) [facility] RegionalLipase [id number] 02:48:48 Test Item Value Reference Range Interpretation Comments LIPASE (test code = 1003996563) 38 U/L 0-220 Lab Interpretation (test code = Normal 02960-4) [facility] RegionalCOVID-19 (ID NOW RAPID TESTING)2020-09-14 02:36:29 Test Item Value Reference Range Interpretation Comments SARS-CoV-2 Rapid ID NOW Positive Not Detected A (test code = 82640-3) MADISYN (test code = MADISYN) ID NOW COVID-19 Assay is an isothermal nucleic acid amplification test intended for the qualitative detection of nucleic acid from SARS-CoV-2 viral RNA in nasopharyngeal (DRILL [employer]) specimens. It is used under Emergency Use [...] indicated. Lab Interpretation Abnormal (test code = 97317-0) [facility] RegionalCBC with [id number] 02:30:06 Test Item Value Reference Range Interpretation Comments WBC (test code = See_Comment [Automated message] 6690-2) The system [employer] generated this result transmitted ref erence range: 4.30 - 1 1.10 10*3/?L. The re ference range was not u sed to interpret this result as normal/abnor mal. RBC (test code = See_Comment [Automated message] 789-8) The system [employer] generated this result transmitted ref erence range: [...] RDW-SD (test code 41.8 fL 39.0-49.9 = 58632-3) RDW-CV (test code 12.8 % 12.0-15.5 = 788-0) PLT (test code = See_Comment [Automated message] 777-3) The system whic h generated this result transmitted ref erence range: 166 - 35 8 10*3/?L. The re ference range was not u sed to interpret this result as normal/abnor mal. MPV (test code = 11.2 fL 9.5-12.9 23705-6) NRBC/100 WBC (test See_Comment [Automat ed message] code = 9872964263) The syste m which generated this result transmitted ref erence range: 0.0 - 10 .0 /100 WBCs. The refer ence range was not u sed to interpret this result as normal/abnor mal. NRBC x10^3 (test <0.01 See_Comment [Automated message] code = 8310637455) The syste m which generated this result transmitted ref erence range: 10*3/?L. The reference range was not used to interpr et this result as normal/abnormal . GRAN MAT (NEUT) % 54.0 % (test code = 770-8) IMM GRAN % (test 0.70 % code = 2000669457) LYMPH % (test code 36.2 % = 736-9) MONO % (test code 6.0 % = 5905-5) EOS % (test code = 2.8 % 713-8) BASO % (test code 0.3 % = 706-2) GRAN MAT 3.13 10*3/uL 1.88-7.09 x10^3(ANC) (test code = 7372175323) IMM GRAN x10^3 0.04 10*3/uL 0.00-0.06 (test code = 1946286429) LYMPH x10^3 (test 2.10 10*3/uL 1.32-3.29 code = 731-0) MONO x10^3 (test 0.35 10*3/uL 0.33-0.92 code = 742-7) EOS x10^3 (test 0.16 10*3/uL 0.03-0.39 code = 711-2) BASO x10^3 (test <0.03 0.01-0.07 code = 704-7) [facility] WITH [id number] 01:35:00 Test Item Value Reference Range Interpretation Comments WBC (test code = See_Comment [Automated 9807-2) message] The sy stem which generated this result transmitted reference range : 4.30 - 11.10 10*3/?L. The reference range was not used to interpret this result as normal/abnormal . RBC (test code = See_Comment [Automated 009-8) message] The sy stem which generated this [...] RDW-SD (test code = 40.8 fL 39-49.9 48753-0) RDW-CV (test code = 12.5 % 12-15.5 788-0) PLT (test code = See_Comment [Automated 777-3) message] The sy stem which generated this result transmitted reference range : 166 - 358 10*3/ ?L. The reference r aiden was not used to interpret this result as normal/abnormal . MPV (test code = 11.0 fL 9.5-12.9 38708-9) IPF % (test code = 5.7 % 1.3-7.7 Platelet count 7149490006) measured by fluorescence method. NRBC/100 WBC (test See_Comment [Automat ed code = 2993184800) message] The system which generated this result transmitted reference range : 0.0 - 10.0 /100 WBCs. The refer ence range was not u sed to interpret th is result as normal/abnormal . NRBC x10^3 (test code <0.01 See_Comment [Auto mated = 7070333878) message] The s ystem which generated this result transmitted reference range : 10*3/?L. The reference range was not used to interpret this result as normal/abnormal . GRAN MAT (NEUT) % 60.2 % (test code = 770-8) IMM GRAN % (test code 1.60 % = 2306232934) LYMPH % (test code = 29.4 % 736-9) MONO % (test code = 6.2 % 5905-5) EOS % (test code = 2.3 % 713-8) BASO % (test code = 0.3 % 706-2) GRAN MAT x10^3(ANC) 5.31 10*3/uL 1.88-7.09 (test code = 7603514514) IMM GRAN x10^3 (test 0.14 10*3/uL 0-0.06 H code = 2121267945) LYMPH x10^3 (test code 2.59 10*3/uL 1.32-3.29 = 731-0) MONO x10^3 (test code 0.55 10*3/uL 0.33-0.92 = 742-7) EOS x10^3 (test code = 0.20 10*3/uL 0.03-0.39 711-2) BASO x10^3 (test code 0.03 10*3/uL 0.01-0.07 = 704-7) Lab Interpretation Abnormal (test code = 24340-4) [facility] RegionalAD,CLC OR [facility] ONLY - INFLUENZA A & B DIRECT [id number] 01:26:00 Test Item Value Reference Range Interpretation Comments Influenza A (test code = 03287-3) Negative Negative Influenza B (test code = 42096-7) Negative Negative Lab Interpretation (test code = Normal 35210-7) [facility] Metabolic Panel (NA, K, CL, CO2, GLUCOSE, BUN, CREATININE, CA)2019-07-28 01:21:00 Test Item Value Reference Range Interpretation Comments NA (test code = 137 mmol/L 135-145 0007970697) K (test code = 3.8 mmol/L 3.5-5 8594308896) CL (test code = 100 mmol/L 98-108 2184032091) CO2 TOTAL (test code = 24 mmol/L 23-31 4181217623) AGAP (test code = 2-16 3126862761) BUN (test code = 13 mg/dL 7-23 6328902680) GLUCOSE (test code = 245 mg/dL 70-110 H 8449502610) CREATININE (test code = 0.49 mg/dL 0.5-1.04 L 5153132457) CALCIUM (test code = 9.8 mg/dL 8.6-10.6 7463990881) eGFR Calculation mL/min/1.73m2 (Non-) (test code = 5351125035) eGFR Calculation mL/min/1.73m2 () (test code = 1843102206) MADISYN (test code = MADISYN) Association of [...] tests). Lab Interpretation Abnormal (test code = 62319-8) [facility]Hep[facility] (ALB, T.PRO, BILI T, BU/BC, ALT, AST, ALK PHOS)2019-07-28 01:21:00 Test Item Value Reference Range Interpretation Comments TOTAL BILI (test code = 0811197627) 0.3 mg/dL 0.1-1.1 BILI UNCON (test code = 7174760431) 0.1 mg/dL 0.1-1.1 BILI CONJ (test code = 8655353509) 0.0 mg/dL 0-0.3 T PROTEIN (test code = 6179204819) 8.2 g/dL 6.3-8.2 ALBUMIN (test code = 0763061825) 5.0 g/dL 3.5-5 ALK PHOS (test code = 5294386137) 121 U/L 34-122 ALTv (test code = 1742-6) 33 U/L 5-35 AST(SGOT) (test code = 9186508949) 30 U/L 13-40 Lab Interpretation (test code = Normal 73686-3) [facility] RegionalRAPID STREP SCREEN FOR GROUP [id number] 01:19:00 Test Item Value Reference Range Interpretation Comments Streptococcus pyogenes (group A) Negative Negative antigen (test code = 43766-9) Lab Interpretation (test code = Normal 87652-4) [facility] RegionalXR CHEST 2 [id number] 00:53:20Impression: No acute cardiopulmonary changes. Small sized [...] unremarkable. Smallsized hiatal hernia is present. [facility], Radiant Results Inft User - 07/27/2019 [...] reviewed this study and agree withthe above report.[facility] (NA, K, CL, CO2, GLUCOSE, BUN, CREATININE, CA)2019-03-11 20:52:00 Test Item Value Reference Range Interpretation Comments NA (test code = 141 mmol/L 135-145 6609150620) K (test code = 3.6 mmol/L 3.5-5 9838655252) CL (test code = 104 mmol/L 98-108 4975391159) CO2 TOTAL (test code = 24 mmol/L 23-31 1013344304) AGAP (test code = 2-16 6672274504) BUN (test code = 19 mg/dL 7-23 0962050526) GLUCOSE (test code = 161 mg/dL 70-110 H 3629330907) CREATININE (test code = 0.51 mg/dL 0.5-1.04 9835477716) CALCIUM (test code = 9.4 mg/dL 8.6-10.6 1925856160) eGFR Calculation mL/min/1.73m2 (Non-) (test code = 5397509711) eGFR Calculation mL/min/1.73m2 () (test code = 4623509465) MADISYN (test code = MADISYN) Association of [...] tests). Lab Interpretation Abnormal (test code = 85417-2) [facility]Hep[facility] (ALB, T.PRO, BILI T, BU/BC, ALT, AST, ALK PHOS)2019-03-11 20:52:00 Test Item Value Reference Range Interpretation Comments TOTAL BILI (test code = 2164874035) 0.6 mg/dL 0.1-1.1 BILI UNCON (test code = 2416798459) 0.5 mg/dL 0.1-1.1 BILI CONJ (test code = 6784671222) 0.0 mg/dL 0-0.3 T PROTEIN (test code = 1224676443) 7.7 g/dL 6.3-8.2 ALBUMIN (test code = 1087241391) 4.9 g/dL 3.5-5 ALK PHOS (test code = 1235140808) 61 U/L 34-122 ALT(SGPT) (test code = 4021151597) 26 U/L 9-51 AST(SGOT) (test code = 5849436699) 28 U/L 13-40 Lab Interpretation (test code = Normal 10005-2) [id number] 20:52:00 Test Item Value Reference Range Interpretation Comments LIPASE (test code = 6957485204) 22 U/L 0-220 Lab Interpretation (test code = Normal 65219-8) [facility]00 Test Item Value Reference Range Interpretation Comments APTT Patient (test See_Comment L [Automat ed code = 3173-2) message] The system which generated this result transmitted reference range : 23 - 38 Seconds . The reference range was not used to interpr et this result as normal/abnormal . MADISYN (test code = MADISYN) The [facility] patient population mean normal value for aPTT is 30 seconds. Lab Interpretation Abnormal (test code = 53121-7) [facility] (PT[facility] / [id number] 20:38:00 Test Item Value Reference Range Interpretation [...] tions. Lab Interpretation (test Normal code = 93440-4) [facility] WITH [id number] 20:33:00 Test Item Value Reference Range Interpretation Comments WBC (test code = See_Comment [Automated 90-2) message] The sy stem which generated this [...] RDW-SD (test code = 44.3 fL 39-49.9 59010-0) RDW-CV (test code = 12.9 % 12-15.5 788-0) PLT (test code = See_Comment [Automated 777-3) message] The sy stem which generated this result transmitted reference range : 166 - 358 10*3/ ?L. The reference r aiden was not used to interpret this result as normal/abnormal . MPV (test code = 10.9 fL 9.5-12.9 11770-5) NRBC/100 WBC (test See_Comment [Automat ed code = 4423274247) message] The system which generated this result transmitted reference range : 0.0 - 10.0 /100 WBCs. The refer ence range was not u sed to interpret th is result as normal/abnormal . NRBC x10^3 (test code <0.01 See_Comment [Auto mated = [id number]) message] The s ystem which generated this result transmitted reference range : 10*3/?L. The reference range was not used to interpret this result as normal/abnormal . GRAN MAT (NEUT) % 86.3 % (test code = 770-8) IMM GRAN % (test code 0.50 % = 3892350214) LYMPH % (test code = 8.8 % 736-9) MONO % (test code = 4.0 % 5905-5) EOS % (test code = 0.2 % 713-8) BASO % (test code = 0.2 % 706-2) GRAN MAT x10^3(ANC) 8.24 10*3/uL 1.88-7.09 H (test code = 7225083864) IMM GRAN x10^3 (test 0.05 10*3/uL 0-0.06 code = 5964298024) LYMPH x10^3 (test code 0.84 10*3/uL 1.32-3.29 L = 731-0) MONO x10^3 (test code 0.38 10*3/uL 0.33-0.92 = 742-7) EOS x10^3 (test code = <0.03 0.03-0.39 L 711-2) BASO x10^3 (test code <0.03 0.01-0.07 = 704-7) Lab Interpretation Abnormal (test code = 03334-9) [facility]"
[2023-05-07 18:27] LABS: Absolute Lymphocytes (CBC) 2.2 K/uL (0.7-4.9); Hematocrit 36.6 % (36.0-45.0); Lymphocytes % 25.7 % (15.3-44.8); MCV 91.3 fL (80-100); MPV 8.4 fL (7.6-11.3); Platelets 335 thou/uL (152-406); RBC Red Blood Cell Count 4.01 M/uL (3.86-4.86)
[2023-05-07 18:36] LABS: Protime INR 0.85
[2023-05-07 18:59] LABS: Specific Gravity 1.006 (1.005-1.030); Urine Bilirubin NEGATIVE (Negative); Urine Blood Negative (Negative); Urine Clarity Clear (Clear); Urine Color Colorless (Yellow); Urine Glucose NEGATIVE (Negative); Urine Protein NEGATIVE (Negative); Urine Urobilinogen Normal (Normal); Urine pH 7.5 (5.0-7.0)
[2023-05-07] MEDS ORDERED: LORazepam 2 MG/ML VIAL ONE (19:05)
[2023-05-07 19:23] LABS: ALT/SGPT 25 U/L (13-56); AST/SGOT 27 U/L (15-37); Albumin 4.7 g/dL (3.4-5.0); Alkaline Phosphatase 89 U/L (45-117); BUN Blood Urea Nitrogen 8 mg/dL (7-18); Bicarbonate 29 mEq/L (21-32); Bilirubin Total 0.4 mg/dL (0.2-1.0); Glomerular Filtration Rate 84 ml/min (=/>90); Glucose Level 135 mg/dL (74-106); Potassium 3.1 mEq/L (3.5-5.1); Sodium Level 132 mEq/L (136-145); Troponin High Sensitivity 6.1 pg/mL (<58.9)
[2023-05-07 19:30] LABS: Bilirubin Direct < 0.1 mg/dL (0-0.2); Bilirubin Indirect, Calculated ND mg/dL (0.2-0.8)
[2023-05-07 19:34] LABS: Barbiturates NEGATIVE (NEGATIVE); Benzodiazepines NEGATIVE (NEGATIVE); Cocaine NEGATIVE (NEGATIVE); METHAMPHETAM NEGATIVE (NEGATIVE); Opiates NEGATIVE (NEGATIVE); Phencyclidine NEGATIVE (NEGATIVE); THC Cannibis NEGATIVE (NEGATIVE)
[2023-05-07] MEDS ORDERED: POTASSIUM CL SA 10 MEQ TAB PO ONE (19:59)
[2023-05-07] MEDS ORDERED: NA CHLORIDE 0.9% 1,000 ML ONE (19:59)
--- NOTE | 2023-05-07 23:23 | EDPHYS ---
Physician Documentation [facility] Name: Dolores Pérez Age: 62 yrs Sex: Female : 1960 Arrival Date: 05/07/2023 Time: 17:52 Bed 15 Private MD: ED Physician Arthur Smith HPI: 05/07 21:38 This 62 yrs old Female presents to ER via EMS with complaints of Anxiety. kb 21:38 The patient presents to the emergency department with depression. Onset: The kb symptoms/episode began/occurred and became worse today. Past psychiatric history: Prior diagnosis: depression. Associated signs and symptoms: Pertinent positives; depression, suicide ideation. Severity of symptoms: At their worst the symptoms were moderate in the emergency department the symptoms are unchanged. The patient has not experienced similar symptoms in the past. The patient has not recently seen a physician. Pt is a 62 year old female who presents for depression. States she has been doing everything for her , but they keep having arguments. States if she forgets something she gets yelled at. is currently admitted to the hospital, pt was here with him and left after arguing. Pt was upset when she left the ED. States she got home and looked at a gun but didn't have any bullets. Called 911 because her BP was up. States she sees a psychiatrist, but the medication isn't working. Reports she has been inpatient in the past at [facility] after suicide attempt by stabbing herself in the chest. . Historical: - Allergies: 17:56 NSAIDS; ld1 17:56 peanuts; ld1 17:56 Prednisone; ld1 17:56 sesame seed; ld1 17:56 Sulfa (Sulfonamide Antibiotics); ld1 - PMHx: 17:56 Asthma; Anxiety; COPD; depressive disorder; diabetes mellitus; High Cholesterol; ld1 Hypertension; Hypothyroidism; Transient cerebral ischemia; - Immunization history:: Adult Immunizations up to date. - Social history:: Smoking status: Patient reports the use of cigarette tobacco products, smokes one-half pack cigarettes per day, Patient/guardian denies using alcohol. ROS: 21:36 Constitutional: Negative for fever, chills, and weight loss, kb 21:36 Psych: Positive for anxiety, depression, suicidal ideation, 21:36 All other systems are negative, Exam: 21:36 Constitutional: This is a well developed, well nourished patient who is awake, alert, kb and in no acute distress. Head/Face: Normocephalic, atraumatic. ENT: Moist Mucous membranes Cardiovascular: Regular rate Respiratory: Respirations even and unlabored. No increased work of breathing. Talking in full sentences Abdomen/GI: Soft, non-tender. No distention Skin: Warm, dry with normal turgor. Normal color. MS/ Extremity: Pulses equal, no cyanosis. Neurovascular intact. Full, normal range of motion. Neuro: Awake and alert, GCS 15, oriented to person, place, time, and situation. Moves all extremities. Normal gait. 21:36 Psych: Behavior/mood is cooperative, depressed, Affect is animated, Oriented to person, place, time, Patient having thoughts of suicide. Plan for suicide is states she looked at a gun when she got home but couldn't find bullets Judgement / Insight is normal. Memory is normal. Delusions/hallucinations are not present. 22:10 ECG was reviewed by the Attending Physician. Vital Signs: 17:54 BP 144 / 88; Pulse 86; Resp 18; Temp 98.3(O); Pulse Ox 100% on R/A; Weight 66.22 kg; ld1 Height 5 ft. 3 in. ; Pain 0/10; 18:47 BP 145 / 104; Pulse 93; Resp 23; Temp 97.5(TE); Pulse Ox 100% on R/A; tm6 19:00 BP 161 / 90; Pulse 86; Resp 16; Temp 9.5(O); Pulse Ox 100% ; Pain 4/10; nw1 19:30 BP 135 / 72; Pulse 86; Resp 17; Pulse Ox 100% on R/A; nw1 20:00 BP 158 / 82; Pulse 90; Resp 14; Pulse Ox 100% on R/A; nw1 21:23 BP 174 / 86; Pulse 77; Resp 16; Pulse Ox 100% on R/A; nw1 17:54 Body Mass Index 25.86 (66.22 kg, 160.02 cm) ld1 17:54 Pain Scale: Adult ld1 19:00 Pain Scale: Adult nw1 19:00 leg cramps nw1 MDM: 17:55 Patient medically screened. kb 21:38 Data reviewed: vital signs, nurses notes. kb 23:21 Differential diagnosis: depression, acute stress reaction. Consideration of kb Admission/Observation Escalation of care including admission/observation considered. transfer to inpatient psych considered, but [facility] screener recommends outpatient treatment and pt states she is not suicidal and has no intent to kill herself. Historians other than the Patient: EMS: [facility]. Counseling: I had a detailed discussion with the patient and/or guardian regarding the historical points, exam findings, and any diagnostic results supporting the discharge/admit diagnosis, lab results, the need for outpatient follow up, a family practitioner, a psychiatrist, to return to the emergency department if symptoms worsen or persist or if there are any questions or concerns that arise at home. 05/07 17:55 Order name: Acetaminophen; Complete Time: 19:34 kb 05/07 17:55 Order name: Basic Metabolic Panel; Complete Time: 19:34 kb 05/07 17:55 Order name: CBC with Diff; Complete Time: 18:31 kb 05/07 17:55 Order name: ETOH Level; Complete Time: 19:34 kb 05/07 17:55 Order name: Hepatic Function; Complete Time: 19:34 kb 05/07 17:55 Order name: PT-INR; Complete Time: 18:37 kb 05/07 17:55 Order name: Ptt, Activated; Complete Time: 18:37 kb 05/07 17:55 Order name: Salicylate; Complete Time: 19:34 kb 05/07 17:55 Order name: Urinalysis w/ reflexes; Complete Time: 19:04 kb 05/07 17:55 Order name: Urine Drug Screen; Complete Time: 19:35 kb 05/07 17:55 Order name: Troponin High Sensitivity; Complete Time: 19:34 kb 05/07 17:55 Order name: EKG; Complete Time: 17:56 kb 05/07 17:55 Order name: EKG - Nurse/Tech; Complete Time: 18:40 kb 05/07 17:55 Order name: IV Saline Lock; Complete Time: 18:28 kb 05/07 17:55 Order name: Labs collected and sent; Complete Time: 18:28 kb 05/07 17:55 Order name: Suicide Screening ([place]); Complete Time: 18:54 kb EC:10 Rate is 85 beats/min. Rhythm is regular. QRS [place] is Normal. MD interval is normal at kb 132 msec. QRS interval is normal at 90 msec. QT interval is normal at 454 msec. Administered Medications: 18:54 Drug: Ativan IVP 0.5 mg IVP once Route: IVP; Site: left antecubital; tm6 19:57 Drug: NS 0.9% IV 1000 ml IV at 1000 ml once Route: IV; Rate: 1000 ml; Site: left nw1 antecubital; 19:57 Drug: Potassium Chloride PO 40 mEq PO once Route: PO; nw1 Disposition Summary: 05/07/23 23:23 Discharge Ordered Notes: Location: Home kb Condition: Stable kb Diagnosis - Acute stress reaction kb Followup: kb - With: Emergency Department - When: As needed - Reason: Worsening of condition Followup: kb - With: Private Physician - When: 2 - 3 days - Reason: Recheck today's complaints, Continuance of care, Re-evaluation by your physician Discharge Instructions: - Discharge Summary Sheet kb - Suicidal Feelings: How to Help Yourself kb - Panic Attack, Hyah-sw-Ccmv kb - Managing Depression, Adult kb Forms: - Medication Reconciliation Form kb - Thank You Letter kb - Antibiotic Education kb - Prescription Opioid Use kb - Patient Portal Instructions kb - Leadership Thank You Letter kb Addendum: 05/12/2023 10:52 I was immediately available for consultation during this patient's visit. I did not e c2 personally see the patient or guide the patient's care.. Signatures: Dispatcher [employer] Felicia Lema, ALARM SIGNAL OPERATOR-C ALARM SIGNAL OPERATOR-Jermainb Cornelia Yi RN RN ld1 Arthur Smith MD MD ec2 Katie Lane RN RN tm6 Mallorie Madrigal RN RN nw1
--- NOTE | 2023-05-07 23:23 | ER ---
Nurse's Notes [facility] Name: Dolores Pérez Age: 62 yrs Sex: Female : 1960 Arrival Date: 05/07/2023 Time: 17:52 Bed 15 Private MD: Diagnosis: Acute stress reaction Presentation: 05/07 17:54 Chief complaint: EMS states: toned out to patient home for HTN and anxiety. Coronavirus ld1 screen: At this time, the client does not indicate any symptoms associated with coronavirus-19. Ebola Screen: No symptoms or risks identified at this time. Initial Sepsis Screen: Does the patient meet any 2 criteria? No. Patient's initial sepsis screen is negative. Does the patient have a suspected source of infection? No. Patient's initial sepsis screen is negative. Risk Assessment: Do you want to hurt yourself or someone else? Patient reports no desire to harm self or others. Onset of symptoms was May 07, 2023. 17:54 Method Of Arrival: EMS: [facility] ld1 17:54 Acuity: AARON 3 ld1 18:46 Risk Assessment: Do you want to hurt yourself or someone else? Patient reports tm6 desire/thoughts of hurting themselves or someone else. Provider notified. Triage Assessment: 17:56 General: Appears in no apparent distress. comfortable, Behavior is calm, cooperative, ld1 appropriate for age. Pain: Denies pain. EENT: No signs and/or symptoms were reported regarding the EENT system. Neuro: Level of Consciousness is awake, alert, obeys commands, Oriented to person, place, time, situation. Cardiovascular: Capillary refill < 3 seconds Patient's skin is warm and dry. Respiratory: Airway is patent Respiratory effort is even, unlabored. GI: Abdomen is flat, non-distended. : No signs and/or symptoms were reported regarding the genitourinary system. Derm: No signs and/or symptoms reported regarding the dermatologic system. Musculoskeletal: No signs and/or symptoms reported regarding the musculoskeletal system. Historical: - Allergies: 17:56 NSAIDS; ld1 17:56 peanuts; ld1 17:56 Prednisone; ld1 17:56 sesame seed; ld1 17:56 Sulfa (Sulfonamide Antibiotics); ld1 - PMHx: 17:56 Asthma; Anxiety; COPD; depressive disorder; diabetes mellitus; High Cholesterol; ld1 Hypertension; Hypothyroidism; Transient cerebral ischemia; - Immunization history:: Adult Immunizations up to date. - Social history:: Smoking status: Patient reports the use of cigarette tobacco products, smokes one-half pack cigarettes per day, Patient/guardian denies using alcohol. Screenin:57 [facility] ED Fall Risk Assessment (Adult) History of falling in the last 3 months, ld1 including since admission No falls in past 3 months (0 pts). Abuse screen: Denies threats or abuse. Denies injuries from another. Nutritional screening: No deficits noted. Tuberculosis screening: No symptoms or risk factors identified. Assessment: 17:57 Reassessment: See triage assessment. ld1 18:46 Reassessment: RN asked patient if she has thought about harming herself. Patient stated tm6 "I went home and looked at the gun but it didn't have any bullets in it." Provider notified. 20:12 Reassessment: Report received from EM nurse. Rounds made and pt noted in bed sitting nw1 upright on her cell phone. Pt noted anxious and states that her who is in the hospital stressed her out and she was taking her bp every 5 min after taking her lisinopril and HCTZ and noted that her bp was going up and her anxiety was increasing. Pt states that she has a past medical history of anxiety and is on medication for it. Pt states that the Ativan she received prior to shift change is starting to work and her anxiety is decreasing. When asked if pt wants to harm herself or others, she replied "no". When asking patient if she could harm or kill herself at this time, would she, she stated "no". Also asked patient if she has a plan on how to kill herself if she could, she stated "no". VSS at this time. Call light at bedside. Lights dimmed for comfort. Will continue to monitor. General: Appears slender, well groomed, well nourished, Behavior is anxious, restless. Neuro: No deficits noted. Cardiovascular: Reports high blood pressure. Rhythm is regular. Respiratory: No deficits noted. GI: No deficits noted. : No deficits noted. Derm: No deficits noted. Musculoskeletal: No deficits noted. 22:05 Reassessment: Psych at bedside to assess patient at this time. nw1 Vital Signs: 17:54 BP 144 / 88; Pulse 86; Resp 18; Temp 98.3(O); Pulse Ox 100% on R/A; Weight 66.22 kg; ld1 Height 5 ft. 3 in. ; Pain 0/10; 18:47 BP 145 / 104; Pulse 93; Resp 23; Temp 97.5(TE); Pulse Ox 100% on R/A; tm6 19:00 BP 161 / 90; Pulse 86; Resp 16; Temp 9.5(O); Pulse Ox 100% ; Pain 4/10; nw1 19:30 BP 135 / 72; Pulse 86; Resp 17; Pulse Ox 100% on R/A; nw1 20:00 BP 158 / 82; Pulse 90; Resp 14; Pulse Ox 100% on R/A; nw1 21:23 BP 174 / 86; Pulse 77; Resp 16; Pulse Ox 100% on R/A; nw1 17:54 Body Mass Index 25.86 (66.22 kg, 160.02 cm) ld1 17:54 Pain Scale: Adult ld1 19:00 Pain Scale: Adult nw1 19:00 leg cramps nw1 ED Course: 17:53 Patient arrived in ED. ld1 17:55 Felicia Chavez FNP-C [facility] kb 17:55 Arthur Smith MD is Attending Physician. kb 17:56 Triage completed. ld1 17:56 Arm band placed on right wrist. ld1 17:57 Patient has correct armband on for positive identification. Placed in gown. Bed in low ld1 position. Call light in reach. Side rails up X2. syrup mixer assistant on. Pulse ox on. NIBP on. Door closed. Noise minimized. Warm blanket given. 17:57 No provider procedures requiring assistance completed. ld1 18:[address], JADEN is Primary Nurse. tm6 18:27 Missed attempt(s): 20 gauge in right antecubital area. tm6 18:28 Inserted saline lock: 20 gauge in left antecubital area, using aseptic technique. tm6 18:44 Safety Checks: The door is open or patient has been placed in a hallway bed/chair. tm6 18:44 EKG done, by ED staff. tm6 20:23 spoke with [facility]. for evaluation. bc6 05/08 00:01 IV discontinued, intact, bleeding controlled, No redness/swelling at site. Pressure nw1 dressing applied. Administered Medications: 05/07 18:54 Drug: Ativan IVP 0.5 mg IVP once Route: IVP; Site: left antecubital; tm6 19:57 Drug: NS 0.9% IV 1000 ml IV at 1000 ml once Route: IV; Rate: 1000 ml; Site: left nw1 antecubital; 19:57 Drug: Potassium Chloride PO 40 mEq PO once Route: PO; nw1 Medication: 17:57 VIS not applicable for this client. ld1 Outcome: 23:23 Discharge ordered by MD. brown 05/08 00:00 Discharged to home ambulatory, nw1 Condition: stable Discharge instructions given to patient, Instructed on discharge instructions, Demonstrated understanding of Pt became angry when seeing that the paper work stated "panic attack". Pt started yelling "fuck you" repeatedly as she was leaving. 00:01 Patient left the ED. nw1 Signatures: Felicia Chavez, OIL WELL SERVICE OPERATOR HELPER-C OIL WELL SERVICE OPERATOR HELPER-Cornelia Talavera, RN RN ld1 Leeanna Werner [address] RN RN tm6 Mallorie Madrigal RN RN nw1
[2023-05-08 00:54] VITALS: O2SAT 100
[2023-05-08 00:59] VITALS: TEMP 9.5
[2023-05-08 01:04] VITALS: BP 174/86
--- NOTE | 2023-05-08 09:47 | EKG ---
Test Date: 2023-05-07 Test Time: 18:35:30 Deputy Chief Sheriff: KARSTEN MEASUREMENT RESULTS: Intervals: Rate: 85 IN: 132 QRSD: 90 QT: 382 QTc: 454 [place]: P: 48 IN: 132 QRS: 49 T: 69 INTERPRETIVE STATEMENTS: Normal sinus rhythm Nonspecific ST abnormality Abnormal ECG Compared to ECG 05/02/2023 20:58:44 ST (T wave) deviation now present Electronically Signed On 05-08-23 09:45:26 CDT by Stephen Childress
== END 2023-05-08 00:01 | disposition home or self-care (01) ==
LOC: ER 17:52
DX: F43.0 Acute stress reaction (principal); F32.A Depression, unspecified; E11.9 Type 2 diabetes mellitus without complications; I10 Essential (primary) hypertension; F17.210 Nicotine dependence, cigarettes, uncomplicated; Z88.2 Allergy status to sulfonamides; Z88.6 Allergy status to analgesic agent; Z88.8 Allergy status to other drugs, medicaments and biological substances; Z91.010 Allergy to peanuts; Z91.018 Allergy to other foods
CPT/HCPCS: 93005; 85025; 80048; 36415; 85610; 80076; 85730; 81003; 84484; 80307; 96374; 99285; 80143; 80179; 82077; J7030

== ENCOUNTER 2023-05-17 18:08 | Emergency (ER) | payer OTHER ==
--- OUTSIDE RECORDS SUMMARY | 2023-05-17 18:14 | XMS REPORT | Continuity of Care Document ---
:1960 [facility] t Address [address] [facility] [address] [place] [address] Care Team Providers Name Role Phone PAULINA DUNHAM Primary Care Physician Unavailable Neida DUGGAN Attending Clinician Unavailable Neida Jiménez Attending Clinician Susan Rodriguez Attending Clinician Unknown, Attending Attending Clinician Unavailable SUSAN LEE Attending Clinician Unavailable Doctor Unassigned, [place] Attending Clinician Unavailable Only, Ang Db Test Attending Clinician Unavailable Monik Charles MD Attending Clinician MONIK CHARLES Attending Clinician Unavailable ALEX OCONNELL Attending Clinician Unavailable [place] Attending Clinician SHERRILL CONNOR Attending Clinician [...] Effective Date Expiration Date Teodora FALK II [id number] 2016 00:00:00 Problems Condition Condition Condition Status [...] ity of 00:00: [place] 00 Medical Branch [place] [employer] Active Anaphylaxis Uni vers ty to [...] to 4-10 ity of mide adverse 00:00: [place] Antibiot reaction 00 Medica l ics) s Branch Social History Social Habit Start Date Stop Date Quantity Comments Source Gender identity [facility] of Social 2023-02-26 2023-02-26 Univers ity of function 00:00:00 00:00:00 [facility] Exposure to 2022-08-14 2022-08-24 Not sure [facility] SARS-CoV-2 (event) 00:00:00 09:35:00 [facility] Tobacco use and 2022-08-24 2022-08-24 Smokeless Universit y of exposure 00:00:00 00:00:00 tobacco non-user [facility] Sex Assigned [birth year] Universit y of 00:00:00 00:00:00 [facility] Smoking Status Start Date Stop Date Source Never smoked tobacco [facility] Medications Ordered Filled Start Stop Current Ordering Indication Dosage Frequency Signature Comments Components Source Medication Medication Date Date Medication? Clinician (SIG) Name Name bromphenira Yes [id number] 5mL Take 5 mL Univers mine-pseudo 2-18 by mouth 4 it y of ephedrine-D 00:[place] (four[place] (BROMFED 00 times Medical DM) 2-30-10 daily as Bran ch mg/5 mL needed for syrup Congestion /Allergies . bromphenira Yes [id number] 5mL Take 5 mL Univers mine-pseudo 2-18 by mouth 4 it y of ephedrine-D 00:00: (four[place] (BROMFED 00 times Medical DM) 2-30-10 daily as Bran ch mg/5 mL needed for syrup Congestion /Allergies . benzonatate Yes [id number] 100mg Take 1 Univers 100 mg 7-03 capsule by ity of capsule 00:00: mouth 3 [place] 00 (three) Medical times [place] daily as needed for Cough. loratadine Yes [id number] 10mg Take 1 U nivers (CLARITIN) 7-03 tablet by ity of 10 mg 00:00: mouth at [place] tablet 00 bedtime as Medical needed for Branch Allergies. benzonatate 2022-0 Yes [id number] 100mg Take 1 Univers 100 mg 7-03 capsule by ity of capsule 00:00: mouth 3 [place] 00 (three) Medical times Branch daily as needed for Cough. loratadine 2-0 Yes [id number] 10mg Take 1 U nivers (CLARITIN) 7-03 tablet by ity of 10 mg 00:00: mouth at [place] tablet 00 bedtime as Medical needed for Branch Allergies. benzonatate 2-0 Yes [id number] 100mg Take 1 Univers 100 mg 7-03 capsule by ity of capsule 00:00: mouth 3 [place] 00 (three) Medical times Branch daily as needed for Cough. loratadine 2-0 Yes [id number] 10mg Take 1 U nivers (CLARITIN) 7-03 tablet by ity of 10 mg 00:00: mouth at [place] tablet 00 bedtime as Medical needed for Branch Allergies. benzonatate 2-0 Yes [id number] 100mg Take 1 Univers 100 mg 7-03 capsule by ity of capsule 00:00: mouth 3 (three) Medical times Branch daily as needed for Cough. loratadine 2-0 Yes [id number] 10mg Take 1 U nivers (CLARITIN) 7-03 tablet by ity of 10 mg 00:00: mouth at [place] tablet 00 bedtime as Medical needed for Branch Allergies. benzonatate 2-0 Yes [id number] 100mg Take 1 Univers 100 mg 7-03 capsule by ity of capsule 00:00: mouth 3 00 (three) Medical times Branch daily as needed for Cough. loratadine 2-0 Yes [id number] 10mg Take 1 U nivers (CLARITIN) 7-03 tablet by ity of 10 mg 00:00: mouth at [place] tablet 00 bedtime as Medical needed for Branch Allergies. benzonatate 2022-0 Yes [id number] 100mg Take 1 Univers 100 mg 7-03 capsule by ity of capsule 00:00: mouth 3 [place] 00 (three) Medical times Branch daily as needed for Cough. loratadine 2022-0 Yes [id number] 10mg Take 1 U nivers (CLARITIN) 7-03 tablet by ity of 10 mg 00:00: mouth at [place] tablet 00 bedtime as Medical needed for Branch Allergies. benzonatate 2021-0 Yes [id number] 100mg Take 1 Univers 100 mg 2-01 capsule by ity of capsule 00:00: mouth 3 (three) Medical times Branch daily as needed for Cough. benzonatate 2021-0 Yes [id number] 100mg Take 1 Univers 100 mg 2-01 capsule by ity of capsule 00:00: mouth 3 (three) Medical times Branch daily as needed for Cough. benzonatate 2021-0 Yes [id number] 100mg Take 1 Univers 100 mg 2-01 capsule by ity of capsule 00:00: mouth (three) Medical times Branch daily as needed for Cough. benzonatate 2021-0 Yes [id number] 100mg Take 1 Univers 100 mg 2-01 capsule by ity of capsule 00:00: mouth (three) Medical times Branch daily as needed for Cough. benzonatate 2021-0 Yes [id number] 100mg Take 1 Univers 100 mg 2-01 capsule by ity of capsule 00:00: mouth (three) Medical times Branch daily as needed for Cough. benzonatate 2021-0 Yes [id number] 100mg Take 1 Univers 100 mg 2-01 capsule by ity of capsule 00:00: mouth (three) Medical times Branch daily as needed for Cough. benzonatate 2021-0 Yes [id number] 100mg Take 1 Univers 100 mg 2-01 capsule by ity of capsule 00:00: mouth (three) Medical times Branch daily as needed for Cough. benzonatate 2021-0 Yes [id number] 100mg Take 1 Univers 100 mg 2-01 capsule by ity of capsule 00:00: mouth (three) Medical times Branch daily as needed for Cough. benzonatate 2021-0 Yes [id number] 100mg Take 1 Univers 100 mg 2-01 capsule by ity of capsule 00:00: mouth (three) Medical times Branch daily as needed for Cough. benzonatate 2-0 Yes [id number] 100mg Take 1 Univers 100 mg 2-01 [...] Therapy: Other (see Comments) iopamidol 2020-07- No [id number] 120mL 120 mL, Univers (ISOVUE 2-25 12-24 Intravenou ity o f 370-500 mL) 00:15: 23:08 s, ONCE, 1 [place] injection 00 :00 dose, On Medica l 120 mL Fri Branch 06/29/21 at 1815, Routine amoxicillin 2020-07- No [id number] 1{tbl} Take 1 Univers -clavulanat 2-24 -04 [...] Indication s: acute pain ondansetron 2020-07- No [id number] 4mg Take 1 Univers 4 mg tablet 2-24 12-30 tablet by it y of 00:00: 05:59 mouth [place] 00 :00 every 8 Medical (eight) Branch hours for 5 days. atorvastati 2020-07 Yes 10mg 10 mg, Univ ers n (LIPITOR) 1-15 Oral, QHS, it y of tablet 10 03:00: First dose [place] mg 00 on Count Includes [facility] 05/20/21 Branch at 2100, Until Discontinu ed, Routine atorvastati 2020-07 Yes 10mg Take 10 mg Univers n 10 mg 1-14 by mouth ity of tablet 17:23: at [place] 01 bedtime. Medical Branch spironolact 2020-07 Yes [...] 40 mg 00 First dose Medical on [facility] 05/20/21 at 0900, Until Discontinu ed, Routine clopidogreL 2020-07 Yes 75mg 75 mg, Univ ers (PLAVIX) 1-14 Oral, QAM, ity o f tablet 75 15:00: First dose [place] mg 00 on Count Includes [facility] 05/20/21 Branch at 0900, Until Discontinu ed, Routine ALPRAZolam 2020-07 Yes .5mg 0.5 mg, Univ ers (XANAX) 1-14 Oral, ity of tablet 0.5 15:00: DAILY, [place] mg 00 First dose Medical on [facility] 05/20/21 at 0900, Until Discontinu ed, Routine spironolact 2020-07 Yes 25mg 25 mg, Univ ers one 1-14 Oral, BID, ity of (ALDACTONE) 14:00: First dose [place] tablet 25 00 on Count Includes [facility] mg 05/20/21 Branch at 0800, Until Discontinu ed, Routine Sliding 2020-07 Yes Subcutaneo Univ ers Scale 1-14 us, AC, ity of Insulin-Reg 13:30: First dose [place] ular + Fsbg [facility] on [facility]21 Branch at 0730, Until Discontinu ed, Routine levothyroxi 2020-07 Yes 100ug 100 mcg, U nivers ne 1-14 Oral, ity of (SYNTHROID) 12:00: QAM-0600, [place] tablet 100 00 First dose Med ical mcg on [facility] 05/20/21 at 0600, Until Discontinu ed, Routine pantoprazol 2020-07 Yes 40mg 40 mg, Univ ers e 1-14 Oral, ity of (PROTONIX) 06:30: DAILY, [place] EC tablet 00 First dose Medi hermelindo 40 mg (after Branch last modificati on) on [place] 05/20/21 at 0030, Until Discontinu ed cyclobenzap 2020-07 Yes 10mg 10 mg, Univ ers rine 1-14 Oral, ity of (FLEXERIL) 06:12: TIDPRN, [place] tablet 10 13 Starting Medica l mg on [facility] 05/20/21 at 0012, Until Discontinu ed, Routine, Muscle Spasms, leg pain polyethylen 2020-07 Yes 17g 17 g, Unive rs e glycol 1-14 Oral, ity of 3350 powder 06:04: [id number], [place] 17 g 16 Starting Medical on [facility] 05/20/21 at 0004, Until Discontinu ed, Routine, Constipati on glucagon 2020-07 Yes 1mg 1 mg, Univers (GLUCAGEN -14 Intramuscu ity of DIAGNOSTIC 05:29: lar, PRN, [place] KIT) 29 Starting Medical injection 1 on [facility] 05/19/21 at 2329, Until Discontinu ed, JEFFREY, Blood Glucose < or = 70 mg/dL and patient is unable to swallow or has mental changes. dextrose 50 2020-07 Yes 25mL 25 mL, Univ ers % in water 14 Slow IV ity of (D50W) 05:29: Push, PRN, [place] injection 29 Starting Medica l 25 mL on [facility] 05/19/21 at 2329, Until Discontinu ed, JEFFREY, Blood Glucose < or = 70 mg/dL and patient is unable to swallow or has mental status changes. ondansetron 2020-07 Yes 4mg 4 mg, Slow Univers (ZOFRAN 1-14 IV Push, ity of (PF)) 05:29: Q6HPRN, [place] injection 4 21 Starting Medi hermelindo mg on [facility] 05/19/21 at 2329, Until Discontinu ed, Routine, Nausea and Vomiting (N/V) morpHINE 2020-07 No 2mg 2 mg, Slow Un brice injection 2 14 11-15 IV Push, ity of mg 05:29: 05:28 Q4HPRN, [place] 11 :11 Starting Medical on [facility] Branch 05/19/21 at 2329, Until 05/20/21 at 2328, Routine, Pain (scale 7-10), Chest pain traMADoL 2020-07- No 50mg 50 mg, Univer s (ULTRAM) 07-2016 Oral, ity of tablet 50 05:29: 05:28 Q8HPRN, [place] mg 08 :08 Starting Medical on [facility] Branch 05/19/21 at 2329, Until 05/21/21 at 2328, Routine, Pain (scale 4-6) acetaminoph 2020-07 Yes 650mg 650 mg, Un brice en 14 Oral, ity of (TYLENOL) 05:29: Q6HPRN, [place] tablet 650 05 Starting Medic al mg on [facility] Branch 05/19/21 at 2329, Until Discontinu ed, Routine, Pain (scale 1-3) omeprazole 2020-07- No 20mg Take 20 mg Univers 20 mg 07-19 by mouth ity of capsule 23:30: 00:00 daily. [place] 33 :00 [facility] guaiFENesin 2020- No 100mg 100 mg, U nivers 100 mg/5 mL 09-14 Oral, ity of solution 05:00: 16:59 ONCE, 1 [place] 100 mg 00 :00 dose, Fri [facility] 09/13/20 at Branch 2300, Routine ketorolac 2020- No 30mg 30 mg, Unive rs (TORADOL) 09-1411 Slow IV ity of injection 03:30: 02:27 Push, [place] 30 mg 00 :00 ONCE, 1 Medical dose, [facility] 09/13/20 at 2130, JEFFREY
Fa culty member approving Restricted medication : DIANA BERG benzonatate Yes [id number] 100mg Take 1 Univers 100 mg 3-10 capsule by ity of capsule 00:00: mouth 3 [place] 00 (three) Medical times Branch daily as needed for Cough. benzonatate Yes [id number] 100mg Take 1 Univers 100 mg 3-10 capsule by ity of capsule 00:00: mouth 3 [place] 00 (three) Medical times Branch daily as needed for Cough. benzonatate 2020- No [id number] 100mg Take 1 Univers 100 mg 09-13- [...] 10 1929, JEFFREY mL codeine-gua 2019-0 Yes [id number] 10mL Take 10 mL Univers ifenesin -21 by mouth ity of 10-100 mg/5 00:00: every 6 [place] as mL solution 00 (six) Medical hours as Branch needed for Cough. albuterol 2020-0 Yes [id number] 2.5mg Inhale 3 Univers 2.5 mg /3 1-21 mL every 4 ity of mL (0.083 00:00: (four) [place] %) 00 hours as Medical nebulizer needed for Bran ch solution Wheezing or Shortness of Breath. May also nebulize one extra every 6 hours. albuterol 2020-0 Yes [id number] 2.5mg Inhale 3 Univers 2.5 mg /3 1-21 mL every 4 ity of mL (0.083 00:00: (four) [place] %) 00 hours as Medical nebulizer needed for Bran ch solution Wheezing or Shortness of Breath. May also nebulize one extra every 6 hours. albuterol 2020-0 Yes [id number] 2.5mg Inhale 3 Univers 2.5 mg /3 1-21 mL every 4 ity of mL (0.083 00:00: (four) [place] %) 00 hours as Medical nebulizer needed for Bran ch solution Wheezing or Shortness of Breath. May also nebulize one extra every 6 hours. albuterol 2020-0 Yes [id number] 2.5mg Inhale 3 Univers 2.5 mg /3 1-21 mL every 4 ity of mL (0.083 00:00: (four) [place] %) 00 hours as Medical nebulizer needed for Bran ch solution Wheezing or Shortness of Breath. May also nebulize one extra every 6 hours. albuterol 2020-0 Yes [id number] 2.5mg Inhale 3 Univers 2.5 mg /3 1-21 mL every 4 ity of mL (0.083 00:00: (four) [place] %) 00 hours as Medical nebulizer needed for Bran ch solution Wheezing or Shortness of Breath. May also nebulize one extra every 6 hours. albuterol 2020-0 Yes [id number] 2.5mg Inhale 3 Univers 2.5 mg /3 1-21 mL every 4 ity of mL (0.083 00:00: () [place] %) 00 hours as Medical nebulizer needed for Bran ch solution Wheezing or Shortness of Breath. May also nebulize one extra every 6 hours. albuterol 2020-0 Yes [id number] 2.5mg Inhale 3 Univers 2.5 mg /3 1-21 mL every 4 ity of mL (0.083 00:00: (four) [place] %) 00 hours as Medical nebulizer needed for Bran ch solution Wheezing or Shortness of Breath. May also nebulize one extra every 6 hours. albuterol 2020-0 Yes [id number] 2.5mg Inhale 3 Univers 2.5 mg /3 1-21 mL every 4 ity of mL (0.083 00:00: (four) [place] %) 00 hours as Medical nebulizer needed for Bran ch solution Wheezing or Shortness of Breath. May also nebulize one extra every 6 hours. albuterol 2020-0 Yes [id number] 2.5mg Inhale 3 Univers 2.5 mg /3 1-21 mL every 4 ity of mL (0.083 00:00: (four) [place] %) 00 hours as Medical nebulizer needed for Bran ch solution Wheezing or Shortness of Breath. May also nebulize one extra every 6 hours. albuterol 2020-0 Yes [id number] 2.5mg Inhale 3 Univers 2.5 mg /3 1-21 mL every 4 ity of mL (0.083 00:00: (four) [place] %) 00 hours as Medical nebulizer needed for Bran ch solution Wheezing or Shortness of Breath. May also nebulize one extra every 6 hours. albuterol 2020-0 Yes [id number] 2.5mg Inhale 3 Univers 2.5 mg /3 1-21 mL every 4 ity of mL (0.083 00:00: (four) [place] %) 00 hours as Medical nebulizer needed for Bran ch solution Wheezing or Shortness of Breath. May also nebulize one extra every 6 hours. albuterol 2020-0 Yes [id number] 2.5mg Inhale 3 Univers 2.5 mg /3 1-21 mL every 4 ity of mL (0.083 00:00: (four) [place] %) 00 hours as Medical nebulizer needed for Bran ch solution Wheezing or Shortness of Breath. May also nebulize one extra every 6 hours. albuterol 2020-0 Yes [id number] 2.5mg Inhale 3 Univers 2.5 mg /3 1-21 mL every 4 ity of mL (0.083 00:00: (four) [place] %) 00 hours as Medical nebulizer needed for Bran ch solution Wheezing or Shortness of Breath. May also nebulize one extra every 6 hours. albuterol 2020-0 Yes [id number] 2.5mg Inhale 3 Univers 2.5 mg /3 1-21 mL every 4 ity of mL (0.083 00:00: (four) [place] %) 00 hours as Medical nebulizer needed for Bran ch solution Wheezing or Shortness of Breath. May also nebulize one extra every 6 hours. albuterol 2020-0 Yes [id number] 2.5mg Inhale 3 Univers 2.5 mg /3 1-21 mL every 4 ity of mL (0.083 00:00: (four) [place] %) 00 hours as Medical nebulizer needed for Bran ch solution Wheezing or Shortness of Breath. May also nebulize one extra every 6 hours. albuterol 2020-0 Yes [id number] 2.5mg Inhale 3 Univers 2.5 mg /3 1-21 mL every 4 ity of mL (0.083 00:00: (four) [place] %) 00 hours as Medical nebulizer needed for Bran ch solution Wheezing or Shortness of Breath. May also nebulize one extra every 6 hours. codeine-gua 2020- No [id number] 10mL Take 10 mL Univers ifenesin 07-27 [...] 03/11/19 at 1430, JEFFREY dicyclomine 2018- Yes [id number] 10mg Take 1 Univers (BENTYL) 10 9-05 capsule by it y of mg capsule 00:00: mouth 4 [place] 00 (four) Medical times Branch daily. ondansetron 2018- Yes [id number] 4mg Take 1 Univers 4 mg 9-05 tablet by ity of disintegrat 00:00: mouth [place] ing tablet 00 every 4 Medica l (four) Branch hours as needed for Nausea and Vomiting (N/V). dicyclomine 2019-0 Yes [id number] 10mg Take 1 Univers (BENTYL) 10 9-05 capsule by it y of mg capsule 00:00: mouth 4 [place] 00 (four) Medical times Branch daily. ondansetron 2019-0 Yes [id number] 4mg Take 1 Univers 4 mg 9-05 tablet by ity of disintegrat 00:00: mouth [place] ing tablet 00 every 4 Medica l (four) Branch hours as needed for Nausea and Vomiting (N/V). dicyclomine 2019-0 Yes [id number] 10mg Take 1 Univers (BENTYL) 10 9-05 capsule by it y of mg capsule 00:00: mouth 4 [place] 00 (four) Medical times Branch daily. ondansetron Yes [id number] 4mg Take 1 Univers 4 mg 9-05 tablet by ity of disintegrat 00:00: mouth [place] ing tablet 00 every 4 Medica l (four) Branch hours as needed for Nausea and Vomiting (N/V). dicyclomine 2020- No [id number] 10mg Take 1 Univers (BENTYL) 10 9-05 03-10 capsule by i ty of mg capsule 00:00: 00:00 mouth 4 [place] as 00 :00 (four) Medical times Branch daily. ondansetron 2020- No [id number] 4mg Take 1 Univers 4 mg 9-05 [...] by mouth ity of tablet 14:40: at [place] [address] bedtime. Medical Branch omeprazole 2018-0 Yes 20mg Take 20 mg U nivers 20 mg 4-10 by mouth ity of capsule 14:40: daily. [place] [address] Medical Branch atorvastati 2018-0 Yes 10mg Take 10 mg Univers n 10 mg 4-10 by mouth ity of tablet 14:40: at [place] [address] bedtime. Medical Branch omeprazole 2018-0 Yes 20mg Take 20 mg U nivers 20 mg 4-10 by mouth ity of capsule 14:40: daily. [place] [address] Medical Branch atorvastati 2017-0 Yes 10mg Take 10 mg Univers n 10 mg 4-10 by mouth ity of tablet 14:40: at [place] [address] bedtime. Medical Branch omeprazole 2018-0 Yes 20mg Take 20 mg U nivers 20 mg 4-10 by mouth ity of capsule 14:40: daily. [place] [address] Medical Branch atorvastati 2017-0 Yes 10mg Take 10 mg Univers n 10 mg 4-10 by mouth ity of tablet 14:40: at [place] [address] bedtime. Medical Branch omeprazole 2017-0 Yes 20mg Take 20 mg U nivers 20 mg 4-10 by mouth ity of capsule 14:40: daily. [place] [address] Medical Branch atorvastati 2017-0 Yes 10mg Take 10 mg Univers n 10 mg 4-10 by mouth ity of tablet 14:40: at [place] [address] bedtime. Medical Branch omeprazole 2018-0 Yes 20mg Take 20 mg U nivers 20 mg 4-10 by mouth ity of capsule 14:40: daily. [place] [address] Medical Branch levothyroxi 0 Yes TAKE 1 Univ ers ne 125 mcg 4-10 TABLET BY ity of tablet 00:00: MOUTH [place] 00 EVERY Medical MORNING Branch levothyroxi 2017-0 Yes TAKE 1 Univ ers ne 125 mcg 4-10 TABLET BY ity of tablet 00:00: MOUTH [place] EVERY Medical MORNING Branch levothyroxi 2018-0 Yes TAKE 1 Univ ers ne 125 mcg 4-10 TABLET BY ity of tablet 00:00: MOUTH [place] EVERY Medical MORNING Branch levothyroxi 2017-0 Yes TAKE 1 Univ ers ne 125 mcg 4-10 TABLET BY ity of tablet 00:00: MOUTH [place] EVERY Medical MORNING Branch levothyroxi 2018-0 Yes [...] TABLET BY ity of tablet 00:00: MOUTH [place] 00 EVERY Medical MORNING Branch clopidogrel 2018-0 Yes TAKE 1 Univ ers 75 mg 2-06 TABLET BY ity of tablet 00:00: MOUTH [place] 00 EVERY Medical MORNING Branch clopidogrel 2018-0 Yes TAKE 1 Univ ers 75 mg 2-06 TABLET BY ity of tablet 00:00: MOUTH [place] 00 EVERY Medical MORNING Branch clopidogrel 2018-0 Yes TAKE 1 Univ ers 75 mg 2-06 TABLET BY ity of tablet 00:00: MOUTH [place] 00 EVERY Medical MORNING Branch clopidogrel 2018-0 Yes TAKE 1 Univ ers 75 mg 2-06 TABLET BY ity of tablet 00:00: MOUTH [place] 00 EVERY Medical MORNING Branch clopidogrel 2018-0 Yes TAKE 1 Univ ers 75 mg 2-06 TABLET BY ity of tablet 00:00: MOUTH [place] 00 EVERY Medical MORNING Branch clopidogrel 2018-0 Yes TAKE 1 Univ ers 75 mg 2-06 TABLET BY ity of tablet 00:00: MOUTH [place] 00 EVERY Medical MORNING Branch clopidogrel 2018-0 Yes TAKE 1 Univ ers 75 mg 2-06 TABLET BY ity of tablet 00:00: MOUTH [place] 00 EVERY Medical MORNING Branch clopidogrel 2018-0 Yes TAKE 1 Univ ers 75 mg 2-06 TABLET BY ity of tablet 00:00: [facility] 00 EVERY Medical MORNING Branch clopidogrel 2018-0 Yes TAKE 1 Univ ers 75 mg 2-06 TABLET BY ity of tablet 00:00: MOUTH [place] 00 EVERY Medical MORNING Branch clopidogrel 2018-0 Yes TAKE 1 Univ ers 75 mg 2-06 TABLET BY ity of tablet 00:00: MOUTH [place] 00 EVERY Medical MORNING Branch clopidogrel 2018-0 Yes TAKE 1 Univ ers 75 mg 2-06 TABLET BY ity of tablet 00:00: MOUTH [place] 00 EVERY Medical MORNING Branch clopidogrel 2018-0 Yes TAKE 1 Univ ers 75 mg 2-06 TABLET BY ity of tablet 00:00: MOUTH [place] 00 EVERY Medical MORNING Branch clopidogrel 2018-0 Yes TAKE 1 Univ ers 75 mg 2-06 TABLET BY ity of tablet 00:00: MOUTH [place] 00 EVERY Medical MORNING Branch clopidogrel 2018-0 [...] 20:38:00 149 mm[Hg] Univer sity of pressure [place] [facility] [place] Diastolic blood 2023-02-26 20:38:00 75 mm[Hg] Unive rsity of [facility] Heart rate 2023-02-26 20:38:00 81 /min Universi ty of [facility] Body temperature 2023-02-26 20:38:00 36.72 Brittany [facility] 2023-02-26 20:38:00 18 /min [facility] Body height 2023-02-26 20:38:00 170.2 cm Universi ty of [facility] Body weight 2023-02-26 20:38:00 57.607 kg Universi ty of [facility] BMI 2023-02-26 20:38:00 19.89 kg/m2 Universi ty [facility] Oxygen saturation in 2023-02-26 20:38:00 100 /min [facility] Arterial blood by [facility] [place] [facility] Pulse oximetry Branch Systolic blood 2022-08-24 15:43:00 135 mm[Hg] Univer sity of [facility] Diastolic blood 2022-08-24 15:43:00 83 mm[Hg] Unive rsity of [facility] Heart rate 2022-08-24 15:43:00 94 /min Universi ty of [facility] Body temperature 2022-08-24 15:43:00 36.83 Brittany Univ ersity of [facility] Respiratory rate 2022-08-24 15:43:00 18 /min Univ ersity of [facility] Body height 2022-08-24 15:43:00 170.2 cm Universi ty of [facility] Body weight 2022-08-24 15:43:00 58.968 kg Universi ty of [facility] BMI 2022-08-24 15:43:00 20.36 kg/m2 Universi ty of [place] [facility] Oxygen saturation in 2022-08-24 15:43:00 99 /min University of Arterial blood by [facility] hermelindo Pulse oximetry Branch Systolic blood 2022-01-08 02:02:00 147 mm[Hg] Univer sity of pressure [place] [facility] Diastolic blood 2022-01-08 02:02:00 78 mm[Hg] Unive rsity of pressure [place] [facility] Heart rate 2022-01-08 02:02:00 78 /min Universi ty of [place] [facility] Respiratory rate 2022-01-08 02:02:00 18 /min Univ ersity of [place] [facility] Oxygen saturation in 2022-01-08 02:02:00 100 /min University of Arterial blood by [facility] [place] [facility] Pulse oximetry Branch Body temperature 2022-01-07 23:24:00 37.17 Brittany Univ ersity of [place] [facility] Body weight 2022-01-07 23:24:00 58.968 kg Universi ty of [place] [facility] BMI 2022-01-07 23:24:00 20.36 kg/m2 Universi ty of [place] [facility] Systolic blood 2022-01-06 20:29:00 140 mm[Hg] Univer sity of pressure [place] [facility] Diastolic blood 2022-01-06 20:29:00 106 mm[Hg] Unive rsity of pressure [place] [facility] Heart rate 2022-01-06 20:29:00 102 /min Universi ty of [place] [facility] Body temperature 2022-01-06 20:29:00 37.5 Brittany Univ ersity of [place] [facility] Respiratory rate 2022-01-06 20:29:00 16 /min Univ ersity of [place] [facility] Body height 2022-01-06 20:29:00 170.2 cm Universi ty of [place] [facility] Body weight 2022-01-06 20:29:00 58.968 kg Universi ty of [place] [facility] BMI 2022-01-06 20:29:00 20.36 kg/m2 Universi ty of [place] [facility] Oxygen saturation in 2022-01-06 20:29:00 99 /min University of Arterial blood by [facility] Pulse oximetry Branch Systolic blood 2021-09-02 01:52:00 132 mm[Hg] Univer sity of pressure [facility] Diastolic blood 2021-09-02 01:52:00 75 mm[Hg] Unive rsity of pressure [facility] Heart rate 2021-09-02 01:52:00 67 /min [facility] Respiratory rate 2021-09-02 01:52:00 16 /min Univ [facility] Oxygen saturation in 2021-09-02 01:52:00 99 /min University of Arterial blood by [facility] Pulse oximetry Branch Body temperature 2021-09-01 23:57:00 36.17 Brittany [facility] Body height 2021-09-01 23:57:00 170.2 cm [facility] Body weight 2021-09-01 23:57:00 58.968 kg [facility] BMI 2021-09-01 23:57:00 20.36 kg/m2 [facility] Systolic blood 2021-08-07 15:57:00 165 mm[Hg] Univer sity of [facility] Diastolic blood 2021-08-07 15:57:00 71 mm[Hg] Unive rsity of pressure [facility] Heart rate 2021-08-07 15:57:00 97 /min [facility] Body temperature 2021-08-07 15:57:00 37.44 Rbittany Univ [facility] Respiratory rate 2021-08-07 15:57:00 18 /min [facility] Body height 2021-08-07 15:57:00 170.2 cm [facility] Body weight 2021-08-07 15:57:00 56.7 kg [facility] BMI 2021-08-07 15:57:00 19.58 kg/m2 [facility] Oxygen saturation in 2021-08-07 15:57:00 98 /min University of Arterial blood by [facility] Pulse oximetry Branch Systolic blood 2021-06-30 01:29:00 132 mm[Hg] Univer sity of [facility] Diastolic blood 2021-06-30 01:29:00 75 mm[Hg] Unive rsity of pressure [facility] Heart rate 2021-06-30 01:29:00 75 [...] 21:45:00 137 mm[Hg] Univer [facility]ity of [facility] Diastolic blood 2021-05-20 21:45:00 75 mm[Hg] Unive rsity of [facility] Heart rate 2021-05-20 21:45:00 75 [...] 2020-09-14 02:10:00 36.5 Brittany [facility] Body height 2020-09-14 02:09:00 170.2 cm [facility] Body weight 2020-09-14 02:09:00 61.236 kg [facility] BMI 2020-09-14 02:09:00 21.14 kg/m2 [facility] Systolic blood 2020-09-14 03:30:00 147 mm[Hg] Univer [facility] Diastolic blood 2020-09-14 03:30:00 89 mm[Hg] Unive rsity of [facility] Heart rate 2020-09-14 03:30:00 73 /min [facility] Respiratory rate 2020-09-14 03:30:00 19 /min [facility] Oxygen saturation in 2020-09-14 03:30:00 97 /min [facility] [place] by [place] [facility] Pulse oximetry Branch Body temperature 2020-09-14 02:10:00 36.5 Brittany [facility] Body height 2020-09-14 02:09:00 170.2 cm [facility] Body weight 2020-09-14 02:09:00 61.236 kg [facility] BMI 2020-09-14 02:09:00 21.14 kg/m2 [facility] Heart rate 2019-07-28 01:36:00 70 /min [facility] Respiratory rate 2019-07-28 01:36:00 18 /min [facility] Oxygen saturation in 2019-07-28 01:24:00 98 /min [facility] [place] blood by [place] [facility] Pulse oximetry Branch Systolic blood 2019-07-28 01:00:00 143 mm[Hg] Univer [facility]ity of [facility] Diastolic blood 2019-07-28 01:00:00 74 mm[Hg] Unive rsity of [facility] Body temperature 2019-07-28 00:05:00 36.56 Brittany [facility] Body height 2019-07-28 00:05:00 170.2 cm [facility] Body weight 2019-07-28 00:05:00 68.04 kg [facility] BMI 2019-07-28 00:05:00 23.49 kg/m2 [facility] Heart rate 2019-07-28 01:36:00 70 /min [facility] Respiratory rate 2019-07-28 01:36:00 18 /min [facility] Oxygen saturation in 2019-07-28 01:24:00 98 /min [facility] Ar[place]ial blood by [place] [facility] Pulse oximetry Branch Systolic blood 2019-07-28 01:00:00 143 mm[Hg] Univer [facility]ity of [facility] Diastolic blood 2019-07-28 01:00:00 74 mm[Hg] Unive rsity of [facility] Body temperature 2019-07-28 00:05:00 36.56 Brittany [facility] Body height 2019-07-28 00:05:00 170.2 cm [facility] [place] [facility] Body weight 2019-07-28 00:05:00 68.04 kg [facility] BMI 2019-07-28 00:05:00 23.49 kg/m2 [facility] Systolic blood 2019-03-11 21:00:00 141 mm[Hg] Univer [facility] Diastolic blood 2019-03-11 21:00:00 66 mm[Hg] Unive rsity of [facility] Heart rate 2019-03-11 21:00:00 97 /min [facility] Respiratory rate 2019-03-11 21:00:00 18 /min [facility] Oxygen saturation in 2019-03-11 21:00:00 97 /min University of Arterial blood by [facility] Pulse oximetry Branch Body temperature 2019-03-11 19:13:00 36.06 Brittany [facility] Body weight 2019-03-11 19:12:00 68.04 kg [facility] BMI 2019-03-11 19:12:00 23.49 kg/m2 [facility] Systolic blood 2019-03-11 21:00:00 141 mm[Hg] Univer sity of [facility] Diastolic blood 2019-03-11 21:00:00 66 mm[Hg] Unive rsity of [facility] Heart rate 2019-03-11 21:00:00 97 /min [facility] Respiratory rate 2019-03-11 21:00:00 18 /min [facility] Oxygen saturation in 2019-03-11 21:00:00 97 /min [facility] Arterial blood by [facility] Pulse oximetry [place] Body temperature 2019-03-11 19:13:00 36.06 Brittany [facility] Body weight 2019-03-11 19:12:00 68.04 kg [facility] BMI 2019-03-11 19:12:00 23.49 kg/m2 [facility] Procedures Procedure Date / Time Performing Clinician Source Performed COMP. METABOLIC PANEL 2023-02-26 21:14:00 Neida Duggan [facility] ([id number]) [facility] CBC WITH DIFF 2023-02-26 21:14:00 Neida Duggan [facility] o f [facility] CONSENT/REFUSAL FOR 2023-02-26 20:33:07 Doctor Unassigned, No Un [facility] DIAGNOSIS AND TREATMENT Name [facility] POCT SARS-COV-2 ANTIGEN 2022-08-24 15:52:00 Susan Lee [facility] (BINAX NOW) [facility] POCT MOLECULAR FLU 2022-08-24 15:51:00 Unknown, Attending [facility] ASSIGNMENT OF BENEFITS 2022-08-24 15:38:07 Doctor Unassigned, No [facility] Name [facility] XR CHEST 1 VW 2022-01-08 00:24:42 Alex Oconnell [facility] RAPID STREP SCREEN FOR 2022-01-06 20:47:00 [facility] GROUP A Medical Branch COVID-19 (ID NOW RAPID 2022-01-06 20:47:00 Sherrill [facility] TESTING) Medical Branch CONSENT/REFUSAL FOR 2022-01-06 20:26:18 Doctor Unassigned, No Un [facility] DIAGNOSIS AND TREATMENT Name [facility] RAPID INFLUENZA A/B 2021-09-02 00:47:00 Cameron Dalton [facility] COVID-19 (ID NOW RAPID 2021-09-02 00:47:00 Cameron Dalton [facility] TESTING) Medical Branch XR CHEST 2 VW 2021-09-02 00:27:31 [facility] 2021-09-01 23:46:25 Doctor Unassigned, No [facility] Name Medical Branch XR CHEST 2 VW 2021-08-07 16:43:01 Darius Ledesma [facility] CONSENT/REFUSAL FOR 2021-08-07 15:37:28 Doctor Unassigned, No [facility] Name [facility] CT ABDOMEN PELVIS W 2021-06-29 23:11:24 Jose Alejandro Castano [facility] CONTRAST Medical Branch LIPASE 2021-06-29 [facility]:18[facility] 2021-06-29 22:18:00 Omaira [facility] COMP. METABOLIC PANEL 2021-06-29 22:18:00 Omaira [facility] ([id number]) Medical Branch CBC WITH DIFF 2021-06-29 22:18:00 Omaira [facility] URINALYSIS 2021-06-29 22:18:00 [facility] CONSENT/REFUSAL FOR 2021-06-29 21:50:47 Doctor Unassigned, No [facility] Name [facility] POCT GLUCOSE (AUTOMATED) 2021-05-20 17:30:00 Marcelina Che [facility] HB ECG ROUTINE & RHYTHM 2021-05-20 15:36:46 Sami Caceres [facility] STRIP [facility] Branch TRANSTHORACIC ECHO (TTE) 2021-05-20 15:19:52 [facility] COMPLETE [facility] TROPONIN I 2021-05-20 11:04:00 aYne [facility] BASIC METABOLIC PANEL 2021-05-20 11:04[facility] ([facility], K, CL, CO2, Medical Branch GLUCOSE, BUN, CREATININE, CA) CBC WITH DIFF 2021-05-20 11:04:00 Marcelina Che [facility] TROPONIN I 2021-05-20 01:56:00 Neida Duggan [facility] XR CHEST 1 VW 2021-05-20 00:01:05 Neida Duggan [facility] LIPASE 2021-05-19 23:49:00 Neida Duggan [facility] MAGNESIUM 2021-05-19 23:49:00 Neida Duggan [facility] TROPONIN I 2021-05-19 23:49:00 Neida Duggan [facility] COMP. METABOLIC PANEL 2021-05-19 23:49:00 Neida Duggan [facility] ([id number]) [facility] CBC WITH DIFF 2021-05-19 23:49:00 Neida Duggan [facility] PROTHROMBIN TIME / INR 2021-05-19 23:49:00 [facility]gan [facility] ACTIVATED PARTIAL 2021-05-19 23:49:00 Neida Duggan [facility] THRMPLAS [facility] COVID-19 (ID NOW RAPID 2021-05-19 23:49:00 Neida Duggan [facility] TESTING) [facility] CONSENT/REFUSAL FOR 2021-05-19 23:01:42 Doctor Unassigned, No [facility] Name Medical Branch URINALYSIS 2020-09-14 02:42:00 Diana Berg [facility] XR CHEST 1 VW 2020-09-14 02:30:21 Diana Berg [facility] LIPASE 2020-09-14 02:21:00 Diana Berg [facility] TROPONIN I 2020-09-14 02:21:00 Diana Berg [facility] HEPATIC FUNCTION PANEL 2020-09-14 02:21:00 Diana [facility] ([id number]) (ALB,T.PRO,BILI Medical Branch T,BU/BC,ALT,AST,ALK PHOS) BASIC METABOLIC PANEL 2020-09-14 02:21:00 Diana [facility] [place] (NA, K, CL, CO2, Medical Branch GLUCOSE, BUN, CREATININE, CA) CBC WITH DIFF 2020-09-14 02:21:00 Diana Berg [facility] N-TERMINAL PRO-BNP 2020-09-14 02:21:00 Diana Berg [facility] COVID-19 (ID NOW RAPID 2020-09-14 02:21:00 Diana [facility] [place] [facility] NOTICE OF PRIVACY 2020-09-14 02:00:22 Doctor Unassigned, No [facility] CONSENT/REFUSAL FOR 2020-09-14 01:58:28 Doctor Unassigned, No [facility] [place] DIAGNOSIS AND TREATMENT Name [facility] HEPATIC FUNCTION PANEL 2019-07-28 00:55:00 [facility] ([id number] (ALB,T.PRO,BILI Medical Branch T,BU/BC,ALT,AST,ALK PHOS) BASIC METABOLIC PANEL 2019-07-28 00:55:00 Mariangel Ortega [facility] [place] (NA, K, CL, CO2, Medical Branch GLUCOSE, BUN, CREATININE, CA) CBC WITH DIFFERENTIAL 2019-07-28 00:55:00 Mariangel Ortega [facility] RAPID STREP SCREEN FOR 2019-07-28 00:55:00 Mariangel [facility] ADC,CLC OR LCC ONLY - 2019-07-28 00:55:00 Mariangel Ortega [facility] [place] INFLUENZA A & B DIRECT Medical [facility] ANTIGEN CBC WITH DIFFERENTIAL 2019-07-28 00:55:00 Mariangel Ortega [facility] XR CHEST 2 VW 2019-07-28 00:28:40 Mariangel Ortega [facility] CONSENT/REFUSAL FOR 2019-07-27 23:47:18 Doctor Unassigned, No [facility] [place] DIAGNOSIS AND TREATMENT Name Medical Branch LIPASE 2019-03-11 19:53:00 Sherrill Connor Drumright o f [facility] HEPATIC FUNCTION PANEL 2019-03-11 19:53:00 Sherrill Connor [facility] ([id number]) (ALB,T.PRO,BILI [facility] Branch T,BU/BC,ALT,AST,ALK PHOS) BASIC METABOLIC PANEL 2019-03-11 19:53:00 Sherrill Connor [facility] (NA, K, CL, CO2, Medical Branch GLUCOSE, BUN, CREATININE, CA) CBC WITH DIFFERENTIAL 2019-03-11 19:53:00 Sherrill Connor [facility] PROTHROMBIN TIME / INR 2019-03-11 19:53:00 Sherrill Connor [facility] ACTIVATED PARTIAL 2019-03-11 19:53:00 Sherrill Connor [facility] OF [facility]IVACY 2019-03-11 18:56:54 Doctor Unassigned, No [facility] PRACTICES Name [facility] Encounters Start End Encounter Admission Attending Care Care Encounter Source Date/Time Date/Time Type Type Clinicians Facility Department ID 2021-05-06 Emergency [facility] [id number] Univers 05:05:13 ity of [facility] 2023-02-26 2023-02-26 Emergency X OLGA LIDIA Neida [facility] ERT [id number] Univers 15:53:00 17:52:00 ity of [facility] 2023-02-26 2023-02-26 Emergency Olga LidiaNeida [facility] 1.2.840.114 [id number] Univers 15:53:00 17:52:00 Leonarda DENNISON [id number] i ty of [place] [id number] [place] [facility] [id number] [facility] 084 Branch 2022-08-24 2022-08-24 Urgent Susan Lee [facility] 1.2.840.11 [id number] Univers 09:40:00 10:00:00 Care Unknown, Attending HEALTH [id number] ity of [place] [id number] Amandeep as JOCELYN?BLEA [id number] Sc dical [address] MEDICAL OFFICE BUILDING 2022-08-24 2022-08-24 Outpatient R TAMIKO [facility] [id number] Univers 09:40:00 09:40:00 SUSAN ity of [facility] 2022-08-24 2022-08-24 Orders Doctor SUSHIL 1.2.840.114 [id number] Univers 00:00:00 00:00:00 Only Unassigned, KIRK [id number] ity of [place] [facility] [id number] Amandeep as [id number] [address] 2022-01-11 2022-01-11 Laboratory Only, Ang Db Test [facility] 1.2.8 40.114 [id number] Univers 13:15:00 13:30:00 Only Monik Charles [facility] [id number] ity of [place] 4.2.7.2.686 Amandeep as JOCELYN?BLEA [id number] [address] MEDICAL OFFICE BUILDING 2022-01-11 2022-01-11 Outpatient Torres CHARLES [facility] [id number] Univers 13:15:00 13:24:38 MONIK delaney [facility] 2022-01-07 2022-01-07 [facility] [id number] Univers 18:26:00 21:08:00 ALEX garcia [facility] 2022-01-07 2022-01-07 Emergency [facility] 1.2.130.227 [id number] Univers 18:26:00 21:08:00 Alex DENNISON [id number] ity of [place] 4.2.7.2.686 [facility] [id number] [address] 2022-01-06 2022-01-06 Emergency [facility] [id number] Univers 15:31:00 16:32:00 SHERRILL delaney [facility] 2022-01-06 2022-01-06 Emergency [facility] 1.2.991.497 [id number] Univers 15:31:00 16:32:00 Sherrill DENNISON [id number] i ty [facility] 4.2.7.2.686 [facility] [id number] [address] 2021-09-01 2021-09-01 Emergency X [facility] ERT [id number] Univers 17:59:00 19:56:00 CAMERON delaney [facility] 2021-09-01 2021-09-01 Emergency [facility] 1.2.840.114 [id number] Univers 17:59:00 19:56:00 Cameron DENNISON [id number] i ty [place] 4[place]2.7.2.686 [place] [id number] [place] 350194 Amity 2021-09-01 2021-09-01 Orders Doctor SUSHIL 1.2.840.114 [id number] Univers 00:00:00 00:00:00 Only Unassigned, KIRK [id number] ity of [place] [facility] 4.2.7.2.686 Amandeep as [id number] [facility] 009 [place] 2021-08-08 2021-08-08 Letter SUSHIL Daniels 1.2.840.114 [id number] Univers 00:00:00 00:00:00 (Out) Nirmala BRADLEY [id number] it y of HOSPITAL 4.2.7.2.686 Amandeep as [id number] [facility] 019 Am[place] 2021-08-07 2021-08-07 Emergency X [facility] ERT [id number] Univers 09:58:00 11:43:00 DARIUS delaney of [facility] 2021-08-07 2021-08-07 Emergency [facility] 1.2.153.194 [id number] Univers 09:58:00 11:43:00 Darius BRAGGDORINA 350.1.13.10 i ty of [place] 4.2.7.2.686 [place] [facility] [id number] [place] 350194 [place] 2021-08-07 2021-08-07 Orders Doctor SUSHIL 1.2.840.114 [id number] Univers 00:00:00 00:00:00 Only Unassigned, KIRK [id number] ity of [place] [facility] 4.2.7.2.686 Amandeep as [id number] [facility] 009 Am[place] 2021-06-29 2021-06-29 Emergency X OMAIRA [facility] ERT [id number] Univers 16:04:00 19:33:00 JOSE ALEJANDRO delaney [facility] 2021-06-29 2021-06-29 Emergency Omaira [facility] 1.2.840.114 [id number] Univers 16:04:00 19:33:00 Jose Alejandro DENNISON 350.1.13.10 i ty of [facility] 4.2.7.2.686 [facility] [id number] [address] 2021-05-19 2021-05-20 [facility] [id number] Univers 17:04:00 17:03:00 MARCELINA delaney [facility] 2021-05-19 2021-05-20 Emergency Neida Duggan Leonarda [facility] 1..840. 114 [id number] Univers 17:04:00 17:03:00 Marcelina Che JESI 350.1.13.10 ity [facility] 4.2.7.2.686 [facility] [id number] [address] 2020-09-16 2020-09-16 Outpatient R LUIS MANUEL [facility] [id number] Univers 10:20:00 10:20:00 NICOLE ity [facility] 2020-09-16 2020-09-16 Laboratory Lab, [facility] 1..840.114 [id number] 09:44:15 10:04:15 Only Fam Pob I Health 350.1.13.10 [place] 4.2.7.2.686 Professio [id number] [place] [address] [address] 2020-09-16 2020-09-16 Laboratory Lab, [facility] Fam Pob I [facility] 1.. 840.114 [id number] Univers 09:44:15 10:04:15 Only Nicole [facility] 350.1.13.10 ity of [place] 4.2.7.2.686 Amandeep as Professio [id number] Sc dical [address] Office [address] 2020-09-13 2020-09-13 Emergency [facility] 1.2.840.114 [id number] 20:05:00 22:24:00 Diana Dennison 350.1.13.10 [place] 4.2.7.2.686 [place] [id number] [facility] 2020-09-13 2020-09-13 Emergency Rohan, [facility] 1.2.840.114 [id number] [facility] 20:05:00 22:24:00 Diana Braggton 350.1.13.10 ity of [place] 4.2.7.2.686 [facility] [id number] [address] 2019-07-27 2019-07-27 Emergency [facility] 1.2.840.114 [id number] 18:07:12 20:13:00 Mariangel Ada Jesi 350.1.13.10 [place] 4.2.7.2.686 [place] [id number] [facility] 2019-07-27 2019-07-27 Emergency [facility] 1.2.840.114 [id number] [facility] 18:07:12 20:13:00 Mariangel Dennison 350.1.13.10 ity of [place] 4.2.7.2.686 [facility] [id number] [address] 2019-07-27 2019-07-27 Orders Doctor LING 1.2.840.114 [id number] 00:00:00 00:00:00 Only Unassigned, KIRK 350.1.13.10 [place] [facility] 4.2.7.2.686 [id number] [facility] 2019-07-27 2019-07-27 Orders Doctor LING 1.2.840.114 [id number] Univers 00:00:00 00:00:00 Only Unassigned, KIRK 350.1.13.10 ity of [place] [facility] 4.2.7.2.686 Amandeep [id number] [address] 2019-03-11 2019-03-11 Emergency [facility] 1.2.533.564 [id number] 14:05:54 16:45:00 Sherrill Dennison 350.1.13.10 [place] 4.2.7.2.686 [place] [id number] [facility] 2019-03-11 2019-03-11 Emergency [facility] 1.2.675.056 [id number] Univers 14:05:54 16:45:00 Sherrill Dennison 350.1.13.10 i [facility] 4.2.7.2.686 [facility] [id number] [facility] 084 Branch Results Test Description Test Time Test Comments Results Result Comments Source COMP. METABOLIC PANEL (33495) 2023-02-26 22:05:45 Test Item Value Reference Range Interpretation Comme nts NA (test code = 1956190758) 136 mmol/L 135-145 K (test code = 9884553497) 3.7 mmol/L 3.5-5.0 CL (test code = 7964667249) 100 mmol/L 98-108 CO2 TOTAL (test code = 9229929712) 26 mmol/L 23-31 AGAP (test code = 2468734892) 10 2-16 BUN (test code = 1563709873) 11 mg/dL 7-23 GLUCOSE (test code = 1231451425) 123 mg/dL 70-110 H CREATININE (test code = 0.61 mg/dL 0.50-1.04 9162371412) TOTAL BILI (test code = 0.2 mg/dL 0.1-1.0 2195969340) CALCIUM (test code = 3197116730) 9.6 mg/dL 8.6-10.6 T PROTEIN (test code = 5607461300) 7.6 g/dL 6.3-8.2 ALBUMIN (test code = 7361959277) 4.8 g/dL 3.5-5.0 ALK PHOS (test code = 2015158174) 83 U/L 34-122 ALTv (test code = 1742-6) 20 U/L 5-35 AST(SGOT) (test code = 1279485450) 28 U/L 13-40 eGFR (test code = 9114758853) 99.1 mL/min/1.73m2 MADISYN (test code = MADISYN) [...] tests). Lab Interpretation (test code = Abnormal 20997-2) [facility] WITH [id number] 21:53:23 Test Item Value Reference Range Interpretation Comments WBC (test code = 6.64 See_Comment [Automated 3290-2) message] The sy stem which generated this result transmitted reference range : 4.30 - 11.10 10*3/?L. The reference range was not used to interpret this result as normal/abnormal . RBC (test code = 3.46 See_Comment L [Automated 449-8) message] The sy stem which generated this [...] RDW-SD (test code = 42.1 fL 39.0-49.9 85451-3) RDW-CV (test code = 12.9 % 12.0-15.5 788-0) PLT (test code = 274 See_Comment [Automated 777-3) message] The sy stem which generated this result transmitted reference range : 166 - 358 10*3/ ?L. The reference r aiden was not used to interpret this result as normal/abnormal . MPV (test code = 10.4 fL 9.5-12.9 94767-9) NRBC/100 WBC (test 0.0 See_Comment [Automat ed code = 0555562045) message] The system which generated this result transmitted reference range : 0.0 - 10.0 /100 WBCs. The refer ence range was not u sed to interpret th is result as normal/abnormal . NRBC x10^3 (test code See_Comment [Auto mated = 1189259229) message] The s ystem which generated this result transmitted reference range : 10*3/?L. The reference range was not used to interpret this result as normal/abnormal . GRAN MAT (NEUT) % 52.0 % (test code = 770-8) IMM GRAN % (test code 0.50 % = 2202721858) LYMPH % (test code = 34.2 % 736-9) MONO % (test code = 6.8 % 5905-5) EOS % (test code = 6.2 % 713-8) BASO % (test code = 0.3 % 706-2) GRAN MAT x10^3(ANC) 3.46 10*3/uL 1.88-7.09 (test code = 4546418008) IMM GRAN x10^3 (test 0.03 10*3/uL 0.00-0.06 code = 3452434121) LYMPH x10^3 (test code 2.27 10*3/uL 1.32-3.29 = 731-0) MONO x10^3 (test code 0.45 10*3/uL 0.33-0.92 = 742-7) EOS x10^3 (test code = 0.41 10*3/uL 0.03-0.39 H 711-2) BASO x10^3 (test code 0.01-0.07 = 704-7) Lab Interpretation Abnormal (test code = 65687-2) [facility] MOLECULAR [id number] 16:02:31 Test Item Value Reference Range Interpretation Comments POCT Molecular FluA (test code = Negative Negative 98941-0) POCT Molecular FluB (test code = Negative Negative 26128-3) Lab Interpretation (test code = Normal 61263-1) [facility] SARS-COV-2 ANTIGEN (BINAX NOW)2022-08-24 15:52:00 Test Item Value Reference Range Interpretation Comments POCT SARS-COV-2 ANTIGEN (test Not Detected Not Detected code = 21271-6) On board controls acceptable Yes with C Line (test code = 3574) Lab Interpretation (test code = Normal 33497-7) [facility] METABOLIC PANEL ([id number])2021-06-29 23:10:56 Test Item Value Reference Range Interpretation Comments NA (test code = 137 mmol/L 135-145 6840822995) K (test code = 3.9 mmol/L 3.5-5.0 1852368606) CL (test code = 102 mmol/L 98-108 6164088843) CO2 TOTAL (test code = 27 mmol/L 23-31 6826159923) AGAP (test code = 2-16 5925708554) BUN (test code = 10 mg/dL 7-23 2717646014) GLUCOSE (test code = 137 mg/dL 70-110 H 5399648413) CREATININE (test code = 0.69 mg/dL 0.50-1.04 6643770012) TOTAL BILI (test code = 0.5 mg/dL 0.1-1.6 2002366432) CALCIUM (test code = 9.2 mg/dL 8.6-10.6 6534561670) T PROTEIN (test code = 7.7 g/dL 6.3-8.2 2324411090) ALBUMIN (test code = 4.9 g/dL 3.5-5.0 7217491729) ALK PHOS (test code = 73 U/L 34-122 9339151197) ALTv (test code = 15 U/L 5-35 1742-6) AST(SGOT) (test code = 21 U/L 13-40 2716029456) eGFR (test code = mL/min/1.73m2 9769075979) MADISYN (test code = MADISYN) Association of [...] tests). Lab Interpretation Abnormal (test code = 59836-8) [id number] 22[facility]59:27 Test Item Value Reference Interpretation Comments Range TROPONIN I (test 0.001 ng/mL See_Comment [Automated code = 2780065861) message] The system which generated this result [...] biotin. Lab Interpretation Normal (test code = 74599-4) [facility] 22:49:29 Test Item Value Reference Range Interpretation Comments LIPASE (test code = 9821023100) 57 U/L 0-220 Lab Interpretation (test code = Normal 27735-2) [facility] WITH [id number] 22:29:28 Test Item Value Reference Range Interpretation Comments WBC (test code = See_Comment [Automated 4690-2) message] The sy stem which generated this result transmitted reference range : 4.30 - 11.10 10*3/?L. The reference range was not used to interpret this result as normal/abnormal . RBC (test code = See_Comment L [Automated 799-8) message] The sy stem which generated this [...] RDW-SD (test code = 43.4 fL 39.0-49.9 22994-4) RDW-CV (test code = 12.7 % 12.0-15.5 788-0) PLT (test code = See_Comment [Automated 977-3) message] The sy stem which generated this result transmitted reference range : 166 - 358 10*3/ ?L. The reference r aiden was not used to interpret this result as normal/abnormal . MPV (test code = 10.7 fL 9.5-12.9 82107-7) NRBC/100 WBC (test See_Comment [Automat ed code = 9554665290) message] The system which generated this result transmitted reference range : 0.0 - 10.0 /100 WBCs. The refer ence range was not u sed to interpret th is result as normal/abnormal . NRBC x10^3 (test code <0.01 See_Comment [Auto mated = 5605634277) message] The s ystem which generated this result transmitted reference range : 10*3/?L. The reference range was not used to interpret this result as normal/abnormal . GRAN MAT (NEUT) % 68.6 % (test code = 770-8) IMM GRAN % (test code 0.40 % = 9548647065) LYMPH % (test code = 22.9 % 736-9) MONO % (test code = 6.3 % 5905-5) EOS % (test code = 1.6 % 713-8) BASO % (test code = 0.2 % 706-2) GRAN MAT x10^3(ANC) 6.89 10*3/uL 1.88-7.09 (test code = 1102265247) IMM GRAN x10^3 (test 0.04 10*3/uL 0.00-0.06 code = 1793943133) LYMPH x10^3 (test code 2.30 10*3/uL 1.32-3.29 = 731-0) MONO x10^3 (test code 0.63 10*3/uL 0.33-0.92 = 742-7) EOS x10^3 (test code = 0.16 10*3/uL 0.03-0.39 711-2) BASO x10^3 (test code <0.03 0.01-0.07 = 704-7) Lab Interpretation Abnormal (test code = 58028-7) [facility]21-[facility]-20 17:33:00 Test Item Value Reference Range Interpretation Comments POCT GLU (test code = 1667257273) 80 mg/dL 70-110 Lab Interpretation (test code = Normal 76252-3) [facility] [id number] 12:36:17 Test Item Value Reference Interpretation Comments Range TROPONIN I (test 0.002 ng/mL See_Comment [Automated code = 2293635790) message] The system which generated this result [...] biotin. Lab Interpretation Normal (test code = 28208-4) [facility] Metabolic Panel (NA, K, CL, CO2, GLUCOSE, BUN, CREATININE, CA)2021-05-20 12:31:20 Test Item Value Reference Range Interpretation Comments NA (test code = 138 mmol/L 135-145 5931564875) K (test code = 4.2 mmol/L 3.5-5.0 3464402078) CL (test code = 106 mmol/L 98-108 5269163001) CO2 TOTAL (test code = 25 mmol/L 23-31 5210490172) AGAP (test code = 2-16 6893001641) BUN (test code = 12 mg/dL 7-23 3317191937) GLUCOSE (test code = 146 mg/dL 70-110 H 1211331705) CREATININE (test code = 0.62 mg/dL 0.50-1.04 7769118857) CALCIUM (test code = 10.0 mg/dL 8.6-10.6 5716543349) eGFR (test code = mL/min/1.73m2 7201452984) MADISYN (test code = MADISYN) Association of [...] tests). Lab Interpretation Abnormal (test code = 66793-7) [facility] with [id number] 11:49:32 Test Item Value Reference Range Interpretation Comments WBC (test code = See_Comment [Automated 9105-2) message] The sy stem which generated this result transmitted reference range : 4.30 - 11.10 10*3/?L. The reference range was not used to interpret this result as normal/abnormal . RBC (test code = See_Comment L [Automated 507-8) message] The sy stem which generated this [...] RDW-SD (test code = 40.3 fL 39.0-49.9 91400-9) RDW-CV (test code = 11.9 % 12.0-15.5 L 788-0) PLT (test code = See_Comment [Automated 777-3) message] The sy stem which generated this result transmitted reference range : 166 - 358 10*3/ ?L. The reference r aiden was not used to interpret this result as normal/abnormal . MPV (test code = 11.3 fL 9.5-12.9 60807-8) NRBC/100 WBC (test See_Comment [Automat ed code = 5259932411) message] The system which generated this result transmitted reference range : 0.0 - 10.0 /100 WBCs. The refer ence range was not u sed to interpret th is result as normal/abnormal . NRBC x10^3 (test code <0.01 See_Comment [Auto mated = 1428001686) message] The s ystem which generated this result transmitted reference range : 10*3/?L. The reference range was not used to interpret this result as normal/abnormal . GRAN MAT (NEUT) % 59.9 % (test code = 770-8) IMM GRAN % (test code 0.50 % = 6150923429) LYMPH % (test code = 30.0 % 736-9) MONO % (test code = 6.4 % 5905-5) EOS % (test code = 2.9 % 713-8) BASO % (test code = 0.3 % 706-2) GRAN MAT x10^3(ANC) 3.72 10*3/uL 1.88-7.09 (test code = 4948330013) IMM GRAN x10^3 (test 0.03 10*3/uL 0.00-0.06 code = 9750841726) LYMPH x10^3 (test code 1.86 10*3/uL 1.32-3.29 = 731-0) MONO x10^3 (test code 0.40 10*3/uL 0.33-0.92 = 742-7) EOS x10^3 (test code = 0.18 10*3/uL 0.03-0.39 711-2) BASO x10^3 (test code <0.03 0.01-0.07 = 704-7) Lab Interpretation Abnormal (test code = 08698-0) [facility] [id number] 02:24:28 Test Item Value Reference Interpretation Comments Range TROPONIN I (test 0.003 ng/mL See_Comment [Automated code = 1389118132) message] The system which generated this result [...] biotin. Lab Interpretation Normal (test code = 26766-8) [facility] Test Item Value Reference Range Interpretation Comments MAGNESIUM (test code = 1526618112) 1.9 mg/dL 1.7-2.4 Lab Interpretation (test code = Normal 66588-7) [facility] [id number] 00:20:03 Test Item Value Reference Interpretation Comments Range TROPONIN I (test 0.002 ng/mL See_Comment [Automated code = 8893128063) message] The system which generated this result [...] biotin. Lab Interpretation Normal (test code = 54225-6) [facility]. METABOLIC PANEL ([id number])2021-05-20 00:09:00 Test Item Value Reference Range Interpretation Comments NA (test code = 139 mmol/L 135-145 2523952893) K (test code = 3.9 mmol/L 3.5-5.0 5653577992) CL (test code = 101 mmol/L 98-108 2947256892) CO2 TOTAL (test code = 28 mmol/L 23-31 9243336963) AGAP (test code = 2-16 5648886855) BUN (test code = 13 mg/dL 7-23 5176612814) GLUCOSE (test code = 143 mg/dL 70-110 H 5333580955) CREATININE (test code = 0.68 mg/dL 0.50-1.04 6072281152) TOTAL BILI (test code = 0.4 mg/dL 0.1-1.7 6798882292) CALCIUM (test code = 10.4 mg/dL 8.6-10.6 6880652078) T PROTEIN (test code = 8.0 g/dL 6.3-8.2 7628960768) ALBUMIN (test code = 5.0 g/dL 3.5-5.0 4254212937) ALK PHOS (test code = 93 U/L 34-122 9165887680) ALTv (test code = 21 U/L 5-35 1742-6) AST(SGOT) (test code = 31 U/L 13-40 6028746840) eGFR (test code = mL/min/1.73m2 3890701959) MADISYN (test code = MADISYN) Association of [...] tests). Lab Interpretation Abnormal (test code = 41634-8) [facility]:08[facility]20 Test Item Value Reference Range Interpretation Comments LIPASE (test code = 2347949207) 66 U/L 0-220 Lab Interpretation (test code = Normal 15129-5) [facility] 00:06:19 Test Item Value Reference Range Interpretation Comments APTT Patient (test See_Comment [Automat ed code = 3173-2) message] The system which generated this result transmitted reference range : 23 - 38 Seconds . The reference range was not used to interpr et this result as normal/abnormal . MADISYN (test code = MADISYN) The [facility] patient population mean normal value for aPTT is 30 seconds. Lab Interpretation Normal (test code = 68017-2) [facility] CenterPROTHROM[facility] / [id number] 00:04:19 Test Item Value Reference Range Interpretation [...] tions. Lab Interpretation (test Normal code = 15497-2) [facility] WITH [id number] 23:55:39 Test Item Value Reference Range Interpretation Comments WBC (test code = See_Comment [Automated 5690-2) message] The sy stem which generated this [...] RDW-SD (test code = 40.4 fL 39.0-49.9 15538-8) RDW-CV (test code = 11.9 % 12.0-15.5 L 788-0) PLT (test code = See_Comment [Automated 777-3) message] The sy stem which generated this result transmitted reference range : 166 - 358 10*3/ ?L. The reference r aiden was not used to interpret this result as normal/abnormal . MPV (test code = 11.0 fL 9.5-12.9 90231-7) NRBC/100 WBC (test See_Comment [Automat ed code = 1077828857) message] The system which generated this result transmitted reference range : 0.0 - 10.0 /100 WBCs. The refer ence range was not u sed to interpret th is result as normal/abnormal . NRBC x10^3 (test code <0.01 See_Comment [Auto mated = 5068021667) message] The s ystem which generated this result transmitted reference range : 10*3/?L. The reference range was not used to interpret this result as normal/abnormal . GRAN MAT (NEUT) % 53.4 % (test code = 770-8) IMM GRAN % (test code 0.60 % = 1259419424) LYMPH % (test code = 36.2 % 736-9) MONO % (test code = 6.4 % 5905-5) EOS % (test code = 3.3 % 713-8) BASO % (test code = 0.1 % 706-2) GRAN MAT x10^3(ANC) 3.58 10*3/uL 1.88-7.09 (test code = 3102570500) IMM GRAN x10^3 (test 0.04 10*3/uL 0.00-0.06 code = 0058872893) LYMPH x10^3 (test code 2.43 10*3/uL 1.32-3.29 = 731-0) MONO x10^3 (test code 0.43 10*3/uL 0.33-0.92 = 742-7) EOS x10^3 (test code = 0.22 10*3/uL 0.03-0.39 711-2) BASO x10^3 (test code <0.03 0.01-0.07 = 704-7) Lab Interpretation Abnormal (test code = 17550-1) [facility]inalysis[facility] 03:27:11 Test Item Value Reference Range Interpretation Comments APPEARANCE (test code = Clear Clear 2821962513) COLOR (test code = Straw Yellow A 2659527275) PH (test code = 4.8-8.0 9734238966) SP GRAVITY (test code = 1.003-1.030 8675175025) GLU U QUAL (test code = 500 mg/dL Normal A 6152284940) BLOOD (test code = Negative Negative 2024564031) KETONES (test code = Negative Negative 2400858286) PROTEIN (test code = Negative Negative 2887-8) UROBILIN (test code = Normal Normal 7842517829) BILIRUBIN (test code = Negative Negative 0768025160) NITRITE (test code = Negative Negative 6486980790) LEUK KEVEN (test code = 25/uL Negative A 9662670072) RBC/HPF (test code = See_Comment [Autom ated message] 2023476772) The system [employer] generated this result transmit zoila reference range : 0 - 3 HPF. The refe rence range was not u sed to interpret th is result as normal/abnormal . WBC/HPF (test code = See_Comment [Autom ated message] 5245438220) The system [employer] generated this result transmit zoila reference range : 0 - 5 HPF. The refe rence range was not u sed to interpret th is result as normal/abnormal . BACTERIA (test code = Negative Negative 7815750507) MUCOUS (test code = Slight Negative LPF A 7482634626) SQ EPITH (test code = HPF 9280145646) Lab Interpretation (test Abnormal code = 79393-0) [facility] [id number] 03:00:28 Test Item Value Reference Range Interpretation Comments TROPONIN I (test <0.012 See_Comment [Automated code = 9432417082) message] The system which generated this result [...] ? Lab Interpretation Normal (test code = 57329-2) [facility] CenterN-[facility]MINAL [id number] 02:57:10 Test Item Value Reference Range Interpretation Comments NT-proBNP (test code 25 pg/mL See_Comment [Autom ated = 7960349325) message] The system which generated this result transmitted reference range : <=125. The reference range was not used to interpret this result as normal/abnormal . MADISYN (test code = MADISYN) Biotin has been reported to cause a negative bias, interpret results relative to patient's use of biotin. Lab Interpretation Normal (test code = 38693-0) [facility] (NA, K, CL, CO2, GLUCOSE, BUN, CREATININE, CA)2020-09-14 02:48:49 Test Item Value Reference Range Interpretation Comments NA (test code = 135 mmol/L 135-145 5785300600) K (test code = 3.6 mmol/L 3.5-5.0 3582190571) CL (test code = 101 mmol/L 98-108 8699965448) CO2 TOTAL (test code = 23 mmol/L 23-31 5427904377) AGAP (test code = 2-16 6897567942) BUN (test code = 10 mg/dL 7-23 5664389737) GLUCOSE (test code = 296 mg/dL 70-110 H 7341851795) CREATININE (test code = 0.62 mg/dL 0.50-1.04 6912505038) CALCIUM (test code = 9.7 mg/dL 8.6-10.6 0015963200) eGFR Calculation mL/min/1.73m2 (Non-) (test code = 2146981674) eGFR Calculation mL/min/1.73m2 () (test code = 9661945610) MADISYN (test code = MADISYN) Association of [...] tests). Lab Interpretation Abnormal (test code = 92477-1) [facility] (ALB, T.PRO, BILI T, BU/BC, ALT, AST, ALK PHOS)2020-09-14 02:48:48 Test Item Value Reference Range Interpretation Comments TOTAL BILI (test code = 3099605706) 0.4 mg/dL 0.1-1.1 BILI UNCON (test code = 9393854441) 0.4 mg/dL 0.1-1.1 BILI CONJ (test code = 0439958746) 0.0 mg/dL 0.0-0.3 T PROTEIN (test code = 4406617375) 7.7 g/dL 6.3-8.2 ALBUMIN (test code = 3652499027) 5.0 g/dL 3.5-5.0 ALK PHOS (test code = 2283343083) 78 U/L 34-122 ALTv (test code = 1742-6) 19 U/L 5-35 AST(SGOT) (test code = 3159402337) 25 U/L 13-40 Lab Interpretation (test code = Normal 94593-4) [facility] Center[facility] [id number] 02:48:48 Test Item Value Reference Range Interpretation Comments LIPASE (test code = 8950724037) 38 U/L 0-220 Lab Interpretation (test code = Normal 09233-7) [facility] CenterCOVID-19 (ID NOW RAPID TESTING)2020-09-14 02:36:29 Test Item Value Reference Range Interpretation Comments SARS-CoV-2 Rapid ID NOW Positive Not Detected A (test code = 06362-3) MADISYN (test code = MADISYN) ID NOW COVID-19 Assay is an isothermal nucleic acid amplification test intended for the qualitative detection of nucleic acid from SARS-CoV-2 viral RNA in nasopharyngeal ([employer]NAGER) specimens. It is used under Emergency Use [...] indicated. Lab Interpretation Abnormal (test code = 24926-7) [facility] CenterCBC with [id number] 02:30:06 Test Item Value Reference Range Interpretation Comments WBC (test code = See_Comment [Automated message] 6690-2) The system [employer] generated this result transmitted ref erence range: 4.30 - 1 1.10 10*3/?L. The re ference range was not u sed to interpret this result as normal/abnor mal. RBC (test code = See_Comment [Automated message] 789-8) The system [employer] generated this result transmitted ref erence range: [...] RDW-SD (test code 41.8 fL 39.0-49.9 = 10112-9) RDW-CV (test code 12.8 % 12.0-15.5 = 788-0) PLT (test code = See_Comment [Automated message] 777-3) The system whic h generated this result transmitted ref erence range: 166 - 35 8 10*3/?L. The re ference range was not u sed to interpret this result as normal/abnor mal. MPV (test code = 11.2 fL 9.5-12.9 49610-7) NRBC/100 WBC (test See_Comment [Automat ed message] code = 7143685611) The syste m which generated this result transmitted ref erence range: 0.0 - 10 .0 /100 WBCs. The refer ence range was not u sed to interpret this result as normal/abnor mal. NRBC x10^3 (test <0.01 See_Comment [Automated message] code = 2550452690) The syste m which generated this result transmitted ref erence range: 10*3/?L. The reference range was not used to interpr et this result as normal/abnormal . GRAN MAT (NEUT) % 54.0 % (test code = 770-8) IMM GRAN % (test 0.70 % code = 6562686805) LYMPH % (test code 36.2 % = 736-9) MONO % (test code 6.0 % = 5905-5) EOS % (test code = 2.8 % 713-8) BASO % (test code 0.3 % = 706-2) GRAN MAT 3.13 10*3/uL 1.88-7.09 x10^3(ANC) (test code = 1785057301) IMM GRAN x10^3 0.04 10*3/uL 0.00-0.06 (test code = 7308807454) LYMPH x10^3 (test 2.10 10*3/uL 1.32-3.29 code = 731-0) MONO x10^3 (test 0.35 10*3/uL 0.33-0.92 code = 742-7) EOS x10^3 (test 0.16 10*3/uL 0.03-0.39 code = 711-2) BASO x10^3 (test <0.03 0.01-0.07 code = 704-7) [facility] WITH [id number] 01:35:00 Test Item Value Reference Range Interpretation Comments WBC (test code = See_Comment [Automated 3652-2) message] The sy stem which generated this result transmitted reference range : 4.30 - 11.10 10*3/?L. The reference range was not used to interpret this result as normal/abnormal . RBC (test code = See_Comment [Automated 459-8) message] The sy stem which generated this [...] RDW-SD (test code = 40.8 fL 39-49.9 03838-0) RDW-CV (test code = 12.5 % 12-15.5 788-0) PLT (test code = See_Comment [Automated 777-3) message] The sy stem which generated this result transmitted reference range : 166 - 358 10*3/ ?L. The reference r aiden was not used to interpret this result as normal/abnormal . MPV (test code = 11.0 fL 9.5-12.9 24253-1) IPF % (test code = 5.7 % 1.3-7.7 Platelet count 6162151425) measured by fluorescence method. NRBC/100 WBC (test See_Comment [Automat ed code = 4908412769) message] The system which generated this result transmitted reference range : 0.0 - 10.0 /100 WBCs. The refer ence range was not u sed to interpret th is result as normal/abnormal . NRBC x10^3 (test code <0.01 See_Comment [Auto mated = 6247161278) message] The s ystem which generated this result transmitted reference range : 10*3/?L. The reference range was not used to interpret this result as normal/abnormal . GRAN MAT (NEUT) % 60.2 % (test code = 770-8) IMM GRAN % (test code 1.60 % = 5095314097) LYMPH % (test code = 29.4 % 736-9) MONO % (test code = 6.2 % 5905-5) EOS % (test code = 2.3 % 713-8) BASO % (test code = 0.3 % 706-2) GRAN MAT x10^3(ANC) 5.31 10*3/uL 1.88-7.09 (test code = 5833565637) IMM GRAN x10^3 (test 0.14 10*3/uL 0-0.06 H code = 8787319105) LYMPH x10^3 (test code 2.59 10*3/uL 1.32-3.29 = 731-0) MONO x10^3 (test code 0.55 10*3/uL 0.33-0.92 = 742-7) EOS x10^3 (test code = 0.20 10*3/uL 0.03-0.39 711-2) BASO x10^3 (test code 0.03 10*3/uL 0.01-0.07 = 704-7) Lab Interpretation Abnormal (test code = 35827-9) [facility] CenterAD,CLC OR [facility] ONLY - INFLUENZA A & B DIRECT [id number] 01:26:00 Test Item Value Reference Range Interpretation Comments Influenza A (test code = 55757-9) Negative Negative Influenza B (test code = 78889-8) Negative Negative Lab Interpretation (test code = Normal 66574-9) [facility] Metabolic Panel (NA, K, CL, CO2, GLUCOSE, BUN, CREATININE, CA)2019-07-28 01:21:00 Test Item Value Reference Range Interpretation Comments NA (test code = 137 mmol/L 135-145 9484483855) K (test code = 3.8 mmol/L 3.5-5 7632741793) CL (test code = 100 mmol/L 98-108 7977267702) CO2 TOTAL (test code = 24 mmol/L 23-31 2733703795) AGAP (test code = 2-16 1818483082) BUN (test code = 13 mg/dL 7-23 8717074070) GLUCOSE (test code = 245 mg/dL 70-110 H 2663978894) CREATININE (test code = 0.49 mg/dL 0.5-1.04 L 9574885377) CALCIUM (test code = 9.8 mg/dL 8.6-10.6 5589929222) eGFR Calculation mL/min/1.73m2 (Non-) (test code = 7815945778) eGFR Calculation mL/min/1.73m2 () (test code = 0379781317) MADISYN (test code = MADISYN) Association of [...] tests). Lab Interpretation Abnormal (test code = 53825-3) [facility] Center[facility] (ALB, T.PRO, BILI T, BU/BC, ALT, AST, ALK PHOS)2019-07-28 01:21:00 Test Item Value Reference Range Interpretation Comments TOTAL BILI (test code = 9002293809) 0.3 mg/dL 0.1-1.1 BILI UNCON (test code = 1813683997) 0.1 mg/dL 0.1-1.1 BILI CONJ (test code = 6438845217) 0.0 mg/dL 0-0.3 T PROTEIN (test code = 0237317362) 8.2 g/dL 6.3-8.2 ALBUMIN (test code = 7261146640) 5.0 g/dL 3.5-5 ALK PHOS (test code = 1802747087) 121 U/L 34-122 ALTv (test code = 1742-6) 33 U/L 5-35 AST(SGOT) (test code = 8891465571) 30 U/L 13-40 Lab Interpretation (test code = Normal 38108-0) [facility] CenterR[facility]RE[facility] FOR GROUP [id number] 01:19:00 Test Item Value Reference Range Interpretation Comments Streptococcus pyogenes (group A) Negative Negative antigen (test code = 81040-8) Lab Interpretation (test code = Normal 91818-6) [facility] CenterXR CHEST 2 [id number] 00:53:20Impression: No acute cardiopulmonary changes. Small sized [...] are unremarkable. Smallsized hiatal hernia is present. [facility], Radiant Results Inft User - 07/27/2019 [...] reviewed this study and agree withthe above report.[facility] CenterBa[facility] (NA, K, CL, CO2, GLUCOSE, BUN, CREATININE, CA)2019-03-11 20:52:00 Test Item Value Reference Range Interpretation Comments NA (test code = 141 mmol/L 135-145 8933801696) K (test code = 3.6 mmol/L 3.5-5 9810463478) CL (test code = 104 mmol/L 98-108 7870569717) CO2 TOTAL (test code = 24 mmol/L 23-31 9299909474) AGAP (test code = 2-16 9251902972) BUN (test code = 19 mg/dL 7-23 0453415731) GLUCOSE (test code = 161 mg/dL 70-110 H 1973017951) CREATININE (test code = 0.51 mg/dL 0.5-1.04 3516289868) CALCIUM (test code = 9.4 mg/dL 8.6-10.6 9574063217) eGFR Calculation mL/min/1.73m2 (Non-) (test code = 1512500313) eGFR Calculation mL/min/1.73m2 () (test code = 2361887073) MADISYN (test code = MADISYN) Association of [...] tests). Lab Interpretation Abnormal (test code = 66104-4) [facility] CenterHep[facility] Function [facility] (ALB, T.PRO, BILI T, BU/BC, ALT, AST, ALK PHOS)2019-03-11 20:52:00 Test Item Value Reference Range Interpretation Comments TOTAL BILI (test code = 1230713790) 0.6 mg/dL 0.1-1.1 BILI UNCON (test code = 4983072722) 0.5 mg/dL 0.1-1.1 BILI CONJ (test code = 6974123381) 0.0 mg/dL 0-0.3 T PROTEIN (test code = 2386133723) 7.7 g/dL 6.3-8.2 ALBUMIN (test code = 5182290734) 4.9 g/dL 3.5-5 ALK PHOS (test code = 2531006274) 61 U/L 34-122 ALT(SGPT) (test code = 7348490188) 26 U/L 9-51 AST(SGOT) (test code = 0990407704) 28 U/L 13-40 Lab Interpretation (test code = Normal 75272-5) [facility] [id number] 20:52:00 Test Item Value Reference Range Interpretation Comments LIPASE (test code = 8113616787) 22 U/L 0-220 Lab Interpretation (test code = Normal 16439-0) [facility] 20:40:00 Test Item Value Reference Range Interpretation Comments APTT Patient (test See_Comment L [Automat ed code = 3173-2) message] The system which generated this result transmitted reference range : 23 - 38 Seconds . The reference range was not used to interpr et this result as normal/abnormal . MADISYN (test code = MADISYN) The [facility] patient population mean normal value for aPTT is 30 seconds. Lab Interpretation Abnormal (test code = 10082-6) [facility] / [id number] 20:38:00 Test Item Value Reference Range Interpretation [...] tions. Lab Interpretation (test Normal code = 61800-2) [facility] WITH [id number] 20:33:00 Test Item Value Reference Range Interpretation Comments WBC (test code = See_Comment [Automated 1190-2) message] The sy stem which generated this result transmitted reference range : 4.30 - 11.10 10*3/?L. The reference range was not used to interpret this result as normal/abnormal . RBC (test code = See_Comment [Automated 799-8) message] The sy stem which generated this [...] RDW-SD (test code = 44.3 fL 39-49.9 45932-0) RDW-CV (test code = 12.9 % 12-15.5 788-0) PLT (test code = See_Comment [Automated 777-3) message] The sy stem which generated this result transmitted reference range : 166 - 358 10*3/ ?L. The reference r aiden was not used to interpret this result as normal/abnormal . MPV (test code = 10.9 fL 9.5-12.9 45855-4) NRBC/100 WBC (test See_Comment [Automat ed code = [id number]) message] The system which generated this result transmitted reference range : 0.0 - 10.0 /100 WBCs. The refer ence range was not u sed to interpret th is result as normal/abnormal . NRBC x10^3 (test code <0.01 See_Comment [Auto mated = [id number]) message] The s ystem which generated this result transmitted reference range : 10*3/?L. The reference range was not used to interpret this result as normal/abnormal . GRAN MAT (NEUT) % 86.3 % (test code = 770-8) IMM GRAN % (test code 0.50 % = [id number]) LYMPH % (test code = 8.8 % 736-9) MONO % (test code = 4.0 % 5905-5) EOS % (test code = 0.2 % 713-8) BASO % (test code = 0.2 % 706-2) GRAN MAT x10^3(ANC) 8.24 10*3/uL 1.88-7.09 H (test code = 9553757637) IMM GRAN x10^3 (test 0.05 10*3/uL 0-0.06 code = 0039678449) LYMPH x10^3 (test code 0.84 10*3/uL 1.32-3.29 L = 731-0) MONO x10^3 (test code 0.38 10*3/uL 0.33-0.92 = 742-7) EOS x10^3 (test code = <0.03 0.03-0.39 L 711-2) BASO x10^3 (test code <0.03 0.01-0.07 = 704-7) Lab Interpretation Abnormal (test code = 16555-7) [facility]"
--- NOTE | 2023-05-17 18:42 | EDPHYS ---
Physician Documentation [facility] Name: Dolores Pérez Age: 63 yrs Sex: Female : 1960 Arrival Date: 05/17/2023 Time: 18:08 Bed 14 Private MD: ED Physician Arthur Smith HPI: 05/18 17:03 This 63 yrs old Female presents to ER via Wheelchair with complaints of Cough. sb4 17:03 Patient presents with complaints of chronic cough and low blood pressure since starting sb4 propranolol. She states that her PCP started her on medication about 3 days ago. She states that she has been checking her blood pressure 2 times a day and it has been running low. She states that today it was 101/48 and came to the ED because her PCP did not have after hours. She is feeling fine otherwise. No complaints at this time, just concerned about her blood pressure running low. Historical: - Allergies: 05/17 18:22 NSAIDS; ll1 18:22 peanuts; ll1 18:22 Prednisone; ll1 18:22 sesame seed; ll1 18:22 Sulfa (Sulfonamide Antibiotics); ll1 - PMHx: 18:22 Anxiety; Anxiety; Asthma; Asthma; COPD; COPD; depressive disorder; depressive disorder; ll1 diabetes mellitus; High Cholesterol; Hypertension; Hypothyroidism; Transient cerebral ischemia; - Immunization history:: Adult Immunizations up to date. - Social history:: Smoking status: Patient denies any tobacco usage or history of. ROS: 05/18 17:03 Constitutional: Negative for fever, chills, and weight loss, sb4 Respiratory: Positive for cough, All other systems are negative, Exam: 17:03 Constitutional: This is a well developed, well nourished patient who is awake, alert, sb4 and in no acute distress. Head/Face: Normocephalic, atraumatic. Eyes: Extra-ocular motions intact. Periorbital areas with no swelling, redness, or edema. ENT: Mucous membranes moist. Cardiovascular: Regular rate and rhythm with a normal S1 and S2. Respiratory: Lungs have equal breath sounds bilaterally, clear to auscultation and percussion. No rales, rhonchi or wheezes noted. No increased work of breathing, no retractions or nasal flaring. Abdomen/GI: Soft, non-tender, no distension. Skin: Warm, dry with normal turgor. Normal color with no rashes, no lesions, and no evidence of cellulitis. MS/ Extremity: Pulses equal, no cyanosis. Neurovascular intact. Full, normal range of motion. Vital Signs: 05/17 18:22 BP 140 / 77; Pulse 66; Resp 17; Temp 98.4; Pulse Ox 100% ; Height 5 ft. 7 in. ; Pain ll1 0/10; 18:22 Pain Scale: Adult ll1 MDM: 18:17 Patient medically screened. sb4 05/18 17:03 Data reviewed: vital signs, nurses notes, and as a result, I will discharge patient. sb4 Counseling: I had a detailed discussion with the patient and/or guardian regarding the historical points, exam findings, and any diagnostic results supporting the discharge/admit diagnosis, to return to the emergency department if symptoms worsen or persist or if there are any questions or concerns that arise at home. ED course: Discussed at length with patient that she should discontinue her medication if her blood pressures were low and to follow-up with her PCP as soon as possible to discuss this. Her blood pressure was normal here and she is asymptomatic. No chest pain, dizziness, blurry vision. Patient is safe to discharge home. Return pression given, she understood. Administered Medications: No medications were administered Disposition Summary: 05/17/23 18:42 Discharge Ordered Problem: new sb4 Symptoms: are resolved sb4 Condition: Stable sb4 Diagnosis - Hypotension due to drugs sb4 Followup: sb4 - With: Emergency Department - When: As needed - Reason: Trouble breathing, Worsening of condition Discharge Instructions: - Discharge Summary Sheet sb4 - Hypotension sb4 Forms: - Medication Reconciliation Form sb4 - Thank You Letter sb4 - Antibiotic Education sb4 - Prescription Opioid Use sb4 - Patient Portal Instructions sb4 - Leadership Thank You Letter sb4 Addendum: 05/20/2023 07:22 I was immediately available for consultation during this patient's visit. I did not e c2 personally see the patient or guide the patient's care.. Signatures: Prabha Hummel RN RN ll1 Serina Rogers PA-C PA-C sb4 Arthur Smith MD MD ec2
--- NOTE | 2023-05-17 18:42 | ER ---
Nurse's Notes [facility] Name: Dolores Pérez Age: 63 yrs Sex: Female : 1960 Arrival Date: 05/17/2023 Time: 18:08 Bed 14 Private MD: Diagnosis: Hypotension due to drugs Presentation: 05/17 18:22 Chief complaint: Patient states: Cough, runny nose, dry mouth for 2 days. Taking new BP ll1 medicine that makes her BP to low 103/48. Coronavirus screen: Vaccine status: Patient reports receiving the 2nd dose of the covid vaccine. Client denies travel out of the [place] in the last 14 days. fatigue, runny nose, Client presents with at least one sign or symptom that may indicate coronavirus-19. Standard/surgical mask placed on the client. Ebola Screen: Patient denies travel to an Ebola-affected area in the 21 days before illness onset. Initial Sepsis Screen: Does the patient meet any 2 criteria? No. Patient's initial sepsis screen is negative. Does the patient have a suspected source of infection? Yes: Productive cough/pneumonia. Risk Assessment: Do you want to hurt yourself or someone else? Patient reports no desire to harm self or others. Onset of symptoms was May 16, 2023. 18:22 Method Of Arrival: Wheelchair ll1 18:22 Acuity: AARON 3 ll1 19:04 Acuity: AARON 5 mb9 Triage Assessment: 18:24 General: Appears in no apparent distress. Behavior is calm, cooperative, appropriate ll1 for age. Pain: Denies pain. EENT: Reports nasal discharge dry mouth. Respiratory: Reports cough that is. Historical: - Allergies: 18:22 NSAIDS; ll1 18:22 peanuts; ll1 18:22 Prednisone; ll1 18:22 sesame seed; ll1 18:22 Sulfa (Sulfonamide Antibiotics); ll1 - PMHx: 18:22 Anxiety; Anxiety; Asthma; Asthma; COPD; COPD; depressive disorder; depressive disorder; ll1 diabetes mellitus; High Cholesterol; Hypertension; Hypothyroidism; Transient cerebral ischemia; - Immunization history:: Adult Immunizations up to date. - Social history:: Smoking status: Patient denies any tobacco usage or history of. Screenin:21 [facility] ED Fall Risk Assessment (Adult) History of falling in the last 3 months, mb9 including since admission No falls in past 3 months (0 pts) Confusion or Disorientation No (0 pts) Intoxicated or Sedated No (0 pts) Impaired Gait No (0 pts) Mobility Assist Device Used No (0 pt) Altered Elimination No (0 pt) Score/Fall Risk Level 0 - 2 = Low Risk Oriented to surroundings, Maintained a safe environment, Educated pt \T\ family on fall prevention, incl call for assistance when getting out of bed. Abuse screen: Denies threats or abuse. Nutritional screening: No deficits noted. Tuberculosis screening: No symptoms or risk factors identified. Assessment: 19:04 Reassessment: No changes from previously documented assessment. Patient and/or family mb9 updated on plan of care and expected duration. Pain level reassessed. Patient is alert, oriented x 3, equal unlabored respirations, skin warm/dry/pink. Vital Signs: 18:22 BP 140 / 77; Pulse 66; Resp 17; Temp 98.4; Pulse Ox 100% ; Height 5 ft. 7 in. ; Pain ll1 0/10; 18:22 Pain Scale: Adult ll1 ED Course: 18:12 Patient arrived in ED. im 18:13 Serina Rogers PA-C is PHCP. sb4 18:13 Arthur Smith MD is Attending Physician. sb4 18:21 Arm band placed on. mb9 18:21 Placed in gown. Bed in low position. Call light in reach. Side rails up X 1. Client mb9 placed on continuous cardiac and pulse oximetry monitoring. NIBP monitoring applied. 18:24 Triage completed. ll1 19:04 No provider procedures requiring assistance completed. Patient did not have IV access mb9 during this emergency room visit. Administered Medications: No medications were administered Medication: 18:21 VIS not applicable for this client. mb9 Outcome: 18:42 Discharge ordered by . sb4 19:04 Discharged to home ambulatory, mb9 19:04 Condition: stable 19:04 Discharge instructions given to patient, Instructed on discharge instructions, follow up and referral plans. Demonstrated understanding of instructions, follow-up care, 19:04 Patient left the ED. mb9 Signatures: Prabha Hummel RN RN ll1 Serina Rogers PA-C PA-C sb4 Cherise Encarnacion RN RN mb9 Brady, Jenn im
[2023-05-17 19:18] VITALS: BP 140/77; TEMP 98.4; O2SAT 100
== END 2023-05-17 19:04 | disposition home or self-care (01) ==
LOC: ER 18:08
DX: I95.2 Hypotension due to drugs (principal); R05.9 Cough, unspecified; Z88.2 Allergy status to sulfonamides; Z88.6 Allergy status to analgesic agent; Z91.010 Allergy to peanuts; Z91.018 Allergy to other foods
CPT/HCPCS: 99283

== ENCOUNTER 2023-05-25 11:55 | Emergency (ER) | payer OTHER ==
--- OUTSIDE RECORDS SUMMARY | 2023-05-25 12:01 | XMS REPORT | Continuity of Care Document ---
:1960 Author Organization [facility] t Address [address] [place] [address] Care Team Providers Name Role Phone PAULINA DUNHAM Primary Care Physician Unavailable Neida DUGGAN Attending Clinician Unavailable Neida Jiménez Attending Clinician Susan Rodriguez Attending Clinician Unknown, Attending Attending Clinician Unavailable SUSAN LEE Attending Clinician Unavailable Doctor Unassigned, [place] Attending Clinician Unavailable Only, Ang Db Test Attending Clinician Unavailable Monik Charles MD Attending Clinician MONIK CHARLES Attending Clinician Unavailable ALEX OCONNELL Attending Clinician Unavailable NelsonAlex Alarcon Attending Clinician SHERRILL CONNOR Attending Clinician [...] Effective Date Expiration Date Teodora FALK II [id number] 2016 00:00:00 Problems Condition Condition Condition Status [...] ity of 00:00: [place] 00 Medical Branch [place] [employer] Active Anaphylaxis Uni vers ty to [...] 4-10 ity of mide adverse 00:00: [place] Antibiot reaction 00 Medica l ics) s Branch Social History Social Habit Start Date Stop Date Quantity Comments Source Gender identity [facility] Social 2023-02-26 2023-02-26 Univers ity of function 00:00:00 00:00:00 [facility] Exposure to 2022-08-14 2022-08-24 Not sure [facility] SARS-CoV-2 (event) 00:00:00 09:35:00 [facility] Tobacco use and 2022-08-24 2022-08-24 Smokeless Universit y of exposure 00:00:00 00:00:00 tobacco non-user [facility] Sex Assigned At [birth year] Universit y of 00:00:00 00:00:00 [facility] Smoking Status Start Date Stop Date Source Never smoked tobacco [facility] [place] [facility] Medications Ordered Filled Start Stop Current Ordering Indication Dosage Frequency Signature Comments Components Source Medication Medication Date Date Medication? Clinician (SIG) Name Name bromphenira Yes [id number] 5mL Take 5 mL Univers mine-pseudo 2-18 by mouth 4 it y of ephedrine-D 00:00[place] ([place] (BROMFED 00 times Medical DM) 2-30-10 daily as Bran ch mg/5 mL needed for syrup Congestion /Allergies . bromphenira Yes [id number] 5mL Take 5 mL Univers mine-pseudo 2-18 by mouth 4 it y of ephedrine-D 00:00: (four[place] (BROMFED 00 times Medical DM) 2-30-10 daily as Bran ch mg/5 mL needed for syrup Congestion /Allergies . benzonatate Yes [id number] 100mg Take 1 Univers 100 mg 7-03 capsule by ity of capsule 00:00: mouth 3 [place] 00 (three) Medical times [place] daily as needed for Cough. loratadine Yes [id number] 10mg Take 1 U nivers (CLARITIN) 7-03 tablet by ity of 10 mg 00:00: mouth at [place] tablet 00 bedtime as Medical needed for Branch Allergies. benzonatate 2022-0 Yes [id number] 100mg Take 1 Univers 100 mg 7-03 capsule by ity of capsule 00:00: mouth 3 [place] 00 (three) Medical times Branch daily as needed for Cough. loratadine 2-0 Yes [id number] 10mg Take 1 U nivers (CLARITIN) 7-03 tablet by ity of 10 mg 00:00: mouth at [place] tablet 00 bedtime as Medical needed for Branch Allergies. benzonatate 2-0 Yes [id number] 100mg Take 1 Univers 100 mg 7-03 capsule by ity of capsule 00:00: mouth 3 [place] 00 (three) Medical times Branch daily as needed for Cough. loratadine 2-0 Yes [id number] 10mg Take 1 U nivers (CLARITIN) 7-03 tablet by ity of 10 mg 00:00: mouth at [place] tablet 00 bedtime as Medical needed for Branch Allergies. benzonatate 2-0 Yes [id number] 100mg Take 1 Univers 100 mg 7-03 capsule by ity of capsule 00:00: mouth 3 (three) Medical times Branch daily as needed for Cough. loratadine 2-0 Yes [id number] 10mg Take 1 U nivers (CLARITIN) 7-03 tablet by ity of 10 mg 00:00: mouth at [place] tablet 00 bedtime as Medical needed for Branch Allergies. benzonatate 2-0 Yes [id number] 100mg Take 1 Univers 100 mg 7-03 capsule by ity of capsule 00:00: mouth 3 00 (three) Medical times Branch daily as needed for Cough. loratadine 2-0 Yes [id number] 10mg Take 1 U nivers (CLARITIN) 7-03 tablet by ity of 10 mg 00:00: mouth at [place] tablet 00 bedtime as Medical needed for Branch Allergies. benzonatate 2022-0 Yes [id number] 100mg Take 1 Univers 100 mg 7-03 capsule by ity of capsule 00:00: mouth 3 [place] 00 (three) Medical times Branch daily as needed for Cough. loratadine 2022-0 Yes [id number] 10mg Take 1 U nivers (CLARITIN) 7-03 tablet by ity of 10 mg 00:00: mouth at [place] tablet 00 bedtime as Medical needed for Branch Allergies. benzonatate 2021-0 Yes [id number] 100mg Take 1 Univers 100 mg 2-01 capsule by ity of capsule 00:00: mouth 3 (three) Medical times Branch daily as needed for Cough. benzonatate 2021-0 Yes [id number] 100mg Take 1 Univers 100 mg 2-01 capsule by ity of capsule 00:00: mouth 3 (three) Medical times Branch daily as needed for Cough. benzonatate 2021-0 Yes [id number] 100mg Take 1 Univers 100 mg 2-01 capsule by ity of capsule 00:00: mouth (three) Medical times Branch daily as needed for Cough. benzonatate 2021-0 Yes [id number] 100mg Take 1 Univers 100 mg 2-01 capsule by ity of capsule 00:00: mouth (three) Medical times Branch daily as needed for Cough. benzonatate 2021-0 Yes [id number] 100mg Take 1 Univers 100 mg 2-01 capsule by ity of capsule 00:00: mouth (three) Medical times Branch daily as needed for Cough. benzonatate 2021-0 Yes [id number] 100mg Take 1 Univers 100 mg 2-01 capsule by ity of capsule 00:00: mouth (three) Medical times Branch daily as needed for Cough. benzonatate 2021-0 Yes [id number] 100mg Take 1 Univers 100 mg 2-01 capsule by ity of capsule 00:00: mouth (three) Medical times Branch daily as needed for Cough. benzonatate 2021-0 Yes [id number] 100mg Take 1 Univers 100 mg 2-01 capsule by ity of capsule 00:00: mouth (three) Medical times Branch daily as needed for Cough. benzonatate 2021-0 Yes [id number] 100mg Take 1 Univers 100 mg 2-01 capsule by ity of capsule 00:00: mouth (three) Medical times Branch daily as needed for Cough. benzonatate 2-0 Yes [id number] 100mg Take 1 Univers 100 mg 2-01 [...] Therapy: Other (see Comments) iopamidol 2020-07- No [id number] 120mL 120 mL, Univers (ISOVUE 2-25 12-24 Intravenou ity o f 370-500 mL) 00:15: 23:08 s, ONCE, 1 [place] injection 00 :00 dose, On Medica l 120 mL Fri Branch 06/29/21 at 1815, Routine amoxicillin 2020-07- No [id number] 1{tbl} Take 1 Univers -clavulanat 2-24 -04 [...] Indication s: acute pain ondansetron 2020-07- No [id number] 4mg Take 1 Univers 4 mg tablet 2-24 12-30 tablet by it y of 00:00: 05:59 mouth [place] 00 :00 every 8 Medical (eight) Branch hours for 5 days. atorvastati 2020-07 Yes 10mg 10 mg, Univ ers n (LIPITOR) 1-15 Oral, QHS, it y of tablet 10 03:00: First dose [place] mg 00 on [facility] 05/20/21 Branch at 2100, Until Discontinu ed, Routine atorvastati 2020-07 Yes 10mg Take 10 mg Univers n 10 mg 1-14 by mouth ity of tablet 17:23: at [place] 01 bedtime. Medical Branch spironolact 2020-07 Yes [...] mg 00 First dose Medical on [facility] 05/20/21 at 0900, Until Discontinu ed, Routine clopidogreL 2020-07 Yes 75mg 75 mg, Univ ers (PLAVIX) 1-14 Oral, QAM, ity o f tablet 75 15:00: First dose [place] mg 00 on [facility] 05/20/21 Branch at 0900, Until Discontinu ed, Routine ALPRAZolam 2020-07 Yes .5mg 0.5 mg, Univ ers (XANAX) 1-14 Oral, ity of tablet 0.5 15:00: DAILY, [place] mg 00 First dose Medical on [facility] 05/20/21 at 0900, Until Discontinu ed, Routine spironolact 2020-07 Yes 25mg 25 mg, Univ ers one 1-14 Oral, BID, ity of (ALDACTONE) 14:00: First dose [place] tablet 25 00 on [facility] mg 05/20/21 Branch at 0800, Until Discontinu ed, Routine Sliding 2020-07 Yes Subcutaneo Univ ers Scale 1-14 us, AC, ity of Insulin-Reg 13:30: First dose [place] ular + [facility] Branch at 0730, Until Discontinu ed, Routine levothyroxi 2020-07 Yes 100ug 100 mcg, U nivers ne 1-14 Oral, ity of (SYNTHROID) 12:00: QAM-0600, [place] tablet 100 00 First dose Med ical mcg on [facility] 05/20/21 at 0600, Until Discontinu ed, Routine pantoprazol 2020-07 Yes 40mg 40 mg, Univ ers e 1-14 Oral, ity of (PROTONIX) 06:30: DAILY, [place] EC tablet 00 First dose Medi hermelindo 40 mg (after Branch last modificati on) on [place] 05/20/21 at 0030, Until Discontinu ed cyclobenzap 2020-07 Yes 10mg 10 mg, Univ ers rine 1-14 Oral, ity of (FLEXERIL) 06:12: TIDPRN, [place] tablet 10 13 Starting Medica l mg on [facility] 05/20/21 at 0012, Until Discontinu ed, Routine, Muscle Spasms, leg pain polyethylen 2020-07 Yes 17g 17 g, Unive rs e glycol 1-14 Oral, ity of 3350 powder 06:04: [id number], [place] 17 g 16 Starting Medical on [facility] 05/20/21 at 0004, Until Discontinu ed, Routine, Constipati on glucagon 2020-07 Yes 1mg 1 mg, Univers (GLUCAGEN -14 Intramuscu ity of DIAGNOSTIC 05:29: lar, PRN, [place] KIT) 29 Starting Medical injection 1 on [facility] 05/19/21 at 2329, Until Discontinu ed, JEFFREY, Blood Glucose < or = 70 mg/dL and patient is unable to swallow or has mental changes. dextrose 50 2020-07 Yes 25mL 25 mL, Univ ers % in water 14 Slow IV ity of (D50W) 05:29: Push, PRN, [place] injection 29 Starting Medica l 25 mL on [facility] 05/19/21 at 2329, Until Discontinu ed, JEFFREY, Blood Glucose < or = 70 mg/dL and patient is unable to swallow or has mental status changes. ondansetron 2020-07 Yes 4mg 4 mg, Slow Univers (ZOFRAN 1-14 IV Push, ity of (PF)) 05:29: Q6HPRN, [place] injection 4 21 Starting Medi hermelindo mg on [facility] 05/19/21 at 2329, Until Discontinu [...] Oral, ity of (TYLENOL) 05:29: Q6HPRN, [place] tablet 650 05 Starting Medic al mg on [facility] Branch 05/19/21 at 2329, Until Discontinu ed, Routine, Pain (scale 1-3) omeprazole 2020-07- No 20mg Take 20 mg Univers 20 mg 07-19 by mouth ity of capsule 23:30: 00:00 daily. [place] 33 :00 [facility] guaiFENesin 2020- No 100mg 100 mg, U nivers 100 mg/5 mL 09-14 Oral, ity of solution 05:00: 16:59 ONCE, 1 [place] 100 mg 00 :00 dose, Fri [facility] 09/13/20 at Branch 2300, Routine ketorolac 2020- No 30mg 30 mg, Unive rs (TORADOL) 09-1411 Slow IV ity of injection 03:30: 02:27 Push, [place] 30 mg 00 :00 ONCE, 1 Medical dose, [facility] 09/13/20 at 2130, JEFFREY
Fa culty member approving Restricted medication : DIANA BERG benzonatate Yes [id number] 100mg Take 1 Univers 100 mg 3-10 capsule by ity of capsule 00:00: mouth 3 [place] 00 (three) Medical times Branch daily as needed for Cough. benzonatate Yes [id number] 100mg Take 1 Univers 100 mg 3-10 capsule by ity of capsule 00:00: mouth 3 [place] 00 (three) Medical times Branch daily as needed for Cough. benzonatate 2020- No [id number] 100mg Take 1 Univers 100 mg 09-13- [...] mL 07/27/19 at Branch solution 10 1929, JEFFERY mL codeine-gua 2019-0 Yes [id number] 10mL Take 10 mL Univers ifenesin -21 by mouth ity of 10-100 mg/5 00:00: every 6 [place] as mL solution 00 (six) Medical hours as Branch needed for Cough. albuterol 2020-0 Yes [id number] 2.5mg Inhale 3 Univers 2.5 mg /3 1-21 mL every 4 ity of mL (0.083 00:00: (four) [place] %) 00 hours as Medical nebulizer needed for Bran ch solution Wheezing or Shortness of Breath. May also nebulize one extra every 6 hours. albuterol 2020-0 Yes [id number] 2.5mg Inhale 3 Univers 2.5 mg /3 1-21 mL every 4 ity of mL (0.083 00:00: (four) [place] %) 00 hours as Medical nebulizer needed for Bran ch solution Wheezing or Shortness of Breath. May also nebulize one extra every 6 hours. albuterol 2020-0 Yes [id number] 2.5mg Inhale 3 Univers 2.5 mg /3 1-21 mL every 4 ity of mL (0.083 00:00: (four) [place] %) 00 hours as Medical nebulizer needed for Bran ch solution Wheezing or Shortness of Breath. May also nebulize one extra every 6 hours. albuterol 2020-0 Yes [id number] 2.5mg Inhale 3 Univers 2.5 mg /3 1-21 mL every 4 ity of mL (0.083 00:00: (four) [place] %) 00 hours as Medical nebulizer needed for Bran ch solution Wheezing or Shortness of Breath. May also nebulize one extra every 6 hours. albuterol 2020-0 Yes [id number] 2.5mg Inhale 3 Univers 2.5 mg /3 1-21 mL every 4 ity of mL (0.083 00:00: (four) [place] %) 00 hours as Medical nebulizer needed for Bran ch solution Wheezing or Shortness of Breath. May also nebulize one extra every 6 hours. albuterol 2020-0 Yes [id number] 2.5mg Inhale 3 Univers 2.5 mg /3 1-21 mL every 4 ity of mL (0.083 00:00: ([facility]) [place] %) 00 hours as Medical nebulizer needed for Bran ch solution Wheezing or Shortness of Breath. May also nebulize one extra every 6 hours. albuterol 2020-0 Yes [id number] 2.5mg Inhale 3 Univers 2.5 mg /3 1-21 mL every 4 ity of mL (0.083 00:00: (four) [place] %) 00 hours as Medical nebulizer needed for Bran ch solution Wheezing or Shortness of Breath. May also nebulize one extra every 6 hours. albuterol 2020-0 Yes [id number] 2.5mg Inhale 3 Univers 2.5 mg /3 1-21 mL every 4 ity of mL (0.083 00:00: (four) [place] %) 00 hours as Medical nebulizer needed for Bran ch solution Wheezing or Shortness of Breath. May also nebulize one extra every 6 hours. albuterol 2020-0 Yes [id number] 2.5mg Inhale 3 Univers 2.5 mg /3 1-21 mL every 4 ity of mL (0.083 00:00: (four) [place] %) 00 hours as Medical nebulizer needed for Bran ch solution Wheezing or Shortness of Breath. May also nebulize one extra every 6 hours. albuterol 2020-0 Yes [id number] 2.5mg Inhale 3 Univers 2.5 mg /3 1-21 mL every 4 ity of mL (0.083 00:00: (four) [place] %) 00 hours as Medical nebulizer needed for Bran ch solution Wheezing or Shortness of Breath. May also nebulize one extra every 6 hours. albuterol 2020-0 Yes [id number] 2.5mg Inhale 3 Univers 2.5 mg /3 1-21 mL every 4 ity of mL (0.083 00:00: (four) [place] %) 00 hours as Medical nebulizer needed for Bran ch solution Wheezing or Shortness of Breath. May also nebulize one extra every 6 hours. albuterol 2020-0 Yes [id number] 2.5mg Inhale 3 Univers 2.5 mg /3 1-21 mL every 4 ity of mL (0.083 00:00: (four) [place] %) 00 hours as Medical nebulizer needed for Bran ch solution Wheezing or Shortness of Breath. May also nebulize one extra every 6 hours. albuterol 2020-0 Yes [id number] 2.5mg Inhale 3 Univers 2.5 mg /3 1-21 mL every 4 ity of mL (0.083 00:00: (four) [place] %) 00 hours as Medical nebulizer needed for Bran ch solution Wheezing or Shortness of Breath. May also nebulize one extra every 6 hours. albuterol 2020-0 Yes [id number] 2.5mg Inhale 3 Univers 2.5 mg /3 1-21 mL every 4 ity of mL (0.083 00:00: (four) [place] %) 00 hours as Medical nebulizer needed for Bran ch solution Wheezing or Shortness of Breath. May also nebulize one extra every 6 hours. albuterol 2020-0 Yes [id number] 2.5mg Inhale 3 Univers 2.5 mg /3 1-21 mL every 4 ity of mL (0.083 00:00: (four) [place] %) 00 hours as Medical nebulizer needed for Bran ch solution Wheezing or Shortness of Breath. May also nebulize one extra every 6 hours. albuterol 2020-0 Yes [id number] 2.5mg Inhale 3 Univers 2.5 mg /3 1-21 mL every 4 ity of mL (0.083 00:00: (four) [place] %) 00 hours as Medical nebulizer needed for Bran ch solution Wheezing or Shortness of Breath. May also nebulize one extra every 6 hours. codeine-gua 2020- No [id number] 10mL Take 10 mL Univers ifenesin 07-27 [...] 03/11/19 at 1430, JEFFREY dicyclomine 2018- Yes [id number] 10mg Take 1 Univers (BENTYL) 10 9-05 capsule by it y of mg capsule 00:00: mouth 4 [place] (four) Medical times Branch daily. ondansetron 2018- Yes [id number] 4mg Take 1 Univers 4 mg 9-05 tablet by ity of disintegrat 00:00: mouth [place] ing tablet 00 every 4 Medica l (four) Branch hours as needed for Nausea and Vomiting (N/V). dicyclomine 2019-0 Yes [id number] 10mg Take 1 Univers (BENTYL) 10 9-05 capsule by it y of mg capsule 00:00: mouth 4 [place] 00 (four) Medical times Branch daily. ondansetron 2019-0 Yes [id number] 4mg Take 1 Univers 4 mg 9-05 tablet by ity of disintegrat 00:00: mouth [place] ing tablet 00 every 4 Medica l (four) Branch hours as needed for Nausea and Vomiting (N/V). dicyclomine 2019-0 Yes [id number] 10mg Take 1 Univers (BENTYL) 10 9-05 capsule by it y of mg capsule 00:00: mouth 4 [place] (four) Medical times Branch daily. ondansetron Yes [id number] 4mg Take 1 Univers 4 mg 9-05 tablet by ity of disintegrat 00:00: mouth [place] ing tablet 00 every 4 Medica l (four) Branch hours as needed for Nausea and Vomiting (N/V). dicyclomine 2020- No [id number] 10mg Take 1 Univers (BENTYL) 10 9-05 03-10 capsule by i ty of mg capsule 00:00: 00:00 mouth 4 [place] as 00 :00 (four) Medical times Branch daily. ondansetron 2020- No [id number] 4mg Take 1 Univers 4 mg 9-05 [...] by mouth ity of tablet 14:40: at [place] [address] bedtime. Medical Branch omeprazole 2018-0 Yes 20mg Take 20 mg U nivers 20 mg 4-10 by mouth ity of capsule 14:40: daily. [place] [address] Medical Branch atorvastati 2018-0 Yes 10mg Take 10 mg Univers n 10 mg 4-10 by mouth ity of tablet 14:40: at [place] [address] bedtime. Medical Branch omeprazole 2018-0 Yes 20mg Take 20 mg U nivers 20 mg 4-10 by mouth ity of capsule 14:40: daily. [place] [address] Medical Branch atorvastati 2017-0 Yes 10mg Take 10 mg Univers n 10 mg 4-10 by mouth ity of tablet 14:40: at [place] [address] bedtime. Medical Branch omeprazole 2018-0 Yes 20mg Take 20 mg U nivers 20 mg 4-10 by mouth ity of capsule 14:40: daily. [place] [address] Medical Branch atorvastati 2017-0 Yes 10mg Take 10 mg Univers n 10 mg 4-10 by mouth ity of tablet 14:40: at [place] [address] bedtime. Medical Branch omeprazole 2017-0 Yes 20mg Take 20 mg U nivers 20 mg 4-10 by mouth ity of capsule 14:40: daily. [place] [address] Medical Branch atorvastati 2017-0 Yes 10mg Take 10 mg Univers n 10 mg 4-10 by mouth ity of tablet 14:40: at [place] [address] bedtime. Medical Branch omeprazole 2018-0 Yes 20mg Take 20 mg U nivers 20 mg 4-10 by mouth ity of capsule 14:40: daily. [place] [address] Medical Branch levothyroxi 0 Yes TAKE 1 Univ ers ne 125 mcg 4-10 TABLET BY ity of tablet 00:00: MOUTH [place] 00 EVERY Medical MORNING Branch levothyroxi 2017-0 Yes TAKE 1 Univ ers ne 125 mcg 4-10 TABLET BY ity of tablet 00:00: MOUTH [place] EVERY Medical MORNING Branch levothyroxi 2018-0 Yes TAKE 1 Univ ers ne 125 mcg 4-10 TABLET BY ity of tablet 00:00: MOUTH [place] EVERY Medical MORNING Branch levothyroxi 2017-0 Yes TAKE 1 Univ ers ne 125 mcg 4-10 TABLET BY ity of tablet 00:00: MOUTH [place] EVERY Medical MORNING Branch levothyroxi 2018-0 Yes [...] BY ity of tablet 00:00: MOUTH [place] 00 EVERY Medical MORNING Branch clopidogrel 2018-0 Yes TAKE 1 Univ ers 75 mg 2-06 TABLET BY ity of tablet 00:00: MOUTH [place] 00 EVERY Medical MORNING Branch clopidogrel 2018-0 Yes TAKE 1 Univ ers 75 mg 2-06 TABLET BY ity of tablet 00:00: MOUTH [place] 00 EVERY Medical MORNING Branch clopidogrel 2018-0 Yes TAKE 1 Univ ers 75 mg 2-06 TABLET BY ity of tablet 00:00: MOUTH [place] 00 EVERY Medical MORNING Branch clopidogrel 2018-0 Yes TAKE 1 Univ ers 75 mg 2-06 TABLET BY ity of tablet 00:00: MOUTH [place] 00 EVERY Medical MORNING Branch clopidogrel 2018-0 Yes TAKE 1 Univ ers 75 mg 2-06 TABLET BY ity of tablet 00:00: MOUTH [place] 00 EVERY Medical MORNING Branch clopidogrel 2018-0 Yes TAKE 1 Univ ers 75 mg 2-06 TABLET BY ity of tablet 00:00: MOUTH [place] 00 EVERY Medical MORNING Branch clopidogrel 2018-0 Yes TAKE 1 Univ ers 75 mg 2-06 TABLET BY ity of tablet 00:00: MOUTH [place] 00 EVERY Medical MORNING Branch clopidogrel 2018-0 Yes TAKE 1 Univ ers 75 mg 2-06 TABLET BY ity of tablet 00:00: [facility] 00 EVERY Medical MORNING Branch clopidogrel 2018-0 Yes TAKE 1 Univ ers 75 mg 2-06 TABLET BY ity of tablet 00:00: MOUTH [place] 00 EVERY Medical MORNING Branch clopidogrel 2018-0 Yes TAKE 1 Univ ers 75 mg 2-06 TABLET BY ity of tablet 00:00: MOUTH [place] 00 EVERY Medical MORNING Branch clopidogrel 2018-0 Yes TAKE 1 Univ ers 75 mg 2-06 TABLET BY ity of tablet 00:00: MOUTH [place] 00 EVERY Medical MORNING Branch clopidogrel 2018-0 Yes TAKE 1 Univ ers 75 mg 2-06 TABLET BY ity of tablet 00:00: MOUTH [place] 00 EVERY Medical MORNING Branch clopidogrel 2018-0 Yes TAKE 1 Univ ers 75 mg 2-06 TABLET BY ity of tablet 00:00: MOUTH [place] 00 EVERY Medical MORNING Branch clopidogrel 2018-0 [...] 20:38:00 149 mm[Hg] Univer sity of pressure [place] [facility] [place] Diastolic blood 2023-02-26 20:38:00 75 mm[Hg] Unive rsity of [facility] Heart rate 2023-02-26 20:38:00 81 /min Universi ty of [facility] Body temperature 2023-02-26 20:38:00 36.72 Brittany [facility] 2023-02-26 20:38:00 18 /min [facility] Body height 2023-02-26 20:38:00 170.2 cm Universi ty of [facility] Body weight 2023-02-26 20:38:00 57.607 kg Universi ty of [facility] BMI 2023-02-26 20:38:00 19.89 kg/m2 Universi ty [facility] Oxygen saturation in 2023-02-26 20:38:00 100 /min [facility] Arterial blood by [facility] Pulse oximetry Branch Systolic blood 2022-08-24 15:43:00 135 mm[Hg] Univer sity of [facility] Diastolic blood 2022-08-24 15:43:00 83 mm[Hg] Unive rsity of [facility] Heart rate 2022-08-24 15:43:00 94 /min Universi ty of [facility] Body temperature 2022-08-24 15:43:00 36.83 Brittany Univ ersity of [facility] Respiratory rate 2022-08-24 15:43:00 18 /min Univ ersity of [facility] Body height 2022-08-24 15:43:00 170.2 cm Universi ty of [facility] Body weight 2022-08-24 15:43:00 58.968 kg Universi ty of [facility] BMI 2022-08-24 15:43:00 20.36 kg/m2 Universi ty of [place] [facility] Oxygen saturation in 2022-08-24 15:43:00 99 /min University of Arterial blood by [facility] hermelindo Pulse oximetry Branch Systolic blood 2022-01-08 02:02:00 147 mm[Hg] Univer sity of pressure [place] [facility] Diastolic blood 2022-01-08 02:02:00 78 mm[Hg] Unive rsity of pressure [place] [facility] Heart rate 2022-01-08 02:02:00 78 /min Universi ty of [place] [facility] Respiratory rate 2022-01-08 02:02:00 18 /min Univ ersity of [place] [facility] Oxygen saturation in 2022-01-08 02:02:00 100 /min University of Arterial blood by [facility] Pulse oximetry Branch Body temperature 2022-01-07 23:24:00 37.17 Brittany Univ ersity of [place] [facility] Body weight 2022-01-07 23:24:00 58.968 kg Universi ty of [place] [facility] BMI 2022-01-07 23:24:00 20.36 kg/m2 Universi ty of [place] [facility] Systolic blood 2022-01-06 20:29:00 140 mm[Hg] Univer sity of pressure [place] [facility] Diastolic blood 2022-01-06 20:29:00 106 mm[Hg] Unive rsity of pressure [place] [facility] Heart rate 2022-01-06 20:29:00 102 /min Universi ty of [place] [facility] Body temperature 2022-01-06 20:29:00 37.5 Brittany Univ ersity of [place] [facility] Respiratory rate 2022-01-06 20:29:00 16 /min Univ ersity of [place] [facility] Body height 2022-01-06 20:29:00 170.2 cm Universi ty of [place] [facility] Body weight 2022-01-06 20:29:00 58.968 kg Universi ty of [place] [facility] BMI 2022-01-06 20:29:00 20.36 kg/m2 Universi ty of [place] [facility] Oxygen saturation in 2022-01-06 20:29:00 99 /min University of Arterial blood by [facility] Pulse oximetry Branch Systolic blood 2021-09-02 01:52:00 132 mm[Hg] Univer sity of [facility] Diastolic blood 2021-09-02 01:52:00 75 mm[Hg] Unive rsity of pressure [facility] Heart rate 2021-09-02 01:52:00 67 /min [facility] Respiratory rate 2021-09-02 01:52:00 16 /min [facility] Oxygen saturation in 2021-09-02 01:52:00 99 /min University of Arterial blood by [facility] Pulse oximetry Branch Body temperature 2021-09-01 23:57:00 36.17 Brittany [facility] Body height 2021-09-01 23:57:00 170.2 cm [facility] Body weight 2021-09-01 23:57:00 58.968 kg [facility] BMI 2021-09-01 23:57:00 20.36 kg/m2 [facility] Systolic blood 2021-08-07 15:57:00 165 mm[Hg] Univer sity of pressure [facility] Diastolic blood 2021-08-07 15:57:00 71 mm[Hg] Unive rsity of pressure [facility] Heart rate 2021-08-07 15:57:00 97 /min [facility] Body temperature 2021-08-07 15:57:00 37.44 Brittany [facility] Respiratory rate 2021-08-07 15:57:00 18 /min [facility] Body height 2021-08-07 15:57:00 170.2 cm [facility] Body weight 2021-08-07 15:57:00 56.7 kg [facility] BMI 2021-08-07 15:57:00 19.58 kg/m2 [facility] Oxygen saturation in 2021-08-07 15:57:00 98 /min University of Arterial blood by [facility] Pulse oximetry Branch Systolic blood 2021-06-30 01:29:00 132 mm[Hg] Univer sity of pressure [facility] Diastolic blood 2021-06-30 01:29:00 75 mm[Hg] Unive rsity of pressure [facility] Heart rate 2021-06-30 01:29:00 75 /min [facility] [place] [facility] Respiratory rate 2021-06-30 01:29:00 18 /min [facility] [place] [facility] Oxygen saturation in 2021-06-30 01:29:00 100 /min University of Arterial blood by [facility] Pulse oximetry Branch Body temperature 2021-06-29 22:01:00 36.67 Brittany [facility] [place] [facility] Body weight 2021-06-29 22:01:00 53.071 kg [facility] [place] [facility] BMI 2021-06-29 22:01:00 18.32 kg/m2 [facility] [place] [facility] Systolic blood 2021-05-20 21:45:00 137 mm[Hg] Univer [facility]ity of pressure [facility] Diastolic blood 2021-05-20 21:45:00 75 mm[Hg] Unive rsity of pressure [facility] Heart rate 2021-05-20 21:45:00 75 /min [facility] [place] [facility] Body temperature 2021-05-20 21:45:00 36.5 Brittany [facility] [place] [facility] Respiratory rate 2021-05-20 21:45:00 16 /min [facility] [place] [facility] Oxygen saturation in 2021-05-20 21:45:00 97 /min University of Arterial blood by [facility] Pulse oximetry Branch Body weight 2021-05-20 04:14:00 [...] 97 /min University of Arterial blood by [facility] Pulse oximetry Branch Body temperature 2020-09-14 02:10:00 36.5 Brittany [facility] Body height 2020-09-14 02:09:00 170.2 cm [facility] Body weight 2020-09-14 02:09:00 61.236 kg [facility] BMI 2020-09-14 02:09:00 21.14 kg/m2 [facility] Systolic blood 2020-09-14 03:30:00 147 mm[Hg] Univer [facility] of pressure [facility] Diastolic blood 2020-09-14 03:30:00 89 mm[Hg] Unive rsity of pressure [facility] Heart rate 2020-09-14 03:30:00 73 /min [facility] Respiratory rate 2020-09-14 03:30:00 19 /min [facility] Oxygen saturation in 2020-09-14 03:30:00 97 /min University of Arterial blood by [place] [employer] Pulse oximetry Branch Body temperature 2020-09-14 02:10:00 36.5 Brittany [facility] Body height 2020-09-14 02:09:00 170.2 cm [facility] Body weight 2020-09-14 02:09:00 61.236 kg [facility] BMI 2020-09-14 02:09:00 21.14 kg/m2 [facility] Heart rate 2019-07-28 01:36:00 70 /min [facility] Respiratory rate 2019-07-28 01:36:00 18 /min [facility] Oxygen saturation in 2019-07-28 01:24:00 98 /min [facility] Ar[place]ial blood by [place] [employer] Pulse oximetry Branch Systolic blood 2019-07-28 01:00:00 143 mm[Hg] Univer [facility]ity of [facility] Diastolic blood 2019-07-28 01:00:00 74 mm[Hg] Unive rsity of pressure [facility] Body temperature 2019-07-28 00:05:00 36.56 Brittany [facility] Body height 2019-07-28 00:05:00 170.2 cm [facility] Body weight 2019-07-28 00:05:00 68.04 kg [facility] BMI 2019-07-28 00:05:00 23.49 kg/m2 [facility] Heart rate 2019-07-28 01:36:00 70 /min [facility] Respiratory rate 2019-07-28 01:36:00 18 /min [facility] Oxygen saturation in 2019-07-28 01:24:00 98 /min [facility] Arterial blood by [place] [employer] Pulse oximetry Branch Systolic blood 2019-07-28 01:00:00 143 mm[Hg] Univer sity of pressure [facility] Diastolic blood 2019-07-28 01:00:00 74 mm[Hg] Unive rsity of pressure [facility] Body temperature 2019-07-28 00:05:00 36.56 Brittany [facility] Body height 2019-07-28 00:05:00 170.2 cm [facility] [place] [facility] [place] Body weight 2019-07-28 00:05:00 68.04 kg [facility] BMI 2019-07-28 00:05:00 23.49 kg/m2 [facility] Systolic blood 2019-03-11 21:00:00 141 mm[Hg] Univer sity of pressure [facility] Diastolic blood 2019-03-11 21:00:00 66 mm[Hg] Unive rsity of pressure [facility] Heart rate 2019-03-11 21:00:00 97 /min [facility] Respiratory rate 2019-03-11 21:00:00 18 /min [facility] Oxygen saturation in 2019-03-11 21:00:00 97 /min University of Arterial blood by [facility] Pulse oximetry Branch Body temperature 2019-03-11 19:13:00 36.06 Brittany [facility] Body weight 2019-03-11 19:12:00 68.04 kg [facility] BMI 2019-03-11 19:12:00 23.49 kg/m2 [facility] Systolic blood 2019-03-11 21:00:00 141 mm[Hg] Univer [facility]ity of [facility] Diastolic blood 2019-03-11 21:00:00 66 mm[Hg] [facility]ive [facility] [place] [facility] Heart rate 2019-03-11 21:00:00 97 /min [facility] Respiratory rate 2019-03-11 21:00:00 18 /min [facility] Oxygen saturation in 2019-03-11 21:00:00 97 /min [facility] Arterial blood by [facility] Pulse oximetry [place] Body temperature 2019-03-11 19:13:00 36.06 Brittany [facility] Body weight 2019-03-11 19:12:00 68.04 kg [facility] BMI 2019-03-11 19:12:00 23.49 kg/m2 [facility] Procedures Procedure Date / Time Performing Clinician Source Performed COMP. METABOLIC PANEL 2023-02-26 21:14:00 Neida Duggan [facility] ([id number]) [facility] CBC WITH DIFF 2023-02-26 21:14:00 Neida Duggan [place] [facility] CONSENT/REFUSAL FOR 2023-02-26 20:33:07 Doctor Unassigned, No Un [facility] DIAGNOSIS AND TREATMENT Name [facility] POCT SARS-COV-2 ANTIGEN 2022-08-24 15:52:00 Susan Lee [facility] (BINAX NOW) [facility] POCT MOLECULAR FLU 2022-08-24 15:51:00 Unknown, Attending [facility] ASSIGNMENT OF BENEFITS 2022-08-24 15:38:07 Doctor Unassigned, No [facility] Name [facility] XR CHEST 1 VW 2022-01-08 00:24:42 Alex Oconnell [facility] RAPID STREP SCREEN FOR 2022-01-06 20:47:00 [facility] GROUP A Medical Branch COVID-19 (ID NOW RAPID 2022-01-06 20:47:00 Sherrill [facility] TESTING) Medical Branch CONSENT/REFUSAL FOR 2022-01-06 20:26:18 Doctor Unassigned, No Un [facility] DIAGNOSIS AND TREATMENT Name [facility] RAPID INFLUENZA A/B 2021-09-02 00:47:00 Cameron Dalton [facility] COVID-19 (ID NOW RAPID 2021-09-02 00:47:00 Cameron Dalton [facility] TESTING) Medical Branch XR CHEST 2 VW 2021-09-02 00:27:31 [facility] FOR 2021-09-01 23:46:25 Doctor Unassigned, No [facility] Name Medical Branch XR CHEST 2 VW 2021-08-07 16:43:01 Darius Ledesma [facility] CONSENT/REFUSAL FOR 2021-08-07 15:37:28 Doctor Unassigned, No [facility] Name [facility] CT ABDOMEN PELVIS W 2021-06-29 23:11:24 Jose Alejandro Castano [facility] CONTRAST Medical Branch LIPASE 2021-06-29 22:18[facility] 2021-06-29 22:18:00 Omaira [facility] COMP. METABOLIC PANEL 2021-06-29 22:18:00 Omaira [facility] ([id number]) Medical Branch CBC WITH DIFF 2021-06-29 22:18:00 Omaira [facility] URINALYSIS 2021-06-29 22:18:00 [facility] CONSENT/REFUSAL FOR 2021-06-29 21:50:47 Doctor Unassigned, No [facility] Name [facility] POCT GLUCOSE (AUTOMATED) 2021-05-20 17:30:00 Marcelina Che [facility] HB ECG ROUTINE & RHYTHM 2021-05-20 15:36:46 Sami Caceres [facility] STRIP [facility] TRANSTHORACIC ECHO (TTE) 2021-05-20 15:19:52 [facility] COMPLETE [facility] TROPONIN I 2021-05-20 11:04:00 Yane [facility] BASIC METABOLIC PANEL 2021-05-20 11:04[facility] ([facility], K, CL, CO2, Medical Branch GLUCOSE, BUN, CREATININE, CA) CBC WITH DIFF 2021-05-20 11:04:00 Marcelina Che [facility] TROPONIN I 2021-05-20 01:56:00 Neida Duggan [facility] XR CHEST 1 VW 2021-05-20 00:01:05 Neida Duggan [facility] LIPASE 2021-05-19 23:49:00 Neida Duggan [facility] MAGNESIUM 2021-05-19 23:49:00 Neida Duggan [facility] TROPONIN I 2021-05-19 23:49:00 Neida Duggan [facility] COMP. METABOLIC PANEL 2021-05-19 23:49:00 Neida Duggan [facility] ([id number]) [facility] CBC WITH DIFF 2021-05-19 23:49:00 Neida Duggan [facility] PROTHROMBIN TIME / INR 2021-05-19 23:49:00 [facility] ACTIVATED PARTIAL 2021-05-19 23:49:00 Neida Duggan [facility] THRMPLAS [facility] COVID-19 (ID NOW RAPID 2021-05-19 23:49:00 Neida Duggan [facility] TESTING) [facility] CONSENT/REFUSAL FOR 2021-05-19 23:01:42 Doctor Unassigned, No [facility] DIAGNOSIS AND TREATMENT Name Medical Branch URINALYSIS 2020-09-14 02:42:00 Diana Berg [facility] XR CHEST 1 VW 2020-09-14 02:30:21 Diana Berg [facility] LIPASE 2020-09-14 02:21:00 Diana Berg [facility] TROPONIN I 2020-09-14 02:21:00 Diana Berg [facility] HEPATIC FUNCTION PANEL 2020-09-14 02:21:00 Diana Berg [facility] ([id number]) (ALB,T.PRO,BILI Medical Branch T,BU/BC,ALT,AST,ALK PHOS) BASIC METABOLIC PANEL 2020-09-14 02:21:00 Diana Berg [facility] [place] (NA, K, CL, CO2, Medical Branch GLUCOSE, BUN, CREATININE, CA) CBC WITH DIFF 2020-09-14 02:21:00 Diana Berg [facility] N-TERMINAL PRO-BNP 2020-09-14 02:21:00 [facility] (ID NOW RAPID 2020-09-14 02:21:00 Diana Berg [facility] [place] [facility] NOTICE OF PRIVACY 2020-09-14 02:00:22 Doctor Unassigned, No [facility] Name [facility] CONSENT/REFUSAL FOR 2020-09-14 01:58:28 Doctor Unassigned, No Un [facility] [place] DIAGNOSIS AND TREATMENT Name [facility] HEPATIC FUNCTION PANEL 2019-07-28 00:55:00 [facility]angel [facility] ([id number] (ALB,T.PRO,BILI Medical Branch T,BU/BC,ALT,AST,ALK PHOS) BASIC METABOLIC PANEL 2019-07-28 00:55:00 Mariangel Ortega [facility] [place] (NA, K, CL, CO2, Medical Branch GLUCOSE, BUN, CREATININE, CA) CBC WITH DIFFERENTIAL 2019-07-28 00:55:00 Mariangel Ortega [facility] RAPID STREP SCREEN FOR 2019-07-28 00:55:00 Mariangel [facility] A [facility] ADC,CLC OR LCC ONLY - 2019-07-28 00:55:00 Mariangel Ortega [facility] [place] INFLUENZA A & B DIRECT Medical [place] ANTIGEN CBC WITH DIFFERENTIAL 2019-07-28 00:55:00 Mariangel Ortega [facility] XR CHEST 2 VW 2019-07-28 00:28:40 Mariangel Ortega [facility] CONSENT/REFUSAL FOR 2019-07-27 23:47:18 Doctor Unassigned, No Un [facility] [place] DIAGNOSIS AND TREATMENT Name Medical Branch LIPASE 2019-03-11 19:53:00 Sherrill Connor [place] [facility] HEPATIC FUNCTION PANEL 2019-03-11 19:53:00 Sherrill Connor [facility] ([id number]) (ALB,T.PRO,BILI [facility] T,BU/BC,ALT,AST,ALK PHOS) BASIC METABOLIC PANEL 2019-03-11 19:53:00 Sherrill Connor [facility] (NA, K, CL, CO2, Medical Branch GLUCOSE, BUN, CREATININE, CA) CBC WITH DIFFERENTIAL 2019-03-11 19:53:00 Sherrill Connor [facility] PROTHROMBIN TIME / INR 2019-03-11 19:53:00 Sherrill [facility] ACTIVATED PARTIAL 2019-03-11 19:53:00 Sherrill Connor [facility] NOTICE OF PRIVACY 2019-03-11 18:56:54 Doctor Unassigned, No Univ [facility] PRACTICES Name [facility] Encounters Start End Encounter Admission Attending Care Care Encounter Source Date/Time Date/Time Type Type Clinicians Facility Department ID 2021-05-06 Emergency [facility] [id number] Univers 05:05:13 ity of [facility] 2023-02-26 2023-02-26 Emergency X OLGA LIDIA Neida [facility] ERT [id number] Univers 15:53:00 17:52:00 ity of [facility] 2023-02-26 2023-02-26 Emergency Olga LidiaNeida [facility] [id number] Univers 15:53:00 17:52:00 Leonarda DENNISON [id number] i ty [id number] [place] [facility] [phone] [facility] 084 Branch 2022-08-24 2022-08-24 Urgent Susan Lee [facility] 1.2.840.11 [id number] Univers 09:40:00 10:00:00 Care Unknown, Attending HEALTH [id number] ity of [place] [id number] Amandeep as JOCELYN?BLEA [phone] Mi dical [address] MEDICAL OFFICE BUILDING 2022-08-24 2022-08-24 Outpatient R TAMIKO [facility] [id number] Univers 09:40:00 09:40:00 SUSAN ity of [facility] 2022-08-24 2022-08-24 Orders Doctor SUSHIL [id number] Univers 00:00:00 00:00:00 Only Unassigned, KIRK [id number] ity [place] [facility] [id number] Amandeep as [phone] [address] 2022-01-11 2022-01-11 Laboratory Only, Ang Db Test [facility] 1.2.8 40.114 [id number] Univers 13:15:00 13:30:00 Only Monik Charles [facility] [id number] ity of [place] [id number] Amandeep as JOCELYN?BLEA [phone] [address] MEDICAL OFFICE BUILDING 2022-01-11 2022-01-11 Outpatient Torres CHARLES [facility] [id number] Univers 13:15:00 13:24:38 MONIK delaney [facility] 2022-01-07 2022-01-07 [facility] [id number] Univers 18:26:00 21:08:00 ALEX garcia [facility] 2022-01-07 2022-01-07 Emergency [facility] [id number] Univers 18:26:00 21:08:00 Alex DENNISON [id number] ity [place] [id number] [facility] [phone] [address] 2022-01-06 2022-01-06 Emergency X [facility] ERT [id number] Univers 15:31:00 16:32:00 SHERRILL delaney [facility] 2022-01-06 2022-01-06 Emergency [facility] [id number] Univers 15:31:00 16:32:00 Sherrill DENNISON [id number] i ty [facility] [id number] [facility] [id number] [address] 2021-09-01 2021-09-01 Emergency X [facility] ERT [id number] Univers 17:59:00 19:56:00 CAMERON delaney [facility] 2021-09-01 2021-09-01 Emergency [facility] 1.2.840.114 [id number] Univers 17:59:00 19:56:00 Cameron DENNISON [id number] i ty [place]2.[place] [phone] [place] [address] [place] 2021-09-01 2021-09-01 Orders Doctor SUSHIL 1.2.840.114 [id number] Univers 00:00:00 00:00:00 Only Unassigned, KIRK [id number] ity of [place] [facility] [id number] Amandeep as [phone] [facility] 009 [place] 2021-08-08 2021-08-08 Letter SUSHIL Daniels 1.2.840.114 [id number] Univers 00:00:00 00:00:00 (Out) Nirmala BRADLEY [id number] it y of HOSPITAL [id number] Amandeep as [phone] [facility] 019 [place] 2021-08-07 2021-08-07 Emergency X [facility] ERT [id number] Univers 09:58:00 11:43:00 DARIUS delaney of [facility] 2021-08-07 2021-08-07 Emergency [facility] [id number] Univers 09:58:00 11:43:00 Darius BRAGGDORINA [id number] i ty of [place] 4[place]2.7.2.686 [place] [facility] [phone] [place] [address] [place] 2021-08-07 2021-08-07 Orders Doctor SUSHIL 1.2.840.114 [id number] Univers 00:00:00 00:00:00 Only Unassigned, KIRK [id number] ity of [place] [facility] 4.2.7.2.686 Amandeep as [phone] [facility] 009 [place] 2021-06-29 2021-06-29 Emergency X OMAIRA [facility] ERT [id number] Univers 16:04:00 19:33:00 JOSE ALEJANDRO delaney [facility] 2021-06-29 2021-06-29 Emergency Omaira [facility] 1.2.840.114 [id number] Univers 16:04:00 19:33:00 Jose Alejandro DENNISON [id number] i ty [facility] 4.2.7.2.686 [facility] [phone] [address] 2021-05-19 2021-05-20 [facility] [id number] Univers 17:04:00 17:03:00 MARCELINA delaney [facility] 2021-05-19 2021-05-20 Emergency Neida Duggan Leonarda [facility] 1..840. 114 [id number] Univers 17:04:00 17:03:00 Marcelina Che JESI 350.1.13.10 ity [facility] [id number] [facility] [id number] [address] 2020-09-16 2020-09-16 Outpatient R LUIS MANUEL [facility] [id number] Univers 10:20:00 10:20:00 NICOLE ity [facility] 2020-09-16 2020-09-16 Laboratory Lab, [facility] 1..840.114 [id number] 09:44:15 10:04:15 Only Fam Pob I Health 350.1.13.10 [place] 4.2.7.2.686 Professio [id number] [place] [address] [address] 2020-09-16 2020-09-16 Laboratory Lab, [facility] Fam Pob I [facility] 1.. 840.114 [id number] Univers 09:44:15 10:04:15 Only Nicole [facility] 350.1.13.10 ity of [place] [id number] Amandeep as Professio [phone] Mi dical [address] Office [address] 2020-09-13 2020-09-13 Emergency [facility] 1.2.840.114 [id number] 20:05:00 22:24:00 Diana Dennison 350.1.13.10 [place] 4.2.7.2.686 [place] [id number] [facility] 2020-09-13 2020-09-13 Emergency Rohan, [facility] 1.2.840.114 [id number] [facility] 20:05:00 22:24:00 Diana Braggton 350.1.13.10 ity of [place] 4.2.7.2.686 [facility] [id number] [address] 2019-07-27 2019-07-27 Emergency [facility] 1.2.840.114 [id number] 18:07:12 20:13:00 Mariangel Ada Jesi 350.1.13.10 [place] 4.2.7.2.686 [place] [id number] [facility] 2019-07-27 2019-07-27 Emergency [facility] 1.2.840.114 [id number] [facility] 18:07:12 20:13:00 Mariangel Dennison [id number] ity of [place] 4.2.7.2.686 [facility] [phone] [address] 2019-07-27 2019-07-27 Orders Doctor LING 1.2.840.114 [id number] 00:00:00 00:00:00 Only Unassigned, KIRK 350.1.13.10 [place] [facility] 4.2.7.2.686 [id number] [facility] 2019-07-27 2019-07-27 Orders Doctor LING 1.2.840.114 [id number] Univers 00:00:00 00:00:00 Only Unassigned, KIRK 350.1.13.10 ity of [place] [facility] 4.2.7.2.686 Amandeep [id number] [address] 2019-03-11 2019-03-11 Emergency [facility] [id number] 14:05:54 16:45:00 Sherrill Dennison 350.1.13.10 [place] 4.2.7.2.686 [place] [id number] [facility] 2019-03-11 2019-03-11 Emergency [facility] [id number] Univers 14:05:54 16:45:00 Sherrill Dennison 350.1.13.10 i [facility] [id number] [facility] [phone] [facility] 084 Branch Results Test Description Test Time Test Comments Results Result Comments Source COMP. METABOLIC PANEL (78326) 2023-02-26 22:05:45 Test Item Value Reference Range Interpretation Comme nts NA (test code = 7099627064) 136 mmol/L 135-145 K (test code = 8572754336) 3.7 mmol/L 3.5-5.0 CL (test code = 5434242386) 100 mmol/L 98-108 CO2 TOTAL (test code = 7837377214) 26 mmol/L 23-31 AGAP (test code = 5806323522) 10 2-16 BUN (test code = 6258493357) 11 mg/dL 7-23 GLUCOSE (test code = 3225845646) 123 mg/dL 70-110 H CREATININE (test code = 0.61 mg/dL 0.50-1.04 8257653975) TOTAL BILI (test code = 0.2 mg/dL 0.1-1.4 6612237864) CALCIUM (test code = 0429451944) 9.6 mg/dL 8.6-10.6 T PROTEIN (test code = 2292347488) 7.6 g/dL 6.3-8.2 ALBUMIN (test code = 1547027871) 4.8 g/dL 3.5-5.0 ALK PHOS (test code = 7621206233) 83 U/L 34-122 ALTv (test code = 1742-6) 20 U/L 5-35 AST(SGOT) (test code = 8291474289) 28 U/L 13-40 eGFR (test code = 8871422370) 99.1 mL/min/1.73m2 MADISYN (test code = MADIYSN) Association of Glomerular Filtration Rate (GFR) and [...] tests). Lab Interpretation (test code = Abnormal 40082-9) [facility] WITH [id number] 21:53:23 Test Item Value Reference Range Interpretation Comments WBC (test code = 6.64 See_Comment [Automated 6390-2) message] The sy stem which generated this result transmitted reference range : 4.30 - 11.10 10*3/?L. The reference range was not used to interpret this result as normal/abnormal . RBC (test code = 3.46 See_Comment L [Automated 599-8) message] The sy stem which generated this [...] RDW-SD (test code = 42.1 fL 39.0-49.9 77133-2) RDW-CV (test code = 12.9 % 12.0-15.5 788-0) PLT (test code = 274 See_Comment [Automated 777-3) message] The sy stem which generated this result transmitted reference range : 166 - 358 10*3/ ?L. The reference r aiden was not used to interpret this result as normal/abnormal . MPV (test code = 10.4 fL 9.5-12.9 10178-9) NRBC/100 WBC (test 0.0 See_Comment [Automat ed code = 9563516947) message] The system which generated this result transmitted reference range : 0.0 - 10.0 /100 WBCs. The refer ence range was not u sed to interpret th is result as normal/abnormal . NRBC x10^3 (test code See_Comment [Auto mated = 0015245831) message] The s ystem which generated this result transmitted reference range : 10*3/?L. The reference range was not used to interpret this result as normal/abnormal . GRAN MAT (NEUT) % 52.0 % (test code = 770-8) IMM GRAN % (test code 0.50 % = 9366936039) LYMPH % (test code = 34.2 % 736-9) MONO % (test code = 6.8 % 5905-5) EOS % (test code = 6.2 % 713-8) BASO % (test code = 0.3 % 706-2) GRAN MAT x10^3(ANC) 3.46 10*3/uL 1.88-7.09 (test code = 7639723266) IMM GRAN x10^3 (test 0.03 10*3/uL 0.00-0.06 code = 1838231427) LYMPH x10^3 (test code 2.27 10*3/uL 1.32-3.29 = 731-0) MONO x10^3 (test code 0.45 10*3/uL 0.33-0.92 = 742-7) EOS x10^3 (test code = 0.41 10*3/uL 0.03-0.39 H 711-2) BASO x10^3 (test code 0.01-0.07 = 704-7) Lab Interpretation Abnormal (test code = 94858-8) [facility] MOLECULAR [id number] 16:02:31 Test Item Value Reference Range Interpretation Comments POCT Molecular FluA (test code = Negative Negative 36230-4) POCT Molecular FluB (test code = Negative Negative 02505-1) Lab Interpretation (test code = Normal 54336-9) [facility] SARS-COV-2 ANTIGEN (BINAX NOW)2022-08-24 15:52:00 Test Item Value Reference Range Interpretation Comments POCT SARS-COV-2 ANTIGEN (test Not Detected Not Detected code = 94750-8) On board controls acceptable Yes with C Line (test code = 3574) Lab Interpretation (test code = Normal 41869-3) [facility] METABOLIC PANEL (29411)2021-06-29 23:10:56 Test Item Value Reference Range Interpretation Comments NA (test code = 137 mmol/L 135-145 8875374264) K (test code = 3.9 mmol/L 3.5-5.0 4892703698) CL (test code = 102 mmol/L 98-108 1811178080) CO2 TOTAL (test code = 27 mmol/L 23-31 8532091566) AGAP (test code = 2-16 5992493756) BUN (test code = 10 mg/dL 7-23 1211649749) GLUCOSE (test code = 137 mg/dL 70-110 H 2159838834) CREATININE (test code = 0.69 mg/dL 0.50-1.04 0821154604) TOTAL BILI (test code = 0.5 mg/dL 0.1-1.3 7768791724) CALCIUM (test code = 9.2 mg/dL 8.6-10.6 5022181768) T PROTEIN (test code = 7.7 g/dL 6.3-8.2 6580741088) ALBUMIN (test code = 4.9 g/dL 3.5-5.0 8596282797) ALK PHOS (test code = 73 U/L 34-122 7154538123) ALTv (test code = 15 U/L 5-35 1742-6) AST(SGOT) (test code = 21 U/L 13-40 5688066565) eGFR (test code = mL/min/1.73m2 2378141768) MADISYN (test code = MADISYN) Association of [...] tests). Lab Interpretation Abnormal (test code = 50333-7) [facility] [id number] 22:59:27 Test Item Value Reference Interpretation Comments Range TROPONIN I (test 0.001 ng/mL See_Comment [Automated code = 9344314800) message] The system which generated this result [...] biotin. Lab Interpretation Normal (test code = 31723-2) [facility] 22:49:29 Test Item Value Reference Range Interpretation Comments LIPASE (test code = 7224337483) 57 U/L 0-220 Lab Interpretation (test code = Normal 84161-3) [facility]CB WITH [id number] 22:29:28 Test Item Value Reference Range Interpretation Comments WBC (test code = See_Comment [Automated 5990-2) message] The sy stem which generated this result transmitted reference range : 4.30 - 11.10 10*3/?L. The reference range was not used to interpret this result as normal/abnormal . RBC (test code = See_Comment L [Automated 529-8) message] The sy stem which generated this [...] RDW-SD (test code = 43.4 fL 39.0-49.9 69863-1) RDW-CV (test code = 12.7 % 12.0-15.5 788-0) PLT (test code = See_Comment [Automated 637-3) message] The sy stem which generated this result transmitted reference range : 166 - 358 10*3/ ?L. The reference r aiden was not used to interpret this result as normal/abnormal . MPV (test code = 10.7 fL 9.5-12.9 55284-6) NRBC/100 WBC (test See_Comment [Automat ed code = 5312556396) message] The system which generated this result transmitted reference range : 0.0 - 10.0 /100 WBCs. The refer ence range was not u sed to interpret th is result as normal/abnormal . NRBC x10^3 (test code <0.01 See_Comment [Auto mated = 0905441061) message] The s ystem which generated this result transmitted reference range : 10*3/?L. The reference range was not used to interpret this result as normal/abnormal . GRAN MAT (NEUT) % 68.6 % (test code = 770-8) IMM GRAN % (test code 0.40 % = 8487981735) LYMPH % (test code = 22.9 % 736-9) MONO % (test code = 6.3 % 5905-5) EOS % (test code = 1.6 % 713-8) BASO % (test code = 0.2 % 706-2) GRAN MAT x10^3(ANC) 6.89 10*3/uL 1.88-7.09 (test code = 8942033817) IMM GRAN x10^3 (test 0.04 10*3/uL 0.00-0.06 code = 9033223016) LYMPH x10^3 (test code 2.30 10*3/uL 1.32-3.29 = 731-0) MONO x10^3 (test code 0.63 10*3/uL 0.33-0.92 = 742-7) EOS x10^3 (test code = 0.16 10*3/uL 0.03-0.39 711-2) BASO x10^3 (test code <0.03 0.01-0.07 = 704-7) Lab Interpretation Abnormal (test code = 72132-0) [facility] (AUTOMATED)2021-05-20 17:33:00 Test Item Value Reference Range Interpretation Comments POCT GLU (test code = 6117646439) 80 mg/dL 70-110 Lab Interpretation (test code = Normal 13485-7) [facility] HospitalTROPONIN [id number] 12:36:17 Test Item Value Reference Interpretation Comments Range TROPONIN I (test 0.002 ng/mL See_Comment [Automated code = 7995451118) message] The system which generated this result [...] biotin. Lab Interpretation Normal (test code = 18177-2) [facility] Metabolic Panel (NA, K, CL, CO2, GLUCOSE, BUN, CREATININE, CA)2021-05-20 12:31:20 Test Item Value Reference Range Interpretation Comments NA (test code = 138 mmol/L 135-145 7927936409) K (test code = 4.2 mmol/L 3.5-5.0 4217479841) CL (test code = 106 mmol/L 98-108 4027563158) CO2 TOTAL (test code = 25 mmol/L 23-31 5060261299) AGAP (test code = 2-16 9125238129) BUN (test code = 12 mg/dL 7-23 5052589312) GLUCOSE (test code = 146 mg/dL 70-110 H 2929548580) CREATININE (test code = 0.62 mg/dL 0.50-1.04 3657943507) CALCIUM (test code = 10.0 mg/dL 8.6-10.6 3539194657) eGFR (test code = mL/min/1.73m2 6967814598) MADISYN (test code = MADISYN) Association of [...] tests). Lab Interpretation Abnormal (test code = 39101-4) [facility] with [id number] 11:49:32 Test Item Value Reference Range Interpretation Comments WBC (test code = See_Comment [Automated 2242-2) message] The sy stem which generated this result transmitted reference range : 4.30 - 11.10 10*3/?L. The reference range was not used to interpret this result as normal/abnormal . RBC (test code = See_Comment L [Automated 524-8) message] The sy stem which generated this [...] RDW-SD (test code = 40.3 fL 39.0-49.9 23476-2) RDW-CV (test code = 11.9 % 12.0-15.5 L 788-0) PLT (test code = See_Comment [Automated 777-3) message] The sy stem which generated this result transmitted reference range : 166 - 358 10*3/ ?L. The reference r aiden was not used to interpret this result as normal/abnormal . MPV (test code = 11.3 fL 9.5-12.9 63705-0) NRBC/100 WBC (test See_Comment [Automat ed code = 6700572390) message] The system which generated this result transmitted reference range : 0.0 - 10.0 /100 WBCs. The refer ence range was not u sed to interpret th is result as normal/abnormal . NRBC x10^3 (test code <0.01 See_Comment [Auto mated = 5183386777) message] The s ystem which generated this result transmitted reference range : 10*3/?L. The reference range was not used to interpret this result as normal/abnormal . GRAN MAT (NEUT) % 59.9 % (test code = 770-8) IMM GRAN % (test code 0.50 % = 9531202657) LYMPH % (test code = 30.0 % 736-9) MONO % (test code = 6.4 % 5905-5) EOS % (test code = 2.9 % 713-8) BASO % (test code = 0.3 % 706-2) GRAN MAT x10^3(ANC) 3.72 10*3/uL 1.88-7.09 (test code = 0246550604) IMM GRAN x10^3 (test 0.03 10*3/uL 0.00-0.06 code = 0701297683) LYMPH x10^3 (test code 1.86 10*3/uL 1.32-3.29 = 731-0) MONO x10^3 (test code 0.40 10*3/uL 0.33-0.92 = 742-7) EOS x10^3 (test code = 0.18 10*3/uL 0.03-0.39 711-2) BASO x10^3 (test code <0.03 0.01-0.07 = 704-7) Lab Interpretation Abnormal (test code = 70086-4) [facility] [id number] 02:24:28 Test Item Value Reference Interpretation Comments Range TROPONIN I (test 0.003 ng/mL See_Comment [Automated code = 4211424324) message] The system which generated this result [...] biotin. Lab Interpretation Normal (test code = 38711-3) [facility] Test Item Value Reference Range Interpretation Comments MAGNESIUM (test code = 0352620288) 1.9 mg/dL 1.7-2.4 Lab Interpretation (test code = Normal 93810-0) [facility] [id number] 00:20:03 Test Item Value Reference Interpretation Comments Range TROPONIN I (test 0.002 ng/mL See_Comment [Automated code = 2833788996) message] The system which generated this result [...] biotin. Lab Interpretation Normal (test code = 01004-7) [facility]. METABOLIC PANEL (11748)2021-05-20 00:09:00 Test Item Value Reference Range Interpretation Comments NA (test code = 139 mmol/L 135-145 9541107922) K (test code = 3.9 mmol/L 3.5-5.0 3195547411) CL (test code = 101 mmol/L 98-108 0353480995) CO2 TOTAL (test code = 28 mmol/L 23-31 4900341130) AGAP (test code = 2-16 0761612989) BUN (test code = 13 mg/dL 7-23 1063614574) GLUCOSE (test code = 143 mg/dL 70-110 H 4376736874) CREATININE (test code = 0.68 mg/dL 0.50-1.04 4477426012) TOTAL BILI (test code = 0.4 mg/dL 0.1-1.0 6703675478) CALCIUM (test code = 10.4 mg/dL 8.6-10.6 7267719325) T PROTEIN (test code = 8.0 g/dL 6.3-8.2 3423698044) ALBUMIN (test code = 5.0 g/dL 3.5-5.0 3446512637) ALK PHOS (test code = 93 U/L 34-122 1738357011) ALTv (test code = 21 U/L 5-35 1742-6) AST(SGOT) (test code = 31 U/L 13-40 2530108785) eGFR (test code = mL/min/1.73m2 5878037410) MADISYN (test code = MADISYN) Association of [...] tests). Lab Interpretation Abnormal (test code = 16636-9) [facility] 00:08:20 Test Item Value Reference Range Interpretation Comments LIPASE (test code = 7636173055) 66 U/L 0-220 Lab Interpretation (test code = Normal 81278-0) [facility] HospitalaPTT2021-11-14 00:06:19 Test Item Value Reference Range [...] seconds. Lab Interpretation Normal (test code = 22973-0) [facility] HospitalPROTHROMBIN TIME / [id number] 00:04:19 Test Item Value Reference Range Interpretation [...] tions. Lab Interpretation (test Normal code = 87557-0) [facility] WITH [id number] 23:55:39 Test Item Value Reference Range Interpretation [...] RDW-SD (test code = 40.4 fL 39.0-49.9 06391-7) RDW-CV (test code = 11.9 % 12.0-15.5 L 788-0) PLT (test code = See_Comment [Automated 777-3) message] The sy stem which generated this result transmitted reference range : 166 - 358 10*3/ ?L. The reference r aiden was not used to interpret this result as normal/abnormal . MPV (test code = 11.0 fL 9.5-12.9 81762-4) NRBC/100 WBC (test See_Comment [Automat ed code = 7584854168) message] The system which generated this result transmitted reference range : 0.0 - 10.0 /100 WBCs. The refer ence range was not u sed to interpret th is result as normal/abnormal . NRBC x10^3 (test code <0.01 See_Comment [Auto mated = 1086790562) message] The s ystem which generated this result transmitted reference range : 10*3/?L. The reference range was not used to interpret this result as normal/abnormal . GRAN MAT (NEUT) % 53.4 % (test code = 770-8) IMM GRAN % (test code 0.60 % = 6584525271) LYMPH % (test code = 36.2 % 736-9) MONO % (test code = 6.4 % 5905-5) EOS % (test code = 3.3 % 713-8) BASO % (test code = 0.1 % 706-2) GRAN MAT x10^3(ANC) 3.58 10*3/uL 1.88-7.09 (test code = 6027260759) IMM GRAN x10^3 (test 0.04 10*3/uL 0.00-0.06 code = 1687153223) LYMPH x10^3 (test code 2.43 10*3/uL 1.32-3.29 = 731-0) MONO x10^3 (test code 0.43 10*3/uL 0.33-0.92 = 742-7) EOS x10^3 (test code = 0.22 10*3/uL 0.03-0.39 711-2) BASO x10^3 (test code <0.03 0.01-0.07 = 704-7) Lab Interpretation Abnormal (test code = 64452-7) [facility] HospitalUrinalysis2021-03-11 03:27:11 Test Item Value Reference Range Interpretation Comments APPEARANCE (test code = Clear Clear 8807388898) COLOR (test code = Straw Yellow A 6888029605) PH (test code = 4.8-8.0 0937799309) SP GRAVITY (test code = 1.003-1.030 4042513166) GLU U QUAL (test code = 500 mg/dL Normal A 3796360249) BLOOD (test code = Negative Negative 4890810567) KETONES (test code = Negative Negative 0624338577) PROTEIN (test code = Negative Negative 2887-8) UROBILIN (test code = Normal Normal 8836958898) BILIRUBIN (test code = Negative Negative 4036596073) NITRITE (test code = Negative Negative 1336538525) LEUK KEVEN (test code = 25/uL Negative A 1217359532) RBC/HPF (test code = See_Comment [Autom ated message] 4423252673) The system [employer] generated this result transmit zoila reference range : 0 - 3 HPF. The refe rence range was not u sed to interpret th is result as normal/abnormal . WBC/HPF (test code = See_Comment [Autom ated message] 2896832275) The system [employer] generated this result transmit zoila reference range : 0 - 5 HPF. The refe rence range was not u sed to interpret th is result as normal/abnormal . BACTERIA (test code = Negative Negative 7006216174) MUCOUS (test code = Slight Negative LPF A 6776129691) SQ EPITH (test code = HPF 2827822402) Lab Interpretation (test Abnormal code = 11790-3) [facility] [id number] 03:00:28 Test Item Value Reference Range Interpretation Comments TROPONIN I (test <0.012 See_Comment [Automated code = 9820049211) message] The system which generated this result [...] ? Lab Interpretation Normal (test code = 05318-6) [facility] HospitalN-TERMINAL WIA-[id number] 02:57:10 Test Item Value Reference Range Interpretation Comments NT-proBNP (test code 25 pg/mL See_Comment [Autom ated = 2827830341) message] The system which generated this result transmitted reference range : <=125. The reference range was not used to interpret this result as normal/abnormal . MADISYN (test code = MADISYN) Biotin has been reported to cause a negative bias, interpret results relative to patient's use of biotin. Lab Interpretation Normal (test code = 66590-1) [facility] HospitalBasi Metabolic Panel (NA, K, CL, CO2, GLUCOSE, BUN, CREATININE, CA)2020-09-14 02:48:49 Test Item Value Reference Range Interpretation Comments NA (test code = 135 mmol/L 135-145 8882981002) K (test code = 3.6 mmol/L 3.5-5.0 9135252732) CL (test code = 101 mmol/L 98-108 5635351449) CO2 TOTAL (test code = 23 mmol/L 23-31 7643295765) AGAP (test code = 2-16 5038372398) BUN (test code = 10 mg/dL 7-23 5333300825) GLUCOSE (test code = 296 mg/dL 70-110 H 1165592081) CREATININE (test code = 0.62 mg/dL 0.50-1.04 3649399000) CALCIUM (test code = 9.7 mg/dL 8.6-10.6 9602422376) eGFR Calculation mL/min/1.73m2 (Non-) (test code = 6020555923) eGFR Calculation mL/min/1.73m2 () (test code = 1139534981) MADISYN (test code = MADISYN) Association of [...] tests). Lab Interpretation Abnormal (test code = 57728-2) [facility] HospitalHepatic Function Panel (ALB, T.PRO, BILI T, BU/BC, ALT, AST, ALK PHOS)2020-09-14 02:48:48 Test Item Value Reference Range Interpretation Comments TOTAL BILI (test code = 7730710145) 0.4 mg/dL 0.1-1.1 BILI UNCON (test code = 3398285722) 0.4 mg/dL 0.1-1.1 BILI CONJ (test code = 9769443235) 0.0 mg/dL 0.0-0.3 T PROTEIN (test code = 2544925002) 7.7 g/dL 6.3-8.2 ALBUMIN (test code = 2987181640) 5.0 g/dL 3.5-5.0 ALK PHOS (test code = 3206270794) 78 U/L 34-122 ALTv (test code = 1742-6) 19 U/L 5-35 AST(SGOT) (test code = 8819352666) 25 U/L 13-40 Lab Interpretation (test code = Normal 19104-3) [facility] HospitalLipase [id number] 02:48:48 Test Item Value Reference Range Interpretation Comments LIPASE (test code = 1913781919) 38 U/L 0-220 Lab Interpretation (test code = Normal 73153-0) [facility] HospitalCOVID-19 (ID NOW RAPID TESTING)2020-09-14 02:36:29 Test Item Value Reference Range Interpretation Comments SARS-CoV-2 Rapid ID NOW Positive Not Detected A (test code = 39101-6) MADISYN (test code = MADISYN) ID NOW COVID-19 Assay is an isothermal nucleic acid amplification test intended for the qualitative detection of nucleic acid from SARS-CoV-2 viral RNA in nasopharyngeal (INVESTMENT UNDERWRITER) specimens. It is used under Emergency Use [...] indicated. Lab Interpretation Abnormal (test code = 44978-9) [facility] HospitalCBC with [id number] 02:30:06 Test Item Value Reference Range Interpretation Comments WBC (test code = See_Comment [Automated message] 6690-2) The system [employer] generated this result transmitted ref erence range: 4.30 - 1 1.10 10*3/?L. The re ference range was not u sed to interpret this result as normal/abnor mal. RBC (test code = See_Comment [Automated message] 789-8) The system [employer] generated this result transmitted ref erence range: [...] RDW-SD (test code 41.8 fL 39.0-49.9 = 24731-5) RDW-CV (test code 12.8 % 12.0-15.5 = 788-0) PLT (test code = See_Comment [Automated message] 777-3) The system whic h generated this result transmitted ref erence range: 166 - 35 8 10*3/?L. The re ference range was not u sed to interpret this result as normal/abnor mal. MPV (test code = 11.2 fL 9.5-12.9 90448-9) NRBC/100 WBC (test See_Comment [Automat ed message] code = 2926484181) The syste m which generated this result transmitted ref erence range: 0.0 - 10 .0 /100 WBCs. The refer ence range was not u sed to interpret this result as normal/abnor mal. NRBC x10^3 (test <0.01 See_Comment [Automated message] code = 5940322797) The syste m which generated this result transmitted ref erence range: 10*3/?L. The reference range was not used to interpr et this result as normal/abnormal . GRAN MAT (NEUT) % 54.0 % (test code = 770-8) IMM GRAN % (test 0.70 % code = 9377107216) LYMPH % (test code 36.2 % = 736-9) MONO % (test code 6.0 % = 5905-5) EOS % (test code = 2.8 % 713-8) BASO % (test code 0.3 % = 706-2) GRAN MAT 3.13 10*3/uL 1.88-7.09 x10^3(ANC) (test code = 3395198629) IMM GRAN x10^3 0.04 10*3/uL 0.00-0.06 (test code = 6699642837) LYMPH x10^3 (test 2.10 10*3/uL 1.32-3.29 code = 731-0) MONO x10^3 (test 0.35 10*3/uL 0.33-0.92 code = 742-7) EOS x10^3 (test 0.16 10*3/uL 0.03-0.39 code = 711-2) BASO x10^3 (test <0.03 0.01-0.07 code = 704-7) [facility] WITH [id number] 01:35:00 Test Item Value Reference Range Interpretation Comments WBC (test code = See_Comment [Automated 1330-2) message] The sy stem which generated this result transmitted reference range : 4.30 - 11.10 10*3/?L. The reference range was not used to interpret this result as normal/abnormal . RBC (test code = See_Comment [Automated 359-8) message] The sy stem which generated this [...] RDW-SD (test code = 40.8 fL 39-49.9 94530-7) RDW-CV (test code = 12.5 % 12-15.5 788-0) PLT (test code = See_Comment [Automated 777-3) message] The sy stem which generated this result transmitted reference range : 166 - 358 10*3/ ?L. The reference r aiden was not used to interpret this result as normal/abnormal . MPV (test code = 11.0 fL 9.5-12.9 98924-1) IPF % (test code = 5.7 % 1.3-7.7 Platelet count 2725552790) measured by fluorescence method. NRBC/100 WBC (test See_Comment [Automat ed code = 0621673154) message] The system which generated this result transmitted reference range : 0.0 - 10.0 /100 WBCs. The refer ence range was not u sed to interpret th is result as normal/abnormal . NRBC x10^3 (test code <0.01 See_Comment [Auto mated = 1759586665) message] The s ystem which generated this result transmitted reference range : 10*3/?L. The reference range was not used to interpret this result as normal/abnormal . GRAN MAT (NEUT) % 60.2 % (test code = 770-8) IMM GRAN % (test code 1.60 % = 4555360541) LYMPH % (test code = 29.4 % 736-9) MONO % (test code = 6.2 % 5905-5) EOS % (test code = 2.3 % 713-8) BASO % (test code = 0.3 % 706-2) GRAN MAT x10^3(ANC) 5.31 10*3/uL 1.88-7.09 (test code = 0230414518) IMM GRAN x10^3 (test 0.14 10*3/uL 0-0.06 H code = 6796427957) LYMPH x10^3 (test code 2.59 10*3/uL 1.32-3.29 = 731-0) MONO x10^3 (test code 0.55 10*3/uL 0.33-0.92 = 742-7) EOS x10^3 (test code = 0.20 10*3/uL 0.03-0.39 711-2) BASO x10^3 (test code 0.03 10*3/uL 0.01-0.07 = 704-7) Lab Interpretation Abnormal (test code = 39767-2) [facility] HospitalAD,CLC OR L[facility] ONLY - INFLUENZA A & B DIRECT [id number] 01:26:00 Test Item Value Reference Range Interpretation Comments Influenza A (test code = 57398-5) Negative Negative Influenza B (test code = 16697-7) Negative Negative Lab Interpretation (test code = Normal 79165-3) [facility] Metabolic Panel (NA, K, CL, CO2, GLUCOSE, BUN, CREATININE, CA)2019-07-28 01:21:00 Test Item Value Reference Range Interpretation Comments NA (test code = 137 mmol/L 135-145 3986112184) K (test code = 3.8 mmol/L 3.5-5 2744165162) CL (test code = 100 mmol/L 98-108 8817473891) CO2 TOTAL (test code = 24 mmol/L 23-31 3432043759) AGAP (test code = 2-16 4192722770) BUN (test code = 13 mg/dL 7-23 6920721753) GLUCOSE (test code = 245 mg/dL 70-110 H 2532451083) CREATININE (test code = 0.49 mg/dL 0.5-1.04 L 3209253466) CALCIUM (test code = 9.8 mg/dL 8.6-10.6 4887726438) eGFR Calculation mL/min/1.73m2 (Non-) (test code = 2539255048) eGFR Calculation mL/min/1.73m2 () (test code = 4944715793) MADISYN (test code = MADISYN) Association of [...] tests). Lab Interpretation Abnormal (test code = 07384-4) [facility] HospitalHep[facility] Function [facility] (ALB, T.PRO, BILI T, BU/BC, ALT, AST, ALK PHOS)2019-07-28 01:21:00 Test Item Value Reference Range Interpretation Comments TOTAL BILI (test code = 6830039268) 0.3 mg/dL 0.1-1.1 BILI UNCON (test code = 1008540824) 0.1 mg/dL 0.1-1.1 BILI CONJ (test code = 5553429195) 0.0 mg/dL 0-0.3 T PROTEIN (test code = 2787626016) 8.2 g/dL 6.3-8.2 ALBUMIN (test code = 8098089210) 5.0 g/dL 3.5-5 ALK PHOS (test code = 2368892727) 121 U/L 34-122 ALTv (test code = 1742-6) 33 U/L 5-35 AST(SGOT) (test code = 3088877602) 30 U/L 13-40 Lab Interpretation (test code = Normal 05993-3) [facility] HospitalRAPID STREP SCREEN FOR GROUP [id number] 01:19:00 Test Item Value Reference Range Interpretation Comments Streptococcus pyogenes (group A) Negative Negative antigen (test code = 18139-7) Lab Interpretation (test code = Normal 26825-3) [facility] 2 [id number] 00:53:20Impression: No acute cardiopulmonary changes. Small sized [...] unremarkable. Smallsized hiatal hernia is present. [facility], Radiant Results Inft User [...] reviewed this study and agree withthe above report.[facility] (NA, K, CL, CO2, GLUCOSE, BUN, CREATININE, CA)2019-03-11 20:52:00 Test Item Value Reference Range Interpretation Comments NA (test code = 141 mmol/L 135-145 [id number]) K (test code = 3.6 mmol/L 3.5-5 8650354366) CL (test code = 104 mmol/L 98-108 8298610632) CO2 TOTAL (test code = 24 mmol/L 23-31 0507591141) AGAP (test code = 2-16 4062997119) BUN (test code = 19 mg/dL 7-23 3625379230) GLUCOSE (test code = 161 mg/dL 70-110 H [id number]) CREATININE (test code = 0.51 mg/dL 0.5-1.04 7704283871) CALCIUM (test code = 9.4 mg/dL 8.6-10.6 [id number]) eGFR Calculation mL/min/1.73m2 (Non-) (test code = 3758008325) eGFR Calculation mL/min/1.73m2 () (test code = 9760546852) MADISYN (test code = MADISYN) Association of [...] tests). Lab Interpretation Abnormal (test code = 30049-8) [facility] (ALB, T.PRO, BILI T, BU/BC, ALT, AST, ALK PHOS)2019-03-11 20:52:00 Test Item Value Reference Range Interpretation Comments TOTAL BILI (test code = 4757137339) 0.6 mg/dL 0.1-1.1 BILI UNCON (test code = 9251840542) 0.5 mg/dL 0.1-1.1 BILI CONJ (test code = 4834464526) 0.0 mg/dL 0-0.3 T PROTEIN (test code = 3758589365) 7.7 g/dL 6.3-8.2 ALBUMIN (test code = 8331825734) 4.9 g/dL 3.5-5 ALK PHOS (test code = 5579152496) 61 U/L 34-122 ALT(SGPT) (test code = 7558955516) 26 U/L 9-51 AST(SGOT) (test code = 1105300591) 28 U/L 13-40 Lab Interpretation (test code = Normal 54768-3) [facility] HospitalLipase [id number] 20:52:00 Test Item Value Reference Range Interpretation Comments LIPASE (test code = 5977143474) 22 U/L 0-220 Lab Interpretation (test code = Normal 41203-4) [facility]aPTT2019-09-05 20:40:00 Test Item Value Reference Range [...] seconds. Lab Interpretation Abnormal (test code = 36676-2) [facility] HospitalProthrombin Time (PT) / [id number] 20:38:00 Test Item Value Reference Range Interpretation [...] tions. Lab Interpretation (test Normal code = 62376-6) [facility] HospitalCBC WITH [id number] 20:33:00 Test Item Value Reference Range Interpretation Comments WBC (test code = See_Comment [Automated 7390-2) message] The sy stem which generated this result transmitted reference range : 4.30 - 11.10 10*3/?L. The reference range was not used to interpret this result as normal/abnormal . RBC (test code = See_Comment [Automated 499-8) message] The sy stem which generated this [...] RDW-SD (test code = 44.3 fL 39-49.9 91378-7) RDW-CV (test code = 12.9 % 12-15.5 788-0) PLT (test code = See_Comment [Automated 777-3) message] The sy stem which generated this result transmitted reference range : 166 - 358 10*3/ ?L. The reference r aiden was not used to interpret this result as normal/abnormal . MPV (test code = 10.9 fL 9.5-12.9 44771-4) NRBC/100 WBC (test See_Comment [Automat ed code = 1766712928) message] The system which generated this result transmitted reference range : 0.0 - 10.0 /100 WBCs. The refer ence range was not u sed to interpret th is result as normal/abnormal . NRBC x10^3 (test code <0.01 See_Comment [Auto mated = 9402194467) message] The s ystem which generated this result transmitted reference range : 10*3/?L. The reference range was not used to interpret this result as normal/abnormal . GRAN MAT (NEUT) % 86.3 % (test code = 770-8) IMM GRAN % (test code 0.50 % = 9657834945) LYMPH % (test code = 8.8 % 736-9) MONO % (test code = 4.0 % 5905-5) EOS % (test code = 0.2 % 713-8) BASO % (test code = 0.2 % 706-2) GRAN MAT x10^3(ANC) 8.24 10*3/uL 1.88-7.09 H (test code = 7563726354) IMM GRAN x10^3 (test 0.05 10*3/uL 0-0.06 code = 6073705559) LYMPH x10^3 (test code 0.84 10*3/uL 1.32-3.29 L = 731-0) MONO x10^3 (test code 0.38 10*3/uL 0.33-0.92 = 742-7) EOS x10^3 (test code = <0.03 0.03-0.39 L 711-2) BASO x10^3 (test code <0.03 0.01-0.07 = 704-7) Lab Interpretation Abnormal (test code = 16697-6) [facility]"
--- NOTE | 2023-05-25 13:10 | ER ---
Nurse's Notes [facility] Name: Dolores Pérez Age: 63 yrs Sex: Female : 1960 Arrival Date: 05/25/2023 Time: 11:55 Bed IW3 Private MD: Diagnosis: Pain in left foot Presentation: 05/25 12:53 Chief complaint: Patient states: he has been having left foot pain since July 2022. ap3 patient reports that she was evaluated by her PCP last week, but has not received the results of the X-Rays from that visit. patient currently rates her pain to be an 8/10 on the pain scale. Coronavirus screen: At this time, the client does not indicate any symptoms associated with coronavirus-19. Ebola Screen: No symptoms or risks identified at this time. Initial Sepsis Screen: Does the patient meet any 2 criteria? No. Patient's initial sepsis screen is negative. Does the patient have a suspected source of infection? No. Patient's initial sepsis screen is negative. Risk Assessment: Do you want to hurt yourself or someone else? Patient reports no desire to harm self or others. Onset of symptoms was July 2012. 12:53 Method Of Arrival: Wheelchair ap3 12:53 Acuity: AARON 4 ap3 Triage Assessment: 12:56 General: Appears in no apparent distress. Behavior is cooperative. Pain: Complains of ap3 pain in left foot Pain currently is 8 out of 10 on a pain scale. Pain began July 2022. Neuro: Level of Consciousness is awake, alert, obeys commands, Oriented to person, place, time, situation, Appropriate for age. Cardiovascular: Patient's skin is warm and dry. Respiratory: Airway is patent Respiratory effort is even, unlabored, Respiratory pattern is regular, symmetrical. Musculoskeletal: Reports pain in left foot. Historical: - Allergies: 12:55 NSAIDS; ap3 12:55 peanuts; ap3 12:55 Prednisone; ap3 12:55 sesame seed; ap3 12:55 Sulfa (Sulfonamide Antibiotics); ap3 - PMHx: 12:55 Anxiety; Asthma; Asthma; COPD; COPD; depressive disorder; diabetes mellitus; High ap3 Cholesterol; Hypertension; Hypothyroidism; Transient cerebral ischemia; - Immunization history:: Adult Immunizations up to date. - Social history:: Smoking status: Patient denies any tobacco usage or history of. Screenin:56 Abuse screen: Denies threats or abuse. Nutritional screening: No deficits noted. ap3 Tuberculosis screening: No symptoms or risk factors identified. Vital Signs: 12:53 BP 156 / 85; Pulse 64; Resp 17; Temp 98.4; Pulse Ox 100% ; Weight 54.43 kg; Pain 8/10; ap3 12:53 Pain Scale: Adult ap3 ED Course: 11:56 Patient arrived in ED. rg4 12:12 [facility] Harrison [facility] snw 12:12 eFng Tian MD is Attending Physician. snw 12:55 Triage completed. ap3 12:57 Arm band placed on right wrist. ap3 Administered Medications: 13:46 Not Given (Physician Discretion): [id number] mg IM once ap3 13:58 Drug: traMADol PO 50 mg PO once Route: PO; ap3 Outcome: 13:09 Discharge ordered by . snw 13:58 Patient left the ED. ap3 Signatures: Esperanza Harrison FNP-C FNP-Roselyn [place] rg4 Donna Lawrence, RN RN ap3
--- NOTE | 2023-05-25 13:10 | EDPHYS ---
Physician Documentation [facility] Name: Dolores Pérez Age: 63 yrs Sex: Female : 1960 Arrival Date: 05/25/2023 Time: 11:55 Bed IW3 Private MD: ED Physician Feng Tian HPI: 05/25 13:08 This 63 yrs old Female presents to ER via Wheelchair with complaints of Foot Pain. snw 13:08 The patient presents with pain, that is chronic. The complaints affect the lateral snw aspect of left foot and medial aspect of left foot. Context: resulted from a chronic condition, the patient can partially bear weight. Onset: The symptoms/episode began/occurred gradually, 10 month(s) ago, and became persistent. Severity of symptoms: At their worst the symptoms were moderate. The patient has experienced similar episodes in the past. The patient has been recently seen by a physician: as noted. Historical: - Allergies: 12:55 NSAIDS; ap3 12:55 peanuts; ap3 12:55 Prednisone; ap3 12:55 sesame seed; ap3 12:55 Sulfa (Sulfonamide Antibiotics); ap3 - PMHx: 12:55 Anxiety; Asthma; Asthma; COPD; COPD; depressive disorder; diabetes mellitus; High ap3 Cholesterol; Hypertension; Hypothyroidism; Transient cerebral ischemia; - Immunization history:: Adult Immunizations up to date. - Social history:: Smoking status: Patient denies any tobacco usage or history of. ROS: 13:04 Constitutional: Negative for fever, chills, and weight loss, Eyes: Negative for injury, snw pain, redness, and discharge, ENT: Negative for injury, pain, and discharge, Neck: Negative for injury, pain, and swelling, Cardiovascular: Negative for chest pain, palpitations, and edema, Respiratory: Negative for shortness of breath, cough, wheezing, and pleuritic chest pain, Abdomen/GI: Negative for abdominal pain, nausea, vomiting, diarrhea, and constipation, Back: Negative for injury and pain, : Negative for injury, bleeding, discharge, and swelling, Skin: Negative for injury, rash, and discoloration, Neuro: Negative for headache, weakness, numbness, tingling, and seizure, Psych: Negative for depression, anxiety, suicide ideation, homicidal ideation, and hallucinations, 13:04 MS/extremity: Positive for pain, of the left foot, x [address] Lawrence last week, had x-rays Friday. Dx bunion and hallux valgus. No follow up plan yet, Exam: 13:03 Constitutional: This is a well developed, well nourished patient who is awake, alert, snw and in no acute distress. Head/Face: Normocephalic, atraumatic. Eyes: Pupils equal round and reactive to light, extra-ocular motions intact. Lids and lashes normal. Conjunctiva and sclera are non-icteric and not injected. Cornea within normal limits. Periorbital areas with no swelling, redness, or edema. ENT: Nares patent. No nasal discharge, no septal abnormalities noted. Tympanic membranes are normal and external auditory canals are clear. Oropharynx with no redness, swelling, or masses, exudates, or evidence of obstruction, uvula midline. Mucous membranes moist. Neck: Trachea midline, no thyromegaly or masses palpated, and no cervical lymphadenopathy. Supple, full range of motion without nuchal rigidity, or vertebral point tenderness. No Meningismus. Chest/axilla: Normal chest wall appearance and motion. Nontender with no deformity. No lesions are appreciated. Cardiovascular: Regular rate and rhythm with a normal S1 and S2. No gallops, murmurs, or rubs. Normal PMI, no JVD. No pulse deficits. Respiratory: Lungs have equal breath sounds bilaterally, clear to auscultation and percussion. No rales, rhonchi or wheezes noted. No increased work of breathing, no retractions or nasal flaring. Abdomen/GI: Soft, non-tender, with normal bowel sounds. No distension or tympany. No guarding or rebound. No evidence of tenderness throughout. Back: No spinal tenderness. No costovertebral tenderness. Full range of motion. Skin: Warm, dry with normal turgor. Normal color with no rashes, no lesions, and no evidence of cellulitis. Neuro: Awake and alert, GCS 15, oriented to person, place, time, and situation. Cranial nerves II-XII grossly intact. Motor strength 5/5 in all extremities. Sensory grossly intact. Cerebellar exam normal. Normal gait. Psych: Awake, alert, with orientation to person, place and time. Behavior, mood, and affect are within normal limits. 13:03 Musculoskeletal/extremity: Extremities: grossly normal except: noted in the left foot: no pulse deficit, normal color, Circulation is intact in all extremities. Sensation intact. Vital Signs: 12:53 BP 156 / 85; Pulse 64; Resp 17; Temp 98.4; Pulse Ox 100% ; Weight 54.43 kg; Pain 8/10; ap3 12:53 Pain Scale: Adult ap3 MDM: 12:58 Patient medically screened. [facility] 13:07 Differential diagnosis: closed fracture, tendonitis, arthritis, peripheral neuropathy. snw Data reviewed: vital signs, nurses notes. I considered the following discharge prescriptions or medication management in the emergency department Medications were administered in the Emergency Department. See MAR. Counseling: I had a detailed discussion with the patient and/or guardian regarding the historical points, exam findings, and any diagnostic results supporting the discharge/admit diagnosis, the presence of at least one elevated blood pressure reading (>120/80) during this emergency department visit, the need for outpatient follow up, for definitive care, to return to the emergency department if symptoms worsen or persist or if there are any questions or concerns that arise at home. Special discussion: I have referred the patient to see his PCP for further evaluation of high blood pressure. Based on the history and exam findings, there is no indication for further emergent testing or inpatient evaluation. I discussed with the patient/guardian the need to see the deaf/hard of hearing specialist for further evaluation of the symptoms. I discussed with the patient/guardian the need to see the primary care provider for further evaluation of the symptoms. 13:08 ED course: Pt arrives to triage on crutches. snw Administered Medications: 13:46 Not Given (Physician Discretion): mg IM once ap3 13:58 Drug: traMADol PO 50 mg PO once Route: PO; ap3 Disposition Summary: 05/25/23 13:09 Discharge Ordered Notes: Location: Home snw Condition: Stable snw Diagnosis - Pain in left foot snw Followup: snw - With: Emergency Department - When: As needed - Reason: Worsening of condition Followup: snw - With: Private Physician - When: 2 - 3 days - Reason: Recheck today's complaints, Continuance of care, Re-evaluation by your physician Discharge Instructions: - Discharge Summary Sheet snw - Musculoskeletal Pain snw - How to Use Cold Therapy snw - Heat Therapy, [id number]-[id number] snw - Foot Pain snw Forms: - Medication Reconciliation Form snw - Thank You Letter snw - Antibiotic Education snw - Prescription Opioid Use snw - Patient Portal Instructions snw - Leadership Thank You Letter snw Prescriptions: - Tramadol 50 mg Oral Tablet - take 1 tablet ORAL route every 8 hours as needed; 12 tablet; Refills: 0, snw Product Selection Permitted Signatures: Feng Tian MD MD cha Waters, Shelly, CLIENT SOLUTIONS DIRECTOR-C CLIENT SOLUTIONS DIRECTOR-Csnw Donna Lawrence, RN RN ap3
[2023-05-25 14:04] VITALS: BP 156/85; TEMP 98.4; O2SAT 100
[2023-05-25] MEDS ORDERED: TRAMADOL HCL 50 MG TAB ONE (14:07)
== END 2023-05-25 13:58 | disposition home or self-care (01) ==
LOC: ER 11:55
DX: M79.672 Pain in left foot (principal); E11.9 Type 2 diabetes mellitus without complications; I10 Essential (primary) hypertension; J44.9 Chronic obstructive pulmonary disease, unspecified; J45.909 Unspecified asthma, uncomplicated; E03.9 Hypothyroidism, unspecified; Z88.8 Allergy status to other drugs, medicaments and biological substances; Z88.2 Allergy status to sulfonamides; Z91.010 Allergy to peanuts
CPT/HCPCS: 99282

== ENCOUNTER 2023-06-07 15:03 | Emergency (ER) | payer OTHER ==
--- OUTSIDE RECORDS SUMMARY | 2023-06-07 15:09 | XMS REPORT | Continuity of Care Document ---
:1960 Author Organization [facility] t Address [address] [place] [address] Care Team Providers Name Role Phone PAULINA DUNHAM Primary Care Physician Unavailable Neida DUGGAN Attending Clinician Unavailable Neida Jiménez Attending Clinician Susan Rodriguez Attending Clinician Unknown, Attending Attending Clinician Unavailable SUSAN LEE Attending Clinician Unavailable Doctor Unassigned, [place] Attending Clinician Unavailable Only, Ang Db Test Attending Clinician Unavailable Monik Charles MD Attending Clinician MONIK CHARLES Attending Clinician Unavailable ALEX OCONNELL Attending Clinician Unavailable OlneyAlex Alarcon Attending Clinician SHERRILL CONNOR Attending Clinician [...] Effective Date Expiration Date Teodora FALK II [id number] 2016 00:00:00 Problems Condition Condition Condition Status [...] ity of 00:00: [place] 00 Medical Branch [place] [employer] Active Anaphylaxis Uni vers ty to [...] to 4-10 ity of mide adverse 00:00: [place] Antibiot reaction 00 Medica l ics) s Branch Social History Social Habit Start Date Stop Date Quantity Comments Source Gender identity [facility]it y of [facility] of Social 2023-02-26 2023-02-26 Univers ity of function 00:00:00 00:00:00 [facility] Exposure to 2022-08-14 2022-08-24 Not sure [facility] SARS-CoV-2 (event) 00:00:00 09:35:00 [facility] Tobacco use and 2022-08-24 2022-08-24 Smokeless Universit y of exposure 00:00:00 00:00:00 tobacco non-user [facility] Sex Assigned At [birth year] Universit y of 00:00:00 00:00:00 [facility] Smoking Status Start Date Stop Date Source Never smoked tobacco [facility] Medications Ordered Filled Start Stop Current Ordering Indication Dosage Frequency Signature Comments Components Source Medication Medication Date Date Medication? Clinician (SIG) Name Name bromphenira Yes [id number] 5mL Take 5 mL Univers mine-pseudo 2-18 by mouth 4 it y of ephedrine-D 00:[place] (four[place] (BROMFED 00 times Medical DM) 2-30-10 daily as Bran ch mg/5 mL needed for syrup Congestion /Allergies . bromphenira Yes [id number] 5mL Take 5 mL Univers mine-pseudo 2-18 by mouth 4 it y of ephedrine-D 00:00: (four[place] (BROMFED 00 times Medical DM) 2-30-10 daily as Bran ch mg/5 mL needed for syrup Congestion /Allergies . benzonatate Yes [id number] 100mg Take 1 Univers 100 mg 7-03 capsule by ity of capsule 00:00: mouth 3 [place] 00 (three) Medical times [place] daily as needed for Cough. loratadine Yes [id number] 10mg Take 1 U nivers (CLARITIN) 7-03 tablet by ity of 10 mg 00:00: mouth at [place] tablet 00 bedtime as Medical needed for Branch Allergies. benzonatate 2022-0 Yes [id number] 100mg Take 1 Univers 100 mg 7-03 capsule by ity of capsule 00:00: mouth 3 [place] 00 (three) Medical times Branch daily as needed for Cough. loratadine 2-0 Yes [id number] 10mg Take 1 U nivers (CLARITIN) 7-03 tablet by ity of 10 mg 00:00: mouth at [place] tablet 00 bedtime as Medical needed for Branch Allergies. benzonatate 2-0 Yes [id number] 100mg Take 1 Univers 100 mg 7-03 capsule by ity of capsule 00:00: mouth 3 [place] 00 (three) Medical times Branch daily as needed for Cough. loratadine 2-0 Yes [id number] 10mg Take 1 U nivers (CLARITIN) 7-03 tablet by ity of 10 mg 00:00: mouth at [place] tablet 00 bedtime as Medical needed for Branch Allergies. benzonatate 2-0 Yes [id number] 100mg Take 1 Univers 100 mg 7-03 capsule by ity of capsule 00:00: mouth 3 (three) Medical times Branch daily as needed for Cough. loratadine 2-0 Yes [id number] 10mg Take 1 U nivers (CLARITIN) 7-03 tablet by ity of 10 mg 00:00: mouth at [place] tablet 00 bedtime as Medical needed for Branch Allergies. benzonatate 2-0 Yes [id number] 100mg Take 1 Univers 100 mg 7-03 capsule by ity of capsule 00:00: mouth 3 00 (three) Medical times Branch daily as needed for Cough. loratadine 2-0 Yes [id number] 10mg Take 1 U nivers (CLARITIN) 7-03 tablet by ity of 10 mg 00:00: mouth at [place] tablet 00 bedtime as Medical needed for Branch Allergies. benzonatate 2022-0 Yes [id number] 100mg Take 1 Univers 100 mg 7-03 capsule by ity of capsule 00:00: mouth 3 [place] 00 (three) Medical times Branch daily as needed for Cough. loratadine 2022-0 Yes [id number] 10mg Take 1 U nivers (CLARITIN) 7-03 tablet by ity of 10 mg 00:00: mouth at [place] tablet 00 bedtime as Medical needed for Branch Allergies. benzonatate 2021-0 Yes [id number] 100mg Take 1 Univers 100 mg 2-01 capsule by ity of capsule 00:00: mouth 3 (three) Medical times Branch daily as needed for Cough. benzonatate 2021-0 Yes [id number] 100mg Take 1 Univers 100 mg 2-01 capsule by ity of capsule 00:00: mouth 3 (three) Medical times Branch daily as needed for Cough. benzonatate 2021-0 Yes [id number] 100mg Take 1 Univers 100 mg 2-01 capsule by ity of capsule 00:00: mouth (three) Medical times Branch daily as needed for Cough. benzonatate 2021-0 Yes [id number] 100mg Take 1 Univers 100 mg 2-01 capsule by ity of capsule 00:00: mouth (three) Medical times Branch daily as needed for Cough. benzonatate 2021-0 Yes [id number] 100mg Take 1 Univers 100 mg 2-01 capsule by ity of capsule 00:00: mouth (three) Medical times Branch daily as needed for Cough. benzonatate 2021-0 Yes [id number] 100mg Take 1 Univers 100 mg 2-01 capsule by ity of capsule 00:00: mouth (three) Medical times Branch daily as needed for Cough. benzonatate 2021-0 Yes [id number] 100mg Take 1 Univers 100 mg 2-01 capsule by ity of capsule 00:00: mouth (three) Medical times Branch daily as needed for Cough. benzonatate 2021-0 Yes [id number] 100mg Take 1 Univers 100 mg 2-01 capsule by ity of capsule 00:00: mouth (three) Medical times Branch daily as needed for Cough. benzonatate 2021-0 Yes [id number] 100mg Take 1 Univers 100 mg 2-01 capsule by ity of capsule 00:00: mouth (three) Medical times Branch daily as needed for Cough. benzonatate 2-0 Yes [id number] 100mg Take 1 Univers 100 mg 2-01 [...] Therapy: Other (see Comments) iopamidol 2020-07- No [id number] 120mL 120 mL, Univers (ISOVUE 2-25 12-24 Intravenou ity o f 370-500 mL) 00:15: 23:08 s, ONCE, 1 [place] injection 00 :00 dose, On Medica l 120 mL Fri Branch 06/29/21 at 1815, Routine amoxicillin 2020-07- No [id number] 1{tbl} Take 1 Univers -clavulanat 2-24 -04 [...] Indication s: acute pain ondansetron 2020-07- No [id number] 4mg Take 1 Univers 4 mg tablet 2-24 12-30 tablet by it y of 00:00: 05:59 mouth [place] 00 :00 every 8 Medical (eight) Branch hours for 5 days. atorvastati 2020-07 Yes 10mg 10 mg, Univ ers n (LIPITOR) 1-15 Oral, QHS, it y of tablet 10 03:00: First dose [place] mg 00 on [facility] 05/20/21 Branch at 2100, Until Discontinu ed, Routine atorvastati 2020-07 Yes 10mg Take 10 mg Univers n 10 mg 1-14 by mouth ity of tablet 17:23: at [place] 01 bedtime. Medical Branch spironolact 2020-07 Yes [...] mg 00 First dose Medical on [facility] 05/20/21 at 0900, Until Discontinu ed, Routine clopidogreL 2020-07 Yes 75mg 75 mg, Univ ers (PLAVIX) 1-14 Oral, QAM, ity o f tablet 75 15:00: First dose [place] mg 00 on [facility] 05/20/21 Branch at 0900, Until Discontinu ed, Routine ALPRAZolam 2020-07 Yes .5mg 0.5 mg, Univ ers (XANAX) 1-14 Oral, ity of tablet 0.5 15:00: DAILY, [place] mg 00 First dose Medical on [facility] 05/20/21 at 0900, Until Discontinu ed, Routine spironolact 2020-07 Yes 25mg 25 mg, Univ ers one 1-14 Oral, BID, ity of (ALDACTONE) 14:00: First dose [place] tablet 25 00 on [facility] mg 05/20/21 Branch at 0800, Until Discontinu ed, Routine Sliding 2020-07 Yes Subcutaneo Univ ers Scale 1-14 us, AC, ity of Insulin-Reg 13:30: First dose [place] ular + Fsbg 00 on [facility] 05/20[facility]21 Branch at 0730, Until Discontinu ed, Routine levothyroxi 2020-07 Yes 100ug 100 mcg, U nivers ne 1-14 Oral, ity of (SYNTHROID) 12:00: QAM-0600, [place] tablet 100 00 First dose Med ical mcg on [facility] 05/20/21 at 0600, Until Discontinu ed, Routine pantoprazol 2020-07 Yes 40mg 40 mg, Univ ers e 1-14 Oral, ity of (PROTONIX) 06:30: DAILY, [place] EC tablet 00 First dose Medi hermelindo 40 mg (after Branch last modificati on) on [place] 05/20/21 at 0030, Until Discontinu ed cyclobenzap 2020-07 Yes 10mg 10 mg, Univ ers rine 1-14 Oral, ity of (FLEXERIL) 06:12: TIDPRN, [place] tablet 10 13 Starting Medica l mg on [facility] 05/20/21 at 0012, Until Discontinu ed, Routine, Muscle Spasms, leg pain polyethylen 2020-07 Yes 17g 17 g, Unive rs e glycol 1-14 Oral, ity of 3350 powder 06:04: [id number], [place] 17 g 16 Starting Medical on [facility] 05/20/21 at 0004, Until Discontinu ed, Routine, Constipati on glucagon 2020-07 Yes 1mg 1 mg, Univers (GLUCAGEN -14 Intramuscu ity of DIAGNOSTIC 05:29: lar, PRN, [place] KIT) 29 Starting Medical injection 1 on [facility] 05/19/21 at 2329, Until Discontinu ed, JEFFREY, Blood Glucose < or = 70 mg/dL and patient is unable to swallow or has mental changes. dextrose 50 2020-07 Yes 25mL 25 mL, Univ ers % in water 14 Slow IV ity of (D50W) 05:29: Push, PRN, [place] injection 29 Starting Medica l 25 mL on [facility] 05/19/21 at 2329, Until Discontinu ed, JEFFREY, Blood Glucose < or = 70 mg/dL and patient is unable to swallow or has mental status changes. ondansetron 2020-07 Yes 4mg 4 mg, Slow Univers (ZOFRAN 1-14 IV Push, ity of (PF)) 05:29: Q6HPRN, [place] injection 4 21 Starting Medi hermelindo mg on [facility] 05/19/21 at 2329, Until Discontinu ed, Routine, Nausea and Vomiting (N/V) morpHINE 2020-07 No 2mg 2 mg, Slow Un brice injection 2 14 11-15 IV Push, ity of mg 05:29: 05:28 Q4HPRN, [place] 11 :11 Starting Medical on [facility] Branch 05/19/21 at 2329, Until 05/20/21 at 2328, Routine, Pain (scale 7-10), Chest pain traMADoL 2020-07- No 50mg 50 mg, Univer s (ULTRAM) 07-2016 Oral, ity of tablet 50 05:29: 05:28 Q8HPRN, [place] mg 08 :08 Starting Medical on [facility] Branch 05/19/21 at 2329, Until 05/21/21 at 2328, Routine, Pain (scale 4-6) acetaminoph 2020-07 Yes 650mg 650 mg, Un brice en 14 Oral, ity of (TYLENOL) 05:29: Q6HPRN, [place] tablet 650 05 Starting Medic al mg on [facility] Branch 05/19/21 at 2329, Until Discontinu ed, Routine, Pain (scale 1-3) omeprazole 2020-07- No 20mg Take 20 mg Univers 20 mg 07-19 by mouth ity of capsule 23:30: 00:00 daily. [place] 33 :00 [facility] guaiFENesin 2020- No 100mg 100 mg, U nivers 100 mg/5 mL 09-14 Oral, ity of solution 05:00: 16:59 ONCE, 1 [place] 100 mg 00 :00 dose, Fri [facility] 09/13/20 at Branch 2300, Routine ketorolac 2020- No 30mg 30 mg, Unive rs (TORADOL) 09-1411 Slow IV ity of injection 03:30: 02:27 Push, [place] 30 mg 00 :00 ONCE, 1 Medical dose, [facility] 09/13/20 at 2130, JEFFREY
Fa culty member approving Restricted medication : DIANA BERG benzonatate Yes [id number] 100mg Take 1 Univers 100 mg 3-10 capsule by ity of capsule 00:00: mouth 3 [place] 00 (three) Medical times Branch daily as needed for Cough. benzonatate Yes [id number] 100mg Take 1 Univers 100 mg 3-10 capsule by ity of capsule 00:00: mouth 3 [place] 00 (three) Medical times Branch daily as needed for Cough. benzonatate 2020- No [id number] 100mg Take 1 Univers 100 mg 09-13- [...] 10 1929, JEFFREY mL codeine-gua 2019-0 Yes [id number] 10mL Take 10 mL Univers ifenesin -21 by mouth ity of 10-100 mg/5 00:00: every 6 [place]ande[place] as mL solution 00 (six) Medical hours as Branch needed for Cough. albuterol 2020-0 Yes [id number] 2.5mg Inhale 3 Univers 2.5 mg /3 1-21 mL every 4 ity of mL (0.083 00:00: (four) [place] %) 00 hours as Medical nebulizer needed for Bran ch solution Wheezing or Shortness of Breath. May also nebulize one extra every 6 hours. albuterol 2020-0 Yes [id number] 2.5mg Inhale 3 Univers 2.5 mg /3 1-21 mL every 4 ity of mL (0.083 00:00: (four) [place] %) 00 hours as Medical nebulizer needed for Bran ch solution Wheezing or Shortness of Breath. May also nebulize one extra every 6 hours. albuterol 2020-0 Yes [id number] 2.5mg Inhale 3 Univers 2.5 mg /3 1-21 mL every 4 ity of mL (0.083 00:00: (four) [place] %) 00 hours as Medical nebulizer needed for Bran ch solution Wheezing or Shortness of Breath. May also nebulize one extra every 6 hours. albuterol 2020-0 Yes [id number] 2.5mg Inhale 3 Univers 2.5 mg /3 1-21 mL every 4 ity of mL (0.083 00:00: (four) [place] %) 00 hours as Medical nebulizer needed for Bran ch solution Wheezing or Shortness of Breath. May also nebulize one extra every 6 hours. albuterol 2020-0 Yes [id number] 2.5mg Inhale 3 Univers 2.5 mg /3 1-21 mL every 4 ity of mL (0.083 00:00: (four) [place] %) 00 hours as Medical nebulizer needed for Bran ch solution Wheezing or Shortness of Breath. May also nebulize one extra every 6 hours. albuterol 2020-0 Yes [id number] 2.5mg Inhale 3 Univers 2.5 mg /3 1-21 mL every 4 ity of mL (0.083 00:00: (chi [facility]) [place] %) 00 hours as Medical nebulizer needed for Bran ch solution Wheezing or Shortness of Breath. May also nebulize one extra every 6 hours. albuterol 2020-0 Yes [id number] 2.5mg Inhale 3 Univers 2.5 mg /3 1-21 mL every 4 ity of mL (0.083 00:00: (four) [place] %) 00 hours as Medical nebulizer needed for Bran ch solution Wheezing or Shortness of Breath. May also nebulize one extra every 6 hours. albuterol 2020-0 Yes [id number] 2.5mg Inhale 3 Univers 2.5 mg /3 1-21 mL every 4 ity of mL (0.083 00:00: (four) [place] %) 00 hours as Medical nebulizer needed for Bran ch solution Wheezing or Shortness of Breath. May also nebulize one extra every 6 hours. albuterol 2020-0 Yes [id number] 2.5mg Inhale 3 Univers 2.5 mg /3 1-21 mL every 4 ity of mL (0.083 00:00: (four) [place] %) 00 hours as Medical nebulizer needed for Bran ch solution Wheezing or Shortness of Breath. May also nebulize one extra every 6 hours. albuterol 2020-0 Yes [id number] 2.5mg Inhale 3 Univers 2.5 mg /3 1-21 mL every 4 ity of mL (0.083 00:00: (four) [place] %) 00 hours as Medical nebulizer needed for Bran ch solution Wheezing or Shortness of Breath. May also nebulize one extra every 6 hours. albuterol 2020-0 Yes [id number] 2.5mg Inhale 3 Univers 2.5 mg /3 1-21 mL every 4 ity of mL (0.083 00:00: (four) [place] %) 00 hours as Medical nebulizer needed for Bran ch solution Wheezing or Shortness of Breath. May also nebulize one extra every 6 hours. albuterol 2020-0 Yes [id number] 2.5mg Inhale 3 Univers 2.5 mg /3 1-21 mL every 4 ity of mL (0.083 00:00: (four) [place] %) 00 hours as Medical nebulizer needed for Bran ch solution Wheezing or Shortness of Breath. May also nebulize one extra every 6 hours. albuterol 2020-0 Yes [id number] 2.5mg Inhale 3 Univers 2.5 mg /3 1-21 mL every 4 ity of mL (0.083 00:00: (four) [place] %) 00 hours as Medical nebulizer needed for Bran ch solution Wheezing or Shortness of Breath. May also nebulize one extra every 6 hours. albuterol 2020-0 Yes [id number] 2.5mg Inhale 3 Univers 2.5 mg /3 1-21 mL every 4 ity of mL (0.083 00:00: (four) [place] %) 00 hours as Medical nebulizer needed for Bran ch solution Wheezing or Shortness of Breath. May also nebulize one extra every 6 hours. albuterol 2020-0 Yes [id number] 2.5mg Inhale 3 Univers 2.5 mg /3 1-21 mL every 4 ity of mL (0.083 00:00: (four) [place] %) 00 hours as Medical nebulizer needed for Bran ch solution Wheezing or Shortness of Breath. May also nebulize one extra every 6 hours. albuterol 2020-0 Yes [id number] 2.5mg Inhale 3 Univers 2.5 mg /3 1-21 mL every 4 ity of mL (0.083 00:00: (four) [place] %) 00 hours as Medical nebulizer needed for Bran ch solution Wheezing or Shortness of Breath. May also nebulize one extra every 6 hours. codeine-gua 2020- No [id number] 10mL Take 10 mL Univers ifenesin 07-27 [...] 03/11/19 at 1430, JEFFREY dicyclomine 2018- Yes [id number] 10mg Take 1 Univers (BENTYL) 10 9-05 capsule by it y of mg capsule 00:00: mouth 4 [place] (four) Medical times Branch daily. ondansetron 2018- Yes [id number] 4mg Take 1 Univers 4 mg 9-05 tablet by ity of disintegrat 00:00: mouth [place] ing tablet 00 every 4 Medica l (four) Branch hours as needed for Nausea and Vomiting (N/V). dicyclomine 2019-0 Yes [id number] 10mg Take 1 Univers (BENTYL) 10 9-05 capsule by it y of mg capsule 00:00: mouth 4 [place] 00 (four) Medical times Branch daily. ondansetron 2019-0 Yes [id number] 4mg Take 1 Univers 4 mg 9-05 tablet by ity of disintegrat 00:00: mouth [place] ing tablet 00 every 4 Medica l (four) Branch hours as needed for Nausea and Vomiting (N/V). dicyclomine 2019-0 Yes [id number] 10mg Take 1 Univers (BENTYL) 10 9-05 capsule by it y of mg capsule 00:00: mouth 4 [place] 00 (four) Medical times Branch daily. ondansetron Yes [id number] 4mg Take 1 Univers 4 mg 9-05 tablet by ity of disintegrat 00:00: mouth [place] ing tablet 00 every 4 Medica l (four) Branch hours as needed for Nausea and Vomiting (N/V). dicyclomine 2020- No [id number] 10mg Take 1 Univers (BENTYL) 10 9-05 03-10 capsule by i ty of mg capsule 00:00: 00:00 mouth 4 [place] as 00 :00 (four) Medical times Branch daily. ondansetron 2020- No [id number] 4mg Take 1 Univers 4 mg 9-05 [...] ity of tablet 14:40: at [place] [address] bedtime. Medical Branch omeprazole 2018-0 Yes 20mg Take 20 mg U nivers 20 mg 4-10 by mouth ity of capsule 14:40: daily. [place] [address] Medical Branch atorvastati 2018-0 Yes 10mg Take 10 mg Univers n 10 mg 4-10 by mouth ity of tablet 14:40: at [place] [address] bedtime. Medical Branch omeprazole 2018-0 Yes 20mg Take 20 mg U nivers 20 mg 4-10 by mouth ity of capsule 14:40: daily. [place] [address] Medical Branch atorvastati 2017-0 Yes 10mg Take 10 mg Univers n 10 mg 4-10 by mouth ity of tablet 14:40: at [place] [address] bedtime. Medical Branch omeprazole 2018-0 Yes 20mg Take 20 mg U nivers 20 mg 4-10 by mouth ity of capsule 14:40: daily. [place] [address] Medical Branch atorvastati 2017-0 Yes 10mg Take 10 mg Univers n 10 mg 4-10 by mouth ity of tablet 14:40: at [place] [address] bedtime. Medical Branch omeprazole 2017-0 Yes 20mg Take 20 mg U nivers 20 mg 4-10 by mouth ity of capsule 14:40: daily. [place] [address] Medical Branch atorvastati 2017-0 Yes 10mg Take 10 mg Univers n 10 mg 4-10 by mouth ity of tablet 14:40: at [place] [address] bedtime. Medical Branch omeprazole 2018-0 Yes 20mg Take 20 mg U nivers 20 mg 4-10 by mouth ity of capsule 14:40: daily. [place] [address] Medical Branch levothyroxi 0 Yes TAKE 1 Univ ers ne 125 mcg 4-10 TABLET BY ity of tablet 00:00: MOUTH [place] 00 EVERY Medical MORNING Branch levothyroxi 2017-0 Yes TAKE 1 Univ ers ne 125 mcg 4-10 TABLET BY ity of tablet 00:00: MOUTH [place] EVERY Medical MORNING Branch levothyroxi 2018-0 Yes TAKE 1 Univ ers ne 125 mcg 4-10 TABLET BY ity of tablet 00:00: MOUTH [place] EVERY Medical MORNING Branch levothyroxi 2017-0 Yes TAKE 1 Univ ers ne 125 mcg 4-10 TABLET BY ity of tablet 00:00: MOUTH [place] EVERY Medical MORNING Branch levothyroxi 2018-0 Yes [...] TABLET BY ity of tablet 00:00: MOUTH [place] 00 EVERY Medical MORNING Branch clopidogrel 2018-0 Yes TAKE 1 Univ ers 75 mg 2-06 TABLET BY ity of tablet 00:00: MOUTH [place] 00 EVERY Medical MORNING Branch clopidogrel 2018-0 Yes TAKE 1 Univ ers 75 mg 2-06 TABLET BY ity of tablet 00:00: MOUTH [place] 00 EVERY Medical MORNING Branch clopidogrel 2018-0 Yes TAKE 1 Univ ers 75 mg 2-06 TABLET BY ity of tablet 00:00: MOUTH [place] 00 EVERY Medical MORNING Branch clopidogrel 2018-0 Yes TAKE 1 Univ ers 75 mg 2-06 TABLET BY ity of tablet 00:00: MOUTH [place] 00 EVERY Medical MORNING Branch clopidogrel 2018-0 Yes TAKE 1 Univ ers 75 mg 2-06 TABLET BY ity of tablet 00:00: MOUTH [place] 00 EVERY Medical MORNING Branch clopidogrel 2018-0 Yes TAKE 1 Univ ers 75 mg 2-06 TABLET BY ity of tablet 00:00: MOUTH [place] 00 EVERY Medical MORNING Branch clopidogrel 2018-0 Yes TAKE 1 Univ ers 75 mg 2-06 TABLET BY ity of tablet 00:00: MOUTH [place] 00 EVERY Medical MORNING Branch clopidogrel 2018-0 Yes TAKE 1 Univ ers 75 mg 2-06 TABLET BY ity of tablet 00:00: [facility] 00 EVERY Medical MORNING Branch clopidogrel 2018-0 Yes TAKE 1 Univ ers 75 mg 2-06 TABLET BY ity of tablet 00:00: MOUTH [place] 00 EVERY Medical MORNING Branch clopidogrel 2018-0 Yes TAKE 1 Univ ers 75 mg 2-06 TABLET BY ity of tablet 00:00: MOUTH [place] 00 EVERY Medical MORNING Branch clopidogrel 2018-0 Yes TAKE 1 Univ ers 75 mg 2-06 TABLET BY ity of tablet 00:00: MOUTH [place] 00 EVERY Medical MORNING Branch clopidogrel 2018-0 Yes TAKE 1 Univ ers 75 mg 2-06 TABLET BY ity of tablet 00:00: MOUTH [place] 00 EVERY Medical MORNING Branch clopidogrel 2018-0 Yes TAKE 1 Univ ers 75 mg 2-06 TABLET BY ity of tablet 00:00: MOUTH [place] 00 EVERY Medical MORNING Branch clopidogrel 2018-0 [...] 20:38:00 149 mm[Hg] Univer sity of pressure [place] [facility] [place] Diastolic blood 2023-02-26 20:38:00 75 mm[Hg] Unive rsity of [facility] Heart rate 2023-02-26 20:38:00 81 /min Universi ty of [facility] Body temperature 2023-02-26 20:38:00 36.72 Brittany [facility] Respiratory rate 2023-02-26 20:38:00 18 /min [facility] Body height 2023-02-26 20:38:00 170.2 cm Universi ty of [facility] Body weight 2023-02-26 20:38:00 57.607 kg Universi ty of [facility] BMI 2023-02-26 20:38:00 19.89 kg/m2 Universi ty [facility] Oxygen saturation in 2023-02-26 20:38:00 100 /min [facility] Arterial blood by [facility] Pulse oximetry Branch Systolic blood 2022-08-24 15:43:00 135 mm[Hg] Univer sity of [facility] Diastolic blood 2022-08-24 15:43:00 83 mm[Hg] Unive rsity of [facility] Heart rate 2022-08-24 15:43:00 94 /min Universi ty of [facility] Body temperature 2022-08-24 15:43:00 36.83 Brittany Univ ersity of [facility] Respiratory rate 2022-08-24 15:43:00 18 /min Univ ersity of [facility] Body height 2022-08-24 15:43:00 170.2 cm Universi ty of [facility] Body weight 2022-08-24 15:43:00 58.968 kg Universi ty of [facility] BMI 2022-08-24 15:43:00 20.36 kg/m2 Universi ty of [place] [facility] Oxygen saturation in 2022-08-24 15:43:00 99 /min University of Arterial blood by [facility] hermelindo Pulse oximetry Branch Systolic blood 2022-01-08 02:02:00 147 mm[Hg] Univer sity of pressure [place] [facility] Diastolic blood 2022-01-08 02:02:00 78 mm[Hg] Unive rsity of pressure [place] [facility] Heart rate 2022-01-08 02:02:00 78 /min Universi ty of [place] [facility] Respiratory rate 2022-01-08 02:02:00 18 /min Univ ersity of [place] [facility] Oxygen saturation in 2022-01-08 02:02:00 100 /min University of Arterial blood by [facility] Pulse oximetry Branch Body temperature 2022-01-07 23:24:00 37.17 Brittany Univ ersity of [place] [facility] Body weight 2022-01-07 23:24:00 58.968 kg Universi ty of [place] [facility] BMI 2022-01-07 23:24:00 20.36 kg/m2 Universi ty of [place] [facility] Systolic blood 2022-01-06 20:29:00 140 mm[Hg] Univer sity of pressure [place] [facility] Diastolic blood 2022-01-06 20:29:00 106 mm[Hg] Unive rsity of pressure [place] [facility] Heart rate 2022-01-06 20:29:00 102 /min Universi ty of [place] [facility] Body temperature 2022-01-06 20:29:00 37.5 Brittany Univ ersity of [place] [facility] Respiratory rate 2022-01-06 20:29:00 16 /min Univ ersity of [place] [facility] Body height 2022-01-06 20:29:00 170.2 cm Universi ty of [place] [facility] Body weight 2022-01-06 20:29:00 58.968 kg Universi ty of [place] [facility] BMI 2022-01-06 20:29:00 20.36 kg/m2 Universi ty of [place] Medical Branch Oxygen saturation in 2022-01-06 20:29:00 99 /min University of Arterial blood by [facility] Pulse oximetry Branch Systolic blood 2021-09-02 01:52:00 132 mm[Hg] Univer sity of [facility] [place] [facility] Diastolic blood 2021-09-02 01:52:00 75 mm[Hg] Unive rsity of [facility] [place] [facility] Heart rate 2021-09-02 01:52:00 67 /min [facility] [place] [facility] Respiratory rate 2021-09-02 01:52:00 16 /min Univ [facility] [place] [facility] Oxygen saturation in 2021-09-02 01:52:00 99 /min [facility] of Arterial blood by [facility] Pulse oximetry Branch Body temperature 2021-09-01 23:57:00 36.17 Brittany [facility] [place] [facility] Body height 2021-09-01 23:57:00 170.2 cm [facility] [place] [facility] Body weight 2021-09-01 23:57:00 58.968 kg [facility] [place] [facility] BMI 2021-09-01 23:57:00 20.36 kg/m2 [facility] [place] [facility] Systolic blood 2021-08-07 15:57:00 165 mm[Hg] Univer [facility] [place] [facility] Diastolic blood 2021-08-07 15:57:00 71 mm[Hg] Unive rsity [facility] [place] [facility] Heart rate 2021-08-07 15:57:00 97 /min [facility] [place] [facility] Body temperature 2021-08-07 15:57:00 37.44 Brittany [facility] [place] [facility] Respiratory rate 2021-08-07 15:57:00 18 /min [facility] [place] [facility] Body height 2021-08-07 15:57:00 170.2 cm [facility] [place] [facility] Body weight 2021-08-07 15:57:00 56.7 kg [facility] [place] [facility] BMI 2021-08-07 15:57:00 19.58 kg/m2 [facility] [place] [facility] Oxygen saturation in 2021-08-07 15:57:00 98 /min [facility] Arterial blood by [facility] Pulse oximetry Branch Systolic blood 2021-06-30 01:29:00 132 mm[Hg] [facility] [place] [facility] Diastolic blood 2021-06-30 01:29:00 75 mm[Hg] Unive rsity [facility] [place] [facility] Heart rate 2021-06-30 01:29:00 75 /min [facility] [place] [facility] Respiratory rate 2021-06-30 01:29:00 18 /min [facility] [place] [facility] Oxygen saturation in 2021-06-30 01:29:00 100 /min [facility] Arterial blood by [facility] Pulse oximetry Branch Body temperature 2021-06-29 22:01:00 36.67 Brittany [facility] [place] [facility] Body weight 2021-06-29 22:01:00 53.071 kg [facility] [place] [facility] BMI 2021-06-29 22:01:00 18.32 kg/m2 [facility] [place] [facility] Systolic blood 2021-05-20 21:45:00 137 mm[Hg] [facility] [place] [facility] Diastolic blood 2021-05-20 21:45:00 75 mm[Hg] Unive rs[facility] [place] [facility] Heart rate 2021-05-20 21:45:00 75 /min [facility] [place] [facility] Body temperature 2021-05-20 21:45:00 36.5 Brittany [facility] [place] [facility] Respiratory rate 2021-05-20 21:45:00 16 /min [facility] [place] [facility] Oxygen saturation in 2021-05-20 21:45:00 97 /min [facility] Arterial blood by [facility] Pulse oximetry Branch Body weight 2021-05-20 [...] 97 /min [facility] Arterial blood by [facility] Pulse oximetry Branch Body temperature 2020-09-14 02:10:00 36.5 Brittany [facility] [place] [facility] Body height 2020-09-14 02:09:00 170.2 cm [facility] [place] [facility] Body weight 2020-09-14 02:09:00 61.236 kg [facility] [place] [facility] BMI 2020-09-14 02:09:00 21.14 kg/m2 [facility] [place] [facility] Systolic blood 2020-09-14 03:30:00 147 mm[Hg] [facility] [place] [facility] Diastolic blood 2020-09-14 03:30:00 89 mm[Hg] Unive rs[facility] [place] [facility] Heart rate 2020-09-14 03:30:00 73 /min [facility] [place] [facility] Respiratory rate 2020-09-14 03:30:00 19 /min [facility] [place] [facility] Oxygen saturation in 2020-09-14 03:30:00 97 /min [facility] Arterial blood by [place] [employer] [facility] Pulse oximetry Branch Body temperature 2020-09-14 02:10:00 36.5 Brittany [facility] [place] [facility] Body height 2020-09-14 02:09:00 170.2 cm [facility] [place] [facility] Body weight 2020-09-14 02:09:00 61.236 kg [facility] [place] [facility] BMI 2020-09-14 02:09:00 21.14 kg/m2 [facility] [place] [facility] Heart rate 2019-07-28 01:36:00 70 /min [facility] [place] [facility] Respiratory rate 2019-07-28 01:36:00 18 /min [facility] [place] [facility] Oxygen saturation in 2019-07-28 01:24:00 98 /min [facility] Arterial blood by [place] [employer] [facility] Pulse oximetry Branch Systolic blood 2019-07-28 01:00:00 143 mm[Hg] [facility] [place] [facility] Diastolic blood 2019-07-28 01:00:00 74 mm[Hg] Unive rs[facility] [place] [facility] Body temperature 2019-07-28 00:05:00 36.56 Brittany [facility] [place] [facility] Body height 2019-07-28 00:05:00 170.2 cm [facility] [place] [facility] Body weight 2019-07-28 00:05:00 68.04 kg [facility] [place] [facility] BMI 2019-07-28 00:05:00 23.49 kg/m2 [facility] [place] [facility] Heart rate 2019-07-28 01:36:00 70 /min [facility] [place] [facility] Respiratory rate 2019-07-28 01:36:00 18 /min [facility] [place] [facility] Oxygen saturation in 2019-07-28 01:24:00 98 /min [facility]ial blood by [place] [employer] [facility] Pulse oximetry Branch Systolic blood 2019-07-28 01:00:00 143 mm[Hg] [facility] [place] [facility] Diastolic blood 2019-07-28 01:00:00 74 mm[Hg] Unive rs[facility] [place] [facility] Body temperature 2019-07-28 00:05:00 36.56 Brittany [facility] [place] [facility] Body height 2019-07-28 00:05:00 170.2 cm [facility] [place] [facility] [place] Body weight 2019-07-28 00:05:00 68.04 kg [facility] [place] [facility] BMI 2019-07-28 00:05:00 23.49 kg/m2 [facility] [place] [facility] Systolic blood 2019-03-11 21:00:00 141 mm[Hg] [facility] [place] [facility] Diastolic blood 2019-03-11 21:00:00 66 mm[Hg] Unive rsity [facility] [place] [facility] Heart rate 2019-03-11 21:00:00 97 /min [facility] [place] [facility] Respiratory rate 2019-03-11 21:00:00 18 /min [facility] [place] [facility] Oxygen saturation in 2019-03-11 21:00:00 97 /min [facility] Arterial blood by [facility] Pulse oximetry Branch Body temperature 2019-03-11 19:13:00 36.06 Brittany [facility] [place] [facility] Body weight 2019-03-11 19:12:00 68.04 kg [facility] [place] [facility] BMI 2019-03-11 19:12:00 23.49 kg/m2 [facility] [place] [facility] Systolic blood 2019-03-11 21:00:00 141 mm[Hg] [facility] [place] [facility] Diastolic blood 2019-03-11 21:00:00 66 mm[Hg] Unive rsity [facility] [place] [facility] Heart rate 2019-03-11 21:00:00 97 /min [facility] Respiratory rate 2019-03-11 21:00:00 18 /min [facility] Oxygen saturation in 2019-03-11 21:00:00 97 /min [facility] Arterial blood by [facility] Pulse oximetry [place] Body temperature 2019-03-11 19:13:00 36.06 Brittany [facility] Body weight 2019-03-11 19:12:00 68.04 kg [facility] BMI 2019-03-11 19:12:00 23.49 kg/m2 [facility] Procedures Procedure Date / Time Performing Clinician Source Performed COMP. METABOLIC PANEL 2023-02-26 21:14:00 Neida Duggan [facility] ([id number]) [facility] CBC WITH DIFF 2023-02-26 21:14:00 Neida Duggan [place] o f [facility] CONSENT/REFUSAL FOR 2023-02-26 20:33:07 Doctor Unassigned, No Un [facility] DIAGNOSIS AND TREATMENT Name [facility] POCT SARS-COV-2 ANTIGEN 2022-08-24 15:52:00 Susan Lee [facility] (BINAX NOW) [facility] POCT MOLECULAR FLU 2022-08-24 15:51:00 Unknown, Attending [facility] ASSIGNMENT OF BENEFITS 2022-08-24 15:38:07 Doctor Unassigned, No [facility] Name [facility] XR CHEST 1 VW 2022-01-08 00:24:42 Alex Oconnell [facility] RAPID STREP SCREEN FOR 2022-01-06 20:47:00 Sherrill Connor [facility] GROUP A Medical Branch COVID-19 (ID NOW RAPID 2022-01-06 20:47:00 Sherrill Cononr [facility] TESTING) Medical Branch CONSENT/REFUSAL FOR 2022-01-06 20:26:18 Doctor Unassigned, No Un [facility] DIAGNOSIS AND TREATMENT Name [facility] RAPID INFLUENZA A/B 2021-09-02 00:47:00 Cameron [facility] COVID-19 (ID NOW RAPID 2021-09-02 00:47:00 Cameron Dalton [facility] TESTING) Medical Branch XR CHEST 2 VW 2021-09-02 00:27:31 [facility]US[facility] FOR 2021-09-01 23:46:25 Doctor Unassigned, No [facility] Name Medical Branch XR CHEST 2 VW 2021-08-07 16:43:01 Darius Ledesma [facility] CONSENT/REFUSAL FOR 2021-08-07 15:37:28 Doctor Unassigned, No [facility] Name [facility] CT ABDOMEN PELVIS W 2021-06-29 23:11:24 Jose Alejandro Castano [facility] CONTRAST Medical Branch LIPASE 2021-06-29 22:18:00 [facility] 2021-06-29 22:18:00 Omaira [facility] COMP. METABOLIC PANEL 2021-06-29 22:18:00 Omaira [facility] ([id number]) Medical Branch CBC WITH DIFF 2021-06-29 22:18:00 Omaira [facility] URINALYSIS 2021-06-29 22:18:00 [facility] CONSENT/REFUSAL FOR 2021-06-29 21:50:47 Doctor Unassigned, No [facility] Name [facility] POCT GLUCOSE (AUTOMATED) 2021-05-20 17:30:00 [facility]ina [facility] ROUTINE & RHYTHM 2021-05-20 15:36:46 Sami Caceres [facility] STRIP [facility] TRANSTHORACIC ECHO (TTE) 2021-05-20 15:19:52 [facility] COMPLETE [facility] TROPONIN I 2021-05-20 11:04:00 Yane [facility] BASIC METABOLIC PANEL 2021-05-20 11:04[facility] ([facility], K, CL, CO2, Medical Branch GLUCOSE, BUN, CREATININE, CA) CBC WITH DIFF 2021-05-20 11:04:00 Marcelina Che [facility] TROPONIN I 2021-05-20 01:56:00 Neida Duggan [facility] XR CHEST 1 VW 2021-05-20 00:01:05 Neida Duggan [facility] LIPASE 2021-05-19 23:49:00 Neida Duggan [facility] MAGNESIUM 2021-05-19 23:49:00 Neida Duggan [facility] TROPONIN I 2021-05-19 23:49:00 Neida Duggan [facility] COMP. METABOLIC PANEL 2021-05-19 23:49:00 Neida Duggan [facility] ([id number]) [facility] CBC WITH DIFF 2021-05-19 23:49:00 Neida Duggan [facility] PROTHROMBIN TIME / INR 2021-05-19 23:49:00 Neida Duggan [facility] ACTIVATED PARTIAL 2021-05-19 23:49:00 Neida Duggan [facility] THRMPLAS [facility] COVID-19 (ID NOW RAPID 2021-05-19 23:49:00 Neida Duggan [facility] TESTING) [facility] CONSENT/REFUSAL FOR 2021-05-19 23:01:42 Doctor Unassigned, No [facility] DIAGNOSIS AND TREATMENT Name Medical Branch URINALYSIS 2020-09-14 02:42:00 Diana [facility] XR CHEST 1 VW 2020-09-14 02:30:21 Diana [facility] LIPASE 2020-09-14 02:21:00 Diaan [facility] TROPONIN I 2020-09-14 02:21:00 Diana [facility] HEPATIC FUNCTION PANEL 2020-09-14 02:21:00 Diana Berg [facility] ([id number]) (ALB,T.PRO,BILI Medical Branch T,BU/BC,ALT,AST,ALK PHOS) BASIC METABOLIC PANEL 2020-09-14 02:21:00 Diana Berg [facility] [place] (NA, K, CL, CO2, Medical Branch GLUCOSE, BUN, CREATININE, CA) CBC WITH DIFF 2020-09-14 02:21:00 Diana [facility] N-TERMINAL PRO-BNP 2020-09-14 02:21:00 Diana Berg [facility] COVID-19 (ID NOW RAPID 2020-09-14 02:21:00 Diana [facility] [place] [facility] NOTICE OF PRIVACY 2020-09-14 02:00:22 Doctor Unassigned, No [facility] Name [facility] CONSENT/REFUSAL FOR 2020-09-14 01:58:28 Doctor Unassigned, No Un [facility] [place] DIAGNOSIS AND TREATMENT Name [facility] HEPATIC FUNCTION PANEL 2019-07-28 00:55:00 [facility]angel [facility] ([id number] (ALB,T.PRO,BILI Medical Branch T,BU/BC,ALT,AST,ALK PHOS) BASIC METABOLIC PANEL 2019-07-28 00:55:00 Mariangel Ortega [facility] [place] (NA, K, CL, CO2, Medical Branch GLUCOSE, BUN, CREATININE, CA) CBC WITH DIFFERENTIAL 2019-07-28 00:55:00 Mariangel Ortega [facility] RAPID STREP SCREEN FOR 2019-07-28 00:55:00 Mariangel [facility] A [facility] ADC,CLC OR LCC ONLY - 2019-07-28 00:55:00 Mariangel Ortega [facility] [place] INFLUENZA A & B DIRECT Medical [place] ANTIGEN CBC WITH DIFFERENTIAL 2019-07-28 00:55:00 Mariangel Ortega [facility] XR CHEST 2 VW 2019-07-28 00:28:40 Mariangel Ortega [facility] CONSENT/REFUSAL FOR 2019-07-27 23:47:18 Doctor Unassigned, No Un [facility] [place] DIAGNOSIS AND TREATMENT Name Medical Branch LIPASE 2019-03-11 19:53:00 Sherrill Connor [place] o f [facility] HEPATIC FUNCTION PANEL 2019-03-11 19:53:00 Sherrill Connor [facility] ([id number]) (ALB,T.PRO,BILI [facility] T,BU/BC,ALT,AST,ALK PHOS) BASIC METABOLIC PANEL 2019-03-11 19:53:00 Sherrill Connor [facility] (NA, K, CL, CO2, Medical Branch GLUCOSE, BUN, CREATININE, CA) CBC WITH DIFFERENTIAL 2019-03-11 19:53:00 Sherrill Connor [facility] PROTHROMBIN TIME / INR 2019-03-11 19:53:00 Sherrill Connor [facility] ACTIVATED PARTIAL 2019-03-11 19:53:00 Sherrill Connor [facility] NOTICE OF PRIVACY 2019-03-11 18:56:54 Doctor Unassigned, No Univ [facility] PRACTICES Name [facility] Encounters Start End Encounter Admission Attending Care Care Encounter Source Date/Time Date/Time Type Type Clinicians Facility Department ID 2021-05-06 Emergency [facility] [id number] Univers 05:05:13 ity of [facility] 2023-02-26 2023-02-26 Emergency X OLGA LIDIA Neida [facility] ERT [id number] Univers 15:53:00 17:52:00 ity of [facility] 2023-02-26 2023-02-26 Emergency Olga LidiaNeida [facility] 1.2.840.114 [id number] Univers 15:53:00 17:52:00 Leonarda DENNISON [id number] i ty of [place] [id number] [place] [facility] [id number] [facility] 084 Branch 2022-08-24 2022-08-24 Urgent Susan Lee [facility] [id number] Univers 09:40:00 10:00:00 Care Unknown, Attending HEALTH [id number] [id number] Amandeep as JOCELYN?BLEA [id number] Or dical [address] MEDICAL OFFICE BUILDING 2022-08-24 2022-08-24 Outpatient R TAMIKO [facility] [id number] Univers 09:40:00 09:40:00 SUSAN ity of [facility] 2022-08-24 2022-08-24 Orders Doctor SUSHIL 1.2.840.114 [id number] Univers 00:00:00 00:00:00 Only Unassigned, KIRK [id number] ity of [place] [facility] [id number] Amandeep as [phone] [address] 2022-01-11 2022-01-11 Laboratory Only, Ang Db Test [facility] 1.2.8 40.114 [id number] Univers 13:15:00 13:30:00 Only Monik Charles [facility] [id number] [id number] Amandeep as JOCELYN?BLEA [id number] [address] MEDICAL OFFICE BUILDING 2022-01-11 2022-01-11 Outpatient Torres [facility] [id number] Univers 13:15:00 13:24:38 MONIK delaney [facility] 2022-01-07 2022-01-07 Emergency [facility] [id number] Univers 18:26:00 21:08:00 ALEX garcia [facility] 2022-01-07 2022-01-07 [facility] [id number] Univers 18:26:00 21:08:00 Alex DENNISON [id number] ity of [place] [id number] [facility] [phone] [address] 2022-01-06 2022-01-06 Emergency [facility] [id number] Univers 15:31:00 16:32:00 SHERRILL delaney [facility] 2022-01-06 2022-01-06 Emergency [facility] 1.2.145.432 [id number] Univers 15:31:00 16:32:00 Sherrill DENNISON [id number] i ty of [facility] [id number] [facility] [id number] [address] 2021-09-01 2021-09-01 Emergency X [facility] ERT [id number] Univers 17:59:00 19:56:00 CAMERON delaney [facility] 2021-09-01 2021-09-01 Emergency [facility] 1.2.840.114 [id number] Univers 17:59:00 19:56:00 Cameron DENNISON [id number] i ty of [place] [id number] [id number] [place] [address] [place] 2021-09-01 2021-09-01 Orders Doctor SUSHIL 1.2.840.114 [id number] Univers 00:00:00 00:00:00 Only Unassigned, KIRK [id number] ity of [place] [facility] [id number] [facility] 009 [place] 2021-08-08 2021-08-08 Letter SUSHIL Daniels 1.2.840.114 [id number] Univers 00:00:00 00:00:00 (Out) Nirmala BRADLEY [id number] it y of HOSPITAL [id number] [facility] 019 [place] 2021-08-07 2021-08-07 Emergency X [facility] ERT [id number] Univers 09:58:00 11:43:00 DARIUS delaney of [facility] 2021-08-07 2021-08-07 Emergency [facility] [id number] Univers 09:58:00 11:43:00 Darius BRAGGDORINA [id number] i ty of [place] 4.2.7.2.686 [place] [facility] [phone] [place] [address] [place] 2021-08-07 2021-08-07 Orders Doctor SUSHIL 1.2.840.114 [id number] Univers 00:00:00 00:00:00 Only Unassigned, KIRK [id number] ity of [place] [facility] [id number] [facility] 009 [place] 2021-06-29 2021-06-29 Emergency X OMAIRA [facility] ERT [id number] Univers 16:04:00 19:33:00 JOSE ALEJANDRO delaney [facility] 2021-06-29 2021-06-29 Emergency Omaira [facility] 1.2.840.114 [id number] Univers 16:04:00 19:33:00 Jose Alejandro DENNISON [id number] i ty of [facility] [id number] [facility] [id number] [address] 2021-05-19 2021-05-20 Out[facility] [id number] Univers 17:04:00 17:03:00 MARCELINA delaney [facility] 2021-05-19 2021-05-20 Emergency Neida Duggan Leonarda [facility] 1..840. 114 [id number] Univers 17:04:00 17:03:00 Marcelina Che JESI 350.1.13.10 ity [facility] [id number] [facility] [id number] [address] 2020-09-16 2020-09-16 Outpatient R LUIS MANUEL [facility] [id number] Univers 10:20:00 10:20:00 NICOLE ity [facility] 2020-09-16 2020-09-16 Laboratory Lab, [facility] 1..840.114 [id number] 09:44:15 10:04:15 Only Fam Pob I Health [id number] [place] 4.2.7.2.686 Professio [id number] [place] [address] [address] 2020-09-16 2020-09-16 Laboratory Lab, [facility] Fam Pob I [facility] 1.. 840.114 [id number] Univers 09:44:15 10:04:15 Only Nicole [facility] [id number] ity of [place] 4.2.7.2.686 Amandeep as Professio [phone] Or dical [address] Office [address] 2020-09-13 2020-09-13 Emergency [facility] 1.2.840.114 [id number] 20:05:00 22:24:00 Diana Dennison 350.1.13.10 [place] 4.2.7.2.686 [place] [id number] [facility] 2020-09-13 2020-09-13 Emergency Rohan, [facility] 1.2.840.114 [id number] [facility] 20:05:00 22:24:00 Diana Braggton 350.1.13.10 ity of [place] 4.2.7.2.686 [facility] [id number] [address] 2019-07-27 2019-07-27 Emergency [facility] 1.2.840.114 [id number] 18:07:12 20:13:00 Mariangel Ada Jesi 350.1.13.10 [place] 4.2.7.2.686 [place] [id number] [facility] 2019-07-27 2019-07-27 Emergency [facility] 1.2.840.114 [id number] [facility] 18:07:12 20:13:00 Mariangel Dennison 350.1.13.10 ity of [place] 4.2.7.2.686 [facility] [id number] [address] 2019-07-27 2019-07-27 Orders Doctor LING 1.2.840.114 [id number] 00:00:00 00:00:00 Only Unassigned, KIRK 350.1.13.10 [place] [facility] 4.2.7.2.[id number] [facility] 2019-07-27 2019-07-27 Orders Doctor LING 1.2.840.114 [id number] Univers 00:00:00 00:00:00 Only Unassigned, KIRK 350.1.13.10 ity of [place] [facility] 4.2.7.2.686 Amandeep [id number] [address] 2019-03-11 2019-03-11 Emergency [facility] [id number] 14:05:54 16:45:00 Sherrill Dennison 350.1.13.10 [place] 4.2.7.2.686 [place] [phone] [facility] 2019-03-11 2019-03-11 Emergency [facility] 1.2.715.643 [id number] Univers 14:05:54 16:45:00 Sherrill Dennison 350.1.13.[address] [facility] 4.2.7.2.686 [facility] [id number] [facility] 084 Branch Results Test Description Test Time Test Comments Results Result Comments Source COMP. METABOLIC PANEL (75608) 2023-02-26 22:05:45 Test Item Value Reference Range Interpretation Comme nts NA (test code = 1600112228) 136 mmol/L 135-145 K (test code = 9005281711) 3.7 mmol/L 3.5-5.0 CL (test code = 0541344413) 100 mmol/L 98-108 CO2 TOTAL (test code = 7267999832) 26 mmol/L 23-31 AGAP (test code = 7972238063) 10 2-16 BUN (test code = 9126012689) 11 mg/dL 7-23 GLUCOSE (test code = 2246704596) 123 mg/dL 70-110 H CREATININE (test code = 0.61 mg/dL 0.50-1.04 3631437922) TOTAL BILI (test code = 0.2 mg/dL 0.1-1.4 4963502460) CALCIUM (test code = 7077255870) 9.6 mg/dL 8.6-10.6 T PROTEIN (test code = 9190943130) 7.6 g/dL 6.3-8.2 ALBUMIN (test code = 6787223036) 4.8 g/dL 3.5-5.0 ALK PHOS (test code = 8843313709) 83 U/L 34-122 ALTv (test code = 1742-6) 20 U/L 5-35 AST(SGOT) (test code = 8343794347) 28 U/L 13-40 eGFR (test code = 4866952830) 99.1 mL/min/1.73m2 MADISYN (test code = MADISYN) [...] tests). Lab Interpretation (test code = Abnormal 81846-9) [facility] WITH [id number] 21:53:23 Test Item Value Reference Range Interpretation Comments WBC (test code = 6.64 See_Comment [Automated 7390-2) message] The sy stem which generated this result transmitted reference range : 4.30 - 11.10 10*3/?L. The reference range was not used to interpret this result as normal/abnormal . RBC (test code = 3.46 See_Comment L [Automated 569-8) message] The sy stem which generated this [...] RDW-SD (test code = 42.1 fL 39.0-49.9 47274-8) RDW-CV (test code = 12.9 % 12.0-15.5 788-0) PLT (test code = 274 See_Comment [Automated 777-3) message] The sy stem which generated this result transmitted reference range : 166 - 358 10*3/ ?L. The reference r aiden was not used to interpret this result as normal/abnormal . MPV (test code = 10.4 fL 9.5-12.9 10665-7) NRBC/100 WBC (test 0.0 See_Comment [Automat ed code = 5787372321) message] The system which generated this result transmitted reference range : 0.0 - 10.0 /100 WBCs. The refer ence range was not u sed to interpret th is result as normal/abnormal . NRBC x10^3 (test code See_Comment [Auto mated = 3996706210) message] The s ystem which generated this result transmitted reference range : 10*3/?L. The reference range was not used to interpret this result as normal/abnormal . GRAN MAT (NEUT) % 52.0 % (test code = 770-8) IMM GRAN % (test code 0.50 % = 4061587070) LYMPH % (test code = 34.2 % 736-9) MONO % (test code = 6.8 % 5905-5) EOS % (test code = 6.2 % 713-8) BASO % (test code = 0.3 % 706-2) GRAN MAT x10^3(ANC) 3.46 10*3/uL 1.88-7.09 (test code = 1607933073) IMM GRAN x10^3 (test 0.03 10*3/uL 0.00-0.06 code = 2484938554) LYMPH x10^3 (test code 2.27 10*3/uL 1.32-3.29 = 731-0) MONO x10^3 (test code 0.45 10*3/uL 0.33-0.92 = 742-7) EOS x10^3 (test code = 0.41 10*3/uL 0.03-0.39 H 711-2) BASO x10^3 (test code 0.01-0.07 = 704-7) Lab Interpretation Abnormal (test code = 17026-1) [facility] MOLECULAR [id number] 16:02:31 Test Item Value Reference Range Interpretation Comments POCT Molecular FluA (test code = Negative Negative 42233-8) POCT Molecular FluB (test code = Negative Negative 21670-1) Lab Interpretation (test code = Normal 52362-1) [facility] SARS-COV-2 ANTIGEN (BINAX NOW)2022-08-24 15:52:00 Test Item Value Reference Range Interpretation Comments POCT SARS-COV-2 ANTIGEN (test Not Detected Not Detected code = 59315-9) On board controls acceptable Yes with C Line (test code = 3574) Lab Interpretation (test code = Normal 83739-4) [facility] METABOLIC PANEL ([id number])2021-06-29 23:10:56 Test Item Value Reference Range Interpretation Comments NA (test code = 137 mmol/L 135-145 1151266208) K (test code = 3.9 mmol/L 3.5-5.0 1743950911) CL (test code = 102 mmol/L 98-108 3034532333) CO2 TOTAL (test code = 27 mmol/L 23-31 8299713577) AGAP (test code = 2-16 9391245517) BUN (test code = 10 mg/dL 7-23 1309332036) GLUCOSE (test code = 137 mg/dL 70-110 H 4049515894) CREATININE (test code = 0.69 mg/dL 0.50-1.04 7803108140) TOTAL BILI (test code = 0.5 mg/dL 0.1-1.3 4487472876) CALCIUM (test code = 9.2 mg/dL 8.6-10.6 0084914798) T PROTEIN (test code = 7.7 g/dL 6.3-8.2 0019736309) ALBUMIN (test code = 4.9 g/dL 3.5-5.0 1577271931) ALK PHOS (test code = 73 U/L 34-122 4032210160) ALTv (test code = 15 U/L 5-35 1742-6) AST(SGOT) (test code = 21 U/L 13-40 1623659273) eGFR (test code = mL/min/1.73m2 2378060474) MADISYN (test code = MADISYN) Association of [...] tests). Lab Interpretation Abnormal (test code = 31499-8) [id number] 22:59:27 Test Item Value Reference Interpretation Comments Range TROPONIN I (test 0.001 ng/mL See_Comment [Automated code = 4989099412) message] The system which generated this result [...] biotin. Lab Interpretation Normal (test code = 61917-3) [facility] 22:[facility]29 Test Item Value Reference Range Interpretation Comments LIPASE (test code = 2872529675) 57 U/L 0-220 Lab Interpretation (test code = Normal 41326-2) [facility] WITH [id number] 22:29:28 Test Item Value Reference Range Interpretation Comments WBC (test code = See_Comment [Automated 8190-2) message] The sy stem which generated this result transmitted reference range : 4.30 - 11.10 10*3/?L. The reference range was not used to interpret this result as normal/abnormal . RBC (test code = See_Comment L [Automated 489-8) message] The sy stem which generated this [...] RDW-SD (test code = 43.4 fL 39.0-49.9 45642-3) RDW-CV (test code = 12.7 % 12.0-15.5 788-0) PLT (test code = See_Comment [Automated 297-3) message] The sy stem which generated this result transmitted reference range : 166 - 358 10*3/ ?L. The reference r aiden was not used to interpret this result as normal/abnormal . MPV (test code = 10.7 fL 9.5-12.9 02571-4) NRBC/100 WBC (test See_Comment [Automat ed code = 9129751327) message] The system which generated this result transmitted reference range : 0.0 - 10.0 /100 WBCs. The refer ence range was not u sed to interpret th is result as normal/abnormal . NRBC x10^3 (test code <0.01 See_Comment [Auto mated = 9872472256) message] The s ystem which generated this result transmitted reference range : 10*3/?L. The reference range was not used to interpret this result as normal/abnormal . GRAN MAT (NEUT) % 68.6 % (test code = 770-8) IMM GRAN % (test code 0.40 % = 9210725926) LYMPH % (test code = 22.9 % 736-9) MONO % (test code = 6.3 % 5905-5) EOS % (test code = 1.6 % 713-8) BASO % (test code = 0.2 % 706-2) GRAN MAT x10^3(ANC) 6.89 10*3/uL 1.88-7.09 (test code = 9405964370) IMM GRAN x10^3 (test 0.04 10*3/uL 0.00-0.06 code = 5991567123) LYMPH x10^3 (test code 2.30 10*3/uL 1.32-3.29 = 731-0) MONO x10^3 (test code 0.63 10*3/uL 0.33-0.92 = 742-7) EOS x10^3 (test code = 0.16 10*3/uL 0.03-0.39 711-2) BASO x10^3 (test code <0.03 0.01-0.07 = 704-7) Lab Interpretation Abnormal (test code = 40104-9) [facility]-20 17:33:00 Test Item Value Reference Range Interpretation Comments POCT GLU (test code = 2336313056) 80 mg/dL 70-110 Lab Interpretation (test code = Normal 20843-2) [facility] [id number] 12:36:17 Test Item Value Reference Interpretation Comments Range TROPONIN I (test 0.002 ng/mL See_Comment [Automated code = 4312888680) message] The system which generated this result [...] biotin. Lab Interpretation Normal (test code = 75120-0) [facility] Metabolic Panel (NA, K, CL, CO2, GLUCOSE, BUN, CREATININE, [place])2021-05-20 12:31:20 Test Item Value Reference Range Interpretation Comments NA (test code = 138 mmol/L 135-145 4927793963) K (test code = 4.2 mmol/L 3.5-5.0 3541800229) CL (test code = 106 mmol/L 98-108 1250569805) CO2 TOTAL (test code = 25 mmol/L 23-31 1796203289) AGAP (test code = 2-16 7810672952) BUN (test code = 12 mg/dL 7-23 2205212028) GLUCOSE (test code = 146 mg/dL 70-110 H 4248412026) CREATININE (test code = 0.62 mg/dL 0.50-1.04 5568806163) CALCIUM (test code = 10.0 mg/dL 8.6-10.6 4124104870) eGFR (test code = mL/min/1.73m2 9986620670) MADISYN (test code = MADISYN) Association of [...] tests). Lab Interpretation Abnormal (test code = 42819-8) [facility] with [id number] 11:49:32 Test Item Value Reference Range Interpretation Comments WBC (test code = See_Comment [Automated 1279-2) message] The sy stem which generated this result transmitted reference range : 4.30 - 11.10 10*3/?L. The reference range was not used to interpret this result as normal/abnormal . RBC (test code = See_Comment L [Automated 801-8) message] The sy stem which generated this [...] RDW-SD (test code = 40.3 fL 39.0-49.9 68915-7) RDW-CV (test code = 11.9 % 12.0-15.5 L 788-0) PLT (test code = See_Comment [Automated 777-3) message] The sy stem which generated this result transmitted reference range : 166 - 358 10*3/ ?L. The reference r aiden was not used to interpret this result as normal/abnormal . MPV (test code = 11.3 fL 9.5-12.9 71523-1) NRBC/100 WBC (test See_Comment [Automat ed code = 8293620242) message] The system which generated this result transmitted reference range : 0.0 - 10.0 /100 WBCs. The refer ence range was not u sed to interpret th is result as normal/abnormal . NRBC x10^3 (test code <0.01 See_Comment [Auto mated = 1714301361) message] The s ystem which generated this result transmitted reference range : 10*3/?L. The reference range was not used to interpret this result as normal/abnormal . GRAN MAT (NEUT) % 59.9 % (test code = 770-8) IMM GRAN % (test code 0.50 % = 4344866392) LYMPH % (test code = 30.0 % 736-9) MONO % (test code = 6.4 % 5905-5) EOS % (test code = 2.9 % 713-8) BASO % (test code = 0.3 % 706-2) GRAN MAT x10^3(ANC) 3.72 10*3/uL 1.88-7.09 (test code = 5391244709) IMM GRAN x10^3 (test 0.03 10*3/uL 0.00-0.06 code = 8108801394) LYMPH x10^3 (test code 1.86 10*3/uL 1.32-3.29 = 731-0) MONO x10^3 (test code 0.40 10*3/uL 0.33-0.92 = 742-7) EOS x10^3 (test code = 0.18 10*3/uL 0.03-0.39 711-2) BASO x10^3 (test code <0.03 0.01-0.07 = 704-7) Lab Interpretation Abnormal (test code = 74483-5) [facility] [id number] 02:24:28 Test Item Value Reference Interpretation Comments Range TROPONIN I (test 0.003 ng/mL See_Comment [Automated code = 1060293971) message] The system which generated this result [...] biotin. Lab Interpretation Normal (test code = 27570-2) [facility] Test Item Value Reference Range Interpretation Comments MAGNESIUM (test code = 1916821841) 1.9 mg/dL 1.7-2.4 Lab Interpretation (test code = Normal 22713-7) [facility] [id number] 00:20:03 Test Item Value Reference Interpretation Comments Range TROPONIN I (test 0.002 ng/mL See_Comment [Automated code = 6801019408) message] The system which generated this result [...] biotin. Lab Interpretation Normal (test code = 43163-5) [facility]. METABOLIC PANEL (81459)2021-05-20 00:09:00 Test Item Value Reference Range Interpretation Comments NA (test code = 139 mmol/L 135-145 2733563103) K (test code = 3.9 mmol/L 3.5-5.0 4676505170) CL (test code = 101 mmol/L 98-108 2923301114) CO2 TOTAL (test code = 28 mmol/L 23-31 2680895230) AGAP (test code = 2-16 3848134170) BUN (test code = 13 mg/dL 7-23 9758824418) GLUCOSE (test code = 143 mg/dL 70-110 H 2318800287) CREATININE (test code = 0.68 mg/dL 0.50-1.04 7747252247) TOTAL BILI (test code = 0.4 mg/dL 0.1-1.5 6587863868) CALCIUM (test code = 10.4 mg/dL 8.6-10.6 7101289383) T PROTEIN (test code = 8.0 g/dL 6.3-8.2 8697773321) ALBUMIN (test code = 5.0 g/dL 3.5-5.0 9726407919) ALK PHOS (test code = 93 U/L 34-122 8752246605) ALTv (test code = 21 U/L 5-35 1742-6) AST(SGOT) (test code = 31 U/L 13-40 9574163845) eGFR (test code = mL/min/1.73m2 2475699032) MADISYN (test code = MADISYN) Association of [...] tests). Lab Interpretation Abnormal (test code = 33715-8) [facility]20 Test Item Value Reference Range Interpretation Comments LIPASE (test code = 6996621117) 66 U/L 0-220 Lab Interpretation (test code = Normal 76419-7) [facility]21[facility]14 00:06:19 Test Item Value Reference Range Interpretation Comments APTT Patient (test See_Comment [Automat ed code = 3173-2) message] The system which generated this result transmitted reference range : 23 - 38 Seconds . The reference range was not used to interpr et this result as normal/abnormal . MADISYN (test code = MADISYN) The [facility] patient population mean normal value for aPTT is 30 seconds. Lab Interpretation Normal (test code = 56148-6) [facility]anoPROTHROM[facility] / [id number] 00:04:19 Test Item Value Reference Range Interpretation [...] tions. Lab Interpretation (test Normal code = 06728-8) [facility] WITH [id number] 23:55:39 Test Item Value Reference Range Interpretation Comments WBC (test code = See_Comment [Automated 7290-2) message] The sy stem which generated this [...] RDW-SD (test code = 40.4 fL 39.0-49.9 11930-7) RDW-CV (test code = 11.9 % 12.0-15.5 L 788-0) PLT (test code = See_Comment [Automated 777-3) message] The sy stem which generated this result transmitted reference range : 166 - 358 10*3/ ?L. The reference r aiden was not used to interpret this result as normal/abnormal . MPV (test code = 11.0 fL 9.5-12.9 03842-0) NRBC/100 WBC (test See_Comment [Automat ed code = 1153612093) message] The system which generated this result transmitted reference range : 0.0 - 10.0 /100 WBCs. The refer ence range was not u sed to interpret th is result as normal/abnormal . NRBC x10^3 (test code <0.01 See_Comment [Auto mated = 4242154417) message] The s ystem which generated this result transmitted reference range : 10*3/?L. The reference range was not used to interpret this result as normal/abnormal . GRAN MAT (NEUT) % 53.4 % (test code = 770-8) IMM GRAN % (test code 0.60 % = 3220302440) LYMPH % (test code = 36.2 % 736-9) MONO % (test code = 6.4 % 5905-5) EOS % (test code = 3.3 % 713-8) BASO % (test code = 0.1 % 706-2) GRAN MAT x10^3(ANC) 3.58 10*3/uL 1.88-7.09 (test code = 0080442330) IMM GRAN x10^3 (test 0.04 10*3/uL 0.00-0.06 code = 9969247134) LYMPH x10^3 (test code 2.43 10*3/uL 1.32-3.29 = 731-0) MONO x10^3 (test code 0.43 10*3/uL 0.33-0.92 = 742-7) EOS x10^3 (test code = 0.22 10*3/uL 0.03-0.39 711-2) BASO x10^3 (test code <0.03 0.01-0.07 = 704-7) Lab Interpretation Abnormal (test code = 54621-3) [facility] 03:27:11 Test Item Value Reference Range Interpretation Comments APPEARANCE (test code = Clear Clear 3439911808) COLOR (test code = Straw Yellow A 8568983136) PH (test code = 4.8-8.0 0349989238) SP GRAVITY (test code = 1.003-1.030 6561452710) GLU U QUAL (test code = 500 mg/dL Normal A 4388176721) BLOOD (test code = Negative Negative 9760692116) KETONES (test code = Negative Negative 9676725882) PROTEIN (test code = Negative Negative 2887-8) UROBILIN (test code = Normal Normal 0244438957) BILIRUBIN (test code = Negative Negative 5131809957) NITRITE (test code = Negative Negative 3976850243) LEUK KEVEN (test code = 25/uL Negative A 6161136814) RBC/HPF (test code = See_Comment [Autom ated message] 1635910591) The system [employer] generated this result transmit zoila reference range : 0 - 3 HPF. The refe rence range was not u sed to interpret th is result as normal/abnormal . WBC/HPF (test code = See_Comment [Autom ated message] 4210030706) The system [employer] generated this result transmit zoila reference range : 0 - 5 HPF. The refe rence range was not u sed to interpret th is result as normal/abnormal . BACTERIA (test code = Negative Negative 1099299106) MUCOUS (test code = Slight Negative LPF A 6254755792) SQ EPITH (test code = HPF 9007996363) Lab Interpretation (test Abnormal code = 69587-2) [facility] [id number] 03:00:28 Test Item Value Reference Range Interpretation Comments TROPONIN I (test <0.012 See_Comment [Automated code = 3625460032) message] The system which generated this result [...] ? Lab Interpretation Normal (test code = 76307-8) [facility]MINAL [id number] 02:57:10 Test Item Value Reference Range Interpretation Comments NT-proBNP (test code 25 pg/mL See_Comment [Autom ated = 8458852691) message] The system which generated this result transmitted reference range : <=125. The reference range was not used to interpret this result as normal/abnormal . MADISYN (test code = MADISYN) Biotin has been reported to cause a negative bias, interpret results relative to patient's use of biotin. Lab Interpretation Normal (test code = 90944-2) [facility] (NA, K, CL, CO2, GLUCOSE, BUN, CREATININE, CA)2020-09-14 02:48:49 Test Item Value Reference Range Interpretation Comments NA (test code = 135 mmol/L 135-145 9671063263) K (test code = 3.6 mmol/L 3.5-5.0 3195012173) CL (test code = 101 mmol/L 98-108 2137104948) CO2 TOTAL (test code = 23 mmol/L 23-31 2792973060) AGAP (test code = 2-16 2477482969) BUN (test code = 10 mg/dL 7-23 7005535537) GLUCOSE (test code = 296 mg/dL 70-110 H 2775499804) CREATININE (test code = 0.62 mg/dL 0.50-1.04 7239282799) CALCIUM (test code = 9.7 mg/dL 8.6-10.6 1215180235) eGFR Calculation mL/min/1.73m2 (Non-) (test code = 3114071334) eGFR Calculation mL/min/1.73m2 () (test code = 7205320461) MADISYN (test code = MADISYN) Association of [...] tests). Lab Interpretation Abnormal (test code = 85463-3) [facility] (ALB, T.PRO, BILI T, BU/BC, ALT, AST, ALK PHOS)2020-09-14 02:48:48 Test Item Value Reference Range Interpretation Comments TOTAL BILI (test code = 0562697326) 0.4 mg/dL 0.1-1.1 BILI UNCON (test code = 6813109020) 0.4 mg/dL 0.1-1.1 BILI CONJ (test code = 4887095231) 0.0 mg/dL 0.0-0.3 T PROTEIN (test code = 8596823658) 7.7 g/dL 6.3-8.2 ALBUMIN (test code = 9719045562) 5.0 g/dL 3.5-5.0 ALK PHOS (test code = 2763026214) 78 U/L 34-122 ALTv (test code = 1742-6) 19 U/L 5-35 AST(SGOT) (test code = 9468642129) 25 U/L 13-40 Lab Interpretation (test code = Normal 29650-9) [facility]anoLip[facility] [id number] 02:48:48 Test Item Value Reference Range Interpretation Comments LIPASE (test code = 5818004549) 38 U/L 0-220 Lab Interpretation (test code = Normal 60963-1) [facility]OVID[facility] (ID NOW RAPID TESTING)2020-09-14 02:36:29 Test Item Value Reference Range Interpretation Comments SARS-CoV-2 Rapid ID NOW Positive Not Detected A (test code = 01219-2) MADISYN (test code = MADISYN) ID NOW COVID-19 Assay is an isothermal nucleic acid amplification test intended for the qualitative detection of nucleic acid from SARS-CoV-2 viral RNA in nasopharyngeal (ROOFER GYPSUM) specimens. It is used under Emergency Use [...] indicated. Lab Interpretation Abnormal (test code = 86829-3) [facility]CBC with [id number] 02:30:06 Test Item Value Reference Range Interpretation Comments WBC (test code = See_Comment [Automated message] 6690-2) The system [employer] generated this result transmitted ref erence range: 4.30 - 1 1.10 10*3/?L. The re ference range was not u sed to interpret this result as normal/abnor mal. RBC (test code = See_Comment [Automated message] 789-8) The system [employer] generated this result transmitted ref erence range: [...] RDW-SD (test code 41.8 fL 39.0-49.9 = 47704-7) RDW-CV (test code 12.8 % 12.0-15.5 = 788-0) PLT (test code = See_Comment [Automated message] 777-3) The system whic h generated this result transmitted ref erence range: 166 - 35 8 10*3/?L. The re ference range was not u sed to interpret this result as normal/abnor mal. MPV (test code = 11.2 fL 9.5-12.9 69668-4) NRBC/100 WBC (test See_Comment [Automat ed message] code = 3467213635) The syste m which generated this result transmitted ref erence range: 0.0 - 10 .0 /100 WBCs. The refer ence range was not u sed to interpret this result as normal/abnor mal. NRBC x10^3 (test <0.01 See_Comment [Automated message] code = 8909380582) The syste m which generated this result transmitted ref erence range: 10*3/?L. The reference range was not used to interpr et this result as normal/abnormal . GRAN MAT (NEUT) % 54.0 % (test code = 770-8) IMM GRAN % (test 0.70 % code = 2684139725) LYMPH % (test code 36.2 % = 736-9) MONO % (test code 6.0 % = 5905-5) EOS % (test code = 2.8 % 713-8) BASO % (test code 0.3 % = 706-2) GRAN MAT 3.13 10*3/uL 1.88-7.09 x10^3(ANC) (test code = 7323021678) IMM GRAN x10^3 0.04 10*3/uL 0.00-0.06 (test code = 3534569650) LYMPH x10^3 (test 2.10 10*3/uL 1.32-3.29 code = 731-0) MONO x10^3 (test 0.35 10*3/uL 0.33-0.92 code = 742-7) EOS x10^3 (test 0.16 10*3/uL 0.03-0.39 code = 711-2) BASO x10^3 (test <0.03 0.01-0.07 code = 704-7) [facility] WITH [id number] 01:35:00 Test Item Value Reference Range Interpretation Comments WBC (test code = See_Comment [Automated 3061-2) message] The sy stem which generated this result transmitted reference range : 4.30 - 11.10 10*3/?L. The reference range was not used to interpret this result as normal/abnormal . RBC (test code = See_Comment [Automated 449-8) message] The sy stem which [...] RDW-SD (test code = 40.8 fL 39-49.9 49608-2) RDW-CV (test code = 12.5 % 12-15.5 788-0) PLT (test code = See_Comment [Automated 777-3) message] The sy stem which generated this result transmitted reference range : 166 - 358 10*3/ ?L. The reference r aiden was not used to interpret this result as normal/abnormal . MPV (test code = 11.0 fL 9.5-12.9 83488-3) IPF % (test code = 5.7 % 1.3-7.7 Platelet count 9783672769) measured by fluorescence method. NRBC/100 WBC (test See_Comment [Automat ed code = 2425954982) message] The system which generated this result transmitted reference range : 0.0 - 10.0 /100 WBCs. The refer ence range was not u sed to interpret th is result as normal/abnormal . NRBC x10^3 (test code <0.01 See_Comment [Auto mated = 4349580107) message] The s ystem which generated this result transmitted reference range : 10*3/?L. The reference range was not used to interpret this result as normal/abnormal . GRAN MAT (NEUT) % 60.2 % (test code = 770-8) IMM GRAN % (test code 1.60 % = 9757305217) LYMPH % (test code = 29.4 % 736-9) MONO % (test code = 6.2 % 5905-5) EOS % (test code = 2.3 % 713-8) BASO % (test code = 0.3 % 706-2) GRAN MAT x10^3(ANC) 5.31 10*3/uL 1.88-7.09 (test code = 7167938126) IMM GRAN x10^3 (test 0.14 10*3/uL 0-0.06 H code = 1370556513) LYMPH x10^3 (test code 2.59 10*3/uL 1.32-3.29 = 731-0) MONO x10^3 (test code 0.55 10*3/uL 0.33-0.92 = 742-7) EOS x10^3 (test code = 0.20 10*3/uL 0.03-0.39 711-2) BASO x10^3 (test code 0.03 10*3/uL 0.01-0.07 = 704-7) Lab Interpretation Abnormal (test code = 50421-4) [facility] OR [facility] - INFLUENZA A & B DIRECT [id number] 01:26:00 Test Item Value Reference Range Interpretation Comments Influenza A (test code = 71153-0) Negative Negative Influenza B (test code = 23998-6) Negative Negative Lab Interpretation (test code = Normal 43811-3) [facility] Metabolic Panel (NA, K, CL, CO2, GLUCOSE, BUN, CREATININE, CA)2019-07-28 01:21:00 Test Item Value Reference Range Interpretation Comments NA (test code = 137 mmol/L 135-145 9922736374) K (test code = 3.8 mmol/L 3.5-5 9613773990) CL (test code = 100 mmol/L 98-108 8306630278) CO2 TOTAL (test code = 24 mmol/L 23-31 6979514552) AGAP (test code = 2-16 5597895748) BUN (test code = 13 mg/dL 7-23 7413638641) GLUCOSE (test code = 245 mg/dL 70-110 H 7342203725) CREATININE (test code = 0.49 mg/dL 0.5-1.04 L 0867575421) CALCIUM (test code = 9.8 mg/dL 8.6-10.6 5840248189) eGFR Calculation mL/min/1.73m2 (Non-) (test code = 8477731399) eGFR Calculation mL/min/1.73m2 () (test code = 8150936509) MADISYN (test code = MADISYN) Association of [...] tests). Lab Interpretation Abnormal (test code = 54118-6) [facility] (ALB, T.PRO, BILI T, BU/BC, ALT, AST, ALK PHOS)2019-07-28 01:21:00 Test Item Value Reference Range Interpretation Comments TOTAL BILI (test code = 7511306915) 0.3 mg/dL 0.1-1.1 BILI UNCON (test code = 8285467271) 0.1 mg/dL 0.1-1.1 BILI CONJ (test code = 6892990514) 0.0 mg/dL 0-0.3 T PROTEIN (test code = 0304077620) 8.2 g/dL 6.3-8.2 ALBUMIN (test code = 8260293662) 5.0 g/dL 3.5-5 ALK PHOS (test code = 9592688032) 121 U/L 34-122 ALTv (test code = 1742-6) 33 U/L 5-35 AST(SGOT) (test code = 9605371707) 30 U/L 13-40 Lab Interpretation (test code = Normal 41237-4) [facility]anoRAPID STREP SCREEN FOR GROUP [id number] 01:19:00 Test Item Value Reference Range Interpretation Comments Streptococcus pyogenes (group A) Negative Negative antigen (test code = 63461-0) Lab Interpretation (test code = Normal 67338-0) [facility] 2 [id number] 00:53:20Impression: No acute cardiopulmonary changes. Small sized [...] are unremarkable. Smallsized hiatal hernia is present. [facility], Radiant Results Inft User - [...] reviewed this study and agree withthe above report.[facility] (NA, K, CL, CO2, GLUCOSE, BUN, CREATININE, CA)2019-03-11 20:52:00 Test Item Value Reference Range Interpretation Comments NA (test code = 141 mmol/L 135-145 [id number]) K (test code = 3.6 mmol/L 3.5-5 2403121501) CL (test code = 104 mmol/L 98-108 1262772255) CO2 TOTAL (test code = 24 mmol/L 23-31 7864418603) AGAP (test code = 2-16 3212713373) BUN (test code = 19 mg/dL 7-23 5919098701) GLUCOSE (test code = 161 mg/dL 70-110 H [id number]) CREATININE (test code = 0.51 mg/dL 0.5-1.04 7967087154) CALCIUM (test code = 9.4 mg/dL 8.6-10.6 4382335145) eGFR Calculation mL/min/1.73m2 (Non-) (test code = 0931149796) eGFR Calculation mL/min/1.73m2 () (test code = 2645408414) MADISYN (test code = MADISYN) Association of [...] tests). Lab Interpretation Abnormal (test code = 21746-3) [facility] (ALB, T.PRO, BILI T, BU/BC, ALT, AST, ALK PHOS)2019-03-11 20:52:00 Test Item Value Reference Range Interpretation Comments TOTAL BILI (test code = 2615398040) 0.6 mg/dL 0.1-1.1 BILI UNCON (test code = 1378839196) 0.5 mg/dL 0.1-1.1 BILI CONJ (test code = 5384747335) 0.0 mg/dL 0-0.3 T PROTEIN (test code = 4360958064) 7.7 g/dL 6.3-8.2 ALBUMIN (test code = 2326062770) 4.9 g/dL 3.5-5 ALK PHOS (test code = 7493783381) 61 U/L 34-122 ALT(SGPT) (test code = 9262403713) 26 U/L 9-51 AST(SGOT) (test code = 6086971410) 28 U/L 13-40 Lab Interpretation (test code = Normal 43270-5) [facility] [id number] 20:52:00 Test Item Value Reference Range Interpretation Comments LIPASE (test code = 6711754431) 22 U/L 0-220 Lab Interpretation (test code = Normal 32775-2) [facility]2019-09-05 20:40:00 Test Item Value Reference Range Interpretation Comments APTT Patient (test See_Comment L [Automat ed code = 3173-2) message] The system which generated this result transmitted reference range : 23 - 38 Seconds . The reference range was not used to interpr et this result as normal/abnormal . MADISYN (test code = MADISYN) The [facility] patient population mean normal value for aPTT is 30 seconds. Lab Interpretation Abnormal (test code = 90275-9) [facility] Time (PT) / [id number] 20:38:00 Test Item Value Reference Range Interpretation [...] tions. Lab Interpretation (test Normal code = 79258-8) [facility]CBC WITH [id number] 20:33:00 Test Item Value Reference Range Interpretation Comments WBC (test code = See_Comment [Automated 9390-2) message] The sy stem which generated this result transmitted reference range : 4.30 - 11.10 10*3/?L. The reference range was not used to interpret this result as normal/abnormal . RBC (test code = See_Comment [Automated 319-8) message] The sy stem which [...] RDW-SD (test code = 44.3 fL 39-49.9 64111-3) RDW-CV (test code = 12.9 % 12-15.5 788-0) PLT (test code = See_Comment [Automated 777-3) message] The sy stem which generated this result transmitted reference range : 166 - 358 10*3/ ?L. The reference r aiden was not used to interpret this result as normal/abnormal . MPV (test code = 10.9 fL 9.5-12.9 99704-7) NRBC/100 WBC (test See_Comment [Automat ed code = 2035945861) message] The system which generated this result transmitted reference range : 0.0 - 10.0 /100 WBCs. The refer ence range was not u sed to interpret th is result as normal/abnormal . NRBC x10^3 (test code <0.01 See_Comment [Auto mated = 1494722899) message] The s ystem which generated this result transmitted reference range : 10*3/?L. The reference range was not used to interpret this result as normal/abnormal . GRAN MAT (NEUT) % 86.3 % (test code = 770-8) IMM GRAN % (test code 0.50 % = 7764968141) LYMPH % (test code = 8.8 % 736-9) MONO % (test code = 4.0 % 5905-5) EOS % (test code = 0.2 % 713-8) BASO % (test code = 0.2 % 706-2) GRAN MAT x10^3(ANC) 8.24 10*3/uL 1.88-7.09 H (test code = 5358187655) IMM GRAN x10^3 (test 0.05 10*3/uL 0-0.06 code = 8804430398) LYMPH x10^3 (test code 0.84 10*3/uL 1.32-3.29 L = 731-0) MONO x10^3 (test code 0.38 10*3/uL 0.33-0.92 = 742-7) EOS x10^3 (test code = <0.03 0.03-0.39 L 711-2) BASO x10^3 (test code <0.03 0.01-0.07 = 704-7) Lab Interpretation Abnormal (test code = 24097-1) [facility] Notes Date/Time Note Provider Source 2023-02-26 17:51:24 5664-15-38O76:51:24Formatting of Lynsey covington RN [facility] this note might be different from the original.PT also refused dc vitals [address]5988-0Kbkk[address]ete[address] VgcdWF0274-72-06A73:51:40[facility] NoteTXT1.2.840.036385.1.13.104.2.7 .2.677160|[id number] for patient sbkm65268-5UnoyHX462923415Qkivk Y Khan RN[id number] 29MPOFREABFSCJCEXAYDBLMQ0266-43-50 T17:51:401.2.840.485064.1.72.3.15| 1.2.840.529152.1.13.104.2.7.2.7278 [id number] 2023-02-26 17:48:45 2507-87-15C21:48:45Formatting of [facility] this note might be different from the original.Pt given printed and verbal discharge instructions regarding dysphagia, pt signed the dc paper and threw at nurses's face. Pt did not take her dc paper upon discharge and left the room.Pt was given full explanation of her condition by PAC Leonarda, prior to discharge. [address]243-2Kdosyljuh[address] ZpswDD9146-31-46O86:51:06[facility] NoteTXT1.2.840.635348.1.13.104.2.7 .2.222986|[id number] for patient hmsw54798-8FlwyBJIBOLXSIB[id number] 58FNNZNTJNGXFWSXYIVUZZDR5497-65-09 T17:51:061.2.840.135187.1.72.3.15| 1.2.840.331624.1.13.104.2.7.2.7278 [id number] 2023-02-26 15:36:27 2212-66-45T50:36:27Formatting of Lina jones RN [facility] this note might be different from the original.Pt to ed with 32 oz soda. Alert and ambulatory via pov. Vss. C/o difficulty swallowing since January 12 after falling. Has been dealing with same issue since then with no worsening of condition. States that liquids are worse and has had aspiration PNA. Has seen primary doctor about concerns. Went to neurologist yesterday.no new concerns. Denies any other symptoms at this time. 26718-1Dogjyprrg department Triage ivdfVY3709-25-01U88:40:29[facility] Triage noteTXT1.2.840.725391.1.13.104.2.7 .2.373216|[id number] for patient gxaq47019-4Palcmzjol department [id number] A Paul RNUT[address] OpjgNyvbzdasyMmlqgtkohNLZT69458005 59IQUCSQSPCUOVALZOCUJIDE1674-13-92 T15:40:291.2.840.442077.1.72.3.15| 1.2.840.280173.1.13.104.2.7.2.7278 [id number]"
[2023-06-07] MEDS ORDERED: TRAMADOL HCL 50 MG TAB ONE (15:53)
--- NOTE | 2023-06-07 17:02 | RAD REPORT ---
EXAM DESCRIPTION: RAD - Foot Left 3 View - 06/07/2023 4:55 pm CLINICAL HISTORY: SMASH INJURY COMPARISON: <Comparisons> FINDINGS: Small plantar calcaneal spur. Mild soft tissue swelling affects the second toe. No acute f racture or dislocation.
--- NOTE | 2023-06-07 17:04 | ER ---
Nurse's Notes [facility] Name: Dolores Pérez Age: 63 yrs Sex: Female : 1960 Arrival Date: 06/07/2023 Time: 15:03 Bed 12 Private MD: Diagnosis: Sprain of toe Presentation: 06/07 15:28 Chief complaint: Patient states: Pain to the 2nd toe on left foot. Pt states that she cm10 has iced her toe and marley taped and it is still having pain. Coronavirus screen: Vaccine status: Patient reports receiving the 2nd dose of the covid vaccine. Client denies travel out of the [place] in the last 14 days. Ebola Screen: Patient denies travel to an Ebola-affected area in the 21 days before illness onset. No symptoms or risks identified at this time. Initial Sepsis Screen: Does the patient meet any 2 criteria? No. Patient's initial sepsis screen is negative. Does the patient have a suspected source of infection? No. Patient's initial sepsis screen is negative. Risk Assessment: Do you want to hurt yourself or someone else? Patient reports no desire to harm self or others. Onset of symptoms was June 07, 2023. 15:28 Method Of Arrival: Wheelchair cm10 15:28 Acuity: AARON 4 cm10 Triage Assessment: 15:30 General: Appears in no apparent distress. comfortable, Behavior is calm, cooperative. cm10 Pain: Complains of pain in left second toe. EENT: No deficits noted. No signs and/or symptoms were reported regarding the EENT system. Neuro: No deficits noted. Level of Consciousness is awake, alert, obeys commands, Oriented to person, place, time, situation. Cardiovascular: No deficits noted. Patient's skin is warm and dry. Respiratory: No deficits noted. Airway is patent Respiratory effort is even, unlabored, Respiratory pattern is regular, symmetrical. GI: No deficits noted. No signs and/or symptoms were reported involving the gastrointestinal system. : No deficits noted. No signs and/or symptoms were reported regarding the genitourinary system. Derm: No deficits noted. Skin is intact, Skin is pink, warm \T\ dry. Musculoskeletal: Reports pain in left second toe. Injury Description: Pt states that her great toe over laps her 2nd toe and she is having pain after her toe got stuck. Historical: - Allergies: 15:30 NSAIDS; cm10 15:30 peanuts; cm10 15:30 Prednisone; cm10 15:30 sesame seed; cm10 15:30 Sulfa (Sulfonamide Antibiotics); cm10 15:30 Oranges; cm10 15:30 Grapes; cm10 - PMHx: 15:30 Anxiety; Asthma; COPD; depressive disorder; diabetes mellitus; High Cholesterol; cm10 Hypertension; Hypothyroidism; Transient cerebral ischemia; - Immunization history:: Adult Immunizations unknown. - Social history:: Smoking status: Patient denies any tobacco usage or history of. Screenin:32 [facility] ED Fall Risk Assessment (Adult) History of falling in the last 3 months, cm10 including since admission No falls in past 3 months (0 pts) Confusion or Disorientation No (0 pts) Intoxicated or Sedated No (0 pts) Impaired Gait Yes (1 pt) Mobility Assist Device Used Yes (1 pt) Altered Elimination No (0 pt) Score/Fall Risk Level 0 - 2 = Low Risk Oriented to surroundings, Maintained a safe environment, Hourly rounding (assess needs \T\ fall precautionary measures) done. Abuse screen: Denies threats or abuse. Denies injuries from another. Nutritional screening: No deficits noted. Tuberculosis screening: No symptoms or risk factors identified. Assessment: 16:09 Reassessment: See triage assessment. cm10 17:14 Reassessment: Patient and/or family updated on plan of care and expected duration. Pain cm10 level reassessed. Patient is alert, oriented x 3, equal unlabored respirations, skin warm/dry/pink. Patient states symptoms have improved. Vital Signs: 15:28 BP 143 / 68; Pulse 79; Resp 18 S; Temp 97.5; Pulse Ox 100% on R/A; Weight 56.7 kg; cm10 Height 5 ft. 7 in. ; Pain 9/10; 15:28 Body Mass Index 19.58 (56.70 kg, 170.18 cm) cm10 15:28 Pain Scale: Adult cm10 ED Course: 15:05 Patient arrived in ED. mr 15:29 [facility] 15:29 Feng Tian MD is Attending Physician. [facility] 15:30 Triage completed. cm10 15:32 Arm band placed on Patient placed in an exam room, on a stretcher. cm10 15:32 Patient has correct armband on for positive identification. Bed in low position. Call cm10 light in reach. Provided Education on: ER process and procedures.. 15:32 No provider procedures requiring assistance completed. cm10 15:45 Sabina Mancia, RN is Primary Nurse. cm10 16:09 Cardiac monitoring not applicable on this patient. cm10 16:57 XRAY Foot LEFT 3 View In Process Unspecified. EDMS 17:14 Patient did not have IV access during this emergency room visit. cm10 Administered Medications: 15:47 Drug: traMADol PO 50 mg PO once Route: PO; cm10 17:14 Follow up: Response: No adverse reaction cm10 Medication: 15:32 VIS not applicable for this client. cm10 Outcome: 17:04 Discharge ordered by . jimmy 17:14 Discharged to home via wheelchair, cm10 17:14 Condition: good 17:14 Discharge instructions given to patient, Instructed on discharge instructions, follow up and referral plans. Demonstrated understanding of instructions, follow-up care, 17:15 Patient left the ED. cm10 Signatures: Dispatcher [employer] EDNM Cherise Edmond, Reg Reg mr Minnie Edwards, TIMBER SIZER OPERATOR TIMBER SIZER OPERATOR Sabina Mckee, RN RN cm10
--- NOTE | 2023-06-07 17:04 | EDPHYS ---
Physician Documentation [facility] Name: Dolores Pérez Age: 63 yrs Sex: Female : 1960 Arrival Date: 06/07/2023 Time: 15:03 Bed 12 Private MD: ED Physician Feng Tian HPI: 06/07 15:28 This 63 yrs old Female presents to ER via Wheelchair with complaints of Foot Injury. jh7 15:28 The patient presents with an injury. The complaints affect the left second toe. jh7 Context: The problem was sustained at home, resulted from the patient tripping, on the edge of a carpet, the patient can fully bear weight, the patient is able to ambulate, Problem is a result from a previous injury: No. Onset: The symptoms/episode began/occurred acutely. Associated signs and symptoms: Pertinent negatives fever, nausea, numbness, tingling, vomiting. Treatment prior to arrival includes: prescription medications, codeine. Historical: - Allergies: 15:30 NSAIDS; cm10 15:30 peanuts; cm10 15:30 Prednisone; cm10 15:30 sesame seed; cm10 15:30 Sulfa (Sulfonamide Antibiotics); cm10 15:30 Oranges; cm10 15:30 Grapes; cm10 - PMHx: 15:30 Anxiety; Asthma; COPD; depressive disorder; diabetes mellitus; High Cholesterol; cm10 Hypertension; Hypothyroidism; Transient cerebral ischemia; - Immunization history:: Adult Immunizations unknown. - Social history:: Smoking status: Patient denies any tobacco usage or history of. ROS: 15:28 Constitutional: Negative for fever, chills, and weight loss, Eyes: Negative for injury, jh7 pain, redness, and discharge, Neck: Negative for injury, pain, and swelling, Cardiovascular: Negative for chest pain, palpitations, and edema, Respiratory: Negative for shortness of breath, cough, wheezing, and pleuritic chest pain, Abdomen/GI: Negative for abdominal pain, nausea, vomiting, diarrhea, and constipation, Back: Negative for injury and pain, Skin: Negative for injury, rash, and discoloration, Neuro: Negative for headache, weakness, numbness, tingling, and seizure, 15:28 MS/extremity: Positive for pain, swelling, tenderness, of the left second toe, 15:28 All other systems are negative, Exam: 15:28 Constitutional: This is a well developed, well nourished patient who is awake, alert, jh7 and in no acute distress. Head/Face: Normocephalic, atraumatic. Neck: Trachea midline, no thyromegaly or masses palpated, and no cervical lymphadenopathy. Supple, full range of motion without nuchal rigidity, or vertebral point tenderness. No Meningismus. Cardiovascular: Regular rate and rhythm with a normal S1 and S2. No gallops, murmurs, or rubs. Normal PMI, no JVD. No pulse deficits. Respiratory: Lungs have equal breath sounds bilaterally, clear to auscultation and percussion. No rales, rhonchi or wheezes noted. No increased work of breathing, no retractions or nasal flaring. Abdomen/GI: Soft, non-tender, with normal bowel sounds. No distension or tympany. No guarding or rebound. No evidence of tenderness throughout. Skin: Warm, dry with normal turgor. Normal color with no rashes, no lesions, and no evidence of cellulitis. Neuro: Awake and alert, GCS 15, oriented to person, place, time, and situation. Normal gait. 15:28 Musculoskeletal/extremity: Extremities: noted in the left second toe: swelling, tenderness, ROM: limited active range of motion due to pain, in the left second toe, Circulation is intact in all extremities. Pulses: are normal with no appreciated deficits, Perfusion: the extremity is normally perfused throughout, pink, warm, with brisk capillary refill, Sensation intact. Vital Signs: 15:28 BP 143 / 68; Pulse 79; Resp 18 S; Temp 97.5; Pulse Ox 100% on R/A; Weight 56.7 kg; cm10 Height 5 ft. 7 in. ; Pain 9/10; 15:28 Body Mass Index 19.58 (56.70 kg, 170.18 cm) cm10 15:28 Pain Scale: Adult cm10 MDM: 15:29 Patient medically screened. [facility] 17:05 Differential diagnosis: dislocation, closed fracture, contusion. Data reviewed: vital [facility] signs, nurses notes, radiologic studies, plain films. I considered the following discharge prescriptions or medication management in the emergency department Medications were administered in the Emergency Department. See MAR. Care significantly affected by the following chronic conditions: Diabetes, Hypertension. Counseling: I had a detailed discussion with the patient and/or guardian regarding the historical points, exam findings, and any diagnostic results supporting the discharge/admit diagnosis, to return to the emergency department if symptoms worsen or persist or if there are any questions or concerns that arise at home. Response to treatment: the patient's symptoms have mildly improved after treatment. 06/07 15:38 Order name: XRAY Foot LEFT 3 View; Complete Time: 17:03 [facility] Administered Medications: 15:47 Drug: traMADol PO 50 mg PO once Route: PO; cm10 17:14 Follow up: Response: No adverse reaction cm10 Disposition Summary: 06/07/23 17:04 Discharge Ordered Notes: Location: Home [facility] Problem: new [facility] Symptoms: are unchanged [facility] Condition: Stable [facility] Diagnosis - Sprain of toe [facility] Followup: [facility] - With: Private Physician - When: 2 - 3 days - Reason: Recheck today's complaints Discharge Instructions: - Discharge Summary Sheet [facility] - Foot Sprain [facility] Forms: - Medication Reconciliation Form [facility] - Thank You Letter [facility] - Patient Portal Instructions [facility] - Leadership Thank You Letter [facility] Signatures: Dispatcher [employer] Minnie Aguayo, DRY TALC RACKER DRY TALC RACKER [facility] Sabina Mancia, RN RN cm10
[2023-06-07 17:19] VITALS: BP 143/68; TEMP 97.5; O2SAT 100
== END 2023-06-07 17:15 | disposition home or self-care (01) ==
LOC: ER 15:03
DX: S93.505A Unspecified sprain of left lesser toe(s), initial encounter (principal)
CPT/HCPCS: 99283

== ENCOUNTER → 2023-07-03 | Emergency (ER) | payer OTHER ==
--- OUTSIDE RECORDS SUMMARY | 2023-07-03 12:51 | XMS REPORT | Continuity of Care Document ---
Author Name Unknown Address [address] [place] [address] [facility] Address [address] [place] [address] Care Team Providers Care [employer] Helicopter Pilot Name Role Phone Lab, Adc Fam Pob I Attending Clinician Unavailab Diana Virgen DO Attending Clinician [phone] Mariangel Miller Attending Clinician [phone] Doctor Unassigned, [place] Attending Clinician U yariel Connor MD, Cristobal Attending Clinician [phone] Encounters Start Date/Time End Date/Time Encounter Type Admission Type Attending Clinicians Care Facility Care Department Encounter ID Source 2020-09-16 09:44:15 2020-09-16 10:04:15 Laboratory Only Lab, Adc Fam Pob I [facility] [id number] 4.2.7.2.686 [id number] 2020-09-13 20:05:00 2020-09-13 22:24:00 Emergency Diana Madrigal [facility] [id number] 350.1.13.10 4.2.7.2.686 [id number] 2019-07-27 18:07:12 2019-07-27 20:13:00 Emergency Mariangel Ortega [facility] [id number] 350.1.13.10 4.2.7.2.686 [id number] 2019-07-27 00:00:00 2019-07-27 00:00:00 Orders Only Doctor Unassigned, [place] [facility] [id number] 350.1.13.10 4.2.7.2.686 [id number] 2019-03-11 14:05:54 2019-03-11 16:45:00 Emergency Cristobal Connor [facility] [id number] 4.2.7.2.686 [id number]
--- NOTE | 2023-07-03 13:31 | RAD REPORT ---
EXAM DESCRIPTION: CT - CTHCSPWOC - 07/03/2023 1:20 pm CLINICAL HISTORY: Trauma, head and neck injury. PAIN COMPARISON: Soft Tissue Neck W/Contr dated 05/02/2023; Soft Tissue Neck W/Contr dated 02/11/2023 TECHNIQUE: Axial 5 mm thick images of the head were obtained. Axial 2 mm thick images of the cervical spine were obtained with sagittal and coronal reconstruction images generated and reviewed. All CT scans are performed using dose optimization technique as appropriate and may include automated exposure control or mA/KV adjustment according to patient size. FINDINGS: CT HEAD WITHOUT CONTRAST: No acute hemorrhage, hydrocephalus or extra-axial collection is identified.No areas of brain edema or midline shift. Mild chronic small vessel ischemic changes. The paranasal sinuses and mastoids are clear.The calvarium is intact. CT CERVICAL SPINE WITHOUT CONTRAST: No fracture or subluxation.No prevertebral soft tissues swelling is identified. Multilevel cervical s pondylosis with evidence of neural foraminal narrowing bilaterally at C5-6. IMPRESSION: No acute intracranial or cervical spine findings.
--- NOTE | 2023-07-03 14:37 | ER ---
Nurse's Notes [facility] Name: Dolores Pérez Age: 63 yrs Sex: Female : 1960 Arrival Date: 07/03/2023 Time: 12:47 Bed 10 Private MD: Diagnosis: Unspecified injury of head, initial encounter;Contusion of unspecified part of head-right temporal occipital Presentation: 07/03 12:56 Chief complaint: Patient states: Pt states she was washing her 's feet while cm10 sitting on the floor and lost her balance and struck the right side of her head on a dresser on Friday. Pt states since then she has been unable to control her emotions. Pt states she gets sad and/or angry without warning. Pt states she feels overwhelmed by care taking duties for her as well as her own ongoing illnesses. Pt states relationship has been very strained for past several years. Pt is concerned "I keep having strokes". Coronavirus screen: Vaccine status: Patient reports receiving the 2nd dose of the covid vaccine. At this time, the client does not indicate any symptoms associated with coronavirus-19. Ebola Screen: Patient negative for fever greater than or equal to 101.5 degrees Fahrenheit, and additional compatible Ebola Virus Disease symptoms Patient denies exposure to infectious person. Patient denies travel to an Ebola-affected area in the 21 days before illness onset. No symptoms or risks identified at this time. Mechanism of Injury: The problem was sustained at home, resulted from a fall, from a seated position. Initial Sepsis Screen: Does the patient meet any 2 criteria? No. Patient's initial sepsis screen is negative. Does the patient have a suspected source of infection? No. Patient's initial sepsis screen is negative. Risk Assessment: Do you want to hurt yourself or someone else? Patient reports no desire to harm self or others. Onset of symptoms was June 30, 2023. 12:56 Method Of Arrival: Ambulatory cm10 12:56 Acuity: AARON 3 cm10 Triage Assessment: 13:05 General: Appears in no apparent distress. Behavior is cooperative, crying. Pain: cm10 Complains of pain in head Pain at worst was 8 out of 10 on a pain scale. Neuro: Level of Consciousness is awake, alert, obeys commands, Oriented to person, place, time, situation, Splicer Machine Operator are equal bilaterally Moves all extremities. Gait is steady, Speech is normal, Facial symmetry appears normal, Reports headache in entire. Historical: - Allergies: 13:15 grapes; cm10 13:15 NSAIDS; cm10 13:15 ORANGES; cm10 13:15 peanuts; cm10 13:15 Prednisone; cm10 13:15 sesame seed; cm10 13:15 Sulfa (Sulfonamide Antibiotics); cm10 - PMHx: 13:15 Anxiety; Asthma; Asthma; COPD; depressive disorder; diabetes mellitus; High cm10 Cholesterol; Hypertension; Hypothyroidism; Transient cerebral ischemia; - Immunization history:: Adult Immunizations unknown. - Social history:: Smoking status: Patient denies any tobacco usage or history of. Screenin:16 [facility] ED Fall Risk Assessment (Adult) History of falling in the last 3 months, tl4 including since admission No falls in past 3 months (0 pts) Confusion or Disorientation No (0 pts) Intoxicated or Sedated No (0 pts) Impaired Gait No (0 pts) Mobility Assist Device Used No (0 pt) Altered Elimination No (0 pt) Score/Fall Risk Level 0 - 2 = Low Risk. Abuse screen: Denies threats or abuse. Denies injuries from another. Nutritional screening: No deficits noted. Tuberculosis screening: No symptoms or risk factors identified. Assessment: 13:13 Reassessment: No changes from previously documented assessment. Patient and/or family tl4 updated on plan of care and expected duration. Pain level reassessed. Patient is alert, oriented x 3, equal unlabored respirations, skin warm/dry/pink. 14:48 Reassessment: No changes from previously documented assessment. Patient and/or family tl4 updated on plan of care and expected duration. Pain level reassessed. Patient is alert, oriented x 3, equal unlabored respirations, skin warm/dry/pink. Vital Signs: 12:56 BP 155 / 78; Pulse 78; Resp 16; Temp 97.5(O); Pulse Ox 100% on R/A; Weight 53.2 kg (M); cm10 Height 5 ft. 7 in. ; 14:47 BP 143 / 79; Pulse 71; Resp 16; Pulse Ox 99% on R/A; Pain 5/10; tl4 12:56 Body Mass Index 18.37 (53.20 kg, 170.18 cm) cm10 14:47 Pain Scale: Adult tl4 Jeremy Coma Score: 12:56 Eye Response: spontaneous(4). Motor Response: obeys commands(6). Verbal Response: cm10 oriented(5). Total: 15. ED Course: 12:51 Patient arrived in ED. mr 12:51 Xavi Crow MD is Attending Physician. kdr 13:05 Triage completed. cm10 13:07 Arm band placed on Patient placed in an exam room, on a stretcher. cm10 13:13 Aaron Mancera is Primary Nurse. tl4 13:17 Patient has correct armband on for positive identification. Bed in low position. Call tl4 light in reach. Side rails up X 1. Provided Education on: ED process. 13:17 No provider procedures requiring assistance completed. tl4 13:22 CT Head C Spine In Process Unspecified. EDMS 14:42 Patient did not have IV access during this emergency room visit. tl4 Administered Medications: No medications were administered Medication: 13:17 VIS not applicable for this client. tl4 Outcome: 14:37 Discharge ordered by . kdr 14:42 Discharged to home ambulatory, tl4 14:42 Condition: stable 14:42 Discharge instructions given to patient, Instructed on discharge instructions, follow up and referral plans. Demonstrated understanding of instructions, follow-up care, 14:48 Patient left the ED. tl4 Signatures: Dispatcher [employer] EDNY Xavi Crow MD MD [facility] Cherise Edmond, Reg Reg Gavino Sabina, RN RN cm10 Aaron Mancera tl4
--- NOTE | 2023-07-03 14:37 | EDPHYS ---
Physician Documentation [facility] Name: Dolores Pérez Age: 63 yrs Sex: Female : 1960 Arrival Date: 07/03/2023 Time: 12:47 Bed 10 Private MD: ED Physician Xavi Crow HPI: 07/03 16:57 This 63 yrs old Female presents to ER via Ambulatory with complaints of Head kdr Injury-Adult. 16:57 Patient states that she was watching her 's feet after eating had diarrhea. She kdr was sitting on the floor. This occurred on . She states that she lost her balance and struck her head on the corner of a side table to their bed. Patient since has had pain to the right druze area. Patient had no nausea or vomiting or syncope related to this. Patient is concerned that she may have caused herself to have a stroke. Other details were related to the nurse at triage which were not relevant to the potential for an intracranial injury. . Onset: The symptoms/episode began/occurred suddenly, 3 day(s) ago. Severity of symptoms: At their worst the symptoms were mild moderate just prior to arrival, in the emergency department the symptoms are unchanged. The patient has not experienced similar symptoms in the past. The patient has not recently seen a physician. Historical: - Allergies: 13:15 grapes; cm10 13:15 NSAIDS; cm10 13:15 ORANGES; cm10 13:15 peanuts; cm10 13:15 Prednisone; cm10 13:15 sesame seed; cm10 13:15 Sulfa (Sulfonamide Antibiotics); cm10 - PMHx: 13:15 Anxiety; Asthma; Asthma; COPD; depressive disorder; diabetes mellitus; High cm10 Cholesterol; Hypertension; Hypothyroidism; Transient cerebral ischemia; - Immunization history:: Adult Immunizations unknown. - Social history:: Smoking status: Patient denies any tobacco usage or history of. ROS: 16:57 Constitutional: Negative for fever, chills, and weight loss, Eyes: Negative for injury, kdr pain, redness, and discharge, ENT: Negative for injury, pain, and discharge, Neck: Negative for injury, pain, and swelling, Cardiovascular: Negative for chest pain, palpitations, and edema, Respiratory: Negative for shortness of breath, cough, wheezing, and pleuritic chest pain, Abdomen/GI: Negative for abdominal pain, nausea, vomiting, diarrhea, and constipation, Back: Negative for injury and pain, : Negative for injury, bleeding, discharge, and swelling, MS/Extremity: Negative for injury and deformity, Skin: Negative for injury, rash, and discoloration, Allergy/Immunology: Negative for hives, rash, and allergies, Endocrine: Negative for neck swelling, polydipsia, polyuria, polyphagia, and marked weight changes, Hematologic/Lymphatic: Negative for swollen nodes, abnormal bleeding, and unusual bruising, 16:57 Psych: Positive for anxiety, depression, Exam: 16:58 Constitutional: This is a well developed, well nourished patient who is awake, alert, kdr and in no acute distress. Head/Face: Normocephalic, atraumatic. Eyes: Pupils equal round and reactive to light, extra-ocular motions intact. Lids and lashes normal. Conjunctiva and sclera are non-icteric and not injected. Cornea within normal limits. Periorbital areas with no swelling, redness, or edema. Neck: Trachea midline, no thyromegaly or masses palpated, and no cervical lymphadenopathy. Supple, full range of motion without nuchal rigidity, or vertebral point tenderness. No Meningismus. Chest/axilla: Normal chest wall appearance and motion. Nontender with no deformity. No lesions are appreciated. Cardiovascular: Regular rate and rhythm with a normal S1 and S2. No gallops, murmurs, or rubs. Normal PMI, no JVD. No pulse deficits. Respiratory: Lungs have equal breath sounds bilaterally, clear to auscultation and percussion. No rales, rhonchi or wheezes noted. No increased work of breathing, no retractions or nasal flaring. Abdomen/GI: Soft, non-tender, with normal bowel sounds. No distension or tympany. No guarding or rebound. No evidence of tenderness throughout. Back: No spinal tenderness. No costovertebral tenderness. Full range of motion. Skin: Warm, dry with normal turgor. Normal color with no rashes, no lesions, and no evidence of cellulitis. MS/ Extremity: Pulses equal, no cyanosis. Neurovascular intact. Full, normal range of motion. Neuro: Awake and alert, GCS 15, oriented to person, place, time, and situation. Cranial nerves II-XII grossly intact. Motor strength 5/5 in all extremities. Sensory grossly intact. Cerebellar exam normal. Normal gait. Psych: Awake, alert, with orientation to person, place and time. Behavior, mood, and affect are within normal limits. 16:58 Head/face: There were no significant findings on the exam of the patient's head. She was slightly tender in the right parietal temporal area but otherwise there was no evidence of acute or significant injury.. Vital Signs: 12:56 BP 155 / 78; Pulse 78; Resp 16; Temp 97.5(O); Pulse Ox 100% on R/A; Weight 53.2 kg (M); cm10 Height 5 ft. 7 in. ; 14:47 BP 143 / 79; Pulse 71; Resp 16; Pulse Ox 99% on R/A; Pain 5/10; tl4 12:56 Body Mass Index 18.37 (53.20 kg, 170.18 cm) cm10 14:47 Pain Scale: Adult tl4 Jeremy Coma Score: 12:56 Eye Response: spontaneous(4). Motor Response: obeys commands(6). Verbal Response: cm10 oriented(5). Total: 15. MDM: 14:37 Patient medically screened. kdr 16:59 Data reviewed: vital signs, nurses notes, radiologic studies. kdr 07/03 13:14 Order name: CT Head C Spine; Complete Time: 14:29 cm10 Administered Medications: No medications were administered Disposition Summary: 07/03/23 14:37 Discharge Ordered Notes: Location: Home kdr Problem: new kdr Symptoms: have improved kdr Condition: Stable kdr Diagnosis - Unspecified injury of head, initial encounter kdr - Contusion of unspecified part of head - right temporal occipital kdr Followup: kdr - With: Private Physician - When: 2 - 3 days - Reason: If symptoms return, Further diagnostic work-up, Recheck today's complaints, Continuance of care, Re-evaluation by your physician Discharge Instructions: - Discharge Summary Sheet kdr - Head Injury, Adult, [id number] kdr Forms: - Medication Reconciliation Form kdr - Thank You Letter kdr - Patient Portal Instructions kdr - Leadership Thank You Letter kdr Prescriptions: - Tylenol 325 mg Oral tablet - take 2 tablets ORAL route every 6 hours As needed as needed; 16 tablet; kdr Refills: 0, Product Selection Permitted Signatures: Dispatcher [employer] Eladio Croftin, MD MD kdr Sabina Mancia, RN RN cm10
[2023-07-03 16:04] VITALS: BP 143/79; TEMP 97.5; O2SAT 99
== END ==
LOC: ER 12:47
DX: S00.83XA Contusion of other part of head, initial encounter (principal); Z88.2 Allergy status to sulfonamides; Z88.6 Allergy status to analgesic agent; Z88.8 Allergy status to other drugs, medicaments and biological substances; Z91.010 Allergy to peanuts; Z91.018 Allergy to other foods
CPT/HCPCS: 70450; 72125; 99282

== ENCOUNTER → 2023-07-12 | Emergency (ER) | payer OTHER ==
[~2023-07-12] MED LIST: FAMOTIDINE 20 MG/2 ML VIAL IV ONE; NA CHLORIDE 0.9% 1,000 ML ONE; ONDANSETRON 4 MG/2 ML VIAL ONE; POTASSIUM CL SA 10 MEQ TAB PO ONE
--- OUTSIDE RECORDS SUMMARY | 2023-07-12 18:02 | XMS REPORT | Continuity of Care Document ---
Author Name Unknown Address [address] [facility] [address] [place] [address] [facility] Address [address] [facility] [address] [place] [address] Care Team Providers Care Marsh Buggy Operator Name Role Phone Lab, Adc Fam Pob I Attending Clinician Unavailab Diana Virgen DO Attending Clinician [phone] Mariangel Miller Attending Clinician [phone] Doctor Unassigned, Gutierrez Attending Clinician U yariel Connor MD, Cristobal Attending Clinician Encounters Start Date/Time End Date/Time Encounter Type Admission Type Attending Clinicians Care Facility Care Department Encounter ID Source 2023-07-08 09:29:45 2023-07-08 09:29:45 Outpatient [facility] [id number] Abebe F Christofer 2020-09-16 09:44:15 2020-09-16 10:04:15 Laboratory Only Lab, Adc Fam Pob I [facility] Office [facility] [id number]..[id number] 2020-09-13 20:05:00 2020-09-13 22:24:00 Emergency Diana Madrigal [facility] 1..[id number] 2019-07-27 18:07:12 2019-07-27 20:13:00 Emergency Mariangel Ortega [facility] [id number] 2019-07-27 00:00:00 2019-07-27 00:00:00 Orders Only Doctor Unassigned, Gutierrez [facility] [id number] 2019-03-11 14:05:54 2019-03-11 16:45:00 Emergency Cristobal Connor [facility] [id number]
[2023-07-12 18:46] LABS: Absolute Lymphocytes (CBC) 1.3 K/uL (0.7-4.9); Hematocrit 29.5 % (36.0-45.0); MCV 93.7 fL (80-100); MPV 7.8 fL (7.6-11.3); Platelets 337 thou/uL (152-406); RBC Red Blood Cell Count 3.15 M/uL (3.86-4.86)
[2023-07-12 19:05] LABS: Albumin 3.9 g/dL (3.4-5.0); Bilirubin Total 0.4 mg/dL (0.2-1.0); Potassium 2.9 mEq/L (3.5-5.1); Protein, Total 7.3 g/dL (6.4-8.2); Troponin High Sensitivity 3.4 pg/mL (<58.9)
--- NOTE | 2023-07-12 20:25 | RAD REPORT ---
EXAM DESCRIPTION: CTAbdomen Pelvis W Contrast - 07/12/2023 8:16 pm CLINICAL HISTORY: Abdominal pain. ABD PAIN COMPARISON: Abdomen Pelvis W Contrast dated 03/21/2023; Abdomen Pelvis W Contrast dated 12/03/2020 ; Abdomen Pelvis W Contrast dated 08/30/2020; Abdomen Pelvis W Contrast dated 05/20/2016 TECHNIQUE: Biphasic CT imaging of the abdomen and pelvis was performed with 100 ml non-ionic IV cont rast. All CT scans are performed using dose optimization technique as appropriate and may include automated exposure control or mA/KV adjustment according to patient size. FINDINGS: The lung bases are clear.Small hiatal hernia noted. The liver, spleen, pancreas, adrenal glands are within normal limits. Small calculi are present in th e calices of both kidneys without hydronephrosis. No bowel obstruction, free air, free fluid or abscess. Moderate stool is present throughout the colon . The appendix is normal. No evidence of significant lymphadenopathy. No suspicious bony findings. IMPRESSION: Small fluid-filled hiatal hernia. Bilateral nephrolithiasis without hydronephrosis. Significant fecal retention throughout the colon.
[2023-07-12 20:30] LABS: Specific Gravity 1.012 (1.005-1.030); Urine Bacteria None Seen /HPF (<20); Urine Bilirubin NEGATIVE (Negative); Urine Blood Negative (Negative); Urine Clarity Clear (Clear); Urine Color Colorless (Yellow); Urine Glucose TRACE (Negative); Urine Mucus Slight /HPF (None Seen); Urine Protein NEGATIVE (Negative); Urine RBC None Seen /HPF (None Seen); Urine Urobilinogen Normal (Normal)
--- NOTE | 2023-07-12 20:52 | EDPHYS ---
Physician Documentation [facility] Name: Dolores Pérez Age: 63 yrs Sex: Female : 1960 Arrival Date: 07/12/2023 Time: 17:58 Bed 2 Private MD: ED Physician Arthur Smith HPI: 07/12 19:02 This 63 yrs old Female presents to ER via EMS with complaints of nausea and vomiting. 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 States her abd feels tight due to vomiting. . Historical: - Allergies: 18:03 grapes; ap3 18:03 NSAIDS; ap3 18:03 ORANGES; ap3 18:03 peanuts; ap3 18:03 Prednisone; ap3 18:03 sesame seed; ap3 18:03 Sulfa (Sulfonamide Antibiotics); ap3 - PMHx: 18:03 Anxiety; Asthma; COPD; depressive disorder; diabetes mellitus; High Cholesterol; ap3 Hypertension; Hypothyroidism; Transient cerebral ischemia; - Immunization history:: Adult Immunizations unknown. - Social history:: Smoking status: Patient reports the use of cigarette tobacco products. ROS: 19:01 Constitutional: Negative for fever, chills, and weight loss, kb 19:01 Abdomen/GI: Positive for abdominal pain, nausea and vomiting, 19:01 All other systems are negative, Exam: 18:45 Constitutional: This is a well developed, well nourished patient who is awake, alert, kb and in no acute distress. Head/Face: Normocephalic, atraumatic. ENT: Moist Mucous membranes Cardiovascular: Regular rate Respiratory: Respirations even and unlabored. No increased work of breathing. Talking in full sentences Skin: Warm, dry with normal turgor. Normal color. MS/ Extremity: Pulses equal, no cyanosis. Neurovascular intact. Full, normal range of motion. Neuro: Awake and alert, GCS 15, oriented to person, place, time, and situation. Moves all extremities. Normal gait. 18:45 ECG was reviewed by the Attending Physician. 19:01 Abdomen/GI: Inspection: abdomen appears normal, Bowel sounds: normal, Palpation: soft, kb in all quadrants, mild abdominal tenderness, in the epigastric area, right upper quadrant and left upper quadrant, Vital Signs: 18:01 BP 135 / 66; Pulse 70; Resp 15; Temp 97.1; Pulse Ox 98% on R/A; Weight 53.07 kg; Height ap3 5 ft. 7 in. ; Pain 4/10; 19:00 BP 135 / 63; Pulse 72; Resp 16; Pulse Ox 95% on R/A; km8 19:15 BP 136 / 64; Pulse 76; Resp 16; Pulse Ox 95% on R/A; km8 20:15 BP 141 / 85; Pulse 73; Resp 16; Pulse Ox 98% on R/A; km8 20:47 BP 146 / 67; Pulse 80; Resp 16; Pulse Ox 98% on R/A; km8 18:01 Body Mass Index 18.32 (53.07 kg, 170.18 cm) ap3 18:01 Pain Scale: Adult ap3 MDM: 18:04 Patient medically screened. kb 20:51 Differential diagnosis: Nonspecific abd pain, gastritis, pancreatitis, viral kb gastroenteritis. Data reviewed: vital signs, nurses notes. 20:51 Historians other than the Patient: EMS: [facility]. Counseling: I had a detailed kb discussion with the patient and/or guardian regarding the historical points, exam findings, and any diagnostic results supporting the discharge/admit diagnosis, lab results, radiology results, the need for outpatient follow up, a family practitioner, to return to the emergency department if symptoms worsen or persist or if there are any questions or concerns that arise at home. 07/12 18:16 Order name: CBC with Diff; Complete Time: 19:06 kb 07/12 18:16 Order name: CMP; Complete Time: 19:06 kb 07/12 18:16 Order name: Lipase; Complete Time: 19:06 kb 07/12 18:16 Order name: Urinalysis w/ reflexes; Complete Time: 20:34 kb 07/12 18:16 Order name: Troponin High Sensitivity; Complete Time: 19:06 kb 07/12 18:16 Order name: CT Abd/Pelvis - IV Contrast Only; Complete Time: 20:26 kb 07/12 18:16 Order name: EKG; Complete Time: 18:16 kb 07/12 18:16 Order name: IV Saline Lock; Complete Time: 18:16 kb 07/12 18:16 Order name: Labs collected and sent; Complete Time: 18:29 kb 07/12 18:16 Order name: EKG - Nurse/Tech; Complete Time: 18:25 kb 07/12 20:27 Order name: PO challenge; Complete Time: 20:28 kb EC:45 Rate is 69 beats/min. Rhythm is regular. QRS [place] is Normal. NC interval is normal at kb 180 msec. QRS interval is normal at 102 msec. QT interval is normal at 456 msec. Administered Medications: 18:29 Drug: Famotidine IVP 20 mg IVP once; dilute with 10 mL 0.9% NaCl; give over 2 minutes ap3 Route: IVP; Site: right wrist; 19:33 Follow up: Response: No adverse reaction 8 18:30 Drug: NS 0.9% IV 1000 ml IV at 1 bolus Per protocol; 1000 mL bolus Route: IV; Rate: 1 ap3 bolus; Site: right wrist; 20:19 Follow up: IV Status: Completed infusion; IV Intake: 1000ml 8 19:33 Drug: Potassium Chloride PO 40 mEq PO once Route: PO; 8 20:19 Follow up: Response: No adverse reaction 8 20:53 Drug: Ondansetron IVP 4 mg IVP once; over 2 minutes Route: IVP; Site: right forearm; nw1 21:13 Follow up: Response: No adverse reaction km8 Disposition Summary: 07/12/23 20:52 Discharge Ordered Notes: Location: Home kb Condition: Stable kb Diagnosis - Nausea with vomiting, unspecified kb Followup: kb - With: Emergency Department - When: As needed - Reason: Worsening of condition Followup: kb - With: Private Physician - When: 2 - 3 days - Reason: Recheck today's complaints, Continuance of care, Re-evaluation by your physician Discharge Instructions: - Discharge Summary Sheet kb - Nausea and Vomiting, Adult, [id number] kb Forms: - Medication Reconciliation Form kb - Thank You Letter kb - Antibiotic Education kb - Prescription Opioid Use kb - Patient Portal Instructions kb - Leadership Thank You Letter Prescriptions: - ondansetron 4 mg Oral Tablet,disintegrating - take 1 tablet ORAL route every 6 hours As needed; 10 tablet; Refills: 0, kb Product Selection Permitted Signatures: Dispatcher [employer] Felicia Lema FNP-C FNP-Donna Reeves RN RN ap3 Tara Bledsoe RN RN km8 Mallorie Madrigal RN RN nw1 Corrections: (The following items were deleted from the chart) 19:01 18:45 Constitutional: This is a well developed, well nourished patient who is awake, kb alert, and in no acute distress. Head/Face: Normocephalic, atraumatic. ENT: Moist Mucous membranes Cardiovascular: Regular rate Respiratory: Respirations even and unlabored. No increased work of breathing. Talking in full sentences Abdomen/GI: Soft, non-tender. No distention Skin: Warm, dry with normal turgor. Normal color. MS/ Extremity: Pulses equal, no cyanosis. Neurovascular intact. Full, normal range of motion. Neuro: Awake and alert, GCS 15, oriented to person, place, time, and situation. Moves all extremities. Normal gait. kb
--- NOTE | 2023-07-12 20:52 | ER ---
Nurse's Notes [facility] Name: Dolores Pérez Age: 63 yrs Sex: Female : 1960 Arrival Date: 07/12/2023 Time: 17:58 Bed 2 Private MD: Diagnosis: Nausea with vomiting, unspecified Presentation: 07/12 18:01 Chief complaint: Patient states: after dinner tonight, she started feeling nauseated ap3 with chest tightness. upon EMS's arrival the patient vomited, and reports that after she vomited her symptoms improved. EMS initiated a 20g to the right AC and administered 4mg Zofran IV in route. EMS reports the Patient has not vomited since the Zofran was administered. Coronavirus screen: At this time, the client does not indicate any symptoms associated with coronavirus-19. Ebola Screen: No symptoms or risks identified at this time. Initial Sepsis Screen: Does the patient meet any 2 criteria? No. Patient's initial sepsis screen is negative. Does the patient have a suspected source of infection? No. Patient's initial sepsis screen is negative. Risk Assessment: Do you want to hurt yourself or someone else? Patient reports no desire to harm self or others. Onset of symptoms was July 12, 2023. 18:01 Method Of Arrival: EMS: [facility] ap3 18:01 Acuity: AARON 3 ap3 18:03 Care prior to arrival: Medication(s) given: zofran 4 mg, IV initiated. 20 GA, in the ap3 right antecubital area. Triage Assessment: 18:04 General: Appears in no apparent distress. Behavior is calm, cooperative, appropriate ap3 for age. Pain: Complains of pain in chest and abdomen Pain currently is 4 out of 10 on a pain scale. Pain began gradually, 2 hours ago. Neuro: Level of Consciousness is awake, alert, obeys commands, Oriented to person, place, time, situation. Cardiovascular: Patient's skin is warm and dry. Respiratory: Airway is patent Respiratory effort is even, unlabored, Respiratory pattern is regular, symmetrical. GI: Reports nausea, vomiting. Historical: - Allergies: 18:03 grapes; ap3 18:03 NSAIDS; ap3 18:03 ORANGES; ap3 18:03 peanuts; ap3 18:03 Prednisone; ap3 18:03 sesame seed; ap3 18:03 Sulfa (Sulfonamide Antibiotics); ap3 - PMHx: 18:03 Anxiety; Asthma; COPD; depressive disorder; diabetes mellitus; High Cholesterol; ap3 Hypertension; Hypothyroidism; Transient cerebral ischemia; - Immunization history:: Adult Immunizations unknown. - Social history:: Smoking status: Patient reports the use of cigarette tobacco products. Screenin:04 [facility] ED Fall Risk Assessment (Adult) History of falling in the last 3 months, ap3 including since admission No falls in past 3 months (0 pts). Abuse screen: Denies threats or abuse. Nutritional screening: No deficits noted. Tuberculosis screening: No symptoms or risk factors identified. Assessment: 19:00 Reassessment: Patient appears in no apparent distress at this time. No changes from km8 previously documented assessment. Patient and/or family updated on plan of care and expected duration. Pain level reassessed. Patient is alert, oriented x 3, equal unlabored respirations, skin warm/dry/pink. 19:00 General: Appears in no apparent distress. comfortable, Behavior is calm, cooperative, km8 appropriate for age. Neuro: Level of Consciousness is awake, alert, obeys commands, Oriented to person, place, time, situation. Cardiovascular: Denies chest pain, shortness of breath, Capillary refill < 3 seconds Patient's skin is warm and dry. Respiratory: Airway is patent Respiratory effort is even, unlabored, Respiratory pattern is regular, symmetrical. 20:00 Reassessment: Patient appears in no apparent distress at this time. No changes from km8 previously documented assessment. Patient and/or family updated on plan of care and expected duration. Pain level reassessed. Vital Signs: 18:01 BP 135 / 66; Pulse 70; Resp 15; Temp 97.1; Pulse Ox 98% on R/A; Weight 53.07 kg; Height ap3 5 ft. 7 in. ; Pain 4/10; 19:00 BP 135 / 63; Pulse 72; Resp 16; Pulse Ox 95% on R/A; km8 19:15 BP 136 / 64; Pulse 76; Resp 16; Pulse Ox 95% on R/A; km8 20:15 BP 141 / 85; Pulse 73; Resp 16; Pulse Ox 98% on R/A; km8 20:47 BP 146 / 67; Pulse 80; Resp 16; Pulse Ox 98% on R/A; km8 18:01 Body Mass Index 18.32 (53.07 kg, 170.18 cm) ap3 18:01 Pain Scale: Adult ap3 ED Course: 18:01 Patient arrived in ED. ap3 18:03 Triage completed. ap3 18:04 Felicia Chavez FNP-C is [facility]. kb 18:04 Arthur Smith MD is Attending Physician. kb 18:04 Arm band placed on right wrist. ap3 18:05 Patient has correct armband on for positive identification. Bed in low position. Call ap3 light in reach. Side rails up X2. diaphragm builder on. Pulse ox on. NIBP on. 18:12 Donna Lawrence, JADEN is Primary Nurse. ap3 18:12 Nurse Practitioner and/or Physician Tape Stringer to see patient. ap3 18:25 EKG done, by ED staff, reviewed by Felicia HERBERT. em1 18:29 Initial lab(s) drawn, by [facility], sent to lab. Inserted saline lock: 20 gauge in right ap3 wrist, using aseptic technique. Blood collected. 19:53 No provider procedures requiring assistance completed. km8 20:17 CT Abd/Pelvis - IV Contrast Only In Process Unspecified. EDMS 20:19 Urinalysis w/ reflexes Sent. km8 20:47 Cleaned of incontinence. Linen changed. km8 21:13 Provided Education on: d/c teaching. km8 21:13 IV discontinued, intact, bleeding controlled, No redness/swelling at site. Pressure km8 dressing applied. Administered Medications: 18:29 Drug: Famotidine IVP 20 mg IVP once; dilute with 10 mL 0.9% NaCl; give over 2 minutes ap3 Route: IVP; Site: right wrist; 19:33 Follow up: Response: No adverse reaction km8 18:30 Drug: NS 0.9% IV 1000 ml IV at 1 bolus Per protocol; 1000 mL bolus Route: IV; Rate: 1 ap3 bolus; Site: right wrist; 20:19 Follow up: IV Status: Completed infusion; IV Intake: 1000ml km8 19:33 Drug: Potassium Chloride PO 40 mEq PO once Route: PO; km8 20:19 Follow up: Response: No adverse reaction km8 20:53 Drug: Ondansetron IVP 4 mg IVP once; over 2 minutes Route: IVP; Site: right forearm; nw1 21:13 Follow up: Response: No adverse reaction km8 Medication: 18:12 VIS not applicable for this client. ap3 Intake: 20:19 IV: 1000ml; Total: 1000ml. km8 Outcome: 20:52 Discharge ordered by . kb 21:09 Discharged to home via wheelchair, nw1 21:09 Condition: stable 21:09 Discharge instructions given to patient, Instructed on discharge instructions, follow up and referral plans. medication usage, Demonstrated understanding of instructions, follow-up care, medications, Prescriptions given X 1, 21:13 Patient left the ED. km8 Signatures: Dispatcher [employer] EDMS Felicia Chavez, KEON CEE-Gilmer Marques em1 Donna Lawrence, JADEN RN ap3 Tara Bledsoe RN RN km8 Mallorie Madrigal, JADEN RN nw1
[2023-07-12 23:40] VITALS: TEMP 97.1; O2SAT 98
[2023-07-13] VITALS: BP 146/67
--- NOTE | 2023-07-14 12:25 | EKG ---
Test Date: 2023-07-12 Test Time: 18:22:20 [place] Hand: CASEY MEASUREMENT RESULTS: Intervals: Rate: 69 CA: 180 QRSD: 102 QT: 426 QTc: 456 [place]: P: 63 CA: 180 QRS: 50 T: 66 INTERPRETIVE STATEMENTS: Normal sinus rhythm Normal ECG Compared to ECG 06/21/2023 12:56:58 No significant changes Electronically Signed On 07-14-23 12:20:29 PROFESSOR OF OCEANOGRAPHY by Stephen Childress
== END ==
LOC: ER 17:58
DX: R11.2 Nausea with vomiting, unspecified (principal); I10 Essential (primary) hypertension; Z72.0 Tobacco use; Z88.2 Allergy status to sulfonamides; Z88.6 Allergy status to analgesic agent; Z88.8 Allergy status to other drugs, medicaments and biological substances; Z91.010 Allergy to peanuts; Z91.018 Allergy to other foods
CPT/HCPCS: 93005; 85025; 81001; 36415; 84484; 83690; 80053; 74177; 99285; Q9967; J2405; J7030

== ENCOUNTER 2023-10-06 07:58 | Emergency (ER) | payer OTHER ==
--- OUTSIDE RECORDS SUMMARY | 2023-10-06 08:04 | XMS REPORT | Continuity of Care Document ---
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 Phone PAULINA DUNHAM Primary Care Physician Ronda vailable Neida DUGGAN Attending Clinician Unavailable Neida Jiménez Attending Clinician [phone] Susan Rodriguez Attending Clinician [phone] Unknown, Attending Attending Clinician Unavailab SUSAN Morales Attending Clinician Unavailable Doctor Unassigned, Griffin Attending Clinician U navailable Only, Ang Db Test Attending Clinician Unavailabl Monik Broussard MD Attending Clinician [phone] MONIK NICOLE Attending Clinician Unavailable ALEX OCONNELL Attending Clinician UnavailAlex Schultz Attending Clinician + [phone] SHERRILL CONNOR Attending Clinician Unavailable Sherrill Connor MD Attending Clinician [phone] CAMERON DALTON Attending Clinician Unavailable Cameron Nick Attending Clinician [phone] Nirmala Daniels RN Attending Clinician Unavailab DARIUS Sen Attending Clinician Unavailable Darius Barragan Attending Clinician [phone] JOSE ALEJANDRO CASTANO Attending Clinician Unavailable Jose Alejandro Rosas Attending Clinician [phone] MARCELINA CHE Attending Clinician Unavailable Marcelina Che MD Attending Clinician [phone] NICOLE ISSA Attending Clinician Unavailable Lab, Adc Fam Pob I Attending Clinician Unavailab Nicole Alan Attending Clinician [phone] Diana Berg DO Attending Clinician [phone] Shannon CEE, Mariangel Caballero Attending Clinician [phone] Neida DUGGAN Admitting Clinician Unavailable ALEX OCONNELL Admitting Clinician UnavailCAMERON Gibson Admitting Clinician Unavailable DARIUS LEDESMA Admitting Clinician Unavailable JOSE ALEJANDRO CASTANO Admitting Clinician Unavailable MARCELINA CHE Admitting Clinician Unavailable Marcelina Che MD Admitting Clinician [phone] Payers Payer Name Policy Type Policy Number Effective Date Expirati on Date Source [employer] II [id number] 2016 00:00:00 Problems Condition Name Condition Details Condition Category Status Onset Date Resolution Date Last Treatment Date Treating Clinician Comments Source Primary hypertensi on Primary hypertensi on Disease Active 2020-07 00:00: 00 [facility] Other hyperlipid emia Other hyperlipid emia Disease Active 2020-07 00:00: 00 [facility] History of arterial ischemic stroke History of arterial ischemic stroke Disease Active 2020-07 00:00: 00 [facility] Chest pain Chest pain Disease Active 2020-07 00:00: 00 [facility] Primary hypothyroi dism Primary hypothyroi dism Disease Active 10-14 00:00: 00 [facility] Primary hypothyroi dism Primary hypothyroi dism Disease Active 10-14 00:00: 00 [facility] Allergies, Adverse Reactions, Alerts Allergy Name Allergy Type Status Severity Reaction(s) Onset Date Inactive Date Treating Clinician Comments Source ALBA DRUG INGREDI Active Anaphylaxis 01-06 00:00: 00 [facility] Alba Propensi ty to adverse reaction s Active Anaphylaxis 01-06 00:00: 00 [facility] NAPROXEN SODIUM DRUG INGREDI Active Rash 2020-07 00:00: 00 [facility] METFORMI N DRUG INGREDI Active Diarrhea 2020-07 00:00: 00 [facility] Naproxen Sodium Propensi ty to adverse reaction s Active Rash 2020-07 00:00: 00 Able to take ibuprofen and asa [facility] Metformi n Propensi ty to adverse reaction s Active Diarrhea 2020-07 00:00: 00 [facility] SESAME Drug Class Active Anaphylaxis 2018-0 9 00:00: 00 [facility] Sesame Propensi ty to adverse reaction s Active Anaphylaxis 0 9 00:00: 00 [facility] PEANUT DRUG INGREDI Active Anaphylaxis 2017-07 0-06 00:00: 00 [facility] PREDNISO NE DRUG INGREDI Active Other-Cmnt 2017-07 0-06 00:00: 00 [facility] Peanut Propensi ty to adverse reaction s Active Anaphylaxis 2017-07 006 00:00: 00 [facility] Predniso ne Propensi ty to adverse reaction s Active Other - See comments 2017-07 0-06 00:00: 00 Leg cramps [facility] ASPIRIN DRUG INGREDI Active Unknown-Cmnt 0 4-10 00:00: 00 [facility] NSAIDS (NON-RYAN ROIDAL ANTI-INF LAMMATOR Y DRUG) Drug Class Active Hives 0 4-10 00:00: 00 [facility] SULFA (SULFONA MIDE ANTIBIOT ICS) Drug Class Active Rash 0 4-10 00:00: 00 [facility] Aspirin Propensi ty to adverse reaction s Active Rash 0 4 00:00: 00 [facility] Nsaids (Non-Ryan roidal Anti-Inf lammator y Drug) Propensi ty to adverse reaction s Active Hives 0 4-10 00:00: 00 [facility] Sulfa (Sulfona mide Antibiot ics) Propensi ty to adverse reaction s Active Rash 10-14 00:00: 00 [facility] Sulfa (Sulfona mide Antibiot ics) Propensi ty to adverse reaction s Active Rash 10-14 00:00: 00 [facility] Social History Social Habit Start Date Stop Date Quantity Comments Source Gender identity [facility] 2023-02-26 00:00:00 2023-02-26 00:00:00 [facility] Exposure to SARS-CoV-2 (event) 2022-08-14 00:00:00 2022-08-24 09:35:00 Not sure [facility] Tobacco use and exposure 2022-08-24 00:00:00 2022-08-24 00:00:00 Smokeless tobacco non-user [facility] Sex Ass[birth year] At 1960 00:00:00 1960 00:00:00 [facility] Smoking Status Start Date Stop Date Source Never smoked tobacco [facility] Medications Ordered Medication Name Filled Medication Name Start Date Stop Date Current Medication? Ordering Clinician Indication Dosage Frequency Signature (SIG) Comments Components Source bromphenira mine-pseudo ephedrine-D M (BROMFED DM) 2-30-10 mg/5 mL syrup 08-24 00:00: 00 Yes [id number] 5mL Take 5 mL by mouth 4 (four) times daily as needed for Congestion /Allergies . [facility] bromphenira mine-pseudo ephedrine-D M (BROMFED DM) 2-30-10 mg/5 mL syrup 08-24 00:00: 00 Yes [id number] 5mL Take 5 mL by mouth 4 (four) times daily as needed for Congestion /Allergies . [facility] benzonatate 100 mg capsule 01-06 00:00: 00 Yes [id number] 100mg Take 1 capsule by mouth 3 (three) times daily as needed for Cough. [facility] loratadine (CLARITIN) 10 mg tablet 01-06 00:00: 00 Yes [id number] 10mg Take 1 tablet by mouth at bedtime as needed for Allergies. [facility] capsule 2-0 7-03 00:00: 00 Yes [id number] 100mg Take 1 capsule by mouth 3 (three) times daily as needed for Cough. [facility] loratadine (CLARITIN) 10 mg tablet 2-0 7-03 00:00: 00 Yes [id number] 10mg Take 1 tablet by mouth at bedtime as needed for Allergies. [facility] mg capsule 2-0 7-03 00:00: 00 Yes [id number] 100mg Take 1 capsule by mouth 3 (three) times daily as needed for Cough. [facility] loratadine (CLARITIN) 10 mg tablet 2-0 7-03 00:00: 00 Yes [id number] 10mg Take 1 tablet by mouth at bedtime as needed for Allergies. [facility] benzonatate 100 mg capsule 2-0 7-03 00:00: 00 Yes [id number] 100mg Take 1 capsule by mouth 3 (three) times daily as needed for Cough. [facility] loratadine (CLARITIN) 10 mg tablet 2-0 7-03 00:00: 00 Yes [id number] 10mg Take 1 tablet by mouth at bedtime as needed for Allergies. [facility] benzonatate 100 mg capsule 2-0 7-03 00:00: 00 Yes [id number] 100mg Take 1 capsule by mouth 3 (three) times daily as needed for Cough. [facility] loratadine (CLARITIN) 10 mg tablet 2-0 7-03 00:00: 00 Yes [id number] 10mg Take 1 tablet by mouth at bedtime as needed for Allergies. [facility] benzonatate 100 mg capsule 2-0 7-03 00:00: 00 Yes [id number] 100mg Take 1 capsule by mouth 3 (three) times daily as needed for Cough. [facility] loratadine (CLARITIN) 10 mg tablet 2-0 7-03 00:00: 00 Yes [id number] 10mg Take 1 tablet by mouth at bedtime as needed for Allergies. [facility] benzonatate 100 mg capsule 2-0 2-01 00:00: 00 Yes [id number] 100mg Take 1 capsule by mouth 3 (three) times daily as needed for Cough. [facility] benzonatate 100 mg capsule 2-0 2-01 00:00: 00 Yes [id number] 100mg Take 1 capsule by mouth 3 (three) times daily as needed for Cough. [facility] benzonatate 100 mg capsule 2022-0 2-01 00:00: 00 Yes [id number] 100mg Take 1 capsule by mouth 3 (three) times daily as needed for Cough. [facility] benzonatate 100 mg capsule 2-0 2-01 00:00: 00 Yes [id number] 100mg Take 1 capsule by mouth 3 (three) times daily as needed for Cough. [facility] mg capsule 2021-0 2- 00:00: 00 Yes [id number] 100mg Take 1 capsule by mouth 3 (three) times daily as needed for Cough. [facility] mg capsule 2-0 2- 00:00: 00 Yes [id number] 100mg Take 1 capsule by mouth 3 (three) times daily as needed for Cough. [facility] mg capsule 2-0 2-01 00:00: 00 Yes [id number] 100mg Take 1 capsule by mouth 3 (three) times daily as needed for Cough. [facility] ben[facility]ate 100 mg capsule 2-0 2-01 00:00: 00 Yes [id number] 100mg Take 1 capsule by mouth 3 (three) times daily as needed for Cough. [facility] mg capsule 2-0 2-01 00:00: 00 Yes [id number] 100mg Take 1 capsule by mouth 3 (three) times daily as needed for Cough. [facility] benzonatate 100 mg capsule 2-0 2- 00:00: 00 Yes [id number] 100mg Take 1 capsule by mouth 3 (three) times daily as needed for Cough. [facility] ampicillin- sulbactam (UNASYN) 3 g in NaCl 0.9% (NS) 100 mL MINI-BAG 2020-07 2-25 01:00: 06-30 00:47 :00 No 3g 3 g, IV Piggyback, ONCE, 1 dose, On Fri06/29/21 at 1900, Administer over 30 Minutes, 100 mL
Reas on for Anti-Infec tive: Documented Infection< br>Documen zoila Infection Site: Abdominal< br>Duratio n of Therapy: Other (see Comments) [facility] iopamidol (ISOVUE 370-500 mL) injection 120 mL 2020-07 00:15: 00 06-29 23:08 :00 No [id number] 120mL 120 mL, Intravenou s, ONCE, 1 dose, On Fri06/29/21 at 1815, Routine [facility] amoxicillin -clavulanat e 875-125 mg per tablet 2020-07 00:00: 00 07-10 05:59 :00 No [id number] 1{tbl} Take 1 tablet by mouth every 12 (twelve) hours for 10 days. [facility] traMADoL 50 mg tablet 2020-07 00:00: 00 07-05 05:59 :00 No [id number] 50mg Take 1 tablet by mouth every 6 (six) hours for 5 days. Indication s: acute pain [facility] ondansetron 4 mg tablet 2020-07 00:00: 00 07-05 05:59 :00 No [id number] 4mg Take 1 tablet by mouth every 8 (eight) hours for 5 days. [facility] atorvastati n (LIPITOR) tablet 10 mg 2020-07 03:00: 00 Yes 10mg 10 mg, Oral, QHS, First dose on Fri05/20/21 at 2100, Until Discontinu ed, Routine [facility] atorvastati n 10 mg tablet 2020-07 17:23: 01 Yes 10mg Take 10 mg by mouth at bedtime. [facility] spironolact one 25 mg tablet 2020-07 17:23: 01 Yes 25mg Take 25 mg by mouth 2 (two) times daily. [facility] pantoprazol e sodium (PANTOPRAZO LE ORAL) 2020-07 17:23: 01 Yes 40mg Take 40 mg by mouth daily. [facility] magnesium gluconate 200 mg tablet 2020-07 17:23: 01 Yes 200mg Take 200 mg by mouth daily. At night as per pt [facility] metformin HCl (METFORMIN ORAL) 2020-07 17:23: 01 Yes 500mg Take 500 mg by mouth at bedtime. [facility] atorvastati n 10 mg tablet 2020-07 17:23: 01 Yes 10mg Take 10 mg by mouth at bedtime. [facility] spironolact one 25 mg tablet 2020-07 17:23: 01 Yes 25mg Take 25 mg by mouth 2 (two) times daily. [facility] pantoprazol e sodium (PANTOPRAZO LE ORAL) 2020-07 17:23: 01 Yes 40mg Take 40 mg by mouth daily. [facility] magnesium gluconate 200 mg tablet 2020-07 17:23: 01 Yes 200mg Take 200 mg by mouth daily. At night as per pt [facility] metformin HCl (METFORMIN ORAL) 2020-07 17:23: 01 Yes 500mg Take 500 mg by mouth at bedtime. [facility] atorvastati n 10 mg tablet 2020-07 17:23: 01 Yes 10mg Take 10 mg by mouth at bedtime. [facility] spironolact one 25 mg tablet 2020-07 17:23: 01 Yes 25mg Take 25 mg by mouth 2 (two) times daily. [facility] pantoprazol e sodium (PANTOPRAZO LE ORAL) 2020-07 17:23: 01 Yes 40mg Take 40 mg by mouth daily. [facility] magnesium gluconate 200 mg tablet 2020-07 17:23: 01 Yes 200mg Take 200 mg by mouth daily. At night as per pt [facility] metformin HCl (METFORMIN ORAL) 2020-07 17:23: 01 Yes 500mg Take 500 mg by mouth at bedtime. [facility] atorvastati n 10 mg tablet 2020-07 17:23: 01 Yes 10mg Take 10 mg by mouth at bedtime. [facility] spironolact one 25 mg tablet 2020-07 17:23: 01 Yes 25mg Take 25 mg by mouth 2 (two) times daily. [facility] pantoprazol e sodium (PANTOPRAZO LE ORAL) 2020-07 17:23: 01 Yes 40mg Take 40 mg by mouth daily. [facility] magnesium gluconate 200 mg tablet 2020-07 17:23: 01 Yes 200mg Take 200 mg by mouth daily. At night as per pt [facility] metformin HCl (METFORMIN ORAL) 2020-07 17:23: 01 Yes 500mg Take 500 mg by mouth at bedtime. [facility] atorvastati n 10 mg tablet 2020-07 17:23: 01 Yes 10mg Take 10 mg by mouth at bedtime. [facility] spironolact one 25 mg tablet 2020-07 17:23: 01 Yes 25mg Take 25 mg by mouth 2 (two) times daily. [facility] pantoprazol e sodium (PANTOPRAZO LE ORAL) 2020-07 17:23: 01 Yes 40mg Take 40 mg by mouth daily. [facility] magnesium gluconate 200 mg tablet 2020-07 17:23: 01 Yes 200mg Take 200 mg by mouth daily. At night as per pt [facility] metformin HCl (METFORMIN ORAL) 2020-07 17:23: 01 Yes 500mg Take 500 mg by mouth at bedtime. [facility] atorvastati n 10 mg tablet 2020-07 17:23: 01 Yes 10mg Take 10 mg by mouth at bedtime. [facility] spironolact one 25 mg tablet 2020-07 17:23: 01 Yes 25mg Take 25 mg by mouth 2 (two) times daily. [facility] pantoprazol e sodium (PANTOPRAZO LE ORAL) 2020-07 17:23: 01 Yes 40mg Take 40 mg by mouth daily. [facility] magnesium gluconate 200 mg tablet 2020-07 17:23: 01 Yes 200mg Take 200 mg by mouth daily. At night as per pt [facility] metformin HCl (METFORMIN ORAL) 2020-07 17:23: 01 Yes 500mg Take 500 mg by mouth at bedtime. [facility] atorvastati n 10 mg tablet 2020-07 17:23: 01 Yes 10mg Take 10 mg by mouth at bedtime. [facility] spironolact one 25 mg tablet 2020-07 17:23: 01 Yes 25mg Take 25 mg by mouth 2 (two) times daily. [facility] pantoprazol e sodium (PANTOPRAZO LE ORAL) 2020-07 17:23: 01 Yes 40mg Take 40 mg by mouth daily. [facility] magnesium gluconate 200 mg tablet 2020-07 17:23: 01 Yes 200mg Take 200 mg by mouth daily. At night as per pt [facility] metformin HCl (METFORMIN ORAL) 2020-07 17:23: 01 Yes 500mg Take 500 mg by mouth at bedtime. [facility] atorvastati n 10 mg tablet 2020-07 17:23: 01 Yes 10mg Take 10 mg by mouth at bedtime. [facility] spironolact one 25 mg tablet 2020-07 17:23: 01 Yes 25mg Take 25 mg by mouth 2 (two) times daily. [facility] pantoprazol e sodium (PANTOPRAZO LE ORAL) 2020-07 17:23: 01 Yes 40mg Take 40 mg by mouth daily. [facility] magnesium gluconate 200 mg tablet 2020-07 17:23: 01 Yes 200mg Take 200 mg by mouth daily. At night as per pt [facility] metformin HCl (METFORMIN ORAL) 2020-07 17:23: 01 Yes 500mg Take 500 mg by mouth at bedtime. [facility] atorvastati n 10 mg tablet 2020-07 17:23: 01 Yes 10mg Take 10 mg by mouth at bedtime. [facility] spironolact one 25 mg tablet 2020-07 17:23: 01 Yes 25mg Take 25 mg by mouth 2 (two) times daily. [facility] pantoprazol e sodium (PANTOPRAZO LE ORAL) 2020-07 17:23: 01 Yes 40mg Take 40 mg by mouth daily. [facility] magnesium gluconate 200 mg tablet 2020-07 17:23: 01 Yes 200mg Take 200 mg by mouth daily. At night as per pt [facility] metformin HCl (METFORMIN ORAL) 2020-07 17:23: 01 Yes 500mg Take 500 mg by mouth at bedtime. [facility] atorvastati n 10 mg tablet 2020-07 17:23: 01 Yes 10mg Take 10 mg by mouth at bedtime. [facility] spironolact one 25 mg tablet 2020-07 17:23: 01 Yes 25mg Take 25 mg by mouth 2 (two) times daily. [facility] pantoprazol e sodium (PANTOPRAZO LE ORAL) 2020-07 17:23: 01 Yes 40mg Take 40 mg by mouth daily. [facility] magnesium gluconate 200 mg tablet 2020-07 17:23: 01 Yes 200mg Take 200 mg by mouth daily. At night as per pt [facility] metformin HCl (METFORMIN ORAL) 2020-07 17:23: 01 Yes 500mg Take 500 mg by mouth at bedtime. [facility] atorvastati n 10 mg tablet 2020-07 17:23: 01 Yes 10mg Take 10 mg by mouth at bedtime. [facility] spironolact one 25 mg tablet 2020-07 17:23: 01 Yes 25mg Take 25 mg by mouth 2 (two) times daily. [facility] pantoprazol e sodium (PANTOPRAZO LE ORAL) 2020-07 17:23: 01 Yes 40mg Take 40 mg by mouth daily. [facility] magnesium gluconate 200 mg tablet 2020-07 17:23: 01 Yes 200mg Take 200 mg by mouth daily. At night as per pt [facility] metformin HCl (METFORMIN ORAL) 2020-07 17:23: 01 Yes 500mg Take 500 mg by mouth at bedtime. [facility] atorvastati n 10 mg tablet 2020-07 17:23: 01 Yes 10mg Take 10 mg by mouth at bedtime. [facility] spironolact one 25 mg tablet 2020-07 17:23: 01 Yes 25mg Take 25 mg by mouth 2 (two) times daily. [facility] pantoprazol e sodium (PANTOPRAZO LE ORAL) 2020-07 17:23: 01 Yes 40mg Take 40 mg by mouth daily. [facility] magnesium gluconate 200 mg tablet 2020-07 17:23: 01 Yes 200mg Take 200 mg by mouth daily. At night as per pt [facility] metformin HCl (METFORMIN ORAL) 2020-07 17:23: 01 Yes 500mg Take 500 mg by mouth at bedtime. [facility] atorvastati n 10 mg tablet 2020-07 17:23: 01 Yes 10mg Take 10 mg by mouth at bedtime. [facility] spironolact one 25 mg tablet 2020-07 17:23: 01 Yes 25mg Take 25 mg by mouth 2 (two) times daily. [facility] pantoprazol e sodium (PANTOPRAZO LE ORAL) 2020-07 17:23: 01 Yes 40mg Take 40 mg by mouth daily. [facility] magnesium gluconate 200 mg tablet 2020-07 17:23: 01 Yes 200mg Take 200 mg by mouth daily. At night as per pt [facility] metformin HCl (METFORMIN ORAL) 2020-07 17:23: 01 Yes 500mg Take 500 mg by mouth at bedtime. [facility] enoxaparin (LOVENOX) injection 40 mg 2020-07 15:00: 00 Yes 40mg 40 mg, Subcutaneo us, DAILY, First dose on 05/20/21 at 0900, Until Discontinu ed, Routine [facility] clopidogreL (PLAVIX) tablet 75 mg 2020-07 15:00: 00 Yes 75mg 75 mg, Oral, QAM, First dose on 05/20/21 at 0900, Until Discontinu ed, Routine [facility] ALPRAZolam (XANAX) tablet 0.5 mg 2020-07 15:00: 00 Yes .5mg 0.5 mg, Oral, DAILY, First dose on 05/20/21 at 0900, Until Discontinu ed, Routine [facility] spironolact one (ALDACTONE) tablet 25 mg 2020-07 14:00: 00 Yes 25mg 25 mg, Oral, BID, First dose on 05/20/21 at 0800, Until Discontinu ed, Routine [facility] Sliding Scale Insulin-Reg ular + Fsbg Testing 2020-07 13:30: 00 Yes Subcutaneo us, AC, First dose on 05/20/21 at 0730, Until Discontinu ed, Routine [facility] levothyroxi ne (SYNTHROID) tablet 100 mcg 2020-07 12:00: 00 Yes 100ug 100 mcg, Oral, QAM-0600, First dose on 05/20/21 at 0600, Until Discontinu ed, Routine [facility] pantoprazol e (PROTONIX) EC tablet 40 mg 2020-07 06:30: 00 Yes 40mg 40 mg, Oral, DAILY, First dose (after last modificati on) on 05/20/21 at 0030, Until Discontinu ed [facility] cyclobenzap rine (FLEXERIL) tablet 10 mg 2020-07 06:12: 13 Yes 10mg 10 mg, Oral, TIDPRN, Starting on 05/20/21 at 0012, Until Discontinu ed, Routine, Muscle Spasms, leg pain [facility] polyethylen e glycol 3350 powder 17 g 2020-07 06:04: 16 Yes 17g 17 g, Oral, [id number], Starting on 05/20/21 at 0004, Until Discontinu ed, Routine, Constipati on [facility] glucagon (GLUCAGEN DIAGNOSTIC KIT) injection 1 mg 2020-07 05:29: 29 Yes 1mg 1 mg, Intramuscu lar, PRN, Starting on 05/19/21 at 2329, Until Discontinu ed, JEFFREY, Blood Glucose < or = 70 mg/dL and patient is unable to swallow or has mental changes. [facility] dextrose 50 % in water (D50W) injection 25 mL 2020-07 05:29: 29 Yes 25mL 25 mL, Slow IV Push, PRN, Starting on 05/19/21 at 2329, Until Discontinu ed, JEFFREY, Blood Glucose < or = 70 mg/dL and patient is unable to swallow or has mental status changes. [facility] ondansetron (ZOFRAN (PF)) injection 4 mg 2020-07 05:29: 21 Yes 4mg 4 mg, Slow IV Push, Q6HPRN, Starting on 05/19/21 at 2329, Until Discontinu ed, Routine, Nausea and Vomiting (N/V) [facility] morpHINE injection 2 mg 2020-07 05:29: 11 05-21 05:28 :11 No 2mg 2 mg, Slow IV Push, Q4HPRN, Starting on 05/19/21 at 2329, Until 05/20/21 at 2328, Routine, Pain (scale 7-10), Chest pain [facility] traMADoL (ULTRAM) tablet 50 mg 2020-07 05:29: 08 05-22 05:28 :08 No 50mg 50 mg, Oral, Q8HPRN, Starting on 05/19/21 at 2329, Until 05/21/21 at 2328, Routine, Pain (scale 4-6) [facility] acetaminoph en (TYLENOL) tablet 650 mg 2020-0714 05:29: 05 Yes 650mg 650 mg, Oral, Q6HPRN, Starting on 05/19/21 at 2329, Until Discontinu ed, Routine, Pain (scale 1-3) [facility] omeprazole 20 mg capsule 2020-07 23:30: 33 05-19 00:00 :00 No 20mg Take 20 mg by mouth daily. [facility] guaiFENesin 100 mg/5 mL solution 100 mg 09-14 05:00: 00 09-14 16:59 :00 No 100mg 100 mg, Oral, ONCE, 1 dose, Fri09/13/20 at 2300, Routine [facility] ketorolac (TORADOL) injection 30 mg 09-14 03:30: 00 09-14 02:27 :00 No 30mg 30 mg, Slow IV Push, ONCE, 1 dose, Fri09/13/20 at 2130, JEFFREY
Fa culty member approving Restricted medication : DIANA BERG [facility] benzonatate 100 mg capsule 09-13 00:00: 00 Yes [id number] 100mg Take 1 capsule by mouth 3 (three) times daily as needed for Cough. [facility] benzonatate 100 mg capsule 09-13 00:00: 00 Yes [id number] 100mg Take 1 capsule by mouth 3 (three) times daily as needed for Cough. [facility] benzonatate 100 mg capsule 09-13 00:00: 00 05-19 00:00 :00 No [id number] 100mg Take 1 capsule by mouth 3 (three) times daily as needed for Cough. [facility] ipratropium -albuterol (DUONEB) 0.5 mg-3 mg(2.5 mg base)/3 mL nebulizer solution 6 mL 07-28 02:15: 00 07-28 01:21 :00 No 6mL 6 mL, Inhalation , ONCE, 1 dose, Fri07/27/19 at 2015, Routine [facility] codeine-gua ifenesin (ROBITUSSIN AC) 10-100 mg/5 mL solution 10 mL 07-28 01:30: 00 07-28 00:55 :00 No 10mL 10 mL, Oral, ONCE, 1 dose, 07/27/19 at 1930, JEFFREY [facility] codeine-gua ifenesin 10-100 mg/5 mL solution 07-27 00:00: 00 Yes [id number] 10mL Take 10 mL by mouth every 6 (six) hours as needed for Cough. [facility] albuterol 2.5 mg /3 mL (0.083 %) nebulizer solution 07-27 00:00: 00 Yes [id number] 2.5mg Inhale 3 mL every 4 (four) hours as needed for Wheezing or Shortness of Breath. May also nebulize one extra every 6 hours. [facility] albuterol 2.5 mg /3 mL (0.083 %) nebulizer solution 07-27 00:00: 00 Yes [id number] 2.5mg Inhale 3 mL every 4 (four) hours as needed for Wheezing or Shortness of Breath. May also nebulize one extra every 6 hours. [facility] albuterol 2.5 mg /3 mL (0.083 %) nebulizer solution 07-27 00:00: 00 Yes [id number] 2.5mg Inhale 3 mL every 4 (four) hours as needed for Wheezing or Shortness of Breath. May also nebulize one extra every 6 hours. [facility] albuterol 2.5 mg /3 mL (0.083 %) nebulizer solution 07-27 00:00: 00 Yes [id number] 2.5mg Inhale 3 mL every 4 (four) hours as needed for Wheezing or Shortness of Breath. May also nebulize one extra every 6 hours. [facility] albuterol 2.5 mg /3 mL (0.083 %) nebulizer solution 07-27 00:00: 00 Yes [id number] 2.5mg Inhale 3 mL every 4 (four) hours as needed for Wheezing or Shortness of Breath. May also nebulize one extra every 6 hours. [facility] albuterol 2.5 mg /3 mL (0.083 %) nebulizer solution 07-27 00:00: 00 Yes [id number] 2.5mg Inhale 3 mL every 4 (four) hours as needed for Wheezing or Shortness of Breath. May also nebulize one extra every 6 hours. [facility] albuterol 2.5 mg /3 mL (0.083 %) nebulizer solution 07-27 00:00: 00 Yes [id number] 2.5mg Inhale 3 mL every 4 (four) hours as needed for Wheezing or Shortness of Breath. May also nebulize one extra every 6 hours. [facility] albuterol 2.5 mg /3 mL (0.083 %) nebulizer solution 07-27 00:00: 00 Yes [id number] 2.5mg Inhale 3 mL every 4 (four) hours as needed for Wheezing or Shortness of Breath. May also nebulize one extra every 6 hours. [facility] albuterol 2.5 mg /3 mL (0.083 %) nebulizer solution 07-27 00:00: 00 Yes [id number] 2.5mg Inhale 3 mL every 4 (four) hours as needed for Wheezing or Shortness of Breath. May also nebulize one extra every 6 hours. [facility] albuterol 2.5 mg /3 mL (0.083 %) nebulizer solution 07-27 00:00: 00 Yes [id number] 2.5mg Inhale 3 mL every 4 (four) hours as needed for Wheezing or Shortness of Breath. May also nebulize one extra every 6 hours. [facility] albuterol 2.5 mg /3 mL (0.083 %) nebulizer solution 07-27 00:00: 00 Yes [id number] 2.5mg Inhale 3 mL every 4 (four) hours as needed for Wheezing or Shortness of Breath. May also nebulize one extra every 6 hours. [facility] albuterol 2.5 mg /3 mL (0.083 %) nebulizer solution 07-27 00:00: 00 Yes [id number] 2.5mg Inhale 3 mL every 4 (four) hours as needed for Wheezing or Shortness of Breath. May also nebulize one extra every 6 hours. [facility] albuterol 2.5 mg /3 mL (0.083 %) nebulizer solution 07-27 00:00: 00 Yes [id number] 2.5mg Inhale 3 mL every 4 (four) hours as needed for Wheezing or Shortness of Breath. May also nebulize one extra every 6 hours. [facility] albuterol 2.5 mg /3 mL (0.083 %) nebulizer solution 07-27 00:00: 00 Yes [id number] 2.5mg Inhale 3 mL every 4 (four) hours as needed for Wheezing or Shortness of Breath. May also nebulize one extra every 6 hours. [facility] albuterol 2.5 mg /3 mL (0.083 %) nebulizer solution 07-27 00:00: 00 Yes [id number] 2.5mg Inhale 3 mL every 4 (four) hours as needed for Wheezing or Shortness of Breath. May also nebulize one extra every 6 hours. [facility] albuterol 2.5 mg /3 mL (0.083 %) nebulizer solution 07-27 00:00: 00 Yes [id number] 2.5mg Inhale 3 mL every 4 (four) hours as needed for Wheezing or Shortness of Breath. May also nebulize one extra every 6 hours. [facility] codeine-gua ifenesin 10-100 mg/5 mL solution 07-27 00:00: 00 09-13 00:00 :00 No [id number] 10mL Take 10 mL by mouth every 6 (six) hours as needed for Cough. [facility] ondansetron (ZOFRAN (PF)) injection 4 mg 03-11 20:30: 00 03-11 19:53 :00 No 4mg 4 mg, Slow IV Push, ONCE, 1 dose, [facility] 03/11/19 at 1530, JEFFREY [facility] NaCl 0.9% (NS) bolus infusion 1,000 mL 03-11 19:30: 00 03-11 20:56 :00 No 1000mL at 999 mL/hr, 1,000 mL, IV Infusion, ONCE, 1 dose, [facility] 03/11/19 at 1430, JEFFREY [facility] dicyclomine (BENTYL) 10 mg capsule 03-11 00:00: 00 Yes [id number] 10mg Take 1 capsule by mouth 4 (four) times daily. [facility] ondansetron 4 mg disintegrat ing tablet 03-11 00:00: 00 Yes [id number] 4mg Take 1 tablet by mouth every 4 (four) hours as needed for Nausea and Vomiting (N/V). [facility] dicyclomine (BENTYL) 10 mg capsule 03-11 00:00: 00 Yes [id number] 10mg Take 1 capsule by mouth 4 (four) times daily. [facility] ondansetron 4 mg disintegrat ing tablet 03-11 00:00: 00 Yes [id number] 4mg Take 1 tablet by mouth every 4 (four) hours as needed for Nausea and Vomiting (N/V). [facility] dicyclomine (BENTYL) 10 mg capsule 03-11 00:00: 00 Yes [id number] 10mg Take 1 capsule by mouth 4 (four) times daily. [facility] ondansetron 4 mg disintegrat ing tablet 03-11 00:00: 00 Yes [id number] 4mg Take 1 tablet by mouth every 4 (four) hours as needed for Nausea and Vomiting (N/V). [facility] dicyclomine (BENTYL) 10 mg capsule 03-11 00:00: 00 09-13 00:00 :00 No [id number] 10mg Take 1 capsule by mouth 4 (four) times daily. [facility] ondansetron 4 mg disintegrat ing tablet 03-11 00:00: 09-13 00:00 :00 No [id number] 4mg Take 1 tablet by mouth every 4 (four) hours as needed for Nausea and Vomiting (N/V). [facility] 2017-07 0 00:00: 00 Yes 100mg Take 1 capsule by mouth 3 (three) times daily as needed for Cough. [facility] acetaminoph en-codeine (TYLENOL-CO DEINE #3) 300-30 mg tablet 2017-07 0 00:00: 00 Yes 1{tbl} Take 1 tablet by mouth every 4 (four) hours as needed for Pain (scale 7-10). [facility] acetaminoph en-codeine (TYLENOL-CO DEINE #3) 300-30 mg tablet 2017-07 0 00:00: 00 Yes 1{tbl} Take 1 tablet by mouth every 4 (four) hours as needed for Pain (scale 7-10). [facility] benzonatate 100 mg capsule 2017-07 0 00:00: 00 Yes 100mg Take 1 capsule by mouth 3 (three) times daily as needed for Cough. [facility] acetaminoph en-codeine (TYLENOL-CO DEINE #3) 300-30 mg tablet 2017-07 0 00:00: 00 Yes 1{tbl} Take 1 tablet by mouth every 4 (four) hours as needed for Pain (scale 7-10). [facility] acetaminoph en-codeine (TYLENOL-CO DEINE #3) 300-30 mg tablet 2017-07 0 00:00: 00 Yes 1{tbl} Take 1 tablet by mouth every 4 (four) hours as needed for Pain (scale 7-10). [facility] benzonatate 100 mg capsule 2017-07 0 00:00: 00 Yes 100mg Take 1 capsule by mouth 3 (three) times daily as needed for Cough. [facility] acetaminoph en-codeine (TYLENOL-CO DEINE #3) 300-30 mg tablet 2017-07 0 00:00: 00 Yes 1{tbl} Take 1 tablet by mouth every 4 (four) hours as needed for Pain (scale 7-10). [facility] acetaminoph en-codeine (TYLENOL-CO DEINE #3) 300-30 mg tablet 2017-07 0 00:00: 00 Yes 1{tbl} Take 1 tablet by mouth every 4 (four) hours as needed for Pain (scale 7-10). [facility] benzonatate 100 mg capsule 2017-07 0- 00:00: 00 09-13 00:00 :00 No 100mg Take 1 capsule by mouth 3 (three) times daily as needed for Cough. [facility] acetaminoph en-codeine (TYLENOL-CO DEINE #3) 300-30 mg tablet 2017-07 0 00:00: 00 09-13 00:00 :00 No 1{tbl} Take 1 tablet by mouth every 4 (four) hours as needed for Pain (scale 7-10). [facility] acetaminoph en-codeine (TYLENOL-CO DEINE #3) 300-30 mg tablet 2017-07 00:00: 00 09-13 00:00 :00 No 1{tbl} Take 1 tablet by mouth every 4 (four) hours as needed for Pain (scale 7-10). [facility] atorvastati n 10 mg tablet 10-14 14:40: 51 Yes 10mg Take 10 mg by mouth at bedtime. [facility] omeprazole 20 mg capsule 10-14 14:40: 51 Yes 20mg Take 20 mg by mouth daily. [facility] atorvastati n 10 mg tablet 10-14 14:40: 51 Yes 10mg Take 10 mg by mouth at bedtime. [facility] omeprazole 20 mg capsule 10-14 14:40: 51 Yes 20mg Take 20 mg by mouth daily. [facility] atorvastati n 10 mg tablet 10-14 14:40: 51 Yes 10mg Take 10 mg by mouth at bedtime. [facility] omeprazole 20 mg capsule 10-14 14:40: 51 Yes 20mg Take 20 mg by mouth daily. [facility] atorvastati n 10 mg tablet 10-14 14:40: 51 Yes 10mg Take 10 mg by mouth at bedtime. [facility] omeprazole 20 mg capsule 10-14 14:40: 51 Yes 20mg Take 20 mg by mouth daily. [facility] atorvastati n 10 mg tablet 10-14 14:40: 51 Yes 10mg Take 10 mg by mouth at bedtime. [facility] omeprazole 20 mg capsule 10-14 14:40: 51 Yes 20mg Take 20 mg by mouth daily. [facility] levothyroxi ne 125 mcg tablet 10-14 00:00: 00 Yes TAKE 1 TABLET BY MOUTH EVERY MORNING [facility] levothyroxi ne 125 mcg tablet 10-14 00:00: 00 Yes TAKE 1 TABLET BY MOUTH EVERY MORNING [facility] levothyroxi ne 125 mcg tablet 10-14 00:00: 00 Yes TAKE 1 TABLET BY MOUTH EVERY MORNING [facility] levothyroxi ne 125 mcg tablet 10-14 00:00: 00 Yes TAKE 1 TABLET BY MOUTH EVERY MORNING [facility] levothyroxi ne 125 mcg tablet 10-14 00:00: 00 Yes TAKE 1 TABLET BY MOUTH EVERY MORNING [facility] levothyroxi ne 125 mcg tablet 10-14 00:00: 00 Yes TAKE 1 TABLET BY MOUTH EVERY MORNING [facility] levothyroxi ne 125 mcg tablet 10-14 00:00: 00 Yes TAKE 1 TABLET BY MOUTH EVERY MORNING [facility] levothyroxi ne 125 mcg tablet 10-14 00:00: 00 Yes TAKE 1 TABLET BY MOUTH EVERY MORNING [facility] levothyroxi ne 125 mcg tablet 10-14 00:00: 00 Yes TAKE 1 TABLET BY MOUTH EVERY MORNING [facility] levothyroxi ne 125 mcg tablet 10-14 00:00: 00 Yes TAKE 1 TABLET BY MOUTH EVERY MORNING [facility] levothyroxi ne 125 mcg tablet 10-14 00:00: 00 Yes TAKE 1 TABLET BY MOUTH EVERY MORNING [facility] levothyroxi ne 125 mcg tablet 10-14 00:00: 00 Yes TAKE 1 TABLET BY MOUTH EVERY MORNING [facility] levothyroxi ne 125 mcg tablet 10-14 00:00: 00 Yes TAKE 1 TABLET BY MOUTH EVERY MORNING [facility] levothyroxi ne 125 mcg tablet 10-14 00:00: 00 Yes TAKE 1 TABLET BY MOUTH EVERY MORNING [facility] levothyroxi ne 125 mcg tablet 10-14 00:00: 00 Yes TAKE 1 TABLET BY MOUTH EVERY MORNING [facility] levothyroxi ne 125 mcg tablet 10-14 00:00: 00 Yes TAKE 1 TABLET BY MOUTH EVERY MORNING [facility] levothyroxi ne 125 mcg tablet 10-14 00:00: 00 Yes TAKE 1 TABLET BY MOUTH EVERY MORNING [facility] levothyroxi ne 125 mcg tablet 10-14 00:00: 00 Yes TAKE 1 TABLET BY MOUTH EVERY MORNING [facility] SYMBICORT 160-4.5 mcg/actuati on inhaler 10-01 00:00: 00 Yes TAKE 2 PUFFS BY MOUTH TWICE A DAY [facility] SYMBICORT 160-4.5 mcg/actuati on inhaler 10-01 00:00: 00 Yes TAKE 2 PUFFS BY MOUTH TWICE A DAY [facility] SYMBICORT 160-4.5 mcg/actuati on inhaler 10-01 00:00: 00 Yes TAKE 2 PUFFS BY MOUTH TWICE A DAY [facility] SYMBICORT 160-4.5 mcg/actuati on inhaler 10-01 00:00: 00 Yes TAKE 2 PUFFS BY MOUTH TWICE A DAY [facility] SYMBICORT 160-4.5 mcg/actuati on inhaler 10-01 00:00: 00 Yes TAKE 2 PUFFS BY MOUTH TWICE A DAY [facility] SYMBICORT 160-4.5 mcg/actuati on inhaler 10-01 00:00: 00 2020- 05-19 00:00 :00 No TAKE 2 PUFFS BY MOUTH TWICE A DAY [facility] ALPRAZolam 0.25 mg tablet 09-30 00:00: 00 Yes TAKE 1 TABLET BY MOUTH EVERY DAY NEEDED [facility] diltiazem 60 mg tablet 09-30 00:00: 00 Yes TAKE 1 TABLET BY MOUTH TWICE A DAY [facility] ALPRAZolam 0.25 mg tablet 09-30 00:00: 00 Yes TAKE 1 TABLET BY MOUTH EVERY DAY NEEDED [facility] diltiazem 60 mg tablet 09-30 00:00: 00 Yes TAKE 1 TABLET BY MOUTH TWICE A DAY [facility] ALPRAZolam 0.25 mg tablet 09-30 00:00: 00 Yes .5mg Take 0.5 mg by mouth daily. [facility] 0.25 mg tablet 09-30 00:00: 00 Yes .5mg Take 0.5 mg by mouth daily. Pt taking 0.5mg daily [facility] ALPRAZolam 0.25 mg tablet 09-30 00:00: 00 Yes .5mg Take 0.5 mg by mouth daily. Pt taking 0.5mg daily [facility] ALPRAZolam 0.25 mg tablet 09-30 00:00: 00 Yes TAKE 1 TABLET BY MOUTH EVERY DAY NEEDED [facility] ALPRAZolam 0.25 mg tablet 09-30 00:00: 00 Yes .5mg Take 0.5 mg by mouth daily. Pt taking 0.5mg daily [facility] diltiazem 60 mg tablet 09-30 00:00: 00 Yes TAKE 1 TABLET BY MOUTH TWICE A DAY [facility] ALPRAZolam 0.25 mg tablet 09-30 00:00: 00 Yes .5mg Take 0.5 mg by mouth daily. Pt taking 0.5mg daily [facility] AL[facility] 0.25 mg tablet 09-30 00:00: 00 Yes .5mg Take 0.5 mg by mouth daily. Pt taking 0.5mg daily [facility] ALPRAZolam 0.25 mg tablet 09-30 00:00: 00 Yes .5mg Take 0.5 mg by mouth daily. Pt taking 0.5mg daily [facility] ALPRAZolam 0.25 mg tablet 09-30 00:00: 00 Yes .5mg Take 0.5 mg by mouth daily. Pt taking 0.5mg daily [facility] ALPRAZolam 0.25 mg tablet 09-30 00:00: 00 Yes .5mg Take 0.5 mg by mouth daily. Pt taking 0.5mg daily [facility] ALPRAZolam 0.25 mg tablet 09-30 00:00: 00 Yes .5mg Take 0.5 mg by mouth daily. Pt taking 0.5mg daily [facility] AL[facility] 0.25 mg tablet 09-30 00:00: 00 Yes .5mg Take 0.5 mg by mouth daily. Pt taking 0.5mg daily [facility] ALPR[facility]am 0.25 mg tablet 09-30 00:00: 00 Yes .5mg Take 0.5 mg by mouth daily. Pt taking 0.5mg daily [facility] ALPRAZ[facility]am 0.25 mg tablet 09-30 00:00: 00 Yes .5mg Take 0.5 mg by mouth daily. Pt taking 0.5mg daily [facility] ALPR[facility]am 0.25 mg tablet 09-30 00:00: 00 Yes TAKE 1 TABLET BY MOUTH EVERY DAY NEEDED [facility] dilt[facility]em 60 mg tablet 09-30 00:00: 00 Yes TAKE 1 TABLET BY MOUTH TWICE A DAY [facility] ALPRAZolam 0.25 mg tablet 09-30 00:00: 00 Yes TAKE 1 TABLET BY MOUTH EVERY DAY [facility]ED [facility] dilt[facility]em 60 mg tablet 09-30 00:00: 00 Yes TAKE 1 TABLET BY MOUTH TWICE A DAY [facility] diltiazem 60 mg tablet 09-30 00:00: 00 202- 11- 00:00 :00 No TAKE 1 TABLET BY MOUTH TWICE A DAY [facility] losartan 25 mg tablet 0 2-16 00:00: 00 Yes TAKE 1 TABLET BY MOUTH EVERY MORNING [facility] losartan 25 mg tablet 0 2-16 00:00: 00 Yes TAKE 1 TABLET BY MOUTH EVERY MORNING [facility] losartan 25 mg tablet 0 2-16 00:00: 00 Yes TAKE 1 TABLET BY MOUTH EVERY MORNING [facility] losartan 25 mg tablet 0 2-16 00:00: 00 Yes TAKE 1 TABLET BY MOUTH EVERY MORNING [facility] losartan 25 mg tablet 0 2-16 00:00: 00 Yes TAKE 1 TABLET BY MOUTH EVERY MORNING [facility] losartan 25 mg tablet 0 16 00:00: 00 05-19 00:00 :00 No TAKE 1 TABLET BY MOUTH EVERY MORNING [facility] clopidogrel 75 mg tablet 0 2-06 00:00: 00 Yes TAKE 1 TABLET BY MOUTH EVERY MORNING [facility] clopidogrel 75 mg tablet 0 2-06 00:00: 00 Yes TAKE 1 TABLET BY MOUTH EVERY MORNING [facility] clopidogrel 75 mg tablet 0 206 00:00: 00 Yes TAKE 1 TABLET BY MOUTH EVERY MORNING [facility] clopidogrel 75 mg tablet 0 2-06 00:00: 00 Yes TAKE 1 TABLET BY MOUTH EVERY MORNING [facility] clopidogrel 75 mg tablet 0 2-06 00:00: 00 Yes TAKE 1 TABLET BY MOUTH EVERY MORNING [facility] clopidogrel 75 mg tablet 0 2-06 00:00: 00 Yes TAKE 1 TABLET BY MOUTH EVERY MORNING [facility] clopidogrel 75 mg tablet 0 2-06 00:00: 00 Yes TAKE 1 TABLET BY MOUTH EVERY MORNING [facility] clopidogrel 75 mg tablet 0 2-06 00:00: 00 Yes TAKE 1 TABLET BY MOUTH EVERY MORNING [facility] clopidogrel 75 mg tablet 0 2-06 00:00: 00 Yes TAKE 1 TABLET BY MOUTH EVERY MORNING [facility] clopidogrel 75 mg tablet 0 2-06 00:00: 00 Yes TAKE 1 TABLET BY MOUTH EVERY MORNING [facility] clopidogrel 75 mg tablet 08-12 00:00: 00 Yes TAKE 1 TABLET BY MOUTH EVERY MORNING [facility] clopidogrel 75 mg tablet 08-12 00:00: 00 Yes TAKE 1 TABLET BY MOUTH EVERY MORNING [facility] clopidogrel 75 mg tablet 08-12 00:00: 00 Yes TAKE 1 TABLET BY MOUTH EVERY MORNING [facility] clopidogrel 75 mg tablet 08-12 00:00: 00 Yes TAKE 1 TABLET BY MOUTH EVERY MORNING [facility] clopidogrel 75 mg tablet 08-12 00:00: 00 Yes TAKE 1 TABLET BY MOUTH EVERY MORNING [facility] clopidogrel 75 mg tablet 08-12 00:00: 00 Yes TAKE 1 TABLET BY MOUTH EVERY MORNING [facility] clopidogrel 75 mg tablet 08-12 00:00: 00 Yes TAKE 1 TABLET BY MOUTH EVERY MORNING [facility] clopidogrel 75 mg tablet 08-12 00:00: 00 Yes TAKE 1 TABLET BY MOUTH EVERY MORNING [facility] Vital Signs Vital Name Observation Time Observation Value Comments S ource Systolic blood pressure 2023-02-26 20:38:00 149 mm[Hg] [facility] Diastolic blood pressure 2023-02-26 20:38:00 75 mm[Hg] [facility] Heart rate 2023-02-26 20:38:00 81 /min [facility] Body temperature 2023-02-26 20:38:00 36.72 Brittany [facility] Respiratory rate 2023-02-26 20:38:00 18 /min [facility] Body height 2023-02-26 20:38:00 170.2 cm [facility] Body weight 2023-02-26 20:38:00 57.607 kg [facility] BMI 2023-02-26 20:38:00 19.89 kg/m2 [facility] Oxygen saturation in Arterial blood by Pulse oximetry 2023-02-26 20:38:00 100 /min [facility] Systolic blood pressure 2022-08-24 15:43:00 135 mm[Hg] [facility] Diastolic blood pressure 2022-08-24 15:43:00 83 mm[Hg] [facility] Heart rate 2022-08-24 15:43:00 94 /min [facility] Body temperature 2022-08-24 15:43:00 36.83 Brittany [facility] Respiratory rate 2022-08-24 15:43:00 18 /min [facility] Body height 2022-08-24 15:43:00 170.2 cm [facility] Body weight 2022-08-24 15:43:00 58.968 kg [facility] BMI 2022-08-24 15:43:00 20.36 kg/m2 [facility] Oxygen saturation in Arterial blood by Pulse oximetry 2022-08-24 15:43:00 99 /min [facility] Systolic blood pressure 2022-01-08 02:02:00 147 mm[Hg] [facility] Diastolic blood pressure 2022-01-08 02:02:00 78 mm[Hg] [facility] Heart rate 2022-01-08 02:02:00 78 /[facility] 2022-01-08 02:02:00 18 /min [facility] Oxygen saturation in Arterial blood by Pulse oximetry 2022-01-08 02:02:00 100 /min [facility] Body temperature 2022-01-07 23:24:00 37.17 Brittany [facility] Body weight 2022-01-07 23:24:00 58.968 kg [facility] BMI 2022-01-07 23:24:00 20.36 kg/m2 [facility] Systolic blood pressure 2022-01-06 20:29:00 140 mm[Hg] [facility] Diastolic blood pressure 2022-01-06 20:29:00 106 mm[Hg] [facility] Heart rate 2022-01-06 20:29:00 102 /min [facility] Body temperature 2022-01-06 20:29:00 37.5 Rbittany [facility] Respiratory rate 2022-01-06 20:29:00 16 /min [facility] Body height 2022-01-06 20:29:00 170.2 cm [facility] Body weight 2022-01-06 20:29:00 58.968 kg [facility] BMI 2022-01-06 20:29:00 20.36 kg/m2 [facility] Oxygen saturation in Arterial blood by Pulse oximetry 2022-01-06 20:29:00 99 /min [facility] Systolic blood pressure 2021-09-02 01:52:00 132 mm[Hg] [facility] Diastolic blood pressure 2021-09-02 01:52:00 75 mm[Hg] [facility] Heart rate 2021-09-02 01:52:00 67 /min [facility] Respiratory rate 2021-09-02 01:52:00 16 /min [facility] Oxygen saturation in Arterial blood by Pulse oximetry 2021-09-02 01:52:00 99 /min [facility] Body temperature 2021-09-01 23:57:00 36.17 Brittany [facility] Body height 2021-09-01 23:57:00 170.2 cm [facility] Body weight 2021-09-01 23:57:00 58.968 kg [facility] BMI 2021-09-01 23:57:00 20.36 kg/m2 [facility] Systolic blood pressure 2021-08-07 15:57:00 165 mm[Hg] [facility] Diastolic blood pressure 2021-08-07 15:57:00 71 mm[Hg] [facility] Heart rate 2021-08-07 15:57:00 97 /min [facility] Body temperature 2021-08-07 15:57:00 37.44 Brittany [facility] Respiratory rate 2021-08-07 15:57:00 18 /min [facility] Body height 2021-08-07 15:57:00 170.2 cm [facility] Body weight 2021-08-07 15:57:00 56.7 kg [facility] BMI 2021-08-07 15:57:00 19.58 kg/m2 [facility] Oxygen saturation in Arterial blood by Pulse oximetry 2021-08-07 15:57:00 98 /min [facility] Systolic blood pressure 2021-06-30 01:29:00 132 mm[Hg] [facility] Diastolic blood pressure 2021-06-30 01:29:00 75 mm[Hg] [facility] Heart rate 2021-06-30 01:29:00 75 /min [facility] Respiratory rate 2021-06-30 01:29:00 18 /min [facility] Oxygen saturation in Arterial blood by Pulse oximetry 2021-06-30 01:29:00 100 /min [facility] Body temperature 2021-06-29 22:01:00 36.67 Brittany [facility] Body weight 2021-06-29 22:01:00 53.071 kg [facility] BMI 2021-06-29 22:01:00 18.32 kg/m2 [facility] Systolic blood pressure 2021-05-20 21:45:00 137 mm[Hg] [facility] Diastolic blood pressure 2021-05-20 21:45:00 75 mm[Hg] [facility] Heart rate 2021-05-20 21:45:00 75 /min [facility] Body temperature 2021-05-20 21:45:00 36.5 [facility] [facility] Respiratory rate 2021-05-20 21:45:00 16 /min [facility] Oxygen saturation in Arterial blood by Pulse oximetry 2021-05-20 21:45:00 97 /min [facility] Body weight 2021-05-20 04:14:00 53.479 kg [facility] BMI 2021-05-20 04:14:00 18.47 kg/m2 [facility] Body height 2021-05-20 03:42:00 170.2 cm [facility] Systolic blood pressure 2020-09-14 03:30:00 147 mm[Hg] [facility] Diastolic blood pressure 2020-09-14 03:30:00 89 mm[Hg] [facility] Heart rate 2020-09-14 03:30:00 73 /min [facility] Respiratory rate 2020-09-14 03:30:00 19 /min [facility] Oxygen saturation in Arterial blood by Pulse oximetry 2020-09-14 03:30:00 97 /min [facility] Body temperature 2020-09-14 02:10:00 36.5 Brittany [facility] Body height 2020-09-14 02:09:00 170.2 cm [facility] Body weight 2020-09-14 02:09:00 61.236 kg [facility] BMI 2020-09-14 02:09:00 21.14 kg/m2 [facility] Systolic blood pressure 2020-09-14 03:30:00 147 mm[Hg] [facility] Diastolic blood pressure 2020-09-14 03:30:00 89 mm[Hg] [facility] Heart rate 2020-09-14 03:30:00 73 /min [facility] Respiratory rate 2020-09-14 03:30:00 19 /min [facility] Oxygen saturation in Arterial blood by Pulse oximetry 2020-09-14 03:30:00 97 /min [facility] Body temperature 2020-09-14 02:10:00 36.5 Brittany [facility] Body height 2020-09-14 02:09:00 170.2 cm [facility] Body weight 2020-09-14 02:09:00 61.236 kg [facility] BMI 2020-09-14 02:09:00 21.14 kg/m2 [facility] Heart rate 2019-07-28 01:36:00 70 /min [facility] Respiratory rate 2019-07-28 01:36:00 18 /min [facility] Oxygen saturation in Arterial blood by Pulse oximetry 2019-07-28 01:24:00 98 /min [facility] Systolic blood pressure 2019-07-28 01:00:00 143 mm[Hg] [facility] Diastolic blood pressure 2019-07-28 01:00:00 74 mm[Hg] [facility] Body temperature 2019-07-28 00:05:00 36.56 Brittany [facility] Body height 2019-07-28 00:05:00 170.2 cm [facility] Body weight 2019-07-28 00:05:00 68.04 kg [facility] BMI 2019-07-28 00:05:00 23.49 kg/m2 [facility] Heart rate 2019-07-28 01:36:00 70 /min [facility] Respiratory rate 2019-07-28 01:36:00 18 /min [facility] Oxygen saturation in Arterial blood by Pulse oximetry 2019-07-28 01:24:00 98 /min [facility] Systolic blood pressure 2019-07-28 01:00:00 143 mm[Hg] [facility] Diastolic blood pressure 2019-07-28 01:00:00 74 mm[Hg] [facility] Body temperature 2019-07-28 00:05:00 36.56 Brittany [facility] Body height 2019-07-28 00:05:00 170.2 cm [facility] Body weight 2019-07-28 00:05:00 68.04 kg [facility] BMI 2019-07-28 00:05:00 23.49 kg/m2 [facility] Systolic blood pressure 2019-03-11 21:00:00 141 mm[Hg] [facility] Diastolic blood pressure 2019-03-11 21:00:00 66 mm[Hg] [facility] Heart rate 2019-03-11 21:00:00 97 /min [facility] Respiratory rate 2019-03-11 21:00:00 18 /min [facility] Oxygen saturation in Arterial blood by Pulse oximetry 2019-03-11 21:00:00 97 /min [facility] Body temperature 2019-03-11 19:13:00 36.06 Brittany [facility] Body weight 2019-03-11 19:12:00 68.04 kg [facility] BMI 2019-03-11 19:12:00 23.49 kg/m2 [facility] Systolic blood pressure 2019-03-11 21:00:00 141 mm[Hg] [facility] Diastolic blood pressure 2019-03-11 21:00:00 66 mm[Hg] [facility] Heart rate 2019-03-11 21:00:00 97 /min [facility] Respiratory rate 2019-03-11 21:00:00 18 /min [facility] Oxygen saturation in Arterial blood by Pulse oximetry 2019-03-11 21:00:00 97 /min [facility] Body temperature 2019-03-11 19:13:00 36.06 Brittany [facility] Body weight 2019-03-11 19:12:00 68.04 kg [facility] BMI 2019-03-11 19:12:00 23.49 kg/m2 [facility] Procedures Procedure Date / Time Performed Performing Clinician Source COMP. METABOLIC PANEL (02345) 2023-02-26 21:14:00 Neida Duggan [facility] CBC WITH DIFF 2023-02-26 21:14:00 Neida Duggan [facility] CONSENT/REFUSAL FOR DIAGNOSIS AND TREATMENT 2023-02-26 20:33:07 Doctor Unassigned, Griffin [facility] POCT SARS-COV-2 ANTIGEN (BINAX NOW) 2022-08-24 15:52:00 Susan Lee [facility] POCT MOLECULAR FLU 2022-08-24 15:51:00 Unknown, Attend [facility] ASSIGNMENT OF BENEFITS 2022-08-24 15:38:07 Docto r Unassigned, Griffin [facility] XR CHEST 1 VW 2022-01-08 00:24:42 Alex Oconnell [facility] RAPID STREP SCREEN FOR GROUP A 2022-01-06 20:47:00 Sherrill Connor [facility] COVID-19 (ID NOW RAPID TESTING) 2022-01-06 20:47:00 Sherrill Connor [facility] CONSENT/REFUSAL FOR DIAGNOSIS AND TREATMENT 2022-01-06 20:26:18 Doctor Unassigned, Griffin [facility] RAPID INFLUENZA A/B 2021-09-02 00:47:00 Apryl Dalton [facility] COVID-19 (ID NOW RAPID TESTING) 2021-09-02 00:47:00 Cameron Dalton [facility] XR CHEST 2 VW 2021-09-02 00:27:31 Cameron Dalton [facility] CONSENT/REFUSAL FOR DIAGNOSIS AND TREATMENT 2021-09-01 23:46:25 Doctor Unassigned, Griffin [facility] XR CHEST 2 VW 2021-08-07 16:43:01 Darius Ledesma [facility] CONSENT/REFUSAL FOR DIAGNOSIS AND TREATMENT 2021-08-07 15:37:28 Doctor Unassigned, Griffin [facility] CT ABDOMEN PELVIS W CONTRAST 2021-06-29 23:11:24 [facility] 2021-06-29 22:18:00 Omaira [facility] TROPONIN I 2021-06-29 22:18:00 Omaira [facility] COMP. METABOLIC PANEL (51147) 2021-06-29 22:18:00 Omaira [facility] CBC WITH DIFF 2021-06-29 22:18:00 Jose Alejandro Castano [facility] URINALYSIS 2021-06-29 22:18:00 Omaira [facility] CONSENT/REFUSAL FOR DIAGNOSIS AND TREATMENT 2021-06-29 21:50:47 Doctor Unassigned, Griffin [facility] POCT GLUCOSE (AUTOMATED) 2021-05-20 17:30:00 Yane [facility] HB ECG ROUTINE & RHYTHM STRIP 2021-05-20 15:36:46 Sami Caceres [facility] TRANSTHORACIC ECHO (TTE) COMPLETE 2021-05-20 15:19:52 Yane [facility] TROPONIN I 2021-05-20 11:04:00 Yane [facility] BASIC METABOLIC PANEL (NA, K, CL, CO2, GLUCOSE, BUN, CREATININE, CA) 2021-05-20 11:04:00 Marcelina Che [facility] CBC WITH DIFF 2021-05-20 11:04:00 Marcelina Che [facility] TROPONIN I 2021-05-20 01:56:[address] [facility] XR CHEST 1 VW 2021-05-20 00:01:05 Neida Duggan [facility] LIPASE 2021-05-19 23:49:[address] [facility] MAGNESIUM 2021-05-19 23:49:[address] [facility] TROPONIN I 2021-05-19 23:49:[address] [facility] COMP. METABOLIC PANEL (81434) 2021-05-19 23:49:00 Neida Duggan [facility] CBC WITH DIFF 2021-05-19 23:49:00 Neida Duggan [facility] PROTHROMBIN TIME / INR 2021-05-19 23:49:00 Neida Duggan [facility] ACTIVATED PARTIAL THRMPLAS VANI 2021-05-19 23:49:00 Neida Duggan [facility] COVID-19 (ID NOW RAPID TESTING) 2021-05-19 23:49:00 Neida Duggan [facility] CONSENT/REFUSAL FOR DIAGNOSIS AND TREATMENT 2021-05-19 23:01:42 Doctor Unassigned, Griffin [facility] URINALYSIS 2020-09-14 02:42:00 [facility] 2020-09-14 02:30:21 [facility] 2020-09-14 02:21:00 [facility] TROP[facility]IN I 2020-09-14 02:21:00 [facility] HEPATIC FUNCTION PANEL (65393) (ALB,T.PRO,BILI T,BU/BC,ALT,AST,ALK PHOS) 2020-09-14 02:21:00 Diana Berg [facility] BASIC METABOLIC PANEL (NA, K, CL, CO2, GLUCOSE, BUN, CREATININE, CA) 2020-09-14 02:21:00 Diana Berg [facility] CBC WITH DIFF 2020-09-14 02:21:00 Diana Berg [facility] N-TERMINAL PRO-BNP 2020-09-14 02:21:00 Lala Berg [facility] COVID-19 (ID NOW RAPID TESTING) 2020-09-14 02:21:00 Diana Berg [facility] NOTICE OF PRIVACY PRACTICES 2020-09-14 02:00:22 Doctor Unassigned, Griffin [facility] CONSENT/REFUSAL FOR DIAGNOSIS AND TREATMENT 2020-09-14 01:58:28 Doctor Unassigned, Griffin [facility] HEPATIC FUNCTION PANEL (31907) (ALB,T.PRO,BILI T,BU/BC,ALT,AST,ALK PHOS) 2019-07-28 00:55:00 Mariangel Ortega [facility] BASIC METABOLIC PANEL (NA, K, CL, CO2, GLUCOSE, BUN, CREATININE, CA) 2019-07-28 00:55:00 Mariangel Ortega [facility] CBC WITH DIFFERENTIAL 2019-07-28 00:55:00 Denise Ortega [facility] RAPID STREP SCREEN FOR GROUP A 2019-07-28 00:55:00 Mariangel Ortega [facility] ADC,CLC OR LCC ONLY - INFLUENZA A & B DIRECT ANTIGEN 2019-07-28 00:55:00 Mariangel Ortega [facility] CBC WITH DIFFERENTIAL 2019-07-28 00:55:00 Denise Ortega [facility] XR CHEST 2 VW 2019-07-28 00:28:40 Mariangel Ortega [facility] CONSENT/REFUSAL FOR DIAGNOSIS AND TREATMENT 2019-07-27 23:47:18 Doctor Unassigned, Griffin [facility] LIPASE 2019-03-11 19:53:00 Sherrill Connor [facility] HEPATIC FUNCTION PANEL (19068) (ALB,T.PRO,BILI T,BU/BC,ALT,AST,ALK PHOS) 2019-03-11 19:53:00 Sherrill Connor [facility] BASIC METABOLIC PANEL (NA, K, CL, CO2, GLUCOSE, BUN, CREATININE, CA) 2019-03-11 19:53:00 Sherrill Connor [facility] CBC WITH DIFFERENTIAL 2019-03-11 19:53:00 Prosper Connor [facility] PROTHROMBIN TIME / INR 2019-03-11 19:53:00 Bill Connor [facility] ACTIVATED PARTIAL THRMPLAS VANI 2019-03-11 19:53:00 Sherrill Connor [facility] NOTICE OF PRIVACY PRACTICES 2019-03-11 18:56:54 Doctor Unassigned, Griffin [facility] Encounters Start Date/Time End Date/Time Encounter Type Admission Type Attending [facility] Facility Care Department Encounter ID Source 2021-05-06 05:05:13 Emergency [facility] [id number] [facility] 2023-09-29 09:07:23 2023-09-29 09:07:23 Outpatient [facility] [id number] Abebe Caballero Christofer 2023-07-08 09:29:45 2023-07-08 09:29:45 Outpatient [facility] [id number] Abebe F Christofer 2023-02-26 15:53:00 2023-02-26 17:52:00 Emergency X Neida DUGGAN [facility] ERT [id number] [facility] 2023-02-26 15:53:00 2023-02-26 17:52:00 Emergency Neida Duggan [facility] ..840.114 350.1.13.10 4.2.7.2.686 [id number] [facility] 2022-08-24 09:40:00 2022-08-24 10:00:00 Urgent Care Susan Lee, Attending [facility] 1..840.114 350.1.13.10 4.2.7.2.686 [id number] [facility] 2022-08-24 09:40:00 2022-08-24 09:40:00 Outpatient Torres LEE SUSAN [facility] [id number] [facility] 2022-08-24 00:00:00 2022-08-24 00:00:00 Orders Only Doctor Unassigned, Griffin [facility] 1.114 350.1.13.10 4.2.7.2.686 [id number] [facility] 2022-01-11 13:15:00 2022-01-11 13:30:00 Laboratory Only Only, Monik Machado [facility] 1..114 350.1.13.10 4.2.7.2.686 [id number] [facility] 2022-01-11 13:15:00 2022-01-11 13:24:38 Outpatient MONIK CRUZ [facility] [id number] [facility] 2022-01-07 18:26:00 2022-01-07 21:08:00 [facility] [id number] 2022-01-07 18:26:00 2022-01-07 21:08:00 [facility] 1.84.114 350.1.13.10 4.2.7.2.686 [id number] [facility] 2022-01-06 15:31:00 2022-01-06 16:32:00 Emergency X SHERRILL CONNOR [facility] ERT [id number] [facility] 2022-01-06 15:31:00 2022-01-06 16:32:00 Emergency Sherrill Connor [facility] 1.114 350.1.13.10 4.2.7.2.686 [id number] [facility] 2021-09-01 17:59:00 2021-09-01 19:56:00 Emergency X MITUL DALTONANNE [facility] ERT [id number] [facility] 2021-09-01 17:59:00 2021-09-01 19:56:00 Emergency Cameron Dalton [facility] 1.2.840.114 350.1.13.10 4.2.7.2.686 [id number] [facility] 2021-09-01 00:00:00 2021-09-01 00:00:00 Orders Only Doctor Unassigned, Griffin [facility] 1.2840.114 350.1.13.10 4.2.7.2.686 [id number] [facility] 2021-08-08 00:00:00 2021-08-08 00:00:00 Letter (Out) Nirmala Daniels [facility] 1.2840.114 350.1.13.10 4.2.7.2.686 [id number] [facility] 2021-08-07 09:58:00 2021-08-07 11:43:00 Emergency X JOSHUA LEDESMAN [facility] ERT [id number] [facility] 2021-08-07 09:58:00 2021-08-07 11:43:00 Emergency Joshua Ledesmaadria Macdonald [facility] 1.2.840.114 350.1.13.10 4.2.7.2.686 [id number] [facility] 2021-08-07 00:00:00 2021-08-07 00:00:00 Orders Only Doctor Unassigned, Griffin [facility] 1.2.840.114 350.1.13.10 4.2.7.2.686 [id number] [facility] 2021-06-29 16:04:00 2021-06-29 19:33:00 Emergency X JOSE ALEJANDRO CASTANO [facility] ERT [id number] [facility] 2021-06-29 16:04:00 2021-06-29 19:33:00 Emergency Jose Alejandro Castano [facility] 1.0.114 350.1.13.10 4.2.7.2.686 [id number] [facility] 2021-05-19 17:04:00 2021-05-20 17:03:00 Outpatient X YANE [facility] [id number] [facility] 2021-05-19 17:04:00 2021-05-20 17:03:00 [facility] 1.114 350.1.13.10 4.2.7.2.686 [id number] [facility] 2020-09-16 10:20:00 2020-09-16 10:20:00 Outpatient R LUIS MANUEL NICOLE [facility] [id number] [facility] 2020-09-16 09:44:15 2020-09-16 10:04:15 Laboratory Only Lab, [facility] Fam [facility] [address] 1.114 350.1.13.10 4.2.7.2.686 [id number] 2020-09-16 09:44:15 2020-09-16 10:04:15 Laboratory Only Lab, Adc Fam Pob I Luis Manuel [facility] .114 350.1.13.10 4.2.7.2.686 [id number] [facility] 2020-09-13 20:05:00 2020-09-13 22:24:00 Emergency Diana Berg [facility] 1.2.840.114 350.1.13.10 4.2.7.2.686 [id number] 2020-09-13 20:05:00 2020-09-13 22:24:00 Emergency Diana Berg [facility] 1.2.840.114 350.1.13.10 4.2.7.2.686 [id number] [facility] 2019-07-27 18:07:12 2019-07-27 20:13:00 Emergency Mariangel Ortega [facility] 1.2.840.114 350.1.13.10 4.2.7.2.686 [id number] 2019-07-27 18:07:12 2019-07-27 20:13:00 Emergency Mariangel Ortega [facility] 1.2.840.114 350.1.13.10 4.2.7.2.686 [id number] [facility] 2019-07-27 00:00:00 2019-07-27 00:00:00 Orders Only Doctor Unassigned, Griffin [facility] 1.2.840.114 350.1.13.10 4.2.7.2.686 [id number] 2019-07-27 00:00:00 2019-07-27 00:00:00 Orders Only Doctor Unassigned, Griffin [facility] 1.2.840.114 350.1.13.10 4.2.7.2.686 [id number] [facility] 2019-03-11 14:05:54 2019-03-11 16:45:00 Emergency Sherrill Connor [facility] 1.2.840.114 350.1.13.10 4.2.7.2.686 [id number] 2019-03-11 14:05:54 2019-03-11 16:45:00 Emergency Sherrill Connor [facility] 1.2.840.114 350.1.13.10 4.2.7.2.686 [id number] [facility] Results Test Description Test Time Test Comments Results Result Co mments Source General acute hospital WITH [id number] 21:53:23* Test Item Value Reference Range Interpretation Comme nts WBC (test code = 6690-2) 6.64 See_Comment [Automated messa ge] The system which generated this result transmitted reference range: 4.30 - 11.10 10*3/?L. The reference range was not used to interpret this result as normal/abnormal. RBC (test code = 789-8) 3.46 See_Comment L [Automated messa ge] The system which generated this result transmitted reference range: 3.93 - 5.25 10*6/?L. The reference range was not used to interpret this result as normal/abnormal. HGB (test code = 718-7) 11.1 g/dL 11.6-15.0 L HCT (test code = 4544-3) 31.3 % 35.7-45.2 L MCV (test code = 787-2) 90.5 fL 80.6-95.5 MCH (test code = 785-6) 32.1 pg 25.9-32.8 MCHC (test code = 786-4) 35.5 g/dL 31.6-35.1 H RDW-SD (test code = 20644-0) 42.1 fL 39.0-49.9 RDW-CV (test code = 788-0) 12.9 % 12.0-15.5 PLT (test code = 777-3) 274 See_Comment [Automated messa ge] The system which generated this result transmitted reference range: 166 - 358 10*3/?L. The reference range was not used to interpret this result as normal/abnormal. MPV (test code = 73331-9) 10.4 fL 9.5-12.9 NRBC/100 WBC (test code = 0332319998) 0.0 See_Comment [Automated me ssage] The system which generated this result transmitted reference range: 0.0 - 10.0 /100 WBCs. The reference range was not used to interpret this result as normal/abnormal. NRBC x10^3 (test code = 1961081714) See_Comment [Automated messa ge] The system which generated this result transmitted reference range: 10*3/?L. The reference range was not used to interpret this result as normal/abnormal. GRAN MAT (NEUT) % (test code = 770-8) 52.0 % IMM GRAN % (test code = 6137134792) 0.50 % LYMPH % (test code = 736-9) 34.2 % MONO % (test code = 5905-5) 6.8 % EOS % (test code = 713-8) 6.2 % BASO % (test code = 706-2) 0.3 % GRAN MAT x10^3(ANC) (test code = 8833835851) 3.46 10*3/uL 1.88-7.09 IMM GRAN x10^3 (test code = 1119590348) 0.03 10*3/uL 0.00-0.06 LYMPH x10^3 (test code = 731-0) 2.27 10*3/uL 1.32-3.29 MONO x10^3 (test code = 742-7) 0.45 10*3/uL 0.33-0.92 EOS x10^3 (test code = 711-2) 0.41 10*3/uL 0.03-0.39 H BASO x10^3 (test code = 704-7) 0.01-0.07 Lab Interpretation (test code = 26446-5) Abnormal [facility] MOLECULAR [id number] 16:02:31* Test Item Value Reference Range Interpretation Comme nts POCT Molecular FluA (test co de = 88002-5) Negative Negative POCT Molecular FluB (test co de = 00665-2) Negative Negative Lab Interpretation (test cod e = 04144-3) Normal [facility] SARS-COV-2 ANTIGEN (BINAX NOW)2022-08-24 15:52:00* Test Item Value Reference Range Interpretation Comme nts POCT SARS-COV-2 ANTIGEN (alfa t code = 70987-7) Not Detected Not Detected On board controls acceptable with C Line (test code = 3574) Yes Lab Interpretation (test cod e = 56547-4) [facility] (04109)2021-06-29 23:10:56* Test Item Value Reference Range Interpretation Comme nts NA (test code = 9685546148) 137 mmol/L 135-145 K (test code = 2431041172) 3.9 mmol/L 3.5-5.0 CL (test code = 2910011718) 102 mmol/L 98-108 CO2 TOTAL (test code = 6496580795) 27 mmol/L 23-31 AGAP (test code = 5195113738) 2-16 BUN (test code = 5823652764) 10 mg/dL 7-23 GLUCOSE (test code = 1413022285) 137 mg/dL 70-110 H CREATININE (test code = 4348806463) 0.69 mg/dL 0.50-1.04 TOTAL BILI (test code = 0034809134) 0.5 mg/dL 0.1-1.1 CALCIUM (test code = 0875488458) 9.2 mg/dL 8.6-10.6 T PROTEIN (test code = 4197640713) 7.7 g/dL 6.3-8.2 ALBUMIN (test code = 0115342022) 4.9 g/dL 3.5-5.0 ALK PHOS (test code = 4659032252) 73 U/L 34-122 ALTv (test code = 1742-6) 15 U/L 5-35 AST(SGOT) (test code = 8219273629) 21 U/L 13-40 eGFR (test code = 8534419509) mL/min/1.73m2 MADISYN (test code = MADISYN) Association [...] imaging tests). Lab Interpretation (test code = 69487-1) [facility] [id number] 22:59:27* Test Item Value Reference Range Interpretation Comments TROPONIN I (test code = 2298610827) 0.001 ng/mL See_Comment [Automated message] The system which generated this result transmitted reference range: <=0.034. The reference range was not used to interpret this result as normal/abnormal. MADISYN (test code = MADISYN) Reference (Normal) Range (defined by the 99th percentile reference [...] to patient's use of biotin. Lab Interpretation (test code = 85751-6) [facility] 22:49:29* Test Item Value Reference Range Interpretation Comme nts LIPASE (test code = 7975973665) 57 U/L 0-220 Lab Interpretation (test cod e = 44531-2) [facility] [id number] 22:29:28* Test Item Value Reference Range Interpretation Comme nts WBC (test code = 6690-2) See_Comment [Automated messa ge] The system which generated this result transmitted reference range: 4.30 - 11.10 10*3/?L. The reference range was not used to interpret this result as normal/abnormal. RBC (test code = 789-8) See_Comment L [Automated messa ge] The system which generated this result transmitted reference range: 3.93 - 5.25 10*6/?L. The reference range was not used to interpret this result as normal/abnormal. HGB (test code = 718-7) 12.0 g/dL 11.6-15.0 HCT (test code = 4544-3) 35.1 % 35.7-45.2 L MCV (test code = 787-2) 93.4 fL 80.6-95.5 MCH (test code = 785-6) 31.9 pg 25.9-32.8 MCHC (test code = 786-4) 34.2 g/dL 31.6-35.1 RDW-SD (test code = 11274-4) 43.4 fL 39.0-49.9 RDW-CV (test code = 788-0) 12.7 % 12.0-15.5 PLT (test code = 777-3) See_Comment [Automated messa ge] The system which generated this result transmitted reference range: 166 - 358 10*3/?L. The reference range was not used to interpret this result as normal/abnormal. MPV (test code = 65515-2) 10.7 fL 9.5-12.9 NRBC/100 WBC (test code = 8510431862) See_Comment [Automated [employer] ssage] The system which generated this result transmitted reference range: 0.0 - 10.0 /100 WBCs. The reference range was not used to interpret this result as normal/abnormal. NRBC x10^3 (test code = 9883636712) <0.01 See_Comment [Automated messa ge] The system which generated this result transmitted reference range: 10*3/?L. The reference range was not used to interpret this result as normal/abnormal. GRAN MAT (NEUT) % (test code = 770-8) 68.6 % IMM GRAN % (test code = 6542387910) 0.40 % LYMPH % (test code = 736-9) 22.9 % MONO % (test code = 5905-5) 6.3 % EOS % (test code = 713-8) 1.6 % BASO % (test code = 706-2) 0.2 % GRAN MAT x10^3(ANC) (test code = [id number]) 6.89 10*3/uL 1.88-7.09 IMM GRAN x10^3 (test code = [id number]) 0.04 10*3/uL 0.00-0.06 LYMPH x10^3 (test code = 731-0) 2.30 10*3/uL 1.32-3.29 MONO x10^3 (test code = 742-7) 0.63 10*3/uL 0.33-0.92 EOS x10^3 (test code = 711-2) 0.16 10*3/uL 0.03-0.39 BASO x10^3 (test code = 704-7) <0.03 0.01-0.07 Lab Interpretation (test code = 41587-9) [facility]-20 17:33:00* Test Item Value Reference Range Interpretation Comme nts POCT GLU (test code = 3786548671) 80 mg/dL 70-110 Lab Interpretation (test cod e = 46042-6) Normal [facility] CenterTR[facility] [id number] 12:36:17* Test Item Value Reference Range Interpretation Comments TROPONIN I (test code = 8606094788) 0.002 ng/mL See_Comment [Automated message] The system which generated this result transmitted reference range: <=0.034. The reference range was not used to interpret this result as normal/abnormal. MADISYN (test code = MADISYN) Reference (Normal) Range (defined by the 99th percentile reference [...] to patient's use of biotin. Lab Interpretation (test code = 73620-5) Normal [facility] Metabolic Panel (NA, K, CL, CO2, GLUCOSE, BUN, CREATININE, CA)2021-05-20 12:31:20* Test Item Value Reference Range Interpretation Comme nts NA (test code = 2868972965) 138 mmol/L 135-145 K (test code = 2281135032) 4.2 mmol/L 3.5-5.0 CL (test code = 2865208443) 106 mmol/L 98-108 CO2 TOTAL (test code = 9020555319) 25 mmol/L 23-31 AGAP (test code = 7763981373) 2-16 BUN (test code = 7958502160) 12 mg/dL 7-23 GLUCOSE (test code = 2440533407) 146 mg/dL 70-110 H CREATININE (test code = 5308703185) 0.62 mg/dL 0.50-1.04 CALCIUM (test code = 9613519761) 10.0 mg/dL 8.6-10.6 eGFR (test code = 1713699484) mL/min/1.73m2 MADISYN (test code = MADISYN) Association [...] imaging tests). Lab Interpretation (test code = 14352-6) Abnormal [facility] acute hospital with Nfozrmypblon5342-57-42 11:49:32* Test Item Value Reference Range Interpretation Comme nts WBC (test code = 6690-2) See_Comment [Automated [employer]] The system which generated this result transmitted reference range: 4.30 - 11.10 10*3/?L. The reference range was not used to interpret this result as normal/abnormal. RBC (test code = 789-8) See_Comment L [Automated [employer]] The system which generated this result transmitted reference range: 3.93 - 5.25 10*6/?L. The reference range was not used to interpret this result as normal/abnormal. HGB (test code = 718-7) 11.6 g/dL 11.6-15.0 HCT (test code = 4544-3) 33.5 % 35.7-45.2 L MCV (test code = 787-2) 92.5 fL 80.6-95.5 MCH (test code = 785-6) 32.0 pg 25.9-32.8 MCHC (test code = 786-4) 34.6 g/dL 31.6-35.1 RDW-SD (test code = 49782-6) 40.3 fL 39.0-49.9 RDW-CV (test code = 788-0) 11.9 % 12.0-15.5 L PLT (test code = 777-3) See_Comment [Automated [employer]] The system which generated this result transmitted reference range: 166 - 358 10*3/?L. The reference range was not used to interpret this result as normal/abnormal. MPV (test code = 29448-5) 11.3 fL 9.5-12.9 NRBC/100 WBC (test code = 0502302356) See_Comment [Automated me ssage] The system which generated this result transmitted reference range: 0.0 - 10.0 /100 WBCs. The reference range was not used to interpret this result as normal/abnormal. NRBC x10^3 (test code = 1330710375) <0.01 See_Comment [Automated messa ge] The system which generated this result transmitted reference range: 10*3/?L. The reference range was not used to interpret this result as normal/abnormal. GRAN MAT (NEUT) % (test code = 770-8) 59.9 % IMM GRAN % (test code = 9501491512) 0.50 % LYMPH % (test code = 736-9) 30.0 % MONO % (test code = 5905-5) 6.4 % EOS % (test code = 713-8) 2.9 % BASO % (test code = 706-2) 0.3 % GRAN MAT x10^3(ANC) (test code = 1963369585) 3.72 10*3/uL 1.88-7.09 IMM GRAN x10^3 (test code = 1693029632) 0.03 10*3/uL 0.00-0.06 LYMPH x10^3 (test code = 731-0) 1.86 10*3/uL 1.32-3.29 MONO x10^3 (test code = 742-7) 0.40 10*3/uL 0.33-0.92 EOS x10^3 (test code = 711-2) 0.18 10*3/uL 0.03-0.39 BASO x10^3 (test code = 704-7) <0.03 0.01-0.07 Lab Interpretation (test code = 26477-1) Abnormal [facility] [id number] 02:24:28* Test Item Value Reference Range Interpretation Comments TROPONIN I (test code = 1863778249) 0.003 ng/mL See_Comment [Automated message] The system which generated this result transmitted reference range: <=0.034. The reference range was not used to interpret this result as normal/abnormal. MADISYN (test code = MADISYN) Reference (Normal) Range (defined by the 99th percentile reference [...] to patient's use of biotin. Lab Interpretation (test code = 91518-7) Normal [facility]UM2021-[facility]-14 00:25:00* Test Item Value Reference Range Interpretation Comme nts MAGNESIUM (test code = 0162843355) 1.9 mg/dL 1.7-2.4 Lab Interpretation (test cod e = 97044-2) Normal [facility] CenterTROP[facility]IN [id number] 00:20:03* Test Item Value Reference Range Interpretation Comments TROPONIN I (test code = 2515955549) 0.002 ng/mL See_Comment [Automated message] The system which generated this result transmitted reference range: <=0.034. The reference range was not used to interpret this result as normal/abnormal. MADISYN (test code = MADISYN) Reference (Normal) Range (defined by the 99th percentile reference [...] to patient's use of biotin. Lab Interpretation (test code = 26982-4) Normal [facility] CenterCOMP. METABOLIC PANEL (20988)2021-05-20 00:09:00* Test Item Value Reference Range Interpretation Comme nts NA (test code = 4416576006) 139 mmol/L 135-145 K (test code = 3311054039) 3.9 mmol/L 3.5-5.0 CL (test code = 3213531354) 101 mmol/L 98-108 CO2 TOTAL (test code = 2431222923) 28 mmol/L 23-31 AGAP (test code = 9962724084) 2-16 BUN (test code = 5435108489) 13 mg/dL 7-23 GLUCOSE (test code = 9821505431) 143 mg/dL 70-110 H CREATININE (test code = 0519072400) 0.68 mg/dL 0.50-1.04 TOTAL BILI (test code = 3330654905) 0.4 mg/dL 0.1-1.1 CALCIUM (test code = 9513096596) 10.4 mg/dL 8.6-10.6 T PROTEIN (test code = 1062833390) 8.0 g/dL 6.3-8.2 ALBUMIN (test code = 7607211720) 5.0 g/dL 3.5-5.0 ALK PHOS (test code = 1208084561) 93 U/L 34-122 ALTv (test code = 1742-6) 21 U/L 5-35 AST(SGOT) (test code = 4877593905) 31 U/L 13-40 eGFR (test code = 8258006619) mL/min/1.73m2 MADISYN (test code = MADISYN) Association [...] imaging tests). Lab Interpretation (test code = 91351-4) [facility]normal [facility] CenterLIPASE2021-11-14 00:08:20* Test Item Value Reference Range Interpretation Comme nts LIPASE (test code = 4886637754) 66 U/L 0-220 Lab Interpretation (test cod e = 88096-6) Normal [facility] CenteraPTT2021-11-14 00:06:19* Test Item Value Reference Range Interpretation Comme nts APTT Patient (test code = 3173-2) See_Comment [Automated message] The system which generated this result transmitted reference range: 23 - 38 Seconds. The reference range was not used to interpret this result as normal/abnormal. MADISYN (test code = MADISYN) The [facility] patient population mean normal value for aPTT is 30 seconds. Lab Interpretation (test code = 76024-9) Normal [facility] CenterPROTHROMBIN TIME / [id number] 00:04:19* Test Item Value Reference Range Interpretation Comme nts PROTIME PATIENT (test code = 5964-2) See_Comment [Automated [employer]] The system which generated this result transmitted reference range: 12.0 - 14.7 Seconds. The reference range was not used to interpret this result as normal/abnormal. INR (test code = 6301-6) Normal INR <1.1; Warfarin Therapeutic range 2.0 to 3.0 or 2.5 to 3.5, depending upon the indications. Lab Interpretation (test code = 36176-3) Normal [facility] CenterCBC WITH [id number] 23:55:39* Test Item Value Reference Range Interpretation Comme nts WBC (test code = 6690-2) See_Comment [Automated [employer]] The system which generated this result transmitted reference range: 4.30 - 11.10 10*3/?L. The reference range was not used to interpret this result as normal/abnormal. RBC (test code = 789-8) See_Comment [Automated [employer]ood[employer] ge] The system which generated this result transmitted reference range: 3.93 - 5.25 10*6/?L. The reference range was not used to interpret this result as normal/abnormal. HGB (test code = 718-7) 12.7 g/dL 11.6-15.0 HCT (test code = 4544-3) 36.7 % 35.7-45.2 MCV (test code = 787-2) 92.2 fL 80.6-95.5 MCH (test code = 785-6) 31.9 pg 25.9-32.8 MCHC (test code = 786-4) 34.6 g/dL 31.6-35.1 RDW-SD (test code = 95091-6) 40.4 fL 39.0-49.9 RDW-CV (test code = 788-0) 11.9 % 12.0-15.5 L PLT (test code = 777-3) See_Comment [Automated [employer] ge] The system which generated this result transmitted reference range: 166 - 358 10*3/?L. The reference range was not used to interpret this result as normal/abnormal. MPV (test code = 45767-6) 11.0 fL 9.5-12.9 NRBC/100 WBC (test code = 0507790234) See_Comment [Automated [employer] ssage] The system which generated this result transmitted reference range: 0.0 - 10.0 /100 WBCs. The reference range was not used to interpret this result as normal/abnormal. NRBC x10^3 (test code = 6482026388) <0.01 See_Comment [Automated [employer] ge] The system which generated this result transmitted reference range: 10*3/?L. The reference range was not used to interpret this result as normal/abnormal. GRAN MAT (NEUT) % (test code = 770-8) 53.4 % IMM GRAN % (test code = 6155299143) 0.60 % LYMPH % (test code = 736-9) 36.2 % MONO % (test code = 5905-5) 6.4 % EOS % (test code = 713-8) 3.3 % BASO % (test code = 706-2) 0.1 % GRAN MAT x10^3(ANC) (test code = 8100894284) 3.58 10*3/uL 1.88-7.09 IMM GRAN x10^3 (test code = 4578468981) 0.04 10*3/uL 0.00-0.06 LYMPH x10^3 (test code = 731-0) 2.43 10*3/uL 1.32-3.29 MONO x10^3 (test code = 742-7) 0.43 10*3/uL 0.33-0.92 EOS x10^3 (test code = 711-2) 0.22 10*3/uL 0.03-0.39 BASO x10^3 (test code = 704-7) <0.03 0.01-0.07 Lab Interpretation (test code = 48180-6) Abnormal [facility] CenterUrinalysis2021-03-11 03:27:11* Test Item Value Reference Range Interpretation Comme nts APPEARANCE (test code = 6394690051) Clear Clear COLOR (test code = 7059353882) Straw Yellow A PH (test code = 2476697299) 4.8-8.0 SP GRAVITY (test code = 2793933099) 1.003-1.030 GLU U QUAL (test code = 9679994026) 500 mg/dL Normal A BLOOD (test code = 1414198927) Negative Negative KETONES (test code = 9391944745) Negative Negative PROTEIN (test code = 2887-8) Negative Negative UROBILIN (test code = 5949622643) Normal Normal BILIRUBIN (test code = 1271854533) Negative Negative NITRITE (test code = 2558380755) Negative Negative LEUK KEVEN (test code = 4750923047) 25/uL Negative A RBC/HPF (test code = 1094550811) See_Comment [Automated [employer]] The system which generated this result transmitted reference range: 0 - 3 HPF. The reference range was not used to interpret this result as normal/abnormal. WBC/HPF (test code = 5956316759) See_Comment [Automated [employer]] The system which generated this result transmitted reference range: 0 - 5 HPF. The reference range was not used to interpret this result as normal/abnormal. BACTERIA (test code = 9126300554) Negative Negative MUCOUS (test code = 3325200160) Slight Negative LPF A SQ EPITH (test code = 9054988495) HPF Lab Interpretation (test code = 02605-0) Abnormal [facility] CenterTroponin [id number] 03:00:28* Test Item Value Reference Range Interpretation Comme nts TROPONIN I (test code = 1345303748) <0.012 See_Comment [Automated message] The system which generated this result transmitted reference range: <=0.034 ng/mL. The reference range was not used to interpret this result as normal/abnormal. MADISYN (test code = MADISYN) Equal or Less than 0.034 ng/ml---Normal ?Note: Cardiac troponin begins to [...] patient's use of biotin. ? Lab Interpretation (test code = 69281-1) Normal [facility] CenterN-TERMINAL TLV-[id number] 02:57:10* Test Item Value Reference Range Interpretation Comme nts NT-proBNP (test code = 1965167571) 25 pg/mL See_Comment [Automated message] The system which generated this result transmitted reference range: <=125. The reference range was not used to interpret this result as normal/abnormal. MADISYN (test code = MADISYN) Biotin has been reported to cause a negative bias, interpret results relative to patient's use of biotin. Lab Interpretation (test code = 33578-2) Normal [facility] (NA, K, CL, CO2, GLUCOSE, BUN, CREATININE, CA)2020-09-14 02:48:49* Test Item Value Reference Range Interpretation Comme nts NA (test code = 4074551380) 135 mmol/L 135-145 K (test code = 1107796582) 3.6 mmol/L 3.5-5.0 CL (test code = 9977203365) 101 mmol/L 98-108 CO2 TOTAL (test code = 5893157041) 23 mmol/L 23-31 AGAP (test code = 5113304171) 2-16 BUN (test code = 1783053815) 10 mg/dL 7-23 GLUCOSE (test code = 7910570139) 296 mg/dL 70-110 H CREATININE (test code = 6440957788) 0.62 mg/dL 0.50-1.04 CALCIUM (test code = 1380653783) 9.7 mg/dL 8.6-10.6 eGFR Calculation (Non-) (test code = 6773248162) mL/min/1.73m2 eGFR Calculation () (test code = 2968686321) mL/min/1.73m2 MADISYN (test code = MADISYN) Association [...] imaging tests). Lab Interpretation (test code = 94180-8) Abnormal [facility] CenterHepatic Function Panel (ALB, T.PRO, BILI T, BU/BC, ALT, AST, ALK PHOS)2020-09-14 02:48:48* Test Item Value Reference Range Interpretation Comme nts TOTAL BILI (test code = 1236427541) 0.4 mg/dL 0.1-1.1 BILI UNCON (test code = 2341663298) 0.4 mg/dL 0.1-1.1 BILI CONJ (test code = 9247351927) 0.0 mg/dL 0.0-0.3 T PROTEIN (test code = 8173246430) 7.7 g/dL 6.3-8.2 ALBUMIN (test code = 2906735871) 5.0 g/dL 3.5-5.0 ALK PHOS (test code = 4949820054) 78 U/L 34-122 ALTv (test code = 1742-6) 19 U/L 5-35 AST(SGOT) (test code = 2024574019) 25 U/L 13-40 Lab Interpretation (test cod e = 81771-8) Normal [facility] CenterLipase Hyqka1353-06-94 02:48:48* Test Item Value Reference Range Interpretation Comme nts LIPASE (test code = 2672196757) 38 U/L 0-220 Lab Interpretation (test cod e = 89210-6) Normal [facility] CenterCOVID-19 (ID NOW RAPID TESTING)2020-09-14 02:36:29* Test Item Value Reference Range Interpretation Comme nts SARS-CoV-2 Rapid ID NOW (test code = 02573-0) Positive Not Detected A MADISYN (test code = MADISYN) ID NOW COVID-19 As say is an isothermal nucleic acid amplification test intended for the qualitative detection of nucleic acid from SARS-CoV-2 viral RNA in nasopharyngeal (DISPLAY MANAGER) specimens. It is used under Emergency [...] patient testing if clinically indicated. Lab Interpretation (test code = 82026-5) Abnormal General acute hospital with Iiegutvolvld5111-18-70 02:30:06* Test Item Value Reference Range Interpretation Comme nts WBC (test code = 6690-2) See_Comment [Automated [employer]] The system which generated this result transmitted reference range: 4.30 - 11.10 10*3/?L. The reference range was not used to interpret this result as normal/abnormal. RBC (test code = 789-8) See_Comment [Automated [employer]] The system which generated this result transmitted reference range: 3.93 - 5.25 10*6/?L. The reference range was not used to interpret this result as normal/abnormal. HGB (test code = 718-7) 12.6 g/dL 11.6-15.0 HCT (test code = 4544-3) 36.5 % 35.7-45.2 MCV (test code = 787-2) 89.5 fL 80.6-95.5 MCH (test code = 785-6) 30.9 pg 25.9-32.8 MCHC (test code = 786-4) 34.5 g/dL 31.6-35.1 RDW-SD (test code = 83379-3) 41.8 fL 39.0-49.9 RDW-CV (test code = 788-0) 12.8 % 12.0-15.5 PLT (test code = 777-3) See_Comment [Automated [employer]] The system which generated this result transmitted reference range: 166 - 358 10*3/?L. The reference range was not used to interpret this result as normal/abnormal. MPV (test code = 63535-2) 11.2 fL 9.5-12.9 NRBC/100 WBC (test code = 8954371616) See_Comment [Automated me ssage] The system which generated this result transmitted reference range: 0.0 - 10.0 /100 WBCs. The reference range was not used to interpret this result as normal/abnormal. NRBC x10^3 (test code = 5045191258) <0.01 See_Comment [Automated me ssage] The system which generated this result transmitted reference range: 10*3/?L. The reference range was not used to interpret this result as normal/abnormal. GRAN MAT (NEUT) % (test code = 770-8) 54.0 % IMM GRAN % (test code = 0215511792) 0.70 % LYMPH % (test code = 736-9) 36.2 % MONO % (test code = 5905-5) 6.0 % EOS % (test code = 713-8) 2.8 % BASO % (test code = 706-2) 0.3 % GRAN MAT x10^3(ANC) (test code = 5228821280) 3.13 10*3/uL 1.88-7.09 IMM GRAN x10^3 (test code = 9745792274) 0.04 10*3/uL 0.00-0.06 LYMPH x10^3 (test code = 731-0) 2.10 10*3/uL 1.32-3.29 MONO x10^3 (test code = 742-7) 0.35 10*3/uL 0.33-0.92 EOS x10^3 (test code = 711-2) 0.16 10*3/uL 0.03-0.39 BASO x10^3 (test code = 704-7) <0.03 0.01-0.07 General acute hospital WITH [id number] 01:35:00* Test Item Value Reference Range Interpretation Comme nts WBC (test code = 6690-2) See_Comment [Automated messa ge] The system which generated this result transmitted reference range: 4.30 - 11.10 10*3/?L. The reference range was not used to interpret this result as normal/abnormal. RBC (test code = 789-8) See_Comment [Automated [employer] ge] The system which generated this result transmitted reference range: 3.93 - 5.25 10*6/?L. The reference range was not used to interpret this result as normal/abnormal. HGB (test code = 718-7) 13.9 g/dL 11.6-15 HCT (test code = 4544-3) 40.1 % 35.7-45.2 MCV (test code = 787-2) 90.7 fL 80.6-95.5 MCH (test code = 785-6) 31.4 pg 25.9-32.8 MCHC (test code = 786-4) 34.7 g/dL 31.6-35.1 RDW-SD (test code = 46996-2) 40.8 fL 39-49.9 RDW-CV (test code = 788-0) 12.5 % 12-15.5 PLT (test code = 777-3) See_Comment [Automated [employer] ge] The system which generated this result transmitted reference range: 166 - 358 10*3/?L. The reference range was not used to interpret this result as normal/abnormal. MPV (test code = 47730-7) 11.0 fL 9.5-12.9 IPF % (test code = 6930665977) 5.7 % 1.3-7.7 Platelet count measured by fluorescence method. NRBC/100 WBC (test code = 2009173988) See_Comment [Automated [employer] ssage] The system which generated this result transmitted reference range: 0.0 - 10.0 /100 WBCs. The reference range was not used to interpret this result as normal/abnormal. NRBC x10^3 (test code = 7664375089) <0.01 See_Comment [Automated [employer] ge] The system which generated this result transmitted reference range: 10*3/?L. The reference range was not used to interpret this result as normal/abnormal. GRAN MAT (NEUT) % (test code = 770-8) 60.2 % IMM GRAN % (test code = 6665693967) 1.60 % LYMPH % (test code = 736-9) 29.4 % MONO % (test code = 5905-5) 6.2 % EOS % (test code = 713-8) 2.3 % BASO % (test code = 706-2) 0.3 % GRAN MAT x10^3(ANC) (test code = 6060472886) 5.31 10*3/uL 1.88-7.09 IMM GRAN x10^3 (test code = 5696878240) 0.14 10*3/uL 0-0.06 H LYMPH x10^3 (test code = 731-0) 2.59 10*3/uL 1.32-3.29 MONO x10^3 (test code = 742-7) 0.55 10*3/uL 0.33-0.92 EOS x10^3 (test code = 711-2) 0.20 10*3/uL 0.03-0.39 BASO x10^3 (test code = 704-7) 0.03 10*3/uL 0.01-0.07 Lab Interpretation (test code = 89123-3) Abnormal [facility] CenterADC,CLC OR L[facility] ONLY - INFLUENZA A & B DIRECT [id number] 01:26:00* Test Item Value Reference Range Interpretation Comme nts Influenza A (test code = 97373-9) Negative Negative Influenza B (test code = 30045-6) Negative Negative Lab Interpretation (test cod e = 46208-1) Normal [facility] Metabolic Panel (NA, K, CL, CO2, GLUCOSE, BUN, CREATININE, CA)2019-07-28 01:21:00* Test Item Value Reference Range Interpretation Comme nts NA (test code = 9046310341) 137 mmol/L 135-145 K (test code = 0716726282) 3.8 mmol/L 3.5-5 CL (test code = 6681959571) 100 mmol/L 98-108 CO2 TOTAL (test code = 2951734037) 24 mmol/L 23-31 AGAP (test code = 0475476952) 2-16 BUN (test code = 1557612382) 13 mg/dL 7-23 GLUCOSE (test code = 3320213574) 245 mg/dL 70-110 H CREATININE (test code = 1863263990) 0.49 mg/dL 0.5-1.04 L CALCIUM (test code = 4450528455) 9.8 mg/dL 8.6-10.6 eGFR Calculation (Non-) (test code = 7832445326) mL/min/1.73m2 eGFR Calculation () (test code = 9835354107) mL/min/1.73m2 MADISYN (test code = MADISYN) Association [...] imaging tests). Lab Interpretation (test code = 34344-1) Abnormal [facility] CenterHepatic Function Panel (ALB, T.PRO, BILI T, BU/BC, ALT, AST, ALK PHOS)2019-07-28 01:21:00* Test Item Value Reference Range Interpretation Comme nts TOTAL BILI (test code = 7193664741) 0.3 mg/dL 0.1-1.1 BILI UNCON (test code = 9151956236) 0.1 mg/dL 0.1-1.1 BILI CONJ (test code = 8978964548) 0.0 mg/dL 0-0.3 T PROTEIN (test code = 3922117960) 8.2 g/dL 6.3-8.2 ALBUMIN (test code = 6849086853) 5.0 g/dL 3.5-5 ALK PHOS (test code = 7270105189) 121 U/L 34-122 ALTv (test code = 1742-6) 33 U/L 5-35 AST(SGOT) (test code = 8965965248) 30 U/L 13-40 Lab Interpretation (test cod e = 62597-3) Normal [facility] CenterRAPID STREP SCREEN FOR GROUP [id number] 01:19:00* Test Item Value Reference Range Interpretation Comme nts Streptococcus pyogenes (grou p A) antigen (test code = 31734-6) Negative Negative Lab Interpretation (test cod e = 22136-9) Normal [facility] CenterXR CHEST 2 [id number] 00:53:20Impression: No acute cardiopulmonary changes. Small sized [...] reviewed this study and agree withthe above report.[facility] Met[facility] (NA, K, CL, CO2, GLUCOSE, BUN, CREATININE, CA)2019-03-11 20:52:00* Test Item Value Reference Range Interpretation Comme nts NA (test code = 6362060399) 141 mmol/L 135-145 K (test code = 5586000660) 3.6 mmol/L 3.5-5 CL (test code = 8864421052) 104 mmol/L 98-108 CO2 TOTAL (test code = 0716828193) 24 mmol/L 23-31 AGAP (test code = 0574741364) 2-16 BUN (test code = 5830602234) 19 mg/dL 7-23 GLUCOSE (test code = 3265243011) 161 mg/dL 70-110 H CREATININE (test code = 8517111063) 0.51 mg/dL 0.5-1.04 CALCIUM (test code = 4045857054) 9.4 mg/dL 8.6-10.6 eGFR Calculation (Non-) (test code = 4312584698) mL/min/1.73m2 eGFR Calculation () (test code = 4533795917) mL/min/1.73m2 MADISYN (test code = MADISYN) Association [...] imaging tests). Lab Interpretation (test code = 29486-7) Abnormal [facility] CenterHepatic Function Panel (ALB, T.PRO, BILI T, BU/BC, ALT, AST, ALK PHOS)2019-03-11 20:52:00* Test Item Value Reference Range Interpretation Comme nts TOTAL BILI (test code = 5730424414) 0.6 mg/dL 0.1-1.1 BILI UNCON (test code = 2868377133) 0.5 mg/dL 0.1-1.1 BILI CONJ (test code = 9595523657) 0.0 mg/dL 0-0.3 T PROTEIN (test code = 0901138019) 7.7 g/dL 6.3-8.2 ALBUMIN (test code = 4502551094) 4.9 g/dL 3.5-5 ALK PHOS (test code = 2192860668) 61 U/L 34-122 ALT(SGPT) (test code = 3455017232) 26 U/L 9-51 AST(SGOT) (test code = 1614401658) 28 U/L 13-40 Lab Interpretation (test cod e = 96188-7) Normal [facility] CenterLipase Uokvu0299-74-26 20:52:00* Test Item Value Reference Range Interpretation Comme [facility] LIPASE (test code = 5950628438) 22 U/L 0-220 Lab Interpretation (test cod e = 19617-8) Normal [facility] CenteraPTT2019-09-05 20:40:00* Test Item Value Reference Range Interpretation Comme [facility] APTT Patient (test code = 3173-2) See_Comment L [Automated message] The system which generated this result transmitted reference range: 23 - 38 Seconds. The reference range was not used to interpret this result as normal/abnormal. MADISYN (test code = MADISYN) The [facility] patient population mean normal value for aPTT is 30 seconds. Lab Interpretation (test code = 12820-7) Abnormal [facility] CenterProthrombin Time (PT) / [id number] 20:38:00 * Test Item Value Reference Range Interpretation Comme [facility] PROTIME PATIENT (test code = 5964-2) See_Comment [Automated messa ge] The system which generated this result transmitted reference range: 12.0 - 14.7 Seconds. The reference range was not used to interpret this result as normal/abnormal. INR (test code = 6301-6) Normal INR <1.1; Warfarin Therapeutic range 2.0 to 3.0 or 2.5 to 3.5, depending upon the indications. Lab Interpretation (test code = 02737-1) Normal [facility] WITH VHSOLSLSAIFP1604-32-23 20:33:00* Test Item Value Reference Range Interpretation Comme nts WBC (test code = 6690-2) See_Comment [Automated messa ge] The system which generated this result transmitted reference range: 4.30 - 11.10 10*3/?L. The reference range was not used to interpret this result as normal/abnormal. RBC (test code = 789-8) See_Comment [Automated messa ge] The system which generated this result transmitted reference range: 3.93 - 5.25 10*6/?L. The reference range was not used to interpret this result as normal/abnormal. HGB (test code = 718-7) 13.3 g/dL 11.6-15 HCT (test code = 4544-3) 39.1 % 35.7-45.2 MCV (test code = 787-2) 93.5 fL 80.6-95.5 MCH (test code = 785-6) 31.8 pg 25.9-32.8 MCHC (test code = 786-4) 34.0 g/dL 31.6-35.1 RDW-SD (test code = 82880-2) 44.3 fL 39-49.9 RDW-CV (test code = 788-0) 12.9 % 12-15.5 PLT (test code = 777-3) See_Comment [Automated messa ge] The system which generated this result transmitted reference range: 166 - 358 10*3/?L. The reference range was not used to interpret this result as normal/abnormal. MPV (test code = 78508-5) 10.9 fL 9.5-12.9 NRBC/100 WBC (test code = 8845369497) See_Comment [Automated [employer] ssage] The system which generated this result transmitted reference range: 0.0 - 10.0 /100 WBCs. The reference range was not used to interpret this result as normal/abnormal. NRBC x10^3 (test code = 0312111923) <0.01 See_Comment [Automated messa ge] The system which generated this result transmitted reference range: 10*3/?L. The reference range was not used to interpret this result as normal/abnormal. GRAN MAT (NEUT) % (test code = 770-8) 86.3 % IMM GRAN % (test code = 7187805976) 0.50 % LYMPH % (test code = 736-9) 8.8 % MONO % (test code = 5905-5) 4.0 % EOS % (test code = 713-8) 0.2 % BASO % (test code = 706-2) 0.2 % GRAN MAT x10^3(ANC) (test code = 6758559542) 8.24 10*3/uL 1.88-7.09 H IMM GRAN x10^3 (test code = 6976181478) 0.05 10*3/uL 0-0.06 LYMPH x10^3 (test code = 731-0) 0.84 10*3/uL 1.32-3.29 L MONO x10^3 (test code = 742-7) 0.38 10*3/uL 0.33-0.92 EOS x10^3 (test code = 711-2) <0.03 0.03-0.39 L BASO x10^3 (test code = 704-7) <0.03 0.01-0.07 Lab Interpretation (test code = 79363-9) Abnormal [facility] Notes Date/Time Note Provider Source 2023-02-26 17:51:24 YiKtgZxML0aAvvmepCSW GXDYWHhZ3Eio+M hGKO5CuYwT1r4947Mv7np++El0TDDF2848 -08-23T17:51:24 PT also refused dc vitals 06754-3Eraqtmcmi department OpuwZA4400-01-27C90:51:40Emergency department NoteTXT1.2.840.551453.1.13.104.2.7 .2.648559|[id number] for patient wkaz73386-4StiaTH875128477Lbfxw Y Khan RN[id number] 61MAEQDHETQKRXJUGRXHZLIE9310-07-66 T17:51:401.2.840.341271.1.72.3.15| 1.2.840.435868.1.13.104.2.7.2.7278 [id number] Lynsey Kong RN [facility] 2023-02-26 17:48:45 AQ7eNlppgxu2DNkSCAUu y/HuPkjtdj+xzU fcPp92Qf3oSHoTJzKQ634IuvVc/dKS4944T17:48:45 Pt given printed and verbal discharge instructions regarding dysphagia, pt signed the dc paper and threw at nurses's face. Pt did not take her dc paper upon discharge and left the room.Pt was given full explanation of her condition by ABEL Brower, prior to discharge. 76960-9Ynecpaugk department TfvzFX7511-87-28S10:51:06[facility] NoteTXT1.2.840.849595.1.13.104.2.7 .2.701796|[id number] for patient eoum57994-7ElhqSTZKGHVQVY[id number] 48SQVNVZVYOOCGOWMOORXDIX2462-49-18 T17:51:061.2.840.000475.1.72.3.15| 1.2.840.076274.1.13.104.2.7.2.7278 [id number] [facility] 2023-02-26 15:36:27 UxfguDqVq+2I2L2tnwG8 xmO6qLI2BXRNA/ tTemgYss4S94OzCfdki1DF2wIGEDmi9053 -08-23T15:36:27 Pt to ed with 32 oz soda. Alert and ambulatory via pov. Vss. C/o difficulty swallowing since January 12 after falling. Has been dealing with same issue since then with no worsening of condition. States that liquids are worse and has had aspiration PNA. Has seen primary doctor about concerns. Went to neurologist yesterday.no new concerns. Denies any other symptoms at this time. 31676-2Czxdokjnw department Triage ceffDQ9062-28-98O79:40:29[facility] Triage noteTXT1.2.840.244512.1.13.104.2.7 .2.682475|[id number] for patient xiwv56368-8Tghyobqlb department [id number] A Paul RN[address]In[id number] 75QYFXOEJCNTUIPQLWQWQEQT1731-15-39 T15:40:291.2.840.521028.1.72.3.15| 1.2.840.084519.1.13.104.2.7.2.7278 [id number] Lina Rao RN [facility]"
--- NOTE | 2023-10-06 09:39 | RAD REPORT ---
EXAM DESCRIPTION: RAD - Foot Left 3 View - 10/06/2023 9:18 am CLINICAL HISTORY: PAIN COMPARISON: Foot Left 3 View dated 06/21/2023; Foot Left 3 View dated 06/07/2023; Foot Left 3 View da zoila 04/24/2023 FINDINGS/IMPRESSION: Obliquely oriented fracture at the second toe proximal phalanx at the distal me tadiaphysis. There is some sclerosis and the fracture fragments appear well corticated. This may be c hronic. There is less than 2 millimeters of displacement . Correlate with site of pain. Eccentric scl erosis at the third metatarsal is again identified and unchanged. This could represent sequela of diego or stress fracture or a benign osseous lesion.
--- NOTE | 2023-10-06 09:43 | ER ---
Nurse's Notes [facility] Name: Dolores Pérez Age: 63 yrs Sex: Female : 1960 Arrival Date: 10/06/2023 Time: 07:58 Bed 4 Private MD: Dimitrios Bolton C Diagnosis: nondisplaced oblique fracture of proximal phalanx of left second toe Presentation: 10/05 08:05 Chief complaint: Patient states: Hurt L foot again after tripping last night. ll1 Coronavirus screen: Vaccine status: Patient reports receiving the 2nd dose of the covid vaccine. Client denies travel out of the [place] in the last 14 days. At this time, the client does not indicate any symptoms associated with coronavirus-19. Ebola Screen: Patient denies travel to an Ebola-affected area in the 21 days before illness onset. Initial Sepsis Screen: Does the patient meet any 2 criteria? No. Patient's initial sepsis screen is negative. Does the patient have a suspected source of infection? No. Patient's initial sepsis screen is negative. Risk Assessment: Do you want to hurt yourself or someone else? Patient reports no desire to harm self or others. Onset of symptoms was October 05, 2023. 08:05 Method Of Arrival: Wheelchair ll1 08:05 Acuity: AARON 4 ll1 Triage Assessment: 08:07 General: Appears uncomfortable, Behavior is calm, cooperative, appropriate for age. ll1 Pain: Complains of pain in left foot Quality of pain is described as aching. Musculoskeletal: Circulation, motion, and sensation intact. Capillary refill < 3 seconds, Reports pain in left foot. Injury Description: Bruise. Historical: - Allergies: 08:05 grapes; ll1 08:05 NSAIDS; ll1 08:05 ORANGES; ll1 08:05 peanuts; ll1 08:05 Prednisone; ll1 08:05 sesame seed; ll1 08:05 Sulfa (Sulfonamide Antibiotics); ll1 08:05 Aspirin; ll1 - PMHx: 08:05 Anxiety; Asthma; COPD; depressive disorder; diabetes mellitus; High Cholesterol; ll1 Hypertension; Hypothyroidism; Transient cerebral ischemia; - Immunization history:: Adult Immunizations up to date. - Social history:: Smoking status: Patient denies any tobacco usage or history of. Screenin:48 [facility] ED Fall Risk Assessment (Adult) History of falling in the last 3 months, ko1 including since admission No falls in past 3 months (0 pts) Confusion or Disorientation No (0 pts) Intoxicated or Sedated No (0 pts) Impaired Gait No (0 pts) Mobility Assist Device Used No (0 pt) Altered Elimination No (0 pt) Score/Fall Risk Level 0 - 2 = Low Risk Oriented to surroundings, Maintained a safe environment, Educated pt \T\ family on fall prevention, incl call for assistance when getting out of bed, Assessed \T\ reinforced patient's understanding of fall precautions, Provided non-skid footwear, Hourly rounding (assess needs \T\ fall precautionary measures) done, Used ambulatory aids as needed (educated on \T\ assisted with), Used gait belt as appropriate. Abuse screen: Denies threats or abuse. Denies injuries from another. Nutritional screening: No deficits noted. Tuberculosis screening: No symptoms or risk factors identified. Assessment: 08:48 General: Appears in no apparent distress. Behavior is calm, cooperative, appropriate ko1 for age. Pain: Complains of pain in left third toe and left second toe and left foot. Neuro: No deficits noted. Cardiovascular: No deficits noted. Respiratory: No deficits noted. GI: No deficits noted. : No deficits noted. EENT: No deficits noted. Derm: No deficits noted. Musculoskeletal: Reports pain in left third toe and left second toe and left foot. Vital Signs: 08:05 BP 139 / 63; Pulse 74; Resp 17; Temp 97.6; Pulse Ox 96% ; Weight 55.34 kg; Height 5 ft. ll1 7 in. ; Pain 9/10; 08:48 BP 122 / 56; Pulse 70; Resp 14; Pulse Ox 98% ; ko1 09:50 BP 126 / 62; Pulse 74; Resp 15; Pulse Ox 99% ; ko1 08:05 Body Mass Index 19.11 (55.34 kg, 170.18 cm) ll1 08:05 Pain Scale: Adult ll1 ED Course: 08:00 Patient arrived in ED. rg4 08:00 Dimitrios Bolton MD is Private Physician. rg4 08:01 Arm band placed on Patient placed in an exam room, on a stretcher. ll1 08:04 Serina Rogers PA-C [facility]. sb4 08:04 Arthur Smith MD is Attending Physician. sb4 08:05 Callie Berg, RN is Primary Nurse. db 08:07 Triage completed. ll1 08:48 Patient has correct armband on for positive identification. Allergy band placed. Bed in ko1 low position. Call light in reach. Side rails up X 1. Provided Education on: xray. Pulse ox on. NIBP on. Door closed. Noise minimized. Warm blanket given. 09:20 Foot Left 3 View XRAY In Process Unspecified. EDMS 09:41 Nick Rose DPM is Referral Physician. sb4 09:50 No provider procedures requiring assistance completed. Patient did not have IV access ko1 during this emergency room visit. Administered Medications: No medications were administered Medication: 08:48 VIS not applicable for this client. ko1 Outcome: 09:42 Discharge ordered by MD. sb4 09:54 Discharged to home via wheelchair, with family, ko1 09:54 Condition: stable 09:54 Discharge instructions given to patient, Instructed on discharge instructions, follow up and referral plans. Demonstrated understanding of instructions, follow-up care, 09:56 Patient left the ED. ko1 Signatures: Dispatcher [employer] EDRoselyn Wakefield rg4 Prabha Hummel RN RN ll1 Pilar Lee RN RN ko1 Callie Berg, RN RN Serina Chauhan, PA-C PA-C sb4
--- NOTE | 2023-10-06 09:43 | EDPHYS ---
Physician Documentation [facility] Name: Dolores Pérez Age: 63 yrs Sex: Female : 1960 Arrival Date: 10/06/2023 Time: 07:58 Bed 4 Private MD: Dimitrios Bolton C ED Physician Arthur Smith HPI: 10/05 08:11 This 63 yrs old Female presents to ER via Wheelchair with complaints of Foot Injury. sb4 08:11 Patient states that she injured her left foot yesterday. She is not sure how but she sb4 thinks that she awkwardly twisted her left second and third toe. She has already marley taped them and placed her foot in an orthopedic shoe. No other complaints at this time. Historical: - Allergies: 08:05 grapes; ll1 08:05 NSAIDS; ll1 08:05 ORANGES; ll1 08:05 peanuts; ll1 08:05 Prednisone; ll1 08:05 sesame seed; ll1 08:05 Sulfa (Sulfonamide Antibiotics); ll1 08:05 Aspirin; ll1 - PMHx: 08:05 Anxiety; Asthma; COPD; depressive disorder; diabetes mellitus; High Cholesterol; ll1 Hypertension; Hypothyroidism; Transient cerebral ischemia; - Immunization history:: Adult Immunizations up to date. - Social history:: Smoking status: Patient denies any tobacco usage or history of. ROS: 08:11 Constitutional: Negative for fever, chills, and weight loss, sb4 08:11 MS/extremity: Positive for injury or acute deformity, decreased range of motion, pain, of the left second toe and left third toe, 08:11 All other systems are negative, Exam: 08:11 Constitutional: This is a well developed, well nourished patient who is awake, alert, sb4 and in no acute distress. Head/Face: Normocephalic, atraumatic. Eyes: Extra-ocular motions intact. Periorbital areas with no swelling, redness, or edema. ENT: Mucous membranes moist. Skin: Warm, dry with normal turgor. Normal color with no rashes, no lesions, and no evidence of cellulitis. Neuro: Awake and alert, GCS 15, oriented to person, place, time, and situation. Motor strength 5/5 in all extremities. Sensory grossly intact. 08:11 Musculoskeletal/extremity: ROM: limited active range of motion due to pain, limited passive range of motion due to pain, Left second and third toe, Circulation is intact in all extremities. Pulses: are normal with no appreciated deficits, Perfusion: the extremity is normally perfused throughout, Sensation intact. Weight bearing: able to fully bear weight, Vital Signs: 08:05 BP 139 / 63; Pulse 74; Resp 17; Temp 97.6; Pulse Ox 96% ; Weight 55.34 kg; Height 5 ft. ll1 7 in. ; Pain 9/10; 08:48 BP 122 / 56; Pulse 70; Resp 14; Pulse Ox 98% ; ko1 09:50 BP 126 / 62; Pulse 74; Resp 15; Pulse Ox 99% ; ko1 08:05 Body Mass Index 19.11 (55.34 kg, 170.18 cm) ll1 08:05 Pain Scale: Adult ll1 MDM: 08:04 Patient medically screened. sb4 08:11 Differential diagnosis: closed fracture, contusion, Sprain. sb4 09:41 Data reviewed: vital signs, nurses notes, radiologic studies, and as a result, I will sb4 discharge patient. 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 10/05 08:07 Order name: Foot Left 3 View XRAY; Complete Time: 09:39 sb4 Administered Medications: No medications were administered Disposition Summary: 10/06/23 09:42 Discharge Ordered Notes: Location: Home sb4 Problem: new sb4 Symptoms: are unchanged sb4 Condition: Stable sb4 Diagnosis - nondisplaced oblique fracture of proximal phalanx of left second toe sb4 Followup: sb4 - With: Nick Rose DPM - When: 1 week - Reason: Recheck today's complaints, Re-evaluation by your physician Discharge Instructions: - Discharge Summary Sheet sb4 - Toe Fracture, Kkil-wj-Opnm sb4 Forms: - Thank You Letter sb4 - Patient Portal Instructions sb4 - Leadership Thank You Letter sb4 Addendum: 10/07/2023 11:00 I was immediately available for consultation during this patient's visit. I did not e c2 personally see the patient or discuss the patient with the JOHN. . Signatures: Dispatcher [employer] Prabha Lopez RN RN ll1 Serina Rogers PA-C PACriselda sb4 Arthur Smith MD MD ec2
[2023-10-06 13:44] VITALS: BP 126/62; TEMP 97.6; O2SAT 99
== END 2023-10-06 09:56 | disposition home or self-care (01) ==
LOC: ER 07:58
DX: S92.515A Nondisplaced fracture of proximal phalanx of left lesser toe(s), initial encounter for closed fracture (principal)
CPT/HCPCS: 99283

== ENCOUNTER 2024-01-13 11:17 | Emergency (ER) | payer OTHER ==
--- OUTSIDE RECORDS SUMMARY | 2024-01-13 11:39 | XMS REPORT | Continuity of Care Document ---
Author Name Unknown Address [address] [facility] [place] [address] [facility] Address [address] [facility] [place] [address] Care Team Providers Care Check Weigher Name Role Phone Rigo Bolton MD Primary Care Physician [phone] SelHiro ruiz DPM Attending Clinician + [phone] Neida DUGGAN Attending Clinician Unavailable Neida Jiménez Attending Clinician [phone] Portia Rodriguez Attending Clinician [phone] Unknown, Attending Attending Clinician Unavailab PORTIA Morales Attending Clinician Unavailable Doctor Unassigned, Ehrenfeld Attending Clinician U navailable Only, Ang Db Test Attending Clinician UnavailDonna Galdamez MD Attending Clinician [phone] DONNA CHARLES Attending Clinician Unavailable ALEX OCONNELL Attending Clinician UnavailAlex Schultz Attending Clinician + [phone] SHERRILL CONNOR Attending Clinician Unavailable Sherrill Connor MD Attending Clinician [phone] CAMERON DALTON Attending Clinician Unavailable Cameron Nick Attending Clinician [phone] Nirmala Daniels RN Attending Clinician Unavailab DARIUS Sen Attending Clinician Unavailable Darius Barragan Attending Clinician [phone] AJ CASTANO Attending Clinician Unavailable Aj Rosas Attending Clinician MARCELINA CHE Attending Clinician Unavailable Esther BARON, Marcelina Attending Clinician [phone] MAYTE ISSA Attending Clinician Unavailable Lab, Adc Fam Pob I Attending Clinician Unavailab reji CEE, Mayte Attending Clinician [phone] Diana Berg DO Attending Clinician Ibgildaunreji PRECISION THREAD GRINDER OPERATOR, Mariangel Caballero Attending Clinician Neida DUGGAN Admitting Clinician Unavailable ALEX OCONNELL Admitting Clinician UnavailCAMERON Gibson Admitting Clinician Unavailable DARIUS LEDESMA Admitting Clinician Unavailable AJ CASTANO Admitting Clinician Unavailable MARCELINA CHE Admitting Clinician Unavailable Marcelina Che MD Admitting Clinician [phone] Payers Payer Name Policy Type Policy Number Effective Date Expirati on Date Source [employer] II [id number] 2016 00:00:00 [employer] COMM [id number] 2007 00:00:00 Problems Condition Name Condition Details Condition Category Status Onset Date Resolution Date Last Treatment Date Treating Clinician Comments Source Primary hypertensi on Primary hypertensi on Disease Active 2020-07 00:00: 00 [facility] Other hyperlipid emia Other hyperlipid emia Disease Active 2020-07 00:00: 00 [facility] History of arterial ischemic stroke History of arterial ischemic stroke Disease Active 2020-07 00:00: 00 [facility] Chest pain Chest pain Disease Active 2020-07 00:00: 00 [facility] Primary hypothyroi dism Primary hypothyroi dism Disease Active 10-14 00:00: 00 [facility] Primary hypothyroi dism Primary hypothyroi dism Disease Active 10-14 00:00: 00 [facility] Allergies, Adverse Reactions, Alerts Allergy Name Allergy Type Status Severity Reaction(s) Onset Date Inactive Date Treating Clinician Comments Source CHASE DRUG INGREDI Active Anaphylaxis 2022-0 7-03 00:00: 00 [facility] Chase Propensi ty to adverse reaction s Active Anaphylaxis 7 00:00: 00 [facility] NAPROXEN SODIUM DRUG INGREDI Active Rash 2020-07 00:00: 00 [facility] METFORMI N DRUG INGREDI Active Diarrhea 2020-07 00:00: 00 [facility] Naproxen Sodium Propensi ty to adverse reaction s Active Rash 2020-07 00:00: 00 Able to take ibuprofen and asa [facility] Metformi n Propensi ty to adverse reaction s Active Diarrhea 2020-07 00:00: 00 [facility] SESAME Drug Class Active Anaphylaxis 0 9 00:00: 00 [facility] Sesame Propensi ty to adverse reaction s Active Anaphylaxis 0 9 00:00: 00 [facility] PEANUT DRUG INGREDI Active Anaphylaxis 2017-07 0-06 00:00: 00 [facility] PREDNISO NE DRUG INGREDI Active Other-Cmnt 2017-07 0-06 00:00: 00 [facility] Peanut Propensi ty to adverse reaction s Active Anaphylaxis 2017-07 0-06 00:00: 00 [facility] Predniso ne Propensi ty to adverse reaction s Active Other - See comments 2017-07 0-06 00:00: 00 Leg cramps [facility] ASPIRIN DRUG INGREDI Active Unknown-Cmnt 0 4-10 00:00: 00 [facility] NSAIDS (NON-RYAN ROIDAL ANTI-INF LAMMATOR Y DRUG) Drug Class Active Hives 0 4-10 00:00: 00 [facility] SULFA (SULFONA MIDE ANTIBIOT ICS) Drug Class Active Rash 0 4-10 00:00: 00 [facility] Aspirin Propensi ty to adverse reaction s Active Rash 0 4-10 00:00: 00 [facility] Nsaids (Non-Ryan roidal Anti-Inf lammator y Drug) Propensi ty to adverse reaction s Active Hives 410 00:00: 00 [facility] Sulfa (Sulfona mide Antibiot ics) Propensi ty to adverse reaction s Active Rash 410 00:00: 00 [facility] Sulfa (Sulfona mide Antibiot ics) Propensi ty to adverse reaction s Active Rash 410 00:00: 00 [facility] ALLERGIE S NOT ON FILE SYSTEMIC Active [facility] ALLERGIE S NOT ON FILE SYSTEMIC Active [facility] Social History Social Habit Start Date Stop Date Quantity Comments Source Gender identity 2023-09-28 14:25:40 Identifies as female gender (finding) [facility] [place] [place] Sexual orientation [facility] History of Social function 2023-02-26 00:00:00 2023-02-26 00:00:00 [facility] Exposure to SARS-CoV-2 (event) 2022-08-14 00:00:00 2022-08-24 09:35:00 Not sure [facility] Tobacco use and exposure 2022-08-24 00:00:00 2022-08-24 00:00:00 Smokeless tobacco non-user [facility] Sex Assigned At 1960 00:00:00 1960 00:00:00 [facility] Smoking Status Start Date Stop Date Source Tobacco smoking consumption unknown [facility] Never smoked tobacco [facility] Medications Ordered Medication Name Filled Medication Name Start Date Stop Date Current Medication? Ordering Clinician Indication Dosage Frequency Signature (SIG) Comments Components Source bromphenira mine-pseudo ephedrine-D M (BROMFED DM) 2-30-10 mg/5 mL syrup 08-24 00:00: 00 Yes [id number] 5mL Take 5 mL by mouth 4 (four) times daily as needed for Congestion /Allergies . [facility] benzonatate 100 mg capsule 01-06 00:00: 00 Yes [id number] 100mg Take 1 capsule by mouth 3 (three) times daily as needed for Cough. [facility] loratadine (CLARITIN) 10 mg tablet 01-06 00:00: 00 Yes [id number] 10mg Take 1 tablet by mouth at bedtime as needed for Allergies. [facility] benzonatate 100 mg capsule 08-07 00:00: 00 Yes [id number] 100mg Take 1 capsule by mouth 3 (three) times daily as needed for Cough. [facility] ampicillin- sulbactam (UNASYN) 3 g in NaCl 0.9% (NS) 100 mL MINI-BAG 2020-07 01:00: 06-30 00:47 :00 No 3g 3 g, IV Piggyback, ONCE, 1 dose, On Fri06/29/21 at 1900, Administer over 30 Minutes, 100 mL
Reas on for Anti-Infec tive: Documented Infection< br>Documen zoila Infection Site: Abdominal< br>Duratio n of Therapy: Other (see Comments) [facility] iopamidol (ISOVUE 370-500 mL) injection 120 mL 2020-07 00:15: 00 06-29 23:08 :00 No [id number] 120mL 120 mL, Intravenou s, ONCE, 1 dose, On Fri06/29/21 at 1815, Routine [facility] amoxicillin -clavulanat e 875-125 mg per tablet 2020-07 00:00: 00 07-10 05:59 :00 No [id number] 1{tbl} Take 1 tablet by mouth every 12 (twelve) hours for 10 days. [facility] traMADoL 50 mg tablet 2020-07 00:00: 00 07-05 05:59 :00 No [id number] 50mg Take 1 tablet by mouth every 6 (six) hours for 5 days. Indication s: acute pain [facility] ondansetron 4 mg tablet 2020-07 00:00: 00 07-05 05:59 :00 No [id number] 4mg Take 1 tablet by mouth every 8 (eight) hours for 5 days. [facility] atorvastati n (LIPITOR) tablet 10 mg 2021-1 1-15 03:00: 00 Yes 10mg 10 mg, Oral, QHS, First dose on 05/20/21 at 2100, Until Discontinu ed, Routine [facility] atorvastati n 10 mg tablet 2020-07 17:23: 01 Yes 10mg Take 10 mg by mouth at bedtime. [facility] spironolact one 25 mg tablet 2020-07 17:23: 01 Yes 25mg Take 25 mg by mouth 2 (two) times daily. [facility] pantoprazol e sodium (PANTOPRAZO LE ORAL) 2020-07 17:23: 01 Yes 40mg Take 40 mg by mouth daily. [facility] magnesium gluconate 200 mg tablet 2020-07 17:23: 01 Yes 200mg Take 200 mg by mouth daily. At night as per pt [facility] metformin HCl (METFORMIN ORAL) 2020-07 17:23: 01 Yes 500mg Take 500 mg by mouth at bedtime. [facility] magnesium gluconate 200 mg tablet 2020-07 17:23: 01 Yes 200mg Take 200 mg by mouth daily. At night as per pt [facility] enoxaparin (LOVENOX) injection 40 mg 2020-07 15:00: 00 Yes 40mg 40 mg, Subcutaneo us, DAILY, First dose on 05/20/21 at 0900, Until Discontinu ed, Routine [facility] clopidogreL (PLAVIX) tablet 75 mg 2020-07 15:00: 00 Yes 75mg 75 mg, Oral, QAM, First dose on 05/20/21 at 0900, Until Discontinu ed, Routine [facility] ALPRAZolam (XANAX) tablet 0.5 mg 2020-07 15:00: 00 Yes .5mg 0.5 mg, Oral, DAILY, First dose on 05/20/21 at 0900, Until Discontinu ed, Routine [facility] spironolact one (ALDACTONE) tablet 25 mg 2020-07 14:00: 00 Yes 25mg 25 mg, Oral, BID, First dose on 05/20/21 at 0800, Until Discontinu ed, Routine [facility] Sliding Scale Insulin-Reg ular + Fsbg Testing 2020-07 13:30: 00 Yes Subcutaneo us, AC, First dose on 05/20/21 at 0730, Until Discontinu ed, Routine [facility] levothyroxi ne (SYNTHROID) tablet 100 mcg 2020-07 12:00: 00 Yes 100ug 100 mcg, Oral, QAM-0600, First dose on 05/20/21 at 0600, Until Discontinu ed, Routine [facility] pantoprazol e (PROTONIX) EC tablet 40 mg 2020-07 06:30: 00 Yes 40mg 40 mg, Oral, DAILY, First dose (after last modificati on) on 05/20/21 at 0030, Until Discontinu ed [facility] cyclobenzap rine (FLEXERIL) tablet 10 mg 2020-07 06:12: 13 Yes 10mg 10 mg, Oral, TIDPRN, Starting on 05/20/21 at 0012, Until Discontinu ed, Routine, Muscle Spasms, leg pain [facility] polyethylen e glycol 3350 powder 17 g 2020-07 06:04: 16 Yes 17g 17 g, Oral, [id number], Starting on 05/20/21 at 0004, Until Discontinu ed, Routine, Constipati on [facility] glucagon (GLUCAGEN DIAGNOSTIC KIT) injection 1 mg 2020-07 05:29: 29 Yes 1mg 1 mg, Intramuscu lar, PRN, Starting on 05/19/21 at 2329, Until Discontinu ed, JEFFREY, Blood Glucose < or = 70 mg/dL and patient is unable to swallow or has mental changes. [facility] dextrose 50 % in water (D50W) injection 25 mL 2020-07 05:29: 29 Yes 25mL 25 mL, Slow IV Push, PRN, Starting on 05/19/21 at 2329, Until Discontinu ed, JEFFREY, Blood Glucose < or = 70 mg/dL and patient is unable to swallow or has mental status changes. [facility] ondansetron (ZOFRAN (PF)) injection 4 mg 2020-07 05:29: 21 Yes 4mg 4 mg, Slow IV Push, Q6HPRN, Starting on 05/19/21 at 2329, Until Discontinu ed, Routine, Nausea and Vomiting (N/V) [facility] morpHINE injection 2 mg 2020-07 05:29: 11 05-21 05:28 :11 No 2mg 2 mg, Slow IV Push, Q4HPRN, Starting on 05/19/21 at 2329, Until 05/20/21 at 2328, Routine, Pain (scale 7-10), Chest pain [facility] traMADoL (ULTRAM) tablet 50 mg 2020-07 05:29: 08 05-22 05:28 :08 No 50mg 50 mg, Oral, Q8HPRN, Starting on 05/19/21 at 2329, Until 05/21/21 at 2328, Routine, Pain (scale 4-6) [facility] acetaminoph en (TYLENOL) tablet 650 mg 2020-07 05:29: 05 Yes 650mg 650 mg, Oral, Q6HPRN, Starting on 05/19/21 at 2329, Until Discontinu ed, Routine, Pain (scale 1-3) [facility] omeprazole 20 mg capsule 2020-07 23:30: 33 05-19 00:00 :00 No 20mg Take 20 mg by mouth daily. [facility] guaiFENesin 100 mg/5 mL solution 100 mg 09-14 05:00: 00 09-14 16:59 :00 No 100mg 100 mg, Oral, ONCE, 1 dose, Fri09/13/20 at 2300, Routine [facility] ketorolac (TORADOL) injection 30 mg 09-14 03:30: 00 09-14 02:27 :00 No 30mg 30 mg, Slow IV Push, ONCE, 1 dose, Fri09/13/20 at 2130, JEFFREY
Fa culty member approving Restricted medication : DIANA BERG [facility] benzonatate 100 mg capsule 3-10 00:00: 00 05-19 00:00 :00 No [id number] 100mg Take 1 capsule by mouth 3 (three) times daily as needed for Cough. [facility] ipratropium -albuterol (DUONEB) 0.5 mg-3 mg(2.5 mg base)/3 mL nebulizer solution 6 mL 07-28 02:15: 00 07-28 01:21 :00 No 6mL 6 mL, Inhalation , ONCE, 1 dose, 07/27/19 at 2015, Routine [facility] codeine-gua ifenesin (ROBITUSSIN AC) 10-100 mg/5 mL solution 10 mL 07-28 01:30: 00 07-28 00:55 :00 No 10mL 10 mL, Oral, ONCE, 1 dose, 07/27/19 at 1930, [facility] codeine-gua ifenesin 10-100 mg/5 mL solution 07-27 00:00: 00 Yes [id number] 10mL Take 10 mL by mouth every 6 (six) hours as needed for Cough. [facility] albuterol 2.5 mg /3 mL (0.083 %) nebulizer solution 07-27 00:00: 00 Yes [id number] 2.5mg Inhale 3 mL every 4 (four) hours as needed for Wheezing or Shortness of Breath. May also nebulize one extra every 6 hours. [facility] ondansetron (ZOFRAN (PF)) injection 4 mg 03-11 20:30: 00 03-11 19:53 :00 No 4mg 4 mg, Slow IV Push, ONCE, 1 dose, [facility] 03/11/19 at 1530, [facility] NaCl 0.9% (NS) bolus infusion 1,000 mL 03-11 19:30: 00 03-11 20:56 :00 No 1000mL at 999 mL/hr, 1,000 mL, IV Infusion, ONCE, 1 dose, Martha 03/11/19 at 1430, JEFFREY [facility] dicyclomine (BENTYL) 10 mg capsule 03-11 00:00: 00 Yes [id number] 10mg Take 1 capsule by mouth 4 (four) times daily. [facility] ondansetron 4 mg disintegrat ing tablet 03-11 00:00: 00 Yes [id number] 4mg Take 1 tablet by mouth every 4 (four) hours as needed for Nausea and Vomiting (N/V). [facility] benzonatate 100 mg capsule 2017-07 00:00: 00 Yes 100mg Take 1 capsule by mouth 3 (three) times daily as needed for Cough. [facility] acetaminoph en-codeine (TYLENOL-CO DEINE #3) 300-30 mg tablet 2017-07 00:00: 00 09-13 00:00 :00 No 1{tbl} Take 1 tablet by mouth every 4 (four) hours as needed for Pain (scale 7-10). [facility] atorvastati n 10 mg tablet 10-14 14:40: 51 Yes 10mg Take 10 mg by mouth at bedtime. [facility] omeprazole 20 mg capsule 10-14 14:40: 51 Yes 20mg Take 20 mg by mouth daily. [facility] levothyroxi ne 125 mcg tablet 10-14 00:00: 00 Yes TAKE 1 TABLET BY MOUTH EVERY MORNING [facility] SYMBICORT 160-4.5 mcg/actuati on inhaler 10-01 00:00: 00 05-19 00:00 :00 No TAKE 2 PUFFS BY MOUTH TWICE A DAY [facility] ALPRAZolam 0.25 mg tablet 09-30 00:00: 00 Yes .5mg Take 0.5 mg by mouth daily. Pt taking 0.5mg daily [facility] diltiazem 60 mg tablet 09-30 00:00: 00 05-19 00:00 :00 No TAKE 1 TABLET BY MOUTH TWICE A DAY [facility] losartan 25 mg tablet 08-22 00:00: 00 05-19 00:00 :00 No TAKE 1 TABLET BY MOUTH EVERY MORNING [facility] clopidogrel 75 mg tablet 08-12 00:00: 00 Yes TAKE 1 TABLET BY MOUTH EVERY MORNING [facility] Vital Signs Vital Name Observation Time Observation Value Comments S ource Systolic blood pressure 2023-02-26 20:38:00 149 mm[Hg] [facility] Diastolic blood pressure 2023-02-26 20:38:00 75 mm[Hg] [facility] Heart rate 2023-02-26 20:38:00 81 /[facility] Body temperature 2023-02-26 20:38:00 36.72 Brittany [facility] Respiratory rate 2023-02-26 20:38:00 18 /min [facility] Body height 2023-02-26 20:38:00 170.2 cm [facility] Body weight 2023-02-26 20:38:00 57.607 kg [facility] BMI 2023-02-26 20:38:00 19.89 kg/m2 [facility] Oxygen saturation in Arterial blood by Pulse oximetry 2023-02-26 20:38:00 100 /min [facility] Systolic blood pressure 2022-08-24 15:43:00 135 mm[Hg] [facility] Diastolic blood pressure 2022-08-24 15:43:00 83 mm[Hg] [facility] Heart rate 2022-08-24 15:43:00 94 /min [facility] Body temperature 2022-08-24 15:43:00 36.83 Brittany [facility] Respiratory rate 2022-08-24 15:43:00 18 /min [facility] Body height 2022-08-24 15:43:00 170.2 cm [facility] Body weight 2022-08-24 15:43:00 58.968 kg [facility] BMI 2022-08-24 15:43:00 20.36 kg/m2 [facility] Oxygen saturation in Arterial blood by Pulse oximetry 2022-08-24 15:43:00 99 /min [facility] Systolic blood pressure 2022-01-08 02:02:00 147 mm[Hg] [facility] Diastolic blood pressure 2022-01-08 02:02:00 78 mm[Hg] [facility] Heart rate 2022-01-08 02:02:00 78 /min [facility] Respiratory rate 2022-01-08 02:02:00 18 /min [facility] Oxygen saturation in Arterial blood by Pulse oximetry 2022-01-08 02:02:00 100 /min [facility] Body temperature 2022-01-07 23:24:00 37.17 Brittany [facility] Body weight 2022-01-07 23:24:00 58.968 kg [facility] BMI 2022-01-07 23:24:00 20.36 kg/m2 [facility] Systolic blood pressure 2022-01-06 20:29:00 140 mm[Hg] [facility] Diastolic blood pressure 2022-01-06 20:29:00 106 mm[Hg] [facility] Heart rate 2022-01-06 20:29:00 102 /min [facility] Body temperature 2022-01-06 20:29:00 37.5 Brittany [facility] Respiratory rate 2022-01-06 20:29:00 16 /min [facility] Body height 2022-01-06 20:29:00 170.2 cm [facility] Body weight 2022-01-06 20:29:00 58.968 kg [facility] BMI 2022-01-06 20:29:00 20.36 kg/m2 [facility] Oxygen saturation in Arterial blood by Pulse oximetry 2022-01-06 20:29:00 99 /min [facility] Systolic blood pressure 2021-09-02 01:52:00 132 mm[Hg] [facility] Diastolic blood pressure 2021-09-02 01:52:00 75 mm[Hg] [facility] Heart rate 2021-09-02 01:52:00 67 /min [facility] Respiratory rate 2021-09-02 01:52:00 16 /min [facility] Oxygen saturation in Arterial blood by Pulse oximetry 2021-09-02 01:52:00 99 /min [facility] Body temperature 2021-09-01 23:57:00 36.17 Brittany [facility] Body height 2021-09-01 23:57:00 170.2 cm [facility] Body weight 2021-09-01 23:57:00 58.968 kg [facility] BMI 2021-09-01 23:57:00 20.36 kg/m2 [facility] Systolic blood pressure 2021-08-07 15:57:00 165 mm[Hg] [facility] Diastolic blood pressure 2021-08-07 15:57:00 71 mm[Hg] [facility] Heart rate 2021-08-07 15:57:00 97 /min [facility] Body temperature 2021-08-07 15:57:00 37.44 Brittany [facility] Respiratory rate 2021-08-07 15:57:00 18 /min [facility] Body height 2021-08-07 15:57:00 170.2 cm [facility] Body weight 2021-08-07 15:57:00 56.7 kg [facility] BMI 2021-08-07 15:57:00 19.58 kg/m2 [facility] Oxygen saturation in Arterial blood by Pulse oximetry 2021-08-07 15:57:00 98 /min [facility] Systolic blood pressure 2021-06-30 01:29:00 132 mm[Hg] [facility] Diastolic blood pressure 2021-06-30 01:29:00 75 mm[Hg] [facility] Heart rate 2021-06-30 01:29:00 75 /min [facility] Respiratory rate 2021-06-30 01:29:00 18 /min [facility] Oxygen saturation in Arterial blood by Pulse oximetry 2021-06-30 01:29:00 100 /min [facility] Body temperature 2021-06-29 22:01:00 36.67 Brittany [facility] Body weight 2021-06-29 22:01:00 53.071 kg [facility] BMI 2021-06-29 22:01:00 18.32 kg/m2 [facility] Systolic blood pressure 2021-05-20 21:45:00 137 mm[Hg] [facility] Diastolic blood pressure 2021-05-20 21:45:00 75 mm[Hg] [facility] Heart rate 2021-05-20 21:45:00 75 /min [facility] Body temperature 2021-05-20 21:45:00 36.5 Brittany [facility] Respiratory rate 2021-05-20 21:45:00 16 /min [facility] Oxygen saturation in Arterial blood by Pulse oximetry 2021-05-20 21:45:00 97 /min [facility] Body weight 2021-05-20 04:14:00 53.479 kg [facility] BMI 2021-05-20 04:14:00 18.47 kg/m2 [facility] Body height 2021-05-20 03:42:00 170.2 cm [facility] Systolic blood pressure 2020-09-14 03:30:00 147 mm[Hg] [facility] Diastolic blood pressure 2020-09-14 03:30:00 89 mm[Hg] [facility] Heart rate 2020-09-14 03:30:00 73 /min [facility] Respiratory rate 2020-09-14 03:30:00 19 /min [facility] Oxygen saturation in Arterial blood by Pulse oximetry 2020-09-14 03:30:00 97 /min [facility] Body temperature 2020-09-14 02:10:00 36.5 Brittany [facility] Body height 2020-09-14 02:09:00 170.2 cm [facility] Body weight 2020-09-14 02:09:00 61.236 kg [facility] BMI 2020-09-14 02:09:00 21.14 kg/m2 [facility] Systolic blood pressure 2020-09-14 03:30:00 147 mm[Hg] [facility] Diastolic blood pressure 2020-09-14 03:30:00 89 mm[Hg] [facility] Heart rate 2020-09-14 03:30:00 73 /min [facility] Respiratory rate 2020-09-14 03:30:00 19 /min [facility] Oxygen saturation in Arterial blood by Pulse oximetry 2020-09-14 03:30:00 97 /min [facility] Body temperature 2020-09-14 02:10:00 36.5 Brittany [facility] Body height 2020-09-14 02:09:00 170.2 cm [facility] Body weight 2020-09-14 02:09:00 61.236 kg [facility] BMI 2020-09-14 02:09:00 21.14 kg/m2 [facility] Heart rate 2019-07-28 01:36:00 70 /min [facility] Respiratory rate 2019-07-28 01:36:00 18 /min [facility] Oxygen saturation in Arterial blood by Pulse oximetry 2019-07-28 01:24:00 98 /min [facility] Systolic blood pressure 2019-07-28 01:00:00 143 mm[Hg] [facility] Diastolic blood pressure 2019-07-28 01:00:00 74 mm[Hg] [facility] Body temperature 2019-07-28 00:05:00 36.56 Brittany [facility] Body height 2019-07-28 00:05:00 170.2 cm [facility] Body weight 2019-07-28 00:05:00 68.04 kg [facility] BMI 2019-07-28 00:05:00 23.49 kg/m2 [facility] Heart rate 2019-07-28 01:36:00 70 /min [facility] Respiratory rate 2019-07-28 01:36:00 18 /min [facility] Oxygen saturation in Arterial blood by Pulse oximetry 2019-07-28 01:24:00 98 /min [facility] Systolic blood pressure 2019-07-28 01:00:00 143 mm[Hg] [facility] Diastolic blood pressure 2019-07-28 01:00:00 74 mm[Hg] [facility] Body temperature 2019-07-28 00:05:00 36.56 Brittany [facility] Body height 2019-07-28 00:05:00 170.2 cm [facility] Body weight 2019-07-28 00:05:00 68.04 kg [facility] BMI 2019-07-28 00:05:00 23.49 kg/m2 [facility] Systolic blood pressure 2019-03-11 21:00:00 141 mm[Hg] [facility] Diastolic blood pressure 2019-03-11 21:00:00 66 mm[Hg] [facility] Heart rate 2019-03-11 21:00:00 97 /min [facility] Respiratory rate 2019-03-11 21:00:00 18 /min [facility] Oxygen saturation in Arterial blood by Pulse oximetry 2019-03-11 21:00:00 97 /min [facility] Body temperature 2019-03-11 19:13:00 36.06 Brittany [facility] Body weight 2019-03-11 19:12:00 68.04 kg [facility] BMI 2019-03-11 19:12:00 23.49 kg/m2 [facility] Systolic blood pressure 2019-03-11 21:00:00 141 mm[Hg] [facility] Diastolic blood pressure 2019-03-11 21:00:00 66 mm[Hg] [facility] Heart rate 2019-03-11 21:00:00 97 /min [facility] Respiratory rate 2019-03-11 21:00:00 18 /min [facility] Oxygen saturation in Arterial blood by Pulse oximetry 2019-03-11 21:00:00 97 /min [facility] Body temperature 2019-03-11 19:13:00 36.06 Brittany [facility] Body weight 2019-03-11 19:12:00 68.04 kg [facility] BMI 2019-03-11 19:12:00 23.49 kg/m2 [facility] Procedures Procedure Date / Time Performed Performing Clinician Source COMP. METABOLIC PANEL (36329) 2023-02-26 21:14:00 Neida Duggan [facility] CBC WITH DIFF 2023-02-26 21:14:00 Neida Duggan [facility] CONSENT/REFUSAL FOR DIAGNOSIS AND TREATMENT 2023-02-26 20:33:07 Doctor Unassigned, [place] [facility] POCT SARS-COV-2 ANTIGEN (BINAX NOW) 2022-08-24 15:52:00 Portia Lee [facility] POCT MOLECULAR FLU 2022-08-24 15:51:00 Unknown, Attend ing [facility] ASSIGNMENT OF BENEFITS 2022-08-24 15:38:07 Docto r Unassigned, [place] [facility] XR CHEST 1 VW 2022-01-08 00:24:42 Alex Oconnell [facility] RAPID STREP SCREEN FOR GROUP A 2022-01-06 20:47:00 Sherrill Connor [facility] COVID-19 (ID NOW RAPID TESTING) 2022-01-06 20:47:00 Nikolas [facility] CONSENT/REFUSAL FOR DIAGNOSIS AND TREATMENT 2022-01-06 20:26:18 Doctor Unassigned, [place] [facility] RAPID INFLUENZA A/B 2021-09-02 00:47:00 Apryl Dalton [facility] COVID-19 (ID NOW RAPID TESTING) 2021-09-02 00:47:00 Cameron Dalton [facility] XR CHEST 2 VW 2021-09-02 00:27:31 [facility] CONSENT/REFUSAL FOR DIAGNOSIS AND TREATMENT 2021-09-01 23:46:25 Doctor Unassigned, [place] [facility] XR CHEST 2 VW 2021-08-07 16:43:01 Darius Ledesma [facility] CONSENT/REFUSAL FOR DIAGNOSIS AND TREATMENT 2021-08-07 15:37:28 Doctor Unassigned, [place] [facility] CT ABDOMEN PELVIS W CONTRAST 2021-06-29 23:11:24 Aj Castano [facility] LIPASE 2021-06-29 22:18:00 Aj Castano [facility] TROPONIN I 2021-06-29 22:18:00 Aj Castano [facility] COMP. METABOLIC PANEL (81995) 2021-06-29 [facility]:18[facility] 2021-06-29 22:18:00 Aj Castano [facility] URINALYSIS 2021-06-29 22:18:00 Aj Castano [facility] CONSENT/REFUSAL FOR DIAGNOSIS AND TREATMENT 2021-06-29 21:50:47 Doctor Unassigned, [place] [facility] POCT GLUCOSE (AUTOMATED) 2021-05-20 17:30:00 Esther [facility] HB ECG ROUTINE & RHYTHM STRIP 2021-05-20 15:36:46 Sami Caceres [facility] TRANSTHORACIC ECHO (TTE) COMPLETE 2021-05-20 15:19:52 Esther [facility] TROPONIN I 2021-05-20 11:04:00 Marcelina Che [facility] BASIC METABOLIC PANEL (NA, K, CL, CO2, GLUCOSE, BUN, CREATININE, CA) 2021-05-20 11:04:00 Esther [facility] CBC WITH DIFF 2021-05-20 11:04:00 Marcelina Che [facility] TROPONIN I 2021-05-20 01:56:00 Neida Duggan [facility] XR CHEST 1 VW 2021-05-20 00:01[facility]05 [facility] 2021-05-19 23:49:00 Neida Duggan [facility] MAGNESIUM 2021-05-19 23:49:00 Neida Duggan [facility] TROPONIN I 2021-05-19 23:49:00 Neida Duggan [facility] COMP. METABOLIC PANEL (78083) 2021-05-19 23:49:00 Neida Duggan [facility] CBC WITH DIFF 2021-05-19 23:49:00 Neida Duggan [facility] PROTHROMBIN TIME / INR 2021-05-19 23:49:00 Neida Duggan [facility] ACTIVATED PARTIAL THRMPLAS VANI 2021-05-19 23:49:00 Neida Duggan [facility] COVID-19 (ID NOW RAPID TESTING) 2021-05-19 23:49:00 Neida Duggan [facility] CONSENT/REFUSAL FOR DIAGNOSIS AND TREATMENT 2021-05-19 23:01:42 Doctor Unassigned, [place] [facility] URINALYSIS 2020-09-14 02:42:00 Diana Berg [facility] XR CHEST 1 VW 2020-09-14 02:30:21 Diana Berg [facility] LIPASE 2020-09-14 02:21:00 Diana Berg [facility] TROPONIN I 2020-09-14 02:21:00 Diana Berg [facility] HEPATIC FUNCTION PANEL (53101) (ALB,T.PRO,BILI T,BU/BC,ALT,AST,ALK PHOS) 2020-09-14 02:21:00 Diana Berg [facility] BASIC METABOLIC PANEL (NA, K, CL, CO2, GLUCOSE, BUN, CREATININE, CA) 2020-09-14 02:21:00 Diana Berg [facility] CBC WITH DIFF 2020-09-14 02:21:00 Diana eBrg [facility] N-TERMINAL PRO-BNP 2020-09-14 02:21:00 Lala Berg [facility] COVID-19 (ID NOW RAPID TESTING) 2020-09-14 02:21:00 Diana Berg [facility] NOTICE OF PRIVACY PRACTICES 2020-09-14 02:00:22 Doctor Unassigned, [place] [facility] CONSENT/REFUSAL FOR DIAGNOSIS AND TREATMENT 2020-09-14 01:58:28 Doctor Unassigned, [place] [facility] HEPATIC FUNCTION PANEL ([id number]) (ALB,T.PRO,BILI T,BU/BC,ALT,AST,ALK PHOS) 2019-07-28 00:55:00 Mariangel Ortega [facility] BASIC METABOLIC PANEL (NA, K, CL, CO2, GLUCOSE, BUN, CREATININE, CA) 2019-07-28 00:55:00 Mariangel Ortega [facility] CBC WITH DIFFERENTIAL 2019-07-28 00:55:00 Marva Ortega [facility] RAPID STREP SCREEN FOR GROUP A 2019-07-28 00:55:00 Mariangel Ortega [facility] ADC,CLC OR LCC ONLY - INFLUENZA A & B DIRECT ANTIGEN 2019-07-28 00:55:00 Mariangel Ortega [facility] CBC WITH DIFFERENTIAL 2019-07-28 00:55:00 Marva Ortega [facility] XR CHEST 2 VW 2019-07-28 00:28:40 Mariangel Ortega [facility] CONSENT/REFUSAL FOR DIAGNOSIS AND TREATMENT 2019-07-27 23:47:18 Doctor Unassigned, [place] [facility] LIPASE 2019-03-11 19:53:00 Sherrill Connor [facility] HEPATIC FUNCTION PANEL ([id number]) (ALB,T.PRO,BILI T,BU/BC,ALT,AST,ALK PHOS) 2019-03-11 19:53:00 Sherrill Connor [facility] BASIC METABOLIC PANEL (NA, K, CL, CO2, GLUCOSE, BUN, CREATININE, CA) 2019-03-11 19:53:00 Sherrill Connor [facility] CBC WITH DIFFERENTIAL 2019-03-11 19:53:00 Prosper Connor [facility] PROTHROMBIN TIME / INR 2019-03-11 19:53:00 Bill Connor [facility] ACTIVATED PARTIAL THRMPLAS VANI 2019-03-11 19:53:00 Sherrill Connor [facility] NOTICE OF PRIVACY PRACTICES 2019-03-11 18:56:54 Doctor Unassigned, [place] [facility] Encounters Start Date/Time End Date/Time Encounter Type Admission Type Attending [facility] Facility Care Department Encounter ID Source 2021-05-06 05:05:13 Emergency [facility] [id number] [facility] 2024-01-05 09:14:13 2024-01-05 09:14:13 Outpatient SFA SFA [id number] Abebe Beaulieu 2024-01-01 09:49:43 2024-01-01 09:49:43 Outpatient SFA SFA [id number] Abebe Beaulieu 2023-12-19 12:30:25 2023-12-19 12:30:25 Outpatient SFA SFA [id number] Abebe Beaulieu 2023-12-18 13:35:13 2023-12-18 13:35:13 Outpatient SFA SFA [id number] Abebe Beaulieu 2023-12-12 14:26:47 2023-12-12 14:26:47 Outpatient SFA SFA [id number] Abebe Caballero Christofer 2023-12-08 12:00:00 2023-12-08 13:03:09 Office Visit Elective Hiro Lawrence [facility] 1.2.840.114 350.1.13.70 8.2.7.2.686 [id number] 3 Virgilio Guzman [facility] 2023-12-04 13:03:20 2023-12-04 13:03:20 Outpatient SFA SFA [id number] Abebe Beaulieu 2023-11-24 09:38:53 2023-11-24 09:38:53 Outpatient SFA SFA [id number] Abebe Beaulieu 2023-11-12 10:43:39 2023-11-12 10:43:39 Outpatient SFA SFA [id number] Abebe Beaulieu 2023-11-11 09:14:49 2023-11-11 09:14:49 Outpatient SFA SFA [id number] Abebe Beaulieu 2023-11-09 09:45:41 2023-11-09 09:45:41 Outpatient [facility] [id number] Abebe Beaulieu 2023-10-27 08:36:14 2023-10-27 08:36:14 Outpatient [facility] [id number] Abebe Beaulieu 2023-09-29 09:07:23 2023-09-29 09:07:23 Outpatient [facility] [id number] Abebe Beaulieu 2023-07-08 09:29:45 2023-07-08 09:29:45 Outpatient [facility] [id number] Abebe Beaulieu 2023-02-26 15:53:00 2023-02-26 17:52:00 Emergency X Neida DUGGAN [facility] ERT [id number] [facility] 2023-02-26 15:53:00 2023-02-26 17:52:00 Emergency Neida Duggan [facility] 1.840.114 350.1.13.10 4.2.7.2.686 [id number] [facility] 2022-08-24 09:40:00 2022-08-24 10:00:00 Urgent Care Portia Lee Unknown, Attending [facility] 1..840.114 350.1.13.10 4.2.7.2.686 [id number] [facility] 2022-08-24 09:40:00 2022-08-24 09:40:00 Outpatient R PORTIA LEE [facility] [id number] [facility] 2022-08-24 00:00:00 2022-08-24 00:00:00 Orders Only Doctor Unassigned, [place] [facility] 1.840.114 350.1.13.10 4.2.7.2.686 [id number] [facility] 2022-01-11 13:15:00 2022-01-11 13:30:00 Laboratory Only Only, Ang Db Test Donna Charles [facility] 1.2.840.114 350.1.13.10 4.2.7.2.686 [id number] [facility] 2022-01-11 13:15:00 2022-01-11 13:24:38 Outpatient R DONNA CHARLES [facility] [id number] [facility] 2022-01-07 18:26:00 2022-01-07 21:08:00 Emergency X ANISH [facility] ERT [id number] [facility] 2022-01-07 18:26:00 2022-01-07 21:08:00 Emergency Anish [facility] 1..840.114 350.1.13.10 4.2.7.2.686 [id number] [facility] 2022-01-06 15:31:00 2022-01-06 16:32:00 Emergency X SHERRILL CONNOR [facility] ERT [id number] [facility] 2022-01-06 15:31:00 2022-01-06 16:32:00 Emergency Sherrill Connor [facility] 1..840.114 350.1.13.10 4.2.7.2.686 [id number] [facility] 2021-09-01 17:59:00 2021-09-01 19:56:00 Emergency X MITUL DALTONANNE [facility] ERT [id number] [facility] 2021-09-01 17:59:00 2021-09-01 19:56:00 Emergency Cameron Dalton [facility] 1..840.114 350.1.13.10 4.2.7.2.686 [id number] [facility] 2021-09-01 00:00:00 2021-09-01 00:00:00 Orders Only Doctor Unassigned, [place] [facility] 1.2.840.114 350.1.13.10 4.2.7.2.686 [id number] [facility] 2021-08-08 00:00:00 2021-08-08 00:00:00 Letter (Out) Nirmala Daniels [facility] 1.2840.114 350.1.13.10 4.2.7.2.686 [id number] [facility] 2021-08-07 09:58:00 2021-08-07 11:43:00 Emergency X DARIUS LEDESMA [facility] ERT [id number] [facility] 2021-08-07 09:58:00 2021-08-07 11:43:00 Emergency Darius Ledesma [facility] 1.2840.114 350.1.13.10 4.2.7.2.686 [id number] [facility] 2021-08-07 00:00:00 2021-08-07 00:00:00 Orders Only Doctor Unassigned, [place] [facility] 1.2.840.114 350.1.13.10 4.2.7.2.686 [id number] [facility] 2021-06-29 16:04:00 2021-06-29 19:33:00 Emergency X AJ CASTANO [facility] ERT [id number] [facility] 2021-06-29 16:04:00 2021-06-29 19:33:00 Emergency Aj Castano [facility] 1.2840.114 350.1.13.10 4.2.7.2.686 [id number] [facility] 2021-05-19 17:04:00 2021-05-20 17:03:00 Outpatient X MARCELINA CHE [facility] YEISON [id number] [facility] 2021-05-19 17:04:00 2021-05-20 17:03:00 Emergency AristidesNeida diaz EdMarcelina gleason [facility] 1.2.840.114 350.1.13.10 4.2.7.2.686 [id number] [facility] 2020-09-16 10:20:00 2020-09-16 10:20:00 Outpatient Torres [facility] [id number] [facility] 2020-09-16 09:44:15 2020-09-16 10:04:15 Laboratory Only Lab, [facility] [place] [facility] 1.2.840.114 350.1.13.10 4.2.7.2.686 [id number] [facility] 2020-09-16 09:44:15 2020-09-16 10:04:15 Laboratory Only Lab, [facility] 1.2.840.114 350.1.13.10 4.2.7.2.686 [id number] 2020-09-13 20:05:00 2020-09-13 22:24:00 Emergency Diana Berg Arjun [facility] 1.2.840.114 350.1.13.10 4.2.7.2.686 [id number] [facility] 2020-09-13 20:05:00 2020-09-13 22:24:00 Emergency Diana Berg [facility] 1.2.840.114 350.1.13.10 4.2.7.2.686 [id number] 2019-07-27 18:07:12 2019-07-27 20:13:00 Emergency Mariangel Ortega [facility] 1.2.840.114 350.1.13.10 4.2.7.2.686 [id number] [facility] 2019-07-27 18:07:12 2019-07-27 20:13:00 Emergency Mariangel Ortega [facility] 1.2.840.114 350.1.13.10 4.2.7.2.686 [id number] 2019-07-27 00:00:00 2019-07-27 00:00:00 Orders Only Doctor Unassigned, [place] [facility] 1.2.840.114 350.1.13.10 4.2.7.2.686 [id number] [facility] 2019-07-27 00:00:00 2019-07-27 00:00:00 Orders Only Doctor Unassigned, [place] [facility] 1.2.840.114 350.1.13.10 4.2.7.2.686 [id number] 2019-03-11 14:05:54 2019-03-11 16:45:00 Emergency Nikolas [facility] 1.2.840.114 350.1.13.10 4.2.7.2.686 [id number] [facility] 2019-03-11 14:05:54 2019-03-11 16:45:00 Emergency Nikolas [facility] 1.2.840.114 350.1.13.10 4.2.7.2.686 [id number] Results Test Description Test Time Test Comments Results Result Co mments Source [facility] WITH [id number] 21:53:23* Test Item Value Reference Range Interpretation [...] g/dL 31.6-35.1 H RDW-SD (test code = 19256-2) 42.1 fL 39.0-49.9 RDW-CV (test code = 788-0) 12.9 % 12.0-15.5 PLT (test code = 777-3) 274 See_Comment [Automated [employer]] The system which generated this result transmitted reference range: 166 - 358 10*3/?L. The reference range was not used to interpret this result as normal/abnormal. MPV (test code = 30111-4) 10.4 fL 9.5-12.9 NRBC/100 WBC (test code = 9188091868) 0.0 See_Comment [Automated [employer] ssage] The system which generated this result transmitted reference range: 0.0 - 10.0 /100 WBCs. The reference range was not used to interpret this result as normal/abnormal. NRBC x10^3 (test code = 2250797422) See_Comment [Automated [employer]] The system which generated this result transmitted reference range: 10*3/?L. The reference range was not used to interpret this result as normal/abnormal. GRAN MAT (NEUT) % (test code = 770-8) 52.0 % IMM GRAN % (test code = 9554271784) 0.50 % LYMPH % (test code = 736-9) 34.2 % MONO % (test code = 5905-5) 6.8 % EOS % (test code = 713-8) 6.2 % BASO % (test code = 706-2) 0.3 % GRAN MAT x10^3(ANC) (test code = 3728347013) 3.46 10*3/uL 1.88-7.09 IMM GRAN x10^3 (test code = 2309645330) 0.03 10*3/uL 0.00-0.06 LYMPH x10^3 (test code = 731-0) 2.27 10*3/uL 1.32-3.29 MONO x10^3 (test code = 742-7) 0.45 10*3/uL 0.33-0.92 EOS x10^3 (test code = 711-2) 0.41 10*3/uL 0.03-0.39 H BASO x10^3 (test code = 704-7) 0.01-0.07 Lab Interpretation (test code = 51612-2) Abnormal [facility] MOLECULAR [id number] 16:02:31* Test Item Value Reference Range Interpretation Comme nts POCT Molecular FluA (test co de = 62157-6) Negative Negative POCT Molecular FluB (test co de = 57126-1) Negative Negative Lab Interpretation (test cod e = 91888-9) Normal [facility] SARS-COV-2 ANTIGEN (BINAX NOW)2022-08-24 15:52:00* Test Item Value Reference Range Interpretation Comme nts POCT SARS-COV-2 ANTIGEN (alfa t code = 76676-8) Not Detected Not Detected On board controls acceptable with C Line (test code = 3574) Yes Lab Interpretation (test cod e = 01441-7) Normal [facility]. METABOLIC PANEL (99417)2021-06-29 23:10:56* Test Item Value Reference Range Interpretation Comme nts NA (test code = 6004054274) 137 mmol/L 135-145 K (test code = 2070446948) 3.9 mmol/L 3.5-5.0 CL (test code = 8202920197) 102 mmol/L 98-108 CO2 TOTAL (test code = 5179494489) 27 mmol/L 23-31 AGAP (test code = 8413565575) 2-16 BUN (test code = 2402624918) 10 mg/dL 7-23 GLUCOSE (test code = 3045932454) 137 mg/dL 70-110 H CREATININE (test code = 6483819549) 0.69 mg/dL 0.50-1.04 TOTAL BILI (test code = 6078690916) 0.5 mg/dL 0.1-1.1 CALCIUM (test code = 6139784116) 9.2 mg/dL 8.6-10.6 T PROTEIN (test code = 2699635521) 7.7 g/dL 6.3-8.2 ALBUMIN (test code = 7148515880) 4.9 g/dL 3.5-5.0 ALK PHOS (test code = 2313337715) 73 U/L 34-122 ALTv (test code = 1742-6) 15 U/L 5-35 AST(SGOT) (test code = 3412749899) 21 U/L 13-40 eGFR (test code = 9578753929) mL/min/1.73m2 MADISYN (test code = MADISYN) Association [...] imaging tests). Lab Interpretation (test code = 70120-3) [id number] 22:59:27* Test Item Value Reference Range Interpretation Comments TROPONIN I (test code = 8322026346) 0.001 ng/mL See_Comment [Automated message] The system [...] of biotin. Lab Interpretation (test code = 53586-2) [facility] 22:49:29* Test Item Value Reference Range Interpretation Comme nts LIPASE (test code = 2554026138) 57 U/L 0-220 Lab Interpretation (test cod e = 99774-0) [facility] [id number] 22:29:28* Test Item Value Reference Range Interpretation Comme nts WBC (test code = 6690-2) See_Comment [Automated [employer]] The system which generated this result transmitted reference range: 4.30 - 11.10 10*3/?L. The reference range was not used to interpret this result as normal/abnormal. RBC (test code = 789-8) See_Comment L [Automated [employer]] The system which generated this result [...] 34.2 g/dL 31.6-35.1 RDW-SD (test code = 91525-8) 43.4 fL 39.0-49.9 RDW-CV (test code = 788-0) 12.7 % 12.0-15.5 PLT (test code = 777-3) See_Comment [Automated messa ge] The system which generated this result transmitted reference range: 166 - 358 10*3/?L. The reference range was not used to interpret this result as normal/abnormal. MPV (test code = 91010-7) 10.7 fL 9.5-12.9 NRBC/100 WBC (test code = 5212258995) See_Comment [Automated [employer]age] The system which generated this result transmitted reference range: 0.0 - 10.0 /100 WBCs. The reference range was not used to interpret this result as normal/abnormal. NRBC x10^3 (test code = 5193599747) <0.01 See_Comment [Automated messa ge] The system which generated this result transmitted reference range: 10*3/?L. The reference range was not used to interpret this result as normal/abnormal. GRAN MAT (NEUT) % (test code = 770-8) 68.6 % IMM GRAN % (test code = 6044992010) 0.40 % LYMPH % (test code = 736-9) 22.9 % MONO % (test code = 5905-5) 6.3 % EOS % (test code = 713-8) 1.6 % BASO % (test code = 706-2) 0.2 % GRAN MAT x10^3(ANC) (test code = 4264111799) 6.89 10*3/uL 1.88-7.09 IMM GRAN x10^3 (test code = 7939228886) 0.04 10*3/uL 0.00-0.06 LYMPH x10^3 (test code = 731-0) 2.30 10*3/uL 1.32-3.29 MONO x10^3 (test code = 742-7) 0.63 10*3/uL 0.33-0.92 EOS x10^3 (test code = 711-2) 0.16 10*3/uL 0.03-0.39 BASO x10^3 (test code = 704-7) <0.03 0.01-0.07 Lab Interpretation (test code = 92383-1) [facility]2021-05-20 17:33:00* Test Item Value Reference Range Interpretation Comme [facility] POCT GLU (test code = 1655729107) 80 mg/dL 70-110 Lab Interpretation (test cod e = 38924-4) [id number] 12:36:17* Test Item Value Reference Range Interpretation Comments TROPONIN I (test code = 2736508269) 0.002 ng/mL See_Comment [Automated message] The system [...] of biotin. Lab Interpretation (test code = 24149-6) Normal [facility] Metabolic Panel (NA, K, CL, CO2, GLUCOSE, BUN, CREATININE, CA)2021-05-20 12:31:20* Test Item Value Reference Range Interpretation Comme [facility] NA (test code = 3937356803) 138 mmol/L 135-145 K (test code = 4408574379) 4.2 mmol/L 3.5-5.0 CL (test code = 2212610020) 106 mmol/L 98-108 CO2 TOTAL (test code = 8384724161) 25 mmol/L 23-31 AGAP (test code = 3862065723) 2-16 BUN (test code = 3535402312) 12 mg/dL 7-23 GLUCOSE (test code = 2621451213) 146 mg/dL 70-110 H CREATININE (test code = 7979238118) 0.62 mg/dL 0.50-1.04 CALCIUM (test code = 3937797049) 10.0 mg/dL 8.6-10.6 eGFR (test code = 0314747192) mL/min/1.73m2 MADISYN (test code = MADISYN) Association [...] imaging tests). Lab Interpretation (test code = 03215-4) Abnormal [facility] with [id number] 11:49:32* Test Item Value Reference Range Interpretation Comme nts WBC (test code = 6690-2) See_Comment [Automated [employer]] The system which generated this result transmitted reference range: 4.30 - 11.10 10*3/?L. The reference range was not used to interpret this result as normal/abnormal. RBC (test code = 789-8) See_Comment L [Automated [employer]] The system which generated this result [...] 34.6 g/dL 31.6-35.1 RDW-SD (test code = 32198-5) 40.3 fL 39.0-49.9 RDW-CV (test code = 788-0) 11.9 % 12.0-15.5 L PLT (test code = 777-3) See_Comment [Automated [employer]] The system which generated this result transmitted reference range: 166 - 358 10*3/?L. The reference range was not used to interpret this result as normal/abnormal. MPV (test code = 30384-8) 11.3 fL 9.5-12.9 NRBC/100 WBC (test code = [id number]) See_Comment [Automated [employer]] The system which generated this result transmitted reference range: 0.0 - 10.0 /100 WBCs. The reference range was not used to interpret this result as normal/abnormal. NRBC x10^3 (test code = [id number]) <0.01 See_Comment [[facility]ated [facility]] The system which generated this result transmitted reference range: 10*3/?L. The reference range was not used to interpret this result as normal/abnormal. GRAN MAT (NEUT) % (test code = 770-8) 59.9 % IMM GRAN % (test code = [id number]) 0.50 % LYMPH % (test code = 736-9) 30.0 % MONO % (test code = 5905-5) 6.4 % EOS % (test code = 713-8) 2.9 % BASO % (test code = 706-2) 0.3 % GRAN MAT x10^3(ANC) (test code = [id number]) 3.72 10*3/uL 1.88-7.09 IMM GRAN x10^3 (test code = [id number]) 0.03 10*3/uL 0.00-0.06 LYMPH x10^3 (test code = 731-0) 1.86 10*3/uL 1.32-3.29 MONO x10^3 (test code = 742-7) 0.40 10*3/uL 0.33-0.92 EOS x10^3 (test code = 711-2) 0.18 10*3/uL 0.03-0.39 BASO x10^3 (test code = 704-7) <0.03 0.01-0.07 Lab Interpretation (test code = 93745-9) [facility] [id number] 02:24:28* Test Item Value Reference Range Interpretation Comments TROPONIN I (test code = 5161087701) 0.003 ng/mL See_Comment [Automated message] The system [...] of biotin. Lab Interpretation (test code = 57551-8) [facility]25:00* Test Item Value Reference Range Interpretation Comme nts MAGNESIUM (test code = 8843256035) 1.9 mg/dL 1.7-2.4 Lab Interpretation (test cod e = 30903-4) [facility] [id number] 00:20:03* Test Item Value Reference Range Interpretation Comments TROPONIN I (test code = 5164386505) 0.002 ng/mL See_Comment [Automated message] The system [...] of biotin. Lab Interpretation (test code = 79959-5) [facility]OL[facility] PAN[facility] (33689)2021-05-20 00:09:00* Test Item Value Reference Range Interpretation Comme nts NA (test code = 9149325289) 139 mmol/L 135-145 K (test code = 7245802931) 3.9 mmol/L 3.5-5.0 CL (test code = 1471568736) 101 mmol/L 98-108 CO2 TOTAL (test code = 8550135417) 28 mmol/L 23-31 AGAP (test code = 9162176034) 2-16 BUN (test code = 8090973762) 13 mg/dL 7-23 GLUCOSE (test code = 6951046572) 143 mg/dL 70-110 H CREATININE (test code = 2426549595) 0.68 mg/dL 0.50-1.04 TOTAL BILI (test code = 5878685671) 0.4 mg/dL 0.1-1.1 CALCIUM (test code = 1673800748) 10.4 mg/dL 8.6-10.6 T PROTEIN (test code = 1671865997) 8.0 g/dL 6.3-8.2 ALBUMIN (test code = 5775384245) 5.0 g/dL 3.5-5.0 ALK PHOS (test code = 9681831061) 93 U/L 34-122 ALTv (test code = 1742-6) 21 U/L 5-35 AST(SGOT) (test code = 4775467218) 31 U/L 13-40 eGFR (test code = 7291531968) mL/min/1.73m2 MADISYN (test code = MADISYN) Association [...] imaging tests). Lab Interpretation (test code = 04077-0) [facility] 00:08:20* Test Item Value Reference Range Interpretation Comme nts LIPASE (test code = 8926477429) 66 U/L 0-220 Lab Interpretation (test cod e = 92483-2) [facility]21-[facility]14 00:06:19* Test Item Value Reference Range Interpretation Comme [facility] APTT Patient (test code = 3173-2) See_Comment [Automated message] The system which generated this result transmitted reference range: 23 - 38 Seconds. The reference range was not used to interpret this result as normal/abnormal. MADISYN (test code = MADISYN) The [facility] patient population mean normal value for aPTT is 30 seconds. Lab Interpretation (test code = 15126-1) Normal [facility] / [id number] 00:04:19* Test Item Value Reference Range Interpretation Comme [facility] PROTIME PATIENT (test code = 5964-2) See_Comment [Automated [employer]] The system which generated this result transmitted reference range: 12.0 - 14.7 Seconds. The reference range was not used to interpret this result as normal/abnormal. INR (test code = 6301-6) Normal INR <1.1; Warfarin Therapeutic range 2.0 to 3.0 or 2.5 to 3.5, depending upon the indications. Lab Interpretation (test code = 59268-3) [facility] WITH [id number] 23:55:39* Test Item Value Reference Range Interpretation Comme [facility] WBC (test code = 6690-2) See_Comment [Automated [employer]] The system which generated this result transmitted reference range: 4.30 - 11.10 10*3/?L. The reference range was not used to interpret this result as normal/abnormal. RBC (test code = 789-8) See_Comment [Automated [facility] [employer] [employer]] The system which generated this result transmitted [...] 34.6 g/dL 31.6-35.1 RDW-SD (test code = 18889-6) 40.4 fL 39.0-49.9 RDW-CV (test code = 788-0) 11.9 % 12.0-15.5 L PLT (test code = 777-3) See_Comment [Automated messa ge] The system which generated this result transmitted reference range: 166 - 358 10*3/?L. The reference range was not used to interpret this result as normal/abnormal. MPV (test code = 20778-3) 11.0 fL 9.5-12.9 NRBC/100 WBC (test code = 0893293247) See_Comment [Automated [employer] ssage] The system which generated this result transmitted reference range: 0.0 - 10.0 /100 WBCs. The reference range was not used to interpret this result as normal/abnormal. NRBC x10^3 (test code = 2750064253) <0.01 See_Comment [Automated messa ge] The system which generated this result transmitted reference range: 10*3/?L. The reference range was not used to interpret this result as normal/abnormal. GRAN MAT (NEUT) % (test code = 770-8) 53.4 % IMM GRAN % (test code = 6959384962) 0.60 % LYMPH % (test code = 736-9) 36.2 % MONO % (test code = 5905-5) 6.4 % EOS % (test code = 713-8) 3.3 % BASO % (test code = 706-2) 0.1 % GRAN MAT x10^3(ANC) (test code = 0705614846) 3.58 10*3/uL 1.88-7.09 IMM GRAN x10^3 (test code = 5948172389) 0.04 10*3/uL 0.00-0.06 LYMPH x10^3 (test code = 731-0) 2.43 10*3/uL 1.32-3.29 MONO x10^3 (test code = 742-7) 0.43 10*3/uL 0.33-0.92 EOS x10^3 (test code = 711-2) 0.22 10*3/uL 0.03-0.39 BASO x10^3 (test code = 704-7) <0.03 0.01-0.07 Lab Interpretation (test code = 75637-0) [facility]inalysis2021-[facility] 03:27:11* Test Item Value Reference Range Interpretation Comme nts APPEARANCE (test code = 3177165956) Clear Clear COLOR (test code = 5885949517) Straw Yellow A PH (test code = 5416460066) 4.8-8.0 SP GRAVITY (test code = 3350636081) 1.003-1.030 GLU U QUAL (test code = 3273658859) 500 mg/dL Normal A BLOOD (test code = 5073340054) Negative Negative KETONES (test code = 6480038097) Negative Negative PROTEIN (test code = 2887-8) Negative Negative UROBILIN (test code = 5427032448) Normal Normal BILIRUBIN (test code = 1650855513) Negative Negative NITRITE (test code = 0419998830) Negative Negative LEUK KEVEN (test code = 4741415129) 25/uL Negative A RBC/HPF (test code = 2606072067) See_Comment [Automated [employer]] The system which generated this result transmitted reference range: 0 - 3 HPF. The reference range was not used to interpret this result as normal/abnormal. WBC/HPF (test code = 7607263557) See_Comment [Automated [employer]] The system which generated this result transmitted reference range: 0 - 5 HPF. The reference range was not used to interpret this result as normal/abnormal. BACTERIA (test code = 1080123202) Negative Negative MUCOUS (test code = 9729403579) Slight Negative LPF A SQ EPITH (test code = 4611721280) HPF Lab Interpretation (test code = 61671-1) [facility]normal [facility] HospitalTroponin [id number] 03:00:28* Test Item Value Reference Range Interpretation Comme nts TROPONIN I (test code = 5444459269) <0.012 See_Comment [Automated message] The system which generated this result transmitted reference range: <=0.034 ng/mL. The reference range was not used to interpret this result as normal/abnormal. AMDISYN (test code = MADISYN) Equal or Less [...] biotin. ? Lab Interpretation (test code = 05947-2) Normal [facility] HospitalN-TERMINAL TWL-QIW1810-43-11 02:57:10* Test Item Value Reference Range Interpretation Comme nts NT-proBNP (test code = 2536781409) 25 pg/mL See_Comment [Automated message] The system which generated this result transmitted reference range: <=125. The reference range was not used to interpret this result as normal/abnormal. MADISYN (test code = MADISYN) Biotin has been reported to cause a negative bias, interpret results relative to patient's use of biotin. Lab Interpretation (test code = 16236-7) Normal [facility] HospitalBasi Metabolic Panel (NA, K, CL, CO2, GLUCOSE, BUN, CREATININE, CA)2020-09-14 02:48:49* Test Item Value Reference Range Interpretation Comme nts NA (test code = 9743540773) 135 mmol/L 135-145 K (test code = 6941318801) 3.6 mmol/L 3.5-5.0 CL (test code = 3316442669) 101 mmol/L 98-108 CO2 TOTAL (test code = 8302997859) 23 mmol/L 23-31 AGAP (test code = 5254652610) 2-16 BUN (test code = 8602387703) 10 mg/dL 7-23 GLUCOSE (test code = 9852615673) 296 mg/dL 70-110 H CREATININE (test code = 0174137024) 0.62 mg/dL 0.50-1.04 CALCIUM (test code = 2691402833) 9.7 mg/dL 8.6-10.6 eGFR Calculation (Non-) (test code = 1516364362) mL/min/1.73m2 eGFR Calculation () (test code = 8875032514) mL/min/1.73m2 MADISYN (test code = MADISYN) Association [...] imaging tests). Lab Interpretation (test code = 83337-5) [facility] Panel (ALB, T.PRO, BILI T, BU/BC, ALT, AST, ALK PHOS)2020-09-14 02:48:48* Test Item Value Reference Range Interpretation Comme nts TOTAL BILI (test code = 1826761397) 0.4 mg/dL 0.1-1.1 BILI UNCON (test code = 8676259988) 0.4 mg/dL 0.1-1.1 BILI CONJ (test code = 3942611955) 0.0 mg/dL 0.0-0.3 T PROTEIN (test code = 0071884765) 7.7 g/dL 6.3-8.2 ALBUMIN (test code = 0120625363) 5.0 g/dL 3.5-5.0 ALK PHOS (test code = 1386339843) 78 U/L 34-122 ALTv (test code = 1742-6) 19 U/L 5-35 AST(SGOT) (test code = 9270255182) 25 U/L 13-40 Lab Interpretation (test cod e = 67824-6) [facility] HospitalLipase Chuec9380-24-24 02:48:48* Test Item Value Reference Range Interpretation Comme nts LIPASE (test code = 9001108866) 38 U/L 0-220 Lab Interpretation (test cod e = 39756-0) [facility]OVID[facility] (ID NOW RAPID TESTING)2020-09-14 02:36:29* Test Item Value Reference Range Interpretation Comme nts SARS-CoV-2 Rapid ID NOW (test code = 04484-6) Positive Not Detected A MADISYN (test code = MADISYN) ID NOW COVID-19 As say is an isothermal nucleic acid amplification test intended for the qualitative detection of nucleic acid from SARS-CoV-2 viral RNA in nasopharyngeal (STRIPER MACHINE) specimens. It is used under Emergency Use [...] clinically indicated. Lab Interpretation (test code = 44210-6) [facility]normal [facility]CBC with Swffyndtcdxb8232-70-00 02:30:06* Test Item Value Reference Range Interpretation Comme nts WBC (test code = 6690-2) See_Comment [Automated [employer]] The system which generated this result transmitted reference range: 4.30 - 11.10 10*3/?L. The reference range was not used to interpret this result as normal/abnormal. RBC (test code = 789-8) See_Comment [Automated [employer]] The system which generated this result [...] 34.5 g/dL 31.6-35.1 RDW-SD (test code = 97229-3) 41.8 fL 39.0-49.9 RDW-CV (test code = 788-0) 12.8 % 12.0-15.5 PLT (test code = 777-3) See_Comment [Automated [employer]] The system which generated this result transmitted reference range: 166 - 358 10*3/?L. The reference range was not used to interpret this result as normal/abnormal. MPV (test code = 04624-6) 11.2 fL 9.5-12.9 NRBC/100 WBC (test code = 0179697850) See_Comment [Automated me ssage] The system which generated this result transmitted reference range: 0.0 - 10.0 /100 WBCs. The reference range was not used to interpret this result as normal/abnormal. NRBC x10^3 (test code = 0783091027) <0.01 See_Comment [Automated me ssage] The system which generated this result transmitted reference range: 10*3/?L. The reference range was not used to interpret this result as normal/abnormal. GRAN MAT (NEUT) % (test code = 770-8) 54.0 % IMM GRAN % (test code = 1223760853) 0.70 % LYMPH % (test code = 736-9) 36.2 % MONO % (test code = 5905-5) 6.0 % EOS % (test code = 713-8) 2.8 % BASO % (test code = 706-2) 0.3 % GRAN MAT x10^3(ANC) (test code = 0766465883) 3.13 10*3/uL 1.88-7.09 IMM GRAN x10^3 (test code = 4321197661) 0.04 10*3/uL 0.00-0.06 LYMPH x10^3 (test code = 731-0) 2.10 10*3/uL 1.32-3.29 MONO x10^3 (test code = 742-7) 0.35 10*3/uL 0.33-0.92 EOS x10^3 (test code = 711-2) 0.16 10*3/uL 0.03-0.39 BASO x10^3 (test code = 704-7) <0.03 0.01-0.07 [facility] WITH VZRYXUSYXZHK9715-37-46 01:35:00* Test Item Value Reference Range Interpretation Comme nts WBC (test code = 6690-2) See_Comment [Automated [employer]] The system which generated this result transmitted reference range: 4.30 - 11.10 10*3/?L. The reference range was not used to interpret this result as normal/abnormal. RBC (test code = 789-8) See_Comment [Automated [employer]] The system which generated this result [...] 34.7 g/dL 31.6-35.1 RDW-SD (test code = 95594-1) 40.8 fL 39-49.9 RDW-CV (test code = 788-0) 12.5 % 12-15.5 PLT (test code = 777-3) See_Comment [Automated [employer]] The system which generated this result transmitted reference range: 166 - 358 10*3/?L. The reference range was not used to interpret this result as normal/abnormal. MPV (test code = 63373-2) 11.0 fL 9.5-12.9 IPF % (test code = 3237738880) 5.7 % 1.3-7.7 Platelet count measured by fluorescence method. NRBC/100 WBC (test code = 8157515567) See_Comment [Automated [employer] ssage] The system which generated this result transmitted reference range: 0.0 - 10.0 /100 WBCs. The reference range was not used to interpret this result as normal/abnormal. NRBC x10^3 (test code = 2770099480) <0.01 See_Comment [Automated [employer]] The system which generated this result transmitted reference range: 10*3/?L. The reference range was not used to interpret this result as normal/abnormal. GRAN MAT (NEUT) % (test code = 770-8) 60.2 % IMM GRAN % (test code = 7317911584) 1.60 % LYMPH % (test code = 736-9) 29.4 % MONO % (test code = 5905-5) 6.2 % EOS % (test code = 713-8) 2.3 % BASO % (test code = 706-2) 0.3 % GRAN MAT x10^3(ANC) (test code = 6847917669) 5.31 10*3/uL 1.88-7.09 IMM GRAN x10^3 (test code = 2877438016) 0.14 10*3/uL 0-0.06 H LYMPH x10^3 (test code = 731-0) 2.59 10*3/uL 1.32-3.29 MONO x10^3 (test code = 742-7) 0.55 10*3/uL 0.33-0.92 EOS x10^3 (test code = 711-2) 0.20 10*3/uL 0.03-0.39 BASO x10^3 (test code = 704-7) 0.03 10*3/uL 0.01-0.07 Lab Interpretation (test code = 30778-7) [facility]AD,[facility] OR [facility] ONLY - INFLUENZA A & B DIRECT SHOPFYY3442-24-04 01:26:00* Test Item Value Reference Range Interpretation Comme nts Influenza A (test code = 03829-0) Negative Negative Influenza B (test code = 95882-1) Negative Negative Lab Interpretation (test cod e = 31469-9) Normal [facility] Metabolic Panel (NA, K, CL, CO2, GLUCOSE, BUN, CREATININE, CA)2019-07-28 01:21:00* Test Item Value Reference Range Interpretation Comme nts NA (test code = 4090508845) 137 mmol/L 135-145 K (test code = 9900062211) 3.8 mmol/L 3.5-5 CL (test code = 2668291206) 100 mmol/L 98-108 CO2 TOTAL (test code = 0333127410) 24 mmol/L 23-31 AGAP (test code = 6211427588) 2-16 BUN (test code = 1753396351) 13 mg/dL 7-23 GLUCOSE (test code = 2435907295) 245 mg/dL 70-110 H CREATININE (test code = 4937739956) 0.49 mg/dL 0.5-1.04 L CALCIUM (test code = 6790101099) 9.8 mg/dL 8.6-10.6 eGFR Calculation (Non-) (test code = 2024791682) mL/min/1.73m2 eGFR Calculation () (test code = 0290776031) mL/min/1.73m2 MADISYN (test code = MADISYN) Association [...] imaging tests). Lab Interpretation (test code = 81019-4) [facility] (ALB, T.PRO, BILI T, BU/BC, ALT, AST, ALK PHOS)2019-07-28 01:21:00* Test Item Value Reference Range Interpretation Comme nts TOTAL BILI (test code = 9642932223) 0.3 mg/dL 0.1-1.1 BILI UNCON (test code = 9510050115) 0.1 mg/dL 0.1-1.1 BILI CONJ (test code = 5947169623) 0.0 mg/dL 0-0.3 T PROTEIN (test code = 7325943348) 8.2 g/dL 6.3-8.2 ALBUMIN (test code = 5506721226) 5.0 g/dL 3.5-5 ALK PHOS (test code = 1823893256) 121 U/L 34-122 ALTv (test code = 1742-6) 33 U/L 5-35 AST(SGOT) (test code = 6498830912) 30 U/L 13-40 Lab Interpretation (test cod e = 85960-9) Normal [facility] HospitalRAPID STREP SCREEN FOR GROUP I4446-73-05 01:19:00* Test Item Value Reference Range Interpretation Comme nts Streptococcus pyogenes (grou p A) antigen (test code = 54700-9) Negative Negative Lab Interpretation (test cod e = 36652-9) [facility] HospitalXR CHEST 2 [id number] 00:53:20Impression: No acute cardiopulmonary changes. Small sized [...] this study and agree withthe above report.[facility] (NA, K, CL, CO2, GLUCOSE, BUN, CREATININE, CA)2019-03-11 20:52:00* Test Item Value Reference Range Interpretation Comme nts NA (test code = 3807195750) 141 mmol/L 135-145 K (test code = 8629048026) 3.6 mmol/L 3.5-5 CL (test code = 7059492989) 104 mmol/L 98-108 CO2 TOTAL (test code = 9835451925) 24 mmol/L 23-31 AGAP (test code = 5224872769) 2-16 BUN (test code = 9868983420) 19 mg/dL 7-23 GLUCOSE (test code = 2822906789) 161 mg/dL 70-110 H CREATININE (test code = 7188341694) 0.51 mg/dL 0.5-1.04 CALCIUM (test code = 6382469672) 9.4 mg/dL 8.6-10.6 eGFR Calculation (Non-) (test code = 1466387804) mL/min/1.73m2 eGFR Calculation () (test code = 4902424882) mL/min/1.73m2 MADISYN (test code = MADISYN) Association [...] imaging tests). Lab Interpretation (test code = 18224-8) [facility]normal [facility] (ALB, T.PRO, BILI T, BU/BC, ALT, AST, ALK PHOS)2019-03-11 20:52:00* Test Item Value Reference Range Interpretation Comme nts TOTAL BILI (test code = 2387908535) 0.6 mg/dL 0.1-1.1 BILI UNCON (test code = 9261934917) 0.5 mg/dL 0.1-1.1 BILI CONJ (test code = 9792061364) 0.0 mg/dL 0-0.3 T PROTEIN (test code = 3304135666) 7.7 g/dL 6.3-8.2 ALBUMIN (test code = 2173684857) 4.9 g/dL 3.5-5 ALK PHOS (test code = 3365265360) 61 U/L 34-122 ALT(SGPT) (test code = 6814154976) 26 U/L 9-51 AST(SGOT) (test code = 1569655673) 28 U/L 13-40 Lab Interpretation (test cod e = 72161-8) [facility] Hospital[facility] Sotgz1842-16-41 20:52:00* Test Item Value Reference Range Interpretation Comme [facility] LIPASE (test code = 3829825640) 22 U/L 0-220 Lab Interpretation (test cod e = 72243-6) Normal [facility] HospitalaPTT2019-09-05 20:40:00* Test Item Value Reference Range Interpretation Comme [facility] APTT Patient (test code = 3173-2) See_Comment L [Automated message] The system which generated this result transmitted reference range: 23 - 38 Seconds. The reference range was not used to interpret this result as normal/abnormal. MADISYN (test code = MADISYN) The [facility] patient population mean normal value for aPTT is 30 seconds. Lab Interpretation (test code = 36261-4) [facility]normal [facility] HospitalProthrombin Time (PT) / EPN5814-68-87 20:38:00 * Test Item Value Reference Range Interpretation Comme [facility] PROTIME PATIENT (test code = 5964-2) See_Comment [Automated [employer]] The system which generated this result transmitted reference range: 12.0 - 14.7 Seconds. The reference range was not used to interpret this result as normal/abnormal. INR (test code = 6301-6) Normal INR <1.1; Warfarin Therapeutic range 2.0 to 3.0 or 2.5 to 3.5, depending upon the indications. Lab Interpretation (test code = 48699-0) [facility] WITH RQWRXXKMPNVY4457-34-44 20:33:00* Test Item Value Reference Range Interpretation Comme [facility] WBC (test code = 6690-2) See_Comment [Automated [employer]] The system which generated this result [...] 34.0 g/dL 31.6-35.1 RDW-SD (test code = 36072-0) 44.3 fL 39-49.9 RDW-CV (test code = 788-0) 12.9 % 12-15.5 PLT (test code = 777-3) See_Comment [Automated messa ge] The system which generated this result transmitted reference range: 166 - 358 10*3/?L. The reference range was not used to interpret this result as normal/abnormal. MPV (test code = 12771-8) 10.9 fL 9.5-12.9 NRBC/100 WBC (test code = 8363108267) See_Comment [Automated [employer]] The system which generated this result transmitted reference range: 0.0 - 10.0 /100 WBCs. The reference range was not used to interpret this result as normal/abnormal. NRBC x10^3 (test code = 5992173505) <0.01 See_Comment [Automated messa ge] The system which generated this result transmitted reference range: 10*3/?L. The reference range was not used to interpret this result as normal/abnormal. GRAN MAT (NEUT) % (test code = 770-8) 86.3 % IMM GRAN % (test code = 8870588392) 0.50 % LYMPH % (test code = 736-9) 8.8 % MONO % (test code = 5905-5) 4.0 % EOS % (test code = 713-8) 0.2 % BASO % (test code = 706-2) 0.2 % GRAN MAT x10^3(ANC) (test code = 7696346031) 8.24 10*3/uL 1.88-7.09 H IMM GRAN x10^3 (test code = 5332008919) 0.05 10*3/uL 0-0.06 LYMPH x10^3 (test code = 731-0) 0.84 10*3/uL 1.32-3.29 L MONO x10^3 (test code = 742-7) 0.38 10*3/uL 0.33-0.92 EOS x10^3 (test code = 711-2) <0.03 0.03-0.39 L BASO x10^3 (test code = 704-7) <0.03 0.01-0.07 Lab Interpretation (test code = 17867-1) [facility] Notes Date/Time Note Provider Source 2024-01-06 16:12:27 [id number] Q6+dQLy6B+ROXGrGaTfv+oMP0wsYl/hlfQ2 3P1kE4528-45-74S60:12:27+ + + +--------- +| Health Maintenance | Due Date | Last Done | Comments |+ + +========= ==+ + | CT Colonography | 1959 | | |+ + +--------- --+ + | Colonoscopy | 1959 | | |+ + +--------- --+ + | Colorectal Cancer Screening | 1959 | | |+ + +--------- --+ + | FIT-DNA | 1959 | | |+ + +--------- --+ + | FIT | 1959 | | |+ + +--------- --+ + | FOBT | 1959 | | |+ + +--------- --+ + | Lipid Panel | 1959 | | |+ + +--------- --+ + | Medicare Initial Physical (IPPE) | 1959 | | |+ + +--------- --+ + | Sigmoidoscopy | 1959 | | |+ + +--------- --+ + | DTaP/Tdap/Td Vaccines (1 - Tdap) | 1978 | | |+ + +--------- --+ + | Pap Smear | 1980 | | |+ + +--------- --+ + | Cervical Cancer Screening | 1989 | | |+ + +--------- --+ + | HPV/Cotest | 1989 | | |+ + +--------- --+ + | Mammogram | 1999 | | |+ + +--------- --+ + | Zoster Vaccines (1 of 2) | 2009 | | |+ + +--------- --+ + | Respiratory Syncytial Virus (RSV) or >=60 (1 - 1-dose 60+ series) | 2019 | | |+ + +--------- --+ + | Influenza Vaccine (#1) | 03/07/2024 | | |+ + +--------- --+ + | HIB Vaccines | Aged Out | | No longer eligible based on patient's age to complete this topic |+ + +--------- --+ + | HPV Vaccines | Aged Out | | No longer eligible based on patient's age to complete this topic |+ + +--------- --+ + | Hepatitis A Vaccines | Aged Out | | No longer eligible based on patient's age to complete this topic |+ + +--------- --+ + | Hepatitis B Vaccines | Aged Out | | No longer eligible based on patient's age to complete this topic |+ + +--------- --+ + | IPV Vaccines | Aged Out | | No longer eligible based on patient's age to complete this topic |+ + +--------- --+ + | Meningococcal Vaccine | Aged Out | | No longer eligible based on patient's age to complete this topic |+ + +--------- --+ + | Pneumococcal Vaccine: Pediatrics (0 to 5 Years) and At-Risk Patients (6 to 64 | Aged Out | | No longer eligible based on patient's age to complete this topic || Years) | | | |+ + +--------- --+ + | Rotavirus Vaccines | Aged Out | | No longer eligible based on patient's age to complete this topic |+ + +--------- --+ + 21865-7Owhy of TreatmentLNPlan of TreatmentTXT1.2.840.484174.1.13.708 .[id number]|2.16.840.1.1 76374.10.20.22.2.10AVAvailable for patient zvdrKbfiqlcAwqfmvlnaVNSGm39 Section NarrativeNARRATIVEFormatted C-CDA narrative textMHIEEPICMemori[address] Ware [id number] PEOPLESDFSCFIEIBST0204-08-73F07:12:27 [facility] 2024-01-06 16:12:27 [id number]+Jorge+HHGg0eVw7af ZmaiUP4GdND6hsJMwZU2feGlTgVP+UtpDKk qhUUF4751-45-71D95:12:27+ +| Diagnosis |+ +| Abnormal foot finding - Primary |+ +17542-4WyqaqgnpfueFWQqlje YrnocsughTWS04965909-931M-7583-7163 -725P6BBV5269RMGzivnaccq for patient akmxKhcaqgvMtjbmhcutZJTUk74 Section NarrativeNARRATIVEFormatted C-CDA narrative textMHIEEPICMemomial [address] [id number] JAKIXZAAJMA1642-73-71C82:12:27 [facility] 2024-01-06 16:12:27 [id number] 5R19CUy5XqUZnMC7lggUmLZ09vaJbceqmEi kFInU7808-57-17A54:12:27+ + + + +- ---------+| Check Weigher | Relationship | Specialty | Start Date | End Date |+ +=== + +== + +| Rigo Bolton MD | PCP - General | Internal Medicine | 12/08/23 | || | | | | || | | | | || | | | | || [address] | | | | || | | | | || [place] [address] | | | | || | | | | || | | | | || | | | | || | | | | |+ +--- + +-- + +[id number] t Care team informationLNCare [id number] for patient gpvrEoqdlzfBvwozilqfIOVIj84 Section NarrativeNARRATIVEFormatted C-CDA narrative textMHIEEPICMemorimarianela [id number] PEOPLESMIMHQSJYNEZ4189-15-87U92:12:27 [facility] 2024-01-06 16:12:27 [id number] 2I6bP+1BqOQyg3x4YnIz1ajFr53q6Ap4DHD WKM7c9960-25-81E82:12:27 * Hiro Lawrence, BENNY - 12/08/2023 12:00 PM CDT History of Present Illness FRACTURE, LEFT 2nd TOE - resolved 12/08/2023 HAMMERTOE, BILATERAL 2ND TOE BUNION, LEFT > RIGHT - resolved 10/01/2023 NEUROMA, LEFT 2ND INTERMETATARSAL SPACE - resolved 09/17/2023 --- Patient states fracture is fully resolved and is very satisfied with treatment plan and results, left foot 2nd digit Patient denies pain, infection, injury, wounds 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 wearing regular shoe gear --- Patient returns for fracture evaluation, left foot 2nd digit Patient states symptoms continue to improve Patient states hammertoe deformity improving as fracture continues to heal Patient states of note that she has had multiple fractures in the past causing toe deformity, bilateral 2nd digit Patient states pain currently rated 0/10 at rest and 2/10 on palpation, left foot 2nd digit __- Patient states stable left foot 2nd digit fracture Patient states pain currently rated 2/10 on palpation, left 2nd digit __- Patient states she was walking barefoot at home, tripped on her animals pee-pad, causing rapid plantar flexion, left 2nd digit, October 05, 2023 Patient seen at local emergency room, provided x-rays, marley splint, postop shoe, crutches, advised to follow-up with specialist, October 05, 2023 Patient states pain currently rated 6/10 on palpation, left 2nd digit __- Patient states neuroma has improved with treatments and is very satisfied with treatment plan and results Patient states bunion and neuroma pains have previously resolved, patient now with pain with contracted hammertoes, bilateral 2nd digit Patient denies infection, injury, wounds Patient states pain currently rated 4/10 on palpation, bilateral 2nd digit __- Patient states painful bunion deformity for many years. Patient has tried multiple conservative treatments, but all do not seem to help. Patient has tried larger shoe gear, toe spacers, and over the counter orthotics. Patient requesting further more aggressive therapy Patient states pain graded 6/10 on palpation, bilateral 1st metatarsal phalangeal joint. Examination of the lower extremity Vascular (-) edema, LEFT 2nd digit (-) ecchymosis, (-) erythema Dorsal pedis pulse, bilateral - 2/4; Posterior tibial pulse, bilateral- 2/4 Capillary Refill time: within normal limits (-) varicosities, (+) pedal hair growth. Neurological (+) sensation with 5.07 Com[place] Scotty monofilament examination to the most distal lower extremity (-) tinel's sign (-) clonus present.. Dermatological (-) signs of soft tissue infection, (-) open wounds, (-) tenting of the skin (-) abscess (-) other primary or secondary lesions (+) normal temperature when compared to contralateral limb (+) normal color, tugor, and elasticity.. Musculoskeletal (-) pain on palpation or with range of motion, LEFT 2nd digit (+) hammertoes, BILATERAL rigid contracture (-) hammertoe lateral angular deformity, within the hallux digit proximal phalanx (-) pain on palpation to the medial aspect of the 1st metatarsal head. (-) crepitation, bilateral ( previously bilateral 1st metatarsal phalangeal joint) (+) hypermobile 1st ray (-) other pain on palpation or with range of motion, BILATERAL lower extremity (-) pain on palpation with and without resistance, specifically LEFT peroneal tendon (+) flexible pes planus foot type, bilateral 5/5 muscle strength to extrinsic pedal muscle groups (-) evidence of compartment syndrome, (-) evidence of deep vein thrombosis - X-RAYS LEFT FOOT 06/21/2023: (+) stress fracture, 3rd metatarsal (+) mild arthritis 2nd proximal interphalangeal joint (-) fracture, (-) dislocation (+) Mild-moderate plantar calcaneal spur __- X-RAYS BILATERAL FEET 09/23/2023: (+) ossification at previous stress fracture, LEFT 3rd metatarsal (+) mild arthritis 2nd proximal interphalangeal joint (-) fracture, (-) dislocation (+) Mild-moderate plantar calcaneal spur __- X-RAYS BILATERAL FEET 10/06/2023: (-) fracture (-) dislocation (+) ossification at previous stress fracture, LEFT 3rd metatarsal (+) mild arthritis 2nd proximal interphalangeal joint (+) Mild-moderate plantar calcaneal spur __- X-RAYS LEFT Foot 10/30/2023: (+) healing fracture 2nd digit proximal phalanx (-) dislocation (+) ossification at previous stress fracture, LEFT 3rd metatarsal (+) mild arthritis 2nd proximal interphalangeal joint (+) Mild-moderate plantar calcaneal spur __- MRI LEFT foot 07/17/2023: (+) Mild peroneal brevis tenosynovitis. Assessments FRACTURE, LEFT 2nd TOE Hammertoe, left 2nd digit --- BUNION, LEFT > RIGHT - resolved 10/01/2023 NEUROMA, LEFT 2ND INTERMETATARSAL SPACE - resolved 09/17/2023 Hammertoes, bilateral 2nd digit FRACTURE, LEFT 2ND DIGIT - resolved 08/11/2023 FRACTURE, LEFT 3RD METATARSAL STRESS - resolved 08/11/2023 PLANTAR FASCIITIS, LEFT - resolved 06/11/2023. Treatment - Extensive visit discussing possible pedal complications from fractures due to hammertoe deformities and multiple other comorbidities - fracture - no further treatment indicated - X-RAYS - reviewed - hammertoes - MUST USE CREST PAD, patient states possible complications with not wearing - bunion - no further acute treatment since no pain, continue wide toe box shoes - neuroma - resolved, no further treatment indicated, previously responded well to 08/11/2023 LEFT 1st intermetatarsal space, injection in a sterile fashion using 1 cc total 1:1 mix with 0.5% Marcaine plain and dexamethasone - tenosynovitis - asymptomatic, no treatment indicated, use boot as needed - plantar fasciitis - responded well to 05/19/2023 injection, LEFT plantar heel -----injection of 1.5cc in 1:1 mix of 1% lidocaine plain, 0.5% Marcaine plain, dexamethasone - strapping - responded well to 06/11/2023 to marley tape the 2nd digit to adjacent disease and stabilize the foot /ankle - MRI - reviewed - PAIN - well controlled with pwdg-xww-wfsjmwi, however patient previously seen by PAIN MANAGEMENT CONSULT continue previously prescribed 05/28 TYLENOL NO. 4 as needed, patient had previously denied NSAIDs and steroids (allergy), but satisfied with cazz-agb-fzivepg Tylenol - vascular - no further studies indicated however previously ordered 06/16/2023 since patient with palpable pedal pulses, no open wounds, no ischemic tissue - Orthotics - Discussed custom orthotics, patient would benefit from long-term arch support for functional and accommodative applications - Shoes - educated patient on appropriate shoe gear - weight-bearing - reduced in fracture boot as needed, dispensed 05/28/2023 Return 8 weeks for routine pedal eval Patient advised to report to the clinic or the emergency room immediately with any questions or concerns. Patient Instructions: Discussion: A detailed discussion was provided to the patient with specific reference to etiology, pathology, alternate treatment options, and prognosis. All risks and complications (including side effects) with each treatment/medication alternative were outlined in detail including but not limited to: Pain, swelling, numbness,loss of function, loss of limb, bleeding, hematoma, scarring, failure to relieve condition, surgery, additional/revisional surgery, reflex sympathetic dystrophy, complex regional pain syndrome, reoccurrence of deformity, joint stiffness, flail toe, bone and/or soft tissue infection, blood clots, pulmonary embolism, possible , delayed or non-healing. X-rays, graphs and drawings were all used to assist with patient comprehension when appropriate. All patients questions were answered and stated they fully understood. No guarantee as to results or outcome of treatment was made. I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
[2024-01-13] MEDS ORDERED: NA CHLORIDE 0.9% 1,000 ML ONE (11:43)
[2024-01-13 12:29] LABS: Hematocrit 28.7 % (36.0-45.0); Hemoglobin 9.7 g/dL (12.0-15.0); MCH 31.5 pg (27.0-35.0); MCHC 33.8 g/dL (32.0-36.0); MCV 93.1 fL (80-100); Platelets 221 thou/uL (152-406); RBC Red Blood Cell Count 3.09 M/uL (3.86-4.86)
[2024-01-13 12:30] LABS: Absolute Eosinophils 0.1 K/uL (0-0.5); Absolute Lymphocytes (CBC) 1.1 K/uL (0.7-4.9); Absolute Monocytes 0.4 K/uL (0.1-1.3); Basophils % 0.2 % (0-1.3); Eosinophils % 2.5 % (0-4.4); Lymphocytes % 23.2 % (15.3-44.8); MPV 9.2 fL (7.6-11.3); Neutrophils % 66.1 % (41.7-73.7); Red Cell Distribution Width 13.5 % (12.1-15.2)
[2024-01-13 12:44] LABS: Albumin 3.6 g/dL (3.4-5.0); Albumin/Globulin Ratio 1.4 (1.1-1.8); Alkaline Phosphatase 51 U/L (45-117); Anion Gap 7.3 mEq/L (5.0-15.0); BUN Blood Urea Nitrogen 12 mg/dL (7-18); Bicarbonate 26 mEq/L (21-32); Bilirubin Total 0.3 mg/dL (0.2-1.0); Creatine Phosphokinase 52 U/L (26-192); Globulin 2.5 g/dL (2.3-3.5); Glomerular Filtration Rate 62 ml/min (=/>90); Glucose Level 165 mg/dL (74-106); Potassium 3.3 mEq/L (3.5-5.1); Protein, Total 6.1 g/dL (6.4-8.2); Sodium Level 137 mEq/L (136-145)
[2024-01-13 12:45] LABS: ALT/SGPT < 14 U/L (13-56); AST/SGOT < 10 U/L (15-37)
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
--- NOTE | 2024-01-13 13:46 | EDPHYS ---
Physician Documentation [facility] Name: Dolores Pérez Age: 63 yrs Sex: Female : 1960 Arrival Date: 01/13/2024 Time: 11:17 Bed 20 Private MD: ED Physician Lam Yi HPI: 01/12 11:55 This 63 yrs old Female presents to ER via EMS with complaints of General Weakness. ms3 11:55 63-year-old female with past medical history of anxiety, asthma, COPD, depression, ms3 diabetes, hyperlipidemia, hypertension presents to the emergency department status post multiple falls and generalized weakness while picking up limbs in her yard. Patient denies pain. Patient denies any alleviating or inciting factors.. Historical: - Allergies: 11:23 Aspirin; kc6 11:23 grapes; kc6 11:23 NSAIDS; kc6 11:23 ORANGES; kc6 11:23 peanuts; kc6 11:23 Prednisone; kc6 11:23 sesame seed; kc6 11:23 Sulfa (Sulfonamide Antibiotics); kc6 - PMHx: 11:23 Anxiety; Asthma; COPD; depressive disorder; diabetes mellitus; High Cholesterol; kc6 Hypertension; Hypothyroidism; Transient cerebral ischemia; - Immunization history:: Adult Immunizations up to date. - Infectious Disease History:: Denies. - Social history:: Smoking status: Patient denies any tobacco usage or history of. ROS: 11:55 Constitutional: Negative for fever, and chills. Neck: Negative for injury, pain, and ms3 swelling, Cardiovascular: Negative for chest pain, and palpitations. Respiratory: Negative for shortness of breath, cough, wheezing, and pleuritic chest pain, Abdomen/GI: Negative for abdominal pain, nausea, vomiting, diarrhea, and constipation, MS/Extremity: Negative for injury and deformity, Skin: Negative for injury, rash, and discoloration, Exam: 11:55 Constitutional: This is a well developed, well nourished patient who is awake, alert, ms3 and in no acute distress. Head/Face: Normocephalic, atraumatic. Chest/axilla: Normal chest wall appearance and motion. Nontender with no deformity. Cardiovascular: Regular rate and rhythm with a normal S1 and S2. No gallops, murmurs, or rubs. Normal PMI, no JVD. No pulse deficits. Respiratory: Lungs have equal breath sounds bilaterally, clear to auscultation and percussion. No rales, rhonchi or wheezes noted. No increased work of breathing, no retractions or nasal flaring. Abdomen/GI: Soft, non-tender, with normal bowel sounds. No distension or tympany. No guarding or rebound. No evidence of tenderness throughout. Skin: Warm, dry with normal turgor. Normal color with no rashes, no lesions, and no evidence of cellulitis. MS/ Extremity: Pulses equal, no cyanosis. Neurovascular intact. Full, normal range of motion. 12:09 ECG was reviewed by the Attending Physician. ms3 Vital Signs: 11:21 BP 131 / 66; Pulse 74; Resp 17 S; Temp 97.2(O); Weight 52.16 kg (R); Height 5 ft. 6 in. kc6 (R); 12:34 BP 148 / 70; Pulse 64; Resp 15 S; Pulse Ox 97% on R/A; kc6 13:41 BP 141 / 66; kc6 11:21 Body Mass Index 18.56 (52.16 kg, 167.64 cm) kc6 MDM: 11:33 Patient medically screened. ms3 21:27 Differential Diagnosis Dehydration versus rhabdo versus heat exhaustion. Data reviewed: ms3 vital signs, nurses notes, lab test result(s), and as a result, I will discharge patient. Counseling: I had a detailed discussion with the patient and/or guardian regarding the historical points, exam findings, and any diagnostic results supporting the discharge/admit diagnosis, lab results, the need for outpatient follow up, to return to the emergency department if symptoms worsen or persist or if there are any questions or concerns that arise at home. Special discussion: I discussed with the patient/guardian in detail that at this point there is no indication for admission to the hospital. It is understood, however, that if the symptoms persist or worsen the patient needs to return immediately for re-evaluation. ED course: Discussed labs with patient. Patient to follow-up with her primary care physician in 2 to 3 days. Patient understands and agrees with plan. All questions were answered. Return precautions discussed include worsening symptoms, or any other concerns. On reevaluation patient symptoms improved, patient is alert and oriented x 4, no apparent distress, nontoxic-appearing, speaking full sentences. 01/12 11:36 Order name: CBC with Diff; Complete Time: 13:15 ms3 01/12 11:36 Order name: CMP; Complete Time: 13:15 ms3 01/12 11:36 Order name: CK; Complete Time: 13:15 ms3 01/12 11:36 Order name: EKG; Complete Time: 11:36 ms3 01/12 11:36 Order name: EKG - Nurse/Tech; Complete Time: 11:53 ms3 EC:09 Rate is 69 beats/min. Rhythm is regular. QRS [place] is Normal. OR interval is normal. ms3 Clinical impression: NSR w/ Non-specific ST/T Changes. Interpreted by me. Reviewed by me. Administered Medications: 11:47 Drug: NS 0.9% IV 1000 ml IV at 1 bolus Per protocol; 1000 mL bolus Route: IV; Rate: 1 zl bolus; Site: right antecubital; 12:24 Follow up: Response: No adverse reaction; IV Status: Completed infusion; IV Intake: kc6 1000ml 14:02 Drug: Potassium Chloride PO 40 mEq PO once Route: PO; kc6 14:08 Follow up: Response: No adverse reaction kc6 Disposition Summary: 01/13/24 13:45 Discharge Ordered Notes: Location: Home ms3 Condition: Stable ms3 Diagnosis - Heat exhaustion, unspecified ms3 - Hypokalemia ms3 - Anemia, unspecified ms3 - Essential (primary) hypertension ms3 Followup: ms3 - With: Raghav Levy DO - When: 2 - 3 days - Reason: Recheck today's complaints Discharge Instructions: - Discharge Summary Sheet ms3 - Anemia ms3 - Potassium Content of Foods ms3 - Hypertension, Adult ms3 - Heat Exhaustion ms3 - DASH Eating Plan ms3 Forms: - Medication Reconciliation Form ms3 - Antibiotic Education ms3 - Prescription Opioid Use ms3 - Patient Portal Instructions ms3 - Leadership Thank You Letter ms3 Signatures: Dispatcher [employer] Lam Purvis DO DO ms3 Danette Vicente, RN RN kc6 Juan Antonio Gee RN RN zl
[2024-01-13] MEDS ORDERED: POTASSIUM CL SA 10 MEQ TAB PO ONE (13:57)
[2024-01-13 14:23] VITALS: BP 141/66; TEMP 97.2; O2SAT 97
--- NOTE | 2024-01-14 12:12 | EKG ---
Test Date: 2024-01-13 Test Time: 11:43:54 Systems Project Manager: JOSEPH MEASUREMENT RESULTS: Intervals: Rate: 69 FL: 152 QRSD: 98 QT: 428 QTc: 458 [place]: P: 77 FL: 152 QRS: 56 T: 71 INTERPRETIVE STATEMENTS: Normal sinus rhythm Nonspecific ST abnormality Abnormal ECG Compared to ECG 07/12/2023 18:22:20 ST (T wave) deviation now present Electronically Signed On 01-14-24 12:10:20 CDT by Segun Pope
== END 2024-01-13 14:08 | disposition home or self-care (01) ==
LOC: ER 11:17
DX: T67.5XXA Heat exhaustion, unspecified, initial encounter (principal); E87.6 Hypokalemia; D64.9 Anemia, unspecified; I10 Essential (primary) hypertension; J44.9 Chronic obstructive pulmonary disease, unspecified; J45.909 Unspecified asthma, uncomplicated; E11.9 Type 2 diabetes mellitus without complications; E78.5 Hyperlipidemia, unspecified; F41.9 Anxiety disorder, unspecified; X30.XXXA Exposure to excessive natural heat, initial encounter; Y92.017 Garden or yard in single-family (private) house as the place of occurrence of the external cause; Z88.5 Allergy status to narcotic agent; Z88.2 Allergy status to sulfonamides; Z91.010 Allergy to peanuts; Z91.018 Allergy to other foods
CPT/HCPCS: 93005; 85025; 36415; 82550; 80053; 96360; 99284; J7030

== ENCOUNTER 2024-06-01 00:27 | Emergency (ER) | payer OTHER, MEDICARE ==
--- OUTSIDE RECORDS SUMMARY | 2024-06-01 00:33 | XMS REPORT | Continuity of Care Document ---
Author Name Unknown Address [address] [facility] [place] [address] [facility] Address 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 Name Role Phone Rigo Bolton MD Primary Care Physician [phone] Maile Granados MA Attending Clinician UnavailHiro Goodwin DPM Attending Clinician +- [phone] HIRO LAWRENCE Attending Clinician Unavail able Jw Paul MA Attending Clinician Unava ilable LIZZETH ELLIS Attending Clinician Unavailnoreen beth Omaghomalicia CEE Omayreinaldo Attending Clinician [phone] Unknown, Attending Attending Clinician Unavailab Neida Faye Attending Clinician Unavailable Neida Jiménez Attending Clinician [phone] Portia Rodriguez Attending Clinician [phone] PORTIA MORRISON Attending Clinician Unavailable Doctor Unassigned, [place] Attending Clinician U navailable Only, Ang Db Test Attending Clinician UnavailDonna Galdamez MD Attending Clinician [phone] DONNA CHARLES Attending Clinician Unavailable ALEX OCONNELL Attending Clinician UnavailAlex Schultz Attending Clinician +- [phone] SHERRILL CONNOR Attending Clinician Unavailable Sherrill Connor MD Attending Clinician [phone] CAMERON LIVINGSTON Attending Clinician Unavailable Cameron Nick Attending Clinician [phone] Jeremiah STANLEY, Nirmala Ballard Attending Clinician Unavailab DARIUS Sen Attending Clinician Unavailable Darius Barragan Attending Clinician [phone] AJ CASTANO Attending Clinician Unavailable Ebveronica HERNANDEZP, Aj Attending Clinician [phone] MARCELINA CHE Attending Clinician Unavailable Marcelina Che MD Attending Clinician [phone] MAYTE ISSA Attending Clinician Unavailable Lab, Adc Fam Pob I Attending Clinician Unavailab Mayte Alan Attending Clinician [phone] Diana Berg DO Attending Clinician [phone] Mariangel Miller Attending Clinician Neida DUGGAN Admitting Clinician Unavailable ALEX OCONNELL Admitting Clinician UnavailCAMERON Gibson Admitting Clinician Unavailable DARIUS LEDESMA Admitting Clinician Unavailable AJ CASTANO Admitting Clinician Unavailable MARCELINA CHE Admitting Clinician Unavailable Marcelina Che MD Admitting Clinician [phone] Payers Payer Name Policy Type Policy Number Effective Date Expirati on Date Source CIGNA II [id number] 2016 00:00:00 CIGNA COMM [id number] 2007 00:00:00 MEDICARE PART A AND B Medicare [id number] 2024 00:00:00 [employer] Other [id number] 2024 00:00:00 Problems Condition Name Condition Details Condition Category Status Onset Date Resolution Date Last Treatment Date Treating Clinician Comments Source Primary hypertensi on Primary hypertensi on Disease Active 2020-07 00:00: 00 [facility] Other hyperlipid emia Other hyperlipid emia Disease Active 2020-07 00:00: 00 [facility] History of arterial ischemic stroke History of arterial ischemic stroke Disease Active 2020-07 00:00: 00 [facility] Chest pain Chest pain Disease Active 2020-07 00:00: 00 [facility] Primary hypothyroi dism Primary hypothyroi dism Disease Active 4- 00:00: 00 [facility] Primary hypothyroi dism Primary hypothyroi dism Disease Active 4- 00:00: 00 [facility] Allergies, Adverse Reactions, Alerts Allergy Name Allergy Type Status Severity Reaction(s) Onset Date Inactive Date Treating Clinician Comments Source Grape (Artific ial) Flavor Propensi ty to adverse reaction s Active 03-22 00:00: 00 [facility] Gu[facility]man [facility] [place] (Diagnos tic) Propensi ty to adverse reaction s Active 03-22 00:00: 00 Virgilio Guzman [facility] Peanut-C ontainin g Drug Products Propensi ty to adverse reaction s Active 03-22 00:00: 00 Virgilio Guzman [facility] Predniso ne Propensi ty to adverse reaction s Active 03-22 00:00: 00 Virgilio Guzman [facility] Sulfa Antibiot ics Propensi ty to adverse reaction s Active 03-22 00:00: 00 Virgilio Guzman [facility] ALBA DRUG INGREDI Active Anaphylaxis 01-06 00:00: 00 [facility] [place] Propensi ty to adverse reaction s Active Anaphylaxis 01-06 00:00: 00 [facility] NAPROXEN SODIUM DRUG INGREDI Active Rash 2020-07 00:00: 00 [facility] METFORMI N DRUG INGREDI Active Diarrhea 2020-07 00:00: 00 [facility] Naproxen Sodium Propensi ty to adverse reaction s Active Rash 2020-07 00:00: 00 Able to take ibuprofen and asa [facility] Metformi n Propensi ty to adverse reaction s Active Diarrhea 2020-07 00:00: 00 [facility] SESAME Drug Class Active Anaphylaxis 905 00:00: 00 [facility] Sesame Propensi ty to adverse reaction s Active Anaphylaxis 2019-0 9-05 00:00: 00 [facility] PEANUT DRUG INGREDI Active Anaphylaxis 2017-07 0-06 00:00: 00 [facility] PREDNISO NE DRUG INGREDI Active Other-Cmnt 2017-07 0-06 00:00: 00 [facility] Peanut Propensi ty to adverse reaction s Active Anaphylaxis 2017-07 0-06 00:00: 00 [facility] Predniso ne Propensi ty to adverse reaction s Active Other - See comments 2017-07 0-06 00:00: 00 Leg cramps [facility] ASPIRIN DRUG INGREDI Active Unknown-Cmnt 0 4-10 00:00: 00 [facility] NSAIDS (NON-RYAN ROIDAL ANTI-INF LAMMATOR Y DRUG) Drug Class Active Hives 0 4-10 00:00: 00 [facility] SULFA (SULFONA MIDE ANTIBIOT ICS) Drug Class Active Rash 0 4-10 00:00: 00 [facility] Aspirin Propensi ty to adverse reaction s Active Rash 0 4-10 00:00: 00 [facility] Nsaids (Non-Ryan roidal Anti-Inf lammator y Drug) Propensi ty to adverse reaction s Active Hives 0 4-10 00:00: 00 [facility] Sulfa (Sulfona mide Antibiot ics) Propensi ty to adverse reaction s Active Rash 0 4-10 00:00: 00 [facility] Sulfa (Sulfona mide Antibiot ics) Propensi ty to adverse reaction s Active Rash 0 4-10 00:00: 00 [facility] ALLERGIE S NOT ON FILE SYSTEMIC Active MHEOUT ALLERGIE S NOT ON FILE SYSTEMIC Active MHEOUT ALLERGIE S NOT ON FILE SYSTEMIC Active MHEOUT ALLERGIE S NOT ON FILE SYSTEMIC Active MHEOUT ALLERGIE S NOT ON FILE SYSTEMIC Active MHEOUT ALLERGIE S NOT ON FILE SYSTEMIC Active MHEOUT ALLERGIE S NOT ON FILE SYSTEMIC Active MHEOUT ALLERGIE S NOT ON FILE SYSTEMIC Active MHEOUT ALLERGIE S NOT ON FILE SYSTEMIC Active [facility] [place] ALLERGIE S NOT ON FILE SYSTEMIC Active Virgilio lyon [facility] Social History Social Habit Start Date Stop Date Quantity Comments Source Gender identity 2023-09-28 14:25:40 Identifies as female gender (finding) [facility] Sexual orientation [facility] [place] [facility] History of Social function 2024-02-03 00:00:00 2024-02-03 00:00:00 [facility] Exposure to SARS-CoV-2 (event) 2022-08-14 00:00:00 2022-08-24 09:35:00 Not sure [facility] Tobacco use and exposure 2022-08-24 00:00:00 2022-08-24 00:00:00 Smokeless tobacco non-user [facility] Sex assigned at 1960 00:00:00 1960 00:00:00 [facility] Smoking Status Start Date Stop Date Source Tobacco smoking consumption unknown [facility] Never smoked tobacco [facility] Medications Ordered Medication Name Filled Medication Name Start Date Stop Date Current Medication? Ordering Clinician Indication Dosage Frequency Signature (SIG) Comments Components Source cephalexin (Keflex) 500 MG capsule cephalexin (Keflex) 500 MG capsule 03-22 00:00: 00 04-05 23:59 :00 No [id number] 500mg Q.5D Take 1 capsule by mouth in the morning and 1 capsule in the evening. Do all this for 14 days. Virgilio Love HYDROcodone -acetaminop hen (Busby) 10-325 MG tablet HYDROcodone -acetaminop hen (Busby) 10-325 MG tablet 03-22 00:00: 00 03-29 23:59 :00 No [id number] 1{tbl} Q6H Take 1 tablet by mouth every 6 hours if needed for severe pain (7-10) for up to 7 days. Only take if needed for foot pain after surgery Virgilio Love bromphenira mine-pseudo ephedrine-D M (BROMFED DM) 2-30-10 mg/5 mL syrup 08-24 00:00: 00 Yes [id number] 5mL Take 5 mL by mouth 4 (four) times daily as needed for Congestion /Allergies . [facility] benzonatate 100 mg capsule 01-06 00:00: 00 Yes [id number] 100mg Take 1 capsule by mouth 3 (three) times daily as needed for Cough. [facility] loratadine (CLARITIN) 10 mg tablet 01-06 00:00: 00 Yes [id number] 10mg Take 1 tablet by mouth at bedtime as needed for Allergies. [facility] benzonatate 100 mg capsule 08-07 00:00: 00 Yes [id number] 100mg Take 1 capsule by mouth 3 (three) times daily as needed for Cough. [facility] ampicillin- sulbactam (UNASYN) 3 g in NaCl 0.9% (NS) 100 mL MINI-BAG 2020-07 01:00: 00 06-30 00:47 :00 No 3g 3 g, IV Piggyback, ONCE, 1 dose, On Fri06/29/21 at 1900, Administer over 30 Minutes, 100 mL
Reas on for Anti-Infec tive: Documented Infection< br>Documen zoila Infection Site: Abdominal< br>Duratio n of Therapy: Other (see Comments) [facility] iopamidol (ISOVUE 370-500 mL) injection 120 mL 2020-07 00:15: 00 06-29 23:08 :00 No [id number] 120mL 120 mL, Intravenou s, ONCE, 1 dose, On Fri06/29/21 at 1815, Routine [facility] amoxicillin -clavulanat e 875-125 mg per tablet 2020-07 00:00: 00 07-10 05:59 :00 No [id number] 1{tbl} Take 1 tablet by mouth every 12 (twelve) hours for 10 days. [facility] traMADoL 50 mg tablet 2020-07 00:00: 00 07-05 05:59 :00 No [id number] 50mg Take 1 tablet by mouth every 6 (six) hours for 5 days. Indication s: acute pain [facility] ondansetron 4 mg tablet 2020-07 2-24 00:00: 00 07-05 05:59 :00 No [id number] 4mg Take 1 tablet by mouth every 8 (eight) hours for 5 days. [facility] atorvastati n (LIPITOR) tablet 10 mg 2020-07 03:00: 00 Yes 10mg 10 mg, Oral, QHS, First dose on 05/20/21 at 2100, Until Discontinu ed, Routine [facility] atorvastati n 10 mg tablet 2020-07 17:23: 01 Yes 10mg Take 10 mg by mouth at bedtime. [facility] spironolact one 25 mg tablet 2020-07 17:23: 01 Yes 25mg Take 25 mg by mouth 2 (two) times daily. [facility] pantoprazol e sodium (PANTOPRAZO LE ORAL) 2020-07 17:23: 01 Yes 40mg Take 40 mg by mouth daily. [facility] magnesium gluconate 200 mg tablet 2020-07 17:23: 01 Yes 200mg Take 200 mg by mouth daily. At night as per pt [facility] metformin HCl (METFORMIN ORAL) 2020-07 17:23: 01 Yes 500mg Take 500 mg by mouth at bedtime. [facility] magnesium gluconate 200 mg tablet 2020-07 17:23: 01 Yes 200mg Take 200 mg by mouth daily. At night as per pt [facility] enoxaparin (LOVENOX) injection 40 mg 2020-07 15:00: 00 Yes 40mg 40 mg, Subcutaneo us, DAILY, First dose on 05/20/21 at 0900, Until Discontinu ed, Routine [facility] clopidogreL (PLAVIX) tablet 75 mg 2020-07 15:00: 00 Yes 75mg 75 mg, Oral, QAM, First dose on 05/20/21 at 0900, Until Discontinu ed, Routine [facility] ALPRAZolam (XANAX) tablet 0.5 mg 2020-07 15:00: 00 Yes .5mg 0.5 mg, Oral, DAILY, First dose on 05/20/21 at 0900, Until Discontinu ed, Routine [facility] spironolact one (ALDACTONE) tablet 25 mg 2020-07 14:00: 00 Yes 25mg 25 mg, Oral, BID, First dose on 05/20/21 at 0800, Until Discontinu ed, Routine [facility] Sliding Scale Insulin-Reg ular + Fsbg Testing 2020-07 13:30: 00 Yes Subcutaneo us, AC, First dose on 05/20/21 at 0730, Until Discontinu ed, Routine [facility] levothyroxi ne (SYNTHROID) tablet 100 mcg 2020-07 12:00: 00 Yes 100ug 100 mcg, Oral, QAM-0600, First dose on 05/20/21 at 0600, Until Discontinu ed, Routine [facility] pantoprazol e (PROTONIX) EC tablet 40 mg 2020-07 06:30: 00 Yes 40mg 40 mg, Oral, DAILY, First dose (after last modificati on) on 05/20/21 at 0030, Until Discontinu ed [facility] cyclobenzap rine (FLEXERIL) tablet 10 mg 2020-07 06:12: 13 Yes 10mg 10 mg, Oral, TIDPRN, Starting on 05/20/21 at 0012, Until Discontinu ed, Routine, Muscle Spasms, leg pain [facility] polyethylen e glycol 3350 powder 17 g 2020-07 06:04: 16 Yes 17g 17 g, Oral, [id number], Starting on 05/20/21 at 0004, Until Discontinu ed, Routine, Constipati on [facility] glucagon (GLUCAGEN DIAGNOSTIC KIT) injection 1 mg 2020-07 05:29: 29 Yes 1mg 1 mg, Intramuscu lar, PRN, Starting on 05/19/21 at 2329, Until Discontinu ed, JEFFREY, Blood Glucose < or = 70 mg/dL and patient is unable to swallow or has mental changes. [facility] dextrose 50 % in water (D50W) injection 25 mL 2020-07 05:29: 29 Yes 25mL 25 mL, Slow IV Push, PRN, Starting on 05/19/21 at 2329, Until Discontinu ed, JEFFREY, Blood Glucose < or = 70 mg/dL and patient is unable to swallow or has mental status changes. [facility] ondansetron (ZOFRAN (PF)) injection 4 mg 2020-07 05:29: 21 Yes 4mg 4 mg, Slow IV Push, Q6HPRN, Starting on 05/19/21 at 2329, Until Discontinu ed, Routine, Nausea and Vomiting (N/V) [facility] morpHINE injection 2 mg 2020-07 05:29: 11 05-21 05:28 :11 No 2mg 2 mg, Slow IV Push, Q4HPRN, Starting on 05/19/21 at 2329, Until 05/20/21 at 2328, Routine, Pain (scale 7-10), Chest pain [facility] traMADoL (ULTRAM) tablet 50 mg 2020-07 05:29: 08 05-22 05:28 :08 No 50mg 50 mg, Oral, Q8HPRN, Starting on 05/19/21 at 2329, Until 05/21/21 at 2328, Routine, Pain (scale 4-6) [facility] acetaminoph en (TYLENOL) tablet 650 mg 2020-07 05:29: 05 Yes 650mg 650 mg, Oral, Q6HPRN, Starting on 05/19/21 at 2329, Until Discontinu ed, Routine, Pain (scale 1-3) [facility] omeprazole 20 mg capsule 2020-07 23:30: 33 05-19 00:00 :00 No 20mg Take 20 mg by mouth daily. [facility] guaiFENesin 100 mg/5 mL solution 100 mg 09-14 05:00: 00 09-14 16:59 :00 No 100mg 100 mg, Oral, ONCE, 1 dose, Fri09/13/20 at 2300, Routine [facility] ketorolac (TORADOL) injection 30 mg 09-14 03:30: 00 09-14 02:27 :00 No 30mg 30 mg, Slow IV Push, ONCE, 1 dose, Fri09/13/20 at 2130, JEFFREY
Fa culty member approving Restricted medication : DIANA BERG [facility] benzonatate 100 mg capsule 09-13 00:00: 00 05-19 00:00 :00 No [id number] 100mg Take 1 capsule by mouth 3 (three) times daily as needed for Cough. [facility] ipratropium -albuterol (DUONEB) 0.5 mg-3 mg(2.5 mg base)/3 mL nebulizer solution 6 mL 07-28 02:15: 00 07-28 01:21 :00 No 6mL 6 mL, Inhalation , ONCE, 1 dose, 07/27/19 at 2015, Routine [facility] codeine-gua ifenesin (ROBITUSSIN AC) 10-100 mg/5 mL solution 10 mL 07-28 01:30: 00 07-28 00:55 :00 No 10mL 10 mL, Oral, ONCE, 1 dose, 07/27/19 at 1930, JEFFREY [facility] codeine-gua ifenesin 10-100 mg/5 mL solution 07-27 00:00: 00 Yes [id number] 10mL Take 10 mL by mouth every 6 (six) hours as needed for Cough. [facility] albuterol 2.5 mg /3 mL (0.083 %) nebulizer solution 07-27 00:00: 00 Yes [id number] 2.5mg Inhale 3 mL every 4 (four) hours as needed for Wheezing or Shortness of Breath. May also nebulize one extra every 6 hours. [facility] ondansetron (ZOFRAN (PF)) injection 4 mg 03-11 20:30: 03-11 19:53 :00 No 4mg 4 mg, Slow IV Push, ONCE, 1 dose, Martha 03/11/19 at 1530, JEFFREY [facility] NaCl 0.9% (NS) bolus infusion 1,000 mL 03-11 19:30: 00 03-11 20:56 :00 No 1000mL at 999 mL/hr, 1,000 mL, IV Infusion, ONCE, 1 dose, Martha 03/11/19 at 1430, JEFFREY [facility] dicyclomine (BENTYL) 10 mg capsule 03-11 00:00: 00 Yes [id number] 10mg Take 1 capsule by mouth 4 (four) times daily. [facility] ondansetron 4 mg disintegrat ing tablet 03-11 00:00: 00 Yes [id number] 4mg Take 1 tablet by mouth every 4 (four) hours as needed for Nausea and Vomiting (N/V). [facility] benzonatate 100 mg capsule 2017-07 00:00: 00 Yes 100mg Take 1 capsule by mouth 3 (three) times daily as needed for Cough. [facility] acetaminoph en-codeine (TYLENOL-CO DEINE #3) 300-30 mg tablet 2017-07 00:00: 00 09-13 00:00 :00 No 1{tbl} Take 1 tablet by mouth every 4 (four) hours as needed for Pain (scale 7-10). [facility] atorvastati n 10 mg tablet 10-14 14:40: 51 Yes 10mg Take 10 mg by mouth at bedtime. [facility] omeprazole 20 mg capsule 10-14 14:40: 51 Yes 20mg Take 20 mg by mouth daily. [facility] levothyroxi ne 125 mcg tablet 10-14 00:00: 00 Yes TAKE 1 TABLET BY MOUTH EVERY MORNING [facility] SYMBICORT 160-4.5 mcg/actuati on inhaler 3-28 00:00: 00 05-19 00:00 :00 No TAKE 2 PUFFS BY MOUTH TWICE A DAY [facility] ALPRAZolam 0.25 mg tablet 09-30 00:00: 00 Yes .5mg Take 0.5 mg by mouth daily. Pt taking 0.5mg daily [facility] diltiazem 60 mg tablet 09-30 00:00: 00 05-19 00:00 :00 No TAKE 1 TABLET BY MOUTH TWICE A DAY [facility] losartan 25 mg tablet 08-22 00:00: 00 05-19 00:00 :00 No TAKE 1 TABLET BY MOUTH EVERY MORNING [facility] clopidogrel 75 mg tablet 08-12 00:00: 00 Yes TAKE 1 TABLET BY MOUTH EVERY MORNING [facility] Vital Signs Vital Name Observation Time Observation Value Comments S ource Systolic blood pressure 2024-02-03 18:30:00 129 mm[Hg] [facility] Diastolic blood pressure 2024-02-03 18:30:00 68 mm[Hg] [facility] Heart rate 2024-02-03 18:30:00 65 /min [facility] Body temperature 2024-02-03 18:30:00 36.44 Brittany [facility] Respiratory rate 2024-02-03 18:30:00 18 /min [facility] Body weight 2024-02-03 18:30:[address] [facility] BMI 2024-02-03 18:30:00 18.43 kg/m2 [facility] Oxygen saturation in Arterial blood by Pulse oximetry 2024-02-03 18:30:00 98 /min [facility] Systolic blood pressure 2023-02-26 20:38:00 149 mm[Hg] [facility] Diastolic blood pressure 2023-02-26 20:38:00 75 mm[Hg] [facility] Heart rate 2023-02-26 20:38:00 81 /min [facility] Body temperature 2023-02-26 20:38:00 36.72 Brittany [facility] Respiratory rate 2023-02-26 20:38:00 18 /min [facility] Body height 2023-02-26 20:38:00 170.2 cm [facility] Body weight 2023-02-26 20:38:00 57.607 kg [facility] BMI 2023-02-26 20:38:00 19.89 kg/m2 [facility] Oxygen saturation in Arterial blood by Pulse oximetry 2023-02-26 20:38:00 100 /min [facility] Systolic blood pressure 2022-08-24 15:43:00 135 mm[Hg] [facility] Diastolic blood pressure 2022-08-24 15:43:00 83 mm[Hg] [facility] Heart rate 2022-08-24 15:43:00 94 /min [facility] Body temperature 2022-08-24 15:43:00 36.83 Brittany [facility] Respiratory rate 2022-08-24 15:43:00 18 /min [facility] Body height 2022-08-24 15:43:00 170.2 cm [facility] Body weight 2022-08-24 15:43:00 58.968 kg [facility] BMI 2022-08-24 15:43:00 20.36 kg/m2 [facility] Oxygen saturation in Arterial blood by Pulse oximetry 2022-08-24 15:43:00 99 /min [facility] Systolic blood pressure 2022-01-08 02:02:00 147 mm[Hg] [facility] Diastolic blood pressure 2022-01-08 02:02:00 78 mm[Hg] [facility] Heart rate 2022-01-08 02:02:00 78 /min [facility] Respiratory rate 2022-01-08 02:02:00 18 /min [facility] Oxygen saturation in Arterial blood by Pulse oximetry 2022-01-08 02:02:00 100 /min [facility] Body temperature 2022-01-07 23:24:00 37.17 Brittany [facility] Body weight 2022-01-07 23:24:00 58.968 kg [facility] BMI 2022-01-07 23:24:00 20.36 kg/m2 [facility] Systolic blood pressure 2022-01-06 20:29:00 140 mm[Hg] [facility] Diastolic blood pressure 2022-01-06 20:29:00 106 mm[Hg] [facility] Heart rate 2022-01-06 20:29:00 102 /min [facility] Body temperature 2022-01-06 20:29:00 37.5 Brittany [facility] Respiratory rate 2022-01-06 20:29:00 16 /min [facility] Body height 2022-01-06 20:29:[address] [facility] Body weight 2022-01-06 20:29:[address] [facility] BMI 2022-01-06 20:29:00 20.36 kg/m2 [facility] Oxygen saturation in Arterial blood by Pulse oximetry 2022-01-06 20:29:00 99 /min [facility] Systolic blood pressure 2021-09-02 01:52:00 132 mm[Hg] [facility] Diastolic blood pressure 2021-09-02 01:52:00 75 mm[Hg] [facility] Heart rate 2021-09-02 01:52:00 67 /min [facility] Respiratory rate 2021-09-02 01:52:00 16 /min [facility] Oxygen saturation in Arterial blood by Pulse oximetry 2021-09-02 01:52:00 99 /min [facility] Body temperature 2021-09-01 23:57:00 36.17 Brittany [facility] Body height 2021-09-01 23:57:[address] [facility] Body weight 2021-09-01 23:57:[address] [facility] BMI 2021-09-01 23:57:00 20.36 kg/m2 [facility] Systolic blood pressure 2021-08-07 15:57:00 165 mm[Hg] [facility] Diastolic blood pressure 2021-08-07 15:57:00 71 mm[Hg] [facility] Heart rate 2021-08-07 15:57:00 97 /min [facility] Body temperature 2021-08-07 15:57:00 37.44 Brittany [facility] Respiratory rate 2021-08-07 15:57:00 18 /min [facility] Body height 2021-08-07 15:57:[address] [facility] Body weight 2021-08-07 15:57:[address] [facility] BMI 2021-08-07 15:57:00 19.58 kg/m2 [facility] Oxygen saturation in Arterial blood by Pulse oximetry 2021-08-07 15:57:00 98 /min [facility] Systolic blood pressure 2021-06-30 01:29:00 132 mm[Hg] [facility] Diastolic blood pressure 2021-06-30 01:29:00 75 mm[Hg] [facility] Heart rate 2021-06-30 01:29:00 75 [facility] 2021-06-30 01:29:00 18 /min [facility] Oxygen saturation in Arterial blood by Pulse oximetry 2021-06-30 01:29:00 100 /min [facility] Body temperature 2021-06-29 22:01:00 36.67 Brittany [facility] Body weight 2021-06-29 22:01:[address] [facility] BMI 2021-06-29 22:01:00 18.32 kg/m2 [facility] Systolic blood pressure 2021-05-20 21:45:00 137 mm[Hg] [facility] Diastolic blood pressure 2021-05-20 21:45:00 75 mm[Hg] [facility] Heart rate 2021-05-20 21:45:00 75 /[facility] Body temperature 2021-05-20 21:45:00 36.5 Brittany [facility] Respiratory rate 2021-05-20 21:45:00 16 /min [facility] Oxygen saturation in Arterial blood by Pulse oximetry 2021-05-20 21:45:00 97 /min [facility] Body weight 2021-05-20 04:14:[address] [facility] BMI 2021-05-20 04:14:00 18.47 kg/m2 [facility] Body height 2021-05-20 03:42:[address] [facility] Systolic blood pressure 2020-09-14 03:30:00 147 mm[Hg] [facility] Diastolic blood pressure 2020-09-14 03:30:00 89 mm[Hg] [facility] Heart rate 2020-09-14 03:30:00 73 /min [facility] Respiratory rate 2020-09-14 03:30:00 19 /min [facility] Oxygen saturation in Arterial blood by Pulse oximetry 2020-09-14 03:30:00 97 /min [facility] Body temperature 2020-09-14 02:10:00 36.5 Brittany [facility] Body height 2020-09-14 02:09:[address] [facility] Body weight 2020-09-14 02:09:[address] [facility] BMI 2020-09-14 02:09:00 21.14 kg/m2 [facility] Systolic blood pressure 2020-09-14 03:30:00 147 mm[Hg] [facility] Diastolic blood pressure 2020-09-14 03:30:00 89 mm[Hg] [facility] Heart rate 2020-09-14 03:30:00 73 /min [facility] Respiratory rate 2020-09-14 03:30:00 19 /min [facility] Oxygen saturation in Arterial blood by Pulse oximetry 2020-09-14 03:30:00 97 /min [facility] Body temperature 2020-09-14 02:10:00 36.5 Brittany [facility] Body height 2020-09-14 02:09:00 170.2 cm [facility] Body weight 2020-09-14 02:09:[address] [facility] BMI 2020-09-14 02:09:00 21.14 kg/m2 [facility] Heart rate 2019-07-28 01:36:00 70 /min [facility] Respiratory rate 2019-07-28 01:36:00 18 /min [facility] Oxygen saturation in Arterial blood by Pulse oximetry 2019-07-28 01:24:00 98 /min [facility] Systolic blood pressure 2019-07-28 01:00:00 143 mm[Hg] [facility] Diastolic blood pressure 2019-07-28 01:00:00 74 mm[Hg] [facility] Body temperature 2019-07-28 00:05:00 36.56 Brittany [facility] Body height 2019-07-28 00:05:[address] [facility] Body weight 2019-07-28 00:05:[address] [facility] BMI 2019-07-28 00:05:00 23.49 kg/m2 [facility] Heart rate 2019-07-28 01:36:00 70 /min [facility] Respiratory rate 2019-07-28 01:36:00 18 /min [facility] Oxygen saturation in Arterial blood by Pulse oximetry 2019-07-28 01:24:00 98 /min [facility] Systolic blood pressure 2019-07-28 01:00:00 143 mm[Hg] [facility] Diastolic blood pressure 2019-07-28 01:00:00 74 mm[Hg] [facility] Body temperature 2019-07-28 00:05:00 36.56 Brittany [facility] Body height 2019-07-28 00:05:[address] [facility] Body weight 2019-07-28 00:05:[address] [facility] BMI 2019-07-28 00:05:00 23.49 kg/m2 [facility] Systolic blood pressure 2019-03-11 21:00:00 141 mm[Hg] [facility] Diastolic blood pressure 2019-03-11 21:00:00 66 mm[Hg] [facility] Heart rate 2019-03-11 21:00:00 97 /[facility] Respiratory rate 2019-03-11 21:00:00 18 /min [facility] Oxygen saturation in Arterial blood by Pulse oximetry 2019-03-11 21:00:00 97 /min [facility] Body temperature 2019-03-11 19:13:00 36.06 Brittany [facility] Body weight 2019-03-11 19:12:[address] [facility] BMI 2019-03-11 19:12:00 23.49 kg/m2 [facility] Systolic blood pressure 2019-03-11 21:00:00 141 mm[Hg] [facility] Diastolic blood pressure 2019-03-11 21:00:00 66 mm[Hg] [facility] Heart rate 2019-03-11 21:00:00 97 /min [facility] Respiratory rate 2019-03-11 21:00:00 18 /min [facility] Oxygen saturation in Arterial blood by Pulse oximetry 2019-03-11 21:00:00 97 /min [facility] Body temperature 2019-03-11 19:13:00 36.06 Brittany [facility] Body weight 2019-03-11 19:12:[address] [facility] BMI 2019-03-11 19:12:00 23.49 kg/m2 [facility] Procedures Procedure Date / Time Performed Performing Clinician Source BASIC METABOLIC PANEL 2024-04-08 08:13:00 Antoinette Lawrence [facility] COMP. METABOLIC PANEL (90253) 2023-02-26 21:14:00 Neida Duggan [facility] CBC WITH DIFF 2023-02-26 21:14:[address] [facility] CONSENT/REFUSAL FOR DIAGNOSIS AND TREATMENT 2023-02-26 20:33:07 Doctor Unassigned, [place] [facility] POCT SARS-COV-2 ANTIGEN (BINAX NOW) 2022-08-24 15:52:00 Portia Morrison [facility] POCT MOLECULAR FLU 2022-08-24 15:51:00 Unknown, Attend ing [facility] ASSIGNMENT OF BENEFITS 2022-08-24 15:38:07 Docto r Unassigned, [place] [facility] XR CHEST 1 VW 2022-01-08 00:24:42 Alex Oconnell [facility] RAPID STREP SCREEN FOR GROUP A 2022-01-06 20:47:00 Sherrill Connor [facility] COVID-19 (ID NOW RAPID TESTING) 2022-01-06 20:47:00 Sherrill Connor [facility] CONSENT/REFUSAL FOR DIAGNOSIS AND TREATMENT 2022-01-06 20:26:18 Doctor Unassigned, [place] [facility] RAPID INFLUENZA A/B 2021-09-02 00:47:00 Apryl Livingston [facility] COVID-19 (ID NOW RAPID TESTING) 2021-09-02 00:47:00 Cameron Livingston [facility] XR CHEST 2 2021-09-02 00:27:31 Cameron Livingston [facility] CONSENT/REFUSAL FOR DIAGNOSIS AND TREATMENT 2021-09-01 23:46:25 Doctor Unassigned, [place] [facility] XR CHEST 2 2021-08-07 16:43:[address] [facility] CONSENT/REFUSAL FOR DIAGNOSIS AND TREATMENT 2021-08-07 15:37:28 Doctor Unassigned, [place] [facility] CT ABDOMEN PELVIS W CONTRAST 2021-06-29 23:11:24 Aj Castano [facility] LIPASE 2021-06-29 22:18:00 Aj Castano [facility] TROPONIN I 2021-06-29 22:18:00 [facility] COMP. METABOLIC PANEL (36777) 2021-06-29 22:18:00 Aj Castano [facility] CBC WITH DIFF 2021-06-29 22:18:00 Aj Castano [facility] URINALYSIS 2021-06-29 22:18:00 Aj Castano [facility] CONSENT/REFUSAL FOR DIAGNOSIS AND TREATMENT 2021-06-29 21:50:47 Doctor Unassigned, [place] [facility] POCT GLUCOSE (AUTOMATED) 2021-05-20 17:30:00 Marcelina Che [facility] HB ECG ROUTINE & RHYTHM STRIP 2021-05-20 15:36:46 Sami Caceres [facility] TRANSTHORACIC ECHO (TTE) COMPLETE 2021-05-20 15:19:52 Yane [facility] TROPONIN I 2021-05-20 11:04:00 Marcelina Che [facility] BASIC METABOLIC PANEL (NA, K, CL, CO2, GLUCOSE, BUN, CREATININE, CA) 2021-05-20 11:04:00 Yane [facility] CBC WITH DIFF 2021-05-20 11:04:00 [facility] TROPONIN I 2021-05-20 01:56:00 [facility] XR CHEST 1 VW 2021-05-20 00:01:[address] [facility] LIPASE 2021-05-19 23:49:00 [facility] MAGNESIUM 2021-05-19 23:49:00 [facility] TROPONIN I 2021-05-19 23:49:00 [facility] COMP. METABOLIC PANEL (53652) 2021-05-19 23:49:00 Neida Duggan [facility] CBC WITH DIFF 2021-05-19 23:49:[address] [facility] PROTHROMBIN TIME / INR 2021-05-19 23:49:00 Neida Duggan [facility] ACTIVATED PARTIAL THRMPLAS VANI 2021-05-19 23:49:00 Neida Duggan [facility] COVID-19 (ID NOW RAPID TESTING) 2021-05-19 23:49:00 Neida Duggan [facility] CONSENT/REFUSAL FOR DIAGNOSIS AND TREATMENT 2021-05-19 23:01:42 Doctor Unassigned, [place] [facility] URINALYSIS 2020-09-14 02:42:00 Diana Berg [facility] XR CHEST 1 VW 2020-09-14 02:30:21 [facility] 2020-09-14 02:21:00 Diana Berg [facility] TROPONIN I 2020-09-14 02:21:00 Diana Berg [facility] HEPATIC FUNCTION PANEL ([id number]) (ALB,T.PRO,BILI T,BU/BC,ALT,AST,ALK PHOS) 2020-09-14 02:21:00 Diana Berg [facility] BASIC METABOLIC PANEL (NA, K, CL, CO2, GLUCOSE, BUN, CREATININE, CA) 2020-09-14 02:21:00 Diana Berg [facility] CBC WITH DIFF 2020-09-14 02:21:00 Diana Berg [facility] N-TERMINAL PRO-BNP 2020-09-14 02:21:00 Lala Berg [facility] COVID-19 (ID NOW RAPID TESTING) 2020-09-14 02:21:00 Diana Berg [facility] NOTICE OF PRIVACY PRACTICES 2020-09-14 02:00:22 Doctor Unassigned, [place] [facility] CONSENT/REFUSAL FOR DIAGNOSIS AND TREATMENT 2020-09-14 01:58:28 Doctor Unassigned, [place] [facility] HEPATIC FUNCTION PANEL ([id number]) (ALB,T.PRO,BILI T,BU/BC,ALT,AST,ALK PHOS) 2019-07-28 00:55:00 Mariangel Ortega [facility] BASIC METABOLIC PANEL (NA, K, CL, CO2, GLUCOSE, BUN, CREATININE, CA) 2019-07-28 00:55:00 Mariangel Ortega [facility] CBC WITH DIFFERENTIAL 2019-07-28 00:55:00 Denise Ortega [facility] RAPID STREP SCREEN FOR GROUP A 2019-07-28 00:55:00 Ibikunle, Folusho F [facility] ADC,CLC OR LCC ONLY - INFLUENZA A & B DIRECT ANTIGEN 2019-07-28 00:55:00 Mariangel Ortega [facility] CBC WITH DIFFERENTIAL 2019-07-28 00:55:00 ShannonDenise noah Ada [facility] XR CHEST 2 VW 2019-07-28 00:28:40 Mariangel Ortega [facility] CONSENT/REFUSAL FOR DIAGNOSIS AND TREATMENT 2019-07-27 23:47:18 Doctor Unassigned, [place] [facility] LIPASE 2019-03-11 19:53:00 Sherrill Connor [facility] HEPATIC FUNCTION PANEL ([id number]) (ALB,T.PRO,BILI T,BU/BC,ALT,AST,ALK PHOS) 2019-03-11 19:53:00 Sherrill Connor [facility] BASIC METABOLIC PANEL (NA, K, CL, CO2, GLUCOSE, BUN, CREATININE, CA) 2019-03-11 19:53:00 Sherrill Connor [facility] CBC WITH DIFFERENTIAL 2019-03-11 19:53:00 Prosper Connor [facility] PROTHROMBIN TIME / INR 2019-03-11 19:53:00 Bill Connor [facility] ACTIVATED PARTIAL THRMPLAS VANI 2019-03-11 19:53:00 Sherrill Connor [facility] NOTICE OF PRIVACY PRACTICES 2019-03-11 18:56:54 Doctor Unassigned, [place] [facility] Encounters Start Date/Time End Date/Time Encounter Type Admission Type Attending Clinicians Care Facility Care Department Encounter ID Source 2021-05-06 05:05:13 Emergency [facility] [id number] [facility] 2024-04-26 00:00:00 2024-05-27 23:52:15 Telephone Maile Granados [facility] Darell Morris - [address] 1.2.840.114 350.1.13.70 8.2.7.2.686 [id number] Virgilio Guzman [facility] 2024-05-24 11:10:00 2024-05-24 12:05:21 Office Visit [facility] 1.2.840.114 350.1.13.70 8.2.7.2.686 [id number] Virgilio Guzman [facility] 2024-05-24 10:48:50 2024-05-24 12:05:21 Outpatient Elective SELBSTHIRO [facility] [id number] [facility] 2024-05-20 10:55:40 2024-05-20 10:55:40 Outpatient Elective SELBSTHIRO [facility] [id number] [facility] 2024-05-19 11:30:00 2024-05-19 12:09:21 Office Visit [facility] 1.2.840.114 350.1..70 8.2.7.2.686 [id number] [facility] 2024-05-15 09:22:29 2024-05-15 09:22:29 Outpatient [facility] [id number] Abebe Beaulieu 2024-04-08 00:00:00 2024-05-09 23:52:37 Telephone Humberto, Oncarlos Paul, Jw [facility] 1..840.114 350.1..70 8.2.7.2.686 [id number] [facility] 2024-05-03 11:15:12 2024-05-03 12:05:34 Outpatient Elective SELBSTHIRO [facility]OUT [facility] [id number] [facility] 2024-04-07 00:00:00 2024-05-03 11:40:37 Telephone Selsara Hiro Hidalgo [facility] 1.2.840.114 350.1.13.70 8.2.7.2.686 [id number] Virgilio lyon [facility] 2024-05-03 11:20:00 2024-05-03 11:30:00 Office Visit Selbst Hiro Hidalgo [facility] 1.2.840.114 350.1.13.70 8.2.7.2.686 [id number] Virgilio lyon [facility] 2024-04-26 11:46:11 2024-04-26 14:07:51 Outpatient Elective SELBST, HIRO MHEOUT MHEOUT [id number] [facility] 2024-04-26 12:00:00 2024-04-26 12:10:00 Office Visit Selbst, Hiro Hidalgo [facility] 1.2.840.114 350.1.13.70 8.2.7.2.686 [id number] Virgilio lyon [facility] 2024-04-21 09:41:32 2024-04-21 10:32:08 Outpatient Elective SELBST, HIRO MHEOUT MHEOUT [id number] [facility] 2024-04-21 10:10:00 2024-04-21 10:20:00 Office Visit Selbst, Hiroalejandro [facility] 1.2.840.114 350.1.13.70 8.2.7.2.686 [id number] Virgilio [facility] 2024-04-14 07:00:00 2024-04-14 08:21:12 Outside Procedure Selbst, Hiro Hidalgo [facility] 1.2.840.114 350.1.13.70 8.2.7.2.686 [id number] [facility] 2024-04-14 00:28:58 2024-04-14 08:21:12 Outpatient Elective SELBST, HIRO MHEOUT MHEOUT [id number] [facility] 2024-04-08 00:00:00 2024-04-08 20:45:43 Orders Only Selbst, Hiro Rocky [facility] 1.840.114 350.1.13.70 8.2.7.2.686 [id number] Virgilio Guzman [facility] 2024-03-22 10:20:00 2024-03-22 10:42:35 Office Visit SelHiro ruiz [facility] 1.2840.114 350.1.13.70 8.2.7.2.686 [id number] Virgilio lyon [facility] 2024-03-22 10:04:30 2024-03-22 10:42:35 Outpatient Elective SELBRADENTHIRO MHEOUT [id number] [facility] 2024-03-19 11:25:21 2024-03-19 11:25:21 Outpatient [facility] [id number] Abebe Ada Christofer 2024-03-16 14:13:31 2024-03-16 14:13:31 Outpatient [facility] [id number] Abebe F Christofer 2024-02-04 00:00:00 2024-03-06 23:52:40 Maile Solano [facility] 1..840.114 350.1.13.70 8.2.7.2.686 [id number] Virgilio lyon [facility] 2024-03-01 09:50:45 2024-03-01 10:43:23 Outpatient Elective SELBSTHIRO MHScoutOUT MHEOUT [id number] [facility] 2024-03-01 10:00:00 2024-03-01 10:10:00 Consult Hiro [facility] 1.2.840.114 350.1.13.70 8.2.7.2.686 [id number] Virgilio lyon [facility] 2024-02-20 10:47:33 2024-02-20 10:47:33 Outpatient [facility] [id number] Abebe Beaulieu 2024-02-11 09:36:46 2024-02-11 09:36:46 Outpatient [facility] [id number] Abebe Beaulieu 2024-02-09 10:34:43 2024-02-09 11:18:58 Outpatient Elective SELBSTHIRO MHEOUT MHEOUT [id number] [facility] 2024-02-09 10:30:00 2024-02-09 11:18:58 Office Visit SelAbril ruizalejandro Hidalgo [facility] 1..840.114 350.1.13.70 8.2.7.2.686 [id number] Virgilio Guzman [facility] 2024-02-03 13:20:00 2024-02-03 14:25:57 Outpatient R LIZZETH ELLIS [facility] [id number] [facility] 2024-02-03 13:20:00 2024-02-03 14:25:57 Urgent Care Lizzeth Ellis Unknown, Attending [facility] 1.2.840.114 350.1.13.10 4.2.7.2.686 [id number] [facility] 2024-02-02 10:30:00 2024-02-02 11:26:38 Office Visit SelArbil ruizalejandro Hidalgo [facility] 1..840.114 350.1.13.70 8.2.7.2.686 [id number] Virgilio Guzman [facility] 2024-02-02 10:15:54 2024-02-02 11:26:38 Outpatient Elective SELBRADENT HIRO MHEOUT MHEOUT [id number] [facility] 2024-01-27 12:41:05 2024-01-27 12:41:05 Outpatient [facility] [id number] Abebe Beaulieu 2024-01-23 14:43:16 2024-01-23 14:43:16 Outpatient [facility]FA [facility] [id number] Abebe Beaulieu 2024-01-05 09:14:13 2024-01-05 09:14:13 Outpatient [facility] [id number] Abebe Beaulieu 2024-01-01 09:49:43 2024-01-01 09:49:43 Outpatient [facility] [id number] Abebe Beaulieu 2023-12-19 12:30:25 2023-12-19 12:30:25 Outpatient [facility] [id number] Abebe Beaulieu 2023-12-18 13:35:13 2023-12-18 13:35:13 Outpatient [facility] [id number] Abebe Caballero Christofer 2023-12-12 14:26:47 2023-12-12 14:26:47 Outpatient [facility] [id number] Abebe Caballero Christofer 2023-12-08 12:00:00 2023-12-08 13:03:09 Office Visit Elective SelbradentHiro [facility] 1.2.840.114 350.1.13.70 8.2.7.2.686 [id number] Virgilio Guzman [facility] 2023-12-04 13:03:20 2023-12-04 13:03:20 Outpatient [facility] [id number] Abebe Caballreo [place] 2023-11-24 09:38:53 2023-11-24 09:38:53 Outpatient [facility] [id number] Abebe Caballero [place] 2023-11-12 10:43:39 2023-11-12 10:43:39 Outpatient [facility] [id number] Abebe Caballero [place] 2023-11-11 09:14:49 2023-11-11 09:14:49 Outpatient [facility] [id number] Abebe Caballero [place] 2023-11-09 09:45:41 2023-11-09 09:45:41 Outpatient [facility] [id number] Abebe Caballero Christ[facility] 2023-10-27 08:36:14 2023-10-27 08:36:14 Outpatient [facility] [id number] Abebe Beaulieu 2023-09-29 09:07:23 2023-09-29 09:07:23 Outpatient [facility] [id number] Abebe Beaulieu 2023-07-08 09:29:45 2023-07-08 09:29:45 Outpatient [facility] [id number] Abebe Beaulieu 2023-02-26 15:53:00 2023-02-26 17:52:00 Emergency X Neida DUGGAN [facility] [id number] [facility] 2023-02-26 15:53:00 2023-02-26 17:52:00 Emergency Neida Duggan [facility] 1..114 350.1.13.10 4.2.7.2.686 [id number] [facility] 2022-08-24 09:40:00 2022-08-24 10:00:00 Urgent Care Portia Morrison Unknown, Attending [facility] 1.84114 350.1.13.10 4.2.7.2.686 [id number] [facility] 2022-08-24 09:40:00 2022-08-24 09:40:00 Outpatient R PORTIA MORRISON [facility] [id number] [facility] 2022-08-24 00:00:00 2022-08-24 00:00:00 Orders Only Doctor Unassigned, [place] [facility] 1.114 350.1.13.10 4.2.7.2.686 [id number] [facility] 2022-01-11 13:15:00 2022-01-11 13:30:00 Laboratory Only Only, Ang Db Test Donna Charles [facility] 1.84114 350.1.13.10 4.2.7.2.686 [id number] [facility] 2022-01-11 13:15:00 2022-01-11 13:24:38 Outpatient R BONNIEDONNA [facility] [id number] [facility] 2022-01-07 18:26:00 2022-01-07 21:08:00 Emergency X ALEX OCONNELL [facility] [id number] [facility] 2022-01-07 18:26:00 2022-01-07 21:08:00 Emergency Alex Oconnell [facility] 1.840.114 350.1.13.10 4.2.7.2.686 [id number] [facility] 2022-01-06 15:31:00 2022-01-06 16:32:00 Emergency X SHERRILL CONNOR [facility] [id number] [facility] 2022-01-06 15:31:00 2022-01-06 16:32:00 Emergency Sherrill Connor [facility] 1.840.114 350.1.13.10 4.2.7.2.686 [id number] [facility] 2021-09-01 17:59:00 2021-09-01 19:56:00 Emergency X CAMERON LIVINGSTON [facility] [id number] [facility] 2021-09-01 17:59:00 2021-09-01 19:56:00 Emergency Cameron Livingston [facility] 1.840.114 350.1.13.10 4.2.7.2.686 [id number] [facility] 2021-09-01 00:00:00 2021-09-01 00:00:00 Orders Only Doctor Unassigned, [place] [facility] 1.840.114 350.1.13.10 4.2.7.2.686 [id number] [facility] 2021-08-08 00:00:00 2021-08-08 00:00:00 Letter (Out) JeremiahNirmala [facility] 1.840.114 350.1.13.10 4.2.7.2.686 [id number] [facility] 2021-08-07 09:58:00 2021-08-07 11:43:00 Emergency X DARIUS LEDESMA [facility] [id number] [facility] 2021-08-07 09:58:00 2021-08-07 11:43:00 Emergency Darius Ledesma [facility] 1.840.114 350.1.13.10 4.2.7.2.686 [id number] [facility] 2021-08-07 00:00:00 2021-08-07 00:00:00 Orders Only Doctor Unassigned, [place] [facility] 1.840.114 350.1.13.10 4.2.7.2.686 [id number] [facility] 2021-06-29 16:04:00 2021-06-29 19:33:00 Emergency X IVANJOHANALindseyAJ [facility] [id number] [facility] 2021-06-29 16:04:00 2021-06-29 19:33:00 Emergency Aj Castano [facility] 1.840.114 350.1.13.10 4.2.7.2.686 [id number] [facility] 2021-05-19 17:04:00 2021-05-20 17:03:00 Outpatient X YANE [facility] YE[facility] [id number] [facility] 2021-05-19 17:04:00 2021-05-20 17:03:00 Emergency Neida Duggan [facility] 1.2.840.114 350.1.13.10 4.2.7.2.686 [id number] [facility] 2020-09-16 10:20:00 2020-09-16 10:20:00 Outpatient R MAYTE ISSA [facility] [id number] [facility] 2020-09-16 09:44:15 2020-09-16 10:04:15 Laboratory Only Lab, [facility] Pob Alicia Issa Mayte [facility] [address] 1.2.840.114 350.1.13.10 4.2.7.2.686 [id number] [facility] 2020-09-16 09:44:15 2020-09-16 10:04:15 Laboratory Only Lab, [facility] 1.2.840.114 350.1.13.10 4.2.7.2.686 [id number] 2020-09-13 20:05:00 2020-09-13 22:24:00 Emergency Diana Berg [facility] 1.2.840.114 350.1.13.10 4.2.7.2.686 [id number] [facility] 2020-09-13 20:05:00 2020-09-13 22:24:00 Emergency Diana Berg [facility] 1.2.840.114 350.1.13.10 4.2.7.2.686 [id number] 2019-07-27 18:07:12 2019-07-27 20:13:00 Emergency Mariangel Ortega [facility] 1.2.840.114 350.1.13.10 4.2.7.2.686 [id number] [facility] 2019-07-27 18:07:12 2019-07-27 20:13:00 Emergency Mariangel Ortega [facility] 1.2.840.114 350.1.13.10 4.2.7.2.686 [id number] [id number] 2019-07-27 00:00:00 2019-07-27 00:00:00 Orders Only Doctor Unassigned, [place] [facility] 1.2.840.114 350.1.13.10 4.2.7.2.686 [id number] [facility] 2019-07-27 00:00:00 2019-07-27 00:00:00 Orders Only Doctor Unassigned, [place] [facility] 1.2.840.114 350.1.13.10 4.2.7.2.686 [id number] 2019-03-11 14:05:54 2019-03-11 16:45:00 Emergency [facility] 1.2.840.114 350.1.13.10 4.2.7.2.686 [id number] [id number] [facility] 2019-03-11 14:05:54 2019-03-11 16:45:00 Emergency Nikolas [facility] [facility] [id number] 350.1.13.10 4.2.7.2.686 [id number] Results Test Description Test Time Test Comments Results Result Co mments Source [facility]. METABOLIC PANEL (62498)2023-02-26 22:05:45* Test Item Value Reference Range Interpretation Comme nts NA (test code = 3807319962) 136 mmol/L 135-145 K (test code = 7751696258) 3.7 mmol/L 3.5-5.0 CL (test code = 4569426827) 100 mmol/L 98-108 CO2 TOTAL (test code = 1865258210) 26 mmol/L 23-31 AGAP (test code = 9388118116) 10 2-16 BUN (test code = 6310239654) 11 mg/dL 7-23 GLUCOSE (test code = 0872266043) 123 mg/dL 70-110 H CREATININE (test code = 8721860164) 0.61 mg/dL 0.50-1.04 TOTAL BILI (test code = 8349399237) 0.2 mg/dL 0.1-1.1 CALCIUM (test code = 9600034165) 9.6 mg/dL 8.6-10.6 T PROTEIN (test code = 7847488049) 7.6 g/dL 6.3-8.2 ALBUMIN (test code = 6699551550) 4.8 g/dL 3.5-5.0 ALK PHOS (test code = 2189525179) 83 U/L 34-122 ALTv (test code = 1742-6) 20 U/L 5-35 AST(SGOT) (test code = 0730084525) 28 U/L 13-40 eGFR (test code = 4481395724) 99.1 mL/min/1.73m2 MADISYN (test code = MADISYN) [...] imaging tests). Lab Interpretation (test code = 77266-7) Abnormal [facility] WITH [id number] 21:53:23* Test Item Value Reference Range Interpretation [...] g/dL 31.6-35.1 H RDW-SD (test code = 32069-5) 42.1 fL 39.0-49.9 RDW-CV (test code = 788-0) 12.9 % 12.0-15.5 PLT (test code = 777-3) 274 See_Comment [Automated messa ge] The system which generated this result transmitted reference range: 166 - 358 10*3/?L. The reference range was not used to interpret this result as normal/abnormal. MPV (test code = 73150-7) 10.4 fL 9.5-12.9 NRBC/100 WBC (test code = 0990960555) 0.0 See_Comment [Automated me ssage] The system which generated this result transmitted reference range: 0.0 - 10.0 /100 WBCs. The reference range was not used to interpret this result as normal/abnormal. NRBC x10^3 (test code = 4253744890) See_Comment [Automated messa ge] The system which generated this result transmitted reference range: 10*3/?L. The reference range was not used to interpret this result as normal/abnormal. GRAN MAT (NEUT) % (test code = 770-8) 52.0 % IMM GRAN % (test code = 4076413797) 0.50 % LYMPH % (test code = 736-9) 34.2 % MONO % (test code = 5905-5) 6.8 % EOS % (test code = 713-8) 6.2 % BASO % (test code = 706-2) 0.3 % GRAN MAT x10^3(ANC) (test code = 7504372789) 3.46 10*3/uL 1.88-7.09 IMM GRAN x10^3 (test code = 8105784820) 0.03 10*3/uL 0.00-0.06 LYMPH x10^3 (test code = 731-0) 2.27 10*3/uL 1.32-3.29 MONO x10^3 (test code = 742-7) 0.45 10*3/uL 0.33-0.92 EOS x10^3 (test code = 711-2) 0.41 10*3/uL 0.03-0.39 H BASO x10^3 (test code = 704-7) 0.01-0.07 Lab Interpretation (test code = 62735-3) Abnormal [facility] MOLECULAR [id number] 16:02:31* Test Item Value Reference Range Interpretation Comme nts POCT Molecular FluA (test co de = 64438-6) Negative Negative POCT Molecular FluB (test co de = 12952-2) Negative Negative Lab Interpretation (test cod e = 06682-8) Normal [facility] SARS-COV-2 ANTIGEN (BINAX NOW)2022-08-24 15:52:00* Test Item Value Reference Range Interpretation Comme nts POCT SARS-COV-2 ANTIGEN (alfa t code = 31188-1) Not Detected Not Detected On board controls acceptable with C Line (test code = 3574) Yes Lab Interpretation (test cod e = 94012-0) Normal [facility]. METABOLIC PANEL (20800)2021-06-29 23:10:56* Test Item Value Reference Range Interpretation Comme nts NA (test code = 6966079020) 137 mmol/L 135-145 K (test code = 5717488679) 3.9 mmol/L 3.5-5.0 CL (test code = 3265186405) 102 mmol/L 98-108 CO2 TOTAL (test code = 3363871003) 27 mmol/L 23-31 AGAP (test code = 3635920726) 2-16 BUN (test code = 2050948530) 10 mg/dL 7-23 GLUCOSE (test code = 6201122132) 137 mg/dL 70-110 H CREATININE (test code = 8051904280) 0.69 mg/dL 0.50-1.04 TOTAL BILI (test code = 7869073006) 0.5 mg/dL 0.1-1.1 CALCIUM (test code = 3127785906) 9.2 mg/dL 8.6-10.6 T PROTEIN (test code = 0182987731) 7.7 g/dL 6.3-8.2 ALBUMIN (test code = 6230088012) 4.9 g/dL 3.5-5.0 ALK PHOS (test code = 0347233877) 73 U/L 34-122 ALTv (test code = 1742-6) 15 U/L 5-35 AST(SGOT) (test code = 6347774463) 21 U/L 13-40 eGFR (test code = 7289754905) mL/min/1.73m2 MADISYN (test code = MADISYN) Association [...] imaging tests). Lab Interpretation (test code = 67387-0) [id number] 22:59:27* Test Item Value Reference Range Interpretation Comments TROPONIN I (test code = 0260296076) 0.001 ng/mL See_Comment [Automated message] The system [...] of biotin. Lab Interpretation (test code = 47001-4) Normal [facility] 22:49:29* Test Item Value Reference Range Interpretation Comme nts LIPASE (test code = 0295194740) 57 U/L 0-220 Lab Interpretation (test cod e = 11087-0) Normal [facility] WITH [id number] 22:29:28* Test Item Value Reference Range Interpretation Comme nts WBC (test code = 6690-2) See_Comment [Automated [employer]] The system which generated this result transmitted [...] 34.2 g/dL 31.6-35.1 RDW-SD (test code = 24940-8) 43.4 fL 39.0-49.9 RDW-CV (test code = 788-0) 12.7 % 12.0-15.5 PLT (test code = 777-3) See_Comment [Automated messa ge] The system which generated this result transmitted reference range: 166 - 358 10*3/?L. The reference range was not used to interpret this result as normal/abnormal. MPV (test code = 62573-5) 10.7 fL 9.5-12.9 NRBC/100 WBC (test code = 3714328386) See_Comment [Automated [employer] ssage] The system which generated this result transmitted reference range: 0.0 - 10.0 /100 WBCs. The reference range was not used to interpret this result as normal/abnormal. NRBC x10^3 (test code = 6889284555) <0.01 See_Comment [Automated messa ge] The system which generated this result transmitted reference range: 10*3/?L. The reference range was not used to interpret this result as normal/abnormal. GRAN MAT (NEUT) % (test code = 770-8) 68.6 % IMM GRAN % (test code = 1554496687) 0.40 % LYMPH % (test code = 736-9) 22.9 % MONO % (test code = 5905-5) 6.3 % EOS % (test code = 713-8) 1.6 % BASO % (test code = 706-2) 0.2 % GRAN MAT x10^3(ANC) (test code = 4136509839) 6.89 10*3/uL 1.88-7.09 IMM GRAN x10^3 (test code = 9264489266) 0.04 10*3/uL 0.00-0.06 LYMPH x10^3 (test code = 731-0) 2.30 10*3/uL 1.32-3.29 MONO x10^3 (test code = 742-7) 0.63 10*3/uL 0.33-0.92 EOS x10^3 (test code = 711-2) 0.16 10*3/uL 0.03-0.39 BASO x10^3 (test code = 704-7) <0.03 0.01-0.07 Lab Interpretation (test code = 81518-0) [facility]2021-05-20 17:33:00* Test Item Value Reference Range Interpretation Comme nts POCT GLU (test code = 9003206835) 80 mg/dL 70-110 Lab Interpretation (test cod e = 00605-7) Normal [facility] [id number] 12:36:17* Test Item Value Reference Range Interpretation Comments TROPONIN I (test code = 0586711213) 0.002 ng/mL See_Comment [Automated message] The system [...] of biotin. Lab Interpretation (test code = 66846-9) Normal [facility] Metabolic Panel (NA, K, CL, CO2, GLUCOSE, BUN, CREATININE, CA)2021-05-20 12:31:20* Test Item Value Reference Range Interpretation Comme nts NA (test code = 0452485560) 138 mmol/L 135-145 K (test code = 8007402748) 4.2 mmol/L 3.5-5.0 CL (test code = 8813957670) 106 mmol/L 98-108 CO2 TOTAL (test code = 7214030097) 25 mmol/L 23-31 AGAP (test code = 6829175969) 2-16 BUN (test code = 8708968438) 12 mg/dL 7-23 GLUCOSE (test code = 3317633528) 146 mg/dL 70-110 H CREATININE (test code = 0675137654) 0.62 mg/dL 0.50-1.04 CALCIUM (test code = 0797405092) 10.0 mg/dL 8.6-10.6 eGFR (test code = 1765343370) mL/min/1.73m2 MADISYN (test code = MADISYN) Association [...] imaging tests). Lab Interpretation (test code = 39497-9) Abnormal [facility] with Wktzmcyzlnih4359-92-03 11:49:32* Test Item Value Reference Range Interpretation Comme nts WBC (test code = 6690-2) See_Comment [Automated [employer] ge] The system which generated this result [...] 34.6 g/dL 31.6-35.1 RDW-SD (test code = 94157-2) 40.3 fL 39.0-49.9 RDW-CV (test code = 788-0) 11.9 % 12.0-15.5 L PLT (test code = 777-3) See_Comment [Automated [employer] ge] The system which generated this result transmitted reference range: 166 - 358 10*3/?L. The reference range was not used to interpret this result as normal/abnormal. MPV (test code = 53645-6) 11.3 fL 9.5-12.9 NRBC/100 WBC (test code = 7566611555) See_Comment [Automated [employer] ssage] The system which generated this result transmitted reference range: 0.0 - 10.0 /100 WBCs. The reference range was not used to interpret this result as normal/abnormal. NRBC x10^3 (test code = 0105449278) <0.01 See_Comment [Automated messa ge] The system which generated this result transmitted reference range: 10*3/?L. The reference range was not used to interpret this result as normal/abnormal. GRAN MAT (NEUT) % (test code = 770-8) 59.9 % IMM GRAN % (test code = 1319085553) 0.50 % LYMPH % (test code = 736-9) 30.0 % MONO % (test code = 5905-5) 6.4 % EOS % (test code = 713-8) 2.9 % BASO % (test code = 706-2) 0.3 % GRAN MAT x10^3(ANC) (test code = 5921289130) 3.72 10*3/uL 1.88-7.09 IMM GRAN x10^3 (test code = 2002389438) 0.03 10*3/uL 0.00-0.06 LYMPH x10^3 (test code = 731-0) 1.86 10*3/uL 1.32-3.29 MONO x10^3 (test code = 742-7) 0.40 10*3/uL 0.33-0.92 EOS x10^3 (test code = 711-2) 0.18 10*3/uL 0.03-0.39 BASO x10^3 (test code = 704-7) <0.03 0.01-0.07 Lab Interpretation (test code = 28160-0) Abnormal [facility] [id number] 02:24:28* Test Item Value Reference Range Interpretation Comments TROPONIN I (test code = 9431843022) 0.003 ng/mL See_Comment [Automated message] The system [...] of biotin. Lab Interpretation (test code = 67983-8) [facility]21[facility] 00:25:00* Test Item Value Reference Range Interpretation Comme nts MAGNESIUM (test code = 9014152818) 1.9 mg/dL 1.7-2.4 Lab Interpretation (test cod e = 79816-7) Normal [facility] [id number] 00:20:03* Test Item Value Reference Range Interpretation Comments TROPONIN I (test code = 4089026106) 0.002 ng/mL See_Comment [Automated message] The system [...] of biotin. Lab Interpretation (test code = 80833-8) Normal [facility] METABOLIC PANEL (08184)2021-05-20 00:09:00* Test Item Value Reference Range Interpretation Comme nts NA (test code = 8934858420) 139 mmol/L 135-145 K (test code = 3496391106) 3.9 mmol/L 3.5-5.0 CL (test code = 6387893521) 101 mmol/L 98-108 CO2 TOTAL (test code = 5095381338) 28 mmol/L 23-31 AGAP (test code = 9004863606) 2-16 BUN (test code = 7847119718) 13 mg/dL 7-23 GLUCOSE (test code = 1271063395) 143 mg/dL 70-110 H CREATININE (test code = 2804439630) 0.68 mg/dL 0.50-1.04 TOTAL BILI (test code = 6989137168) 0.4 mg/dL 0.1-1.1 CALCIUM (test code = 8503394088) 10.4 mg/dL 8.6-10.6 T PROTEIN (test code = 5080716076) 8.0 g/dL 6.3-8.2 ALBUMIN (test code = 6341744429) 5.0 g/dL 3.5-5.0 ALK PHOS (test code = 3867849942) 93 U/L 34-122 ALTv (test code = 1742-6) 21 U/L 5-35 AST(SGOT) (test code = 9757650760) 31 U/L 13-40 eGFR (test code = 0060313109) mL/min/1.73m2 MADISYN (test code = MADISYN) Association [...] imaging tests). Lab Interpretation (test code = 90606-6) [facility]normal [facility]2021-[facility] 00:08:20* Test Item Value Reference Range Interpretation Comme nts LIPASE (test code = 6834569154) 66 U/L 0-220 Lab Interpretation (test cod e = 79300-8) Normal [facility] BrookaPTT2021-11-14 00:06:19* Test Item Value Reference Range Interpretation Comme nts APTT Patient (test code = 3173-2) See_Comment [Automated message] The system which generated this result transmitted reference range: 23 - 38 Seconds. The reference range was not used to interpret this result as normal/abnormal. MADISYN (test code = MADISYN) The [facility] patient population mean normal value for aPTT is 30 seconds. Lab Interpretation (test code = 15334-5) Normal [facility] BrookPROTHROMBIN TIME / [id number] 00:04:19* Test Item Value Reference Range Interpretation Comme nts PROTIME PATIENT (test code = 5964-2) See_Comment [Automated [employer]] The system which generated this result transmitted reference range: 12.0 - 14.7 Seconds. The reference range was not used to interpret this result as normal/abnormal. INR (test code = 6301-6) Normal INR <1.1; Warfarin Therapeutic range 2.0 to 3.0 or 2.5 to 3.5, depending upon the indications. Lab Interpretation (test code = 39346-5) Normal [facility] WITH [id number] 23:55:39* Test Item Value Reference Range Interpretation Comme nts WBC (test code = 6690-2) See_Comment [Automated [employer]] The system which generated this result transmitted reference range: 4.30 - 11.10 10*3/?L. The reference range was not used to interpret this result as normal/abnormal. RBC (test code = 789-8) See_Comment [Automated [employer]] The system which generated this result transmitted [...] 34.6 g/dL 31.6-35.1 RDW-SD (test code = 19223-3) 40.4 fL 39.0-49.9 RDW-CV (test code = 788-0) 11.9 % 12.0-15.5 L PLT (test code = 777-3) See_Comment [Automated [employer] ge] The system which generated this result transmitted reference range: 166 - 358 10*3/?L. The reference range was not used to interpret this result as normal/abnormal. MPV (test code = 65100-9) 11.0 fL 9.5-12.9 NRBC/100 WBC (test code = 7453137597) See_Comment [Automated [employer] ssage] The system which generated this result transmitted reference range: 0.0 - 10.0 /100 WBCs. The reference range was not used to interpret this result as normal/abnormal. NRBC x10^3 (test code = 8358554999) <0.01 See_Comment [Automated [employer] ge] The system which generated this result transmitted reference range: 10*3/?L. The reference range was not used to interpret this result as normal/abnormal. GRAN MAT (NEUT) % (test code = 770-8) 53.4 % IMM GRAN % (test code = 8734697383) 0.60 % LYMPH % (test code = 736-9) 36.2 % MONO % (test code = 5905-5) 6.4 % EOS % (test code = 713-8) 3.3 % BASO % (test code = 706-2) 0.1 % GRAN MAT x10^3(ANC) (test code = 6922039100) 3.58 10*3/uL 1.88-7.09 IMM GRAN x10^3 (test code = 9228424184) 0.04 10*3/uL 0.00-0.06 LYMPH x10^3 (test code = 731-0) 2.43 10*3/uL 1.32-3.29 MONO x10^3 (test code = 742-7) 0.43 10*3/uL 0.33-0.92 EOS x10^3 (test code = 711-2) 0.22 10*3/uL 0.03-0.39 BASO x10^3 (test code = 704-7) <0.03 0.01-0.07 Lab Interpretation (test code = 25865-0) Abnormal [facility] Brook[facility]inalysis2021-03-11 03:27:11* Test Item Value Reference Range Interpretation Comme nts APPEARANCE (test code = 7251264615) Clear Clear COLOR (test code = 5605505802) Straw Yellow A PH (test code = 2112245303) 4.8-8.0 SP GRAVITY (test code = 5409647829) 1.003-1.030 GLU U QUAL (test code = 8282036936) 500 mg/dL Normal A BLOOD (test code = 9496401563) Negative Negative KETONES (test code = 1856657956) Negative Negative PROTEIN (test code = 2887-8) Negative Negative UROBILIN (test code = 6006089054) Normal Normal BILIRUBIN (test code = 5732696068) Negative Negative NITRITE (test code = 6125644947) Negative Negative LEUK KEVEN (test code = 0744098199) 25/uL Negative A RBC/HPF (test code = 9118906934) See_Comment [Automated [employer] ge] The system which generated this result transmitted reference range: 0 - 3 HPF. The reference range was not used to interpret this result as normal/abnormal. WBC/HPF (test code = 0809328155) See_Comment [Automated [employer]] The system which generated this result transmitted reference range: 0 - 5 HPF. The reference range was not used to interpret this result as normal/abnormal. BACTERIA (test code = 3618394516) Negative Negative MUCOUS (test code = 7196545033) Slight Negative LPF A SQ EPITH (test code = 6587892414) HPF Lab Interpretation (test code = 40747-8) [facility]normal [facility] [id number] 03:00:28* Test Item Value Reference Range Interpretation Comme [facility] TROPONIN I (test code = 6939295143) <0.012 See_Comment [Automated message] The system which [...] biotin. ? Lab Interpretation (test code = 26971-2) Normal [facility] BrookN-TERMINAL REL-TKY0155-53-11 02:57:10* Test Item Value Reference Range Interpretation Comme [facility] NT-proBNP (test code = 9356758042) 25 pg/mL See_Comment [Automated message] The system which generated this result transmitted reference range: <=125. The reference range was not used to interpret this result as normal/abnormal. MADISYN (test code = MADISYN) Biotin has been reported to cause a negative bias, interpret results relative to patient's use of biotin. Lab Interpretation (test code = 47854-2) Normal [facility] Metabolic Panel (NA, K, CL, CO2, GLUCOSE, BUN, CREATININE, CA)2020-09-14 02:48:49* Test Item Value Reference Range Interpretation Comme nts NA (test code = 2775002467) 135 mmol/L 135-145 K (test code = 4734811832) 3.6 mmol/L 3.5-5.0 CL (test code = 9069770858) 101 mmol/L 98-108 CO2 TOTAL (test code = 9434750126) 23 mmol/L 23-31 AGAP (test code = 6504878550) 2-16 BUN (test code = 0875684023) 10 mg/dL 7-23 GLUCOSE (test code = 8526302609) 296 mg/dL 70-110 H CREATININE (test code = 6977777556) 0.62 mg/dL 0.50-1.04 CALCIUM (test code = 5645885386) 9.7 mg/dL 8.6-10.6 eGFR Calculation (Non-) (test code = 2014803252) mL/min/1.73m2 eGFR Calculation () (test code = 0728426316) mL/min/1.73m2 MADISYN (test code = MADISYN) Association [...] imaging tests). Lab Interpretation (test code = 40290-5) [facility]normal [facility] (ALB, T.PRO, BILI T, BU/BC, ALT, AST, ALK PHOS)2020-09-14 02:48:48* Test Item Value Reference Range Interpretation Comme nts TOTAL BILI (test code = 0719187385) 0.4 mg/dL 0.1-1.1 BILI UNCON (test code = 9736456636) 0.4 mg/dL 0.1-1.1 BILI CONJ (test code = 9887174933) 0.0 mg/dL 0.0-0.3 T PROTEIN (test code = 3624633053) 7.7 g/dL 6.3-8.2 ALBUMIN (test code = 3678161551) 5.0 g/dL 3.5-5.0 ALK PHOS (test code = 7004664505) 78 U/L 34-122 ALTv (test code = 1742-6) 19 U/L 5-35 AST(SGOT) (test code = 9094245711) 25 U/L 13-40 Lab Interpretation (test cod e = 17196-6) Normal [facility] Brook[facility]ase Rvzpb5369-87-08 02:48:48* Test Item Value Reference Range Interpretation Comme nts LIPASE (test code = 3277558247) 38 U/L 0-220 Lab Interpretation (test cod e = 74538-0) Normal [facility]OVID[facility] (ID NOW RAPID TESTING)2020-09-14 02:36:29* Test Item Value Reference Range Interpretation Comme nts SARS-CoV-2 Rapid ID NOW (test code = 36991-6) Positive Not Detected A MADISYN (test code = MADISYN) ID NOW COVID-19 As say is an isothermal nucleic acid amplification test intended for the qualitative detection of nucleic acid from SARS-CoV-2 viral RNA in nasopharyngeal (HL7 INTERFACE DEVELOPER) specimens. It is used under Emergency Use [...] clinically indicated. Lab Interpretation (test code = 18695-5) Abnormal [facility] with Ddjegriattpp3429-46-49 02:30:06* Test Item Value Reference Range Interpretation Comme nts WBC (test code = 6690-2) See_Comment [Automated [employer]] The system which generated this result transmitted reference range: 4.30 - 11.10 10*3/?L. The reference range was not used to interpret this result as normal/abnormal. RBC (test code = 789-8) See_Comment [Automated [employer]] The system which generated this result transmitted [...] 34.5 g/dL 31.6-35.1 RDW-SD (test code = 25523-5) 41.8 fL 39.0-49.9 RDW-CV (test code = 788-0) 12.8 % 12.0-15.5 PLT (test code = 777-3) See_Comment [Automated [employer]] The system which generated this result transmitted reference range: 166 - 358 10*3/?L. The reference range was not used to interpret this result as normal/abnormal. MPV (test code = 93967-5) 11.2 fL 9.5-12.9 NRBC/100 WBC (test code = 2400514473) See_Comment [Automated me ssage] The system which generated this result transmitted reference range: 0.0 - 10.0 /100 WBCs. The reference range was not used to interpret this result as normal/abnormal. NRBC x10^3 (test code = 7231158837) <0.01 See_Comment [Automated me ssage] The system which generated this result transmitted reference range: 10*3/?L. The reference range was not used to interpret this result as normal/abnormal. GRAN MAT (NEUT) % (test code = 770-8) 54.0 % IMM GRAN % (test code = 8347084280) 0.70 % LYMPH % (test code = 736-9) 36.2 % MONO % (test code = 5905-5) 6.0 % EOS % (test code = 713-8) 2.8 % BASO % (test code = 706-2) 0.3 % GRAN MAT x10^3(ANC) (test code = 2491106962) 3.13 10*3/uL 1.88-7.09 IMM GRAN x10^3 (test code = 9770111893) 0.04 10*3/uL 0.00-0.06 LYMPH x10^3 (test code = 731-0) 2.10 10*3/uL 1.32-3.29 MONO x10^3 (test code = 742-7) 0.35 10*3/uL 0.33-0.92 EOS x10^3 (test code = 711-2) 0.16 10*3/uL 0.03-0.39 BASO x10^3 (test code = 704-7) <0.03 0.01-0.07 [facility] WITH IGVSDGLNCTMX9767-66-20 01:35:00* Test Item Value Reference Range Interpretation [...] 34.7 g/dL 31.6-35.1 RDW-SD (test code = 23945-9) 40.8 fL 39-49.9 RDW-CV (test code = 788-0) 12.5 % 12-15.5 PLT (test code = 777-3) See_Comment [Automated [employer]] The system which generated this result transmitted reference range: 166 - 358 10*3/?L. The reference range was not used to interpret this result as normal/abnormal. MPV (test code = 90937-8) 11.0 fL 9.5-12.9 IPF % (test code = 5058778132) 5.7 % 1.3-7.7 Platelet count measured by fluorescence method. NRBC/100 WBC (test code = 6008320911) See_Comment [Automated [employer] ss[employer]] The system which generated this result transmitted reference range: 0.0 - 10.0 /100 WBCs. The reference range was not used to interpret this result as normal/abnormal. NRBC x10^3 (test code = 5665824200) <0.01 See_Comment [Automated [employer]] The system which generated this result transmitted reference range: 10*3/?L. The reference range was not used to interpret this result as normal/abnormal. GRAN MAT (NEUT) % (test code = 770-8) 60.2 % IMM GRAN % (test code = 9608262529) 1.60 % LYMPH % (test code = 736-9) 29.4 % MONO % (test code = 5905-5) 6.2 % EOS % (test code = 713-8) 2.3 % BASO % (test code = 706-2) 0.3 % GRAN MAT x10^3(ANC) (test code = 8280013801) 5.31 10*3/uL 1.88-7.09 IMM GRAN x10^3 (test code = 8935206499) 0.14 10*3/uL 0-0.06 H LYMPH x10^3 (test code = 731-0) 2.59 10*3/uL 1.32-3.29 MONO x10^3 (test code = 742-7) 0.55 10*3/uL 0.33-0.92 EOS x10^3 (test code = 711-2) 0.20 10*3/uL 0.03-0.39 BASO x10^3 (test code = 704-7) 0.03 10*3/uL 0.01-0.07 Lab Interpretation (test code = 07781-4) [facility] - IN[facility] A & B DIRECT [id number] 01:26:00* Test Item Value Reference Range Interpretation Comme nts Influenza A (test code = 74507-2) Negative Negative Influenza B (test code = 69843-3) Negative Negative Lab Interpretation (test cod e = 19654-1) Normal [facility] Metabolic Panel (NA, K, CL, CO2, GLUCOSE, BUN, CREATININE, CA)2019-07-28 01:21:00* Test Item Value Reference Range Interpretation Comme nts NA (test code = 0623005749) 137 mmol/L 135-145 K (test code = 7524098332) 3.8 mmol/L 3.5-5 CL (test code = 8096254677) 100 mmol/L 98-108 CO2 TOTAL (test code = 1000288169) 24 mmol/L 23-31 AGAP (test code = 9041843694) 2-16 BUN (test code = 0228512662) 13 mg/dL 7-23 GLUCOSE (test code = 9227715761) 245 mg/dL 70-110 H CREATININE (test code = 3325338655) 0.49 mg/dL 0.5-1.04 L CALCIUM (test code = 2250242856) 9.8 mg/dL 8.6-10.6 eGFR Calculation (Non-) (test code = 9806533831) mL/min/1.73m2 eGFR Calculation () (test code = 6996632080) mL/min/1.73m2 MADISYN (test code = MADISYN) Association [...] imaging tests). Lab Interpretation (test code = 81390-8) [facility] (ALB, T.PRO, BILI T, BU/BC, ALT, AST, ALK PHOS)2019-07-28 01:21:00* Test Item Value Reference Range Interpretation Comme nts TOTAL BILI (test code = 5700939915) 0.3 mg/dL 0.1-1.1 BILI UNCON (test code = 9436738032) 0.1 mg/dL 0.1-1.1 BILI CONJ (test code = 2555272174) 0.0 mg/dL 0-0.3 T PROTEIN (test code = 6919547849) 8.2 g/dL 6.3-8.2 ALBUMIN (test code = 3559269795) 5.0 g/dL 3.5-5 ALK PHOS (test code = 2096461949) 121 U/L 34-122 ALTv (test code = 1742-6) 33 U/L 5-35 AST(SGOT) (test code = 8700448630) 30 U/L 13-40 Lab Interpretation (test cod e = 60095-0) [facility] [id number] 01:19:00* Test Item Value Reference Range Interpretation Comme nts Streptococcus pyogenes (grou p A) antigen (test code = 82190-3) Negative Negative Lab Interpretation (test cod e = 92649-6) Normal [facility] CHEST 2 [id number] 00:53:20Impression: No acute cardiopulmonary changes. Small sized [...] are unremarkable. Smallsized hiatal hernia is present. Nvmb, Radiant Results Inft User - 07/27/2019 6:54 [...] reviewed this study and agree withthe above report.[facility] (NA, K, CL, CO2, GLUCOSE, BUN, CREATININE, CA)2019-03-11 20:52:00* Test Item Value Reference Range Interpretation Comme nts NA (test code = 0566351530) 141 mmol/L 135-145 K (test code = 1710542188) 3.6 mmol/L 3.5-5 CL (test code = 4735320870) 104 mmol/L 98-108 CO2 TOTAL (test code = 5856349343) 24 mmol/L 23-31 AGAP (test code = 4002987596) 2-16 BUN (test code = 9650020903) 19 mg/dL 7-23 GLUCOSE (test code = 6680684983) 161 mg/dL 70-110 H CREATININE (test code = 5432906374) 0.51 mg/dL 0.5-1.04 CALCIUM (test code = 1683977027) 9.4 mg/dL 8.6-10.6 eGFR Calculation (Non-) (test code = 3290088420) mL/min/1.73m2 eGFR Calculation () (test code = 7368243350) mL/min/1.73m2 MADISYN (test code = MADISYN) Association [...] imaging tests). Lab Interpretation (test code = 10393-8) Abnormal [facility] (ALB, T.PRO, BILI T, BU/BC, ALT, AST, ALK PHOS)2019-03-11 20:52:00* Test Item Value Reference Range Interpretation Comme nts TOTAL BILI (test code = 4373070691) 0.6 mg/dL 0.1-1.1 BILI UNCON (test code = 9987705643) 0.5 mg/dL 0.1-1.1 BILI CONJ (test code = 1609679653) 0.0 mg/dL 0-0.3 T PROTEIN (test code = 1295447294) 7.7 g/dL 6.3-8.2 ALBUMIN (test code = 0456206403) 4.9 g/dL 3.5-5 ALK PHOS (test code = 5473231352) 61 U/L 34-122 ALT(SGPT) (test code = 6359908401) 26 U/L 9-51 AST(SGOT) (test code = 9646342335) 28 U/L 13-40 Lab Interpretation (test cod e = 36044-8) Normal [facility] Brook[facility]ase [id number] 20:52:00* Test Item Value Reference Range Interpretation Comme [facility] LIPASE (test code = 4592445243) 22 U/L 0-220 Lab Interpretation (test cod e = 80309-8) Normal [facility]PTT2019-09-05 20:40:00* Test Item Value Reference Range Interpretation Comme [facility] APTT Patient (test code = 3173-2) See_Comment L [Automated message] The system which generated this result transmitted reference range: 23 - 38 Seconds. The reference range was not used to interpret this result as normal/abnormal. MADISYN (test code = MADISYN) The [facility] [place] patient population mean normal value for aPTT is 30 seconds. Lab Interpretation (test code = 76749-8) Abnormal [facility] Brook[facility]thrombin Time (PT) / [id number] 20:38:00 * Test Item Value Reference Range Interpretation Comme [facility] PROTIME PATIENT (test code = [...] the indications. Lab Interpretation (test code = 23717-7) Normal [facility] WITH [id number] 20:33:00* Test Item Value Reference Range Interpretation [...] 34.0 g/dL 31.6-35.1 RDW-SD (test code = 60050-6) 44.3 fL 39-49.9 RDW-CV (test code = 788-0) 12.9 % 12-15.5 PLT (test code = 777-3) See_Comment [Automated messa ge] The system which generated this result transmitted reference range: 166 - 358 10*3/?L. The reference range was not used to interpret this result as normal/abnormal. MPV (test code = 94803-7) 10.9 fL 9.5-12.9 NRBC/100 WBC (test code = 9720484679) See_Comment [Automated [employer]kl[employer] ssage] The system which generated this result transmitted reference range: 0.0 - 10.0 /100 WBCs. The reference range was not used to interpret this result as normal/abnormal. NRBC x10^3 (test code = 1505437617) <0.01 See_Comment [Automated messa ge] The system which generated this result transmitted reference range: 10*3/?L. The reference range was not used to interpret this result as normal/abnormal. GRAN MAT (NEUT) % (test code = 770-8) 86.3 % IMM GRAN % (test code = 5849595190) 0.50 % LYMPH % (test code = 736-9) 8.8 % MONO % (test code = 5905-5) 4.0 % EOS % (test code = 713-8) 0.2 % BASO % (test code = 706-2) 0.2 % GRAN MAT x10^3(ANC) (test code = 1352238455) 8.24 10*3/uL 1.88-7.09 H IMM GRAN x10^3 (test code = 2608526161) 0.05 10*3/uL 0-0.06 LYMPH x10^3 (test code = 731-0) 0.84 10*3/uL 1.32-3.29 L MONO x10^3 (test code = 742-7) 0.38 10*3/uL 0.33-0.92 EOS x10^3 (test code = 711-2) <0.03 0.03-0.39 L BASO x10^3 (test code = 704-7) <0.03 0.01-0.07 Lab Interpretation (test code = 83685-5) Abnormal [facility] Notes Upcoming Encounters Date/Time Note Provider Source Health Maintenance Due Date Last Done Comments Bone Density Scan 1959 CT Colonography 1959 Colonoscopy 1959 Colorectal Cancer Screening 1959 FIT-DNA 1959 FIT 1959 FOBT 1959 Lipid Panel 1959 Medicare Initial Physical (IPPE) 1959 Sigmoidoscopy 1959 Annual Physical 1962 DTaP/Tdap/Td Vaccines (1 - Tdap) 1978 Pap Smear 1980 Cervical Cancer Screening 1989 HPV/Cotest 1989 Mammogram 1999 Zoster Vaccines (1 of 2) 2009 Influenza Vaccine (#1) 2024 Pneumococcal Vaccine: 65+ Ye ars (1 of 1 - PCV) 2024 Respiratory Syncytial Virus (RSV) or >=60 (1 - 1-dose 75+ series) 2034 HIB Vaccines Aged Out No longer eligi ble based on patient's age to complete this topic HPV Vaccines Aged Out No longer eligi ble based on patient's age to complete this topic Hepatitis A Vaccines Aged Out No long er eligible based on patient's age to complete this topic Hepatitis B Vaccines Aged Out No long er eligible based on patient's age to complete this topic IPV Vaccines Aged Out No longer eligi ble based on patient's age to complete this topic Meningococcal Vaccine Aged Out No mahendra inna eligible based on patient's age to complete this topic Rotavirus Vaccines Aged Out No longer eligible based on patient's age to complete this topic [facility]fmq[facility]r0038-58-93 00:17:28 [facility] CenterMhzgqla9768-95-56 12:15:22Upcoming Encounters Health Maintenance Due Date Last Done Comments Bone Density Scan 1959 CT Colonography 1959 Colonoscopy 1959 Colorectal Cancer Screening 1959 FIT-DNA 1959 FIT 1959 FOBT 1959 Lipid Panel 1959 Medicare Initial Physical (IPPE) 1959 Sigmoidoscopy 1959 Annual Physical 1962 DTaP/Tdap/Td Vaccines (1 - Tdap) 1978 Pap Smear 1980 Cervical Cancer Screening 1989 HPV/Cotest 1989 Mammogram 1999 Zoster Vaccines (1 of 2) 2009 Influenza Vaccine (#1) 2024 Pneumococcal Vaccine: 65+ Ye ars (1 of 1 - PCV) 2024 Respiratory Syncytial Virus (RSV) or >=60 (1 - 1-dose 75+ series) 2034 HIB Vaccines Aged Out No longer eligi ble based on patient's age to complete this topic HPV Vaccines Aged Out No longer eligi ble based on patient's age to complete this topic Hepatitis A Vaccines Aged Out No long er eligible based on patient's age to complete this topic Hepatitis B Vaccines Aged Out No long er eligible based on patient's age to complete this topic IPV Vaccines Aged Out No longer eligi ble based on patient's age to complete this topic Meningococcal Vaccine Aged Out No mahendra inna eligible based on patient's age to complete this topic Rotavirus Vaccines Aged Out No longer eligible based on patient's age to complete this topic [facility] CenterCdkxque3802-02-67 12:15:22 Diagnosis Abnormal foot finding - [place] diaz [facility] CenterUdbyiwz7373-37-72 12:15:22 [facility] CenterWgchdim2156-42-37 12:15:22* Hiro Lawrence, BENNY - 05/24/2024 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 Patient denies nausea, vomiting, fever, chills, cough, shortness of breath, chest pain, and calf pain PHYSICAL EXAM OF LOWER EXTREMITY: Vascular: (-) edema, BILATERAL lower extremity (-) ecchymosis (-) erythema (+) 2/4 pedal pulses, bilateral (+) Capillary Refill time: within normal limits (-) varicosities (+) pedal hair growth Neurological: (+) sensation with 5.07 [place] monofilament examination to the most distal lower extremity (-) tinel's sign (-) clonus present. Dermatological: (+) minimal scar formation (-) signs of infection, (-) open wounds, (-) macerations, (-) ischemic tissue, (-) abscess, (-) drainage, (-) mal odor (-) other primary or secondary lesions (+) normal temperature when compared to contralateral limb (+) normal color, tugor, and elasticity. Musculoskeletal: (+) good visual correction from surgical procedure (-) pain on palpation at the surgical site, 5/5 muscle strength to extrinsic pedal muscle groups (-) evidence of compartment syndrome, (-) evidence of deep vein thrombosis X-rays left foot 05/05/2024: (+) Bunion and hammertoe correction, (+) osseous structures well with good fusion ASSESSMENT: S/P LEFT Wright BUNIONECTOMY, 2ND DIPJ FUSION, APRIL 14, 2024 TREATMENT PLAN: - Extensive visit discussing possible post-op complications - surgical site healing as expected - antibiotics - completed as directed - Pain - Well controlled - Wound -apply vitamin E for scar reduction s - sutures - remove 05/03 without complications - pin -Removed 05/19 without complications - X-RAYS- reviewed - Dressing -not indicated - Weight bearing -partial weightbearing in well supportive shoes - DVT prophylaxis - AGAIN educated about non-weight bearing exercises -Physical therapy-ORDERED 05/24/2024 - Return 4 weeks after physical therapy completed Patient advised to report to my clinic or the emergency room immediately with any questions or concerns. Discussion: A detailed discussion was provided to the patient with specific reference to etiology, pathology, alternate treatment options, and prognosis. All risks and complications (including side effects) with each treatment/medication alternative were outlined in detail including but not limited to: Pain, swelling, numbness, loss of function, loss of limb, bleeding, hematoma, [...] results of non-treatment, and the patient or thelegally responsible person has agreed to proceed. [place] [id number] 12:15:22Upcoming Encounters Health Maintenance Due Date Last Done Comments Bone Density Scan 1959 CT Colonography 1959 Colonoscopy 1959 Colorectal Cancer Screening 1959 FIT-DNA 1959 FIT 1959 FOBT 1959 Lipid Panel 1959 Medicare Initial Physical (IPPE) 1959 Sigmoidoscopy 1959 Annual Physical 1962 DTaP/Tdap/Td Vaccines (1 - Tdap) 1978 Pap Smear 1980 Cervical Cancer Screening 1989 HPV/Cotest 1989 Mammogram 1999 Zoster Vaccines (1 of 2) 2009 Influenza Vaccine (#1) 2024 Pneumococcal Vaccine: 65+ Ye ars (1 of 1 - PCV) 2024 Respiratory Syncytial Virus (RSV) or >=60 (1 - 1-dose 75+ series) 2034 HIB Vaccines Aged Out No longer eligi ble based on patient's age to complete this topic HPV Vaccines Aged Out No longer eligi ble based on patient's age to complete this topic Hepatitis A Vaccines Aged Out No long er eligible based on patient's age to complete this topic Hepatitis B Vaccines Aged Out No long er eligible based on patient's age to complete this topic IPV Vaccines Aged Out No longer eligi ble based on patient's age to complete this topic Meningococcal Vaccine Aged Out No mahendra inna eligible based on patient's age to complete this topic Rotavirus Vaccines Aged Out No longer eligible based on patient's age to complete this topic [facility] CenterXadosoi0943-40-85 12:15:22 Diagnosis Abnormal foot finding - Prim emily [facility] CenterLtntzor0490-93-56 12:15:22 [place] [id number] 12:15:22* Hiro Lawrence, BENNY - 05/24/2024 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 Patient denies nausea, vomiting, fever, chills, cough, shortness of breath, chest pain, and calf pain PHYSICAL EXAM OF LOWER EXTREMITY: Vascular: (-) edema, BILATERAL lower extremity (-) ecchymosis (-) erythema (+) 2/4 pedal pulses, bilateral (+) Capillary Refill time: within normal limits (-) varicosities (+) pedal hair growth Neurological: (+) sensation with 5.07 [place] monofilament examination to the most distal lower extremity (-) tinel's sign (-) clonus present. Dermatological: (+) minimal scar formation (-) signs of infection, (-) open wounds, (-) macerations, (-) ischemic tissue, (-) abscess, (-) drainage, (-) mal odor (-) other primary or secondary lesions (+) normal temperature when compared to contralateral limb (+) normal color, tugor, and elasticity. Musculoskeletal: (+) good visual correction from surgical procedure (-) pain on palpation at the surgical site, 5/5 muscle strength to extrinsic pedal muscle groups (-) evidence of compartment syndrome, (-) evidence of deep vein thrombosis X-rays left foot 05/05/2024: (+) Bunion and hammertoe correction, (+) osseous structures well with good fusion ASSESSMENT: S/P LEFT Wright BUNIONECTOMY, 2ND DIPJ FUSION, APRIL 14, 2024 TREATMENT PLAN: - Extensive visit discussing possible post-op complications - surgical site healing as expected - antibiotics - completed as directed - Pain - Well controlled - Wound -apply vitamin E for scar reduction s - sutures - remove 05/03 without complications - pin -Removed 05/19 without complications - X-RAYS- reviewed - Dressing -not indicated - Weight bearing -partial weightbearing in well supportive shoes - DVT prophylaxis - AGAIN educated about non-weight bearing exercises -Physical therapy-ORDERED 05/24/2024 - Return 4 weeks after physical therapy completed Patient advised to report to my clinic or the emergency room immediately with any questions or concerns. Discussion: A detailed discussion was provided to the patient with specific reference to etiology, pathology, alternate treatment options, and prognosis. All risks and complications (including side effects) with each treatment/medication alternative were outlined in detail including but not limited to: Pain, swelling, numbness, loss of function, loss of limb, bleeding, hematoma, [...] results of non-treatment, and the patient or thelegally responsible person has agreed to proceed. L PLATER [facility] CenterDkzrrkk6360-69-57 12:11:10* Hiro Lawrence DPM - 05/19/2024 11:30 AM METAL PLATER CHIEF COMPLAINT S/P LEFT Wright BUNIONECTOMY, 2ND DIPJ FUSION, APRIL 14, 2024 HISTORY OF PRESENT ILLNESS: Patient states pain is well controlled without medication Patient has completed taking antibiotics Patient has been keeping the foot elevated in boot using crutches, knee scooter without complications Patient has kept dressing clean dry and intact Patient denies local and systemic signs of infection. Patient denies nausea, vomiting, fever, chills, cough, shortness of breath, chest pain, and calf pain PHYSICAL EXAM OF LOWER EXTREMITY: Vascular: (-) edema, BILATERAL lower extremity (-) ecchymosis (-) erythema (+) 2/4 pedal pulses, bilateral (+) Capillary Refill time: within normal limits (-) varicosities (+) pedal hair growth Neurological: (+) sensation with 5.07 [place] monofilament examination to the most distal lower extremity (-) tinel's sign (-) clonus present. Dermatological: (+) minimal scar formation (+) pin intact, 2nd digit (-) signs of infection, (-) open wounds, (-) macerations, (-) ischemic tissue, (-) abscess, (-) drainage, (-) mal odor (-) other primary or secondary lesions (+) normal temperature when compared to contralateral limb (+) normal color, tugor, and elasticity. Musculoskeletal: (+) good visual correction from surgical procedure (+) mild pain on palpation at the surgical site, as expected 5/5 muscle strength to extrinsic pedal muscle groups (-) evidence of compartment syndrome, (-) evidence of deep vein thrombosis X-rays left foot 05/05/2024: (+) Bunion and hammertoe correction, (+) osseous structures well with good fusion ASSESSMENT: S/P LEFT Wright BUNIONECTOMY, 2ND DIPJ FUSION, APRIL 14, 2024 TREATMENT PLAN: - Extensive visit discussing possible post-op complications - surgical site healing as expected - antibiotics - completed as directed - Pain - Well controlled - Wound - Surgical site cleansed in a sterile fashion, applied antibiotic medication, dry sterile dressing, and fracture boot - sutures - remove 05/03 without complications - pin -Removed 05/19 without complications - X-RAYS- reviewed - Dressing - instructions provided - Weight bearing - NONE, continue with Durable Medical Equipment, patient states no complications with mobilization using devices - DVT prophylaxis - AGAIN educated about non-weight bearing exercises - Return 2 weeks for routine postop eval Patient advised to report to my clinic or the emergency room immediately with any questions or concerns. Discussion: A detailed discussion was provided to the patient with specific reference to etiology, pathology, alternate treatment options, and prognosis. All risks and complications (including side effects) with each treatment/medication alternative were outlined in detail including but not limited to: Pain, swelling, numbness, loss of function, loss of limb, bleeding, hematoma, [...] results of non-treatment, and the patient or thelegally responsible person has agreed to proceed. [facility]2024-11-13 12:11:10Upcoming Encounters Health Maintenance Due Date Last Done Comments Bone Density Scan 1959 CT Colonography 1959 Colonoscopy 1959 Colorectal Cancer Screening 1959 FIT-DNA 1959 FIT 1959 FOBT 1959 Lipid Panel 1959 Medicare Initial Physical (IPPE) 1959 Sigmoidoscopy 1959 Annual Physical 1962 DTaP/Tdap/Td Vaccines (1 - Tdap) 1978 Pap Smear 1980 Cervical Cancer Screening 1989 HPV/Cotest 1989 Mammogram 1999 Zoster Vaccines (1 of 2) 2009 Influenza Vaccine (#1) 2024 Pneumococcal Vaccine: 65+ Ye ars (1 of 1 - PCV) 2024 Respiratory Syncytial Virus (RSV) or >=60 (1 - 1-dose 75+ series) 2034 HIB Vaccines Aged Out No longer eligi ble based on patient's age to complete this topic HPV Vaccines Aged Out No longer eligi ble based on patient's age to complete this topic Hepatitis A Vaccines Aged Out No long er eligible based on patient's age to complete this topic Hepatitis B Vaccines Aged Out No long er eligible based on patient's age to complete this topic IPV Vaccines Aged Out No longer eligi ble based on patient's age to complete this topic Meningococcal Vaccine Aged Out No mahendra inna eligible based on patient's age to complete this topic Rotavirus Vaccines Aged Out No longer eligible based on patient's age to complete this topic [facility] CenterUroflic1696-26-25 12:11:10 Diagnosis Abnormal foot finding - Prim emily [facility] CenterHkthdgf1869-32-85 12:11:10 [facility] CenterRckzxxh0169-14-67 12:11:10* Hiro Lawrence, ANNA - 05/19/2024 11:30 AM METAL PLATER CHIEF COMPLAINT S/P LEFT Wright BUNIONECTOMY, 2ND DIPJ FUSION, APRIL 14, 2024 HISTORY OF PRESENT ILLNESS: Patient states pain is well controlled without medication Patient has completed taking antibiotics Patient has been keeping the foot elevated in boot using crutches, knee scooter without complications Patient has kept dressing clean dry and intact Patient denies local and systemic signs of infection. Patient denies nausea, vomiting, fever, chills, cough, shortness of breath, chest pain, and calf pain PHYSICAL EXAM OF LOWER EXTREMITY: Vascular: (-) edema, BILATERAL lower extremity (-) ecchymosis (-) erythema (+) 2/4 pedal pulses, bilateral (+) Capillary Refill time: within normal limits (-) varicosities (+) pedal hair growth Neurological: (+) sensation with 5.07 [place] monofilament examination to the most distal lower extremity (-) tinel's sign (-) clonus present. Dermatological: (+) minimal scar formation (+) pin intact, 2nd digit (-) signs of infection, (-) open wounds, (-) macerations, (-) ischemic tissue, (-) abscess, (-) drainage, (-) mal odor (-) other primary or secondary lesions (+) normal temperature when compared to contralateral limb (+) normal color, tugor, and elasticity. Musculoskeletal: (+) good visual correction from surgical procedure (+) mild pain on palpation at the surgical site, as expected 5/5 muscle strength to extrinsic pedal muscle groups (-) evidence of compartment syndrome, (-) evidence of deep vein thrombosis X-rays left foot 05/05/2024: (+) Bunion and hammertoe correction, (+) osseous structures well with good fusion ASSESSMENT: S/P LEFT Wright BUNIONECTOMY, 2ND DIPJ FUSION, APRIL 14, 2024 TREATMENT PLAN: - Extensive visit discussing possible post-op complications - surgical site healing as expected - antibiotics - completed as directed - Pain - Well controlled - Wound - Surgical site cleansed in a sterile fashion, applied antibiotic medication, dry sterile dressing, and fracture boot - sutures - remove 05/03 without complications - pin -Removed 05/19 without complications - X-RAYS- reviewed - Dressing - instructions provided - Weight bearing - NONE, continue with Durable Medical Equipment, patient states no complications with mobilization using devices - DVT prophylaxis - AGAIN educated about non-weight bearing exercises - Return 2 weeks for routine postop eval Patient advised to report to my clinic or the emergency room immediately with any questions or concerns. Discussion: A detailed discussion was provided to the patient with specific reference to etiology, pathology, alternate treatment options, and prognosis. All risks and complications (including side effects) with each treatment/medication alternative were outlined in detail including but not limited to: Pain, swelling, numbness, loss of function, loss of limb, bleeding, hematoma, [...] results of non-treatment, and the patient or thelegally responsible person has agreed to proceed. [facility]2024-11-13 12:11:10Upcoming Encounters Health Maintenance Due Date Last Done Comments Bone Density Scan 1959 CT Colonography 1959 Colonoscopy 1959 Colorectal Cancer Screening 1959 FIT-DNA 1959 FIT 1959 FOBT 1959 Lipid Panel 1959 Medicare Initial Physical (IPPE) 1959 Sigmoidoscopy 1959 Annual Physical 1962 DTaP/Tdap/Td Vaccines (1 - Tdap) 1978 Pap Smear 1980 Cervical Cancer Screening 1989 HPV/Cotest 1989 Mammogram 1999 Zoster Vaccines (1 of 2) 2009 Influenza Vaccine (#1) 2024 Pneumococcal Vaccine: 65+ Ye ars (1 of 1 - PCV) 2024 Respiratory Syncytial Virus (RSV) or >=60 (1 - 1-dose 75+ series) 2034 HIB Vaccines Aged Out No longer eligi ble based on patient's age to complete this topic HPV Vaccines Aged Out No longer eligi ble based on patient's age to complete this topic Hepatitis A Vaccines Aged Out No long er eligible based on patient's age to complete this topic Hepatitis B Vaccines Aged Out No long er eligible based on patient's age to complete this topic IPV Vaccines Aged Out No longer eligi ble based on patient's age to complete this topic Meningococcal Vaccine Aged Out No mahendra inna eligible based on patient's age to complete this topic Rotavirus Vaccines Aged Out No longer eligible based on patient's age to complete this topic [facility]Kerjigp4146-94-63 12:11:10 Diagnosis Abnormal foot finding - Prim emily [facility] CenterOosvicn4375-18-72 12:11:10 [facility] CenterLqcccmt3638-29-69 23:57:41Upcoming Encounters Health Maintenance Due Date Last Done Comments CT Colonography 1959 Colonoscopy 1959 Colorectal Cancer Screening 1959 FIT-DNA 1959 FIT 1959 FOBT 1959 Lipid Panel 1959 Medicare Initial Physical (IPPE) 1959 Sigmoidoscopy 1959 DTaP/Tdap/Td Vaccines (1 - Tdap) 1978 Pap Smear 1980 Cervical Cancer Screening 1989 HPV/Cotest 1989 Mammogram 1999 Zoster Vaccines (1 of 2) 2009 Respiratory Syncytial Virus (RSV) or >=60 (1 - 1-dose 60+ series) 2019 Influenza Vaccine (#1) 2024 HIB Vaccines Aged Out No longer eligi ble based on patient's age to complete this topic HPV Vaccines Aged Out No longer eligi ble based on patient's age to complete this topic Hepatitis A Vaccines Aged Out No long er eligible based on patient's age to complete this topic Hepatitis B Vaccines Aged Out No long er eligible based on patient's age to complete this topic IPV Vaccines Aged Out No longer eligi ble based on patient's age to complete this topic Meningococcal Vaccine Aged Out No mahendra inna eligible based on patient's age to complete this topic Pneumococcal Vaccine: Pediat rics (0 to 5 Years) and At-Risk Patients (6 to 64 Years) Aged Out No longer eligible b ased on patient's age to complete this topic Rotavirus Vaccines Aged Out No longer eligible based on patient's age to complete this topic [id number] 23:57:41 [facility] CenterHunggyp2017-52-62 12:02:47* Hiro Lawrence, DPM - 05/03/2024 11:20 AM CDT CHIEF COMPLAINT S/P LEFT Wright BUNIONECTOMY, 2ND DIPJ FUSION, APRIL 14, 2024 HISTORY OF PRESENT ILLNESS: Patient states pain is well controlled without medication Patient has completed taking antibiotics Patient has been keeping the foot elevated in boot using crutches, knee scooter without complications Patient has kept dressing clean dry and intact Patient denies local and systemic signs of infection. Patient denies nausea, vomiting, fever, chills, cough, shortness of breath, chest pain, and calf pain PHYSICAL EXAM OF LOWER EXTREMITY: Vascular: (-) edema, BILATERAL lower extremity (-) ecchymosis (-) erythema (+) 2/4 pedal pulses, bilateral (+) Capillary Refill time: within normal limits (-) varicosities (+) pedal hair growth Neurological: (+) sensation with 5.07 [place] monofilament examination to the most distal lower extremity (-) tinel's sign (-) clonus present. Dermatological: (+) sutures intact, (+) skin margins well aligned after suture removal (+) pin intact, 2nd digit (-) signs of infection, (-) open wounds, (-) macerations, (-) ischemic tissue, (-) abscess, (-) drainage, (-) mal odor (-) other primary or secondary lesions (+) normal temperature when compared to contralateral limb (+) normal color, tugor, and elasticity. Musculoskeletal: (+) good visual correction from surgical procedure (+) mild pain on palpation at the surgical site, as expected 5/5 muscle strength to extrinsic pedal muscle groups (-) evidence of compartment syndrome, (-) evidence of deep vein thrombosis ASSESSMENT: S/P LEFT Wright BUNIONECTOMY, 2ND DIPJ FUSION, APRIL 14, 2024 TREATMENT PLAN: - Extensive visit discussing possible post-op complications - surgical site healing as expected - antibiotics - completed as directed - Pain - Well controlled - Wound - Surgical site cleansed in a sterile fashion, applied antibiotic medication, dry sterile dressing, and fracture boot - sutures - remove 05/03 without complications - [id number] 05/03, ROUTINE POSTOP - Dressing - instructions provided - Weight bearing - NONE, continue with Durable Medical Equipment, patient states no complications with mobilization using devices - DVT prophylaxis - AGAIN educated about non-weight bearing exercises - Return 2 weeks for likely pin removal Patient advised to report to my clinic or the emergency room immediately with any questions or concerns. Discussion: A detailed discussion was provided to the patient with specific reference to etiology, pathology, alternate treatment options, and prognosis. All risks and complications (including side effects) with each treatment/medication alternative were outlined in detail including but not limited to: Pain, swelling, numbness, loss of function, loss of limb, bleeding, hematoma, [...] results of non-treatment, and the patient or thelegally responsible person has agreed to proceed. OR MANUEL [facility] [id number] 12:02:47Upcoming Encounters Health Maintenance Due Date Last Done Comments CT Colonography 1959 Colonoscopy 1959 Colorectal Cancer Screening 1959 FIT-DNA 1959 FIT 1959 FOBT 1959 Lipid Panel 1959 Medicare Initial Physical (IPPE) 1959 Sigmoidoscopy 1959 DTaP/Tdap/Td Vaccines (1 - Tdap) 1978 Pap Smear 1980 Cervical Cancer Screening 1989 HPV/Cotest 1989 Mammogram 1999 Zoster Vaccines (1 of 2) 2009 Respiratory Syncytial Virus (RSV) or >=60 (1 - 1-dose 60+ series) 2019 Influenza Vaccine (#1) 2024 HIB Vaccines Aged Out No longer eligi ble based on patient's age to complete this topic HPV Vaccines Aged Out No longer eligi ble based on patient's age to complete this topic Hepatitis A Vaccines Aged Out No long er eligible based on patient's age to complete this topic Hepatitis B Vaccines Aged Out No long er eligible based on patient's age to complete this topic IPV Vaccines Aged Out No longer eligi ble based on patient's age to complete this topic Meningococcal Vaccine Aged Out No mahendra inna eligible based on patient's age to complete this topic Pneumococcal Vaccine: Pediat rics (0 to 5 Years) and At-Risk Patients (6 to 64 Years) Aged Out No longer eligible b ased on patient's age to complete this topic Rotavirus Vaccines Aged Out No longer eligible based on patient's age to complete this topic [facility] CenterZcfwwlx2027-84-19 12:02:47 Diagnosis Abnormal foot finding - [place] diaz [facility] CenterLxkfgqq1941-65-07 12:02:47 [facility] CenterOtdhsha6849-80-89 12:02:47* Hiro Lawrence, [facility] - 05/03/2024 11:20 AM CDT CHIEF COMPLAINT S/P LEFT Wright BUNIONECTOMY, 2ND DIPJ FUSION, APRIL 14, 2024 HISTORY OF PRESENT ILLNESS: Patient states pain is well controlled without medication Patient has completed taking antibiotics Patient has been keeping the foot elevated in boot using crutches, knee scooter without complications Patient has kept dressing clean dry and intact Patient denies local and systemic signs of infection. Patient denies nausea, vomiting, fever, chills, cough, shortness of breath, chest pain, and calf pain PHYSICAL EXAM OF LOWER EXTREMITY: Vascular: (-) edema, BILATERAL lower extremity (-) ecchymosis (-) erythema (+) 2/4 pedal pulses, bilateral (+) Capillary Refill time: within normal limits (-) varicosities (+) pedal hair growth Neurological: (+) sensation with 5.07 [place] monofilament examination to the most distal lower extremity (-) tinel's sign (-) clonus present. Dermatological: (+) sutures intact, (+) skin margins well aligned after suture removal (+) pin intact, 2nd digit (-) signs of infection, (-) open wounds, (-) macerations, (-) ischemic tissue, (-) abscess, (-) drainage, (-) mal odor (-) other primary or secondary lesions (+) normal temperature when compared to contralateral limb (+) normal color, tugor, and elasticity. Musculoskeletal: (+) good visual correction from surgical procedure (+) mild pain on palpation at the surgical site, as expected 5/5 muscle strength to extrinsic pedal muscle groups (-) evidence of compartment syndrome, (-) evidence of deep vein thrombosis ASSESSMENT: S/P LEFT Wright BUNIONECTOMY, 2ND DIPJ FUSION, APRIL 14, 2024 TREATMENT PLAN: - Extensive visit discussing possible post-op complications - surgical site healing as expected - antibiotics - completed as directed - Pain - Well controlled - Wound - Surgical site cleansed in a sterile fashion, applied antibiotic medication, dry sterile dressing, and fracture boot - sutures - remove 05/03 without complications - [id number] 05/03, ROUTINE POSTOP - Dressing - instructions provided - Weight bearing - NONE, continue with Durable Medical Equipment, patient states no complications with mobilization using devices - DVT prophylaxis - AGAIN educated about non-weight bearing exercises - Return 2 weeks for likely pin removal Patient advised to report to my clinic or the emergency room immediately with any questions or concerns. Discussion: A detailed discussion was provided to the patient with specific reference to etiology, pathology, alternate treatment options, and prognosis. All risks and complications (including side effects) with each treatment/medication alternative were outlined in detail including but not limited to: Pain, swelling, numbness, loss of function, loss of limb, bleeding, hematoma, [...] results of non-treatment, and the patient or thelegally responsible person has agreed to proceed. Nellie [facility] [id number] 12:02:47Upcoming Encounters Health Maintenance Due Date Last Done Comments CT Colonography 1959 Colonoscopy 1959 Colorectal Cancer Screening 1959 FIT-DNA 1959 FIT 1959 FOBT 1959 Lipid Panel 1959 Medicare Initial Physical (IPPE) 1959 Sigmoidoscopy 1959 DTaP/Tdap/Td Vaccines (1 - Tdap) 1978 Pap Smear 1980 Cervical Cancer Screening 1989 HPV/Cotest 1989 Mammogram 1999 Zoster Vaccines (1 of 2) 2009 Respiratory Syncytial Virus (RSV) or >=60 (1 - 1-dose 60+ series) 2019 Influenza Vaccine (#1) 2024 HIB Vaccines Aged Out No longer eligi ble based on patient's age to complete this topic HPV Vaccines Aged Out No longer eligi ble based on patient's age to complete this topic Hepatitis A Vaccines Aged Out No long er eligible based on patient's age to complete this topic Hepatitis B Vaccines Aged Out No long er eligible based on patient's age to complete this topic IPV Vaccines Aged Out No longer eligi ble based on patient's age to complete this topic Meningococcal Vaccine Aged Out No mahendra inna eligible based on patient's age to complete this topic Pneumococcal Vaccine: Pediat rics (0 to 5 Years) and At-Risk Patients (6 to 64 Years) Aged Out No longer eligible b ased on patient's age to complete this topic Rotavirus Vaccines Aged Out No longer eligible based on patient's age to complete this topic [facility] CenterMmwehqd3206-29-20 12:02:47 Diagnosis Abnormal foot finding - Prim emiyl [facility] CenterPodmysf6820-23-32 12:02:47 [facility] CenterYngehxi6714-72-60 11:40:49 [facility] CenterNsnlcls1515-46-68 11:40:49 [facility] CenterAgekcgy6602-27-79 13:20:41* Hiro Lawrence, BENNY - 04/26/2024 12:00 PM CDT CHIEF COMPLAINT S/P LEFT Wright BUNIONECTOMY, 2ND DIPJ FUSION, APRIL 14, 2024 HISTORY OF PRESENT ILLNESS: Patient states pain is well controlled with medication Patient has been taking antibiotics Patient has been keeping the foot elevated in boot using knee scooter without complications Patient has kept dressing clean dry and intact Patient denies local and systemic signs of infection. Patient denies nausea, vomiting, fever, chills, cough, shortness of breath, chest pain, and calf pain PHYSICAL EXAM OF LOWER EXTREMITY: Vascular: (-) edema, BILATERAL lower extremity (-) ecchymosis (-) erythema (+) 2/4 pedal pulses, bilateral (+) Capillary Refill time: within normal limits (-) varicosities (+) pedal hair growth Neurological: (+) sensation with 5.07 [place] monofilament examination to the most distal lower extremity (-) tinel's sign (-) clonus present. Dermatological: (+) sutures intact, (+) skin margins well aligned (+) pin intact, 2nd digit (-) signs of infection, (-) open wounds, (-) macerations, (-) ischemic tissue, (-) abscess, (-) drainage, (-) mal odor (-) other primary or secondary lesions (+) normal temperature when compared to contralateral limb (+) normal color, tugor, and elasticity. Musculoskeletal: (+) good visual correction from surgical procedure (+) mild pain on palpation at the surgical site, as expected 5/5 muscle strength to extrinsic pedal muscle groups (-) evidence of compartment syndrome, (-) evidence of deep vein thrombosis ASSESSMENT: S/P LEFT Wright BUNIONECTOMY, 2ND DIPJ FUSION, APRIL 14, 2024 TREATMENT PLAN: - Extensive visit discussing possible post-op complications - surgical site healing as expected - antibiotics - continue as directed - Pain - Well controlled - Wound - Surgical site cleansed in a sterile fashion, applied antibiotic medication, dry sterile dressing, and fracture boot - Dressing - instructions provided - Weight bearing - NONE, continue with Durable Medical Equipment, patient states no complications with mobilization using devices - DVT prophylaxis - AGAIN educated about non-weight bearing exercises - Return 1 week. Patient advised to report to my clinic or the emergency room immediately with any questions or concerns. Discussion: A detailed discussion was provided to the patient with specific reference to etiology, pathology, alternate treatment options, and prognosis. All risks and complications (including side effects) with each treatment/medication alternative were outlined in detail including but not limited to: Pain, swelling, numbness, loss of function, loss of limb, bleeding, hematoma, [...] results of non-treatment, and the patient or thelegally responsible person has agreed to proceed. [facility] [id number] 13:20:41 [place] [id number] 13:20:41 Diagnosis Abnormal foot finding - Prim emily [facility] CenterNsisdlb1743-58-91 13:20:41 [place] [id number] 13:20:41* Hiro Lawrence DPM - 04/26/2024 12:00 PM CDT CHIEF COMPLAINT S/P LEFT Wright BUNIONECTOMY, 2ND DIPJ FUSION, APRIL 14, 2024 HISTORY OF PRESENT ILLNESS: Patient states pain is well controlled with medication Patient has been taking antibiotics Patient has been keeping the foot elevated in boot using knee scooter without complications Patient has kept dressing clean dry and intact Patient denies local and systemic signs of infection. Patient denies nausea, vomiting, fever, chills, cough, shortness of breath, chest pain, and calf pain PHYSICAL EXAM OF LOWER EXTREMITY: Vascular: (-) edema, BILATERAL lower extremity (-) ecchymosis (-) erythema (+) 2/4 pedal pulses, bilateral (+) Capillary Refill time: within normal limits (-) varicosities (+) pedal hair growth Neurological: (+) sensation with 5.07 [place] monofilament examination to the most distal lower extremity (-) tinel's sign (-) clonus present. Dermatological: (+) sutures intact, (+) skin margins well aligned (+) pin intact, 2nd digit (-) signs of infection, (-) open wounds, (-) macerations, (-) ischemic tissue, (-) abscess, (-) drainage, (-) mal odor (-) other primary or secondary lesions (+) normal temperature when compared to contralateral limb (+) normal color, tugor, and elasticity. Musculoskeletal: (+) good visual correction from surgical procedure (+) mild pain on palpation at the surgical site, as expected 5/5 muscle strength to extrinsic pedal muscle groups (-) evidence of compartment syndrome, (-) evidence of deep vein thrombosis ASSESSMENT: S/P LEFT Wright BUNIONECTOMY, 2ND DIPJ FUSION, APRIL 14, 2024 TREATMENT PLAN: - Extensive visit discussing possible post-op complications - surgical site healing as expected - antibiotics - continue as directed - Pain - Well controlled - Wound - Surgical site cleansed in a sterile fashion, applied antibiotic medication, dry sterile dressing, and fracture boot - Dressing - instructions provided - Weight bearing - NONE, continue with Durable Medical Equipment, patient states no complications with mobilization using devices - DVT prophylaxis - AGAIN educated about non-weight bearing exercises - Return 1 week. Patient advised to report to my clinic or the emergency room immediately with any questions or concerns. Discussion: A detailed discussion was provided to the patient with specific reference to etiology, pathology, alternate treatment options, and prognosis. All risks and complications (including side effects) with each treatment/medication alternative were outlined in detail including but not limited to: Pain, swelling, numbness, loss of function, loss of limb, bleeding, hematoma, [...] results of non-treatment, and the patient or thelegally responsible person has agreed to proceed. [facility] CenterJvqjymd8249-07-49 13:20:41 [facility] CenterUggrzvt9076-26-37 13:20:41 Diagnosis Abnormal foot finding - Prim emily [facility] CenterHarbgqo6478-99-22 13:20:41 [place] [id number] 10:30:59* Hiro Lawrence DPM - 04/21/2024 10:10 AM CDT CHIEF COMPLAINT S/P LEFT Wright BUNIONECTOMY, 2ND DIPJ FUSION, APRIL 14, 2024 HISTORY OF PRESENT ILLNESS: Patient states pain is well controlled with medication Patient has been taking antibiotics Patient has been keeping the foot elevated in boot using knee scooter without complications Patient has kept dressing clean dry and intact Patient denies local and systemic signs of infection. Patient denies nausea, vomiting, fever, chills, cough, shortness of breath, chest pain, and calf pain PHYSICAL EXAM OF LOWER EXTREMITY: Vascular: (-) edema, BILATERAL lower extremity (-) ecchymosis (-) erythema (+) 2/4 pedal pulses, bilateral (+) Capillary Refill time: within normal limits (-) varicosities (+) pedal hair growth Neurological: (+) sensation with 5.07 [place] monofilament examination to the most distal lower extremity (-) tinel's sign (-) clonus present. Dermatological: (+) sutures intact, (+) skin margins well aligned (+) pin intact, 2nd digit (-) signs of infection, (-) open wounds, (-) macerations, (-) ischemic tissue, (-) abscess, (-) drainage, (-) mal odor (-) other primary or secondary lesions (+) normal temperature when compared to contralateral limb (+) normal color, tugor, and elasticity. Musculoskeletal: (+) good visual correction from surgical procedure (+) mild pain on palpation at the surgical site, as expected 5/5 muscle strength to extrinsic pedal muscle groups (-) evidence of compartment syndrome, (-) evidence of deep vein thrombosis ASSESSMENT: S/P LEFT Wright BUNIONECTOMY, 2ND DIPJ FUSION, APRIL 14, 2024 TREATMENT PLAN: - Extensive visit discussing possible post-op complications - surgical site healing as expected - antibiotics - continue as directed - Pain - Well controlled - Wound - Surgical site cleansed in a sterile fashion, applied antibiotic medication, dry sterile dressing, and fracture boot - Dressing - instructions provided - Weight bearing - NONE, continue with Durable Medical Equipment, patient states no complications with mobilization using devices - DVT prophylaxis - AGAIN educated about non-weight bearing exercises - Return 1 week. Patient advised to report to my clinic or the emergency room immediately with any questions or concerns. Discussion: A detailed discussion was provided to the patient with specific reference to etiology, pathology, alternate treatment options, and prognosis. All risks and complications (including side effects) with each treatment/medication alternative were outlined in detail including but not limited to: Pain, swelling, numbness, loss of function, loss of limb, bleeding, hematoma, [...] results of non-treatment, and the patient or thelegally responsible person has agreed to proceed. [facility] CenterIyqhqta4204-25-29 10:30:59 [place] [id number] 10:30:59 Diagnosis Abnormal foot finding - Prim emily [facility] CenterBgbxwso4934-19-53 10:30:59 [facility] CenterOukwxpt0677-57-28 10:30:59* Hiro Lawrence DPM - 04/21/2024 10:10 AM CDT CHIEF COMPLAINT S/P LEFT Wright BUNIONECTOMY, 2ND DIPJ FUSION, APRIL 14, 2024 HISTORY OF PRESENT ILLNESS: Patient states pain is well controlled with medication Patient has been taking antibiotics Patient has been keeping the foot elevated in boot using knee scooter without complications Patient has kept dressing clean dry and intact Patient denies local and systemic signs of infection. Patient denies nausea, vomiting, fever, chills, cough, shortness of breath, chest pain, and calf pain PHYSICAL EXAM OF LOWER EXTREMITY: Vascular: (-) edema, BILATERAL lower extremity (-) ecchymosis (-) erythema (+) 2/4 pedal pulses, bilateral (+) Capillary Refill time: within normal limits (-) varicosities (+) pedal hair growth Neurological: (+) sensation with 5.07 [place] monofilament examination to the most distal lower extremity (-) tinel's sign (-) clonus present. Dermatological: (+) sutures intact, (+) skin margins well aligned (+) pin intact, 2nd digit (-) signs of infection, (-) open wounds, (-) macerations, (-) ischemic tissue, (-) abscess, (-) drainage, (-) mal odor (-) other primary or secondary lesions (+) normal temperature when compared to contralateral limb (+) normal color, tugor, and elasticity. Musculoskeletal: (+) good visual correction from surgical procedure (+) mild pain on palpation at the surgical site, as expected 5/5 muscle strength to extrinsic pedal muscle groups (-) evidence of compartment syndrome, (-) evidence of deep vein thrombosis ASSESSMENT: S/P LEFT Wright BUNIONECTOMY, 2ND DIPJ FUSION, APRIL 14, 2024 TREATMENT PLAN: - Extensive visit discussing possible post-op complications - surgical site healing as expected - antibiotics - continue as directed - Pain - Well controlled - Wound - Surgical site cleansed in a sterile fashion, applied antibiotic medication, dry sterile dressing, and fracture boot - Dressing - instructions provided - Weight bearing - NONE, continue with Durable Medical Equipment, patient states no complications with mobilization using devices - DVT prophylaxis - AGAIN educated about non-weight bearing exercises - Return 1 week. Patient advised to report to my clinic or the emergency room immediately with any questions or concerns. Discussion: A detailed discussion was provided to the patient with specific reference to etiology, pathology, alternate treatment options, and prognosis. All risks and complications (including side effects) with each treatment/medication alternative were outlined in detail including but not limited to: Pain, swelling, numbness, loss of function, loss of limb, bleeding, hematoma, [...] results of non-treatment, and the patient or thelegally responsible person has agreed to proceed. [facility] CenterAvohajb9531-92-01 10:30:59 [facility] CenterPjpinaf4895-36-22 10:30:59 Diagnosis Abnormal foot finding - [place] diaz [facility] CenterKphlhlv1839-96-07 10:30:59 [facility] CenterFdjxqzz9599-16-98 16:04:27 Pt called and asked if her toe is suppose to be stiff as wood. I informed pt it could be due to the blocking medication and the swelling since she just got surgery today. I stated If it was in a bigger concern she can report the emergency room or call our office for a sooner appt. [facility] CenterZysvhjq4902-06-59 15:49:46* Hiro Lawrence DPM - 04/14/2024 7:00 AM CDT OPERATIVE REPORT MEDICAL RECORD NUMBER OF PATIENT AT SURGICAL FACILITY: [id number] FACILITY: [facility] Address: [address] [place] [address] SURGEON: Dr. Hiro Lawrence MARKETING PROPOSAL SPECIALIST: none PREOPERATIVE DIAGNOSIS: 1. LEFT foot 1st metatarsal painful hallux abductovalgus bunion deformity 2. LEFT foot 1st digit angular deviated hammertoe deformity 3. LEFT foot 2nd digit rigid and contracted hammertoe deformity POSTOPERATIVE DIAGNOSIS: 1. LEFT foot 1st metatarsal painful hallux abductovalgus bunion deformity 2. LEFT foot 1st digit angular deviated hammertoe deformity 3. LEFT foot 2nd digit rigid and contracted hammertoe deformity PROCEDURE: 1. LEFT foot 1st metatarsal hallux abductovalgus bunionectomy (Wright osteotomy) 2. LEFT foot 1st digit hammertoe correction (Lalo osteotomy) 3. LEFT foot 2nd digit distal interphalangeal joint arthrodesis 4. LEFT lower extremity intraoperative injection 5. LEFT lower extremity application of cast 6. Intraoperative fluoroscopy ANESTHESIA: General intubation HEMOSTASIS: Pneumatic thigh tourniquet at 250 mmHg for 64 minutes ESTIMATED BLOOD LOSS: 5 cc MATERIALS: 1. 8 mm [employer] Nitinol Staple, for Lalo osteotomy, [employer] cancer spec 2. 0.062 in K-wire, 2nd digit hammertoe fusion 3. 3-0 Vicryl, 4-0 Monocryl, 3-0 Nylon 4. Betadine-soaked Adaptic, dry sterile dressing, loosely wrapped Fred bandage 5. Lower extremity cast with the use of Unna boot for stabilization and edema control INJECTION: 1. Intraoperative injection of 20 cc of 0.5% Marcaine plain CONDITION: STABLE COMPLICATIONS: NONE OPERATIVE FINDINGS: 1. Prior to incision using intraoperative fluoroscopy, the deformities and planned surgical procedures were noted and had successfully repaired at the conclusion of the procedure 2. The hardware was appropriately placed with good compression across the multiple osteotomy sites, confirmed with intraoperative fluoroscopy 3. There were degenerative changes at all cartilaginous surface, however the 1st metatarsophalangeal joint the degenerative changes were able to be debrided 4. The 1st and 2nd digit hammertoe deformity had significant contracture at the interphalangeal joint, however once reduced and appropriately position, this was confirmed with intraoperative fluoroscopy 5. Careful attention was paid to preserve the sagittal groove at the 1st metatarsal 6. The sesamoids were corrected and appropriately aligned within the sesamoid apparatus 7. There was full range of motion at the 1st metatarsophalangeal joint following the procedure 8. Careful attention was paid to avoid iatrogenic injury to the neurovascular and tendinous structures INDICATION FOR PROCEDURE: The patient had undergone extensive therapy with conservative treatment options that were unsuccessful at resolving the painful bunion, 1st digit hammertoe angular deformity, and 2nd digit hammertoe angular deformity. These deformities have created painful hyperkeratosis, painful arthritis, limited range of motion. After, the patient had conducted extensive research on both conservative and surgical options, the patient requested and agreed to our detailed discussion about the surgical plan. The patient agreed to the surgical plan after a thorough understanding of the risks, complications, benefits, alternatives, expected healing times. Many of which were discussed in great detail were but not limited to: Pain, swelling, numbness, loss of function, loss of limb, loss of life, bleeding, blood clot, embolism, scarring, infection, ischemia, delayed/nonhealing, recurrence, over-correction, under correction, arthritis, biomechanical abnormalities, reaction to implants, need for hardware removal, need for further surgery. PROCEDURE IN DETAIL: Prior to the patient being brought to the operative room the patient was consented, had a thorough understanding of the procedure, a thorough understanding of all complications, benefits, risks, alternatives, expected healing times, the patient had all questions answered, and no guarantees were given. A non-removable skin marker was used to label the planned surgical site and was confirmed with the patient. The patient was then brought to the operative room placed in a supine position under general intubation. A time-out was taken to ensure the correct patient, limb, and surgical procedure. The marked lower extremity was prepped and draped in a normal sterile fashion. An Esmarch was utilized and the tourniquet was inflated Using a #15 scalpel blade, the incision was made through the planned location confirmed with intraoperative fluoroscopy on the dorsal medial aspect of the 1st metatarsophalangeal joint. Careful and meticulous dissection was used to expose the 1st metatarsophalangeal joint capsule. Using blunt dissection the capsule was freed from the deep tissue. The capsule was then incised in a linear fashion over the dorsal-medial aspect of the joint. The hallux digit was elevated to protect the cartilaginous surfaces within the metatarsophalangeal joint. The capsule was then freed from the medial eminence of the 1st metatarsal head. This allowed for the inspection of the metatarsophalangeal joint cartilage. Using a sagittal saw the medial eminence was debrided to smooth anatomical margins with the remainder of the metatarsal shaft. Careful attention was made to preserve the sagittal groove. Intraoperative fluoroscopy was used to confirm appropriate positioning and improvement of the bunion deformity. The wound was then copiously irrigated with saline. Attention was then a paid to the hallux digit proximal phalanx. The periosteum was reflected to the medial and lateral direction at the midshaft. With the use of intraoperative fluoroscopy, a sagittal saw was used to create a triangular wedge osteotomy (the base of the wedge was on the medial aspect) for the Lalo procedure. The osteotomy was able to be reduced by hand. Mallory holes were created using the accompanied guide for the staple. The staple was inserted and there was adequate compression across the osteotomy site which was confirmed visually and with intraoperative fluoroscopy. Intraoperative fluoroscopy was also used to confirm adequate positioning of the hardware and correction of the angular deformity previously seen prior to the osteotomy. The wound was then copiously irrigated with saline. The capsule was reapproximated with Vicryl. The subcutaneous skin was reapproximated with Monocryl. The skin was reapproximated with 3-0 Nylon. An intraoperative injection using 10 cc of 0.5% Marcaine plain were injected about the surgical site. Aspiration of the syringe was conducted in order to ensure no inadvertent injection into the circulatory system. Attention was then paid to the 2nd digit. Using a #15 scalpel blade, the incision was made through the planned location, confirmed by the patient prior to the procedure and with intraoperative fluoroscopy, on the dorsal aspect of the distal interphalangeal joint. Careful and meticulous dissection was used to expose the extensor longus tendon. The tendon was incised from medial to lateral just proximal to the head of the intermediate phalanx and the tendon was reflected proximally. The capsule was then incised to expose the head of the proximal phalanx. Careful attention was paid to avoid injury to flexor tendons. The extensor tendon was then reflected distally to expose the base of the distal phalanx. A sagittal saw was then used to resect the joint. A 0.062 inch K-wire was used to stabilize the digit. The K-wire was inserted in a retrograde type fashion. There was good compression across the interphalangeal joint, corrective angular deformity, adequate positioning of the hardware, all confirmed with intraoperative fluoroscopy from multiple angles. The wound was copiously irrigated with saline. The extensor longus tendon was reapproximated with a Vicryl. The subcutaneous skin was then reapproximated with a Monocryl. The skin was reapproximated with Nylon. An intraoperative injection of 0.5% Marcaine plain were injected about the surgical site. Aspiration of the syringe was conducted in order to ensure no inadvertent injection into the circulatory system. The tourniquet was deflated After confirmation that all the surgical counts were correct, the wound was then dressed with Betadine-soaked Adaptic, dry sterile dressing, loosely wrapped Fred bandage. A lower extremity cast with the use of Unna boot was applied for edema control and stabilization. The patient then recovered from anesthesia and left the operating room to the recovery room with vital signs stable and vascular status intact as noted by immediate hyperemia to this distal segment of the lower extremity. The patient tolerated the procedure and anesthesia well without complications. The primary attending doctor was scrubbed and present for the entire procedure. After a period of monitoring/observation the patient would be transferred from the post-anesthesia care unit and discharged to home. The patient has postoperative antibiotics to be taken on schedule. The patient has postoperative pain medication to be taken as needed with food. The patient is to be nonweightbearing to the surgical limb using a fracture boot, and the patient was able to comply with directions as seen in the office prior to the procedure. The patient was educated on blood clot prophylaxis with nonweightbearing exercises, and the patient was able to comply with directions as seen in the office prior to the procedure. The patient must make a follow-up appointment with me in the office within 1 week. If the patient has any questions or concerns can call my office for a sooner appointment or report immediately to the emergency room. Nellie [id number] 15:49:46Upcoming Encounters Health Maintenance Due Date Last Done Comments CT Colonography 1959 Colonoscopy 1959 Colorectal Cancer Screening 1959 FIT-DNA 1959 FIT 1959 FOBT 1959 Lipid Panel 1959 Medicare Initial Physical (IPPE) 1959 Sigmoidoscopy 1959 DTaP/Tdap/Td Vaccines (1 - Tdap) 1978 Pap Smear 1980 Cervical Cancer Screening 1989 HPV/Cotest 1989 Mammogram 1999 Zoster Vaccines (1 of 2) 2009 Respiratory Syncytial Virus (RSV) or >=60 (1 - 1-dose 60+ series) 2019 Influenza Vaccine (#1) 2024 HIB Vaccines Aged Out No longer eligi ble based on patient's age to complete this topic HPV Vaccines Aged Out No longer eligi ble based on patient's age to complete this topic Hepatitis A Vaccines Aged Out No long er eligible based on patient's age to complete this topic Hepatitis B Vaccines Aged Out No long er eligible based on patient's age to complete this topic IPV Vaccines Aged Out No longer eligi ble based on patient's age to complete this topic Meningococcal Vaccine Aged Out No mahendra inna eligible based on patient's age to complete this topic Pneumococcal Vaccine: Pediat rics (0 to 5 Years) and At-Risk Patients (6 to 64 Years) Aged Out No longer eligible b ased on patient's age to complete this topic Rotavirus Vaccines Aged Out No longer eligible based on patient's age to complete this topic [id number] 15:49:46 Diagnosis Abnormal foot finding - Prim emily [id number] 15:49:46 [id number] 20:45:49 [id number] 20:45:49 [facility] [id number] 10:00:31 Merari called to inform us the anesthesiologist is requiring patient to get more blood work done (CMP and CBC) and a chest xray done before her surgery. [facility] [id number] 11:04:45* Hiro Lawrence, BENNY - 03/22/2024 10:20 AM CDT CHIEF COMPLAINT: BUNION, LEFT HAMMERTOE, LEFT 2ND FRACTURE, LEFT 1ST METATARSAL - resolved 02/09/2024 HISTORY OF PRESENT ILLNESS: Patient returns for surgical planning after conducting extensive research on both conservative and surgical options Patient requesting to proceed with the surgical plan to remove the left foot bunion deformity and correct the left foot 2nd digit hammertoe deformity Patient currently denies infection, injury, wounds Patient states pain currently rated 4/10 on palpation and with range of motion, left foot 1st metatarsophalangeal joint and left foot 2nd digit hammertoe deformity --- Patient requesting to proceed with bunion and hammertoe correction, left foot Patient states recurring painful left foot bunion deformity and left foot 2nd digit hammertoe deformity Patient states pain irritated with shoe gear and during prolonged ambulation, and unable to conduct activities of daily living including cardiovascular exercise Patient states pain currently rated 4/10 on palpation and with range of motion, left 1st metatarsophalangeal joint and left foot 2nd digit hammertoe deformity --- Patient states tripped while walking barefoot at home, January 24, 2024 Patient states she felt a pop and unable to bear weight following the injury Patient states she was wearing her previously dispensed immobilization boot which has been helpful Patient states pain currently rated 4/10 on palpation, diffuse left forefoot --- Patient states fracture is fully resolved and is very satisfied with treatment plan and results, left foot 2nd digit Patient denies pain, infection, injury, wounds 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 activities of daily living [...] 2/10 on palpation, left foot 2nd digit --- Patient states stable left foot 2nd digit fracture Patient states pain currently rated 2/10 on palpation, left 2nd digit --- Patient states she was walking barefoot at home, tripped on her animals pee-pad, causing rapid plantar flexion, left 2nd digit, October 05, 2023 Patient seen at local emergency room, provided x-rays, marley splint, postop shoe, crutches, advised to follow-up with specialist, October 05, 2023 Patient states pain currently rated 6/10 on palpation, left 2nd digit --- Patient states neuroma has improved with treatments and is very satisfied with treatment plan and results Patient states bunion and neuroma pains have previously resolved, patient now with pain with contracted hammertoes, bilateral 2nd digit Patient denies infection, injury, wounds Patient states pain currently rated 4/10 on palpation, bilateral 2nd digit --- Patient states painful bunion deformity for many years. Patient has tried multiple conservative treatments, but all do not seem to help. Patient has tried larger shoe gear, toe spacers, and over the counter orthotics. Patient requesting further more aggressive therapy Patient states pain graded 6/10 on palpation, bilateral 1st metatarsal phalangeal joint. PHYSICAL EXAM OF THE LOWER EXTREMITY: Vascular (-) edema, BILATERAL lower extremity (-) ecchymosis, (-) erythema Dorsal pedis pulse, bilateral - 2/4; Posterior tibial pulse, bilateral- 2/4 Capillary Refill time: within normal limits (-) varicosities, (+) pedal hair growth. Neurological (+) sensation with 5.07 [place] monofilament examination to the most distal lower extremity (-) tinel's sign (-) clonus present.. Dermatological (-) signs of soft tissue infection, (-) open wounds, (-) tenting of the skin (-) abscess (-) other primary or secondary lesions (+) normal temperature when compared to contralateral limb (+) normal color, tugor, and elasticity.. Musculoskeletal (+) pain on palpation and with range of motion, left 1st metatarsophalangeal joint (+) Moderate bunion deformity, left 1st metatarsophalangeal joint (+) mild hammertoe lateral angular deformity, LEFT HALLUX proximal phalanx (+) hammertoes, BILATERAL rigid contracture (-) crepitation, bilateral ( previously bilateral 1st metatarsal phalangeal joint) (+) hypermobile 1st ray (-) other pain on palpation or with range of motion, BILATERAL lower extremity (+) flexible pes planus foot type, bilateral 5/5 muscle strength to extrinsic pedal muscle groups (-) evidence of compartment syndrome, (-) evidence of deep vein thrombosis X-RAYS LEFT FOOT 06/21/2023: (+) stress fracture, [...] interphalangeal joint (+) Mild-moderate plantar calcaneal spur --- X-RAYS LEFT Foot 02/05/2024: (+) moderate bunion deformity (-) fracture (-) dislocation (+) ossification at previous stress fracture, LEFT 3rd metatarsal (+) mild arthritis 2nd proximal interphalangeal joint (+) Mild-moderate plantar calcaneal spur __- MRI LEFT foot 07/17/2023: (+) Mild peroneal brevis tenosynovitis. ASSESSMENT: Hammertoe, left 2nd digit --- BUNION, LEFT > RIGHT - resolved 10/01/2023 Hammertoes, RIGHT 2nd digit Fracture, left 1st metatarsal - resolved 02/09/2024 NEUROMA, LEFT 2ND INTERMETATARSAL SPACE - resolved 09/17/2023 FRACTURE, LEFT 2ND DIGIT - resolved 12/08/2023 FRACTURE, LEFT 3RD METATARSAL STRESS - resolved 08/11/2023 PLANTAR FASCIITIS, LEFT - resolved 06/11/2023. TREATMENT PLAN: - Extensive visit discussing possible pedal complications from fractures due to hammertoe deformities and multiple other comorbidities - PAIN - well controlled with [id number], continue with previous [employer] CONSULT continue previously prescribed 05/28 TYLENOL NO. 4 as needed, patient had previously denied NSAIDs and steroids (allergy), but satisfied with [id number] Tylenol - CAST - patient defers, states pain manageable with immobilization boot - x-rays - reviewed - hammertoes - planning surgical correction, left foot 2nd digit, since no improvements from CREST PAD, patient states possible complications with not wearing - bunion - planning for surgical correction left since no improvements from conservative treatments - neuroma - resolved, no further treatment indicated, previously responded well to 08/11/2023 LEFT 1st intermetatarsal space, injection in a sterile fashion using 1 cc total 1:1 mix with 0.5% Marcaine plain and dexamethasone - tenosynovitis - asymptomatic, no treatment indicated, use boot as needed - plantar fasciitis - resolved, previously responded well to 05/19/2023 injection, LEFT plantar heel -----injection of 1.5cc in 1:1 mix of 1% lidocaine plain, 0.5% Marcaine plain, dexamethasone - strapping - responded well to 06/11/2023 to marley tape the 2nd digit to adjacent disease and stabilize the foot /ankle - vascular - no further studies indicated however previously ordered 06/16/2023 since patient with palpable pedal pulses, no open wounds, no ischemic tissue - Orthotics - patient defers and understands risk, discussed custom orthotics, patient would benefit from long-term arch support for functional and accommodative applications - Shoes - educated patient on appropriate shoe gear - weight-bearing - reduced in fracture boot, dispensed 05/28/2023 - colonoscopy - Planning March 30 - ANTIBIOTICS - PRESCRIBED KEFLEX, for postop prophylaxis - PAIN - PRESCRIBED NORCO, for postop prophylaxis, patient advised to use appropriate medication for appropriate pain level - WEIGHT-BEARING STATUS - NONE after surgery, in fracture boot, DISPENSED, patient able to comply with nonweightbearing directions as seen in the office - DVT PROPHYLAXIS - nonweightbearing exercises, patient able to comply with directions is seen in the office - CONSENT - discussed in great detail, the patient agrees with the surgical plan after thorough understanding of the risks, complications, benefits, alternatives, expected healing times for both conservative and surgical options - PREOP LABS - Reviewed - surgery- LEFT bunionectomy, Lalo, 2nd hammertoe correction Return 1 week after surgery Patient advised to report to the clinic [...] legally responsible person has agreed to proceed. OR MANUEL [facility] [id number] 11:04:45 [facility] [id number] 11:04:45 Diagnosis Abnormal foot finding - Prim emily Arboleda, left [facility] [id number] 11:04:45 [facility] [id number] 11:04:45* Hiro Lawrence, BENNY - 03/22/2024 10:20 AM CDT CHIEF COMPLAINT: BUNION, LEFT HAMMERTOE, LEFT 2ND FRACTURE, LEFT 1ST METATARSAL - resolved 02/09/2024 HISTORY OF PRESENT ILLNESS: Patient returns for surgical planning after conducting extensive research on both conservative and surgical options Patient requesting to proceed with the surgical plan to remove the left foot bunion deformity and correct the left foot 2nd digit hammertoe deformity Patient currently denies infection, injury, wounds Patient states pain currently rated 4/10 on palpation and with range of motion, left foot 1st metatarsophalangeal joint and left foot 2nd digit hammertoe deformity --- Patient requesting to proceed with bunion and hammertoe correction, left foot Patient states recurring painful left foot bunion deformity and left foot 2nd digit hammertoe deformity Patient states pain irritated with shoe gear and during prolonged ambulation, and unable to conduct activities of daily living including cardiovascular exercise Patient states pain currently rated 4/10 on palpation and with range of motion, left 1st metatarsophalangeal joint and left foot 2nd digit hammertoe deformity --- Patient states tripped while walking barefoot at home, January 24, 2024 Patient states she felt a pop and unable to bear weight following the injury Patient states she was wearing her previously dispensed immobilization boot which has been helpful Patient states pain currently rated 4/10 on palpation, diffuse left forefoot --- Patient states fracture is fully resolved and is very satisfied with treatment plan and results, left foot 2nd digit Patient denies pain, infection, injury, wounds 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 activities of daily living [...] 2/10 on palpation, left foot 2nd digit --- Patient states stable left foot 2nd digit fracture Patient states pain currently rated 2/10 on palpation, left 2nd digit --- Patient states she was walking barefoot at home, tripped on her animals pee-pad, causing rapid plantar flexion, left 2nd digit, October 05, 2023 Patient seen at local emergency room, provided x-rays, marley splint, postop shoe, crutches, advised to follow-up with specialist, October 05, 2023 Patient states pain currently rated 6/10 on palpation, left 2nd digit --- Patient states neuroma has improved with treatments and is very satisfied with treatment plan and results Patient states bunion and neuroma pains have previously resolved, patient now with pain with contracted hammertoes, bilateral 2nd digit Patient denies infection, injury, wounds Patient states pain currently rated 4/10 on palpation, bilateral 2nd digit --- Patient states painful bunion deformity for many years. Patient has tried multiple conservative treatments, but all do not seem to help. Patient has tried larger shoe gear, toe spacers, and over the counter orthotics. Patient requesting further more aggressive therapy Patient states pain graded 6/10 on palpation, bilateral 1st metatarsal phalangeal joint. PHYSICAL EXAM OF THE LOWER EXTREMITY: Vascular (-) edema, BILATERAL lower extremity (-) ecchymosis, (-) erythema Dorsal pedis pulse, bilateral - 2/4; Posterior tibial pulse, bilateral- 2/4 Capillary Refill time: within normal limits (-) varicosities, (+) pedal hair growth. Neurological (+) sensation with 5.07 [place] monofilament examination to the most distal lower extremity (-) tinel's sign (-) clonus present.. Dermatological (-) signs of soft tissue infection, (-) open wounds, (-) tenting of the skin (-) abscess (-) other primary or secondary lesions (+) normal temperature when compared to contralateral limb (+) normal color, tugor, and elasticity.. Musculoskeletal (+) pain on palpation and with range of motion, left 1st metatarsophalangeal joint (+) Moderate bunion deformity, left 1st metatarsophalangeal joint (+) mild hammertoe lateral angular deformity, LEFT HALLUX proximal phalanx (+) hammertoes, BILATERAL rigid contracture (-) crepitation, bilateral ( previously bilateral 1st metatarsal phalangeal joint) (+) hypermobile 1st ray (-) other pain on palpation or with range of motion, BILATERAL lower extremity (+) flexible pes planus foot type, bilateral 5/5 muscle strength to extrinsic pedal muscle groups (-) evidence of compartment syndrome, (-) evidence of deep vein thrombosis X-RAYS LEFT FOOT 06/21/2023: (+) stress fracture, [...] interphalangeal joint (+) Mild-moderate plantar calcaneal spur --- X-RAYS LEFT Foot 02/05/2024: (+) moderate bunion deformity (-) fracture (-) dislocation (+) ossification at previous stress fracture, LEFT 3rd metatarsal (+) mild arthritis 2nd proximal interphalangeal joint (+) Mild-moderate plantar calcaneal spur __- MRI LEFT foot 07/17/2023: (+) Mild peroneal brevis tenosynovitis. ASSESSMENT: Hammertoe, left 2nd digit --- BUNION, LEFT > RIGHT - resolved 10/01/2023 Hammertoes, RIGHT 2nd digit Fracture, left 1st metatarsal - resolved 02/09/2024 NEUROMA, LEFT 2ND INTERMETATARSAL SPACE - resolved 09/17/2023 FRACTURE, LEFT 2ND DIGIT - resolved 12/08/2023 FRACTURE, LEFT 3RD METATARSAL STRESS - resolved 08/11/2023 PLANTAR FASCIITIS, LEFT - resolved 06/11/2023. TREATMENT PLAN: - Extensive visit discussing possible pedal complications from fractures due to hammertoe deformities and multiple other comorbidities - PAIN - well controlled with [id number], continue with previous [employer]CH[employer]ICIAN CONSULT continue previously prescribed 05/28 TYLENOL NO. 4 as needed, patient had previously denied NSAIDs and steroids (allergy), but satisfied with [id number] Tylenol - CAST - patient defers, states pain manageable with immobilization boot - x-rays - reviewed - hammertoes - planning surgical correction, left foot 2nd digit, since no improvements from CREST PAD, patient states possible complications with not wearing - bunion - planning for surgical correction left since no improvements from conservative treatments - neuroma - resolved, no further treatment indicated, previously responded well to 08/11/2023 LEFT 1st intermetatarsal space, injection in a sterile fashion using 1 cc total 1:1 mix with 0.5% Marcaine plain and dexamethasone - tenosynovitis - asymptomatic, no treatment indicated, use boot as needed - plantar fasciitis - resolved, previously responded well to 05/19/2023 injection, LEFT plantar heel -----injection of 1.5cc in 1:1 mix of 1% lidocaine plain, 0.5% Marcaine plain, dexamethasone - strapping - responded well to 06/11/2023 to marley tape the 2nd digit to adjacent disease and stabilize the foot /ankle - vascular - no further studies indicated however previously ordered 06/16/2023 since patient with palpable pedal pulses, no open wounds, no ischemic tissue - Orthotics - patient defers and understands risk, discussed custom orthotics, patient would benefit from long-term arch support for functional and accommodative applications - Shoes - educated patient on appropriate shoe gear - weight-bearing - reduced in fracture boot, dispensed 05/28/2023 - colonoscopy - Planning March 30 - ANTIBIOTICS - PRESCRIBED KEFLEX, for postop prophylaxis - PAIN - PRESCRIBED NORCO, for postop prophylaxis, patient advised to use appropriate medication for appropriate pain level - WEIGHT-BEARING STATUS - NONE after surgery, in fracture boot, DISPENSED, patient able to comply with nonweightbearing directions as seen in the office - DVT PROPHYLAXIS - nonweightbearing exercises, patient able to comply with directions is seen in the office - CONSENT - discussed in great detail, the patient agrees with the surgical plan after thorough understanding of the risks, complications, benefits, alternatives, expected healing times for both conservative and surgical options - PREOP LABS - Reviewed - surgery- LEFT bunionectomy, Lalo, 2nd hammertoe correction Return 1 week after surgery Patient advised to report to the clinic [...] legally responsible person has agreed to proceed. [id number] 11:04:45 [id number] 11:04:45 Diagnosis Abnormal foot finding - Prim emily Arboleda, left [id number] 11:04:45 [facility] [id number] 23:54:53Upcoming Encounters Health Maintenance Due Date Last Done Comments CT Colonography 1959 Colonoscopy 1959 Colorectal Cancer Screening 1959 FIT-DNA 1959 FIT 1959 FOBT 1959 Lipid Panel 1959 Medicare Initial Physical (IPPE) 1959 Sigmoidoscopy 1959 DTaP/Tdap/Td Vaccines (1 - Tdap) 1978 Pap Smear 1980 Cervical Cancer Screening 1989 HPV/Cotest 1989 Mammogram 1999 Zoster Vaccines (1 of 2) 2009 Respiratory Syncytial Virus (RSV) or >=60 (1 - 1-dose 60+ series) 2019 Influenza Vaccine (#1) 2024 HIB Vaccines Aged Out No longer eligi ble based on patient's age to complete this topic HPV Vaccines Aged Out No longer eligi ble based on patient's age to complete this topic Hepatitis A Vaccines Aged Out No long er eligible based on patient's age to complete this topic Hepatitis B Vaccines Aged Out No long er eligible based on patient's age to complete this topic IPV Vaccines Aged Out No longer eligi ble based on patient's age to complete this topic Meningococcal Vaccine Aged Out No mahendra inna eligible based on patient's age to complete this topic Pneumococcal Vaccine: Pediat rics (0 to 5 Years) and At-Risk Patients (6 to 64 Years) Aged Out No longer eligible b ased on patient's age to complete this topic Rotavirus Vaccines Aged Out No longer eligible based on patient's age to complete this topic [id number] 23:54:53 [facility] [id number] 10:32:20* Hiro Lawrence, BENNY - 03/01/2024 10:00 AM CDT CHIEF COMPLAINT: BUNION, LEFT HAMMERTOE, LEFT 2ND FRACTURE, LEFT 1ST METATARSAL - resolved 02/09/2024 HISTORY OF PRESENT ILLNESS: Patient requesting to proceed with bunion and hammertoe correction, left foot Patient states recurring painful left foot bunion deformity and left foot 2nd digit hammertoe deformity Patient states pain irritated with shoe gear and during prolonged ambulation, and unable to conduct activities of daily living including cardiovascular exercise Patient states pain currently rated 4/10 on palpation and with range of motion, left 1st metatarsophalangeal joint and left foot 2nd digit hammertoe deformity --- Patient states tripped while walking barefoot at home, January 24, 2024 Patient states she felt a pop and unable to bear weight following the injury Patient states she was wearing her previously dispensed immobilization boot which has been helpful Patient states pain currently rated 4/10 on palpation, diffuse left forefoot --- Patient states fracture is fully resolved and is very satisfied with treatment plan and results, left foot 2nd digit Patient denies pain, infection, injury, wounds 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 activities of daily living [...] 2/10 on palpation, left foot 2nd digit --- Patient states stable left foot 2nd digit fracture Patient states pain currently rated 2/10 on palpation, left 2nd digit --- Patient states she was walking barefoot at home, tripped on her animals pee-pad, causing rapid plantar flexion, left 2nd digit, October 05, 2023 Patient seen at local emergency room, provided x-rays, marley splint, postop shoe, crutches, advised to follow-up with specialist, October 05, 2023 Patient states pain currently rated 6/10 on palpation, left 2nd digit --- Patient states neuroma has improved with treatments and is very satisfied with treatment plan and results Patient states bunion and neuroma pains have previously resolved, patient now with pain with contracted hammertoes, bilateral 2nd digit Patient denies infection, injury, wounds Patient states pain currently rated 4/10 on palpation, bilateral 2nd digit --- Patient states painful bunion deformity for many years. Patient has tried multiple conservative treatments, but all do not seem to help. Patient has tried larger shoe gear, toe spacers, and over the counter orthotics. Patient requesting further more aggressive therapy Patient states pain graded 6/10 on palpation, bilateral 1st metatarsal phalangeal joint. PHYSICAL EXAM OF THE LOWER EXTREMITY: Vascular (-) edema, BILATERAL lower extremity (-) ecchymosis, (-) erythema Dorsal pedis pulse, bilateral - 2/4; Posterior tibial pulse, bilateral- 2/4 Capillary Refill time: within normal limits (-) varicosities, (+) pedal hair growth. Neurological (+) sensation with 5.07 [place] monofilament examination to the most distal lower extremity (-) tinel's sign (-) clonus present.. Dermatological (-) signs of soft tissue infection, (-) open wounds, (-) tenting of the skin (-) abscess (-) other primary or secondary lesions (+) normal temperature when compared to contralateral limb (+) normal color, tugor, and elasticity.. Musculoskeletal (+) pain on palpation and with range of motion, left 1st metatarsophalangeal joint (+) Moderate bunion deformity, left 1st metatarsophalangeal joint (+) mild hammertoe lateral angular deformity, LEFT HALLUX proximal phalanx (+) hammertoes, BILATERAL rigid contracture (-) crepitation, bilateral ( previously bilateral 1st metatarsal phalangeal joint) (+) hypermobile 1st ray (-) other pain on palpation or with range of motion, BILATERAL lower extremity (+) flexible pes planus foot type, bilateral 5/5 muscle strength to extrinsic pedal muscle groups (-) evidence of compartment syndrome, (-) evidence of deep vein thrombosis X-RAYS LEFT FOOT 06/21/2023: (+) stress fracture, [...] interphalangeal joint (+) Mild-moderate plantar calcaneal spur --- X-RAYS LEFT Foot 02/05/2024: (+) moderate bunion deformity (-) fracture (-) dislocation (+) ossification at previous stress fracture, LEFT 3rd metatarsal (+) mild arthritis 2nd proximal interphalangeal joint (+) Mild-moderate plantar calcaneal spur __- MRI LEFT foot 07/17/2023: (+) Mild peroneal brevis tenosynovitis. ASSESSMENT: Hammertoe, left 2nd digit --- BUNION, LEFT > RIGHT - resolved 10/01/2023 Hammertoes, RIGHT 2nd digit Fracture, left 1st metatarsal - resolved 02/09/2024 NEUROMA, LEFT 2ND INTERMETATARSAL SPACE - resolved 09/17/2023 FRACTURE, LEFT 2ND DIGIT - resolved 12/08/2023 FRACTURE, LEFT 3RD METATARSAL STRESS - resolved 08/11/2023 PLANTAR FASCIITIS, LEFT - resolved 06/11/2023. 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 4 as needed, patient had previously denied NSAIDs and steroids (allergy), but satisfied with [id number] Tylenol - CAST - patient defers, states pain manageable with immobilization boot - x-rays - reviewed - hammertoes - planning surgical correction, left foot 2nd digit, since no improvements from CREST PAD, patient states possible complications with not wearing - bunion - planning for surgical correction left since no improvements from conservative treatments - neuroma - resolved, no further treatment indicated, previously responded well to 08/11/2023 LEFT 1st intermetatarsal space, injection in a sterile fashion using 1 cc total 1:1 mix with 0.5% Marcaine plain and dexamethasone - tenosynovitis - asymptomatic, no treatment indicated, use boot as needed - plantar fasciitis - resolved, previously responded well to 05/19/2023 injection, LEFT plantar heel -----injection of 1.5cc in 1:1 mix of 1% lidocaine plain, 0.5% Marcaine plain, dexamethasone - strapping - responded well to 06/11/2023 to marley tape the 2nd digit to adjacent disease and stabilize the foot /ankle - vascular - no further studies indicated however previously ordered 06/16/2023 since patient with palpable pedal pulses, no open wounds, no ischemic tissue - Orthotics - patient defers and understands risk, discussed custom orthotics, patient would benefit from long-term arch support for functional and accommodative applications - Shoes - educated patient on appropriate shoe gear - weight-bearing - reduced in fracture boot, dispensed 05/28/2023 - colonoscopy - Planning March 30 - PREOP LABS- PENDING LABS AND CARDIAC CLEARANCE ( for Plavix around colonoscopy procedure), reviewed clearance from PCP - surgery- LEFT bunionectomy, Lalo, 2nd hammertoe correction Return 4 weeks for preop eval Patient advised to report to the [...] legally responsible person has agreed to proceed. OR MANUEL Guzman2024-08-26 10:32:20Upcoming Encounters Health Maintenance Due Date Last Done Comments CT Colonography 1959 Colonoscopy 1959 Colorectal Cancer Screening 1959 FIT-DNA 1959 FIT 1959 FOBT 1959 Lipid Panel 1959 Medicare Initial Physical (IPPE) 1959 Sigmoidoscopy 1959 DTaP/Tdap/Td Vaccines (1 - Tdap) 1978 Pap Smear 1980 Cervical Cancer Screening 1989 HPV/Cotest 1989 Mammogram 1999 Zoster Vaccines (1 of 2) 2009 Respiratory Syncytial Virus (RSV) or >=60 (1 - 1-dose 60+ series) 2019 Influenza Vaccine (#1) 2024 HIB Vaccines Aged Out No longer eligi ble based on patient's age to complete this topic HPV Vaccines Aged Out No longer eligi ble based on patient's age to complete this topic Hepatitis A Vaccines Aged Out No long er eligible based on patient's age to complete this topic Hepatitis B Vaccines Aged Out No long er eligible based on patient's age to complete this topic IPV Vaccines Aged Out No longer eligi ble based on patient's age to complete this topic Meningococcal Vaccine Aged Out No mahendra inna eligible based on patient's age to complete this topic Pneumococcal Vaccine: Pediat rics (0 to 5 Years) and At-Risk Patients (6 to 64 Years) Aged Out No longer eligible b ased on patient's age to complete this topic Rotavirus Vaccines Aged Out No longer eligible based on patient's age to complete this topic [facility]Rqewghx5543-10-95 10:32:20 Diagnosis Abnormal foot finding - Prim emily [facility] [id number] 10:32:20 [facility] [id number] 11:28:32* Hiro Lawrence, BENNY - 02/09/2024 10:30 AM CDT CHIEF COMPLAINT: BUNION, LEFT HAMMERTOE, LEFT 2ND FRACTURE, LEFT 1ST METATARSAL - resolved 02/09/2024 HISTORY OF PRESENT ILLNESS: Patient states previously painful left 1st metatarsal is fully resolved Patient requesting to proceed with bunion and hammertoe correction, left foot Patient states pain irritated with shoe gear and during prolonged ambulation Patient states pain currently rated 4/10 on palpation and with range of motion, left 1st metatarsophalangeal joint and left foot 2nd digit hammertoe deformity --- Patient states tripped while walking barefoot at home, January 24, 2024 Patient states she felt a pop and unable to bear weight following the injury Patient states she was wearing her previously dispensed immobilization boot which has been helpful Patient states pain currently rated 4/10 on palpation, diffuse left forefoot --- Patient states fracture is fully resolved and is very satisfied with treatment plan and results, left foot 2nd digit Patient denies pain, infection, injury, wounds 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 activities of daily living [...] 2/10 on palpation, left foot 2nd digit --- Patient states stable left foot 2nd digit fracture Patient states pain currently rated 2/10 on palpation, left 2nd digit --- Patient states she was walking barefoot at home, tripped on her animals pee-pad, causing rapid plantar flexion, left 2nd digit, October 05, 2023 Patient seen at local emergency room, provided x-rays, marley splint, postop shoe, crutches, advised to follow-up with specialist, October 05, 2023 Patient states pain currently rated 6/10 on palpation, left 2nd digit --- Patient states neuroma has improved with treatments and is very satisfied with treatment plan and results Patient states bunion and neuroma pains have previously resolved, patient now with pain with contracted hammertoes, bilateral 2nd digit Patient denies infection, injury, wounds Patient states pain currently rated 4/10 on palpation, bilateral 2nd digit --- Patient states painful bunion deformity for many years. Patient has tried multiple conservative treatments, but all do not seem to help. Patient has tried larger shoe gear, toe spacers, and over the counter orthotics. Patient requesting further more aggressive therapy Patient states pain graded 6/10 on palpation, bilateral 1st metatarsal phalangeal joint. PHYSICAL EXAM OF THE LOWER EXTREMITY: Vascular (-) edema, BILATERAL lower extremity (-) ecchymosis, (-) erythema Dorsal pedis pulse, bilateral - 2/4; Posterior tibial pulse, bilateral- 2/4 Capillary Refill time: within normal limits (-) varicosities, (+) pedal hair growth. Neurological (+) sensation with 5.07 [place] monofilament examination to the most distal lower extremity (-) tinel's sign (-) clonus present.. Dermatological (-) signs of soft tissue infection, (-) open wounds, (-) tenting of the skin (-) abscess (-) other primary or secondary lesions (+) normal temperature when compared to contralateral limb (+) normal color, tugor, and elasticity.. Musculoskeletal (+) pain on palpation and with range of motion, left 1st metatarsophalangeal joint (+) Moderate bunion deformity, left 1st metatarsophalangeal joint (+) mild hammertoe lateral angular deformity, LEFT HALLUX proximal phalanx (+) hammertoes, BILATERAL rigid contracture (-) crepitation, bilateral ( previously bilateral 1st metatarsal phalangeal joint) (+) hypermobile 1st ray (-) other pain on palpation or with range of motion, BILATERAL lower extremity (+) flexible pes planus foot type, bilateral 5/5 muscle strength to extrinsic pedal muscle groups (-) evidence of compartment syndrome, (-) evidence of deep vein thrombosis X-RAYS LEFT FOOT 06/21/2023: (+) stress fracture, [...] interphalangeal joint (+) Mild-moderate plantar calcaneal spur --- X-RAYS LEFT Foot 02/05/2024: (+) moderate bunion deformity (-) fracture (-) dislocation (+) ossification at previous stress fracture, LEFT 3rd metatarsal (+) mild arthritis 2nd proximal interphalangeal joint (+) Mild-moderate plantar calcaneal spur __- MRI LEFT foot 07/17/2023: (+) Mild peroneal brevis tenosynovitis. ASSESSMENT: BUNION, LEFT > RIGHT - resolved 10/01/2023 Hammertoe, left 2nd digit --- Hammertoes, bilateral 2nd digit Fracture, left 1st metatarsal - resolved 02/09/2024 NEUROMA, LEFT 2ND INTERMETATARSAL SPACE - resolved 09/17/2023 FRACTURE, LEFT 2ND DIGIT - resolved 12/08/2023 FRACTURE, LEFT 3RD METATARSAL STRESS - resolved 08/11/2023 PLANTAR FASCIITIS, LEFT - resolved 06/11/2023. 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 4 as needed, patient had previously denied NSAIDs and steroids (allergy), but satisfied with [id number] Tylenol - CAST - patient defers, states pain manageable with immobilization boot - x-rays - reviewed - hammertoes - planning surgical correction, left foot 2nd digit, since no improvements from CREST PAD, patient states possible complications with not wearing - bunion - planning for surgical correction left since no improvements from conservative treatments - neuroma - resolved, no further treatment indicated, previously responded well to 08/11/2023 LEFT 1st intermetatarsal space, injection in a sterile fashion using 1 cc total 1:1 mix with 0.5% Marcaine plain and dexamethasone - tenosynovitis - asymptomatic, no treatment indicated, use boot as needed - plantar fasciitis - resolved, previously responded well to 05/19/2023 injection, LEFT plantar heel -----injection of 1.5cc in 1:1 mix of 1% lidocaine plain, 0.5% Marcaine plain, dexamethasone - strapping - responded well to 06/11/2023 to marley tape the 2nd digit to adjacent disease and stabilize the foot /ankle - vascular - no further studies indicated however previously ordered 06/16/2023 since patient with palpable pedal pulses, no open wounds, no ischemic tissue - Orthotics - patient defers and understands risk, discussed custom orthotics, patient would benefit from long-term arch support for functional and accommodative applications - Shoes - educated patient on appropriate shoe gear - weight-bearing - reduced in fracture boot, dispensed 05/28/2023 - PREOP LABS-ORDERED - surgery-left bunionectomy, Lalo, 2nd hammertoe correction Return 4 weeks for preop eval Patient advised to report to the [...] legally responsible person has agreed to proceed. [facility] MAN[facility]EL [facility] [id number] 11:28:32Upcoming Encounters Health Maintenance Due Date Last Done Comments CT Colonography 1959 Colonoscopy 1959 Colorectal Cancer Screening 1959 FIT-DNA 1959 FIT 1959 FOBT 1959 Lipid Panel 1959 Medicare Initial Physical (IPPE) 1959 Sigmoidoscopy 1959 DTaP/Tdap/Td Vaccines (1 - Tdap) 1978 Pap Smear 1980 Cervical Cancer Screening 1989 HPV/Cotest 1989 Mammogram 1999 Zoster Vaccines (1 of 2) 2009 Respiratory Syncytial Virus (RSV) or >=60 (1 - 1-dose 60+ series) 2019 Influenza Vaccine (#1) 2024 HIB Vaccines Aged Out No longer eligi ble based on patient's age to complete this topic HPV Vaccines Aged Out No longer eligi ble based on patient's age to complete this topic Hepatitis A Vaccines Aged Out No long er eligible based on patient's age to complete this topic Hepatitis B Vaccines Aged Out No long er eligible based on patient's age to complete this topic IPV Vaccines Aged Out No longer eligi ble based on patient's age to complete this topic Meningococcal Vaccine Aged Out No mahendra inna eligible based on patient's age to complete this topic Pneumococcal Vaccine: Pediat rics (0 to 5 Years) and At-Risk Patients (6 to 64 Years) Aged Out No longer eligible b ased on patient's age to complete this topic Rotavirus Vaccines Aged Out No longer eligible based on patient's age to complete this topic [id number] 11:28:32 Diagnosis Abnormal foot finding - Prim emily [facility] [id number] 11:28:32 [place] [id number] 11:28:32* Hiro Lawrence, BENNY - 02/09/2024 10:30 AM CDT CHIEF COMPLAINT: BUNION, LEFT HAMMERTOE, LEFT 2ND FRACTURE, LEFT 1ST METATARSAL - resolved 02/09/2024 HISTORY OF PRESENT ILLNESS: Patient states previously painful left 1st metatarsal is fully resolved Patient requesting to proceed with bunion and hammertoe correction, left foot Patient states pain irritated with shoe gear and during prolonged ambulation Patient states pain currently rated 4/10 on palpation and with range of motion, left 1st metatarsophalangeal joint and left foot 2nd digit hammertoe deformity --- Patient states tripped while walking barefoot at home, January 24, 2024 Patient states she felt a pop and unable to bear weight following the injury Patient states she was wearing her previously dispensed immobilization boot which has been helpful Patient states pain currently rated 4/10 on palpation, diffuse left forefoot --- Patient states fracture is fully resolved and is very satisfied with treatment plan and results, left foot 2nd digit Patient denies pain, infection, injury, wounds 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 activities of daily living [...] 2/10 on palpation, left foot 2nd digit --- Patient states stable left foot 2nd digit fracture Patient states pain currently rated 2/10 on palpation, left 2nd digit --- Patient states she was walking barefoot at home, tripped on her animals pee-pad, causing rapid plantar flexion, left 2nd digit, October 05, 2023 Patient seen at local emergency room, provided x-rays, marley splint, postop shoe, crutches, advised to follow-up with specialist, October 05, 2023 Patient states pain currently rated 6/10 on palpation, left 2nd digit --- Patient states neuroma has improved with treatments and is very satisfied with treatment plan and results Patient states bunion and neuroma pains have previously resolved, patient now with pain with contracted hammertoes, bilateral 2nd digit Patient denies infection, injury, wounds Patient states pain currently rated 4/10 on palpation, bilateral 2nd digit --- Patient states painful bunion deformity for many years. Patient has tried multiple conservative treatments, but all do not seem to help. Patient has tried larger shoe gear, toe spacers, and over the counter orthotics. Patient requesting further more aggressive therapy Patient states pain graded 6/10 on palpation, bilateral 1st metatarsal phalangeal joint. PHYSICAL EXAM OF THE LOWER EXTREMITY: Vascular (-) edema, BILATERAL lower extremity (-) ecchymosis, (-) erythema Dorsal pedis pulse, bilateral - 2/4; Posterior tibial pulse, bilateral- 2/4 Capillary Refill time: within normal limits (-) varicosities, (+) pedal hair growth. Neurological (+) sensation with 5.07 [place] monofilament examination to the most distal lower extremity (-) tinel's sign (-) clonus present.. Dermatological (-) signs of soft tissue infection, (-) open wounds, (-) tenting of the skin (-) abscess (-) other primary or secondary lesions (+) normal temperature when compared to contralateral limb (+) normal color, tugor, and elasticity.. Musculoskeletal (+) pain on palpation and with range of motion, left 1st metatarsophalangeal joint (+) Moderate bunion deformity, left 1st metatarsophalangeal joint (+) mild hammertoe lateral angular deformity, LEFT HALLUX proximal phalanx (+) hammertoes, BILATERAL rigid contracture (-) crepitation, bilateral ( previously bilateral 1st metatarsal phalangeal joint) (+) hypermobile 1st ray (-) other pain on palpation or with range of motion, BILATERAL lower extremity (+) flexible pes planus foot type, bilateral 5/5 muscle strength to extrinsic pedal muscle groups (-) evidence of compartment syndrome, (-) evidence of deep vein thrombosis X-RAYS LEFT FOOT 06/21/2023: (+) stress fracture, [...] interphalangeal joint (+) Mild-moderate plantar calcaneal spur --- X-RAYS LEFT Foot 02/05/2024: (+) moderate bunion deformity (-) fracture (-) dislocation (+) ossification at previous stress fracture, LEFT 3rd metatarsal (+) mild arthritis 2nd proximal interphalangeal joint (+) Mild-moderate plantar calcaneal spur __- MRI LEFT foot 07/17/2023: (+) Mild peroneal brevis tenosynovitis. ASSESSMENT: BUNION, LEFT > RIGHT - resolved 10/01/2023 Hammertoe, left 2nd digit --- Hammertoes, bilateral 2nd digit Fracture, left 1st metatarsal - resolved 02/09/2024 NEUROMA, LEFT 2ND INTERMETATARSAL SPACE - resolved 09/17/2023 FRACTURE, LEFT 2ND DIGIT - resolved 12/08/2023 FRACTURE, LEFT 3RD METATARSAL STRESS - resolved 08/11/2023 PLANTAR FASCIITIS, LEFT - resolved 06/11/2023. 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 4 as needed, patient had previously denied NSAIDs and steroids (allergy), but satisfied with [id number] Tylenol - CAST - patient defers, states pain manageable with immobilization boot - x-rays - reviewed - hammertoes - planning surgical correction, left foot 2nd digit, since no improvements from CREST PAD, patient states possible complications with not wearing - bunion - planning for surgical correction left since no improvements from conservative treatments - neuroma - resolved, no further treatment indicated, previously responded well to 08/11/2023 LEFT 1st intermetatarsal space, injection in a sterile fashion using 1 cc total 1:1 mix with 0.5% Marcaine plain and dexamethasone - tenosynovitis - asymptomatic, no treatment indicated, use boot as needed - plantar fasciitis - resolved, previously responded well to 05/19/2023 injection, LEFT plantar heel -----injection of 1.5cc in 1:1 mix of 1% lidocaine plain, 0.5% Marcaine plain, dexamethasone - strapping - responded well to 06/11/2023 to marley tape the 2nd digit to adjacent disease and stabilize the foot /ankle - vascular - no further studies indicated however previously ordered 06/16/2023 since patient with palpable pedal pulses, no open wounds, no ischemic tissue - Orthotics - patient defers and understands risk, discussed custom orthotics, patient would benefit from long-term arch support for functional and accommodative applications - Shoes - educated patient on appropriate shoe gear - weight-bearing - reduced in fracture boot, dispensed 05/28/2023 - PREOP LABS-ORDERED - surgery-left bunionectomy, Lalo, 2nd hammertoe correction Return 4 weeks for preop eval Patient advised to report to the [...] legally responsible person has agreed to proceed. [id number] 11:28:32Upcoming Encounters Health Maintenance Due Date Last Done Comments CT Colonography 1959 Colonoscopy 1959 Colorectal Cancer Screening 1959 FIT-DNA 1959 FIT 1959 FOBT 1959 Lipid Panel 1959 Medicare Initial Physical (IPPE) 1959 Sigmoidoscopy 1959 DTaP/Tdap/Td Vaccines (1 - Tdap) 1978 Pap Smear 1980 Cervical Cancer Screening 1989 HPV/Cotest 1989 Mammogram 1999 Zoster Vaccines (1 of 2) 2009 Respiratory Syncytial Virus (RSV) or >=60 (1 - 1-dose 60+ series) 2019 Influenza Vaccine (#1) 2024 HIB Vaccines Aged Out No longer eligi ble based on patient's age to complete this topic HPV Vaccines Aged Out No longer eligi ble based on patient's age to complete this topic Hepatitis A Vaccines Aged Out No long er eligible based on patient's age to complete this topic Hepatitis B Vaccines Aged Out No long er eligible based on patient's age to complete this topic IPV Vaccines Aged Out No longer eligi ble based on patient's age to complete this topic Meningococcal Vaccine Aged Out No mahendra inna eligible based on patient's age to complete this topic Pneumococcal Vaccine: Pediat rics (0 to 5 Years) and At-Risk Patients (6 to 64 Years) Aged Out No longer eligible b ased on patient's age to complete this topic Rotavirus Vaccines Aged Out No longer eligible based on patient's age to complete this topic [facility]jgqcy6423-19-27 11:28:32 Diagnosis Abnormal foot finding - Prim emily [facility] CenterYukezsb2903-13-47 11:28:32 [place] [id number] 11:36:16* Hiro Lawrence, ANNA - 02/02/2024 10:30 AM CDT CHIEF COMPLAINT: FRACTURE, LEFT 1ST METATARSAL HISTORY OF PRESENT ILLNESS: Patient states tripped while walking barefoot at home, January 24, 2024 Patient states she felt a pop and unable to bear weight following the injury Patient states she was wearing her previously dispensed immobilization boot which has been helpful Patient states pain currently rated 4/10 on palpation, diffuse left forefoot --- Patient states fracture is fully resolved and is very satisfied with treatment plan and results, left foot 2nd digit Patient denies pain, infection, injury, wounds 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 activities of daily living [...] 2/10 on palpation, left foot 2nd digit --- Patient states stable left foot 2nd digit fracture Patient states pain currently rated 2/10 on palpation, left 2nd digit --- Patient states she was walking barefoot at home, tripped on her animals pee-pad, causing rapid plantar flexion, left 2nd digit, October 05, 2023 Patient seen at local emergency room, provided x-rays, marley splint, postop shoe, crutches, advised to follow-up with specialist, October 05, 2023 Patient states pain currently rated 6/10 on palpation, left 2nd digit --- Patient states neuroma has improved with treatments and is very satisfied with treatment plan and results Patient states bunion and neuroma pains have previously resolved, patient now with pain with contracted hammertoes, bilateral 2nd digit Patient denies infection, injury, wounds Patient states pain currently rated 4/10 on palpation, bilateral 2nd digit --- Patient states painful bunion deformity for many years. Patient has tried multiple conservative treatments, but all do not seem to help. Patient has tried larger shoe gear, toe spacers, and over the counter orthotics. Patient requesting further more aggressive therapy Patient states pain graded 6/10 on palpation, bilateral 1st metatarsal phalangeal joint. PHYSICAL EXAM OF THE LOWER EXTREMITY: Vascular (+) mild edema, LEFT forefoot (-) ecchymosis, (-) erythema Dorsal pedis pulse, bilateral - 2/4; Posterior tibial pulse, bilateral- 2/4 Capillary Refill time: within normal limits (-) varicosities, (+) pedal hair growth. Neurological (+) sensation with 5.07 [place] monofilament examination to the most distal lower extremity (-) tinel's sign (-) clonus present.. Dermatological (-) signs of soft tissue infection, (-) open wounds, (-) tenting of the skin (-) abscess (-) other primary or secondary lesions (+) normal temperature when compared to contralateral limb (+) normal color, tugor, and elasticity.. Musculoskeletal (+) mild diffuse pain on palpation, LEFT forefoot (+) hammertoes, BILATERAL rigid contracture (-) hammertoe lateral angular deformity, within the hallux digit proximal phalanx (-) pain on palpation to the medial aspect of the 1st metatarsal head. (-) crepitation, bilateral ( previously bilateral 1st metatarsal phalangeal joint) (+) hypermobile 1st ray (-) other pain on palpation or with range of motion, BILATERAL lower extremity (+) flexible pes planus foot type, bilateral 5/5 muscle strength to extrinsic pedal muscle groups (-) evidence of compartment syndrome, (-) evidence of deep vein thrombosis X-RAYS LEFT FOOT 06/21/2023: (+) stress fracture, [...] foot 07/17/2023: (+) Mild peroneal brevis tenosynovitis. ASSESSMENT: Fracture, left 1st metatarsal --- Hammertoe, left 2nd digit BUNION, LEFT > RIGHT - resolved 10/01/2023 NEUROMA, LEFT 2ND INTERMETATARSAL SPACE - resolved 09/17/2023 Hammertoes, bilateral 2nd digit FRACTURE, LEFT 2ND DIGIT - resolved 12/08/2023 FRACTURE, LEFT 3RD METATARSAL STRESS - resolved 08/11/2023 PLANTAR FASCIITIS, LEFT - resolved 06/11/2023. TREATMENT PLAN: - Extensive visit discussing possible pedal complications from fractures due to hammertoe deformities and multiple other comorbidities - PAIN - well controlled with [id number]-[id number], continue with previous [employer] S[employer]S TECHNICIAN CONSULT continue previously prescribed 05/28 TYLENOL NO. 4 as needed, patient had previously denied NSAIDs and steroids (allergy), but satisfied with [id number] Tylenol - CAST - patient defers, states pain manageable with immobilization boot - X-RAYS - ORDERED 02/01 - hammertoes - MUST USE CREST PAD, [...] boot as needed - plantar fasciitis - resolved, previously responded well to 05/19/2023 injection, LEFT plantar heel -----injection of 1.5cc in 1:1 mix of 1% lidocaine plain, 0.5% Marcaine plain, dexamethasone - strapping - responded well to 06/11/2023 to marley tape the 2nd digit to adjacent disease and stabilize the foot /ankle - vascular - no further studies indicated however previously ordered 06/16/2023 since patient with palpable pedal pulses, no open wounds, no ischemic tissue - Orthotics - patient defers and understands risk, discussed custom orthotics, patient would benefit from long-term arch support for functional and accommodative applications - Shoes - educated patient on appropriate shoe gear - weight-bearing - reduced in fracture boot, dispensed 05/28/2023 Return 2 weeks for fracture eval Patient advised to report to the [...] legally responsible person has agreed to proceed. Nellie [facility] [id number] 11:36:16Upcoming Encounters Health Maintenance Due Date Last Done Comments CT Colonography 1959 Colonoscopy 1959 Colorectal Cancer Screening 1959 FIT-DNA 1959 FIT 1959 FOBT 1959 Lipid Panel 1959 Medicare Initial Physical (IPPE) 1959 Sigmoidoscopy 1959 DTaP/Tdap/Td Vaccines (1 - Tdap) 1978 Pap Smear 1980 Cervical Cancer Screening 1989 HPV/Cotest 1989 Mammogram 1999 Zoster Vaccines (1 of 2) 2009 Respiratory Syncytial Virus (RSV) or >=60 (1 - 1-dose 60+ series) 2019 Influenza Vaccine (#1) 2024 HIB Vaccines Aged Out No longer eligi ble based on patient's age to complete this topic HPV Vaccines Aged Out No longer eligi ble based on patient's age to complete this topic Hepatitis A Vaccines Aged Out No long er eligible based on patient's age to complete this topic Hepatitis B Vaccines Aged Out No long er eligible based on patient's age to complete this topic IPV Vaccines Aged Out No longer eligi ble based on patient's age to complete this topic Meningococcal Vaccine Aged Out No mahendra inna eligible based on patient's age to complete this topic Pneumococcal Vaccine: Pediat rics (0 to 5 Years) and At-Risk Patients (6 to 64 Years) Aged Out No longer eligible b ased on patient's age to complete this topic Rotavirus Vaccines Aged Out No longer eligible based on patient's age to complete this topic [facility] CenterVctudex5680-75-12 11:36:16 Diagnosis Abnormal foot finding - [place] diaz [facility] CenterUnazhzq1187-79-59 11:36:16 [facility] CenterMxjkrwp2218-96-31 11:36:16* Hiro Lawrence, BENNY - 02/02/2024 10:30 AM CDT CHIEF COMPLAINT: FRACTURE, LEFT 1ST METATARSAL HISTORY OF PRESENT ILLNESS: Patient states tripped while walking barefoot at home, January 24, 2024 Patient states she felt a pop and unable to bear weight following the injury Patient states she was wearing her previously dispensed immobilization boot which has been helpful Patient states pain currently rated 4/10 on palpation, diffuse left forefoot --- Patient states fracture is fully resolved and is very satisfied with treatment plan and results, left foot 2nd digit Patient denies pain, infection, injury, wounds 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 activities of daily living [...] 2/10 on palpation, left foot 2nd digit --- Patient states stable left foot 2nd digit fracture Patient states pain currently rated 2/10 on palpation, left 2nd digit --- Patient states she was walking barefoot at home, tripped on her animals pee-pad, causing rapid plantar flexion, left 2nd digit, October 05, 2023 Patient seen at local emergency room, provided x-rays, marley splint, postop shoe, crutches, advised to follow-up with specialist, October 05, 2023 Patient states pain currently rated 6/10 on palpation, left 2nd digit --- Patient states neuroma has improved with treatments and is very satisfied with treatment plan and results Patient states bunion and neuroma pains have previously resolved, patient now with pain with contracted hammertoes, bilateral 2nd digit Patient denies infection, injury, wounds Patient states pain currently rated 4/10 on palpation, bilateral 2nd digit --- Patient states painful bunion deformity for many years. Patient has tried multiple conservative treatments, but all do not seem to help. Patient has tried larger shoe gear, toe spacers, and over the counter orthotics. Patient requesting further more aggressive therapy Patient states pain graded 6/10 on palpation, bilateral 1st metatarsal phalangeal joint. PHYSICAL EXAM OF THE LOWER EXTREMITY: Vascular (+) mild edema, LEFT forefoot (-) ecchymosis, (-) erythema Dorsal pedis pulse, bilateral - 2/4; Posterior tibial pulse, bilateral- 2/4 Capillary Refill time: within normal limits (-) varicosities, (+) pedal hair growth. Neurological (+) sensation with 5.07 [place] monofilament examination to the most distal lower extremity (-) tinel's sign (-) clonus present.. Dermatological (-) signs of soft tissue infection, (-) open wounds, (-) tenting of the skin (-) abscess (-) other primary or secondary lesions (+) normal temperature when compared to contralateral limb (+) normal color, tugor, and elasticity.. Musculoskeletal (+) mild diffuse pain on palpation, LEFT forefoot (+) hammertoes, BILATERAL rigid contracture (-) hammertoe lateral angular deformity, within the hallux digit proximal phalanx (-) pain on palpation to the medial aspect of the 1st metatarsal head. (-) crepitation, bilateral ( previously bilateral 1st metatarsal phalangeal joint) (+) hypermobile 1st ray (-) other pain on palpation or with range of motion, BILATERAL lower extremity (+) flexible pes planus foot type, bilateral 5/5 muscle strength to extrinsic pedal muscle groups (-) evidence of compartment syndrome, (-) evidence of deep vein thrombosis X-RAYS LEFT FOOT 06/21/2023: (+) stress fracture, [...] foot 07/17/2023: (+) Mild peroneal brevis tenosynovitis. ASSESSMENT: Fracture, left 1st metatarsal --- Hammertoe, left 2nd digit BUNION, LEFT > RIGHT - resolved 10/01/2023 NEUROMA, LEFT 2ND INTERMETATARSAL SPACE - resolved 09/17/2023 Hammertoes, bilateral 2nd digit FRACTURE, LEFT 2ND DIGIT - resolved 12/08/2023 FRACTURE, LEFT 3RD METATARSAL STRESS - resolved 08/11/2023 PLANTAR FASCIITIS, LEFT - resolved 06/11/2023. 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 4 as needed, patient had previously denied NSAIDs and steroids (allergy), but satisfied with [id number] Tylenol - CAST - patient defers, states pain manageable with immobilization boot - X-RAYS - ORDERED 02/01 - hammertoes - MUST USE CREST PAD, [...] boot as needed - plantar fasciitis - resolved, previously responded well to 05/19/2023 injection, LEFT plantar heel -----injection of 1.5cc in 1:1 mix of 1% lidocaine plain, 0.5% Marcaine plain, dexamethasone - strapping - responded well to 06/11/2023 to marley tape the 2nd digit to adjacent disease and stabilize the foot /ankle - vascular - no further studies indicated however previously ordered 06/16/2023 since patient with palpable pedal pulses, no open wounds, no ischemic tissue - Orthotics - patient defers and understands risk, discussed custom orthotics, patient would benefit from long-term arch support for functional and accommodative applications - Shoes - educated patient on appropriate shoe gear - weight-bearing - reduced in fracture boot, dispensed 05/28/2023 Return 2 weeks for fracture eval Patient advised to report to the [...] legally responsible person has agreed to proceed. [facility] [id number] 11:36:16Upcoming Encounters Health Maintenance Due Date Last Done Comments CT Colonography 1959 Colonoscopy 1959 Colorectal Cancer Screening 1959 FIT-DNA 1959 FIT 1959 FOBT 1959 Lipid Panel 1959 Medicare Initial Physical (IPPE) 1959 Sigmoidoscopy 1959 DTaP/Tdap/Td Vaccines (1 - Tdap) 1978 Pap Smear 1980 Cervical Cancer Screening 1989 HPV/Cotest 1989 Mammogram 1999 Zoster Vaccines (1 of 2) 2009 Respiratory Syncytial Virus (RSV) or >=60 (1 - 1-dose 60+ series) 2019 Influenza Vaccine (#1) 2024 HIB Vaccines Aged Out No longer eligi ble based on patient's age to complete this topic HPV Vaccines Aged Out No longer eligi ble based on patient's age to complete this topic Hepatitis A Vaccines Aged Out No long er eligible based on patient's age to complete this topic Hepatitis B Vaccines Aged Out No long er eligible based on patient's age to complete this topic IPV Vaccines Aged Out No longer eligi ble based on patient's age to complete this topic Meningococcal Vaccine Aged Out No mahendra inna eligible based on patient's age to complete this topic Pneumococcal Vaccine: Pediat rics (0 to 5 Years) and At-Risk Patients (6 to 64 Years) Aged Out No longer eligible b ased on patient's age to complete this topic Rotavirus Vaccines Aged Out No longer eligible based on patient's age to complete this topic [id number] 11:36:16 Diagnosis Abnormal foot finding - Prim [facility]2024-07-29 11:36:16 [place] [id number] 16:12:27 [place] [id number] 16:12:27 Diagnosis Abnormal foot finding - Prim [facility]2024-07-02 16:12:27 [place] [id number] 16:12:27* Hiro Lawrence, BENNY - 12/08/2023 12:00 PM [...] injury, wounds 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 Neurological (+) sensation with 5.07 [place] monofilament examination to the most distal [...] reviewed - PAIN - well controlled with [id number]-uzr-lipemhg, however patient previously seen by PAIN MANAGEMENT CONSULT continue previously prescribed 05/28 TYLENOL NO. 4 as needed, patient had previously denied NSAIDs and steroids (allergy), but satisfied with [id number]-[id number] Tylenol - vascular - no further studies [...] legally responsible person has agreed to proceed. 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 Neurological (+) sensation with 5.07 [place] monofilament examination to the most distal [...] reviewed - PAIN - well controlled with pozs-xkh-gmowria, however patient previously seen by PAIN MANAGEMENT CONSULT continue previously prescribed 05/28 TYLENOL NO. 4 as needed, patient had previously denied NSAIDs and steroids (allergy), but satisfied with [id number] Tylenol - vascular - no further studies [...] legally responsible person has agreed to proceed. [place] [id number] 16:12:26 [place] [address]-07-02 16:12:26 Diagnosis Abnormal foot finding - Prim emily [facility] CenterLqfjlak6576-63-99 16:12:26 [place] [id number] 17:51:24 PT also refused dc vitals [facility] 17:48:45 Pt given printed and verbal discharge instructions regarding dysphagia, pt signed the dc paper and threw at nurses's face. Pt did not take her dc paper upon discharge and left the room. Pt was given full explanation of her condition by ABEL Brower, prior to discharge. [id number] 15:36:27 Pt to ed with 32 oz soda. Alert and ambulatory via pov. Vss. C/o difficulty swallowing since January 12 after falling. Has been dealing with same issue since then with no worsening of condition. Statesthat liquids are worse and has had aspiration PNA. Has seen primary doctor about concerns. Went to neurologist yesterday.no new concerns. Denies any other symptoms at this time. Lina Rao [facility]"
--- NOTE | 2024-06-01 02:11 | ER ---
Nurse's Notes [facility] Name: Dolores Pérez Age: 64 yrs Sex: Female : 1960 Arrival Date: 06/01/2024 Time: 00:27 Bed 6 Private MD: Diagnosis: Sprain of toe Presentation: 06/01 00:35 Chief complaint: Patient states: I INJURED MY TOE OF RIGHT FOOT, I AM CONCERNED IT ha1 MIGHT BE BROKEN. 00:35 Coronavirus screen: Vaccine status: At this time, the client does not indicate any ha1 symptoms associated with coronavirus-19. Ebola Screen: No symptoms or risks identified at this time. Initial Sepsis Screen: Does the patient meet any 2 criteria? No. Patient's initial sepsis screen is negative. Does the patient have a suspected source of infection? No. Patient's initial sepsis screen is negative. Risk Assessment: Do you want to hurt yourself or someone else? Patient reports no desire to harm self or others. Onset of symptoms was June 01, 2024. 00:35 Method Of Arrival: Wheelchair ha1 00:35 Acuity: AARON 4 ha1 Triage Assessment: 00:35 General: Appears uncomfortable, Behavior is cooperative. Pain: Complains of pain in ha1 right second toe Pain does not radiate. Pain currently is 7 out of 10 on a pain scale. Quality of pain is described as aching. Neuro: Level of Consciousness is awake, alert, obeys commands, Oriented to person, place, time, situation. Cardiovascular: Capillary refill < 3 seconds Patient's skin is warm and dry. Respiratory: Airway is patent Respiratory effort is even, unlabored, Respiratory pattern is regular, symmetrical. Musculoskeletal: Circulation, motion, and sensation intact. Historical: - Allergies: 00:35 Aspirin; ha1 00:35 grapes; ha1 00:35 NSAIDS; ha1 00:35 ORANGES; ha1 00:35 peanuts; ha1 00:35 Prednisone; ha1 00:35 sesame seed; ha1 00:35 Sulfa (Sulfonamide Antibiotics); ha1 - PMHx: 00:35 Anxiety; Asthma; COPD; depressive disorder; diabetes mellitus; High Cholesterol; ha1 Hypertension; Hypothyroidism; Transient cerebral ischemia; - PSHx: 00:35 COLON TUMOR REMOVAL (2022); ha1 - Immunization history:: Adult Immunizations up to date. - Infectious Disease History:: Denies. - Social history:: Smoking status: unknown. Screenin:07 [facility] ED Fall Risk Assessment (Adult) History of falling in the last 3 months, ha1 including since admission Yes- single mechanical fall (1 pt) Confusion or Disorientation No (0 pts) Intoxicated or Sedated No (0 pts) Impaired Gait Yes (1 pt) Mobility Assist Device Used Yes (1 pt) Altered Elimination No (0 pt) Score/Fall Risk Level 3 or more points = High Risk Oriented to surroundings, Maintained a safe environment, Educated pt \T\ family on fall prevention, incl call for assistance when getting out of bed, Hourly rounding (assess needs \T\ fall precautionary measures) done. Abuse screen: Denies threats or abuse. Denies injuries from another. Nutritional screening: No deficits noted. Tuberculosis screening: No symptoms or risk factors identified. Assessment: 02:48 General: Appears in no apparent distress. comfortable. Pain: Complains of pain in right mt4 leg. Vital Signs: 00:35 BP 124 / 56; Pulse 64; Resp 17 S; Temp 97.2(T); Pulse Ox 98% on R/A; Weight 51.71 kg; ha1 Height 5 ft. 4 in. ; 01:40 BP 119 / 55; Pulse 62; Resp 18; Pulse Ox 98% ; cp4 02:40 BP 135 / 64; Pulse 58; Resp 19; Temp 97.9(O); Pulse Ox 100% on R/A; mt4 00:35 Body Mass Index 19.57 (51.71 kg, 162.56 cm) 1 ED Course: 00:30 Patient arrived in ED. jj6 00:35 Patient has correct armband on for positive identification. Bed in low position. Call ha1 light in reach. Side rails up X 1. 00:38 Serina Rogers PA-C is PHCP. sb4 00:38 Amrit Eaton MD is Attending Physician. sb4 00:51 Triage completed. ha1 01:11 Foot Right 3 View XRAY In Process Unspecified. EDMS 01:40 Mackenzie Durant is Primary Nurse. cp4 02:10 Nick Rose DPM is Referral Physician. sb4 02:40 Provided Education on: safety. Assisted to bathroom. mt4 02:40 No provider procedures requiring assistance completed. Patient did not have IV access mt4 during this emergency room visit. 02:48 Arm band placed on right wrist. mt4 Administered Medications: No medications were administered Medication: 02:48 VIS not applicable for this client. mt4 Outcome: 02:11 Discharge ordered by . sb4 02:40 Condition: stable mt4 02:40 Discharge instructions given to patient, Instructed on discharge instructions, follow up and referral plans. medication usage, Demonstrated understanding of instructions, follow-up care, medications, 02:48 Discharged to home ambulatory, mt4 02:49 Patient left the ED. mt4 Signatures: Dispatcher [employer] EDMS Minnie Alonzo [email or web address] Anna Lozano, RN RN Serina Westbrook PAIbethC PACriselda [email or web address] Mackenzie Durant cp4 Jamilah Vazquez, RN RN mt4
--- NOTE | 2024-06-01 02:11 | EDPHYS ---
Physician Documentation [facility] Name: Dolores Pérez Age: 64 yrs Sex: Female : 1960 Arrival Date: 06/01/2024 Time: 00:27 Bed 6 Private MD: MICHEAL Physician Amrit Eaton HPI: 06/01 00:51 This 64 yrs old Female presents to ER via Unassigned with complaints of Toe Injury. sb4 00:51 The patient presents with an injury, pain, that is acute, swelling. The complaints sb4 affect the right second toe. 00:51 Context: The problem was sustained at home, resulted from stubbing toe on furniture. sb4 the patient can fully bear weight, the patient is able to ambulate, with mild difficulty. Onset: The symptoms/episode began/occurred just prior to arrival. Modifying factors: The symptoms are alleviated by nothing, the symptoms are aggravated by weight bearing, movement. The patient has experienced similar episodes in the past, a few times. The patient has been recently seen by a physician:. Historical: - Allergies: 00:35 Aspirin; ha1 00:35 grapes; ha1 00:35 NSAIDS; ha1 00:35 ORANGES; ha1 00:35 peanuts; ha1 00:35 Prednisone; ha1 00:35 sesame seed; ha1 00:35 Sulfa (Sulfonamide Antibiotics); ha1 - PMHx: 00:35 Anxiety; Asthma; COPD; depressive disorder; diabetes mellitus; High Cholesterol; ha1 Hypertension; Hypothyroidism; Transient cerebral ischemia; - PSHx: 00:35 COLON TUMOR REMOVAL (2022); ha1 - Immunization history:: Adult Immunizations up to date. - Infectious Disease History:: Denies. - Social history:: Smoking status: unknown. ROS: 00:51 MS/extremity: Positive for injury or acute deformity, pain, tenderness, of the right sb4 second toe, 00:51 Constitutional: Negative for fever, chills, and weight loss, 00:51 All other systems are negative, Exam: 00:51 Constitutional: This is a well developed, well nourished patient who is awake, alert, sb4 and in no acute distress. Head/Face: Normocephalic, atraumatic. Eyes: Extra-ocular motions intact. Periorbital areas with no swelling, redness, or edema. ENT: Mucous membranes moist. 00:51 Musculoskeletal/extremity: Circulation is intact in all extremities. Pulses: are normal with no appreciated deficits, Perfusion: the extremity is normally perfused throughout, Sensation intact. Weight bearing: able to fully bear weight, right second toe swollen, painful ROM. Vital Signs: 00:35 BP 124 / 56; Pulse 64; Resp 17 S; Temp 97.2(T); Pulse Ox 98% on R/A; Weight 51.71 kg; ha1 Height 5 ft. 4 in. ; 01:40 BP 119 / 55; Pulse 62; Resp 18; Pulse Ox 98% ; cp4 02:40 BP 135 / 64; Pulse 58; Resp 19; Temp 97.9(O); Pulse Ox 100% on R/A; mt4 00:35 Body Mass Index 19.57 (51.71 kg, 162.56 cm) ha1 MDM: 00:39 Medical Screening Exam initiated sb4 01:10 Independent interpretation of the following test(s) in the Emergency Department X-Ray: sb4 My interpretation is my interpretation of the right foot xray images is no toe fracture or dislocation. 02:10 Data reviewed: vital signs, nurses notes, radiologic studies, I have discussed the sb4 patient's presentation/case with the attending Emergency Department Physician; and as a result, I will discharge patient. Counseling: I had a detailed discussion with the patient and/or guardian regarding the historical points, exam findings, and any diagnostic results supporting the discharge/admit diagnosis, radiology results, to return to the emergency department if symptoms worsen or persist or if there are any questions or concerns that arise at home. 06/01 00:45 Order name: Foot Right 3 View XRAY sb4 Administered Medications: No medications were administered Disposition: 03:08 Co-signature as Attending Physician, Amrit Eaton MD I reviewed the patient's care rt provided by the Advanced Practice Provider and agree with the diagnosis and treatment plan. Disposition Summary: 06/01/24 02:11 Discharge Ordered Notes: Location: Home sb4 Problem: new sb4 Symptoms: have improved sb4 Condition: Stable sb4 Diagnosis - Sprain of toe sb4 Followup: sb4 - With: Nick Rose DPM - When: 1 week - Reason: Recheck today's complaints, Re-evaluation by your physician Discharge Instructions: - Discharge Summary Sheet sb4 - Foot Sprain sb4 Forms: - Patient Portal Instructions sb4 - Leadership Thank You Letter sb4 Signatures: Dispatcher [employer] Anna Kingsley RN RN Serina Westbrook, JAIME SANDOVAL sb4 Amrit Eaton MD MD rt Corrections: (The following items were deleted from the chart) 00:52 00:51 The patient presents with an injury, pain, that is acute, swelling, sb4 sb4
--- NOTE | 2024-06-01 06:10 | RAD REPORT ---
EXAM: XR Right Foot Complete, 3 or More Views CLINICAL HISTORY: 2nd toe injury. TECHNIQUE: Frontal, lateral and oblique views of the right foot. COMPARISON: No relevant prior studies available. FINDINGS: Bones/joints: Unremarkable. No acute fracture. No dislocation. Soft tissues: Unremarkable. No radiopaque foreign body. IMPRESSION: No acute injury. Electronically signed by: Francisco Quesada MD 06/01/2024 02:50 AM [facility] Due to temporary technical issues with the PACS/[employer] reporting system, reports are being nicki d by the in-house radiologist without review as a courtesy to ensure prompt reporting the interpreting radiologist is fully responsible for the content of the report. Transcribed Date/Time: 06/01/2024 6:10 AM
[2024-06-01 09:40] VITALS: BP 135/64; TEMP 97.9; O2SAT 100
== END 2024-06-01 02:49 | disposition home or self-care (01) ==
LOC: ER 00:27
DX: S93.504A Unspecified sprain of right lesser toe(s), initial encounter (principal)
CPT/HCPCS: 99283

== ENCOUNTER 2024-07-02 18:56 | Emergency (ER) | payer OTHER, MEDICARE ==
--- OUTSIDE RECORDS SUMMARY | 2024-07-02 19:01 | XMS REPORT | Continuity of Care Document ---
Author Name Unknown Address [address] [facility] [place] [address] [facility] [address] [facility] [place] [address] Care Team Providers Care Shoe Treer Name Role Phone Rigo Bolton MD Primary Care Physician [phone] Selbst Hiro ZAPATA Attending Clinician [phone]- [phone] HIRO LAWRENCE Attending Clinician Unavail able TOAN INGRAM Attending Clinician Unavailab Toan Barahona NP Attending Clinician [phone] Maile Granados MA Attending Clinician Unavailabl Jw Steiner MA Attending Clinician Unava ilable LIZZETH ELLIS Attending Clinician Unavailabl Lizzeth Ruvalcaba Attending Clinician [phone] Unknown, Attending Attending Clinician Unavailab Neida Faye Attending Clinician Unavailable Neida Jiménez Attending Clinician [phone] Portia Rodriguez Attending Clinician [phone] PORTIA MORRISON Attending Clinician Unavailable Doctor Unassigned, Thomson Attending Clinician U navailable Only, Ang Db Test Attending Clinician UnavailDonna Galdamez MD Attending Clinician [phone] DONNA NICOLE Attending Clinician Unavailable ALEX OCONNELL Attending Clinician Unavailmemo Oconnell ACNP, Alex Attending Clinician [phone] SHERRILL CONNOR Attending Clinician Unavailable Nikolas BARON, Sherrill Attending Clinician [phone] CAMERON DALTON Attending Clinician Unavailable Miki DIRECTOR SEMICONDUCTOR, Cameron Attending Clinician Jeremiah STANLEY, Nirmala Roldan Attending Clinician Unavailab DARIUS Sen Attending Clinician Unavailable Darius Barragan Attending Clinician [phone] AJ CASTANO Attending Clinician Unavailable Ebrahim DIRECTOR SEMICONDUCTOR, Aj Attending Clinician [phone] MARCELINA CHE Attending Clinician Unavailable Marcelina Che MD Attending Clinician [phone] MAYTE ISSA Attending Clinician Unavailable Lab, Adc Fam Pob I Attending Clinician Unavailab reji Issa DIRECTOR SEMICONDUCTOR, Mayte Attending Clinician Diana Berg DO Attending Clinician [phone] Shannon DIRECTOR SEMICONDUCTOR, Mariangel Caballero Attending Clinician TOAN INGRAM Admitting Clinician Unavailab Neida Faye Admitting Clinician Unavailable ALEX OCONNELL Admitting Clinician UnavailCAMERON Gibson Admitting Clinician Unavailable DARIUS LEDESMA Admitting Clinician Unavailable AJ CASTANO Admitting Clinician Unavailable MARCELINA CHE Admitting Clinician Unavailable Marcelina Che MD Admitting Clinician [phone] Payers Payer Name Policy Type Policy Number Effective Date Expirati on Date Source DILEEP II [id number] 2016 00:00:00 MEDICARE PART A AND B Medicare [id number] 2024 00:00:00 [facility] MEDICARE SUPPLEMENT [id number] 2024 00:00:00 CIGISMAEL COMM [id number] 2007 00:00:00 Problems Condition Name Condition Details Condition Category Status Onset Date Resolution Date Last Treatment Date Treating Clinician Comments Source Injury of right foot, initial encounter Injury of right foot, initial encounter Disease Active 2023-07 00:00: 00 [facility] Primary hypertensi on Primary hypertensi on Disease Active 2020-07 00:00: 00 [facility] Other hyperlipid emia Other hyperlipid emia Disease Active 2020-07 00:00: 00 [facility] History of arterial ischemic stroke History of arterial ischemic stroke Disease Active 2020-07 00:00: 00 [facility] Chest pain Chest pain Disease Active 2020-07 00:00: 00 [facility] Primary hypothyroi dism Primary hypothyroi dism Disease Active 10-14 00:00: 00 [facility] Primary hypothyroi dism Primary hypothyroi dism Disease Active 10-14 00:00: 00 [facility] Allergies, Adverse Reactions, Alerts Allergy Name Allergy Type Status Severity Reaction(s) Onset Date Inactive Date Treating Clinician Comments Source Grape (Artific ial) Flavorin g Agent (Non-Scr eening) Propensi ty to adverse reaction s Active 03-22 00:00: 00 Virgilio Love Grape (Artific ial) Flavor Propensi ty to adverse reaction s Active 03-22 00:00: 00 Virgilio Guzman [facility] [place] (Diagnos tic) Propensi ty to adverse reaction s Active 03-22 00:00: 00 Virgilio Love Peanut-C ontainin g Drug Products Propensi ty to adverse reaction s Active 03-22 00:00: 00 Virgilio Guzman Epic Predniso ne Propensi ty to adverse reaction s Active 03-22 00:00: 00 Virgilio Guzman Epic Sulfa Antibiot ics Propensi ty to adverse reaction s Active 03-22 00:00: 00 Virgilio Guzman Epic ALBA DRUG INGREDI Active Anaphylaxis - 00:00: 00 [facility] [place] Propensi ty to adverse reaction s Active Anaphylaxis - 00:00: 00 [facility] NAPROXEN SODIUM DRUG INGREDI Active Rash 2020-07 00:00: 00 [facility] METFORMI N DRUG INGREDI Active Diarrhea 2020-07 00:00: 00 [facility] Naproxen Sodium Propensi ty to adverse reaction s Active Rash 2020-07 00:00: 00 Able to take ibuprofen and asa [facility] Metformi n Propensi ty to adverse reaction s Active Diarrhea 2020-07 00:00: 00 [facility] SESAME Drug Class Active Anaphylaxis 0 03-11 00:00: 00 [facility] Sesame Propensi ty to adverse reaction s Active Anaphylaxis 0 03-11 00:00: 00 [facility] PEANUT DRUG INGREDI Active Anaphylaxis 2017-07 0 00:00: 00 [facility] PREDNISO NE DRUG INGREDI Active Other-Cmnt 2017-07 0- 00:00: 00 [facility] Peanut Propensi ty to adverse reaction s Active Anaphylaxis 2017-07 0 00:00: 00 [facility] Predniso ne Propensi ty to adverse reaction s Active Other - See comments 2017-07 006 00:00: 00 Leg cramps [facility] ASPIRIN DRUG INGREDI Active Unknown-Cmnt 4 00:00: 00 [facility] NSAIDS (NON-RYAN ROIDAL ANTI-INF LAMMATOR Y DRUG) Drug Class Active Hives 4 00:00: 00 [facility] SULFA (SULFONA MIDE ANTIBIOT ICS) Drug Class Active Rash 4 00:00: 00 [facility] Aspirin Propensi ty to adverse reaction s Active Rash 10-14 00:00: 00 [facility] Nsaids (Non-Ryan roidal Anti-Inf lammator y Drug) Propensi ty to adverse reaction s Active Hives 10-14 00:00: 00 [facility] Sulfa (Sulfona mide Antibiot ics) Propensi ty to adverse reaction s Active Rash 10-14 00:00: 00 [facility] Sulfa (Sulfona mide Antibiot ics) Propensi ty to adverse reaction s Active Rash 4-10 00:00: 00 [facility] ALLERGIE S NOT ON FILE [...] NOT ON FILE SYSTEMIC Active Memoria sonali Guzman Epic ALLERGIE S NOT ON FILE SYSTEMIC Active [facility] Social History Social Habit Start Date Stop Date Quantity Comments Source Gender identity 2023-09-28 14:25:40 Identifies as female gender (finding) Alex Love ASSERTION Possible Alex Love Sexual orientation [facility] History of Social function 2024-06-04 00:00:00 2024-06-04 00:00:00 [facility] Exposure to SARS-CoV-2 (event) 2022-08-14 00:00:00 2022-08-24 09:35:00 Not sure [facility] Tobacco use and exposure 2022-08-24 00:00:00 2022-08-24 00:00:00 Smokeless tobacco non-user [facility] Sex assigned at 1960 00:00:00 1960 00:00:00 [facility] Smoking Status Start Date Stop Date Source Tobacco smoking consumption unknown [facility] Never smoked tobacco [facility] Medications Ordered Medication Name Filled Medication Name Start Date Stop Date Current Medication? Ordering Clinician Indication Dosage Frequency Signature (SIG) Comments Components Source cephalexin (Keflex) 500 MG capsule cephalexin (Keflex) 500 MG capsule 16 00:00: 00 04-05 23:59 :00 No [id number] 500mg Q.5D Take 1 capsule by mouth in the morning and 1 capsule in the evening. Do all this for 14 days. [facility] sonali Love HYDROcodone -acetaminop hen ([place]) 10-325 MG tablet HYDROcodone -acetaminop hen ([place]) 10-325 MG tablet 9-16 00:00: 00 03-29 23:59 :00 No [id number] 1{tbl} Q6H Take 1 tablet by mouth every 6 hours if needed for severe pain (7-10) for up to 7 days. Only take if needed for foot pain after surgery Virgilio Guzman [facility] bromphenira mine-pseudo ephedrine-D M (BROMFED DM) 2-30-10 mg/5 mL syrup 08-24 00:00: 00 Yes [id number] 5mL Take 5 mL by mouth 4 (four) times daily as needed for Congestion /Allergies . [facility] benzonatate 100 mg capsule 01-06 00:00: 00 Yes [id number] 100mg Take 1 capsule by mouth 3 (three) times daily as needed for Cough. [facility] loratadine (CLARITIN) 10 mg tablet 01-06 00:00: 00 Yes [id number] 10mg Take 1 tablet by mouth at bedtime as needed for Allergies. [facility] benzonatate 100 mg capsule 08-07 00:00: 00 Yes [id number] 100mg Take 1 capsule by mouth 3 (three) times daily as needed for Cough. [facility] ampicillin- sulbactam (UNASYN) 3 g in NaCl 0.9% (NS) 100 mL MINI-BAG 2020-07 01:00: 00 06-30 00:47 :00 No 3g 3 g, IV Piggyback, ONCE, 1 dose, On Fri06/29/21 at 1900, Administer over 30 Minutes, 100 mL
Reas on for Anti-Infec tive: Documented Infection< br>Documen zoila Infection Site: Abdominal< br>Duratio n of Therapy: Other (see Comments) [facility] iopamidol (ISOVUE 370-500 mL) injection 120 mL 2020-07 00:15: 00 06-29 23:08 :00 No [id number] 120mL 120 mL, Intravenou s, ONCE, 1 dose, On Fri06/29/21 at 1815, Routine [facility] amoxicillin -clavulanat e 875-125 mg per tablet 2020-07 00:00: 00 07-10 05:59 :00 No [id number] 1{tbl} Take 1 tablet by mouth every 12 (twelve) hours for 10 days. [facility] traMADoL 50 mg tablet 2020-07 00:00: 00 07-05 05:59 :00 No [id number] 50mg Take 1 tablet by mouth every 6 (six) hours for 5 days. Indication s: acute pain [facility] ondansetron 4 mg tablet 2020-07 00:00: 00 07-05 05:59 :00 No [id number] 4mg Take 1 tablet by mouth every 8 (eight) hours for 5 days. [facility] atorvastati n (LIPITOR) tablet 10 mg 2020-07 03:00: 00 Yes 10mg 10 mg, Oral, QHS, First dose on 05/20/21 at 2100, Until Discontinu ed, Routine [facility] atorvastati n 10 mg tablet 2020-07 17:23: 01 Yes 10mg Take 10 mg by mouth at bedtime. [facility] spironolact one 25 mg tablet 2020-07 17:23: 01 Yes 25mg Take 25 mg by mouth 2 (two) times daily. [facility] pantoprazol e sodium (PANTOPRAZO LE ORAL) 2020-07 17:23: 01 Yes 40mg Take 40 mg by mouth daily. [facility] magnesium gluconate 200 mg tablet 2020-07 17:23: 01 Yes 200mg Take 200 mg by mouth daily. At night as per pt [facility] metformin HCl (METFORMIN ORAL) 2020-07 17:23: 01 Yes 500mg Take 500 mg by mouth at bedtime. [facility] magnesium gluconate 200 mg tablet 2020-07 17:23: 01 Yes 200mg Take 200 mg by mouth daily. At night as per pt [facility] enoxaparin (LOVENOX) injection 40 mg 2020-07 15:00: 00 Yes 40mg 40 mg, Subcutaneo us, DAILY, First dose on 05/20/21 at 0900, Until Discontinu ed, Routine [facility] clopidogreL (PLAVIX) tablet 75 mg 2020-07 15:00: 00 Yes 75mg 75 mg, Oral, QAM, First dose on 05/20/21 at 0900, Until Discontinu ed, Routine [facility] ALPRAZolam (XANAX) tablet 0.5 mg 2020-07 15:00: 00 Yes .5mg 0.5 mg, Oral, DAILY, First dose on 05/20/21 at 0900, Until Discontinu ed, Routine [facility] spironolact one (ALDACTONE) tablet 25 mg 2020-07 14:00: 00 Yes 25mg 25 mg, Oral, BID, First dose on 05/20/21 at 0800, Until Discontinu ed, Routine [facility] Sliding Scale Insulin-Reg ular + Fsbg Testing 2020-07 13:30: 00 Yes Subcutaneo us, AC, First dose on 05/20/21 at 0730, Until Discontinu ed, Routine [facility] levothyroxi ne (SYNTHROID) tablet 100 mcg 2020-07 12:00: 00 Yes 100ug 100 mcg, Oral, QAM-0600, First dose on 05/20/21 at 0600, Until Discontinu ed, Routine [facility] pantoprazol e (PROTONIX) EC tablet 40 mg 2020-07 06:30: 00 Yes 40mg 40 mg, Oral, DAILY, First dose (after last modificati on) on 05/20/21 at 0030, Until Discontinu ed [facility] cyclobenzap rine (FLEXERIL) tablet 10 mg 2020-07 06:12: 13 Yes 10mg 10 mg, Oral, TIDPRN, Starting on 05/20/21 at 0012, Until Discontinu ed, Routine, Muscle Spasms, leg pain [facility] polyethylen e glycol 3350 powder 17 g 2020-07 06:04: 16 Yes 17g 17 g, Oral, [id number], Starting on 05/20/21 at 0004, Until Discontinu ed, Routine, Constipati on [facility] glucagon (GLUCAGEN DIAGNOSTIC KIT) injection 1 mg 2020-07 05:29: 29 Yes 1mg 1 mg, Intramuscu lar, PRN, Starting on 05/19/21 at 2329, Until Discontinu ed, JEFFREY, Blood Glucose < or = 70 mg/dL and patient is unable to swallow or has mental changes. [facility] dextrose 50 % in water (D50W) injection 25 mL 2020-07 05:29: 29 Yes 25mL 25 mL, Slow IV Push, PRN, Starting on 05/19/21 at 2329, Until Discontinu ed, JEFFREY, Blood Glucose < or = 70 mg/dL and patient is unable to swallow or has mental status changes. [facility] ondansetron (ZOFRAN (PF)) injection 4 mg 2020-07 05:29: 21 Yes 4mg 4 mg, Slow IV Push, Q6HPRN, Starting on 05/19/21 at 2329, Until Discontinu ed, Routine, Nausea and Vomiting (N/V) [facility] morpHINE injection 2 mg 2020-07 05:29: 11 05-21 05:28 :11 No 2mg 2 mg, Slow IV Push, Q4HPRN, Starting on 05/19/21 at 2329, Until 05/20/21 at 2328, Routine, Pain (scale 7-10), Chest pain [facility] traMADoL (ULTRAM) tablet 50 mg 2020-07 05:29: 08 05-22 05:28 :08 No 50mg 50 mg, Oral, Q8HPRN, Starting on 05/19/21 at 2329, Until 05/21/21 at 2328, Routine, Pain (scale 4-6) [facility] acetaminoph en (TYLENOL) tablet 650 mg 2020-07 05:29: 05 Yes 650mg 650 mg, Oral, Q6HPRN, Starting on 05/19/21 at 2329, Until Discontinu ed, Routine, Pain (scale 1-3) [facility] omeprazole 20 mg capsule 2020-07 23:30: 33 05-19 00:00 :00 No 20mg Take 20 mg by mouth daily. [facility] guaiFENesin 100 mg/5 mL solution 100 mg 09-14 05:00: 00 09-14 16:59 :00 No 100mg 100 mg, Oral, ONCE, 1 dose, Fri09/13/20 at 2300, Routine [facility] ketorolac (TORADOL) injection 30 mg 09-14 03:30: 00 09-14 02:27 :00 No 30mg 30 mg, Slow IV Push, ONCE, 1 dose, Fri09/13/20 at 2130, JEFFREY
Fa culty member approving Restricted medication : DIANA BERG [facility] benzonatate 100 mg capsule 09-13 00:00: 00 05-19 00:00 :00 No [id number] 100mg Take 1 capsule by mouth 3 (three) times daily as needed for Cough. [facility] ipratropium -albuterol (DUONEB) 0.5 mg-3 mg(2.5 mg base)/3 mL nebulizer solution 6 mL 07-28 02:15: 00 07-28 01:21 :00 No 6mL 6 mL, Inhalation , ONCE, 1 dose, 07/27/19 at 2015, Routine [facility] codeine-gua ifenesin (ROBITUSSIN AC) 10-100 mg/5 mL solution 10 mL 07-28 01:30: 00 07-28 00:55 :00 No 10mL 10 mL, Oral, ONCE, 1 dose, 07/27/19 at 1930, JEFFREY [facility] codeine-gua ifenesin 10-100 mg/5 mL solution 07-27 00:00: 00 Yes [id number] 10mL Take 10 mL by mouth every 6 (six) hours as needed for Cough. [facility] albuterol 2.5 mg /3 mL (0.083 %) nebulizer solution 07-27 00:00: 00 Yes [id number] 2.5mg Inhale 3 mL every 4 (four) hours as needed for Wheezing or Shortness of Breath. May also nebulize one extra every 6 hours. [facility] ondansetron (ZOFRAN (PF)) injection 4 mg 03-11 20:30: 00 03-11 19:53 :00 No 4mg 4 mg, Slow IV Push, ONCE, 1 dose, Martha 03/11/19 at 1530, JEFFREY [facility] NaCl 0.9% (NS) bolus infusion 1,000 mL 03-11 19:30: 00 03-11 20:56 :00 No 1000mL at 999 mL/hr, 1,000 mL, IV Infusion, ONCE, 1 dose, Martha 03/11/19 at 1430, JEFFREY [facility] dicyclomine (BENTYL) 10 mg capsule 03-11 00:00: 00 Yes [id number] 10mg Take 1 capsule by mouth 4 (four) times daily. [facility] ondansetron 4 mg disintegrat ing tablet 03-11 00:00: 00 Yes [id number] 4mg Take 1 tablet by mouth every 4 (four) hours as needed for Nausea and Vomiting (N/V). [facility] benzonatate 100 mg capsule 2017-07 00:00: 00 Yes 100mg Take 1 capsule by mouth 3 (three) times daily as needed for Cough. [facility] acetaminoph en-codeine (TYLENOL-CO DEINE #3) 300-30 mg tablet 2017-07 00:00: 00 09-13 00:00 :00 No 1{tbl} Take 1 tablet by mouth every 4 (four) hours as needed for Pain (scale 7-10). [facility] atorvastati n 10 mg tablet 10-14 14:40: 51 Yes 10mg Take 10 mg by mouth at bedtime. [facility] omeprazole 20 mg capsule 10-14 14:40: 51 Yes 20mg Take 20 mg by mouth daily. [facility] levothyroxi ne 125 mcg tablet 10-14 00:00: 00 Yes TAKE 1 TABLET BY MOUTH EVERY MORNING [facility] SYMBICORT 160-4.5 mcg/actuati on inhaler 10-01 00:00: 00 05-19 00:00 :00 No TAKE 2 PUFFS BY MOUTH TWICE A DAY [facility] ALPRAZolam 0.25 mg tablet 09-30 00:00: 00 Yes .5mg Take 0.5 mg by mouth daily. Pt taking 0.5mg daily [facility] diltiazem 60 mg tablet 09-30 00:00: 00 05-19 00:00 :00 No TAKE 1 TABLET BY MOUTH TWICE A DAY [facility] losartan 25 mg tablet 16 00:00: 00 05-19 00:00 :00 No TAKE 1 TABLET BY MOUTH EVERY MORNING [facility] clopidogrel 75 mg tablet 08-12 00:00: 00 Yes TAKE 1 TABLET BY MOUTH EVERY MORNING [facility] Vital Signs Vital Name Observation Time Observation Value Comments S ourruth Systolic blood pressure 2024-06-05 02:14:00 140 mm[Hg] [facility] Diastolic blood pressure 2024-06-05 02:14:00 68 mm[Hg] [facility] Heart rate 2024-06-05 02:14:00 63 /min [facility] Body temperature 2024-06-05 02:14:00 36.56 Brittany [facility] Respiratory rate 2024-06-05 02:14:00 17 /min [facility] Oxygen saturation in Arterial blood by Pulse oximetry 2024-06-05 02:14:00 100 /min [facility] Systolic blood pressure 2024-06-04 23:44:00 137 mm[Hg] [facility] Diastolic blood pressure 2024-06-04 23:44:00 77 mm[Hg] [facility] Heart rate 2024-06-04 23:44:00 72 /min [facility] Body temperature 2024-06-04 23:44:00 36.78 Brittany [facility] Respiratory rate 2024-06-04 23:44:00 20 /min [facility] Body height 2024-06-04 23:44:00 167.6 cm [facility] weight 2024-06-04 23:44:00 50.349 kg [facility] BMI 2024-06-04 23:44:00 17.92 kg/m2 [facility] Oxygen saturation in Arterial blood by Pulse oximetry 2024-06-04 23:44:00 100 /min [facility] Systolic blood pressure 2024-02-03 18:30:00 129 mm[Hg] [facility] Diastolic blood pressure 2024-02-03 18:30:00 68 mm[Hg] [facility] Heart rate 2024-02-03 18:30:00 65 /min [facility] Body temperature 2024-02-03 18:30:00 36.44 Brittany [facility] Respiratory rate 2024-02-03 18:30:00 18 /min [facility] Body weight 2024-02-03 18:30:00 53.388 kg [facility] BMI 2024-02-03 18:30:00 18.43 kg/m2 [facility] Oxygen saturation in Arterial blood by Pulse oximetry 2024-02-03 18:30:00 98 /min [facility] Systolic blood pressure 2023-02-26 20:38:00 149 mm[Hg] [facility] Diastolic blood pressure 2023-02-26 20:38:00 75 mm[Hg] [facility] Heart rate 2023-02-26 20:38:00 81 /min [facility] Body temperature 2023-02-26 20:38:00 36.72 Brittany [facility] Respiratory rate 2023-02-26 20:38:00 18 /min [facility] Body height 2023-02-26 20:38:00 170.2 cm [facility] Body weight 2023-02-26 20:38:00 57.607 kg [facility] BMI 2023-02-26 20:38:00 19.89 kg/m2 [facility] Oxygen saturation in Arterial blood by Pulse oximetry 2023-02-26 20:38:00 100 /min [facility] Systolic blood pressure 2022-08-24 15:43:00 135 mm[Hg] [facility] Diastolic blood pressure 2022-08-24 15:43:00 83 mm[Hg] [facility] Heart rate 2022-08-24 15:43:00 94 /min [facility] Body temperature 2022-08-24 15:43:00 36.83 Brittany [facility] Respiratory rate 2022-08-24 15:43:00 18 /min [facility] Body height 2022-08-24 15:43:00 170.2 cm [facility] Body weight 2022-08-24 15:43:00 58.968 kg [facility] BMI 2022-08-24 15:43:00 20.36 kg/m2 [facility] Oxygen saturation in Arterial blood by Pulse oximetry 2022-08-24 15:43:00 99 /min [facility] Systolic blood pressure 2022-01-08 02:02:00 147 mm[Hg] [facility] Diastolic blood pressure 2022-01-08 02:02:00 78 mm[Hg] [facility] Heart rate 2022-01-08 02:02:00 78 /min [facility] Respiratory rate 2022-01-08 02:02:00 18 /min [facility] Oxygen saturation in Arterial blood by Pulse oximetry 2022-01-08 02:02:00 100 /min [facility] Body temperature 2022-01-07 23:24:00 37.17 Brittany [facility] Body weight 2022-01-07 23:24:00 58.968 kg [facility] BMI 2022-01-07 23:24:00 20.36 kg/m2 [facility] Systolic blood pressure 2022-01-06 20:29:00 140 mm[Hg] [facility] Diastolic blood pressure 2022-01-06 20:29:00 106 mm[Hg] [facility] Heart rate 2022-01-06 20:29:00 102 /min [facility] Body temperature 2022-01-06 20:29:00 37.5 Brittany [facility] Respiratory rate 2022-01-06 20:29:00 16 /min [facility] Body height 2022-01-06 20:29:00 170.2 cm [facility] Body weight 2022-01-06 20:29:00 58.968 kg [facility] BMI 2022-01-06 20:29:00 20.36 kg/m2 [facility] Oxygen saturation in Arterial blood by Pulse oximetry 2022-01-06 20:29:00 99 /min [facility] Systolic blood pressure 2021-09-02 01:52:00 132 mm[Hg] [facility] Diastolic blood pressure 2021-09-02 01:52:00 75 mm[Hg] [facility] Heart rate 2021-09-02 01:52:00 67 /min [facility] Respiratory rate 2021-09-02 01:52:00 16 /min [facility] Oxygen saturation in Arterial blood by Pulse oximetry 2021-09-02 01:52:00 99 /min [facility] Body temperature 2021-09-01 23:57:00 36.17 Brittany [facility] Body height 2021-09-01 23:57:00 170.2 cm [facility] Body weight 2021-09-01 23:57:00 58.968 kg [facility] BMI 2021-09-01 23:57:00 20.36 kg/m2 [facility] Systolic blood pressure 2021-08-07 15:57:00 165 mm[Hg] [facility] Diastolic blood pressure 2021-08-07 15:57:00 71 mm[Hg] [facility] Heart rate 2021-08-07 15:57:00 97 /min [facility] Body temperature 2021-08-07 15:57:00 37.44 Brittany [facility] Respiratory rate 2021-08-07 15:57:00 18 /min [facility] Body height 2021-08-07 15:57:00 170.2 cm [facility] Body weight 2021-08-07 15:57:00 56.7 kg [facility] BMI 2021-08-07 15:57:00 19.58 kg/m2 [facility] Oxygen saturation in Arterial blood by Pulse oximetry 2021-08-07 15:57:00 98 /min [facility] Systolic blood pressure 2021-06-30 01:29:00 132 mm[Hg] [facility] Diastolic blood pressure 2021-06-30 01:29:00 75 mm[Hg] [facility] Heart rate 2021-06-30 01:29:00 75 /min [facility] Respiratory rate 2021-06-30 01:29:00 18 /min [facility] Oxygen saturation in Arterial blood by Pulse oximetry 2021-06-30 01:29:00 100 /min [facility] Body temperature 2021-06-29 22:01:00 36.67 Brittany [facility] Body weight 2021-06-29 22:01:00 53.071 kg [facility] BMI 2021-06-29 22:01:00 18.32 kg/m2 [facility] Systolic blood pressure 2021-05-20 21:45:00 137 mm[Hg] [facility] Diastolic blood pressure 2021-05-20 21:45:00 75 mm[Hg] [facility] Heart rate 2021-05-20 21:45:00 75 /min [facility] Body temperature 2021-05-20 21:45:00 36.5 Brittany [facility] Respiratory rate 2021-05-20 21:45:00 16 /min [facility] Oxygen saturation in Arterial blood by Pulse oximetry 2021-05-20 21:45:00 97 /min [facility] Body weight 2021-05-20 04:14:00 53.479 kg [facility] BMI 2021-05-20 04:14:00 18.47 kg/m2 [facility] Body height 2021-05-20 03:42:00 170.2 cm [facility] Systolic blood pressure 2020-09-14 03:30:00 147 mm[Hg] [facility] Diastolic blood pressure 2020-09-14 03:30:00 89 mm[Hg] [facility] Heart rate 2020-09-14 03:30:00 73 /min [facility] Respiratory rate 2020-09-14 03:30:00 19 /min [facility] Oxygen saturation in Arterial blood by Pulse oximetry 2020-09-14 03:30:00 97 /min [facility] Body temperature 2020-09-14 02:10:00 36.5 Brittany [facility] Body height 2020-09-14 02:09:00 170.2 cm [facility] Body weight 2020-09-14 02:09:00 61.236 kg [facility] BMI 2020-09-14 02:09:00 21.14 kg/m2 [facility] Systolic blood pressure 2020-09-14 03:30:00 147 mm[Hg] [facility] Diastolic blood pressure 2020-09-14 03:30:00 89 mm[Hg] [facility] Heart rate 2020-09-14 03:30:00 73 /min [facility] Respiratory rate 2020-09-14 03:30:00 19 /min [facility] Oxygen saturation in Arterial blood by Pulse oximetry 2020-09-14 03:30:00 97 /min [facility] Body temperature 2020-09-14 02:10:00 36.5 Brittany [facility] Body height 2020-09-14 02:09:00 170.2 cm [facility] Body weight 2020-09-14 02:09:00 61.236 kg [facility] BMI 2020-09-14 02:09:00 21.14 kg/m2 [facility] Heart rate 2019-07-28 01:36:00 70 /min [facility] Respiratory rate 2019-07-28 01:36:00 18 /min [facility] Oxygen saturation in Arterial blood by Pulse oximetry 2019-07-28 01:24:00 98 /min [facility] Systolic blood pressure 2019-07-28 01:00:00 143 mm[Hg] [facility] Diastolic blood pressure 2019-07-28 01:00:00 74 mm[Hg] [facility] Body temperature 2019-07-28 00:05:00 36.56 Brittany [facility] Body height 2019-07-28 00:05:00 170.2 cm [facility] Body weight 2019-07-28 00:05:00 68.04 kg [facility] BMI 2019-07-28 00:05:00 23.49 kg/m2 [facility] Heart rate 2019-07-28 01:36:00 70 /min [facility] Respiratory rate 2019-07-28 01:36:00 18 /min [facility] Oxygen saturation in Arterial blood by Pulse oximetry 2019-07-28 01:24:00 98 /min [facility] Systolic blood pressure 2019-07-28 01:00:00 143 mm[Hg] [facility] Diastolic blood pressure 2019-07-28 01:00:00 74 mm[Hg] [facility] Body temperature 2019-07-28 00:05:00 36.56 Brittany [facility] Body height 2019-07-28 00:05:00 170.2 cm [facility] Body weight 2019-07-28 00:05:00 68.04 kg [facility] BMI 2019-07-28 00:05:00 23.49 kg/m2 [facility] Systolic blood pressure 2019-03-11 21:00:00 141 mm[Hg] [facility] Diastolic blood pressure 2019-03-11 21:00:00 66 mm[Hg] [facility] Heart rate 2019-03-11 21:00:00 97 /min [facility] Respiratory rate 2019-03-11 21:00:00 18 /min [facility] Oxygen saturation in Arterial blood by Pulse oximetry 2019-03-11 21:00:00 97 /min [facility] Body temperature 2019-03-11 19:13:00 36.06 Brittany [facility] Body weight 2019-03-11 19:12:00 68.04 kg [facility] BMI 2019-03-11 19:12:00 23.49 kg/m2 [facility] Systolic blood pressure 2019-03-11 21:00:00 141 mm[Hg] [facility] Diastolic blood pressure 2019-03-11 21:00:00 66 mm[Hg] [facility] Heart rate 2019-03-11 21:00:00 97 /min [facility] Respiratory rate 2019-03-11 21:00:00 18 /min [facility] Oxygen saturation in Arterial blood by Pulse oximetry 2019-03-11 21:00:00 97 /min [facility] Body temperature 2019-03-11 19:13:00 36.06 Brittany [facility] Body weight 2019-03-11 19:12:00 68.04 kg [facility] BMI 2019-03-11 19:12:00 23.49 kg/m2 [facility] Procedures Procedure Date / Time Performed Performing Clinician Source BASIC METABOLIC PANEL 2024-04-08 08:13:00 Antoinette Lawrence [facility] COMP. METABOLIC PANEL (73100) 2023-02-26 21:14:00 Neida Duggan [facility] CBC WITH DIFF 2023-02-26 21:14:00 Neida Duggan [facility] CONSENT/REFUSAL FOR DIAGNOSIS AND TREATMENT 2023-02-26 20:33:07 Doctor Unassigned, Thomson [facility] POCT SARS-COV-2 ANTIGEN (BINAX NOW) 2022-08-24 15:52:00 Portia Morrison [facility] POCT MOLECULAR FLU 2022-08-24 15:51:00 Unknown, Attend ing [facility] ASSIGNMENT OF BENEFITS 2022-08-24 15:38:07 Docto r Unassigned, Thomson [facility] XR CHEST 1 VW 2022-01-08 00:24:42 Alex Oconnell [facility] RAPID STREP SCREEN FOR GROUP A 2022-01-06 20:47:00 Sherrill Connor [facility] COVID-19 (ID NOW RAPID TESTING) 2022-01-06 20:47:00 Sherrill Connor [facility] CONSENT/REFUSAL FOR DIAGNOSIS AND TREATMENT 2022-01-06 20:26:18 Doctor Unassigned, Thomson [facility] RAPID INFLUENZA A/B 2021-09-02 00:47:00 Apryl Dalton [facility] COVID-19 (ID NOW RAPID TESTING) 2021-09-02 00:47:00 Cameron Dalton [facility] XR CHEST 2 2021-09-02 00:27:31 Cameron Dalton [facility] CONSENT/REFUSAL FOR DIAGNOSIS AND TREATMENT 2021-09-01 23:46:25 Doctor Unassigned, Thomson [facility] XR CHEST 2 2021-08-07 16:43:01 Darius Ledesma [facility] CONSENT/REFUSAL FOR DIAGNOSIS AND TREATMENT 2021-08-07 15:37:28 Doctor Unassigned, Thomson [facility] CT ABDOMEN PELVIS W CONTRAST 2021-06-29 23:11:24 Aj Castano [facility] LIPASE 2021-06-29 22:18:00 Aj Castano [facility] TROPONIN I 2021-06-29 22:18:00 [facility] COMP. METABOLIC PANEL (62282) 2021-06-29 22:18:00 Aj Castano [facility] CBC WITH DIFF 2021-06-29 22:18:[address] [facility] URINALYSIS 2021-06-29 22:18:00 Aj Castano [facility] CONSENT/REFUSAL FOR DIAGNOSIS AND TREATMENT 2021-06-29 21:50:47 Doctor Unassigned, Thomson [facility] POCT GLUCOSE (AUTOMATED) 2021-05-20 17:30:00 Marcelina Che [facility] HB ECG ROUTINE & RHYTHM STRIP 2021-05-20 15:36:46 Sami Caceres [facility] TRANSTHORACIC ECHO (TTE) COMPLETE 2021-05-20 15:19:52 Esther [facility] TROPONIN I 2021-05-20 11:04:00 Marcelina Che [facility] BASIC METABOLIC PANEL (NA, K, CL, CO2, GLUCOSE, BUN, CREATININE, CA) 2021-05-20 11:04:00 Esther [facility] CBC WITH DIFF 2021-05-20 11:04:00 [facility] TROPONIN I 2021-05-20 01:56:00 [facility] XR CHEST 1 VW 2021-05-20 00:01:05 Neida Duggan [facility] LIPASE 2021-05-19 23:49:[address] [facility] MAGNESIUM 2021-05-19 23:49:00 [facility]gan [facility] TROPONIN I 2021-05-19 23:49:00 Neida Duggan [facility] COMP. METABOLIC PANEL (26309) 2021-05-19 23:49:00 Neida Duggan [facility] CBC WITH DIFF 2021-05-19 23:49:00 Neida Duggan [facility] PROTHROMBIN TIME / INR 2021-05-19 23:49:00 Neida Duggan [facility] ACTIVATED PARTIAL THRMPLAS VANI 2021-05-19 23:49:00 Neida Duggan [facility] COVID-19 (ID NOW RAPID TESTING) 2021-05-19 23:49:00 Neida Duggan [facility] CONSENT/REFUSAL FOR DIAGNOSIS AND TREATMENT 2021-05-19 23:01:42 Doctor Unassigned, Thomson [facility] URINALYSIS 2020-09-14 02:42:00 Diana [facility] XR CHEST 1 VW 2020-09-14 02:30:21 [facility] 2020-09-14 02:21:00 Diana Berg [facility] TROPONIN I 2020-09-14 02:21:00 Diana [facility] HEPATIC FUNCTION PANEL (72123) (ALB,T.PRO,BILI T,BU/BC,ALT,AST,ALK PHOS) 2020-09-14 02:21:00 Diana Berg [facility] BASIC METABOLIC PANEL (NA, K, CL, CO2, GLUCOSE, BUN, CREATININE, CA) 2020-09-14 02:21:00 Diana Berg [facility] CBC WITH DIFF 2020-09-14 02:21:00 Diana Berg [facility] N-TERMINAL PRO-BNP 2020-09-14 02:21:00 Lala Berg [facility] COVID-19 (ID NOW RAPID TESTING) 2020-09-14 02:21:00 Diana Berg [facility] NOTICE OF PRIVACY PRACTICES 2020-09-14 02:00:22 Doctor Unassigned, Thomson [facility] CONSENT/REFUSAL FOR DIAGNOSIS AND TREATMENT 2020-09-14 01:58:28 Doctor Unassigned, Thomson [facility] HEPATIC FUNCTION PANEL (15239) (ALB,T.PRO,BILI T,BU/BC,ALT,AST,ALK PHOS) 2019-07-28 00:55:00 Mariangel Ortega [facility] BASIC METABOLIC PANEL (NA, K, CL, CO2, GLUCOSE, BUN, CREATININE, CA) 2019-07-28 00:55:00 Mariangel Ortega [facility] CBC WITH DIFFERENTIAL 2019-07-28 00:55:00 Denise Ortega [facility] RAPID STREP SCREEN FOR GROUP A 2019-07-28 00:55:00 Mariangel Ortega [facility] ADC,CLC OR LCC ONLY - INFLUENZA A & B DIRECT ANTIGEN 2019-07-28 00:55:00 Mariangel Ortega [facility] CBC WITH DIFFERENTIAL 2019-07-28 00:55:00 Denise Ortega [facility] XR CHEST 2 VW 2019-07-28 00:28:40 Mariangel Ortega [facility] CONSENT/REFUSAL FOR DIAGNOSIS AND TREATMENT 2019-07-27 23:47:18 Doctor Unassigned, Thomson [facility] LIPASE 2019-03-11 19:53:[address] [facility] HEPATIC FUNCTION PANEL ([id number]) (ALB,T.PRO,BILI T,BU/BC,ALT,AST,ALK PHOS) 2019-03-11 19:53:00 Sherrill Connor [facility] BASIC METABOLIC PANEL (NA, K, CL, CO2, GLUCOSE, BUN, CREATININE, CA) 2019-03-11 19:53:00 Sherrill Connor [facility] CBC WITH DIFFERENTIAL 2019-03-11 19:53:00 Prosper Connor [facility] PROTHROMBIN TIME / INR 2019-03-11 19:53:00 Bill Connor [facility] ACTIVATED PARTIAL THRMPLAS VANI 2019-03-11 19:53:00 Sherrill Connor [facility] NOTICE OF PRIVACY PRACTICES 2019-03-11 18:56:54 Doctor Unassigned, Thomson [facility] Encounters Start Date/Time End Date/Time Encounter Type Admission Type Attending Clinicians Care Facility Care Department Encounter ID Source 2021-05-06 05:05:13 Emergency [facility] [id number] [facility] 2024-06-23 11:50:00 2024-06-23 12:38:20 Office Visit Hiro [facility] 1.2.840.114 350.1.13.70 8.2.7.2.686 [id number] Virgilio Guzman [facility] 2024-06-23 11:35:30 2024-06-23 12:38:20 Outpatient Elective [facility] EOUT [id number] [facility] 2024-05-19 00:00:00 2024-06-19 23:52:21 Telephone Hiro [facility] [place] [facility] 1.840.114 350.1.13.70 8.2.7.2.686 [id number] Virgilio Guzman [facility] 2024-06-10 12:00:52 2024-06-10 12:00:52 Outpatient [facility] [id number] Abebe Caballero [facility] 2024-06-07 12:52:28 2024-06-07 12:52:28 Outpatient [facility] [id number] Abebe Caballero Christofer 2024-06-07 09:10:00 2024-06-07 09:58:02 Office Visit [facility] 1.840.114 350...70 8.2.7.2.686 [id number] Virgilio Guzman [facility] 2024-06-07 08:50:52 2024-06-07 09:58:02 Outpatient [facility] [id number] [facility] 2024-06-04 17:47:00 2024-06-04 20:22:00 Emergency X ADETOAN DUFF [facility] ERT [id number] [facility] 2024-06-04 17:47:00 2024-06-04 20:22:00 Emergency AderibiDavid cagleil [facility] 1.84.114 350.1.13.10 4.2.7.2.686 [id number] [facility] 2024-04-26 00:00:00 2024-05-27 23:52:15 Telephone Maile Granados Melissa [facility] [place] [facility] 1.840.114 350.1.13.70 8.2.7.2.686 [id number] Virgilio Guzman [facility] 2024-05-24 11:10:00 2024-05-24 12:05:21 Office Visit SelbsHiro roldan [facility] 1.2.840.114 350.1.13.70 8.2.7.2.686 [id number] Virgilio Guzman [facility] 2024-05-24 10:48:50 2024-05-24 12:05:21 Outpatient Elective SELBSTHIRO [facility]OUT [facility] [id number] [facility] 2024-05-20 10:55:40 2024-05-20 10:55:40 Outpatient Elective SELBSTHIRO [facility]HEOUT [facility] [id number] [facility] 2024-05-19 11:30:00 2024-05-19 12:09:21 Office Visit SelHiro ruiz [facility] 1.2.840.114 350.1.13.70 8.2.7.2.686 [id number] Virgilio Guzman [facility] 2024-05-15 09:22:29 2024-05-15 09:22:29 Outpatient [facility] [id number] Abebe Caballero Christofer 2024-04-08 00:00:00 2024-05-09 23:52:37 Telephone Wanchanlpin, Onrawin Humberto, Oncarlos [facility] 1.2.840.114 350.1.13.70 8.2.7.2.686 [id number] Virgilio Guzman [facility] 2024-05-03 11:15:12 2024-05-03 12:05:34 Outpatient Elective SELBSTHIRO MHEOUT [facility] [id number] [facility] 2024-04-07 00:00:00 2024-05-03 11:40:37 Telephone SelHiro ruiz [facility] 1.2.840.114 350.1.13.70 8.2.7.2.686 [id number] [facility] 2024-05-03 11:20:00 2024-05-03 11:30:00 Office Visit SelbstHiro [facility] 1.2.840.114 350.1.13.70 8.2.7.2.686 [id number] [facility] 2024-04-26 11:46:11 2024-04-26 14:07:51 Outpatient Elective SELBSTHIRO EOUT [id number] [facility] 2024-04-26 12:00:00 2024-04-26 12:10:00 Office Visit SelbradentAbrilHiro Rocky [facility] 1.2.840.114 350.1.13.70 8.2.7.2.686 [id number] [facility] 2024-04-21 09:41:32 2024-04-21 10:32:08 Outpatient Elective SELBST, HIRO WENDY EOUT [id number] [facility] 2024-04-21 10:10:00 2024-04-21 10:20:00 Office Visit SelbradentHiro [facility] 1.2.840.114 350.1.13.70 8.2.7.2.686 [id number] [facility] 2024-04-14 07:00:00 2024-04-14 08:21:12 Outside Procedure Selbst Hiro Hidalgo Ernie [facility] 1.2.840.114 350.1.13.70 8.2.7.2.686 [id number] Virgilio lyon [facility] 2024-04-14 00:28:58 2024-04-14 08:21:12 Outpatient Elective SELBSTHIRO EOUT [id number] [facility] 2024-04-08 00:00:00 2024-04-08 20:45:43 Orders Only SelbstHiro [facility] 1.84.114 350.1.13.70 8.2.7.2.686 [id number] Virgilio lyon [facility] 2024-03-22 10:20:00 2024-03-22 10:42:35 Office Visit SelbstHiro Ernie [facility] 1.84.114 350.1.13.70 8.2.7.2.686 [id number] Virgilio lyon [facility] 2024-03-22 10:04:30 2024-03-22 10:42:35 Outpatient [id number] 2024-03-19 11:25:21 2024-03-19 11:25:21 Outpatient [facility] [id number] Abebe Caballero Christofer 2024-03-16 14:13:31 2024-03-16 14:13:31 Outpatient [facility] 10 Abebe Beaulieu 2024-02-04 00:00:00 2024-03-06 23:52:40 Maile Solano Melissa [facility] 1.840.114 350.1.13.70 8.2.7.2.686 [id number] Virgilio lyon [facility] 2024-03-01 09:50:45 2024-03-01 10:43:23 Outpatient Elective [facility]IRO [facility] [id number] [facility] 2024-03-01 10:00:00 2024-03-01 10:10:00 Consult Hiro Lawrence [facility] 1.840.114 350.1.13.70 8.2.7.2.686 [id number] Garfieldmickie Guzman [facility] 2024-02-20 10:47:33 2024-02-20 10:47:33 Outpatient [facility] [id number] Abebe Beaulieu 2024-02-11 09:36:46 2024-02-11 09:36:46 Outpatient [facility] [id number] Abebe Beaulieu 2024-02-09 10:34:43 2024-02-09 11:18:58 Outpatient Elective SELBRADENTHIRO MHEOUT [facility] [id number] [facility] 2024-02-09 10:30:00 2024-02-09 11:18:58 Office Visit Hiro [facility] 1..840.114 350.1.13.70 8.2.7.2.686 [id number] Virgilio Guzman [facility] 2024-02-03 13:20:00 2024-02-03 14:25:57 Outpatient R LIZZETH ELLIS [facility] [id number] [facility] 2024-02-03 13:20:00 2024-02-03 14:25:57 Urgent Care Lizzeth Ellis Unknown, [facility] 1..840.114 350.1.13.10 4.2.7.2.686 [id number] [facility] 2024-02-02 10:30:00 2024-02-02 11:26:38 Office Visit SelHiro ruiz [facility] 1..840.114 350.1.13.70 8.2.7.2.686 [id number] Virgilio lyon Thomas [facility] 2024-02-02 10:15:54 2024-02-02 11:26:38 Outpatient Elective SELBRADENTHIRO MHEOUT [facility] [id number] [facility] 2024-01-27 12:41:05 2024-01-27 12:41:05 Outpatient SFA SFA [id number] Abebe Beaulieu 2024-01-23 14:43:16 2024-01-23 14:43:16 Outpatient SFA SFA [id number] Abebe Beaulieu 2024-01-05 09:14:13 2024-01-05 09:14:13 Outpatient SFA [facility] [id number] Abebe Beaulieu 2024-01-01 09:49:43 2024-01-01 09:49:43 Outpatient SFA SFA [id number] Abebe Caballero Christofer 2023-12-19 12:30:25 2023-12-19 12:30:25 Outpatient SFA [facility]FA [id number] Abebe Caballero Christofer 2023-12-18 13:35:13 2023-12-18 13:35:13 Outpatient SFA SFA [id number] Abebe Caballero Christofer 2023-12-12 14:26:47 2023-12-12 14:26:47 Outpatient SFA [facility] [id number] Abebe Caballero Christofer 2023-12-08 12:00:00 2023-12-08 13:03:09 Office Visit Elective Hiro [facility] 1.2.840.114 350.1.13.70 8.2.7.2.686 [id number] Virgilio Guzman [facility] 2023-12-04 13:03:20 2023-12-04 13:03:20 Outpatient [facility]FA SFA [id number] Abebe Caballero Christofer 2023-11-24 09:38:53 2023-11-24 09:38:53 Outpatient SFA SFA [id number] Abebe Caballero Christofer 2023-11-12 10:43:39 2023-11-12 10:43:39 Outpatient [facility]FA S[facility] [id number] Abebe Caballero Christofer 2023-11-11 09:14:49 2023-11-11 09:14:49 Outpatient [facility]FA [facility]FA [id number] Abebe Caballero Christofer 2023-11-09 09:45:41 2023-11-09 09:45:41 Outpatient [facility] [id number] Abebe Beaulieu 2023-10-27 08:36:14 2023-10-27 08:36:14 Outpatient [facility] [id number] Abebe Beaulieu 2023-09-29 09:07:23 2023-09-29 09:07:23 Outpatient [facility] [id number] Abebe Beaulieu 2023-07-08 09:29:45 2023-07-08 09:29:45 Outpatient [facility] [id number] Abebe Beaulieu 2023-02-26 15:53:00 2023-02-26 17:52:00 Emergency X Neida DUGGAN [facility] ERT [id number] [facility] 2023-02-26 15:53:00 2023-02-26 17:52:00 Emergency Neida Duggan [facility] 1.840.114 350.1.13.10 4.2.7.2.686 [id number] [facility] 2022-08-24 09:40:00 2022-08-24 10:00:00 Urgent Care Portia Morrison Unknown, Attending [facility] CENTER?[facility] 1..840.114 350.1.13.10 4.2.7.2.686 [id number] [facility] 2022-08-24 09:40:00 2022-08-24 09:40:00 Outpatient R PORTIA MORRISON [facility] [id number] [facility] 2022-08-24 00:00:00 2022-08-24 00:00:00 Orders Only Doctor Unassigned, Thomson [facility] 1.840.114 350.1.13.10 4.2.7.2.686 [id number] 009 [id number] [facility] 2022-01-11 13:15:00 2022-01-11 13:30:00 Laboratory Only Only, Ang Db Test Melvin Donna [facility] 1..840.114 350.1.13.10 4.2.7.2.686 [id number] [facility] 2022-01-11 13:15:00 2022-01-11 13:24:38 Outpatient R DONNA NICOLE [facility] [id number] [facility] 2022-01-07 18:26:00 2022-01-07 21:08:00 Emergency X [facility] ERT [id number] [facility] 2022-01-07 18:26:00 2022-01-07 21:08:00 Emergency [place], [facility] 1..840.114 350.1.13.10 4.2.7.2.686 [id number] [facility] 2022-01-06 15:31:00 2022-01-06 16:32:00 Emergency X SHERRILL CONNOR [facility] ERT [id number] [facility] 2022-01-06 15:31:00 2022-01-06 16:32:00 Emergency Sherrill Connor [facility] 1..840.114 350.1.13.10 4.2.7.2.686 [id number] [facility] 2021-09-01 17:59:00 2021-09-01 19:56:00 Emergency X MITUL DALTONANNE [facility] ERT [id number] [facility] 2021-09-01 17:59:00 2021-09-01 19:56:00 Emergency Cameron Dalton [facility] 1..840.114 350.1.13.10 4.2.7.2.686 [id number] [id number] [facility] 2021-09-01 00:00:00 2021-09-01 00:00:00 Orders Only Doctor Unassigned, Thomson [facility] 1.2.840.114 350.1.13.10 4.2.7.2.686 [id number] [facility] 2021-08-08 00:00:00 2021-08-08 00:00:00 Letter (Out) Nirmala Daniels [facility] 1.2840.114 350.1.13.10 4.2.7.2.686 [id number] [facility] 2021-08-07 09:58:00 2021-08-07 11:43:00 Emergency X DARIUS LEDESMA [facility] ERT [id number] [facility] 2021-08-07 09:58:00 2021-08-07 11:43:00 Emergency Darius Ledesma [facility] 1.2840.114 350.1.13.10 4.2.7.2.686 [id number] [facility] 2021-08-07 00:00:00 2021-08-07 00:00:00 Orders Only Doctor Unassigned, Thomson [facility] 1.2840.114 350.1.13.10 4.2.7.2.686 [id number] [facility] 2021-06-29 16:04:00 2021-06-29 19:33:00 Emergency X AJ CASTANO [facility] ERT [id number] [facility] 2021-06-29 16:04:00 2021-06-29 19:33:00 Emergency Aj Castano [facility] 1.2840.114 350.1.13.10 4.2.7.2.686 [id number] [id number] [facility] 2021-05-19 17:04:00 2021-05-20 17:03:00 Outpatient X MARCELINA CHE [facility] YEISON [id number] [facility] 2021-05-19 17:04:00 2021-05-20 17:03:00 Emergency Neida [facility] 1.2.840.114 350.1.13.10 4.2.7.2.686 [id number] [facility] 2020-09-16 10:20:00 2020-09-16 10:20:00 Outpatient R [facility] [id number] [facility] 2020-09-16 09:44:15 2020-09-16 10:04:15 Laboratory Only Lab, [facility] Michela Issa [facility] [address] 1.2.840.114 350.1.13.10 4.2.7.2.686 [id number] [facility] 2020-09-16 09:44:15 2020-09-16 10:04:15 Laboratory Only Lab, [facility] Office [facility] 1.2.840.114 350.1.13.10 4.2.7.2.686 [id number] 2020-09-13 20:05:00 2020-09-13 22:24:00 Emergency Rohan Diana Díaz [facility] 1.2.840.114 350.1.13.10 4.2.7.2.686 [id number] [id number] [facility] 2020-09-13 20:05:00 2020-09-13 22:24:00 Emergency Rohan Diana Díaz [facility] 1.2.840.114 350.1.13.10 4.2.7.2.686 [id number] [id number] 2019-07-27 18:07:12 2019-07-27 20:13:00 Emergency Mariangel Ortega [facility] 1.2.840.114 350.1.13.10 4.2.7.2.686 [id number] [facility] 2019-07-27 18:07:12 2019-07-27 20:13:00 Emergency Mariangel Ortega [facility] 1.2.840.114 350.1.13.10 4.2.7.2.686 [id number] [id number] 2019-07-27 00:00:00 2019-07-27 00:00:00 Orders Only Doctor Unassigned, Thomson [facility] 1.2.840.114 350.1.13.10 4.2.7.2.686 [id number] [facility] 2019-07-27 00:00:00 2019-07-27 00:00:00 Orders Only Doctor Unassigned, Thomson [facility] 1.2.840.114 350.1.13.10 4.2.7.2.686 [id number] 2019-03-11 14:05:54 2019-03-11 16:45:00 Emergency Nikolas [facility] 1.2.840.114 350.1.13.10 4.2.7.2.686 [id number] [id number] [facility] 2019-03-11 14:05:54 2019-03-11 16:45:00 Emergency Nikolas [facility] 1.2.840.114 350.1.13.10 4.2.7.2.686 [id number] 084 [id number] Results Test Description Test Time Test Comments Results Result Co mments Source [facility]. METABOLIC PANEL (69341)2023-02-26 22:05:45* Test Item Value Reference Range Interpretation Comme nts NA (test code = 5482751563) 136 mmol/L 135-145 K (test code = 2571051428) 3.7 mmol/L 3.5-5.0 CL (test code = 8460676424) 100 mmol/L 98-108 CO2 TOTAL (test code = 3600943973) 26 mmol/L 23-31 AGAP (test code = 2513301238) 10 2-16 BUN (test code = 0720019463) 11 mg/dL 7-23 GLUCOSE (test code = 2797090239) 123 mg/dL 70-110 H CREATININE (test code = 9937521826) 0.61 mg/dL 0.50-1.04 TOTAL BILI (test code = 4782695717) 0.2 mg/dL 0.1-1.1 CALCIUM (test code = 6139461782) 9.6 mg/dL 8.6-10.6 T PROTEIN (test code = 7415429469) 7.6 g/dL 6.3-8.2 ALBUMIN (test code = 4928020007) 4.8 g/dL 3.5-5.0 ALK PHOS (test code = 8104884191) 83 U/L 34-122 ALTv (test code = 1742-6) 20 U/L 5-35 AST(SGOT) (test code = 0636958230) 28 U/L 13-40 eGFR (test code = 8237541648) 99.1 mL/min/1.73m2 MADISYN (test code = MADISYN) [...] imaging tests). Lab Interpretation (test code = 23147-7) Abnormal [facility] WITH [id number] 21:53:23* Test Item Value Reference Range Interpretation [...] g/dL 31.6-35.1 H RDW-SD (test code = 54464-3) 42.1 fL 39.0-49.9 RDW-CV (test code = 788-0) 12.9 % 12.0-15.5 PLT (test code = 777-3) 274 See_Comment [Automated messa ge] The system which generated this result transmitted reference range: 166 - 358 10*3/?L. The reference range was not used to interpret this result as normal/abnormal. MPV (test code = 40743-7) 10.4 fL 9.5-12.9 NRBC/100 WBC (test code = 7826129814) 0.0 See_Comment [Automated [employer] ssage] The system which generated this result transmitted reference range: 0.0 - 10.0 /100 WBCs. The reference range was not used to interpret this result as normal/abnormal. NRBC x10^3 (test code = 9268968058) See_Comment [Automated messa ge] The system which generated this result transmitted reference range: 10*3/?L. The reference range was not used to interpret this result as normal/abnormal. GRAN MAT (NEUT) % (test code = 770-8) 52.0 % IMM GRAN % (test code = 5688431255) 0.50 % LYMPH % (test code = 736-9) 34.2 % MONO % (test code = 5905-5) 6.8 % EOS % (test code = 713-8) 6.2 % BASO % (test code = 706-2) 0.3 % GRAN MAT x10^3(ANC) (test code = 3072900501) 3.46 10*3/uL 1.88-7.09 IMM GRAN x10^3 (test code = 5998429137) 0.03 10*3/uL 0.00-0.06 LYMPH x10^3 (test code = 731-0) 2.27 10*3/uL 1.32-3.29 MONO x10^3 (test code = 742-7) 0.45 10*3/uL 0.33-0.92 EOS x10^3 (test code = 711-2) 0.41 10*3/uL 0.03-0.39 H BASO x10^3 (test code = 704-7) 0.01-0.07 Lab Interpretation (test code = 18422-2) Abnormal [facility] MOLECULAR [id number] 16:02:31* Test Item Value Reference Range Interpretation Comme nts POCT Molecular FluA (test co de = 26885-8) Negative Negative POCT Molecular FluB (test co de = 34881-8) Negative Negative Lab Interpretation (test cod e = 77087-2) Normal [facility] SARS-COV-2 ANTIGEN (BINAX NOW)2022-08-24 15:52:00* Test Item Value Reference Range Interpretation Comme nts POCT SARS-COV-2 ANTIGEN (alfa t code = 01077-0) Not Detected Not Detected On board controls acceptable with C Line (test code = 3574) Yes Lab Interpretation (test cod e = 71491-7) Normal [facility]. METABOLIC PANEL (80785)2021-06-29 23:10:56* Test Item Value Reference Range Interpretation Comme nts NA (test code = 9689899347) 137 mmol/L 135-145 K (test code = 4750279115) 3.9 mmol/L 3.5-5.0 CL (test code = 2136436328) 102 mmol/L 98-108 CO2 TOTAL (test code = 4115558506) 27 mmol/L 23-31 AGAP (test code = 8769751261) 2-16 BUN (test code = 6126842680) 10 mg/dL 7-23 GLUCOSE (test code = 6385872019) 137 mg/dL 70-110 H CREATININE (test code = 5408687008) 0.69 mg/dL 0.50-1.04 TOTAL BILI (test code = 0467155648) 0.5 mg/dL 0.1-1.1 CALCIUM (test code = 9380558354) 9.2 mg/dL 8.6-10.6 T PROTEIN (test code = 8077281871) 7.7 g/dL 6.3-8.2 ALBUMIN (test code = 6787275314) 4.9 g/dL 3.5-5.0 ALK PHOS (test code = 8884309896) 73 U/L 34-122 ALTv (test code = 1742-6) 15 U/L 5-35 AST(SGOT) (test code = 7081956752) 21 U/L 13-40 eGFR (test code = 6744392211) mL/min/1.73m2 MADISYN (test code = MADISYN) Association [...] imaging tests). Lab Interpretation (test code = 38246-4) [facility] [id number] 22:59:27* Test Item Value Reference Range Interpretation Comments TROPONIN I (test code = 4651301016) 0.001 ng/mL See_Comment [Automated message] The system [...] of biotin. Lab Interpretation (test code = 90009-0) [facility] 22:49:29* Test Item Value Reference Range Interpretation Comme nts LIPASE (test code = 2322870767) 57 U/L 0-220 Lab Interpretation (test cod e = 32264-7) Normal [facility] WITH [id number] 22:29:28* Test Item Value Reference Range Interpretation [...] 34.2 g/dL 31.6-35.1 RDW-SD (test code = 49543-4) 43.4 fL 39.0-49.9 RDW-CV (test code = 788-0) 12.7 % 12.0-15.5 PLT (test code = 777-3) See_Comment [Automated messa ge] The system which generated this result transmitted reference range: 166 - 358 10*3/?L. The reference range was not used to interpret this result as normal/abnormal. MPV (test code = 60589-6) 10.7 fL 9.5-12.9 NRBC/100 WBC (test code = 6413034691) See_Comment [Automated [employer] ssage] The system which generated this result transmitted reference range: 0.0 - 10.0 /100 WBCs. The reference range was not used to interpret this result as normal/abnormal. NRBC x10^3 (test code = 7113088337) <0.01 See_Comment [Automated messa ge] The system which generated this result transmitted reference range: 10*3/?L. The reference range was not used to interpret this result as normal/abnormal. GRAN MAT (NEUT) % (test code = 770-8) 68.6 % IMM GRAN % (test code = 0196261739) 0.40 % LYMPH % (test code = 736-9) 22.9 % MONO % (test code = 5905-5) 6.3 % EOS % (test code = 713-8) 1.6 % BASO % (test code = 706-2) 0.2 % GRAN MAT x10^3(ANC) (test code = 4146457658) 6.89 10*3/uL 1.88-7.09 IMM GRAN x10^3 (test code = 9166998710) 0.04 10*3/uL 0.00-0.06 LYMPH x10^3 (test code = 731-0) 2.30 10*3/uL 1.32-3.29 MONO x10^3 (test code = 742-7) 0.63 10*3/uL 0.33-0.92 EOS x10^3 (test code = 711-2) 0.16 10*3/uL 0.03-0.39 BASO x10^3 (test code = 704-7) <0.03 0.01-0.07 Lab Interpretation (test code = 77052-1) [facility]normal [facility]2021-05-20 17:33:00* Test Item Value Reference Range Interpretation Comme nts POCT GLU (test code = 8334113165) 80 mg/dL 70-110 Lab Interpretation (test cod e = 19532-1) Normal [facility] [id number] 12:36:17* Test Item Value Reference Range Interpretation Comments TROPONIN I (test code = 0809877250) 0.002 ng/mL See_Comment [Automated message] The system [...] of biotin. Lab Interpretation (test code = 77747-5) Normal [facility] Metabolic Panel (NA, K, CL, CO2, GLUCOSE, BUN, CREATININE, CA)2021-05-20 12:31:20* Test Item Value Reference Range Interpretation Comme nts NA (test code = 9223407770) 138 mmol/L 135-145 K (test code = 0578304763) 4.2 mmol/L 3.5-5.0 CL (test code = 9259718881) 106 mmol/L 98-108 CO2 TOTAL (test code = 1924290925) 25 mmol/L 23-31 AGAP (test code = 7935271429) 2-16 BUN (test code = 4745917094) 12 mg/dL 7-23 GLUCOSE (test code = 4793265584) 146 mg/dL 70-110 H CREATININE (test code = 5838122357) 0.62 mg/dL 0.50-1.04 CALCIUM (test code = 1067966787) 10.0 mg/dL 8.6-10.6 eGFR (test code = 8110865595) mL/min/1.73m2 MADISYN (test code = MADISYN) Association [...] imaging tests). Lab Interpretation (test code = 55897-9) Abnormal [facility] with [id number] 11:49:32* Test Item Value Reference Range Interpretation Comme nts WBC (test code = 6690-2) See_Comment [Automated [employer]] The system which generated this result transmitted reference range: 4.30 - 11.10 10*3/?L. The reference range was not used to interpret this result as normal/abnormal. RBC (test code = 789-8) See_Comment L [Automated [employer]] The system which generated this result transmitted [...] 34.6 g/dL 31.6-35.1 RDW-SD (test code = 56443-6) 40.3 fL 39.0-49.9 RDW-CV (test code = 788-0) 11.9 % 12.0-15.5 L PLT (test code = 777-3) See_Comment [Automated [employer]] The system which generated this result transmitted reference range: 166 - 358 10*3/?L. The reference range was not used to interpret this result as normal/abnormal. MPV (test code = 96895-1) 11.3 fL 9.5-12.9 NRBC/100 WBC (test code = 0619968032) See_Comment [Automated me ssage] The system which generated this result transmitted reference range: 0.0 - 10.0 /100 WBCs. The reference range was not used to interpret this result as normal/abnormal. NRBC x10^3 (test code = 3723994369) <0.01 See_Comment [Automated messa ge] The system which generated this result transmitted reference range: 10*3/?L. The reference range was not used to interpret this result as normal/abnormal. GRAN MAT (NEUT) % (test code = 770-8) 59.9 % IMM GRAN % (test code = 4797544935) 0.50 % LYMPH % (test code = 736-9) 30.0 % MONO % (test code = 5905-5) 6.4 % EOS % (test code = 713-8) 2.9 % BASO % (test code = 706-2) 0.3 % GRAN MAT x10^3(ANC) (test code = 7158350002) 3.72 10*3/uL 1.88-7.09 IMM GRAN x10^3 (test code = 6085538127) 0.03 10*3/uL 0.00-0.06 LYMPH x10^3 (test code = 731-0) 1.86 10*3/uL 1.32-3.29 MONO x10^3 (test code = 742-7) 0.40 10*3/uL 0.33-0.92 EOS x10^3 (test code = 711-2) 0.18 10*3/uL 0.03-0.39 BASO x10^3 (test code = 704-7) <0.03 0.01-0.07 Lab Interpretation (test code = 71740-3) Abnormal [facility] [id number] 02:24:28* Test Item Value Reference Range Interpretation Comments TROPONIN I (test code = 9854788926) 0.003 ng/mL See_Comment [Automated message] The system which generated this result transmitted reference range: <=0.034. The reference range was not used to interpret this result as normal/abnormal. MADISYN (test code = MDAISYN) Reference (Normal) Range (defined by the 99th [...] of biotin. Lab Interpretation (test code = 37978-3) Normal [facility]2021-11-14 00:25:00* Test Item Value Reference Range Interpretation Comme nts MAGNESIUM (test code = 0143477879) 1.9 mg/dL 1.7-2.4 Lab Interpretation (test cod e = 08862-3) Normal [facility] [id number] 00:20:03* Test Item Value Reference Range Interpretation Comments TROPONIN I (test code = 9301353003) 0.002 ng/mL See_Comment [Automated message] The system [...] of biotin. Lab Interpretation (test code = 37106-3) Normal [facility] METABOLIC PANEL (45761)2021-05-20 00:09:00* Test Item Value Reference Range Interpretation Comme nts NA (test code = 7998149052) 139 mmol/L 135-145 K (test code = 7107960507) 3.9 mmol/L 3.5-5.0 CL (test code = 0576468551) 101 mmol/L 98-108 CO2 TOTAL (test code = 1536285368) 28 mmol/L 23-31 AGAP (test code = 3057237032) 2-16 BUN (test code = 2603881740) 13 mg/dL 7-23 GLUCOSE (test code = 7250386619) 143 mg/dL 70-110 H CREATININE (test code = 4929697666) 0.68 mg/dL 0.50-1.04 TOTAL BILI (test code = 4970757495) 0.4 mg/dL 0.1-1.1 CALCIUM (test code = 0228177441) 10.4 mg/dL 8.6-10.6 T PROTEIN (test code = 0549968398) 8.0 g/dL 6.3-8.2 ALBUMIN (test code = 5383953114) 5.0 g/dL 3.5-5.0 ALK PHOS (test code = 2187519366) 93 U/L 34-122 ALTv (test code = 1742-6) 21 U/L 5-35 AST(SGOT) (test code = 7552571063) 31 U/L 13-40 eGFR (test code = 9985897369) mL/min/1.73m2 MADISYN (test code = MADISYN) Association [...] imaging tests). Lab Interpretation (test code = 29937-2) Abnormal [facility]2021-[facility]-14 00:08:20* Test Item Value Reference Range Interpretation Comme [facility] LIPASE (test code = 3078438065) 66 U/L 0-220 Lab Interpretation (test cod e = 25361-3) Normal [facility]2021-11-14 00:06:19* Test Item Value Reference Range Interpretation Comme [facility] APTT Patient (test code = 3173-2) See_Comment [Automated message] The system which generated this result transmitted reference range: 23 - 38 Seconds. The reference range was not used to interpret this result as normal/abnormal. MADISYN (test code = MADISYN) The [facility] patient population mean normal value for aPTT is 30 seconds. Lab Interpretation (test code = 41420-1) Normal [facility]neyPROTHROMBIN TIME / [id number] 00:04:19* Test Item Value Reference Range Interpretation Comme nts PROTIME PATIENT (test code = 5964-2) See_Comment [Automated [employer]] The system which generated this result transmitted reference range: 12.0 - 14.7 Seconds. The reference range was not used to interpret this result as normal/abnormal. INR (test code = 6301-6) Normal INR <1.1; Warfarin Therapeutic range 2.0 to 3.0 or 2.5 to 3.5, depending upon the indications. Lab Interpretation (test code = 61446-0) Normal [facility] WITH [id number] 23:55:39* Test Item Value Reference Range Interpretation Comme nts WBC (test code = 6690-2) See_Comment [Automated [employer]] The system which generated this result transmitted reference range: 4.30 - 11.10 10*3/?L. The reference range was not used to interpret this result as normal/abnormal. RBC (test code = 789-8) See_Comment [Automated [employer] ge] The system which generated this result [...] 34.6 g/dL 31.6-35.1 RDW-SD (test code = 52171-3) 40.4 fL 39.0-49.9 RDW-CV (test code = 788-0) 11.9 % 12.0-15.5 L PLT (test code = 777-3) See_Comment [Automated [employer] ge] The system which generated this result transmitted reference range: 166 - 358 10*3/?L. The reference range was not used to interpret this result as normal/abnormal. MPV (test code = 11478-3) 11.0 fL 9.5-12.9 NRBC/100 WBC (test code = 5044337490) See_Comment [Automated [employer] ssage] The system which generated this result transmitted reference range: 0.0 - 10.0 /100 WBCs. The reference range was not used to interpret this result as normal/abnormal. NRBC x10^3 (test code = 7252850437) <0.01 See_Comment [Automated [employer] ge] The system which generated this result transmitted reference range: 10*3/?L. The reference range was not used to interpret this result as normal/abnormal. GRAN MAT (NEUT) % (test code = 770-8) 53.4 % IMM GRAN % (test code = 4605032552) 0.60 % LYMPH % (test code = 736-9) 36.2 % MONO % (test code = 5905-5) 6.4 % EOS % (test code = 713-8) 3.3 % BASO % (test code = 706-2) 0.1 % GRAN MAT x10^3(ANC) (test code = 1786160846) 3.58 10*3/uL 1.88-7.09 IMM GRAN x10^3 (test code = 6802839094) 0.04 10*3/uL 0.00-0.06 LYMPH x10^3 (test code = 731-0) 2.43 10*3/uL 1.32-3.29 MONO x10^3 (test code = 742-7) 0.43 10*3/uL 0.33-0.92 EOS x10^3 (test code = 711-2) 0.22 10*3/uL 0.03-0.39 BASO x10^3 (test code = 704-7) <0.03 0.01-0.07 Lab Interpretation (test code = 39678-5) Abnormal [facility]ney[facility]inalysis2021-03-11 03:27:11* Test Item Value Reference Range Interpretation Comme nts APPEARANCE (test code = 1882774980) Clear Clear COLOR (test code = 2222613276) Straw Yellow A PH (test code = 1309173351) 4.8-8.0 SP GRAVITY (test code = 6600961845) 1.003-1.030 GLU U QUAL (test code = 9734527933) 500 mg/dL Normal A BLOOD (test code = 9957457019) Negative Negative KETONES (test code = 1301319386) Negative Negative PROTEIN (test code = 2887-8) Negative Negative UROBILIN (test code = 3387871145) Normal Normal BILIRUBIN (test code = 5018810082) Negative Negative NITRITE (test code = 2553906805) Negative Negative LEUK KEVEN (test code = 0766739792) 25/uL Negative A RBC/HPF (test code = 2873996559) See_Comment [Automated [employer] ge] The system which generated this result transmitted reference range: 0 - 3 HPF. The reference range was not used to interpret this result as normal/abnormal. WBC/HPF (test code = 4195429001) See_Comment [Automated [employer] ge] The system which generated this result transmitted reference range: 0 - 5 HPF. The reference range was not used to interpret this result as normal/abnormal. BACTERIA (test code = 3504087532) Negative Negative MUCOUS (test code = 7163719921) Slight Negative LPF A SQ EPITH (test code = 9903364145) HPF Lab Interpretation (test code = 76739-6) Abnormal [facility]neyTroponin [id number] 03:00:28* Test Item Value Reference Range Interpretation Comme nts TROPONIN I (test code = 6360454229) <0.012 See_Comment [Automated message] The system which [...] biotin. ? Lab Interpretation (test code = 49988-0) Normal [facility]neyN-TERMINAL [id number] 02:57:10* Test Item Value Reference Range Interpretation Comme nts NT-proBNP (test code = 6960651432) 25 pg/mL See_Comment [Automated message] The system which generated this result transmitted reference range: <=125. The reference range was not used to interpret this result as normal/abnormal. MADISYN (test code = MADISYN) Biotin has been reported to cause a negative bias, interpret results relative to patient's use of biotin. Lab Interpretation (test code = 88333-7) Normal [facility] Metabolic Panel (NA, K, CL, CO2, GLUCOSE, BUN, CREATININE, CA)2020-09-14 02:48:49* Test Item Value Reference Range Interpretation Comme nts NA (test code = 3206688108) 135 mmol/L 135-145 K (test code = 6632407539) 3.6 mmol/L 3.5-5.0 CL (test code = 3220666727) 101 mmol/L 98-108 CO2 TOTAL (test code = 1018208943) 23 mmol/L 23-31 AGAP (test code = 5412676953) 2-16 BUN (test code = 5337859811) 10 mg/dL 7-23 GLUCOSE (test code = 5401975086) 296 mg/dL 70-110 H CREATININE (test code = 6179643800) 0.62 mg/dL 0.50-1.04 CALCIUM (test code = 6893399300) 9.7 mg/dL 8.6-10.6 eGFR Calculation (Non-) (test code = 1591649344) mL/min/1.73m2 eGFR Calculation () (test code = 5868146233) mL/min/1.73m2 MADISYN (test code = MADISYN) Association [...] imaging tests). Lab Interpretation (test code = 18966-9) [facility] (ALB, T.PRO, BILI T, BU/BC, ALT, AST, ALK PHOS)2020-09-14 02:48:48* Test Item Value Reference Range Interpretation Comme nts TOTAL BILI (test code = 8203518449) 0.4 mg/dL 0.1-1.1 BILI UNCON (test code = 6255820218) 0.4 mg/dL 0.1-1.1 BILI CONJ (test code = 0838602408) 0.0 mg/dL 0.0-0.3 T PROTEIN (test code = 7149563280) 7.7 g/dL 6.3-8.2 ALBUMIN (test code = 9047302145) 5.0 g/dL 3.5-5.0 ALK PHOS (test code = 1152872401) 78 U/L 34-122 ALTv (test code = 1742-6) 19 U/L 5-35 AST(SGOT) (test code = 5111011708) 25 U/L 13-40 Lab Interpretation (test cod e = 38154-8) [facility] [id number] 02:48:48* Test Item Value Reference Range Interpretation Comme nts LIPASE (test code = 6632357479) 38 U/L 0-220 Lab Interpretation (test cod e = 09315-0) [facility] (ID NOW RAPID TESTING)2020-09-14 02:36:29* Test Item Value Reference Range Interpretation Comme nts SARS-CoV-2 Rapid ID NOW (test code = 69457-7) Positive Not Detected A MADISYN (test code = MADISYN) ID NOW COVID-19 As say is an isothermal nucleic acid amplification test intended for the qualitative detection of nucleic acid from SARS-CoV-2 viral RNA in nasopharyngeal (FLAT MACHINE CUTTER) specimens. It is used under Emergency Use [...] clinically indicated. Lab Interpretation (test code = 44867-5) Abnormal [facility] with [id number] 02:30:06* Test Item Value Reference Range Interpretation Comme nts WBC (test code = 6690-2) See_Comment [Automated [employer]] The system which generated this result transmitted reference range: 4.30 - 11.10 10*3/?L. The reference range was not used to interpret this result as normal/abnormal. RBC (test code = 789-8) See_Comment [Automated [employer]] The system which generated this result transmitted [...] 34.5 g/dL 31.6-35.1 RDW-SD (test code = 00969-0) 41.8 fL 39.0-49.9 RDW-CV (test code = 788-0) 12.8 % 12.0-15.5 PLT (test code = 777-3) See_Comment [Automated [employer]] The system which generated this result transmitted reference range: 166 - 358 10*3/?L. The reference range was not used to interpret this result as normal/abnormal. MPV (test code = 81487-0) 11.2 fL 9.5-12.9 NRBC/100 WBC (test code = 6598143965) See_Comment [Automated me [employer]age] The system which generated this result transmitted reference range: 0.0 - 10.0 /100 WBCs. The reference range was not used to interpret this result as normal/abnormal. NRBC x10^3 (test code = 0042251632) <0.01 See_Comment [Automated me ssage] The system which generated this result transmitted reference range: 10*3/?L. The reference range was not used to interpret this result as normal/abnormal. GRAN MAT (NEUT) % (test code = 770-8) 54.0 % IMM GRAN % (test code = 6712438246) 0.70 % LYMPH % (test code = 736-9) 36.2 % MONO % (test code = 5905-5) 6.0 % EOS % (test code = 713-8) 2.8 % BASO % (test code = 706-2) 0.3 % GRAN MAT x10^3(ANC) (test code = 3677471821) 3.13 10*3/uL 1.88-7.09 IMM GRAN x10^3 (test code = 2254668167) 0.04 10*3/uL 0.00-0.06 LYMPH x10^3 (test code = 731-0) 2.10 10*3/uL 1.32-3.29 MONO x10^3 (test code = 742-7) 0.35 10*3/uL 0.33-0.92 EOS x10^3 (test code = 711-2) 0.16 10*3/uL 0.03-0.39 BASO x10^3 (test code = 704-7) <0.03 0.01-0.07 [facility] WITH [id number] 01:35:00* Test Item Value Reference Range Interpretation Comme nts WBC (test code = 6690-2) See_Comment [Automated messa ge] The system which generated this result transmitted reference range: 4.30 - 11.10 10*3/?L. The reference range was not used to interpret this result as normal/abnormal. RBC (test code = 789-8) See_Comment [Automated [employer]] The system which generated this result transmitted [...] 34.7 g/dL 31.6-35.1 RDW-SD (test code = 85493-7) 40.8 fL 39-49.9 RDW-CV (test code = 788-0) 12.5 % 12-15.5 PLT (test code = 777-3) See_Comment [Automated [employer]] The system which generated this result transmitted reference range: 166 - 358 10*3/?L. The reference range was not used to interpret this result as normal/abnormal. MPV (test code = 93574-3) 11.0 fL 9.5-12.9 IPF % (test code = 1139653826) 5.7 % 1.3-7.7 Platelet count measured by fluorescence method. NRBC/100 WBC (test code = 8955278160) See_Comment [Automated [employer] ssage] The system which generated this result transmitted reference range: 0.0 - 10.0 /100 WBCs. The reference range was not used to interpret this result as normal/abnormal. NRBC x10^3 (test code = 7813751332) <0.01 See_Comment [Automated [employer] ge] The system which generated this result transmitted reference range: 10*3/?L. The reference range was not used to interpret this result as normal/abnormal. GRAN MAT (NEUT) % (test code = 770-8) 60.2 % IMM GRAN % (test code = 7792578625) 1.60 % LYMPH % (test code = 736-9) 29.4 % MONO % (test code = 5905-5) 6.2 % EOS % (test code = 713-8) 2.3 % BASO % (test code = 706-2) 0.3 % GRAN MAT x10^3(ANC) (test code = 1148501092) 5.31 10*3/uL 1.88-7.09 IMM GRAN x10^3 (test code = 8092876446) 0.14 10*3/uL 0-0.06 H LYMPH x10^3 (test code = 731-0) 2.59 10*3/uL 1.32-3.29 MONO x10^3 (test code = 742-7) 0.55 10*3/uL 0.33-0.92 EOS x10^3 (test code = 711-2) 0.20 10*3/uL 0.03-0.39 BASO x10^3 (test code = 704-7) 0.03 10*3/uL 0.01-0.07 Lab Interpretation (test code = 78594-5) Abnormal [facility] ONLY - INFLUENZA A & B DIRECT [id number] 01:26:00* Test Item Value Reference Range Interpretation Comme nts Influenza A (test code = 03931-8) Negative Negative Influenza B (test code = 14448-4) Negative Negative Lab Interpretation (test cod e = 68474-7) Normal [facility] Metabolic Panel (NA, K, CL, CO2, GLUCOSE, BUN, CREATININE, CA)2019-07-28 01:21:00* Test Item Value Reference Range Interpretation Comme nts NA (test code = 2205715031) 137 mmol/L 135-145 K (test code = 6974765528) 3.8 mmol/L 3.5-5 CL (test code = 0449994632) 100 mmol/L 98-108 CO2 TOTAL (test code = 9966644193) 24 mmol/L 23-31 AGAP (test code = 3844332811) 2-16 BUN (test code = 8919162219) 13 mg/dL 7-23 GLUCOSE (test code = 8876835133) 245 mg/dL 70-110 H CREATININE (test code = 6689999924) 0.49 mg/dL 0.5-1.04 L CALCIUM (test code = 0252938638) 9.8 mg/dL 8.6-10.6 eGFR Calculation (Non-) (test code = 6406576513) mL/min/1.73m2 eGFR Calculation () (test code = 9303309703) mL/min/1.73m2 MADISYN (test code = MADISYN) Association [...] imaging tests). Lab Interpretation (test code = 41568-0) Abnormal [facility]ney[facility] Function Panel (ALB, T.PRO, BILI T, BU/BC, ALT, AST, ALK PHOS)2019-07-28 01:21:00* Test Item Value Reference Range Interpretation Comme nts TOTAL BILI (test code = 9127901925) 0.3 mg/dL 0.1-1.1 BILI UNCON (test code = 5081597545) 0.1 mg/dL 0.1-1.1 BILI CONJ (test code = 7892834729) 0.0 mg/dL 0-0.3 T PROTEIN (test code = 2214556535) 8.2 g/dL 6.3-8.2 ALBUMIN (test code = 6454474877) 5.0 g/dL 3.5-5 ALK PHOS (test code = 1761774333) 121 U/L 34-122 ALTv (test code = 1742-6) 33 U/L 5-35 AST(SGOT) (test code = 8565414224) 30 U/L 13-40 Lab Interpretation (test cod e = 75989-7) Normal [facility]neyRAPID STREP SCREEN FOR GROUP [id number] 01:19:00* Test Item Value Reference Range Interpretation Comme nts Streptococcus pyogenes (grou p A) antigen (test code = 81421-9) Negative Negative Lab Interpretation (test cod e = 59188-9) Normal [facility] McKinneyXR CHEST 2 [id number] 00:53:20Impression: No acute cardiopulmonary changes. Small sized [...] report.[facility]ney[facility] Metabolic Panel (NA, K, CL, CO2, GLUCOSE, BUN, CREATININE, CA)2019-03-11 20:52:00* Test Item Value Reference Range Interpretation Comme nts NA (test code = 5261415795) 141 mmol/L 135-145 K (test code = 3661340767) 3.6 mmol/L 3.5-5 CL (test code = 4783053284) 104 mmol/L 98-108 CO2 TOTAL (test code = 5267374667) 24 mmol/L 23-31 AGAP (test code = 5409571043) 2-16 BUN (test code = 3885290399) 19 mg/dL 7-23 GLUCOSE (test code = 5833354045) 161 mg/dL 70-110 H CREATININE (test code = 4965002512) 0.51 mg/dL 0.5-1.04 CALCIUM (test code = 0654310525) 9.4 mg/dL 8.6-10.6 eGFR Calculation (Non-) (test code = 8293738534) mL/min/1.73m2 eGFR Calculation () (test code = 8304866367) mL/min/1.73m2 MADISYN (test code = MADISYN) Association [...] imaging tests). Lab Interpretation (test code = 40389-7) Abnormal [facility] (ALB, T.PRO, BILI T, BU/BC, ALT, AST, ALK PHOS)2019-03-11 20:52:00* Test Item Value Reference Range Interpretation Comme nts TOTAL BILI (test code = 5120559474) 0.6 mg/dL 0.1-1.1 BILI UNCON (test code = 8545878190) 0.5 mg/dL 0.1-1.1 BILI CONJ (test code = 8380269592) 0.0 mg/dL 0-0.3 T PROTEIN (test code = 7113718427) 7.7 g/dL 6.3-8.2 ALBUMIN (test code = 0751687863) 4.9 g/dL 3.5-5 ALK PHOS (test code = 1101935551) 61 U/L 34-122 ALT(SGPT) (test code = 4434091264) 26 U/L 9-51 AST(SGOT) (test code = 8322123776) 28 U/L 13-40 Lab Interpretation (test cod e = 29713-3) Normal [facility]neyLip[facility] [id number] 20:52:00* Test Item Value Reference Range Interpretation Comme [facility] LIPASE (test code = 7955974933) 22 U/L 0-220 Lab Interpretation (test cod e = 26605-2) Normal [facility]neyaPTT2019-09-05 20:40:00* Test Item Value Reference Range Interpretation Comme [facility] APTT Patient (test code = 3173-2) See_Comment L [Automated message] The system which generated this result transmitted reference range: 23 - 38 Seconds. The reference range was not used to interpret this result as normal/abnormal. MADISYN (test code = MADISYN) The [facility] patient population mean normal value for aPTT is 30 seconds. Lab Interpretation (test code = 44593-1) Abnormal [facility] McKinneyProthrombin Time (PT) / [id number] 20:38:00 * Test Item Value Reference Range Interpretation Comme [facility] PROTIME PATIENT (test code = 5964-2) See_Comment [Automated messa ge] The system which generated this result transmitted reference range: 12.0 - 14.7 Seconds. The reference range was not used to interpret this result as normal/abnormal. INR (test code = 6301-6) Normal INR <1.1; Warfarin Therapeutic range 2.0 to 3.0 or 2.5 to 3.5, depending upon the indications. Lab Interpretation (test code = 56277-1) Normal [facility] WITH [id number] 20:33:00* Test Item Value Reference Range Interpretation [...] 34.0 g/dL 31.6-35.1 RDW-SD (test code = 82279-9) 44.3 fL 39-49.9 RDW-CV (test code = 788-0) 12.9 % 12-15.5 PLT (test code = 777-3) See_Comment [Automated messa ge] The system which generated this result transmitted reference range: 166 - 358 10*3/?L. The reference range was not used to interpret this result as normal/abnormal. MPV (test code = 78292-5) 10.9 fL 9.5-12.9 NRBC/100 WBC (test code = 7415888902) See_Comment [Automated [employer] ssage] The system which generated this result transmitted reference range: 0.0 - 10.0 /100 WBCs. The reference range was not used to interpret this result as normal/abnormal. NRBC x10^3 (test code = 9580237779) <0.01 See_Comment [Automated messa ge] The system which generated this result transmitted reference range: 10*3/?L. The reference range was not used to interpret this result as normal/abnormal. GRAN MAT (NEUT) % (test code = 770-8) 86.3 % IMM GRAN % (test code = 5932214693) 0.50 % LYMPH % (test code = 736-9) 8.8 % MONO % (test code = 5905-5) 4.0 % EOS % (test code = 713-8) 0.2 % BASO % (test code = 706-2) 0.2 % GRAN MAT x10^3(ANC) (test code = 2788292517) 8.24 10*3/uL 1.88-7.09 H IMM GRAN x10^3 (test code = 8965983580) 0.05 10*3/uL 0-0.06 LYMPH x10^3 (test code = 731-0) 0.84 10*3/uL 1.32-3.29 L MONO x10^3 (test code = 742-7) 0.38 10*3/uL 0.33-0.92 EOS x10^3 (test code = 711-2) <0.03 0.03-0.39 L BASO x10^3 (test code = 704-7) <0.03 0.01-0.07 Lab Interpretation (test code = 98610-9) Abnormal [facility]"
[2024-07-02 19:59] LABS: Absolute Eosinophils 0.3 K/uL (0-0.5); Absolute Lymphocytes (CBC) 2.4 K/uL (0.7-4.9); Absolute Monocytes 0.4 K/uL (0.1-1.3); Absolute Neutrophil 3.4 K/uL (1.8-8.0); Basophils % 0.2 % (0-1.3); Eosinophils % 4.9 % (0-4.4); Hemoglobin 12.1 g/dL (12.0-15.0); Lymphocytes % 36.1 % (15.3-44.8); MCH 32.5 pg (27.0-35.0); MCHC 34.7 g/dL (32.0-36.0); MCV 93.8 fL (80-100); MPV 8.9 fL (7.6-11.3); Monocytes % 6.8 % (3.3-12.3); Nucleated Red Blood Cells % 0.1 % (0-0); Platelets 247 thou/uL (152-406); RBC Red Blood Cell Count 3.73 M/uL (3.86-4.86)
[2024-07-02 20:05] LABS: PT Prothrombin Time 10.3 SECONDS (9.4-12.5); PTT, Activated Partial Thromb 32.1 SECONDS (24.3-36.9); Protime INR 0.92
[2024-07-02 20:19] LABS: ALT/SGPT 30 U/L (13-56); AST/SGOT 30 U/L (15-37); Albumin 3.9 g/dL (3.4-5.0); Albumin/Globulin Ratio 1.2 (1.1-1.8); Alkaline Phosphatase 77 U/L (45-117); Anion Gap 8.7 mEq/L (5.0-15.0); BUN Blood Urea Nitrogen 10 mg/dL (7-18); Bicarbonate 27 mEq/L (21-32); Bilirubin Total 0.2 mg/dL (0.2-1.0); Globulin 3.3 g/dL (2.3-3.5); Glomerular Filtration Rate 96 ml/min (=/>90); Glucose Level 102 mg/dL (74-106); Magnesium 2.1 mg/dL (1.6-2.4); NT PRO-BNP 114 pg/mL (<125); Potassium 3.7 mEq/L (3.5-5.1); Protein, Total 7.2 g/dL (6.4-8.2); Sodium Level 139 mEq/L (136-145); Troponin High Sensitivity 3.4 pg/mL (<58.9)
[2024-07-02 20:20] LABS: Bilirubin Direct < 0.2 mg/dL (0-0.2)
--- NOTE | 2024-07-02 20:48 | RAD REPORT ---
EXAMINATION: ONE VIEW CHEST XR CLINICAL INDICATION: Female, 64 years old.,rectal bleeding TECHNIQUE: Frontal chest projection is submitted. Examination is limited by patient positioning and t echnique. COMPARISON: 04/08/2024 FINDINGS: The lungs are diffusely emphysematous but grossly clear. No pneumothorax or sizable effusion. The he art is normal in size. Mediastinal contours are unremarkable. IMPRESSION: No acute intrathoracic abnormalities.
--- NOTE | 2024-07-02 21:30 | RAD REPORT ---
EXAMINATION: CT Abdomen Pelvis W Contrast CLINICAL INDICATION: Female, 64 years old. rectal bleeding;Abd pain TECHNIQUE: CT abdomen and pelvis was performed, after the administration of IV contrast, as per [facility] protocol. Axial, sagittal and coronal reconstructions were obtained. One or more of the following dose reduction techniques were used: Automated exposure control, adjustment of the mA and k V according to patient size, and iterative reconstruction. Unless otherwise specified, incidental findings do not require dedicated imaging follow-up. COMPARISON: 07/12/2023 FINDINGS: LOWER CHEST: The visualized lung bases are clear. LIVER: Normal in size and contour. No focal lesion. BILIARY SYSTEM: No suspicious abnormalities. SPLEEN: Normal size. No focal lesion. PANCREAS: No mass, ductal dilation, or francia-pancreatic fluid. ADRENALS: Normal; no mass. KIDNEYS: Normal size and contour. Bilateral small renal calculi largest lower right pole measuring 4 mm. No hydronephrosis. URINARY BLADDER: Unremarkable. GASTROINTESTINAL TRACT: No evidence of free air, significant intra-abdominal free fluid, bowel obstru ction or abscess. APPENDIX: Normal appendix. LYMPH NODES: No lymphadenopathy. MUSCULOSKELETAL: No acute or suspicious osseous abnormality. Left L5 pars interarticularis defect. ADDITIONAL FINDINGS: None. IMPRESSION: No acute or concerning abnormalities seen in the abdomen or pelvis. Bilateral small renal calculi largest lower right pole measuring 4 mm.
--- NOTE | 2024-07-02 21:41 | ER ---
Nurse's Notes [facility] Name: Dolores Pérez Age: 64 yrs Sex: Female : 1960 Arrival Date: 07/02/2024 Time: 18:56 Bed 23 Private MD: Diagnosis: GI Bleed/ Gastrointestinal hemorrhage, unspecified Presentation: 07/02 19:07 Chief complaint: Patient states: RECTAL BLEEDING STARTED TODAY. STATES WAS TRYING TO db HAVE A BOWEL MOVEMENT. REPORTS RECENT COLONOSCOPY ON 06/22. Coronavirus screen: Client denies travel out of the [place] in the last 14 days. At this time, the client does not indicate any symptoms associated with coronavirus-19. Ebola Screen: Patient negative for fever greater than or equal to 101.5 degrees Fahrenheit, and additional compatible Ebola Virus Disease symptoms Patient denies exposure to infectious person. Patient denies travel to an Ebola-affected area in the 21 days before illness onset. No symptoms or risks identified at this time. Initial Sepsis Screen: Does the patient meet any 2 criteria? No. Patient's initial sepsis screen is negative. Does the patient have a suspected source of infection? No. Patient's initial sepsis screen is negative. Risk Assessment: Do you want to hurt yourself or someone else? Patient reports no desire to harm self or others. Onset of symptoms was July 02, 2024. 19:07 Method Of Arrival: Ambulatory db 19:07 Acuity: AARON 3 db Triage Assessment: 19:08 General: Appears in no apparent distress. comfortable, Behavior is calm, cooperative. db Pain: Complains of pain in abdomen Pain currently is 2 out of 10 on a pain scale. Quality of pain is described as crampy. Neuro: Level of Consciousness is awake, alert, obeys commands, Oriented to person, place, time, situation. GI: Reports rectal bleeding. Historical: - Allergies: 19:08 Aspirin; db 19:08 grapes; db 19:08 NSAIDS; db 19:08 ORANGES; db 19:08 Prednisone; db 19:08 peanuts; db 19:08 sesame seed; db 19:08 Sulfa (Sulfonamide Antibiotics); db - PMHx: 19:08 Anxiety; Asthma; COPD; diabetes mellitus; depressive disorder; High Cholesterol; db Hypertension; Hypothyroidism; Transient cerebral ischemia; - PSHx: 19:08 COLON TUMOR REMOVAL (2022); db - Immunization history:: Adult Immunizations unknown. - Infectious Disease History:: Denies. - Social history:: Smoking status: Patient denies any tobacco usage or history of. Screenin:57 [facility] ED Fall Risk Assessment (Adult) History of falling in the last 3 months, jb4 including since admission No falls in past 3 months (0 pts) Confusion or Disorientation No (0 pts) Intoxicated or Sedated No (0 pts) Impaired Gait No (0 pts) Mobility Assist Device Used Yes (1 pt) Altered Elimination No (0 pt) Score/Fall Risk Level 0 - 2 = Low Risk Oriented to surroundings, Maintained a safe environment. Abuse screen: Denies threats or abuse. Nutritional screening: No deficits noted. Tuberculosis screening: No symptoms or risk factors identified. Assessment: 19:57 General: Appears in no apparent distress. comfortable, Behavior is calm, cooperative, jb4 appropriate for age. Pain: Complains of pain in right lower quadrant and left lower quadrant Pain does not radiate. Pain currently is 2 out of 10 on a pain scale. Quality of pain is described as aching. Neuro: Level of Consciousness is awake, alert, obeys commands, Oriented to person, place, time, situation. Cardiovascular: Patient's skin is warm and dry. Respiratory: Airway is patent Respiratory effort is even, unlabored, Respiratory pattern is regular, symmetrical. GI: Reports lower abdominal pain, constipation, rectal bleeding, Pt reports rectal bleeding after being constipated. Reports that the bleeding has slowed since initially starting. Derm: Skin is intact, Skin is pink, warm \T\ dry. Musculoskeletal: Circulation, motion, and sensation intact. Range of motion: intact in all extremities. 21:00 Reassessment: Patient appears in no apparent distress at this time. No changes from jb4 previously documented assessment. Patient and/or family updated on plan of care and expected duration. Pain level reassessed. 22:50 Reassessment: Patient appears in no apparent distress at this time. No changes from jb4 previously documented assessment. Patient and/or family updated on plan of care and expected duration. Pain level reassessed. Vital Signs: 19:07 BP 153 / 82; Pulse 72; Resp 16; Temp 97.4; Pulse Ox 97% ; Weight 51.71 kg; Height 5 ft. db 6 in. ; 19:57 BP 144 / 78; Pulse 66; Resp 16; Pulse Ox 100% ; jb4 21:00 BP 157 / 65; Pulse 61; Resp 16; Pulse Ox 100% on R/A; jb4 19:07 Body Mass Index 18.40 (51.71 kg, 167.64 cm) db ED Course: 18:59 Patient arrived in ED. mr 19:08 Triage completed. db 19:08 Arm band placed on Patient placed in an exam room. db 19:16 Feng Pope PA is PHCP. cp 19:16 Feng Tian MD is Attending Physician. cp 19:43 Inserted saline lock: 20 gauge in right antecubital area, using aseptic technique. af3 Blood collected. Flushed with 10 mL NS. 19:54 EKG done, by medical technical writer. jb4 19:57 Patient has correct armband on for positive identification. Bed in low position. Call jb4 light in reach. Side rails up X 1. Provided Education on: plan of care. 19:57 Client placed on continuous cardiac and pulse oximetry monitoring. NIBP monitoring jb4 applied. clinical research monitor on. Pulse ox on. 19:57 No provider procedures requiring assistance completed. jb4 20:07 XRAY Chest (1 view) In Process Unspecified. EDMS 20:31 CT Abd/Pelvis - IV Contrast Only In Process Unspecified. EDMS 21:47 initiated transfer [facility]. km 22:12 [place] \\ [facility] has capability... pt refused [facility], requested to go home. [facility] Feng Page notified. . 22:24 Gertrude Dior MD is Referral Physician. cp 22:50 Nishant Gibbs, RN is Primary Nurse. jb4 22:51 IV discontinued, intact, bleeding controlled, No redness/swelling at site. Pressure jb4 dressing applied. Administered Medications: No medications were administered Medication: 19:57 VIS not applicable for this client. jb4 Outcome: 21:40 ER care complete, transfer ordered by . cp 22:24 Discharge ordered by . cp 22:51 Discharged to home ambulatory, jb4 22:51 Condition: stable 22:51 Discharge instructions given to patient, Instructed on discharge instructions, follow up and referral plans. Demonstrated understanding of instructions, follow-up care, 22:51 Patient left the ED. jb4 Signatures: Dispatcher [facility], Cherise, Reg Reg mr Toshia, Feng, Nishant Yu cp, RN RN jb4 Callie Berg RN RN db Yanci Logan Ashley [facility]
--- NOTE | 2024-07-02 21:41 | EDPHYS ---
Physician Documentation [facility] Name: Dolores Pérez Age: 64 yrs Sex: Female : 1960 Arrival Date: 07/02/2024 Time: 18:56 Bed 23 Private MD: ED Physician Feng Tian HPI: 07/02 19:45 This 64 yrs old Female presents to ER via Ambulatory with complaints of Rectal Bleeding.cp 19:45 The patient presents to the emergency department with bleeding from the rectum/anus. cp Onset: The symptoms/episode began/occurred today, after bowel movement. Context: the patient reports having colonoscopy performed by DR Dior with removal of polyps on 06-22-2024. 19:45 Associate signs and symptoms: Pertinent negatives: abdominal pain, diarrhea, fever, cp vomiting. Historical: - Allergies: 19:08 Aspirin; db 19:08 grapes; db 19:08 NSAIDS; db 19:08 ORANGES; db 19:08 Prednisone; db 19:08 peanuts; db 19:08 sesame seed; db 19:08 Sulfa (Sulfonamide Antibiotics); db - PMHx: 19:08 Anxiety; Asthma; COPD; diabetes mellitus; depressive disorder; High Cholesterol; db Hypertension; Hypothyroidism; Transient cerebral ischemia; - PSHx: 19:08 COLON TUMOR REMOVAL (2022); db - Immunization history:: Adult Immunizations unknown. - Infectious Disease History:: Denies. - Social history:: Smoking status: Patient denies any tobacco usage or history of. ROS: 19:50 Constitutional: Negative for body aches, chills, fever, poor PO intake, cp 19:50 Eyes: Negative for injury, pain, redness, and discharge, cp 19:50 ENT: Negative for drainage from ear(s), ear pain, sore throat, difficulty swallowing, difficulty handling secretions, 19:50 Cardiovascular: Negative for chest pain, edema, palpitations, 19:50 Respiratory: Negative for cough, shortness of breath, wheezing, 19:50 Abdomen/GI: Positive for rectal bleeding, Negative for abdominal pain, 19:50 : Negative for urinary symptoms, 19:50 Neuro: Negative for altered mental status, dizziness, headache, weakness, 19:50 All other systems are negative, Exam: 19:55 Constitutional: The patient appears in no acute distress, alert, awake, non-toxic, well cp developed, well nourished, 19:55 Head/Face: Normocephalic, atraumatic. cp 19:55 Eyes: Periorbital structures: appear normal, Conjunctiva: normal, no exudate, no injection, Sclera: no appreciated abnormality, Lids and lashes: appear normal, bilaterally, 19:55 ENT: External ear(s): are unremarkable, Nose: is normal, Mouth: Lips: moist, Oral mucosa: pink and intact, moist, Posterior pharynx: Airway: no evidence of obstruction, patent, 19:55 Chest/axilla: Inspection: normal, 19:55 Cardiovascular: Rate: normal, Rhythm: regular, Edema: is not appreciated, JVD: is not appreciated, 19:55 Respiratory: the patient does not display signs of respiratory distress, Respirations: normal, no use of accessory muscles, no retractions, labored breathing, is not present, Breath sounds: are clear throughout, no decreased breath sounds, no stridor, no wheezing, 19:55 Abdomen/GI: Inspection: abdomen appears normal, Bowel sounds: active, all quadrants, Palpation: soft, in all quadrants, mild abdominal tenderness, in all quadrants, Rectal exam: Stool: brown, no gross blood noted, hemorrhoid(s), external, without bleeding, without inflammation, without thrombosis, 19:55 Neuro: Orientation: to person, place \T\ time. Mentation: is normal, Motor: moves all fours, strength is normal, Sensation: is normal, 19:57 ECG was reviewed by the Attending Physician. Vital Signs: 19:07 BP 153 / 82; Pulse 72; Resp 16; Temp 97.4; Pulse Ox 97% ; Weight 51.71 kg; Height 5 ft. db 6 in. ; 19:57 BP 144 / 78; Pulse 66; Resp 16; Pulse Ox 100% ; jb4 21:00 BP 157 / 65; Pulse 61; Resp 16; Pulse Ox 100% on R/A; jb4 19:07 Body Mass Index 18.40 (51.71 kg, 167.64 cm) db MDM: 19:16 Medical Screening Exam initiated cp 22:23 Data reviewed: vital signs, nurses notes, lab test result(s), EKG, radiologic studies, cp CT scan, plain films, and as a result, I will discharge patient. 22:23 Differential diagnosis: hemorrhoids, anemia, diverticulitis. Care significantly cp affected by the following chronic conditions: Diabetes. Counseling: I had a detailed discussion with the patient and/or guardian regarding the historical points, exam findings, and any diagnostic results supporting the discharge/admit diagnosis, lab results, radiology results, to return to the emergency department if symptoms worsen or persist or if there are any questions or concerns that arise at home. Refusal of service: The patient/guardian displays adequate decision making capability and despite a detailed discussion of alternatives, benefits, risks, and consequences refuses: transfer for GI services. 07/02 19:42 Order name: Basic Metabolic Panel; Complete Time: 20:47 07/02 19:42 Order name: CBC with Diff; Complete Time: 20:47 07/02 20:48 Interpretation: Normal except: RBC 3.73; HCT 35.0; EOSINOPHIL % 4.9. 07/02 19:42 Order name: LFT's; Complete Time: 20:47 07/02 19:42 Order name: Magnesium; Complete Time: 20:47 07/02 19:42 Order name: NT PRO-BNP; Complete Time: 20:47 07/02 19:42 Order name: PT-INR; Complete Time: 20:47 07/02 19:42 Order name: Troponin HS; Complete Time: 20:47 07/02 19:42 Order name: Ptt, Activated; Complete Time: 20:47 07/02 19:42 Order name: XRAY Chest (1 view); Complete Time: 21:34 07/02 19:42 Order name: CT Abd/Pelvis - IV Contrast Only; Complete Time: 21:34 07/02 21:34 Interpretation: Report reviewed. 07/02 19:42 Order name: Cardiac monitoring; Complete Time: 19:54 07/02 19:42 Order name: EKG - Nurse/Tech; Complete Time: 19:54 07/02 19:42 Order name: IV Saline Lock; Complete Time: 19:43 07/02 19:42 Order name: Labs collected and sent; Complete Time: 19:43 07/02 19:42 Order name: O2 Per Protocol; Complete Time: 19:43 07/02 19:42 Order name: O2 Sat Monitoring; Complete Time: 19:43 cp EC:57 Rate is 61 beats/min. Rhythm is regular. [place] interval is normal. QRS interval is normal. cp QT interval is normal. T waves are Inverted in leads aVL, aVR. Interpreted by me. Reviewed by me. Administered Medications: No medications were administered Disposition Summary: 07/02/24 22:24 Discharge Ordered Notes: Location: Home cp Problem: new(07/02/24 22:24) cp Symptoms: have improved(07/02/24 22:24) cp Condition: Stable(07/02/24 22:24) cp Diagnosis - GI Bleed/ Gastrointestinal hemorrhage, unspecified(07/02/24 22:24) cp Followup: cp - With: Gertrude Dior MD - When: 2 - 3 days - Reason: Recheck today's complaints Discharge Instructions: - Discharge Summary Sheet cp - Gastrointestinal Bleeding cp Forms: - Medication Reconciliation Form cp - Antibiotic Education cp - Prescription Opioid Use cp - Patient Portal Instructions cp - Leadership Thank You Letter cp Addendum: 07/05/2024 15:00 Co-signature as Attending Physician, Feng Tian MD I agree with the assessment and c luis plan of care. Signatures: Dispatcher [employer] EDFeng Silva MD MD cha Page, Corey, PA PA cp Callie Berg, JADEN RN db Corrections: (The following items were deleted from the chart) 07/02 19:43 19:43 BASIC METABOLIC PANEL+C.LAB.BRZ ordered. EDMS EDMS 19:43 19:43 CBC+H.LAB.BRZ ordered. EDMS EDMS 19:43 19:43 HEPATIC FUNCTION+C.LAB.BRZ ordered. EDMS EDMS 19:43 19:43 MAGNESIUM+C.LAB.BRZ ordered. EDMS EDMS 19:43 19:43 PROBNP+C.LAB.BRZ ordered. EDMS EDMS 19:43 19:43 PROTIME (+INR)+COAG.LAB.BRZ ordered. EDMS EDMS 19:43 19:43 Troponin High Sensitivity+C.LAB.BRZ ordered. EDMS EDMS 19:43 19:43 PTT, ACTIVATED+COAG.LAB.BRZ ordered. EDMS EDMS 19:43 19:43 Chest Single View+RAD.RAD.BRZ ordered. EDMS EDMS 19:43 19:43 Abdomen Pelvis W Con+CT.RAD.BRZ ordered. EDMS EDMS : 21:40 doctor cp cp 22: 21:40 [facility] System cp cp : 21:40 Higher level of care cp cp : 21:40 Stable cp cp : 21:40 new cp cp : 21:40 have improved cp cp : 21:40 GI Bleed/ Gastrointestinal hemorrhage, unspecified cp cp
[2024-07-02 23:18] VITALS: TEMP 97.4
[2024-07-02 23:21] VITALS: O2SAT 100
[2024-07-02 23:22] VITALS: BP 157/65
--- NOTE | 2024-07-05 11:17 | EKG ---
Test Date: 2024-07-02 Test Time: 19:52:24 [place]: AF MEASUREMENT RESULTS: Intervals: Rate: 61 KS: 136 QRSD: 84 QT: 438 QTc: 440 [place]: P: 53 KS: 136 QRS: 64 T: 70 INTERPRETIVE STATEMENTS: Normal sinus rhythm Normal ECG Compared to ECG 02/09/2024 12:56:19 Sinus bradycardia no longer present Electronically Signed On 07-05-24 11:12:38 SOCIAL [employer] JOB TITLES by Segun Pope
== END 2024-07-02 22:51 | disposition home or self-care (01) ==
LOC: ER 18:56
DX: K92.2 Gastrointestinal hemorrhage, unspecified (principal); Z98.890 Other specified postprocedural states
CPT/HCPCS: 93005; 85025; 80048; 36415; 83735; 85610; 80076; 85730; 84484; 83880; 74177; 71045; 99284; Q9967